=== PATIENT | female | born 1945 | race Caucasian/White ===

== ENCOUNTER 2018-11-06 11:15 | Outpatient (CLI) | payer MEDICARE ==
--- NOTE | 2018-11-06 15:33 | XRAY Report ---
Reason: JOINT PAIN Procedure Date: 11/06/2018 Accession Number: [id number] / [id number] Procedure: WCP - Hip w/Pelvis 2-3V RT CPT Code: FULL RESULT: EXAM: RIGHT HIP RADIOGRAPHY. EXAM DATE: 11/06/2018 11:27 AM. CLINICAL HISTORY: Chronic right hip pain. COMPARISON: None. TECHNIQUE: 2 views. FINDINGS: Bones: No acute fracture identified. 2.5 cm geographic sclerosis of the right iliac bone adjacent to the inferior SI joint. Joints: Asymmetric joint space narrowing and mild marginal osteophyte of the right femoral head and acetabulum. Soft Tissues: Normal. No soft tissue swelling. IMPRESSION: 1. Asymmetric degenerative arthritis of the right hip. 2. Nonspecific 2.5 cm sclerotic focus in the right medial iliac bone as described. Finding is indeterminate between bone island versus a sclerotic lesion. Lacking comparison studies to confirm long-term stability, consider follow-up imaging in 6-12 months to assess for imaging stability. RADIA
== END 2018-11-06 11:16 | disposition home or self-care (01) ==
LOC: DI.WCP 11:15
PROVIDERS: ATTEND Physician Assistant
DX: M16.11 Unilateral primary osteoarthritis, right hip (principal); E78.5 Hyperlipidemia, unspecified; E11.9 Type 2 diabetes mellitus without complications; M25.50 Pain in unspecified joint
CPT/HCPCS: 36415; 80053; 80061; 83036; 83721; 85025; 85651

== ENCOUNTER 2018-11-06 11:33 | Outpatient (CLI) | payer MEDICARE ==
[2018-11-06 19:16] LABS: BASOPHILS # (AUTO) 0.1 10^3/uL (0.0-0.1); BASOPHILS % (AUTO) 0.5 %; EOSINOPHILS # (AUTO) 0.1 10^3/uL (0.0-0.7); EOSINOPHILS % (AUTO) 0.9 %; HGB - HEMOGLOBIN 15.8 g/dL (12.0-16.0); LYMPHOCYTES # (AUTO) 2.6 10^3/uL (1.5-3.5); LYMPHOCYTES % (AUTO) 20.7 %; MEAN CORPUSCULAR HEMOGLOBIN 29.8 pg (27.0-31.0); MEAN CORPUSCULAR HGB CONC 32.8 g/dL (32.0-36.0); MEAN CORPUSCULAR VOLUME 90.7 fL (81.0-99.0); MEAN PLATELET VOLUME 10.8 fL (7.9-10.8); MONOCYTES # (AUTO) 0.7 10^3/uL (0.0-1.0); MONOCYTES % (AUTO) 5.6 %; NEUTROPHILS % (AUTO) 72.3 %; PLT - PLATELET COUNT 266 10^3/uL (130-450); RED BLOOD COUNT 5.29 10^6/uL (4.20-5.40); RED CELL DISTRIBUTION WIDTH 13.4 % (12.0-15.0); WHITE BLOOD COUNT 12.5 x10^3/uL (4.8-10.8)
[2018-11-06 19:39] LABS: ALBUMIN/GLOBULIN RATIO 1.1 (1.0-2.2); ALKALINE PHOSPHATASE 96 IU/L (42-121); ALT ALANINE AMINOTRANSFERASE 16 IU/L (10-60); AST ASPARTATE AMINOTRANSFERASE 18 IU/L (10-42); BILIRUBIN,TOTAL 1.2 mg/dL (0.2-1.0); BUN - BLOOD UREA NITROGEN 16 mg/dL (6-20); CALCIUM 9.5 mg/dL (8.5-10.3); CARBON DIOXIDE - CO2 28 mmol/L (21-32); CHLORIDE 97 mmol/L (101-111); CHOL/HDL RATIO 4.6 (<4.4); CHOLESTEROL 245 mg/dL; CREATININE 0.8 mg/dL (0.4-1.0); GFR - MDRD 71 (>89); GLUCOSE 360 mg/dL (70-100); HDL CHOLESTEROL 53 mg/dL; LDL CHOLESTEROL,CALCULATED 154 mg/dL; LDL/HDL RATIO 2.9 (<4.4); SODIUM 137 mmol/L (135-145); TOTAL PROTEIN 7.5 g/dL (6.7-8.2); VLDL CHOLESTEROL 38 mg/dL
[2018-11-06 20:07] LABS: HB2 TOTAL 17.4 g/dL; HEMOGLOBIN A1C 1.71 g/dL; HEMOGLOBIN A1C % 11.1 % (4.6-6.2)
== END 2018-11-06 11:34 | disposition home or self-care (01) ==
LOC: LAB.WCP 11:33
PROVIDERS: ATTEND Physician Assistant
DX: E78.5 Hyperlipidemia, unspecified (principal); E11.9 Type 2 diabetes mellitus without complications; M25.50 Pain in unspecified joint
CPT/HCPCS: 36415; 80053; 80061; 83036; 83721; 85025; 85651

== ENCOUNTER 2018-11-07 09:02 | Outpatient (CLI) | payer MEDICARE | END 2018-11-07 09:03 | disposition home or self-care (01) | LOC: DI 09:02 | PROVIDERS: ATTEND Physician Assistant | DX: R42 Dizziness and giddiness (principal); I10 Essential (primary) hypertension; I51.7 Cardiomegaly | CPT/HCPCS: 93306 ==

== ENCOUNTER 2018-11-10 20:18 | Outpatient (CLI) | payer MEDICARE | END 2018-11-10 20:19 | disposition critical access hospital (66) | LOC: EMS 20:18 | PROVIDERS: ATTEND Surgery | DX: R53.1 Weakness (principal); R06.02 Shortness of breath; E11.9 Type 2 diabetes mellitus without complications; Z79.4 Long term (current) use of insulin | CPT/HCPCS: A0425; A0427 ==

== ENCOUNTER 2018-11-10 20:35 | Emergency (ER) | payer MEDICARE ==
[2018-11-10 21:11] LABS: VBG PCO2 33.4 mmHg (41-51); VBG PH 7.46 (7.31-7.41); VBG PO2 51.5 mmHg (25-47)
[2018-11-10 21:12] LABS: VBG BASE EXCESS 0.2 mmol/L (-2 - +2); VBG TOTAL CO2 24.2 mmol/L (24-29)
[2018-11-10 21:15] LABS: BASOPHILS # (AUTO) 0.1 10^3/uL (0.0-0.1); BASOPHILS % (AUTO) 0.8 %; EOSINOPHILS # (AUTO) 0.1 10^3/uL (0.0-0.7); EOSINOPHILS % (AUTO) 1.5 %; HGB - HEMOGLOBIN 15.2 g/dL (12.0-16.0); LYMPHOCYTES # (AUTO) 2.6 10^3/uL (1.5-3.5); LYMPHOCYTES % (AUTO) 28.1 %; MEAN CORPUSCULAR HEMOGLOBIN 29.9 pg (27.0-31.0); MEAN CORPUSCULAR VOLUME 90.8 fL (81.0-99.0); MEAN PLATELET VOLUME 10.1 fL (7.9-10.8); MONOCYTES # (AUTO) 0.5 10^3/uL (0.0-1.0); MONOCYTES % (AUTO) 5.2 %; NEUTROPHILS # (AUTO) 5.9 10^3/uL (1.5-6.6); NEUTROPHILS % (AUTO) 64.4 %; PLT - PLATELET COUNT 193 10^3/uL (130-450); RED BLOOD COUNT 5.08 10^6/uL (4.20-5.40); RED CELL DISTRIBUTION WIDTH 13.3 % (12.0-15.0); WHITE BLOOD COUNT 9.1 x10^3/uL (4.8-10.8)
[2018-11-10 21:24] LABS: ALBUMIN 3.8 g/dL (3.2-5.5); ALBUMIN/GLOBULIN RATIO 1.2 (1.0-2.2); BILIRUBIN,TOTAL 0.6 mg/dL (0.2-1.0); CALCIUM 9.1 mg/dL (8.5-10.3); CREATININE 0.7 mg/dL (0.4-1.0); TOTAL PROTEIN 7.1 g/dL (6.7-8.2)
[2018-11-10 21:31] LABS: INR 1.1 (0.8-1.2); PT - PROTHROMBIN TIME 12.5 secs (9.9-12.6)
--- NOTE | 2018-11-10 21:33 | XRAY Report ---
Reason: cough Procedure Date: 11/10/2018 Accession Number: [id number] / [id number] Procedure: XR - Chest 1 View X-Ray CPT Code: 84768 FULL RESULT: EXAM: CHEST RADIOGRAPHY EXAM DATE: 11/10/2018 09:16 PM. CLINICAL HISTORY: Cough and shortness of breath for 3 weeks. COMPARISON: None. TECHNIQUE: 1 view. FINDINGS: Lungs/Pleura: No focal opacities evident. No pleural effusion. No pneumothorax. Mediastinum: Within exam limitations, the cardiomediastinal contour is normal. Other: None. IMPRESSION: Normal single view chest. RADIA
[2018-11-10 21:37] LABS: BILIRUBIN,URINE NEGATIVE (NEGATIVE); GLUCOSE, URINE (UA) >=1000 mg/dL (NEGATIVE); KETONES,URINE (UA) NEGATIVE (NEGATIVE); LEUKOCYTE ESTERASE, URINE NEGATIVE (NEGATIVE); NITRITE,URINE NEGATIVE (NEGATIVE); OCCULT BLOOD,URINE SMALL (NEGATIVE); PH,URINE 5.5 PH (5.0-7.5); PROTEIN,URINE NEGATIVE (NEGATIVE); UROBILINOGEN,URINE 0.2 (NORMAL) E.U./dL (NORMAL)
[2018-11-10 21:41] LABS: CLARITY,URINE CLEAR (CLEAR)
[2018-11-10 21:44] LABS: BACTERIA,URINE Many /HPF (None Seen); RBC,URINE 0-5 /HPF (0-5); SQUAMOUS EPITHELIAL CELL,UR MOD Squamous (<= Few)
[2018-11-10] MEDS ORDERED: INSULIN REGULAR HUMAN 100 UNIT/1 ML 10 ML MDV IVP STA (22:18)
[2018-11-10] MEDS ORDERED: cloNIDine 0.1 MG TABLET PO STA (22:21)
[2018-11-10] MEDS ORDERED: ONDANSETRON 4 MG/2 ML VIAL IVP STA (22:21)
[2018-11-10] MEDS ORDERED: SODIUM CHLORIDE 0.9% 1,000 ML IV ONE (22:21)
[2018-11-10] MEDS ORDERED: LISINOPRIL 5 MG TABLET PO STA (22:21)
--- NOTE | 2018-11-10 23:55 | ED Physician Documentation ---
History of Present Illness - Stated complaint Stated Complaint: NOT FEELING WELL - Chief complaint Chief Complaint: General - History obtained from History obtained from: Patient - History of Present Illness Timing: How many hours ago (1) Pain level max: 0 Pain level now: 0 Severity Comments: mild Quality: weak Radiates to: none Improved by: nothing Worsened by: nothing Associated symptoms: lightheadedness, high blood pressure, no chest pain, no shortness of breath, no nausea, no diaphoresis Review of Systems Constitutional: reports: Reviewed and negative Eyes: reports: Reviewed and negative Ears: reports: Reviewed and negative Nose: reports: Reviewed and negative Throat: reports: Reviewed and negative Cardiac: reports: Reviewed and negative Respiratory: reports: Reviewed and negative GI: reports: Reviewed and negative : reports: Reviewed and negative Skin: reports: Reviewed and negative Musculoskeletal: reports: Reviewed and negative Neurologic: reports: Reviewed and negative Psychiatric: reports: Reviewed and negative Endocrine: reports: Reviewed and negative Immunocompromised: reports: Reviewed and negative PD PAST MEDICAL HISTORY - Past Medical History Past Medical History: Yes Cardiovascular: Hypertension Endocrine/Autoimmune: Type 2 diabetes Psych: Depression Musculoskeletal: Osteoarthritis, Fibromyalgia Other Past Medical History: Reviewed - Past Surgical History Past Surgical History: Yes Ortho: Knee replacement Other past surgical history: Reviewed - Present Medications Home Medications: Ambulatory Orders Medication Instructions Recorded Confirmed Atorvastatin Calcium 40 mg PO QPM 11/10/18 11/10/18 Insulin Glargine [Lantus Solostar] 10 units SQ QPM 11/10/18 11/10/18 Lisinopril 10 mg PO QPM 11/10/18 11/10/18 Meloxicam 15 mg PO QPM 11/10/18 11/10/18 - Allergies Allergies/Adverse Reactions: Allergies Allergy/AdvReac Type Severity Reaction Status Date / Time Penicillins Allergy Anaphylaxis Verified 11/10/18 20:38 - Social History Does the pt smoke?: No Smoking Status: Never smoker Does the pt drink ETOH?: Yes ETOH Use: Wine Does the pt have substance abuse?: No - Family History Family history: reports: Other (Reviewed and not pertinent) PD ED PE NORMAL - Vitals Vital signs reviewed: Yes - General General: Alert and oriented X 3, No acute distress - HEENT HEENT: PERRL - Neck Neck: Supple, no meningeal sign - Cardiac Cardiac: RRR, No murmur - Respiratory Respiratory: Clear bilaterally - Abdomen Abdomen: Normal bowel sounds, Soft, Non tender, Non distended - Derm Derm: Warm and dry - Extremities Extremities: No deformity - Neuro Neuro: Alert and oriented X 3 - Psych Psych: Normal mood, Normal affect Results - Vitals Vitals: Vital Signs - 24 hr 11/10/18 11/10/18 11/10/18 20:38 20:46 21:10 Temperature 36.5 C Heart Rate 94 88 79 Respiratory 18 18 16 Rate Blood Pressure 174/78 H 174/78 H 196/107 H O2 Saturation 97 97 96 11/10/18 11/10/18 11/10/18 22:28 22:33 23:21 Temperature Heart Rate 76 73 82 Respiratory 20 13 17 Rate Blood Pressure 175/83 H 173/78 H 166/83 H O2 Saturation 95 95 95 Oxygen O2 Source Room air - Labs Labs: Laboratory Tests 11/10/18 11/10/18 11/10/18 21:05 21:05 21:05 WBC 9.1 RBC 5.08 Hgb 15.2 Hct 46.1 MCV 90.8 MCH 29.9 MCHC 33.0 RDW 13.3 Plt Count 193 MPV 10.1 Neut # (Auto) 5.9 Lymph # (Auto) 2.6 [place] # (Auto) 0.5 Eos # (Auto) 0.1 Baso # (Auto) 0.1 Absolute Nucleated RBC 0.01 Nucleated RBC % 0.1 PT 12.5 INR 1.1 VBG pH VBG pCO2 VBG pO2 VBG HCO3 VBG Total CO2 VBG O2 Saturation VBG Base Excess Sodium 137 Potassium 3.9 Chloride 101 Carbon Dioxide 25 Anion Gap 11.0 BUN 21 H Creatinine 0.7 Estimated GFR (MDRD) 83 L Glucose 400 H Lactic Acid Calcium 9.1 Total Bilirubin 0.6 AST 16 ALT 14 Alkaline Phosphatase 106 Troponin I Total Protein 7.1 Albumin 3.8 Globulin 3.3 Albumin/Globulin Ratio 1.2 Lipase 33 Urine Color Urine Clarity Urine pH Ur Specific [place] Urine Protein Urine Glucose (UA) Urine Ketones Urine Occult Blood Urine Nitrite Urine Bilirubin Urine Urobilinogen Ur Leukocyte Esterase Urine RBC Urine WBC Ur Squamous Epith Cells Urine Bacteria Ur Microscopic Review Urine Culture Comments 11/10/18 11/10/18 11/10/18 21:05 21:05 21:05 WBC RBC Hgb Hct MCV MCH MCHC RDW Plt Count MPV Neut # (Auto) Lymph # (Auto) [place] # (Auto) Eos # (Auto) Baso # (Auto) Absolute Nucleated RBC Nucleated RBC % PT INR VBG pH 7.460 H VBG pCO2 33.4 L VBG pO2 51.5 H VBG HCO3 23.2 VBG Total CO2 24.2 VBG O2 Saturation 88.1 H VBG Base Excess 0.2 Sodium Potassium Chloride Carbon Dioxide Anion Gap BUN Creatinine Estimated GFR (MDRD) Glucose Lactic Acid 1.7 Calcium Total Bilirubin AST ALT Alkaline Phosphatase Troponin I < 0.04 Total Protein Albumin Globulin Albumin/Globulin Ratio Lipase Urine Color Urine Clarity Urine pH Ur Specific [place] Urine Protein Urine Glucose (UA) Urine Ketones Urine Occult Blood Urine Nitrite Urine Bilirubin Urine Urobilinogen Ur Leukocyte Esterase Urine RBC Urine WBC Ur Squamous Epith Cells Urine Bacteria Ur Microscopic Review Urine Culture Comments 11/10/18 11/10/18 21:30 23:15 WBC RBC Hgb Hct MCV MCH MCHC RDW Plt Count MPV Neut # (Auto) Lymph # (Auto) [place] # (Auto) Eos # (Auto) Baso # (Auto) Absolute Nucleated RBC Nucleated RBC % PT INR VBG pH VBG pCO2 VBG pO2 VBG HCO3 VBG Total CO2 VBG O2 Saturation VBG Base Excess Sodium Potassium Chloride Carbon Dioxide Anion Gap BUN Creatinine Estimated GFR (MDRD) Glucose Lactic Acid Calcium Total Bilirubin AST ALT Alkaline Phosphatase Troponin I < 0.04 Total Protein Albumin Globulin Albumin/Globulin Ratio Lipase Urine Color YELLOW Urine Clarity CLEAR Urine pH 5.5 Ur Specific [place] 1.015 Urine Protein NEGATIVE Urine Glucose (UA) >=1000 H Urine Ketones NEGATIVE Urine Occult Blood SMALL H Urine Nitrite NEGATIVE Urine Bilirubin NEGATIVE Urine Urobilinogen 0.2 (NORMAL) Ur Leukocyte Esterase NEGATIVE Urine RBC 0-5 Urine WBC 4-5 Ur Squamous Epith Cells MOD Squamous H Urine Bacteria Many H Ur Microscopic Review INDICATED Urine Culture Comments NOT INDICATED PD MEDICAL DECISION MAKING - ED course Complexity details: reviewed results, re-evaluated patient, considered differential, d/w patient, d/w family ED course: 72-year-old female presents with generalized weakness. Blood sugar and glucose are elevated. EKG, chest x-ray, serial troponins unremarkable. No clinical evidence of infection. Patient felt better after blood pressure and glucose were controlled. Discharged with primary care follow-up. No evidence of ACS, PE, dissection or other acute process. Departure - Departure Disposition: 01 Home, Self Care Clinical Impression: Blood glucose elevated, Elevated blood pressure reading Instructions: Hypertension Control, Hyperglycemia Follow-Up: Brandi Garvey PA [Primary Care Provider] - Comments: Follow-up with PCP within 24 hours. Return with worsening symptoms.
[2018-11-11 00:06] VITALS: BP 141/83
== END 2018-11-11 00:14 | disposition home or self-care (01) ==
LOC: EDBD → EDUNIT# → ED 20:35
DX: E11.65 Type 2 diabetes mellitus with hyperglycemia (principal); I10 Essential (primary) hypertension; Z79.4 Long term (current) use of insulin; Z96.659 Presence of unspecified artificial knee joint
CPT/HCPCS: 36415; 71045; 80053; 81001; 82803; 83605; 83690; 84484; 85025; 85610; 87040; 93005; 96361; 96374; 99283; 99284; A9270; J1815; 81003; 87086

== ENCOUNTER 2018-11-20 08:00 | Outpatient (CLI) | payer MEDICARE ==
[2018-11-20 19:16] LABS: ALBUMIN 3.6 g/dL (3.2-5.5); BILIRUBIN,TOTAL 0.9 mg/dL (0.2-1.0); CALCIUM 9.1 mg/dL (8.5-10.3); CREATININE 0.7 mg/dL (0.4-1.0); TOTAL PROTEIN 7.3 g/dL (6.7-8.2)
[2018-11-20 19:47] LABS: BASOPHILS % (AUTO) 0.2 %; EOSINOPHILS # (AUTO) 0.1 10^3/uL (0.0-0.7); HGB - HEMOGLOBIN 15.1 g/dL (12.0-16.0); LYMPHOCYTES # (AUTO) 2.4 10^3/uL (1.5-3.5); LYMPHOCYTES % (AUTO) 20.9 %; MEAN CORPUSCULAR HEMOGLOBIN 30.2 pg (27.0-31.0); MEAN CORPUSCULAR HGB CONC 33.2 g/dL (32.0-36.0); MEAN PLATELET VOLUME 10.6 fL (7.9-10.8); MONOCYTES # (AUTO) 0.6 10^3/uL (0.0-1.0); MONOCYTES % (AUTO) 5.6 %; NEUTROPHILS # (AUTO) 8.4 10^3/uL (1.5-6.6); NEUTROPHILS % (AUTO) 72.3 %; PLT - PLATELET COUNT 258 10^3/uL (130-450); RED BLOOD COUNT 4.99 10^6/uL (4.20-5.40); RED CELL DISTRIBUTION WIDTH 13.2 % (12.0-15.0); WHITE BLOOD COUNT 11.6 x10^3/uL (4.8-10.8)
== END 2018-11-20 08:01 | disposition home or self-care (01) ==
LOC: LAB.WCP 08:00
PROVIDERS: ATTEND Physician Assistant
DX: E11.9 Type 2 diabetes mellitus without complications (principal)
CPT/HCPCS: 36415; 80053; 85025

== ENCOUNTER 2018-11-30 16:24 | Outpatient (CLI) | payer MEDICARE ==
[2018-11-30] MEDS ORDERED: GADOBUTROL 10 MMOL/10 ML VIAL ONE (17:10)
[2018-11-30] MEDS ORDERED: GADOBUTROL 10 MMOL/10 ML VIAL IVP ONE (18:40)
--- NOTE | 2018-12-01 04:02 | MRI Report ---
Reason: TIA,HX OF SYNCOPE AND COLLAPSE Procedure Date: 11/30/2018 Accession Number: [id number] / [id number] Procedure: MRI - Brain W/WO CPT Code: FULL RESULT: EXAM: MRI BRAIN WITHOUT AND WITH CONTRAST EXAM DATE: 11/30/2018 05:37 PM. CLINICAL HISTORY: TIA,HX OF SYNCOPE AND COLLAPSE. COMPARISON: None. TECHNIQUE: Multiplanar, multisequence T1-weighted and fluid-sensitive MR sequences of the brain were performed. Sequences optimized for routine evaluation. Other: None. IV Contrast: Gadavist 10 mL.. FINDINGS: Brain Volume: Normal for age. Parenchyma: No acute hemorrhage, mass, or infarct. There is moderate chronic microvascular ischemic change scattered in the periventricular, deep, and subcortical white matter of both cerebral hemispheres and in the kirill. No restricted diffusion. No abnormal enhancement. Ventricles/Cisterns: No hydrocephalus. No abnormal extra-axial fluid collection or hemorrhage. Orbits: Symmetric and unremarkable. Sella [place]: Unremarkable. IAC: Symmetric and unremarkable. Vasculature: Normal signal flow void is seen in the major arterial structures at the skull base. The dural sinuses are patent and enhance normally. Sinuses: No acute sinus disease. Bones: No focal pathologic appearing marrow signal changes. Other: None. IMPRESSION: 1. No acute intracranial abnormality. 2. Moderate chronic microvascular ischemic change. Otherwise unremarkable MRI brain without and with contrast. 3. No intracranial mass lesion, mass-effect, hydrocephalus, or abnormal enhancement. [facility]
--- NOTE | 2018-12-01 04:08 | MRI Report ---
Reason: TIA,HX OF SYNCOPE AND COLLAPSE Procedure Date: 11/30/2018 Accession Number: [id number] / [id number] Procedure: MRI - Angio Brain W/O (MRA) CPT Code: FULL RESULT: EXAM MRA BRAIN EXAM DATE: 11/30/2018 05:04 PM. CLINICAL HISTORY: TIA,HX OF SYNCOPE AND COLLAPSE. COMPARISON: None. TECHNIQUE: Multiplanar, multisequence MRA sequences of the brain were performed. Other: None. Post-processing: Multiplanar 3D MIP reconstructions. IV Contrast: None. FINDINGS: The petrous, cavernous, and supraclinoid segments of both internal carotid arteries are patent without evidence of stenosis. The middle cerebral and anterior cerebral artery distributions are patent and unremarkable bilaterally. Both vertebral arteries join to form the basilar artery. The distal vertebral and basilar arteries are patent and appear normal in caliber. The posterior cerebral arteries and remainder of the posterior circulation are unremarkable. No evidence of large vessel occlusion or intracranial stenosis. No aneurysm or AVM is identified. IMPRESSION: 1. Normal MRA of intracranial circulation. [facility]
--- NOTE | 2018-12-01 04:14 | MRI Report ---
Reason: TIA,HX OF SYNCOPE AND COLLAPSE Procedure Date: 11/30/2018 Accession Number: [id number] / [id number] Procedure: MRI - Angio Neck W/WO (MRA) CPT Code: FULL RESULT: EXAM: MR ANGIOGRAM NECK WITHOUT AND WITH CONTRAST EXAM DATE: 11/30/2018 06:06 PM. CLINICAL HISTORY: TIA,HX OF SYNCOPE AND COLLAPSE. COMPARISON: None. TECHNIQUE: Multiplanar, multisequence MRA sequences of the neck were performed. Other: None. Post-processing: Multiplanar 3D MIP reconstructions. IV Contrast: Gadavist 10 mL.. Evaluation of arterial stenosis is based on a NASCET method of measurement. FINDINGS: Aortic arch: Visualized aortic arch is unremarkable. Great vessels are patent and appear normal. Right carotid artery: The common carotid, internal carotid, and external carotid arteries are widely patent. No evidence of stenosis or dissection present Left carotid artery: The common carotid, internal carotid, and external carotid arteries are widely patent. No evidence of stenosis or dissection. Vertebral arteries: Both vertebral arteries are patent and contribute to the basilar artery. Left vertebral artery is dominant. No evidence of vertebral artery stenosis or dissection. There is moderate enlargement of the right thyroid lobe. No definite focal lesions are identified. This may represent unilateral goiter. This could be better assessed with a thyroid sonogram. IMPRESSION: 1. Normal MRA neck. No evidence of carotid or vertebral artery stenosis or dissection. 2. Moderate asymmetric enlargement of right thyroid lobe. This may represent unilateral goiter. This could be better assessed with a thyroid sonogram. [facility]
== END 2018-11-30 16:25 | disposition home or self-care (01) ==
LOC: DI 16:24
PROVIDERS: ATTEND Physician Assistant
DX: G45.9 Transient cerebral ischemic attack, unspecified (principal); R55 Syncope and collapse; E04.9 Nontoxic goiter, unspecified
CPT/HCPCS: 70544; 70549; 70553; A9585

== ENCOUNTER 2019-04-29 08:00 | Outpatient (CLI) | payer MEDICAID, MEDICARE ==
[2019-04-29 12:45] LABS: BASOPHILS % (AUTO) 0.5 %; EOSINOPHILS # (AUTO) 0.2 10^3/uL (0.0-0.7); EOSINOPHILS % (AUTO) 2.7 %; HGB - HEMOGLOBIN 13.4 g/dL (12.0-16.0); LYMPHOCYTES # (AUTO) 3.4 10^3/uL (1.5-3.5); MEAN CORPUSCULAR HEMOGLOBIN 30.5 pg (27.0-31.0); MEAN CORPUSCULAR HGB CONC 32.6 g/dL (32.0-36.0); MEAN CORPUSCULAR VOLUME 93.4 fL (81.0-99.0); MEAN PLATELET VOLUME 11.9 fL (7.9-10.8); MONOCYTES # (AUTO) 0.6 10^3/uL (0.0-1.0); MONOCYTES % (AUTO) 7.3 %; PLT - PLATELET COUNT 241 10^3/uL (130-450); RED CELL DISTRIBUTION WIDTH 12.7 % (12.0-15.0); WHITE BLOOD COUNT 8.3 x10^3/uL (4.8-10.8)
[2019-04-29 13:03] LABS: ALBUMIN 3.5 g/dL (3.2-5.5); ALKALINE PHOSPHATASE 88 IU/L (42-121); ALT ALANINE AMINOTRANSFERASE 15 IU/L (10-60); AST ASPARTATE AMINOTRANSFERASE 14 IU/L (10-42); BILIRUBIN,TOTAL 0.8 mg/dL (0.2-1.0); BUN - BLOOD UREA NITROGEN 25 mg/dL (6-20); CARBON DIOXIDE - CO2 25 mmol/L (21-32); CHLORIDE 105 mmol/L (101-111); CHOL/HDL RATIO 2.6 (<4.4); CHOLESTEROL 138 mg/dL; CREATININE 0.7 mg/dL (0.4-1.0); GFR - MDRD 82 (>89); GLUCOSE 174 mg/dL (70-100); HDL CHOLESTEROL 53 mg/dL; LDL CHOLESTEROL,CALCULATED 62 mg/dL; LDL/HDL RATIO 1.2 (<4.4); SODIUM 139 mmol/L (135-145); TOTAL PROTEIN 7.1 g/dL (6.7-8.2); VLDL CHOLESTEROL 23 mg/dL
[2019-04-29 13:06] LABS: HB2 TOTAL 13.7 g/dL; HEMOGLOBIN A1C 0.77 g/dL; HEMOGLOBIN A1C % 7.3 % (4.6-6.2)
== END 2019-04-29 23:59 | disposition home or self-care (01) ==
LOC: LAB.WCP 08:00
PROVIDERS: ATTEND Physician Assistant
DX: E11.9 Type 2 diabetes mellitus without complications (principal); E78.5 Hyperlipidemia, unspecified
CPT/HCPCS: 36415; 80053; 80061; 83036; 83721; 85025

== ENCOUNTER 2019-07-21 15:30 | Outpatient (CLI) | payer MEDICARE | END 2019-07-21 23:59 | disposition home or self-care (01) | LOC: LAB 15:30 | PROVIDERS: ATTEND Physician Assistant | DX: R30.0 Dysuria (principal) | CPT/HCPCS: 81002; 87086; 87181 ==

== ENCOUNTER 2019-08-14 17:08 | Outpatient (CLI) | payer MEDICARE ==
[2019-08-14 17:43] LABS: CALCIUM 9.1 mg/dL (8.5-10.3); CREATININE 0.8 mg/dL (0.4-1.0)
[2019-08-14] MEDS ORDERED: GADOBUTROL 15 MMOL/15 ML VIAL ONE (18:36)
[2019-08-14] MEDS ORDERED: GADOBUTROL 15 MMOL/15 ML VIAL IVP ONE (18:53)
--- NOTE | 2019-08-15 08:09 | MRI Report ---
Reason: RT MEDIAL ILIAC BONE LESION Procedure Date: 08/14/2019 Accession Number: [id number] / [id number] Procedure: MRI - Pelvis W/WO CPT Code: Final Report FULL RESULT: EXAM: MRI PELVIS WITHOUT AND WITH CONTRAST EXAM DATE: 08/14/2019 07:14 PM. CLINICAL HISTORY: Right medial iliac bone lesion on x-ray. COMPARISON: HIP W/PELVIS 2-3V RT 11/06/2018 11:11 AM. TECHNIQUE: Multiplanar, multisequence T1-weighted and fluid-sensitive sequences of the pelvis before and after administration of intravenous contrast. IV contrast: 12 mL of Gadavist. Other: None. FINDINGS: Bones: There is a focal low T1, low T2 signal nonenhancing lesion in the medial aspect of the right ilium adjacent to the sacroiliac joint consistent with an osteoma. There are no foci of marrow edema or enhancing marrow lesions to suggest neoplastic pathology. Lower Lumbar Spine: Endplate osteophytes are visible at L4-L5 and L5-S1 consistent with degenerative change. Sacroiliac Joints: The sacroiliac joints appear unremarkable. There is moderate erosion of the hyaline cartilage of the right hip with acetabular and femoral head osteophyte formation. There are milder changes on the left. The findings are consistent with bilateral osteoarthritis worse on the right. Symphysis Pubis: Unremarkable. Musculature: There is moderate fatty atrophy of the glutei. Pelvic Cavity: The visualized bowel, bladder, and reproductive organs are unremarkable. No lymphadenopathy. No free fluid in the pelvis. Other: The visualized sciatic nerves are unremarkable. No bursitis. The subcutaneous tissues are unremarkable. No abscess or cellulitis. IMPRESSION: 1. 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 2. Moderate degenerative change at the L4-L5 and L5-S1 levels. 3. Moderate right hip osteoarthritis. Mild left hip osteoarthritis. 4. Moderate atrophy of the glutei. RADIA
== END 2019-08-14 17:09 | disposition home or self-care (01) ==
LOC: LAB 17:08
PROVIDERS: ATTEND Physician Assistant
DX: E11.9 Type 2 diabetes mellitus without complications (principal); D16.8 Benign neoplasm of pelvic bones, sacrum and coccyx
CPT/HCPCS: 36415; 72197; 80048; A9585; 87086

== ENCOUNTER 2019-10-27 13:42 | Outpatient (CLI) | payer MEDICARE ==
[2019-10-27] MEDS ORDERED: IOTHALAMATE MEGLUMINE 50 ML VIAL ONE (14:17)
[2019-10-27] MEDS ORDERED: BUFFERED LIDOCAINE 10 ML SYRINGE ONE (14:17)
[2019-10-27] MEDS ORDERED: BUFFERED LIDOCAINE 10 ML SYRINGE IU ONE (16:15)
[2019-10-27] MEDS ORDERED: IOTHALAMATE MEGLUMINE 50 ML VIAL IVP ONE (16:15)
[2019-10-27] MEDS ORDERED: ROPIVACAINE 0.5% PF 20 ML AMPULE EP ONE (16:15)
[2019-10-27] MEDS ORDERED: TRIAMCINOLONE 40 MG/ML VIAL IM ONE (16:15)
--- NOTE | 2019-10-28 13:54 | XRAY Report ---
Reason: RT HIP JOINT PAIN Procedure Date: 10/27/2019 Accession Number: [id number] / [id number] Procedure: FL - Inj/Aspiration Major Joint CPT Code: Final Report FULL RESULT: EXAM: RIGHT HIP STEROID INJECTION WITH FLUOROSCOPIC GUIDANCE EXAM DATE: 10/27/2019 02:30 PM. CLINICAL HISTORY: Right hip joint pain. COMPARISON: None. TECHNIQUE: The risks, benefits, and alternatives of the procedure were discussed with the patient. All questions were answered. Written and verbal consent were obtained. The hip joint was marked under fluoroscopy and prepped and draped in a sterile manner. Local anesthesia was performed with 1% lidocaine. A 22-gauge needle was then inserted into the hip joint, positioning was confirmed by injection of a small quantity of iodinated contrast, Conray. 5 mL of a solution containing 0.5% ropivacaine, 4 mL and 1 mL of 40 mg triamcinolone was then injected. The needle was removed without immediate complication. Other: None. Fluoroscopy Time: 0.1 minutes. Number of Images: 3. FINDINGS: Bones and Joints: No fracture or subluxation. Injection: Fluoroscopic images demonstrate needle placement and contrast in the hip joint. IMPRESSION: Successful fluoroscopically guided steroid injection of the hip. RADIA
== END 2019-10-27 13:43 | disposition home or self-care (01) ==
LOC: DI 13:42
PROVIDERS: ATTEND Orthopaedic Surgery Sports Medicine
DX: M25.551 Pain in right hip (principal)
CPT/HCPCS: 20610; Q9961

== ENCOUNTER 2019-11-12 17:06 | Outpatient (CLI) | payer MEDICARE | END 2019-11-12 17:07 | disposition home or self-care (01) | LOC: COV 17:06 | PROVIDERS: ATTEND Family Medicine | DX: R05 Cough (principal) ==

== ENCOUNTER 2020-02-16 10:30 | Outpatient (CLI) | payer MEDICARE ==
[2020-02-16 12:50] LABS: BASOPHILS % (AUTO) 0.4 %; EOSINOPHILS # (AUTO) 0.2 10^3/uL (0.0-0.7); EOSINOPHILS % (AUTO) 2.2 %; HGB - HEMOGLOBIN 12.8 g/dL (12.0-16.0); LYMPHOCYTES # (AUTO) 2.7 10^3/uL (1.5-3.5); LYMPHOCYTES % (AUTO) 28.1 %; MEAN CORPUSCULAR HEMOGLOBIN 29.5 pg (27.0-31.0); MEAN CORPUSCULAR HGB CONC 31.4 g/dL (32.0-36.0); MEAN CORPUSCULAR VOLUME 93.8 fL (81.0-99.0); MEAN PLATELET VOLUME 11.7 fL (7.9-10.8); MONOCYTES # (AUTO) 0.7 10^3/uL (0.0-1.0); MONOCYTES % (AUTO) 7.3 %; NEUTROPHILS # (AUTO) 5.8 10^3/uL (1.5-6.6); NEUTROPHILS % (AUTO) 61.6 %; PLT - PLATELET COUNT 240 10^3/uL (130-450); RED BLOOD COUNT 4.34 10^6/uL (4.20-5.40); RED CELL DISTRIBUTION WIDTH 12.7 % (12.0-15.0); WHITE BLOOD COUNT 9.4 x10^3/uL (4.8-10.8)
[2020-02-16 12:59] LABS: ALBUMIN 3.7 g/dL (3.2-5.5); ALBUMIN/GLOBULIN RATIO 1.1 (1.0-2.2); BILIRUBIN,TOTAL 0.7 mg/dL (0.2-1.0); CALCIUM 8.7 mg/dL (8.5-10.3); CREATININE 0.8 mg/dL (0.4-1.0); TOTAL PROTEIN 7.1 g/dL (6.7-8.2)
[2020-02-16 13:15] LABS: HB2 TOTAL 13.6 g/dL; HEMOGLOBIN A1C 0.8 g/dL; HEMOGLOBIN A1C % 7.5 % (4.6-6.2)
== END 2020-02-16 23:59 | disposition home or self-care (01) ==
LOC: LAB.WCP 10:30
PROVIDERS: ATTEND Physician Assistant
DX: I10 Essential (primary) hypertension (principal); E11.9 Type 2 diabetes mellitus without complications
CPT/HCPCS: 36415; 80053; 83036; 85025

== ENCOUNTER 2020-05-10 12:21 | Emergency (ER) | payer MEDICARE ==
[2020-05-10 12:51] LABS: BASOPHILS % (AUTO) 0.3 %; EOSINOPHILS # (AUTO) 0.2 10^3/uL (0.0-0.7); EOSINOPHILS % (AUTO) 1.1 %; HGB - HEMOGLOBIN 14.1 g/dL (12.0-16.0); LYMPHOCYTES # (AUTO) 2.7 10^3/uL (1.5-3.5); MEAN CORPUSCULAR HEMOGLOBIN 30.3 pg (27.0-31.0); MEAN CORPUSCULAR HGB CONC 32.7 g/dL (32.0-36.0); MEAN CORPUSCULAR VOLUME 92.7 fL (81.0-99.0); MEAN PLATELET VOLUME 10.9 fL (7.9-10.8); MONOCYTES # (AUTO) 0.8 10^3/uL (0.0-1.0); MONOCYTES % (AUTO) 5.8 %; NEUTROPHILS # (AUTO) 10.4 10^3/uL (1.5-6.6); NEUTROPHILS % (AUTO) 73.1 %; PLT - PLATELET COUNT 279 10^3/uL (130-450); RED BLOOD COUNT 4.65 10^6/uL (4.20-5.40); RED CELL DISTRIBUTION WIDTH 13.1 % (12.0-15.0); WHITE BLOOD COUNT 14.2 x10^3/uL (4.8-10.8)
[2020-05-10 13:04] LABS: ALBUMIN 3.6 g/dL (3.2-5.5); ALBUMIN/GLOBULIN RATIO 0.9 (1.0-2.2); BILIRUBIN,TOTAL 0.6 mg/dL (0.2-1.0); CALCIUM 9.1 mg/dL (8.5-10.3); CREATININE 0.9 mg/dL (0.4-1.0); TOTAL PROTEIN 7.5 g/dL (6.7-8.2)
--- NOTE | 2020-05-10 13:34 | ED Physician Documentation ---
PD HPI ALTERED MENTAL STATUS - Stated complaint Stated Complaint: BODY PX, WEAKNESS - Chief complaint Chief Complaint: General - History obtained from History obtained from: Patient - History of Present Illness Timing - onset: How many weeks ago (1) Timing - duration: Weeks (1) Timing - details: Gradual onset, Still present (He has had a week of feeling general weakness and fatigue with some mild discomfort in the lower abdomen. She states normal bowel movement a couple of days ago and that helped some of the lower abdominal pains. Still persists with weakness and malaise.) Quality / character: Other (general weakness). No: Confused, Disoriented Contributing factors: Diabetic. No: Recent med change, Recent illness, Substance abuse Basline status: Alert and oriented X 3, Ambulatory Similar symptoms before: Has not had sx before Recently seen: Not recently seen Review of Systems Constitutional: reports: Myalgias, Fatigue. denies: Fever Nose: denies: Rhinorrhea / runny nose, Congestion Throat: denies: Sore throat Cardiac: denies: Chest pain / pressure Respiratory: denies: Dyspnea, Cough GI: reports: Nausea. denies: Abdominal Pain, Vomiting, Diarrhea : reports: Incontinent (chronically). denies: Dysuria Neurologic: reports: Generalized weakness. denies: Near syncope, Altered mental status, Headache PD PAST MEDICAL HISTORY - Past Medical History Cardiovascular: Hypertension Endocrine/Autoimmune: Type 2 diabetes Psych: Depression Musculoskeletal: Osteoarthritis, Fibromyalgia - Past Surgical History Past Surgical History: Yes Ortho: Knee replacement - Present Medications Home Medications: Ambulatory Orders Medication Instructions Recorded Confirmed Atorvastatin Calcium 40 mg PO QPM 11/10/18 11/10/18 Insulin Glargine [Lantus Solostar] 10 units SQ QPM 11/10/18 11/10/18 Meloxicam 15 mg PO QPM 11/10/18 11/10/18 lisinopriL [Lisinopril] 10 mg PO QPM 11/10/18 11/10/18 Cephalexin [Keflex] 500 mg PO Q6H #28 capsule 05/10/20 - Allergies Allergies/Adverse Reactions: Allergies Allergy/AdvReac Type Severity Reaction Status Date / Time Penicillins Allergy Anaphylaxis Verified 05/10/20 12:29 - Social History Does the pt smoke?: No Smoking Status: Never smoker Does the pt drink ETOH?: Yes Does the pt have substance abuse?: No PD ED PE NORMAL - Vitals Vital signs reviewed: Yes - General General: Alert and oriented X 3, No acute distress, Well developed/nourished - HEENT HEENT: Moist mucous membranes, Pharynx benign - Neck Neck: Supple, no meningeal sign, No adenopathy - Cardiac Cardiac: RRR, No murmur - Respiratory Respiratory: Clear bilaterally - Abdomen Abdomen: Soft, Non tender Results - Vitals Vitals: Vital Signs - 24 hr 05/10/20 05/10/20 05/10/20 12:29 14:30 15:22 Temperature 36.5 C 36.3 C L Heart Rate 88 78 82 Respiratory 16 18 18 Rate Blood Pressure 124/52 L 178/98 H 167/86 H O2 Saturation 97 98 98 Oxygen O2 Source Room air - Labs Labs: Laboratory Tests 05/10/20 05/10/20 05/10/20 12:45 12:45 12:45 WBC 14.2 H RBC 4.65 Hgb 14.1 Hct 43.1 MCV 92.7 MCH 30.3 MCHC 32.7 RDW 13.1 Plt Count 279 MPV 10.9 H Neut # (Auto) 10.4 H Lymph # (Auto) 2.7 [place] # (Auto) 0.8 Eos # (Auto) 0.2 Baso # (Auto) 0.0 Absolute Nucleated RBC 0.00 Nucleated RBC % 0.0 Sodium 138 Potassium 4.4 Chloride 98 L Carbon Dioxide 29 Anion Gap 11.0 BUN 24 H Creatinine 0.9 Estimated GFR (MDRD) 62 L Glucose 233 H Calcium 9.1 Total Bilirubin 0.6 AST 13 ALT 16 Alkaline Phosphatase 103 Troponin I High Sens C-Reactive Protein Total Protein 7.5 Albumin 3.6 Globulin 3.9 Albumin/Globulin Ratio 0.9 L Lipase 26 TSH 1.58 Urine Color Urine Clarity Urine pH Ur Specific [place] Urine Protein Urine Glucose (UA) Urine Ketones Urine Occult Blood Urine Nitrite Urine Bilirubin Urine Urobilinogen Ur Leukocyte Esterase Urine RBC Urine WBC Ur Squamous Epith Cells Urine Bacteria Ur Microscopic Review Urine Culture Comments 05/10/20 05/10/20 05/10/20 12:45 12:45 14:20 WBC RBC Hgb Hct MCV MCH MCHC RDW Plt Count MPV Neut # (Auto) Lymph # (Auto) [place] # (Auto) Eos # (Auto) Baso # (Auto) Absolute Nucleated RBC Nucleated RBC % Sodium Potassium Chloride Carbon Dioxide Anion Gap BUN Creatinine Estimated GFR (MDRD) Glucose Calcium Total Bilirubin AST ALT Alkaline Phosphatase Troponin I High Sens 4.0 C-Reactive Protein 1.0 Total Protein Albumin Globulin Albumin/Globulin Ratio Lipase TSH Urine Color YELLOW Urine Clarity CLEAR Urine pH 5.0 Ur Specific [place] >=1.030 H Urine Protein NEGATIVE Urine Glucose (UA) 100 H Urine Ketones NEGATIVE Urine Occult Blood TRACE-INTA Urine Nitrite POSITIVE H Urine Bilirubin NEGATIVE Urine Urobilinogen 0.2 (NORMAL) Ur Leukocyte Esterase NEGATIVE Urine RBC 0-5 Urine WBC 0-3 Ur Squamous Epith Cells FEW Squamous Urine Bacteria Moderate H Ur Microscopic Review INDICATED Urine Culture Comments INDICATED PD MEDICAL DECISION MAKING - ED course Complexity details: reviewed results, considered differential (has UTI, and that could account for general fatigue symptoms. ), d/w patient Departure - Departure Disposition: 01 Home, Self Care Clinical Impression: Fatigue Qualifiers: Fatigue type: unspecified Qualified Code(s): R53.83 - Other fatigue UTI (urinary tract infection) Qualifiers: Urinary tract infection type: site unspecified Hematuria presence: without hematuria Qualified Code(s): N39.0 - Urinary tract infection, site not specified Condition: Stable Record reviewed to determine appropriate education?: Yes Instructions: ED UTI Cystitis Female Follow-Up: Brandi Garvey PA [Primary Care Provider] - Prescriptions: Cephalexin [Keflex] 500 mg PO Q6H #28 capsule Comments: Blood tests are normal with regard to kidney function and blood counts. No s igns of heart failure or heart attack. Your thyroid is normal on screening test. Your white count on your blood count is elevated and you do have signs of a urinary tract infection. I think this is the cause of your symptoms. Cephalexin antibiotic as directed for a week. Recheck if not improving well over the next several days. Continue usual medications and adequate hydration. Discharge Date/Time: 05/10/20 15:23
[2020-05-10 14:29] LABS: BILIRUBIN,URINE NEGATIVE (NEGATIVE); GLUCOSE, URINE (UA) 100 mg/dL (NEGATIVE); KETONES,URINE (UA) NEGATIVE (NEGATIVE); LEUKOCYTE ESTERASE, URINE NEGATIVE (NEGATIVE); NITRITE,URINE POSITIVE (NEGATIVE); OCCULT BLOOD,URINE TRACE-INTA (NEGATIVE); PROTEIN,URINE NEGATIVE (NEGATIVE); UROBILINOGEN,URINE 0.2 (NORMAL) E.U./dL (NORMAL)
[2020-05-10 14:33] LABS: CLARITY,URINE CLEAR (CLEAR)
[2020-05-10 14:36] LABS: BACTERIA,URINE Moderate /HPF (None Seen); RBC,URINE 0-5 /HPF (0-5); SQUAMOUS EPITHELIAL CELL,UR FEW Squamous (<= Few)
--- NOTE | 2020-05-10 15:02 | XRAY Report ---
PROCEDURE: Chest 1 View X-Ray INDICATIONS: fatigue/dyspnea TECHNIQUE: One view of the chest was acquired. COMPARISON: 11/10/2018 FINDINGS: Surgical changes and devices: None. Lungs and pleura: No pleural effusions or pneumothorax. Lungs are clear. Mediastinum: Mediastinal contours appear normal. Heart size is normal. Bones and chest wall: No suspicious bony lesions. Overlying soft tissues appear unremarkable. IMPRESSION: No acute cardiopulmonary disease process. Reviewed by: Ilana Tam MD, PhD on 05/10/2020 3:00 PM PDT Approved by: Ilana Tam MD, PhD on 05/10/2020 3:00 PM PDT Station ID: [id number]
[2020-05-10] MEDS ORDERED: cephALEXin 250 MG CAPSULE PO STA (15:08)
[2020-05-10 15:23] VITALS: BP 167/86
== END 2020-05-10 15:23 | disposition home or self-care (01) ==
LOC: ED 12:21
DX: N39.0 Urinary tract infection, site not specified (principal); R53.83 Other fatigue; I10 Essential (primary) hypertension; E11.9 Type 2 diabetes mellitus without complications; Z79.4 Long term (current) use of insulin; M79.7 Fibromyalgia
CPT/HCPCS: 36415; 71045; 80053; 81001; 83690; 84443; 84484; 85025; 86140; 87086; 99284; A9270; 81003; 87181

== ENCOUNTER 2020-07-20 08:00 | Outpatient (CLI) | payer MEDICARE ==
[2020-07-20 18:52] LABS: ALBUMIN 3.8 g/dL (3.2-5.5); ALBUMIN/GLOBULIN RATIO 1.1 (1.0-2.2); BILIRUBIN,TOTAL 0.7 mg/dL (0.2-1.0); CALCIUM 9.1 mg/dL (8.5-10.3); CREATININE 0.9 mg/dL (0.4-1.0); TOTAL PROTEIN 7.2 g/dL (6.7-8.2)
== END 2020-07-20 23:59 | disposition home or self-care (01) ==
LOC: LAB.N 08:00
PROVIDERS: ATTEND Family Medicine
DX: R25.2 Cramp and spasm (principal)
CPT/HCPCS: 36415; 80053

== ENCOUNTER 2020-07-28 11:06 | Outpatient (CLI) | payer MEDICARE ==
--- NOTE | 2020-07-28 11:09 | XRAY Report ---
PROCEDURE: Lumbar Spine 2 View INDICATIONS: LUMBAR BACK PX TECHNIQUE: 3 views of the lumbar spine were acquired. COMPARISON: None FINDINGS: No fracture. Scattered multilevel endplate spurring and diffuse facet arthropathy. Grade 1 anterolisthesis of L4 on L5. There is levocurvature. Diffuse mild narrowing of the lumbar dis c spaces Soft tissues: Overlying bowel gas pattern is normal. Scattered vascular calcifications are present in the aorta. No suspicious soft tissue calcification s. IMPRESSION: Diffuse lumbar spondylosis and facet arthropathy Grade 1 anterolisthesis of L4-L5 Levocurvature Reviewed by: Pk Nation MD on 07/28/2020 11:08 AM PST Approved by: Pk Nation MD on 07/28/2020 11:08 AM PST Station ID: [id number]
== END 2020-07-28 23:59 | disposition home or self-care (01) ==
LOC: DI.N 11:06
PROVIDERS: ATTEND Family Medicine
DX: M47.816 Spondylosis without myelopathy or radiculopathy, lumbar region (principal); M41.86 Other forms of scoliosis, lumbar region

== ENCOUNTER 2021-05-02 13:57 | Outpatient (CLI) | payer MEDICARE | END 2021-05-02 13:58 | disposition home or self-care (01) | LOC: COV 13:57 | PROVIDERS: ATTEND Family Medicine | DX: R06.00 Dyspnea, unspecified (principal); M79.10 Myalgia, unspecified site; R53.83 Other fatigue; R43.8 Other disturbances of smell and taste; Z20.822 Contact with and (suspected) exposure to COVID-19 ==

== ENCOUNTER 2022-07-29 18:03 | Emergency (ER) | payer MEDICARE ==
[2022-07-29] MEDS ORDERED: IPRATROPIUM/ALBUTEROL 3 ML NEB INH STA (18:41)
[2022-07-29] MEDS ORDERED: ALBUTEROL NEB 2.5 MG/3 ML INH STA ×2 (18:41→19:17)
[2022-07-29] MEDS ORDERED: methylPREDNISolone SUCCINATE 125 MG/2 ML VIAL IVP STA (18:47)
[2022-07-29] MEDS ORDERED: LORazepam 2 MG/ML VIAL IVP STA (18:47)
--- NOTE | 2022-07-29 18:49 | ED Physician Documentation ---
History of Present Illness - Stated complaint Stated Complaint: DIFFICULTY BREATHING - Chief complaint Chief Complaint: Resp - Additonal information Additional information: 76-year-old female presents the emergency department for evaluation of acute severe respiratory distress. She reports that since yesterday she has began having cough cold congestion subjective fevers and chills. This afternoon she developed respiratory distress with labored breathing and audible wheeze. She reports that her daughter has been sick at home with upper respiratory symptoms for the last few days. She has been trying to quarantine from her daughter. Patient denies a history of asthma or COPD but is a diabetic. She is vaccinated for COVID-19. On presentation to the emergency department she has saturations of 98% on 2 L nasal cannula. When nasal cannula is turned off her sats dropped to 87%. She is however quite labored and tachypneic with respiratory rate in the 30s. She is speaking in 2 and 3 word sentences. Review of Systems Constitutional: reports: Fever, Chills, Myalgias, Fatigue Eyes: reports: Reviewed and negative Nose: reports: Reviewed and negative Throat: reports: Reviewed and negative Respiratory: reports: Dyspnea, Cough, Wheezing GI: reports: Reviewed and negative : reports: Reviewed and negative Skin: reports: Reviewed and negative Musculoskeletal: reports: Reviewed and negative Neurologic: reports: Reviewed and negative PD PAST MEDICAL HISTORY - Past Medical History Cardiovascular: Hypertension Endocrine/Autoimmune: Type 2 diabetes Psych: Depression Musculoskeletal: Osteoarthritis, Fibromyalgia - Past Surgical History Past Surgical History: Yes Ortho: Knee replacement - Present Medications Home Medications: Ambulatory Orders Medication Instructions Recorded Confirmed Atorvastatin Calcium 40 mg PO QPM 11/10/18 07/29/22 Insulin Glargine [Lantus Solostar] 10 units SQ QPM 11/10/18 07/29/22 Meloxicam 15 mg PO QPM 11/10/18 07/29/22 lisinopriL [Lisinopril] 10 mg PO QPM 11/10/18 07/29/22 Albuterol Sulf [Ventolin Hfa 1 - 2 puffs INH Q4HR PRN #1 each 07/29/22 Inhaler] Benzonatate [Tessalon] 100 mg PO TID 07/29/22 07/29/22 Dicyclomine [Bentyl] 20 mg PO QID 07/29/22 07/29/22 Gabapentin [Neurontin] 900 mg PO TID 07/29/22 07/29/22 Metformin HCl [Metformin ER 500 mg PO AC 07/29/22 07/29/22 Gastric] Oseltamivir Phosphate [Tamiflu] 75 mg PO BID #10 cap 07/29/22 Propranolol [Inderal] 20 mg PO DAILY 07/29/22 07/29/22 predniSONE [Deltasone] 40 mg PO DAILY 5 Days #10 tablet 07/29/22 - Allergies Allergies/Adverse Reactions: Allergies Allergy/AdvReac Type Severity Reaction Status Date / Time Penicillins Allergy Anaphylaxis Verified 07/29/22 18:48 tramadol Allergy Unknown Verified 07/29/22 18:48 - Social History Does the pt smoke?: No Smoking Status: Never smoker Does the pt drink ETOH?: Yes Does the pt have substance abuse?: No PD ED PE NORMAL - General General: Alert and oriented X 3, Well developed/nourished (Obese). No: No acute distress (Respiratory distress) - HEENT HEENT: Atraumatic, Moist mucous membranes - Neck Neck: Supple, no meningeal sign, No adenopathy - Cardiac Cardiac: RRR, No murmur - Respiratory Respiratory: No: No respiratory distress (Tachypneic with respiratory rate in the 30s, shallow respirations. Audible expiratory wheeze. Very poor airflow throughout her lung morris.) - Abdomen Abdomen: Normal bowel sounds, Soft - Back Back: No CVA TTP, No spinal TTP - Derm Derm: Normal color, Warm and dry, No rash - Extremities Extremities: No deformity, No tenderness to palpate, Normal ROM s pain - Neuro Neuro: Alert and oriented X 3, environmental compliance specialist 2-12 intact Eye Opening: Spontaneous Motor: Obeys Commands Verbal: Oriented GCS Score: 15 Results - Vitals Vitals: Vital Signs - 24 hr 07/29/22 07/29/22 07/29/22 18:14 18:50 19:15 Temperature 36.7 C Heart Rate 95 102 H Respiratory 28 H 32 H Rate Blood Pressure 184/97 H O2 Saturation 98 87 L 07/29/22 07/29/22 19:20 19:58 Temperature 37.7 C Heart Rate 95 94 Respiratory 28 H 22 Rate Blood Pressure 151/86 H O2 Saturation 93 Oxygen O2 Source Room air Oxygen Flow Rate 2 - Labs Labs: Laboratory Tests 07/29/22 07/29/22 07/29/22 18:12 18:40 18:40 WBC 7.2 RBC 5.15 Hgb 14.7 Hct 46.6 MCV 90.5 MCH 28.5 MCHC 31.5 L RDW 12.9 Plt Count 249 MPV 10.6 Neut # (Auto) 5.7 Lymph # (Auto) 0.7 L [place] # (Auto) 0.6 Eos # (Auto) 0.1 Baso # (Auto) 0.0 Absolute Nucleated RBC 0.00 Nucleated RBC % 0.0 Sodium 136 Potassium 4.1 Chloride 100 L Carbon Dioxide 27 Anion Gap 9.0 BUN 16 Creatinine 0.8 Estimated GFR (MDRD) 70 L Glucose 166 H Calcium 8.6 Total Bilirubin 0.6 AST 14 ALT 13 Alkaline Phosphatase 82 B-Natriuretic Peptide Total Protein 7.5 Albumin 3.5 Globulin 4.0 Albumin/Globulin Ratio 0.9 L Lipase 31 Nasal Adenovirus (PCR) NOT DETECTED Nasal B. parapertussis DNA (PCR) NOT DETECTED Nasal Coronavir 229E PCR NOT DETECTED Nasal Coronavir HKU1 PCR NOT DETECTED Nasal Coronavir NL63 PCR NOT DETECTED Nasal Coronavir OC43 PCR NOT DETECTED Nasal Enterovir/Rhinovir PCR NOT DETECTED Nasal Influenza A H3 PCR DETECTED A Nasal Influenza B PCR NOT DETECTED Nasal Parainfluen 1 PCR NOT DETECTED Nasal Parainfluen 2 PCR NOT DETECTED Nasal Parainfluen 3 PCR NOT DETECTED Nasal Parainfluen 4 PCR NOT DETECTED Nasal RSV (PCR) NOT DETECTED Nasal B.pertussis DNA PCR NOT DETECTED Nasal C.pneumoniae (PCR) NOT DETECTED [place] Human Metapneumo PCR NOT DETECTED Nasal M.pneumoniae (PCR) NOT DETECTED Nasal SARS-CoV-2 (PCR) NOT DETECTED 07/29/22 18:40 WBC RBC Hgb Hct MCV MCH MCHC RDW Plt Count MPV Neut # (Auto) Lymph # (Auto) [place] # (Auto) Eos # (Auto) Baso # (Auto) Absolute Nucleated RBC Nucleated RBC % Sodium Potassium Chloride Carbon Dioxide Anion Gap BUN Creatinine Estimated GFR (MDRD) Glucose Calcium Total Bilirubin AST ALT Alkaline Phosphatase B-Natriuretic Peptide 131 H Total Protein Albumin Globulin Albumin/Globulin Ratio Lipase Nasal Adenovirus (PCR) Nasal B. parapertussis DNA (PCR) Nasal Coronavir 229E PCR Nasal Coronavir HKU1 PCR Nasal Coronavir NL63 PCR Nasal Coronavir OC43 PCR Nasal Enterovir/Rhinovir PCR Nasal Influenza A H3 PCR Nasal Influenza B PCR Nasal Parainfluen 1 PCR Nasal Parainfluen 2 PCR Nasal Parainfluen 3 PCR Nasal Parainfluen 4 PCR Nasal RSV (PCR) Nasal B.pertussis DNA PCR Nasal C.pneumoniae (PCR) [place] Human Metapneumo PCR Nasal M.pneumoniae (PCR) Nasal SARS-CoV-2 (PCR) - Rads (name of study) cxr Radiology: Final report received (Perihilar bronchial wall thickening suggesting bronchitis and/or reactive airway disease) PD MEDICAL DECISION MAKING - ED course Complexity details: reviewed results, re-evaluated patient, considered differential, d/w patient ED course: 76-year-old female presented to the emergency department for evaluation of respiratory distress and dyspnea. She began having subjective fevers cough cold congestion and body aches yesterday. Her daughter has been sick this week with similar. The patient has tested positive for influenza A while here in the emergency department. On presentation she was audibly wheezy and quite dyspneic and labored. She was speaking in 2-3 word sentences and had very poor air entry globally. I initially administered a DuoNeb with an additional albuterol and on repeat auscultation she was moving air much better throughout her lung morris though still mildly wheezy. I then repeated this nebulizer with an additional 5 mg of albuterol. Given the extensive wheeze she was also administered 125 mg of methylprednisolone. Chest x-ray revealed findings of likely reactive airway disease or bronchitis but no focal findings to suggest pneumonia. After the patient received both of her nebulizer she was observed for more than 1 hour and she had no extra oxygen requirements saturating 92 to 96% on room a ir. I personally ambulated the patient in the room and found that she had no worsening dyspnea or hypoxia. She was at this time nonlabored breathing about 20-24 times a minute. She was speaking in full sentences. We discussed the respiratory distress and influenza A in the setting of her diabetes. The patient is a non-smoker and does not carry a history of asthma or COPD. We discussed the possibility of continuing to observe in the emergency department versus discharge home but this patient time the patient is feeling better and would like to be discharged home which I think is reasonable given the lack of hypoxia and the marked improvement in her symptoms. She will be discharged with a 5-day course of prednisone as well as albuterol and Tamiflu. We discussed the usual routine return precautions. She is advised to follow closely with her primary care doctor as well as to monitor her blood sugars more closely as she is receiving steroids. Departure - Departure Disposition: 01 Home, Self Care Clinical Impression: Influenza A Dyspnea Qualifiers: Dyspnea type: acute respiratory distress Qualified Code(s): R06.03 - Acute respiratory distress Condition: Stable Record reviewed to determine appropriate education?: Yes Instructions: ED Flu Prescriptions: Albuterol Sulf [Ventolin Hfa Inhaler] 1 - 2 puffs INH Q4HR PRN #1 each PRN Reason: Shortness Of Air/Wheezing predniSONE [Deltasone] 40 mg PO DAILY 5 Days #10 tablet Oseltamivir Phosphate [Tamiflu] 75 mg PO BID #10 cap Comments: Lorie palma came into the emergency department because you began having flulike symptoms yesterday and developed respiratory distress this afternoon. Here in the emergency department you have tested positive for influenza A. Your chest x-ray however did not show pneumonia. When you initially presented you were very wheezy and were not moving air well however we gave you 2 nebulizer treatments and on reevaluation you are feeling much better. You are not requiring extra oxygen and we were able to ambulate you in the room and your oxygen level stayed normal. In order to help treat the wheeze we did give you a steroid called methylprednisolone. I have sent a prescription for prednisone to the [facility] in [place]. You will take this daily for the next 5 days. I have also sent a prescription for albuterol to the [facility] in [place]. I recommend you use 2 puffs every 4-6 hours to help with cough and wheeze. A prescription for Tamiflu has also been sent. This does not cure you of the flu but can help reduce the duration of symptoms. If at any point you find that your symptoms are worsening, you develop respiratory distress have an uncontrolled cough, fevers or develop chest pain you are to return immediately to the ER for repeat evaluation.
--- NOTE | 2022-07-29 18:53 | XRAY Report ---
PROCEDURE: Chest 1 View X-Ray INDICATIONS: chest pain TECHNIQUE: One view of the chest was acquired. COMPARISON: None. FINDINGS: Surgical changes and devices: None. Lungs and pleura: Perihilar bronchial wall thickening bilaterally. No dense consolidation, effusion, or pneumothorax. Mediastinum: Mediastinal contours appear normal. Heart size is normal. Bones and chest wall: No suspicious bony lesions. Overlying soft tissues appear unremarkable. IMPRESSION: Perihilar bronchial wall thickening suggesting bronchitis and/or reactive airways disease. Reviewed by: Sydney Olvera MD on 07/29/2022 6:52 PM PST Approved by: Sydney Olvera MD on 07/29/2022 6:52 PM PST Station ID: [id number]
[2022-07-29 18:55] LABS: BASOPHILS % (AUTO) 0.4 %; EOSINOPHILS # (AUTO) 0.1 10^3/uL (0.0-0.7); EOSINOPHILS % (AUTO) 1.9 %; HCT - HEMATOCRIT 46.6 % (37.0-47.0); HGB - HEMOGLOBIN 14.7 g/dL (12.0-16.0); LYMPHOCYTES # (AUTO) 0.7 10^3/uL (1.5-3.5); LYMPHOCYTES % (AUTO) 9.6 %; MEAN CORPUSCULAR HEMOGLOBIN 28.5 pg (27.0-31.0); MEAN CORPUSCULAR HGB CONC 31.5 g/dL (32.0-36.0); MEAN CORPUSCULAR VOLUME 90.5 fL (81.0-99.0); MEAN PLATELET VOLUME 10.6 fL (7.9-10.8); MONOCYTES # (AUTO) 0.6 10^3/uL (0.0-1.0); MONOCYTES % (AUTO) 7.9 %; NEUTROPHILS # (AUTO) 5.7 10^3/uL (1.5-6.6); NEUTROPHILS % (AUTO) 79.6 %; PLT - PLATELET COUNT 249 10^3/uL (130-450); RED BLOOD COUNT 5.15 10^6/uL (4.20-5.40); RED CELL DISTRIBUTION WIDTH 12.9 % (12.0-15.0); WHITE BLOOD COUNT 7.2 x10^3/uL (4.8-10.8)
[2022-07-29 18:57] LABS: ALBUMIN 3.5 g/dL (3.2-5.5); ALBUMIN/GLOBULIN RATIO 0.9 (1.0-2.2); BILIRUBIN,TOTAL 0.6 mg/dL (0.2-1.0); CALCIUM 8.6 mg/dL (8.5-10.3); CREATININE 0.8 mg/dL (0.4-1.0); POTASSIUM 4.1 mmol/L (3.5-5.0); TOTAL PROTEIN 7.5 g/dL (6.7-8.2)
[2022-07-29] MEDS ORDERED: ALBUTEROL NEB 2.5 MG/3 ML INH ONE (19:12)
[2022-07-29 19:46] LABS: B. PARAPERTUSSIS- RESP PCR PAN NOT DETECTED; B. PERTUSSIS- RESP PCR PANEL NOT DETECTED; C. PNEUMONIAE- RESP PCR PANEL NOT DETECTED; CORONAVIRUS 229E-RESP PCR NOT DETECTED; CORONAVIRUS HKU1-RESP PCR NOT DETECTED; CORONAVIRUS NL63-RESP PCR NOT DETECTED; CORONAVIRUS OC43-RESP PCR NOT DETECTED; HUMAN METAPNEUMOVIRUS NOT DETECTED; INFLUENZA A H3- RESP PCR PANEL DETECTED; INFLUENZA B - RESP PCR PANEL NOT DETECTED; M. PNEUMONIAE- RESP PCR PANEL NOT DETECTED; PARAINFLUENZA VIRUS 1 NOT DETECTED; PARAINFLUENZA VIRUS 2 NOT DETECTED; PARAINFLUENZA VIRUS 3 NOT DETECTED; PARAINFLUENZA VIRUS 4 NOT DETECTED; RHINOVIRUS/ENTEROVIRUS NOT DETECTED; RSV- RESP PCR PANEL NOT DETECTED; SARS-CoV-2 -RESP PCR PANEL NOT DETECTED
[2022-07-29] MEDS ORDERED: OSELTAMIVIR 75 MG CAPSULE PO STA (19:53)
[2022-07-29] MEDS ORDERED: ALBUTEROL 1 PUFF INH STA (20:44)
[2022-07-29 21:17] VITALS: BP 140/61
== END 2022-07-29 21:16 | disposition home or self-care (01) ==
LOC: EDUNIT# → ED 18:03
DX: J10.1 Influenza due to other identified influenza virus with other respiratory manifestations (principal); R06.03 Acute respiratory distress; E11.9 Type 2 diabetes mellitus without complications; I10 Essential (primary) hypertension; Z20.822 Contact with and (suspected) exposure to COVID-19
CPT/HCPCS: 36415; 71045; 80053; 83690; 83880; 85025; 87633; 94640; 94664; 96374; 99284; 99285; A9270; J2060

== ENCOUNTER → 2022-07-29 | Outpatient (CLI) | payer MEDICARE | LOC: EMS 17:45 | DX: R06.03 Acute respiratory distress (principal) | CPT/HCPCS: A0425; A0429 ==

== ENCOUNTER 2023-06-22 21:45 | Outpatient (CLI) | payer MEDICARE | END 2023-06-22 21:46 | disposition EMS.NT | LOC: EMS 21:45 | DX: R11.0 Nausea (principal); R53.1 Weakness ==

== ENCOUNTER 2023-07-12 21:44 | Outpatient (CLI) | payer MEDICARE | END 2023-07-12 23:59 | disposition short-term general hospital (02) | LOC: EMS 21:44 | DX: F32.A Depression, unspecified (principal); R11.2 Nausea with vomiting, unspecified; R63.4 Abnormal weight loss | CPT/HCPCS: A0425; A0429; A0888 ==

== ENCOUNTER 2023-08-06 07:00 | Outpatient (CLI) | payer MEDICARE ==
[2023-08-06 16:36] LABS: BASOPHILS % (AUTO) 0.4 %; EOSINOPHILS # (AUTO) 0.2 10^3/uL (0.0-0.7); HCT - HEMATOCRIT 40.2 % (37.0-47.0); HGB - HEMOGLOBIN 12.9 g/dL (12.0-16.0); LYMPHOCYTES # (AUTO) 3.3 10^3/uL (1.5-3.5); MEAN CORPUSCULAR HEMOGLOBIN 30.1 pg (27.0-31.0); MEAN CORPUSCULAR HGB CONC 32.1 g/dL (32.0-36.0); MEAN CORPUSCULAR VOLUME 93.9 fL (81.0-99.0); MEAN PLATELET VOLUME 12.5 fL (7.9-10.8); MONOCYTES # (AUTO) 0.6 10^3/uL (0.0-1.0); MONOCYTES % (AUTO) 5.6 %; NEUTROPHILS # (AUTO) 7.1 10^3/uL (1.5-6.6); NEUTROPHILS % (AUTO) 62.6 %; PLT - PLATELET COUNT 215 10^3/uL (130-450); RED BLOOD COUNT 4.28 10^6/uL (4.20-5.40); RED CELL DISTRIBUTION WIDTH 14.3 % (12.0-15.0); WHITE BLOOD COUNT 11.3 x10^3/uL (4.8-10.8)
[2023-08-06 16:54] LABS: ALBUMIN 3.6 g/dL (3.2-5.5); ALBUMIN/GLOBULIN RATIO 1.3 (1.0-2.2); BILIRUBIN,TOTAL 0.5 mg/dL (0.2-1.0); CALCIUM 8.8 mg/dL (8.5-10.3); CREATININE 0.8 mg/dL (0.6-1.3); POTASSIUM 4.3 mmol/L (3.5-4.5); TOTAL PROTEIN 6.4 g/dL (6.4-8.9)
[2023-08-06 18:16] LABS: ESTIMATED AVERAGE GLUCOSE 192 mg/dL (70-100); HEMOGLOBIN A1c% 8.3 % (4.27-6.07)
== END 2023-08-06 23:59 | disposition home or self-care (01) ==
LOC: LAB.S 07:00
PROVIDERS: ATTEND Nurse Practitioner Family
DX: E11.65 Type 2 diabetes mellitus with hyperglycemia (principal)
CPT/HCPCS: 36415; 80053; 83036; 83690; 85025

== ENCOUNTER 2023-09-12 08:00 | Outpatient (CLI) | payer MEDICARE ==
[2023-09-12 21:14] LABS: BASOPHILS # (AUTO) 0.1 10^3/uL (0.0-0.1); BASOPHILS % (AUTO) 0.5 %; EOSINOPHILS # (AUTO) 0.3 10^3/uL (0.0-0.7); EOSINOPHILS % (AUTO) 2.1 %; HCT - HEMATOCRIT 40.4 % (37.0-47.0); LYMPHOCYTES # (AUTO) 3.6 10^3/uL (1.5-3.5); LYMPHOCYTES % (AUTO) 29.8 %; MEAN CORPUSCULAR HEMOGLOBIN 30.7 pg (27.0-31.0); MEAN CORPUSCULAR HGB CONC 32.2 g/dL (32.0-36.0); MEAN CORPUSCULAR VOLUME 95.5 fL (81.0-99.0); MEAN PLATELET VOLUME 12.2 fL (7.9-10.8); MONOCYTES # (AUTO) 0.6 10^3/uL (0.0-1.0); MONOCYTES % (AUTO) 5.1 %; NEUTROPHILS # (AUTO) 7.5 10^3/uL (1.5-6.6); NEUTROPHILS % (AUTO) 61.8 %; PLT - PLATELET COUNT 284 10^3/uL (130-450); RED BLOOD COUNT 4.23 10^6/uL (4.20-5.40); RED CELL DISTRIBUTION WIDTH 12.7 % (12.0-15.0)
[2023-09-12 21:29] LABS: ALBUMIN 3.7 g/dL (3.2-5.5); ALBUMIN/GLOBULIN RATIO 1.2 (1.0-2.2); BILIRUBIN,TOTAL 0.5 mg/dL (0.2-1.0); CALCIUM 9.2 mg/dL (8.5-10.3); CREATININE 1.2 mg/dL (0.6-1.3); POTASSIUM 4.1 mmol/L (3.5-4.5); TOTAL PROTEIN 6.7 g/dL (6.4-8.9)
[2023-09-12 22:18] LABS: ESTIMATED AVERAGE GLUCOSE 177 mg/dL (70-100); HEMOGLOBIN A1c% 7.8 % (4.27-6.07)
== END 2023-09-12 23:59 | disposition home or self-care (01) ==
LOC: LAB.R 08:00
PROVIDERS: ATTEND Nurse Practitioner Family
DX: I10 Essential (primary) hypertension (principal); E11.65 Type 2 diabetes mellitus with hyperglycemia; N39.0 Urinary tract infection, site not specified; R11.0 Nausea
CPT/HCPCS: 80053; 82150; 83036; 85025

== ENCOUNTER 2023-09-19 12:02 | Emergency (ER) | payer MEDICARE ==
[2023-09-19 12:26] VITALS: BP 174/71; O2SAT 97
[2023-09-19 12:33] LABS: BILIRUBIN,URINE NEGATIVE (NEGATIVE); GLUCOSE, URINE (UA) NEGATIVE (NEGATIVE); KETONES,URINE (UA) NEGATIVE (NEGATIVE); LEUKOCYTE ESTERASE, URINE SMALL (NEGATIVE); NITRITE,URINE NEGATIVE (NEGATIVE); OCCULT BLOOD,URINE TRACE-INTA (NEGATIVE); PROTEIN,URINE NEGATIVE (NEGATIVE); UROBILINOGEN,URINE 4 E.U./dL (NORMAL)
[2023-09-19 12:44] LABS: BACTERIA,URINE Few /HPF (None Seen); CLARITY,URINE HAZY (CLEAR); RBC,URINE 0-5 /HPF (0-5); SQUAMOUS EPITHELIAL CELL,UR FEW Squamous (<= Few)
--- NOTE | 2023-09-19 12:56 | ED Physician Documentation ---
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 Patient reports that over the last 4 months she has had a really hard time treating her UTIs just recently finished a course of Augmentin about 2 weeks ago for another urinary tract infection. Patient reports that each strain of bacteria is different in relation to her UTI but she does not remember or recall what the last bacteria was. Over the last 2 to 3 days she has been having fevers, chills, nausea vomiting diarrhea. She does report about 3 days ago she has had a sore throat with cough and congestion she called to report the symptoms to her doctor and her doctor told her to come to the emergency department for further evaluation of possible UTI symptoms. She denies any dysuria, pelvic pain, CVA tenderness. Last emesis was today around 10:30 AM she has been taking Zofran twice a day to help with her nausea which she does report significantly helps. PD PAST MEDICAL HISTORY - Past Medical History Cardiovascular: Hypertension Endocrine/Autoimmune: Type 2 diabetes Psych: Depression Musculoskeletal: Osteoarthritis, Fibromyalgia - Past Surgical History Past Surgical History: Yes Ortho: Knee replacement - Present Medications Home Medications: Ambulatory Orders Medication Instructions Recorded Confirmed Atorvastatin Calcium 40 mg PO QPM 11/10/18 07/29/22 Insulin Glargine [Lantus Solostar] 10 units SQ QPM 11/10/18 07/29/22 Meloxicam 15 mg PO QPM 11/10/18 07/29/22 lisinopriL [Lisinopril] 10 mg PO QPM 11/10/18 07/29/22 Albuterol Sulf [Ventolin Hfa 1 - 2 puffs INH Q4HR PRN #1 each 07/29/22 Inhaler] Benzonatate [Tessalon] 100 mg PO TID 07/29/22 07/29/22 Dicyclomine [Bentyl] 20 mg PO QID 07/29/22 07/29/22 Gabapentin [Neurontin] 900 mg PO TID 07/29/22 07/29/22 Metformin HCl [Metformin ER 500 mg PO AC 07/29/22 07/29/22 Gastric] Oseltamivir Phosphate [Tamiflu] 75 mg PO BID #10 cap 07/29/22 Propranolol [Inderal] 20 mg PO DAILY 07/29/22 07/29/22 predniSONE [Deltasone] 40 mg PO DAILY 5 Days #10 tablet 07/29/22 - Allergies Allergies/Adverse Reactions: Allergies Allergy/AdvReac Type Severity Reaction Status Date / Time Penicillins Allergy Anaphylaxis Verified 09/19/23 12:22 tramadol Allergy Unknown Verified 09/19/23 12:22 - Social History Does the pt smoke?: No Smoking Status: Never smoker Does the pt drink ETOH?: Yes Does the pt have substance abuse?: No - POLST Patient has POLST: No PD ED PE NORMAL - Vitals Vital signs reviewed: Yes - General General: Alert and oriented X 3, No acute distress, Well developed/nourished - HEENT HEENT: Atraumatic - Cardiac Cardiac: RRR, No murmur, No gallop - Respiratory Respiratory: No respiratory distress, Clear bilaterally - Abdomen Abdomen: Normal bowel sounds, Soft, Non tender, Non distended - Back Back: No CVA TTP - Derm Derm: Normal color, Warm and dry, No rash - Psych Psych: Normal mood Results - Vitals Vitals: Vital Signs - 24 hr 09/19/23 09/19/23 12:10 15:16 Temperature 36.1 C L 36.5 C Heart Rate 88 80 Respiratory 16 16 Rate Blood Pressure 174/71 H O2 Saturation 97 97 Oxygen O2 Source Room air - Labs Labs: Laboratory Tests 09/19/23 09/19/23 12:20 12:45 Urine Color YELLOW Urine Clarity HAZY Urine pH 7.0 Ur Specific [place] 1.015 Urine Protein NEGATIVE Urine Glucose (UA) NEGATIVE Urine Ketones NEGATIVE Urine Occult Blood TRACE-INTA Urine Nitrite NEGATIVE Urine Bilirubin NEGATIVE Urine Urobilinogen 4 H Ur Leukocyte Esterase SMALL H Urine RBC 0-5 Urine WBC 6-10 H Ur Squamous Epith Cells FEW Squamous Urine Bacteria Few Urine Culture Comments INDICATED Nasal Adenovirus (PCR) NOT DETECTED Nasal B. parapertussis DNA (PCR) NOT DETECTED Nasal Coronavir 229E PCR NOT DETECTED Nasal Coronavir HKU1 PCR NOT DETECTED Nasal Coronavir NL63 PCR NOT DETECTED Nasal Coronavir OC43 PCR NOT DETECTED Nasal Enterovir/Rhinovir PCR NOT DETECTED Nasal Influenza B PCR NOT DETECTED Nasal Influenza A PCR NOT DETECTED Nasal Parainfluen 1 PCR NOT DETECTED Nasal Parainfluen 2 PCR NOT DETECTED Nasal Parainfluen 3 PCR NOT DETECTED Nasal Parainfluen 4 PCR NOT DETECTED Nasal RSV (PCR) NOT DETECTED Nasal B.pertussis DNA PCR NOT DETECTED Nasal C.pneumoniae (PCR) NOT DETECTED [place] Human Metapneumo PCR NOT DETECTED Nasal M.pneumoniae (PCR) NOT DETECTED Nasal SARS-CoV-2 (PCR) NOT DETECTED PD Medical Decision Making - ED course ED course: 77-year-old female presents emergency department for nausea vomiting. Patient initially told me that she had a couple episodes of diarrhea but upon further evaluation and examination patient reports that she describes soft serve bowel movement 3 days ago no persistent diarrhea since then. She has had persistent nausea vomiting as well as cough and congestion. Respiratory panel was negative. Urinalysis was positive for leukocytes negative for nitrites with mild WBCs. Patient reports that she has absolutely no UTI symptoms no dysuria no CVA tenderness no abdominal pain or abdominal discomfort. I offered the patient to start on antibiotics patient reports that she is really feeling sick of antibiotics at this time is recently had a really terrible yeast infection that she still recovering from and wants to hold off on antibiotics for now. I informed her that we sent the urine for cultures and we will call her in 3 to 4 days with the results if needed. Patient told to follow-up with primary care provider if the symptoms do not get any worse and for reevaluation of her urinalysis. She is given strict ER return precautions all questions answered safe for discharge at this time. Departure - Departure Disposition: 01 Home, Self Care Clinical Impression: Gastroenteritis Condition: Good Instructions: ED Gastroenteritis Viral Comments: Thank you for trusting us with your care your urine did test positive for leukocytes on your urinalysis, We are sending the urine for cultures and further evaluation. We offered to start you on antibiotics here in the emergency department but given that you have no UTI symptoms you opted to hold off for now to see if this was some sort of gastroenteritis due to a viral infection. Given that you have no UTI symptoms at this point in time this could be a colonized bacterial urinary tract infection. Please follow-up with your primary care provider within the next couple days for reevaluation see how you are feeling. Make sure that you are drinking plenty of fluids going home if you start to have persistent explosive diarrhea please follow-up with your primary care provider for a stool sample. Please come back to the emergency department if you are having worsening nausea vomiting despite taking your Zofran, flank pain, urinary urgency, or any other concerning symptoms. Forms: PCP List Discharge Date/Time: 09/19/23 15:16
[2023-09-19] MEDS: SODIUM CHLORIDE 0.9% 1,000 ML IV ONE (13:18)
[2023-09-19 14:21] LABS: B. PARAPERTUSSIS- RESP PCR PAN NOT DETECTED; B. PERTUSSIS- RESP PCR PANEL NOT DETECTED; C. PNEUMONIAE- RESP PCR PANEL NOT DETECTED; CORONAVIRUS 229E-RESP PCR NOT DETECTED; CORONAVIRUS HKU1-RESP PCR NOT DETECTED; CORONAVIRUS NL63-RESP PCR NOT DETECTED; CORONAVIRUS OC43-RESP PCR NOT DETECTED; HUMAN METAPNEUMOVIRUS NOT DETECTED; INFLUENZA A- RESP PCR PANEL NOT DETECTED; INFLUENZA B - RESP PCR PANEL NOT DETECTED; M. PNEUMONIAE- RESP PCR PANEL NOT DETECTED; PARAINFLUENZA VIRUS 1 NOT DETECTED; PARAINFLUENZA VIRUS 2 NOT DETECTED; PARAINFLUENZA VIRUS 3 NOT DETECTED; PARAINFLUENZA VIRUS 4 NOT DETECTED; RHINOVIRUS/ENTEROVIRUS NOT DETECTED; RSV- RESP PCR PANEL NOT DETECTED; SARS-CoV-2 -RESP PCR PANEL NOT DETECTED
== END 2023-09-19 15:16 | disposition home or self-care (01) ==
LOC: EDUNIT# → ED 12:02
DX: K52.9 Noninfective gastroenteritis and colitis, unspecified (principal); B96.20 Unspecified Escherichia coli [E. coli] as the cause of diseases classified elsewhere; I10 Essential (primary) hypertension; E11.9 Type 2 diabetes mellitus without complications; Z79.4 Long term (current) use of insulin; Z79.899 Other long term (current) drug therapy; Z79.84 Long term (current) use of oral hypoglycemic drugs; Z87.440 Personal history of urinary (tract) infections
CPT/HCPCS: 81001; 87086; 87181; 87633; 96360; 99283

== ENCOUNTER 2023-10-02 18:59 | Outpatient (CLI) | payer MEDICARE | END 2023-10-02 19:00 | disposition critical access hospital (66) | LOC: EMS 18:59 | DX: R06.02 Shortness of breath (principal); R11.2 Nausea with vomiting, unspecified; R53.83 Other fatigue; R68.83 Chills (without fever); R61 Generalized hyperhidrosis; R07.0 Pain in throat; R05.9 Cough, unspecified | CPT/HCPCS: A0425; A0427 ==

== ENCOUNTER 2023-10-02 19:16 | Emergency (ER) | payer MEDICARE ==
[2023-10-02 20:01] LABS: BASOPHILS % (AUTO) 0.3 %; EOSINOPHILS # (AUTO) 0.4 10^3/uL (0.0-0.7); EOSINOPHILS % (AUTO) 4.4 %; HGB - HEMOGLOBIN 13.7 g/dL (12.0-16.0); LYMPHOCYTES % (AUTO) 21.5 %; MEAN CORPUSCULAR HEMOGLOBIN 30.9 pg (27.0-31.0); MEAN CORPUSCULAR HGB CONC 33.4 g/dL (32.0-36.0); MEAN CORPUSCULAR VOLUME 92.3 fL (81.0-99.0); MEAN PLATELET VOLUME 11.3 fL (7.9-10.8); MONOCYTES # (AUTO) 0.9 10^3/uL (0.0-1.0); MONOCYTES % (AUTO) 9.6 %; NEUTROPHILS % (AUTO) 63.9 %; PLT - PLATELET COUNT 217 10^3/uL (130-450); RED BLOOD COUNT 4.44 10^6/uL (4.20-5.40); RED CELL DISTRIBUTION WIDTH 12.9 % (12.0-15.0); WHITE BLOOD COUNT 9.5 x10^3/uL (4.8-10.8)
[2023-10-02 20:17] LABS: ALBUMIN/GLOBULIN RATIO 1.3 (1.0-2.2); BILIRUBIN,TOTAL 0.7 mg/dL (0.2-1.0); CALCIUM 9.3 mg/dL (8.5-10.3); CREATININE 1.3 mg/dL (0.6-1.3); POTASSIUM 3.8 mmol/L (3.5-4.5); TOTAL PROTEIN 7.2 g/dL (6.4-8.9)
[2023-10-02] MEDS: IPRATROPIUM/ALBUTEROL 3 ML NEB INH STA ×2 (20:31→21:31)
--- NOTE | 2023-10-02 20:33 | ED Physician Documentation ---
History of Present Illness - Stated complaint Stated Complaint: N/V/CHILLS - Chief complaint Chief Complaint: General - History obtained from History obtained from: Patient - Additonal information Additional information: Patient is a 77-year-old female who denies a history of asthma or COPD presenting for evaluation of feeling unwell since yesterday. Patient states that yesterday morning she woke up feeling achy with a sore throat, congestion, cough and developed what she believes is a fever overnight as she woke up with chills and sweats. Today if she continued to have a cough and felt short of air. She then had an episode of emesis which was her dinner prompting her to call EMS. She is unsure of any known sick contacts. She is not normally on oxygen. Upon arrival she was noted to be 90% on room air. She does not smoke. Does not take a blood thinner. Denies leg pain or swelling.Denies abdominal pain or dysuria. Received Zofran from EMS and reports that her nausea is resolved. Review of Systems Constitutional: reports: Fever (Subjective) Nose: reports: Congestion Throat: reports: Sore throat Cardiac: denies: Chest pain / pressure Respiratory: reports: Dyspnea, Cough GI: reports: Nausea, Vomiting. denies: Abdominal Pain PD PAST MEDICAL HISTORY - Past Medical History Past Medical History: Yes Cardiovascular: Hypertension Neuro: None Endocrine/Autoimmune: Type 2 diabetes HEENT: None Psych: Depression Musculoskeletal: Osteoarthritis, Fibromyalgia - Past Surgical History Past Surgical History: Yes Ortho: Knee replacement - Present Medications Home Medications: Ambulatory Orders Medication Instructions Recorded Confirmed Atorvastatin Calcium 40 mg PO QPM 11/10/18 07/29/22 Insulin Glargine [Lantus Solostar] 10 units SQ QPM 11/10/18 07/29/22 Meloxicam 15 mg PO QPM 11/10/18 07/29/22 lisinopriL [Lisinopril] 10 mg PO QPM 11/10/18 07/29/22 Albuterol Sulf [Ventolin Hfa 1 - 2 puffs INH Q4HR PRN #1 each 07/29/22 Inhaler] Benzonatate [Tessalon] 100 mg PO TID 07/29/22 07/29/22 Dicyclomine [Bentyl] 20 mg PO QID 07/29/22 07/29/22 Gabapentin [Neurontin] 900 mg PO TID 07/29/22 07/29/22 Metformin HCl [Metformin ER 500 mg PO AC 07/29/22 07/29/22 Gastric] Oseltamivir Phosphate [Tamiflu] 75 mg PO BID #10 cap 07/29/22 Propranolol [Inderal] 20 mg PO DAILY 07/29/22 07/29/22 predniSONE [Deltasone] 40 mg PO DAILY 5 Days #10 tablet 07/29/22 Albuterol 2.5 mg INH Q4H PRN #30 ml 10/02/23 predniSONE [Deltasone] 60 mg PO DAILY 4 Days #12 tablet 10/02/23 - Allergies Allergies/Adverse Reactions: Allergies Allergy/AdvReac Type Severity Reaction Status Date / Time Penicillins Allergy Anaphylaxis Verified 10/02/23 19:28 tramadol Allergy Unknown Verified 10/02/23 19:28 morphine AdvReac Unknown Verified 10/02/23 19:28 - Social History Does the pt smoke?: No Smoking Status: Never smoker Does the pt drink ETOH?: No Does the pt have substance abuse?: No - Immunizations Immunizations are current?: Yes - POLST Patient has POLST: No PD ED PE NORMAL - General General: Alert and oriented X 3, No acute distress, Well developed/nourished - HEENT HEENT: Atraumatic, Moist mucous membranes, Pharynx benign (No oral swelling, erythema or exudate) - Neck Neck: Supple, no meningeal sign - Cardiac Cardiac: RRR, Strong equal pulses - Respiratory Respiratory: No respiratory distress, Other (Audible wheezing) - Abdomen Abdomen: Normal bowel sounds, Soft, Non tender, Non distended - Derm Derm: Warm and dry - Extremities Extremities: No calf tenderness / cord - Neuro Neuro: Alert and oriented X 3, Normal speech Results - Vitals Vitals: Vital Signs - 24 hr 10/02/23 10/02/23 10/02/23 19:28 19:32 19:33 Temperature 36.7 C Heart Rate 96 93 Respiratory 22 20 Rate Blood Pressure 141/91 H O2 Saturation 90 L 90 L 95 If not protocol 2 : Oxygen Flow, liters/minute 10/02/23 10/02/23 10/02/23 20:00 20:36 21:32 Temperature Heart Rate 92 70 96 Respiratory 17 19 Rate Blood Pressure 145/69 H 143/69 H O2 Saturation 3 L 4 L If not protocol 5 5 : Oxygen Flow, liters/minute 10/02/23 22:00 Temperature Heart Rate 110 H Respiratory 18 Rate Blood Pressure O2 Saturation 97 If not protocol : Oxygen Flow, liters/minute Oxygen O2 Source Room air Oxygen Flow Rate 2 - Labs Labs: Laboratory Tests 10/02/23 10/02/23 10/02/23 19:30 19:50 19:50 WBC 9.5 RBC 4.44 Hgb 13.7 Hct 41.0 MCV 92.3 MCH 30.9 MCHC 33.4 RDW 12.9 Plt Count 217 MPV 11.3 H Neut # (Auto) 6.0 Lymph # (Auto) 2.0 [place] # (Auto) 0.9 Eos # (Auto) 0.4 Baso # (Auto) 0.0 Absolute Nucleated RBC 0.00 Nucleated RBC % 0.0 Sodium 134 L Potassium 3.8 Chloride 95 L Carbon Dioxide 28 Anion Gap 11.0 BUN 36 H Creatinine 1.3 Estimated GFR (MDRD) 40 L Glucose 219 H Calcium 9.3 Total Bilirubin 0.7 AST 13 ALT 10 Alkaline Phosphatase 68 Total Protein 7.2 Albumin 4.0 Globulin 3.2 Albumin/Globulin Ratio 1.3 Lipase 25 Urine Color Urine Clarity Urine pH Ur Specific [place] Urine Protein Urine Glucose (UA) Urine Ketones Urine Occult Blood Urine Nitrite Urine Bilirubin Urine Urobilinogen Ur Leukocyte Esterase Urine RBC Urine WBC Urine WBC Clumps Ur Squamous Epith Cells Urine Bacteria Urine Casts Ur Microscopic Review Urine Culture Comments Nasal Adenovirus (PCR) NOT DETECTED Nasal B. parapertussis DNA (PCR) NOT DETECTED Nasal Coronavir 229E PCR NOT DETECTED Nasal Coronavir HKU1 PCR NOT DETECTED Nasal Coronavir NL63 PCR NOT DETECTED Nasal Coronavir OC43 PCR NOT DETECTED Nasal Enterovir/Rhinovir PCR NOT DETECTED Nasal Influenza B PCR NOT DETECTED Nasal Influenza A PCR NOT DETECTED Nasal Parainfluen 1 PCR NOT DETECTED Nasal Parainfluen 2 PCR NOT DETECTED Nasal Parainfluen 3 PCR DETECTED A Nasal Parainfluen 4 PCR NOT DETECTED Nasal RSV (PCR) NOT DETECTED Nasal B.pertussis DNA PCR NOT DETECTED Nasal C.pneumoniae (PCR) NOT DETECTED [place] Human Metapneumo PCR NOT DETECTED Nasal M.pneumoniae (PCR) NOT DETECTED Nasal SARS-CoV-2 (PCR) NOT DETECTED 10/02/23 22:06 WBC RBC Hgb Hct MCV MCH MCHC RDW Plt Count MPV Neut # (Auto) Lymph # (Auto) [place] # (Auto) Eos # (Auto) Baso # (Auto) Absolute Nucleated RBC Nucleated RBC % Sodium Potassium Chloride Carbon Dioxide Anion Gap BUN Creatinine Estimated GFR (MDRD) Glucose Calcium Total Bilirubin AST ALT Alkaline Phosphatase Total Protein Albumin Globulin Albumin/Globulin Ratio Lipase Urine Color YELLOW Urine Clarity CLEAR Urine pH 5.5 Ur Specific [place] 1.025 Urine Protein TRACE Urine Glucose (UA) NEGATIVE Urine Ketones NEGATIVE Urine Occult Blood TRACE-INTA Urine Nitrite NEGATIVE Urine Bilirubin NEGATIVE Urine Urobilinogen 0.2 (NORMAL) Ur Leukocyte Esterase SMALL H Urine RBC 0-5 Urine WBC 11-25 H Urine WBC Clumps PRESENT Ur Squamous Epith Cells MOD Squamous H Urine Bacteria Few Urine Casts 11-25 Hyaline Casts Ur Microscopic Review INDICATED Urine Culture Comments NOT INDICATED Nasal Adenovirus (PCR) Nasal B. parapertussis DNA (PCR) Nasal Coronavir 229E PCR Nasal Coronavir HKU1 PCR Nasal Coronavir NL63 PCR Nasal Coronavir OC43 PCR Nasal Enterovir/Rhinovir PCR Nasal Influenza B PCR Nasal Influenza A PCR Nasal Parainfluen 1 PCR Nasal Parainfluen 2 PCR Nasal Parainfluen 3 PCR Nasal Parainfluen 4 PCR Nasal RSV (PCR) Nasal B.pertussis DNA PCR Nasal C.pneumoniae (PCR) [place] Human Metapneumo PCR Nasal M.pneumoniae (PCR) Nasal SARS-CoV-2 (PCR) PD Medical Decision Making - ED course Complexity details: reviewed results, re-evaluated patient, d/w patient ED course: Patient is a 77-year-old female presenting for evaluation of a 2-day history of URI symptoms with cough, congestion, wheezing and shortness of air. Initial oxygenation was 90% on room air which improved with 2 L of oxygen via nasal cannula. She is audibly wheezing. Labs including CBC, chemistry, EKG and chest x-ray were obtained and reviewed.No signs of pneumonia on chest x-ray. She was given a DuoNeb treatment and a dose of p.o. prednisone. She did report this made her feel better but she still had wheezing so was given an additional DuoNeb and albuterol. At this time she reports feeling significantly better and is able to ambulate to the bathroom. She was able to be weaned off the oxygen. Her respiratory swab is positive for parainfluenza. Suspect her symptoms are related to bronchitis from her viral illness. She otherwise has stable vital signs and no indications for admission at this time. Patient counseled on continued supportive care as well as treatment of bronchitis with albuterol inhaler and prednisone. She does have an inhaler already at home. Patient counseled on concerning symptoms to return for. 2108 - Feeling a little better but still with some wheezing. Departure - Departure Disposition: Home, Self Care Clinical Impression: Parainfluenza infection, Bronchitis Condition: Stable Instructions: ED Viral Syndrome Prescriptions: Albuterol 2.5 mg INH Q4H PRN #30 ml PRN Reason: Wheezing predniSONE [Deltasone] 60 mg PO DAILY 4 Days #12 tablet Comments: You have tested positive for parainfluenza which is a respiratory virus. This is causing symptoms of bronchitis. Please continue with your albuterol inhaler as needed for shortness of breath and wheezing. I will also continue you on prednisone for another 4 days. At this may cause your blood sugars to be higher so please keep a closer eye on that. Return to the ER with any worsening. At your request I have handed your your prescriptions to fill at the [facility]. Forms: PCP List Discharge Date/Time: 10/02/23 22:50
[2023-10-02 20:34] LABS: B. PARAPERTUSSIS- RESP PCR PAN NOT DETECTED; B. PERTUSSIS- RESP PCR PANEL NOT DETECTED; C. PNEUMONIAE- RESP PCR PANEL NOT DETECTED; CORONAVIRUS 229E-RESP PCR NOT DETECTED; CORONAVIRUS HKU1-RESP PCR NOT DETECTED; CORONAVIRUS NL63-RESP PCR NOT DETECTED; CORONAVIRUS OC43-RESP PCR NOT DETECTED; HUMAN METAPNEUMOVIRUS NOT DETECTED; INFLUENZA A- RESP PCR PANEL NOT DETECTED; INFLUENZA B - RESP PCR PANEL NOT DETECTED; M. PNEUMONIAE- RESP PCR PANEL NOT DETECTED; PARAINFLUENZA VIRUS 1 NOT DETECTED; PARAINFLUENZA VIRUS 2 NOT DETECTED; PARAINFLUENZA VIRUS 3 DETECTED; PARAINFLUENZA VIRUS 4 NOT DETECTED; RHINOVIRUS/ENTEROVIRUS NOT DETECTED; RSV- RESP PCR PANEL NOT DETECTED; SARS-CoV-2 -RESP PCR PANEL NOT DETECTED
[2023-10-02] MEDS: predniSONE 20 MG TABLET PO STA (20:48)
--- NOTE | 2023-10-02 20:48 | XRAY Report ---
PROCEDURE: Chest 1V INDICATIONS: SOA TECHNIQUE: One view of the chest was acquired. COMPARISON: Chest x-ray, 07/29/2022. FINDINGS: Surgical changes and devices: None. Lungs and pleura: No pleural effusions or pneumothorax. Lungs are clear. Mediastinum: Mediastinal contours appear normal. Heart size is normal. Bones and chest wall: No suspicious bony lesions. Overlying soft tissues appear unremarkable. IMPRESSION: No acute cardiopulmonary process. Reviewed by: Terry Dunn MD on 10/02/2023 8:47 PM PST Approved by: Terry Dunn MD on 10/02/2023 8:47 PM PST Station ID: [id number]
[2023-10-02] MEDS: ALBUTEROL NEB 2.5 MG/3 ML INH STA (21:30)
[2023-10-02 21:41] VITALS: BP 143/69
[2023-10-02 22:13] LABS: BILIRUBIN,URINE NEGATIVE (NEGATIVE); GLUCOSE, URINE (UA) NEGATIVE (NEGATIVE); KETONES,URINE (UA) NEGATIVE (NEGATIVE); LEUKOCYTE ESTERASE, URINE SMALL (NEGATIVE); NITRITE,URINE NEGATIVE (NEGATIVE); OCCULT BLOOD,URINE TRACE-INTA (NEGATIVE); PH,URINE 5.5 PH (5.0-7.5); PROTEIN,URINE TRACE mg/dL (NEGATIVE); UROBILINOGEN,URINE 0.2 (NORMAL) E.U./dL (NORMAL)
[2023-10-02 22:17] VITALS: O2SAT 97
[2023-10-02 22:25] LABS: BACTERIA,URINE Few /HPF (None Seen); CLARITY,URINE CLEAR (CLEAR); RBC,URINE 0-5 /HPF (0-5); SQUAMOUS EPITHELIAL CELL,UR MOD Squamous (<= Few); WBC CLUMPS,URINE PRESENT
[2023-10-02 22:26] LABS: CASTS, URINE 11-25 Hyaline Casts /LPF
== END 2023-10-02 22:50 | disposition home or self-care (01) ==
LOC: EDBD → EDUNIT# → ED 19:16
DX: J20.4 Acute bronchitis due to parainfluenza virus (principal)
CPT/HCPCS: 36415; 71045; 80053; 81001; 83690; 85025; 87633; 94640; 99284; 99285; J7512; 81003; 87086

== ENCOUNTER 2023-10-17 16:08 | Outpatient (CLI) | payer MEDICARE | END 2023-10-17 23:59 | disposition short-term general hospital (02) | LOC: EMS 16:08 | DX: R53.1 Weakness (principal); R53.83 Other fatigue; R06.02 Shortness of breath; J18.9 Pneumonia, unspecified organism | CPT/HCPCS: A0425; A0429; A0888 ==

== ENCOUNTER 2023-10-24 18:52 | Outpatient (CLI) | payer MEDICARE | END 2023-10-24 18:53 | disposition short-term general hospital (02) | LOC: EMS 18:52 | DX: R53.81 Other malaise (principal); R06.02 Shortness of breath; R11.0 Nausea | CPT/HCPCS: A0425; A0429; A0888 ==

== ENCOUNTER 2023-11-26 08:00 | Outpatient (CLI) | payer MEDICARE ==
[2023-11-26 17:38] LABS: BASOPHILS % (AUTO) 0.2 %; EOSINOPHILS # (AUTO) 0.2 10^3/uL (0.0-0.7); EOSINOPHILS % (AUTO) 1.6 %; HCT - HEMATOCRIT 35.2 % (37.0-47.0); LYMPHOCYTES % (AUTO) 27.1 %; MEAN CORPUSCULAR HEMOGLOBIN 30.6 pg (27.0-31.0); MEAN CORPUSCULAR HGB CONC 31.3 g/dL (32.0-36.0); MEAN CORPUSCULAR VOLUME 97.8 fL (81.0-99.0); MEAN PLATELET VOLUME 12.7 fL (7.9-10.8); MONOCYTES # (AUTO) 0.8 10^3/uL (0.0-1.0); MONOCYTES % (AUTO) 6.8 %; NEUTROPHILS # (AUTO) 7.1 10^3/uL (1.5-6.6); NEUTROPHILS % (AUTO) 63.8 %; PLT - PLATELET COUNT 199 10^3/uL (130-450); RED CELL DISTRIBUTION WIDTH 13.7 % (12.0-15.0); WHITE BLOOD COUNT 11.1 x10^3/uL (4.8-10.8)
[2023-11-26 17:51] LABS: % IRON SATURATION 23 % (20-50); ALBUMIN 3.3 g/dL (3.2-5.5); ALBUMIN/GLOBULIN RATIO 1.4 (1.0-2.2); ALKALINE PHOSPHATASE 61 IU/L (42-121); ALT ALANINE AMINOTRANSFERASE 14 IU/L (10-60); AST ASPARTATE AMINOTRANSFERASE 10 IU/L (10-42); BILIRUBIN,TOTAL 0.3 mg/dL (0.2-1.0); BUN - BLOOD UREA NITROGEN 24 mg/dL (6-20); CALCIUM 9.1 mg/dL (8.5-10.3); CARBON DIOXIDE - CO2 30 mmol/L (21-32); CHLORIDE 106 mmol/L (101-111); CHOL/HDL RATIO 2.6 (<4.4); CHOLESTEROL 108 mg/dL; CREATININE 1.1 mg/dL (0.6-1.3); GFR - MDRD 48 (>89); GLUCOSE 188 mg/dL (74-104); HDL CHOLESTEROL 42 mg/dL; IRON 63 ug/dL (50-212); LDL CHOLESTEROL,CALCULATED 32 mg/dL; LDL/HDL RATIO 0.8 (<4.4); POTASSIUM 4.8 mmol/L (3.5-4.5); SODIUM 140 mmol/L (135-145); TOTAL IRON BINDING CAPACITY 279 ug/dL (250-450); TOTAL PROTEIN 5.7 g/dL (6.4-8.9); TRANSFERRIN 199 mg/dL (203-362); TRIGLYCERIDES 168 mg/dL (48-352); VLDL CHOLESTEROL 34 mg/dL
[2023-11-26 18:23] LABS: THYROID STIMULATING HORMONE 0.51 uIU/mL (0.34-5.60)
[2023-11-26 18:29] LABS: FERRITIN 131.2 ng/mL (11.0-306.8)
[2023-11-26 21:03] LABS: ESTIMATED AVERAGE GLUCOSE 177 mg/dL (70-100); HEMOGLOBIN A1c% 7.8 % (4.27-6.07)
[2023-11-27 19:07] LABS: THYROGLOBULIN ANTIBODY <1.0 IU/mL (0.0-0.9); THYROID PEROXIDASE (TPO) AB <9 IU/mL (0-34)
== END 2023-11-26 23:59 | disposition home or self-care (01) ==
LOC: LAB.R 08:00
PROVIDERS: ATTEND Nurse Practitioner Family
DX: E11.9 Type 2 diabetes mellitus without complications (principal); E78.5 Hyperlipidemia, unspecified; D64.9 Anemia, unspecified; E04.2 Nontoxic multinodular goiter
CPT/HCPCS: 80053; 80061; 82728; 83036; 83540; 83721; 84439; 84443; 84466; 84481; 85025; 86376; 86800

== ENCOUNTER 2023-12-18 18:50 | Outpatient (CLI) | payer MEDICARE | END 2023-12-18 23:59 | disposition short-term general hospital (02) | LOC: EMS 18:50 | DX: M25.561 Pain in right knee (principal); Z96.659 Presence of unspecified artificial knee joint | CPT/HCPCS: A0425; A0429; A0888 ==

== ENCOUNTER 2024-01-14 16:28 | Outpatient (CLI) | payer MEDICARE | END 2024-01-14 23:59 | disposition short-term general hospital (02) | LOC: EMS 16:28 | DX: E11.65 Type 2 diabetes mellitus with hyperglycemia (principal) | CPT/HCPCS: A0425; A0429; A0888 ==

== ENCOUNTER 2024-02-04 12:56 | Outpatient (CLI) | payer MEDICARE | END 2024-02-04 23:59 | disposition short-term general hospital (02) | LOC: EMS 12:56 | DX: M25.461 Effusion, right knee (principal) | CPT/HCPCS: A0425; A0429; A0888 ==

== ENCOUNTER 2024-04-11 15:54 | Outpatient (CLI) | payer MEDICARE | END 2024-04-11 23:59 | disposition short-term general hospital (02) | LOC: EMS 15:54 | DX: M25.561 Pain in right knee (principal); M25.551 Pain in right hip; W18.39XA Other fall on same level, initial encounter; Y92.099 Unspecified place in other non-institutional residence as the place of occurrence of the external cause | CPT/HCPCS: A0425; A0429; A0888 ==

== ENCOUNTER 2025-07-06 04:10 | Inpatient (IN) ==
--- NOTE | 2025-07-06 04:34 | ED Physician Documentation ---
PD HPI ALTERED MENTAL STATUS Stated complaint Stated Complaint: /AMS Chief complaint Chief Complaint: Neuro Additional information Additional information: BIBA. HPI from EMS, patient. Limited HPI/ROS due to AMS. Patient is a resident at [facility]. Per EMS report, staff at [facility] note 2-3 days of gradual onset, gradually worsening confusion and lethargy. No known recent injury. EMS fingerstick blood sugar 279. Patient is slow to respond but denies any new pain; she says she has diffuse chronic pain. She also denies shortness of breath, cough. Denies headache. [place] Coma Scale Assess Eye opening: To Voice Verbal response: Oriented Motor response: Obeys Commands Total score: 14 Meds/Allgy Home Medications Ambulatory Orders Medication Instructions Recorded Confirmed atorvastatin 40 mg tablet 40 mg PO QPM 11/10/18 insulin glargine 100 unit/mL (3 10 units SQ QPM 07/06/25 mL) subcutaneous pen (Lantus Solostar U-100 Insulin) lisinopril 10 mg tablet 10 mg PO QPM 11/10/18 meloxicam 15 mg tablet 15 mg PO QPM 11/10/18 albuterol sulfate 90 mcg/actuation 1 - 2 puff inhalati on Q4HR PRN 07/29/22 aerosol inhaler (Ventolin HFA) Shortness Of Air/Wheezi ng #1 ea benzonatate 100 mg capsule 100 mg PO TID 07/29/2206/20 dicyclomine 10 mg capsule 20 mg PO QID 07/29/22 gabapentin 600 mg tablet 900 mg PO TID 07/29/2207/06 (Neurontin) metformin 500 mg 24 hr 500 mg PO AC 07/29/22 tablet,extended release (gastric retention) prednisone 20 mg tablet 40 mg (2 x 20 mg) PO DAILY 5 days 07/29/22 07/06/25 #10 tabs propranolol 10 mg tablet 20 mg PO DAILY 07/29/2206/20 albuterol sulfate 2.5 mg/3 mL 2.5 mg (3 mL) inhalation Q4H PRN 10/02/23 (0.083 %) solution for nebulization Wheezing #30 mL Allergies Allergies Allergy/AdvReac Type Severity Reaction Status Date / Time Penicillins Allergy Anaphylaxis Verified 07/06/25 07:00 tramadol Allergy Unknown Verified 07/06/25 07:00 morphine AdvReac Unknown Verified 07/06/25 07:00 [facility] Active Problems All Active Problems (Updated 07/06/25 @ 07:12 by Manav Enriquez MD) Sepsis (Acute) UTI (urinary tract infection) (Acute) Fatigue (Acute) Elevated blood pressure reading (Acute) Blood glucose elevated (Acute) Social History Social History Do you feel safe in your home environment?: Yes History of physical, verbal, emotional, or financial abuse?: No ETOH Use: Frequency: Occasional POLST Patient has POLST: No Exam Exam Vital Signs: Vital Signs x48h Temp Pulse Resp BP Pulse Ox O2 Flow Rate 07/06/25 08:01 76 21 102/60 96 07/06/25 07:15 85 18 89/56 L 98 1 07/06/25 06:45 85 90/57 L 94 2 07/06/25 06:40 36.4 C L 85 27 H 87/58 L 98 2 07/06/25 05:59 35.9 C L 90 25 H 90/53 L 94 2 07/06/25 04:38 35.9 C L 92 28 H 84/64 L 94 2 07/06/25 04:23 2 07/06/25 04:23 35.5 C L 97 27 H 84/44 L 94 2 07/06/25 04:17 36.6 C 113 H 26 H 96/58 L 94 Constitutional abnormal general appearance (lethargic) and level of alertness abnormal (lethargic) diaphoretic, hypokinetic. follows commands but needs repeated instruction for some commands HENMT head/scalp atraumatic Eyes PERRL and EOMs intact bilaterally Respiratory breath sounds equal bilaterally and clear to auscultation bilaterally Cardiovascular normal heart rate noted Gastrointestinal abdomen soft to palpation, nontender to palpation, nondistended and normoactive bowel sounds Neurology GCS calculation - Eye opening: To Voice Verbal response: Oriented Motor response: Obeys Commands [place] Coma Scale total score: 14 Results Vitals Vitals: Vital Signs - 24 hr 07/06/25 04:17 07/06/25 04:23 07/06/25 04:23 Temperature 36.6 C 35.5 C L Temperature Source Temporal Artery Scan Temporal Artery Scan Pulse Rate 113 H 97 Respiratory Rate 26 H 27 H Blood Pressure 96/58 L 84/44 L O2 Saturation 94 94 Oxygen Delivery Method Nasal Cannula O2 Source Room air Nasal cannula If not protocol: Oxygen Flow, liters/minute 2 Pain Intensity 0 8 07/06/25 04:23 07/06/25 04:38 07/06/25 05:59 Temperature 35.9 C L 35.9 C L Temperature Source Temporal Artery Scan Temporal Artery Scan Pulse Rate 92 90 Respiratory Rate 28 H 25 H Blood Pressure 84/64 L 90/53 L O2 Saturation 94 94 Oxygen Delivery Method Nasal Cannula O2 Source Nasal cannula Nasal cannula If not protocol: Oxygen Flow, liters/minute 2 2 2 Pain Intensity 8 6 07/06/25 06:40 07/06/25 06:45 07/06/25 07:15 Temperature 36.4 C L Temperature Source Oral Pulse Rate 85 85 85 Respiratory Rate 27 H 18 Blood Pressure 87/58 L 90/57 L 89/56 L O2 Saturation 98 94 98 Oxygen Delivery Method O2 Source Nasal cannula Nasal cannula Nasal cannula If not protocol: Oxygen Flow, liters/minute 2 2 1 Pain Intensity 6 6 07/06/25 08:01 Temperature Temperature Source Pulse Rate 76 Respiratory Rate 21 Blood Pressure 102/60 O2 Saturation 96 Oxygen Delivery Method O2 Source Room air If not protocol: Oxygen Flow, liters/minute Pain Intensity Oxygen O2 Source Room air Labs Labs: Laboratory Tests 07/06/25 07/06/25 07/06/25 04:52 06:20 07:35 WBC 13.9 H RBC 4.14 L Hgb 12.7 Hct 38.7 MCV 93.5 MCH 30.7 MCHC 32.8 RDW 13.7 Plt Count 170 MPV 10.9 H Neut # (Auto) 12.7 H Lymph # (Auto) 0.4 L [place] # (Auto) 0.7 Eos # (Auto) 0.0 Baso # (Auto) 0.0 Absolute Nucleated RBC 0.00 Nucleated RBC % 0.0 Sodium 133 L Potassium 4.1 Chloride 101 Carbon Dioxide 18 L Anion Gap 14.0 H BUN 33 H Creatinine 1.9 H Estimated GFR (MDRD) 26 L Glucose 299 H Lactic Acid 1.5 Calcium 8.5 Total Bilirubin 0.9 AST 20 ALT 15 Alkaline Phosphatase 73 Total Protein 6.3 L Albumin 3.3 Globulin 3.0 Albumin/Globulin Ratio 1.1 Urine Color YELLOW YELLOW Urine Clarity HAZY SL. CLOUDY Urine pH 6.0 6.0 Ur Specific [place] 1.010 1.020 Urine Protein TRACE TRACE Urine Glucose (UA) >=1000 H >=1000 H Urine Ketones 40 H 15 H Urine Occult Blood TRACE SMALL Urine Nitrite NEGATIVE NEGATIVE Urine Bilirubin NEGATIVE NEGATIVE Urine Urobilinogen 0.2 (NORMAL) 0.2 (NORMAL) Ur Leukocyte Esterase TRACE H NEGATIVE Urine RBC 6-10 H 6-10 H Urine WBC >25 H 11-25 H Urine WBC Clumps PRESENT Ur Squamous Epith Cells MANY Squamous H MOD Squamous H Urine Bacteria Moderate H Moderate H Urine Casts 0-2 Granular Casts 0-2 Granular Casts Ur Microscopic Review INDICATED Urine Culture Comments NOT INDICATED NOT INDICATED Nasal Adenovirus (PCR) NOT DETECTED Nasal B. parapertussis DNA (PCR) NOT DETECTED Nasal Coronavir 229E PCR NOT DETECTED Nasal Coronavir HKU1 PCR NOT DETECTED Nasal Coronavir NL63 PCR NOT DETECTED Nasal Coronavir OC43 PCR NOT DETECTED Nasal Enterovir/Rhinovir PCR NOT DETECTED Nasal Influenza B PCR NOT DETECTED Nasal Influenza A PCR NOT DETECTED Nasal Parainfluen 1 PCR NOT DETECTED Nasal Parainfluen 2 PCR NOT DETECTED Nasal Parainfluen 3 PCR NOT DETECTED Nasal Parainfluen 4 PCR NOT DETECTED Nasal RSV (PCR) NOT DETECTED Nasal B.pertussis DNA PCR NOT DETECTED Nasal C.pneumoniae (PCR) NOT DETECTED [place] Human Metapneumo PCR NOT DETECTED Nasal M.pneumoniae (PCR) NOT DETECTED Nasal SARS-CoV-2 (PCR) NOT DETECTED Rads (name of study) CXR: Relevant Findings:: Prelim report reviewed and See rad report PD Medical Decision Making ED course Complexity details: reviewed results, re-evaluated patient, considered dif ferential and d/w patient ED course: Patient meets sepsis criteria and thus given triple hip coverage antibiotics (accounting for penicillin allergy given vancomycin, metronidazole, Azactam). Blood cultures drawn and sent to the lab. Urinalysis (obtained via in/out catheter) is suggestive of UTI but moderate squamous cells makes a contaminated specimen likely. Thus, repeat urinalysis is ordered and result pending at the end of my shift. Mild leukocytosis (WBC 13.9). Mildly elevated creatinine (1.9); previous results in [employer] reflect normal creatinine but most recent previous results are from November 2023. Normal lactate. Respiratory PCR panel negative. Mild tachycardia on presentation (110-120, ST on monitor), and mild hypotension early in ED stay (SBP 80s-90s). Tachycardia resolved after 1 L normal saline IV, and the blood pressure readings improved to 100s SBP after total of 2 L NS IV. Her mental status improved towards end of my shift. Held in ED throughout my shift due to no beds available at [facility]; plan is to admit for suspected urosepsis Care of patient turned over to oncoming ED physician (Dr. Enriquez) at end of my shift. Sepsis Event Sepsis Onset Date: 07/06/25 Sepsis Onset Time: 04:45 Current Stage of Sepsis: Sepsis Initial Hypotension: SBP less than 90 mmHg Possible source of Sepsis: Genitourinary Mental/Cognitive Status: Lethargic Capillary refill: Less than 2 seconds Peripheral Pulse Strength: 2+ Slightly Diminished Peripheral Pulse Location: Radial Bedside ultrasound performed: No Discharge Plan Discharge Patient Disposition: 66 [facility] DC/Xfer Condition: Serious Clinical Impression: Sepsis UTI (urinary tract infection) Qualifiers: Urinary tract infection type: site unspecified Hematuria presence: without hematuria Qualified Code(s): N39.0 - Urinary tract infection, site not specified Prescriptions: No Action atorvastatin 40 MG tablet 40 mg PO QPM meloxicam 15 MG tablet 15 mg PO QPM Patient Comments: TK 1 T PO ONCE D PRF HIP PAIN lisinopril 10 MG tablet 10 mg PO QPM Patient Comments: TK 1 T PO ONCE D FOR HIGH BLOOD PRESSURE insulin glargine [Lantus Solostar U-100 Insulin] 100 UNIT/ML insulin pen 10 units SQ QPM Patient Comments: INJECT 10 UNITS SQ NIGHTLY dicyclomine 10 MG capsule 20 mg PO QID benzonatate 100 MG capsule 100 mg PO TID metformin 500 MG tablet,ER delbert.retention 24 hr 500 mg PO AC Rx Instructions: with evening meal gabapentin [Neurontin] 600 MG tablet 900 mg PO TID propranolol 10 MG tablet 20 mg PO DAILY prednisone 20 MG tablet 40 mg PO DAILY 5 Days Qty: 10 0RF Rx Instructions: 2X 20 MG TABS. QS albuterol sulfate [Ventolin HFA] 200 PUFFS/18 GM HFA aerosol inhaler 1 - 2 puff inhalation Q4HR PRN (Reason: Shortness Of Air/Wheezing) Qty: 1 0RF albuterol sulfate 2.5 MG/3 ML solution for nebulization 2.5 mg inhalation Q4H PRN (Reason: Wheezing) Qty: 30 0RF Rx Instructions: 1 AMPULE Print Language: Persian
[2025-07-06] MEDS ORDERED: VANCOMYCIN 1 GM VIAL ONE (04:54)
[2025-07-06 04:59] LABS: HCT - HEMATOCRIT 38.7 % (37.0-47.0); HGB - HEMOGLOBIN 12.7 g/dL (12.0-16.0); MEAN PLATELET VOLUME 10.9 fL (7.9-10.8); NRBC ABSOLUTE COUNT (AUTO) 0.00 x10^3/uL; NUCLEATED RED BLOOD CELLS AUTO 0.0 /100WBC; PLT - PLATELET COUNT 170 10^3/uL (130-450); RED CELL DISTRIBUTION WIDTH 13.7 % (12.0-15.0)
[2025-07-06 05:15] LABS: ALT ALANINE AMINOTRANSFERASE 15.0 IU/L (10-60); AST ASPARTATE AMINOTRANSFERASE 20.0 IU/L (10-42); BUN - BLOOD UREA NITROGEN 33.0 mg/dL (6-20); CARBON DIOXIDE - CO2 18.0 mmol/L (21-32); CREATININE 1.9 mg/dL (0.6-1.3); GFR - MDRD 26.0 (>89)
[2025-07-06] MEDS: SODIUM CHLORIDE 0.9% 1,000 ML IV STA ×2 (05:15→06:30)
[2025-07-06] MEDS: AZTREONAM 2 GM in SODIUM CHLORIDE 0.9% MINIBAG 100 ML IV STA (05:20)
[2025-07-06] MEDS: VANCOMYCIN INJ 2.5 GM in SODIUM CHLORIDE 0.9% 500 ML IV STA (05:23)
[2025-07-06 06:32] LABS: KETONES,URINE (UA) 40 mg/dL (NEGATIVE); OCCULT BLOOD,URINE TRACE (NEGATIVE)
[2025-07-06 06:33] LABS: GLUCOSE, URINE (UA) >=1000 mg/dL (NEGATIVE)
[2025-07-06 06:39] LABS: WBC CLUMPS,URINE PRESENT
[2025-07-06 06:40] LABS: CASTS, URINE 0-2 Granular Casts /LPF; SQUAMOUS EPITHELIAL CELL,UR MANY Squamous (<= Few)
--- NOTE | 2025-07-06 07:09 | ED Physician Documentation ---
ED Addendum Addendum Addendum: Care from Dr Herrera at 7am. A few days increasing lethargy. + UTI, + leukocytosis. Urine is contaminated so we will repeat and obtain CT imaging of the belly to rule out obstruction. She is already received broad-spectrum antibiotics with aztreonam noting penicillin allergy. Plan to admit after that but no beds available. Decision to admit made at shift change, 7 AM. Will be boarding in the emergency department pending discharges. CT of the abdomen and pelvis demonstrates no hydronephrosis or obstruction. There is bilateral perinephric fat stranding contributing to the diagnosis with pyelonephritis mild to moderate constipation. I was notified if you minutes before 1 PM the bed became available and spoke with Dr. Ozuna for admission at 12:59 PM. Discharge Plan Discharge Patient Disposition: 66 [facility] DC/Xfer Condition: Serious Clinical Impression: Sepsis UTI (urinary tract infection) Qualifiers: Urinary tract infection type: site unspecified Hematuria presence: without hematuria Qualified Code(s): N39.0 - Urinary tract infection, site not specified Prescriptions: No Action atorvastatin 40 MG tablet 40 mg PO QPM meloxicam 15 MG tablet 15 mg PO QPM Patient Comments: TK 1 T PO ONCE D PRF HIP PAIN lisinopril 10 MG tablet 10 mg PO QPM Patient Comments: TK 1 T PO ONCE D FOR HIGH BLOOD PRESSURE insulin glargine [Lantus Solostar U-100 Insulin] 100 UNIT/ML insulin pen 10 units SQ QPM Patient Comments: INJECT 10 UNITS SQ NIGHTLY dicyclomine 10 MG capsule 20 mg PO QID benzonatate 100 MG capsule 100 mg PO TID metformin 500 MG tablet,ER delbert.retention 24 hr 500 mg PO AC Rx Instructions: with evening meal gabapentin [Neurontin] 600 MG tablet 900 mg PO TID propranolol 10 MG tablet 20 mg PO DAILY prednisone 20 MG tablet 40 mg PO DAILY 5 Days Qty: 10 0RF Rx Instructions: 2X 20 MG TABS. QS albuterol sulfate [Ventolin HFA] 200 PUFFS/18 GM HFA aerosol inhaler 1 - 2 puff inhalation Q4HR PRN (Reason: Shortness Of Air/Wheezing) Qty: 1 0RF albuterol sulfate 2.5 MG/3 ML solution for nebulization 2.5 mg inhalation Q4H PRN (Reason: Wheezing) Qty: 30 0RF Rx Instructions: 1 AMPULE Print Language: Dutch
--- OUTSIDE RECORDS SUMMARY | 2025-07-06 07:22 | EXTERNAL MEDICAL SUMMARY RPT | Continuity of Care Document ---
Author Organization [facility] Address [address] [address] Phone Care Team Providers Care Buffet Waiter/Waitress Name Role Phone Unavailable Unavailable Unavailable Tigist Pelayo Unavailable Unavailable Lorena Allen Unavailable Unavailable Allergies and Intolerances date description facility reaction severity 2025-04-10 07:43:15 [facility] (no reactio n) (no severity) 2025-04-15 17:13:13 [facility] (no reactio n) (no severity) 2025-04-24 07:04:13 [facility] (no reactio n) (no severity) 2025-04-30 07:35:44 [facility] (no reactio n) (no severity) 2025-05-20 06:56:29 [facility] (no reactio n) (no severity) 2025-05-29 07:45:58 [facility] (no reactio n) (no severity) 2025-06-18 14:23:54 [facility] (no reactio n) (no severity) 2025-06-18 15:23:54 [facility] (no reactio n) (no severity) 2025-06-26 07:42:29 [facility] (no reactio n) (no severity) Medications date description facility 2025-05-28 00:00 Budesonide-Formoterol [facility] 2025-05-29 00:00 Budesonide-Formoterol [facility] 2025-05-14 00:00 Ipratropium-Albuterol [facility] 2025-05-15 00:00 Ipratropium-Albuterol [facility] 2025-05-15 00:00 [facility] 2025-06-03 00:00 [facility] 2025-05-28 00:00 [facility] 2025-05-29 00:00 [facility] 2025-06-26 00:00 [facility] 00:00 Fluticasone Propionate [facility] 2025-04-30 00:00 Fluticasone Propionate [facility] 2025-06-11 00:00 Fluticasone Propionate [facility] 2025-04-18 00:00 [facility]floxacin [facility] 2025-04-19 00:00 Ciprofloxacin [facility] 2025-05-15 00:00 Lisinopril [facility] 2025-04-16 00:00 Acetaminophen [facility] 2025-04-17 00:00 Acetaminophen [facility] 2025-05-15 00:00 Ketoconazole [facility]25[facility]05-20 [facility]:00 Peyvqkuvtm-Trzkfdtq-Imtnveydbu [facility] 2025-05-12 00:00 Insulin [facility] 2025-05-13 00:00 [facility]20 00:00 Insulin [facility] 2025-04-16 00:00 [facility] 2025-04-17 00:00 [facility] 2025-04-15 [facility] 2025-04-10 00:00 Tirzepatihi (Weight Loss) [facility] 2025-04-10 00:00 Tirzepatihi (Weight Loss) [facility] 2025-04-23 00:00 [facility] 2025-04-24 00:00 [facility] 2025-06-17 00:00 [facility]Ekko [facility]15 00:00 Amlodipine [facility] 2025-05-15 00:00 Aspirin [facility] 2025-04-10 00:00 [facility] 2025-04-10 00:00 [facility]15 00:00 [facility] 2025-05-09 00:00 [facility] 2025-05-12 00:00 Prednisone [facility] 2025-05-13 00:00 Prednisone [facility] 2025-04-18 [facility] 2025-04[facility]19 00:00 [facility] 2025-05-15 00:00 [facility] 2025-04-18 00:00 [facility]ulin [facility]ine [facility]-04[facility]19 00:00 Insulin Glargine [facility] 2025-05-12 00:00 Insulin Glargine [facility] 2025-05-13 00:00 Insulin Glargine [facility] 2025-05-20 00:00 Insulin Glargine [facility] 2025-06-18 00:00 [facility] 2025-06-26 00:00 [facility]25[facility]05-15 [facility] 2025-04-18 00:00 Polyethylene Glycol [address] [place] [address] 2025-04-19 00:00 Polyethylene Glycol [address] [place] [address] 2025-05-15 00:00 Polyethylene Glycol [address] [place] [address] 2025-04-18 00:00 [facility]19 [facility]15 00:00 [facility] Problems date description facility 2025-04-07 10:54 Urinary tract infection, site n ot specified [facility] 2025-04-08 08:22 Urinary tract infection, site n ot specified [facility] 2025-04-08 08:24 [facility] 2025-04-08 10:51 Urinary tract infection, site n ot specified [facility] 2025-04-08 11:04 Urinary tract infection, site n ot specified [facility] 2025-04-15 14:31 Urinary tract infection, site n ot specified [facility] 2025-04-16 00:00 Stage 3 chronic kidney disease [facility] 2025-04-16 00:00 Sedentary lifestyle [facility] 2025-04-16 08:39 Urinary tract infection, site n ot specified [facility] 2025-04-16 12:34 Urinary tract infection, site n ot specified [facility] 2025-04-16 13:04 Urinary tract infection, site n ot specified [facility] 2025-04-17 13:55 Urinary tract infection, site n ot specified [facility] 2025-04-18 15:08 Urinary tract infection, site n ot specified [facility] 2025-04-19 10:55 Urinary tract infection, site n ot specified [facility] 2025-04-19 15:32 Urinary tract infection, site n ot specified [facility] 2025-04-21 09:56 Urinary tract infection, site n ot specified [facility] 2025-04-21 12:13 Urinary tract infection, site n ot specified [facility] 2025-04-22 07:05 Urinary tract infection, site n ot specified [facility] 2025-04-23 11:54 [facility] 2025-04-24 07:05 Urinary tract infection, site n ot specified [facility] 2025-04-24 18:31 Urinary tract infection, site n ot specified [facility] 2025-04-30 07:36 Urinary tract infection, site n ot specified [facility] 2025-05-06 12:08 Essential (primary) hypertensio [facility] 2025-05-06 12:08 Chronic kidney disease, unspeci fied [facility] 2025-05-06 12:08 Other forms of dyspnea [facility] 2025-05-06 12:08 Dizziness and giddiness [facility] 2025-05-06 12:08 Other specified abnormal findin gs of blood chemistry [facility] 2025-05-06 12:08 Personal history of other endocrine, nutritional and metabol [facility] 2025-05-06 12:08 Other specified pers onal risk factors, not elsewhere classif [facility] 2025-05-09 00:00 Upper respiratory tract infecti on [facility] 2025-05-09 00:00 Exacerbation of asthma [facility]25-05-09 00:00 Wheezing [facility] 2025-05-10 00:00 Sepsis [facility] 2025-05-10 00:00 Thyroid nodule [facility] 2025-05-10 00:00 Hyperglycemia [facility] 2025-05-10 00:00 History of diabetes mellitus [facility] 2025-05-10 11:18 Sepsis, unspecified organism Is [facility] 2025-05-10 11:41 Sepsis, unspecified organism Is [facility] 2025-05-11 07:42 Sepsis, unspecified organism Is [facility] 2025-05-13 16:32 Sepsis, unspecified organism Is [facility] 2025-05-14 08:54 Sepsis, unspecified organism Is [facility] 2025-05-15 08:07 Nontoxic multinodular go[facility] 2025-05-15 11:06 Shortness of breath [facility] 2025-05-15 15:25 Major depressive disorder, recu rrent, [facility] 2025-05-15 15:25 Post-traumatic stress disorder, unspecified [facility] 2025-05-20 00:00 Thyromegaly [facility] 2025-05-20 00:00 Coronary artery disease [facility] 2025-05-20 00:00 Shortness of breath [facility] 2025-05-20 06:58 Major depressive disorder, recu rrent, [facility] 2025-05-20 06:58 Post-traumatic stress disorder, unspecified [facility] 2025-05-29 00:00 Other specified experiential therapist josse obstructive pulmonary disease [facility] 2025-06-03 14:12 Palpitations [facility] 2025-06-03 14:12 Shortness of breath [facility] 2025-06-03 14:12 Dizziness and giddiness [facility] 2025-06-03 14:12 Other specified pers onal risk factors, not elsewhere classif [facility] 2025-06-18 00:00 Severe persistent asthma with e xacerbation [facility] 2025-06-26 07:44 Major depressive disorder, recu rrent, [facility] 2025-06-26 07:44 Post-traumatic stress disorder, [facility] Procedures date description facility 2025-05-06 00:[address] [facility] 2025-05-10 00:00 NM SPECT imaging ryan card perfus w multi studies incl rest, stress and redistrib [facility] 2025-05-15 00:00 Imaging guided fine needle biop sy of thyroid [facility] 2025-04-15 00:00 Blood culture [facility] 2025-05-10 00:00 Blood culture [facility] 2025-04-15 00:00 IVP (intravenous pyelogram) [facility] 2025-04-16 00:00 IVP (intravenous pyelogram) [facility] 2025-04-15 00:00 X-ray of chest, single view [facility] 2025-05-09 00:00 X-ray of chest, single view [facility] 2025-05-06 00:00 Complete Doppler echocardiograp [facility] 2025-05-10 00:00 Computed tomography angiography of chest with contrast for pulmonary embolus [facility] 2025-05-10 00:00 CT abdomen pelvis w con [facility] Results/Labs test date facility value unit notes Result panel 1 Specimen collection (procedure) (no date) [facility] (missing) (missing) (missing) Result panel 2 Specimen collection (procedure) (no date) [facility] (missing) (missing) (missing) Result panel 3 Specimen collection (procedure) (no date) [facility] (missing) (missing) (missing) Result panel 4 Specimen collection (procedure) (no date) [facility] (missing) (missing) (missing) Result panel 5 Specimen collection (procedure) (no date) [facility] (missing) (missing) (missing) Result panel 6 Specimen collection (procedure) (no date) [facility] (missing) (missing) (missing) Result panel 7 Specimen collection (procedure) (no date) [facility] (missing) (missing) (missing) Result panel 8 Specimen collection (procedure) (no date) [facility] (missing) (missing) (missing) Result panel 9 Specimen collection (procedure) (no date) [facility] (missing) (missing) (missing) Result panel 10 Specimen collection (procedure) (no date) [facility] (missing) (missing) (missing) Result panel 11 Specimen collection (procedure) (no date) [facility] (missing) (missing) (missing) Result panel 12 Specimen collection (procedure) (no date) [facility] (missing) (missing) (missing) Result panel 13 Specimen collection (procedure) (no date) [facility] (missing) (missing) (missing) Result panel 14 Specimen collection (procedure) (no date) [facility] (missing) (missing) (missing) Result panel 15 Specimen collection (procedure) (no date) [facility] (missing) (missing) (missing) Result panel 16 Specimen collection (procedure) (no date) [facility] (missing) (missing) (missing) Result panel 17 Specimen collection (procedure) (no date) [facility] (missing) (missing) (missing) Result panel 18 Specimen collection (procedure) (no date) [facility] (missing) (missing) (missing) Result panel 19 Specimen collection (procedure) (no date) [facility] (missing) (missing) (missing) Result panel 20 Specimen collection (procedure) (no date) [facility] (missing) (missing) (missing) Result panel 21 Specimen collection (procedure) (no date) [facility] (missing) (missing) (missing) Result panel 22 Specimen collection (procedure) (no date) [facility] (missing) (missing) (missing) Result panel 23 Specimen collection (procedure) (no date) [facility] (missing) (missing) (missing) Result panel 24 Specimen collection (procedure) (no date) [facility] (missing) (missing) (missing) Result panel 25 Specimen collection (procedure) (no date) [facility] (missing) (missing) (missing) Result panel 26 Specimen collection (procedure) (no date) [facility] (missing) (missing) (missing) Result panel 27 Specimen collection (procedure) (no date) [facility] (missing) (missing) (missing) Result panel 28 Specimen collection (procedure) (no date) [facility] (missing) (missing) (missing) Result panel 29 Specimen collection (procedure) (no date) [facility] (missing) (missing) (missing) Result panel 30 Specimen collection (procedure) (no date) [facility] (missing) (missing) (missing) Result panel 31 Specimen collection (procedure) (no date) [facility] (missing) (missing) (missing) Result panel 32 Specimen collection (procedure) (no date) [facility] (missing) (missing) (missing) Result panel 33 Specimen collection (procedure) (no date) [facility] (missing) (missing) (missing) Result panel 34 Specimen collection (procedure) (no date) [facility] (missing) (missing) (missing) Result panel 35 Specimen collection (procedure) (no date) [facility] (missing) (missing) (missing) Result panel 36 Specimen collection (procedure) (no date) [facility] (missing) (missing) (missing) Result panel 37 Specimen collection (procedure) (no date) [facility] (missing) (missing) (missing) Result panel 38 Specimen collection (procedure) (no date) [facility] (missing) (missing) (missing) Result panel 39 Specimen collection (procedure) (no date) [facility] (missing) (missing) (missing) Result panel 40 Specimen collection (procedure) (no date) [facility] (missing) (missing) (missing) Result panel 41 Specimen collection (procedure) (no date) [facility] (missing) (missing) (missing) Result panel 42 Specimen collection (procedure) (no date) [facility] (missing) (missing) (missing) Result panel 43 Specimen collection (procedure) (no date) [facility] (missing) (missing) (missing) Result panel 44 Specimen collection (procedure) (no date) [facility] (missing) (missing) (missing) Result panel 45 Specimen collection (procedure) (no date) [facility] (missing) (missing) (missing) Result panel 46 Specimen collection (procedure) (no date) [facility] (missing) (missing) (missing) Result panel 47 Specimen collection (procedure) (no date) [facility] (missing) (missing) (missing) Result panel 48 Specimen collection (procedure) (no date) [facility] (missing) (missing) (missing) Result panel 49 Specimen collection (procedure) (no date) [facility] (missing) (missing) (missing) Result panel 50 Specimen collection (procedure) (no date) [facility] (missing) (missing) (missing) Result panel 51 Specimen collection (procedure) (no date) [facility] (missing) (missing) (missing) Result panel 52 Specimen collection (procedure) (no date) [facility] (missing) (missing) (missing) Result panel 53 Specimen collection (procedure) (no date) [facility] (missing) (missing) (missing) Result panel 54 Specimen collection (procedure) (no date) [facility] (missing) (missing) (missing) Result panel 55 Specimen collection (procedure) (no date) [facility] (missing) (missing) (missing) Result panel 56 Specimen collection (procedure) (no date) [facility] (missing) (missing) (missing) Result panel 57 Specimen collection (procedure) (no date) [facility] (missing) (missing) (missing) Result panel 58 Specimen collection (procedure) (no date) [facility] (missing) (missing) (missing) Result panel 59 Specimen collection (procedure) (no date) [facility] (missing) (missing) (missing) Result panel 60 Specimen collection (procedure) (no date) [facility] (missing) (missing) (missing) Result panel 61 Specimen collection (procedure) (no date) [facility] (missing) (missing) (missing) Result panel 62 Specimen collection (procedure) (no date) [facility] (missing) (missing) (missing) Result panel 63 Specimen collection (procedure) (no date) [facility] (missing) (missing) (missing) Result panel 64 Specimen collection (procedure) (no date) [facility] (missing) (missing) (missing) Result panel 65 Specimen collection (procedure) (no date) [facility] (missing) (missing) (missing) Result panel 66 Specimen collection (procedure) (no date) [facility] (missing) (missing) (missing) Result panel 67 Specimen collection (procedure) (no date) [facility] (missing) (missing) (missing) Result panel 68 Specimen collection (procedure) (no date) [facility] (missing) (missing) (missing) Result panel 69 Specimen collection (procedure) (no date) [facility] (missing) (missing) (missing) Result panel 70 Specimen collection (procedure) (no date) [facility] (missing) (missing) (missing) Result panel 71 Specimen collection (procedure) (no date) [facility] (missing) (missing) (missing) Result panel 72 Specimen collection (procedure) (no date) [facility] (missing) (missing) (missing) Result panel 73 Specimen collection (procedure) (no date) [facility] (missing) (missing) (missing) Result panel 74 Specimen collection (procedure) (no date) [facility] (missing) (missing) (missing) Result panel 75 Specimen collection (procedure) (no date) [facility] (missing) (missing) (missing) Result panel 76 Specimen collection (procedure) (no date) [facility] (missing) (missing) (missing) Result panel 77 Specimen collection (procedure) (no date) [facility] (missing) (missing) (missing) Result panel 78 Specimen collection (procedure) (no date) [facility] (missing) (missing) (missing) Result panel 79 Specimen collection (procedure) (no date) [facility] (missing) (missing) (missing) Result panel 80 Specimen collection (procedure) (no date) [facility] (missing) (missing) (missing) Result panel 81 Specimen collection (procedure) (no date) [facility] (missing) (missing) (missing) Result panel 82 Specimen collection (procedure) (no date) [facility] (missing) (missing) (missing) Result panel 83 Specimen collection (procedure) (no date) [facility] (missing) (missing) (missing) Result panel 84 Specimen collection (procedure) (no date) [facility] (missing) (missing) (missing) Result panel 85 Specimen collection (procedure) (no date) [facility] (missing) (missing) (missing) Result panel 86 Specimen collection (procedure) (no date) [facility] (missing) (missing) (missing) Result panel 87 Specimen collection (procedure) (no date) [facility] (missing) (missing) (missing) Result panel 88 Specimen collection (procedure) (no date) [facility] (missing) (missing) (missing) Result panel 89 Specimen collection (procedure) (no date) [facility] (missing) (missing) (missing) Result panel 90 Specimen collection (procedure) (no date) [facility] (missing) (missing) (missing) Result panel 91 Specimen collection (procedure) (no date) [facility] (missing) (missing) (missing) Result panel 92 Specimen collection (procedure) (no date) [facility] (missing) (missing) (missing) Result panel 93 Specimen collection (procedure) (no date) [facility] (missing) (missing) (missing) Result panel 94 Specimen collection (procedure) (no date) [facility] (missing) (missing) (missing) Result panel 95 Specimen collection (procedure) (no date) [facility] (missing) (missing) (missing) Result panel 96 Specimen collection (procedure) (no date) [facility] (missing) (missing) (missing) Result panel 97 Specimen collection (procedure) (no date) [facility] (missing) (missing) (missing) Result panel 98 Specimen collection (procedure) (no date) [facility] (missing) (missing) (missing) Result panel 99 Specimen collection (procedure) (no date) [facility] (missing) (missing) (missing) Result panel 100 Specimen collection (procedure) (no date) [facility] (missing) (missing) (missing) Result panel 101 Specimen collection (procedure) (no date) [facility] (missing) (missing) (missing) Result panel 102 Specimen collection (procedure) (no date) [facility] (missing) (missing) (missing) Result panel 103 Specimen collection (procedure) (no date) [facility] (missing) (missing) (missing) Result panel 104 Specimen collection (procedure) (no date) [facility] (missing) (missing) (missing) Result panel 105 Specimen collection (procedure) (no date) [facility] (missing) (missing) (missing) Result panel 106 Specimen collection (procedure) (no date) [facility] (missing) (missing) (missing) Result panel 107 Specimen collection (procedure) (no date) [facility] (missing) (missing) (missing) Result panel 108 Specimen collection (procedure) (no date) [facility] (missing) (missing) (missing) Result panel 109 Specimen collection (procedure) (no date) [facility] (missing) (missing) (missing) Result panel 110 Specimen collection (procedure) (no date) [facility] (missing) (missing) (missing) Result panel 111 Specimen collection (procedure) (no date) [facility] (missing) (missing) (missing) Result panel 112 Specimen collection (procedure) (no date) [facility] (missing) (missing) (missing) Result panel 113 Specimen collection (procedure) (no date) [facility] (missing) (missing) (missing) Result panel 114 Specimen collection (procedure) (no date) [facility] (missing) (missing) (missing) Result panel 115 Specimen collection (procedure) (no date) [facility] (missing) (missing) (missing) Result panel 116 Specimen collection (procedure) (no date) [facility] (missing) (missing) (missing) Result panel 117 Specimen collection (procedure) (no date) [facility] (missing) (missing) (missing) Result panel 118 Specimen collection (procedure) (no date) [facility] (missing) (missing) (missing) Result panel 119 Specimen collection (procedure) (no date) [facility] (missing) (missing) (missing) Result panel 120 Specimen collection (procedure) (no date) [facility] (missing) (missing) (missing) Result panel 121 Specimen collection (procedure) (no date) [facility] (missing) (missing) (missing) Result panel 122 Specimen collection (procedure) (no date) [facility] (missing) (missing) (missing) Result panel 123 Specimen collection (procedure) (no date) [facility] (missing) (missing) (missing) Result panel 124 Specimen collection (procedure) (no date) [facility] (missing) (missing) (missing) Result panel 125 Specimen collection (procedure) (no date) [facility] (missing) (missing) (missing) Result panel 126 Specimen collection (procedure) (no date) [facility] (missing) (missing) (missing) Result panel 127 Specimen collection (procedure) (no date) [facility] (missing) (missing) (missing) Result panel 128 Specimen collection (procedure) (no date) [facility] (missing) (missing) (missing) Result panel 129 Specimen collection (procedure) (no date) [facility] (missing) (missing) (missing) Result panel 130 Specimen collection (procedure) (no date) [facility] (missing) (missing) (missing) Result panel 131 Specimen collection (procedure) (no date) [facility] (missing) (missing) (missing) Result panel 132 Specimen collection (procedure) (no date) [facility] (missing) (missing) (missing) Result panel 133 Specimen collection (procedure) (no date) [facility] (missing) (missing) (missing) Result panel 134 Specimen collection (procedure) (no date) [facility] (missing) (missing) (missing) Result panel 135 Specimen collection (procedure) (no date) [facility] (missing) (missing) (missing) Result panel 136 Specimen collection (procedure) (no date) [facility] (missing) (missing) (missing) Result panel 137 Specimen collection (procedure) (no date) [facility] (missing) (missing) (missing) Result panel 138 Specimen collection (procedure) (no date) [facility] (missing) (missing) (missing) Result panel 139 Specimen collection (procedure) (no date) [facility] (missing) (missing) (missing) Result panel 140 Specimen collection (procedure) (no date) [facility] (missing) (missing) (missing) Result panel 141 Specimen collection (procedure) (no date) [facility] (missing) (missing) (missing) Result panel 142 Specimen collection (procedure) (no date) [facility] (missing) (missing) (missing) Result panel 143 Specimen collection (procedure) (no date) [facility] (missing) (missing) (missing) Result panel 144 Specimen collection (procedure) (no date) [facility] (missing) (missing) (missing) Result panel 145 Specimen collection (procedure) (no date) [facility] (missing) (missing) (missing) Result panel 146 Specimen collection (procedure) (no date) [facility] (missing) (missing) (missing) Result panel 147 Specimen collection (procedure) (no date) [facility] (missing) (missing) (missing) Result panel 148 Specimen collection (procedure) (no date) [facility] (missing) (missing) (missing) Result panel 149 Specimen collection (procedure) (no date) [facility] (missing) (missing) (missing) Result panel 150 Specimen collection (procedure) (no date) [facility] (missing) (missing) (missing) Result panel 151 Specimen collection (procedure) (no date) [facility] (missing) (missing) (missing) Result panel 152 Specimen collection (procedure) (no date) [facility] (missing) (missing) (missing) Result panel 153 Specimen collection (procedure) (no date) [facility] (missing) (missing) (missing) Result panel 154 Specimen collection (procedure) (no date) [facility] (missing) (missing) (missing) Result panel 155 Specimen collection (procedure) (no date) [facility] (missing) (missing) (missing) Result panel 156 Specimen collection (procedure) (no date) [facility] (missing) (missing) (missing) Result panel 157 Specimen collection (procedure) (no date) [facility] (missing) (missing) (missing) Result panel 158 Specimen collection (procedure) (no date) [facility] (missing) (missing) (missing) Result panel 159 Specimen collection (procedure) (no date) [facility] (missing) (missing) (missing) Result panel 160 Specimen collection (procedure) (no date) [facility] (missing) (missing) (missing) Result panel 161 Specimen collection (procedure) (no date) [facility] (missing) (missing) (missing) Result panel 162 Specimen collection (procedure) (no date) [facility] (missing) (missing) (missing) Result panel 163 Specimen collection (procedure) (no date) [facility] (missing) (missing) (missing) Result panel 164 Specimen collection (procedure) (no date) [facility] (missing) (missing) (missing) Result panel 165 Specimen collection (procedure) (no date) [facility] (missing) (missing) (missing) Result panel 166 Specimen collection (procedure) (no date) [facility] (missing) (missing) (missing) Result panel 167 Specimen collection (procedure) (no date) [facility] (missing) (missing) (missing) Result panel 168 Specimen collection (procedure) (no date) [facility] (missing) (missing) (missing) Result panel 169 Specimen collection (procedure) (no date) [facility] (missing) (missing) (missing) Result panel 170 Specimen collection (procedure) (no date) [facility] (missing) (missing) (missing) Result panel 171 Specimen collection (procedure) (no date) [facility] (missing) (missing) (missing) Result panel 172 Specimen collection (procedure) (no date) [facility] (missing) (missing) (missing) Result panel 173 Specimen collection (procedure) (no date) [facility] (missing) (missing) (missing) Result panel 174 Specimen collection (procedure) (no date) [facility] (missing) (missing) (missing) Result panel 175 Specimen collection (procedure) (no date) [facility] (missing) (missing) (missing) Result panel 176 Specimen collection (procedure) (no date) [facility] (missing) (missing) (missing) Result panel 177 Specimen collection (procedure) (no date) [facility] (missing) (missing) (missing) Result panel 178 Specimen collection (procedure) (no date) [facility] (missing) (missing) (missing) Result panel 179 Specimen collection (procedure) (no date) [facility] (missing) (missing) (missing) Result panel 180 Specimen collection (procedure) (no date) [facility] (missing) (missing) (missing) Result panel 181 Specimen collection (procedure) (no date) [facility] (missing) (missing) (missing) Result panel 182 Specimen collection (procedure) (no date) [facility] (missing) (missing) (missing) Result panel 183 Specimen collection (procedure) (no date) [facility] (missing) (missing) (missing) Result panel 184 Specimen collection (procedure) (no date) [facility] (missing) (missing) (missing) Result panel 185 Specimen collection (procedure) (no date) [facility] (missing) (missing) (missing) Result panel 186 Specimen collection (procedure) (no date) [facility] (missing) (missing) (missing) Result panel 187 Specimen collection (procedure) (no date) [facility] (missing) (missing) (missing) Result panel 188 Specimen collection (procedure) (no date) [facility] (missing) (missing) (missing) Result panel 189 Specimen collection (procedure) (no date) [facility] (missing) (missing) (missing) Result panel 190 Specimen collection (procedure) (no date) [facility] (missing) (missing) (missing) Result panel 191 Specimen collection (procedure) (no date) [facility] (missing) (missing) (missing) Result panel 192 Specimen collection (procedure) (no date) [facility] (missing) (missing) (missing) Result panel 193 Specimen collection (procedure) (no date) [facility] (missing) (missing) (missing) Result panel 194 Specimen collection (procedure) (no date) [facility] (missing) (missing) (missing) Result panel 195 Specimen collection (procedure) (no date) [facility] (missing) (missing) (missing) Result panel 196 Specimen collection (procedure) (no date) [facility] (missing) (missing) (missing) Result panel 197 Specimen collection (procedure) (no date) [facility] (missing) (missing) (missing) Result panel 198 Specimen collection (procedure) (no date) [facility] (missing) (missing) (missing) Result panel 199 Specimen collection (procedure) (no date) [facility] (missing) (missing) (missing) Result panel 200 Specimen collection (procedure) (no date) [facility] (missing) (missing) (missing) Result panel 201 Specimen collection (procedure) (no date) [facility] (missing) (missing) (missing) Result panel 202 Specimen collection (procedure) (no date) [facility] (missing) (missing) (missing) Result panel 203 Specimen collection (procedure) (no date) [facility] (missing) (missing) (missing) Result panel 204 Specimen collection (procedure) (no date) [facility] (missing) (missing) (missing) Result panel 205 Specimen collection (procedure) (no date) [facility] (missing) (missing) (missing) Result panel 206 Specimen collection (procedure) (no date) [facility] (missing) (missing) (missing) Result panel 207 Specimen collection (procedure) (no date) [facility] (missing) (missing) (missing) Result panel 208 Specimen collection (procedure) (no date) [facility] (missing) (missing) (missing) Result panel 209 Specimen collection (procedure) (no date) [facility] (missing) (missing) (missing) Result panel 210 Specimen collection (procedure) (no date) [facility] (missing) (missing) (missing) Result panel 211 Specimen collection (procedure) (no date) [facility] (missing) (missing) (missing) Result panel 212 Specimen collection (procedure) (no date) [facility] (missing) (missing) (missing) Result panel 213 Specimen collection (procedure) (no date) [facility] (missing) (missing) (missing) Result panel 214 Specimen collection (procedure) (no date) [facility] (missing) (missing) (missing) Result panel 215 Specimen collection (procedure) (no date) [facility] (missing) (missing) (missing) Result panel 216 Specimen collection (procedure) (no date) [facility] (missing) (missing) (missing) Result panel 217 Specimen collection (procedure) (no date) [facility] (missing) (missing) (missing) Result panel 218 Specimen collection (procedure) (no date) [facility] (missing) (missing) (missing) Result panel 219 Specimen collection (procedure) (no date) [facility] (missing) (missing) (missing) Result panel 220 Specimen collection (procedure) (no date) [facility] (missing) (missing) (missing) Result panel 221 Specimen collection (procedure) (no date) [facility] (missing) (missing) (missing) Result panel 222 Specimen collection (procedure) (no date) [facility] (missing) (missing) (missing) Result panel 223 Specimen collection (procedure) (no date) [facility] (missing) (missing) (missing) Result panel 224 Specimen collection (procedure) (no date) [facility] (missing) (missing) (missing) Result panel 225 Specimen collection (procedure) (no date) [facility] (missing) (missing) (missing) Result panel 226 Specimen collection (procedure) (no date) [facility] (missing) (missing) (missing) Result panel 227 Specimen collection (procedure) (no date) [facility] (missing) (missing) (missing) Result panel 228 Specimen collection (procedure) (no date) [facility] (missing) (missing) (missing) Result panel 229 Specimen collection (procedure) (no date) [facility] (missing) (missing) (missing) Result panel 230 Specimen collection (procedure) (no date) [facility] (missing) (missing) (missing) Result panel 231 Specimen collection (procedure) (no date) [facility] (missing) (missing) (missing) Result panel 232 Specimen collection (procedure) (no date) [facility] (missing) (missing) (missing) Result panel 233 Specimen collection (procedure) (no date) [facility] (missing) (missing) (missing) Result panel 234 Specimen collection (procedure) (no date) [facility] (missing) (missing) (missing) Result panel 235 Specimen collection (procedure) (no date) [facility] (missing) (missing) (missing) Result panel 236 Specimen collection (procedure) (no date) [facility] (missing) (missing) (missing) Result panel 237 Specimen collection (procedure) (no date) [facility] (missing) (missing) (missing) Result panel 238 Specimen collection (procedure) (no date) [facility] (missing) (missing) (missing) Result panel 239 Specimen collection (procedure) (no date) [facility] (missing) (missing) (missing) Result panel 240 Specimen collection (procedure) (no date) [facility] (missing) (missing) (missing) Result panel 241 Specimen collection (procedure) (no date) [facility] (missing) (missing) (missing) Result panel 242 Specimen collection (procedure) (no date) [facility] (missing) (missing) (missing) Result panel 243 Specimen collection (procedure) (no date) [facility] (missing) (missing) (missing) Result panel 244 Specimen collection (procedure) (no date) [facility] (missing) (missing) (missing) Result panel 245 Specimen collection (procedure) (no date) [facility] (missing) (missing) (missing) Result panel 246 Specimen collection (procedure) (no date) [facility] (missing) (missing) (missing) Result panel 247 Specimen collection (procedure) (no date) [facility] (missing) (missing) (missing) Result panel 248 Specimen collection (procedure) (no date) [facility] (missing) (missing) (missing) Result panel 249 Specimen collection (procedure) (no date) [facility] (missing) (missing) (missing) Result panel 250 Specimen collection (procedure) (no date) [facility] (missing) (missing) (missing) Result panel 251 Specimen collection (procedure) (no date) [facility] (missing) (missing) (missing) Result panel 252 Specimen collection (procedure) (no date) [facility] (missing) (missing) (missing) Result panel 253 Specimen collection (procedure) (no date) [facility] (missing) (missing) (missing) Result panel 254 Specimen collection (procedure) (no date) [facility] (missing) (missing) (missing) Result panel 255 Specimen collection (procedure) (no date) [facility] (missing) (missing) (missing) Result panel 256 Specimen collection (procedure) (no date) [facility] (missing) (missing) (missing) Result panel 257 Specimen collection (procedure) (no date) [facility] (missing) (missing) (missing) Result panel 258 Specimen collection (procedure) (no date) [facility] (missing) (missing) (missing) Result panel 259 Specimen collection (procedure) (no date) [facility] (missing) (missing) (missing) Result panel 260 Specimen collection (procedure) (no date) [facility] (missing) (missing) (missing) Result panel 261 Specimen collection (procedure) (no date) [facility] (missing) (missing) (missing) Result panel 262 Specimen collection (procedure) (no date) [facility] (missing) (missing) (missing) Result panel 263 Specimen collection (procedure) (no date) [facility] (missing) (missing) (missing) Result panel 264 Specimen collection (procedure) (no date) [facility] (missing) (missing) (missing) Result panel 265 Specimen collection (procedure) (no date) [facility] (missing) (missing) (missing) Result panel 266 Specimen collection (procedure) (no date) [facility] (missing) (missing) (missing) Result panel 267 Specimen collection (procedure) (no date) [facility] (missing) (missing) (missing) Result panel 268 Specimen collection (procedure) (no date) [facility] (missing) (missing) (missing) Result panel 269 Specimen collection (procedure) (no date) [facility] (missing) (missing) (missing) Result panel 270 Specimen collection (procedure) (no date) [facility] (missing) (missing) (missing) Result panel 271 Specimen collection (procedure) (no date) [facility] (missing) (missing) (missing) Result panel 272 Specimen collection (procedure) (no date) [facility] (missing) (missing) (missing) Result panel 273 Specimen collection (procedure) (no date) [facility] (missing) (missing) (missing) Result panel 274 Specimen collection (procedure) (no date) [facility] (missing) (missing) (missing) Result panel 275 Specimen collection (procedure) (no date) [facility] (missing) (missing) (missing) Result panel 276 Specimen collection (procedure) (no date) [facility] (missing) (missing) (missing) Result panel 277 Specimen collection (procedure) (no date) [facility] (missing) (missing) (missing) Result panel 278 Specimen collection (procedure) (no date) [facility] (missing) (missing) (missing) Result panel 279 Specimen collection (procedure) (no date) [facility] (missing) (missing) (missing) Result panel 280 Specimen collection (procedure) (no date) [facility] (missing) (missing) (missing) Result panel 281 Specimen collection (procedure) (no date) [facility] (missing) (missing) (missing) Result panel 282 Specimen collection (procedure) (no date) [facility] (missing) (missing) (missing) Result panel 283 Specimen collection (procedure) (no date) [facility] (missing) (missing) (missing) Result panel 284 Specimen collection (procedure) (no date) [facility] (missing) (missing) (missing) Result panel 285 Specimen collection (procedure) (no date) [facility] (missing) (missing) (missing) Result panel 286 Specimen collection (procedure) (no date) [facility] (missing) (missing) (missing) Result panel 287 Specimen collection (procedure) (no date) [facility] (missing) (missing) (missing) Result panel 288 Specimen collection (procedure) (no date) [facility] (missing) (missing) (missing) Result panel 289 Specimen collection (procedure) (no date) [facility] (missing) (missing) (missing) Result panel 290 Specimen collection (procedure) (no date) [facility] (missing) (missing) (missing) Result panel 291 Specimen collection (procedure) (no date) [facility] (missing) (missing) (missing) Result panel 292 Specimen collection (procedure) (no date) [facility] (missing) (missing) (missing) Result panel 293 Specimen collection (procedure) (no date) [facility] (missing) (missing) (missing) Result panel 294 Specimen collection (procedure) (no date) [facility] (missing) (missing) (missing) Result panel 295 Specimen collection (procedure) (no date) [facility] (missing) (missing) (missing) Result panel 296 Specimen collection (procedure) (no date) [facility] (missing) (missing) (missing) Result panel 297 Specimen collection (procedure) (no date) [facility] (missing) (missing) (missing) Result panel 298 Specimen collection (procedure) (no date) [facility] (missing) (missing) (missing) Result panel 299 Specimen collection (procedure) (no date) [facility] (missing) (missing) (missing) Result panel 300 Specimen collection (procedure) (no date) [facility] (missing) (missing) (missing) Result panel 301 Specimen collection (procedure) (no date) [facility] (missing) (missing) (missing) Result panel 302 Specimen collection (procedure) (no date) [facility] (missing) (missing) (missing) Result panel 303 Specimen collection (procedure) (no date) [facility] (missing) (missing) (missing) Result panel 304 Specimen collection (procedure) (no date) [facility] (missing) (missing) (missing) Result panel 305 Specimen collection (procedure) (no date) [facility] (missing) (missing) (missing) Result panel 306 Specimen collection (procedure) (no date) [facility] (missing) (missing) (missing) Result panel 307 Specimen collection (procedure) (no date) [facility] (missing) (missing) (missing) Result panel 308 Specimen collection (procedure) (no date) [facility] (missing) (missing) (missing) Result panel 309 Specimen collection (procedure) (no date) [facility] (missing) (missing) (missing) Result panel 310 Specimen collection (procedure) (no date) [facility] (missing) (missing) (missing) Result panel 311 Specimen collection (procedure) (no date) [facility] (missing) (missing) (missing) Result panel 312 Specimen collection (procedure) (no date) [facility] (missing) (missing) (missing) Result panel 313 Specimen collection (procedure) (no date) [facility] (missing) (missing) (missing) Result panel 314 Specimen collection (procedure) (no date) [facility] (missing) (missing) (missing) Result panel 315 Specimen collection (procedure) (no date) [facility] (missing) (missing) (missing) Result panel 316 Specimen collection (procedure) (no date) [facility] (missing) (missing) (missing) Result panel 317 Specimen collection (procedure) (no date) [facility] (missing) (missing) (missing) Result panel 318 Specimen collection (procedure) (no date) [facility] (missing) (missing) (missing) Result panel 319 Specimen collection (procedure) (no date) [facility] (missing) (missing) (missing) Result panel 320 Specimen collection (procedure) (no date) [facility] (missing) (missing) (missing) Result panel 321 Specimen collection (procedure) (no date) [facility] (missing) (missing) (missing) Result panel 322 Specimen collection (procedure) (no date) [facility] (missing) (missing) (missing) Result panel 323 Specimen collection (procedure) (no date) [facility] (missing) (missing) (missing) Result panel 324 Specimen collection (procedure) (no date) [facility] (missing) (missing) (missing) Result panel 325 Specimen collection (procedure) (no date) [facility] (missing) (missing) (missing) Result panel 326 Specimen collection (procedure) (no date) [facility] (missing) (missing) (missing) Result panel 327 Specimen collection (procedure) (no date) [facility] (missing) (missing) (missing) Result panel 328 Specimen collection (procedure) (no date) [facility] (missing) (missing) (missing) Result panel 329 Specimen collection (procedure) (no date) [facility] (missing) (missing) (missing) Result panel 330 Specimen collection (procedure) (no date) [facility] (missing) (missing) (missing) Result panel 331 Specimen collection (procedure) (no date) [facility] (missing) (missing) (missing) Result panel 332 Specimen collection (procedure) (no date) [facility] (missing) (missing) (missing) Result panel 333 Specimen collection (procedure) (no date) [facility] (missing) (missing) (missing) Result panel 334 Specimen collection (procedure) (no date) [facility] (missing) (missing) (missing) Result panel 335 Specimen collection (procedure) (no date) [facility] (missing) (missing) (missing) Result panel 336 Specimen collection (procedure) (no date) [facility] (missing) (missing) (missing) Result panel 337 Specimen collection (procedure) (no date) [facility] (missing) (missing) (missing) Result panel 338 Specimen collection (procedure) (no date) [facility] (missing) (missing) (missing) Result panel 339 Specimen collection (procedure) (no date) [facility] (missing) (missing) (missing) Result panel 340 Specimen collection (procedure) (no date) [facility] (missing) (missing) (missing) Result panel 341 Specimen collection (procedure) (no date) [facility] (missing) (missing) (missing) Result panel 342 Specimen collection (procedure) (no date) [facility] (missing) (missing) (missing) Result panel 343 Specimen collection (procedure) (no date) [facility] (missing) (missing) (missing) Result panel 344 Specimen collection (procedure) (no date) [facility] (missing) (missing) (missing) Result panel 345 Specimen collection (procedure) (no date) [facility] (missing) (missing) (missing) Result panel 346 Specimen collection (procedure) (no date) [facility] (missing) (missing) (missing) Result panel 347 Specimen collection (procedure) (no date) [facility] (missing) (missing) (missing) Result panel 348 Specimen collection (procedure) (no date) [facility] (missing) (missing) (missing) Result panel 349 Specimen collection (procedure) (no date) [facility] (missing) (missing) (missing) Result panel 350 Specimen collection (procedure) (no date) [facility] (missing) (missing) (missing) Result panel 351 Specimen collection (procedure) (no date) [facility] (missing) (missing) (missing) Result panel 352 Specimen collection (procedure) (no date) [facility] (missing) (missing) (missing) Result panel 353 Specimen collection (procedure) (no date) [facility] (missing) (missing) (missing) Result panel 354 Specimen collection (procedure) (no date) [facility] (missing) (missing) (missing) Result panel 355 Specimen collection (procedure) (no date) [facility] (missing) (missing) (missing) Result panel 356 Specimen collection (procedure) (no date) [facility] (missing) (missing) (missing) Result panel 357 Specimen collection (procedure) (no date) [facility] (missing) (missing) (missing) Result panel 358 Specimen collection (procedure) (no date) [facility] (missing) (missing) (missing) Result panel 359 Specimen collection (procedure) (no date) [facility] (missing) (missing) (missing) Result panel 360 Specimen collection (procedure) (no date) [facility] (missing) (missing) (missing) Result panel 361 Specimen collection (procedure) (no date) [facility] (missing) (missing) (missing) Result panel 362 Specimen collection (procedure) (no date) [facility] (missing) (missing) (missing) Result panel 363 Specimen collection (procedure) (no date) [facility] (missing) (missing) (missing) Result panel 364 Specimen collection (procedure) (no date) [facility] (missing) (missing) (missing) Result panel 365 Specimen collection (procedure) (no date) [facility] (missing) (missing) (missing) Result panel 366 Specimen collection (procedure) (no date) [facility] (missing) (missing) (missing) Result panel 367 Specimen collection (procedure) (no date) [facility] (missing) (missing) (missing) Result panel 368 Specimen collection (procedure) (no date) [facility] (missing) (missing) (missing) Result panel 369 Specimen collection (procedure) (no date) [facility] (missing) (missing) (missing) Result panel 370 Specimen collection (procedure) (no date) [facility] (missing) (missing) (missing) Result panel 371 Specimen collection (procedure) (no date) [facility] (missing) (missing) (missing) Result panel 372 Specimen collection (procedure) (no date) [facility] (missing) (missing) (missing) Result panel 373 Specimen collection (procedure) (no date) [facility] (missing) (missing) (missing) Result panel 374 Specimen collection (procedure) (no date) [facility] (missing) (missing) (missing) Result panel 375 Specimen collection (procedure) (no date) [facility] (missing) (missing) (missing) Result panel 376 Specimen collection (procedure) (no date) [facility] (missing) (missing) (missing) Result panel 377 Specimen collection (procedure) (no date) [facility] (missing) (missing) (missing) Result panel 378 Specimen collection (procedure) (no date) [facility] (missing) (missing) (missing) Result panel 379 Specimen collection (procedure) (no date) [facility] (missing) (missing) (missing) Result panel 380 Specimen collection (procedure) (no date) [facility] (missing) (missing) (missing) Result panel 381 Specimen collection (procedure) (no date) [facility] (missing) (missing) (missing) Result panel 382 Specimen collection (procedure) (no date) [facility] (missing) (missing) (missing) Result panel 383 Specimen collection (procedure) (no date) [facility] (missing) (missing) (missing) Result panel 384 Specimen collection (procedure) (no date) [facility] (missing) (missing) (missing) Result panel 385 Specimen collection (procedure) (no date) [facility] (missing) (missing) (missing) Result panel 386 Specimen collection (procedure) (no date) [facility] (missing) (missing) (missing) Result panel 387 Specimen collection (procedure) (no date) [facility] (missing) (missing) (missing) Result panel 388 Specimen collection (procedure) (no date) [facility] (missing) (missing) (missing) Result panel 389 Specimen collection (procedure) (no date) [facility] (missing) (missing) (missing) Result panel 390 Specimen collection (procedure) (no date) [facility] (missing) (missing) (missing) Result panel 391 Specimen collection (procedure) (no date) [facility] (missing) (missing) (missing) Result panel 392 Specimen collection (procedure) (no date) [facility] (missing) (missing) (missing) Result panel 393 Specimen collection (procedure) (no date) [facility] (missing) (missing) (missing) Result panel 394 Specimen collection (procedure) (no date) [facility] (missing) (missing) (missing) Result panel 395 Specimen collection (procedure) (no date) [facility] (missing) (missing) (missing) Result panel 396 Specimen collection (procedure) (no date) [facility] (missing) (missing) (missing) Result panel 397 Specimen collection (procedure) (no date) [facility] (missing) (missing) (missing) Result panel 398 Specimen collection (procedure) (no date) [facility] (missing) (missing) (missing) Result panel 399 Specimen collection (procedure) (no date) [facility] (missing) (missing) (missing) Result panel 400 Specimen collection (procedure) (no date) [facility] (missing) (missing) (missing) Result panel 401 Specimen collection (procedure) (no date) [facility] (missing) (missing) (missing) Result panel 402 Specimen collection (procedure) (no date) [facility] (missing) (missing) (missing) Result panel 403 Specimen collection (procedure) (no date) [facility] (missing) (missing) (missing) Result panel 404 Specimen collection (procedure) (no date) [facility] (missing) (missing) (missing) Result panel 405 Specimen collection (procedure) (no date) [facility] (missing) (missing) (missing) Result panel 406 Specimen collection (procedure) (no date) [facility] (missing) (missing) (missing) Result panel 407 Specimen collection (procedure) (no date) [facility] (missing) (missing) (missing) Result panel 408 Specimen collection (procedure) (no date) [facility] (missing) (missing) (missing) Result panel 409 Specimen collection (procedure) (no date) [facility] (missing) (missing) (missing) Result panel 410 Specimen collection (procedure) (no date) [facility] (missing) (missing) (missing) Result panel 411 Specimen collection (procedure) (no date) [facility] (missing) (missing) (missing) Result panel 412 Specimen collection (procedure) (no date) [facility] (missing) (missing) (missing) Result panel 413 Specimen collection (procedure) (no date) [facility] (missing) (missing) (missing) Result panel 414 Specimen collection (procedure) (no date) [facility] (missing) (missing) (missing) Result panel 415 Specimen collection (procedure) (no date) [facility] (missing) (missing) (missing) Result panel 416 Specimen collection (procedure) (no date) [facility] (missing) (missing) (missing) Result panel 417 Specimen collection (procedure) (no date) [facility] (missing) (missing) (missing) Result panel 418 Specimen collection (procedure) (no date) [facility] (missing) (missing) (missing) Result panel 419 Specimen collection (procedure) (no date) [facility] (missing) (missing) (missing) Result panel 420 Specimen collection (procedure) (no date) [facility] (missing) (missing) (missing) Result panel 421 Specimen collection (procedure) (no date) [facility] (missing) (missing) (missing) Result panel 422 Specimen collection (procedure) (no date) [facility] (missing) (missing) (missing) Result panel 423 Specimen collection (procedure) (no date) [facility] (missing) (missing) (missing) Result panel 424 Specimen collection (procedure) (no date) [facility] (missing) (missing) (missing) Result panel 425 Specimen collection (procedure) (no date) [facility] (missing) (missing) (missing) Result panel 426 Specimen collection (procedure) (no date) [facility] (missing) (missing) (missing) Result panel 427 Specimen collection (procedure) (no date) [facility] (missing) (missing) (missing) Result panel 428 Specimen collection (procedure) (no date) [facility] (missing) (missing) (missing) Result panel 429 Specimen collection (procedure) (no date) [facility] (missing) (missing) (missing) Result panel 430 Specimen collection (procedure) (no date) [facility] (missing) (missing) (missing) Result panel 431 Specimen collection (procedure) (no date) [facility] (missing) (missing) (missing) Result panel 432 Specimen collection (procedure) (no date) [facility] (missing) (missing) (missing) Result panel 433 Specimen collection (procedure) (no date) [facility] (missing) (missing) (missing) Result panel 434 Specimen collection (procedure) (no date) [facility] (missing) (missing) (missing) Result panel 435 Specimen collection (procedure) (no date) [facility] (missing) (missing) (missing) Result panel 436 Specimen collection (procedure) (no date) [facility] (missing) (missing) (missing) Result panel 437 Specimen collection (procedure) (no date) [facility] (missing) (missing) (missing) Result panel 438 Specimen collection (procedure) (no date) [facility] (missing) (missing) (missing) Result panel 439 Specimen collection (procedure) (no date) [facility] (missing) (missing) (missing) Result panel 440 Specimen collection (procedure) (no date) [facility] (missing) (missing) (missing) Result panel 441 Specimen collection (procedure) (no date) [facility] (missing) (missing) (missing) Result panel 442 Specimen collection (procedure) (no date) [facility] (missing) (missing) (missing) Result panel 443 Specimen collection (procedure) (no date) [facility] (missing) (missing) (missing) Result panel 444 Specimen collection (procedure) (no date) [facility] (missing) (missing) (missing) Result panel 445 Specimen collection (procedure) (no date) [facility] (missing) (missing) (missing) Result panel 446 Specimen collection (procedure) (no date) [facility] (missing) (missing) (missing) Result panel 447 Specimen collection (procedure) (no date) [facility] (missing) (missing) (missing) Result panel 448 Specimen collection (procedure) (no date) [facility] (missing) (missing) (missing) Result panel 449 Specimen collection (procedure) (no date) [facility] (missing) (missing) (missing) Result panel 450 Specimen collection (procedure) (no date) [facility] (missing) (missing) (missing) Result panel 451 Specimen collection (procedure) (no date) [facility] (missing) (missing) (missing) Result panel 452 Specimen collection (procedure) (no date) [facility] (missing) (missing) (missing) Result panel 453 Specimen collection (procedure) (no date) [facility] (missing) (missing) (missing) Result panel 454 Specimen collection (procedure) (no date) [facility] (missing) (missing) (missing) Result panel 455 Specimen collection (procedure) (no date) [facility] (missing) (missing) (missing) Result panel 456 Specimen collection (procedure) (no date) [facility] (missing) (missing) (missing) Result panel 457 Specimen collection (procedure) (no date) [facility] (missing) (missing) (missing) Result panel 458 Specimen collection (procedure) (no date) [facility] (missing) (missing) (missing) Result panel 459 Specimen collection (procedure) (no date) [facility] (missing) (missing) (missing) Result panel 460 Specimen collection (procedure) (no date) [facility] (missing) (missing) (missing) Result panel 461 Specimen collection (procedure) (no date) [facility] (missing) (missing) (missing) Result panel 462 Specimen collection (procedure) (no date) [facility] (missing) (missing) (missing) Result panel 463 Specimen collection (procedure) (no date) [facility] (missing) (missing) (missing) Result panel 464 Specimen collection (procedure) (no date) [facility] (missing) (missing) (missing) Result panel 465 Specimen collection (procedure) (no date) [facility] (missing) (missing) (missing) Result panel 466 Specimen collection (procedure) (no date) [facility] (missing) (missing) (missing) Result panel 467 Specimen collection (procedure) (no date) [facility] (missing) (missing) (missing) Result panel 468 Specimen collection (procedure) (no date) [facility] (missing) (missing) (missing) Result panel 469 Specimen collection (procedure) (no date) [facility] (missing) (missing) (missing) Result panel 470 Specimen collection (procedure) (no date) [facility] (missing) (missing) (missing) Result panel 471 Specimen collection (procedure) (no date) [facility] (missing) (missing) (missing) Result panel 472 Specimen collection (procedure) (no date) [facility] (missing) (missing) (missing) Result panel 473 Specimen collection (procedure) (no date) [facility] (missing) (missing) (missing) Result panel 474 Specimen collection (procedure) (no date) [facility] (missing) (missing) (missing) Result panel 475 Specimen collection (procedure) (no date) [facility] (missing) (missing) (missing) Result panel 476 Specimen collection (procedure) (no date) [facility] (missing) (missing) (missing) Result panel 477 Specimen collection (procedure) (no date) [facility] (missing) (missing) (missing) Result panel 478 Specimen collection (procedure) (no date) [facility] (missing) (missing) (missing) Result panel 479 Specimen collection (procedure) (no date) [facility] (missing) (missing) (missing) Result panel 480 Specimen collection (procedure) (no date) [facility] (missing) (missing) (missing) Result panel 481 Specimen collection (procedure) (no date) [facility] (missing) (missing) (missing) Result panel 482 Specimen collection (procedure) (no date) [facility] (missing) (missing) (missing) Result panel 483 Specimen collection (procedure) (no date) [facility] (missing) (missing) (missing) Result panel 484 Specimen collection (procedure) (no date) [facility] (missing) (missing) (missing) Result panel 485 Specimen collection (procedure) (no date) [facility] (missing) (missing) (missing) Result panel 486 Specimen collection (procedure) (no date) [facility] (missing) (missing) (missing) Result panel 487 Specimen collection (procedure) (no date) [facility] (missing) (missing) (missing) Result panel 488 Specimen collection (procedure) (no date) [facility] (missing) (missing) (missing) Result panel 489 Specimen collection (procedure) (no date) [facility] (missing) (missing) (missing) Result panel 490 Specimen collection (procedure) (no date) [facility] (missing) (missing) (missing) Result panel 491 Specimen collection (procedure) (no date) [facility] (missing) (missing) (missing) Result panel 492 Specimen collection (procedure) (no date) [facility] (missing) (missing) (missing) Result panel 493 Specimen collection (procedure) (no date) [facility] (missing) (missing) (missing) Result panel 494 Specimen collection (procedure) (no date) [facility] (missing) (missing) (missing) Result panel 495 Specimen collection (procedure) (no date) [facility] (missing) (missing) (missing) Result panel 496 Specimen collection (procedure) (no date) [facility] (missing) (missing) (missing) Result panel 497 Specimen collection (procedure) (no date) [facility] (missing) (missing) (missing) Result panel 498 Specimen collection (procedure) (no date) [facility] (missing) (missing) (missing) Result panel 499 Specimen collection (procedure) (no date) [facility] (missing) (missing) (missing) Result panel 500 Specimen collection (procedure) (no date) [facility] (missing) (missing) (missing) Result panel 501 Specimen collection (procedure) (no date) [facility] (missing) (missing) (missing) Result panel 502 Specimen collection (procedure) (no date) [facility] (missing) (missing) (missing) Result panel 503 Specimen collection (procedure) (no date) [facility] (missing) (missing) (missing) Result panel 504 Specimen collection (procedure) (no date) [facility] (missing) (missing) (missing) Result panel 505 Specimen collection (procedure) (no date) [facility] (missing) (missing) (missing) Result panel 506 Specimen collection (procedure) (no date) [facility] (missing) (missing) (missing) Result panel 507 Specimen collection (procedure) (no date) [facility] (missing) (missing) (missing) Result panel 508 Specimen collection (procedure) (no date) [facility] (missing) (missing) (missing) Result panel 509 Specimen collection (procedure) (no date) [facility] (missing) (missing) (missing) Result panel 510 Specimen collection (procedure) (no date) [facility] (missing) (missing) (missing) Result panel 511 Specimen collection (procedure) (no date) [facility] (missing) (missing) (missing) Result panel 512 Specimen collection (procedure) (no date) [facility] (missing) (missing) (missing) Result panel 513 Specimen collection (procedure) (no date) [facility] (missing) (missing) (missing) Result panel 514 Specimen collection (procedure) (no date) [facility] (missing) (missing) (missing) Result panel 515 Specimen collection (procedure) (no date) [facility] (missing) (missing) (missing) Result panel 516 Specimen collection (procedure) (no date) [facility] (missing) (missing) (missing) Result panel 517 Specimen collection (procedure) (no date) [facility] (missing) (missing) (missing) Result panel 518 Specimen collection (procedure) (no date) [facility] (missing) (missing) (missing) Result panel 519 Specimen collection (procedure) (no date) [facility] (missing) (missing) (missing) Result panel 520 Specimen collection (procedure) (no date) [facility] (missing) (missing) (missing) Result panel 521 Specimen collection (procedure) (no date) [facility] (missing) (missing) (missing) Result panel 522 Specimen collection (procedure) (no date) [facility] (missing) (missing) (missing) Result panel 523 Specimen collection (procedure) (no date) [facility] (missing) (missing) (missing) Result panel 524 Specimen collection (procedure) (no date) [facility] (missing) (missing) (missing) Result panel 525 Specimen collection (procedure) (no date) [facility] (missing) (missing) (missing) Result panel 526 Specimen collection (procedure) (no date) [facility] (missing) (missing) (missing) Result panel 527 Specimen collection (procedure) (no date) [facility] (missing) (missing) (missing) Result panel 528 Specimen collection (procedure) (no date) [facility] (missing) (missing) (missing) Result panel 529 Specimen collection (procedure) (no date) [facility] (missing) (missing) (missing) Result panel 530 Specimen collection (procedure) (no date) [facility] (missing) (missing) (missing) Result panel 531 Specimen collection (procedure) (no date) [facility] (missing) (missing) (missing) Result panel 532 Specimen collection (procedure) (no date) [facility] (missing) (missing) (missing) Result panel 533 Specimen collection (procedure) (no date) [facility] (missing) (missing) (missing) Result panel 534 Specimen collection (procedure) (no date) [facility] (missing) (missing) (missing) Result panel 535 Specimen collection (procedure) (no date) [facility] (missing) (missing) (missing) Result panel 536 Specimen collection (procedure) (no date) [facility] (missing) (missing) (missing) Result panel 537 Specimen collection (procedure) (no date) [facility] (missing) (missing) (missing) Result panel 538 Specimen collection (procedure) (no date) [facility] (missing) (missing) (missing) Result panel 539 Specimen collection (procedure) (no date) [facility] (missing) (missing) (missing) Result panel 540 Specimen collection (procedure) (no date) [facility] (missing) (missing) (missing) Result panel 541 Specimen collection (procedure) (no date) [facility] (missing) (missing) (missing) Result panel 542 Specimen collection (procedure) (no date) [facility] (missing) (missing) (missing) Result panel 543 Specimen collection (procedure) (no date) [facility] (missing) (missing) (missing) Result panel 544 Specimen collection (procedure) (no date) [facility] (missing) (missing) (missing) Result panel 545 Specimen collection (procedure) (no date) [facility] (missing) (missing) (missing) Result panel 546 Specimen collection (procedure) (no date) [facility] (missing) (missing) (missing) Result panel 547 Specimen collection (procedure) (no date) [facility] (missing) (missing) (missing) Result panel 548 Specimen collection (procedure) (no date) [facility] (missing) (missing) (missing) Result panel 549 Specimen collection (procedure) (no date) [facility] (missing) (missing) (missing) Result panel 550 Specimen collection (procedure) (no date) [facility] (missing) (missing) (missing) Result panel 551 Specimen collection (procedure) (no date) [facility] (missing) (missing) (missing) Result panel 552 Specimen collection (procedure) (no date) [facility] (missing) (missing) (missing) Result panel 553 Specimen collection (procedure) (no date) [facility] (missing) (missing) (missing) Result panel 554 Specimen collection (procedure) (no date) [facility] (missing) (missing) (missing) Result panel 555 Specimen collection (procedure) (no date) [facility] (missing) (missing) (missing) Result panel 556 Specimen collection (procedure) (no date) [facility] (missing) (missing) (missing) Result panel 557 Specimen collection (procedure) (no date) [facility] (missing) (missing) (missing) Result panel 558 Specimen collection (procedure) (no date) [facility] (missing) (missing) (missing) Result panel 559 Specimen collection (procedure) (no date) [facility] (missing) (missing) (missing) Result panel 560 Specimen collection (procedure) (no date) [facility] (missing) (missing) (missing) Result panel 561 Specimen collection (procedure) (no date) [facility] (missing) (missing) (missing) Result panel 562 Specimen collection (procedure) (no date) [facility] (missing) (missing) (missing) Result panel 563 Specimen collection (procedure) (no date) [facility] (missing) (missing) (missing) Result panel 564 Specimen collection (procedure) (no date) [facility] (missing) (missing) (missing) Result panel 565 Specimen collection (procedure) (no date) [facility] (missing) (missing) (missing) Result panel 566 Specimen collection (procedure) (no date) [facility] (missing) (missing) (missing) Result panel 567 Specimen collection (procedure) (no date) [facility] (missing) (missing) (missing) Result panel 568 Specimen collection (procedure) (no date) [facility] (missing) (missing) (missing) Result panel 569 Specimen collection (procedure) (no date) [facility] (missing) (missing) (missing) Result panel 570 Specimen collection (procedure) (no date) [facility] (missing) (missing) (missing) Result panel 571 Specimen collection (procedure) (no date) [facility] (missing) (missing) (missing) Result panel 572 Specimen collection (procedure) (no date) [facility] (missing) (missing) (missing) Result panel 573 Specimen collection (procedure) (no date) [facility] (missing) (missing) (missing) Result panel 574 Specimen collection (procedure) (no date) [facility] (missing) (missing) (missing) Result panel 575 Specimen collection (procedure) (no date) [facility] (missing) (missing) (missing) Result panel 576 Specimen collection (procedure) (no date) [facility] (missing) (missing) (missing) Result panel 577 Specimen collection (procedure) (no date) [facility] (missing) (missing) (missing) Result panel 578 Specimen collection (procedure) (no date) [facility] (missing) (missing) (missing) Result panel 579 Specimen collection (procedure) (no date) [facility] (missing) (missing) (missing) Result panel 580 Specimen collection (procedure) (no date) [facility] (missing) (missing) (missing) Result panel 581 Specimen collection (procedure) (no date) [facility] (missing) (missing) (missing) Result panel 582 Specimen collection (procedure) (no date) [facility] (missing) (missing) (missing) Result panel 583 Specimen collection (procedure) (no date) [facility] (missing) (missing) (missing) Result panel 584 Specimen collection (procedure) (no date) [facility] (missing) (missing) (missing) Result panel 585 Specimen collection (procedure) (no date) [facility] (missing) (missing) (missing) Result panel 586 Specimen collection (procedure) (no date) [facility] (missing) (missing) (missing) Result panel 587 Specimen collection (procedure) (no date) [facility] (missing) (missing) (missing) Result panel 588 Specimen collection (procedure) (no date) [facility] (missing) (missing) (missing) Result panel 589 Specimen collection (procedure) (no date) [facility] (missing) (missing) (missing) Result panel 590 Specimen collection (procedure) (no date) [facility] (missing) (missing) (missing) Result panel 591 Specimen collection (procedure) (no date) [facility] (missing) (missing) (missing) Result panel 592 Specimen collection (procedure) (no date) [facility] (missing) (missing) (missing) Result panel 593 Specimen collection (procedure) (no date) [facility] (missing) (missing) (missing) Result panel 594 Specimen collection (procedure) (no date) [facility] (missing) (missing) (missing) Result panel 595 Specimen collection (procedure) (no date) [facility] (missing) (missing) (missing) Result panel 596 Specimen collection (procedure) (no date) [facility] (missing) (missing) (missing) Result panel 597 Specimen collection (procedure) (no date) [facility] (missing) (missing) (missing) Result panel 598 Specimen collection (procedure) (no date) [facility] (missing) (missing) (missing) Result panel 599 Specimen collection (procedure) (no date) [facility] (missing) (missing) (missing) Result panel 600 Specimen collection (procedure) (no date) [facility] (missing) (missing) (missing) Result panel 601 Specimen collection (procedure) (no date) [facility] (missing) (missing) (missing) Result panel 602 Specimen collection (procedure) (no date) [facility] (missing) (missing) (missing) Result panel 603 Specimen collection (procedure) (no date) [facility] (missing) (missing) (missing) Result panel 604 Specimen collection (procedure) (no date) [facility] (missing) (missing) (missing) Result panel 605 Specimen collection (procedure) (no date) [facility] (missing) (missing) (missing) Result panel 606 Specimen collection (procedure) (no date) [facility] (missing) (missing) (missing) Result panel 607 Specimen collection (procedure) (no date) [facility] (missing) (missing) (missing) Result panel 608 Specimen collection (procedure) (no date) [facility] (missing) (missing) (missing) Result panel 609 Specimen collection (procedure) (no date) [facility] (missing) (missing) (missing) Result panel 610 Specimen collection (procedure) (no date) [facility] (missing) (missing) (missing) Result panel 611 Specimen collection (procedure) (no date) [facility] (missing) (missing) (missing) Result panel 612 Specimen collection (procedure) (no date) [facility] (missing) (missing) (missing) Result panel 613 Specimen collection (procedure) (no date) [facility] (missing) (missing) (missing) Result panel 614 Specimen collection (procedure) (no date) [facility] (missing) (missing) (missing) Result panel 615 Specimen collection (procedure) (no date) [facility] (missing) (missing) (missing) Result panel 616 Specimen collection (procedure) (no date) [facility] (missing) (missing) (missing) Result panel 617 Specimen collection (procedure) (no date) [facility] (missing) (missing) (missing) Result panel 618 Specimen collection (procedure) (no date) [facility] (missing) (missing) (missing) Result panel 619 Specimen collection (procedure) (no date) [facility] (missing) (missing) (missing) Result panel 620 Specimen collection (procedure) (no date) [facility] (missing) (missing) (missing) Result panel 621 Specimen collection (procedure) (no date) [facility] (missing) (missing) (missing) Result panel 622 Specimen collection (procedure) (no date) [facility] (missing) (missing) (missing) Result panel 623 Specimen collection (procedure) (no date) [facility] (missing) (missing) (missing) Result panel 624 Specimen collection (procedure) (no date) [facility] (missing) (missing) (missing) Result panel 625 Specimen collection (procedure) (no date) [facility] (missing) (missing) (missing) Result panel 626 Specimen collection (procedure) (no date) [facility] (missing) (missing) (missing) Result panel 627 Specimen collection (procedure) (no date) [facility] (missing) (missing) (missing) Result panel 628 Specimen collection (procedure) (no date) [facility] (missing) (missing) (missing) Result panel 629 Specimen collection (procedure) (no date) [facility] (missing) (missing) (missing) Result panel 630 Specimen collection (procedure) (no date) [facility] (missing) (missing) (missing) Result panel 631 Specimen collection (procedure) (no date) [facility] (missing) (missing) (missing) Result panel 632 Specimen collection (procedure) (no date) [facility] (missing) (missing) (missing) Result panel 633 Specimen collection (procedure) (no date) [facility] (missing) (missing) (missing) Result panel 634 Specimen collection (procedure) (no date) [facility] (missing) (missing) (missing) Result panel 635 Specimen collection (procedure) (no date) [facility] (missing) (missing) (missing) Result panel 636 Specimen collection (procedure) (no date) [facility] (missing) (missing) (missing) Result panel 637 Specimen collection (procedure) (no date) [facility] (missing) (missing) (missing) Result panel 638 Specimen collection (procedure) (no date) [facility] (missing) (missing) (missing) Result panel 639 Specimen collection (procedure) (no date) [facility] (missing) (missing) (missing) Result panel 640 Specimen collection (procedure) (no date) [facility] (missing) (missing) (missing) Result panel 641 Specimen collection (procedure) (no date) [facility] (missing) (missing) (missing) Result panel 642 Specimen collection (procedure) (no date) [facility] (missing) (missing) (missing) Result panel 643 Specimen collection (procedure) (no date) [facility] (missing) (missing) (missing) Result panel 644 Specimen collection (procedure) (no date) [facility] (missing) (missing) (missing) Result panel 645 Specimen collection (procedure) (no date) [facility] (missing) (missing) (missing) Result panel 646 Specimen collection (procedure) (no date) [facility] (missing) (missing) (missing) Result panel 647 Specimen collection (procedure) (no date) [facility] (missing) (missing) (missing) Result panel 648 Specimen collection (procedure) (no date) [facility] (missing) (missing) (missing) Result panel 649 Specimen collection (procedure) (no date) [facility] (missing) (missing) (missing) Result panel 650 Specimen collection (procedure) (no date) [facility] (missing) (missing) (missing) Result panel 651 Specimen collection (procedure) (no date) [facility] (missing) (missing) (missing) Result panel 652 Specimen collection (procedure) (no date) [facility] (missing) (missing) (missing) Result panel 653 Specimen collection (procedure) (no date) [facility] (missing) (missing) (missing) Result panel 654 Specimen collection (procedure) (no date) [facility] (missing) (missing) (missing) Result panel 655 Specimen collection (procedure) (no date) [facility] (missing) (missing) (missing) Result panel 656 Specimen collection (procedure) (no date) [facility] (missing) (missing) (missing) Result panel 657 Specimen collection (procedure) (no date) [facility] (missing) (missing) (missing) Result panel 658 Specimen collection (procedure) (no date) [facility] (missing) (missing) (missing) Result panel 659 Specimen collection (procedure) (no date) [facility] (missing) (missing) (missing) Result panel 660 Specimen collection (procedure) (no date) [facility] (missing) (missing) (missing) Result panel 661 Specimen collection (procedure) (no date) [facility] (missing) (missing) (missing) Result panel 662 Specimen collection (procedure) (no date) [facility] (missing) (missing) (missing) Result panel 663 Specimen collection (procedure) (no date) [facility] (missing) (missing) (missing) Result panel 664 Specimen collection (procedure) (no date) [facility] (missing) (missing) (missing) Result panel 665 Specimen collection (procedure) (no date) [facility] (missing) (missing) (missing) Result panel 666 Specimen collection (procedure) (no date) [facility] (missing) (missing) (missing) Result panel 667 Specimen collection (procedure) (no date) [facility] (missing) (missing) (missing) Result panel 668 Specimen collection (procedure) (no date) [facility] (missing) (missing) (missing) Result panel 669 Specimen collection (procedure) (no date) [facility] (missing) (missing) (missing) Result panel 670 Specimen collection (procedure) (no date) [facility] (missing) (missing) (missing) Result panel 671 Specimen collection (procedure) (no date) [facility] (missing) (missing) (missing) Result panel 672 Specimen collection (procedure) (no date) [facility] (missing) (missing) (missing) Result panel 673 Specimen collection (procedure) (no date) [facility] (missing) (missing) (missing) Result panel 674 Specimen collection (procedure) (no date) [facility] (missing) (missing) (missing) Result panel 675 Specimen collection (procedure) (no date) [facility] (missing) (missing) (missing) Result panel 676 Specimen collection (procedure) (no date) [facility] (missing) (missing) (missing) Result panel 677 Specimen collection (procedure) (no date) [facility] (missing) (missing) (missing) Result panel 678 Specimen collection (procedure) (no date) [facility] (missing) (missing) (missing) Result panel 679 Specimen collection (procedure) (no date) [facility] (missing) (missing) (missing) Result panel 680 Specimen collection (procedure) (no date) [facility] (missing) (missing) (missing) Result panel 681 Specimen collection (procedure) (no date) [facility] (missing) (missing) (missing) Result panel 682 Specimen collection (procedure) (no date) [facility] (missing) (missing) (missing) Result panel 683 Specimen collection (procedure) (no date) [facility] (missing) (missing) (missing) Result panel 684 Specimen collection (procedure) (no date) [facility] (missing) (missing) (missing) Result panel 685 Specimen collection (procedure) (no date) [facility] (missing) (missing) (missing) Result panel 686 Specimen collection (procedure) (no date) [facility] (missing) (missing) (missing) Result panel 687 Specimen collection (procedure) (no date) [facility] (missing) (missing) (missing) Result panel 688 Specimen collection (procedure) (no date) [facility] (missing) (missing) (missing) Result panel 689 Specimen collection (procedure) (no date) [facility] (missing) (missing) (missing) Result panel 690 Specimen collection (procedure) (no date) [facility] (missing) (missing) (missing) Result panel 691 Specimen collection (procedure) (no date) [facility] (missing) (missing) (missing) Result panel 692 Specimen collection (procedure) (no date) [facility] (missing) (missing) (missing) Result panel 693 Specimen collection (procedure) (no date) [facility] (missing) (missing) (missing) Result panel 694 Specimen collection (procedure) (no date) [facility] (missing) (missing) (missing) Result panel 695 Specimen collection (procedure) (no date) [facility] (missing) (missing) (missing) Result panel 696 Specimen collection (procedure) (no date) [facility] (missing) (missing) (missing) Result panel 697 Specimen collection (procedure) (no date) [facility] (missing) (missing) (missing) Result panel 698 Specimen collection (procedure) (no date) [facility] (missing) (missing) (missing) Result panel 699 Specimen collection (procedure) (no date) [facility] (missing) (missing) (missing) Result panel 700 Specimen collection (procedure) (no date) [facility] (missing) (missing) (missing) Result panel 701 Specimen collection (procedure) (no date) [facility] (missing) (missing) (missing) Result panel 702 Specimen collection (procedure) (no date) [facility] (missing) (missing) (missing) Result panel 703 Specimen collection (procedure) (no date) [facility] (missing) (missing) (missing) Result panel 704 Specimen collection (procedure) (no date) [facility] (missing) (missing) (missing) Result panel 705 Specimen collection (procedure) (no date) [facility] (missing) (missing) (missing) Result panel 706 Specimen collection (procedure) (no date) [facility] (missing) (missing) (missing) Result panel 707 Specimen collection (procedure) (no date) [facility] (missing) (missing) (missing) Result panel 708 Specimen collection (procedure) (no date) [facility] (missing) (missing) (missing) Result panel 709 Specimen collection (procedure) (no date) [facility] (missing) (missing) (missing) Result panel 710 Specimen collection (procedure) (no date) [facility] (missing) (missing) (missing) Result panel 711 Specimen collection (procedure) (no date) [facility] (missing) (missing) (missing) Result panel 712 Specimen collection (procedure) (no date) [facility] (missing) (missing) (missing) Result panel 713 Specimen collection (procedure) (no date) [facility] (missing) (missing) (missing) Result panel 714 Specimen collection (procedure) (no date) [facility] (missing) (missing) (missing) Result panel 715 Specimen collection (procedure) (no date) [facility] (missing) (missing) (missing) Result panel 716 Specimen collection (procedure) (no date) [facility] (missing) (missing) (missing) Result panel 717 Specimen collection (procedure) (no date) [facility] (missing) (missing) (missing) Result panel 718 Specimen collection (procedure) (no date) [facility] (missing) (missing) (missing) Result panel 719 Specimen collection (procedure) (no date) [facility] (missing) (missing) (missing) Result panel 720 Specimen collection (procedure) (no date) [facility] (missing) (missing) (missing) Result panel 721 Specimen collection (procedure) (no date) [facility] (missing) (missing) (missing) Result panel 722 Specimen collection (procedure) (no date) [facility] (missing) (missing) (missing) Result panel 723 Specimen collection (procedure) (no date) [facility] (missing) (missing) (missing) Result panel 724 Specimen collection (procedure) (no date) [facility] (missing) (missing) (missing) Result panel 725 Specimen collection (procedure) (no date) [facility] (missing) (missing) (missing) Result panel 726 Specimen collection (procedure) (no date) [facility] (missing) (missing) (missing) Result panel 727 Specimen collection (procedure) (no date) [facility] (missing) (missing) (missing) Result panel 728 Specimen collection (procedure) (no date) [facility] (missing) (missing) (missing) Result panel 729 Specimen collection (procedure) (no date) [facility] (missing) (missing) (missing) Result panel 730 Specimen collection (procedure) (no date) [facility] (missing) (missing) (missing) Result panel 731 Specimen collection (procedure) (no date) [facility] (missing) (missing) (missing) Result panel 732 Specimen collection (procedure) (no date) [facility] (missing) (missing) (missing) Result panel 733 Specimen collection (procedure) (no date) [facility] (missing) (missing) (missing) Result panel 734 Specimen collection (procedure) (no date) [facility] (missing) (missing) (missing) Result panel 735 Specimen collection (procedure) (no date) [facility] (missing) (missing) (missing) Result panel 736 Specimen collection (procedure) (no date) [facility] (missing) (missing) (missing) Result panel 737 Specimen collection (procedure) (no date) [facility] (missing) (missing) (missing) Result panel 738 Specimen collection (procedure) (no date) [facility] (missing) (missing) (missing) Result panel 739 Specimen collection (procedure) (no date) [facility] (missing) (missing) (missing) Result panel 740 Specimen collection (procedure) (no date) [facility] (missing) (missing) (missing) Result panel 741 Specimen collection (procedure) (no date) [facility] (missing) (missing) (missing) Result panel 742 Specimen collection (procedure) (no date) [facility] (missing) (missing) (missing) Result panel 743 Specimen collection (procedure) (no date) [facility] (missing) (missing) (missing) Result panel 744 Specimen collection (procedure) (no date) [facility] (missing) (missing) (missing) Result panel 745 Specimen collection (procedure) (no date) [facility] (missing) (missing) (missing) Result panel 746 Specimen collection (procedure) (no date) [facility] (missing) (missing) (missing) Result panel 747 Specimen collection (procedure) (no date) [facility] (missing) (missing) (missing) Result panel 748 Specimen collection (procedure) (no date) [facility] (missing) (missing) (missing) Result panel 749 Specimen collection (procedure) (no date) [facility] (missing) (missing) (missing) Result panel 750 Specimen collection (procedure) (no date) [facility] (missing) (missing) (missing) Result panel 751 Specimen collection (procedure) (no date) [facility] (missing) (missing) (missing) Result panel 752 Specimen collection (procedure) (no date) [facility] (missing) (missing) (missing) Result panel 753 Specimen collection (procedure) (no date) [facility] (missing) (missing) (missing) Result panel 754 Specimen collection (procedure) (no date) [facility] (missing) (missing) (missing) Result panel 755 Specimen collection (procedure) (no date) [facility] (missing) (missing) (missing) Result panel 756 Specimen collection (procedure) (no date) [facility] (missing) (missing) (missing) Result panel 757 Specimen collection (procedure) (no date) [facility] (missing) (missing) (missing) Result panel 758 Specimen collection (procedure) (no date) [facility] (missing) (missing) (missing) Result panel 759 Specimen collection (procedure) (no date) [facility] (missing) (missing) (missing) Result panel 760 Specimen collection (procedure) (no date) [facility] (missing) (missing) (missing) Result panel 761 Specimen collection (procedure) (no date) [facility] (missing) (missing) (missing) Result panel 762 Specimen collection (procedure) (no date) [facility] (missing) (missing) (missing) Result panel 763 Specimen collection (procedure) (no date) [facility] (missing) (missing) (missing) Result panel 764 Specimen collection (procedure) (no date) [facility] (missing) (missing) (missing) Result panel 765 Specimen collection (procedure) (no date) [facility] (missing) (missing) (missing) Result panel 766 Specimen collection (procedure) (no date) [facility] (missing) (missing) (missing) Result panel 767 Specimen collection (procedure) (no date) [facility] (missing) (missing) (missing) Result panel 768 Specimen collection (procedure) (no date) [facility] (missing) (missing) (missing) Result panel 769 Specimen collection (procedure) (no date) [facility] (missing) (missing) (missing) Result panel 770 Specimen collection (procedure) (no date) [facility] (missing) (missing) (missing) Result panel 771 Specimen collection (procedure) (no date) [facility] (missing) (missing) (missing) Result panel 772 Specimen collection (procedure) (no date) [facility] (missing) (missing) (missing) Result panel 773 Specimen collection (procedure) (no date) [facility] (missing) (missing) (missing) Result panel 774 Specimen collection (procedure) (no date) [facility] (missing) (missing) (missing) Result panel 775 Specimen collection (procedure) (no date) [facility] (missing) (missing) (missing) Result panel 776 Specimen collection (procedure) (no date) [facility] (missing) (missing) (missing) Result panel 777 Specimen collection (procedure) (no date) [facility] (missing) (missing) (missing) Result panel 778 Specimen collection (procedure) (no date) [facility] (missing) (missing) (missing) Result panel 779 Specimen collection (procedure) (no date) [facility] (missing) (missing) (missing) Result panel 780 Specimen collection (procedure) (no date) [facility] (missing) (missing) (missing) Result panel 781 Specimen collection (procedure) (no date) [facility] (missing) (missing) (missing) Result panel 782 Specimen collection (procedure) (no date) [facility] (missing) (missing) (missing) Result panel 783 Specimen collection (procedure) (no date) [facility] (missing) (missing) (missing) Result panel 784 Specimen collection (procedure) (no date) [facility] (missing) (missing) (missing) Result panel 785 Specimen collection (procedure) (no date) [facility] (missing) (missing) (missing) Result panel 786 Specimen collection (procedure) (no date) [facility] (missing) (missing) (missing) Result panel 787 Specimen collection (procedure) (no date) [facility] (missing) (missing) (missing) Result panel 788 Specimen collection (procedure) (no date) [facility] (missing) (missing) (missing) Result panel 789 Specimen collection (procedure) (no date) [facility] (missing) (missing) (missing) Result panel 790 Specimen collection (procedure) (no date) [facility] (missing) (missing) (missing) Result panel 791 Specimen collection (procedure) (no date) [facility] (missing) (missing) (missing) Result panel 792 Specimen collection (procedure) (no date) [facility] (missing) (missing) (missing) Result panel 793 Specimen collection (procedure) (no date) [facility] (missing) (missing) (missing) Result panel 794 Specimen collection (procedure) (no date) [facility] (missing) (missing) (missing) Result panel 795 Specimen collection (procedure) (no date) [facility] (missing) (missing) (missing) Result panel 796 Specimen collection (procedure) (no date) [facility] (missing) (missing) (missing) Result panel 797 Specimen collection (procedure) (no date) [facility] (missing) (missing) (missing) Result panel 798 Specimen collection (procedure) (no date) [facility] (missing) (missing) (missing) Result panel 799 Specimen collection (procedure) (no date) [facility] (missing) (missing) (missing) Result panel 800 Specimen collection (procedure) (no date) [facility] (missing) (missing) (missing) Result panel 801 Specimen collection (procedure) (no date) [facility] (missing) (missing) (missing) Result panel 802 Specimen collection (procedure) (no date) [facility] (missing) (missing) (missing) Result panel 803 Specimen collection (procedure) (no date) [facility] (missing) (missing) (missing) Result panel 804 Specimen collection (procedure) (no date) [facility] (missing) (missing) (missing) Result panel 805 Specimen collection (procedure) (no date) [facility] (missing) (missing) (missing) Result panel 806 Specimen collection (procedure) (no date) [facility] (missing) (missing) (missing) Result panel 807 Specimen collection (procedure) (no date) [facility] (missing) (missing) (missing) Result panel 808 Specimen collection (procedure) (no date) [facility] (missing) (missing) (missing) Result panel 809 Specimen collection (procedure) (no date) [facility] (missing) (missing) (missing) Result panel 810 Specimen collection (procedure) (no date) [facility] (missing) (missing) (missing) Result panel 811 Specimen collection (procedure) (no date) [facility] (missing) (missing) (missing) Result panel 812 Specimen collection (procedure) (no date) [facility] (missing) (missing) (missing) Result panel 813 Specimen collection (procedure) (no date) [facility] (missing) (missing) (missing) Result panel 814 Specimen collection (procedure) (no date) [facility] (missing) (missing) (missing) Result panel 815 Specimen collection (procedure) (no date) [facility] (missing) (missing) (missing) Result panel 816 Specimen collection (procedure) (no date) [facility] (missing) (missing) (missing) Result panel 817 Specimen collection (procedure) (no date) [facility] (missing) (missing) (missing) Result panel 818 Specimen collection (procedure) (no date) [facility] (missing) (missing) (missing) Result panel 819 Specimen collection (procedure) (no date) [facility] (missing) (missing) (missing) Result panel 820 Specimen collection (procedure) (no date) [facility] (missing) (missing) (missing) Result panel 821 Specimen collection (procedure) (no date) [facility] (missing) (missing) (missing) Result panel 822 Specimen collection (procedure) (no date) [facility] (missing) (missing) (missing) Result panel 823 Specimen collection (procedure) (no date) [facility] (missing) (missing) (missing) Result panel 824 Specimen collection (procedure) (no date) [facility] (missing) (missing) (missing) Result panel 825 Specimen collection (procedure) (no date) [facility] (missing) (missing) (missing) Result panel 826 Specimen collection (procedure) (no date) [facility] (missing) (missing) (missing) Result panel 827 Specimen collection (procedure) (no date) [facility] (missing) (missing) (missing) Result panel 828 Specimen collection (procedure) (no date) [facility] (missing) (missing) (missing) Result panel 829 Specimen collection (procedure) (no date) [facility] (missing) (missing) (missing) Result panel 830 Specimen collection (procedure) (no date) [facility] (missing) (missing) (missing) Result panel 831 Specimen collection (procedure) (no date) [facility] (missing) (missing) (missing) Result panel 832 Specimen collection (procedure) (no date) [facility] (missing) (missing) (missing) Result panel 833 Specimen collection (procedure) (no date) [facility] (missing) (missing) (missing) Result panel 834 Specimen collection (procedure) (no date) [facility] (missing) (missing) (missing) Result panel 835 Specimen collection (procedure) (no date) [facility] (missing) (missing) (missing) Result panel 836 Specimen collection (procedure) (no date) [facility] (missing) (missing) (missing) Result panel 837 Specimen collection (procedure) (no date) [facility] (missing) (missing) (missing) Result panel 838 Specimen collection (procedure) (no date) [facility] (missing) (missing) (missing) Result panel 839 Specimen collection (procedure) (no date) [facility] (missing) (missing) (missing) Result panel 840 Specimen collection (procedure) (no date) [facility] (missing) (missing) (missing) Result panel 841 Specimen collection (procedure) (no date) [facility] (missing) (missing) (missing) Result panel 842 Specimen collection (procedure) (no date) [facility] (missing) (missing) (missing) Result panel 843 Specimen collection (procedure) (no date) [facility] (missing) (missing) (missing) Result panel 844 Specimen collection (procedure) (no date) [facility] (missing) (missing) (missing) Result panel 845 Specimen collection (procedure) (no date) [facility] (missing) (missing) (missing) Result panel 846 Specimen collection (procedure) (no date) [facility] (missing) (missing) (missing) Result panel 847 Specimen collection (procedure) (no date) [facility] (missing) (missing) (missing) Result panel 848 Specimen collection (procedure) (no date) [facility] (missing) (missing) (missing) Result panel 849 Specimen collection (procedure) (no date) [facility] (missing) (missing) (missing) Result panel 850 Specimen collection (procedure) (no date) [facility] (missing) (missing) (missing) Result panel 851 Specimen collection (procedure) (no date) [facility] (missing) (missing) (missing) Result panel 852 Specimen collection (procedure) (no date) [facility] (missing) (missing) (missing) Result panel 853 Specimen collection (procedure) (no date) [facility] (missing) (missing) (missing) Result panel 854 Specimen collection (procedure) (no date) [facility] (missing) (missing) (missing) Result panel 855 Specimen collection (procedure) (no date) [facility] (missing) (missing) (missing) Result panel 856 Specimen collection (procedure) (no date) [facility] (missing) (missing) (missing) Result panel 857 Specimen collection (procedure) (no date) [facility] (missing) (missing) (missing) Result panel 858 Specimen collection (procedure) (no date) [facility] (missing) (missing) (missing) Result panel 859 Specimen collection (procedure) (no date) [facility] (missing) (missing) (missing) Result panel 860 Specimen collection (procedure) (no date) [facility] (missing) (missing) (missing) Result panel 861 Specimen collection (procedure) (no date) [facility] (missing) (missing) (missing) Result panel 862 Specimen collection (procedure) (no date) [facility] (missing) (missing) (missing) Result panel 863 Specimen collection (procedure) (no date) [facility] (missing) (missing) (missing) Result panel 864 Specimen collection (procedure) (no date) [facility] (missing) (missing) (missing) Result panel 865 Specimen collection (procedure) (no date) [facility] (missing) (missing) (missing) Result panel 866 Specimen collection (procedure) (no date) [facility] (missing) (missing) (missing) Result panel 867 Specimen collection (procedure) (no date) [facility] (missing) (missing) (missing) Result panel 868 Specimen collection (procedure) (no date) [facility] (missing) (missing) (missing) Result panel 869 Specimen collection (procedure) (no date) [facility] (missing) (missing) (missing) Result panel 870 Specimen collection (procedure) (no date) [facility] (missing) (missing) (missing) Result panel 871 Specimen collection (procedure) (no date) [facility] (missing) (missing) (missing) Result panel 872 Specimen collection (procedure) (no date) [facility] (missing) (missing) (missing) Result panel 873 Specimen collection (procedure) (no date) [facility] (missing) (missing) (missing) Result panel 874 Specimen collection (procedure) (no date) [facility] (missing) (missing) (missing) Result panel 875 Specimen collection (procedure) (no date) [facility] (missing) (missing) (missing) Result panel 876 Specimen collection (procedure) (no date) [facility] (missing) (missing) (missing) Result panel 877 Specimen collection (procedure) (no date) [facility] (missing) (missing) (missing) Result panel 878 Specimen collection (procedure) (no date) [facility] (missing) (missing) (missing) Result panel 879 Specimen collection (procedure) (no date) [facility] (missing) (missing) (missing) Result panel 880 Specimen collection (procedure) (no date) [facility] (missing) (missing) (missing) Result panel 881 Specimen collection (procedure) (no date) [facility] (missing) (missing) (missing) Result panel 882 Specimen collection (procedure) (no date) [facility] (missing) (missing) (missing) Result panel 883 Specimen collection (procedure) (no date) [facility] (missing) (missing) (missing) Result panel 884 Specimen collection (procedure) (no date) [facility] (missing) (missing) (missing) Result panel 885 Specimen collection (procedure) (no date) [facility] (missing) (missing) (missing) Result panel 886 Specimen collection (procedure) (no date) [facility] (missing) (missing) (missing) Result panel 887 Specimen collection (procedure) (no date) [facility] (missing) (missing) (missing) Result panel 888 Specimen collection (procedure) (no date) [facility] (missing) (missing) (missing) Result panel 889 Specimen collection (procedure) (no date) [facility] (missing) (missing) (missing) Result panel 890 Specimen collection (procedure) (no date) [facility] (missing) (missing) (missing) Result panel 891 Specimen collection (procedure) (no date) [facility] (missing) (missing) (missing) Result panel 892 Specimen collection (procedure) (no date) [facility] (missing) (missing) (missing) Result panel 893 Specimen collection (procedure) (no date) [facility] (missing) (missing) (missing) Result panel 894 Specimen collection (procedure) (no date) [facility] (missing) (missing) (missing) Result panel 895 Specimen collection (procedure) (no date) [facility] (missing) (missing) (missing) Result panel 896 Specimen collection (procedure) (no date) [facility] (missing) (missing) (missing) Result panel 897 Specimen collection (procedure) (no date) [facility] (missing) (missing) (missing) Result panel 898 Specimen collection (procedure) (no date) [facility] (missing) (missing) (missing) Result panel 899 Specimen collection (procedure) (no date) [facility] (missing) (missing) (missing) Result panel 900 Specimen collection (procedure) (no date) [facility] (missing) (missing) (missing) Result panel 901 Specimen collection (procedure) (no date) [facility] (missing) (missing) (missing) Result panel 902 Specimen collection (procedure) (no date) [facility] (missing) (missing) (missing) Result panel 903 Specimen collection (procedure) (no date) [facility] (missing) (missing) (missing) Result panel 904 Specimen collection (procedure) (no date) [facility] (missing) (missing) (missing) Result panel 905 Specimen collection (procedure) (no date) [facility] (missing) (missing) (missing) Result panel 906 Specimen collection (procedure) (no date) [facility] (missing) (missing) (missing) Result panel 907 Specimen collection (procedure) (no date) [facility] (missing) (missing) (missing) Result panel 908 Specimen collection (procedure) (no date) [facility] (missing) (missing) (missing) Result panel 909 Specimen collection (procedure) (no date) [facility] (missing) (missing) (missing) Result panel 910 Specimen collection (procedure) (no date) [facility] (missing) (missing) (missing) Result panel 911 Specimen collection (procedure) (no date) [facility] (missing) (missing) (missing) Result panel 912 Specimen collection (procedure) (no date) [facility] (missing) (missing) (missing) Result panel 913 Specimen collection (procedure) (no date) [facility] (missing) (missing) (missing) Result panel 914 Specimen collection (procedure) (no date) [facility] (missing) (missing) (missing) Result panel 915 Specimen collection (procedure) (no date) [facility] (missing) (missing) (missing) Result panel 916 Specimen collection (procedure) (no date) [facility] (missing) (missing) (missing) Result panel 917 Specimen collection (procedure) (no date) [facility] (missing) (missing) (missing) Result panel 918 Specimen collection (procedure) (no date) [facility] (missing) (missing) (missing) Result panel 919 Specimen collection (procedure) (no date) [facility] (missing) (missing) (missing) Result panel 920 Specimen collection (procedure) (no date) [facility] (missing) (missing) (missing) Result panel 921 Specimen collection (procedure) (no date) [facility] (missing) (missing) (missing) Result panel 922 Specimen collection (procedure) (no date) [facility] (missing) (missing) (missing) Result panel 923 Specimen collection (procedure) (no date) [facility] (missing) (missing) (missing) Result panel 924 Specimen collection (procedure) (no date) [facility] (missing) (missing) (missing) Result panel 925 Specimen collection (procedure) (no date) [facility] (missing) (missing) (missing) Result panel 926 Specimen collection (procedure) (no date) [facility] (missing) (missing) (missing) Result panel 927 Specimen collection (procedure) (no date) [facility] (missing) (missing) (missing) Result panel 928 Specimen collection (procedure) (no date) [facility] (missing) (missing) (missing) Result panel 929 Specimen collection (procedure) (no date) [facility] (missing) (missing) (missing) Result panel 930 Specimen collection (procedure) (no date) [facility] (missing) (missing) (missing) Result panel 931 Specimen collection (procedure) (no date) [facility] (missing) (missing) (missing) Result panel 932 Specimen collection (procedure) (no date) [facility] (missing) (missing) (missing) Result panel 933 Specimen collection (procedure) (no date) [facility] (missing) (missing) (missing) Result panel 934 Specimen collection (procedure) (no date) [facility] (missing) (missing) (missing) Result panel 935 Specimen collection (procedure) (no date) [facility] (missing) (missing) (missing) Result panel 936 Specimen collection (procedure) (no date) [facility] (missing) (missing) (missing) Result panel 937 Specimen collection (procedure) (no date) [facility] (missing) (missing) (missing) Result panel 938 Specimen collection (procedure) (no date) [facility] (missing) (missing) (missing) Result panel 939 Specimen collection (procedure) (no date) [facility] (missing) (missing) (missing) Result panel 940 Specimen collection (procedure) (no date) [facility] (missing) (missing) (missing) Result panel 941 Specimen collection (procedure) (no date) [facility] (missing) (missing) (missing) Result panel 942 Specimen collection (procedure) (no date) [facility] (missing) (missing) (missing) Result panel 943 Specimen collection (procedure) (no date) [facility] (missing) (missing) (missing) Result panel 944 Specimen collection (procedure) (no date) [facility] (missing) (missing) (missing) Result panel 945 Specimen collection (procedure) (no date) [facility] (missing) (missing) (missing) Result panel 946 Specimen collection (procedure) (no date) [facility] (missing) (missing) (missing) Result panel 947 Specimen collection (procedure) (no date) [facility] (missing) (missing) (missing) Result panel 948 Specimen collection (procedure) (no date) [facility] (missing) (missing) (missing) Result panel 949 Specimen collection (procedure) (no date) [facility] (missing) (missing) (missing) Result panel 950 Specimen collection (procedure) (no date) [facility] (missing) (missing) (missing) Result panel 951 Specimen collection (procedure) (no date) [facility] (missing) (missing) (missing) Result panel 952 Specimen collection (procedure) (no date) [facility] (missing) (missing) (missing) Result panel 953 Specimen collection (procedure) (no date) [facility] (missing) (missing) (missing) Result panel 954 Specimen collection (procedure) (no date) [facility] (missing) (missing) (missing) Result panel 955 Specimen collection (procedure) (no date) [facility] (missing) (missing) (missing) Result panel 956 Specimen collection (procedure) (no date) [facility] (missing) (missing) (missing) Result panel 957 Specimen collection (procedure) (no date) [facility] (missing) (missing) (missing) Result panel 958 Specimen collection (procedure) (no date) [facility] (missing) (missing) (missing) Result panel 959 Specimen collection (procedure) (no date) [facility] (missing) (missing) (missing) Result panel 960 Specimen collection (procedure) (no date) [facility] (missing) (missing) (missing) Result panel 961 Specimen collection (procedure) (no date) [facility] (missing) (missing) (missing) Result panel 962 Specimen collection (procedure) (no date) [facility] (missing) (missing) (missing) Result panel 963 Specimen collection (procedure) (no date) [facility] (missing) (missing) (missing) Result panel 964 Specimen collection (procedure) (no date) [facility] (missing) (missing) (missing) Result panel 965 Specimen collection (procedure) (no date) [facility] (missing) (missing) (missing) Result panel 966 Specimen collection (procedure) (no date) [facility] (missing) (missing) (missing) Result panel 967 Specimen collection (procedure) (no date) [facility] (missing) (missing) (missing) Result panel 968 Specimen collection (procedure) (no date) [facility] (missing) (missing) (missing) Result panel 969 Specimen collection (procedure) (no date) [facility] (missing) (missing) (missing) Result panel 970 Specimen collection (procedure) (no date) [facility] (missing) (missing) (missing) Result panel 971 Specimen collection (procedure) (no date) [facility] (missing) (missing) (missing) Result panel 972 Specimen collection (procedure) (no date) [facility] (missing) (missing) (missing) Result panel 973 Specimen collection (procedure) (no date) [facility] (missing) (missing) (missing) Result panel 974 Specimen collection (procedure) (no date) [facility] (missing) (missing) (missing) Result panel 975 Specimen collection (procedure) (no date) [facility] (missing) (missing) (missing) Result panel 976 Specimen collection (procedure) (no date) [facility] (missing) (missing) (missing) Result panel 977 Specimen collection (procedure) (no date) [facility] (missing) (missing) (missing) Result panel 978 Specimen collection (procedure) (no date) [facility] (missing) (missing) (missing) Result panel 979 Specimen collection (procedure) (no date) [facility] (missing) (missing) (missing) Result panel 980 Specimen collection (procedure) (no date) [facility] (missing) (missing) (missing) Result panel 981 Specimen collection (procedure) (no date) [facility] (missing) (missing) (missing) Result panel 982 Specimen collection (procedure) (no date) [facility] (missing) (missing) (missing) Result panel 983 Specimen collection (procedure) (no date) [facility] (missing) (missing) (missing) Result panel 984 Specimen collection (procedure) (no date) [facility] (missing) (missing) (missing) Result panel 985 Specimen collection (procedure) (no date) [facility] (missing) (missing) (missing) Result panel 986 Specimen collection (procedure) (no date) [facility] (missing) (missing) (missing) Result panel 987 Specimen collection (procedure) (no date) [facility] (missing) (missing) (missing) Result panel 988 Specimen collection (procedure) (no date) [facility] (missing) (missing) (missing) Result panel 989 Specimen collection (procedure) (no date) [facility] (missing) (missing) (missing) Result panel 990 Specimen collection (procedure) (no date) [facility] (missing) (missing) (missing) Result panel 991 Specimen collection (procedure) (no date) [facility] (missing) (missing) (missing) Result panel 992 Specimen collection (procedure) (no date) [facility] [facility] (missing) (missing) Result panel 993 Specimen collection (procedure) (no date) [facility] (missing) (missing) (missing) Result panel 994 Specimen collection (procedure) (no date) [facility] (missing) (missing) (missing) Result panel 995 Specimen collection (procedure) (no date) [facility] (missing) (missing) (missing) Result panel 996 Specimen collection (procedure) (no date) [facility] (missing) (missing) (missing) Result panel 997 Specimen collection (procedure) (no date) [facility] (missing) (missing) (missing) Result panel 998 Specimen collection (procedure) (no date) [facility] (missing) (missing) (missing) Result panel 999 Specimen collection (procedure) (no date) [facility] (missing) (missing) (missing) Result panel 1000 Specimen collection (procedure) (no date) [facility] (missing) (missing) (missing) Result panel 1001 Specimen collection (procedure) (no date) [facility] (missing) (missing) (missing) Result panel 1002 Specimen collection (procedure) (no date) [facility] (missing) (missing) (missing) Result panel 1003 Specimen collection (procedure) (no date) [facility] (missing) (missing) (missing) Result panel 1004 Specimen collection (procedure) (no date) [facility] (missing) (missing) (missing) Result panel 1005 Specimen collection (procedure) (no date) [facility] (missing) (missing) (missing) Result panel 1006 Specimen collection (procedure) (no date) [facility] (missing) (missing) (missing) Result panel 1007 Specimen collection (procedure) (no date) [facility] (missing) (missing) (missing) Result panel 1008 Specimen collection (procedure) (no date) [facility] (missing) (missing) (missing) Result panel 1009 Specimen collection (procedure) (no date) [facility] (missing) (missing) (missing) Result panel 1010 Specimen collection (procedure) (no date) [facility] (missing) (missing) (missing) Result panel 1011 Specimen collection (procedure) (no date) [facility] (missing) (missing) (missing) Result panel 1012 Specimen collection (procedure) (no date) [facility] (missing) (missing) (missing) Result panel 1013 Specimen collection (procedure) (no date) [facility] (missing) (missing) (missing) Result panel 1014 Specimen collection (procedure) (no date) [facility] (missing) (missing) (missing) Result panel 1015 Specimen collection (procedure) (no date) [facility] (missing) (missing) (missing) Result panel 1016 Specimen collection (procedure) (no date) [facility] (missing) (missing) (missing) Result panel 1017 Specimen collection (procedure) (no date) [facility] (missing) (missing) (missing) Result panel 1018 Specimen collection (procedure) (no date) [facility] (missing) (missing) (missing) Result panel 1019 Specimen collection (procedure) (no date) [facility] (missing) (missing) (missing) Result panel 1020 Specimen collection (procedure) (no date) [facility] (missing) (missing) (missing) Result panel 1021 Specimen collection (procedure) (no date) [facility] (missing) (missing) (missing) Result panel 1022 Specimen collection (procedure) (no date) [facility] (missing) (missing) (missing) Result panel 1023 Specimen collection (procedure) (no date) [facility] (missing) (missing) (missing) Result panel 1024 Specimen collection (procedure) (no date) [facility] (missing) (missing) (missing) Result panel 1025 Specimen collection (procedure) (no date) [facility] (missing) (missing) (missing) Result panel 1026 Specimen collection (procedure) (no date) [facility] (missing) (missing) (missing) Result panel 1027 Specimen collection (procedure) (no date) [facility] (missing) (missing) (missing) Result panel 1028 Specimen collection (procedure) (no date) [facility] (missing) (missing) (missing) Result panel 1029 Specimen collection (procedure) (no date) [facility] (missing) (missing) (missing) Result panel 1030 Specimen collection (procedure) (no date) [facility] (missing) (missing) (missing) Result panel 1031 Specimen collection (procedure) (no date) [facility] (missing) (missing) (missing) Result panel 1032 Specimen collection (procedure) (no date) [facility] (missing) (missing) (missing) Result panel 1033 Specimen collection (procedure) (no date) [facility] (missing) (missing) (missing) Result panel 1034 Specimen collection (procedure) (no date) [facility] (missing) (missing) (missing) Result panel 1035 Specimen collection (procedure) (no date) [facility] (missing) (missing) (missing) Result panel 1036 Specimen collection (procedure) (no date) [facility] (missing) (missing) (missing) Result panel 1037 Specimen collection (procedure) (no date) [facility] (missing) (missing) (missing) Result panel 1038 Specimen collection (procedure) (no date) [facility] (missing) (missing) (missing) Result panel 1039 Specimen collection (procedure) (no date) [facility] (missing) (missing) (missing) Result panel 1040 Specimen collection (procedure) (no date) [facility] (missing) (missing) (missing) Result panel 1041 Specimen collection (procedure) (no date) [facility] (missing) (missing) (missing) Result panel 1042 Specimen collection (procedure) (no date) [facility] (missing) (missing) (missing) Result panel 1043 Specimen collection (procedure) (no date) [facility] (missing) (missing) (missing) Result panel 1044 Specimen collection (procedure) (no date) [facility] (missing) (missing) (missing) Result panel 1045 Specimen collection (procedure) (no date) [facility] (missing) (missing) (missing) Result panel 1046 Specimen collection (procedure) (no date) [facility] (missing) (missing) (missing) Result panel 1047 Specimen collection (procedure) (no date) [facility] (missing) (missing) (missing) Result panel 1048 Specimen collection (procedure) (no date) [facility] (missing) (missing) (missing) Result panel 1049 Specimen collection (procedure) (no date) [facility] (missing) (missing) (missing) Result panel 1050 Specimen collection (procedure) (no date) [facility] (missing) (missing) (missing) Result panel 1051 Specimen collection (procedure) (no date) [facility] (missing) (missing) (missing) Result panel 1052 Specimen collection (procedure) (no date) [facility] (missing) (missing) (missing) Result panel 1053 Specimen collection (procedure) (no date) [facility] (missing) (missing) (missing) Result panel 1054 Specimen collection (procedure) (no date) [facility] (missing) (missing) (missing) Result panel 1055 Specimen collection (procedure) (no date) [facility] (missing) (missing) (missing) Result panel 1056 Specimen collection (procedure) (no date) [facility] (missing) (missing) (missing) Result panel 1057 Specimen collection (procedure) (no date) [facility] (missing) (missing) (missing) Result panel 1058 Specimen collection (procedure) (no date) [facility] (missing) (missing) (missing) Result panel 1059 Specimen collection (procedure) (no date) [facility] (missing) (missing) (missing) Result panel 1060 Specimen collection (procedure) (no date) [facility] (missing) (missing) (missing) Result panel 1061 Specimen collection (procedure) (no date) [facility] (missing) (missing) (missing) Result panel 1062 Specimen collection (procedure) (no date) [facility] (missing) (missing) (missing) Result panel 1063 Specimen collection (procedure) (no date) [facility] (missing) (missing) (missing) Result panel 1064 Specimen collection (procedure) (no date) [facility] (missing) (missing) (missing) Result panel 1065 Specimen collection (procedure) (no date) [facility] (missing) (missing) (missing) Result panel 1066 Specimen collection (procedure) (no date) [facility] (missing) (missing) (missing) Result panel 1067 Specimen collection (procedure) (no date) [facility] (missing) (missing) (missing) Result panel 1068 Specimen collection (procedure) (no date) [facility] (missing) (missing) (missing) Result panel 1069 Specimen collection (procedure) (no date) [facility] (missing) (missing) (missing) Result panel 1070 Specimen collection (procedure) (no date) [facility] (missing) (missing) (missing) Result panel 1071 Specimen collection (procedure) (no date) [facility] (missing) (missing) (missing) Result panel 1072 Specimen collection (procedure) (no date) [facility] (missing) (missing) (missing) Result panel 1073 Specimen collection (procedure) (no date) [facility] (missing) (missing) (missing) Result panel 1074 Specimen collection (procedure) (no date) [facility] (missing) (missing) (missing) Result panel 1075 Specimen collection (procedure) (no date) [facility] (missing) (missing) (missing) Result panel 1076 Specimen collection (procedure) (no date) [facility] (missing) (missing) (missing) Result panel 1077 Specimen collection (procedure) (no date) [facility] (missing) (missing) (missing) Result panel 1078 Specimen collection (procedure) (no date) [facility] (missing) (missing) (missing) Result panel 1079 Specimen collection (procedure) (no date) [facility] (missing) (missing) (missing) Result panel 1080 Specimen collection (procedure) (no date) [facility] (missing) (missing) (missing) Result panel 1081 Specimen collection (procedure) (no date) [facility] (missing) (missing) (missing) Result panel 1082 Specimen collection (procedure) (no date) [facility] (missing) (missing) (missing) Result panel 1083 Specimen collection (procedure) (no date) [facility] (missing) (missing) (missing) Result panel 1084 Specimen collection (procedure) (no date) [facility] (missing) (missing) (missing) Result panel 1085 Specimen collection (procedure) (no date) [facility] (missing) (missing) (missing) Result panel 1086 Specimen collection (procedure) (no date) [facility] (missing) (missing) (missing) Result panel 1087 Specimen collection (procedure) (no date) [facility] (missing) (missing) (missing) Result panel 1088 Specimen collection (procedure) (no date) [facility] (missing) (missing) (missing) Result panel 1089 Specimen collection (procedure) (no date) [facility] (missing) (missing) (missing) Result panel 1090 Specimen collection (procedure) (no date) [facility] (missing) (missing) (missing) Result panel 1091 Specimen collection (procedure) (no date) [facility] (missing) (missing) (missing) Result panel 1092 Specimen collection (procedure) (no date) [facility] (missing) (missing) (missing) Result panel 1093 Specimen collection (procedure) (no date) [facility] (missing) (missing) (missing) Result panel 1094 Specimen collection (procedure) (no date) [facility] (missing) (missing) (missing) Result panel 1095 Specimen collection (procedure) (no date) [facility] (missing) (missing) (missing) Result panel 1096 Specimen collection (procedure) (no date) [facility] (missing) (missing) (missing) Result panel 1097 Specimen collection (procedure) (no date) [facility] (missing) (missing) (missing) Result panel 1098 Specimen collection (procedure) (no date) [facility] (missing) (missing) (missing) Result panel 1099 Specimen collection (procedure) (no date) [facility] (missing) (missing) (missing) Result panel 1100 Specimen collection (procedure) (no date) [facility] (missing) (missing) (missing) Result panel 1101 Specimen collection (procedure) (no date) [facility] (missing) (missing) (missing) Result panel 1102 Specimen collection (procedure) (no date) [facility] (missing) (missing) (missing) Result panel 1103 Specimen collection (procedure) (no date) [facility] (missing) (missing) (missing) Result panel 1104 Specimen collection (procedure) (no date) [facility] (missing) (missing) (missing) Result panel 1105 Specimen collection (procedure) (no date) [facility] (missing) (missing) (missing) Result panel 1106 Specimen collection (procedure) (no date) [facility] (missing) (missing) (missing) Result panel 1107 Specimen collection (procedure) (no date) [facility] (missing) (missing) (missing) Result panel 1108 Specimen collection (procedure) (no date) [facility] (missing) (missing) (missing) Result panel 1109 Specimen collection (procedure) (no date) [facility] (missing) (missing) (missing) Result panel 1110 Specimen collection (procedure) (no date) [facility] (missing) (missing) (missing) Result panel 1111 Specimen collection (procedure) (no date) [facility] (missing) (missing) (missing) Result panel 1112 Specimen collection (procedure) (no date) [facility] (missing) (missing) (missing) Result panel 1113 Specimen collection (procedure) (no date) [facility] (missing) (missing) (missing) Result panel 1114 Specimen collection (procedure) (no date) [facility] (missing) (missing) (missing) Result panel 1115 Specimen collection (procedure) (no date) [facility] (missing) (missing) (missing) Result panel 1116 Specimen collection (procedure) (no date) [facility] (missing) (missing) (missing) Result panel 1117 Specimen collection (procedure) (no date) [facility] (missing) (missing) (missing) Result panel 1118 Specimen collection (procedure) (no date) [facility] (missing) (missing) (missing) Result panel 1119 Specimen collection (procedure) (no date) [facility] (missing) (missing) (missing) Result panel 1120 Specimen collection (procedure) (no date) [facility] (missing) (missing) (missing) Result panel 1121 Specimen collection (procedure) (no date) [facility] (missing) (missing) (missing) Result panel 1122 Specimen collection (procedure) (no date) [facility] (missing) (missing) (missing) Result panel 1123 Specimen collection (procedure) (no date) [facility] (missing) (missing) (missing) Result panel 1124 Specimen collection (procedure) (no date) [facility] (missing) (missing) (missing) Result panel 1125 Specimen collection (procedure) (no date) [facility] (missing) (missing) (missing) Result panel 1126 Specimen collection (procedure) (no date) [facility] (missing) (missing) (missing) Result panel 1127 Specimen collection (procedure) (no date) [facility] (missing) (missing) (missing) Result panel 1128 Specimen collection (procedure) (no date) [facility] (missing) (missing) (missing) Result panel 1129 Specimen collection (procedure) (no date) [facility] (missing) (missing) (missing) Result panel 1130 Specimen collection (procedure) (no date) [facility] (missing) (missing) (missing) Result panel 1131 Specimen collection (procedure) (no date) [facility] (missing) (missing) (missing) Result panel 1132 Specimen collection (procedure) (no date) [facility] (missing) (missing) (missing) Result panel 1133 Specimen collection (procedure) (no date) [facility] (missing) (missing) (missing) Result panel 1134 Specimen collection (procedure) (no date) [facility] (missing) (missing) (missing) Result panel 1135 Specimen collection (procedure) (no date) [facility] (missing) (missing) (missing) Result panel 1136 Specimen collection (procedure) (no date) [facility] (missing) (missing) (missing) Result panel 1137 Specimen collection (procedure) (no date) [facility] (missing) (missing) (missing) Result panel 1138 Specimen collection (procedure) (no date) [facility] (missing) (missing) (missing) Result panel 1139 Specimen collection (procedure) (no date) [facility] (missing) (missing) (missing) Result panel 1140 Specimen collection (procedure) (no date) [facility] (missing) (missing) (missing) Result panel 1141 Specimen collection (procedure) (no date) [facility] (missing) (missing) (missing) Result panel 1142 Specimen collection (procedure) (no date) [facility] (missing) (missing) (missing) Result panel 1143 Specimen collection (procedure) (no date) [facility] (missing) (missing) (missing) Result panel 1144 Specimen collection (procedure) (no date) [facility] (missing) (missing) (missing) Result panel 1145 Specimen collection (procedure) (no date) [facility] (missing) (missing) (missing) Result panel 1146 Specimen collection (procedure) (no date) [facility] (missing) (missing) (missing) Result panel 1147 Specimen collection (procedure) (no date) [facility] (missing) (missing) (missing) Result panel 1148 Specimen collection (procedure) (no date) [facility] (missing) (missing) (missing) Result panel 1149 Specimen collection (procedure) (no date) [facility] (missing) (missing) (missing) Result panel 1150 Specimen collection (procedure) (no date) [facility] (missing) (missing) (missing) Result panel 1151 Specimen collection (procedure) (no date) [facility] (missing) (missing) (missing) Result panel 1152 Specimen collection (procedure) (no date) [facility] (missing) (missing) (missing) Result panel 1153 Specimen collection (procedure) (no date) [facility] (missing) (missing) (missing) Result panel 1154 Specimen collection (procedure) (no date) [facility] (missing) (missing) (missing) Result panel 1155 Specimen collection (procedure) (no date) [facility] (missing) (missing) (missing) Result panel 1156 Specimen collection (procedure) (no date) [facility] (missing) (missing) (missing) Result panel 1157 Specimen collection (procedure) (no date) [facility] (missing) (missing) (missing) Result panel 1158 Specimen collection (procedure) (no date) [facility] (missing) (missing) (missing) Result panel 1159 Specimen collection (procedure) (no date) [facility] (missing) (missing) (missing) Result panel 1160 Specimen collection (procedure) (no date) [facility] (missing) (missing) (missing) Result panel 1161 Specimen collection (procedure) (no date) [facility] (missing) (missing) (missing) Result panel 1162 Specimen collection (procedure) (no date) [facility] (missing) (missing) (missing) Result panel 1163 Specimen collection (procedure) (no date) [facility] (missing) (missing) (missing) Result panel 1164 Specimen collection (procedure) (no date) [facility] (missing) (missing) (missing) Result panel 1165 Specimen collection (procedure) (no date) [facility] (missing) (missing) (missing) Result panel 1166 Specimen collection (procedure) (no date) [facility] (missing) (missing) (missing) Result panel 1167 Specimen collection (procedure) (no date) [facility] (missing) (missing) (missing) Result panel 1168 Specimen collection (procedure) (no date) [facility] (missing) (missing) (missing) Result panel 1169 Specimen collection (procedure) (no date) [facility] (missing) (missing) (missing) Result panel 1170 Specimen collection (procedure) (no date) [facility] (missing) (missing) (missing) Result panel 1171 Specimen collection (procedure) (no date) [facility] (missing) (missing) (missing) Result panel 1172 Specimen collection (procedure) (no date) [facility] (missing) (missing) (missing) Result panel 1173 Specimen collection (procedure) (no date) [facility] (missing) (missing) (missing) Result panel 1174 Specimen collection (procedure) (no date) [facility] (missing) (missing) (missing) Result panel 1175 Specimen collection (procedure) (no date) [facility] (missing) (missing) (missing) Result panel 1176 Specimen collection (procedure) (no date) [facility] (missing) (missing) (missing) Result panel 1177 Specimen collection (procedure) (no date) [facility] (missing) (missing) (missing) Result panel 1178 Specimen collection (procedure) (no date) [facility] (missing) (missing) (missing) Result panel 1179 Specimen collection (procedure) (no date) [facility] (missing) (missing) (missing) Result panel 1180 Specimen collection (procedure) (no date) [facility] (missing) (missing) (missing) Result panel 1181 Specimen collection (procedure) (no date) [facility] (missing) (missing) (missing) Result panel 1182 Specimen collection (procedure) (no date) [facility] (missing) (missing) (missing) Result panel 1183 Specimen collection (procedure) (no date) [facility] (missing) (missing) (missing) Result panel 1184 Specimen collection (procedure) (no date) [facility] (missing) (missing) (missing) Result panel 1185 Specimen collection (procedure) (no date) [facility] (missing) (missing) (missing) Result panel 1186 Specimen collection (procedure) (no date) [facility] (missing) (missing) (missing) Result panel 1187 Specimen collection (procedure) (no date) [facility] (missing) (missing) (missing) Result panel 1188 Specimen collection (procedure) (no date) [facility] (missing) (missing) (missing) Result panel 1189 Specimen collection (procedure) (no date) [facility] (missing) (missing) (missing) Result panel 1190 Specimen collection (procedure) (no date) [facility] (missing) (missing) (missing) Result panel 1191 Specimen collection (procedure) (no date) [facility] (missing) (missing) (missing) Result panel 1192 Specimen collection (procedure) (no date) [facility] (missing) (missing) (missing) Result panel 1193 Specimen collection (procedure) (no date) [facility] (missing) (missing) (missing) Result panel 1194 Specimen collection (procedure) (no date) [facility] (missing) (missing) (missing) Result panel 1195 Specimen collection (procedure) (no date) [facility] (missing) (missing) (missing) Result panel 1196 Specimen collection (procedure) (no date) [facility] (missing) (missing) (missing) Result panel 1197 Specimen collection (procedure) (no date) [facility] (missing) (missing) (missing) Result panel 1198 Specimen collection (procedure) (no date) [facility] (missing) (missing) (missing) Result panel 1199 Specimen collection (procedure) (no date) [facility] (missing) (missing) (missing) Result panel 1200 Specimen collection (procedure) (no date) [facility] (missing) (missing) (missing) Result panel 1201 Specimen collection (procedure) (no date) [facility] (missing) (missing) (missing) Result panel 1202 Specimen collection (procedure) (no date) [facility] (missing) (missing) (missing) Result panel 1203 Specimen collection (procedure) (no date) [facility] (missing) (missing) (missing) Result panel 1204 Specimen collection (procedure) (no date) [facility] (missing) (missing) (missing) Result panel 1205 Specimen collection (procedure) (no date) [facility] (missing) (missing) (missing) Result panel 1206 Specimen collection (procedure) (no date) [facility] (missing) (missing) (missing) Result panel 1207 Specimen collection (procedure) (no date) [facility] (missing) (missing) (missing) Result panel 1208 Specimen collection (procedure) (no date) [facility] (missing) (missing) (missing) Result panel 1209 Specimen collection (procedure) (no date) [facility] (missing) (missing) (missing) Result panel 1210 Specimen collection (procedure) (no date) [facility] (missing) (missing) (missing) Result panel 1211 Specimen collection (procedure) (no date) [facility] (missing) (missing) (missing) Result panel 1212 Specimen collection (procedure) (no date) [facility] (missing) (missing) (missing) Result panel 1213 Specimen collection (procedure) (no date) [facility] (missing) (missing) (missing) Result panel 1214 Specimen collection (procedure) (no date) [facility] (missing) (missing) (missing) Result panel 1215 Specimen collection (procedure) (no date) [facility] (missing) (missing) (missing) Result panel 1216 Specimen collection (procedure) (no date) [facility] (missing) (missing) (missing) Result panel 1217 Specimen collection (procedure) (no date) [facility] (missing) (missing) (missing) Result panel 1218 Specimen collection (procedure) (no date) [facility] (missing) (missing) (missing) Result panel 1219 Specimen collection (procedure) (no date) [facility] (missing) (missing) (missing) Result panel 1220 Specimen collection (procedure) (no date) [facility] (missing) (missing) (missing) Result panel 1221 Specimen collection (procedure) (no date) [facility] (missing) (missing) (missing) Result panel 1222 Specimen collection (procedure) (no date) [facility] (missing) (missing) (missing) Result panel 1223 Specimen collection (procedure) (no date) [facility] (missing) (missing) (missing) Result panel 1224 Specimen collection (procedure) (no date) [facility] (missing) (missing) (missing) Result panel 1225 Specimen collection (procedure) (no date) [facility] (missing) (missing) (missing) Result panel 1226 Specimen collection (procedure) (no date) [facility] (missing) (missing) (missing) Result panel 1227 Specimen collection (procedure) (no date) [facility] (missing) (missing) (missing) Result panel 1228 Specimen collection (procedure) (no date) [facility] (missing) (missing) (missing) Result panel 1229 Specimen collection (procedure) (no date) [facility] (missing) (missing) (missing) Result panel 1230 Specimen collection (procedure) (no date) [facility] (missing) (missing) (missing) Result panel 1231 Specimen collection (procedure) (no date) [facility] (missing) (missing) (missing) Result panel 1232 Specimen collection (procedure) (no date) [facility] (missing) (missing) (missing) Result panel 1233 Specimen collection (procedure) (no date) [facility] (missing) (missing) (missing) Result panel 1234 Specimen collection (procedure) (no date) [facility] (missing) (missing) (missing) Result panel 1235 Specimen collection (procedure) (no date) [facility] (missing) (missing) (missing) Result panel 1236 Specimen collection (procedure) (no date) [facility] (missing) (missing) (missing) Result panel 1237 Specimen collection (procedure) (no date) [facility] (missing) (missing) (missing) Result panel 1238 Specimen collection (procedure) (no date) [facility] (missing) (missing) (missing) Result panel 1239 Specimen collection (procedure) (no date) [facility] (missing) (missing) (missing) Result panel 1240 Specimen collection (procedure) (no date) [facility] (missing) (missing) (missing) Result panel 1241 Specimen collection (procedure) (no date) [facility] (missing) (missing) (missing) Result panel 1242 Specimen collection (procedure) (no date) [facility] (missing) (missing) (missing) Result panel 1243 Specimen collection (procedure) (no date) [facility] (missing) (missing) (missing) Result panel 1244 Specimen collection (procedure) (no date) [facility] (missing) (missing) (missing) Result panel 1245 Specimen collection (procedure) (no date) [facility] (missing) (missing) (missing) Result panel 1246 Specimen collection (procedure) (no date) [facility] (missing) (missing) (missing) Result panel 1247 Specimen collection (procedure) (no date) [facility] (missing) (missing) (missing) Result panel 1248 Specimen collection (procedure) (no date) [facility] (missing) (missing) (missing) Result panel 1249 Specimen collection (procedure) (no date) [facility] (missing) (missing) (missing) Result panel 1250 Specimen collection (procedure) (no date) [facility] (missing) (missing) (missing) Result panel 1251 Specimen collection (procedure) (no date) [facility] (missing) (missing) (missing) Result panel 1252 Specimen collection (procedure) (no date) [facility] (missing) (missing) (missing) Result panel 1253 Specimen collection (procedure) (no date) [facility] (missing) (missing) (missing) Result panel 1254 Specimen collection (procedure) (no date) [facility] (missing) (missing) (missing) Result panel 1255 Specimen collection (procedure) (no date) [facility] (missing) (missing) (missing) Result panel 1256 Specimen collection (procedure) (no date) [facility] (missing) (missing) (missing) Result panel 1257 Specimen collection (procedure) (no date) [facility] (missing) (missing) (missing) Result panel 1258 Specimen collection (procedure) (no date) [facility] (missing) (missing) (missing) Result panel 1259 Specimen collection (procedure) (no date) [facility] (missing) (missing) (missing) Result panel 1260 Specimen collection (procedure) (no date) [facility] (missing) (missing) (missing) Result panel 1261 Specimen collection (procedure) (no date) [facility] (missing) (missing) (missing) Result panel 1262 Specimen collection (procedure) (no date) [facility] (missing) (missing) (missing) Result panel 1263 Specimen collection (procedure) (no date) [facility] (missing) (missing) (missing) Result panel 1264 Specimen collection (procedure) (no date) [facility] (missing) (missing) (missing) Result panel 1265 Specimen collection (procedure) (no date) [facility] (missing) (missing) (missing) Result panel 1266 Specimen collection (procedure) (no date) [facility] (missing) (missing) (missing) Result panel 1267 Specimen collection (procedure) (no date) [facility] (missing) (missing) (missing) Result panel 1268 Specimen collection (procedure) (no date) [facility] (missing) (missing) (missing) Result panel 1269 Specimen collection (procedure) (no date) [facility] (missing) (missing) (missing) Result panel 1270 Specimen collection (procedure) (no date) [facility] (missing) (missing) (missing) Result panel 1271 Specimen collection (procedure) (no date) [facility] (missing) (missing) (missing) Result panel 1272 Specimen collection (procedure) (no date) [facility] (missing) (missing) (missing) Result panel 1273 Specimen collection (procedure) (no date) [facility] (missing) (missing) (missing) Result panel 1274 Specimen collection (procedure) (no date) [facility] (missing) (missing) (missing) Result panel 1275 Specimen collection (procedure) (no date) [facility] (missing) (missing) (missing) Result panel 1276 Specimen collection (procedure) (no date) [facility] (missing) (missing) (missing) Result panel 1277 Specimen collection (procedure) (no date) [facility] (missing) (missing) (missing) Result panel 1278 Specimen collection (procedure) (no date) [facility] (missing) (missing) (missing) Result panel 1279 Specimen collection (procedure) (no date) [facility] (missing) (missing) (missing) Result panel 1280 Specimen collection (procedure) (no date) [facility] (missing) (missing) (missing) Result panel 1281 Specimen collection (procedure) (no date) [facility] (missing) (missing) (missing) Result panel 1282 Specimen collection (procedure) (no date) [facility] (missing) (missing) (missing) Result panel 1283 Specimen collection (procedure) (no date) [facility] (missing) (missing) (missing) Result panel 1284 Specimen collection (procedure) (no date) [facility] (missing) (missing) (missing) Result panel 1285 Specimen collection (procedure) (no date) [facility] (missing) (missing) (missing) Result panel 1286 Specimen collection (procedure) (no date) [facility] (missing) (missing) (missing) Result panel 1287 Specimen collection (procedure) (no date) [facility] (missing) (missing) (missing) Result panel 1288 Specimen collection (procedure) (no date) [facility] (missing) (missing) (missing) Result panel 1289 Specimen collection (procedure) (no date) [facility] (missing) (missing) (missing) Result panel 1290 Specimen collection (procedure) (no date) [facility] (missing) (missing) (missing) Result panel 1291 Specimen collection (procedure) (no date) [facility] (missing) (missing) (missing) Result panel 1292 Specimen collection (procedure) (no date) [facility] (missing) (missing) (missing) Result panel 1293 Specimen collection (procedure) (no date) [facility] (missing) (missing) (missing) Result panel 1294 Specimen collection (procedure) (no date) [facility] (missing) (missing) (missing) Result panel 1295 Specimen collection (procedure) (no date) [facility] (missing) (missing) (missing) Result panel 1296 Specimen collection (procedure) (no date) [facility] (missing) (missing) (missing) Result panel 1297 Specimen collection (procedure) (no date) [facility] (missing) (missing) (missing) Result panel 1298 Specimen collection (procedure) (no date) [facility] (missing) (missing) (missing) Result panel 1299 Specimen collection (procedure) (no date) [facility] (missing) (missing) (missing) Result panel 1300 Specimen collection (procedure) (no date) [facility] (missing) (missing) (missing) Result panel 1301 Specimen collection (procedure) (no date) [facility] (missing) (missing) (missing) Result panel 1302 Specimen collection (procedure) (no date) [facility] (missing) (missing) (missing) Result panel 1303 Specimen collection (procedure) (no date) [facility] (missing) (missing) (missing) Result panel 1304 Specimen collection (procedure) (no date) [facility] (missing) (missing) (missing) Result panel 1305 Specimen collection (procedure) (no date) [facility] (missing) (missing) (missing) Result panel 1306 Specimen collection (procedure) (no date) [facility] (missing) (missing) (missing) Result panel 1307 Specimen collection (procedure) (no date) [facility] (missing) (missing) (missing) Result panel 1308 Specimen collection (procedure) (no date) [facility] (missing) (missing) (missing) Result panel 1309 Specimen collection (procedure) (no date) [facility] (missing) (missing) (missing) Result panel 1310 Specimen collection (procedure) (no date) [facility] (missing) (missing) (missing) Result panel 1311 Specimen collection (procedure) (no date) [facility] (missing) (missing) (missing) Result panel 1312 Specimen collection (procedure) (no date) [facility] (missing) (missing) (missing) Result panel 1313 Specimen collection (procedure) (no date) [facility] (missing) (missing) (missing) Result panel 1314 Specimen collection (procedure) (no date) [facility] (missing) (missing) (missing) Result panel 1315 Specimen collection (procedure) (no date) [facility] (missing) (missing) (missing) Result panel 1316 Specimen collection (procedure) (no date) [facility] (missing) (missing) (missing) Result panel 1317 Specimen collection (procedure) (no date) [facility] (missing) (missing) (missing) Result panel 1318 Specimen collection (procedure) (no date) [facility] (missing) (missing) (missing) Result panel 1319 Specimen collection (procedure) (no date) [facility] (missing) (missing) (missing) Result panel 1320 Specimen collection (procedure) (no date) [facility] (missing) (missing) (missing) Result panel 1321 Specimen collection (procedure) (no date) [facility] (missing) (missing) (missing) Result panel 1322 Specimen collection (procedure) (no date) [facility] (missing) (missing) (missing) Result panel 1323 Specimen collection (procedure) (no date) [facility] (missing) (missing) (missing) Result panel 1324 Specimen collection (procedure) (no date) [facility] (missing) (missing) (missing) Result panel 1325 Specimen collection (procedure) (no date) [facility] (missing) (missing) (missing) Result panel 1326 Specimen collection (procedure) (no date) [facility] (missing) (missing) (missing) Result panel 1327 Specimen collection (procedure) (no date) [facility] (missing) (missing) (missing) Result panel 1328 Specimen collection (procedure) (no date) [facility] (missing) (missing) (missing) Result panel 1329 Specimen collection (procedure) (no date) [facility] (missing) (missing) (missing) Result panel 1330 Specimen collection (procedure) (no date) [facility] (missing) (missing) (missing) Result panel 1331 Specimen collection (procedure) (no date) [facility] (missing) (missing) (missing) Result panel 1332 Specimen collection (procedure) (no date) [facility] (missing) (missing) (missing) Result panel 1333 Specimen collection (procedure) (no date) [facility] (missing) (missing) (missing) Result panel 1334 Specimen collection (procedure) (no date) [facility] (missing) (missing) (missing) Result panel 1335 Specimen collection (procedure) (no date) [facility] (missing) (missing) (missing) Result panel 1336 Specimen collection (procedure) (no date) [facility] (missing) (missing) (missing) Result panel 1337 Specimen collection (procedure) (no date) [facility] (missing) (missing) (missing) Result panel 1338 Specimen collection (procedure) (no date) [facility] (missing) (missing) (missing) Result panel 1339 Specimen collection (procedure) (no date) [facility] (missing) (missing) (missing) Result panel 1340 Specimen collection (procedure) (no date) [facility] (missing) (missing) (missing) Result panel 1341 Specimen collection (procedure) (no date) [facility] (missing) (missing) (missing) Result panel 1342 Specimen collection (procedure) (no date) [facility] (missing) (missing) (missing) Result panel 1343 Specimen collection (procedure) (no date) [facility] (missing) (missing) (missing) Result panel 1344 Specimen collection (procedure) (no date) [facility] (missing) (missing) (missing) Result panel 1345 Specimen collection (procedure) (no date) [facility] (missing) (missing) (missing) Result panel 1346 Specimen collection (procedure) (no date) [facility] (missing) (missing) (missing) Result panel 1347 Specimen collection (procedure) (no date) [facility] (missing) (missing) (missing) Result panel 1348 Specimen collection (procedure) (no date) [facility] (missing) (missing) (missing) Result panel 1349 Specimen collection (procedure) (no date) [facility] (missing) (missing) (missing) Result panel 1350 Specimen collection (procedure) (no date) [facility] (missing) (missing) (missing) Result panel 1351 Specimen collection (procedure) (no date) [facility] (missing) (missing) (missing) Result panel 1352 Specimen collection (procedure) (no date) [facility] (missing) (missing) (missing) Result panel 1353 Specimen collection (procedure) (no date) [facility] (missing) (missing) (missing) Result panel 1354 Specimen collection (procedure) (no date) [facility] (missing) (missing) (missing) Result panel 1355 Specimen collection (procedure) (no date) [facility] (missing) (missing) (missing) Result panel 1356 Specimen collection (procedure) (no date) [facility] (missing) (missing) (missing) Result panel 1357 Specimen collection (procedure) (no date) [facility] (missing) (missing) (missing) Result panel 1358 Specimen collection (procedure) (no date) [facility] (missing) (missing) (missing) Result panel 1359 Specimen collection (procedure) (no date) [facility] (missing) (missing) (missing) Result panel 1360 Specimen collection (procedure) (no date) [facility] (missing) (missing) (missing) Result panel 1361 Specimen collection (procedure) (no date) [facility] (missing) (missing) (missing) Result panel 1362 Specimen collection (procedure) (no date) [facility] (missing) (missing) (missing) Result panel 1363 Specimen collection (procedure) (no date) [facility] (missing) (missing) (missing) Result panel 1364 Specimen collection (procedure) (no date) [facility] (missing) (missing) (missing) Result panel 1365 Specimen collection (procedure) (no date) [facility] (missing) (missing) (missing) Result panel 1366 Specimen collection (procedure) (no date) [facility] (missing) (missing) (missing) Result panel 1367 Specimen collection (procedure) (no date) [facility] (missing) (missing) (missing) Result panel 1368 Specimen collection (procedure) (no date) [facility] (missing) (missing) (missing) Result panel 1369 Specimen collection (procedure) (no date) [facility] (missing) (missing) (missing) Result panel 1370 Specimen collection (procedure) (no date) [facility] (missing) (missing) (missing) Result panel 1371 Specimen collection (procedure) (no date) [facility] (missing) (missing) (missing) Result panel 1372 Specimen collection (procedure) (no date) [facility] (missing) (missing) (missing) Result panel 1373 Specimen collection (procedure) (no date) [facility] (missing) (missing) (missing) Result panel 1374 Specimen collection (procedure) (no date) [facility] (missing) (missing) (missing) Result panel 1375 Specimen collection (procedure) (no date) [facility] (missing) (missing) (missing) Result panel 1376 Specimen collection (procedure) (no date) [facility] (missing) (missing) (missing) Result panel 1377 Specimen collection (procedure) (no date) [facility] (missing) (missing) (missing) Result panel 1378 Specimen collection (procedure) (no date) [facility] (missing) (missing) (missing) Result panel 1379 Specimen collection (procedure) (no date) [facility] (missing) (missing) (missing) Result panel 1380 Specimen collection (procedure) (no date) [facility] (missing) (missing) (missing) Result panel 1381 Specimen collection (procedure) (no date) [facility] (missing) (missing) (missing) Result panel 1382 Specimen collection (procedure) (no date) [facility] (missing) (missing) (missing) Result panel 1383 Specimen collection (procedure) (no date) [facility] (missing) (missing) (missing) Result panel 1384 Specimen collection (procedure) (no date) [facility] (missing) (missing) (missing) Result panel 1385 Specimen collection (procedure) (no date) [facility] (missing) (missing) (missing) Result panel 1386 Specimen collection (procedure) (no date) [facility] (missing) (missing) (missing) Result panel 1387 Specimen collection (procedure) (no date) [facility] (missing) (missing) (missing) Result panel 1388 Specimen collection (procedure) (no date) [facility] (missing) (missing) (missing) Result panel 1389 Specimen collection (procedure) (no date) [facility] (missing) (missing) (missing) Result panel 1390 Specimen collection (procedure) (no date) [facility] (missing) (missing) (missing) Result panel 1391 Specimen collection (procedure) (no date) [facility] (missing) (missing) (missing) Result panel 1392 Specimen collection (procedure) (no date) [facility] (missing) (missing) (missing) Result panel 1393 Specimen collection (procedure) (no date) [facility] (missing) (missing) (missing) Result panel 1394 Specimen collection (procedure) (no date) [facility] (missing) (missing) (missing) Result panel 1395 Specimen collection (procedure) (no date) [facility] (missing) (missing) (missing) Result panel 1396 Specimen collection (procedure) (no date) [facility] (missing) (missing) (missing) Result panel 1397 Specimen collection (procedure) (no date) [facility] (missing) (missing) (missing) Result panel 1398 Specimen collection (procedure) (no date) [facility] (missing) (missing) (missing) Result panel 1399 Specimen collection (procedure) (no date) [facility] (missing) (missing) (missing) Result panel 1400 Specimen collection (procedure) (no date) [facility] (missing) (missing) (missing) Result panel 1401 Specimen collection (procedure) (no date) [facility] (missing) (missing) (missing) Result panel 1402 Specimen collection (procedure) (no date) [facility] (missing) (missing) (missing) Result panel 1403 Specimen collection (procedure) (no date) [facility] (missing) (missing) (missing) Result panel 1404 Specimen collection (procedure) (no date) [facility] (missing) (missing) (missing) Result panel 1405 Specimen collection (procedure) (no date) [facility] (missing) (missing) (missing) Result panel 1406 Specimen collection (procedure) (no date) [facility] (missing) (missing) (missing) Result panel 1407 Specimen collection (procedure) (no date) [facility] (missing) (missing) (missing) Result panel 1408 Specimen collection (procedure) (no date) [facility] (missing) (missing) (missing) Result panel 1409 Specimen collection (procedure) (no date) [facility] (missing) (missing) (missing) Result panel 1410 Specimen collection (procedure) (no date) [facility] (missing) (missing) (missing) Result panel 1411 Specimen collection (procedure) (no date) [facility] (missing) (missing) (missing) Result panel 1412 Specimen collection (procedure) (no date) [facility] (missing) (missing) (missing) Result panel 1413 Specimen collection (procedure) (no date) [facility] (missing) (missing) (missing) Result panel 1414 Specimen collection (procedure) (no date) [facility] (missing) (missing) (missing) Result panel 1415 Specimen collection (procedure) (no date) [facility] (missing) (missing) (missing) Result panel 1416 Specimen collection (procedure) (no date) [facility] (missing) (missing) (missing) Result panel 1417 Specimen collection (procedure) (no date) [facility] (missing) (missing) (missing) Result panel 1418 Specimen collection (procedure) (no date) [facility] (missing) (missing) (missing) Result panel 1419 Specimen collection (procedure) (no date) [facility] (missing) (missing) (missing) Result panel 1420 Specimen collection (procedure) (no date) [facility] (missing) (missing) (missing) Result panel 1421 Specimen collection (procedure) (no date) [facility] (missing) (missing) (missing) Result panel 1422 Specimen collection (procedure) (no date) [facility] (missing) (missing) (missing) Result panel 1423 Specimen collection (procedure) (no date) [facility] (missing) (missing) (missing) Result panel 1424 Specimen collection (procedure) (no date) [facility] (missing) (missing) (missing) Result panel 1425 Specimen collection (procedure) (no date) [facility] (missing) (missing) (missing) Result panel 1426 Specimen collection (procedure) (no date) [facility] (missing) (missing) (missing) Result panel 1427 Specimen collection (procedure) (no date) [facility] (missing) (missing) (missing) Result panel 1428 Specimen collection (procedure) (no date) [facility] (missing) (missing) (missing) Result panel 1429 Specimen collection (procedure) (no date) [facility] (missing) (missing) (missing) Result panel 1430 Specimen collection (procedure) (no date) [facility] (missing) (missing) (missing) Result panel 1431 Specimen collection (procedure) (no date) [facility] (missing) (missing) (missing) Result panel 1432 Specimen collection (procedure) (no date) [facility] (missing) (missing) (missing) Result panel 1433 Specimen collection (procedure) (no date) [facility] (missing) (missing) (missing) Result panel 1434 Specimen collection (procedure) (no date) [facility] (missing) (missing) (missing) Result panel 1435 Specimen collection (procedure) (no date) [facility] (missing) (missing) (missing) Result panel 1436 Specimen collection (procedure) (no date) [facility] (missing) (missing) (missing) Result panel 1437 Specimen collection (procedure) (no date) [facility] (missing) (missing) (missing) Result panel 1438 Specimen collection (procedure) (no date) [facility] (missing) (missing) (missing) Result panel 1439 Specimen collection (procedure) (no date) [facility] (missing) (missing) (missing) Result panel 1440 Specimen collection (procedure) (no date) [facility] (missing) (missing) (missing) Result panel 1441 Specimen collection (procedure) (no date) [facility] (missing) (missing) (missing) Result panel 1442 Specimen collection (procedure) (no date) [facility] (missing) (missing) (missing) Result panel 1443 Specimen collection (procedure) (no date) [facility] (missing) (missing) (missing) Result panel 1444 Specimen collection (procedure) (no date) [facility] (missing) (missing) (missing) Result panel 1445 Specimen collection (procedure) (no date) [facility] (missing) (missing) (missing) Result panel 1446 Specimen collection (procedure) (no date) [facility] (missing) (missing) (missing) Result panel 1447 Specimen collection (procedure) (no date) [facility] (missing) (missing) (missing) Result panel 1448 Specimen collection (procedure) (no date) [facility] (missing) (missing) (missing) Result panel 1449 Specimen collection (procedure) (no date) [facility] (missing) (missing) (missing) Result panel 1450 Specimen collection (procedure) (no date) [facility] (missing) (missing) (missing) Result panel 1451 Specimen collection (procedure) (no date) [facility] (missing) (missing) (missing) Result panel 1452 Specimen collection (procedure) (no date) [facility] (missing) (missing) (missing) Result panel 1453 Specimen collection (procedure) (no date) [facility] (missing) (missing) (missing) Result panel 1454 Specimen collection (procedure) (no date) [facility] (missing) (missing) (missing) Result panel 1455 Specimen collection (procedure) (no date) [facility] (missing) (missing) (missing) Result panel 1456 Specimen collection (procedure) (no date) [facility] (missing) (missing) (missing) Result panel 1457 Specimen collection (procedure) (no date) [facility] (missing) (missing) (missing) Result panel 1458 Specimen collection (procedure) (no date) [facility] (missing) (missing) (missing) Result panel 1459 Specimen collection (procedure) (no date) [facility] (missing) (missing) (missing) Result panel 1460 Specimen collection (procedure) (no date) [facility] (missing) (missing) (missing) Result panel 1461 Specimen collection (procedure) (no date) [facility] (missing) (missing) (missing) Result panel 1462 Specimen collection (procedure) (no date) [facility] (missing) (missing) (missing) Result panel 1463 Specimen collection (procedure) (no date) [facility] (missing) (missing) (missing) Result panel 1464 Specimen collection (procedure) (no date) [facility] (missing) (missing) (missing) Result panel 1465 Specimen collection (procedure) (no date) [facility] (missing) (missing) (missing) Result panel 1466 Specimen collection (procedure) (no date) [facility] (missing) (missing) (missing) Result panel 1467 Specimen collection (procedure) (no date) [facility] (missing) (missing) (missing) Result panel 1468 Specimen collection (procedure) (no date) [facility] (missing) (missing) (missing) Result panel 1469 Specimen collection (procedure) (no date) [facility] (missing) (missing) (missing) Result panel 1470 Specimen collection (procedure) (no date) [facility] (missing) (missing) (missing) Result panel 1471 Specimen collection (procedure) (no date) [facility] (missing) (missing) (missing) Result panel 1472 Specimen collection (procedure) (no date) [facility] (missing) (missing) (missing) Result panel 1473 Specimen collection (procedure) (no date) [facility] (missing) (missing) (missing) Result panel 1474 Specimen collection (procedure) (no date) [facility] (missing) (missing) (missing) Result panel 1475 Specimen collection (procedure) (no date) [facility] (missing) (missing) (missing) Result panel 1476 Specimen collection (procedure) (no date) [facility] (missing) (missing) (missing) Result panel 1477 Specimen collection (procedure) (no date) [facility] (missing) (missing) (missing) Result panel 1478 Specimen collection (procedure) (no date) [facility] (missing) (missing) (missing) Result panel 1479 Specimen collection (procedure) (no date) [facility] (missing) (missing) (missing) Result panel 1480 Specimen collection (procedure) (no date) [facility] (missing) (missing) (missing) Result panel 1481 Specimen collection (procedure) (no date) [facility] (missing) (missing) (missing) Result panel 1482 Specimen collection (procedure) (no date) [facility] (missing) (missing) (missing) Result panel 1483 Specimen collection (procedure) (no date) [facility] (missing) (missing) (missing) Result panel 1484 Specimen collection (procedure) (no date) [facility] (missing) (missing) (missing) Result panel 1485 Specimen collection (procedure) (no date) [facility] (missing) (missing) (missing) Result panel 1486 Specimen collection (procedure) (no date) [facility] (missing) (missing) (missing) Result panel 1487 Specimen collection (procedure) (no date) [facility] (missing) (missing) (missing) Result panel 1488 Specimen collection (procedure) (no date) [facility] (missing) (missing) (missing) Result panel 1489 Specimen collection (procedure) (no date) [facility] (missing) (missing) (missing) Result panel 1490 Specimen collection (procedure) (no date) [facility] (missing) (missing) (missing) Result panel 1491 Specimen collection (procedure) (no date) [facility] (missing) (missing) (missing) Result panel 1492 Specimen collection (procedure) (no date) [facility] (missing) (missing) (missing) Result panel 1493 Specimen collection (procedure) (no date) [facility] (missing) (missing) (missing) Result panel 1494 Specimen collection (procedure) (no date) [facility] (missing) (missing) (missing) Result panel 1495 Specimen collection (procedure) (no date) [facility] (missing) (missing) (missing) Result panel 1496 Specimen collection (procedure) (no date) [facility] (missing) (missing) (missing) Result panel 1497 Specimen collection (procedure) (no date) [facility] (missing) (missing) (missing) Result panel 1498 Specimen collection (procedure) (no date) [facility] (missing) (missing) (missing) Result panel 1499 Specimen collection (procedure) (no date) [facility] (missing) (missing) (missing) Result panel 1500 Specimen collection (procedure) (no date) [facility] (missing) (missing) (missing) Result panel 1501 Specimen collection (procedure) (no date) [facility] (missing) (missing) (missing) Result panel 1502 Specimen collection (procedure) (no date) [facility] (missing) (missing) (missing) Result panel 1503 Specimen collection (procedure) (no date) [facility] (missing) (missing) (missing) Result panel 1504 Specimen collection (procedure) (no date) [facility] (missing) (missing) (missing) Result panel 1505 Specimen collection (procedure) (no date) [facility] (missing) (missing) (missing) Result panel 1506 Specimen collection (procedure) (no date) [facility] (missing) (missing) (missing) Result panel 1507 Specimen collection (procedure) (no date) [facility] (missing) (missing) (missing) Result panel 1508 Specimen collection (procedure) (no date) [facility] (missing) (missing) (missing) Result panel 1509 Specimen collection (procedure) (no date) [facility] (missing) (missing) (missing) Result panel 1510 Specimen collection (procedure) (no date) [facility] (missing) (missing) (missing) Result panel 1511 Specimen collection (procedure) (no date) [facility] (missing) (missing) (missing) Result panel 1512 Specimen collection (procedure) (no date) [facility] (missing) (missing) (missing) Result panel 1513 Specimen collection (procedure) (no date) [facility] (missing) (missing) (missing) Result panel 1514 Specimen collection (procedure) (no date) [facility] (missing) (missing) (missing) Result panel 1515 Specimen collection (procedure) (no date) [facility] (missing) (missing) (missing) Result panel 1516 Specimen collection (procedure) (no date) [facility] (missing) (missing) (missing) Result panel 1517 Specimen collection (procedure) (no date) [facility] (missing) (missing) (missing) Result panel 1518 Specimen collection (procedure) (no date) [facility] (missing) (missing) (missing) Result panel 1519 Specimen collection (procedure) (no date) [facility] (missing) (missing) (missing) Result panel 1520 Specimen collection (procedure) (no date) [facility] (missing) (missing) (missing) Result panel 1521 Specimen collection (procedure) (no date) [facility] (missing) (missing) (missing) Result panel 1522 Specimen collection (procedure) (no date) [facility] (missing) (missing) (missing) Result panel 1523 Specimen collection (procedure) (no date) [facility] (missing) (missing) (missing) Result panel 1524 Specimen collection (procedure) (no date) [facility] (missing) (missing) (missing) Result panel 1525 Specimen collection (procedure) (no date) [facility] (missing) (missing) (missing) Result panel 1526 Specimen collection (procedure) (no date) [facility] (missing) (missing) (missing) Result panel 1527 Specimen collection (procedure) (no date) [facility] (missing) (missing) (missing) Result panel 1528 Specimen collection (procedure) (no date) [facility] (missing) (missing) (missing) Result panel 1529 Specimen collection (procedure) (no date) [facility] (missing) (missing) (missing) Result panel 1530 Specimen collection (procedure) (no date) [facility] (missing) (missing) (missing) Result panel 1531 Specimen collection (procedure) (no date) [facility] (missing) (missing) (missing) Result panel 1532 Specimen collection (procedure) (no date) [facility] (missing) (missing) (missing) Result panel 1533 Specimen collection (procedure) (no date) [facility] (missing) (missing) (missing) Result panel 1534 Specimen collection (procedure) (no date) [facility] (missing) (missing) (missing) Result panel 1535 Specimen collection (procedure) (no date) [facility] (missing) (missing) (missing) Result panel 1536 Specimen collection (procedure) (no date) [facility] (missing) (missing) (missing) Result panel 1537 Specimen collection (procedure) (no date) [facility] (missing) (missing) (missing) Result panel 1538 Specimen collection (procedure) (no date) [facility] (missing) (missing) (missing) Result panel 1539 Specimen collection (procedure) (no date) [facility] (missing) (missing) (missing) Result panel 1540 Specimen collection (procedure) (no date) [facility] (missing) (missing) (missing) Result panel 1541 Specimen collection (procedure) (no date) [facility] (missing) (missing) (missing) Result panel 1542 Specimen collection (procedure) (no date) [facility] (missing) (missing) (missing) Result panel 1543 Specimen collection (procedure) (no date) [facility] (missing) (missing) (missing) Result panel 1544 Specimen collection (procedure) (no date) [facility] (missing) (missing) (missing) Result panel 1545 Specimen collection (procedure) (no date) [facility] (missing) (missing) (missing) Result panel 1546 Specimen collection (procedure) (no date) [facility] (missing) (missing) (missing) Result panel 1547 Specimen collection (procedure) (no date) [facility] (missing) (missing) (missing) Result panel 1548 Specimen collection (procedure) (no date) [facility] (missing) (missing) (missing) Result panel 1549 Specimen collection (procedure) (no date) [facility] (missing) (missing) (missing) Result panel 1550 Specimen collection (procedure) (no date) [facility] (missing) (missing) (missing) Result panel 1551 Specimen collection (procedure) (no date) [facility] (missing) (missing) (missing) Result panel 1552 Specimen collection (procedure) (no date) [facility] (missing) (missing) (missing) Result panel 1553 Specimen collection (procedure) (no date) [facility] (missing) (missing) (missing) Result panel 1554 Specimen collection (procedure) (no date) [facility] (missing) (missing) (missing) Result panel 1555 Specimen collection (procedure) (no date) [facility] (missing) (missing) (missing) Result panel 1556 Specimen collection (procedure) (no date) [facility] (missing) (missing) (missing) Result panel 1557 Specimen collection (procedure) (no date) [facility] (missing) (missing) (missing) Result panel 1558 Specimen collection (procedure) (no date) [facility] (missing) (missing) (missing) Result panel 1559 Specimen collection (procedure) (no date) [facility] (missing) (missing) (missing) Result panel 1560 Specimen collection (procedure) (no date) [facility] (missing) (missing) (missing) Result panel 1561 Specimen collection (procedure) (no date) [facility] (missing) (missing) (missing) Result panel 1562 Specimen collection (procedure) (no date) [facility] (missing) (missing) (missing) Result panel 1563 Specimen collection (procedure) (no date) [facility] (missing) (missing) (missing) Result panel 1564 Specimen collection (procedure) (no date) [facility] (missing) (missing) (missing) Result panel 1565 Specimen collection (procedure) (no date) [facility] (missing) (missing) (missing) Result panel 1566 Specimen collection (procedure) (no date) [facility] (missing) (missing) (missing) Result panel 1567 Specimen collection (procedure) (no date) [facility] (missing) (missing) (missing) Result panel 1568 Specimen collection (procedure) (no date) [facility] (missing) (missing) (missing) Result panel 1569 Specimen collection (procedure) (no date) [facility] (missing) (missing) (missing) Result panel 1570 Specimen collection (procedure) (no date) [facility] (missing) (missing) (missing) Result panel 1571 Specimen collection (procedure) (no date) [facility] (missing) (missing) (missing) Result panel 1572 Specimen collection (procedure) (no date) [facility] (missing) (missing) (missing) Result panel 1573 Specimen collection (procedure) (no date) [facility] (missing) (missing) (missing) Result panel 1574 Specimen collection (procedure) (no date) [facility] (missing) (missing) (missing) Result panel 1575 Specimen collection (procedure) (no date) [facility] (missing) (missing) (missing) Result panel 1576 Specimen collection (procedure) (no date) [facility] (missing) (missing) (missing) Result panel 1577 Specimen collection (procedure) (no date) [facility] (missing) (missing) (missing) Result panel 1578 Specimen collection (procedure) (no date) [facility] (missing) (missing) (missing) Result panel 1579 Specimen collection (procedure) (no date) [facility] (missing) (missing) (missing) Result panel 1580 Specimen collection (procedure) (no date) [facility] (missing) (missing) (missing) Result panel 1581 Specimen collection (procedure) (no date) [facility] (missing) (missing) (missing) Result panel 1582 Specimen collection (procedure) (no date) [facility] (missing) (missing) (missing) Result panel 1583 Specimen collection (procedure) (no date) [facility] (missing) (missing) (missing) Result panel 1584 Specimen collection (procedure) (no date) [facility] (missing) (missing) (missing) Result panel 1585 Specimen collection (procedure) (no date) [facility] (missing) (missing) (missing) Result panel 1586 Specimen collection (procedure) (no date) [facility] (missing) (missing) (missing) Result panel 1587 Specimen collection (procedure) (no date) [facility] (missing) (missing) (missing) Result panel 1588 Specimen collection (procedure) (no date) [facility] (missing) (missing) (missing) Result panel 1589 Specimen collection (procedure) (no date) [facility] (missing) (missing) (missing) Result panel 1590 Specimen collection (procedure) (no date) [facility] (missing) (missing) (missing) Result panel 1591 Specimen collection (procedure) (no date) [facility] (missing) (missing) (missing) Result panel 1592 Specimen collection (procedure) (no date) [facility] (missing) (missing) (missing) Result panel 1593 Specimen collection (procedure) (no date) [facility] (missing) (missing) (missing) Result panel 1594 Specimen collection (procedure) (no date) [facility] (missing) (missing) (missing) Result panel 1595 Specimen collection (procedure) (no date) [facility] (missing) (missing) (missing) Result panel 1596 Specimen collection (procedure) (no date) [facility] (missing) (missing) (missing) Result panel 1597 Specimen collection (procedure) (no date) [facility] (missing) (missing) (missing) Result panel 1598 Specimen collection (procedure) (no date) [facility] (missing) (missing) (missing) Result panel 1599 Specimen collection (procedure) (no date) [facility] (missing) (missing) (missing) Result panel 1600 Specimen collection (procedure) (no date) [facility] (missing) (missing) (missing) Result panel 1601 Specimen collection (procedure) (no date) [facility] (missing) (missing) (missing) Result panel 1602 Specimen collection (procedure) (no date) [facility] (missing) (missing) (missing) Result panel 1603 Specimen collection (procedure) (no date) [facility] (missing) (missing) (missing) Result panel 1604 Specimen collection (procedure) (no date) [facility] (missing) (missing) (missing) Result panel 1605 Specimen collection (procedure) (no date) [facility] (missing) (missing) (missing) Result panel 1606 Specimen collection (procedure) (no date) [facility] (missing) (missing) (missing) Result panel 1607 Specimen collection (procedure) (no date) [facility] (missing) (missing) (missing) Result panel 1608 Specimen collection (procedure) (no date) [facility] (missing) (missing) (missing) Result panel 1609 Specimen collection (procedure) (no date) [facility] (missing) (missing) (missing) Result panel 1610 Specimen collection (procedure) (no date) [facility] (missing) (missing) (missing) Result panel 1611 Specimen collection (procedure) (no date) [facility] (missing) (missing) (missing) Result panel 1612 Specimen collection (procedure) (no date) [facility] (missing) (missing) (missing) Result panel 1613 Specimen collection (procedure) (no date) [facility] (missing) (missing) (missing) Result panel 1614 Specimen collection (procedure) (no date) [facility] (missing) (missing) (missing) Result panel 1615 Specimen collection (procedure) (no date) [facility] (missing) (missing) (missing) Result panel 1616 Specimen collection (procedure) (no date) [facility] (missing) (missing) (missing) Result panel 1617 Specimen collection (procedure) (no date) [facility] (missing) (missing) (missing) Result panel 1618 Specimen collection (procedure) (no date) [facility] (missing) (missing) (missing) Result panel 1619 Specimen collection (procedure) (no date) [facility] (missing) (missing) (missing) Result panel 1620 Specimen collection (procedure) (no date) [facility] (missing) (missing) (missing) Result panel 1621 Specimen collection (procedure) (no date) [facility] (missing) (missing) (missing) Result panel 1622 Specimen collection (procedure) (no date) [facility] (missing) (missing) (missing) Result panel 1623 Specimen collection (procedure) (no date) [facility] (missing) (missing) (missing) Result panel 1624 Specimen collection (procedure) (no date) [facility] (missing) (missing) (missing) Result panel 1625 Specimen collection (procedure) (no date) [facility] (missing) (missing) (missing) Result panel 1626 Specimen collection (procedure) (no date) [facility] (missing) (missing) (missing) Result panel 1627 Specimen collection (procedure) (no date) [facility] (missing) (missing) (missing) Result panel 1628 Specimen collection (procedure) (no date) [facility] (missing) (missing) (missing) Result panel 1629 Specimen collection (procedure) (no date) [facility] (missing) (missing) (missing) Result panel 1630 Specimen collection (procedure) (no date) [facility] (missing) (missing) (missing) Result panel 1631 Specimen collection (procedure) (no date) [facility] (missing) (missing) (missing) Result panel 1632 Specimen collection (procedure) (no date) [facility] (missing) (missing) (missing) Result panel 1633 Specimen collection (procedure) (no date) [facility] (missing) (missing) (missing) Result panel 1634 Specimen collection (procedure) (no date) [facility] (missing) (missing) (missing) Result panel 1635 Specimen collection (procedure) (no date) [facility] (missing) (missing) (missing) Result panel 1636 Specimen collection (procedure) (no date) [facility] (missing) (missing) (missing) Result panel 1637 Specimen collection (procedure) (no date) [facility] (missing) (missing) (missing) Result panel 1638 Specimen collection (procedure) (no date) [facility] (missing) (missing) (missing) Result panel 1639 Specimen collection (procedure) (no date) [facility] (missing) (missing) (missing) Result panel 1640 Specimen collection (procedure) (no date) [facility] (missing) (missing) (missing) Result panel 1641 Specimen collection (procedure) (no date) [facility] (missing) (missing) (missing) Result panel 1642 Specimen collection (procedure) (no date) [facility] (missing) (missing) (missing) Result panel 1643 Specimen collection (procedure) (no date) [facility] (missing) (missing) (missing) Result panel 1644 Specimen collection (procedure) (no date) [facility] (missing) (missing) (missing) Result panel 1645 Specimen collection (procedure) (no date) [facility] (missing) (missing) (missing) Result panel 1646 Specimen collection (procedure) (no date) [facility] (missing) (missing) (missing) Result panel 1647 Specimen collection (procedure) (no date) [facility] (missing) (missing) (missing) Result panel 1648 Specimen collection (procedure) (no date) [facility] (missing) (missing) (missing) Result panel 1649 Specimen collection (procedure) (no date) [facility] (missing) (missing) (missing) Result panel 1650 Specimen collection (procedure) (no date) [facility] (missing) (missing) (missing) Result panel 1651 Specimen collection (procedure) (no date) [facility] (missing) (missing) (missing) Result panel 1652 Specimen collection (procedure) (no date) [facility] (missing) (missing) (missing) Result panel 1653 Specimen collection (procedure) (no date) [facility] (missing) (missing) (missing) Result panel 1654 Specimen collection (procedure) (no date) [facility] (missing) (missing) (missing) Result panel 1655 Specimen collection (procedure) (no date) [facility] (missing) (missing) (missing) Result panel 1656 Specimen collection (procedure) (no date) [facility] (missing) (missing) (missing) Result panel 1657 Specimen collection (procedure) (no date) [facility] (missing) (missing) (missing) Result panel 1658 Specimen collection (procedure) (no date) [facility] (missing) (missing) (missing) Result panel 1659 Specimen collection (procedure) (no date) [facility] (missing) (missing) (missing) Result panel 1660 Specimen collection (procedure) (no date) [facility] (missing) (missing) (missing) Result panel 1661 Specimen collection (procedure) (no date) [facility] (missing) (missing) (missing) Result panel 1662 Specimen collection (procedure) (no date) [facility] (missing) (missing) (missing) Result panel 1663 Specimen collection (procedure) (no date) [facility] (missing) (missing) (missing) Result panel 1664 Specimen collection (procedure) (no date) [facility] (missing) (missing) (missing) Result panel 1665 Specimen collection (procedure) (no date) [facility] (missing) (missing) (missing) Result panel 1666 Specimen collection (procedure) (no date) [facility] (missing) (missing) (missing) Result panel 1667 Specimen collection (procedure) (no date) [facility] (missing) (missing) (missing) Result panel 1668 Specimen collection (procedure) (no date) [facility] (missing) (missing) (missing) Result panel 1669 Specimen collection (procedure) (no date) [facility] (missing) (missing) (missing) Result panel 1670 Specimen collection (procedure) (no date) [facility] (missing) (missing) (missing) Result panel 1671 Specimen collection (procedure) (no date) [facility] (missing) (missing) (missing) Result panel 1672 Specimen collection (procedure) (no date) [facility] (missing) (missing) (missing) Result panel 1673 Specimen collection (procedure) (no date) [facility] (missing) (missing) (missing) Result panel 1674 Specimen collection (procedure) (no date) [facility] (missing) (missing) (missing) Result panel 1675 Specimen collection (procedure) (no date) [facility] (missing) (missing) (missing) Result panel 1676 Specimen collection (procedure) (no date) [facility] (missing) (missing) (missing) Result panel 1677 Specimen collection (procedure) (no date) [facility] (missing) (missing) (missing) Result panel 1678 Specimen collection (procedure) (no date) [facility] (missing) (missing) (missing) Result panel 1679 Specimen collection (procedure) (no date) [facility] (missing) (missing) (missing) Result panel 1680 Specimen collection (procedure) (no date) [facility] (missing) (missing) (missing) Result panel 1681 Specimen collection (procedure) (no date) [facility] (missing) (missing) (missing) Result panel 1682 Specimen collection (procedure) (no date) [facility] (missing) (missing) (missing) Result panel 1683 Specimen collection (procedure) (no date) [facility] (missing) (missing) (missing) Result panel 1684 Specimen collection (procedure) (no date) [facility] (missing) (missing) (missing) Result panel 1685 Specimen collection (procedure) (no date) [facility] (missing) (missing) (missing) Result panel 1686 Specimen collection (procedure) (no date) [facility] (missing) (missing) (missing) Result panel 1687 Specimen collection (procedure) (no date) [facility] (missing) (missing) (missing) Result panel 1688 Specimen collection (procedure) (no date) [facility] (missing) (missing) (missing) Result panel 1689 Specimen collection (procedure) (no date) [facility] (missing) (missing) (missing) Result panel 1690 Specimen collection (procedure) (no date) [facility] (missing) (missing) (missing) Result panel 1691 Specimen collection (procedure) (no date) [facility] (missing) (missing) (missing) Result panel 1692 Specimen collection (procedure) (no date) [facility] (missing) (missing) (missing) Result panel 1693 Specimen collection (procedure) (no date) [facility] (missing) (missing) (missing) Result panel 1694 Specimen collection (procedure) (no date) [facility] (missing) (missing) (missing) Result panel 1695 Specimen collection (procedure) (no date) [facility] (missing) (missing) (missing) Result panel 1696 Specimen collection (procedure) (no date) [facility] (missing) (missing) (missing) Result panel 1697 Specimen collection (procedure) (no date) [facility] (missing) (missing) (missing) Result panel 1698 Specimen collection (procedure) (no date) [facility] (missing) (missing) (missing) Result panel 1699 Specimen collection (procedure) (no date) [facility] (missing) (missing) (missing) Result panel 1700 Specimen collection (procedure) (no date) [facility] (missing) (missing) (missing) Result panel 1701 Specimen collection (procedure) (no date) [facility] (missing) (missing) (missing) Result panel 1702 Specimen collection (procedure) (no date) [facility] (missing) (missing) (missing) Result panel 1703 Specimen collection (procedure) (no date) [facility] (missing) (missing) (missing) Result panel 1704 Specimen collection (procedure) (no date) [facility] (missing) (missing) (missing) Result panel 1705 Specimen collection (procedure) (no date) [facility] (missing) (missing) (missing) Result panel 1706 Specimen collection (procedure) (no date) [facility] (missing) (missing) (missing) Result panel 1707 Specimen collection (procedure) (no date) [facility] (missing) (missing) (missing) Result panel 1708 Specimen collection (procedure) (no date) [facility] (missing) (missing) (missing) Result panel 1709 Specimen collection (procedure) (no date) [facility] (missing) (missing) (missing) Result panel 1710 Specimen collection (procedure) (no date) [facility] (missing) (missing) (missing) Result panel 1711 Specimen collection (procedure) (no date) [facility] (missing) (missing) (missing) Result panel 1712 Specimen collection (procedure) (no date) [facility] (missing) (missing) (missing) Result panel 1713 Specimen collection (procedure) (no date) [facility] (missing) (missing) (missing) Result panel 1714 Specimen collection (procedure) (no date) [facility] (missing) (missing) (missing) Result panel 1715 Specimen collection (procedure) (no date) [facility] (missing) (missing) (missing) Result panel 1716 Specimen collection (procedure) (no date) [facility] (missing) (missing) (missing) Result panel 1717 Specimen collection (procedure) (no date) [facility] (missing) (missing) (missing) Result panel 1718 Specimen collection (procedure) (no date) [facility] (missing) (missing) (missing) Result panel 1719 Specimen collection (procedure) (no date) [facility] (missing) (missing) (missing) Result panel 1720 Specimen collection (procedure) (no date) [facility] (missing) (missing) (missing) Result panel 1721 Specimen collection (procedure) (no date) [facility] (missing) (missing) (missing) Result panel 1722 Specimen collection (procedure) (no date) [facility] (missing) (missing) (missing) Result panel 1723 Specimen collection (procedure) (no date) [facility] (missing) (missing) (missing) Result panel 1724 Specimen collection (procedure) (no date) [facility] (missing) (missing) (missing) Result panel 1725 Specimen collection (procedure) (no date) [facility] (missing) (missing) (missing) Result panel 1726 Specimen collection (procedure) (no date) [facility] (missing) (missing) (missing) Result panel 1727 Specimen collection (procedure) (no date) [facility] (missing) (missing) (missing) Result panel 1728 Specimen collection (procedure) (no date) [facility] (missing) (missing) (missing) Result panel 1729 Specimen collection (procedure) (no date) [facility] (missing) (missing) (missing) Result panel 1730 Specimen collection (procedure) (no date) [facility] (missing) (missing) (missing) Result panel 1731 Specimen collection (procedure) (no date) [facility] (missing) (missing) (missing) Result panel 1732 Specimen collection (procedure) (no date) [facility] (missing) (missing) (missing) Result panel 1733 Specimen collection (procedure) (no date) [facility] (missing) (missing) (missing) Result panel 1734 Specimen collection (procedure) (no date) [facility] (missing) (missing) (missing) Result panel 1735 Specimen collection (procedure) (no date) [facility] (missing) (missing) (missing) Result panel 1736 Specimen collection (procedure) (no date) [facility] (missing) (missing) (missing) Result panel 1737 Specimen collection (procedure) (no date) [facility] (missing) (missing) (missing) Result panel 1738 Specimen collection (procedure) (no date) [facility] (missing) (missing) (missing) Result panel 1739 Specimen collection (procedure) (no date) [facility] (missing) (missing) (missing) Result panel 1740 Specimen collection (procedure) (no date) [facility] (missing) (missing) (missing) Result panel 1741 Specimen collection (procedure) (no date) [facility] (missing) (missing) (missing) Result panel 1742 Specimen collection (procedure) (no date) [facility] (missing) (missing) (missing) Result panel 1743 Specimen collection (procedure) (no date) [facility] (missing) (missing) (missing) Result panel 1744 Specimen collection (procedure) (no date) [facility] (missing) (missing) (missing) Result panel 1745 Specimen collection (procedure) (no date) [facility] (missing) (missing) (missing) Result panel 1746 Specimen collection (procedure) (no date) [facility] (missing) (missing) (missing) Result panel 1747 Specimen collection (procedure) (no date) [facility] (missing) (missing) (missing) Result panel 1748 Specimen collection (procedure) (no date) [facility] (missing) (missing) (missing) Result panel 1749 Specimen collection (procedure) (no date) [facility] (missing) (missing) (missing) Result panel 1750 Specimen collection (procedure) (no date) [facility] (missing) (missing) (missing) Result panel 1751 Specimen collection (procedure) (no date) [facility] (missing) (missing) (missing) Result panel 1752 Specimen collection (procedure) (no date) [facility] (missing) (missing) (missing) Result panel 1753 Specimen collection (procedure) (no date) [facility] (missing) (missing) (missing) Result panel 1754 Specimen collection (procedure) (no date) [facility] (missing) (missing) (missing) Result panel 1755 Specimen collection (procedure) (no date) [facility] (missing) (missing) (missing) Result panel 1756 Specimen collection (procedure) (no date) [facility] (missing) (missing) (missing) Result panel 1757 Specimen collection (procedure) (no date) [facility] (missing) (missing) (missing) Result panel 1758 Specimen collection (procedure) (no date) [facility] (missing) (missing) (missing) Result panel 1759 Specimen collection (procedure) (no date) [facility] (missing) (missing) (missing) Result panel 1760 Specimen collection (procedure) (no date) [facility] (missing) (missing) (missing) Result panel 1761 Specimen collection (procedure) (no date) [facility] (missing) (missing) (missing) Result panel 1762 Specimen collection (procedure) (no date) [facility] (missing) (missing) (missing) Result panel 1763 Specimen collection (procedure) (no date) [facility] (missing) (missing) (missing) Result panel 1764 Specimen collection (procedure) (no date) [facility] (missing) (missing) (missing) Result panel 1765 Specimen collection (procedure) (no date) [facility] (missing) (missing) (missing) Result panel 1766 Specimen collection (procedure) (no date) [facility] (missing) (missing) (missing) Result panel 1767 Specimen collection (procedure) (no date) [facility] (missing) (missing) (missing) Result panel 1768 Specimen collection (procedure) (no date) [facility] (missing) (missing) (missing) Result panel 1769 Specimen collection (procedure) (no date) [facility] (missing) (missing) (missing) Result panel 1770 Specimen collection (procedure) (no date) [facility] (missing) (missing) (missing) Result panel 1771 Specimen collection (procedure) (no date) [facility] (missing) (missing) (missing) Result panel 1772 Specimen collection (procedure) (no date) [facility] (missing) (missing) (missing) Result panel 1773 Specimen collection (procedure) (no date) [facility] (missing) (missing) (missing) Result panel 1774 Specimen collection (procedure) (no date) [facility] (missing) (missing) (missing) Result panel 1775 Specimen collection (procedure) (no date) [facility] (missing) (missing) (missing) Result panel 1776 Specimen collection (procedure) (no date) [facility] (missing) (missing) (missing) Result panel 1777 Specimen collection (procedure) (no date) [facility] (missing) (missing) (missing) Result panel 1778 Specimen collection (procedure) (no date) [facility] (missing) (missing) (missing) Result panel 1779 Specimen collection (procedure) (no date) [facility] (missing) (missing) (missing) Result panel 1780 Specimen collection (procedure) (no date) [facility] (missing) (missing) (missing) Result panel 1781 Specimen collection (procedure) (no date) [facility] (missing) (missing) (missing) Result panel 1782 Specimen collection (procedure) (no date) [facility] (missing) (missing) (missing) Result panel 1783 Specimen collection (procedure) (no date) [facility] (missing) (missing) (missing) Result panel 1784 Specimen collection (procedure) (no date) [facility] (missing) (missing) (missing) Result panel 1785 Specimen collection (procedure) (no date) [facility] (missing) (missing) (missing) Result panel 1786 Specimen collection (procedure) (no date) [facility] (missing) (missing) (missing) Result panel 1787 Specimen collection (procedure) (no date) [facility] (missing) (missing) (missing) Result panel 1788 Specimen collection (procedure) (no date) [facility] (missing) (missing) (missing) Result panel 1789 Specimen collection (procedure) (no date) [facility] (missing) (missing) (missing) Result panel 1790 Specimen collection (procedure) (no date) [facility] (missing) (missing) (missing) Result panel 1791 Specimen collection (procedure) (no date) [facility] (missing) (missing) (missing) Result panel 1792 Specimen collection (procedure) (no date) [facility] (missing) (missing) (missing) Result panel 1793 Specimen collection (procedure) (no date) [facility] (missing) (missing) (missing) Result panel 1794 Specimen collection (procedure) (no date) [facility] (missing) (missing) (missing) Result panel 1795 Specimen collection (procedure) (no date) [facility] (missing) (missing) (missing) Result panel 1796 Specimen collection (procedure) (no date) [facility] (missing) (missing) (missing) Result panel 1797 Specimen collection (procedure) (no date) [facility] (missing) (missing) (missing) Result panel 1798 Specimen collection (procedure) (no date) [facility] (missing) (missing) (missing) Result panel 1799 Specimen collection (procedure) (no date) [facility] (missing) (missing) (missing) Result panel 1800 Specimen collection (procedure) (no date) [facility] (missing) (missing) (missing) Result panel 1801 Specimen collection (procedure) (no date) [facility] (missing) (missing) (missing) Result panel 1802 Specimen collection (procedure) (no date) [facility] (missing) (missing) (missing) Result panel 1803 Specimen collection (procedure) (no date) [facility] (missing) (missing) (missing) Result panel 1804 Specimen collection (procedure) (no date) [facility] (missing) (missing) (missing) Result panel 1805 Specimen collection (procedure) (no date) [facility] (missing) (missing) (missing) Result panel 1806 Specimen collection (procedure) (no date) [facility] (missing) (missing) (missing) Result panel 1807 Specimen collection (procedure) (no date) [facility] (missing) (missing) (missing) Result panel 1808 Specimen collection (procedure) (no date) [facility] (missing) (missing) (missing) Result panel 1809 Specimen collection (procedure) (no date) [facility] (missing) (missing) (missing) Result panel 1810 Specimen collection (procedure) (no date) [facility] (missing) (missing) (missing) Result panel 1811 Specimen collection (procedure) (no date) [facility] (missing) (missing) (missing) Result panel 1812 Specimen collection (procedure) (no date) [facility] (missing) (missing) (missing) Result panel 1813 Specimen collection (procedure) (no date) [facility] (missing) (missing) (missing) Result panel 1814 Specimen collection (procedure) (no date) [facility] (missing) (missing) (missing) Result panel 1815 Specimen collection (procedure) (no date) [facility] (missing) (missing) (missing) Result panel 1816 Specimen collection (procedure) (no date) [facility] (missing) (missing) (missing) Result panel 1817 Specimen collection (procedure) (no date) [facility] (missing) (missing) (missing) Result panel 1818 Specimen collection (procedure) (no date) [facility] (missing) (missing) (missing) Result panel 1819 Specimen collection (procedure) (no date) [facility] (missing) (missing) (missing) Result panel 1820 Specimen collection (procedure) (no date) [facility] (missing) (missing) (missing) Result panel 1821 Specimen collection (procedure) (no date) [facility] (missing) (missing) (missing) Result panel 1822 Specimen collection (procedure) (no date) [facility] (missing) (missing) (missing) Result panel 1823 Specimen collection (procedure) (no date) [facility] (missing) (missing) (missing) Result panel 1824 Specimen collection (procedure) (no date) [facility] (missing) (missing) (missing) Result panel 1825 Specimen collection (procedure) (no date) [facility] (missing) (missing) (missing) Result panel 1826 Specimen collection (procedure) (no date) [facility] (missing) (missing) (missing) Result panel 1827 Specimen collection (procedure) (no date) [facility] (missing) (missing) (missing) Result panel 1828 Specimen collection (procedure) (no date) [facility] (missing) (missing) (missing) Result panel 1829 Specimen collection (procedure) (no date) [facility] (missing) (missing) (missing) Result panel 1830 Specimen collection (procedure) (no date) [facility] (missing) (missing) (missing) Result panel 1831 Specimen collection (procedure) (no date) [facility] (missing) (missing) (missing) Result panel 1832 Specimen collection (procedure) (no date) [facility] (missing) (missing) (missing) Result panel 1833 Specimen collection (procedure) (no date) [facility] (missing) (missing) (missing) Result panel 1834 Specimen collection (procedure) (no date) [facility] (missing) (missing) (missing) Result panel 1835 Specimen collection (procedure) (no date) [facility] (missing) (missing) (missing) Result panel 1836 Specimen collection (procedure) (no date) [facility] (missing) (missing) (missing) Result panel 1837 Specimen collection (procedure) (no date) [facility] (missing) (missing) (missing) Result panel 1838 Specimen collection (procedure) (no date) [facility] (missing) (missing) (missing) Result panel 1839 Specimen collection (procedure) (no date) [facility] (missing) (missing) (missing) Result panel 1840 Specimen collection (procedure) (no date) [facility] (missing) (missing) (missing) Result panel 1841 Specimen collection (procedure) (no date) [facility] (missing) (missing) (missing) Result panel 1842 Specimen collection (procedure) (no date) [facility] (missing) (missing) (missing) Result panel 1843 Specimen collection (procedure) (no date) [facility] (missing) (missing) (missing) Result panel 1844 Specimen collection (procedure) (no date) [facility] (missing) (missing) (missing) Result panel 1845 Specimen collection (procedure) (no date) [facility] (missing) (missing) (missing) Result panel 1846 Specimen collection (procedure) (no date) [facility] (missing) (missing) (missing) Result panel 1847 Specimen collection (procedure) (no date) [facility] (missing) (missing) (missing) Result panel 1848 Specimen collection (procedure) (no date) [facility] (missing) (missing) (missing) Result panel 1849 Specimen collection (procedure) (no date) [facility] (missing) (missing) (missing) Result panel 1850 Specimen collection (procedure) (no date) [facility] (missing) (missing) (missing) Result panel 1851 Specimen collection (procedure) (no date) [facility] (missing) (missing) (missing) Result panel 1852 Specimen collection (procedure) (no date) [facility] (missing) (missing) (missing) Result panel 1853 Specimen collection (procedure) (no date) [facility] (missing) (missing) (missing) Result panel 1854 Specimen collection (procedure) (no date) [facility] (missing) (missing) (missing) Result panel 1855 Specimen collection (procedure) (no date) [facility] (missing) (missing) (missing) Result panel 1856 Specimen collection (procedure) (no date) [facility] (missing) (missing) (missing) Result panel 1857 Specimen collection (procedure) (no date) [facility] (missing) (missing) (missing) Result panel 1858 Specimen collection (procedure) (no date) [facility] (missing) (missing) (missing) Result panel 1859 Specimen collection (procedure) (no date) [facility] (missing) (missing) (missing) Result panel 1860 Specimen collection (procedure) (no date) [facility] (missing) (missing) (missing) Result panel 1861 Specimen collection (procedure) (no date) [facility] (missing) (missing) (missing) Result panel 1862 Specimen collection (procedure) (no date) [facility] (missing) (missing) (missing) Result panel 1863 Specimen collection (procedure) (no date) [facility] (missing) (missing) (missing) Result panel 1864 Specimen collection (procedure) (no date) [facility] (missing) (missing) (missing) Result panel 1865 Specimen collection (procedure) (no date) [facility] (missing) (missing) (missing) Result panel 1866 Specimen collection (procedure) (no date) [facility] (missing) (missing) (missing) Result panel 1867 Specimen collection (procedure) (no date) [facility] (missing) (missing) (missing) Result panel 1868 Specimen collection (procedure) (no date) [facility] (missing) (missing) (missing) Result panel 1869 Specimen collection (procedure) (no date) [facility] (missing) (missing) (missing) Result panel 1870 Specimen collection (procedure) (no date) [facility] (missing) (missing) (missing) Result panel 1871 Specimen collection (procedure) (no date) [facility] (missing) (missing) (missing) Result panel 1872 Specimen collection (procedure) (no date) [facility] (missing) (missing) (missing) Result panel 1873 Specimen collection (procedure) (no date) [facility] (missing) (missing) (missing) Result panel 1874 Specimen collection (procedure) (no date) [facility] (missing) (missing) (missing) Result panel 1875 Specimen collection (procedure) (no date) [facility] (missing) (missing) (missing) Result panel 1876 Specimen collection (procedure) (no date) [facility] (missing) (missing) (missing) Result panel 1877 Specimen collection (procedure) (no date) [facility] (missing) (missing) (missing) Result panel 1878 Specimen collection (procedure) (no date) [facility] (missing) (missing) (missing) Result panel 1879 Specimen collection (procedure) (no date) [facility] (missing) (missing) (missing) Result panel 1880 Specimen collection (procedure) (no date) [facility] (missing) (missing) (missing) Result panel 1881 Specimen collection (procedure) (no date) [facility] (missing) (missing) (missing) Result panel 1882 Specimen collection (procedure) (no date) [facility] (missing) (missing) (missing) Result panel 1883 Specimen collection (procedure) (no date) [facility] (missing) (missing) (missing) Result panel 1884 Specimen collection (procedure) (no date) [facility] (missing) (missing) (missing) Result panel 1885 Specimen collection (procedure) (no date) [facility] (missing) (missing) (missing) Result panel 1886 Specimen collection (procedure) (no date) [facility] (missing) (missing) (missing) Result panel 1887 Specimen collection (procedure) (no date) [facility] (missing) (missing) (missing) Result panel 1888 Specimen collection (procedure) (no date) [facility] (missing) (missing) (missing) Result panel 1889 Specimen collection (procedure) (no date) [facility] (missing) (missing) (missing) Result panel 1890 Specimen collection (procedure) (no date) [facility] (missing) (missing) (missing) Result panel 1891 Specimen collection (procedure) (no date) [facility] (missing) (missing) (missing) Result panel 1892 Specimen collection (procedure) (no date) [facility] (missing) (missing) (missing) Result panel 1893 Specimen collection (procedure) (no date) [facility] (missing) (missing) (missing) Result panel 1894 Specimen collection (procedure) (no date) [facility] (missing) (missing) (missing) Result panel 1895 Specimen collection (procedure) (no date) [facility] (missing) (missing) (missing) Result panel 1896 Specimen collection (procedure) (no date) [facility] (missing) (missing) (missing) Result panel 1897 Specimen collection (procedure) (no date) [facility] (missing) (missing) (missing) Result panel 1898 Specimen collection (procedure) (no date) [facility] (missing) (missing) (missing) Result panel 1899 Specimen collection (procedure) (no date) [facility] (missing) (missing) (missing) Result panel 1900 Specimen collection (procedure) (no date) [facility] (missing) (missing) (missing) Result panel 1901 Specimen collection (procedure) (no date) [facility] (missing) (missing) (missing) Result panel 1902 Specimen collection (procedure) (no date) [facility] (missing) (missing) (missing) Result panel 1903 Specimen collection (procedure) (no date) [facility] (missing) (missing) (missing) Result panel 1904 Specimen collection (procedure) (no date) [facility] (missing) (missing) (missing) Result panel 1905 Specimen collection (procedure) (no date) [facility] (missing) (missing) (missing) Result panel 1906 Specimen collection (procedure) (no date) [facility] (missing) (missing) (missing) Result panel 1907 Specimen collection (procedure) (no date) [facility] (missing) (missing) (missing) Result panel 1908 Specimen collection (procedure) (no date) [facility] (missing) (missing) (missing) Result panel 1909 Specimen collection (procedure) (no date) [facility] (missing) (missing) (missing) Result panel 1910 Specimen collection (procedure) (no date) [facility] (missing) (missing) (missing) Result panel 1911 Specimen collection (procedure) (no date) [facility] (missing) (missing) (missing) Result panel 1912 Specimen collection (procedure) (no date) [facility] (missing) (missing) (missing) Result panel 1913 Specimen collection (procedure) (no date) [facility] (missing) (missing) (missing) Result panel 1914 Specimen collection (procedure) (no date) [facility] (missing) (missing) (missing) Result panel 1915 Specimen collection (procedure) (no date) [facility] (missing) (missing) (missing) Result panel 1916 Specimen collection (procedure) (no date) [facility] (missing) (missing) (missing) Result panel 1917 Specimen collection (procedure) (no date) [facility] (missing) (missing) (missing) Result panel 1918 Specimen collection (procedure) (no date) [facility] (missing) (missing) (missing) Result panel 1919 Specimen collection (procedure) (no date) [facility] (missing) (missing) (missing) Result panel 1920 Specimen collection (procedure) (no date) [facility] (missing) (missing) (missing) Result panel 1921 Specimen collection (procedure) (no date) [facility] (missing) (missing) (missing) Result panel 1922 Specimen collection (procedure) (no date) [facility] (missing) (missing) (missing) Result panel 1923 Specimen collection (procedure) (no date) [facility] (missing) (missing) (missing) Result panel 1924 Specimen collection (procedure) (no date) [facility] (missing) (missing) (missing) Result panel 1925 Specimen collection (procedure) (no date) [facility] (missing) (missing) (missing) Result panel 1926 Specimen collection (procedure) (no date) [facility] (missing) (missing) (missing) Result panel 1927 Specimen collection (procedure) (no date) [facility] (missing) (missing) (missing) Result panel 1928 Specimen collection (procedure) (no date) [facility] (missing) (missing) (missing) Result panel 1929 Specimen collection (procedure) (no date) [facility] (missing) (missing) (missing) Result panel 1930 Specimen collection (procedure) (no date) [facility] (missing) (missing) (missing) Result panel 1931 Specimen collection (procedure) (no date) [facility] (missing) (missing) (missing) Result panel 1932 Specimen collection (procedure) (no date) [facility] (missing) (missing) (missing) Result panel 1933 Specimen collection (procedure) (no date) [facility] (missing) (missing) (missing) Result panel 1934 Specimen collection (procedure) (no date) [facility] (missing) (missing) (missing) Result panel 1935 Specimen collection (procedure) (no date) [facility] (missing) (missing) (missing) Result panel 1936 Specimen collection (procedure) (no date) [facility] (missing) (missing) (missing) Result panel 1937 Specimen collection (procedure) (no date) [facility] (missing) (missing) (missing) Result panel 1938 Specimen collection (procedure) (no date) [facility] (missing) (missing) (missing) Result panel 1939 Specimen collection (procedure) (no date) [facility] (missing) (missing) (missing) Result panel 1940 Specimen collection (procedure) (no date) [facility] (missing) (missing) (missing) Result panel 1941 Specimen collection (procedure) (no date) [facility] (missing) (missing) (missing) Result panel 1942 Specimen collection (procedure) (no date) [facility] (missing) (missing) (missing) Result panel 1943 Specimen collection (procedure) (no date) [facility] (missing) (missing) (missing) Result panel 1944 Specimen collection (procedure) (no date) [facility] (missing) (missing) (missing) Result panel 1945 Specimen collection (procedure) (no date) [facility] (missing) (missing) (missing) Result panel 1946 Specimen collection (procedure) (no date) [facility] (missing) (missing) (missing) Result panel 194 Specimen collection (procedure) (no date) [facility] (missing) (missing) (missing) Result panel 194 Specimen collection (procedure) (no date) [facility] (missing) (missing) (missing) Result panel 194 Specimen collection (procedure) (no date) [facility] (missing) (missing) (missing) Result panel 1950 Specimen collection (procedure) (no date) [facility] (missing) (missing) (missing) Result panel 195 Specimen collection (procedure) (no date) [facility] (missing) (missing) (missing) Result panel 195 Specimen collection (procedure) (no date) [facility] (missing) (missing) (missing) Result panel 195 Specimen collection (procedure) (no date) [facility] (missing) (missing) (missing) Result panel 195 Specimen collection (procedure) (no date) [facility] (missing) (missing) (missing) Result panel 195 Specimen collection (procedure) (no date) [facility] (missing) (missing) (missing) Result panel 195 Specimen collection (procedure) (no date) [facility] (missing) (missing) (missing) Result panel 195 Specimen collection (procedure) (no date) [facility] (missing) (missing) (missing) Result panel 195 Specimen collection (procedure) (no date) [facility] (missing) (missing) (missing) Result panel 195 Specimen collection (procedure) (no date) [facility] (missing) (missing) (missing) Result panel 1960 Specimen collection (procedure) (no date) [facility] (missing) (missing) (missing) Result panel 1961 Specimen collection (procedure) (no date) [facility] (missing) (missing) (missing) Result panel 1962 Specimen collection (procedure) (no date) [facility] (missing) (missing) (missing) Result panel 1963 Specimen collection (procedure) (no date) [facility] (missing) (missing) (missing) Result panel 1964 Specimen collection (procedure) (no date) [facility] (missing) (missing) (missing) Result panel 1965 Specimen collection (procedure) (no date) [facility] (missing) (missing) (missing) Result panel 1966 Specimen collection (procedure) (no date) [facility] (missing) (missing) (missing) Result panel 1967 Specimen collection (procedure) (no date) [facility] (missing) (missing) (missing) Result panel 1968 Specimen collection (procedure) (no date) [facility] (missing) (missing) (missing) Result panel 1969 Specimen collection (procedure) (no date) [facility] (missing) (missing) (missing) Result panel 1970 Specimen collection (procedure) (no date) [facility] (missing) (missing) (missing) Result panel 1971 Specimen collection (procedure) (no date) [facility] (missing) (missing) (missing) Result panel 1972 Specimen collection (procedure) (no date) [facility] (missing) (missing) (missing) Result panel 1973 Specimen collection (procedure) (no date) [facility] (missing) (missing) (missing) Result panel 1974 Specimen collection (procedure) (no date) [facility] (missing) (missing) (missing) Result panel 1975 Specimen collection (procedure) (no date) [facility] (missing) (missing) (missing) Result panel 1976 Specimen collection (procedure) (no date) [facility] (missing) (missing) (missing) Result panel 1977 Specimen collection (procedure) (no date) [facility] (missing) (missing) (missing) Result panel 1978 Specimen collection (procedure) (no date) [facility] (missing) (missing) (missing) Result panel 1979 Specimen collection (procedure) (no date) [facility] (missing) (missing) (missing) Result panel 1980 Specimen collection (procedure) (no date) [facility] (missing) (missing) (missing) Result panel 1981 Specimen collection (procedure) (no date) [facility] (missing) (missing) (missing) Result panel 1982 Specimen collection (procedure) (no date) [facility] (missing) (missing) (missing) Result panel 1983 Specimen collection (procedure) (no date) [facility] (missing) (missing) (missing) Result panel 1984 Specimen collection (procedure) (no date) [facility] (missing) (missing) (missing) Result panel 1985 Specimen collection (procedure) (no date) [facility] (missing) (missing) (missing) Result panel 1986 Specimen collection (procedure) (no date) [facility] (missing) (missing) (missing) Result panel 1987 Specimen collection (procedure) (no date) [facility] (missing) (missing) (missing) Result panel 1988 Specimen collection (procedure) (no date) [facility] (missing) (missing) (missing) Result panel 1989 Specimen collection (procedure) (no date) [facility] (missing) (missing) (missing) Result panel 1990 Specimen collection (procedure) (no date) [facility] (missing) (missing) (missing) Result panel 1991 Specimen collection (procedure) (no date) [facility] (missing) (missing) (missing) Result panel 1992 Specimen collection (procedure) (no date) [facility] (missing) (missing) (missing) Result panel 1993 Specimen collection (procedure) (no date) [facility] (missing) (missing) (missing) Result panel 1994 Specimen collection (procedure) (no date) [facility] (missing) (missing) (missing) Result panel 1995 Specimen collection (procedure) (no date) [facility] (missing) (missing) (missing) Result panel 1996 Specimen collection (procedure) (no date) [facility] (missing) (missing) (missing) Result panel 1997 Specimen collection (procedure) (no date) [facility] (missing) (missing) (missing) Result panel 1998 Specimen collection (procedure) (no date) [facility] (missing) (missing) (missing) Result panel 1998 Specimen collection (procedure) (no date) [facility] (missing) (missing) (missing) Result panel 1999 Specimen collection (procedure) (no date) [facility] (missing) (missing) (missing) Result panel 2000 Specimen collection (procedure) (no date) [facility] (missing) (missing) (missing) Result panel 2002 Specimen collection (procedure) (no date) [facility] (missing) (missing) (missing) Result panel 2003 Specimen collection (procedure) (no date) [facility] (missing) (missing) (missing) Result panel 2004 Specimen collection (procedure) (no date) [facility] (missing) (missing) (missing) Result panel 2005 Specimen collection (procedure) (no date) [facility] (missing) (missing) (missing) Result panel 2006 Specimen collection (procedure) (no date) [facility] (missing) (missing) (missing) Result panel 2007 Specimen collection (procedure) (no date) [facility] (missing) (missing) (missing) Result panel 2008 Specimen collection (procedure) (no date) [facility] (missing) (missing) (missing) Result panel 2009 Specimen collection (procedure) (no date) [facility] (missing) (missing) (missing) Result panel 2010 Specimen collection (procedure) (no date) [facility] (missing) (missing) (missing) Result panel 2011 Specimen collection (procedure) (no date) [facility] (missing) (missing) (missing) Result panel 2012 Specimen collection (procedure) (no date) [facility] (missing) (missing) (missing) Result panel 2013 Specimen collection (procedure) (no date) [facility] (missing) (missing) (missing) Result panel 2014 Specimen collection (procedure) (no date) [facility] (missing) (missing) (missing) Result panel 2015 Specimen collection (procedure) (no date) [facility] (missing) (missing) (missing) Result panel 2016 Specimen collection (procedure) (no date) [facility] (missing) (missing) (missing) Result panel 2017 Specimen collection (procedure) (no date) [facility] (missing) (missing) (missing) Result panel 2018 Specimen collection (procedure) (no date) [facility] (missing) (missing) (missing) Result panel 2019 Specimen collection (procedure) (no date) [facility] (missing) (missing) (missing) Result panel 2020 Specimen collection (procedure) (no date) [facility] (missing) (missing) (missing) Result panel 2020 Specimen collection (procedure) (no date) [facility] (missing) (missing) (missing) Result panel 2021 Specimen collection (procedure) (no date) [facility] (missing) (missing) (missing) Result panel 2022 Specimen collection (procedure) (no date) [facility] (missing) (missing) (missing) Result panel 2023 Specimen collection (procedure) (no date) [facility] (missing) (missing) (missing) Result panel 2024 Specimen collection (procedure) (no date) [facility] (missing) (missing) (missing) Result panel 2025 Specimen collection (procedure) (no date) [facility] (missing) (missing) (missing) Result panel 2026 Specimen collection (procedure) (no date) [facility] (missing) (missing) (missing) Result panel 2027 Specimen collection (procedure) (no date) [facility] (missing) (missing) (missing) Result panel 2028 Specimen collection (procedure) (no date) [facility] (missing) (missing) (missing) Result panel 2029 Specimen collection (procedure) (no date) [facility] (missing) (missing) (missing) Result panel 2030 Specimen collection (procedure) (no date) [facility] (missing) (missing) (missing) Result panel 2031 Specimen collection (procedure) (no date) [facility] (missing) (missing) (missing) Result panel 2032 Specimen collection (procedure) (no date) [facility] (missing) (missing) (missing) Result panel 2033 Specimen collection (procedure) (no date) [facility] (missing) (missing) (missing) Result panel 2034 Specimen collection (procedure) (no date) [facility] (missing) (missing) (missing) Result panel 2035 Specimen collection (procedure) (no date) [facility] (missing) (missing) (missing) Result panel 2036 Specimen collection (procedure) (no date) [facility] (missing) (missing) (missing) Result panel 2037 Specimen collection (procedure) (no date) [facility] (missing) (missing) (missing) Result panel 2038 Specimen collection (procedure) (no date) [facility] (missing) (missing) (missing) Result panel 2039 Specimen collection (procedure) (no date) [facility] (missing) (missing) (missing) Result panel 2040 Specimen collection (procedure) (no date) [facility] (missing) (missing) (missing) Result panel 204 Specimen collection (procedure) (no date) [facility] (missing) (missing) (missing) Result panel 204 Specimen collection (procedure) (no date) [facility] (missing) (missing) (missing) Result panel 204 Specimen collection (procedure) (no date) [facility] (missing) (missing) (missing) Result panel 204 Specimen collection (procedure) (no date) [facility] (missing) (missing) (missing) Result panel 2045 Specimen collection (procedure) (no date) [facility] (missing) (missing) (missing) Result panel 2046 Specimen collection (procedure) (no date) [facility] (missing) (missing) (missing) Result panel 2047 Specimen collection (procedure) (no date) [facility] (missing) (missing) (missing) Result panel 2048 Specimen collection (procedure) (no date) [facility] (missing) (missing) (missing) Result panel 2049 Specimen collection (procedure) (no date) [facility] (missing) (missing) (missing) Result panel 2050 Specimen collection (procedure) (no date) [facility] (missing) (missing) (missing) Result panel 2051 Specimen collection (procedure) (no date) [facility] (missing) (missing) (missing) Result panel 2052 Specimen collection (procedure) (no date) [facility] (missing) (missing) (missing) Result panel 2053 Specimen collection (procedure) (no date) [facility] (missing) (missing) (missing) Result panel 2054 Specimen collection (procedure) (no date) [facility] (missing) (missing) (missing) Result panel 2055 Specimen collection (procedure) (no date) [facility] (missing) (missing) (missing) Result panel 2056 Specimen collection (procedure) (no date) [facility] (missing) (missing) (missing) Result panel 2057 Specimen collection (procedure) (no date) [facility] (missing) (missing) (missing) Result panel 2058 Specimen collection (procedure) (no date) [facility] (missing) (missing) (missing) Result panel 2059 Specimen collection (procedure) (no date) [facility] (missing) (missing) (missing) Result panel 2060 Specimen collection (procedure) (no date) [facility] (missing) (missing) (missing) Result panel 2061 Specimen collection (procedure) (no date) [facility] (missing) (missing) (missing) Result panel 2062 Specimen collection (procedure) (no date) [facility] (missing) (missing) (missing) Result panel 2063 Specimen collection (procedure) (no date) [facility] (missing) (missing) (missing) Result panel 2064 Specimen collection (procedure) (no date) [facility] (missing) (missing) (missing) Result panel 2065 Specimen collection (procedure) (no date) [facility] (missing) (missing) (missing) Result panel 2066 Specimen collection (procedure) (no date) [facility] (missing) (missing) (missing) Result panel 2067 Specimen collection (procedure) (no date) [facility] (missing) (missing) (missing) Result panel 2068 Specimen collection (procedure) (no date) [facility] (missing) (missing) (missing) Result panel 2069 Specimen collection (procedure) (no date) [facility] (missing) (missing) (missing) Result panel 2070 Specimen collection (procedure) (no date) [facility] (missing) (missing) (missing) Result panel 2071 Specimen collection (procedure) (no date) [facility] (missing) (missing) (missing) Result panel 2072 Specimen collection (procedure) (no date) [facility] (missing) (missing) (missing) Result panel 2073 Specimen collection (procedure) (no date) [facility] (missing) (missing) (missing) Result panel 2074 Specimen collection (procedure) (no date) [facility] (missing) (missing) (missing) Result panel 2075 Specimen collection (procedure) (no date) [facility] (missing) (missing) (missing) Result panel 2076 Specimen collection (procedure) (no date) [facility] (missing) (missing) (missing) Result panel 2077 Specimen collection (procedure) (no date) [facility] (missing) (missing) (missing) Result panel 2078 Specimen collection (procedure) (no date) [facility] (missing) (missing) (missing) Result panel 2079 Specimen collection (procedure) (no date) [facility] (missing) (missing) (missing) Result panel 2080 Specimen collection (procedure) (no date) [facility] (missing) (missing) (missing) Result panel 2081 Specimen collection (procedure) (no date) [facility] (missing) (missing) (missing) Result panel 2082 Specimen collection (procedure) (no date) [facility] (missing) (missing) (missing) Result panel 2083 Specimen collection (procedure) (no date) [facility] (missing) (missing) (missing) Result panel 2084 Specimen collection (procedure) (no date) [facility] (missing) (missing) (missing) Result panel 208 Specimen collection (procedure) (no date) [facility] (missing) (missing) (missing) Result panel 208 Specimen collection (procedure) (no date) [facility] (missing) (missing) (missing) Result panel 2087 Specimen collection (procedure) (no date) [facility] (missing) (missing) (missing) Result panel 2088 Specimen collection (procedure) (no date) [facility] (missing) (missing) (missing) Result panel 2089 Specimen collection (procedure) (no date) [facility] (missing) (missing) (missing) Result panel 2090 Specimen collection (procedure) (no date) [facility] (missing) (missing) (missing) Result panel 2091 Specimen collection (procedure) (no date) [facility] (missing) (missing) (missing) Result panel 2092 Specimen collection (procedure) (no date) [facility] (missing) (missing) (missing) Result panel 2093 Specimen collection (procedure) (no date) [facility] (missing) (missing) (missing) Result panel 2094 Specimen collection (procedure) (no date) [facility] (missing) (missing) (missing) Result panel 2095 Specimen collection (procedure) (no date) [facility] (missing) (missing) (missing) Result panel 2096 Specimen collection (procedure) (no date) [facility] (missing) (missing) (missing) Result panel 2097 Specimen collection (procedure) (no date) [facility] (missing) (missing) (missing) Result panel 2098 Specimen collection (procedure) (no date) [facility] (missing) (missing) (missing) Result panel 2099 Specimen collection (procedure) (no date) [facility] (missing) (missing) (missing) Result panel 2100 Specimen collection (procedure) (no date) [facility] (missing) (missing) (missing) Result panel 2101 Specimen collection (procedure) (no date) [facility] (missing) (missing) (missing) Result panel 2102 Specimen collection (procedure) (no date) [facility] (missing) (missing) (missing) Result panel 2103 Specimen collection (procedure) (no date) [facility] (missing) (missing) (missing) Result panel 5 Specimen collection (procedure) (no date) [facility] (missing) (missing) (missing) Result panel 2105 Specimen collection (procedure) (no date) [facility] (missing) (missing) (missing) Result panel 2106 Specimen collection (procedure) (no date) [facility] (missing) (missing) (missing) Result panel 210 Specimen collection (procedure) (no date) [facility] (missing) (missing) (missing) Result panel 2108 Specimen collection (procedure) (no date) [facility] (missing) (missing) (missing) Result panel 2109 Specimen collection (procedure) (no date) [facility] (missing) (missing) (missing) Result panel 2110 Specimen collection (procedure) (no date) [facility] (missing) (missing) (missing) Result panel 2111 Specimen collection (procedure) (no date) [facility] (missing) (missing) (missing) Result panel 2112 Specimen collection (procedure) (no date) [facility] (missing) (missing) (missing) Result panel 2113 Specimen collection (procedure) (no date) [facility] (missing) (missing) (missing) Result panel 2114 Specimen collection (procedure) (no date) [facility] (missing) (missing) (missing) Result panel 2115 Specimen collection (procedure) (no date) [facility] (missing) (missing) (missing) Result panel 2116 Specimen collection (procedure) (no date) [facility] (missing) (missing) (missing) Result panel 2117 Specimen collection (procedure) (no date) [facility] (missing) (missing) (missing) Result panel 2118 Specimen collection (procedure) (no date) [facility] (missing) (missing) (missing) Result panel 2119 Specimen collection (procedure) (no date) [facility] (missing) (missing) (missing) Result panel 2120 Specimen collection (procedure) (no date) [facility] (missing) (missing) (missing) Result panel 2121 Specimen collection (procedure) (no date) [facility] (missing) (missing) (missing) Result panel 212 Specimen collection (procedure) (no date) [facility] (missing) (missing) (missing) Result panel 2124 Specimen collection (procedure) (no date) [facility] (missing) (missing) (missing) Result panel 2125 Specimen collection (procedure) (no date) [facility] (missing) (missing) (missing) Result panel 2126 Specimen collection (procedure) (no date) [facility] (missing) (missing) (missing) Result panel 2127 Specimen collection (procedure) (no date) [facility] (missing) (missing) (missing) Result panel 2128 Specimen collection (procedure) (no date) [facility] (missing) (missing) (missing) Result panel 2129 Specimen collection (procedure) (no date) [facility] (missing) (missing) (missing) Result panel 2130 Specimen collection (procedure) (no date) [facility] (missing) (missing) (missing) Result panel 2131 Specimen collection (procedure) (no date) [facility] (missing) (missing) (missing) Result panel 2132 Specimen collection (procedure) (no date) [facility] (missing) (missing) (missing) Result panel 2133 Specimen collection (procedure) (no date) [facility] (missing) (missing) (missing) Result panel 2134 Specimen collection (procedure) (no date) [facility] (missing) (missing) (missing) Result panel 2135 Specimen collection (procedure) (no date) [facility] (missing) (missing) (missing) Result panel 2136 Specimen collection (procedure) (no date) [facility] (missing) (missing) (missing) Result panel 2137 Specimen collection (procedure) (no date) [facility] (missing) (missing) (missing) Result panel 2138 Specimen collection (procedure) (no date) [facility] (missing) (missing) (missing) Result panel 2139 Specimen collection (procedure) (no date) [facility] (missing) (missing) (missing) Result panel 2140 Specimen collection (procedure) (no date) [facility] (missing) (missing) (missing) Result panel 2141 Specimen collection (procedure) (no date) [facility] (missing) (missing) (missing) Result panel 2142 Specimen collection (procedure) (no date) [facility] (missing) (missing) (missing) Result panel 2143 Specimen collection (procedure) (no date) [facility] (missing) (missing) (missing) Result panel 2144 Specimen collection (procedure) (no date) [facility] (missing) (missing) (missing) Result panel 2145 Specimen collection (procedure) (no date) [facility] (missing) (missing) (missing) Result panel 2146 Specimen collection (procedure) (no date) [facility] (missing) (missing) (missing) Result panel 2147 Specimen collection (procedure) (no date) [facility] (missing) (missing) (missing) Result panel 2148 Specimen collection (procedure) (no date) [facility] (missing) (missing) (missing) Result panel 2149 Specimen collection (procedure) (no date) [facility] (missing) (missing) (missing) Result panel 2150 Specimen collection (procedure) (no date) [facility] (missing) (missing) (missing) Result panel 2151 Specimen collection (procedure) (no date) [facility] (missing) (missing) (missing) Result panel 2152 Specimen collection (procedure) (no date) [facility] (missing) (missing) (missing) Result panel 2153 Specimen collection (procedure) (no date) [facility] (missing) (missing) (missing) Result panel 2154 Specimen collection (procedure) (no date) [facility] (missing) (missing) (missing) Result panel 2155 Specimen collection (procedure) (no date) [facility] (missing) (missing) (missing) Result panel 2156 Specimen collection (procedure) (no date) [facility] (missing) (missing) (missing) Result panel 2157 Specimen collection (procedure) (no date) [facility] (missing) (missing) (missing) Result panel 2158 Specimen collection (procedure) (no date) [facility] (missing) (missing) (missing) Result panel 2159 Specimen collection (procedure) (no date) [facility] (missing) (missing) (missing) Result panel 2160 Specimen collection (procedure) (no date) [facility] (missing) (missing) (missing) Result panel 2161 Specimen collection (procedure) (no date) [facility] (missing) (missing) (missing) Result panel 2162 Specimen collection (procedure) (no date) [facility] (missing) (missing) (missing) Result panel 2163 Specimen collection (procedure) (no date) [facility] (missing) (missing) (missing) Result panel 2164 Specimen collection (procedure) (no date) [facility] (missing) (missing) (missing) Result panel 2165 Specimen collection (procedure) (no date) [facility] (missing) (missing) (missing) Result panel 2166 Specimen collection (procedure) (no date) [facility] (missing) (missing) (missing) Result panel 2167 Specimen collection (procedure) (no date) [facility] (missing) (missing) (missing) Result panel 2168 Specimen collection (procedure) (no date) [facility] (missing) (missing) (missing) Result panel 2169 Specimen collection (procedure) (no date) [facility] (missing) (missing) (missing) Result panel 2170 Specimen collection (procedure) (no date) [facility] (missing) (missing) (missing) Result panel 2171 Specimen collection (procedure) (no date) [facility] (missing) (missing) (missing) Result panel 2172 Specimen collection (procedure) (no date) [facility] (missing) (missing) (missing) Result panel 2173 Specimen collection (procedure) (no date) [facility] (missing) (missing) (missing) Result panel 2174 Specimen collection (procedure) (no date) [facility] (missing) (missing) (missing) Result panel 2175 Specimen collection (procedure) (no date) [facility] (missing) (missing) (missing) Result panel 2176 Specimen collection (procedure) (no date) [facility] (missing) (missing) (missing) Result panel 2177 Specimen collection (procedure) (no date) [facility] (missing) (missing) (missing) Result panel 2178 Specimen collection (procedure) (no date) [facility] (missing) (missing) (missing) Result panel 2179 Specimen collection (procedure) (no date) [facility] (missing) (missing) (missing) Result panel 2180 Specimen collection (procedure) (no date) [facility] (missing) (missing) (missing) Result panel 2181 Specimen collection (procedure) (no date) [facility] (missing) (missing) (missing) Result panel 2182 Specimen collection (procedure) (no date) [facility] (missing) (missing) (missing) Result panel 2183 Specimen collection (procedure) (no date) [facility] (missing) (missing) (missing) Result panel 2184 Specimen collection (procedure) (no date) [facility] (missing) (missing) (missing) Result panel 2185 Specimen collection (procedure) (no date) [facility] (missing) (missing) (missing) Result panel 2186 Specimen collection (procedure) (no date) [facility] (missing) (missing) (missing) Result panel 2187 Specimen collection (procedure) (no date) [facility] (missing) (missing) (missing) Result panel 2188 Specimen collection (procedure) (no date) [facility] (missing) (missing) (missing) Result panel 2189 Specimen collection (procedure) (no date) [facility] (missing) (missing) (missing) Result panel 2190 Specimen collection (procedure) (no date) [facility] (missing) (missing) (missing) Result panel 2191 Specimen collection (procedure) (no date) [facility] (missing) (missing) (missing) Result panel 2192 Specimen collection (procedure) (no date) [facility] (missing) (missing) (missing) Result panel 2193 Specimen collection (procedure) (no date) [facility] (missing) (missing) (missing) Result panel 2194 Specimen collection (procedure) (no date) [facility] (missing) (missing) (missing) Result panel 2195 Specimen collection (procedure) (no date) [facility] (missing) (missing) (missing) Result panel 2196 Specimen collection (procedure) (no date) [facility] (missing) (missing) (missing) Result panel 2197 Specimen collection (procedure) (no date) [facility] (missing) (missing) (missing) Result panel 2198 Specimen collection (procedure) (no date) [facility] (missing) (missing) (missing) Result panel 2199 Specimen collection (procedure) (no date) [facility] (missing) (missing) (missing) Result panel 2200 Specimen collection (procedure) (no date) [facility] (missing) (missing) (missing) Result panel 2201 Specimen collection (procedure) (no date) [facility] (missing) (missing) (missing) Result panel 2202 Specimen collection (procedure) (no date) [facility] (missing) (missing) (missing) Result panel 2203 Specimen collection (procedure) (no date) [facility] (missing) (missing) (missing) Result panel 2204 Specimen collection (procedure) (no date) [facility] (missing) (missing) (missing) Result panel 2205 Specimen collection (procedure) (no date) [facility] (missing) (missing) (missing) Result panel 2206 Specimen collection (procedure) (no date) [facility] (missing) (missing) (missing) Result panel 2207 Specimen collection (procedure) (no date) [facility] (missing) (missing) (missing) Result panel 2208 Specimen collection (procedure) (no date) [facility] (missing) (missing) (missing) Result panel 2209 Specimen collection (procedure) (no date) [facility] (missing) (missing) (missing) Result panel 2210 Specimen collection (procedure) (no date) [facility] (missing) (missing) (missing) Result panel 2211 Specimen collection (procedure) (no date) [facility] (missing) (missing) (missing) Result panel 2212 Specimen collection (procedure) (no date) [facility] (missing) (missing) (missing) Result panel 2213 Specimen collection (procedure) (no date) [facility] (missing) (missing) (missing) Result panel 2214 Specimen collection (procedure) (no date) [facility] (missing) (missing) (missing) Result panel 2215 Specimen collection (procedure) (no date) [facility] (missing) (missing) (missing) Result panel 2216 Specimen collection (procedure) (no date) [facility] (missing) (missing) (missing) Result panel 2217 Specimen collection (procedure) (no date) [facility] (missing) (missing) (missing) Result panel 2218 Specimen collection (procedure) (no date) [facility] (missing) (missing) (missing) Result panel 2219 Specimen collection (procedure) (no date) [facility] (missing) (missing) (missing) Result panel 2220 Specimen collection (procedure) (no date) [facility] (missing) (missing) (missing) Result panel 2221 Specimen collection (procedure) (no date) [facility] (missing) (missing) (missing) Result panel 2222 Specimen collection (procedure) (no date) [facility] (missing) (missing) (missing) Result panel 2223 Specimen collection (procedure) (no date) [facility] (missing) (missing) (missing) Result panel 2224 Specimen collection (procedure) (no date) [facility] (missing) (missing) (missing) Result panel 2225 Specimen collection (procedure) (no date) [facility] (missing) (missing) (missing) Result panel 2226 Specimen collection (procedure) (no date) [facility] (missing) (missing) (missing) Result panel 2227 Specimen collection (procedure) (no date) [facility] (missing) (missing) (missing) Result panel 2228 Specimen collection (procedure) (no date) [facility] (missing) (missing) (missing) Result panel 2229 Specimen collection (procedure) (no date) [facility] (missing) (missing) (missing) Result panel 2230 Specimen collection (procedure) (no date) [facility] (missing) (missing) (missing) Result panel 2231 Specimen collection (procedure) (no date) [facility] (missing) (missing) (missing) Result panel 2232 Specimen collection (procedure) (no date) [facility] (missing) (missing) (missing) Result panel 2233 Specimen collection (procedure) (no date) [facility] (missing) (missing) (missing) Result panel 2234 Specimen collection (procedure) (no date) [facility] (missing) (missing) (missing) Result panel 2235 Specimen collection (procedure) (no date) [facility] (missing) (missing) (missing) Result panel 2236 Specimen collection (procedure) (no date) [facility] (missing) (missing) (missing) Result panel 2237 Specimen collection (procedure) (no date) [facility] (missing) (missing) (missing) Result panel 2238 Specimen collection (procedure) (no date) [facility] (missing) (missing) (missing) Result panel 2239 Specimen collection (procedure) (no date) [facility] (missing) (missing) (missing) Result panel 2240 Specimen collection (procedure) (no date) [facility] (missing) (missing) (missing) Result panel 2241 Specimen collection (procedure) (no date) [facility] (missing) (missing) (missing) Result panel 2242 Specimen collection (procedure) (no date) [facility] (missing) (missing) (missing) Result panel 2243 Specimen collection (procedure) (no date) [facility] (missing) (missing) (missing) Result panel 2244 Specimen collection (procedure) (no date) [facility] (missing) (missing) (missing) Result panel 2245 Specimen collection (procedure) (no date) [facility] (missing) (missing) (missing) Result panel 2246 Specimen collection (procedure) (no date) [facility] (missing) (missing) (missing) Result panel 2247 Specimen collection (procedure) (no date) [facility] (missing) (missing) (missing) Result panel 2248 Specimen collection (procedure) (no date) [facility] (missing) (missing) (missing) Result panel 2249 Specimen collection (procedure) (no date) [facility] (missing) (missing) (missing) Result panel 2250 Specimen collection (procedure) (no date) [facility] (missing) (missing) (missing) Result panel 2251 Specimen collection (procedure) (no date) [facility] (missing) (missing) (missing) Result panel 2252 Specimen collection (procedure) (no date) [facility] (missing) (missing) (missing) Result panel 2253 Specimen collection (procedure) (no date) [facility] (missing) (missing) (missing) Result panel 2254 Specimen collection (procedure) (no date) [facility] (missing) (missing) (missing) Result panel 2255 Specimen collection (procedure) (no date) [facility] (missing) (missing) (missing) Result panel 2256 Specimen collection (procedure) (no date) [facility] (missing) (missing) (missing) Result panel 2257 Specimen collection (procedure) (no date) [facility] (missing) (missing) (missing) Result panel 2258 Specimen collection (procedure) (no date) [facility] (missing) (missing) (missing) Result panel 2259 Specimen collection (procedure) (no date) [facility] (missing) (missing) (missing) Result panel 2260 Specimen collection (procedure) (no date) [facility] (missing) (missing) (missing) Result panel 2261 Specimen collection (procedure) (no date) [facility] (missing) (missing) (missing) Result panel 2262 Specimen collection (procedure) (no date) [facility] (missing) (missing) (missing) Result panel 2263 Specimen collection (procedure) (no date) [facility] (missing) (missing) (missing) Result panel 2264 Specimen collection (procedure) (no date) [facility] (missing) (missing) (missing) Result panel 2265 Specimen collection (procedure) (no date) [facility] (missing) (missing) (missing) Result panel 2266 Specimen collection (procedure) (no date) [facility] (missing) (missing) (missing) Result panel 2267 Specimen collection (procedure) (no date) [facility] (missing) (missing) (missing) Result panel 2268 Specimen collection (procedure) (no date) [facility] (missing) (missing) (missing) Result panel 2269 Specimen collection (procedure) (no date) [facility] (missing) (missing) (missing) Result panel 2270 Specimen collection (procedure) (no date) [facility] (missing) (missing) (missing) Result panel 2271 Specimen collection (procedure) (no date) [facility] (missing) (missing) (missing) Result panel 2272 Specimen collection (procedure) (no date) [facility] (missing) (missing) (missing) Result panel 2273 Specimen collection (procedure) (no date) [facility] (missing) (missing) (missing) Result panel 2274 Specimen collection (procedure) (no date) [facility] (missing) (missing) (missing) Result panel 2275 Specimen collection (procedure) (no date) [facility] (missing) (missing) (missing) Result panel 2276 Specimen collection (procedure) (no date) [facility] (missing) (missing) (missing) Result panel 2277 Specimen collection (procedure) (no date) [facility] (missing) (missing) (missing) Result panel 2278 Specimen collection (procedure) (no date) [facility] (missing) (missing) (missing) Result panel 2279 Specimen collection (procedure) (no date) [facility] (missing) (missing) (missing) Result panel 2280 Specimen collection (procedure) (no date) [facility] (missing) (missing) (missing) Result panel 2281 Specimen collection (procedure) (no date) [facility] (missing) (missing) (missing) Result panel 2282 Specimen collection (procedure) (no date) [facility] (missing) (missing) (missing) Result panel 2283 Specimen collection (procedure) (no date) [facility] (missing) (missing) (missing) Result panel 2284 Specimen collection (procedure) (no date) [facility] (missing) (missing) (missing) Result panel 2285 Specimen collection (procedure) (no date) [facility] (missing) (missing) (missing) Result panel 2286 Specimen collection (procedure) (no date) [facility] (missing) (missing) (missing) Result panel 2287 Specimen collection (procedure) (no date) [facility] [facility] (missing) (missing) (missing) Result panel 2288 Specimen collection (procedure) (no date) [facility] (missing) (missing) (missing) Result panel 2289 Specimen collection (procedure) (no date) [facility] (missing) (missing) (missing) Result panel 2290 Specimen collection (procedure) (no date) [facility] (missing) (missing) (missing) Result panel 2291 Specimen collection (procedure) (no date) [facility] (missing) (missing) (missing) Result panel 2292 Specimen collection (procedure) (no date) [facility] (missing) (missing) (missing) Result panel 2293 Specimen collection (procedure) (no date) [facility] (missing) (missing) (missing) Result panel 2294 Specimen collection (procedure) (no date) [facility] (missing) (missing) (missing) Result panel 2295 Specimen collection (procedure) (no date) [facility] (missing) (missing) (missing) Result panel 2296 Specimen collection (procedure) (no date) [facility] (missing) (missing) (missing) Result panel 2297 Specimen collection (procedure) (no date) [facility] (missing) (missing) (missing) Result panel 2298 Specimen collection (procedure) (no date) [facility] (missing) (missing) (missing) Result panel 2299 Specimen collection (procedure) (no date) [facility] (missing) (missing) (missing) Result panel 2300 Specimen collection (procedure) (no date) [facility] (missing) (missing) (missing) Result panel 2301 Specimen collection (procedure) (no date) [facility] (missing) (missing) (missing) Result panel 2302 Specimen collection (procedure) (no date) [facility] (missing) (missing) (missing) Result panel 2303 Specimen collection (procedure) (no date) [facility] (missing) (missing) (missing) Result panel 2304 Specimen collection (procedure) (no date) [facility] (missing) (missing) (missing) Result panel 2305 Specimen collection (procedure) (no date) [facility] (missing) (missing) (missing) Result panel 2306 Specimen collection (procedure) (no date) [facility] (missing) (missing) (missing) Result panel 2307 Specimen collection (procedure) (no date) [facility] (missing) (missing) (missing) Result panel 2308 Specimen collection (procedure) (no date) [facility] (missing) (missing) (missing) Result panel 2309 Specimen collection (procedure) (no date) [facility] (missing) (missing) (missing) Result panel 2310 Specimen collection (procedure) (no date) [facility] (missing) (missing) (missing) Result panel 2311 Specimen collection (procedure) (no date) [facility] (missing) (missing) (missing) Result panel 2312 Specimen collection (procedure) (no date) [facility] (missing) (missing) (missing) Result panel 2313 Specimen collection (procedure) (no date) [facility] (missing) (missing) (missing) Result panel 2314 Specimen collection (procedure) (no date) [facility] (missing) (missing) (missing) Result panel 2315 Specimen collection (procedure) (no date) [facility] (missing) (missing) (missing) Result panel 2316 Specimen collection (procedure) (no date) [facility] (missing) (missing) (missing) Result panel 2317 Specimen collection (procedure) (no date) [facility] (missing) (missing) (missing) Result panel 2318 Specimen collection (procedure) (no date) [facility] (missing) (missing) (missing) Result panel 2319 Specimen collection (procedure) (no date) [facility] (missing) (missing) (missing) Result panel 2320 Specimen collection (procedure) (no date) [facility] (missing) (missing) (missing) Result panel 2321 Specimen collection (procedure) (no date) [facility] (missing) (missing) (missing) Result panel 2322 Specimen collection (procedure) (no date) [facility] (missing) (missing) (missing) Result panel 2323 Specimen collection (procedure) (no date) [facility] (missing) (missing) (missing) Result panel 2324 Specimen collection (procedure) (no date) [facility] (missing) (missing) (missing) Result panel 2325 Specimen collection (procedure) (no date) [facility] (missing) (missing) (missing) Result panel 2326 Specimen collection (procedure) (no date) [facility] (missing) (missing) (missing) Result panel 2327 Specimen collection (procedure) (no date) [facility] (missing) (missing) (missing) Result panel 2328 Specimen collection (procedure) (no date) [facility] (missing) (missing) (missing) Result panel 2329 Specimen collection (procedure) (no date) [facility] (missing) (missing) (missing) Result panel 2330 Specimen collection (procedure) (no date) [facility] (missing) (missing) (missing) Result panel 2331 Specimen collection (procedure) (no date) [facility] (missing) (missing) (missing) Result panel 2332 Specimen collection (procedure) (no date) [facility] (missing) (missing) (missing) Result panel 2333 Specimen collection (procedure) (no date) [facility] (missing) (missing) (missing) Result panel 2334 Specimen collection (procedure) (no date) [facility] (missing) (missing) (missing) Result panel 2335 Specimen collection (procedure) (no date) [facility] (missing) (missing) (missing) Result panel 2336 Specimen collection (procedure) (no date) [facility] (missing) (missing) (missing) Result panel 2337 Specimen collection (procedure) (no date) [facility] (missing) (missing) (missing) Result panel 2338 Specimen collection (procedure) (no date) [facility] (missing) (missing) (missing) Result panel 2339 Specimen collection (procedure) (no date) [facility] (missing) (missing) (missing) Result panel 2340 Specimen collection (procedure) (no date) [facility] (missing) (missing) (missing) Result panel 2341 Specimen collection (procedure) (no date) [facility] (missing) (missing) (missing) Result panel 2342 Specimen collection (procedure) (no date) [facility] (missing) (missing) (missing) Result panel 2343 Specimen collection (procedure) (no date) [facility] (missing) (missing) (missing) Result panel 2344 Specimen collection (procedure) (no date) [facility] (missing) (missing) (missing) Result panel 2345 Specimen collection (procedure) (no date) [facility] (missing) (missing) (missing) Result panel 2346 Specimen collection (procedure) (no date) [facility] (missing) (missing) (missing) Result panel 2347 Specimen collection (procedure) (no date) [facility] (missing) (missing) (missing) Result panel 2348 Specimen collection (procedure) (no date) [facility] (missing) (missing) (missing) Result panel 2349 Specimen collection (procedure) (no date) [facility] (missing) (missing) (missing) Result panel 2350 Specimen collection (procedure) (no date) [facility] (missing) (missing) (missing) Result panel 2351 Specimen collection (procedure) (no date) [facility] (missing) (missing) (missing) Result panel 2352 Specimen collection (procedure) (no date) [facility] (missing) (missing) (missing) Result panel 2353 Specimen collection (procedure) (no date) [facility] (missing) (missing) (missing) Result panel 2354 Specimen collection (procedure) (no date) [facility] (missing) (missing) (missing) Result panel 2355 Specimen collection (procedure) (no date) [facility] (missing) (missing) (missing) Result panel 2356 Specimen collection (procedure) (no date) [facility] (missing) (missing) (missing) Result panel 2357 Specimen collection (procedure) (no date) [facility] (missing) (missing) (missing) Result panel 2358 Specimen collection (procedure) (no date) [facility] (missing) (missing) (missing) Result panel 2359 Specimen collection (procedure) (no date) [facility] (missing) (missing) (missing) Result panel 2360 Specimen collection (procedure) (no date) [facility] (missing) (missing) (missing) Result panel 2361 Specimen collection (procedure) (no date) [facility] (missing) (missing) (missing) Result panel 2362 Specimen collection (procedure) (no date) [facility] (missing) (missing) (missing) Result panel 2363 Specimen collection (procedure) (no date) [facility] (missing) (missing) (missing) Result panel 2364 Specimen collection (procedure) (no date) [facility] (missing) (missing) (missing) Result panel 2365 Specimen collection (procedure) (no date) [facility] (missing) (missing) (missing) Result panel 2366 Specimen collection (procedure) (no date) [facility] (missing) (missing) (missing) Result panel 2367 Specimen collection (procedure) (no date) [facility] (missing) (missing) (missing) Result panel 2368 Specimen collection (procedure) (no date) [facility] (missing) (missing) (missing) Result panel 2369 Specimen collection (procedure) (no date) [facility] (missing) (missing) (missing) Result panel 2370 Specimen collection (procedure) (no date) [facility] (missing) (missing) (missing) Result panel 2371 Specimen collection (procedure) (no date) [facility] (missing) (missing) (missing) Result panel 2372 Specimen collection (procedure) (no date) [facility] (missing) (missing) (missing) Result panel 2373 Specimen collection (procedure) (no date) [facility] (missing) (missing) (missing) Result panel 2374 Specimen collection (procedure) (no date) [facility] (missing) (missing) (missing) Result panel 2375 Specimen collection (procedure) (no date) [facility] (missing) (missing) (missing) Result panel 2376 Specimen collection (procedure) (no date) [facility] (missing) (missing) (missing) Result panel 2377 Specimen collection (procedure) (no date) [facility] (missing) (missing) (missing) Result panel 2378 Specimen collection (procedure) (no date) [facility] (missing) (missing) (missing) Result panel 2379 Specimen collection (procedure) (no date) [facility] (missing) (missing) (missing) Result panel 2380 Specimen collection (procedure) (no date) [facility] (missing) (missing) (missing) Result panel 2381 Specimen collection (procedure) (no date) [facility] (missing) (missing) (missing) Result panel 2382 Specimen collection (procedure) (no date) [facility] (missing) (missing) (missing) Result panel 2383 Specimen collection (procedure) (no date) [facility] (missing) (missing) (missing) Result panel 2384 Specimen collection (procedure) (no date) [facility] (missing) (missing) (missing) Result panel 2385 Specimen collection (procedure) (no date) [facility] (missing) (missing) (missing) Result panel 2386 Specimen collection (procedure) (no date) [facility] (missing) (missing) (missing) Result panel 2387 Specimen collection (procedure) (no date) [facility] (missing) (missing) (missing) Result panel 2388 Specimen collection (procedure) (no date) [facility] (missing) (missing) (missing) Result panel 2389 Specimen collection (procedure) (no date) [facility] (missing) (missing) (missing) Result panel 2390 Specimen collection (procedure) (no date) [facility] (missing) (missing) (missing) Result panel 2391 Specimen collection (procedure) (no date) [facility] (missing) (missing) (missing) Result panel 2392 Specimen collection (procedure) (no date) [facility] (missing) (missing) (missing) Result panel 2393 Specimen collection (procedure) (no date) [facility] (missing) (missing) (missing) Result panel 2394 Specimen collection (procedure) (no date) [facility] (missing) (missing) (missing) Result panel 2395 Specimen collection (procedure) (no date) [facility] (missing) (missing) (missing) Result panel 2396 Specimen collection (procedure) (no date) [facility] (missing) (missing) (missing) Result panel 2397 Specimen collection (procedure) (no date) [facility] (missing) (missing) (missing) Result panel 2398 Specimen collection (procedure) (no date) [facility] (missing) (missing) (missing) Result panel 2399 Specimen collection (procedure) (no date) [facility] (missing) (missing) (missing) Result panel 2400 Specimen collection (procedure) (no date) [facility] (missing) (missing) (missing) Result panel 2401 Specimen collection (procedure) (no date) [facility] (missing) (missing) (missing) Result panel 2402 Specimen collection (procedure) (no date) [facility] (missing) (missing) (missing) Result panel 2403 Specimen collection (procedure) (no date) [facility] (missing) (missing) (missing) Result panel 2404 Specimen collection (procedure) (no date) [facility] (missing) (missing) (missing) Result panel 2405 Specimen collection (procedure) (no date) [facility] (missing) (missing) (missing) Result panel 2406 Specimen collection (procedure) (no date) [facility] (missing) (missing) (missing) Result panel 2407 Specimen collection (procedure) (no date) [facility] (missing) (missing) (missing) Result panel 2408 Specimen collection (procedure) (no date) [facility] (missing) (missing) (missing) Result panel 2409 Specimen collection (procedure) (no date) [facility] (missing) (missing) (missing) Result panel 2410 Specimen collection (procedure) (no date) [facility] (missing) (missing) (missing) Result panel 2411 Specimen collection (procedure) (no date) [facility] (missing) (missing) (missing) Result panel 2412 Specimen collection (procedure) (no date) [facility] (missing) (missing) (missing) Result panel 2413 Specimen collection (procedure) (no date) [facility] (missing) (missing) (missing) Result panel 2414 Specimen collection (procedure) (no date) [facility] (missing) (missing) (missing) Result panel 2415 Specimen collection (procedure) (no date) [facility] (missing) (missing) (missing) Result panel 2416 Specimen collection (procedure) (no date) [facility] (missing) (missing) (missing) Result panel 2417 Specimen collection (procedure) (no date) [facility] (missing) (missing) (missing) Result panel 2418 Specimen collection (procedure) (no date) [facility] (missing) (missing) (missing) Result panel 2419 Specimen collection (procedure) (no date) [facility] (missing) (missing) (missing) Result panel 2420 Specimen collection (procedure) (no date) [facility] (missing) (missing) (missing) Result panel 2421 Specimen collection (procedure) (no date) [facility] (missing) (missing) (missing) Result panel 2422 Specimen collection (procedure) (no date) [facility] (missing) (missing) (missing) Result panel 2423 Specimen collection (procedure) (no date) [facility] (missing) (missing) (missing) Result panel 2424 Specimen collection (procedure) (no date) [facility] (missing) (missing) (missing) Result panel 2425 Specimen collection (procedure) (no date) [facility] (missing) (missing) (missing) Result panel 2426 Specimen collection (procedure) (no date) [facility] (missing) (missing) (missing) Result panel 2427 Specimen collection (procedure) (no date) [facility] (missing) (missing) (missing) Result panel 2428 Specimen collection (procedure) (no date) [facility] (missing) (missing) (missing) Result panel 2429 Specimen collection (procedure) (no date) [facility] (missing) (missing) (missing) Result panel 2430 Specimen collection (procedure) (no date) [facility] (missing) (missing) (missing) Result panel 2431 Specimen collection (procedure) (no date) [facility] (missing) (missing) (missing) Result panel 2432 Specimen collection (procedure) (no date) [facility] (missing) (missing) (missing) Result panel 2433 Specimen collection (procedure) (no date) [facility] (missing) (missing) (missing) Result panel 2434 Specimen collection (procedure) (no date) [facility] (missing) (missing) (missing) Result panel 2435 Specimen collection (procedure) (no date) [facility] (missing) (missing) (missing) Result panel 2436 Specimen collection (procedure) (no date) [facility] (missing) (missing) (missing) Result panel 2437 Specimen collection (procedure) (no date) [facility] (missing) (missing) (missing) Result panel 2438 Specimen collection (procedure) (no date) [facility] (missing) (missing) (missing) Result panel 2439 Specimen collection (procedure) (no date) [facility] (missing) (missing) (missing) Result panel 2440 Specimen collection (procedure) (no date) [facility] (missing) (missing) (missing) Result panel 2441 Specimen collection (procedure) (no date) [facility] (missing) (missing) (missing) Result panel 2442 Specimen collection (procedure) (no date) [facility] (missing) (missing) (missing) Result panel 2443 Specimen collection (procedure) (no date) [facility] (missing) (missing) (missing) Result panel 2444 Specimen collection (procedure) (no date) [facility] (missing) (missing) (missing) Result panel 2445 Specimen collection (procedure) (no date) [facility] (missing) (missing) (missing) Result panel 2446 Specimen collection (procedure) (no date) [facility] (missing) (missing) (missing) Result panel 2447 Specimen collection (procedure) (no date) [facility] (missing) (missing) (missing) Result panel 2448 Specimen collection (procedure) (no date) [facility] (missing) (missing) (missing) Result panel 2449 Specimen collection (procedure) (no date) [facility] (missing) (missing) (missing) Result panel 2450 Specimen collection (procedure) (no date) [facility] (missing) (missing) (missing) Result panel 2451 Specimen collection (procedure) (no date) [facility] (missing) (missing) (missing) Result panel 2452 Specimen collection (procedure) (no date) [facility] (missing) (missing) (missing) Result panel 2453 Specimen collection (procedure) (no date) [facility] (missing) (missing) (missing) Result panel 2454 Specimen collection (procedure) (no date) [facility] (missing) (missing) (missing) Result panel 2455 Specimen collection (procedure) (no date) [facility] (missing) (missing) (missing) Result panel 2456 Specimen collection (procedure) (no date) [facility] (missing) (missing) (missing) Result panel 2457 Specimen collection (procedure) (no date) [facility] (missing) (missing) (missing) Result panel 2458 Specimen collection (procedure) (no date) [facility] (missing) (missing) (missing) Result panel 2459 Specimen collection (procedure) (no date) [facility] (missing) (missing) (missing) Result panel 2460 Specimen collection (procedure) (no date) [facility] (missing) (missing) (missing) Result panel 2461 Specimen collection (procedure) (no date) [facility] (missing) (missing) (missing) Result panel 2462 Specimen collection (procedure) (no date) [facility] (missing) (missing) (missing) Result panel 2463 Specimen collection (procedure) (no date) [facility] (missing) (missing) (missing) Result panel 2464 Specimen collection (procedure) (no date) [facility] (missing) (missing) (missing) Result panel 2465 Specimen collection (procedure) (no date) [facility] (missing) (missing) (missing) Result panel 2466 Specimen collection (procedure) (no date) [facility] (missing) (missing) (missing) Result panel 2467 Specimen collection (procedure) (no date) [facility] (missing) (missing) (missing) Result panel 2468 Specimen collection (procedure) (no date) [facility] (missing) (missing) (missing) Result panel 2469 Specimen collection (procedure) (no date) [facility] (missing) (missing) (missing) Result panel 2470 Specimen collection (procedure) (no date) [facility] (missing) (missing) (missing) Result panel 2471 Specimen collection (procedure) (no date) [facility] (missing) (missing) (missing) Result panel 2472 Specimen collection (procedure) (no date) [facility] (missing) (missing) (missing) Result panel 2473 Specimen collection (procedure) (no date) [facility] (missing) (missing) (missing) Result panel 2474 Specimen collection (procedure) (no date) [facility] (missing) (missing) (missing) Result panel 2475 Specimen collection (procedure) (no date) [facility] (missing) (missing) (missing) Result panel 2476 Specimen collection (procedure) (no date) [facility] (missing) (missing) (missing) Result panel 2477 Specimen collection (procedure) (no date) [facility] (missing) (missing) (missing) Result panel 2478 Specimen collection (procedure) (no date) [facility] (missing) (missing) (missing) Result panel 2479 Specimen collection (procedure) (no date) [facility] (missing) (missing) (missing) Result panel 2480 Specimen collection (procedure) (no date) [facility] (missing) (missing) (missing) Result panel 2481 Specimen collection (procedure) (no date) [facility] (missing) (missing) (missing) Result panel 2482 Specimen collection (procedure) (no date) [facility] (missing) (missing) (missing) Result panel 2483 Specimen collection (procedure) (no date) [facility] (missing) (missing) (missing) Result panel 2484 Specimen collection (procedure) (no date) [facility] (missing) (missing) (missing) Result panel 2485 Specimen collection (procedure) (no date) [facility] (missing) (missing) (missing) Result panel 2486 Specimen collection (procedure) (no date) [facility] (missing) (missing) (missing) Result panel 2487 Specimen collection (procedure) (no date) [facility] (missing) (missing) (missing) Result panel 2488 Specimen collection (procedure) (no date) [facility] (missing) (missing) (missing) Result panel 2489 Specimen collection (procedure) (no date) [facility] (missing) (missing) (missing) Result panel 2490 Specimen collection (procedure) (no date) [facility] (missing) (missing) (missing) Result panel 2491 Specimen collection (procedure) (no date) [facility] (missing) (missing) (missing) Result panel 2492 Specimen collection (procedure) (no date) [facility] (missing) (missing) (missing) Result panel 2493 Specimen collection (procedure) (no date) [facility] (missing) (missing) (missing) Result panel 2494 Specimen collection (procedure) (no date) [facility] (missing) (missing) (missing) Result panel 2495 Specimen collection (procedure) (no date) [facility] (missing) (missing) (missing) Result panel 2496 Specimen collection (procedure) (no date) [facility] (missing) (missing) (missing) Result panel 2497 Specimen collection (procedure) (no date) [facility] (missing) (missing) (missing) Result panel 2498 Specimen collection (procedure) (no date) [facility] (missing) (missing) (missing) Result panel 2499 Specimen collection (procedure) (no date) [facility] (missing) (missing) (missing) Result panel 2500 Specimen collection (procedure) (no date) [facility] (missing) (missing) (missing) Result panel 2501 Specimen collection (procedure) (no date) [facility] (missing) (missing) (missing) Result panel 2502 Specimen collection (procedure) (no date) [facility] (missing) (missing) (missing) Result panel 2503 Specimen collection (procedure) (no date) [facility] (missing) (missing) (missing) Result panel 2504 Specimen collection (procedure) (no date) [facility] (missing) (missing) (missing) Result panel 2505 Specimen collection (procedure) (no date) [facility] (missing) (missing) (missing) Result panel 2506 Specimen collection (procedure) (no date) [facility] (missing) (missing) (missing) Result panel 2507 Specimen collection (procedure) (no date) [facility] (missing) (missing) (missing) Result panel 2508 Specimen collection (procedure) (no date) [facility] (missing) (missing) (missing) Result panel 2509 Specimen collection (procedure) (no date) [facility] (missing) (missing) (missing) Result panel 2510 Specimen collection (procedure) (no date) [facility] (missing) (missing) (missing) Result panel 2511 Specimen collection (procedure) (no date) [facility] (missing) (missing) (missing) Result panel 2512 Specimen collection (procedure) (no date) [facility] (missing) (missing) (missing) Result panel 2513 Specimen collection (procedure) (no date) [facility] (missing) (missing) (missing) Result panel 2514 Specimen collection (procedure) (no date) [facility] (missing) (missing) (missing) Result panel 2515 Specimen collection (procedure) (no date) [facility] (missing) (missing) (missing) Result panel 2516 Specimen collection (procedure) (no date) [facility] (missing) (missing) (missing) Result panel 2517 Specimen collection (procedure) (no date) [facility] (missing) (missing) (missing) Result panel 2518 Specimen collection (procedure) (no date) [facility] (missing) (missing) (missing) Result panel 2519 Specimen collection (procedure) (no date) [facility] (missing) (missing) (missing) Result panel 2520 Specimen collection (procedure) (no date) [facility] (missing) (missing) (missing) Result panel 2521 Specimen collection (procedure) (no date) [facility] (missing) (missing) (missing) Result panel 2522 Specimen collection (procedure) (no date) [facility] (missing) (missing) (missing) Result panel 2523 Specimen collection (procedure) (no date) [facility] (missing) (missing) (missing) Result panel 2524 Specimen collection (procedure) (no date) [facility] (missing) (missing) (missing) Result panel 2525 Specimen collection (procedure) (no date) [facility] (missing) (missing) (missing) Result panel 2526 Specimen collection (procedure) (no date) [facility] (missing) (missing) (missing) Result panel 2527 Specimen collection (procedure) (no date) [facility] (missing) (missing) (missing) Result panel 2528 Specimen collection (procedure) (no date) [facility] (missing) (missing) (missing) Result panel 2529 Specimen collection (procedure) (no date) [facility] (missing) (missing) (missing) Result panel 2530 Specimen collection (procedure) (no date) [facility] (missing) (missing) (missing) Result panel 2531 Specimen collection (procedure) (no date) [facility] (missing) (missing) (missing) Result panel 2532 Specimen collection (procedure) (no date) [facility] (missing) (missing) (missing) Result panel 2533 Specimen collection (procedure) (no date) [facility] (missing) (missing) (missing) Result panel 2534 Specimen collection (procedure) (no date) [facility] (missing) (missing) (missing) Result panel 2535 Specimen collection (procedure) (no date) [facility] (missing) (missing) (missing) Result panel 2536 Specimen collection (procedure) (no date) [facility] (missing) (missing) (missing) Result panel 2537 Specimen collection (procedure) (no date) [facility] (missing) (missing) (missing) Result panel 2538 Specimen collection (procedure) (no date) [facility] (missing) (missing) (missing) Result panel 2539 Specimen collection (procedure) (no date) [facility] (missing) (missing) (missing) Result panel 2540 Specimen collection (procedure) (no date) [facility] (missing) (missing) (missing) Result panel 2541 Specimen collection (procedure) (no date) [facility] (missing) (missing) (missing) Result panel 2542 Specimen collection (procedure) (no date) [facility] (missing) (missing) (missing) Result panel 2543 Specimen collection (procedure) (no date) [facility] (missing) (missing) (missing) Result panel 2544 Specimen collection (procedure) (no date) [facility] (missing) (missing) (missing) Result panel 2545 Specimen collection (procedure) (no date) [facility] (missing) (missing) (missing) Result panel 2546 Specimen collection (procedure) (no date) [facility] (missing) (missing) (missing) Result panel 2547 Specimen collection (procedure) (no date) [facility] (missing) (missing) (missing) Result panel 2548 Specimen collection (procedure) (no date) [facility] (missing) (missing) (missing) Result panel 2549 Specimen collection (procedure) (no date) [facility] (missing) (missing) (missing) Result panel 2550 Specimen collection (procedure) (no date) [facility] (missing) (missing) (missing) Result panel 2551 Specimen collection (procedure) (no date) [facility] (missing) (missing) (missing) Result panel 2552 Specimen collection (procedure) (no date) [facility] (missing) (missing) (missing) Result panel 2553 Specimen collection (procedure) (no date) [facility] (missing) (missing) (missing) Result panel 2554 Specimen collection (procedure) (no date) [facility] (missing) (missing) (missing) Result panel 2555 Specimen collection (procedure) (no date) [facility] (missing) (missing) (missing) Result panel 2556 Specimen collection (procedure) (no date) [facility] (missing) (missing) (missing) Result panel 2557 Specimen collection (procedure) (no date) [facility] (missing) (missing) (missing) Result panel 2558 Specimen collection (procedure) (no date) [facility] (missing) (missing) (missing) Result panel 2559 Specimen collection (procedure) (no date) [facility] (missing) (missing) (missing) Result panel 2560 Specimen collection (procedure) (no date) [facility] (missing) (missing) (missing) Result panel 2561 Specimen collection (procedure) (no date) [facility] (missing) (missing) (missing) Result panel 2562 Specimen collection (procedure) (no date) [facility] (missing) (missing) (missing) Result panel 2563 Specimen collection (procedure) (no date) [facility] (missing) (missing) (missing) Result panel 2564 Specimen collection (procedure) (no date) [facility] (missing) (missing) (missing) Result panel 2565 Specimen collection (procedure) (no date) [facility] (missing) (missing) (missing) Result panel 2566 Specimen collection (procedure) (no date) [facility] (missing) (missing) (missing) Result panel 2567 Specimen collection (procedure) (no date) [facility] (missing) (missing) (missing) Result panel 2568 Specimen collection (procedure) (no date) [facility] (missing) (missing) (missing) Result panel 2569 Specimen collection (procedure) (no date) [facility] (missing) (missing) (missing) Result panel 2570 Specimen collection (procedure) (no date) [facility] (missing) (missing) (missing) Result panel 2571 Specimen collection (procedure) (no date) [facility] (missing) (missing) (missing) Result panel 2572 Specimen collection (procedure) (no date) [facility] (missing) (missing) (missing) Result panel 2573 Specimen collection (procedure) (no date) [facility] (missing) (missing) (missing) Result panel 2574 Specimen collection (procedure) (no date) [facility] (missing) (missing) (missing) Result panel 2575 Specimen collection (procedure) (no date) [facility] (missing) (missing) (missing) Result panel 2576 Specimen collection (procedure) (no date) [facility] (missing) (missing) (missing) Result panel 2577 Specimen collection (procedure) (no date) [facility] (missing) (missing) (missing) Result panel 2578 Specimen collection (procedure) (no date) [facility] (missing) (missing) (missing) Result panel 2579 Specimen collection (procedure) (no date) [facility] (missing) (missing) (missing) Result panel 2580 Specimen collection (procedure) (no date) [facility] (missing) (missing) (missing) Result panel 2581 Specimen collection (procedure) (no date) [facility] (missing) (missing) (missing) Result panel 2582 Specimen collection (procedure) (no date) [facility] (missing) (missing) (missing) Result panel 2583 Specimen collection (procedure) (no date) [facility] (missing) (missing) (missing) Result panel 2584 Specimen collection (procedure) (no date) [facility] (missing) (missing) (missing) Result panel 2585 Specimen collection (procedure) (no date) [facility] (missing) (missing) (missing) Result panel 2586 Specimen collection (procedure) (no date) [facility] (missing) (missing) (missing) Result panel 2587 Specimen collection (procedure) (no date) [facility] (missing) (missing) (missing) Result panel 2588 Specimen collection (procedure) (no date) [facility] (missing) (missing) (missing) Result panel 2589 Specimen collection (procedure) (no date) [facility] (missing) (missing) (missing) Result panel 2590 Specimen collection (procedure) (no date) [facility] (missing) (missing) (missing) Result panel 2591 Specimen collection (procedure) (no date) [facility] (missing) (missing) (missing) Result panel 2592 Specimen collection (procedure) (no date) [facility] (missing) (missing) (missing) Result panel 2593 Specimen collection (procedure) (no date) [facility] (missing) (missing) (missing) Result panel 2594 Specimen collection (procedure) (no date) [facility] (missing) (missing) (missing) Result panel 2595 Specimen collection (procedure) (no date) [facility] (missing) (missing) (missing) Result panel 2596 Specimen collection (procedure) (no date) [facility] (missing) (missing) (missing) Result panel 2597 Specimen collection (procedure) (no date) [facility] (missing) (missing) (missing) Result panel 2598 Specimen collection (procedure) (no date) [facility] (missing) (missing) (missing) Result panel 2599 Specimen collection (procedure) (no date) [facility] (missing) (missing) (missing) Result panel 2600 Specimen collection (procedure) (no date) [facility] (missing) (missing) (missing) Result panel 2601 Specimen collection (procedure) (no date) [facility] (missing) (missing) (missing) Result panel 2602 Specimen collection (procedure) (no date) [facility] (missing) (missing) (missing) Result panel 2603 Specimen collection (procedure) (no date) [facility] (missing) (missing) (missing) Result panel 2604 Specimen collection (procedure) (no date) [facility] (missing) (missing) (missing) Result panel 2605 Specimen collection (procedure) (no date) [facility] (missing) (missing) (missing) Result panel 2606 Specimen collection (procedure) (no date) [facility] (missing) (missing) (missing) Result panel 2607 Specimen collection (procedure) (no date) [facility] (missing) (missing) (missing) Result panel 2608 Specimen collection (procedure) (no date) [facility] (missing) (missing) (missing) Result panel 2609 Specimen collection (procedure) (no date) [facility] (missing) (missing) (missing) Result panel 2610 Specimen collection (procedure) (no date) [facility] (missing) (missing) (missing) Result panel 2611 Specimen collection (procedure) (no date) [facility] (missing) (missing) (missing) Result panel 2612 Specimen collection (procedure) (no date) [facility] (missing) (missing) (missing) Result panel 2613 Specimen collection (procedure) (no date) [facility] (missing) (missing) (missing) Result panel 2614 Specimen collection (procedure) (no date) [facility] (missing) (missing) (missing) Result panel 2615 Specimen collection (procedure) (no date) [facility] (missing) (missing) (missing) Result panel 2616 Specimen collection (procedure) (no date) [facility] (missing) (missing) (missing) Result panel 2617 Specimen collection (procedure) (no date) [facility] (missing) (missing) (missing) Result panel 2618 Specimen collection (procedure) (no date) [facility] (missing) (missing) (missing) Result panel 2619 Specimen collection (procedure) (no date) [facility] (missing) (missing) (missing) Result panel 2620 Specimen collection (procedure) (no date) [facility] (missing) (missing) (missing) Result panel 2621 Specimen collection (procedure) (no date) [facility] (missing) (missing) (missing) Result panel 2622 Specimen collection (procedure) (no date) [facility] (missing) (missing) (missing) Result panel 2623 Specimen collection (procedure) (no date) [facility] (missing) (missing) (missing) Result panel 2624 Specimen collection (procedure) (no date) [facility] (missing) (missing) (missing) Result panel 2625 Specimen collection (procedure) (no date) [facility] (missing) (missing) (missing) Result panel 2626 Specimen collection (procedure) (no date) [facility] (missing) (missing) (missing) Result panel 2627 Specimen collection (procedure) (no date) [facility] (missing) (missing) (missing) Result panel 2628 Specimen collection (procedure) (no date) [facility] (missing) (missing) (missing) Result panel 2629 Specimen collection (procedure) (no date) [facility] (missing) (missing) (missing) Result panel 2630 Specimen collection (procedure) (no date) [facility] (missing) (missing) (missing) Result panel 2631 Specimen collection (procedure) (no date) [facility] (missing) (missing) (missing) Result panel 2632 Specimen collection (procedure) (no date) [facility] (missing) (missing) (missing) Result panel 2633 Specimen collection (procedure) (no date) [facility] (missing) (missing) (missing) Result panel 2634 Specimen collection (procedure) (no date) [facility] (missing) (missing) (missing) Result panel 2635 Specimen collection (procedure) (no date) [facility] (missing) (missing) (missing) Result panel 2636 Specimen collection (procedure) (no date) [facility] (missing) (missing) (missing) Result panel 2637 Specimen collection (procedure) (no date) [facility] (missing) (missing) (missing) Result panel 2638 Specimen collection (procedure) (no date) [facility] (missing) (missing) (missing) Result panel 2639 Specimen collection (procedure) (no date) [facility] (missing) (missing) (missing) Result panel 2640 Specimen collection (procedure) (no date) [facility] (missing) (missing) (missing) Result panel 2641 Specimen collection (procedure) (no date) [facility] (missing) (missing) (missing) Result panel 2642 Specimen collection (procedure) (no date) [facility] (missing) (missing) (missing) Result panel 2643 Specimen collection (procedure) (no date) [facility] (missing) (missing) (missing) Result panel 2644 Specimen collection (procedure) (no date) [facility] (missing) (missing) (missing) Result panel 2645 Specimen collection (procedure) (no date) [facility] (missing) (missing) (missing) Result panel 2646 Specimen collection (procedure) (no date) [facility] (missing) (missing) (missing) Result panel 2647 Specimen collection (procedure) (no date) [facility] (missing) (missing) (missing) Result panel 2648 Specimen collection (procedure) (no date) [facility] (missing) (missing) (missing) Result panel 2649 Specimen collection (procedure) (no date) [facility] (missing) (missing) (missing) Result panel 2650 Specimen collection (procedure) (no date) [facility] (missing) (missing) (missing) Result panel 2651 Specimen collection (procedure) (no date) [facility] (missing) (missing) (missing) Result panel 2652 Specimen collection (procedure) (no date) [facility] (missing) (missing) (missing) Result panel 2653 Specimen collection (procedure) (no date) [facility] (missing) (missing) (missing) Result panel 2654 Specimen collection (procedure) (no date) [facility] (missing) (missing) (missing) Result panel 2655 Specimen collection (procedure) (no date) [facility] (missing) (missing) (missing) Result panel 2656 Specimen collection (procedure) (no date) [facility] (missing) (missing) (missing) Result panel 2657 Specimen collection (procedure) (no date) [facility] (missing) (missing) (missing) Result panel 2658 Specimen collection (procedure) (no date) [facility] (missing) (missing) (missing) Result panel 2659 Specimen collection (procedure) (no date) [facility] (missing) (missing) (missing) Result panel 2660 Specimen collection (procedure) (no date) [facility] (missing) (missing) (missing) Result panel 2661 Specimen collection (procedure) (no date) [facility] (missing) (missing) (missing) Result panel 2662 Specimen collection (procedure) (no date) [facility] (missing) (missing) (missing) Result panel 2663 Specimen collection (procedure) (no date) [facility] (missing) (missing) (missing) Result panel 2664 Specimen collection (procedure) (no date) [facility] (missing) (missing) (missing) Result panel 2665 Specimen collection (procedure) (no date) [facility] (missing) (missing) (missing) Result panel 2666 Specimen collection (procedure) (no date) [facility] (missing) (missing) (missing) Result panel 2667 Specimen collection (procedure) (no date) [facility] (missing) (missing) (missing) Result panel 2668 Specimen collection (procedure) (no date) [facility] (missing) (missing) (missing) Result panel 2669 Specimen collection (procedure) (no date) [facility] (missing) (missing) (missing) Result panel 2670 Specimen collection (procedure) (no date) [facility] (missing) (missing) (missing) Result panel 2671 Specimen collection (procedure) (no date) [facility] (missing) (missing) (missing) Result panel 2672 Specimen collection (procedure) (no date) [facility] (missing) (missing) (missing) Result panel 2673 Specimen collection (procedure) (no date) [facility] (missing) (missing) (missing) Result panel 2674 Specimen collection (procedure) (no date) [facility] (missing) (missing) (missing) Result panel 2675 Specimen collection (procedure) (no date) [facility] (missing) (missing) (missing) Result panel 2676 Specimen collection (procedure) (no date) [facility] (missing) (missing) (missing) Result panel 2677 Specimen collection (procedure) (no date) [facility] (missing) (missing) (missing) Result panel 2678 Specimen collection (procedure) (no date) [facility] (missing) (missing) (missing) Result panel 2679 Specimen collection (procedure) (no date) [facility] (missing) (missing) (missing) Result panel 2680 Specimen collection (procedure) (no date) [facility] (missing) (missing) (missing) Result panel 2681 Specimen collection (procedure) (no date) [facility] (missing) (missing) (missing) Result panel 2682 Specimen collection (procedure) (no date) [facility] (missing) (missing) (missing) Result panel 2683 Specimen collection (procedure) (no date) [facility] (missing) (missing) (missing) Result panel 2684 Specimen collection (procedure) (no date) [facility] (missing) (missing) (missing) Result panel 2685 Specimen collection (procedure) (no date) [facility] (missing) (missing) (missing) Result panel 2686 Specimen collection (procedure) (no date) [facility] (missing) (missing) (missing) Result panel 2687 Specimen collection (procedure) (no date) [facility] (missing) (missing) (missing) Result panel 2688 Specimen collection (procedure) (no date) [facility] (missing) (missing) (missing) Result panel 2689 Specimen collection (procedure) (no date) [facility] (missing) (missing) (missing) Result panel 2690 Specimen collection (procedure) (no date) [facility] (missing) (missing) (missing) Result panel 2691 Specimen collection (procedure) (no date) [facility] (missing) (missing) (missing) Result panel 2692 Specimen collection (procedure) (no date) [facility] (missing) (missing) (missing) Result panel 2693 Specimen collection (procedure) (no date) [facility] (missing) (missing) (missing) Result panel 2694 Specimen collection (procedure) (no date) [facility] (missing) (missing) (missing) Result panel 2695 Specimen collection (procedure) (no date) [facility] (missing) (missing) (missing) Result panel 2696 Specimen collection (procedure) (no date) [facility] (missing) (missing) (missing) Result panel 2697 Specimen collection (procedure) (no date) [facility] (missing) (missing) (missing) Result panel 2698 Specimen collection (procedure) (no date) [facility] (missing) (missing) (missing) Result panel 2699 Specimen collection (procedure) (no date) [facility] (missing) (missing) (missing) Result panel 2700 Specimen collection (procedure) (no date) [facility] (missing) (missing) (missing) Result panel 2701 Specimen collection (procedure) (no date) [facility] (missing) (missing) (missing) Result panel 2702 Specimen collection (procedure) (no date) [facility] (missing) (missing) (missing) Result panel 2703 Specimen collection (procedure) (no date) [facility] (missing) (missing) (missing) Result panel 2704 Specimen collection (procedure) (no date) [facility] (missing) (missing) (missing) Result panel 2705 Specimen collection (procedure) (no date) [facility] (missing) (missing) (missing) Result panel 2706 Specimen collection (procedure) (no date) [facility] (missing) (missing) (missing) Result panel 2707 Specimen collection (procedure) (no date) [facility] (missing) (missing) (missing) Result panel 2708 Specimen collection (procedure) (no date) [facility] (missing) (missing) (missing) Result panel 2709 Specimen collection (procedure) (no date) [facility] (missing) (missing) (missing) Result panel 2710 Specimen collection (procedure) (no date) [facility] (missing) (missing) (missing) Result panel 2711 Specimen collection (procedure) (no date) [facility] (missing) (missing) (missing) Result panel 2712 Specimen collection (procedure) (no date) [facility] (missing) (missing) (missing) Result panel 2713 Specimen collection (procedure) (no date) [facility] (missing) (missing) (missing) Result panel 2714 Specimen collection (procedure) (no date) [facility] (missing) (missing) (missing) Result panel 2715 Specimen collection (procedure) (no date) [facility] (missing) (missing) (missing) Result panel 2716 Specimen collection (procedure) (no date) [facility] (missing) (missing) (missing) Result panel 2717 Specimen collection (procedure) (no date) [facility] (missing) (missing) (missing) Result panel 2718 Specimen collection (procedure) (no date) [facility] (missing) (missing) (missing) Result panel 2719 Specimen collection (procedure) (no date) [facility] (missing) (missing) (missing) Result panel 2720 Specimen collection (procedure) (no date) [facility] (missing) (missing) (missing) Result panel 2721 Specimen collection (procedure) (no date) [facility] (missing) (missing) (missing) Result panel 2722 Specimen collection (procedure) (no date) [facility] (missing) (missing) (missing) Result panel 2723 Specimen collection (procedure) (no date) [facility] (missing) (missing) (missing) Result panel 2724 Specimen collection (procedure) (no date) [facility] (missing) (missing) (missing) Result panel 2725 Specimen collection (procedure) (no date) [facility] (missing) (missing) (missing) Result panel 2726 Specimen collection (procedure) (no date) [facility] (missing) (missing) (missing) Result panel 2727 Specimen collection (procedure) (no date) [facility] (missing) (missing) (missing) Result panel 2728 Specimen collection (procedure) (no date) [facility] (missing) (missing) (missing) Result panel 2729 Specimen collection (procedure) (no date) [facility] (missing) (missing) (missing) Result panel 2730 Specimen collection (procedure) (no date) [facility] (missing) (missing) (missing) Result panel 2731 Specimen collection (procedure) (no date) [facility] (missing) (missing) (missing) Result panel 2732 Specimen collection (procedure) (no date) [facility] (missing) (missing) (missing) Result panel 2733 Specimen collection (procedure) (no date) [facility] (missing) (missing) (missing) Result panel 2734 Specimen collection (procedure) (no date) [facility] (missing) (missing) (missing) Result panel 2735 Specimen collection (procedure) (no date) [facility] (missing) (missing) (missing) Result panel 2736 Specimen collection (procedure) (no date) [facility] (missing) (missing) (missing) Result panel 2737 Specimen collection (procedure) (no date) [facility] (missing) (missing) (missing) Result panel 2738 Specimen collection (procedure) (no date) [facility] (missing) (missing) (missing) Result panel 2739 Specimen collection (procedure) (no date) [facility] (missing) (missing) (missing) Result panel 2740 Specimen collection (procedure) (no date) [facility] (missing) (missing) (missing) Result panel 2741 Specimen collection (procedure) (no date) [facility] (missing) (missing) (missing) Result panel 2742 Specimen collection (procedure) (no date) [facility] (missing) (missing) (missing) Result panel 2743 Specimen collection (procedure) (no date) [facility] (missing) (missing) (missing) Result panel 2744 Specimen collection (procedure) (no date) [facility] (missing) (missing) (missing) Result panel 2745 Specimen collection (procedure) (no date) [facility] (missing) (missing) (missing) Result panel 2746 Specimen collection (procedure) (no date) [facility] (missing) (missing) (missing) Result panel 2747 Specimen collection (procedure) (no date) [facility] (missing) (missing) (missing) Result panel 2748 Specimen collection (procedure) (no date) [facility] (missing) (missing) (missing) Result panel 2749 Specimen collection (procedure) (no date) [facility] (missing) (missing) (missing) Result panel 2750 Specimen collection (procedure) (no date) [facility] (missing) (missing) (missing) Result panel 2751 Specimen collection (procedure) (no date) [facility] (missing) (missing) (missing) Result panel 2752 Specimen collection (procedure) (no date) [facility] (missing) (missing) (missing) Result panel 2753 Specimen collection (procedure) (no date) [facility] (missing) (missing) (missing) Result panel 2754 Specimen collection (procedure) (no date) [facility] (missing) (missing) (missing) Result panel 2755 Specimen collection (procedure) (no date) [facility] (missing) (missing) (missing) Result panel 2756 Specimen collection (procedure) (no date) [facility] (missing) (missing) (missing) Result panel 2757 Specimen collection (procedure) (no date) [facility] (missing) (missing) (missing) Result panel 2758 Specimen collection (procedure) (no date) [facility] (missing) (missing) (missing) Result panel 2759 Specimen collection (procedure) (no date) [facility] (missing) (missing) (missing) Result panel 2760 Specimen collection (procedure) (no date) [facility] (missing) (missing) (missing) Result panel 2761 Specimen collection (procedure) (no date) [facility] (missing) (missing) (missing) Result panel 2762 Specimen collection (procedure) (no date) [facility] (missing) (missing) (missing) Result panel 2763 Specimen collection (procedure) (no date) [facility] (missing) (missing) (missing) Result panel 2764 Specimen collection (procedure) (no date) [facility] (missing) (missing) (missing) Result panel 2765 Specimen collection (procedure) (no date) [facility] (missing) (missing) (missing) Result panel 2766 Specimen collection (procedure) (no date) [facility] (missing) (missing) (missing) Result panel 2767 Specimen collection (procedure) (no date) [facility] (missing) (missing) (missing) Result panel 2768 Specimen collection (procedure) (no date) [facility] (missing) (missing) (missing) Result panel 2769 Specimen collection (procedure) (no date) [facility] (missing) (missing) (missing) Result panel 2770 Specimen collection (procedure) (no date) [facility] (missing) (missing) (missing) Result panel 2771 Specimen collection (procedure) (no date) [facility] (missing) (missing) (missing) Result panel 2772 Specimen collection (procedure) (no date) [facility] (missing) (missing) (missing) Result panel 2773 Specimen collection (procedure) (no date) [facility] (missing) (missing) (missing) Result panel 2774 Specimen collection (procedure) (no date) [facility] (missing) (missing) (missing) Result panel 2775 Specimen collection (procedure) (no date) [facility] (missing) (missing) (missing) Result panel 2776 Specimen collection (procedure) (no date) [facility] (missing) (missing) (missing) Result panel 2777 Specimen collection (procedure) (no date) [facility] (missing) (missing) (missing) Result panel 2778 Specimen collection (procedure) (no date) [facility] (missing) (missing) (missing) Result panel 2779 Specimen collection (procedure) (no date) [facility] (missing) (missing) (missing) Result panel 2780 Specimen collection (procedure) (no date) [facility] (missing) (missing) (missing) Result panel 2781 Specimen collection (procedure) (no date) [facility] (missing) (missing) (missing) Result panel 2782 Specimen collection (procedure) (no date) [facility] (missing) (missing) (missing) Result panel 2783 Specimen collection (procedure) (no date) [facility] (missing) (missing) (missing) Result panel 2784 Specimen collection (procedure) (no date) [facility] (missing) (missing) (missing) Result panel 2785 Specimen collection (procedure) (no date) [facility] (missing) (missing) (missing) Result panel 2786 Specimen collection (procedure) (no date) [facility] (missing) (missing) (missing) Result panel 2787 Specimen collection (procedure) (no date) [facility] (missing) (missing) (missing) Result panel 2788 Specimen collection (procedure) (no date) [facility] (missing) (missing) (missing) Result panel 2789 Specimen collection (procedure) (no date) [facility] (missing) (missing) (missing) Result panel 2790 Specimen collection (procedure) (no date) [facility] (missing) (missing) (missing) Result panel 2791 Specimen collection (procedure) (no date) [facility] (missing) (missing) (missing) Result panel 2792 Specimen collection (procedure) (no date) [facility] (missing) (missing) (missing) Result panel 2793 Specimen collection (procedure) (no date) [facility] (missing) (missing) (missing) Result panel 2794 Specimen collection (procedure) (no date) [facility] (missing) (missing) (missing) Result panel 2795 Specimen collection (procedure) (no date) [facility] (missing) (missing) (missing) Result panel 2796 Specimen collection (procedure) (no date) [facility] (missing) (missing) (missing) Result panel 2797 Specimen collection (procedure) (no date) [facility] (missing) (missing) (missing) Result panel 2798 Specimen collection (procedure) (no date) [facility] (missing) (missing) (missing) Result panel 2799 Specimen collection (procedure) (no date) [facility] (missing) (missing) (missing) Result panel 2800 Specimen collection (procedure) (no date) [facility] (missing) (missing) (missing) Result panel 2801 Specimen collection (procedure) (no date) [facility] (missing) (missing) (missing) Result panel 2802 Specimen collection (procedure) (no date) [facility] (missing) (missing) (missing) Result panel 2803 Specimen collection (procedure) (no date) [facility] (missing) (missing) (missing) Result panel 2804 Specimen collection (procedure) (no date) [facility] (missing) (missing) (missing) Result panel 2805 Specimen collection (procedure) (no date) [facility] (missing) (missing) (missing) Result panel 2806 Specimen collection (procedure) (no date) [facility] (missing) (missing) (missing) Result panel 2807 Specimen collection (procedure) (no date) [facility] (missing) (missing) (missing) Result panel 2808 Specimen collection (procedure) (no date) [facility] (missing) (missing) (missing) Result panel 2809 Specimen collection (procedure) (no date) [facility] (missing) (missing) (missing) Result panel 2810 Specimen collection (procedure) (no date) [facility] (missing) (missing) (missing) Result panel 2811 Specimen collection (procedure) (no date) [facility] (missing) (missing) (missing) Result panel 2812 Specimen collection (procedure) (no date) [facility] (missing) (missing) (missing) Result panel 2813 Specimen collection (procedure) (no date) [facility] (missing) (missing) (missing) Result panel 2814 Specimen collection (procedure) (no date) [facility] (missing) (missing) (missing) Result panel 2815 Specimen collection (procedure) (no date) [facility] (missing) (missing) (missing) Result panel 2816 Specimen collection (procedure) (no date) [facility] (missing) (missing) (missing) Result panel 2817 Specimen collection (procedure) (no date) [facility] (missing) (missing) (missing) Result panel 2818 Specimen collection (procedure) (no date) [facility] (missing) (missing) (missing) Result panel 2819 Specimen collection (procedure) (no date) [facility] (missing) (missing) (missing) Result panel 2820 Specimen collection (procedure) (no date) [facility] (missing) (missing) (missing) Result panel 2821 Specimen collection (procedure) (no date) [facility] (missing) (missing) (missing) Result panel 2822 Specimen collection (procedure) (no date) [facility] (missing) (missing) (missing) Result panel 2823 Specimen collection (procedure) (no date) [facility] (missing) (missing) (missing) Result panel 2824 Specimen collection (procedure) (no date) [facility] (missing) (missing) (missing) Result panel 2825 Specimen collection (procedure) (no date) [facility] (missing) (missing) (missing) Result panel 2826 Specimen collection (procedure) (no date) [facility] (missing) (missing) (missing) Result panel 2827 Specimen collection (procedure) (no date) [facility] (missing) (missing) (missing) Result panel 2828 Specimen collection (procedure) (no date) [facility] (missing) (missing) (missing) Result panel 2829 Specimen collection (procedure) (no date) [facility] (missing) (missing) (missing) Result panel 2830 Specimen collection (procedure) (no date) [facility] (missing) (missing) (missing) Result panel 2831 Specimen collection (procedure) (no date) [facility] (missing) (missing) (missing) Result panel 2832 Specimen collection (procedure) (no date) [facility] (missing) (missing) (missing) Result panel 2833 Specimen collection (procedure) (no date) [facility] (missing) (missing) (missing) Result panel 2834 Specimen collection (procedure) (no date) [facility] (missing) (missing) (missing) Result panel 2835 Specimen collection (procedure) (no date) [facility] (missing) (missing) (missing) Result panel 2836 Specimen collection (procedure) (no date) [facility] (missing) (missing) (missing) Result panel 2837 Specimen collection (procedure) (no date) [facility] (missing) (missing) (missing) Result panel 2838 Specimen collection (procedure) (no date) [facility] (missing) (missing) (missing) Result panel 2839 Specimen collection (procedure) (no date) [facility] (missing) (missing) (missing) Result panel 2840 Specimen collection (procedure) (no date) [facility] (missing) (missing) (missing) Result panel 2841 Specimen collection (procedure) (no date) [facility] (missing) (missing) (missing) Result panel 2842 Specimen collection (procedure) (no date) [facility] (missing) (missing) (missing) Result panel 2843 Specimen collection (procedure) (no date) [facility] (missing) (missing) (missing) Result panel 2844 Specimen collection (procedure) (no date) [facility] (missing) (missing) (missing) Result panel 2845 Specimen collection (procedure) (no date) [facility] (missing) (missing) (missing) Result panel 2846 Specimen collection (procedure) (no date) [facility] (missing) (missing) (missing) Result panel 2847 Specimen collection (procedure) (no date) [facility] (missing) (missing) (missing) Result panel 2848 Specimen collection (procedure) (no date) [facility] (missing) (missing) (missing) Result panel 2849 Specimen collection (procedure) (no date) [facility] (missing) (missing) (missing) Result panel 2850 Specimen collection (procedure) (no date) [facility] (missing) (missing) (missing) Result panel 2851 Specimen collection (procedure) (no date) [facility] (missing) (missing) (missing) Result panel 2852 Specimen collection (procedure) (no date) [facility] (missing) (missing) (missing) Result panel 2853 Specimen collection (procedure) (no date) [facility] (missing) (missing) (missing) Result panel 2854 Specimen collection (procedure) (no date) [facility] (missing) (missing) (missing) Result panel 2855 Specimen collection (procedure) (no date) [facility] (missing) (missing) (missing) Result panel 2856 Specimen collection (procedure) (no date) [facility] (missing) (missing) (missing) Result panel 2857 Specimen collection (procedure) (no date) [facility] (missing) (missing) (missing) Result panel 2858 Specimen collection (procedure) (no date) [facility] (missing) (missing) (missing) Result panel 2859 Specimen collection (procedure) (no date) [facility] (missing) (missing) (missing) Result panel 2860 Specimen collection (procedure) (no date) [facility] (missing) (missing) (missing) Result panel 2861 Specimen collection (procedure) (no date) [facility] (missing) (missing) (missing) Result panel 2862 Specimen collection (procedure) (no date) [facility] (missing) (missing) (missing) Result panel 2863 Specimen collection (procedure) (no date) [facility] (missing) (missing) (missing) Result panel 2864 Specimen collection (procedure) (no date) [facility] (missing) (missing) (missing) Result panel 2865 Specimen collection (procedure) (no date) [facility] (missing) (missing) (missing) Result panel 2866 Specimen collection (procedure) (no date) [facility] (missing) (missing) (missing) Result panel 2867 Specimen collection (procedure) (no date) [facility] (missing) (missing) (missing) Result panel 2868 Specimen collection (procedure) (no date) [facility] (missing) (missing) (missing) Result panel 2869 Specimen collection (procedure) (no date) [facility] (missing) (missing) (missing) Result panel 2870 Specimen collection (procedure) (no date) [facility] (missing) (missing) (missing) Result panel 2871 Specimen collection (procedure) (no date) [facility] (missing) (missing) (missing) Result panel 2872 Specimen collection (procedure) (no date) [facility] (missing) (missing) (missing) Result panel 2873 Specimen collection (procedure) (no date) [facility] (missing) (missing) (missing) Result panel 2874 Specimen collection (procedure) (no date) [facility] (missing) (missing) (missing) Result panel 2875 Specimen collection (procedure) (no date) [facility] (missing) (missing) (missing) Result panel 2876 Specimen collection (procedure) (no date) [facility] (missing) (missing) (missing) Result panel 2877 Specimen collection (procedure) (no date) [facility] (missing) (missing) (missing) Result panel 2878 Specimen collection (procedure) (no date) [facility] (missing) (missing) (missing) Result panel 2879 Specimen collection (procedure) (no date) [facility] (missing) (missing) (missing) Result panel 2880 Specimen collection (procedure) (no date) [facility] (missing) (missing) (missing) Result panel 2881 Specimen collection (procedure) (no date) [facility] (missing) (missing) (missing) Result panel 2882 Specimen collection (procedure) (no date) [facility] (missing) (missing) (missing) Result panel 2883 Specimen collection (procedure) (no date) [facility] (missing) (missing) (missing) Result panel 2884 Specimen collection (procedure) (no date) [facility] (missing) (missing) (missing) Result panel 2885 Specimen collection (procedure) (no date) [facility] (missing) (missing) (missing) Result panel 2886 Specimen collection (procedure) (no date) [facility] (missing) (missing) (missing) Result panel 2887 Specimen collection (procedure) (no date) [facility] (missing) (missing) (missing) Result panel 2888 Specimen collection (procedure) (no date) [facility] (missing) (missing) (missing) Result panel 2889 Specimen collection (procedure) (no date) [facility] (missing) (missing) (missing) Result panel 2890 Specimen collection (procedure) (no date) [facility] (missing) (missing) (missing) Result panel 2891 Specimen collection (procedure) (no date) [facility] (missing) (missing) (missing) Result panel 2892 Specimen collection (procedure) (no date) [facility] (missing) (missing) (missing) Result panel 2893 Specimen collection (procedure) (no date) [facility] (missing) (missing) (missing) Result panel 2894 Specimen collection (procedure) (no date) [facility] (missing) (missing) (missing) Result panel 2895 Specimen collection (procedure) (no date) [facility] (missing) (missing) (missing) Result panel 2896 Specimen collection (procedure) (no date) [facility] (missing) (missing) (missing) Result panel 2897 Specimen collection (procedure) (no date) [facility] (missing) (missing) (missing) Result panel 2898 Specimen collection (procedure) (no date) [facility] (missing) (missing) (missing) Result panel 2899 Specimen collection (procedure) (no date) [facility] (missing) (missing) (missing) Result panel 2900 Specimen collection (procedure) (no date) [facility] (missing) (missing) (missing) Result panel 2901 Specimen collection (procedure) (no date) [facility] (missing) (missing) (missing) Result panel 2902 Specimen collection (procedure) (no date) [facility] (missing) (missing) (missing) Result panel 2903 Specimen collection (procedure) (no date) [facility] (missing) (missing) (missing) Result panel 2904 Specimen collection (procedure) (no date) [facility] (missing) (missing) (missing) Result panel 2905 Specimen collection (procedure) (no date) [facility] (missing) (missing) (missing) Result panel 2906 Specimen collection (procedure) (no date) [facility] (missing) (missing) (missing) Result panel 2907 Specimen collection (procedure) (no date) [facility] (missing) (missing) (missing) Result panel 2908 Specimen collection (procedure) (no date) [facility] (missing) (missing) (missing) Result panel 2909 Specimen collection (procedure) (no date) [facility] (missing) (missing) (missing) Result panel 2910 Specimen collection (procedure) (no date) [facility] (missing) (missing) (missing) Result panel 2911 Specimen collection (procedure) (no date) [facility] (missing) (missing) (missing) Result panel 2912 Specimen collection (procedure) (no date) [facility] (missing) (missing) (missing) Result panel 2913 Specimen collection (procedure) (no date) [facility] (missing) (missing) (missing) Result panel 2914 Specimen collection (procedure) (no date) [facility] (missing) (missing) (missing) Result panel 2915 Specimen collection (procedure) (no date) [facility] (missing) (missing) (missing) Result panel 2916 Specimen collection (procedure) (no date) [facility] (missing) (missing) (missing) Result panel 2917 Specimen collection (procedure) (no date) [facility] (missing) (missing) (missing) Result panel 2918 Specimen collection (procedure) (no date) [facility] (missing) (missing) (missing) Result panel 2919 Specimen collection (procedure) (no date) [facility] (missing) (missing) (missing) Result panel 2920 Specimen collection (procedure) (no date) [facility] (missing) (missing) (missing) Result panel 2921 Specimen collection (procedure) (no date) [facility] (missing) (missing) (missing) Result panel 2922 Specimen collection (procedure) (no date) [facility] (missing) (missing) (missing) Result panel 2923 Specimen collection (procedure) (no date) [facility] (missing) (missing) (missing) Result panel 2924 Specimen collection (procedure) (no date) [facility] (missing) (missing) (missing) Result panel 2925 Specimen collection (procedure) (no date) [facility] (missing) (missing) (missing) Result panel 2926 Specimen collection (procedure) (no date) [facility] (missing) (missing) (missing) Result panel 2927 Specimen collection (procedure) (no date) [facility] (missing) (missing) (missing) Result panel 2928 Specimen collection (procedure) (no date) [facility] (missing) (missing) (missing) Result panel 2929 Specimen collection (procedure) (no date) [facility] (missing) (missing) (missing) Result panel 2930 Specimen collection (procedure) (no date) [facility] (missing) (missing) (missing) Result panel 2931 Specimen collection (procedure) (no date) [facility] (missing) (missing) (missing) Result panel 2932 Specimen collection (procedure) (no date) [facility] (missing) (missing) (missing) Result panel 2933 Specimen collection (procedure) (no date) [facility] (missing) (missing) (missing) Result panel 2934 Specimen collection (procedure) (no date) [facility] (missing) (missing) (missing) Result panel 2935 Specimen collection (procedure) (no date) [facility] (missing) (missing) (missing) Result panel 2936 Specimen collection (procedure) (no date) [facility] (missing) (missing) (missing) Result panel 2937 Specimen collection (procedure) (no date) [facility] (missing) (missing) (missing) Result panel 2938 Specimen collection (procedure) (no date) [facility] (missing) (missing) (missing) Result panel 2939 Specimen collection (procedure) (no date) [facility] (missing) (missing) (missing) Result panel 2940 Specimen collection (procedure) (no date) [facility] (missing) (missing) (missing) Result panel 2941 Specimen collection (procedure) (no date) [facility] (missing) (missing) (missing) Result panel 2942 Specimen collection (procedure) (no date) [facility] (missing) (missing) (missing) Result panel 2943 Specimen collection (procedure) (no date) [facility] (missing) (missing) (missing) Result panel 2944 Specimen collection (procedure) (no date) [facility] (missing) (missing) (missing) Result panel 2945 Specimen collection (procedure) (no date) [facility] (missing) (missing) (missing) Result panel 2946 Specimen collection (procedure) (no date) [facility] (missing) (missing) (missing) Result panel 2947 Specimen collection (procedure) (no date) [facility] (missing) (missing) (missing) Result panel 2948 Specimen collection (procedure) (no date) [facility] (missing) (missing) (missing) Result panel 2949 Specimen collection (procedure) (no date) [facility] (missing) (missing) (missing) Result panel 2950 Specimen collection (procedure) (no date) [facility] (missing) (missing) (missing) Result panel 2951 Specimen collection (procedure) (no date) [facility] (missing) (missing) (missing) Result panel 2952 Specimen collection (procedure) (no date) [facility] (missing) (missing) (missing) Result panel 2953 Specimen collection (procedure) (no date) [facility] (missing) (missing) (missing) Result panel 2954 Specimen collection (procedure) (no date) [facility] (missing) (missing) (missing) Result panel 2955 Specimen collection (procedure) (no date) [facility] (missing) (missing) (missing) Result panel 2956 Specimen collection (procedure) (no date) [facility] (missing) (missing) (missing) Result panel 2957 Specimen collection (procedure) (no date) [facility] (missing) (missing) (missing) Result panel 2958 Specimen collection (procedure) (no date) [facility] (missing) (missing) (missing) Result panel 2959 Specimen collection (procedure) (no date) [facility] (missing) (missing) (missing) Result panel 2960 Specimen collection (procedure) (no date) [facility] (missing) (missing) (missing) Result panel 2961 Specimen collection (procedure) (no date) [facility] (missing) (missing) (missing) Result panel 2962 Specimen collection (procedure) (no date) [facility] (missing) (missing) (missing) Result panel 2963 Specimen collection (procedure) (no date) [facility] (missing) (missing) (missing) Result panel 2964 Specimen collection (procedure) (no date) [facility] (missing) (missing) (missing) Result panel 2965 Specimen collection (procedure) (no date) [facility] (missing) (missing) (missing) Result panel 2966 Specimen collection (procedure) (no date) [facility] (missing) (missing) (missing) Result panel 2967 Specimen collection (procedure) (no date) [facility] (missing) (missing) (missing) Result panel 2968 Specimen collection (procedure) (no date) [facility] (missing) (missing) (missing) Result panel 2969 Specimen collection (procedure) (no date) [facility] (missing) (missing) (missing) Result panel 2970 Specimen collection (procedure) (no date) [facility] (missing) (missing) (missing) Result panel 2971 Specimen collection (procedure) (no date) [facility] (missing) (missing) (missing) Result panel 2972 Specimen collection (procedure) (no date) [facility] (missing) (missing) (missing) Result panel 2973 Specimen collection (procedure) (no date) [facility] (missing) (missing) (missing) Result panel 2974 Specimen collection (procedure) (no date) [facility] (missing) (missing) (missing) Result panel 2975 Specimen collection (procedure) (no date) [facility] (missing) (missing) (missing) Result panel 2976 Specimen collection (procedure) (no date) [facility] (missing) (missing) (missing) Result panel 2977 Specimen collection (procedure) (no date) [facility] (missing) (missing) (missing) Result panel 2978 Specimen collection (procedure) (no date) [facility] (missing) (missing) (missing) Result panel 2979 Specimen collection (procedure) (no date) [facility] (missing) (missing) (missing) Result panel 2980 Specimen collection (procedure) (no date) [facility] (missing) (missing) (missing) Result panel 2981 Specimen collection (procedure) (no date) [facility] (missing) (missing) (missing) Result panel 2982 Specimen collection (procedure) (no date) [facility] (missing) (missing) (missing) Result panel 2983 Specimen collection (procedure) (no date) [facility] (missing) (missing) (missing) Result panel 2984 Specimen collection (procedure) (no date) [facility] (missing) (missing) (missing) Result panel 2985 Specimen collection (procedure) (no date) [facility] (missing) (missing) (missing) Result panel 2986 Specimen collection (procedure) (no date) [facility] (missing) (missing) (missing) Result panel 2987 Specimen collection (procedure) (no date) [facility] (missing) (missing) (missing) Result panel 2988 Specimen collection (procedure) (no date) [facility] (missing) (missing) (missing) Result panel 2989 Specimen collection (procedure) (no date) [facility] (missing) (missing) (missing) Result panel 2990 Specimen collection (procedure) (no date) [facility] (missing) (missing) (missing) Result panel 2991 Specimen collection (procedure) (no date) [facility] (missing) (missing) (missing) Result panel 2992 Specimen collection (procedure) (no date) [facility] (missing) (missing) (missing) Result panel 2993 Specimen collection (procedure) (no date) [facility] (missing) (missing) (missing) Result panel 2994 Specimen collection (procedure) (no date) [facility] (missing) (missing) (missing) Result panel 2995 Specimen collection (procedure) (no date) [facility] (missing) (missing) (missing) Result panel 2996 Specimen collection (procedure) (no date) [facility] (missing) (missing) (missing) Result panel 2997 Specimen collection (procedure) (no date) [facility] (missing) (missing) (missing) Result panel 2998 Specimen collection (procedure) (no date) [facility] (missing) (missing) (missing) Result panel 2999 Specimen collection (procedure) (no date) [facility] (missing) (missing) (missing) Result panel 3000 Specimen collection (procedure) (no date) [facility] (missing) (missing) (missing) Result panel 3001 Specimen collection (procedure) (no date) [facility] (missing) (missing) (missing) Result panel 3002 Specimen collection (procedure) (no date) [facility] (missing) (missing) (missing) Result panel 3003 Specimen collection (procedure) (no date) [facility] (missing) (missing) (missing) Result panel 3004 Specimen collection (procedure) (no date) [facility] (missing) (missing) (missing) Result panel 3005 Specimen collection (procedure) (no date) [facility] (missing) (missing) (missing) Result panel 3006 Specimen collection (procedure) (no date) [facility] (missing) (missing) (missing) Result panel 3007 Specimen collection (procedure) (no date) [facility] (missing) (missing) (missing) Result panel 3008 Specimen collection (procedure) (no date) [facility] (missing) (missing) (missing) Result panel 3009 Specimen collection (procedure) (no date) [facility] (missing) (missing) (missing) Result panel 3010 Specimen collection (procedure) (no date) [facility] (missing) (missing) (missing) Result panel 3011 Specimen collection (procedure) (no date) [facility] (missing) (missing) (missing) Result panel 3012 Specimen collection (procedure) (no date) [facility] (missing) (missing) (missing) Result panel 3013 Specimen collection (procedure) (no date) [facility] (missing) (missing) (missing) Result panel 3014 Specimen collection (procedure) (no date) [facility] (missing) (missing) (missing) Result panel 3015 Specimen collection (procedure) (no date) [facility] (missing) (missing) (missing) Result panel 3016 Specimen collection (procedure) (no date) [facility] (missing) (missing) (missing) Result panel 3017 Specimen collection (procedure) (no date) [facility] (missing) (missing) (missing) Result panel 3018 Specimen collection (procedure) (no date) [facility] (missing) (missing) (missing) Result panel 3019 Specimen collection (procedure) (no date) [facility] (missing) (missing) (missing) Result panel 3020 Specimen collection (procedure) (no date) [facility] (missing) (missing) (missing) Result panel 3021 Specimen collection (procedure) (no date) [facility] (missing) (missing) (missing) Result panel 3022 Specimen collection (procedure) (no date) [facility] (missing) (missing) (missing) Result panel 3023 Specimen collection (procedure) (no date) [facility] (missing) (missing) (missing) Result panel 3024 Specimen collection (procedure) (no date) [facility] (missing) (missing) (missing) Result panel 3025 Specimen collection (procedure) (no date) [facility] (missing) (missing) (missing) Result panel 3026 Specimen collection (procedure) (no date) [facility] (missing) (missing) (missing) Result panel 3027 Specimen collection (procedure) (no date) [facility] (missing) (missing) (missing) Result panel 3028 Specimen collection (procedure) (no date) [facility] (missing) (missing) (missing) Result panel 3029 Specimen collection (procedure) (no date) [facility] (missing) (missing) (missing) Result panel 3030 Specimen collection (procedure) (no date) [facility] (missing) (missing) (missing) Result panel 3031 Specimen collection (procedure) (no date) [facility] (missing) (missing) (missing) Result panel 3032 Specimen collection (procedure) (no date) [facility] (missing) (missing) (missing) Result panel 3033 Specimen collection (procedure) (no date) [facility] (missing) (missing) (missing) Result panel 3034 Specimen collection (procedure) (no date) [facility] (missing) (missing) (missing) Result panel 3035 Specimen collection (procedure) (no date) [facility] (missing) (missing) (missing) Result panel 3036 Specimen collection (procedure) (no date) [facility] (missing) (missing) (missing) Result panel 3037 Specimen collection (procedure) (no date) [facility] (missing) (missing) (missing) Result panel 3038 Specimen collection (procedure) (no date) [facility] (missing) (missing) (missing) Result panel 3039 Specimen collection (procedure) (no date) [facility] (missing) (missing) (missing) Result panel 3040 Specimen collection (procedure) (no date) [facility] (missing) (missing) (missing) Result panel 3041 Specimen collection (procedure) (no date) [facility] (missing) (missing) (missing) Result panel 3042 Specimen collection (procedure) (no date) [facility] (missing) (missing) (missing) Result panel 3043 Specimen collection (procedure) (no date) [facility] (missing) (missing) (missing) Result panel 3044 Specimen collection (procedure) (no date) [facility] (missing) (missing) (missing) Result panel 3045 Specimen collection (procedure) (no date) [facility] (missing) (missing) (missing) Result panel 3046 Specimen collection (procedure) (no date) [facility] (missing) (missing) (missing) Result panel 3047 Specimen collection (procedure) (no date) [facility] (missing) (missing) (missing) Result panel 3048 Specimen collection (procedure) (no date) [facility] (missing) (missing) (missing) Result panel 3049 Specimen collection (procedure) (no date) [facility] (missing) (missing) (missing) Result panel 3050 Specimen collection (procedure) (no date) [facility] (missing) (missing) (missing) Result panel 3051 Specimen collection (procedure) (no date) [facility] (missing) (missing) (missing) Result panel 3052 Specimen collection (procedure) (no date) [facility] (missing) (missing) (missing) Result panel 3053 Specimen collection (procedure) (no date) [facility] (missing) (missing) (missing) Result panel 3054 Specimen collection (procedure) (no date) [facility] (missing) (missing) (missing) Result panel 3055 Specimen collection (procedure) (no date) [facility] (missing) (missing) (missing) Result panel 3056 Specimen collection (procedure) (no date) [facility] (missing) (missing) (missing) Result panel 3057 Specimen collection (procedure) (no date) [facility] (missing) (missing) (missing) Result panel 3058 Specimen collection (procedure) (no date) [facility] (missing) (missing) (missing) Result panel 3059 Specimen collection (procedure) (no date) [facility] (missing) (missing) (missing) Result panel 3060 Specimen collection (procedure) (no date) [facility] (missing) (missing) (missing) Result panel 3061 Specimen collection (procedure) (no date) [facility] (missing) (missing) (missing) Result panel 3062 Specimen collection (procedure) (no date) [facility] (missing) (missing) (missing) Result panel 3063 Specimen collection (procedure) (no date) [facility] (missing) (missing) (missing) Result panel 3064 Specimen collection (procedure) (no date) [facility] (missing) (missing) (missing) Result panel 3065 Specimen collection (procedure) (no date) [facility] (missing) (missing) (missing) Result panel 3066 Specimen collection (procedure) (no date) [facility] (missing) (missing) (missing) Result panel 3067 Specimen collection (procedure) (no date) [facility] (missing) (missing) (missing) Result panel 3068 Specimen collection (procedure) (no date) [facility] (missing) (missing) (missing) Result panel 3069 Specimen collection (procedure) (no date) [facility] (missing) (missing) (missing) Result panel 3070 Specimen collection (procedure) (no date) [facility] (missing) (missing) (missing) Result panel 3071 Specimen collection (procedure) (no date) [facility] (missing) (missing) (missing) Result panel 3072 Specimen collection (procedure) (no date) [facility] (missing) (missing) (missing) Result panel 3073 Specimen collection (procedure) (no date) [facility] (missing) (missing) (missing) Result panel 3074 Specimen collection (procedure) (no date) [facility] (missing) (missing) (missing) Result panel 3075 Specimen collection (procedure) (no date) [facility] (missing) (missing) (missing) Result panel 3076 Specimen collection (procedure) (no date) [facility] (missing) (missing) (missing) Result panel 3077 Specimen collection (procedure) (no date) [facility] (missing) (missing) (missing) Result panel 3078 Specimen collection (procedure) (no date) [facility] (missing) (missing) (missing) Result panel 3079 Specimen collection (procedure) (no date) [facility] (missing) (missing) (missing) Result panel 3080 Specimen collection (procedure) (no date) [facility] (missing) (missing) (missing) Result panel 3081 Specimen collection (procedure) (no date) [facility] (missing) (missing) (missing) Result panel 3082 Specimen collection (procedure) (no date) [facility] (missing) (missing) (missing) Result panel 3083 Specimen collection (procedure) (no date) [facility] (missing) (missing) (missing) Result panel 3084 Specimen collection (procedure) (no date) [facility] (missing) (missing) (missing) Result panel 3085 Specimen collection (procedure) (no date) [facility] (missing) (missing) (missing) Result panel 3086 Specimen collection (procedure) (no date) [facility] (missing) (missing) (missing) Result panel 3087 Specimen collection (procedure) (no date) [facility] (missing) (missing) (missing) Result panel 3088 Specimen collection (procedure) (no date) [facility] (missing) (missing) (missing) Result panel 3089 Specimen collection (procedure) (no date) [facility] (missing) (missing) (missing) Result panel 3090 Specimen collection (procedure) (no date) [facility] (missing) (missing) (missing) Result panel 3091 Specimen collection (procedure) (no date) [facility] (missing) (missing) (missing) Result panel 3092 Specimen collection (procedure) (no date) [facility] (missing) (missing) (missing) Result panel 3093 Specimen collection (procedure) (no date) [facility] (missing) (missing) (missing) Result panel 3094 Specimen collection (procedure) (no date) [facility] (missing) (missing) (missing) Result panel 3095 Specimen collection (procedure) (no date) [facility] (missing) (missing) (missing) Result panel 3096 Specimen collection (procedure) (no date) [facility] (missing) (missing) (missing) Result panel 3097 Specimen collection (procedure) (no date) [facility] (missing) (missing) (missing) Result panel 3098 Specimen collection (procedure) (no date) [facility] (missing) (missing) (missing) Result panel 3099 Specimen collection (procedure) (no date) [facility] (missing) (missing) (missing) Result panel 3100 Specimen collection (procedure) (no date) [facility] (missing) (missing) (missing) Result panel 3101 Specimen collection (procedure) (no date) [facility] (missing) (missing) (missing) Result panel 3102 Specimen collection (procedure) (no date) [facility] (missing) (missing) (missing) Result panel 3103 Specimen collection (procedure) (no date) [facility] (missing) (missing) (missing) Result panel 3104 Specimen collection (procedure) (no date) [facility] (missing) (missing) (missing) Result panel 3105 Specimen collection (procedure) (no date) [facility] (missing) (missing) (missing) Result panel 3106 Specimen collection (procedure) (no date) [facility] (missing) (missing) (missing) Result panel 3107 Specimen collection (procedure) (no date) [facility] (missing) (missing) (missing) Result panel 3108 Specimen collection (procedure) (no date) [facility] (missing) (missing) (missing) Result panel 3109 Specimen collection (procedure) (no date) [facility] (missing) (missing) (missing) Result panel 3110 Specimen collection (procedure) (no date) [facility] (missing) (missing) (missing) Result panel 3111 Specimen collection (procedure) (no date) [facility] (missing) (missing) (missing) Result panel 3112 Specimen collection (procedure) (no date) [facility] (missing) (missing) (missing) Result panel 3113 Specimen collection (procedure) (no date) [facility] (missing) (missing) (missing) Result panel 3114 Specimen collection (procedure) (no date) [facility] (missing) (missing) (missing) Result panel 3115 Specimen collection (procedure) (no date) [facility] (missing) (missing) (missing) Result panel 3116 Specimen collection (procedure) (no date) [facility] (missing) (missing) (missing) Result panel 3117 Specimen collection (procedure) (no date) [facility] (missing) (missing) (missing) Result panel 3118 Specimen collection (procedure) (no date) [facility] (missing) (missing) (missing) Result panel 3119 Specimen collection (procedure) (no date) [facility] (missing) (missing) (missing) Result panel 3120 Specimen collection (procedure) (no date) [facility] (missing) (missing) (missing) Result panel 3121 Specimen collection (procedure) (no date) [facility] (missing) (missing) (missing) Result panel 3122 Specimen collection (procedure) (no date) [facility] (missing) (missing) (missing) Result panel 3123 Specimen collection (procedure) (no date) [facility] (missing) (missing) (missing) Result panel 3124 Specimen collection (procedure) (no date) [facility] (missing) (missing) (missing) Result panel 3125 Specimen collection (procedure) (no date) [facility] (missing) (missing) (missing) Result panel 3126 Specimen collection (procedure) (no date) [facility] (missing) (missing) (missing) Result panel 3127 Specimen collection (procedure) (no date) [facility] (missing) (missing) (missing) Result panel 3128 Specimen collection (procedure) (no date) [facility] (missing) (missing) (missing) Result panel 3129 Specimen collection (procedure) (no date) [facility] (missing) (missing) (missing) Result panel 3130 Specimen collection (procedure) (no date) [facility] (missing) (missing) (missing) Result panel 3131 Specimen collection (procedure) (no date) [facility] (missing) (missing) (missing) Result panel 3132 Specimen collection (procedure) (no date) [facility] (missing) (missing) (missing) Result panel 3133 Specimen collection (procedure) (no date) [facility] (missing) (missing) (missing) Result panel 3134 Specimen collection (procedure) (no date) [facility] (missing) (missing) (missing) Result panel 3135 Specimen collection (procedure) (no date) [facility] (missing) (missing) (missing) Result panel 3136 Specimen collection (procedure) (no date) [facility] (missing) (missing) (missing) Result panel 3137 Specimen collection (procedure) (no date) [facility] (missing) (missing) (missing) Result panel 3138 Specimen collection (procedure) (no date) [facility] (missing) (missing) (missing) Result panel 3139 Specimen collection (procedure) (no date) [facility] (missing) (missing) (missing) Result panel 3140 Specimen collection (procedure) (no date) [facility] (missing) (missing) (missing) Result panel 3141 Specimen collection (procedure) (no date) [facility] (missing) (missing) (missing) Result panel 3142 Specimen collection (procedure) (no date) [facility] (missing) (missing) (missing) Result panel 3143 Specimen collection (procedure) (no date) [facility] (missing) (missing) (missing) Result panel 3144 Specimen collection (procedure) (no date) [facility] (missing) (missing) (missing) Result panel 3145 Specimen collection (procedure) (no date) [facility] (missing) (missing) (missing) Result panel 3146 Specimen collection (procedure) (no date) [facility] (missing) (missing) (missing) Result panel 3147 Specimen collection (procedure) (no date) [facility] (missing) (missing) (missing) Result panel 3148 Specimen collection (procedure) (no date) [facility] (missing) (missing) (missing) Result panel 3149 Specimen collection (procedure) (no date) [facility] (missing) (missing) (missing) Result panel 3150 Specimen collection (procedure) (no date) [facility] (missing) (missing) (missing) Result panel 3151 Specimen collection (procedure) (no date) [facility] (missing) (missing) (missing) Result panel 3152 Specimen collection (procedure) (no date) [facility] (missing) (missing) (missing) Result panel 3153 Specimen collection (procedure) (no date) [facility] (missing) (missing) (missing) Result panel 3154 Specimen collection (procedure) (no date) [facility] (missing) (missing) (missing) Result panel 3155 Specimen collection (procedure) (no date) [facility] (missing) (missing) (missing) Result panel 3156 Specimen collection (procedure) (no date) [facility] (missing) (missing) (missing) Result panel 3157 Specimen collection (procedure) (no date) [facility] (missing) (missing) (missing) Result panel 3158 Specimen collection (procedure) (no date) [facility] (missing) (missing) (missing) Result panel 3159 Specimen collection (procedure) (no date) [facility] (missing) (missing) (missing) Result panel 3160 Specimen collection (procedure) (no date) [facility] (missing) (missing) (missing) Result panel 3161 Specimen collection (procedure) (no date) [facility] (missing) (missing) (missing) Result panel 3162 Specimen collection (procedure) (no date) [facility] (missing) (missing) (missing) Result panel 3163 Specimen collection (procedure) (no date) [facility] (missing) (missing) (missing) Result panel 3164 Specimen collection (procedure) (no date) [facility] (missing) (missing) (missing) Result panel 3165 Specimen collection (procedure) (no date) [facility] (missing) (missing) (missing) Result panel 3166 Specimen collection (procedure) (no date) [facility] (missing) (missing) (missing) Result panel 3167 Specimen collection (procedure) (no date) [facility] (missing) (missing) (missing) Result panel 3168 Specimen collection (procedure) (no date) [facility] (missing) (missing) (missing) Result panel 3169 Specimen collection (procedure) (no date) [facility] (missing) (missing) (missing) Result panel 3170 Specimen collection (procedure) (no date) [facility] (missing) (missing) (missing) Result panel 3171 Specimen collection (procedure) (no date) [facility] (missing) (missing) (missing) Result panel 3172 Specimen collection (procedure) (no date) [facility] (missing) (missing) (missing) Result panel 3173 Specimen collection (procedure) (no date) [facility] (missing) (missing) (missing) Result panel 3174 Specimen collection (procedure) (no date) [facility] (missing) (missing) (missing) Result panel 3175 Specimen collection (procedure) (no date) [facility] (missing) (missing) (missing) Result panel 3176 Specimen collection (procedure) (no date) [facility] (missing) (missing) (missing) Result panel 3177 Specimen collection (procedure) (no date) [facility] (missing) (missing) (missing) Result panel 3178 Specimen collection (procedure) (no date) [facility] (missing) (missing) (missing) Result panel 3179 Specimen collection (procedure) (no date) [facility] (missing) (missing) (missing) Result panel 3180 Specimen collection (procedure) (no date) [facility] (missing) (missing) (missing) Result panel 3181 Specimen collection (procedure) (no date) [facility] (missing) (missing) (missing) Result panel 3182 Specimen collection (procedure) (no date) [facility] (missing) (missing) (missing) Result panel 3183 Specimen collection (procedure) (no date) [facility] (missing) (missing) (missing) Result panel 3184 Specimen collection (procedure) (no date) [facility] (missing) (missing) (missing) Result panel 3185 Specimen collection (procedure) (no date) [facility] (missing) (missing) (missing) Result panel 3186 Specimen collection (procedure) (no date) [facility] (missing) (missing) (missing) Result panel 3187 Specimen collection (procedure) (no date) [facility] (missing) (missing) (missing) Result panel 3188 Specimen collection (procedure) (no date) [facility] (missing) (missing) (missing) Result panel 3189 Specimen collection (procedure) (no date) [facility] (missing) (missing) (missing) Result panel 3190 Specimen collection (procedure) (no date) [facility] (missing) (missing) (missing) Result panel 3191 Specimen collection (procedure) (no date) [facility] (missing) (missing) (missing) Result panel 3192 Specimen collection (procedure) (no date) [facility] (missing) (missing) (missing) Result panel 3193 Specimen collection (procedure) (no date) [facility] (missing) (missing) (missing) Result panel 3194 Specimen collection (procedure) (no date) [facility] (missing) (missing) (missing) Result panel 3195 Specimen collection (procedure) (no date) [facility] (missing) (missing) (missing) Result panel 3196 Specimen collection (procedure) (no date) [facility] (missing) (missing) (missing) Result panel 3197 Specimen collection (procedure) (no date) [facility] (missing) (missing) (missing) Result panel 3198 Specimen collection (procedure) (no date) [facility] (missing) (missing) (missing) Result panel 3199 Specimen collection (procedure) (no date) [facility] (missing) (missing) (missing) Result panel 3200 Specimen collection (procedure) (no date) [facility] (missing) (missing) (missing) Result panel 3201 Specimen collection (procedure) (no date) [facility] (missing) (missing) (missing) Result panel 3202 Specimen collection (procedure) (no date) [facility] (missing) (missing) (missing) Result panel 3203 Specimen collection (procedure) (no date) [facility] (missing) (missing) (missing) Result panel 3204 Specimen collection (procedure) (no date) [facility] (missing) (missing) (missing) Result panel 3205 Specimen collection (procedure) (no date) [facility] (missing) (missing) (missing) Result panel 3206 Specimen collection (procedure) (no date) [facility] (missing) (missing) (missing) Result panel 3207 Specimen collection (procedure) (no date) [facility] (missing) (missing) (missing) Result panel 3208 Specimen collection (procedure) (no date) [facility] (missing) (missing) (missing) Result panel 3209 Specimen collection (procedure) (no date) [facility] (missing) (missing) (missing) Result panel 3210 Specimen collection (procedure) (no date) [facility] (missing) (missing) (missing) Result panel 3211 Specimen collection (procedure) (no date) [facility] (missing) (missing) (missing) Result panel 3212 Specimen collection (procedure) (no date) [facility] (missing) (missing) (missing) Result panel 3213 Specimen collection (procedure) (no date) [facility] (missing) (missing) (missing) Result panel 3214 Specimen collection (procedure) (no date) [facility] (missing) (missing) (missing) Result panel 3215 Specimen collection (procedure) (no date) [facility] (missing) (missing) (missing) Result panel 3216 Specimen collection (procedure) (no date) [facility] (missing) (missing) (missing) Result panel 3217 Specimen collection (procedure) (no date) [facility] (missing) (missing) (missing) Result panel 3218 Specimen collection (procedure) (no date) [facility] (missing) (missing) (missing) Result panel 3219 Specimen collection (procedure) (no date) [facility] (missing) (missing) (missing) Result panel 3220 Specimen collection (procedure) (no date) [facility] (missing) (missing) (missing) Result panel 3221 Specimen collection (procedure) (no date) [facility] (missing) (missing) (missing) Result panel 3222 Specimen collection (procedure) (no date) [facility] (missing) (missing) (missing) Result panel 3223 Specimen collection (procedure) (no date) [facility] (missing) (missing) (missing) Result panel 3224 Specimen collection (procedure) (no date) [facility] (missing) (missing) (missing) Result panel 3225 Specimen collection (procedure) (no date) [facility] (missing) (missing) (missing) Result panel 3226 Specimen collection (procedure) (no date) [facility] (missing) (missing) (missing) Result panel 3227 Specimen collection (procedure) (no date) [facility] (missing) (missing) (missing) Result panel 3228 Specimen collection (procedure) (no date) [facility] (missing) (missing) (missing) Result panel 3229 Specimen collection (procedure) (no date) [facility] (missing) (missing) (missing) Result panel 3230 Specimen collection (procedure) (no date) [facility] (missing) (missing) (missing) Result panel 3231 Specimen collection (procedure) (no date) [facility] (missing) (missing) (missing) Result panel 3232 Specimen collection (procedure) (no date) [facility] (missing) (missing) (missing) Result panel 3233 Specimen collection (procedure) (no date) [facility] (missing) (missing) (missing) Result panel 3234 Specimen collection (procedure) (no date) [facility] (missing) (missing) (missing) Result panel 3235 Specimen collection (procedure) (no date) [facility] (missing) (missing) (missing) Result panel 3236 Specimen collection (procedure) (no date) [facility] (missing) (missing) (missing) Result panel 3237 Specimen collection (procedure) (no date) [facility] (missing) (missing) (missing) Result panel 3238 Specimen collection (procedure) (no date) [facility] (missing) (missing) (missing) Result panel 3239 Specimen collection (procedure) (no date) [facility] (missing) (missing) (missing) Result panel 3240 Specimen collection (procedure) (no date) [facility] (missing) (missing) (missing) Result panel 3241 Specimen collection (procedure) (no date) [facility] (missing) (missing) (missing) Result panel 3242 Specimen collection (procedure) (no date) [facility] (missing) (missing) (missing) Result panel 3243 Specimen collection (procedure) (no date) [facility] (missing) (missing) (missing) Result panel 3244 Specimen collection (procedure) (no date) [facility] (missing) (missing) (missing) Result panel 3245 Specimen collection (procedure) (no date) [facility] (missing) (missing) (missing) Result panel 3246 Specimen collection (procedure) (no date) [facility] (missing) (missing) (missing) Result panel 3247 Specimen collection (procedure) (no date) [facility] (missing) (missing) (missing) Result panel 3248 Specimen collection (procedure) (no date) [facility] (missing) (missing) (missing) Result panel 3249 Specimen collection (procedure) (no date) [facility] (missing) (missing) (missing) Result panel 3250 Specimen collection (procedure) (no date) [facility] (missing) (missing) (missing) Result panel 3251 Specimen collection (procedure) (no date) [facility] (missing) (missing) (missing) Result panel 3252 Specimen collection (procedure) (no date) [facility] (missing) (missing) (missing) Result panel 3253 Specimen collection (procedure) (no date) [facility] (missing) (missing) (missing) Result panel 3254 Specimen collection (procedure) (no date) [facility] (missing) (missing) (missing) Result panel 3255 Specimen collection (procedure) (no date) [facility] (missing) (missing) (missing) Result panel 3256 Specimen collection (procedure) (no date) [facility] (missing) (missing) (missing) Result panel 3257 Specimen collection (procedure) (no date) [facility] (missing) (missing) (missing) Result panel 3258 Specimen collection (procedure) (no date) [facility] (missing) (missing) (missing) Result panel 3259 Specimen collection (procedure) (no date) [facility] (missing) (missing) (missing) Result panel 3260 Specimen collection (procedure) (no date) [facility] (missing) (missing) (missing) Result panel 3261 Specimen collection (procedure) (no date) [facility] (missing) (missing) (missing) Result panel 3262 Specimen collection (procedure) (no date) [facility] (missing) (missing) (missing) Result panel 3263 Specimen collection (procedure) (no date) [facility] (missing) (missing) (missing) Result panel 3264 Specimen collection (procedure) (no date) [facility] (missing) (missing) (missing) Result panel 3265 Specimen collection (procedure) (no date) [facility] (missing) (missing) (missing) Result panel 3266 Specimen collection (procedure) (no date) [facility] (missing) (missing) (missing) Result panel 3267 Specimen collection (procedure) (no date) [facility] (missing) (missing) (missing) Result panel 3268 Specimen collection (procedure) (no date) [facility] (missing) (missing) (missing) Result panel 3269 Specimen collection (procedure) (no date) [facility] (missing) (missing) (missing) Result panel 3270 Specimen collection (procedure) (no date) [facility] (missing) (missing) (missing) Result panel 3271 Specimen collection (procedure) (no date) [facility] (missing) (missing) (missing) Result panel 3272 Specimen collection (procedure) (no date) [facility] (missing) (missing) (missing) Result panel 3273 Specimen collection (procedure) (no date) [facility] (missing) (missing) (missing) Result panel 3274 Specimen collection (procedure) (no date) [facility] (missing) (missing) (missing) Result panel 3275 Specimen collection (procedure) (no date) [facility] (missing) (missing) (missing) Result panel 3276 Specimen collection (procedure) (no date) [facility] (missing) (missing) (missing) Result panel 3277 Specimen collection (procedure) (no date) [facility] (missing) (missing) (missing) Result panel 3278 Specimen collection (procedure) (no date) [facility] (missing) (missing) (missing) Result panel 3279 Specimen collection (procedure) (no date) [facility] (missing) (missing) (missing) Result panel 3280 Specimen collection (procedure) (no date) [facility] (missing) (missing) (missing) Result panel 3281 Specimen collection (procedure) (no date) [facility] (missing) (missing) (missing) Result panel 3282 Specimen collection (procedure) (no date) [facility] (missing) (missing) (missing) Result panel 3283 Specimen collection (procedure) (no date) [facility] (missing) (missing) (missing) Result panel 3284 Specimen collection (procedure) (no date) [facility] (missing) (missing) (missing) Result panel 3285 Specimen collection (procedure) (no date) [facility] (missing) (missing) (missing) Result panel 3286 Specimen collection (procedure) (no date) [facility] (missing) (missing) (missing) Result panel 3287 Specimen collection (procedure) (no date) [facility] (missing) (missing) (missing) Result panel 3288 Specimen collection (procedure) (no date) [facility] (missing) (missing) (missing) Result panel 3289 Specimen collection (procedure) (no date) [facility] (missing) (missing) (missing) Result panel 3290 Specimen collection (procedure) (no date) [facility] (missing) (missing) (missing) Result panel 3291 Specimen collection (procedure) (no date) [facility] (missing) (missing) (missing) Result panel 3292 Specimen collection (procedure) (no date) [facility] (missing) (missing) (missing) Result panel 3293 Specimen collection (procedure) (no date) [facility] (missing) (missing) (missing) Result panel 3294 Specimen collection (procedure) (no date) [facility] (missing) (missing) (missing) Result panel 3295 Specimen collection (procedure) (no date) [facility] (missing) (missing) (missing) Result panel 3296 Specimen collection (procedure) (no date) [facility] (missing) (missing) (missing) Result panel 3297 Specimen collection (procedure) (no date) [facility] (missing) (missing) (missing) Result panel 3298 Specimen collection (procedure) (no date) [facility] (missing) (missing) (missing) Result panel 3299 Specimen collection (procedure) (no date) [facility] (missing) (missing) (missing) Result panel 3300 Specimen collection (procedure) (no date) [facility] (missing) (missing) (missing) Result panel 3301 Specimen collection (procedure) (no date) [facility] (missing) (missing) (missing) Result panel 3302 Specimen collection (procedure) (no date) [facility] (missing) (missing) (missing) Result panel 3303 Specimen collection (procedure) (no date) [facility] (missing) (missing) (missing) Result panel 3304 Specimen collection (procedure) (no date) [facility] (missing) (missing) (missing) Result panel 3305 Specimen collection (procedure) (no date) [facility] (missing) (missing) (missing) Result panel 3306 Specimen collection (procedure) (no date) [facility] (missing) (missing) (missing) Result panel 3307 Specimen collection (procedure) (no date) [facility] (missing) (missing) (missing) Result panel 3308 Specimen collection (procedure) (no date) [facility] (missing) (missing) (missing) Result panel 3309 Specimen collection (procedure) (no date) [facility] (missing) (missing) (missing) Result panel 3310 Specimen collection (procedure) (no date) [facility] (missing) (missing) (missing) Result panel 3311 Specimen collection (procedure) (no date) [facility] (missing) (missing) (missing) Result panel 3312 Specimen collection (procedure) (no date) [facility] (missing) (missing) (missing) Result panel 3313 Specimen collection (procedure) (no date) [facility] (missing) (missing) (missing) Result panel 3314 Specimen collection (procedure) (no date) [facility] (missing) (missing) (missing) Result panel 3315 Specimen collection (procedure) (no date) [facility] (missing) (missing) (missing) Result panel 3316 Specimen collection (procedure) (no date) [facility] (missing) (missing) (missing) Result panel 3317 Specimen collection (procedure) (no date) [facility] (missing) (missing) (missing) Result panel 3318 Specimen collection (procedure) (no date) [facility] (missing) (missing) (missing) Result panel 3319 Specimen collection (procedure) (no date) [facility] (missing) (missing) (missing) Result panel 3320 Specimen collection (procedure) (no date) [facility] (missing) (missing) (missing) Result panel 3321 Specimen collection (procedure) (no date) [facility] (missing) (missing) (missing) Result panel 3322 Specimen collection (procedure) (no date) [facility] (missing) (missing) (missing) Result panel 3323 Specimen collection (procedure) (no date) [facility] (missing) (missing) (missing) Result panel 3324 Specimen collection (procedure) (no date) [facility] (missing) (missing) (missing) Result panel 3325 Specimen collection (procedure) (no date) [facility] (missing) (missing) (missing) Result panel 3326 Specimen collection (procedure) (no date) [facility] (missing) (missing) (missing) Result panel 3327 Specimen collection (procedure) (no date) [facility] (missing) (missing) (missing) Result panel 3328 Specimen collection (procedure) (no date) [facility] (missing) (missing) (missing) Result panel 3329 Specimen collection (procedure) (no date) [facility] (missing) (missing) (missing) Result panel 3330 Specimen collection (procedure) (no date) [facility] (missing) (missing) (missing) Result panel 3331 Specimen collection (procedure) (no date) [facility] (missing) (missing) (missing) Result panel 3332 Specimen collection (procedure) (no date) [facility] (missing) (missing) (missing) Result panel 3333 Specimen collection (procedure) (no date) [facility] (missing) (missing) (missing) Result panel 3334 Specimen collection (procedure) (no date) [facility] (missing) (missing) (missing) Result panel 3335 Specimen collection (procedure) (no date) [facility] (missing) (missing) (missing) Result panel 3336 Specimen collection (procedure) (no date) [facility] (missing) (missing) (missing) Result panel 3337 Specimen collection (procedure) (no date) [facility] (missing) (missing) (missing) Result panel 3338 Specimen collection (procedure) (no date) [facility] (missing) (missing) (missing) Result panel 3339 Specimen collection (procedure) (no date) [facility] (missing) (missing) (missing) Result panel 3340 Specimen collection (procedure) (no date) [facility] (missing) (missing) (missing) Result panel 3341 Specimen collection (procedure) (no date) [facility] (missing) (missing) (missing) Result panel 3342 Specimen collection (procedure) (no date) [facility] (missing) (missing) (missing) Result panel 3343 Specimen collection (procedure) (no date) [facility] (missing) (missing) (missing) Result panel 3344 Specimen collection (procedure) (no date) [facility] (missing) (missing) (missing) Result panel 3345 Specimen collection (procedure) (no date) [facility] (missing) (missing) (missing) Result panel 3346 Specimen collection (procedure) (no date) [facility] (missing) (missing) (missing) Result panel 3347 Specimen collection (procedure) (no date) [facility] (missing) (missing) (missing) Result panel 3348 Specimen collection (procedure) (no date) [facility] (missing) (missing) (missing) Result panel 3349 Specimen collection (procedure) (no date) [facility] (missing) (missing) (missing) Result panel 3350 Specimen collection (procedure) (no date) [facility] (missing) (missing) (missing) Result panel 3351 Specimen collection (procedure) (no date) [facility] (missing) (missing) (missing) Result panel 3352 Specimen collection (procedure) (no date) [facility] (missing) (missing) (missing) Result panel 3353 Specimen collection (procedure) (no date) [facility] (missing) (missing) (missing) Result panel 3354 Specimen collection (procedure) (no date) [facility] (missing) (missing) (missing) Result panel 3355 Specimen collection (procedure) (no date) [facility] (missing) (missing) (missing) Result panel 3356 Specimen collection (procedure) (no date) [facility] (missing) (missing) (missing) Result panel 3357 Specimen collection (procedure) (no date) [facility] (missing) (missing) (missing) Result panel 3358 Specimen collection (procedure) (no date) [facility] (missing) (missing) (missing) Result panel 3359 Specimen collection (procedure) (no date) [facility] (missing) (missing) (missing) Result panel 3360 Specimen collection (procedure) (no date) [facility] (missing) (missing) (missing) Result panel 3361 Specimen collection (procedure) (no date) [facility] (missing) (missing) (missing) Result panel 3362 Specimen collection (procedure) (no date) [facility] (missing) (missing) (missing) Result panel 3363 Specimen collection (procedure) (no date) [facility] (missing) (missing) (missing) Result panel 3364 Specimen collection (procedure) (no date) [facility] (missing) (missing) (missing) Result panel 3365 Specimen collection (procedure) (no date) [facility] (missing) (missing) (missing) Result panel 3366 Specimen collection (procedure) (no date) [facility] (missing) (missing) (missing) Result panel 3367 Specimen collection (procedure) (no date) [facility] (missing) (missing) (missing) Result panel 3368 Specimen collection (procedure) (no date) [facility] (missing) (missing) (missing) Result panel 3369 Specimen collection (procedure) (no date) [facility] (missing) (missing) (missing) Result panel 3370 Specimen collection (procedure) (no date) [facility] (missing) (missing) (missing) Result panel 3371 Specimen collection (procedure) (no date) [facility] (missing) (missing) (missing) Result panel 3372 Specimen collection (procedure) (no date) [facility] (missing) (missing) (missing) Result panel 3373 Specimen collection (procedure) (no date) [facility] (missing) (missing) (missing) Result panel 3374 Specimen collection (procedure) (no date) [facility] (missing) (missing) (missing) Result panel 3375 Specimen collection (procedure) (no date) [facility] (missing) (missing) (missing) Result panel 3376 Specimen collection (procedure) (no date) [facility] (missing) (missing) (missing) Result panel 3377 Specimen collection (procedure) (no date) [facility] (missing) (missing) (missing) Result panel 3378 Specimen collection (procedure) (no date) [facility] (missing) (missing) (missing) Result panel 3379 Specimen collection (procedure) (no date) [facility] (missing) (missing) (missing) Result panel 3380 Specimen collection (procedure) (no date) [facility] (missing) (missing) (missing) Result panel 3381 Specimen collection (procedure) (no date) [facility] (missing) (missing) (missing) Result panel 3382 Specimen collection (procedure) (no date) [facility] (missing) (missing) (missing) Result panel 3383 Specimen collection (procedure) (no date) [facility] (missing) (missing) (missing) Result panel 3384 Specimen collection (procedure) (no date) [facility] (missing) (missing) (missing) Result panel 3385 Specimen collection (procedure) (no date) [facility] (missing) (missing) (missing) Result panel 3386 Specimen collection (procedure) (no date) [facility] (missing) (missing) (missing) Result panel 3387 Specimen collection (procedure) (no date) [facility] (missing) (missing) (missing) Result panel 3388 Specimen collection (procedure) (no date) [facility] (missing) (missing) (missing) Result panel 3389 Specimen collection (procedure) (no date) [facility] (missing) (missing) (missing) Result panel 3390 Specimen collection (procedure) (no date) [facility] (missing) (missing) (missing) Result panel 3391 Specimen collection (procedure) (no date) [facility] (missing) (missing) (missing) Result panel 3392 Specimen collection (procedure) (no date) [facility] (missing) (missing) (missing) Result panel 3393 Specimen collection (procedure) (no date) [facility] (missing) (missing) (missing) Result panel 3394 Specimen collection (procedure) (no date) [facility] (missing) (missing) (missing) Result panel 3395 Specimen collection (procedure) (no date) [facility] (missing) (missing) (missing) Result panel 3396 Specimen collection (procedure) (no date) [facility] (missing) (missing) (missing) Result panel 3397 Specimen collection (procedure) (no date) [facility] (missing) (missing) (missing) Result panel 3398 Specimen collection (procedure) (no date) [facility] (missing) (missing) (missing) Result panel 3399 Specimen collection (procedure) (no date) [facility] (missing) (missing) (missing) Result panel 3400 Specimen collection (procedure) (no date) [facility] (missing) (missing) (missing) Result panel 3401 Specimen collection (procedure) (no date) [facility] (missing) (missing) (missing) Result panel 3402 Specimen collection (procedure) (no date) [facility] (missing) (missing) (missing) Result panel 3403 Specimen collection (procedure) (no date) [facility] (missing) (missing) (missing) Result panel 3404 Specimen collection (procedure) (no date) [facility] (missing) (missing) (missing) Result panel 3405 Specimen collection (procedure) (no date) [facility] (missing) (missing) (missing) Result panel 3406 Specimen collection (procedure) (no date) [facility] (missing) (missing) (missing) Result panel 3407 Specimen collection (procedure) (no date) [facility] (missing) (missing) (missing) Result panel 3408 Specimen collection (procedure) (no date) [facility] (missing) (missing) (missing) Result panel 3409 Specimen collection (procedure) (no date) [facility] (missing) (missing) (missing) Result panel 3410 Specimen collection (procedure) (no date) [facility] (missing) (missing) (missing) Result panel 3411 Specimen collection (procedure) (no date) [facility] (missing) (missing) (missing) Result panel 3412 Specimen collection (procedure) (no date) [facility] (missing) (missing) (missing) Result panel 3413 Specimen collection (procedure) (no date) [facility] (missing) (missing) (missing) Result panel 3414 Specimen collection (procedure) (no date) [facility] (missing) (missing) (missing) Result panel 3415 Specimen collection (procedure) (no date) [facility] (missing) (missing) (missing) Result panel 3416 Specimen collection (procedure) (no date) [facility] (missing) (missing) (missing) Result panel 3417 Specimen collection (procedure) (no date) [facility] (missing) (missing) (missing) Result panel 3418 Specimen collection (procedure) (no date) [facility] (missing) (missing) (missing) Result panel 3419 Specimen collection (procedure) (no date) [facility] (missing) (missing) (missing) Result panel 3420 Specimen collection (procedure) (no date) [facility] (missing) (missing) (missing) Result panel 3421 Specimen collection (procedure) (no date) [facility] (missing) (missing) (missing) Result panel 3422 Specimen collection (procedure) (no date) [facility] (missing) (missing) (missing) Result panel 3423 Specimen collection (procedure) (no date) [facility] (missing) (missing) (missing) Result panel 3424 Specimen collection (procedure) (no date) [facility] (missing) (missing) (missing) Result panel 3425 Specimen collection (procedure) (no date) [facility] (missing) (missing) (missing) Result panel 3426 Specimen collection (procedure) (no date) [facility] (missing) (missing) (missing) Result panel 3427 Specimen collection (procedure) (no date) [facility] (missing) (missing) (missing) Result panel 3428 Specimen collection (procedure) (no date) [facility] (missing) (missing) (missing) Result panel 3429 Specimen collection (procedure) (no date) [facility] (missing) (missing) (missing) Result panel 3430 Specimen collection (procedure) (no date) [facility] (missing) (missing) (missing) Result panel 3431 Specimen collection (procedure) (no date) [facility] (missing) (missing) (missing) Result panel 3432 Specimen collection (procedure) (no date) [facility] (missing) (missing) (missing) Result panel 3433 Specimen collection (procedure) (no date) [facility] (missing) (missing) (missing) Result panel 3434 Specimen collection (procedure) (no date) [facility] (missing) (missing) (missing) Result panel 3435 Specimen collection (procedure) (no date) [facility] (missing) (missing) (missing) Result panel 3436 Specimen collection (procedure) (no date) [facility] (missing) (missing) (missing) Result panel 3437 Specimen collection (procedure) (no date) [facility] (missing) (missing) (missing) Result panel 3438 Specimen collection (procedure) (no date) [facility] (missing) (missing) (missing) Result panel 3439 Specimen collection (procedure) (no date) [facility] (missing) (missing) (missing) Result panel 3440 Specimen collection (procedure) (no date) [facility] (missing) (missing) (missing) Result panel 3441 Specimen collection (procedure) (no date) [facility] (missing) (missing) (missing) Result panel 3442 Specimen collection (procedure) (no date) [facility] (missing) (missing) (missing) Result panel 3443 Specimen collection (procedure) (no date) [facility] (missing) (missing) (missing) Result panel 3444 Specimen collection (procedure) (no date) [facility] (missing) (missing) (missing) Result panel 3445 Specimen collection (procedure) (no date) [facility] (missing) (missing) (missing) Result panel 3446 Specimen collection (procedure) (no date) [facility] (missing) (missing) (missing) Result panel 3447 Specimen collection (procedure) (no date) [facility] (missing) (missing) (missing) Result panel 3448 Specimen collection (procedure) (no date) [facility] (missing) (missing) (missing) Result panel 3449 Specimen collection (procedure) (no date) [facility] (missing) (missing) (missing) Result panel 3450 Specimen collection (procedure) (no date) [facility] (missing) (missing) (missing) Result panel 3451 Specimen collection (procedure) (no date) [facility] (missing) (missing) (missing) Result panel 3452 Specimen collection (procedure) (no date) [facility] (missing) (missing) (missing) Result panel 3453 Specimen collection (procedure) (no date) [facility] (missing) (missing) (missing) Result panel 3454 Specimen collection (procedure) (no date) [facility] (missing) (missing) (missing) Result panel 3455 Specimen collection (procedure) (no date) [facility] (missing) (missing) (missing) Result panel 3456 Specimen collection (procedure) (no date) [facility] (missing) (missing) (missing) Result panel 3457 Specimen collection (procedure) (no date) [facility] (missing) (missing) (missing) Result panel 3458 Specimen collection (procedure) (no date) [facility] (missing) (missing) (missing) Result panel 3459 Specimen collection (procedure) (no date) [facility] (missing) (missing) (missing) Result panel 3460 Specimen collection (procedure) (no date) [facility] (missing) (missing) (missing) Result panel 3461 Specimen collection (procedure) (no date) [facility] (missing) (missing) (missing) Result panel 3462 Specimen collection (procedure) (no date) [facility] (missing) (missing) (missing) Result panel 3463 Specimen collection (procedure) (no date) [facility] (missing) (missing) (missing) Result panel 3464 Specimen collection (procedure) (no date) [facility] (missing) (missing) (missing) Result panel 3465 Specimen collection (procedure) (no date) [facility] (missing) (missing) (missing) Result panel 3466 Specimen collection (procedure) (no date) [facility] (missing) (missing) (missing) Result panel 3467 Specimen collection (procedure) (no date) [facility] (missing) (missing) (missing) Result panel 3468 Specimen collection (procedure) (no date) [facility] (missing) (missing) (missing) Result panel 3469 Specimen collection (procedure) (no date) [facility] (missing) (missing) (missing) Result panel 3470 Specimen collection (procedure) (no date) [facility] (missing) (missing) (missing) Result panel 3471 Specimen collection (procedure) (no date) [facility] (missing) (missing) (missing) Result panel 3472 Specimen collection (procedure) (no date) [facility] (missing) (missing) (missing) Result panel 3473 Specimen collection (procedure) (no date) [facility] (missing) (missing) (missing) Result panel 3474 Specimen collection (procedure) (no date) [facility] (missing) (missing) (missing) Result panel 3475 Specimen collection (procedure) (no date) [facility] (missing) (missing) (missing) Result panel 3476 Specimen collection (procedure) (no date) [facility] (missing) (missing) (missing) Result panel 3477 Specimen collection (procedure) (no date) [facility] (missing) (missing) (missing) Result panel 3478 Specimen collection (procedure) (no date) [facility] (missing) (missing) (missing) Result panel 3479 Specimen collection (procedure) (no date) [facility] (missing) (missing) (missing) Result panel 3480 Specimen collection (procedure) (no date) [facility] (missing) (missing) (missing) Result panel 3481 Specimen collection (procedure) (no date) [facility] (missing) (missing) (missing) Result panel 3482 Specimen collection (procedure) (no date) [facility] (missing) (missing) (missing) Result panel 3483 Specimen collection (procedure) (no date) [facility] (missing) (missing) (missing) Result panel 3484 Specimen collection (procedure) (no date) [facility] (missing) (missing) (missing) Result panel 3485 Specimen collection (procedure) (no date) [facility] (missing) (missing) (missing) Result panel 3486 Specimen collection (procedure) (no date) [facility] (missing) (missing) (missing) Result panel 3487 Specimen collection (procedure) (no date) [facility] (missing) (missing) (missing) Result panel 3488 Specimen collection (procedure) (no date) [facility] (missing) (missing) (missing) Result panel 3489 Specimen collection (procedure) (no date) [facility] (missing) (missing) (missing) Result panel 3490 Specimen collection (procedure) (no date) [facility] (missing) (missing) (missing) Result panel 3491 Specimen collection (procedure) (no date) [facility] (missing) (missing) (missing) Result panel 3492 Specimen collection (procedure) (no date) [facility] (missing) (missing) (missing) Result panel 3493 Specimen collection (procedure) (no date) [facility] (missing) (missing) (missing) Result panel 3494 Specimen collection (procedure) (no date) [facility] (missing) (missing) (missing) Result panel 3495 Specimen collection (procedure) (no date) [facility] (missing) (missing) (missing) Result panel 3496 Specimen collection (procedure) (no date) [facility] (missing) (missing) (missing) Result panel 3497 Specimen collection (procedure) (no date) [facility] (missing) (missing) (missing) Result panel 3498 Specimen collection (procedure) (no date) [facility] (missing) (missing) (missing) Result panel 3499 Specimen collection (procedure) (no date) [facility] (missing) (missing) (missing) Result panel 3500 Specimen collection (procedure) (no date) [facility] (missing) (missing) (missing) Result panel 3501 Specimen collection (procedure) (no date) [facility] (missing) (missing) (missing) Result panel 3502 Specimen collection (procedure) (no date) [facility] (missing) (missing) (missing) Result panel 3503 Specimen collection (procedure) (no date) [facility] (missing) (missing) (missing) Result panel 3504 Specimen collection (procedure) (no date) [facility] (missing) (missing) (missing) Result panel 3505 Specimen collection (procedure) (no date) [facility] (missing) (missing) (missing) Result panel 3506 Specimen collection (procedure) (no date) [facility] (missing) (missing) (missing) Result panel 3507 Specimen collection (procedure) (no date) [facility] (missing) (missing) (missing) Result panel 3508 Specimen collection (procedure) (no date) [facility] (missing) (missing) (missing) Result panel 3509 Specimen collection (procedure) (no date) [facility] (missing) (missing) (missing) Result panel 3510 Specimen collection (procedure) (no date) [facility] (missing) (missing) (missing) Result panel 3511 Specimen collection (procedure) (no date) [facility] (missing) (missing) (missing) Result panel 3512 Specimen collection (procedure) (no date) [facility] (missing) (missing) (missing) Result panel 3513 Specimen collection (procedure) (no date) [facility] (missing) (missing) (missing) Result panel 3514 Specimen collection (procedure) (no date) [facility] (missing) (missing) (missing) Result panel 3515 Specimen collection (procedure) (no date) [facility] (missing) (missing) (missing) Result panel 3516 Specimen collection (procedure) (no date) [facility] (missing) (missing) (missing) Result panel 3517 Specimen collection (procedure) (no date) [facility] (missing) (missing) (missing) Result panel 3518 Specimen collection (procedure) (no date) [facility] (missing) (missing) (missing) Result panel 3519 Specimen collection (procedure) (no date) [facility] (missing) (missing) (missing) Result panel 3520 Specimen collection (procedure) (no date) [facility] (missing) (missing) (missing) Result panel 3521 Specimen collection (procedure) (no date) [facility] (missing) (missing) (missing) Result panel 3522 Specimen collection (procedure) (no date) [facility] (missing) (missing) (missing) Result panel 3523 Specimen collection (procedure) (no date) [facility] (missing) (missing) (missing) Result panel 3524 Specimen collection (procedure) (no date) [facility] (missing) (missing) (missing) Result panel 3525 Specimen collection (procedure) (no date) [facility] (missing) (missing) (missing) Result panel 3526 Specimen collection (procedure) (no date) [facility] (missing) (missing) (missing) Result panel 3527 Specimen collection (procedure) (no date) [facility] (missing) (missing) (missing) Result panel 3528 Specimen collection (procedure) (no date) [facility] (missing) (missing) (missing) Result panel 3529 Specimen collection (procedure) (no date) [facility] (missing) (missing) (missing) Result panel 3530 Specimen collection (procedure) (no date) [facility] (missing) (missing) (missing) Result panel 3531 Specimen collection (procedure) (no date) [facility] (missing) (missing) (missing) Result panel 3532 Specimen collection (procedure) (no date) [facility] (missing) (missing) (missing) Result panel 3533 Specimen collection (procedure) (no date) [facility] (missing) (missing) (missing) Result panel 3534 Specimen collection (procedure) (no date) [facility] (missing) (missing) (missing) Result panel 3535 Specimen collection (procedure) (no date) [facility] (missing) (missing) (missing) Result panel 3536 Specimen collection (procedure) (no date) [facility] (missing) (missing) (missing) Result panel 3537 Specimen collection (procedure) (no date) [facility] (missing) (missing) (missing) Result panel 3538 Specimen collection (procedure) (no date) [facility] (missing) (missing) (missing) Result panel 3539 Specimen collection (procedure) (no date) [facility] (missing) (missing) (missing) Result panel 3540 Specimen collection (procedure) (no date) [facility] (missing) (missing) (missing) Result panel 3541 Specimen collection (procedure) (no date) [facility] (missing) (missing) (missing) Result panel 3542 Specimen collection (procedure) (no date) [facility] (missing) (missing) (missing) Result panel 3543 Specimen collection (procedure) (no date) [facility] (missing) (missing) (missing) Result panel 3544 Specimen collection (procedure) (no date) [facility] (missing) (missing) (missing) Result panel 3545 Specimen collection (procedure) (no date) [facility] (missing) (missing) (missing) Result panel 3546 Specimen collection (procedure) (no date) [facility] (missing) (missing) (missing) Result panel 3547 Specimen collection (procedure) (no date) [facility] (missing) (missing) (missing) Result panel 3548 Specimen collection (procedure) (no date) [facility] (missing) (missing) (missing) Result panel 3549 Specimen collection (procedure) (no date) [facility] (missing) (missing) (missing) Result panel 3550 Specimen collection (procedure) (no date) [facility] (missing) (missing) (missing) Result panel 3551 Specimen collection (procedure) (no date) [facility] (missing) (missing) (missing) Result panel 3552 Specimen collection (procedure) (no date) [facility] (missing) (missing) (missing) Result panel 3553 Specimen collection (procedure) (no date) [facility] (missing) (missing) (missing) Result panel 3554 Specimen collection (procedure) (no date) [facility] (missing) (missing) (missing) Result panel 3555 Specimen collection (procedure) (no date) [facility] (missing) (missing) (missing) Result panel 3556 Specimen collection (procedure) (no date) [facility] (missing) (missing) (missing) Result panel 3557 Specimen collection (procedure) (no date) [facility] (missing) (missing) (missing) Result panel 3558 Specimen collection (procedure) (no date) [facility] (missing) (missing) (missing) Result panel 3559 Specimen collection (procedure) (no date) [facility] (missing) (missing) (missing) Result panel 3560 Specimen collection (procedure) (no date) [facility] (missing) (missing) (missing) Result panel 3561 Specimen collection (procedure) (no date) [facility] (missing) (missing) (missing) Result panel 3562 Specimen collection (procedure) (no date) [facility] (missing) (missing) (missing) Result panel 3563 Specimen collection (procedure) (no date) [facility] (missing) (missing) (missing) Result panel 3564 Specimen collection (procedure) (no date) [facility] (missing) (missing) (missing) Result panel 3565 Specimen collection (procedure) (no date) [facility] (missing) (missing) (missing) Result panel 3566 Specimen collection (procedure) (no date) [facility] (missing) (missing) (missing) Result panel 3567 Specimen collection (procedure) (no date) [facility] (missing) (missing) (missing) Result panel 3568 Specimen collection (procedure) (no date) [facility] (missing) (missing) (missing) Result panel 3569 Specimen collection (procedure) (no date) [facility] (missing) (missing) (missing) Result panel 3570 Specimen collection (procedure) (no date) [facility] (missing) (missing) (missing) Result panel 3571 Specimen collection (procedure) (no date) [facility] (missing) (missing) (missing) Result panel 3572 Specimen collection (procedure) (no date) [facility] (missing) (missing) (missing) Result panel 3573 Specimen collection (procedure) (no date) [facility] (missing) (missing) (missing) Result panel 3574 Specimen collection (procedure) (no date) [facility] (missing) (missing) (missing) Result panel 3575 Specimen collection (procedure) (no date) [facility] (missing) (missing) (missing) Result panel 3576 Specimen collection (procedure) (no date) [facility] (missing) (missing) (missing) Result panel 3577 Specimen collection (procedure) (no date) [facility] (missing) (missing) (missing) Result panel 3578 Specimen collection (procedure) (no date) [facility] (missing) (missing) (missing) Result panel 3579 Specimen collection (procedure) (no date) [facility] (missing) (missing) (missing) Result panel 3580 Specimen collection (procedure) (no date) [facility] (missing) (missing) (missing) Result panel 3581 Specimen collection (procedure) (no date) [facility] (missing) (missing) (missing) Result panel 3582 Specimen collection (procedure) (no date) [facility] (missing) (missing) (missing) Result panel 3583 Specimen collection (procedure) (no date) [facility] (missing) (missing) (missing) Result panel 3584 Specimen collection (procedure) (no date) [facility] (missing) (missing) (missing) Result panel 3585 Specimen collection (procedure) (no date) [facility] (missing) (missing) (missing) Result panel 3586 Specimen collection (procedure) (no date) [facility] (missing) (missing) (missing) Result panel 3587 Specimen collection (procedure) (no date) [facility] (missing) (missing) (missing) Result panel 3588 Specimen collection (procedure) (no date) [facility] (missing) (missing) (missing) Result panel 3589 Specimen collection (procedure) (no date) [facility] (missing) (missing) (missing) Result panel 3590 Specimen collection (procedure) (no date) [facility] (missing) (missing) (missing) Result panel 3591 Specimen collection (procedure) (no date) [facility] (missing) (missing) (missing) Result panel 3592 Specimen collection (procedure) (no date) [facility] (missing) (missing) (missing) Result panel 3593 Specimen collection (procedure) (no date) [facility] (missing) (missing) (missing) Result panel 3594 Specimen collection (procedure) (no date) [facility] (missing) (missing) (missing) Result panel 3595 Specimen collection (procedure) (no date) [facility] (missing) (missing) (missing) Result panel 3596 Specimen collection (procedure) (no date) [facility] (missing) (missing) (missing) Result panel 3597 Specimen collection (procedure) (no date) [facility] (missing) (missing) (missing) Result panel 3598 Specimen collection (procedure) (no date) [facility] (missing) (missing) (missing) Result panel 3599 Specimen collection (procedure) (no date) [facility] (missing) (missing) (missing) Result panel 3600 Specimen collection (procedure) (no date) [facility] (missing) (missing) (missing) Result panel 3601 Specimen collection (procedure) (no date) [facility] (missing) (missing) (missing) Result panel 3602 Specimen collection (procedure) (no date) [facility] (missing) (missing) (missing) Result panel 3603 Specimen collection (procedure) (no date) [facility] (missing) (missing) (missing) Result panel 3604 Specimen collection (procedure) (no date) [facility] (missing) (missing) (missing) Result panel 3605 Specimen collection (procedure) (no date) [facility] (missing) (missing) (missing) Result panel 3606 Specimen collection (procedure) (no date) [facility] (missing) (missing) (missing) Result panel 3607 Specimen collection (procedure) (no date) [facility] (missing) (missing) (missing) Result panel 3608 Specimen collection (procedure) (no date) [facility] (missing) (missing) (missing) Result panel 3609 Specimen collection (procedure) (no date) [facility] (missing) (missing) (missing) Result panel 3610 Specimen collection (procedure) (no date) [facility] (missing) (missing) (missing) Result panel 3611 Specimen collection (procedure) (no date) [facility] (missing) (missing) (missing) Result panel 3612 Specimen collection (procedure) (no date) [facility] (missing) (missing) (missing) Result panel 3613 Specimen collection (procedure) (no date) [facility] (missing) (missing) (missing) Result panel 3614 Specimen collection (procedure) (no date) [facility] (missing) (missing) (missing) Result panel 3615 Specimen collection (procedure) (no date) [facility] (missing) (missing) (missing) Result panel 3616 Specimen collection (procedure) (no date) [facility] (missing) (missing) (missing) Result panel 3617 Specimen collection (procedure) (no date) [facility] (missing) (missing) (missing) Result panel 3618 Specimen collection (procedure) (no date) [facility] (missing) (missing) (missing) Result panel 3619 Specimen collection (procedure) (no date) [facility] (missing) (missing) (missing) Result panel 3620 Specimen collection (procedure) (no date) [facility] (missing) (missing) (missing) Result panel 3621 Specimen collection (procedure) (no date) [facility] (missing) (missing) (missing) Result panel 3622 Specimen collection (procedure) (no date) [facility] (missing) (missing) (missing) Result panel 3623 Specimen collection (procedure) (no date) [facility] (missing) (missing) (missing) Result panel 3624 Specimen collection (procedure) (no date) [facility] (missing) (missing) (missing) Result panel 3625 Specimen collection (procedure) (no date) [facility] (missing) (missing) (missing) Result panel 3626 Specimen collection (procedure) (no date) [facility] (missing) (missing) (missing) Result panel 3627 Specimen collection (procedure) (no date) [facility] (missing) (missing) (missing) Result panel 3628 Specimen collection (procedure) (no date) [facility] (missing) (missing) (missing) Result panel 3629 Specimen collection (procedure) (no date) [facility] (missing) (missing) (missing) Result panel 3630 Specimen collection (procedure) (no date) [facility] (missing) (missing) (missing) Result panel 3631 Specimen collection (procedure) (no date) [facility] (missing) (missing) (missing) Result panel 3632 Specimen collection (procedure) (no date) [facility] (missing) (missing) (missing) Result panel 3633 Specimen collection (procedure) (no date) [facility] (missing) (missing) (missing) Result panel 3634 Specimen collection (procedure) (no date) [facility] (missing) (missing) (missing) Result panel 3635 Specimen collection (procedure) (no date) [facility] (missing) (missing) (missing) Result panel 3636 Specimen collection (procedure) (no date) [facility] (missing) (missing) (missing) Result panel 3637 Specimen collection (procedure) (no date) [facility] (missing) (missing) (missing) Result panel 3638 Specimen collection (procedure) (no date) [facility] (missing) (missing) (missing) Result panel 3639 Specimen collection (procedure) (no date) [facility] (missing) (missing) (missing) Result panel 3640 Specimen collection (procedure) (no date) [facility] (missing) (missing) (missing) Result panel 3641 Specimen collection (procedure) (no date) [facility] (missing) (missing) (missing) Result panel 3642 Specimen collection (procedure) (no date) [facility] (missing) (missing) (missing) Result panel 3643 Specimen collection (procedure) (no date) [facility] (missing) (missing) (missing) Result panel 3644 Specimen collection (procedure) (no date) [facility] (missing) (missing) (missing) Result panel 3645 Specimen collection (procedure) (no date) [facility] (missing) (missing) (missing) Result panel 3646 Specimen collection (procedure) (no date) [facility] (missing) (missing) (missing) Result panel 3647 Specimen collection (procedure) (no date) [facility] (missing) (missing) (missing) Result panel 3648 Specimen collection (procedure) (no date) [facility] (missing) (missing) (missing) Result panel 3649 Specimen collection (procedure) (no date) [facility] (missing) (missing) (missing) Result panel 3650 Specimen collection (procedure) (no date) [facility] (missing) (missing) (missing) Result panel 3651 Specimen collection (procedure) (no date) [facility] (missing) (missing) (missing) Result panel 3652 Specimen collection (procedure) (no date) [facility] (missing) (missing) (missing) Result panel 3653 Specimen collection (procedure) (no date) [facility] (missing) (missing) (missing) Result panel 3654 Specimen collection (procedure) (no date) [facility] (missing) (missing) (missing) Result panel 3655 Specimen collection (procedure) (no date) [facility] (missing) (missing) (missing) Result panel 3656 Specimen collection (procedure) (no date) [facility] (missing) (missing) (missing) Result panel 3657 Specimen collection (procedure) (no date) [facility] (missing) (missing) (missing) Result panel 3658 Specimen collection (procedure) (no date) [facility] (missing) (missing) (missing) Result panel 3659 Specimen collection (procedure) (no date) [facility] (missing) (missing) (missing) Result panel 3660 Specimen collection (procedure) (no date) [facility] (missing) (missing) (missing) Result panel 3661 Specimen collection (procedure) (no date) [facility] (missing) (missing) (missing) Result panel 3662 Specimen collection (procedure) (no date) [facility] (missing) (missing) (missing) Result panel 3663 Specimen collection (procedure) (no date) [facility] (missing) (missing) (missing) Result panel 3664 Specimen collection (procedure) (no date) [facility] (missing) (missing) (missing) Result panel 3665 Specimen collection (procedure) (no date) [facility] (missing) (missing) (missing) Result panel 3666 Specimen collection (procedure) (no date) [facility] (missing) (missing) (missing) Result panel 3667 Specimen collection (procedure) (no date) [facility] (missing) (missing) (missing) Result panel 3668 Specimen collection (procedure) (no date) [facility] (missing) (missing) (missing) Result panel 3669 Specimen collection (procedure) (no date) [facility] (missing) (missing) (missing) Result panel 3670 Specimen collection (procedure) (no date) [facility] (missing) (missing) (missing) Result panel 3671 Specimen collection (procedure) (no date) [facility] (missing) (missing) (missing) Result panel 3672 Specimen collection (procedure) (no date) [facility] (missing) (missing) (missing) Result panel 3673 Specimen collection (procedure) (no date) [facility] (missing) (missing) (missing) Result panel 3674 Specimen collection (procedure) (no date) [facility] (missing) (missing) (missing) Result panel 3675 Specimen collection (procedure) (no date) [facility] (missing) (missing) (missing) Result panel 3676 Specimen collection (procedure) (no date) [facility] (missing) (missing) (missing) Result panel 3677 Specimen collection (procedure) (no date) [facility] (missing) (missing) (missing) Result panel 3678 Specimen collection (procedure) (no date) [facility] (missing) (missing) (missing) Result panel 3679 Specimen collection (procedure) (no date) [facility] (missing) (missing) (missing) Result panel 3680 Specimen collection (procedure) (no date) [facility] (missing) (missing) (missing) Result panel 3681 Specimen collection (procedure) (no date) [facility] (missing) (missing) (missing) Result panel 3682 Specimen collection (procedure) (no date) [facility] (missing) (missing) (missing) Result panel 3683 Specimen collection (procedure) (no date) [facility] (missing) (missing) (missing) Result panel 3684 Specimen collection (procedure) (no date) [facility] (missing) (missing) (missing) Result panel 3685 Specimen collection (procedure) (no date) [facility] (missing) (missing) (missing) Result panel 3686 Specimen collection (procedure) (no date) [facility] (missing) (missing) (missing) Result panel 3687 Specimen collection (procedure) (no date) [facility] (missing) (missing) (missing) Result panel 3688 Specimen collection (procedure) (no date) [facility] (missing) (missing) (missing) Result panel 3689 Specimen collection (procedure) (no date) [facility] (missing) (missing) (missing) Result panel 3690 Specimen collection (procedure) (no date) [facility] (missing) (missing) (missing) Result panel 3691 Specimen collection (procedure) (no date) [facility] (missing) (missing) (missing) Result panel 3692 Specimen collection (procedure) (no date) [facility] (missing) (missing) (missing) Result panel 3693 Specimen collection (procedure) (no date) [facility] (missing) (missing) (missing) Result panel 3694 Specimen collection (procedure) (no date) [facility] (missing) (missing) (missing) Result panel 3695 Specimen collection (procedure) (no date) [facility] (missing) (missing) (missing) Result panel 3696 Specimen collection (procedure) (no date) [facility] (missing) (missing) (missing) Result panel 3697 Specimen collection (procedure) (no date) [facility] (missing) (missing) (missing) Result panel 3698 Specimen collection (procedure) (no date) [facility] (missing) (missing) (missing) Result panel 3699 Specimen collection (procedure) (no date) [facility] (missing) (missing) (missing) Result panel 3700 Specimen collection (procedure) (no date) [facility] (missing) (missing) (missing) Result panel 3701 Specimen collection (procedure) (no date) [facility] (missing) (missing) (missing) Result panel 3702 Specimen collection (procedure) (no date) [facility] (missing) (missing) (missing) Result panel 3703 Specimen collection (procedure) (no date) [facility] (missing) (missing) (missing) Result panel 3704 Specimen collection (procedure) (no date) [facility] (missing) (missing) (missing) Result panel 3705 Specimen collection (procedure) (no date) [facility] (missing) (missing) (missing) Result panel 3706 Specimen collection (procedure) (no date) [facility] (missing) (missing) (missing) Result panel 3707 Specimen collection (procedure) (no date) [facility] (missing) (missing) (missing) Result panel 3708 Specimen collection (procedure) (no date) [facility] (missing) (missing) (missing) Result panel 3709 Specimen collection (procedure) (no date) [facility] (missing) (missing) (missing) Result panel 3710 Specimen collection (procedure) (no date) [facility] (missing) (missing) (missing) Result panel 3711 Specimen collection (procedure) (no date) [facility] (missing) (missing) (missing) Result panel 3712 Specimen collection (procedure) (no date) [facility] (missing) (missing) (missing) Result panel 3713 Specimen collection (procedure) (no date) [facility] (missing) (missing) (missing) Result panel 3714 Specimen collection (procedure) (no date) [facility] (missing) (missing) (missing) Result panel 3715 Specimen collection (procedure) (no date) [facility] (missing) (missing) (missing) Result panel 3716 Specimen collection (procedure) (no date) [facility] (missing) (missing) (missing) Result panel 3717 Specimen collection (procedure) (no date) [facility] (missing) (missing) (missing) Result panel 3718 Specimen collection (procedure) (no date) [facility] (missing) (missing) (missing) Result panel 3719 Specimen collection (procedure) (no date) [facility] (missing) (missing) (missing) Result panel 3720 Specimen collection (procedure) (no date) [facility] (missing) (missing) (missing) Result panel 3721 Specimen collection (procedure) (no date) [facility] (missing) (missing) (missing) Result panel 3722 Specimen collection (procedure) (no date) [facility] (missing) (missing) (missing) Result panel 3723 Specimen collection (procedure) (no date) [facility] (missing) (missing) (missing) Result panel 3724 Specimen collection (procedure) (no date) [facility] (missing) (missing) (missing) Result panel 3725 Specimen collection (procedure) (no date) [facility] (missing) (missing) (missing) Result panel 3726 Specimen collection (procedure) (no date) [facility] (missing) (missing) (missing) Result panel 3727 Specimen collection (procedure) (no date) [facility] (missing) (missing) (missing) Result panel 3728 Specimen collection (procedure) (no date) [facility] (missing) (missing) (missing) Result panel 3729 Specimen collection (procedure) (no date) [facility] (missing) (missing) (missing) Result panel 3730 Specimen collection (procedure) (no date) [facility] (missing) (missing) (missing) Result panel 3731 Specimen collection (procedure) (no date) [facility] (missing) (missing) (missing) Result panel 3732 Specimen collection (procedure) (no date) [facility] (missing) (missing) (missing) Result panel 3733 Specimen collection (procedure) (no date) [facility] (missing) (missing) (missing) Result panel 3734 Specimen collection (procedure) (no date) [facility] (missing) (missing) (missing) Result panel 3735 Specimen collection (procedure) (no date) [facility] (missing) (missing) (missing) Result panel 3736 Specimen collection (procedure) (no date) [facility] (missing) (missing) (missing) Result panel 3737 Specimen collection (procedure) (no date) [facility] (missing) (missing) (missing) Result panel 3738 Specimen collection (procedure) (no date) [facility] (missing) (missing) (missing) Result panel 3739 Specimen collection (procedure) (no date) [facility] (missing) (missing) (missing) Result panel 3740 Specimen collection (procedure) (no date) [facility] (missing) (missing) (missing) Result panel 3741 Specimen collection (procedure) (no date) [facility] (missing) (missing) (missing) Result panel 3742 Specimen collection (procedure) (no date) [facility] (missing) (missing) (missing) Result panel 3743 Specimen collection (procedure) (no date) [facility] (missing) (missing) (missing) Result panel 3744 Specimen collection (procedure) (no date) [facility] (missing) (missing) (missing) Result panel 3745 Specimen collection (procedure) (no date) [facility] (missing) (missing) (missing) Result panel 3746 Specimen collection (procedure) (no date) [facility] (missing) (missing) (missing) Result panel 3747 Specimen collection (procedure) (no date) [facility] (missing) (missing) (missing) Result panel 3748 Specimen collection (procedure) (no date) [facility] (missing) (missing) (missing) Result panel 3749 Specimen collection (procedure) (no date) [facility] (missing) (missing) (missing) Result panel 3750 Specimen collection (procedure) (no date) [facility] (missing) (missing) (missing) Result panel 3751 Specimen collection (procedure) (no date) [facility] (missing) (missing) (missing) Result panel 3752 Specimen collection (procedure) (no date) [facility] (missing) (missing) (missing) Result panel 3753 Specimen collection (procedure) (no date) [facility] (missing) (missing) (missing) Result panel 3754 Specimen collection (procedure) (no date) [facility] (missing) (missing) (missing) Result panel 3755 Specimen collection (procedure) (no date) [facility] (missing) (missing) (missing) Result panel 3756 Specimen collection (procedure) (no date) [facility] (missing) (missing) (missing) Result panel 3757 Specimen collection (procedure) (no date) [facility] (missing) (missing) (missing) Result panel 3758 Specimen collection (procedure) (no date) [facility] (missing) (missing) (missing) Result panel 3759 Specimen collection (procedure) (no date) [facility] (missing) (missing) (missing) Result panel 3760 Specimen collection (procedure) (no date) [facility] (missing) (missing) (missing) Result panel 3761 Specimen collection (procedure) (no date) [facility] (missing) (missing) (missing) Result panel 3762 Specimen collection (procedure) (no date) [facility] (missing) (missing) (missing) Result panel 3763 Specimen collection (procedure) (no date) [facility] (missing) (missing) (missing) Result panel 3764 Specimen collection (procedure) (no date) [facility] (missing) (missing) (missing) Result panel 3765 Specimen collection (procedure) (no date) [facility] (missing) (missing) (missing) Result panel 3766 Specimen collection (procedure) (no date) [facility] (missing) (missing) (missing) Result panel 3767 Specimen collection (procedure) (no date) [facility] (missing) (missing) (missing) Result panel 3768 Specimen collection (procedure) (no date) [facility] (missing) (missing) (missing) Result panel 3769 Specimen collection (procedure) (no date) [facility] (missing) (missing) (missing) Result panel 3770 Specimen collection (procedure) (no date) [facility] (missing) (missing) (missing) Result panel 3771 Specimen collection (procedure) (no date) [facility] (missing) (missing) (missing) Result panel 3772 Specimen collection (procedure) (no date) [facility] (missing) (missing) (missing) Result panel 3773 Specimen collection (procedure) (no date) [facility] (missing) (missing) (missing) Result panel 3774 Specimen collection (procedure) (no date) [facility] (missing) (missing) (missing) Result panel 3775 Specimen collection (procedure) (no date) [facility] (missing) (missing) (missing) Result panel 3776 Specimen collection (procedure) (no date) [facility] (missing) (missing) (missing) Result panel 3777 Specimen collection (procedure) (no date) [facility] (missing) (missing) (missing) Result panel 3778 Specimen collection (procedure) (no date) [facility] (missing) (missing) (missing) Result panel 3779 Specimen collection (procedure) (no date) [facility] (missing) (missing) (missing) Result panel 3780 Specimen collection (procedure) (no date) [facility] (missing) (missing) (missing) Result panel 3781 Specimen collection (procedure) (no date) [facility] (missing) (missing) (missing) Result panel 3782 Specimen collection (procedure) (no date) [facility] (missing) (missing) (missing) Result panel 3783 Specimen collection (procedure) (no date) [facility] (missing) (missing) (missing) Result panel 3784 Specimen collection (procedure) (no date) [facility] (missing) (missing) (missing) Result panel 3785 Specimen collection (procedure) (no date) [facility] (missing) (missing) (missing) Result panel 3786 Specimen collection (procedure) (no date) [facility] (missing) (missing) (missing) Result panel 3787 Specimen collection (procedure) (no date) [facility] (missing) (missing) (missing) Result panel 3788 Specimen collection (procedure) (no date) [facility] (missing) (missing) (missing) Result panel 3789 Specimen collection (procedure) (no date) [facility] (missing) (missing) (missing) Result panel 3790 Specimen collection (procedure) (no date) [facility] (missing) (missing) (missing) Result panel 3791 Specimen collection (procedure) (no date) [facility] (missing) (missing) (missing) Result panel 3792 Specimen collection (procedure) (no date) [facility] (missing) (missing) (missing) Result panel 3793 Specimen collection (procedure) (no date) [facility] (missing) (missing) (missing) Result panel 3794 Specimen collection (procedure) (no date) [facility] (missing) (missing) (missing) Result panel 3795 Specimen collection (procedure) (no date) [facility] (missing) (missing) (missing) Result panel 3796 Specimen collection (procedure) (no date) [facility] (missing) (missing) (missing) Result panel 3797 Specimen collection (procedure) (no date) [facility] (missing) (missing) (missing) Result panel 3798 Specimen collection (procedure) (no date) [facility] (missing) (missing) (missing) Result panel 3799 Specimen collection (procedure) (no date) [facility] (missing) (missing) (missing) Result panel 3800 Specimen collection (procedure) (no date) [facility] (missing) (missing) (missing) Result panel 3801 Specimen collection (procedure) (no date) [facility] (missing) (missing) (missing) Result panel 3802 Specimen collection (procedure) (no date) [facility] [facility] (missing) (missing) Result panel 3803 Specimen collection (procedure) (no date) [facility] (missing) (missing) (missing) Result panel 3804 Specimen collection (procedure) (no date) [facility] (missing) (missing) (missing) Result panel 3805 Specimen collection (procedure) (no date) [facility] (missing) (missing) (missing) Result panel 3806 Specimen collection (procedure) (no date) [facility] (missing) (missing) (missing) Result panel 3807 Specimen collection (procedure) (no date) [facility] (missing) (missing) (missing) Result panel 3808 Specimen collection (procedure) (no date) [facility] (missing) (missing) (missing) Result panel 3809 Specimen collection (procedure) (no date) [facility] (missing) (missing) (missing) Result panel 3810 Specimen collection (procedure) (no date) [facility] (missing) (missing) (missing) Result panel 3811 Specimen collection (procedure) (no date) [facility] (missing) (missing) (missing) Result panel 3812 Specimen collection (procedure) (no date) [facility] (missing) (missing) (missing) Result panel 3813 Specimen collection (procedure) (no date) [facility] (missing) (missing) (missing) Result panel 3814 Specimen collection (procedure) (no date) [facility] (missing) (missing) (missing) Result panel 3815 Specimen collection (procedure) (no date) [facility] (missing) (missing) (missing) Result panel 3816 Specimen collection (procedure) (no date) [facility] (missing) (missing) (missing) Result panel 3817 Specimen collection (procedure) (no date) [facility] (missing) (missing) (missing) Result panel 3818 Specimen collection (procedure) (no date) [facility] (missing) (missing) (missing) Result panel 3819 Specimen collection (procedure) (no date) [facility] (missing) (missing) (missing) Result panel 3820 Specimen collection (procedure) (no date) [facility] (missing) (missing) (missing) Result panel 3821 Specimen collection (procedure) (no date) [facility] (missing) (missing) (missing) Result panel 3822 Specimen collection (procedure) (no date) [facility] (missing) (missing) (missing) Result panel 3823 Specimen collection (procedure) (no date) [facility] (missing) (missing) (missing) Result panel 3824 Specimen collection (procedure) (no date) [facility] (missing) (missing) (missing) Result panel 3825 Specimen collection (procedure) (no date) [facility] (missing) (missing) (missing) Result panel 3826 Specimen collection (procedure) (no date) [facility] (missing) (missing) (missing) Result panel 3827 Specimen collection (procedure) (no date) [facility] (missing) (missing) (missing) Result panel 3828 Specimen collection (procedure) (no date) [facility] (missing) (missing) (missing) Result panel 3829 Specimen collection (procedure) (no date) [facility] (missing) (missing) (missing) Result panel 3830 Specimen collection (procedure) (no date) [facility] (missing) (missing) (missing) Result panel 3831 Specimen collection (procedure) (no date) [facility] (missing) (missing) (missing) Result panel 3832 Specimen collection (procedure) (no date) [facility] (missing) (missing) (missing) Result panel 3833 Specimen collection (procedure) (no date) [facility] (missing) (missing) (missing) Result panel 3834 Specimen collection (procedure) (no date) [facility] (missing) (missing) (missing) Result panel 3835 Specimen collection (procedure) (no date) [facility] (missing) (missing) (missing) Result panel 3836 Specimen collection (procedure) (no date) [facility] (missing) (missing) (missing) Result panel 3837 Specimen collection (procedure) (no date) [facility] (missing) (missing) (missing) Result panel 3838 Specimen collection (procedure) (no date) [facility] (missing) (missing) (missing) Result panel 3839 Specimen collection (procedure) (no date) [facility] (missing) (missing) (missing) Result panel 3840 Specimen collection (procedure) (no date) [facility] (missing) (missing) (missing) Result panel 3841 Specimen collection (procedure) (no date) [facility] (missing) (missing) (missing) Result panel 3842 Specimen collection (procedure) (no date) [facility] (missing) (missing) (missing) Result panel 3843 Specimen collection (procedure) (no date) [facility] (missing) (missing) (missing) Result panel 3844 Specimen collection (procedure) (no date) [facility] (missing) (missing) (missing) Result panel 3845 Specimen collection (procedure) (no date) [facility] (missing) (missing) (missing) Result panel 3846 Specimen collection (procedure) (no date) [facility] (missing) (missing) (missing) Result panel 3847 Specimen collection (procedure) (no date) [facility] (missing) (missing) (missing) Result panel 3848 Specimen collection (procedure) (no date) [facility] (missing) (missing) (missing) Result panel 3849 Specimen collection (procedure) (no date) [facility] (missing) (missing) (missing) Result panel 3850 Specimen collection (procedure) (no date) [facility] (missing) (missing) (missing) Result panel 3851 Specimen collection (procedure) (no date) [facility] (missing) (missing) (missing) Result panel 3852 Specimen collection (procedure) (no date) [facility] (missing) (missing) (missing) Result panel 3853 Specimen collection (procedure) (no date) [facility] (missing) (missing) (missing) Result panel 3854 Specimen collection (procedure) (no date) [facility] (missing) (missing) (missing) Result panel 3855 Specimen collection (procedure) (no date) [facility] (missing) (missing) (missing) Result panel 3856 Specimen collection (procedure) (no date) [facility] (missing) (missing) (missing) Result panel 3857 Specimen collection (procedure) (no date) [facility] (missing) (missing) (missing) Result panel 3858 Specimen collection (procedure) (no date) [facility] (missing) (missing) (missing) Result panel 3859 Specimen collection (procedure) (no date) [facility] (missing) (missing) (missing) Result panel 3860 Specimen collection (procedure) (no date) [facility] (missing) (missing) (missing) Result panel 3861 Specimen collection (procedure) (no date) [facility] (missing) (missing) (missing) Result panel 3862 Specimen collection (procedure) (no date) [facility] (missing) (missing) (missing) Result panel 3863 Specimen collection (procedure) (no date) [facility] (missing) (missing) (missing) Result panel 3864 Specimen collection (procedure) (no date) [facility] (missing) (missing) (missing) Result panel 3865 Specimen collection (procedure) (no date) [facility] (missing) (missing) (missing) Result panel 3866 Specimen collection (procedure) (no date) [facility] (missing) (missing) (missing) Result panel 3867 Specimen collection (procedure) (no date) [facility] (missing) (missing) (missing) Result panel 3868 Specimen collection (procedure) (no date) [facility] (missing) (missing) (missing) Result panel 3869 Specimen collection (procedure) (no date) [facility] (missing) (missing) (missing) Result panel 3870 Specimen collection (procedure) (no date) [facility] (missing) (missing) (missing) Result panel 3871 Specimen collection (procedure) (no date) [facility] (missing) (missing) (missing) Result panel 3872 Specimen collection (procedure) (no date) [facility] (missing) (missing) (missing) Result panel 3873 Specimen collection (procedure) (no date) [facility] (missing) (missing) (missing) Result panel 3874 Specimen collection (procedure) (no date) [facility] (missing) (missing) (missing) Result panel 3875 Specimen collection (procedure) (no date) [facility] (missing) (missing) (missing) Result panel 3876 Specimen collection (procedure) (no date) [facility] (missing) (missing) (missing) Result panel 3877 Specimen collection (procedure) (no date) [facility] (missing) (missing) (missing) Result panel 3878 Specimen collection (procedure) (no date) [facility] (missing) (missing) (missing) Result panel 3879 Specimen collection (procedure) (no date) [facility] (missing) (missing) (missing) Result panel 3880 Specimen collection (procedure) (no date) [facility] (missing) (missing) (missing) Result panel 3881 Specimen collection (procedure) (no date) [facility] (missing) (missing) (missing) Result panel 3882 Specimen collection (procedure) (no date) [facility] (missing) (missing) (missing) Result panel 3883 Specimen collection (procedure) (no date) [facility] (missing) (missing) (missing) Result panel 3884 Specimen collection (procedure) (no date) [facility] (missing) (missing) (missing) Result panel 3885 Specimen collection (procedure) (no date) [facility] (missing) (missing) (missing) Result panel 3886 Specimen collection (procedure) (no date) [facility] (missing) (missing) (missing) Result panel 3887 Specimen collection (procedure) (no date) [facility] (missing) (missing) (missing) Result panel 3888 Specimen collection (procedure) (no date) [facility] (missing) (missing) (missing) Result panel 3889 Specimen collection (procedure) (no date) [facility] (missing) (missing) (missing) Result panel 3890 Specimen collection (procedure) (no date) [facility] (missing) (missing) (missing) Result panel 3891 Specimen collection (procedure) (no date) [facility] (missing) (missing) (missing) Result panel 3892 Specimen collection (procedure) (no date) [facility] (missing) (missing) (missing) Result panel 3893 Specimen collection (procedure) (no date) [facility] (missing) (missing) (missing) Result panel 3894 Specimen collection (procedure) (no date) [facility] (missing) (missing) (missing) Result panel 3895 Specimen collection (procedure) (no date) [facility] (missing) (missing) (missing) Result panel 3896 Specimen collection (procedure) (no date) [facility] (missing) (missing) (missing) Result panel 3897 Specimen collection (procedure) (no date) [facility] (missing) (missing) (missing) Result panel 3898 Specimen collection (procedure) (no date) [facility] (missing) (missing) (missing) Result panel 3899 Specimen collection (procedure) (no date) [facility] (missing) (missing) (missing) Result panel 3900 Specimen collection (procedure) (no date) [facility] (missing) (missing) (missing) Result panel 3901 Specimen collection (procedure) (no date) [facility] (missing) (missing) (missing) Result panel 3902 Specimen collection (procedure) (no date) [facility] (missing) (missing) (missing) Result panel 3903 Specimen collection (procedure) (no date) [facility] (missing) (missing) (missing) Result panel 3904 Specimen collection (procedure) (no date) [facility] (missing) (missing) (missing) Result panel 3905 Specimen collection (procedure) (no date) [facility] (missing) (missing) (missing) Result panel 3906 Specimen collection (procedure) (no date) [facility] (missing) (missing) (missing) Result panel 3907 Specimen collection (procedure) (no date) [facility] (missing) (missing) (missing) Result panel 3908 Specimen collection (procedure) (no date) [facility] (missing) (missing) (missing) Result panel 3909 Specimen collection (procedure) (no date) [facility] (missing) (missing) (missing) Result panel 3910 Specimen collection (procedure) (no date) [facility] (missing) (missing) (missing) Result panel 3911 Specimen collection (procedure) (no date) [facility] (missing) (missing) (missing) Result panel 3912 Specimen collection (procedure) (no date) [facility] (missing) (missing) (missing) Result panel 3913 Specimen collection (procedure) (no date) [facility] (missing) (missing) (missing) Result panel 3914 Specimen collection (procedure) (no date) [facility] (missing) (missing) (missing) Result panel 3915 Specimen collection (procedure) (no date) [facility] (missing) (missing) (missing) Result panel 3916 Specimen collection (procedure) (no date) [facility] (missing) (missing) (missing) Result panel 3917 Specimen collection (procedure) (no date) [facility] (missing) (missing) (missing) Result panel 3918 Specimen collection (procedure) (no date) [facility] (missing) (missing) (missing) Result panel 3919 Specimen collection (procedure) (no date) [facility] (missing) (missing) (missing) Result panel 3920 Specimen collection (procedure) (no date) [facility] (missing) (missing) (missing) Result panel 3921 Specimen collection (procedure) (no date) [facility] (missing) (missing) (missing) Result panel 3922 Specimen collection (procedure) (no date) [facility] (missing) (missing) (missing) Result panel 3923 Specimen collection (procedure) (no date) [facility] (missing) (missing) (missing) Result panel 3924 Specimen collection (procedure) (no date) [facility] (missing) (missing) (missing) Result panel 3925 Specimen collection (procedure) (no date) [facility] (missing) (missing) (missing) Result panel 3926 Specimen collection (procedure) (no date) [facility] (missing) (missing) (missing) Result panel 3927 Specimen collection (procedure) (no date) [facility] (missing) (missing) (missing) Result panel 3928 Specimen collection (procedure) (no date) [facility] (missing) (missing) (missing) Result panel 3929 Specimen collection (procedure) (no date) [facility] (missing) (missing) (missing) Result panel 3930 Specimen collection (procedure) (no date) [facility] (missing) (missing) (missing) Result panel 3931 Specimen collection (procedure) (no date) [facility] (missing) (missing) (missing) Result panel 3932 Specimen collection (procedure) (no date) [facility] (missing) (missing) (missing) Result panel 3933 Specimen collection (procedure) (no date) [facility] (missing) (missing) (missing) Result panel 3934 Specimen collection (procedure) (no date) [facility] (missing) (missing) (missing) Result panel 3935 Specimen collection (procedure) (no date) [facility] (missing) (missing) (missing) Result panel 3936 Specimen collection (procedure) (no date) [facility] (missing) (missing) (missing) Result panel 3937 Specimen collection (procedure) (no date) [facility] (missing) (missing) (missing) Result panel 3938 Specimen collection (procedure) (no date) [facility] (missing) (missing) (missing) Result panel 3939 Specimen collection (procedure) (no date) [facility] (missing) (missing) (missing) Result panel 3940 Specimen collection (procedure) (no date) [facility] (missing) (missing) (missing) Result panel 3941 Specimen collection (procedure) (no date) [facility] (missing) (missing) (missing) Result panel 3942 Specimen collection (procedure) (no date) [facility] (missing) (missing) (missing) Result panel 3943 Specimen collection (procedure) (no date) [facility] (missing) (missing) (missing) Result panel 3944 Specimen collection (procedure) (no date) [facility] (missing) (missing) (missing) Result panel 3945 Specimen collection (procedure) (no date) [facility] (missing) (missing) (missing) Result panel 3946 Specimen collection (procedure) (no date) [facility] (missing) (missing) (missing) Result panel 3947 Specimen collection (procedure) (no date) [facility] (missing) (missing) (missing) Result panel 3948 Specimen collection (procedure) (no date) [facility] (missing) (missing) (missing) Result panel 3949 Specimen collection (procedure) (no date) [facility] (missing) (missing) (missing) Result panel 3950 Specimen collection (procedure) (no date) [facility] (missing) (missing) (missing) Result panel 3951 Specimen collection (procedure) (no date) [facility] (missing) (missing) (missing) Result panel 3952 Specimen collection (procedure) (no date) [facility] (missing) (missing) (missing) Result panel 3953 Specimen collection (procedure) (no date) [facility] (missing) (missing) (missing) Result panel 3954 Specimen collection (procedure) (no date) [facility] (missing) (missing) (missing) Result panel 3955 Specimen collection (procedure) (no date) [facility] (missing) (missing) (missing) Result panel 3956 Specimen collection (procedure) (no date) [facility] (missing) (missing) (missing) Result panel 3957 Specimen collection (procedure) (no date) [facility] (missing) (missing) (missing) Result panel 3958 Specimen collection (procedure) (no date) [facility] (missing) (missing) (missing) Result panel 3959 Specimen collection (procedure) (no date) [facility] (missing) (missing) (missing) Result panel 3960 Specimen collection (procedure) (no date) [facility] (missing) (missing) (missing) Result panel 3961 Specimen collection (procedure) (no date) [facility] (missing) (missing) (missing) Result panel 3962 Specimen collection (procedure) (no date) [facility] (missing) (missing) (missing) Result panel 3963 Specimen collection (procedure) (no date) [facility] (missing) (missing) (missing) Result panel 3964 Specimen collection (procedure) (no date) [facility] (missing) (missing) (missing) Result panel 3965 Specimen collection (procedure) (no date) [facility] (missing) (missing) (missing) Result panel 3966 Specimen collection (procedure) (no date) [facility] (missing) (missing) (missing) Result panel 3967 Specimen collection (procedure) (no date) [facility] (missing) (missing) (missing) Result panel 3968 Specimen collection (procedure) (no date) [facility] (missing) (missing) (missing) Result panel 3969 Specimen collection (procedure) (no date) [facility] (missing) (missing) (missing) Result panel 3970 Specimen collection (procedure) (no date) [facility] (missing) (missing) (missing) Result panel 3971 Specimen collection (procedure) (no date) [facility] (missing) (missing) (missing) Result panel 3972 Specimen collection (procedure) (no date) [facility] (missing) (missing) (missing) Result panel 3973 Specimen collection (procedure) (no date) [facility] (missing) (missing) (missing) Result panel 3974 Specimen collection (procedure) (no date) [facility] (missing) (missing) (missing) Result panel 3975 Specimen collection (procedure) (no date) [facility] (missing) (missing) (missing) Result panel 3976 Specimen collection (procedure) (no date) [facility] (missing) (missing) (missing) Result panel 3977 Specimen collection (procedure) (no date) [facility] (missing) (missing) (missing) Result panel 3978 Specimen collection (procedure) (no date) [facility] (missing) (missing) (missing) Result panel 3979 Specimen collection (procedure) (no date) [facility] (missing) (missing) (missing) Result panel 3980 Specimen collection (procedure) (no date) [facility] (missing) (missing) (missing) Result panel 3981 Specimen collection (procedure) (no date) [facility] (missing) (missing) (missing) Result panel 3982 Specimen collection (procedure) (no date) [facility] (missing) (missing) (missing) Result panel 3983 Specimen collection (procedure) (no date) [facility] (missing) (missing) (missing) Result panel 3984 Specimen collection (procedure) (no date) [facility] (missing) (missing) (missing) Result panel 3985 Specimen collection (procedure) (no date) [facility] (missing) (missing) (missing) Result panel 3986 Specimen collection (procedure) (no date) [facility] (missing) (missing) (missing) Result panel 3987 Specimen collection (procedure) (no date) [facility] (missing) (missing) (missing) Result panel 3988 Specimen collection (procedure) (no date) [facility] (missing) (missing) (missing) Result panel 3989 Specimen collection (procedure) (no date) [facility] (missing) (missing) (missing) Result panel 3990 Specimen collection (procedure) (no date) [facility] (missing) (missing) (missing) Result panel 3991 Specimen collection (procedure) (no date) [facility] (missing) (missing) (missing) Result panel 3992 Specimen collection (procedure) (no date) [facility] (missing) (missing) (missing) Result panel 3993 Specimen collection (procedure) (no date) [facility] (missing) (missing) (missing) Result panel 3994 Specimen collection (procedure) (no date) [facility] (missing) (missing) (missing) Result panel 3995 Specimen collection (procedure) (no date) [facility] (missing) (missing) (missing) Result panel 3996 Specimen collection (procedure) (no date) [facility] (missing) (missing) (missing) Result panel 3997 Specimen collection (procedure) (no date) [facility] (missing) (missing) (missing) Result panel 3998 Specimen collection (procedure) (no date) [facility] (missing) (missing) (missing) Result panel 3999 Specimen collection (procedure) (no date) [facility] (missing) (missing) (missing) Result panel 4000 Specimen collection (procedure) (no date) [facility] (missing) (missing) (missing) Result panel 4001 Specimen collection (procedure) (no date) [facility] (missing) (missing) (missing) Result panel 4002 Specimen collection (procedure) (no date) [facility] (missing) (missing) (missing) Result panel 4003 Specimen collection (procedure) (no date) [facility] (missing) (missing) (missing) Result panel 4004 Specimen collection (procedure) (no date) [facility] (missing) (missing) (missing) Result panel 4005 Specimen collection (procedure) (no date) [facility] (missing) (missing) (missing) Result panel 4006 Specimen collection (procedure) (no date) [facility] (missing) (missing) (missing) Result panel 4007 Specimen collection (procedure) (no date) [facility] (missing) (missing) (missing) Result panel 4008 Specimen collection (procedure) (no date) [facility] (missing) (missing) (missing) Result panel 4009 Specimen collection (procedure) (no date) [facility] (missing) (missing) (missing) Result panel 4010 Specimen collection (procedure) (no date) [facility] (missing) (missing) (missing) Result panel 4011 Specimen collection (procedure) (no date) [facility] (missing) (missing) (missing) Result panel 4012 Specimen collection (procedure) (no date) [facility] (missing) (missing) (missing) Result panel 4013 Specimen collection (procedure) (no date) [facility] (missing) (missing) (missing) Result panel 4014 Specimen collection (procedure) (no date) [facility] (missing) (missing) (missing) Result panel 4015 Specimen collection (procedure) (no date) [facility] (missing) (missing) (missing) Result panel 4016 Specimen collection (procedure) (no date) [facility] (missing) (missing) (missing) Result panel 4017 Specimen collection (procedure) (no date) [facility] (missing) (missing) (missing) Result panel 4018 Specimen collection (procedure) (no date) [facility] (missing) (missing) (missing) Result panel 4019 Specimen collection (procedure) (no date) [facility] (missing) (missing) (missing) Result panel 4020 Specimen collection (procedure) (no date) [facility] (missing) (missing) (missing) Result panel 4021 Specimen collection (procedure) (no date) [facility] (missing) (missing) (missing) Result panel 4022 Specimen collection (procedure) (no date) [facility] (missing) (missing) (missing) Result panel 4023 Specimen collection (procedure) (no date) [facility] (missing) (missing) (missing) Result panel 4024 Specimen collection (procedure) (no date) [facility] (missing) (missing) (missing) Result panel 4025 Specimen collection (procedure) (no date) [facility] (missing) (missing) (missing) Result panel 4026 Specimen collection (procedure) (no date) [facility] (missing) (missing) (missing) Result panel 4027 Specimen collection (procedure) (no date) [facility] (missing) (missing) (missing) Result panel 4028 Specimen collection (procedure) (no date) [facility] (missing) (missing) (missing) Result panel 4029 Specimen collection (procedure) (no date) [facility] (missing) (missing) (missing) Result panel 4030 Specimen collection (procedure) (no date) [facility] (missing) (missing) (missing) Result panel 4031 Specimen collection (procedure) (no date) [facility] (missing) (missing) (missing) Result panel 4032 Specimen collection (procedure) (no date) [facility] (missing) (missing) (missing) Result panel 4033 Specimen collection (procedure) (no date) [facility] (missing) (missing) (missing) Result panel 4034 Specimen collection (procedure) (no date) [facility] (missing) (missing) (missing) Result panel 4035 Specimen collection (procedure) (no date) [facility] (missing) (missing) (missing) Result panel 4036 Specimen collection (procedure) (no date) [facility] (missing) (missing) (missing) Result panel 4037 Specimen collection (procedure) (no date) [facility] (missing) (missing) (missing) Result panel 4038 Specimen collection (procedure) (no date) [facility] (missing) (missing) (missing) Result panel 4039 Specimen collection (procedure) (no date) [facility] (missing) (missing) (missing) Result panel 4040 Specimen collection (procedure) (no date) [facility] (missing) (missing) (missing) Result panel 4041 Specimen collection (procedure) (no date) [facility] (missing) (missing) (missing) Result panel 4042 Specimen collection (procedure) (no date) [facility] (missing) (missing) (missing) Result panel 4043 Specimen collection (procedure) (no date) [facility] (missing) (missing) (missing) Result panel 4044 Specimen collection (procedure) (no date) [facility] (missing) (missing) (missing) Result panel 4045 Specimen collection (procedure) (no date) [facility] (missing) (missing) (missing) Result panel 4046 Specimen collection (procedure) (no date) [facility] (missing) (missing) (missing) Result panel 4047 Specimen collection (procedure) (no date) [facility] (missing) (missing) (missing) Result panel 4048 Specimen collection (procedure) (no date) [facility] (missing) (missing) (missing) Result panel 4049 Specimen collection (procedure) (no date) [facility] (missing) (missing) (missing) Result panel 4050 Specimen collection (procedure) (no date) [facility] (missing) (missing) (missing) Result panel 4051 Specimen collection (procedure) (no date) [facility] (missing) (missing) (missing) Result panel 4052 Specimen collection (procedure) (no date) [facility] (missing) (missing) (missing) Result panel 4053 Specimen collection (procedure) (no date) [facility] (missing) (missing) (missing) Result panel 4054 Specimen collection (procedure) (no date) [facility] (missing) (missing) (missing) Result panel 4055 Specimen collection (procedure) (no date) [facility] (missing) (missing) (missing) Result panel 4056 Specimen collection (procedure) (no date) [facility] (missing) (missing) (missing) Result panel 4057 Specimen collection (procedure) (no date) [facility] (missing) (missing) (missing) Result panel 4058 Specimen collection (procedure) (no date) [facility] (missing) (missing) (missing) Result panel 4059 Specimen collection (procedure) (no date) [facility] (missing) (missing) (missing) Result panel 4060 Specimen collection (procedure) (no date) [facility] (missing) (missing) (missing) Result panel 4061 Specimen collection (procedure) (no date) [facility] (missing) (missing) (missing) Result panel 4062 Specimen collection (procedure) (no date) [facility] (missing) (missing) (missing) Result panel 4063 Specimen collection (procedure) (no date) [facility] (missing) (missing) (missing) Result panel 4064 Specimen collection (procedure) (no date) [facility] (missing) (missing) (missing) Result panel 4065 Specimen collection (procedure) (no date) [facility] (missing) (missing) (missing) Result panel 4066 Specimen collection (procedure) (no date) [facility] (missing) (missing) (missing) Result panel 4067 Specimen collection (procedure) (no date) [facility] (missing) (missing) (missing) Result panel 4068 Specimen collection (procedure) (no date) [facility] (missing) (missing) (missing) Result panel 4069 Specimen collection (procedure) (no date) [facility] (missing) (missing) (missing) Result panel 4070 Specimen collection (procedure) (no date) [facility] (missing) (missing) (missing) Result panel 4071 Specimen collection (procedure) (no date) [facility] (missing) (missing) (missing) Result panel 4072 Specimen collection (procedure) (no date) [facility] (missing) (missing) (missing) Result panel 4073 Specimen collection (procedure) (no date) [facility] (missing) (missing) (missing) Result panel 4074 Specimen collection (procedure) (no date) [facility] (missing) (missing) (missing) Result panel 4075 Specimen collection (procedure) (no date) [facility] (missing) (missing) (missing) Result panel 4076 Specimen collection (procedure) (no date) [facility] (missing) (missing) (missing) Result panel 4077 Specimen collection (procedure) (no date) [facility] (missing) (missing) (missing) Result panel 4078 Specimen collection (procedure) (no date) [facility] (missing) (missing) (missing) Result panel 4079 Specimen collection (procedure) (no date) [facility] (missing) (missing) (missing) Result panel 4080 Specimen collection (procedure) (no date) [facility] (missing) (missing) (missing) Result panel 4081 Specimen collection (procedure) (no date) [facility] (missing) (missing) (missing) Result panel 4082 Specimen collection (procedure) (no date) [facility] (missing) (missing) (missing) Result panel 4083 Specimen collection (procedure) (no date) [facility] (missing) (missing) (missing) Result panel 4084 Specimen collection (procedure) (no date) [facility] (missing) (missing) (missing) Result panel 4085 Specimen collection (procedure) (no date) [facility] (missing) (missing) (missing) Result panel 4086 Specimen collection (procedure) (no date) [facility] (missing) (missing) (missing) Result panel 4087 Specimen collection (procedure) (no date) [facility] (missing) (missing) (missing) Result panel 4088 Specimen collection (procedure) (no date) [facility] (missing) (missing) (missing) Result panel 4089 Specimen collection (procedure) (no date) [facility] (missing) (missing) (missing) Result panel 4090 Specimen collection (procedure) (no date) [facility] (missing) (missing) (missing) Result panel 4091 Specimen collection (procedure) (no date) [facility] (missing) (missing) (missing) Result panel 4092 Specimen collection (procedure) (no date) [facility] (missing) (missing) (missing) Result panel 4093 Specimen collection (procedure) (no date) [facility] (missing) (missing) (missing) Result panel 4094 Specimen collection (procedure) (no date) [facility] (missing) (missing) (missing) Result panel 4095 Specimen collection (procedure) (no date) [facility] (missing) (missing) (missing) Result panel 4096 Specimen collection (procedure) (no date) [facility] (missing) (missing) (missing) Result panel 4097 Specimen collection (procedure) (no date) [facility] (missing) (missing) (missing) Result panel 4098 Specimen collection (procedure) (no date) [facility] (missing) (missing) (missing) Result panel 4099 Specimen collection (procedure) (no date) [facility] (missing) (missing) (missing) Result panel 4100 Specimen collection (procedure) (no date) [facility] (missing) (missing) (missing) Result panel 4101 Specimen collection (procedure) (no date) [facility] (missing) (missing) (missing) Result panel 4102 Specimen collection (procedure) (no date) [facility] (missing) (missing) (missing) Result panel 4103 Specimen collection (procedure) (no date) [facility] (missing) (missing) (missing) Result panel 4104 Specimen collection (procedure) (no date) [facility] (missing) (missing) (missing) Result panel 4105 Specimen collection (procedure) (no date) [facility] (missing) (missing) (missing) Result panel 4106 Specimen collection (procedure) (no date) [facility] (missing) (missing) (missing) Result panel 4107 Specimen collection (procedure) (no date) [facility] (missing) (missing) (missing) Result panel 4108 Specimen collection (procedure) (no date) [facility] (missing) (missing) (missing) Result panel 4109 Specimen collection (procedure) (no date) [facility] (missing) (missing) (missing) Result panel 4110 Specimen collection (procedure) (no date) [facility] (missing) (missing) (missing) Result panel 4111 Specimen collection (procedure) (no date) [facility] (missing) (missing) (missing) Result panel 4112 Specimen collection (procedure) (no date) [facility] (missing) (missing) (missing) Result panel 4113 Specimen collection (procedure) (no date) [facility] (missing) (missing) (missing) Result panel 4114 Specimen collection (procedure) (no date) [facility] (missing) (missing) (missing) Result panel 4115 Specimen collection (procedure) (no date) [facility] (missing) (missing) (missing) Result panel 4116 Specimen collection (procedure) (no date) [facility] (missing) (missing) (missing) Result panel 4117 Specimen collection (procedure) (no date) [facility] (missing) (missing) (missing) Result panel 4118 Specimen collection (procedure) (no date) [facility] (missing) (missing) (missing) Result panel 4119 Specimen collection (procedure) (no date) [facility] (missing) (missing) (missing) Result panel 4120 Specimen collection (procedure) (no date) [facility] (missing) (missing) (missing) Result panel 4121 Specimen collection (procedure) (no date) [facility] (missing) (missing) (missing) Result panel 4122 Specimen collection (procedure) (no date) [facility] (missing) (missing) (missing) Result panel 4123 Specimen collection (procedure) (no date) [facility] (missing) (missing) (missing) Result panel 4124 Specimen collection (procedure) (no date) [facility] (missing) (missing) (missing) Result panel 4125 Specimen collection (procedure) (no date) [facility] (missing) (missing) (missing) Result panel 4126 Specimen collection (procedure) (no date) [facility] (missing) (missing) (missing) Result panel 4127 Specimen collection (procedure) (no date) [facility] (missing) (missing) (missing) Result panel 4128 Specimen collection (procedure) (no date) [facility] (missing) (missing) (missing) Result panel 4129 Specimen collection (procedure) (no date) [facility] (missing) (missing) (missing) Result panel 4130 Specimen collection (procedure) (no date) [facility] (missing) (missing) (missing) Result panel 4131 Specimen collection (procedure) (no date) [facility] (missing) (missing) (missing) Result panel 4132 Specimen collection (procedure) (no date) [facility] (missing) (missing) (missing) Result panel 4133 Specimen collection (procedure) (no date) [facility] (missing) (missing) (missing) Result panel 4134 Specimen collection (procedure) (no date) [facility] (missing) (missing) (missing) Result panel 4135 Specimen collection (procedure) (no date) [facility] (missing) (missing) (missing) Result panel 4136 Specimen collection (procedure) (no date) [facility] (missing) (missing) (missing) Result panel 4137 Specimen collection (procedure) (no date) [facility] (missing) (missing) (missing) Result panel 4138 Specimen collection (procedure) (no date) [facility] (missing) (missing) (missing) Result panel 4139 Specimen collection (procedure) (no date) [facility] (missing) (missing) (missing) Result panel 4140 Specimen collection (procedure) (no date) [facility] (missing) (missing) (missing) Result panel 4141 Specimen collection (procedure) (no date) [facility] (missing) (missing) (missing) Result panel 4142 Specimen collection (procedure) (no date) [facility] (missing) (missing) (missing) Result panel 4143 Specimen collection (procedure) (no date) [facility] (missing) (missing) (missing) Result panel 4144 Specimen collection (procedure) (no date) [facility] (missing) (missing) (missing) Result panel 4145 Specimen collection (procedure) (no date) [facility] (missing) (missing) (missing) Result panel 4146 Specimen collection (procedure) (no date) [facility] (missing) (missing) (missing) Result panel 4147 Specimen collection (procedure) (no date) [facility] (missing) (missing) (missing) Result panel 4148 Specimen collection (procedure) (no date) [facility] (missing) (missing) (missing) Result panel 4149 Specimen collection (procedure) (no date) [facility] (missing) (missing) (missing) Result panel 4150 Specimen collection (procedure) (no date) [facility] (missing) (missing) (missing) Result panel 4151 Specimen collection (procedure) (no date) [facility] (missing) (missing) (missing) Result panel 4152 Specimen collection (procedure) (no date) [facility] (missing) (missing) (missing) Result panel 4153 Specimen collection (procedure) (no date) [facility] (missing) (missing) (missing) Result panel 4154 Specimen collection (procedure) (no date) [facility] (missing) (missing) (missing) Result panel 4155 Specimen collection (procedure) (no date) [facility] (missing) (missing) (missing) Result panel 4156 Specimen collection (procedure) (no date) [facility] (missing) (missing) (missing) Result panel 4157 Specimen collection (procedure) (no date) [facility] (missing) (missing) (missing) Result panel 4158 Specimen collection (procedure) (no date) [facility] (missing) (missing) (missing) Result panel 4159 Specimen collection (procedure) (no date) [facility] (missing) (missing) (missing) Result panel 4160 Specimen collection (procedure) (no date) [facility] (missing) (missing) (missing) Result panel 4161 Specimen collection (procedure) (no date) [facility] (missing) (missing) (missing) Result panel 4162 Specimen collection (procedure) (no date) [facility] (missing) (missing) (missing) Result panel 4163 Specimen collection (procedure) (no date) [facility] (missing) (missing) (missing) Result panel 4164 Specimen collection (procedure) (no date) [facility] (missing) (missing) (missing) Result panel 4165 Specimen collection (procedure) (no date) [facility] (missing) (missing) (missing) Result panel 4166 Specimen collection (procedure) (no date) [facility] (missing) (missing) (missing) Result panel 4167 Specimen collection (procedure) (no date) [facility] (missing) (missing) (missing) Result panel 4168 Specimen collection (procedure) (no date) [facility] (missing) (missing) (missing) Result panel 4169 Specimen collection (procedure) (no date) [facility] (missing) (missing) (missing) Result panel 4170 Specimen collection (procedure) (no date) [facility] (missing) (missing) (missing) Result panel 4171 Specimen collection (procedure) (no date) [facility] (missing) (missing) (missing) Result panel 4172 Specimen collection (procedure) (no date) [facility] (missing) (missing) (missing) Result panel 4173 Specimen collection (procedure) (no date) [facility] (missing) (missing) (missing) Result panel 4174 Specimen collection (procedure) (no date) [facility] (missing) (missing) (missing) Result panel 4175 Specimen collection (procedure) (no date) [facility] (missing) (missing) (missing) Result panel 4176 Specimen collection (procedure) (no date) [facility] (missing) (missing) (missing) Result panel 4177 Specimen collection (procedure) (no date) [facility] (missing) (missing) (missing) Result panel 4178 Specimen collection (procedure) (no date) [facility] (missing) (missing) (missing) Result panel 4179 Specimen collection (procedure) (no date) [facility] (missing) (missing) (missing) Result panel 4180 Specimen collection (procedure) (no date) [facility] (missing) (missing) (missing) Result panel 4181 Specimen collection (procedure) (no date) [facility] (missing) (missing) (missing) Result panel 4182 Specimen collection (procedure) (no date) [facility] (missing) (missing) (missing) Result panel 4183 Specimen collection (procedure) (no date) [facility] (missing) (missing) (missing) Result panel 4184 Specimen collection (procedure) (no date) [facility] (missing) (missing) (missing) Result panel 4185 Specimen collection (procedure) (no date) [facility] (missing) (missing) (missing) Result panel 4186 Specimen collection (procedure) (no date) [facility] (missing) (missing) (missing) Result panel 4187 Specimen collection (procedure) (no date) [facility] (missing) (missing) (missing) Result panel 4188 Specimen collection (procedure) (no date) [facility] (missing) (missing) (missing) Result panel 4189 Specimen collection (procedure) (no date) [facility] (missing) (missing) (missing) Result panel 4190 Specimen collection (procedure) (no date) [facility] (missing) (missing) (missing) Result panel 4191 Specimen collection (procedure) (no date) [facility] (missing) (missing) (missing) Result panel 4192 Specimen collection (procedure) (no date) [facility] (missing) (missing) (missing) Result panel 4193 Specimen collection (procedure) (no date) [facility] (missing) (missing) (missing) Result panel 4194 Specimen collection (procedure) (no date) [facility] (missing) (missing) (missing) Result panel 4195 Specimen collection (procedure) (no date) [facility] (missing) (missing) (missing) Result panel 4196 Specimen collection (procedure) (no date) [facility] (missing) (missing) (missing) Result panel 4197 Specimen collection (procedure) (no date) [facility] (missing) (missing) (missing) Result panel 4198 Specimen collection (procedure) (no date) [facility] (missing) (missing) (missing) Result panel 4199 Specimen collection (procedure) (no date) [facility] (missing) (missing) (missing) Result panel 4200 Specimen collection (procedure) (no date) [facility] (missing) (missing) (missing) Result panel 4201 Specimen collection (procedure) (no date) [facility] (missing) (missing) (missing) Result panel 4202 Specimen collection (procedure) (no date) [facility] (missing) (missing) (missing) Result panel 4203 Specimen collection (procedure) (no date) [facility] (missing) (missing) (missing) Result panel 4204 Specimen collection (procedure) (no date) [facility] (missing) (missing) (missing) Result panel 4205 Specimen collection (procedure) (no date) [facility] (missing) (missing) (missing) Result panel 4206 Specimen collection (procedure) (no date) [facility] (missing) (missing) (missing) Result panel 4207 Specimen collection (procedure) (no date) [facility] (missing) (missing) (missing) Result panel 4208 Specimen collection (procedure) (no date) [facility] (missing) (missing) (missing) Result panel 4209 Specimen collection (procedure) (no date) [facility] (missing) (missing) (missing) Result panel 4210 Specimen collection (procedure) (no date) [facility] (missing) (missing) (missing) Result panel 4211 Specimen collection (procedure) (no date) [facility] (missing) (missing) (missing) Result panel 4212 Specimen collection (procedure) (no date) [facility] (missing) (missing) (missing) Result panel 4213 Specimen collection (procedure) (no date) [facility] (missing) (missing) (missing) Result panel 4214 Specimen collection (procedure) (no date) [facility] (missing) (missing) (missing) Result panel 4215 Specimen collection (procedure) (no date) [facility] (missing) (missing) (missing) Result panel 4216 Specimen collection (procedure) (no date) [facility] (missing) (missing) (missing) Result panel 4217 Specimen collection (procedure) (no date) [facility] (missing) (missing) (missing) Result panel 4218 Specimen collection (procedure) (no date) [facility] (missing) (missing) (missing) Result panel 4219 Specimen collection (procedure) (no date) [facility] (missing) (missing) (missing) Result panel 4220 Specimen collection (procedure) (no date) [facility] (missing) (missing) (missing) Result panel 4221 Specimen collection (procedure) (no date) [facility] (missing) (missing) (missing) Result panel 4222 Specimen collection (procedure) (no date) [facility] (missing) (missing) (missing) Result panel 4223 Specimen collection (procedure) (no date) [facility] (missing) (missing) (missing) Result panel 4224 Specimen collection (procedure) (no date) [facility] (missing) (missing) (missing) Result panel 4225 Specimen collection (procedure) (no date) [facility] (missing) (missing) (missing) Result panel 4226 Specimen collection (procedure) (no date) [facility] (missing) (missing) (missing) Result panel 4227 Specimen collection (procedure) (no date) [facility] (missing) (missing) (missing) Result panel 4228 Specimen collection (procedure) (no date) [facility] (missing) (missing) (missing) Result panel 4229 Specimen collection (procedure) (no date) [facility] (missing) (missing) (missing) Result panel 4230 Specimen collection (procedure) (no date) [facility] (missing) (missing) (missing) Result panel 4231 Specimen collection (procedure) (no date) [facility] (missing) (missing) (missing) Result panel 4232 Specimen collection (procedure) (no date) [facility] (missing) (missing) (missing) Result panel 4233 Specimen collection (procedure) (no date) [facility] (missing) (missing) (missing) Result panel 4234 Specimen collection (procedure) (no date) [facility] [facility] (missing) (missing) (missing) Result panel 4235 Specimen collection (procedure) (no date) [facility] (missing) (missing) (missing) Result panel 4236 Specimen collection (procedure) (no date) [facility] (missing) (missing) (missing) Result panel 4237 Specimen collection (procedure) (no date) [facility] (missing) (missing) (missing) Result panel 4238 Specimen collection (procedure) (no date) [facility] (missing) (missing) (missing) Result panel 4239 Specimen collection (procedure) (no date) [facility] (missing) (missing) (missing) Result panel 4240 Specimen collection (procedure) (no date) [facility] (missing) (missing) (missing) Result panel 4241 Specimen collection (procedure) (no date) [facility] (missing) (missing) (missing) Result panel 4242 Specimen collection (procedure) (no date) [facility] (missing) (missing) (missing) Result panel 4243 Specimen collection (procedure) (no date) [facility] (missing) (missing) (missing) Result panel 4244 Specimen collection (procedure) (no date) [facility] (missing) (missing) (missing) Result panel 4245 Specimen collection (procedure) (no date) [facility] (missing) (missing) (missing) Result panel 4246 Specimen collection (procedure) (no date) [facility] (missing) (missing) (missing) Result panel 4247 Specimen collection (procedure) (no date) [facility] (missing) (missing) (missing) Result panel 4248 Specimen collection (procedure) (no date) [facility] (missing) (missing) (missing) Result panel 4249 Specimen collection (procedure) (no date) [facility] (missing) (missing) (missing) Result panel 4250 Specimen collection (procedure) (no date) [facility] (missing) (missing) (missing) Result panel 4251 Specimen collection (procedure) (no date) [facility] (missing) (missing) (missing) Result panel 4252 Specimen collection (procedure) (no date) [facility] (missing) (missing) (missing) Result panel 4253 Specimen collection (procedure) (no date) [facility] (missing) (missing) (missing) Result panel 4254 Specimen collection (procedure) (no date) [facility] (missing) (missing) (missing) Result panel 4255 Specimen collection (procedure) (no date) [facility] (missing) (missing) (missing) Result panel 4256 Specimen collection (procedure) (no date) [facility] (missing) (missing) (missing) Result panel 4257 Specimen collection (procedure) (no date) [facility] (missing) (missing) (missing) Result panel 4258 Specimen collection (procedure) (no date) [facility] (missing) (missing) (missing) Result panel 4259 Specimen collection (procedure) (no date) [facility] (missing) (missing) (missing) Result panel 4260 Specimen collection (procedure) (no date) [facility] (missing) (missing) (missing) Result panel 4261 Specimen collection (procedure) (no date) [facility] (missing) (missing) (missing) Result panel 4262 Specimen collection (procedure) (no date) [facility] (missing) (missing) (missing) Result panel 4263 Specimen collection (procedure) (no date) [facility] (missing) (missing) (missing) Result panel 4264 Specimen collection (procedure) (no date) [facility] (missing) (missing) (missing) Result panel 4265 Specimen collection (procedure) (no date) [facility] (missing) (missing) (missing) Result panel 4266 Specimen collection (procedure) (no date) [facility] (missing) (missing) (missing) Result panel 4267 Specimen collection (procedure) (no date) [facility] (missing) (missing) (missing) Result panel 4268 Specimen collection (procedure) (no date) [facility] (missing) (missing) (missing) Result panel 4269 Specimen collection (procedure) (no date) [facility] (missing) (missing) (missing) Result panel 4270 Specimen collection (procedure) (no date) [facility] (missing) (missing) (missing) Result panel 4271 Specimen collection (procedure) (no date) [facility] (missing) (missing) (missing) Result panel 4272 Specimen collection (procedure) (no date) [facility] (missing) (missing) (missing) Result panel 4273 Specimen collection (procedure) (no date) [facility] (missing) (missing) (missing) Result panel 4274 Specimen collection (procedure) (no date) [facility] (missing) (missing) (missing) Result panel 4275 Specimen collection (procedure) (no date) [facility] (missing) (missing) (missing) Result panel 4276 Specimen collection (procedure) (no date) [facility] (missing) (missing) (missing) Result panel 4277 Specimen collection (procedure) (no date) [facility] (missing) (missing) (missing) Result panel 4278 Specimen collection (procedure) (no date) [facility] (missing) (missing) (missing) Result panel 4279 Specimen collection (procedure) (no date) [facility] (missing) (missing) (missing) Result panel 4280 Specimen collection (procedure) (no date) [facility] (missing) (missing) (missing) Result panel 4281 Specimen collection (procedure) (no date) [facility] (missing) (missing) (missing) Result panel 4282 Specimen collection (procedure) (no date) [facility] (missing) (missing) (missing) Result panel 4283 Specimen collection (procedure) (no date) [facility] (missing) (missing) (missing) Result panel 4284 Specimen collection (procedure) (no date) [facility] (missing) (missing) (missing) Result panel 4285 Specimen collection (procedure) (no date) [facility] (missing) (missing) (missing) Result panel 4286 Specimen collection (procedure) (no date) [facility] (missing) (missing) (missing) Result panel 4287 Specimen collection (procedure) (no date) [facility] (missing) (missing) (missing) Result panel 4288 Specimen collection (procedure) (no date) [facility] (missing) (missing) (missing) Result panel 4289 Specimen collection (procedure) (no date) [facility] (missing) (missing) (missing) Result panel 4290 Specimen collection (procedure) (no date) [facility] (missing) (missing) (missing) Result panel 4291 Specimen collection (procedure) (no date) [facility] (missing) (missing) (missing) Result panel 4292 Specimen collection (procedure) (no date) [facility] (missing) (missing) (missing) Result panel 4293 Specimen collection (procedure) (no date) [facility] (missing) (missing) (missing) Result panel 4294 Specimen collection (procedure) (no date) [facility] (missing) (missing) (missing) Result panel 4295 Specimen collection (procedure) (no date) [facility] (missing) (missing) (missing) Result panel 4296 Specimen collection (procedure) (no date) [facility] (missing) (missing) (missing) Result panel 4297 Specimen collection (procedure) (no date) [facility] (missing) (missing) (missing) Result panel 4298 Specimen collection (procedure) (no date) [facility] (missing) (missing) (missing) Result panel 4299 Specimen collection (procedure) (no date) [facility] (missing) (missing) (missing) Result panel 4300 Specimen collection (procedure) (no date) [facility] (missing) (missing) (missing) Result panel 4301 Specimen collection (procedure) (no date) [facility] (missing) (missing) (missing) Result panel 4302 Specimen collection (procedure) (no date) [facility] (missing) (missing) (missing) Result panel 4303 Specimen collection (procedure) (no date) [facility] (missing) (missing) (missing) Result panel 4304 Specimen collection (procedure) (no date) [facility] (missing) (missing) (missing) Result panel 4305 Specimen collection (procedure) (no date) [facility] (missing) (missing) (missing) Result panel 4306 Specimen collection (procedure) (no date) [facility] (missing) (missing) (missing) Result panel 4307 Specimen collection (procedure) (no date) [facility] (missing) (missing) (missing) Result panel 4308 Specimen collection (procedure) (no date) [facility] (missing) (missing) (missing) Result panel 4309 Specimen collection (procedure) (no date) [facility] (missing) (missing) (missing) Result panel 4310 Specimen collection (procedure) (no date) [facility] (missing) (missing) (missing) Result panel 4311 Specimen collection (procedure) (no date) [facility] (missing) (missing) (missing) Result panel 4312 Specimen collection (procedure) (no date) [facility] (missing) (missing) (missing) Result panel 4313 Specimen collection (procedure) (no date) [facility] (missing) (missing) (missing) Result panel 4314 Specimen collection (procedure) (no date) [facility] (missing) (missing) (missing) Result panel 4315 Specimen collection (procedure) (no date) [facility] (missing) (missing) (missing) Result panel 4316 Specimen collection (procedure) (no date) [facility] (missing) (missing) (missing) Result panel 4317 Specimen collection (procedure) (no date) [facility] (missing) (missing) (missing) Result panel 4318 Specimen collection (procedure) (no date) [facility] (missing) (missing) (missing) Result panel 4319 Specimen collection (procedure) (no date) [facility] (missing) (missing) (missing) Result panel 4320 Specimen collection (procedure) (no date) [facility] (missing) (missing) (missing) Result panel 4321 Specimen collection (procedure) (no date) [facility] (missing) (missing) (missing) Result panel 4322 Specimen collection (procedure) (no date) [facility] (missing) (missing) (missing) Result panel 4323 Specimen collection (procedure) (no date) [facility] (missing) (missing) (missing) Result panel 4324 Specimen collection (procedure) (no date) [facility] (missing) (missing) (missing) Result panel 4325 Specimen collection (procedure) (no date) [facility] (missing) (missing) (missing) Result panel 4326 Specimen collection (procedure) (no date) [facility] (missing) (missing) (missing) Result panel 4327 Specimen collection (procedure) (no date) [facility] (missing) (missing) (missing) Result panel 4328 Specimen collection (procedure) (no date) [facility] (missing) (missing) (missing) Result panel 4329 Specimen collection (procedure) (no date) [facility] (missing) (missing) (missing) Result panel 4330 Specimen collection (procedure) (no date) [facility] (missing) (missing) (missing) Result panel 4331 Specimen collection (procedure) (no date) [facility] (missing) (missing) (missing) Result panel 4332 Specimen collection (procedure) (no date) [facility] (missing) (missing) (missing) Result panel 4333 Specimen collection (procedure) (no date) [facility] (missing) (missing) (missing) Result panel 4334 Specimen collection (procedure) (no date) [facility] (missing) (missing) (missing) Result panel 4335 Specimen collection (procedure) (no date) [facility] (missing) (missing) (missing) Result panel 4336 Specimen collection (procedure) (no date) [facility] (missing) (missing) (missing) Result panel 4337 Specimen collection (procedure) (no date) [facility] (missing) (missing) (missing) Result panel 4338 Specimen collection (procedure) (no date) [facility] (missing) (missing) (missing) Result panel 4339 Specimen collection (procedure) (no date) [facility] (missing) (missing) (missing) Result panel 4340 Specimen collection (procedure) (no date) [facility] (missing) (missing) (missing) Result panel 4341 Specimen collection (procedure) (no date) [facility] (missing) (missing) (missing) Result panel 4342 Specimen collection (procedure) (no date) [facility] (missing) (missing) (missing) Result panel 4343 Specimen collection (procedure) (no date) [facility] (missing) (missing) (missing) Result panel 4344 Specimen collection (procedure) (no date) [facility] (missing) (missing) (missing) Result panel 4345 Specimen collection (procedure) (no date) [facility] (missing) (missing) (missing) Result panel 4346 Specimen collection (procedure) (no date) [facility] (missing) (missing) (missing) Result panel 4347 Specimen collection (procedure) (no date) [facility] (missing) (missing) (missing) Result panel 4348 Specimen collection (procedure) (no date) [facility] (missing) (missing) (missing) Result panel 4349 Specimen collection (procedure) (no date) [facility] (missing) (missing) (missing) Result panel 4350 Specimen collection (procedure) (no date) [facility] (missing) (missing) (missing) Result panel 4351 Specimen collection (procedure) (no date) [facility] (missing) (missing) (missing) Result panel 4352 Specimen collection (procedure) (no date) [facility] (missing) (missing) (missing) Result panel 4353 Specimen collection (procedure) (no date) [facility] (missing) (missing) (missing) Result panel 4354 Specimen collection (procedure) (no date) [facility] (missing) (missing) (missing) Result panel 4355 Specimen collection (procedure) (no date) [facility] (missing) (missing) (missing) Result panel 4356 Specimen collection (procedure) (no date) [facility] (missing) (missing) (missing) Result panel 4357 Specimen collection (procedure) (no date) [facility] (missing) (missing) (missing) Result panel 4358 Specimen collection (procedure) (no date) [facility] (missing) (missing) (missing) Result panel 4359 Specimen collection (procedure) (no date) [facility] (missing) (missing) (missing) Result panel 4360 Specimen collection (procedure) (no date) [facility] (missing) (missing) (missing) Result panel 4361 Specimen collection (procedure) (no date) [facility] (missing) (missing) (missing) Result panel 4362 Specimen collection (procedure) (no date) [facility] (missing) (missing) (missing) Result panel 4363 Specimen collection (procedure) (no date) [facility] (missing) (missing) (missing) Result panel 4364 Specimen collection (procedure) (no date) [facility] (missing) (missing) (missing) Result panel 4365 Specimen collection (procedure) (no date) [facility] (missing) (missing) (missing) Result panel 4366 Specimen collection (procedure) (no date) [facility] (missing) (missing) (missing) Result panel 4367 Specimen collection (procedure) (no date) [facility] (missing) (missing) (missing) Result panel 4368 Specimen collection (procedure) (no date) [facility] (missing) (missing) (missing) Result panel 4369 Specimen collection (procedure) (no date) [facility] (missing) (missing) (missing) Result panel 4370 Specimen collection (procedure) (no date) [facility] (missing) (missing) (missing) Result panel 4371 Specimen collection (procedure) (no date) [facility] (missing) (missing) (missing) Result panel 4372 Specimen collection (procedure) (no date) [facility] (missing) (missing) (missing) Result panel 4373 Specimen collection (procedure) (no date) [facility] (missing) (missing) (missing) Result panel 4374 Specimen collection (procedure) (no date) [facility] (missing) (missing) (missing) Result panel 4375 Specimen collection (procedure) (no date) [facility] (missing) (missing) (missing) Result panel 4376 Specimen collection (procedure) (no date) [facility] (missing) (missing) (missing) Result panel 4377 Specimen collection (procedure) (no date) [facility] (missing) (missing) (missing) Result panel 4378 Specimen collection (procedure) (no date) [facility] (missing) (missing) (missing) Result panel 4379 Specimen collection (procedure) (no date) [facility] (missing) (missing) (missing) Result panel 4380 Specimen collection (procedure) (no date) [facility] (missing) (missing) (missing) Result panel 4381 Specimen collection (procedure) (no date) [facility] (missing) (missing) (missing) Result panel 4382 Specimen collection (procedure) (no date) [facility] (missing) (missing) (missing) Result panel 4383 Specimen collection (procedure) (no date) [facility] (missing) (missing) (missing) Result panel 4384 Specimen collection (procedure) (no date) [facility] (missing) (missing) (missing) Result panel 4385 Specimen collection (procedure) (no date) [facility] (missing) (missing) (missing) Result panel 4386 Specimen collection (procedure) (no date) [facility] (missing) (missing) (missing) Result panel 4387 Specimen collection (procedure) (no date) [facility] (missing) (missing) (missing) Result panel 4388 Specimen collection (procedure) (no date) [facility] (missing) (missing) (missing) Result panel 4389 Specimen collection (procedure) (no date) [facility] (missing) (missing) (missing) Result panel 4390 Specimen collection (procedure) (no date) [facility] (missing) (missing) (missing) Result panel 4391 Specimen collection (procedure) (no date) [facility] (missing) (missing) (missing) Result panel 4392 Specimen collection (procedure) (no date) [facility] (missing) (missing) (missing) Result panel 4393 Specimen collection (procedure) (no date) [facility] (missing) (missing) (missing) Result panel 4394 Specimen collection (procedure) (no date) [facility] (missing) (missing) (missing) Result panel 4395 Specimen collection (procedure) (no date) [facility] (missing) (missing) (missing) Result panel 4396 Specimen collection (procedure) (no date) [facility] (missing) (missing) (missing) Result panel 4397 Specimen collection (procedure) (no date) [facility] (missing) (missing) (missing) Result panel 4398 Specimen collection (procedure) (no date) [facility] (missing) (missing) (missing) Result panel 4399 Specimen collection (procedure) (no date) [facility] (missing) (missing) (missing) Result panel 4400 Specimen collection (procedure) (no date) [facility] (missing) (missing) (missing) Result panel 4401 Specimen collection (procedure) (no date) [facility] (missing) (missing) (missing) Result panel 4402 Specimen collection (procedure) (no date) [facility] (missing) (missing) (missing) Result panel 4403 Specimen collection (procedure) (no date) [facility] (missing) (missing) (missing) Result panel 4404 Specimen collection (procedure) (no date) [facility] (missing) (missing) (missing) Result panel 4405 Specimen collection (procedure) (no date) [facility] (missing) (missing) (missing) Result panel 4406 Specimen collection (procedure) (no date) [facility] (missing) (missing) (missing) Result panel 4407 Specimen collection (procedure) (no date) [facility] (missing) (missing) (missing) Result panel 4408 Specimen collection (procedure) (no date) [facility] (missing) (missing) (missing) Result panel 4409 Specimen collection (procedure) (no date) [facility] (missing) (missing) (missing) Result panel 4410 Specimen collection (procedure) (no date) [facility] (missing) (missing) (missing) Result panel 4411 Specimen collection (procedure) (no date) [facility] (missing) (missing) (missing) Result panel 4412 Specimen collection (procedure) (no date) [facility] (missing) (missing) (missing) Result panel 4413 Specimen collection (procedure) (no date) [facility] (missing) (missing) (missing) Result panel 4414 Specimen collection (procedure) (no date) [facility] (missing) (missing) (missing) Result panel 4415 Specimen collection (procedure) (no date) [facility] (missing) (missing) (missing) Result panel 4416 Specimen collection (procedure) (no date) [facility] (missing) (missing) (missing) Result panel 4417 Specimen collection (procedure) (no date) [facility] (missing) (missing) (missing) Result panel 4418 Specimen collection (procedure) (no date) [facility] (missing) (missing) (missing) Result panel 4419 Specimen collection (procedure) (no date) [facility] (missing) (missing) (missing) Result panel 4420 Specimen collection (procedure) (no date) [facility] (missing) (missing) (missing) Result panel 4421 Specimen collection (procedure) (no date) [facility] (missing) (missing) (missing) Result panel 4422 Specimen collection (procedure) (no date) [facility] (missing) (missing) (missing) Result panel 4423 Specimen collection (procedure) (no date) [facility] (missing) (missing) (missing) Result panel 4424 Specimen collection (procedure) (no date) [facility] (missing) (missing) (missing) Result panel 4425 Specimen collection (procedure) (no date) [facility] (missing) (missing) (missing) Result panel 4426 Specimen collection (procedure) (no date) [facility] (missing) (missing) (missing) Result panel 4427 Specimen collection (procedure) (no date) [facility] (missing) (missing) (missing) Result panel 4428 Specimen collection (procedure) (no date) [facility] (missing) (missing) (missing) Result panel 4429 Specimen collection (procedure) (no date) [facility] (missing) (missing) (missing) Result panel 4430 Specimen collection (procedure) (no date) [facility] (missing) (missing) (missing) Result panel 4431 Specimen collection (procedure) (no date) [facility] (missing) (missing) (missing) Result panel 4432 Specimen collection (procedure) (no date) [facility] (missing) (missing) (missing) Result panel 4433 Specimen collection (procedure) (no date) [facility] (missing) (missing) (missing) Result panel 4434 Specimen collection (procedure) (no date) [facility] (missing) (missing) (missing) Result panel 4435 Specimen collection (procedure) (no date) [facility] (missing) (missing) (missing) Result panel 4436 Specimen collection (procedure) (no date) [facility] (missing) (missing) (missing) Result panel 4437 Specimen collection (procedure) (no date) [facility] (missing) (missing) (missing) Result panel 4438 Specimen collection (procedure) (no date) [facility] (missing) (missing) (missing) Result panel 4439 Specimen collection (procedure) (no date) [facility] (missing) (missing) (missing) Result panel 4440 Specimen collection (procedure) (no date) [facility] (missing) (missing) (missing) Result panel 4441 Specimen collection (procedure) (no date) [facility] (missing) (missing) (missing) Result panel 4442 Specimen collection (procedure) (no date) [facility] (missing) (missing) (missing) Result panel 4443 Specimen collection (procedure) (no date) [facility] (missing) (missing) (missing) Result panel 4444 Specimen collection (procedure) (no date) [facility] (missing) (missing) (missing) Result panel 4445 Specimen collection (procedure) (no date) [facility] (missing) (missing) (missing) Result panel 4446 Specimen collection (procedure) (no date) [facility] (missing) (missing) (missing) Result panel 4447 Specimen collection (procedure) (no date) [facility] (missing) (missing) (missing) Result panel 4448 Specimen collection (procedure) (no date) [facility] (missing) (missing) (missing) Result panel 4449 Specimen collection (procedure) (no date) [facility] (missing) (missing) (missing) Result panel 4450 Specimen collection (procedure) (no date) [facility] (missing) (missing) (missing) Result panel 4451 Specimen collection (procedure) (no date) [facility] (missing) (missing) (missing) Result panel 4452 Specimen collection (procedure) (no date) [facility] (missing) (missing) (missing) Result panel 4453 Specimen collection (procedure) (no date) [facility] (missing) (missing) (missing) Result panel 4454 Specimen collection (procedure) (no date) [facility] (missing) (missing) (missing) Result panel 4455 Specimen collection (procedure) (no date) [facility] (missing) (missing) (missing) Result panel 4456 Specimen collection (procedure) (no date) [facility] (missing) (missing) (missing) Result panel 4457 Specimen collection (procedure) (no date) [facility] (missing) (missing) (missing) Result panel 4458 Specimen collection (procedure) (no date) [facility] (missing) (missing) (missing) Result panel 4459 Specimen collection (procedure) (no date) [facility] (missing) (missing) (missing) Result panel 4460 Specimen collection (procedure) (no date) [facility] (missing) (missing) (missing) Result panel 4461 Specimen collection (procedure) (no date) [facility] (missing) (missing) (missing) Result panel 4462 Specimen collection (procedure) (no date) [facility] (missing) (missing) (missing) Result panel 4463 Specimen collection (procedure) (no date) [facility] (missing) (missing) (missing) Result panel 4464 Specimen collection (procedure) (no date) [facility] (missing) (missing) (missing) Result panel 4465 Specimen collection (procedure) (no date) [facility] (missing) (missing) (missing) Result panel 4466 Specimen collection (procedure) (no date) [facility] (missing) (missing) (missing) Result panel 4467 Specimen collection (procedure) (no date) [facility] (missing) (missing) (missing) Result panel 4468 Specimen collection (procedure) (no date) [facility] (missing) (missing) (missing) Result panel 4469 Specimen collection (procedure) (no date) [facility] (missing) (missing) (missing) Result panel 4470 Specimen collection (procedure) (no date) [facility] (missing) (missing) (missing) Result panel 4471 Specimen collection (procedure) (no date) [facility] (missing) (missing) (missing) Result panel 4472 Specimen collection (procedure) (no date) [facility] (missing) (missing) (missing) Result panel 4473 Specimen collection (procedure) (no date) [facility] (missing) (missing) (missing) Result panel 4474 Specimen collection (procedure) (no date) [facility] (missing) (missing) (missing) Result panel 4475 Specimen collection (procedure) (no date) [facility] (missing) (missing) (missing) Result panel 4476 Specimen collection (procedure) (no date) [facility] (missing) (missing) (missing) Result panel 4477 Specimen collection (procedure) (no date) [facility] (missing) (missing) (missing) Result panel 4478 Specimen collection (procedure) (no date) [facility] (missing) (missing) (missing) Result panel 4479 Specimen collection (procedure) (no date) [facility] (missing) (missing) (missing) Result panel 4480 Specimen collection (procedure) (no date) [facility] (missing) (missing) (missing) Result panel 4481 Specimen collection (procedure) (no date) [facility] (missing) (missing) (missing) Result panel 4482 Specimen collection (procedure) (no date) [facility] (missing) (missing) (missing) Result panel 4483 Specimen collection (procedure) (no date) [facility] (missing) (missing) (missing) Result panel 4484 Specimen collection (procedure) (no date) [facility] (missing) (missing) (missing) Result panel 4485 Specimen collection (procedure) (no date) [facility] (missing) (missing) (missing) Result panel 4486 Specimen collection (procedure) (no date) [facility] (missing) (missing) (missing) Result panel 4487 Specimen collection (procedure) (no date) [facility] (missing) (missing) (missing) Result panel 4488 Specimen collection (procedure) (no date) [facility] (missing) (missing) (missing) Result panel 4489 Albumin/Globulin [Mass Ratio] in Serum or Plasma 2025-04-15 16:18:08 [facility] 1.3 (miss ing) (missing) Result panel 4490 Lipase [Enzymatic activity/volume] in Serum or Plasma 2025-04-15 16:18:08 [facility] 83 U/L (miss ing) Result panel 4491 Procalcitonin [Mass/volume] in Serum or Plasma 2025-04-15 16:18:08 [facility] 0.038 ng/mL (missing) Result panel 4492 Serum prothrombin time 2025-04-15 16:18:08 [facility] 1 2.2 SECONDS (missing) Result panel 4493 INR in Platelet poor plasma by Coagulation assay 2025-04-15 16:18:08 [facility] 1.1 (missing) (miss ing) Result panel 4494 Thromboplastin time, partial (PTT); plasma or whole blood 2025-04-15 16:18:08 [facility] 32 SE CONDS (missing) Result panel 4495 D-dimer 2025-04-15 16:18:08 [facility] 426 ng/m l (missing) Result panel 4496 Creatine kinase [Enzymatic activity/volume] in Serum or Plasma 2025-04-15 16:18:08 [facility] 21 U/L (miss ing) Result panel 4497 Troponin I.cardiac [Mass/volume] in Serum or Plasma 2025-04-15 16:18:08 [facility] < 0.012 ng/mL (missing) (missing) Result panel 4498 Natriuretic peptide.B prohormone N-Terminal [Mass/volume] in Serum or Plasma 2025-04-15 16:18:08 [facility] 61 pg/mL (miss ing) Result panel 4499 Lactate [Mass/volume] in Serum or Plasma 2025-04-15 16:18:08 [facility] 1.2 mmol/L ([facility]) Result panel 4500 Bilirubin.total [Mass/volume ] in Serum or Plasma 2025-04-15 16:18:08 [facility] 0.7 mg/dL (missing) Result panel 4501 Aspartate aminotransferase [Enzymatic activity/volume] in Serum or Plasma 2025-04-15 16:18:08 [facility] 24 IU/L ([facility]) Result panel 4502 Alanine aminotransferase [Enzymatic activity/volume] in Serum or Plasma 2025-04-15 16:18:08 [facility] 17 IU/L ([facility]) Result panel 4503 Alkaline phosphatase [Enzyma tic activity/volume] in Serum or Plasma 2025-04-15 16:18:08 [facility] 112 U/L ([facility]) Result panel 4504 Protein total ser/plas 2025-04-15 16:18:08 [facility] 7 .3 g/dL (missing) Result panel 4505 Albumin [Mass/volume] in Ser um or Plasma 2025-04-15 16:18:08 [facility] 4.1 g/dL ([facility]) Result panel 4506 Globulin [Mass/volume] in Serum by calculation 2025-04-15 16:18:08 [facility] 3.2 g/dL (missing) Result panel 4507 Albumin/Globulin [Mass Ratio] in Serum or Plasma 2025-04-15 16:18:08 [facility] 1.3 ([facility]) (missing) Result panel 4508 Lipase [Enzymatic activity/volume] in Serum or Plasma 2025-04-15 16:18:08 [facility] 83 U/L ([facility]) Result panel 4509 Procalcitonin [Mass/volume] in Serum or Plasma 2025-04-15 16:18:08 [facility] 0.038 ng/mL (missing) Result panel 4510 Serum prothrombin time 2025-04-15 16:18:08 [facility] 1 2.2 SECONDS (missing) Result panel 4511 INR in Platelet poor plasma by Coagulation assay 2025-04-15 16:18:08 [facility] 1.1 (missing) ([facility]) Result panel 4512 Thromboplastin time, partial (PTT); plasma or whole blood 2025-04-15 16:18:08 [facility] 32 SE CONDS (missing) Result panel 4513 D-dimer 2025-04-15 16:18:08 [facility] 426 ng/m l (missing) Result panel 4514 Creatine kinase [Enzymatic activity/volume] in Serum or Plasma 2025-04-15 16:18:08 [facility] 21 U/L (miss ing) Result panel 4515 Troponin I.cardiac [Mass/volume] in Serum or Plasma 2025-04-15 16:18:08 [facility] < 0.012 ng/mL (missing) (missing) Result panel 4516 Natriuretic peptide.B prohormone N-Terminal [Mass/volume] in Serum or Plasma 2025-04-15 16:18:08 [facility] 61 pg/mL (miss ing) Result panel 4517 Lactate [Mass/volume] in Serum or Plasma 2025-04-15 16:18:08 [facility] 1.2 mmol/L (m [facility]) Result panel 4518 Bilirubin.total [Mass/volume ] in Serum or Plasma 2025-04-15 16:18:08 [facility] 0.7 mg/dL (missing) Result panel 4519 Aspartate aminotransferase [Enzymatic activity/volume] in Serum or Plasma 2025-04-15 16:18:08 [facility] 24 IU/L ( [facility]ing) Result panel 4520 Alanine aminotransferase [Enzymatic activity/volume] in Serum or Plasma 2025-04-15 16:18:08 [facility] 17 IU/L ( [facility]ing) Result panel 4521 Alkaline phosphatase [Enzyma tic activity/volume] in Serum or Plasma 2025-04-15 16:18:08 [facility] 112 U/L (miss ing) Result panel 4522 Protein total ser/plas 2025-04-15 16:18:08 [facility] 7 .3 g/dL (missing) Result panel 4523 Albumin [Mass/volume] in Ser um or Plasma 2025-04-15 16:18:08 [facility] 4.1 g/dL (miss ing) Result panel 4524 Globulin [Mass/volume] in Serum by calculation 2025-04-15 16:18:08 [facility] 3.2 g/dL (missing) Result panel 4525 Urine color determination 2025-04-15 16:47:08 [facility] Yellow (missing) (mis sing) Result panel 4526 Urine appearance 2025-04-15 16:47:08 [facility] Cloudy (missing) (missing) Result panel 4527 Urine pH measurement 2025-04-15 16:47:08 [facility] 7.0 (missing) (missing) Result panel 4528 Urine specific gravity measurement 2025-04-15 16:47:08 [facility] <=1.005 (missing) (missing) Result panel 4529 Urine protein measurement 2025-04-15 16:47:08 [facility] Negative (missing) (miss ing) Result panel 4530 Urine glucose measurement 2025-04-15 16:47:08 [facility] Negative g/dL (missing) (missing) Result panel 4531 Urine ketones measurement 2025-04-15 16:47:08 [facility] Negative (missing) (miss ing) Result panel 4532 Urine occult blood detection 2025-04-15 16:47:08 [facility] Trace-intact (missing) (missing) Result panel 4533 Urine nitrate measurement 2025-04-15 16:47:08 [facility] Negative (missing) (miss ing) Result panel 4534 Urine bilirubin measurement 2025-04-15 16:47:08 [facility] Negative (missing) (miss ing) Result panel 4535 Urine urobilinogen detection 2025-04-15 16:47:08 [facility] 1.0 E.U./dL (miss ing) Result panel 4536 Urine leukocyte esterase detection 2025-04-15 16:47:08 [facility] 3+ (missing) (miss ing) Result panel 4537 Microscopic analysis of urine for red blood cells (RBC) 2025-04-15 16:47:08 [facility] None seen (missing) (missing) Result panel 4538 Microscopic analysis of urine for white blood cells (WBC) 2025-04-15 16:47:08 [facility] 10-30/hpf (missing) (missing) Result panel 4539 Urine squamous epithelial cell detection 2025-04-15 16:47:08 [facility] None seen (missing) (miss ing) Result panel 4540 Amorphous urine sediment 2025-04-15 16:47:08 [facility] 1+ (missing) (missing) Result panel 4541 Urine color determination 2025-04-15 16:47:08 [facility] Yellow (missing) (mis sing) Result panel 4542 Urine appearance 2025-04-15 16:47:08 [facility] Cloudy (missing) (missing) Result panel 4543 Urine pH measurement 2025-04-15 16:47:08 [facility] 7.0 (missing) (missing) Result panel 4544 Urine specific gravity measurement 2025-04-15 16:47:08 [facility] <=1.005 (missing) (missing) Result panel 4545 Urine protein measurement 2025-04-15 16:47:08 [facility] Negative (missing) (miss ing) Result panel 4546 Urine glucose measurement 2025-04-15 16:47:08 [facility] Negative g/dL (missing) (missing) Result panel 4547 Urine ketones measurement 2025-04-15 16:47:08 [facility] Negative (missing) (miss ing) Result panel 4548 Urine occult blood detection 2025-04-15 16:47:08 [facility] Trace-intact (missing) (missing) Result panel 4549 Urine nitrate measurement 2025-04-15 16:47:08 [facility] Negative (missing) (miss ing) Result panel 4550 Urine bilirubin measurement 2025-04-15 16:47:08 [facility] Negative (missing) (miss ing) Result panel 4551 Urine urobilinogen detection 2025-04-15 16:47:08 [facility] 1.0 E.U./dL (miss ing) Result panel 4552 Urine leukocyte esterase detection 2025-04-15 16:47:08 [facility] 3+ (missing) (miss ing) Result panel 4553 Microscopic analysis of urine for red blood cells (RBC) 2025-04-15 16:47:08 [facility] None seen (missing) (missing) Result panel 4554 Microscopic analysis of urine for white blood cells (WBC) 2025-04-15 16:47:08 [facility] 10-30/hpf (missing) (missing) Result panel 4555 Urine squamous epithelial cell detection 2025-04-15 16:47:08 [facility] None seen (missing) (miss ing) Result panel 4556 Amorphous urine sediment 2025-04-15 16:47:08 [facility] 1+ (missing) (missing) Result panel 4557 Serum prothrombin time 2025-04-15 17:18:07 [facility] 1 2.2 SECONDS (missing) Result panel 4558 INR in Platelet poor plasma by Coagulation assay 2025-04-15 17:18:07 [facility] 1.1 (missing) (miss ing) Result panel 4559 Thromboplastin time, partial (PTT); plasma or whole blood 2025-04-15 17:18:07 [facility] 32 SE CONDS (missing) Result panel 4560 D-dimer 2025-04-15 17:18:07 [facility] 426 ng/m l (missing) Result panel 4561 Creatine kinase [Enzymatic activity/volume] in Serum or Plasma 2025-04-15 17:18:07 [facility] 21 U/L ([facility]) Result panel 4562 Troponin I.cardiac [Mass/volume] in Serum or Plasma 2025-04-15 17:18:07 [facility] < 0.012 ng/mL (missing) (missing) Result panel 4563 Natriuretic peptide.B prohormone N-Terminal [Mass/volume] in Serum or Plasma 2025-04-15 17:18:07 [facility] 61 pg/mL ([facility]) Result panel 4564 Lactate [Mass/volume] in Serum or Plasma 2025-04-15 17:18:07 [facility] 1.2 mmol/L ([facility]) Result panel 4565 Bilirubin.total [Mass/volume ] in Serum or Plasma 2025-04-15 17:18:07 [facility] 0.7 mg/dL (missing) Result panel 4566 Aspartate aminotransferase [Enzymatic activity/volume] in Serum or Plasma 2025-04-15 17:18:07 [facility] 24 IU/L ([facility]) Result panel 4567 Alanine aminotransferase [Enzymatic activity/volume] in Serum or Plasma 2025-04-15 17:18:07 [facility] 17 IU/L ([facility]) Result panel 4568 Alkaline phosphatase [Enzyma tic activity/volume] in Serum or Plasma 2025-04-15 17:18:07 [facility] 112 U/L ([facility]) Result panel 4569 Protein total ser/plas 2025-04-15 17:18:07 [facility] 7 .3 g/dL (missing) Result panel 4570 Albumin [Mass/volume] in Ser um or Plasma 2025-04-15 17:18:07 [facility] 4.1 g/dL ([facility]) Result panel 4571 Globulin [Mass/volume] in Serum by calculation 2025-04-15 17:18:07 [facility] 3.2 g/dL (missing) Result panel 4572 Albumin/Globulin [Mass Ratio] in Serum or Plasma 2025-04-15 17:18:07 [facility] 1.3 ([facility]) (missing) Result panel 4573 Lipase [Enzymatic activity/volume] in Serum or Plasma 2025-04-15 17:18:07 [facility] 83 U/L (miss ing) Result panel 4574 Procalcitonin [Mass/volume] in Serum or Plasma 2025-04-15 17:18:07 [facility] 0.038 ng/mL (missing) Result panel 4575 Serum prothrombin time 2025-04-15 17:18:07 [facility] 1 2.2 SECONDS (missing) Result panel 4576 INR in Platelet poor plasma by Coagulation assay 2025-04-15 17:18:07 [facility] 1.1 (missing) ([facility]) Result panel 4577 Thromboplastin time, partial (PTT); plasma or whole blood 2025-04-15 17:18:07 [facility] 32 SE CONDS (missing) Result panel 4578 D-dimer 2025-04-15 17:18:07 [facility] 426 ng/m l (missing) Result panel 4579 Creatine kinase [Enzymatic activity/volume] in Serum or Plasma 2025-04-15 17:18:07 [facility] 21 U/L ([facility]) Result panel 4580 Troponin I.cardiac [Mass/volume] in Serum or Plasma 2025-04-15 17:18:07 [facility] < 0.012 ng/mL (missing) (missing) Result panel 4581 Natriuretic peptide.B prohormone N-Terminal [Mass/volume] in Serum or Plasma 2025-04-15 17:18:07 [facility] 61 pg/mL (miss ing) Result panel 4582 Lactate [Mass/volume] in Serum or Plasma 2025-04-15 17:18:07 [facility] 1.2 mmol/L ([facility]) Result panel 4583 Bilirubin.total [Mass/volume ] in Serum or Plasma 2025-04-15 17:18:07 [facility] 0.7 mg/dL (missing) Result panel 4584 Aspartate aminotransferase [Enzymatic activity/volume] in Serum or Plasma 2025-04-15 17:18:07 [facility] 24 IU/L ( [facility]) Result panel 4585 Alanine aminotransferase [Enzymatic activity/volume] in Serum or Plasma 2025-04-15 17:18:07 [facility] 17 IU/L (m iss[facility]) Result panel 4586 Alkaline phosphatase [Enzyma tic activity/volume] in Serum or Plasma 2025-04-15 17:18:07 [facility] 112 U/L ([facility]) Result panel 4587 Protein total ser/plas 2025-04-15 17:18:07 [facility] 7 .3 g/dL (missing) Result panel 4588 Albumin [Mass/volume] in Ser um or Plasma 2025-04-15 17:18:07 [facility] 4.1 g/dL ([facility]) Result panel 4589 Globulin [Mass/volume] in Serum by calculation 2025-04-15 17:18:07 [facility] 3.2 g/dL (missing) Result panel 4590 Albumin/Globulin [Mass Ratio] in Serum or Plasma 2025-04-15 17:18:07 [facility] 1.3 ([facility]) (missing) Result panel 4591 Lipase [Enzymatic activity/volume] in Serum or Plasma 2025-04-15 17:18:07 [facility] 83 U/L ([facility]) Result panel 4592 Procalcitonin [Mass/volume] in Serum or Plasma 2025-04-15 17:18:07 [facility] 0.038 ng/mL (missing) Result panel 4593 Serum prothrombin time 2025-04-15 17:18:07 [facility] 1 2.2 SECONDS (missing) Result panel 4594 INR in Platelet poor plasma by Coagulation assay 2025-04-15 17:18:07 [facility] 1.1 (missing) ([facility]) Result panel 4595 Thromboplastin time, partial (PTT); plasma or whole blood 2025-04-15 17:18:07 [facility] 32 SE CONDS (missing) Result panel 4596 D-dimer 2025-04-15 17:18:07 [facility] 426 ng/m l (missing) Result panel 4597 Creatine kinase [Enzymatic activity/volume] in Serum or Plasma 2025-04-15 17:18:07 [facility] 21 U/L ([facility]) Result panel 4598 Troponin I.cardiac [Mass/volume] in Serum or Plasma 2025-04-15 17:18:07 [facility] < 0.012 ng/mL (missing) (missing) Result panel 4599 Natriuretic peptide.B prohormone N-Terminal [Mass/volume] in Serum or Plasma 2025-04-15 17:18:07 [facility] 61 pg/mL ([facility]) Result panel 4600 Lactate [Mass/volume] in Serum or Plasma 2025-04-15 17:18:07 [facility] 1.2 mmol/L ([facility]) Result panel 4601 Bilirubin.total [Mass/volume ] in Serum or Plasma 2025-04-15 17:18:07 [facility] 0.7 mg/dL (missing) Result panel 4602 Aspartate aminotransferase [Enzymatic activity/volume] in Serum or Plasma 2025-04-15 17:18:07 [facility] 24 IU/L ([facility]) Result panel 4603 Alanine aminotransferase [Enzymatic activity/volume] in Serum or Plasma 2025-04-15 17:18:07 [facility] 17 IU/L ([facility]) Result panel 4604 Alkaline phosphatase [Enzyma tic activity/volume] in Serum or Plasma 2025-04-15 17:18:07 [facility] 112 U/L ([facility]) Result panel 4605 Protein total ser/plas 2025-04-15 17:18:07 [facility] 7 .3 g/dL (missing) Result panel 4606 Albumin [Mass/volume] in Ser um or Plasma 2025-04-15 17:18:07 [facility] 4.1 g/dL ([facility]) Result panel 4607 Globulin [Mass/volume] in Serum by calculation 2025-04-15 17:18:07 [facility] 3.2 g/dL (missing) Result panel 4608 Albumin/Globulin [Mass Ratio] in Serum or Plasma 2025-04-15 17:18:07 [facility] 1.3 ([facility]) (missing) Result panel 4609 Lipase [Enzymatic activity/volume] in Serum or Plasma 2025-04-15 17:18:07 [facility] 83 U/L ([facility]) Result panel 4610 Procalcitonin [Mass/volume] in Serum or Plasma 2025-04-15 17:18:07 [facility] 0.038 ng/mL (missing) Result panel 4611 Serum prothrombin time 2025-04-15 17:18:07 [facility] 1 2.2 SECONDS (missing) Result panel 4612 INR in Platelet poor plasma by Coagulation assay 2025-04-15 17:18:07 [facility] 1.1 (missing) (miss ing) Result panel 4613 Thromboplastin time, partial (PTT); plasma or whole blood 2025-04-15 17:18:07 [facility] 32 SE CONDS (missing) Result panel 4614 D-dimer 2025-04-15 17:18:07 [facility] 426 ng/m l (missing) Result panel 4615 Creatine kinase [Enzymatic activity/volume] in Serum or Plasma 2025-04-15 17:18:07 [facility] 21 U/L ([facility]) Result panel 4616 Troponin I.cardiac [Mass/volume] in Serum or Plasma 2025-04-15 17:18:07 [facility] < 0.012 ng/mL (missing) (missing) Result panel 4617 Natriuretic peptide.B prohormone N-Terminal [Mass/volume] in Serum or Plasma 2025-04-15 17:18:07 [facility] 61 pg/mL ([facility]) Result panel 4618 Lactate [Mass/volume] in Serum or Plasma 2025-04-15 17:18:07 [facility] 1.2 mmol/L ([facility]) Result panel 4619 Bilirubin.total [Mass/volume ] in Serum or Plasma 2025-04-15 17:18:07 [facility] 0.7 mg/dL (missing) Result panel 4620 Aspartate aminotransferase [Enzymatic activity/volume] in Serum or Plasma 2025-04-15 17:18:07 [facility] 24 IU/L ([facility]) Result panel 4621 Alanine aminotransferase [Enzymatic activity/volume] in Serum or Plasma 2025-04-15 17:18:07 [facility] 17 IU/L ([facility]) Result panel 4622 Alkaline phosphatase [Enzyma tic activity/volume] in Serum or Plasma 2025-04-15 17:18:07 [facility] 112 U/L ([facility]) Result panel 4623 Protein total ser/plas 2025-04-15 17:18:07 [facility] 7 .3 g/dL (missing) Result panel 4624 Albumin [Mass/volume] in Ser um or Plasma 2025-04-15 17:18:07 [facility] 4.1 g/dL (miss ing) Result panel 4625 Globulin [Mass/volume] in Serum by calculation 2025-04-15 17:18:07 [facility] 3.2 g/dL (missing) Result panel 4626 Albumin/Globulin [Mass Ratio] in Serum or Plasma 2025-04-15 17:18:07 [facility] 1.3 ([facility]) (missing) Result panel 4627 Lipase [Enzymatic activity/volume] in Serum or Plasma 2025-04-15 17:18:07 [facility] 83 U/L ([facility]) Result panel 4628 Procalcitonin [Mass/volume] in Serum or Plasma 2025-04-15 17:18:07 [facility] 0.038 ng/mL (missing) Result panel 4629 Serum prothrombin time 2025-04-15 17:18:07 [facility] 1 2.2 SECONDS (missing) Result panel 4630 INR in Platelet poor plasma by Coagulation assay 2025-04-15 17:18:07 [facility] 1.1 (missing) ([facility]) Result panel 4631 Thromboplastin time, partial (PTT); plasma or whole blood 2025-04-15 17:18:07 [facility] 32 SE CONDS (missing) Result panel 4632 D-dimer 2025-04-15 17:18:07 [facility] 426 ng/m l (missing) Result panel 4633 Creatine kinase [Enzymatic activity/volume] in Serum or Plasma 2025-04-15 17:18:07 [facility] 21 U/L ([facility]) Result panel 4634 Troponin I.cardiac [Mass/volume] in Serum or Plasma 2025-04-15 17:18:07 [facility] < 0.012 ng/mL (missing) (missing) Result panel 4635 Natriuretic peptide.B prohormone N-Terminal [Mass/volume] in Serum or Plasma 2025-04-15 17:18:07 [facility] 61 pg/mL ([facility]) Result panel 4636 Lactate [Mass/volume] in Serum or Plasma 2025-04-15 17:18:07 [facility] 1.2 mmol/L ([facility]) Result panel 4637 Bilirubin.total [Mass/volume ] in Serum or Plasma 2025-04-15 17:18:07 [facility] 0.7 mg/dL (missing) Result panel 4638 Aspartate aminotransferase [Enzymatic activity/volume] in Serum or Plasma 2025-04-15 17:18:07 [facility] 24 IU/L ([facility]) Result panel 4639 Alanine aminotransferase [Enzymatic activity/volume] in Serum or Plasma 2025-04-15 17:18:07 [facility] 17 IU/L ([facility]) Result panel 4640 Alkaline phosphatase [Enzyma tic activity/volume] in Serum or Plasma 2025-04-15 17:18:07 [facility] 112 U/L ([facility]) Result panel 4641 Protein total ser/plas 2025-04-15 17:18:07 [facility] 7 .3 g/dL (missing) Result panel 4642 Albumin [Mass/volume] in Ser um or Plasma 2025-04-15 17:18:07 [facility] 4.1 g/dL ([facility]) Result panel 4643 Globulin [Mass/volume] in Serum by calculation 2025-04-15 17:18:07 [facility] 3.2 g/dL (missing) Result panel 4644 Albumin/Globulin [Mass Ratio] in Serum or Plasma 2025-04-15 17:18:07 [facility] 1.3 ([facility]) (missing) Result panel 4645 Lipase [Enzymatic activity/volume] in Serum or Plasma 2025-04-15 17:18:07 [facility] 83 U/L ([facility]) Result panel 4646 Procalcitonin [Mass/volume] in Serum or Plasma 2025-04-15 17:18:07 [facility] 0.038 ng/mL (missing) Result panel 4647 Serum prothrombin time 2025-04-15 17:18:07 [facility] 1 2.2 SECONDS (missing) Result panel 4648 INR in Platelet poor plasma by Coagulation assay 2025-04-15 17:18:07 [facility] 1.1 (missing) ([facility]) Result panel 4649 Thromboplastin time, partial (PTT); plasma or whole blood 2025-04-15 17:18:07 [facility] 32 SE CONDS (missing) Result panel 4650 D-dimer 2025-04-15 17:18:07 [facility] 426 ng/m l (missing) Result panel 4651 Creatine kinase [Enzymatic activity/volume] in Serum or Plasma 2025-04-15 17:18:07 [facility] 21 U/L ([facility]) Result panel 4652 Troponin I.cardiac [Mass/volume] in Serum or Plasma 2025-04-15 17:18:07 [facility] < 0.012 ng/mL (missing) (missing) Result panel 4653 Natriuretic peptide.B prohormone N-Terminal [Mass/volume] in Serum or Plasma 2025-04-15 17:18:07 [facility] 61 pg/mL ([facility]) Result panel 4654 Lactate [Mass/volume] in Serum or Plasma 2025-04-15 17:18:07 [facility] 1.2 mmol/L ([facility]) Result panel 4655 Bilirubin.total [Mass/volume ] in Serum or Plasma 2025-04-15 17:18:07 [facility] 0.7 mg/dL (missing) Result panel 4656 Aspartate aminotransferase [Enzymatic activity/volume] in Serum or Plasma 2025-04-15 17:18:07 [facility] 24 IU/L ([facility]) Result panel 4657 Alanine aminotransferase [Enzymatic activity/volume] in Serum or Plasma 2025-04-15 17:18:07 [facility] 17 IU/L ([facility]) Result panel 4658 Alkaline phosphatase [Enzyma tic activity/volume] in Serum or Plasma 2025-04-15 17:18:07 [facility] 112 U/L ([facility]) Result panel 4659 Protein total ser/plas 2025-04-15 17:18:07 [facility] 7 .3 g/dL (missing) Result panel 4660 Albumin [Mass/volume] in Ser um or Plasma 2025-04-15 17:18:07 [facility] 4.1 g/dL ([facility] ing) Result panel 4661 Globulin [Mass/volume] in Serum by calculation 2025-04-15 17:18:07 [facility] 3.2 g/dL (missing) Result panel 4662 Albumin/Globulin [Mass Ratio] in Serum or Plasma 2025-04-15 17:18:07 [facility] 1.3 ([facility]) (missing) Result panel 4663 Lipase [Enzymatic activity/volume] in Serum or Plasma 2025-04-15 17:18:07 [facility] 83 U/L ([facility] ing) Result panel 4664 Procalcitonin [Mass/volume] in Serum or Plasma 2025-04-15 17:18:07 [facility] 0.038 ng/mL (missing) Result panel 4665 Serum prothrombin time 2025-04-15 17:18:07 [facility] 1 2.2 SECONDS (missing) Result panel 4666 INR in Platelet poor plasma by Coagulation assay 2025-04-15 17:18:07 [facility] 1.1 (missing) (miss ing) Result panel 4667 Thromboplastin time, partial (PTT); plasma or whole blood 2025-04-15 17:18:07 [facility] 32 SE CONDS (missing) Result panel 4668 D-dimer 2025-04-15 17:18:07 [facility] 426 ng/m l (missing) Result panel 4669 Serum prothrombin time 2025-04-15 17:18:07 [facility] 1 2.2 SECONDS (missing) Result panel 4670 INR in Platelet poor plasma by Coagulation assay 2025-04-15 17:18:07 [facility] 1.1 (missing) (miss ing) Result panel 4671 Thromboplastin time, partial (PTT); plasma or whole blood 2025-04-15 17:18:07 [facility] 32 SE CONDS (missing) Result panel 4672 D-dimer 2025-04-15 17:18:07 [facility] 426 ng/m l (missing) Result panel 4673 Creatine kinase [Enzymatic activity/volume] in Serum or Plasma 2025-04-15 17:18:07 [facility] 21 U/L ([facility]) Result panel 4674 Troponin I.cardiac [Mass/volume] in Serum or Plasma 2025-04-15 17:18:07 [facility] < 0.012 ng/mL (missing) (missing) Result panel 4675 Natriuretic peptide.B prohormone N-Terminal [Mass/volume] in Serum or Plasma 2025-04-15 17:18:07 [facility] 61 pg/mL (miss ing) Result panel 4676 Lactate [Mass/volume] in Serum or Plasma 2025-04-15 17:18:07 [facility] 1.2 mmol/L ([facility]) Result panel 4677 Bilirubin.total [Mass/volume ] in Serum or Plasma 2025-04-15 17:18:07 [facility] 0.7 mg/dL (missing) Result panel 4678 Aspartate aminotransferase [Enzymatic activity/volume] in Serum or Plasma 2025-04-15 17:18:07 [facility] 24 IU/L ([facility]) Result panel 4679 Alanine aminotransferase [Enzymatic activity/volume] in Serum or Plasma 2025-04-15 17:18:07 [facility] 17 IU/L ([facility]) Result panel 4680 Alkaline phosphatase [Enzyma tic activity/volume] in Serum or Plasma 2025-04-15 17:18:07 [facility] 112 U/L (miss ing) Result panel 4681 Protein total ser/plas 2025-04-15 17:18:07 [facility] 7 .3 g/dL (missing) Result panel 4682 Albumin [Mass/volume] in Ser um or Plasma 2025-04-15 17:18:07 [facility] 4.1 g/dL ([facility]) Result panel 4683 Globulin [Mass/volume] in Serum by calculation 2025-04-15 17:18:07 [facility] 3.2 g/dL (missing) Result panel 4684 Albumin/Globulin [Mass Ratio] in Serum or Plasma 2025-04-15 17:18:07 [facility] 1.3 ([facility]) (missing) Result panel 4685 Lipase [Enzymatic activity/volume] in Serum or Plasma 2025-04-15 17:18:07 [facility] 83 U/L ([facility]) Result panel 4686 Procalcitonin [Mass/volume] in Serum or Plasma 2025-04-15 17:18:07 [facility] 0.038 ng/mL (missing) Result panel 4687 Creatine kinase [Enzymatic activity/volume] in Serum or Plasma 2025-04-15 17:18:07 [facility] 21 U/L ([facility]) Result panel 4688 Troponin I.cardiac [Mass/volume] in Serum or Plasma 2025-04-15 17:18:07 [facility] < 0.012 ng/mL (missing) (missing) Result panel 4689 Natriuretic peptide.B prohormone N-Terminal [Mass/volume] in Serum or Plasma 2025-04-15 17:18:07 [facility] 61 pg/mL ([facility]) Result panel 4690 Lactate [Mass/volume] in Serum or Plasma 2025-04-15 17:18:07 [facility] 1.2 mmol/L ([facility]) Result panel 4691 Bilirubin.total [Mass/volume ] in Serum or Plasma 2025-04-15 17:18:07 [facility] 0.7 mg/dL (missing) Result panel 4692 Aspartate aminotransferase [Enzymatic activity/volume] in Serum or Plasma 2025-04-15 17:18:07 [facility] 24 IU/L ([facility]) Result panel 4693 Alanine aminotransferase [Enzymatic activity/volume] in Serum or Plasma 2025-04-15 17:18:07 [facility] 17 IU/L ([facility]) Result panel 4694 Alkaline phosphatase [Enzyma tic activity/volume] in Serum or Plasma 2025-04-15 17:18:07 [facility] 112 U/L ([facility]) Result panel 4695 Protein total ser/plas 2025-04-15 17:18:07 [facility] 7 .3 g/dL (missing) Result panel 4696 Albumin [Mass/volume] in Ser um or Plasma 2025-04-15 17:18:07 [facility] 4.1 g/dL (miss ing) Result panel 4697 Globulin [Mass/volume] in Serum by calculation 2025-04-15 17:18:07 [facility] 3.2 g/dL (missing) Result panel 4698 Albumin/Globulin [Mass Ratio] in Serum or Plasma 2025-04-15 17:18:07 [facility] 1.3 ([facility]) (missing) Result panel 4699 Lipase [Enzymatic activity/volume] in Serum or Plasma 2025-04-15 17:18:07 [facility] 83 U/L ([facility]) Result panel 4700 Procalcitonin [Mass/volume] in Serum or Plasma 2025-04-15 17:18:07 [facility] 0.038 ng/mL (missing) Result panel 4701 Serum prothrombin time 2025-04-15 17:18:07 [facility] 1 2.2 SECONDS (missing) Result panel 4702 INR in Platelet poor plasma by Coagulation assay 2025-04-15 17:18:07 [facility] 1.1 (missing) ([facility]) Result panel 4703 Thromboplastin time, partial (PTT); plasma or whole blood 2025-04-15 17:18:07 [facility] 32 SE CONDS (missing) Result panel 4704 D-dimer 2025-04-15 17:18:07 [facility] 426 ng/m l (missing) Result panel 4705 Creatine kinase [Enzymatic activity/volume] in Serum or Plasma 2025-04-15 17:18:07 [facility] 21 U/L (miss ing) Result panel 4706 Troponin I.cardiac [Mass/volume] in Serum or Plasma 2025-04-15 17:18:07 [facility] < 0.012 ng/mL (missing) (missing) Result panel 4707 Natriuretic peptide.B prohormone N-Terminal [Mass/volume] in Serum or Plasma 2025-04-15 17:18:07 [facility] 61 pg/mL ([facility]) Result panel 4708 Lactate [Mass/volume] in Serum or Plasma 2025-04-15 17:18:07 [facility] 1.2 mmol/L ([facility]) Result panel 4709 Bilirubin.total [Mass/volume ] in Serum or Plasma 2025-04-15 17:18:07 [facility] 0.7 mg/dL (missing) Result panel 4710 Aspartate aminotransferase [Enzymatic activity/volume] in Serum or Plasma 2025-04-15 17:18:07 [facility] 24 IU/L ([facility]) Result panel 4711 Alanine aminotransferase [Enzymatic activity/volume] in Serum or Plasma 2025-04-15 17:18:07 [facility] 17 IU/L ([facility]) Result panel 4712 Alkaline phosphatase [Enzyma tic activity/volume] in Serum or Plasma 2025-04-15 17:18:07 [facility] 112 U/L ([facility]) Result panel 4713 Protein total ser/plas 2025-04-15 17:18:07 [facility] 7 .3 g/dL (missing) Result panel 4714 Albumin [Mass/volume] in Ser um or Plasma 2025-04-15 17:18:07 [facility] 4.1 g/dL ([facility]) Result panel 4715 Globulin [Mass/volume] in Serum by calculation 2025-04-15 17:18:07 [facility] 3.2 g/dL (missing) Result panel 4716 Albumin/Globulin [Mass Ratio] in Serum or Plasma 2025-04-15 17:18:07 [facility] 1.3 ([facility]) (missing) Result panel 4717 Lipase [Enzymatic activity/volume] in Serum or Plasma 2025-04-15 17:18:07 [facility] 83 U/L ([facility]) Result panel 4718 Procalcitonin [Mass/volume] in Serum or Plasma 2025-04-15 17:18:07 [facility] 0.038 ng/mL (missing) Result panel 4719 Serum prothrombin time 2025-04-15 17:18:07 [facility] 1 2.2 SECONDS (missing) Result panel 4720 INR in Platelet poor plasma by Coagulation assay 2025-04-15 17:18:07 [facility] 1.1 (missing) ([facility]) Result panel 4721 Thromboplastin time, partial (PTT); plasma or whole blood 2025-04-15 17:18:07 [facility] 32 SE CONDS (missing) Result panel 4722 D-dimer 2025-04-15 17:18:07 [facility] 426 ng/m l (missing) Result panel 4723 Creatine kinase [Enzymatic activity/volume] in Serum or Plasma 2025-04-15 17:18:07 [facility] 21 U/L (miss ing) Result panel 4724 Troponin I.cardiac [Mass/volume] in Serum or Plasma 2025-04-15 17:18:07 [facility] < 0.012 ng/mL (missing) (missing) Result panel 4725 Natriuretic peptide.B prohormone N-Terminal [Mass/volume] in Serum or Plasma 2025-04-15 17:18:07 [facility] 61 pg/mL ([facility]) Result panel 4726 Lactate [Mass/volume] in Serum or Plasma 2025-04-15 17:18:07 [facility] 1.2 mmol/L ([facility]) Result panel 4727 Bilirubin.total [Mass/volume ] in Serum or Plasma 2025-04-15 17:18:07 [facility] 0.7 mg/dL (missing) Result panel 4728 Aspartate aminotransferase [Enzymatic activity/volume] in Serum or Plasma 2025-04-15 17:18:07 [facility] 24 IU/L ([facility]) Result panel 4729 Alanine aminotransferase [Enzymatic activity/volume] in Serum or Plasma 2025-04-15 17:18:07 [facility] 17 IU/L ([facility]) Result panel 4730 Alkaline phosphatase [Enzyma tic activity/volume] in Serum or Plasma 2025-04-15 17:18:07 [facility] 112 U/L ([facility]) Result panel 4731 Protein total ser/plas 2025-04-15 17:18:07 [facility] 7 .3 g/dL (missing) Result panel 4732 Albumin [Mass/volume] in Ser um or Plasma 2025-04-15 17:18:07 [facility] 4.1 g/dL (miss ing) Result panel 4733 Globulin [Mass/volume] in Serum by calculation 2025-04-15 17:18:07 [facility] 3.2 g/dL (missing) Result panel 4734 Albumin/Globulin [Mass Ratio] in Serum or Plasma 2025-04-15 17:18:07 [facility] 1.3 (miss ing) (missing) Result panel 4735 Lipase [Enzymatic activity/volume] in Serum or Plasma 2025-04-15 17:18:07 [facility] 83 U/L ([facility]) Result panel 4736 Procalcitonin [Mass/volume] in Serum or Plasma 2025-04-15 17:18:07 [facility] 0.038 ng/mL (missing) Result panel 4737 Serum prothrombin time 2025-04-15 17:18:07 [facility] 1 2.2 SECONDS (missing) Result panel 4738 INR in Platelet poor plasma by Coagulation assay 2025-04-15 17:18:07 [facility] 1.1 (missing) ([facility]) Result panel 4739 Thromboplastin time, partial (PTT); plasma or whole blood 2025-04-15 17:18:07 [facility] 32 SE CONDS (missing) Result panel 4740 D-dimer 2025-04-15 17:18:07 [facility] 426 ng/m l (missing) Result panel 4741 Creatine kinase [Enzymatic activity/volume] in Serum or Plasma 2025-04-15 17:18:07 [facility] 21 U/L ([facility]) Result panel 4742 Troponin I.cardiac [Mass/volume] in Serum or Plasma 2025-04-15 17:18:07 [facility] < 0.012 ng/mL (missing) (missing) Result panel 4743 Natriuretic peptide.B prohormone N-Terminal [Mass/volume] in Serum or Plasma 2025-04-15 17:18:07 [facility] 61 pg/mL ([facility]) Result panel 4744 Lactate [Mass/volume] in Serum or Plasma 2025-04-15 17:18:07 [facility] 1.2 mmol/L ([facility]) Result panel 4745 Bilirubin.total [Mass/volume ] in Serum or Plasma 2025-04-15 17:18:07 [facility] 0.7 mg/dL (missing) Result panel 4746 Aspartate aminotransferase [Enzymatic activity/volume] in Serum or Plasma 2025-04-15 17:18:07 [facility] 24 IU/L ([facility]) Result panel 4747 Alanine aminotransferase [Enzymatic activity/volume] in Serum or Plasma 2025-04-15 17:18:07 [facility] 17 IU/L ([facility]) Result panel 4748 Alkaline phosphatase [Enzyma tic activity/volume] in Serum or Plasma 2025-04-15 17:18:07 [facility] 112 U/L (miss ing) Result panel 4749 Protein total ser/plas 2025-04-15 17:18:07 [facility] 7 .3 g/dL (missing) Result panel 4750 Albumin [Mass/volume] in Ser um or Plasma 2025-04-15 17:18:07 [facility] 4.1 g/dL (miss ing) Result panel 4751 Globulin [Mass/volume] in Serum by calculation 2025-04-15 17:18:07 [facility] 3.2 g/dL (missing) Result panel 4752 Albumin/Globulin [Mass Ratio] in Serum or Plasma 2025-04-15 17:18:07 [facility] 1.3 ([facility]) (missing) Result panel 4753 Lipase [Enzymatic activity/volume] in Serum or Plasma 2025-04-15 17:18:07 [facility] 83 U/L (miss ing) Result panel 4754 Procalcitonin [Mass/volume] in Serum or Plasma 2025-04-15 17:18:07 [facility] 0.038 ng/mL (missing) Result panel 4755 Serum prothrombin time 2025-04-15 17:18:07 [facility] 1 2.2 SECONDS (missing) Result panel 4756 INR in Platelet poor plasma by Coagulation assay 2025-04-15 17:18:07 [facility] 1.1 (missing) (miss ing) Result panel 4757 Thromboplastin time, partial (PTT); plasma or whole blood 2025-04-15 17:18:07 [facility] 32 SE CONDS (missing) Result panel 4758 D-dimer 2025-04-15 17:18:07 [facility] 426 ng/m l (missing) Result panel 4759 Creatine kinase [Enzymatic activity/volume] in Serum or Plasma 2025-04-15 17:18:07 [facility] 21 U/L (miss ing) Result panel 4760 Troponin I.cardiac [Mass/volume] in Serum or Plasma 2025-04-15 17:18:07 [facility] < 0.012 ng/mL (missing) (missing) Result panel 4761 Natriuretic peptide.B prohormone N-Terminal [Mass/volume] in Serum or Plasma 2025-04-15 17:18:07 [facility] 61 pg/mL (miss ing) Result panel 4762 Lactate [Mass/volume] in Serum or Plasma 2025-04-15 17:18:07 [facility] 1.2 mmol/L ([facility]) Result panel 4763 Bilirubin.total [Mass/volume ] in Serum or Plasma 2025-04-15 17:18:07 [facility] 0.7 mg/dL (missing) Result panel 4764 Aspartate aminotransferase [Enzymatic activity/volume] in Serum or Plasma 2025-04-15 17:18:07 [facility] 24 IU/L ([facility]) Result panel 4765 Alanine aminotransferase [Enzymatic activity/volume] in Serum or Plasma 2025-04-15 17:18:07 [facility] 17 IU/L ([facility]) Result panel 4766 Alkaline phosphatase [Enzyma tic activity/volume] in Serum or Plasma 2025-04-15 17:18:07 [facility] 112 U/L ([facility]) Result panel 4767 Protein total ser/plas 2025-04-15 17:18:07 [facility] 7 .3 g/dL (missing) Result panel 4768 Albumin [Mass/volume] in Ser um or Plasma 2025-04-15 17:18:07 [facility] 4.1 g/dL ([facility]) Result panel 4769 Globulin [Mass/volume] in Serum by calculation 2025-04-15 17:18:07 [facility] 3.2 g/dL (missing) Result panel 4770 Albumin/Globulin [Mass Ratio] in Serum or Plasma 2025-04-15 17:18:07 [facility] 1.3 ([facility]) (missing) Result panel 4771 Lipase [Enzymatic activity/volume] in Serum or Plasma 2025-04-15 17:18:07 [facility] 83 U/L ([facility]) Result panel 4772 Procalcitonin [Mass/volume] in Serum or Plasma 2025-04-15 17:18:07 [facility] 0.038 ng/mL (missing) Result panel 4773 Basophils Percent Auto 2025-04-15 17:28 [facility] 0.5 % (missing) Basophils Absolute Auto 2025-04-15 17:28 [facility] 100 /ul (missing) White Blood Cell Count 2025-04-15 17:28 [facility] 11.9 x10 3/ul (missing) Red Cell Distribution Width 2025-04-15 17:28 [facility] 13.4 % (missing) Hemoglobin 2025-04-15 17:[address] [place] [address] 13.5 g/dl (missing) Platelet Count 2025-04-15 17:[address] [place] [address] 274 x1 0 3/ul (missing) Eosinophils Percent Auto 2025-04-15 17:28 [facility] 3. 5 % (missing) Mean Corpuscular Hemoglobin 2025-04-15 17:[address] [place] [address] 30.0 pg (missing) Lymphocytes Percent Auto 2025-04-15 17:[address] [place] [address] 30 .6 % (missing) Mean Corpuscular HGB Conc 2025-04-15 17:28 [facility] 3 3.5 % (missing) Lymphocytes Absolute Auto 2025-04-15 17:[address] [place] [address] 3 600 /ul (missing) Red Blood Cell Count 2025-04-15 17:[address] [place] [address] 4.50 x10 6/ul (missing) Hematocrit 2025-04-15 17:[address] [place] [address] 40.4 % (missing) Eosinophils Absolute Auto 2025-04-15 17:[address] [place] [address] 4 00 /ul (missing) Monocytes Percent Auto 2025-04-15 17:[address] [place] [address] 5.9 % (missing) Neutrophils Percent Auto 2025-04-15 17:[address] [place] [address] 59 .5 % (missing) Monocytes Absolute Auto 2025-04-15 17:[address] [place] [address] 700 /ul (missing) Neutrophils Absolute Auto 2025-04-15 17:[address] [place] [address] 7 100 /ul (missing) Mean Corpuscular Volume 2025-04-15 17:[address] [place] [address] 89. 7 fl (missing) Result panel 4774 INR 2025-04-15 17:[address] [place] [address] 1.1 (in g) (missing) Prothrombin Time 2025-04-15 17:[address] [place] [address] 12.2 seconds Comment If patient is on warfarin PTT Partial Thromboplastin Bernard 2025-04-15 17:[address] [place] [address] 32 seconds Co mment If patient is on warfarin Adjunctive to Coronary Thrombosis Heparin (0.1 - 0.3 UI/mL) = 40.8 - 62.7 seconds Heparin (0.3 - 0.7 UI/mL) = 62.7 - 106.4 seconds. Result panel 4775 Lactate (Lactic Acid) 2025-04-15 17:[address] [place] [address] 1.2 mmol/l Yes/No query for Sepsis Lactate Rule Y Result panel 4776 Bilirubin Total 2025-04-15 17:41 [facility] 0.7 mg/dl (missing) Creatinine 2025-04-15 17:41 [facility] 1.14 mg/dl (missing) Albumin Globulin Ratio 2025-04-15 17:41 [facility] 1.3 (missing) (missing) Alkaline Phosphatase 2025-04-15 17:41 [facility] 112 u/l (missing) Sodium 2025-04-15 17:41 [facility] 134 mmol/l Physician Instructions if pt has history of CHF Glucose 2025-04-15 17:41 [facility] 144 mg/dl (missing) Alanine Aminotransferase 2025-04-15 17:41 [facility] 17 iu/l (missing) Creatine Kinase 2025-04-15 17:41 [facility] 21 u/l Physician Instructions if pt has history of CHF Aspartate Aminotransferase 2025-04-15 17:41 [facility] 24 iu/l (missing) BUN Creatinine Ratio 2025-04-15 17:[address] [place] [address] 27.2 (missing) (missing) Magnesium 2025-04-15 17:41 [facility] 3.1 mg/dl Physician Instructions if pt has history of CHF Globulin 2025-04-15 17:41 [facility] 3.2 g/dl (missing) Blood Urea Nitrogen 2025-04-15 17:[address] [place] [address] 31 mg/dl (missing) Carbon Dioxide 2025-04-15 17:41 [facility] 31 mmol/l (missing) Albumin 2025-04-15 17:41 [facility] 4.1 g/dl (missing) Potassium 2025-04-15 17:[address] [place] [address] 4.9 mmol/l (missing) Estimated Glomerular Filt Rate 2025-04-15 17:41 [facility] 50 ml/min Reported eGFR is based the CKD-EPI 2020 equation that does not use a race coefficient. An eGFR below 60 mL/min/1.73m2 suggests that some kidney damage has occurred, and indicative of chronic kidney disease if persisting greater than 3 months. An eGFR less than 15 is indicative of kidney failure. Total Protein 2025-04-15 17:41 [facility] 7.3 g/dl (missing) Lipase 2025-04-15 17:41 [facility] 83 u/l Physician Instructions if pt has history of CHF Calcium 2025-04-15 17:41 [facility] 9.3 mg/dl (missing) Chloride 2025-04-15 17:41 [facility] 95 mmol/l (missing) Result panel 4777 Urine color determination 2025-04-15 17:47:07 [facility] Yellow (missing) (mis sing) Result panel 4778 Urine appearance 2025-04-15 17:47:07 [facility] Cloudy (missing) (missing) Result panel 4779 Urine pH measurement 2025-04-15 17:47:07 [facility] 7.0 (missing) (missing) Result panel 4780 Urine specific gravity measurement 2025-04-15 17:47:07 [facility] <=1.005 (missing) (missing) Result panel 4781 Urine protein measurement 2025-04-15 17:47:07 [facility] Negative (missing) (miss ing) Result panel 4782 Urine glucose measurement 2025-04-15 17:47:07 [facility] Negative g/dL (missing) (missing) Result panel 4783 Urine ketones measurement 2025-04-15 17:47:07 [facility] Negative (missing) (miss ing) Result panel 4784 Urine occult blood detection 2025-04-15 17:47:07 [facility] Trace-intact (missing) (missing) Result panel 4785 Urine nitrate measurement 2025-04-15 17:47:07 [facility] Negative (missing) (miss ing) Result panel 4786 Urine bilirubin measurement 2025-04-15 17:47:07 [facility] Negative (missing) (miss ing) Result panel 4787 Urine urobilinogen detection 2025-04-15 17:47:07 [facility] 1.0 E.U./dL (miss ing) Result panel 4788 Urine leukocyte esterase detection 2025-04-15 17:47:07 [facility] 3+ (missing) (miss ing) Result panel 4789 Microscopic analysis of urine for red blood cells (RBC) 2025-04-15 17:47:07 [facility] None seen (missing) (missing) Result panel 4790 Microscopic analysis of urine for white blood cells (WBC) 2025-04-15 17:47:07 [facility] 10-30/hpf (missing) (missing) Result panel 4791 Urine squamous epithelial cell detection 2025-04-15 17:47:07 [facility] None seen (missing) (miss ing) Result panel 4792 Amorphous urine sediment 2025-04-15 17:47:07 [facility] 1+ (missing) (missing) Result panel 4793 Urine color determination 2025-04-15 17:47:07 [facility] Yellow (missing) (mis sing) Result panel 4794 Urine appearance 2025-04-15 17:47:07 [facility] Cloudy (missing) (missing) Result panel 4795 Urine pH measurement 2025-04-15 17:47:07 [facility] 7.0 (missing) (missing) Result panel 4796 Urine specific gravity measurement 2025-04-15 17:47:07 [facility] <=1.005 (missing) (missing) Result panel 4797 Urine protein measurement 2025-04-15 17:47:07 [facility] Negative (missing) (miss ing) Result panel 4798 Urine glucose measurement 2025-04-15 17:47:07 [facility] Negative g/dL (missing) (missing) Result panel 4799 Urine ketones measurement 2025-04-15 17:47:07 [facility] Negative (missing) (miss ing) Result panel 4800 Urine occult blood detection 2025-04-15 17:47:07 [facility] Trace-intact (missing) (missing) Result panel 4801 Urine nitrate measurement 2025-04-15 17:47:07 [facility] Negative (missing) (miss ing) Result panel 4802 Urine bilirubin measurement 2025-04-15 17:47:07 [facility] Negative (missing) (miss ing) Result panel 4803 Urine urobilinogen detection 2025-04-15 17:47:07 [facility] 1.0 E.U./dL (miss ing) Result panel 4804 Urine leukocyte esterase detection 2025-04-15 17:47:07 [facility] 3+ (missing) (miss ing) Result panel 4805 Microscopic analysis of urine for red blood cells (RBC) 2025-04-15 17:47:07 [facility] None seen (missing) (missing) Result panel 4806 Microscopic analysis of urine for white blood cells (WBC) 2025-04-15 17:47:07 [facility] 10-30/hpf (missing) (missing) Result panel 4807 Urine squamous epithelial cell detection 2025-04-15 17:47:07 [facility] None seen (missing) (miss ing) Result panel 4808 Amorphous urine sediment 2025-04-15 17:47:07 [facility] 1+ (missing) (missing) Result panel 4809 Urine color determination 2025-04-15 17:47:07 [facility] Yellow (missing) (mis sing) Result panel 4810 Urine appearance 2025-04-15 17:47:07 [facility] Cloudy (missing) (missing) Result panel 4811 Urine pH measurement 2025-04-15 17:47:07 [facility] 7.0 (missing) (missing) Result panel 4812 Urine specific gravity measurement 2025-04-15 17:47:07 [facility] <=1.005 (missing) (missing) Result panel 4813 Urine protein measurement 2025-04-15 17:47:07 [facility] Negative (missing) (miss ing) Result panel 4814 Urine glucose measurement 2025-04-15 17:47:07 [facility] Negative g/dL (missing) (missing) Result panel 4815 Urine ketones measurement 2025-04-15 17:47:07 [facility] Negative (missing) (miss ing) Result panel 4816 Urine occult blood detection 2025-04-15 17:47:07 [facility] Trace-intact (missing) (missing) Result panel 4817 Urine nitrate measurement 2025-04-15 17:47:07 [facility] Negative (missing) (miss ing) Result panel 4818 Urine bilirubin measurement 2025-04-15 17:47:07 [facility] Negative (missing) (miss ing) Result panel 4819 Urine urobilinogen detection 2025-04-15 17:47:07 [facility] 1.0 E.U./dL (miss ing) Result panel 4820 Urine leukocyte esterase detection 2025-04-15 17:47:07 [facility] 3+ (missing) (miss ing) Result panel 4821 Microscopic analysis of urine for red blood cells (RBC) 2025-04-15 17:47:07 [facility] None seen (missing) (missing) Result panel 4822 Microscopic analysis of urine for white blood cells (WBC) 2025-04-15 17:47:07 [facility] 10-30/hpf (missing) (missing) Result panel 4823 Urine squamous epithelial cell detection 2025-04-15 17:47:07 [facility] None seen (missing) (miss ing) Result panel 4824 Amorphous urine sediment 2025-04-15 17:47:07 [facility] 1+ (missing) (missing) Result panel 4825 Urine color determination 2025-04-15 17:47:07 [facility] Yellow (missing) (mis sing) Result panel 4826 Urine appearance 2025-04-15 17:47:07 [facility] Cloudy (missing) (missing) Result panel 4827 Urine pH measurement 2025-04-15 17:47:07 [facility] 7.0 (missing) (missing) Result panel 4828 Urine specific gravity measurement 2025-04-15 17:47:07 [facility] <=1.005 (missing) (missing) Result panel 4829 Urine protein measurement 2025-04-15 17:47:07 [facility] Negative (missing) (miss ing) Result panel 4830 Urine glucose measurement 2025-04-15 17:47:07 [facility] Negative g/dL (missing) (missing) Result panel 4831 Urine ketones measurement 2025-04-15 17:47:07 [facility] Negative (missing) (miss ing) Result panel 4832 Urine occult blood detection 2025-04-15 17:47:07 [facility] Trace-intact (missing) (missing) Result panel 4833 Urine nitrate measurement 2025-04-15 17:47:07 [facility] Negative (missing) (miss ing) Result panel 4834 Urine bilirubin measurement 2025-04-15 17:47:07 [facility] Negative (missing) (miss ing) Result panel 4835 Urine urobilinogen detection 2025-04-15 17:47:07 [facility] 1.0 E.U./dL (miss ing) Result panel 4836 Urine leukocyte esterase detection 2025-04-15 17:47:07 [facility] 3+ (missing) (miss ing) Result panel 4837 Microscopic analysis of urine for red blood cells (RBC) 2025-04-15 17:47:07 [facility] None seen (missing) (missing) Result panel 4838 Microscopic analysis of urine for white blood cells (WBC) 2025-04-15 17:47:07 [facility] 10-30/hpf (missing) (missing) Result panel 4839 Urine squamous epithelial cell detection 2025-04-15 17:47:07 [facility] None seen (missing) (miss ing) Result panel 4840 Amorphous urine sediment 2025-04-15 17:47:07 [facility] 1+ (missing) (missing) Result panel 4841 Urine color determination 2025-04-15 17:47:07 [facility] Yellow (missing) (mis sing) Result panel 4842 Urine appearance 2025-04-15 17:47:07 [facility] Cloudy (missing) (missing) Result panel 4843 Urine pH measurement 2025-04-15 17:47:07 [facility] 7.0 (missing) (missing) Result panel 4844 Urine specific gravity measurement 2025-04-15 17:47:07 [facility] <=1.005 (missing) (missing) Result panel 4845 Urine protein measurement 2025-04-15 17:47:07 [facility] Negative (missing) (miss ing) Result panel 4846 Urine glucose measurement 2025-04-15 17:47:07 [facility] Negative g/dL (missing) (missing) Result panel 4847 Urine ketones measurement 2025-04-15 17:47:07 [facility] Negative (missing) (miss ing) Result panel 4848 Urine occult blood detection 2025-04-15 17:47:07 [facility] Trace-intact (missing) (missing) Result panel 4849 Urine nitrate measurement 2025-04-15 17:47:07 [facility] Negative (missing) (miss ing) Result panel 4850 Urine bilirubin measurement 2025-04-15 17:47:07 [facility] Negative (missing) (miss ing) Result panel 4851 Urine urobilinogen detection 2025-04-15 17:47:07 [facility] 1.0 E.U./dL (miss ing) Result panel 4852 Urine leukocyte esterase detection 2025-04-15 17:47:07 [facility] 3+ (missing) (miss ing) Result panel 4853 Microscopic analysis of urine for red blood cells (RBC) 2025-04-15 17:47:07 [facility] None seen (missing) (missing) Result panel 4854 Microscopic analysis of urine for white blood cells (WBC) 2025-04-15 17:47:07 [facility] 10-30/hpf (missing) (missing) Result panel 4855 Urine squamous epithelial cell detection 2025-04-15 17:47:07 [facility] None seen (missing) (miss ing) Result panel 4856 Amorphous urine sediment 2025-04-15 17:47:07 [facility] 1+ (missing) (missing) Result panel 4857 Urine color determination 2025-04-15 17:47:07 [facility] Yellow (missing) (mis sing) Result panel 4858 Urine appearance 2025-04-15 17:47:07 [facility] Cloudy (missing) (missing) Result panel 4859 Urine pH measurement 2025-04-15 17:47:07 [facility] 7.0 (missing) (missing) Result panel 4860 Urine specific gravity measurement 2025-04-15 17:47:07 [facility] <=1.005 (missing) (missing) Result panel 4861 Urine protein measurement 2025-04-15 17:47:07 [facility] Negative (missing) (miss ing) Result panel 4862 Urine glucose measurement 2025-04-15 17:47:07 [facility] Negative g/dL (missing) (missing) Result panel 4863 Urine ketones measurement 2025-04-15 17:47:07 [facility] Negative (missing) (miss ing) Result panel 4864 Urine occult blood detection 2025-04-15 17:47:07 [facility] Trace-intact (missing) (missing) Result panel 4865 Urine nitrate measurement 2025-04-15 17:47:07 [facility] Negative (missing) (miss ing) Result panel 4866 Urine bilirubin measurement 2025-04-15 17:47:07 [facility] Negative (missing) (miss ing) Result panel 4867 Urine urobilinogen detection 2025-04-15 17:47:07 [facility] 1.0 E.U./dL (miss ing) Result panel 4868 Urine leukocyte esterase detection 2025-04-15 17:47:07 [facility] 3+ (missing) (miss ing) Result panel 4869 Microscopic analysis of urine for red blood cells (RBC) 2025-04-15 17:47:07 [facility] None seen (missing) (missing) Result panel 4870 Microscopic analysis of urine for white blood cells (WBC) 2025-04-15 17:47:07 [facility] 10-30/hpf (missing) (missing) Result panel 4871 Urine squamous epithelial cell detection 2025-04-15 17:47:07 [facility] None seen (missing) (miss ing) Result panel 4872 Amorphous urine sediment 2025-04-15 17:47:07 [facility] 1+ (missing) (missing) Result panel 4873 Urine color determination 2025-04-15 17:47:07 [facility] Yellow (missing) (mis sing) Result panel 4874 Urine color determination 2025-04-15 17:47:07 [facility] Yellow (missing) (mis sing) Result panel 4875 Urine appearance 2025-04-15 17:47:07 [facility] Cloudy (missing) (missing) Result panel 4876 Urine pH measurement 2025-04-15 17:47:07 [facility] 7.0 (missing) (missing) Result panel 4877 Urine specific gravity measurement 2025-04-15 17:47:07 [facility] <=1.005 (missing) (missing) Result panel 4878 Urine protein measurement 2025-04-15 17:47:07 [facility] Negative (missing) (miss ing) Result panel 4879 Urine glucose measurement 2025-04-15 17:47:07 [facility] Negative g/dL (missing) (missing) Result panel 4880 Urine ketones measurement 2025-04-15 17:47:07 [facility] Negative (missing) (miss ing) Result panel 4881 Urine occult blood detection 2025-04-15 17:47:07 [facility] Trace-intact (missing) (missing) Result panel 4882 Urine nitrate measurement 2025-04-15 17:47:07 [facility] Negative (missing) (miss ing) Result panel 4883 Urine bilirubin measurement 2025-04-15 17:47:07 [facility] Negative (missing) (miss ing) Result panel 4884 Urine urobilinogen detection 2025-04-15 17:47:07 [facility] 1.0 E.U./dL (miss ing) Result panel 4885 Urine appearance 2025-04-15 17:47:07 [facility] Cloudy (missing) (missing) Result panel 4886 Urine leukocyte esterase detection 2025-04-15 17:47:07 [facility] 3+ (missing) (miss ing) Result panel 4887 Microscopic analysis of urine for red blood cells (RBC) 2025-04-15 17:47:07 [facility] None seen (missing) (missing) Result panel 4888 Microscopic analysis of urine for white blood cells (WBC) 2025-04-15 17:47:07 [facility] 10-30/hpf (missing) (missing) Result panel 4889 Urine squamous epithelial cell detection 2025-04-15 17:47:07 [facility] None seen (missing) (miss ing) Result panel 4890 Amorphous urine sediment 2025-04-15 17:47:07 [facility] 1+ (missing) (missing) Result panel 4891 Urine pH measurement 2025-04-15 17:47:07 [facility] 7.0 (missing) (missing) Result panel 4892 Urine specific gravity measurement 2025-04-15 17:47:07 [facility] <=1.005 (missing) (missing) Result panel 4893 Urine protein measurement 2025-04-15 17:47:07 [facility] Negative (missing) (miss ing) Result panel 4894 Urine glucose measurement 2025-04-15 17:47:07 [facility] Negative g/dL (missing) (missing) Result panel 4895 Urine ketones measurement 2025-04-15 17:47:07 [facility] Negative (missing) (miss ing) Result panel 4896 Urine occult blood detection 2025-04-15 17:47:07 [facility] Trace-intact (missing) (missing) Result panel 4897 Urine nitrate measurement 2025-04-15 17:47:07 [facility] Negative (missing) (miss ing) Result panel 4898 Urine bilirubin measurement 2025-04-15 17:47:07 [facility] Negative (missing) (miss ing) Result panel 4899 Urine urobilinogen detection 2025-04-15 17:47:07 [facility] 1.0 E.U./dL (miss ing) Result panel 4900 Urine leukocyte esterase detection 2025-04-15 17:47:07 [facility] 3+ (missing) (miss ing) Result panel 4901 Microscopic analysis of urine for red blood cells (RBC) 2025-04-15 17:47:07 [facility] None seen (missing) (missing) Result panel 4902 Microscopic analysis of urine for white blood cells (WBC) 2025-04-15 17:47:07 [facility] 10-30/hpf (missing) (missing) Result panel 4903 Urine squamous epithelial cell detection 2025-04-15 17:47:07 [facility] None seen (missing) (miss ing) Result panel 4904 Amorphous urine sediment 2025-04-15 17:47:07 [facility] 1+ (missing) (missing) Result panel 4905 Urine color determination 2025-04-15 17:47:07 [facility] Yellow (missing) (mis sing) Result panel 4906 Urine appearance 2025-04-15 17:47:07 [facility] Cloudy (missing) (missing) Result panel 4907 Urine pH measurement 2025-04-15 17:47:07 [facility] 7.0 (missing) (missing) Result panel 4908 Urine specific gravity measurement 2025-04-15 17:47:07 [facility] <=1.005 (missing) (missing) Result panel 4909 Urine protein measurement 2025-04-15 17:47:07 [facility] Negative (missing) (miss ing) Result panel 4910 Urine glucose measurement 2025-04-15 17:47:07 [facility] Negative g/dL (missing) (missing) Result panel 4911 Urine ketones measurement 2025-04-15 17:47:07 [facility] Negative (missing) (miss ing) Result panel 4912 Urine occult blood detection 2025-04-15 17:47:07 [facility] Trace-intact (missing) (missing) Result panel 4913 Urine nitrate measurement 2025-04-15 17:47:07 [facility] Negative (missing) (miss ing) Result panel 4914 Urine bilirubin measurement 2025-04-15 17:47:07 [facility] Negative (missing) (miss ing) Result panel 4915 Urine urobilinogen detection 2025-04-15 17:47:07 [facility] 1.0 E.U./dL (miss ing) Result panel 4916 Urine leukocyte esterase detection 2025-04-15 17:47:07 [facility] 3+ (missing) (miss ing) Result panel 4917 Microscopic analysis of urine for red blood cells (RBC) 2025-04-15 17:47:07 [facility] None seen (missing) (missing) Result panel 4918 Microscopic analysis of urine for white blood cells (WBC) 2025-04-15 17:47:07 [facility] 10-30/hpf (missing) (missing) Result panel 4919 Urine squamous epithelial cell detection 2025-04-15 17:47:07 [facility] None seen (missing) (miss ing) Result panel 4920 Amorphous urine sediment 2025-04-15 17:47:07 [facility] 1+ (missing) (missing) Result panel 4921 Urine color determination 2025-04-15 17:47:07 [facility] Yellow (missing) (mis sing) Result panel 4922 Urine appearance 2025-04-15 17:47:07 [facility] Cloudy (missing) (missing) Result panel 4923 Urine pH measurement 2025-04-15 17:47:07 [facility] 7.0 (missing) (missing) Result panel 4924 Urine specific gravity measurement 2025-04-15 17:47:07 [facility] <=1.005 (missing) (missing) Result panel 4925 Urine protein measurement 2025-04-15 17:47:07 [facility] Negative (missing) (miss ing) Result panel 4926 Urine glucose measurement 2025-04-15 17:47:07 [facility] Negative g/dL (missing) (missing) Result panel 4927 Urine ketones measurement 2025-04-15 17:47:07 [facility] Negative (missing) (miss ing) Result panel 4928 Urine occult blood detection 2025-04-15 17:47:07 [facility] Trace-intact (missing) (missing) Result panel 4929 Urine nitrate measurement 2025-04-15 17:47:07 [facility] Negative (missing) (miss ing) Result panel 4930 Urine bilirubin measurement 2025-04-15 17:47:07 [facility] Negative (missing) (miss ing) Result panel 4931 Urine urobilinogen detection 2025-04-15 17:47:07 [facility] 1.0 E.U./dL (miss ing) Result panel 4932 Urine leukocyte esterase detection 2025-04-15 17:47:07 [facility] 3+ (missing) (miss ing) Result panel 4933 Microscopic analysis of urine for red blood cells (RBC) 2025-04-15 17:47:07 [facility] None seen (missing) (missing) Result panel 4934 Microscopic analysis of urine for white blood cells (WBC) 2025-04-15 17:47:07 [facility] 10-30/hpf (missing) (missing) Result panel 4935 Urine squamous epithelial cell detection 2025-04-15 17:47:07 [facility] None seen (missing) (miss ing) Result panel 4936 Amorphous urine sediment 2025-04-15 17:47:07 [facility] 1+ (missing) (missing) Result panel 4937 Urine color determination 2025-04-15 17:47:07 [facility] Yellow (missing) (mis sing) Result panel 4938 Urine appearance 2025-04-15 17:47:07 [facility] Cloudy (missing) (missing) Result panel 4939 Urine pH measurement 2025-04-15 17:47:07 [facility] 7.0 (missing) (missing) Result panel 4940 Urine specific gravity measurement 2025-04-15 17:47:07 [facility] <=1.005 (missing) (missing) Result panel 4941 Urine protein measurement 2025-04-15 17:47:07 [facility] Negative (missing) (miss ing) Result panel 4942 Urine glucose measurement 2025-04-15 17:47:07 [facility] Negative g/dL (missing) (missing) Result panel 4943 Urine ketones measurement 2025-04-15 17:47:07 [facility] Negative (missing) (miss ing) Result panel 4944 Urine occult blood detection 2025-04-15 17:47:07 [facility] Trace-intact (missing) (missing) Result panel 4945 Urine nitrate measurement 2025-04-15 17:47:07 [facility] Negative (missing) (miss ing) Result panel 4946 Urine bilirubin measurement 2025-04-15 17:47:07 [facility] Negative (missing) (miss ing) Result panel 4947 Urine urobilinogen detection 2025-04-15 17:47:07 [facility] 1.0 E.U./dL (miss ing) Result panel 4948 Urine leukocyte esterase detection 2025-04-15 17:47:07 [facility] 3+ (missing) (miss ing) Result panel 4949 Microscopic analysis of urine for red blood cells (RBC) 2025-04-15 17:47:07 [facility] None seen (missing) (missing) Result panel 4950 Microscopic analysis of urine for white blood cells (WBC) 2025-04-15 17:47:07 [facility] 10-30/hpf (missing) (missing) Result panel 4951 Urine squamous epithelial cell detection 2025-04-15 17:47:07 [facility] None seen (missing) (miss ing) Result panel 4952 Amorphous urine sediment 2025-04-15 17:47:07 [facility] 1+ (missing) (missing) Result panel 4953 Urine color determination 2025-04-15 17:47:07 [facility] Yellow (missing) (mis sing) Result panel 4954 Urine appearance 2025-04-15 17:47:07 [facility] Cloudy (missing) (missing) Result panel 4955 Urine pH measurement 2025-04-15 17:47:07 [facility] 7.0 (missing) (missing) Result panel 4956 Urine specific gravity measurement 2025-04-15 17:47:07 [facility] <=1.005 (missing) (missing) Result panel 4957 Urine protein measurement 2025-04-15 17:47:07 [facility] Negative (missing) (miss ing) Result panel 4958 Urine glucose measurement 2025-04-15 17:47:07 [facility] Negative g/dL (missing) (missing) Result panel 4959 Urine ketones measurement 2025-04-15 17:47:07 [facility] Negative (missing) (miss ing) Result panel 4960 Urine occult blood detection 2025-04-15 17:47:07 [facility] Trace-intact (missing) (missing) Result panel 4961 Urine nitrate measurement 2025-04-15 17:47:07 [facility] Negative (missing) (miss ing) Result panel 4962 Urine bilirubin measurement 2025-04-15 17:47:07 [facility] Negative (missing) (miss ing) Result panel 4963 Urine urobilinogen detection 2025-04-15 17:47:07 [facility] 1.0 E.U./dL (miss ing) Result panel 4964 Urine leukocyte esterase detection 2025-04-15 17:47:07 [facility] 3+ (missing) (miss ing) Result panel 4965 Microscopic analysis of urine for red blood cells (RBC) 2025-04-15 17:47:07 [facility] None seen (missing) (missing) Result panel 4966 Microscopic analysis of urine for white blood cells (WBC) 2025-04-15 17:47:07 [facility] 10-30/hpf (missing) (missing) Result panel 4967 Urine squamous epithelial cell detection 2025-04-15 17:47:07 [facility] None seen (missing) (miss ing) Result panel 4968 Amorphous urine sediment 2025-04-15 17:47:07 [facility] 1+ (missing) (missing) Result panel 4969 Blood culture 2025-04-15 17:49:07 [facility] NO G ROWTH AFTER 5 DAYS (missing) (missing) Result panel 4970 Blood culture 2025-04-15 17:49:07 [facility] NO G ROWTH AFTER 5 DAYS (missing) (missing) Result panel 4971 Blood culture 2025-04-15 17:49:07 [facility] NO G ROWTH AFTER 5 DAYS (missing) (missing) Result panel 4972 Blood culture 2025-04-15 17:49:07 [facility] NO G ROWTH AFTER 5 DAYS (missing) (missing) Result panel 4973 Blood culture 2025-04-15 17:49:07 [facility] NO G ROWTH AFTER 5 DAYS (missing) (missing) Result panel 4974 Blood culture 2025-04-15 17:49:07 [facility] NO G ROWTH AFTER 5 DAYS (missing) (missing) Result panel 4975 Blood culture 2025-04-15 17:49:07 [facility] NO G ROWTH AFTER 5 DAYS (missing) (missing) Result panel 4976 Blood culture 2025-04-15 17:49:07 [facility] NO G ROWTH AFTER 5 DAYS (missing) (missing) Result panel 4977 Blood culture 2025-04-15 17:49:07 [facility] NO G ROWTH AFTER 5 DAYS (missing) (missing) Result panel 4978 Blood culture 2025-04-15 17:49:07 [facility] NO G ROWTH AFTER 5 DAYS (missing) (missing) Result panel 4979 Blood culture 2025-04-15 17:49:07 [facility] NO G ROWTH AFTER 5 DAYS (missing) (missing) Result panel 4980 Blood culture 2025-04-15 17:49:08 [facility] NO G ROWTH AFTER 5 DAYS (missing) (missing) Result panel 4981 Blood culture 2025-04-15 17:49:08 [facility] NO G ROWTH AFTER 5 DAYS (missing) (missing) Result panel 4982 Troponin I 2025-04-15 17:56 [facility] < 0.012 ng/ml Ortho Troponin-I Recommended Upper Reference Range & Cutoff The 99th Percentile URL: 0.034 ng/mL AMI Diagnostic Cutoff: 0.120 ng/mL Bilirubin Total 2025-04-15 17:56 [facility] 0.7 mg/dl (missing) Creatinine 2025-04-15 17:56 [facility] 1.14 mg/dl (missing) Albumin Globulin Ratio 2025-04-15 17:56 [facility] 1.3 (missing) (missing) Alkaline Phosphatase 2025-04-15 17:56 [facility] 112 u/l (missing) Sodium 2025-04-15 17:56 [facility] 134 mmol/l Physician Instructions if pt has history of CHF Glucose 2025-04-15 17:[address] [place] [address] 144 mg/dl (missing) Alanine Aminotransferase 2025-04-15 17:[address] [place] [address] 17 iu/l (missing) Creatine Kinase 2025-04-15 17:[address] [place] [address] 21 u/l Physician Instructions if pt has history of CHF Aspartate Aminotransferase 2025-04-15 :[address] [place] [address] 24 iu/l (missing) BUN Creatinine Ratio 2025-04-15 :[address] [place] [address] 27.2 (missing) (missing) Magnesium 2025-04-15 :[address] [place] [address] 3.1 mg/dl Physician Instructions if pt has history of CHF Globulin 2025-04-15 :[address] [place] [address] 3.2 g/dl (missing) Blood Urea Nitrogen 2025-04-15 :[address] [place] [address] 31 mg/dl (missing) Carbon Dioxide 2025-04-15 :[address] [place] [address] 31 mmol/l (missing) Albumin 2025-04-15 :[address] [place] [address] 4.1 g/dl (missing) Potassium 2025-04-15 :[address] [place] [address] 4.9 mmol/l (missing) Estimated Glomerular Filt Rate 2025-04-[address] [place] [address] 50 ml/min Reported eGFR is based the CKD-EPI 2020 equation that does not use a race coefficient. An eGFR below 60 mL/min/1.73m2 suggests that some kidney damage has occurred, and indicative of chronic kidney disease if persisting greater than 3 months. An eGFR less than 15 is indicative of kidney failure. NT-proBNP (BNP-Adult 18+) 2025-04-15 :[address] [place] [address] 61 pg/ml Physician Instructions if pt has history of CHF The following cut-points have been suggested for the use of proBNP for the diagnostic evaluation of heart failure (HF) in patients with acute dyspnea: Modality Age in Years Optimal Cut-Off -------- Heart Failure Unlikely: Exclusion Age Independent 300 pg/mL Heart Failure Likely: Diagnostic <50 450 pg/mL 50-75 900 pg/mL >75 1800 pg/mL The 300 pg/mL age-independent rule-out cutoff can be used to identify ED patients in whom HF (heart failuire) is unlikely and who need further investigations for non-cardiac causes of dyspnea. The natriuretic peptides values increase with age, therefore, applying age-dependent rule-in cutoffs (450, 900, and 1800 pg/mL) increases the specificity and positive predictive value for diagnosing patients in whom HF is likely. As mild natriuretic peptides elevations can be caused by non-HF conditions, VITROS NT-proBNP II test results between the exclusion and the diagnosis cutoffs should be considered in the context of the clinical presentation and physical examination in order to correctly identify or exclude HF. Total Protein 2025-04-15 17:56 [facility] 7.3 g/dl (missing) Lipase 2025-04-15 17:56 [facility] 83 u/l Physician Instructions if pt has history of CHF Calcium 2025-04-15 17:56 [facility] 9.3 mg/dl (missing) Chloride 2025-04-15 17:56 [facility] 95 mmol/l (missing) Result panel 4983 Procalcitonin 2025-04-15 17:59 [facility] 0.038 ng/ ml <0.5 ng/mL Systemic infection (sepsis) not likely >0.5- <2.0 ng/mL Systemic infection possible and should be correlated with patient's clinical condition. >2.0 - <10.0 ng/mL Systemic infection is likely. High risk for progression to sever sepsis/ or septic shock. >10.0 ng/mL Important systemic inflammoratory response, almost exclusively due to severe bacterial sepsis or septic shock. Lower Respiratory Tract Infection: <0.1 ng/mL Indicates absence of bacterial infection. >=0.1- <0.25 ng/mL Bacterial infection unlikely >=0.25- <0.5 ng/mL Bacterial infection possible >=0.5 ng/mL Suggests the presence of bacterial infection. Neonates <48 hours old have increased PCT levels without corresponding to sepsis. Result panel 4984 Blood culture 2025-04-15 18:01:07 [facility] NO G ROWTH AFTER 5 DAYS (missing) (missing) Result panel 4985 Blood culture 2025-04-15 18:01:07 [facility] NO G ROWTH AFTER 5 DAYS (missing) (missing) Result panel 4986 Blood culture 2025-04-15 18:01:07 [facility] NO G ROWTH AFTER 5 DAYS (missing) (missing) Result panel 4987 Blood culture 2025-04-15 18:01:07 [facility] NO G ROWTH AFTER 5 DAYS (missing) (missing) Result panel 4988 Blood culture 2025-04-15 18:01:07 [facility] NO G ROWTH AFTER 5 DAYS (missing) (missing) Result panel 4989 Blood culture 2025-04-15 18:01:07 [facility] NO G ROWTH AFTER 5 DAYS (missing) (missing) Result panel 4990 Blood culture 2025-04-15 18:01:07 [facility] NO G ROWTH AFTER 5 DAYS (missing) (missing) Result panel 4991 Blood culture 2025-04-15 18:01:07 [facility] NO G ROWTH AFTER 5 DAYS (missing) (missing) Result panel 4992 Blood culture 2025-04-15 18:01:07 [facility] NO G ROWTH AFTER 5 DAYS (missing) (missing) Result panel 4993 Blood culture 2025-04-15 18:01:07 [facility] NO G ROWTH AFTER 5 DAYS (missing) (missing) Result panel 4994 Blood culture 2025-04-15 18:01:07 [facility] NO G ROWTH AFTER 5 DAYS (missing) (missing) Result panel 4995 Blood culture 2025-04-15 18:01:08 [facility] NO G ROWTH AFTER 5 DAYS (missing) (missing) Result panel 4996 Blood culture 2025-04-15 18:01:08 [facility] NO G ROWTH AFTER 5 DAYS (missing) (missing) Result panel 4997 X-ray report 2025-04-15 18:06 [facility] (missing) (mis sing) (missing) Result panel 4998 Specific [place] Urine UA 2025-04-15 18:06 [facility] <=1.005 (missing) (missing) Urobilinogen Urine UA 2025-04-15 18:06 [facility] 1.0 e.u./dl (missing) Leukocyte Esterase Urine UA 2025-04-15 18:06 [facility] 3 (missing) (missing) pH Urine UA 2025-04-15 18:06 [facility] 7.0 (missing) (missing) Appearance Urine UA 2025-04-15 18:06 [facility] CLOUDY (missing) (missing) Bilirubin Urine UA 2025-04-15 18:06 [facility] NEGATIVE (missing) (missing) Ketones Urine UA 2025-04-15 18:06 [facility] NEGATIVE (missing) (missing) Nitrite Urine UA 2025-04-15 18:06 [facility] NEGATIVE (missing) (missing) Protein Urine UA 2025-04-15 18:06 [facility] NEGATIVE (missing) (missing) Glucose Urine UA 2025-04-15 18:06 [facility] NEGATIVE g/dl (missing) Occult Blood Urine UA 2025-04-15 18:06 [facility] TRACE-INTACT (missing) (missing) Color Urine UA 2025-04-15 18:06 [facility] YELLOW (missing) Urine Source: Urine, [place] Culture if Indicated? Y Result panel 4999 Specific [place] Urine UA 2025-04-15 18:[address] [place] [address] <=1.005 (missing) (missing) Amorphous Sediment Urine 2025-04-15 18:[address] [place] [address] 1 (missing) (missing) Urobilinogen Urine UA 2025-04-15 18:[address] [place] [address] 1.0 e.u./dl (missing) WBC Urine 2025-04-15 18:[address] [place] [address] 10-30/HPF (missing) (missing) Urine Volume 2025-04-15 18:[address] [place] [address] 10mL (spun) (missing) (missing) Leukocyte Esterase Urine UA 2025-04-15 18:[address] [place] [address] 3 (missing) (missing) pH Urine UA 2025-04-15 18:[address] [place] [address] 7.0 (missing) (missing) Appearance Urine UA 2025-04-15 18:[address] [place] [address] CLOUDY (missing) (missing) Bacteria Urine 2025-04-15 18:[address] [place] [address] Many (>30) (missing) (missing) Bilirubin Urine UA 2025-04-15 18:[address] [place] [address] NEGATIVE (missing) (missing) Ketones Urine UA 2025-04-15 18:[address] [place] [address] NEGATIVE (missing) (missing) Nitrite Urine UA 2025-04-15 18:[address] [place] [address] NEGATIVE (missing) (missing) Protein Urine UA 2025-04-15 18:[address] [place] [address] NEGATIVE (missing) (missing) Glucose Urine UA 2025-04-15 18:[address] [place] [address] NEGATIVE g/dl (missing) RBC Urine 2025-04-15 18:09 [facility] None Seen (missing) (missing) Squamous Epithelial Cell Urine 2025-04-15 18:[address] [place] [address] None Seen (missing) (missing) Culture Indicated Urine 2025-04-15 18:[address] [place] [address] Specimen Cultured (missing) (missing) Occult Blood Urine UA 2025-04-15 18:[address] [place] [address] TRACE-INTACT (missing) (missing) Color Urine UA 2025-04-15 18:09 [facility] YELLOW (missing) Urine Source: Urine, [place] Culture if Indicated? Y Result panel 5000 Adenovirus DNA [Presence] in Nasopharynx by TAMMI with non-probe detection 2025-04-15 18:27:08 [facility] Not detected (missing) (missing) Result panel 5001 SARS-CoV-2 (COVID-19) RNA [Presence] in Nasopharynx by TAMMI with non-probe detection 2025-04-15 18:27:08 [facility] Not detected (missing) (missing) Result panel 5002 Human coronavirus 229E RNA [Presence] in Nasopharynx by TAMMI with non-probe detection 2025-04-15 18:27:08 [facility] Not detected (missing) (missing) Result panel 5003 Human coronavirus HKU1 RNA [Presence] in Nasopharynx by TAMMI with non-probe detection 2025-04-15 18:27:08 [facility] Not detected (missing) (missing) Result panel 5004 Human coronavirus NL63 RNA [Presence] in Nasopharynx by TAMMI with non-probe detection 2025-04-15 18:27:08 [facility] Not detected (missing) (missing) Result panel 5005 Human coronavirus OC43 RNA [Presence] in Nasopharynx by TAMMI with non-probe detection 2025-04-15 18:27:08 [facility] Not detected (missing) (missing) Result panel 5006 Human metapneumovirus RNA [Presence] in Nasopharynx by TAMMI with non-probe detection 2025-04-15 18:27:08 [facility] Not detected (missing) (missing) Result panel 5007 Rhinovirus+Enterovirus RNA [Presence] in Nasopharynx by TAMMI with non-probe detection 2025-04-15 18:27:08 [facility] Not detected (missing) (missing) Result panel 5008 Influenza virus A RNA [Presence] in Nasopharynx by TAMMI with non-probe detection 2025-04-15 18:27:08 [facility] Not detected (missing) (missing) Result panel 5009 Influenza virus B RNA [Presence] in Nasopharynx by TAMMI with non-probe detection 2025-04-15 18:27:08 [facility] Not detected (missing) (missing) Result panel 5010 Parainfluenza virus 1 RNA [Presence] in Nasopharynx by TAMMI with non-probe detection 2025-04-15 18:27:08 [facility] Not detected (missing) (missing) Result panel 5011 Parainfluenza virus 2 RNA [Presence] in Nasopharynx by TAMMI with non-probe detection 2025-04-15 18:27:08 [facility] Not detected (missing) (missing) Result panel 5012 Parainfluenza virus 3 RNA [Presence] in Nasopharynx by TAMMI with non-probe detection 2025-04-15 18:27:08 [facility] Not detected (missing) (missing) Result panel 5013 Parainfluenza virus 4 RNA [Presence] in Nasopharynx by TAMMI with non-probe detection 2025-04-15 18:27:08 [facility] Not detected (missing) (missing) Result panel 5014 Respiratory syncytial virus RNA [Presence] in Nasopharynx by TAMMI with non-probe detec 2025-04-15 18:27:08 [facility] Not detected (missing) (missing) Result panel 5015 Bordetella pertussis.pertussis toxin promoter region [Presence] in Nasopharynx by TAMMI 2025-04-15 18:27:08 [facility] Not detected (missing) (missing) Result panel 5016 Chlamydophila pneumoniae DNA [Presence] in Nasopharynx by TAMMI with non-probe detectio 2025-04-15 18:27:08 [facility] Not detected (missing) (missing) Result panel 5017 Mycoplasma pneumoniae DNA [Presence] in Nasopharynx by TAMMI with non-probe detection 2025-04-15 18:27:08 [facility] Not detected (missing) (missing) Result panel 5018 Adenovirus DNA [Presence] in Nasopharynx by TAMMI with non-probe detection 2025-04-15 18:27:08 [facility] Not detected (missing) (missing) Result panel 5019 SARS-CoV-2 (COVID-19) RNA [Presence] in Nasopharynx by TAMMI with non-probe detection 2025-04-15 18:27:08 [facility] Not detected (missing) (missing) Result panel 5020 Human coronavirus 229E RNA [Presence] in Nasopharynx by TAMMI with non-probe detection 2025-04-15 18:27:08 [facility] Not detected (missing) (missing) Result panel 5021 Human coronavirus HKU1 RNA [Presence] in Nasopharynx by TAMMI with non-probe detection 2025-04-15 18:27:08 [facility] Not detected (missing) (missing) Result panel 5022 Human coronavirus NL63 RNA [Presence] in Nasopharynx by TAMMI with non-probe detection 2025-04-15 18:27:08 [facility] Not detected (missing) (missing) Result panel 5023 Human coronavirus OC43 RNA [Presence] in Nasopharynx by TAMMI with non-probe detection 2025-04-15 18:27:08 [facility] Not detected (missing) (missing) Result panel 5024 Human metapneumovirus RNA [Presence] in Nasopharynx by TAMMI with non-probe detection 2025-04-15 18:27:08 [facility] Not detected (missing) (missing) Result panel 5025 Rhinovirus+Enterovirus RNA [Presence] in Nasopharynx by TAMMI with non-probe detection 2025-04-15 18:27:08 [facility] Not detected (missing) (missing) Result panel 5026 Influenza virus A RNA [Presence] in Nasopharynx by TAMMI with non-probe detection 2025-04-15 18:27:08 [facility] Not detected (missing) (missing) Result panel 5027 Influenza virus B RNA [Presence] in Nasopharynx by TAMMI with non-probe detection 2025-04-15 18:27:08 [facility] Not detected (missing) (missing) Result panel 5028 Parainfluenza virus 1 RNA [Presence] in Nasopharynx by TAMMI with non-probe detection 2025-04-15 18:27:08 [facility] Not detected (missing) (missing) Result panel 5029 Parainfluenza virus 2 RNA [Presence] in Nasopharynx by TAMMI with non-probe detection 2025-04-15 18:27:08 [facility] Not detected (missing) (missing) Result panel 5030 Parainfluenza virus 3 RNA [Presence] in Nasopharynx by TAMMI with non-probe detection 2025-04-15 18:27:08 [facility] Not detected (missing) (missing) Result panel 5031 Parainfluenza virus 4 RNA [Presence] in Nasopharynx by TAMMI with non-probe detection 2025-04-15 18:27:08 [facility] Not detected (missing) (missing) Result panel 5032 Respiratory syncytial virus RNA [Presence] in Nasopharynx by TAMMI with non-probe detec 2025-04-15 18:27:08 [facility] Not detected (missing) (missing) Result panel 5033 Bordetella pertussis.pertussis toxin promoter region [Presence] in Nasopharynx by TAMMI 2025-04-15 18:27:08 [facility] Not detected (missing) (missing) Result panel 5034 Chlamydophila pneumoniae DNA [Presence] in Nasopharynx by TAMMI with non-probe detectio 2025-04-15 18:27:08 [facility] Not detected (missing) (missing) Result panel 5035 Mycoplasma pneumoniae DNA [Presence] in Nasopharynx by TAMMI with non-probe detection 2025-04-15 18:27:08 [facility] Not detected (missing) (missing) Result panel 5036 D Dimer 2025-04-15 19:26 [facility] 426 ng/ml *New methodology for D-Dimer resulting units* D-Dimer results are now reported in ng/ml of Fibrinogen Equivalent Units (FEU). The new reference range for D-Dimer HS 500 is <500 ng/ml FEU Previous D-Dimer results were reported in ng/ml of D-Dimer units (D-DU). The equivalence between these two measurements is approximately 2 ng/ml FEU to ~1ng/ml D-DU. Result panel 5037 Adenovirus DNA [Presence] in Nasopharynx by TAMMI with non-probe detection 2025-04-15 19:27:07 [facility] Not detected (missing) (missing) Result panel 5038 SARS-CoV-2 (COVID-19) RNA [Presence] in Nasopharynx by TAMMI with non-probe detection 2025-04-15 19:27:07 [facility] Not detected (missing) (missing) Result panel 5039 Human coronavirus 229E RNA [Presence] in Nasopharynx by TAMMI with non-probe detection 2025-04-15 19:27:07 [facility] Not detected (missing) (missing) Result panel 5040 Human coronavirus HKU1 RNA [Presence] in Nasopharynx by TAMMI with non-probe detection 2025-04-15 19:27:07 [facility] Not detected (missing) (missing) Result panel 5041 Human coronavirus NL63 RNA [Presence] in Nasopharynx by TAMMI with non-probe detection 2025-04-15 19:27:07 [facility] Not detected (missing) (missing) Result panel 5042 Human coronavirus OC43 RNA [Presence] in Nasopharynx by TAMMI with non-probe detection 2025-04-15 19:27:07 [facility] Not detected (missing) (missing) Result panel 5043 Human metapneumovirus RNA [Presence] in Nasopharynx by TAMMI with non-probe detection 2025-04-15 19:27:07 [facility] Not detected (missing) (missing) Result panel 5044 Rhinovirus+Enterovirus RNA [Presence] in Nasopharynx by TAMMI with non-probe detection 2025-04-15 19:27:07 [facility] Not detected (missing) (missing) Result panel 5045 Influenza virus A RNA [Presence] in Nasopharynx by TAMMI with non-probe detection 2025-04-15 19:27:07 [facility] Not detected (missing) (missing) Result panel 5046 Influenza virus B RNA [Presence] in Nasopharynx by TAMMI with non-probe detection 2025-04-15 19:27:07 [facility] Not detected (missing) (missing) Result panel 5047 Parainfluenza virus 1 RNA [Presence] in Nasopharynx by TAMMI with non-probe detection 2025-04-15 19:27:07 [facility] Not detected (missing) (missing) Result panel 5048 Parainfluenza virus 2 RNA [Presence] in Nasopharynx by TAMMI with non-probe detection 2025-04-15 19:27:07 [facility] Not detected (missing) (missing) Result panel 5049 Parainfluenza virus 3 RNA [Presence] in Nasopharynx by TAMMI with non-probe detection 2025-04-15 19:27:07 [facility] Not detected (missing) (missing) Result panel 5050 Parainfluenza virus 4 RNA [Presence] in Nasopharynx by TAMMI with non-probe detection 2025-04-15 19:27:07 [facility] Not detected (missing) (missing) Result panel 5051 Respiratory syncytial virus RNA [Presence] in Nasopharynx by TAMMI with non-probe detec 2025-04-15 19:27:07 [facility] Not detected (missing) (missing) Result panel 5052 Bordetella pertussis.pertussis toxin promoter region [Presence] in Nasopharynx by TAMMI 2025-04-15 19:27:07 [facility] Not detected (missing) (missing) Result panel 5053 Chlamydophila pneumoniae DNA [Presence] in Nasopharynx by TAMMI with non-probe detectio 2025-04-15 19:27:07 [facility] Not detected (missing) (missing) Result panel 5054 Mycoplasma pneumoniae DNA [Presence] in Nasopharynx by TAMMI with non-probe detection 2025-04-15 19:27:07 [facility] Not detected (missing) (missing) Result panel 5055 Adenovirus DNA [Presence] in Nasopharynx by TAMMI with non-probe detection 2025-04-15 19:27:07 [facility] Not detected (missing) (missing) Result panel 5056 SARS-CoV-2 (COVID-19) RNA [Presence] in Nasopharynx by TAMMI with non-probe detection 2025-04-15 19:27:07 [facility] Not detected (missing) (missing) Result panel 5057 Human coronavirus 229E RNA [Presence] in Nasopharynx by TAMMI with non-probe detection 2025-04-15 19:27:07 [facility] Not detected (missing) (missing) Result panel 5058 Human coronavirus HKU1 RNA [Presence] in Nasopharynx by TAMMI with non-probe detection 2025-04-15 19:27:07 [facility] Not detected (missing) (missing) Result panel 5059 Human coronavirus NL63 RNA [Presence] in Nasopharynx by TAMMI with non-probe detection 2025-04-15 19:27:07 [facility] Not detected (missing) (missing) Result panel 5060 Human coronavirus OC43 RNA [Presence] in Nasopharynx by TAMMI with non-probe detection 2025-04-15 19:27:07 [facility] Not detected (missing) (missing) Result panel 5061 Human metapneumovirus RNA [Presence] in Nasopharynx by TAMMI with non-probe detection 2025-04-15 19:27:07 [facility] Not detected (missing) (missing) Result panel 5062 Rhinovirus+Enterovirus RNA [Presence] in Nasopharynx by TAMMI with non-probe detection 2025-04-15 19:27:07 [facility] Not detected (missing) (missing) Result panel 5063 Influenza virus A RNA [Presence] in Nasopharynx by TAMMI with non-probe detection 2025-04-15 19:27:07 [facility] Not detected (missing) (missing) Result panel 5064 Influenza virus B RNA [Presence] in Nasopharynx by TAMMI with non-probe detection 2025-04-15 19:27:07 [facility] Not detected (missing) (missing) Result panel 5065 Parainfluenza virus 1 RNA [Presence] in Nasopharynx by TAMMI with non-probe detection 2025-04-15 19:27:07 [facility] Not detected (missing) (missing) Result panel 5066 Parainfluenza virus 2 RNA [Presence] in Nasopharynx by TAMMI with non-probe detection 2025-04-15 19:27:07 [facility] Not detected (missing) (missing) Result panel 5067 Parainfluenza virus 3 RNA [Presence] in Nasopharynx by TAMMI with non-probe detection 2025-04-15 19:27:07 [facility] Not detected (missing) (missing) Result panel 5068 Parainfluenza virus 4 RNA [Presence] in Nasopharynx by TAMMI with non-probe detection 2025-04-15 19:27:07 [facility] Not detected (missing) (missing) Result panel 5069 Respiratory syncytial virus RNA [Presence] in Nasopharynx by TAMMI with non-probe detec 2025-04-15 19:27:07 [facility] Not detected (missing) (missing) Result panel 5070 Bordetella pertussis.pertussis toxin promoter region [Presence] in Nasopharynx by TAMMI 2025-04-15 19:27:07 [facility] Not detected (missing) (missing) Result panel 5071 Chlamydophila pneumoniae DNA [Presence] in Nasopharynx by TAMMI with non-probe detectio 2025-04-15 19:27:07 [facility] Not detected (missing) (missing) Result panel 5072 Mycoplasma pneumoniae DNA [Presence] in Nasopharynx by TAMMI with non-probe detection 2025-04-15 19:27:07 [facility] Not detected (missing) (missing) Result panel 5073 Adenovirus DNA [Presence] in Nasopharynx by TAMMI with non-probe detection 2025-04-15 19:27:07 [facility] Not detected (missing) (missing) Result panel 5074 SARS-CoV-2 (COVID-19) RNA [Presence] in Nasopharynx by TAMMI with non-probe detection 2025-04-15 19:27:07 [facility] Not detected (missing) (missing) Result panel 5075 Human coronavirus 229E RNA [Presence] in Nasopharynx by TAMMI with non-probe detection 2025-04-15 19:27:07 [facility] Not detected (missing) (missing) Result panel 5076 Human coronavirus HKU1 RNA [Presence] in Nasopharynx by TAMMI with non-probe detection 2025-04-15 19:27:07 [facility] Not detected (missing) (missing) Result panel 5077 Human coronavirus NL63 RNA [Presence] in Nasopharynx by TAMMI with non-probe detection 2025-04-15 19:27:07 [facility] Not detected (missing) (missing) Result panel 5078 Human coronavirus OC43 RNA [Presence] in Nasopharynx by TAMMI with non-probe detection 2025-04-15 19:27:07 [facility] Not detected (missing) (missing) Result panel 5079 Human metapneumovirus RNA [Presence] in Nasopharynx by TAMMI with non-probe detection 2025-04-15 19:27:07 [facility] Not detected (missing) (missing) Result panel 5080 Rhinovirus+Enterovirus RNA [Presence] in Nasopharynx by TAMMI with non-probe detection 2025-04-15 19:27:07 [facility] Not detected (missing) (missing) Result panel 5081 Influenza virus A RNA [Presence] in Nasopharynx by TAMMI with non-probe detection 2025-04-15 19:27:07 [facility] Not detected (missing) (missing) Result panel 5082 Influenza virus B RNA [Presence] in Nasopharynx by TAMMI with non-probe detection 2025-04-15 19:27:07 [facility] Not detected (missing) (missing) Result panel 5083 Parainfluenza virus 1 RNA [Presence] in Nasopharynx by TAMMI with non-probe detection 2025-04-15 19:27:07 [facility] Not detected (missing) (missing) Result panel 5084 Parainfluenza virus 2 RNA [Presence] in Nasopharynx by TAMMI with non-probe detection 2025-04-15 19:27:07 [facility] Not detected (missing) (missing) Result panel 5085 Parainfluenza virus 3 RNA [Presence] in Nasopharynx by TAMMI with non-probe detection 2025-04-15 19:27:07 [facility] Not detected (missing) (missing) Result panel 5086 Parainfluenza virus 4 RNA [Presence] in Nasopharynx by TAMMI with non-probe detection 2025-04-15 19:27:07 [facility] Not detected (missing) (missing) Result panel 5087 Respiratory syncytial virus RNA [Presence] in Nasopharynx by TAMMI with non-probe detec 2025-04-15 19:27:07 [facility] Not detected (missing) (missing) Result panel 5088 Bordetella pertussis.pertussis toxin promoter region [Presence] in Nasopharynx by TAMMI 2025-04-15 19:27:07 [facility] Not detected (missing) (missing) Result panel 5089 Chlamydophila pneumoniae DNA [Presence] in Nasopharynx by TAMMI with non-probe detectio 2025-04-15 19:27:07 [facility] Not detected (missing) (missing) Result panel 5090 Mycoplasma pneumoniae DNA [Presence] in Nasopharynx by TAMMI with non-probe detection 2025-04-15 19:27:07 [facility] Not detected (missing) (missing) Result panel 5091 Adenovirus DNA [Presence] in Nasopharynx by TAMMI with non-probe detection 2025-04-15 19:27:07 [facility] Not detected (missing) (missing) Result panel 5092 SARS-CoV-2 (COVID-19) RNA [Presence] in Nasopharynx by TAMMI with non-probe detection 2025-04-15 19:27:07 [facility] Not detected (missing) (missing) Result panel 5093 Human coronavirus 229E RNA [Presence] in Nasopharynx by TAMMI with non-probe detection 2025-04-15 19:27:07 [facility] Not detected (missing) (missing) Result panel 5094 Human coronavirus HKU1 RNA [Presence] in Nasopharynx by TAMMI with non-probe detection 2025-04-15 19:27:07 [facility] Not detected (missing) (missing) Result panel 5095 Human coronavirus NL63 RNA [Presence] in Nasopharynx by TAMMI with non-probe detection 2025-04-15 19:27:07 [facility] Not detected (missing) (missing) Result panel 5096 Human coronavirus OC43 RNA [Presence] in Nasopharynx by TAMMI with non-probe detection 2025-04-15 19:27:07 [facility] Not detected (missing) (missing) Result panel 5097 Human metapneumovirus RNA [Presence] in Nasopharynx by TAMMI with non-probe detection 2025-04-15 19:27:07 [facility] Not detected (missing) (missing) Result panel 5098 Rhinovirus+Enterovirus RNA [Presence] in Nasopharynx by TAMMI with non-probe detection 2025-04-15 19:27:07 [facility] Not detected (missing) (missing) Result panel 5099 Influenza virus A RNA [Presence] in Nasopharynx by TAMMI with non-probe detection 2025-04-15 19:27:07 [facility] Not detected (missing) (missing) Result panel 5100 Influenza virus B RNA [Presence] in Nasopharynx by TAMMI with non-probe detection 2025-04-15 19:27:07 [facility] Not detected (missing) (missing) Result panel 5101 Parainfluenza virus 1 RNA [Presence] in Nasopharynx by TAMMI with non-probe detection 2025-04-15 19:27:07 [facility] Not detected (missing) (missing) Result panel 5102 Parainfluenza virus 2 RNA [Presence] in Nasopharynx by TAMMI with non-probe detection 2025-04-15 19:27:07 [facility] Not detected (missing) (missing) Result panel 5103 Parainfluenza virus 3 RNA [Presence] in Nasopharynx by TAMMI with non-probe detection 2025-04-15 19:27:07 [facility] Not detected (missing) (missing) Result panel 5104 Parainfluenza virus 4 RNA [Presence] in Nasopharynx by TAMMI with non-probe detection 2025-04-15 19:27:07 [facility] Not detected (missing) (missing) Result panel 5105 Respiratory syncytial virus RNA [Presence] in Nasopharynx by TAMMI with non-probe detec 2025-04-15 19:27:07 [facility] Not detected (missing) (missing) Result panel 5106 Bordetella pertussis.pertussis toxin promoter region [Presence] in Nasopharynx by TAMMI 2025-04-15 19:27:07 [facility] Not detected (missing) (missing) Result panel 5107 Chlamydophila pneumoniae DNA [Presence] in Nasopharynx by TAMMI with non-probe detectio 2025-04-15 19:27:07 [facility] Not detected (missing) (missing) Result panel 5108 Mycoplasma pneumoniae DNA [Presence] in Nasopharynx by TAMMI with non-probe detection 2025-04-15 19:27:07 [facility] Not detected (missing) (missing) Result panel 5109 Adenovirus DNA [Presence] in Nasopharynx by TAMMI with non-probe detection 2025-04-15 19:27:07 [facility] Not detected (missing) (missing) Result panel 5110 SARS-CoV-2 (COVID-19) RNA [Presence] in Nasopharynx by TAMMI with non-probe detection 2025-04-15 19:27:07 [facility] Not detected (missing) (missing) Result panel 5111 Human coronavirus 229E RNA [Presence] in Nasopharynx by TAMMI with non-probe detection 2025-04-15 19:27:07 [facility] Not detected (missing) (missing) Result panel 5112 Human coronavirus HKU1 RNA [Presence] in Nasopharynx by TAMMI with non-probe detection 2025-04-15 19:27:07 [facility] Not detected (missing) (missing) Result panel 5113 Human coronavirus NL63 RNA [Presence] in Nasopharynx by TAMMI with non-probe detection 2025-04-15 19:27:07 [facility] Not detected (missing) (missing) Result panel 5114 Human coronavirus OC43 RNA [Presence] in Nasopharynx by TAMMI with non-probe detection 2025-04-15 19:27:07 [facility] Not detected (missing) (missing) Result panel 5115 Human metapneumovirus RNA [Presence] in Nasopharynx by TAMMI with non-probe detection 2025-04-15 19:27:07 [facility] Not detected (missing) (missing) Result panel 5116 Rhinovirus+Enterovirus RNA [Presence] in Nasopharynx by TAMMI with non-probe detection 2025-04-15 19:27:07 [facility] Not detected (missing) (missing) Result panel 5117 Influenza virus A RNA [Presence] in Nasopharynx by TAMMI with non-probe detection 2025-04-15 19:27:07 [facility] Not detected (missing) (missing) Result panel 5118 Influenza virus B RNA [Presence] in Nasopharynx by TAMMI with non-probe detection 2025-04-15 19:27:07 [facility] Not detected (missing) (missing) Result panel 5119 Parainfluenza virus 1 RNA [Presence] in Nasopharynx by TAMMI with non-probe detection 2025-04-15 19:27:07 [facility] Not detected (missing) (missing) Result panel 5120 Parainfluenza virus 2 RNA [Presence] in Nasopharynx by TAMMI with non-probe detection 2025-04-15 19:27:07 [facility] Not detected (missing) (missing) Result panel 5121 Parainfluenza virus 3 RNA [Presence] in Nasopharynx by TAMMI with non-probe detection 2025-04-15 19:27:07 [facility] Not detected (missing) (missing) Result panel 5122 Parainfluenza virus 4 RNA [Presence] in Nasopharynx by TAMMI with non-probe detection 2025-04-15 19:27:07 [facility] Not detected (missing) (missing) Result panel 5123 Respiratory syncytial virus RNA [Presence] in Nasopharynx by TAMMI with non-probe detec 2025-04-15 19:27:07 [facility] Not detected (missing) (missing) Result panel 5124 Bordetella pertussis.pertussis toxin promoter region [Presence] in Nasopharynx by TAMMI 2025-04-15 19:27:07 [facility] Not detected (missing) (missing) Result panel 5125 Chlamydophila pneumoniae DNA [Presence] in Nasopharynx by TAMMI with non-probe detectio 2025-04-15 19:27:07 [facility] Not detected (missing) (missing) Result panel 5126 Mycoplasma pneumoniae DNA [Presence] in Nasopharynx by TAMMI with non-probe detection 2025-04-15 19:27:07 [facility] Not detected (missing) (missing) Result panel 5127 Adenovirus DNA [Presence] in Nasopharynx by TAMMI with non-probe detection 2025-04-15 19:27:07 [facility] Not detected (missing) (missing) Result panel 5128 SARS-CoV-2 (COVID-19) RNA [Presence] in Nasopharynx by TAMMI with non-probe detection 2025-04-15 19:27:07 [facility] Not detected (missing) (missing) Result panel 5129 Human coronavirus 229E RNA [Presence] in Nasopharynx by TAMMI with non-probe detection 2025-04-15 19:27:07 [facility] Not detected (missing) (missing) Result panel 5130 Human coronavirus HKU1 RNA [Presence] in Nasopharynx by TAMMI with non-probe detection 2025-04-15 19:27:07 [facility] Not detected (missing) (missing) Result panel 5131 Human coronavirus NL63 RNA [Presence] in Nasopharynx by TAMMI with non-probe detection 2025-04-15 19:27:07 [facility] Not detected (missing) (missing) Result panel 5132 Human coronavirus OC43 RNA [Presence] in Nasopharynx by TAMMI with non-probe detection 2025-04-15 19:27:07 [facility] Not detected (missing) (missing) Result panel 5133 Human metapneumovirus RNA [Presence] in Nasopharynx by TAMMI with non-probe detection 2025-04-15 19:27:07 [facility] Not detected (missing) (missing) Result panel 5134 Rhinovirus+Enterovirus RNA [Presence] in Nasopharynx by TAMMI with non-probe detection 2025-04-15 19:27:07 [facility] Not detected (missing) (missing) Result panel 5135 Influenza virus A RNA [Presence] in Nasopharynx by TAMMI with non-probe detection 2025-04-15 19:27:07 [facility] Not detected (missing) (missing) Result panel 5136 Influenza virus B RNA [Presence] in Nasopharynx by TAMMI with non-probe detection 2025-04-15 19:27:07 [facility] Not detected (missing) (missing) Result panel 5137 Parainfluenza virus 1 RNA [Presence] in Nasopharynx by TAMMI with non-probe detection 2025-04-15 19:27:07 [facility] Not detected (missing) (missing) Result panel 5138 Parainfluenza virus 2 RNA [Presence] in Nasopharynx by TAMMI with non-probe detection 2025-04-15 19:27:07 [facility] Not detected (missing) (missing) Result panel 5139 Parainfluenza virus 3 RNA [Presence] in Nasopharynx by TAMMI with non-probe detection 2025-04-15 19:27:07 [facility] Not detected (missing) (missing) Result panel 5140 Parainfluenza virus 4 RNA [Presence] in Nasopharynx by TAMMI with non-probe detection 2025-04-15 19:27:07 [facility] Not detected (missing) (missing) Result panel 5141 Respiratory syncytial virus RNA [Presence] in Nasopharynx by TAMMI with non-probe detec 2025-04-15 19:27:07 [facility] Not detected (missing) (missing) Result panel 5142 Bordetella pertussis.pertussis toxin promoter region [Presence] in Nasopharynx by TAMMI 2025-04-15 19:27:07 [facility] Not detected (missing) (missing) Result panel 5143 Chlamydophila pneumoniae DNA [Presence] in Nasopharynx by TAMMI with non-probe detectio 2025-04-15 19:27:07 [facility] Not detected (missing) (missing) Result panel 5144 Mycoplasma pneumoniae DNA [Presence] in Nasopharynx by TAMMI with non-probe detection 2025-04-15 19:27:07 [facility] Not detected (missing) (missing) Result panel 5145 Adenovirus DNA [Presence] in Nasopharynx by TAMMI with non-probe detection 2025-04-15 19:27:07 [facility] Not detected (missing) (missing) Result panel 5146 SARS-CoV-2 (COVID-19) RNA [Presence] in Nasopharynx by TAMMI with non-probe detection 2025-04-15 19:27:07 [facility] Not detected (missing) (missing) Result panel 5147 Human coronavirus 229E RNA [Presence] in Nasopharynx by TAMMI with non-probe detection 2025-04-15 19:27:07 [facility] Not detected (missing) (missing) Result panel 5148 Human coronavirus HKU1 RNA [Presence] in Nasopharynx by TAMMI with non-probe detection 2025-04-15 19:27:07 [facility] Not detected (missing) (missing) Result panel 5149 Human coronavirus NL63 RNA [Presence] in Nasopharynx by TAMMI with non-probe detection 2025-04-15 19:27:07 [facility] Not detected (missing) (missing) Result panel 5150 Human coronavirus OC43 RNA [Presence] in Nasopharynx by TAMMI with non-probe detection 2025-04-15 19:27:07 [facility] Not detected (missing) (missing) Result panel 5151 Human metapneumovirus RNA [Presence] in Nasopharynx by TAMMI with non-probe detection 2025-04-15 19:27:07 [facility] Not detected (missing) (missing) Result panel 5152 Rhinovirus+Enterovirus RNA [Presence] in Nasopharynx by TAMMI with non-probe detection 2025-04-15 19:27:07 [facility] Not detected (missing) (missing) Result panel 5153 Influenza virus A RNA [Presence] in Nasopharynx by TAMMI with non-probe detection 2025-04-15 19:27:07 [facility] Not detected (missing) (missing) Result panel 5154 Influenza virus B RNA [Presence] in Nasopharynx by TAMMI with non-probe detection 2025-04-15 19:27:07 [facility] Not detected (missing) (missing) Result panel 5155 Parainfluenza virus 1 RNA [Presence] in Nasopharynx by TAMMI with non-probe detection 2025-04-15 19:27:07 [facility] Not detected (missing) (missing) Result panel 5156 Parainfluenza virus 2 RNA [Presence] in Nasopharynx by TAMMI with non-probe detection 2025-04-15 19:27:07 [facility] Not detected (missing) (missing) Result panel 5157 Parainfluenza virus 3 RNA [Presence] in Nasopharynx by TAMMI with non-probe detection 2025-04-15 19:27:07 [facility] Not detected (missing) (missing) Result panel 5158 Parainfluenza virus 4 RNA [Presence] in Nasopharynx by TAMMI with non-probe detection 2025-04-15 19:27:07 [facility] Not detected (missing) (missing) Result panel 5159 Respiratory syncytial virus RNA [Presence] in Nasopharynx by TAMMI with non-probe detec 2025-04-15 19:27:07 [facility] Not detected (missing) (missing) Result panel 5160 Bordetella pertussis.pertussis toxin promoter region [Presence] in Nasopharynx by TAMMI 2025-04-15 19:27:07 [facility] Not detected (missing) (missing) Result panel 5161 Chlamydophila pneumoniae DNA [Presence] in Nasopharynx by TAMMI with non-probe detectio 2025-04-15 19:27:07 [facility] Not detected (missing) (missing) Result panel 5162 Mycoplasma pneumoniae DNA [Presence] in Nasopharynx by TAMMI with non-probe detection 2025-04-15 19:27:07 [facility] Not detected (missing) (missing) Result panel 5163 Adenovirus DNA [Presence] in Nasopharynx by TAMMI with non-probe detection 2025-04-15 19:27:07 [facility] Not detected (missing) (missing) Result panel 5164 SARS-CoV-2 (COVID-19) RNA [Presence] in Nasopharynx by TAMMI with non-probe detection 2025-04-15 19:27:07 [facility] Not detected (missing) (missing) Result panel 5165 Human coronavirus 229E RNA [Presence] in Nasopharynx by TAMMI with non-probe detection 2025-04-15 19:27:07 [facility] Not detected (missing) (missing) Result panel 5166 Human coronavirus HKU1 RNA [Presence] in Nasopharynx by TAMMI with non-probe detection 2025-04-15 19:27:07 [facility] Not detected (missing) (missing) Result panel 5167 Human coronavirus NL63 RNA [Presence] in Nasopharynx by TAMMI with non-probe detection 2025-04-15 19:27:07 [facility] Not detected (missing) (missing) Result panel 5168 Human coronavirus OC43 RNA [Presence] in Nasopharynx by TAMMI with non-probe detection 2025-04-15 19:27:07 [facility] Not detected (missing) (missing) Result panel 5169 Human metapneumovirus RNA [Presence] in Nasopharynx by TAMMI with non-probe detection 2025-04-15 19:27:07 [facility] Not detected (missing) (missing) Result panel 5170 Rhinovirus+Enterovirus RNA [Presence] in Nasopharynx by TAMMI with non-probe detection 2025-04-15 19:27:07 [facility] Not detected (missing) (missing) Result panel 5171 Influenza virus A RNA [Presence] in Nasopharynx by TAMMI with non-probe detection 2025-04-15 19:27:07 [facility] Not detected (missing) (missing) Result panel 5172 Influenza virus B RNA [Presence] in Nasopharynx by TAMMI with non-probe detection 2025-04-15 19:27:07 [facility] Not detected (missing) (missing) Result panel 5173 Parainfluenza virus 1 RNA [Presence] in Nasopharynx by TAMMI with non-probe detection 2025-04-15 19:27:07 [facility] Not detected (missing) (missing) Result panel 5174 Parainfluenza virus 2 RNA [Presence] in Nasopharynx by TAMMI with non-probe detection 2025-04-15 19:27:07 [facility] Not detected (missing) (missing) Result panel 5175 Parainfluenza virus 3 RNA [Presence] in Nasopharynx by TAMMI with non-probe detection 2025-04-15 19:27:07 [facility] Not detected (missing) (missing) Result panel 5176 Parainfluenza virus 4 RNA [Presence] in Nasopharynx by TAMMI with non-probe detection 2025-04-15 19:27:07 [facility] Not detected (missing) (missing) Result panel 5177 Respiratory syncytial virus RNA [Presence] in Nasopharynx by TAMMI with non-probe detec 2025-04-15 19:27:07 [facility] Not detected (missing) (missing) Result panel 5178 Bordetella pertussis.pertussis toxin promoter region [Presence] in Nasopharynx by TAMMI 2025-04-15 19:27:07 [facility] Not detected (missing) (missing) Result panel 5179 Chlamydophila pneumoniae DNA [Presence] in Nasopharynx by TAMMI with non-probe detectio 2025-04-15 19:27:07 [facility] Not detected (missing) (missing) Result panel 5180 Mycoplasma pneumoniae DNA [Presence] in Nasopharynx by TAMMI with non-probe detection 2025-04-15 19:27:07 [facility] Not detected (missing) (missing) Result panel 5181 Adenovirus DNA [Presence] in Nasopharynx by TAMMI with non-probe detection 2025-04-15 19:27:07 [facility] Not detected (missing) (missing) Result panel 5182 SARS-CoV-2 (COVID-19) RNA [Presence] in Nasopharynx by TAMMI with non-probe detection 2025-04-15 19:27:07 [facility] Not detected (missing) (missing) Result panel 5183 Human coronavirus 229E RNA [Presence] in Nasopharynx by TAMMI with non-probe detection 2025-04-15 19:27:07 [facility] Not detected (missing) (missing) Result panel 5184 Human coronavirus HKU1 RNA [Presence] in Nasopharynx by TAMMI with non-probe detection 2025-04-15 19:27:07 [facility] Not detected (missing) (missing) Result panel 5185 Human coronavirus NL63 RNA [Presence] in Nasopharynx by TAMMI with non-probe detection 2025-04-15 19:27:07 [facility] Not detected (missing) (missing) Result panel 5186 Human coronavirus OC43 RNA [Presence] in Nasopharynx by TAMMI with non-probe detection 2025-04-15 19:27:07 [facility] Not detected (missing) (missing) Result panel 5187 Human metapneumovirus RNA [Presence] in Nasopharynx by TAMMI with non-probe detection 2025-04-15 19:27:07 [facility] Not detected (missing) (missing) Result panel 5188 Rhinovirus+Enterovirus RNA [Presence] in Nasopharynx by TAMMI with non-probe detection 2025-04-15 19:27:07 [facility] Not detected (missing) (missing) Result panel 5189 Influenza virus A RNA [Presence] in Nasopharynx by TAMMI with non-probe detection 2025-04-15 19:27:07 [facility] Not detected (missing) (missing) Result panel 5190 Influenza virus B RNA [Presence] in Nasopharynx by TAMMI with non-probe detection 2025-04-15 19:27:07 [facility] Not detected (missing) (missing) Result panel 5191 Parainfluenza virus 1 RNA [Presence] in Nasopharynx by TAMMI with non-probe detection 2025-04-15 19:27:07 [facility] Not detected (missing) (missing) Result panel 5192 Parainfluenza virus 2 RNA [Presence] in Nasopharynx by TAMMI with non-probe detection 2025-04-15 19:27:07 [facility] Not detected (missing) (missing) Result panel 5193 Parainfluenza virus 3 RNA [Presence] in Nasopharynx by TAMMI with non-probe detection 2025-04-15 19:27:07 [facility] Not detected (missing) (missing) Result panel 5194 Parainfluenza virus 4 RNA [Presence] in Nasopharynx by TAMMI with non-probe detection 2025-04-15 19:27:07 [facility] Not detected (missing) (missing) Result panel 5195 Respiratory syncytial virus RNA [Presence] in Nasopharynx by TAMMI with non-probe detec 2025-04-15 19:27:07 [facility] Not detected (missing) (missing) Result panel 5196 Bordetella pertussis.pertussis toxin promoter region [Presence] in Nasopharynx by TAMMI 2025-04-15 19:27:07 [facility] Not detected (missing) (missing) Result panel 5197 Chlamydophila pneumoniae DNA [Presence] in Nasopharynx by TAMMI with non-probe detectio 2025-04-15 19:27:07 [facility] Not detected (missing) (missing) Result panel 5198 Mycoplasma pneumoniae DNA [Presence] in Nasopharynx by TAMMI with non-probe detection 2025-04-15 19:27:07 [facility] Not detected (missing) (missing) Result panel 5199 Adenovirus DNA [Presence] in Nasopharynx by TAMMI with non-probe detection 2025-04-15 19:27:07 [facility] Not detected (missing) (missing) Result panel 5200 SARS-CoV-2 (COVID-19) RNA [Presence] in Nasopharynx by TAMMI with non-probe detection 2025-04-15 19:27:07 [facility] Not detected (missing) (missing) Result panel 5201 Human coronavirus 229E RNA [Presence] in Nasopharynx by TAMMI with non-probe detection 2025-04-15 19:27:07 [facility] Not detected (missing) (missing) Result panel 5202 Human coronavirus HKU1 RNA [Presence] in Nasopharynx by TAMMI with non-probe detection 2025-04-15 19:27:07 [facility] Not detected (missing) (missing) Result panel 5203 Human coronavirus NL63 RNA [Presence] in Nasopharynx by TAMMI with non-probe detection 2025-04-15 19:27:07 [facility] Not detected (missing) (missing) Result panel 5204 Human coronavirus OC43 RNA [Presence] in Nasopharynx by TAMMI with non-probe detection 2025-04-15 19:27:07 [facility] Not detected (missing) (missing) Result panel 5205 Human metapneumovirus RNA [Presence] in Nasopharynx by TAMMI with non-probe detection 2025-04-15 19:27:07 [facility] Not detected (missing) (missing) Result panel 5206 Rhinovirus+Enterovirus RNA [Presence] in Nasopharynx by TAMMI with non-probe detection 2025-04-15 19:27:07 [facility] Not detected (missing) (missing) Result panel 5207 Influenza virus A RNA [Presence] in Nasopharynx by TAMMI with non-probe detection 2025-04-15 19:27:07 [facility] Not detected (missing) (missing) Result panel 5208 Influenza virus B RNA [Presence] in Nasopharynx by TAMMI with non-probe detection 2025-04-15 19:27:07 [facility] Not detected (missing) (missing) Result panel 5209 Parainfluenza virus 1 RNA [Presence] in Nasopharynx by TAMMI with non-probe detection 2025-04-15 19:27:07 [facility] Not detected (missing) (missing) Result panel 5210 Parainfluenza virus 2 RNA [Presence] in Nasopharynx by TAMMI with non-probe detection 2025-04-15 19:27:07 [facility] Not detected (missing) (missing) Result panel 5211 Parainfluenza virus 3 RNA [Presence] in Nasopharynx by TAMMI with non-probe detection 2025-04-15 19:27:07 [facility] Not detected (missing) (missing) Result panel 5212 Parainfluenza virus 4 RNA [Presence] in Nasopharynx by TAMMI with non-probe detection 2025-04-15 19:27:07 [facility] Not detected (missing) (missing) Result panel 5213 Respiratory syncytial virus RNA [Presence] in Nasopharynx by TAMMI with non-probe detec 2025-04-15 19:27:07 [facility] Not detected (missing) (missing) Result panel 5214 Bordetella pertussis.pertussis toxin promoter region [Presence] in Nasopharynx by TAMMI 2025-04-15 19:27:07 [facility] Not detected (missing) (missing) Result panel 5215 Chlamydophila pneumoniae DNA [Presence] in Nasopharynx by TAMMI with non-probe detectio 2025-04-15 19:27:07 [facility] Not detected (missing) (missing) Result panel 5216 Mycoplasma pneumoniae DNA [Presence] in Nasopharynx by TAMMI with non-probe detection 2025-04-15 19:27:07 [facility] Not detected (missing) (missing) Result panel 5217 Adenovirus DNA [Presence] in Nasopharynx by TAMMI with non-probe detection 2025-04-15 19:27:07 [facility] Not detected (missing) (missing) Result panel 5218 SARS-CoV-2 (COVID-19) RNA [Presence] in Nasopharynx by TAMMI with non-probe detection 2025-04-15 19:27:07 [facility] Not detected (missing) (missing) Result panel 5219 Human coronavirus 229E RNA [Presence] in Nasopharynx by TAMMI with non-probe detection 2025-04-15 19:27:07 [facility] Not detected (missing) (missing) Result panel 5220 Human coronavirus HKU1 RNA [Presence] in Nasopharynx by TAMMI with non-probe detection 2025-04-15 19:27:07 [facility] Not detected (missing) (missing) Result panel 5221 Human coronavirus NL63 RNA [Presence] in Nasopharynx by TAMMI with non-probe detection 2025-04-15 19:27:07 [facility] Not detected (missing) (missing) Result panel 5222 Human coronavirus OC43 RNA [Presence] in Nasopharynx by TAMMI with non-probe detection 2025-04-15 19:27:07 [facility] Not detected (missing) (missing) Result panel 5223 Human metapneumovirus RNA [Presence] in Nasopharynx by TAMMI with non-probe detection 2025-04-15 19:27:07 [facility] Not detected (missing) (missing) Result panel 5224 Rhinovirus+Enterovirus RNA [Presence] in Nasopharynx by TAMMI with non-probe detection 2025-04-15 19:27:07 [facility] Not detected (missing) (missing) Result panel 5225 Influenza virus A RNA [Presence] in Nasopharynx by TAMMI with non-probe detection 2025-04-15 19:27:07 [facility] Not detected (missing) (missing) Result panel 5226 Influenza virus B RNA [Presence] in Nasopharynx by TAMMI with non-probe detection 2025-04-15 19:27:07 [facility] Not detected (missing) (missing) Result panel 5227 Parainfluenza virus 1 RNA [Presence] in Nasopharynx by TAMMI with non-probe detection 2025-04-15 19:27:07 [facility] Not detected (missing) (missing) Result panel 5228 Parainfluenza virus 2 RNA [Presence] in Nasopharynx by TAMMI with non-probe detection 2025-04-15 19:27:07 [facility] Not detected (missing) (missing) Result panel 5229 Parainfluenza virus 3 RNA [Presence] in Nasopharynx by TAMMI with non-probe detection 2025-04-15 19:27:07 [facility] Not detected (missing) (missing) Result panel 5230 Parainfluenza virus 4 RNA [Presence] in Nasopharynx by TAMMI with non-probe detection 2025-04-15 19:27:07 [facility] Not detected (missing) (missing) Result panel 5231 Respiratory syncytial virus RNA [Presence] in Nasopharynx by TAMMI with non-probe detec 2025-04-15 19:27:07 [facility] Not detected (missing) (missing) Result panel 5232 Bordetella pertussis.pertussis toxin promoter region [Presence] in Nasopharynx by TAMMI 2025-04-15 19:27:07 [facility] Not detected (missing) (missing) Result panel 5233 Chlamydophila pneumoniae DNA [Presence] in Nasopharynx by TAMMI with non-probe detectio 2025-04-15 19:27:07 [facility] Not detected (missing) (missing) Result panel 5234 Mycoplasma pneumoniae DNA [Presence] in Nasopharynx by TAMMI with non-probe detection 2025-04-15 19:27:07 [facility] Not detected (missing) (missing) Result panel 5235 Adenovirus DNA [Presence] in Nasopharynx by TAMMI with non-probe detection 2025-04-15 19:27:07 [facility] Not detected (missing) (missing) Result panel 5236 SARS-CoV-2 (COVID-19) RNA [Presence] in Nasopharynx by TAMMI with non-probe detection 2025-04-15 19:27:07 [facility] Not detected (missing) (missing) Result panel 5237 Human coronavirus 229E RNA [Presence] in Nasopharynx by TAMMI with non-probe detection 2025-04-15 19:27:07 [facility] Not detected (missing) (missing) Result panel 5238 Human coronavirus HKU1 RNA [Presence] in Nasopharynx by TAMMI with non-probe detection 2025-04-15 19:27:07 [facility] Not detected (missing) (missing) Result panel 5239 Human coronavirus NL63 RNA [Presence] in Nasopharynx by TAMMI with non-probe detection 2025-04-15 19:27:07 [facility] Not detected (missing) (missing) Result panel 5240 Human coronavirus OC43 RNA [Presence] in Nasopharynx by TAMMI with non-probe detection 2025-04-15 19:27:07 [facility] Not detected (missing) (missing) Result panel 5241 Human metapneumovirus RNA [Presence] in Nasopharynx by TAMMI with non-probe detection 2025-04-15 19:27:07 [facility] Not detected (missing) (missing) Result panel 5242 Rhinovirus+Enterovirus RNA [Presence] in Nasopharynx by TAMMI with non-probe detection 2025-04-15 19:27:07 [facility] Not detected (missing) (missing) Result panel 5243 Influenza virus A RNA [Presence] in Nasopharynx by TAMMI with non-probe detection 2025-04-15 19:27:07 [facility] Not detected (missing) (missing) Result panel 5244 Influenza virus B RNA [Presence] in Nasopharynx by TAMMI with non-probe detection 2025-04-15 19:27:07 [facility] Not detected (missing) (missing) Result panel 5245 Parainfluenza virus 1 RNA [Presence] in Nasopharynx by TAMMI with non-probe detection 2025-04-15 19:27:07 [facility] Not detected (missing) (missing) Result panel 5246 Parainfluenza virus 2 RNA [Presence] in Nasopharynx by TAMMI with non-probe detection 2025-04-15 19:27:07 [facility] Not detected (missing) (missing) Result panel 5247 Parainfluenza virus 3 RNA [Presence] in Nasopharynx by TAMMI with non-probe detection 2025-04-15 19:27:07 [facility] Not detected (missing) (missing) Result panel 5248 Parainfluenza virus 4 RNA [Presence] in Nasopharynx by TAMMI with non-probe detection 2025-04-15 19:27:07 [facility] Not detected (missing) (missing) Result panel 5249 Respiratory syncytial virus RNA [Presence] in Nasopharynx by TAMMI with non-probe detec 2025-04-15 19:27:07 [facility] Not detected (missing) (missing) Result panel 5250 Bordetella pertussis.pertussis toxin promoter region [Presence] in Nasopharynx by TAMMI 2025-04-15 19:27:07 [facility] Not detected (missing) (missing) Result panel 5251 Chlamydophila pneumoniae DNA [Presence] in Nasopharynx by TAMMI with non-probe detectio 2025-04-15 19:27:07 [facility] Not detected (missing) (missing) Result panel 5252 Mycoplasma pneumoniae DNA [Presence] in Nasopharynx by TAMMI with non-probe detection 2025-04-15 19:27:07 [facility] Not detected (missing) (missing) Result panel 5253 Thyroid Stimulating Hormone 2025-04-15 19:58 [facility] 2.06 uiu/ml (missing) Result panel 5254 Adenovirus 2025-04-15 20:21 [facility] Not Detected (missing) (missing) B. parapertussis 2025-04-15 20:21 [facility] Not Detected (missing) (missing) Bordetella pertussis 2025-04-15 20:21 [facility] Not Detected (missing) (missing) Chlamydophila pneumoniae 2025-04-15 20:21 [facility] Not Detected (missing) (missing) Coronavirus 229E 2025-04-15 20:21 [facility] Not Detected (missing) (missing) Coronavirus HKU1 2025-04-15 20:21 [facility] Not Detected (missing) (missing) Coronavirus NL 63 2025-04-15 20:21 [facility] Not Detected (missing) (missing) Coronavirus OC43 2025-04-15 20:21 [facility] Not Detected (missing) (missing) Human Metapneumovirus 2025-04-15 20:21 [facility] Not Detected (missing) (missing) Human Rhinovirus/Enterovi carson 2025-04-15 20:21 [facility] Not Detected (missing) (missing) Influenza A 2025-04-15 20:21 [facility] Not Detected (missing) (missing) Influenza B 2025-04-15 20:21 [facility] Not Detected (missing) (missing) Mycoplasma pneumoniae 2025-04-15 20:21 [facility] Not Detected (missing) (missing) Parainfluenza Virus 1 2025-04-15 20:21 [facility] Not Detected (missing) (missing) Parainfluenza Virus 2 2025-04-15 20:21 [facility] Not Detected (missing) (missing) Parainfluenza Virus 3 2025-04-15 20:21 [facility] Not Detected (missing) (missing) Parainfluenza Virus 4 2025-04-15 20:21 [facility] Not Detected (missing) (missing) Respiratory Syncytial Virus 2025-04-15 20:21 [facility] Not Detected (missing) (missing) SARS- CoV-2 2025-04-15 20:21 [facility] Not Detected (missing) The [employer] SARS-CoV-2 test is a rapid, real-time RT-PCR test intended for the qualitative detection of nucleic acid from the SARS-CoV-2 in either nasopharyngeal, nasal, or mid-turbinate swab and/or nasal wash/ aspirate specimens collected from individuals suspected of COVID-19 by their healthcare provider. Results are for the detection of SARS-CoV-2 RNA. The SARS-CoV-2 RNA is generally detectable in upper respiratory specimens during the acute phase of infection. Positive results are indicative of active infection with SARS-CoV-2; clinical correlation with patient history and other diagnostic information is necessary to determine patient infection status. Positive results do not rule out bacterial infection or co-infection with other viruses. The agent detected may not be the definite cause of disease. Negative results do not preclude SARS-CoV-2 infection and should not be used as the sole basis for treatment or other patient management decisions. Negative results must be combined with clinical observations, patient history, and epidemiological information. The [employer] SARS-CoV-2 test is only for use under the Food and Drug Administrations Emergency Use Authorization. Result panel 5255 Emergency department note 2025-04-15 21:23 [facility] (missing) (missing) (missing ) Result panel 5256 POC Glucose 2025-04-16 01:18 [facility] 393 mg/dl (missing) Result panel 5257 White blood cell count 2025-04-16 04:31:08 [facility] 1 0.6 X10^3/uL (missing) Result panel 5258 Red blood cell count 2025-04-16 04:31:08 [facility] 4.2 6 X10^6/uL (missing) Result panel 5259 Hemoglobin 2025-04-16 04:31:08 [facility] 13.0 g/d L (missing) Result panel 5260 Hematocrit 2025-04-16 04:31:08 [facility] 38.4 % (missing) Result panel 5261 MCV (mean corpuscular volume ) determination 2025-04-16 04:31:08 [facility] 90.0 fL (mis sing) Result panel 5262 Mean corpuscular hemoglobin (MCH) determination 2025-04-16 04:31:08 [facility] 30.5 PG (missing) Result panel 5263 Mean corpuscular hemoglobin concentration (MCHC) determination 2025-04-16 04:31:08 [facility] 33.9 % (mis sing) Result panel 5264 Red cell distribution width determination 2025-04-16 04:31:08 [facility] 13.1 % (mis sing) Result panel 5265 Platelet count 2025-04-16 04:31:08 [facility] 256 X10^3/uL (missing) Result panel 5266 Automated neutrophil % 2025-04-16 04:31:08 [facility] 8 6.1 % (missing) Result panel 5267 Automated lymphocyte % 2025-04-16 04:31:08 [facility] 1 2.5 % (missing) Result panel 5268 Automated monocyte % 2025-04-16 04:31:08 [facility] 0.7 % (missing) Result panel 5269 Automated eosinophil % 2025-04-16 04:31:08 [facility] 0 .0 % (missing) Result panel 5270 Automated basophil % 2025-04-16 04:31:08 [facility] 0.7 % (missing) Result panel 5271 Absolute neutrophil count 2025-04-16 04:31:08 [facility] l 9100 /uL (missing) Result panel 5272 Absolute lymphocyte count 2025-04-16 04:31:[facility] 1300 /[facility] (missing) Result panel 5273 Automated blood monocyte count 2025-04-16 04:31:08 [facility] spital 100 /uL (missing) Result panel 5274 Automated eosinophil count 2025-04-16 04:31:[facility] ([facility]) Result panel 5275 Automated basophil count 2025-04-16 04:31:08 [facility] 100 /uL (missing) Result panel 5276 Sodium [Moles/volume] in Serum or Plasma 2025-04-16 04:31:08 [facility] 135 mmol/L ([facility]) Result panel 5277 Potassium [Moles/volume] in Serum or Plasma 2025-04-16 04:31:08 [facility] 4.8 mmol/L ([facility]) Result panel 5278 Chloride [Moles/volume] in Serum or Plasma 2025-04-16 04:31:08 [facility] 101 mmol/L ( [facility]) Result panel 5279 Carbon dioxide, total [Moles/volume] in Serum or Plasma 2025-04-16 04:31:08 [facility] 25 mmol/L (miss ing) Result panel 5280 Urea nitrogen [Mass/volume] in Serum or Plasma 2025-04-16 04:31:08 [facility] 33 mg/dL ([facility]) Result panel 5281 Creatinine [Mass/volume] in Serum or Plasma 2025-04-16 04:31:08 [facility] 1.05 mg/dL ([facility]) Result panel 5282 Glomerular filtration rate (GFR) estimation 2025-04-16 04:31:08 [facility] 55 mL/min ( missing) Result panel 5283 BUN/creatinine ratio 2025-04-16 04:31:08 [facility] 31. 4 (missing) (missing) Result panel 5284 Glucose [Mass/volume] in Serum or Plasma 2025-04-16 04:31:08 [facility] 244 mg/dL ([facility]) Result panel 5285 Calcium [Mass/volume] in Serum or Plasma 2025-04-16 04:31:08 [facility] 8.5 mg/dL ([facility]) Result panel 5286 White blood cell count 2025-04-16 04:31:08 [facility] 1 0.6 X10^3/uL (missing) Result panel 5287 Red blood cell count 2025-04-16 04:31:08 [facility] 4.2 6 X10^6/uL (missing) Result panel 5288 Hemoglobin 2025-04-16 04:31:08 [facility] 13.0 g/d L (missing) Result panel 5289 Hematocrit 2025-04-16 04:31:08 [facility] 38.4 % (missing) Result panel 5290 MCV (mean corpuscular volume ) determination 2025-04-16 04:31:08 [facility] 90.0 fL (mis sing) Result panel 5291 Mean corpuscular hemoglobin (MCH) determination 2025-04-16 04:31:08 [facility] 30.5 PG (missing) Result panel 5292 Mean corpuscular hemoglobin concentration (MCHC) determination 2025-04-16 04:31:08 [facility] 33.9 % (mis sing) Result panel 5293 Red cell distribution width determination 2025-04-16 04:31:08 [facility] 13.1 % (mis sing) Result panel 5294 Platelet count 2025-04-16 04:31:08 [facility] 256 X10^3/uL (missing) Result panel 5295 Automated neutrophil % 2025-04-16 04:31:08 [facility] 8 6.1 % (missing) Result panel 5296 Automated lymphocyte % 2025-04-16 04:31:08 [facility] 1 2.5 % (missing) Result panel 5297 Automated monocyte % 2025-04-16 04:31:08 [facility] 0.7 % (missing) Result panel 5298 Automated eosinophil % 2025-04-16 04:31:08 [facility] 0 .0 % (missing) Result panel 5299 Automated basophil % 2025-04-16 04:31:08 [facility] 0.7 % (missing) Result panel 5300 Absolute neutrophil count 2025-04-16 04:31:08 [facility] l 9100 /uL (missing) Result panel 5301 Absolute lymphocyte count 2025-04-16 04:31:08 [facility] l 1300 /uL (missing) Result panel 5302 Automated blood monocyte count 2025-04-16 04:31:08 [facility] spital 100 /uL (missing) Result panel 5303 Automated eosinophil count 2025-04-16 04:31[facility] Result panel 5304 Automated basophil count 2025-04-16 04:31:08 [facility] 100 /uL (missing) Result panel 5305 Sodium [Moles/volume] in Serum or Plasma 2025-04-16 04:31:08 [facility] 135 mmol/L ([facility]) Result panel 5306 Potassium [Moles/volume] in Serum or Plasma 2025-04-16 04:31:08 [facility] 4.8 mmol/L ([facility]) Result panel 5307 Chloride [Moles/volume] in Serum or Plasma 2025-04-16 04:31:08 [facility] 101 mmol/L ([facility]) Result panel 5308 Carbon dioxide, total [Moles/volume] in Serum or Plasma 2025-04-16 04:31:08 [facility] 25 mmol/L ([facility]) Result panel 5309 Urea nitrogen [Mass/volume] in Serum or Plasma 2025-04-16 04:31:08 [facility] 33 mg/dL ([facility]) Result panel 5310 Creatinine [Mass/volume] in Serum or Plasma 2025-04-16 04:31:08 [facility] 1.05 mg/dL ([facility]) Result panel 5311 Glomerular filtration rate (GFR) estimation 2025-04-16 04:31:08 [facility] 55 mL/min ( missing) Result panel 5312 BUN/creatinine ratio 2025-04-16 04:31:08 [facility] 31. 4 (missing) (missing) Result panel 5313 Glucose [Mass/volume] in Serum or Plasma 2025-04-16 04:31:08 [facility] 244 mg/dL ([facility]) Result panel 5314 Calcium [Mass/volume] in Serum or Plasma 2025-04-16 04:31:08 [facility] 8.5 mg/dL ([facility]) Result panel 5315 White blood cell count 2025-04-16 05:31:07 [facility] 1 0.6 X10^3/uL (missing) Result panel 5316 Red blood cell count 2025-04-16 05:31:07 [facility] 4.2 6 X10^6/uL (missing) Result panel 5317 Hemoglobin 2025-04-16 05:31:07 [facility] 13.0 g/d L (missing) Result panel 5318 Hematocrit 2025-04-16 05:31:07 [facility] 38.4 % (missing) Result panel 5319 MCV (mean corpuscular volume ) determination 2025-04-16 05:31:07 [facility] 90.0 fL (mis sing) Result panel 5320 Mean corpuscular hemoglobin (MCH) determination 2025-04-16 05:31:07 [facility] 30.5 PG (missing) Result panel 5321 Mean corpuscular hemoglobin concentration (MCHC) determination 2025-04-16 05:31:07 [facility] 33.9 % (mis sing) Result panel 5322 Red cell distribution width determination 2025-04-16 05:31:07 [facility] 13.1 % (mis sing) Result panel 5323 Platelet count 2025-04-16 05:31:07 [facility] 256 X10^3/uL (missing) Result panel 5324 Automated neutrophil % 2025-04-16 05:31:07 [facility] 8 6.1 % (missing) Result panel 5325 Automated lymphocyte % 2025-04-16 05:31:07 [facility] 1 2.5 % (missing) Result panel 5326 Automated monocyte % 2025-04-16 05:31:07 [facility] 0.7 % (missing) Result panel 5327 Automated eosinophil % 2025-04-16 05:31:07 [facility] 0 .0 % (missing) Result panel 5328 Automated basophil % 2025-04-16 05:31:07 [facility] 0.7 % (missing) Result panel 5329 Absolute neutrophil count 2025-04-16 05:31:07 [facility] ([facility] Result panel 5330 Absolute lymphocyte count 2025-04-16 05:31:07 [facility] l 1300 /uL (missing) Result panel 5331 Automated blood monocyte count 2025-04-16 05:31:07 [facility] 100 /uL (missing) Result panel 5332 Automated eosinophil count 2025-04-16 05:31:07 [facility] 0 /uL (missing) Result panel 5333 Automated basophil count 2025-04-16 05:31:07 [facility] 100 /uL (missing) Result panel 5334 Sodium [Moles/volume] in Serum or Plasma 2025-04-16 05:31:07 [facility] 135 mmol/L ([facility]) Result panel 5335 Potassium [Moles/volume] in Serum or Plasma 2025-04-16 05:31:07 [facility] 4.8 mmol/L ([facility]) Result panel 5336 Chloride [Moles/volume] in Serum or Plasma 2025-04-16 05:31:07 [facility] 101 mmol/L ([facility]) Result panel 5337 Carbon dioxide, total [Moles/volume] in Serum or Plasma 2025-04-16 05:31:07 [facility] 25 mmol/L ([facility]) Result panel 5338 Urea nitrogen [Mass/volume] in Serum or Plasma 2025-04-16 05:31:07 [facility] 33 mg/dL ([facility]) Result panel 5339 Creatinine [Mass/volume] in Serum or Plasma 2025-04-16 05:31:07 [facility] 1.05 mg/dL ([facility]) Result panel 5340 Glomerular filtration rate (GFR) estimation 2025-04-16 05:31:07 [facility] 55 mL/min ( missing) Result panel 5341 BUN/creatinine ratio 2025-04-16 05:31:07 [facility] 31. 4 (missing) (missing) Result panel 5342 Glucose [Mass/volume] in Serum or Plasma 2025-04-16 05:31:07 [facility] 244 mg/dL ([facility]) Result panel 5343 Calcium [Mass/volume] in Serum or Plasma 2025-04-16 05:31:07 [facility] 8.5 mg/dL ([facility]) Result panel 5344 White blood cell count 2025-04-16 05:31:07 [facility] 1 0.6 X10^3/uL (missing) Result panel 5345 Red blood cell count 2025-04-16 05:31:07 [facility] 4.2 6 X10^6/uL (missing) Result panel 5346 Hemoglobin 2025-04-16 05:31:07 [facility] 13.0 g/d L (missing) Result panel 5347 Hematocrit 2025-04-16 05:31:07 [facility] 38.4 % (missing) Result panel 5348 MCV (mean corpuscular volume ) determination 2025-04-16 05:31:07 [facility] 90.0 fL (mis sing) Result panel 5349 Mean corpuscular hemoglobin (MCH) determination 2025-04-16 05:31:07 [facility] 30.5 PG (missing) Result panel 5350 Mean corpuscular hemoglobin concentration (MCHC) determination 2025-04-16 05:31:07 [facility] 33.9 % (mis sing) Result panel 5351 Red cell distribution width determination 2025-04-16 05:31:07 [facility] 13.1 % (mis sing) Result panel 5352 Platelet count 2025-04-16 05:31:07 [facility] 256 X10^3/uL (missing) Result panel 5353 Automated neutrophil % 2025-04-16 05:31:07 [facility] 8 6.1 % (missing) Result panel 5354 Automated lymphocyte % 2025-04-16 05:31:07 [facility] 1 2.5 % (missing) Result panel 5355 Automated monocyte % 2025-04-16 05:31:07 [facility] 0.7 % (missing) Result panel 5356 Automated eosinophil % 2025-04-16 05:31:07 [facility] 0 .0 % (missing) Result panel 5357 Automated basophil % 2025-04-16 05:31:07 [facility] 0.7 % (missing) Result panel 5358 Absolute neutrophil count 2025-04-16 05:31:07 [facility] 9[facility] /[facility]L ([facility]) Result panel 5359 Absolute lymphocyte count 2025-04-16 05:31:07 [facility] 1300 /uL (missing) Result panel 5360 Automated blood monocyte count 2025-04-16 05:31:07 [facility] 100 /uL (missing) Result panel 5361 Automated eosinophil count 2025-04-16 05:31:07 [facility] ([facility]) Result panel 5362 Automated basophil count 2025-04-16 05:31:07 [facility] 100 /uL (missing) Result panel 5363 Sodium [Moles/volume] in Serum or Plasma 2025-04-16 05:31:07 [facility] 135 mmol/L ([facility]) Result panel 5364 Potassium [Moles/volume] in Serum or Plasma 2025-04-16 05:31:07 [facility] 4.8 mmol/L ([facility]) Result panel 5365 Chloride [Moles/volume] in Serum or Plasma 2025-04-16 05:31:07 [facility] 101 mmol/L ([facility]) Result panel 5366 Carbon dioxide, total [Moles/volume] in Serum or Plasma 2025-04-16 05:31:07 [facility] 25 mmol/L ([facility]) Result panel 5367 Urea nitrogen [Mass/volume] in Serum or Plasma 2025-04-16 05:31:07 [facility] 33 mg/dL ([facility]) Result panel 5368 Creatinine [Mass/volume] in Serum or Plasma 2025-04-16 05:31:07 [facility] 1.05 mg/dL ([facility]) Result panel 5369 Glomerular filtration rate (GFR) estimation 2025-04-16 05:31:07 [facility] 55 mL/min ( missing) Result panel 5370 BUN/creatinine ratio 2025-04-16 05:31:07 [facility] 31. 4 (missing) (missing) Result panel 5371 Glucose [Mass/volume] in Serum or Plasma 2025-04-16 05:31:07 [facility] 244 mg/dL ([facility]) Result panel 5372 Calcium [Mass/volume] in Serum or Plasma 2025-04-16 05:31:07 [facility] 8.5 mg/dL ([facility]) Result panel 5373 White blood cell count 2025-04-16 05:31:07 [facility] 1 0.6 X10^3/uL (missing) Result panel 5374 Red blood cell count 2025-04-16 05:31:07 [facility] 4.2 6 X10^6/uL (missing) Result panel 5375 Hemoglobin 2025-04-16 05:31:07 [facility] 13.0 g/d L (missing) Result panel 5376 Hematocrit 2025-04-16 05:31:07 [facility] 38.4 % (missing) Result panel 5377 MCV (mean corpuscular volume ) determination 2025-04-16 05:31:07 [facility] 90.0 fL (mis sing) Result panel 5378 Mean corpuscular hemoglobin (MCH) determination 2025-04-16 05:31:07 [facility] 30.5 PG (missing) Result panel 5379 Mean corpuscular hemoglobin concentration (MCHC) determination 2025-04-16 05:31:07 [facility] 33.9 % (mis sing) Result panel 5380 Red cell distribution width determination 2025-04-16 05:31:07 [facility] 13.1 % (mis sing) Result panel 5381 Platelet count 2025-04-16 05:31:07 [facility] 256 X10^3/uL (missing) Result panel 5382 Automated neutrophil % 2025-04-16 05:31:07 [facility] 8 6.1 % (missing) Result panel 5383 Automated lymphocyte % 2025-04-16 05:31:07 [facility] 1 2.5 % (missing) Result panel 5384 Automated monocyte % 2025-04-16 05:31:07 [facility] 0.7 % (missing) Result panel 5385 Automated eosinophil % 2025-04-16 05:31:07 [facility] 0 .0 % (missing) Result panel 5386 Automated basophil % 2025-04-16 05:31:07 [facility] 0.7 % (missing) Result panel 5387 Absolute neutrophil count 2025-04-16 05:31:07 [facility] l 9100 /uL (missing) Result panel 5388 Absolute lymphocyte count 2025-04-16 05:31:07 [facility] 1300 /uL (missing) Result panel 5389 Automated blood monocyte count 2025-04-16 05:31:07 [facility] 100 /uL (missing) Result panel 5390 Automated eosinophil count 2025-04-16 05:31:07 [facility] 0 /uL (missing) Result panel 5391 Automated basophil count 2025-04-16 05:31:07 [facility] 100 /uL (missing) Result panel 5392 Sodium [Moles/volume] in Serum or Plasma 2025-04-16 05:31:07 [facility] 135 mmol/L ([facility]) Result panel 5393 Potassium [Moles/volume] in Serum or Plasma 2025-04-16 05:31:07 [facility] 4.8 mmol/L ([facility]) Result panel 5394 Chloride [Moles/volume] in Serum or Plasma 2025-04-16 05:31:07 [facility] 101 mmol/L ([facility]) Result panel 5395 Carbon dioxide, total [Moles/volume] in Serum or Plasma 2025-04-16 05:31:07 [facility] 25 mmol/L ([facility]) Result panel 5396 Urea nitrogen [Mass/volume] in Serum or Plasma 2025-04-16 05:31:07 [facility] 33 mg/dL ([facility]) Result panel 5397 Creatinine [Mass/volume] in Serum or Plasma 2025-04-16 05:31:07 [facility] 1.05 mg/dL ([facility]) Result panel 5398 Glomerular filtration rate (GFR) estimation 2025-04-16 05:31:07 [facility] 55 mL/min ( missing) Result panel 5399 BUN/creatinine ratio 2025-04-16 05:31:07 [facility] 31. 4 (missing) (missing) Result panel 5400 Glucose [Mass/volume] in Serum or Plasma 2025-04-16 05:31:07 [facility] 244 mg/dL ([facility]) Result panel 5401 Calcium [Mass/volume] in Serum or Plasma 2025-04-16 05:31:07 [facility] 8.5 mg/dL ([facility]) Result panel 5402 White blood cell count 2025-04-16 05:31:07 [facility] 1 0.6 X10^3/uL (missing) Result panel 5403 Red blood cell count 2025-04-16 05:31:07 [facility] 4.2 6 X10^6/uL (missing) Result panel 5404 Hemoglobin 2025-04-16 05:31:07 [facility] 13.0 g/d L (missing) Result panel 5405 Hematocrit 2025-04-16 05:31:07 [facility] 38.4 % (missing) Result panel 5406 MCV (mean corpuscular volume ) determination 2025-04-16 05:31:07 [facility] 90.0 fL (mis sing) Result panel 5407 Mean corpuscular hemoglobin (MCH) determination 2025-04-16 05:31:07 [facility] 30.5 PG (missing) Result panel 5408 Mean corpuscular hemoglobin concentration (MCHC) determination 2025-04-16 05:31:07 [facility] 33.9 % (mis sing) Result panel 5409 Red cell distribution width determination 2025-04-16 05:31:07 [facility] 13.1 % (mis sing) Result panel 5410 Platelet count 2025-04-16 05:31:07 [facility] 256 X10^3/uL (missing) Result panel 5411 Automated neutrophil % 2025-04-16 05:31:07 [facility] 8 6.1 % (missing) Result panel 5412 Automated lymphocyte % 2025-04-16 05:31:07 [facility] 1 2.5 % (missing) Result panel 5413 Automated monocyte % 2025-04-16 05:31:07 [facility] 0.7 % (missing) Result panel 5414 Automated eosinophil % 2025-04-16 05:31:07 [facility] 0 .0 % (missing) Result panel 5415 Automated basophil % 2025-04-16 05:31:07 [facility] 0.7 % (missing) Result panel 5416 Absolute neutrophil count 2025-04-16 05:31:07 [facility] 9100 /uL (missing) Result panel 5417 Absolute lymphocyte count 2025-04-16 05:31:07 [facility] 1300 /uL (missing) Result panel 5418 Automated blood monocyte count 2025-04-16 05:31:07 [facility] 100 /uL (missing) Result panel 5419 Automated eosinophil count 2025-04-16 05:31:07 [facility] /[facility] (missing) Result panel 5420 Automated basophil count 2025-04-16 05:31:07 [facility] 100 /uL (missing) Result panel 5421 Sodium [Moles/volume] in Serum or Plasma 2025-04-16 05:31:07 [facility] 135 mmol/L ([facility]) Result panel 5422 Potassium [Moles/volume] in Serum or Plasma 2025-04-16 05:31:07 [facility] 4.8 mmol/L ([facility]) Result panel 5423 Chloride [Moles/volume] in Serum or Plasma 2025-04-16 05:31:07 [facility] 101 mmol/L ([facility]) Result panel 5424 Carbon dioxide, total [Moles/volume] in Serum or Plasma 2025-04-16 05:31:07 [facility] 25 mmol/L ([facility]) Result panel 5425 Urea nitrogen [Mass/volume] in Serum or Plasma 2025-04-16 05:31:07 [facility] 33 mg/dL ([facility]) Result panel 5426 Creatinine [Mass/volume] in Serum or Plasma 2025-04-16 05:31:07 [facility] 1.05 mg/dL ([facility]) Result panel 5427 Glomerular filtration rate (GFR) estimation 2025-04-16 05:31:07 [facility] 55 mL/min ( missing) Result panel 5428 BUN/creatinine ratio 2025-04-16 05:31:07 [facility] 31. 4 (missing) (missing) Result panel 5429 Glucose [Mass/volume] in Serum or Plasma 2025-04-16 05:31:07 [facility] 244 mg/dL ([facility]) Result panel 5430 Calcium [Mass/volume] in Serum or Plasma 2025-04-16 05:31:07 [facility] 8.5 mg/dL ([facility]) Result panel 5431 White blood cell count 2025-04-16 05:31:07 [facility] 1 0.6 X10^3/uL (missing) Result panel 5432 Red blood cell count 2025-04-16 05:31:07 [facility] 4.2 6 X10^6/uL (missing) Result panel 5433 Hemoglobin 2025-04-16 05:31:07 [facility] 13.0 g/d L (missing) Result panel 5434 Hematocrit 2025-04-16 05:31:07 [facility] 38.4 % (missing) Result panel 5435 MCV (mean corpuscular volume ) determination 2025-04-16 05:31:07 [facility] 90.0 fL (mis sing) Result panel 5436 Mean corpuscular hemoglobin (MCH) determination 2025-04-16 05:31:07 [facility] 30.5 PG (missing) Result panel 5437 Mean corpuscular hemoglobin concentration (MCHC) determination 2025-04-16 05:31:07 [facility] 33.9 % (mis sing) Result panel 5438 Red cell distribution width determination 2025-04-16 05:31:07 [facility] 13.1 % (mis sing) Result panel 5439 Platelet count 2025-04-16 05:31:07 [facility] 256 X10^3/uL (missing) Result panel 5440 Automated neutrophil % 2025-04-16 05:31:07 [facility] 8 6.1 % (missing) Result panel 5441 Automated lymphocyte % 2025-04-16 05:31:07 [facility] 1 2.5 % (missing) Result panel 5442 Automated monocyte % 2025-04-16 05:31:07 [facility] 0.7 % (missing) Result panel 5443 Automated eosinophil % 2025-04-16 05:31:07 [facility] 0 .0 % (missing) Result panel 5444 Automated basophil % 2025-04-16 05:31:07 [facility] 0.7 % (missing) Result panel 5445 Absolute neutrophil count 2025-04-16 05:31:07 [facility] l 9100 /uL (missing) Result panel 5446 Absolute lymphocyte count 2025-04-16 05:31:07 [facility] l 1300 /uL (missing) Result panel 5447 Automated blood monocyte count 2025-04-16 05:31:07 [facility] 100 /uL (missing) Result panel 5448 Automated eosinophil count 2025-04-16 05:31:07 [facility] ([facility]) Result panel 5449 Automated basophil count 2025-04-16 05:31:07 [facility] 100 /uL (missing) Result panel 5450 Sodium [Moles/volume] in Serum or Plasma 2025-04-16 05:31:07 [facility] 135 mmol/L ([facility]) Result panel 5451 Potassium [Moles/volume] in Serum or Plasma 2025-04-16 05:31:07 [facility] 4.8 mmol/L ([facility]) Result panel 5452 Chloride [Moles/volume] in Serum or Plasma 2025-04-16 05:31:07 [facility] 101 mmol/L ([facility]) Result panel 5453 Carbon dioxide, total [Moles/volume] in Serum or Plasma 2025-04-16 05:31:07 [facility] 25 mmol/L ([facility]) Result panel 5454 Urea nitrogen [Mass/volume] in Serum or Plasma 2025-04-16 05:31:07 [facility] 33 mg/dL ([facility]) Result panel 5455 Creatinine [Mass/volume] in Serum or Plasma 2025-04-16 05:31:07 [facility] 1.05 mg/dL ([facility]) Result panel 5456 Glomerular filtration rate (GFR) estimation 2025-04-16 05:31:07 [facility] 55 mL/min ( missing) Result panel 5457 BUN/creatinine ratio 2025-04-16 05:31:07 [facility] 31. 4 (missing) (missing) Result panel 5458 Glucose [Mass/volume] in Serum or Plasma 2025-04-16 05:31:07 [facility] 244 mg/dL ([facility]) Result panel 5459 Calcium [Mass/volume] in Serum or Plasma 2025-04-16 05:31:07 [facility] 8.5 mg/dL ([facility]) Result panel 5460 White blood cell count 2025-04-16 05:31:07 [facility] 1 0.6 X10^3/uL (missing) Result panel 5461 Red blood cell count 2025-04-16 05:31:07 [facility] 4.2 6 X10^6/uL (missing) Result panel 5462 Hemoglobin 2025-04-16 05:31:07 [facility] 13.0 g/d L (missing) Result panel 5463 Hematocrit 2025-04-16 05:31:07 [facility] 38.4 % (missing) Result panel 5464 MCV (mean corpuscular volume ) determination 2025-04-16 05:31:07 [facility] 90.0 fL (mis sing) Result panel 5465 Mean corpuscular hemoglobin (MCH) determination 2025-04-16 05:31:07 [facility] 30.5 PG (missing) Result panel 5466 Mean corpuscular hemoglobin concentration (MCHC) determination 2025-04-16 05:31:07 [facility] 33.9 % (mis sing) Result panel 5467 Red cell distribution width determination 2025-04-16 05:31:07 [facility] 13.1 % (mis sing) Result panel 5468 Platelet count 2025-04-16 05:31:07 [facility] 256 X10^3/uL (missing) Result panel 5469 Automated neutrophil % 2025-04-16 05:31:07 [facility] 8 6.1 % (missing) Result panel 5470 Automated lymphocyte % 2025-04-16 05:31:07 [facility] 1 2.5 % (missing) Result panel 5471 Automated monocyte % 2025-04-16 05:31:07 [facility] 0.7 % (missing) Result panel 5472 Automated eosinophil % 2025-04-16 05:31:07 [facility] 0 .0 % (missing) Result panel 5473 Automated basophil % 2025-04-16 05:31:07 [facility] 0.7 % (missing) Result panel 5474 Absolute neutrophil count 2025-04-16 05:31:07 [facility] 9100 /uL (missing) Result panel 5475 Absolute lymphocyte count 2025-04-16 05:31:07 [facility] l 1300 /uL (missing) Result panel 5476 Automated blood monocyte count 2025-04-16 05:31:07 [facility] 100 /uL (missing) Result panel 5477 Automated eosinophil count 2025-04-16 05:31:07 [facility] 0 /uL (missing) Result panel 5478 Automated basophil count 2025-04-16 05:31:07 [facility] 100 /uL (missing) Result panel 5479 Sodium [Moles/volume] in Serum or Plasma 2025-04-16 05:31:07 [facility] 135 mmol/L ([facility]) Result panel 5480 Potassium [Moles/volume] in Serum or Plasma 2025-04-16 05:31:07 [facility] 4.8 mmol/L ([facility]) Result panel 5481 Chloride [Moles/volume] in Serum or Plasma 2025-04-16 05:31:07 [facility] 101 mmol/L ([facility]) Result panel 5482 Carbon dioxide, total [Moles/volume] in Serum or Plasma 2025-04-16 05:31:07 [facility] 25 mmol/L ([facility]) Result panel 5483 Urea nitrogen [Mass/volume] in Serum or Plasma 2025-04-16 05:31:07 [facility] 33 mg/dL ([facility]) Result panel 5484 Creatinine [Mass/volume] in Serum or Plasma 2025-04-16 05:31:07 [facility] 1.05 mg/dL ([facility]) Result panel 5485 Glomerular filtration rate (GFR) estimation 2025-04-16 05:31:07 [facility] 55 mL/min ( missing) Result panel 5486 BUN/creatinine ratio 2025-04-16 05:31:07 [facility] 31. 4 (missing) (missing) Result panel 5487 Glucose [Mass/volume] in Serum or Plasma 2025-04-16 05:31:07 [facility] 244 mg/dL ([facility]) Result panel 5488 Calcium [Mass/volume] in Serum or Plasma 2025-04-16 05:31:07 [facility] 8.5 mg/dL ([facility]) Result panel 5489 White blood cell count 2025-04-16 05:31:07 [facility] 1 0.6 X10^3/uL (missing) Result panel 5490 Red blood cell count 2025-04-16 05:31:07 [facility] 4.2 6 X10^6/uL (missing) Result panel 5491 White blood cell count 2025-04-16 05:31:07 [facility] 1 0.6 X10^3/uL (missing) Result panel 5492 Red blood cell count 2025-04-16 05:31:07 [facility] 4.2 6 X10^6/uL (missing) Result panel 5493 Hemoglobin 2025-04-16 05:31:07 [facility] 13.0 g/d L (missing) Result panel 5494 Hematocrit 2025-04-16 05:31:07 [facility] 38.4 % (missing) Result panel 5495 MCV (mean corpuscular volume ) determination 2025-04-16 05:31:07 [facility] 90.0 fL ([facility]) Result panel 5496 Mean corpuscular hemoglobin (MCH) determination 2025-04-16 05:31:07 [facility] 30.5 PG (missing) Result panel 5497 Mean corpuscular hemoglobin concentration (MCHC) determination 2025-04-16 05:31:07 [facility] 33.9 % (mis sing) Result panel 5498 Red cell distribution width determination 2025-04-16 05:31:07 [facility] 13.1 % (mis sing) Result panel 5499 Platelet count 2025-04-16 05:31:07 [facility] 256 X10^3/uL (missing) Result panel 5500 Automated neutrophil % 2025-04-16 05:31:07 [facility] 8 6.1 % (missing) Result panel 5501 Hemoglobin 2025-04-16 05:31:07 [facility] 13.0 g/d L (missing) Result panel 5502 Automated lymphocyte % 2025-04-16 05:31:07 [facility] 1 2.5 % (missing) Result panel 5503 Automated monocyte % 2025-04-16 05:31:07 [facility] 0.7 % (missing) Result panel 5504 Automated eosinophil % 2025-04-16 05:31:07 [facility] 0 .0 % (missing) Result panel 5505 Automated basophil % 2025-04-16 05:31:07 [facility] 0.7 % (missing) Result panel 5506 Absolute neutrophil count 2025-04-16 05:31:07 [facility] /[facility]L ([facility]) Result panel 5507 Absolute lymphocyte count 2025-04-16 05:31:07 [facility] 1300 /uL (missing) Result panel 5508 Automated blood monocyte count 2025-04-16 05:31:07 [facility] 100 /uL (missing) Result panel 5509 Automated eosinophil count 2025-04-16 05:31:07 [facility] /[facility] ([facility]) Result panel 5510 Automated basophil count 2025-04-16 05:31:07 [facility] 100 /uL (missing) Result panel 5511 Sodium [Moles/volume] in Serum or Plasma 2025-04-16 05:31:07 [facility] 135 mmol/L ([facility]) Result panel 5512 Hematocrit 2025-04-16 05:31:07 [facility] 38.4 % (missing) Result panel 5513 Potassium [Moles/volume] in Serum or Plasma 2025-04-16 05:31:07 [facility] 4.8 mmol/L ([facility]) Result panel 5514 Chloride [Moles/volume] in Serum or Plasma 2025-04-16 05:31:07 [facility] 101 mmol/L ([facility]) Result panel 5515 Carbon dioxide, total [Moles/volume] in Serum or Plasma 2025-04-16 05:31:07 [facility] 25 mmol/L (miss ing) Result panel 5516 Urea nitrogen [Mass/volume] in Serum or Plasma 2025-04-16 05:31:07 [facility] 33 mg/dL ( issing) Result panel 5517 Creatinine [Mass/volume] in Serum or Plasma 2025-04-16 05:31:07 [facility] 1.05 mg/dL ([facility]) Result panel 5518 Glomerular filtration rate (GFR) estimation 2025-04-16 05:31:07 [facility] 55 mL/min ( missing) Result panel 5519 BUN/creatinine ratio 2025-04-16 05:31:07 [facility] 31. 4 (missing) (missing) Result panel 5520 Glucose [Mass/volume] in Serum or Plasma 2025-04-16 05:31:07 [facility] 244 mg/dL ([facility]) Result panel 5521 Calcium [Mass/volume] in Serum or Plasma 2025-04-16 05:31:07 [facility] 8.5 mg/dL ([facility]) Result panel 5522 MCV (mean corpuscular volume ) determination 2025-04-16 05:31:07 [facility] 90.0 fL (mis sing) Result panel 5523 Mean corpuscular hemoglobin (MCH) determination 2025-04-16 05:31:07 [facility] 30.5 PG (missing) Result panel 5524 Mean corpuscular hemoglobin concentration (MCHC) determination 2025-04-16 05:31:07 [facility] 33.9 % (mis sing) Result panel 5525 Red cell distribution width determination 2025-04-16 05:31:07 [facility] 13.1 % (mis sing) Result panel 5526 Platelet count 2025-04-16 05:31:07 [facility] 256 X10^3/uL (missing) Result panel 5527 Automated neutrophil % 2025-04-16 05:31:07 [facility] 8 6.1 % (missing) Result panel 5528 Automated lymphocyte % 2025-04-16 05:31:07 [facility] 1 2.5 % (missing) Result panel 5529 Automated monocyte % 2025-04-16 05:31:07 [facility] 0.7 % (missing) Result panel 5530 Automated eosinophil % 2025-04-16 05:31:07 [facility] 0 .0 % (missing) Result panel 5531 White blood cell count 2025-04-16 05:31:07 [facility] 1 0.6 X10^3/uL (missing) Result panel 5532 Red blood cell count 2025-04-16 05:31:07 [facility] 4.2 6 X10^6/uL (missing) Result panel 5533 Hemoglobin 2025-04-16 05:31:07 [facility] 13.0 g/d L (missing) Result panel 5534 Hematocrit 2025-04-16 05:31:07 [facility] 38.4 % (missing) Result panel 5535 MCV (mean corpuscular volume ) determination 2025-04-16 05:31:07 [facility] 90.0 fL (mis sing) Result panel 5536 Mean corpuscular hemoglobin (MCH) determination 2025-04-16 05:31:07 [facility] 30.5 PG (missing) Result panel 5537 Automated basophil % 2025-04-16 05:31:07 [facility] 0.7 % (missing) Result panel 5538 Mean corpuscular hemoglobin concentration (MCHC) determination 2025-04-16 05:31:07 [facility] 33.9 % (mis sing) Result panel 5539 Red cell distribution width determination 2025-04-16 05:31:07 [facility] 13.1 % (mis sing) Result panel 5540 Platelet count 2025-04-16 05:31:07 [facility] 256 X10^3/uL (missing) Result panel 5541 Automated neutrophil % 2025-04-16 05:31:07 [facility] 8 6.1 % (missing) Result panel 5542 Automated lymphocyte % 2025-04-16 05:31:07 [facility] 1 2.5 % (missing) Result panel 5543 Automated monocyte % 2025-04-16 05:31:07 [facility] 0.7 % (missing) Result panel 5544 Automated eosinophil % 2025-04-16 05:31:07 [facility] 0 .0 % (missing) Result panel 5545 Automated basophil % 2025-04-16 05:31:07 [facility] 0.7 % (missing) Result panel 5546 Absolute neutrophil count 2025-04-16 05:31:07 [facility] l 9100 /uL (missing) Result panel 5547 Absolute lymphocyte count 2025-04-16 05:31:07 [facility] l 1300 /uL (missing) Result panel 5548 Absolute neutrophil count 2025-04-16 05:31:07 [facility] ([facility] Result panel 5549 Automated blood monocyte count 2025-04-16 05:31:07 [facility] 100 /uL (missing) Result panel 5550 Automated eosinophil count 2025-04-16 05:31:07 [facility] ([facility]) Result panel 5551 Automated basophil count 2025-04-16 05:31:07 [facility] 100 /uL (missing) Result panel 5552 Sodium [Moles/volume] in Serum or Plasma 2025-04-16 05:31:07 [facility] 135 mmol/L ([facility]) Result panel 5553 Potassium [Moles/volume] in Serum or Plasma 2025-04-16 05:31:07 [facility] 4.8 mmol/L ([facility]) Result panel 5554 Chloride [Moles/volume] in Serum or Plasma 2025-04-16 05:31:07 [facility] 101 mmol/L ([facility]) Result panel 5555 Carbon dioxide, total [Moles/volume] in Serum or Plasma 2025-04-16 05:31:07 [facility] 25 mmol/L ([facility]) Result panel 5556 Urea nitrogen [Mass/volume] in Serum or Plasma 2025-04-16 05:31:07 [facility] 33 mg/dL ([facility]) Result panel 5557 Creatinine [Mass/volume] in Serum or Plasma 2025-04-16 05:31:07 [facility] 1.05 mg/dL ([facility]) Result panel 5558 Glomerular filtration rate (GFR) estimation 2025-04-16 05:31:07 [facility] 55 mL/min ( missing) Result panel 5559 Absolute lymphocyte count 2025-04-16 05:31:07 [facility] l 1300 /uL (missing) Result panel 5560 BUN/creatinine ratio 2025-04-16 05:31:07 [facility] 31. 4 (missing) (missing) Result panel 5561 Glucose [Mass/volume] in Serum or Plasma 2025-04-16 05:31:07 [facility] 244 mg/dL ([facility]) Result panel 5562 Calcium [Mass/volume] in Serum or Plasma 2025-04-16 05:31:07 [facility] 8.5 mg/dL (m issing) Result panel 5563 Automated blood monocyte count 2025-04-16 05:31:07 [facility] 100 /uL (missing) Result panel 5564 Automated eosinophil count 2025-04-16 05:31:07 [facility] 0 /uL (missing) Result panel 5565 Automated basophil count 2025-04-16 05:31:07 [facility] 100 /uL (missing) Result panel 5566 Sodium [Moles/volume] in Serum or Plasma 2025-04-16 05:31:07 [facility] 135 mmol/L ([facility]) Result panel 5567 Potassium [Moles/volume] in Serum or Plasma 2025-04-16 05:31:07 [facility] 4.8 mmol/L ([facility]) Result panel 5568 Chloride [Moles/volume] in Serum or Plasma 2025-04-16 05:31:07 [facility] 101 mmol/L ([facility]) Result panel 5569 Carbon dioxide, total [Moles/volume] in Serum or Plasma 2025-04-16 05:31:07 [facility] 25 mmol/L ([facility]) Result panel 5570 Urea nitrogen [Mass/volume] in Serum or Plasma 2025-04-16 05:31:07 [facility] 33 mg/dL ([facility]) Result panel 5571 Creatinine [Mass/volume] in Serum or Plasma 2025-04-16 05:31:07 [facility] 1.05 mg/dL ([facility]) Result panel 5572 Glomerular filtration rate (GFR) estimation 2025-04-16 05:31:07 [facility] 55 mL/min ( missing) Result panel 5573 BUN/creatinine ratio 2025-04-16 05:31:07 [facility] 31. 4 (missing) (missing) Result panel 5574 Glucose [Mass/volume] in Serum or Plasma 2025-04-16 05:31:07 [facility] 244 mg/dL ([facility]) Result panel 5575 Calcium [Mass/volume] in Serum or Plasma 2025-04-16 05:31:07 [facility] 8.5 mg/dL ([facility]) Result panel 5576 White blood cell count 2025-04-16 05:31:07 [facility] 1 0.6 X10^3/uL (missing) Result panel 5577 Red blood cell count 2025-04-16 05:31:07 [facility] 4.2 6 X10^6/uL (missing) Result panel 5578 Hemoglobin 2025-04-16 05:31:07 [facility] 13.0 g/d L (missing) Result panel 5579 Hematocrit 2025-04-16 05:31:07 [facility] 38.4 % (missing) Result panel 5580 MCV (mean corpuscular volume ) determination 2025-04-16 05:31:07 [facility] 90.0 fL (mis sing) Result panel 5581 Mean corpuscular hemoglobin (MCH) determination 2025-04-16 05:31:07 [facility] 30.5 PG (missing) Result panel 5582 Mean corpuscular hemoglobin concentration (MCHC) determination 2025-04-16 05:31:07 [facility] 33.9 % (mis sing) Result panel 5583 Red cell distribution width determination 2025-04-16 05:31:07 [facility] 13.1 % (mis sing) Result panel 5584 Platelet count 2025-04-16 05:31:07 [facility] 256 X10^3/uL (missing) Result panel 5585 Automated neutrophil % 2025-04-16 05:31:07 [facility] 8 6.1 % (missing) Result panel 5586 Automated lymphocyte % 2025-04-16 05:31:07 [facility] 1 2.5 % (missing) Result panel 5587 Automated monocyte % 2025-04-16 05:31:07 [facility] 0.7 % (missing) Result panel 5588 Automated eosinophil % 2025-04-16 05:31:07 [facility] 0 .0 % (missing) Result panel 5589 Automated basophil % 2025-04-16 05:31:07 [facility] 0.7 % (missing) Result panel 5590 Absolute neutrophil count 2025-04-16 05:31:07 [facility] 9100 /uL (missing) Result panel 5591 Absolute lymphocyte count 2025-04-16 05:31:07 [facility] 1300 /uL (missing) Result panel 5592 Automated blood monocyte count 2025-04-16 05:31:07 [facility] 100 /uL (missing) Result panel 5593 Automated eosinophil count 2025-04-16 05:31:07 [facility] /[facility] (missing) Result panel 5594 Automated basophil count 2025-04-16 05:31:07 [facility] 100 /uL (missing) Result panel 5595 Sodium [Moles/volume] in Serum or Plasma 2025-04-16 05:31:07 [facility] 135 mmol/L ([facility]) Result panel 5596 Potassium [Moles/volume] in Serum or Plasma 2025-04-16 05:31:07 [facility] 4.8 mmol/L ([facility]) Result panel 5597 Chloride [Moles/volume] in Serum or Plasma 2025-04-16 05:31:07 [facility] 101 mmol/L ([facility]) Result panel 5598 Carbon dioxide, total [Moles/volume] in Serum or Plasma 2025-04-16 05:31:07 [facility] 25 mmol/L ([facility]) Result panel 5599 Urea nitrogen [Mass/volume] in Serum or Plasma 2025-04-16 05:31:07 [facility] 33 mg/dL ([facility]) Result panel 5600 Creatinine [Mass/volume] in Serum or Plasma 2025-04-16 05:31:07 [facility] 1.05 mg/dL ([facility]) Result panel 5601 Glomerular filtration rate (GFR) estimation 2025-04-16 05:31:07 [facility] 55 mL/min ( missing) Result panel 5602 BUN/creatinine ratio 2025-04-16 05:31:07 [facility] 31. 4 (missing) (missing) Result panel 5603 Glucose [Mass/volume] in Serum or Plasma 2025-04-16 05:31:07 [facility] 244 mg/dL ([facility]) Result panel 5604 Calcium [Mass/volume] in Serum or Plasma 2025-04-16 05:31:07 [facility] 8.5 mg/dL ([facility]) Result panel 5605 White blood cell count 2025-04-16 05:31:07 [facility] 1 0.6 X10^3/uL (missing) Result panel 5606 Red blood cell count 2025-04-16 05:31:07 [facility] 4.2 6 X10^6/uL (missing) Result panel 5607 Hemoglobin 2025-04-16 05:31:07 [facility] 13.0 g/d L (missing) Result panel 5608 Hematocrit 2025-04-16 05:31:07 [facility] 38.4 % (missing) Result panel 5609 MCV (mean corpuscular volume ) determination 2025-04-16 05:31:07 [facility] 90.0 fL (mis sing) Result panel 5610 Mean corpuscular hemoglobin (MCH) determination 2025-04-16 05:31:07 [facility] 30.5 PG (missing) Result panel 5611 Mean corpuscular hemoglobin concentration (MCHC) determination 2025-04-16 05:31:07 [facility] 33.9 % (mis sing) Result panel 5612 Red cell distribution width determination 2025-04-16 05:31:07 [facility] 13.1 % (mis sing) Result panel 5613 Platelet count 2025-04-16 05:31:07 [facility] 256 X10^3/uL (missing) Result panel 5614 Automated neutrophil % 2025-04-16 05:31:07 [facility] 8 6.1 % (missing) Result panel 5615 Automated lymphocyte % 2025-04-16 05:31:07 [facility] 1 2.5 % (missing) Result panel 5616 Automated monocyte % 2025-04-16 05:31:07 [facility] 0.7 % (missing) Result panel 5617 Automated eosinophil % 2025-04-16 05:31:07 [facility] 0 .0 % (missing) Result panel 5618 Automated basophil % 2025-04-16 05:31:07 [facility] 0.7 % (missing) Result panel 5619 Absolute neutrophil count 2025-04-16 05:31:07 [facility] 9100 /uL (missing) Result panel 5620 Absolute lymphocyte count 2025-04-16 05:31:07 [facility] 1300 /uL (missing) Result panel 5621 Automated blood monocyte count 2025-04-16 05:31:07 [facility] 100 /uL (missing) Result panel 5622 Automated eosinophil count 2025-04-16 05:31:07 [facility] /[facility] (missing) Result panel 5623 Automated basophil count 2025-04-16 05:31:07 [facility] 100 /uL (missing) Result panel 5624 Sodium [Moles/volume] in Serum or Plasma 2025-04-16 05:31:07 [facility] 135 mmol/L (m [facility]) Result panel 5625 Potassium [Moles/volume] in Serum or Plasma 2025-04-16 05:31:07 [facility] 4.8 mmol/L ([facility]) Result panel 5626 Chloride [Moles/volume] in Serum or Plasma 2025-04-16 05:31:07 [facility] 101 mmol/L ([facility]) Result panel 5627 Carbon dioxide, total [Moles/volume] in Serum or Plasma 2025-04-16 05:31:07 [facility] 25 mmol/L ([facility]) Result panel 5628 Urea nitrogen [Mass/volume] in Serum or Plasma 2025-04-16 05:31:07 [facility] 33 mg/dL ([facility]) Result panel 5629 Creatinine [Mass/volume] in Serum or Plasma 2025-04-16 05:31:07 [facility] 1.05 mg/dL ([facility]) Result panel 5630 Glomerular filtration rate (GFR) estimation 2025-04-16 05:31:07 [facility] 55 mL/min ( missing) Result panel 5631 BUN/creatinine ratio 2025-04-16 05:31:07 [facility] 31. 4 (missing) (missing) Result panel 5632 Glucose [Mass/volume] in Serum or Plasma 2025-04-16 05:31:07 [facility] 244 mg/dL ([facility]) Result panel 5633 Calcium [Mass/volume] in Serum or Plasma 2025-04-16 05:31:07 [facility] 8.5 mg/dL ([facility]) Result panel 5634 White blood cell count 2025-04-16 05:31:07 [facility] 1 0.6 X10^3/uL (missing) Result panel 5635 Red blood cell count 2025-04-16 05:31:07 [facility] 4.2 6 X10^6/uL (missing) Result panel 5636 Hemoglobin 2025-04-16 05:31:07 [facility] 13.0 g/d L (missing) Result panel 5637 Hematocrit 2025-04-16 05:31:07 [facility] 38.4 % (missing) Result panel 5638 MCV (mean corpuscular volume ) determination 2025-04-16 05:31:07 [facility] 90.0 fL (mis sing) Result panel 5639 Mean corpuscular hemoglobin (MCH) determination 2025-04-16 05:31:07 [facility] 30.5 PG (missing) Result panel 5640 Mean corpuscular hemoglobin concentration (MCHC) determination 2025-04-16 05:31:07 [facility] 33.9 % (mis sing) Result panel 5641 Red cell distribution width determination 2025-04-16 05:31:07 [facility] 13.1 % (mis sing) Result panel 5642 Platelet count 2025-04-16 05:31:07 [facility] 256 X10^3/uL (missing) Result panel 5643 Automated neutrophil % 2025-04-16 05:31:07 [facility] 8 6.1 % (missing) Result panel 5644 Automated lymphocyte % 2025-04-16 05:31:07 [facility] 1 2.5 % (missing) Result panel 5645 Automated monocyte % 2025-04-16 05:31:07 [facility] 0.7 % (missing) Result panel 5646 Automated eosinophil % 2025-04-16 05:31:07 [facility] 0 .0 % (missing) Result panel 5647 Automated basophil % 2025-04-16 05:31:07 [facility] 0.7 % (missing) Result panel 5648 Absolute neutrophil count 2025-04-16 05:31:07 [facility] 9100 /uL (missing) Result panel 5649 Absolute lymphocyte count 2025-04-16 05:31:07 [facility] 1300 /uL (missing) Result panel 5650 Automated blood monocyte count 2025-04-16 05:31:07 [facility] 100 /uL (missing) Result panel 5651 Automated eosinophil count 2025-04-16 05:31:07 [facility] 0 /uL (missing) Result panel 5652 Automated basophil count 2025-04-16 05:31:07 [facility] 100 /uL (missing) Result panel 5653 Sodium [Moles/volume] in Serum or Plasma 2025-04-16 05:31:07 [facility] 135 mmol/L ([facility]) Result panel 5654 Potassium [Moles/volume] in Serum or Plasma 2025-04-16 05:31:07 [facility] 4.8 mmol/L ([facility]) Result panel 5655 Chloride [Moles/volume] in Serum or Plasma 2025-04-16 05:31:07 [facility] 101 mmol/L ([facility]) Result panel 5656 Carbon dioxide, total [Moles/volume] in Serum or Plasma 2025-04-16 05:31:07 [facility] 25 mmol/L ([facility]) Result panel 5657 Urea nitrogen [Mass/volume] in Serum or Plasma 2025-04-16 05:31:07 [facility] 33 mg/dL ([facility]) Result panel 5658 Creatinine [Mass/volume] in Serum or Plasma 2025-04-16 05:31:07 [facility] 1.05 mg/dL ([facility]) Result panel 5659 Glomerular filtration rate (GFR) estimation 2025-04-16 05:31:07 [facility] 55 mL/min ( missing) Result panel 5660 BUN/creatinine ratio 2025-04-16 05:31:07 [facility] 31. 4 (missing) (missing) Result panel 5661 Glucose [Mass/volume] in Serum or Plasma 2025-04-16 05:31:07 [facility] 244 mg/dL ([facility]) Result panel 5662 Calcium [Mass/volume] in Serum or Plasma 2025-04-16 05:31:07 [facility] 8.5 mg/dL ([facility]) Result panel 5663 Eosinophils Absolute Auto 2025-04-16 05:49 [facility] 0 /ul (missing ) Eosinophils Percent Auto 2025-04-16 05:[address] [place] [address] 0.0 % (missing ) Basophils Percent Auto 2025-04-16 05:[address] [place] [address] 0.7 % (missing ) Monocytes Percent Auto 2025-04-16 05:[address] [place] [address] 0.7 % (missing ) White Blood Cell Count 2025-04-16 05:[address] [place] [address] 10.6 x10 3/ul (missing ) Basophils Absolute Auto 2025-04-16 05:49 [facility] 100 /ul (missing ) Monocytes Absolute Auto 2025-04-16 05:49 [facility] 100 /ul (missing ) Lymphocytes Percent Auto 2025-04-16 05:[address] [place] [address] 12.5 % (missing ) Hemoglobin 2025-04-16 05:[address] [place] [address] 13.0 g/dl (missing) Red Cell Distribution Width 2025-04-16 05:[address] [place] [address] 13.1 % (missing ) Lymphocytes Absolute Auto 2025-04-16 05:[address] [place] [address] 1300 /ul (missing ) Platelet Count 2025-04-16 05:[address] [place] [address] 256 x1 0 3/ul (missing) Mean Corpuscular Hemoglobin 2025-04-16 05:49 [facility] 30.5 pg (missing ) Mean Corpuscular HGB Conc 2025-04-16 05:49 [facility] 33.9 % (missing ) Hematocrit 2025-04-16 05:49 [facility] 38.4 % (missing) Red Blood Cell Count 2025-04-16 05:[address] [place] [address] 4.26 x10 6/ul (missing) Neutrophils Percent Auto 2025-04-16 05:49 [facility] 86.1 % Delta: 5 9.5 on 04/15/25 Mean Corpuscular Volume 2025-04-16 05:49 [facility] 90.0 fl (missing ) Neutrophils Absolute Auto 2025-04-16 05:[address] [place] [address] 9100 /ul (missing ) Result panel 5664 Creatinine 2025-04-16 06:05 [facility] 1.05 mg/dl (missing) Chloride 2025-04-16 06:05 [facility] 101 mmol/l (missing) Sodium 2025-04-16 06:05 [facility] 135 mmol/l (missing) Glucose 2025-04-16 06:05 [facility] 244 mg/dl Delta: 144 on 04/15/25 Carbon Dioxide 2025-04-16 06:05 [facility] 25 mm ol/l (missing) BUN Creatinine Ratio 2025-04-16 06:05 [facility] 31.4 (missing) (missing ) Blood Urea Nitrogen 2025-04-16 06:05 [facility] 33 mg/dl (missing) Potassium 2025-04-16 06:05 [facility] 4.8 mmol/l (missing) Estimated Glomerular Filt Rate 2025-04-16 06:05 [facility] 55 ml/min Reported eGFR is based the CKD-EPI 2020 equation that does not use a race coefficient. An eGFR below 60 mL/min/1.73m2 suggests that some kidney damage has occurred, and indicative of chronic kidney disease if persisting greater than 3 months. An eGFR less than 15 is indicative of kidney failure. Calcium 2025-04-16 06:05 [facility] 8.5 mg/dl (missing) Result panel 5665 Mission Count 2025-04-16 07:[address] [place] [address] >100,000 cfu/ml (missing) ORGANISM 2025-04-16 07:34 [facility] GNBGram negative bacilli (missing) (missing) Action to follow 2025-04-16 07:34 [facility] Identification and Sensitivity to Follow (missing) (missing) Result panel 5666 POC Glucose 2025-04-16 07:37 [facility] 264 mg/dl Delta: 393 on 04/16/25-0116 Result panel 5667 Magnesium 2025-04-16 07:45 [facility] 2.9 mg/dl (missing) Result panel 5668 POC Glucose 2025-04-16 15:18 [facility] 297 mg/dl (missing) Result panel 5669 CAT scan report 2025-04-16 15:30 [facility] (missing) ( missing) (missing) Result panel 5670 POC Glucose 2025-04-16 17:23 [facility] 262 mg/dl (missing) Result panel 5671 Blood Culture 2025-04-16 18:14 [facility] (missing) (mi ssing) (missing) Blood Culture 2025-04-16 18:14 [facility] NO GROW TH AFTER 24 HOURS (missing) (missing) Result panel 5672 Blood Culture 2025-04-16 18:16 [facility] (missing) (mi ssing) (missing) Blood Culture 2025-04-16 18:16 [facility] NO GROW TH AFTER 24 HOURS (missing) (missing) Result panel 5673 POC Glucose 2025-04-16 20:47 [facility] 270 mg/dl (missing) Result panel 5674 Thyrotropin [Units/volume] in Serum or Plasma by Detection limit <= 0.05 mIU/L 2025-04-17 03:48:08 [facility] 5.71 uIU/mL (miss ing) Result panel 5675 Thyrotropin [Units/volume] in Serum or Plasma by Detection limit <= 0.05 mIU/L 2025-04-17 03:48:08 [facility] [facility] uIU/mL (miss ing) Result panel 5676 Thyrotropin [Units/volume] in Serum or Plasma by Detection limit <= 0.05 mIU/L 2025-04-17 04:48:07 [facility] 5.71 uIU/mL (miss ing) Result panel 5677 Thyrotropin [Units/volume] in Serum or Plasma by Detection limit <= 0.05 mIU/L 2025-04-17 04:48:07 [facility] 5.71 uIU/mL (miss ing) Result panel 5678 Thyrotropin [Units/volume] in Serum or Plasma by Detection limit <= 0.05 mIU/L 2025-04-17 04:48:07 [facility] 5.71 uIU/mL (miss ing) Result panel 5679 Thyrotropin [Units/volume] in Serum or Plasma by Detection limit <= 0.05 mIU/L 2025-04-17 04:48:07 [facility] 5.71 uIU/mL (miss ing) Result panel 5680 Thyrotropin [Units/volume] in Serum or Plasma by Detection limit <= 0.05 mIU/L 2025-04-17 04:48:07 [facility] 5.71 uIU/mL (miss ing) Result panel 5681 Thyrotropin [Units/volume] in Serum or Plasma by Detection limit <= 0.05 mIU/L 2025-04-17 04:48:07 [facility] 5.71 uIU/mL (miss ing) Result panel 5682 Thyrotropin [Units/volume] in Serum or Plasma by Detection limit <= 0.05 mIU/L 2025-04-17 04:48:07 [facility] 5.71 uIU/mL (miss ing) Result panel 5683 Thyrotropin [Units/volume] in Serum or Plasma by Detection limit <= 0.05 mIU/L 2025-04-17 04:48:07 [facility] 5.71 uIU/mL (miss ing) Result panel 5684 Thyrotropin [Units/volume] in Serum or Plasma by Detection limit <= 0.05 mIU/L 2025-04-17 04:48:07 [facility] 5.71 uIU/mL (miss ing) Result panel 5685 Thyrotropin [Units/volume] in Serum or Plasma by Detection limit <= 0.05 mIU/L 2025-04-17 04:48:07 [facility] 5.71 uIU/mL (miss ing) Result panel 5686 Thyrotropin [Units/volume] in Serum or Plasma by Detection limit <= 0.05 mIU/L 2025-04-17 04:48:07 [facility] 5.71 uIU/mL (miss ing) Result panel 5687 Thyrotropin [Units/volume] in Serum or Plasma by Detection limit <= 0.05 mIU/L 2025-04-17 04:48:07 [facility] 5.71 uIU/mL (miss ing) Result panel 5688 Magnesium 2025-04-17 05:28 [facility] 2.4 mg/dl (missing) Result panel 5689 Urine Culture 2025-04-17 06:51 [facility] (missing) (missing) (missing) [facility] Count 2025-04-17 06:51 [facility] >100,000 cfu/ml (missing) Ciprofloxacin 2025-04-17 06:51 [facility] <=0.06 (missing) (missing) Ertapenem 2025-04-17 06:51 [facility] <=0.12 (missing) (missing) Levofloxacin 2025-04-17 06:51 [facility] <=0.12 (missing) (missing) Ceftriaxone 2025-04-17 06:51 [facility] <=0.25 (missing) (missing) Meropenem 2025-04-17 06:51 [facility] <=0.25 (missing) (missing) Cefazolin 2025-04-17 06:51 [facility] <=1 (missing) (missing) Gentamicin 2025-04-17 06:[address] [place] [address] <=1 (missing) (missing) Tetracycline 2025-04-17 06:[address] [place] [address] <=1 (missing) (missing) Amoxicillin/Clavul anate 2025-04-17 06:51 [facility] <=2 (missing) (missing) Ampicillin 2025-04-17 06:51 [facility] <=2 (missing) (missing) Cefepime E-test 2025-04-17 06:51 [facility] <=2 (missing) (missing) Trimethoprim/Sulfa methoxazole 2025-04-17 06:[address] [place] [address] <=20 (missing) (missing) Piperacillin/Tazob actam 2025-04-17 06:[address] [place] [address] <=4 (missing) (missing) Nitrofurantoin 2025-04-17 06:51 [facility] 32 (missing) (missing) ORGANISM 2025-04-17 06:51 [facility] ESCCOLEscherichia coli (missing) (missing) Urine Culture 2025-04-17 06:51 [facility] Isolates that test susceptible to tetracycline are (missing) (missing) Action to follow 2025-04-17 06:51 [facility] No Further Workup (missing) (missing) Urine Culture 2025-04-17 06:[address] [place] [address] considered susceptible to doxycycline and minocycline. (missing) (missing) Result panel 5690 POC Glucose 2025-04-17 08:55 [facility] 238 mg/dl (missing) Result panel 5691 POC Glucose 2025-04-17 12:11 [facility] 234 mg/dl (missing) Result panel 5692 Thyroid Stimulating Hormone 2025-04-17 14:51 [facility] 5.71 uiu/ml Delta: 2 .06 on 04/15/25-1718 Result panel 5693 POC Glucose 2025-04-17 17:01 [facility] 179 mg/dl (missing) Result panel 5694 Blood Culture 2025-04-17 18:14 [facility] (missing) (nv ssing) (missing) Blood Culture 2025-04-17 18:14 [facility] NO GROW TH AFTER 48 HOURS (missing) (missing) Result panel 5695 Blood Culture 2025-04-17 18:17 [facility] (missing) (nv ssing) (missing) Blood Culture 2025-04-17 18:17 [facility] NO GROW TH AFTER 48 HOURS (missing) (missing) Result panel 5696 POC Glucose 2025-04-17 20:10 [facility] 181 mg/dl (missing) Result panel 5697 Magnesium [Mass/volume] in Serum or Plasma 2025-04-18 05:49:08 [facility] 2.2 mg/dL ( issing) Result panel 5698 Magnesium [Mass/volume] in Serum or Plasma 2025-04-18 05:49:08 [facility] 2.2 mg/dL ( issing) Result panel 5699 Magnesium [Mass/volume] in Serum or Plasma 2025-04-18 06:49:07 [facility] 2.2 mg/dL ( issing) Result panel 5700 Magnesium [Mass/volume] in Serum or Plasma 2025-04-18 06:49:07 [facility] 2.2 mg/dL ( issing) Result panel 5701 Magnesium [Mass/volume] in Serum or Plasma 2025-04-18 06:49:07 [facility] 2.2 mg/dL ( issing) Result panel 5702 Magnesium [Mass/volume] in Serum or Plasma 2025-04-18 06:49:07 [facility] 2.2 mg/dL ( issing) Result panel 5703 Magnesium [Mass/volume] in Serum or Plasma 2025-04-18 06:49:07 [facility] 2.2 mg/dL ( issing) Result panel 5704 Magnesium [Mass/volume] in Serum or Plasma 2025-04-18 06:49:07 [facility] 2.2 mg/dL ( issing) Result panel 5705 Magnesium [Mass/volume] in Serum or Plasma 2025-04-18 06:49:07 [facility] 2.2 mg/dL ( issing) Result panel 5706 Magnesium [Mass/volume] in Serum or Plasma 2025-04-18 06:49:07 [facility] 2.2 mg/dL ( issing) Result panel 5707 Magnesium [Mass/volume] in Serum or Plasma 2025-04-18 06:49:07 [facility] 2.2 mg/dL ( issing) Result panel 5708 Magnesium [Mass/volume] in Serum or Plasma 2025-04-18 06:49:07 [facility] 2.2 mg/dL ( issing) Result panel 5709 Magnesium [Mass/volume] in Serum or Plasma 2025-04-18 06:49:07 [facility] 2.2 mg/dL ([facility]) Result panel 5710 Magnesium [Mass/volume] in Serum or Plasma 2025-04-18 06:49:07 [facility] 2.2 mg/dL ([facility]) Result panel 5711 Magnesium 2025-04-18 07:25 [facility] 2.2 mg/dl (missing) Result panel 5712 POC Glucose 2025-04-18 07:58 [facility] 174 mg/dl (missing) Result panel 5713 POC Glucose 2025-04-18 11:44 [facility] 178 mg/dl (missing) Result panel 5714 POC Glucose 2025-04-18 16:49 [facility] 181 mg/dl (missing) Result panel 5715 Blood Culture 2025-04-18 18:14 [facility] (missing) (mi ssing) (missing) Blood Culture 2025-04-18 18:14 [facility] NO GROW TH AFTER 72 HOURS (missing) (missing) Result panel 5716 Blood Culture 2025-04-18 18:16 [facility] (missing) (mi ssing) (missing) Blood Culture 2025-04-18 18:16 [facility] NO GROW TH AFTER 72 HOURS (missing) (missing) Result panel 5717 POC Glucose 2025-04-18 20:31 [facility] 214 mg/dl (missing) Result panel 5718 POC Glucose 2025-04-19 07:36 [facility] 187 mg/dl (missing) Result panel 5719 POC Glucose 2025-04-19 11:48 [facility] 176 mg/dl (missing) Result panel 5720 Blood Culture 2025-04-19 18:15 [facility] (missing) (mi ssing) (missing) Blood Culture 2025-04-19 18:15 [facility] NO GROW TH AFTER 4 DAYS (missing) (missing) Result panel 5721 Blood Culture 2025-04-19 18:16 [facility] (missing) (mi ssing) (missing) Blood Culture 2025-04-19 18:16 [facility] NO GROW TH AFTER 4 DAYS (missing) (missing) Result panel 5722 Blood Culture 2025-04-20 18:14 [facility] (missing) (mi ssing) (missing) Blood Culture 2025-04-20 18:14 [facility] NO GROW TH AFTER 5 DAYS (missing) (missing) Result panel 5723 Blood Culture 2025-04-20 18:16 [facility] (missing) (mi ssing) (missing) Blood Culture 2025-04-20 18:16 [facility] NO GROW TH AFTER 5 DAYS (missing) (missing) Result panel 5724 X-ray report 2025-05-09 20:49 [facility] (missing) (mis sing) (missing) Result panel 5725 X-ray report 2025-05-09 20:49 [facility] (missing) (mis sing) (missing) Result panel 5726 POC Glucose 2025-05-09 21:07 [facility] 368 mg/dl (missing) Result panel 5727 Urine occult blood detection 2025-05-09 23:19:08 [facility] Negative (missing) (miss ing) Result panel 5728 Urine nitrate measurement 2025-05-09 23:19:08 [facility] Negative (missing) (miss ing) Result panel 5729 Urine bilirubin measurement 2025-05-09 23:19:08 [facility] Negative (missing) (miss ing) Result panel 5730 Urine urobilinogen detection 2025-05-09 23:19:08 [facility] 0.2 E.U./dL (miss ing) Result panel 5731 Urine leukocyte esterase detection 2025-05-09 23:19:08 [facility] Negative (missing) (missing) Result panel 5732 Microscopic analysis of urine for red blood cells (RBC) 2025-05-09 23:19:08 [facility] None seen (missing) (missing) Result panel 5733 Microscopic analysis of urine for white blood cells (WBC) 2025-05-09 23:19:08 [facility] None seen (missing) (missing) Result panel 5734 Urine squamous epithelial cell detection 2025-05-09 23:19:08 [facility] 0-1 /hpf (missing) (miss ing) Result panel 5735 Urine color determination 2025-05-09 23:19:08 [facility] Yellow (missing) (mis sing) Result panel 5736 Urine appearance 2025-05-09 23:19:08 [facility] Clear (missing) (missing) Result panel 5737 Urine color determination 2025-05-09 23:19:08 [facility] Yellow (missing) (mis sing) Result panel 5738 Urine appearance 2025-05-09 23:19:08 [facility] Clear (missing) (missing) Result panel 5739 Urine pH measurement 2025-05-09 23:19:08 [facility] 5.5 (missing) (missing) Result panel 5740 Urine specific gravity measurement 2025-05-09 23:19:08 [facility] 1.015 (missing) (miss ing) Result panel 5741 Urine protein measurement 2025-05-09 23:19:08 [facility] Negative (missing) (miss ing) Result panel 5742 Urine glucose measurement 2025-05-09 23:19:08 [facility] 3+ g/dL (missing) (miss ing) Result panel 5743 Urine ketones measurement 2025-05-09 23:19:08 [facility] Negative (missing) (miss ing) Result panel 5744 Urine occult blood detection 2025-05-09 23:19:08 [facility] Negative (missing) (miss ing) Result panel 5745 Urine nitrate measurement 2025-05-09 23:19:08 [facility] Negative (missing) (miss ing) Result panel 5746 Urine bilirubin measurement 2025-05-09 23:19:08 [facility] Negative (missing) (miss ing) Result panel 5747 Urine urobilinogen detection 2025-05-09 23:19:08 [facility] 0.2 E.U./dL (miss ing) Result panel 5748 Urine leukocyte esterase detection 2025-05-09 23:19:08 [facility] Negative (missing) (missing) Result panel 5749 Microscopic analysis of urine for red blood cells (RBC) 2025-05-09 23:19:08 [facility] None seen (missing) (missing) Result panel 5750 Microscopic analysis of urine for white blood cells (WBC) 2025-05-09 23:19:08 [facility] None seen (missing) (missing) Result panel 5751 Urine squamous epithelial cell detection 2025-05-09 23:19:08 [facility] 0-1 /hpf (missing) (miss ing) Result panel 5752 Urine pH measurement 2025-05-09 23:19:08 [facility] 5.5 (missing) (missing) Result panel 5753 Urine specific gravity measurement 2025-05-09 23:19:08 [facility] 1.015 (missing) (miss ing) Result panel 5754 Urine protein measurement 2025-05-09 23:19:08 [facility] Negative (missing) (miss ing) Result panel 5755 Urine glucose measurement 2025-05-09 23:19:08 [facility] 3+ g/dL (missing) (miss ing) Result panel 5756 Urine ketones measurement 2025-05-09 23:19:08 [facility] Negative (missing) (miss ing) Result panel 5757 Urine color determination 2025-05-10 00:19:07 [facility] Yellow (missing) (mis sing) Result panel 5758 Urine appearance 2025-05-10 00:19:07 [facility] Clear (missing) (missing) Result panel 5759 Urine pH measurement 2025-05-10 00:19:07 [facility] 5.5 (missing) (missing) Result panel 5760 Urine specific gravity measurement 2025-05-10 00:19:07 [facility] 1.015 (missing) (miss ing) Result panel 5761 Urine protein measurement 2025-05-10 00:19:07 [facility] Negative (missing) (miss ing) Result panel 5762 Urine glucose measurement 2025-05-10 00:19:07 [facility] 3+ g/dL (missing) (miss ing) Result panel 5763 Urine ketones measurement 2025-05-10 00:19:07 [facility] Negative (missing) (miss ing) Result panel 5764 Urine occult blood detection 2025-05-10 00:19:07 [facility] Negative (missing) (miss ing) Result panel 5765 Urine nitrate measurement 2025-05-10 00:19:07 [facility] Negative (missing) (miss ing) Result panel 5766 Urine bilirubin measurement 2025-05-10 00:19:07 [facility] Negative (missing) (miss ing) Result panel 5767 Urine urobilinogen detection 2025-05-10 00:19:07 [facility] 0.2 E.U./dL (miss ing) Result panel 5768 Urine leukocyte esterase detection 2025-05-10 00:19:07 [facility] Negative (missing) (missing) Result panel 5769 Microscopic analysis of urine for red blood cells (RBC) 2025-05-10 00:19:07 [facility] None seen (missing) (missing) Result panel 5770 Microscopic analysis of urine for white blood cells (WBC) 2025-05-10 00:19:07 [facility] None seen (missing) (missing) Result panel 5771 Urine squamous epithelial cell detection 2025-05-10 00:19:07 [facility] 0-1 /hpf (missing) (miss ing) Result panel 5772 Urine color determination 2025-05-10 00:19:07 [facility] Yellow (missing) (mis sing) Result panel 5773 Urine appearance 2025-05-10 00:19:07 [facility] Clear (missing) (missing) Result panel 5774 Urine pH measurement 2025-05-10 00:19:07 [facility] 5.5 (missing) (missing) Result panel 5775 Urine specific gravity measurement 2025-05-10 00:19:07 [facility] 1.015 (missing) (miss ing) Result panel 5776 Urine protein measurement 2025-05-10 00:19:07 [facility] Negative (missing) (miss ing) Result panel 5777 Urine glucose measurement 2025-05-10 00:19:07 [facility] 3+ g/dL (missing) (miss ing) Result panel 5778 Urine ketones measurement 2025-05-10 00:19:07 [facility] Negative (missing) (miss ing) Result panel 5779 Urine occult blood detection 2025-05-10 00:19:07 [facility] Negative (missing) (miss ing) Result panel 5780 Urine nitrate measurement 2025-05-10 00:19:07 [facility] Negative (missing) (miss ing) Result panel 5781 Urine bilirubin measurement 2025-05-10 00:19:07 [facility] Negative (missing) (miss ing) Result panel 5782 Urine urobilinogen detection 2025-05-10 00:19:07 [facility] 0.2 E.U./dL (miss ing) Result panel 5783 Urine leukocyte esterase detection 2025-05-10 00:19:07 [facility] Negative (missing) (missing) Result panel 5784 Microscopic analysis of urine for red blood cells (RBC) 2025-05-10 00:19:07 [facility] None seen (missing) (missing) Result panel 5785 Microscopic analysis of urine for white blood cells (WBC) 2025-05-10 00:19:07 [facility] None seen (missing) (missing) Result panel 5786 Urine squamous epithelial cell detection 2025-05-10 00:19:07 [facility] 0-1 /hpf (missing) (miss ing) Result panel 5787 Urine color determination 2025-05-10 00:19:07 [facility] Yellow (missing) (mis sing) Result panel 5788 Urine appearance 2025-05-10 00:19:07 [facility] Clear (missing) (missing) Result panel 5789 Urine pH measurement 2025-05-10 00:19:07 [facility] 5.5 (missing) (missing) Result panel 5790 Urine specific gravity measurement 2025-05-10 00:19:07 [facility] 1.015 (missing) (miss ing) Result panel 5791 Urine protein measurement 2025-05-10 00:19:07 [facility] Negative (missing) (miss ing) Result panel 5792 Urine glucose measurement 2025-05-10 00:19:07 [facility] 3+ g/dL (missing) (miss ing) Result panel 5793 Urine ketones measurement 2025-05-10 00:19:07 [facility] Negative (missing) (miss ing) Result panel 5794 Urine occult blood detection 2025-05-10 00:19:07 [facility] Negative (missing) (miss ing) Result panel 5795 Urine nitrate measurement 2025-05-10 00:19:07 [facility] Negative (missing) (miss ing) Result panel 5796 Urine bilirubin measurement 2025-05-10 00:19:07 [facility] Negative (missing) (miss ing) Result panel 5797 Urine urobilinogen detection 2025-05-10 00:19:07 [facility] 0.2 E.U./dL (miss ing) Result panel 5798 Urine leukocyte esterase detection 2025-05-10 00:19:07 [facility] Negative (missing) (missing) Result panel 5799 Microscopic analysis of urine for red blood cells (RBC) 2025-05-10 00:19:07 [facility] None seen (missing) (missing) Result panel 5800 Microscopic analysis of urine for white blood cells (WBC) 2025-05-10 00:19:07 [facility] None seen (missing) (missing) Result panel 5801 Urine squamous epithelial cell detection 2025-05-10 00:19:07 [facility] 0-1 /hpf (missing) (miss ing) Result panel 5802 Urine color determination 2025-05-10 00:19:07 [facility] Yellow (missing) (mis sing) Result panel 5803 Urine appearance 2025-05-10 00:19:07 [facility] Clear (missing) (missing) Result panel 5804 Urine pH measurement 2025-05-10 00:19:07 [facility] 5.5 (missing) (missing) Result panel 5805 Urine specific gravity measurement 2025-05-10 00:19:07 [facility] 1.015 (missing) (miss ing) Result panel 5806 Urine protein measurement 2025-05-10 00:19:07 [facility] Negative (missing) (miss ing) Result panel 5807 Urine glucose measurement 2025-05-10 00:19:07 [facility] 3+ g/dL (missing) (miss ing) Result panel 5808 Urine ketones measurement 2025-05-10 00:19:07 [facility] Negative (missing) (miss ing) Result panel 5809 Urine occult blood detection 2025-05-10 00:19:07 [facility] Negative (missing) (miss ing) Result panel 5810 Urine nitrate measurement 2025-05-10 00:19:07 [facility] Negative (missing) (miss ing) Result panel 5811 Urine bilirubin measurement 2025-05-10 00:19:07 [facility] Negative (missing) (miss ing) Result panel 5812 Urine urobilinogen detection 2025-05-10 00:19:07 [facility] 0.2 E.U./dL (miss ing) Result panel 5813 Urine leukocyte esterase detection 2025-05-10 00:19:07 [facility] Negative (missing) (missing) Result panel 5814 Microscopic analysis of urine for red blood cells (RBC) 2025-05-10 00:19:07 [facility] None seen (missing) (missing) Result panel 5815 Microscopic analysis of urine for white blood cells (WBC) 2025-05-10 00:19:07 [facility] None seen (missing) (missing) Result panel 5816 Urine squamous epithelial cell detection 2025-05-10 00:19:07 [facility] 0-1 /hpf (missing) (miss ing) Result panel 5817 Urine color determination 2025-05-10 00:19:07 [facility] Yellow (missing) (mis sing) Result panel 5818 Urine appearance 2025-05-10 00:19:07 [facility] Clear (missing) (missing) Result panel 5819 Urine pH measurement 2025-05-10 00:19:07 [facility] 5.5 (missing) (missing) Result panel 5820 Urine specific gravity measurement 2025-05-10 00:19:07 [facility] 1.015 (missing) (miss ing) Result panel 5821 Urine protein measurement 2025-05-10 00:19:07 [facility] Negative (missing) (miss ing) Result panel 5822 Urine glucose measurement 2025-05-10 00:19:07 [facility] 3+ g/dL (missing) (miss ing) Result panel 5823 Urine ketones measurement 2025-05-10 00:19:07 [facility] Negative (missing) (miss ing) Result panel 5824 Urine occult blood detection 2025-05-10 00:19:07 [facility] Negative (missing) (miss ing) Result panel 5825 Urine nitrate measurement 2025-05-10 00:19:07 [facility] Negative (missing) (miss ing) Result panel 5826 Urine bilirubin measurement 2025-05-10 00:19:07 [facility] Negative (missing) (miss ing) Result panel 5827 Urine urobilinogen detection 2025-05-10 00:19:07 [facility] 0.2 E.U./dL (miss ing) Result panel 5828 Urine leukocyte esterase detection 2025-05-10 00:19:07 [facility] Negative (missing) (missing) Result panel 5829 Microscopic analysis of urine for red blood cells (RBC) 2025-05-10 00:19:07 [facility] None seen (missing) (missing) Result panel 5830 Microscopic analysis of urine for white blood cells (WBC) 2025-05-10 00:19:07 [facility] None seen (missing) (missing) Result panel 5831 Urine squamous epithelial cell detection 2025-05-10 00:19:07 [facility] 0-1 /hpf (missing) (miss ing) Result panel 5832 Urine color determination 2025-05-10 00:19:07 [facility] Yellow (missing) (mis sing) Result panel 5833 Urine appearance 2025-05-10 00:19:07 [facility] Clear (missing) (missing) Result panel 5834 Urine pH measurement 2025-05-10 00:19:07 [facility] 5.5 (missing) (missing) Result panel 5835 Urine specific gravity measurement 2025-05-10 00:19:07 [facility] 1.015 (missing) (miss ing) Result panel 5836 Urine protein measurement 2025-05-10 00:19:07 [facility] Negative (missing) (miss ing) Result panel 5837 Urine glucose measurement 2025-05-10 00:19:07 [facility] 3+ g/dL (missing) (miss ing) Result panel 5838 Urine ketones measurement 2025-05-10 00:19:07 [facility] Negative (missing) (miss ing) Result panel 5839 Urine occult blood detection 2025-05-10 00:19:07 [facility] [facility] Negative (missing) (miss ing) Result panel 5840 Urine nitrate measurement 2025-05-10 00:19:07 [facility] Negative (missing) (miss ing) Result panel 5841 Urine bilirubin measurement 2025-05-10 00:19:07 [facility] Negative (missing) (miss ing) Result panel 5842 Urine urobilinogen detection 2025-05-10 00:19:07 [facility] 0.2 E.U./dL (miss ing) Result panel 5843 Urine leukocyte esterase detection 2025-05-10 00:19:07 [facility] Negative (missing) (missing) Result panel 5844 Microscopic analysis of urine for red blood cells (RBC) 2025-05-10 00:19:07 [facility] None seen (missing) (missing) Result panel 5845 Microscopic analysis of urine for white blood cells (WBC) 2025-05-10 00:19:07 [facility] None seen (missing) (missing) Result panel 5846 Urine squamous epithelial cell detection 2025-05-10 00:19:07 [facility] 0-1 /hpf (missing) (miss ing) Result panel 5847 Urine color determination 2025-05-10 00:19:07 [facility] Yellow (missing) (mis sing) Result panel 5848 Urine appearance 2025-05-10 00:19:07 [facility] Clear (missing) (missing) Result panel 5849 Urine pH measurement 2025-05-10 00:19:07 [facility] 5.5 (missing) (missing) Result panel 5850 Urine specific gravity measurement 2025-05-10 00:19:07 [facility] 1.015 (missing) (miss ing) Result panel 5851 Urine protein measurement 2025-05-10 00:19:07 [facility] Negative (missing) (miss ing) Result panel 5852 Urine glucose measurement 2025-05-10 00:19:07 [facility] 3+ g/dL (missing) (miss ing) Result panel 5853 Urine ketones measurement 2025-05-10 00:19:07 [facility] Negative (missing) (miss ing) Result panel 5854 Urine occult blood detection 2025-05-10 00:19:07 [facility] Negative (missing) (miss ing) Result panel 5855 Urine nitrate measurement 2025-05-10 00:19:07 [facility] Negative (missing) (miss ing) Result panel 5856 Urine bilirubin measurement 2025-05-10 00:19:07 [facility] Negative (missing) (miss ing) Result panel 5857 Urine urobilinogen detection 2025-05-10 00:19:07 [facility] 0.2 E.U./dL (miss ing) Result panel 5858 Urine leukocyte esterase detection 2025-05-10 00:19:07 [facility] Negative (missing) (missing) Result panel 5859 Microscopic analysis of urine for red blood cells (RBC) 2025-05-10 00:19:07 [facility] None seen (missing) (missing) Result panel 5860 Microscopic analysis of urine for white blood cells (WBC) 2025-05-10 00:19:07 [facility] None seen (missing) (missing) Result panel 5861 Urine squamous epithelial cell detection 2025-05-10 00:19:07 [facility] 0-1 /hpf (missing) (miss ing) Result panel 5862 Urine color determination 2025-05-10 00:19:07 [facility] Yellow (missing) (mis sing) Result panel 5863 Urine appearance 2025-05-10 00:19:07 [facility] Clear (missing) (missing) Result panel 5864 Urine pH measurement 2025-05-10 00:19:07 [facility] 5.5 (missing) (missing) Result panel 5865 Urine specific gravity measurement 2025-05-10 00:19:07 [facility] 1.015 (missing) (miss ing) Result panel 5866 Urine protein measurement 2025-05-10 00:19:07 [facility] Negative (missing) (miss ing) Result panel 5867 Urine glucose measurement 2025-05-10 00:19:07 [facility] 3+ g/dL (missing) (miss ing) Result panel 5868 Urine ketones measurement 2025-05-10 00:19:07 [facility] Negative (missing) (miss ing) Result panel 5869 Urine occult blood detection 2025-05-10 00:19:07 [facility] Negative (missing) (miss ing) Result panel 5870 Urine nitrate measurement 2025-05-10 00:19:07 [facility] Negative (missing) (miss ing) Result panel 5871 Urine bilirubin measurement 2025-05-10 00:19:07 [facility] Negative (missing) (miss ing) Result panel 5872 Urine urobilinogen detection 2025-05-10 00:19:07 [facility] 0.2 E.U./dL (miss ing) Result panel 5873 Urine leukocyte esterase detection 2025-05-10 00:19:07 [facility] Negative (missing) (missing) Result panel 5874 Microscopic analysis of urine for red blood cells (RBC) 2025-05-10 00:19:07 [facility] None seen (missing) (missing) Result panel 5875 Microscopic analysis of urine for white blood cells (WBC) 2025-05-10 00:19:07 [facility] None seen (missing) (missing) Result panel 5876 Urine squamous epithelial cell detection 2025-05-10 00:19:07 [facility] 0-1 /hpf (missing) (miss ing) Result panel 5877 Urine color determination 2025-05-10 00:19:07 [facility] Yellow (missing) (mis sing) Result panel 5878 Urine appearance 2025-05-10 00:19:07 [facility] Clear (missing) (missing) Result panel 5879 Urine pH measurement 2025-05-10 00:19:07 [facility] 5.5 (missing) (missing) Result panel 5880 Urine specific gravity measurement 2025-05-10 00:19:07 [facility] 1.015 (missing) (miss ing) Result panel 5881 Urine protein measurement 2025-05-10 00:19:07 [facility] Negative (missing) (miss ing) Result panel 5882 Urine glucose measurement 2025-05-10 00:19:07 [facility] 3+ g/dL (missing) (miss ing) Result panel 5883 Urine ketones measurement 2025-05-10 00:19:07 [facility] Negative (missing) (miss ing) Result panel 5884 Urine occult blood detection 2025-05-10 00:19:07 [facility] Negative (missing) (miss ing) Result panel 5885 Urine nitrate measurement 2025-05-10 00:19:07 [facility] Negative (missing) (miss ing) Result panel 5886 Urine bilirubin measurement 2025-05-10 00:19:07 [facility] Negative (missing) (miss ing) Result panel 5887 Urine urobilinogen detection 2025-05-10 00:19:07 [facility] 0.2 E.U./dL (miss ing) Result panel 5888 Urine leukocyte esterase detection 2025-05-10 00:19:07 [facility] Negative (missing) (missing) Result panel 5889 Microscopic analysis of urine for red blood cells (RBC) 2025-05-10 00:19:07 [facility] None seen (missing) (missing) Result panel 5890 Microscopic analysis of urine for white blood cells (WBC) 2025-05-10 00:19:07 [facility] None seen (missing) (missing) Result panel 5891 Urine squamous epithelial cell detection 2025-05-10 00:19:07 [facility] 0-1 /hpf (missing) (miss ing) Result panel 5892 Urobilinogen Urine UA 2025-05-10 01:01 [facility] 0.2 e.u./dl (missing ) Specific [place] Urine UA 2025-05-10 01:01 [facility] 1.015 (missing) (missing ) Glucose Urine UA 2025-05-10 01:01 [facility] 3 g/dl (missing) pH Urine UA 2025-05-10 01:01 [facility] 5.5 (miss ing) (missing) Appearance Urine UA 2025-05-10 01:01 [facility] CLEAR (missing) (missing) Bilirubin Urine UA 2025-05-10 01:01 [facility] NEGATIVE (missing) (missing) Ketones Urine UA 2025-05-10 01:01 [facility] NEGATIVE (missing) (missing) Leukocyte Esterase Urine UA 2025-05-10 01:01 [facility] NEGATIVE (missing) (missing ) Nitrite Urine UA 2025-05-10 01:01 [facility] NEGATIVE (missing) (missing) Occult Blood Urine UA 2025-05-10 01:01 [facility] NEGATIVE (missing) (missing ) Protein Urine UA 2025-05-10 01:01 [facility] NEGATIVE (missing) (missing) Color Urine UA 2025-05-10 01:01 [facility] YELLOW (m issing) Urine Source: Urine, Random Culture if Indicated? Y Result panel 5893 Squamous Epithelial Cell Urine 2025-05-10 01:04 [facility] 0-1 /HPF (missing) (missing) Urobilinogen Urine UA 2025-05-10 01:04 [facility] 0.2 e.u./dl (missing) Specific [place] Urine UA 2025-05-10 01:04 [facility] 1.015 (missing) (missing) Urine Volume 2025-05-10 01:04 [facility] 10mL (spun) (missing) (missing) Glucose Urine UA 2025-05-10 01:04 [facility] 3 g/dl (missing) pH Urine UA 2025-05-10 01:04 [facility] 5.5 (missing) (missing) Appearance Urine UA 2025-05-10 01:04 [facility] CLEAR (missing) (missing) Culture Indicated Urine 2025-05-10 01:04 [facility] Cult Not Indicated (missing) (missing) Bilirubin Urine UA 2025-05-10 01:04 [facility] NEGATIVE (missing) (missing) Ketones Urine UA 2025-05-10 01:04 [facility] NEGATIVE (missing) (missing) Leukocyte Esterase Urine UA 2025-05-10 01:04 [facility] NEGATIVE (missing) (missing) Nitrite Urine UA 2025-05-10 01:04 [facility] NEGATIVE (missing) (missing) Occult Blood Urine UA 2025-05-10 01:04 [facility] NEGATIVE (missing) (missing) Protein Urine UA 2025-05-10 01:04 [facility] NEGATIVE (missing) (missing) Bacteria Urine 2025-05-10 01:04 [facility] None Seen (missing) (missing) RBC Urine 2025-05-10 01:04 [facility] None Seen (missing) (missing) WBC Urine 2025-05-10 01:04 [facility] None Seen (missing) (missing) Color Urine UA 2025-05-10 01:04 [facility] YELLOW (missing) Urine Source: Urine, Random Culture if Indicated? Y Result panel 5894 Lactate (Lactic Acid) 2025-05-10 02:51 [facility] 3.9 mmol/l Yes/No query for Sepsis Lactate Rule Y Result panel 5895 Blood culture 2025-05-10 03:12:07 [facility] NO G ROWTH AFTER 5 DAYS (missing) (missing) Result panel 5896 Blood culture 2025-05-10 03:12:07 [facility] NO G ROWTH AFTER 5 DAYS (missing) (missing) Result panel 5897 Blood culture 2025-05-10 03:12:07 [facility] NO G ROWTH AFTER 5 DAYS (missing) (missing) Result panel 5898 Blood culture 2025-05-10 03:12:07 [facility] NO G ROWTH AFTER 5 DAYS (missing) (missing) Result panel 5899 Blood culture 2025-05-10 03:12:07 [facility] NO G ROWTH AFTER 5 DAYS (missing) (missing) Result panel 5900 Blood culture 2025-05-10 03:12:07 [facility] NO G ROWTH AFTER 5 DAYS (missing) (missing) Result panel 5901 Blood culture 2025-05-10 03:12:07 [facility] NO G ROWTH AFTER 5 DAYS (missing) (missing) Result panel 5902 Sodium [Moles/volume] in Serum or Plasma 2025-05-10 03:12:07 [facility] 132 mmol/L ( issing) Result panel 5903 Potassium [Moles/volume] in Serum or Plasma 2025-05-10 03:12:07 [facility] 5.1 mmol/L ( issing) Result panel 5904 Chloride [Moles/volume] in Serum or Plasma 2025-05-10 03:12:07 [facility] 99 mmol/L ( issing) Result panel 5905 Carbon dioxide, total [Moles/volume] in Serum or Plasma 2025-05-10 03:12:07 [facility] 19 mmol/L (miss ing) Result panel 5906 Urea nitrogen [Mass/volume] in Serum or Plasma 2025-05-10 03:12:07 [facility] 28 mg/dL ([facility]) Result panel 5907 Creatinine [Mass/volume] in Serum or Plasma 2025-05-10 03:12:07 [facility] 1.05 mg/dL ([facility]) Result panel 5908 Glomerular filtration rate (GFR) estimation 2025-05-10 03:12:07 [facility] 55 mL/min ( missing) Result panel 5909 BUN/creatinine ratio 2025-05-10 03:12:07 [facility] 26. 7 (missing) (missing) Result panel 5910 Glucose [Mass/volume] in Serum or Plasma 2025-05-10 03:12:07 [facility] 399 mg/dL ([facility]) Result panel 5911 Calcium [Mass/volume] in Serum or Plasma 2025-05-10 03:12:07 [facility] 9.0 mg/dL ([facility]) Result panel 5912 Blood culture 2025-05-10 03:12:08 [facility] NO G ROWTH AFTER 5 DAYS (missing) (missing) Result panel 5913 Blood culture 2025-05-10 03:12:08 [facility] NO G ROWTH AFTER 5 DAYS (missing) (missing) Result panel 5914 Blood culture 2025-05-10 03:19:07 [facility] NO G ROWTH AFTER 5 DAYS (missing) (missing) Result panel 5915 Blood culture 2025-05-10 03:19:07 [facility] NO G ROWTH AFTER 5 DAYS (missing) (missing) Result panel 5916 Blood culture 2025-05-10 03:19:07 [facility] NO G ROWTH AFTER 5 DAYS (missing) (missing) Result panel 5917 Blood culture 2025-05-10 03:19:07 [facility] NO G ROWTH AFTER 5 DAYS (missing) (missing) Result panel 5918 Blood culture 2025-05-10 03:19:07 [facility] NO G ROWTH AFTER 5 DAYS (missing) (missing) Result panel 5919 Blood culture 2025-05-10 03:19:07 [facility] NO G ROWTH AFTER 5 DAYS (missing) (missing) Result panel 5920 Blood culture 2025-05-10 03:19:07 [facility] NO G ROWTH AFTER 5 DAYS (missing) (missing) Result panel 5921 Blood culture 2025-05-10 03:19:08 [facility] NO G ROWTH AFTER 5 DAYS (missing) (missing) Result panel 5922 Blood culture 2025-05-10 03:19:08 [facility] NO G ROWTH AFTER 5 DAYS (missing) (missing) Result panel 5923 Creatinine 2025-05-10 03:40 [facility] 1.05 mg/dl (missing) Sodium 2025-05-10 03:40 [facility] 132 mmol/l (missing) Carbon Dioxide 2025-05-10 03:40 [facility] 19 mm ol/l (missing) BUN Creatinine Ratio 2025-05-10 03:40 [facility] 26.7 (missing) (missing ) Blood Urea Nitrogen 2025-05-10 03:40 [facility] 28 mg/dl (missing) Glucose 2025-05-10 03:40 [facility] 399 mg/dl (missing) Potassium 2025-05-10 03:40 [facility] 5.1 mmol/l (missing) Estimated Glomerular Filt Rate 2025-05-10 03:40 [facility] 55 ml/min Reported eGFR is based the CKD-EPI 2020 equation that does not use a race coefficient. An eGFR below 60 mL/min/1.73m2 suggests that some kidney damage has occurred, and indicative of chronic kidney disease if persisting greater than 3 months. An eGFR less than 15 is indicative of kidney failure. Calcium 2025-05-10 03:40 [facility] 9.0 mg/dl (missing) Chloride 2025-05-10 03:40 [facility] 99 mmol/l (missing) Result panel 5924 Lactate [Mass/volume] in Serum or Plasma 2025-05-10 04:00:07 [facility] 3.9 mmol/L (m issing) Result panel 5925 Lactate 2HR (Lactic Acid Rflx) 2025-05-10 04:24 [facility] [place] 3.9 mmol/l (missing) Result panel 5926 POC Glucose 2025-05-10 05:25 [facility] 450 mg/dl (missing) Result panel 5927 POC Glucose 2025-05-10 06:51 [facility] 400 mg/dl (missing) Result panel 5928 POC Glucose 2025-05-10 07:51 [facility] 399 mg/dl (missing) Result panel 5929 Eosinophils Absolute Auto 2025-05-10 09:12 [facility] 0 /ul (missing) Eosinophils Percent Auto 2025-05-10 09:12 [facility] 0. 0 % (missing) Basophils Percent Auto 2025-05-10 09:12 [facility] 0.4 % (missing) Monocytes Percent Auto 2025-05-10 09:12 [facility] 0.4 % (missing) Basophils Absolute Auto 2025-05-10 09:12 [facility] 100 /ul (missing) Monocytes Absolute Auto 2025-05-10 09:12 [facility] 100 /ul (missing) Hemoglobin 2025-05-10 09:12 [facility] 13.0 g/dl (missing) Lymphocytes Absolute Auto 2025-05-10 09:12 [facility] 1 300 /ul (missing) Red Cell Distribution Width 2025-05-10 09:12 [facility] 14.0 % (missing) Neutrophils Absolute Auto 2025-05-10 09:12 [facility] 1 4000 /ul (missing) White Blood Cell Count 2025-05-10 09:12 [facility] 15.4 x10 3/ul (missing) Platelet Count 2025-05-10 09:12 [facility] 237 x1 0 3/ul (missing) Mean Corpuscular Hemoglobin 2025-05-10 09:12 [facility] 29.9 pg (missing) Mean Corpuscular HGB Conc 2025-05-10 09:12 [facility] 3 3.0 % (missing) Hematocrit 2025-05-10 09:12 [facility] 39.3 % (missing) Red Blood Cell Count 2025-05-10 09:12 [facility] 4.33 x10 6/ul (missing) Lymphocytes Percent Auto 2025-05-10 09:12 [facility] 8. 3 % (missing) Mean Corpuscular Volume 2025-05-10 09:12 [facility] 90. 6 fl (missing) Neutrophils Percent Auto 2025-05-10 09:12 [facility] 90 .9 % (missing) Result panel 5930 Lactate (Lactic Acid) 2025-05-10 09:25 [facility] 4.0 mmol/l Yes/No query for Sepsis Lactate Rule Y Result panel 5931 CAT scan report 2025-05-10 09:52 [facility] (missing) ( missing) (missing) Result panel 5932 CAT scan report 2025-05-10 09:59 [facility] (missing) ( missing) (missing) Result panel 5933 Adenovirus DNA [Presence] in Nasopharynx by TAM[facility] with non-probe detection 2025-05-10 10:05:08 [facility] Not detected (missing) (missing) Result panel 5934 SARS-CoV-2 (COVID-19) RNA [Presence] in Nasopharynx by [facility] with non-probe detection 2025-05-10 10:05:08 [facility] Not detected (missing) (missing) Result panel 5935 Human coronavirus 229E RNA [Presence] in Nasopharynx by [facility] with non-probe detection 2025-05-10 10:05:08 [facility] Not detected (missing) (missing) Result panel 5936 Human coronavirus HKU1 RNA [Presence] in Nasopharynx by [facility] with non-probe detection 2025-05-10 10:05:08 [facility] Not detected (missing) (missing) Result panel 5937 Human coronavirus NL63 RNA [Presence] in Nasopharynx by [facility] with non-probe detection 2025-05-10 10:05:08 [facility] Not detected (missing) (missing) Result panel 5938 Human coronavirus OC43 RNA [Presence] in Nasopharynx by [facility] with non-probe detection 2025-05-10 10:05:08 [facility] Not detected (missing) (missing) Result panel 5939 Human metapneumovirus RNA [Presence] in Nasopharynx by [facility] with non-probe detection 2025-05-10 10:05:08 [facility] Not detected (missing) (missing) Result panel 5940 Rhinovirus+Enterovirus RNA [Presence] in Nasopharynx by [facility] with non-probe detection 2025-05-10 10:05:08 [facility] Not detected (missing) (missing) Result panel 5941 Influenza virus A RNA [Presence] in Nasopharynx by [facility] with non-probe detection 2025-05-10 10:05:08 [facility] Not detected (missing) (missing) Result panel 5942 Influenza virus B RNA [Presence] in Nasopharynx by [facility] with non-probe detection 2025-05-10 10:05:08 [facility] Not detected (missing) (missing) Result panel 5943 Parainfluenza virus 1 RNA [Presence] in Nasopharynx by [facility] with non-probe detection 2025-05-10 10:05:08 [facility] Not detected (missing) (missing) Result panel 5944 Parainfluenza virus 2 RNA [Presence] in Nasopharynx by [facility] with non-probe detection 2025-05-10 10:05:08 [facility] Not detected (missing) (missing) Result panel 5945 Parainfluenza virus 3 RNA [Presence] in Nasopharynx by [facility]AM[facility] with non-probe detection 2025-05-10 10:05:08 [facility] Not detected (missing) (missing) Result panel 5946 Parainfluenza virus 4 RNA [Presence] in Nasopharynx by [facility] with non-probe detection 2025-05-10 10:05:08 [facility] Not detected (missing) (missing) Result panel 5947 Respiratory syncytial virus RNA [Presence] in Nasopharynx by [facility] with non-probe detec 2025-05-10 10:05:08 [facility] Not detected (missing) (missing) Result panel 5948 Bordetella pertussis.pertussis toxin promoter region [Presence] in Nasopharynx by [facility] 2025-05-10 10:05:08 [facility] Not detected (missing) (missing) Result panel 5949 Chlamydophila pneumoniae DNA [Presence] in Nasopharynx by [facility] with non-probe detectio 2025-05-10 10:05:08 [facility] Not detected (missing) (missing) Result panel 5950 Mycoplasma pneumoniae DNA [Presence] in Nasopharynx by [facility] with non-probe detection 2025-05-10 10:05:08 [facility] Not detected (missing) (missing) Result panel 5951 Adenovirus DNA [Presence] in Nasopharynx by [facility] with non-probe detection 2025-05-10 10:05:08 [facility] Not detected (missing) (missing) Result panel 5952 SARS-CoV-2 (COVID-19) RNA [Presence] in Nasopharynx by [facility] with non-probe detection 2025-05-10 10:05:08 [facility] Not detected (missing) (missing) Result panel 5953 Human coronavirus 229E RNA [Presence] in Nasopharynx by [facility] with non-probe detection 2025-05-10 10:05:08 [facility] Not detected (missing) (missing) Result panel 5954 Human coronavirus HKU1 RNA [Presence] in Nasopharynx by [facility] with non-probe detection 2025-05-10 10:05:08 [facility] Not detected (missing) (missing) Result panel 5955 Human coronavirus NL63 RNA [Presence] in Nasopharynx by [facility] with non-probe detection 2025-05-10 10:05:08 [facility] Not detected (missing) (missing) Result panel 5956 Human coronavirus OC43 RNA [Presence] in Nasopharynx by [facility]AMMI with non-probe detection 2025-05-10 10:05:08 [facility] Not detected (missing) (missing) Result panel 5957 Human metapneumovirus RNA [Presence] in Nasopharynx by [facility] with non-probe detection 2025-05-10 10:05:08 [facility] Not detected (missing) (missing) Result panel 5958 Rhinovirus+Enterovirus RNA [Presence] in Nasopharynx by [facility] with non-probe detection 2025-05-10 10:05:08 [facility] Not detected (missing) (missing) Result panel 5959 Influenza virus A RNA [Presence] in Nasopharynx by [facility] with non-probe detection 2025-05-10 10:05:08 [facility] Not detected (missing) (missing) Result panel 5960 Influenza virus B RNA [Presence] in Nasopharynx by [facility] with non-probe detection 2025-05-10 10:05:08 [facility] Not detected (missing) (missing) Result panel 5961 Parainfluenza virus 1 RNA [Presence] in Nasopharynx by [facility] with non-probe detection 2025-05-10 10:05:08 [facility] Not detected (missing) (missing) Result panel 5962 Parainfluenza virus 2 RNA [Presence] in Nasopharynx by [facility] with non-probe detection 2025-05-10 10:05:08 [facility] Not detected (missing) (missing) Result panel 5963 Parainfluenza virus 3 RNA [Presence] in Nasopharynx by [facility] with non-probe detection 2025-05-10 10:05:08 [facility] Not detected (missing) (missing) Result panel 5964 Parainfluenza virus 4 RNA [Presence] in Nasopharynx by [facility] with non-probe detection 2025-05-10 10:05:08 [facility] Not detected (missing) (missing) Result panel 5965 Respiratory syncytial virus RNA [Presence] in Nasopharynx by [facility] with non-probe detec 2025-05-10 10:05:08 [facility] Not detected (missing) (missing) Result panel 5966 Bordetella pertussis.pertussis toxin promoter region [Presence] in Nasopharynx by TAMMI 2025-05-10 10:05:08 [facility] Not detected (missing) (missing) Result panel 5967 Chlamydophila pneumoniae DNA [Presence] in Nasopharynx by [facility] with non-probe detectio 2025-05-10 10:05:08 [facility] Not detected (missing) (missing) Result panel 5968 Mycoplasma pneumoniae DNA [Presence] in Nasopharynx by TAMMI with non-probe detection 2025-05-10 10:05:08 [facility] Not detected (missing) (missing) Result panel 5969 Adenovirus DNA [Presence] in Nasopharynx by TAMMI with non-probe detection 2025-05-10 11:05:07 [facility] Not detected (missing) (missing) Result panel 5970 SARS-CoV-2 (COVID-19) RNA [Presence] in Nasopharynx by TAMMI with non-probe detection 2025-05-10 11:05:07 [facility] Not detected (missing) (missing) Result panel 5971 Human coronavirus 229E RNA [Presence] in Nasopharynx by TAMMI with non-probe detection 2025-05-10 11:05:07 [facility] Not detected (missing) (missing) Result panel 5972 Human coronavirus HKU1 RNA [Presence] in Nasopharynx by TAMMI with non-probe detection 2025-05-10 11:05:07 [facility] Not detected (missing) (missing) Result panel 5973 Human coronavirus NL63 RNA [Presence] in Nasopharynx by TAMMI with non-probe detection 2025-05-10 11:05:07 [facility] Not detected (missing) (missing) Result panel 5974 Human coronavirus OC43 RNA [Presence] in Nasopharynx by TAMMI with non-probe detection 2025-05-10 11:05:07 [facility] Not detected (missing) (missing) Result panel 5975 Human metapneumovirus RNA [Presence] in Nasopharynx by TAMMI with non-probe detection 2025-05-10 11:05:07 [facility] Not detected (missing) (missing) Result panel 5976 Rhinovirus+Enterovirus RNA [Presence] in Nasopharynx by TAMMI with non-probe detection 2025-05-10 11:05:07 [facility] Not detected (missing) (missing) Result panel 5977 Influenza virus A RNA [Presence] in Nasopharynx by TAMMI with non-probe detection 2025-05-10 11:05:07 [facility] Not detected (missing) (missing) Result panel 5978 Influenza virus B RNA [Presence] in Nasopharynx by TAMMI with non-probe detection 2025-05-10 11:05:07 [facility] Not detected (missing) (missing) Result panel 5979 Parainfluenza virus 1 RNA [Presence] in Nasopharynx by TAMMI with non-probe detection 2025-05-10 11:05:07 [facility] Not detected (missing) (missing) Result panel 5980 Parainfluenza virus 2 RNA [Presence] in Nasopharynx by TAMMI with non-probe detection 2025-05-10 11:05:07 [facility] Not detected (missing) (missing) Result panel 5981 Parainfluenza virus 3 RNA [Presence] in Nasopharynx by TAMMI with non-probe detection 2025-05-10 11:05:07 [facility] Not detected (missing) (missing) Result panel 5982 Parainfluenza virus 4 RNA [Presence] in Nasopharynx by TAMMI with non-probe detection 2025-05-10 11:05:07 [facility] Not detected (missing) (missing) Result panel 5983 Respiratory syncytial virus RNA [Presence] in Nasopharynx by TAMMI with non-probe detec 2025-05-10 11:05:07 [facility] Not detected (missing) (missing) Result panel 5984 Bordetella pertussis.pertussis toxin promoter region [Presence] in Nasopharynx by TAMMI 2025-05-10 11:05:07 [facility] Not detected (missing) (missing) Result panel 5985 Chlamydophila pneumoniae DNA [Presence] in Nasopharynx by TAMMI with non-probe detectio 2025-05-10 11:05:07 [facility] Not detected (missing) (missing) Result panel 5986 Mycoplasma pneumoniae DNA [Presence] in Nasopharynx by TAMMI with non-probe detection 2025-05-10 11:05:07 [facility] Not detected (missing) (missing) Result panel 5987 Adenovirus DNA [Presence] in Nasopharynx by TAMMI with non-probe detection 2025-05-10 11:05:07 [facility] Not detected (missing) (missing) Result panel 5988 SARS-CoV-2 (COVID-19) RNA [Presence] in Nasopharynx by TAMIM with non-probe detection 2025-05-10 11:05:07 [facility] Not detected (missing) (missing) Result panel 5989 Human coronavirus 229E RNA [Presence] in Nasopharynx by TAMMI with non-probe detection 2025-05-10 11:05:07 [facility] Not detected (missing) (missing) Result panel 5990 Human coronavirus HKU1 RNA [Presence] in Nasopharynx by TAMMI with non-probe detection 2025-05-10 11:05:07 [facility] Not detected (missing) (missing) Result panel 5991 Human coronavirus NL63 RNA [Presence] in Nasopharynx by TAMMI with non-probe detection 2025-05-10 11:05:07 [facility] Not detected (missing) (missing) Result panel 5992 Human coronavirus OC43 RNA [Presence] in Nasopharynx by TAMMI with non-probe detection 2025-05-10 11:05:07 [facility] Not detected (missing) (missing) Result panel 5993 Human metapneumovirus RNA [Presence] in Nasopharynx by TAMMI with non-probe detection 2025-05-10 11:05:07 [facility] Not detected (missing) (missing) Result panel 5994 Adenovirus DNA [Presence] in Nasopharynx by TAMMI with non-probe detection 2025-05-10 11:05:07 [facility] Not detected (missing) (missing) Result panel 5995 SARS-CoV-2 (COVID-19) RNA [Presence] in Nasopharynx by TAMMI with non-probe detection 2025-05-10 11:05:07 [facility] Not detected (missing) (missing) Result panel 5996 Human coronavirus 229E RNA [Presence] in Nasopharynx by TAMMI with non-probe detection 2025-05-10 11:05:07 [facility] Not detected (missing) (missing) Result panel 5997 Human coronavirus HKU1 RNA [Presence] in Nasopharynx by TAMMI with non-probe detection 2025-05-10 11:05:07 [facility] Not detected (missing) (missing) Result panel 5998 Human coronavirus NL63 RNA [Presence] in Nasopharynx by TAMMI with non-probe detection 2025-05-10 11:05:07 [facility] Not detected (missing) (missing) Result panel 5999 Human coronavirus OC43 RNA [Presence] in Nasopharynx by TAMMI with non-probe detection 2025-05-10 11:05:07 [facility] Not detected (missing) (missing) Result panel 6000 Rhinovirus+Enterovirus RNA [Presence] in Nasopharynx by TAMMI with non-probe detection 2025-05-10 11:05:07 [facility] Not detected (missing) (missing) Result panel 6001 Human metapneumovirus RNA [Presence] in Nasopharynx by TAMMI with non-probe detection 2025-05-10 11:05:07 [facility] Not detected (missing) (missing) Result panel 6002 Rhinovirus+Enterovirus RNA [Presence] in Nasopharynx by TAMMI with non-probe detection 2025-05-10 11:05:07 [facility] Not detected (missing) (missing) Result panel 6003 Influenza virus A RNA [Presence] in Nasopharynx by TAMMI with non-probe detection 2025-05-10 11:05:07 [facility] Not detected (missing) (missing) Result panel 6004 Influenza virus B RNA [Presence] in Nasopharynx by TAMMI with non-probe detection 2025-05-10 11:05:07 [facility] Not detected (missing) (missing) Result panel 6005 Parainfluenza virus 1 RNA [Presence] in Nasopharynx by TAMMI with non-probe detection 2025-05-10 11:05:07 [facility] Not detected (missing) (missing) Result panel 6006 Parainfluenza virus 2 RNA [Presence] in Nasopharynx by TAMMI with non-probe detection 2025-05-10 11:05:07 [facility] Not detected (missing) (missing) Result panel 6007 Parainfluenza virus 3 RNA [Presence] in Nasopharynx by TAMMI with non-probe detection 2025-05-10 11:05:07 [facility] Not detected (missing) (missing) Result panel 6008 Parainfluenza virus 4 RNA [Presence] in Nasopharynx by TAMMI with non-probe detection 2025-05-10 11:05:07 [facility] Not detected (missing) (missing) Result panel 6009 Respiratory syncytial virus RNA [Presence] in Nasopharynx by TAMMI with non-probe detec 2025-05-10 11:05:07 [facility] Not detected (missing) (missing) Result panel 6010 Bordetella pertussis.pertussis toxin promoter region [Presence] in Nasopharynx by TAMMI 2025-05-10 11:05:07 [facility] Not detected (missing) (missing) Result panel 6011 Influenza virus A RNA [Presence] in Nasopharynx by TAMMI with non-probe detection 2025-05-10 11:05:07 [facility] Not detected (missing) (missing) Result panel 6012 Chlamydophila pneumoniae DNA [Presence] in Nasopharynx by TAMMI with non-probe detectio 2025-05-10 11:05:07 [facility] Not detected (missing) (missing) Result panel 6013 Mycoplasma pneumoniae DNA [Presence] in Nasopharynx by TAMMI with non-probe detection 2025-05-10 11:05:07 [facility] Not detected (missing) (missing) Result panel 6014 Influenza virus B RNA [Presence] in Nasopharynx by TAMMI with non-probe detection 2025-05-10 11:05:07 [facility] Not detected (missing) (missing) Result panel 6015 Parainfluenza virus 1 RNA [Presence] in Nasopharynx by TAMMI with non-probe detection 2025-05-10 11:05:07 [facility] Not detected (missing) (missing) Result panel 6016 Parainfluenza virus 2 RNA [Presence] in Nasopharynx by TAMMI with non-probe detection 2025-05-10 11:05:07 [facility] Not detected (missing) (missing) Result panel 6017 Parainfluenza virus 3 RNA [Presence] in Nasopharynx by TAMMI with non-probe detection 2025-05-10 11:05:07 [facility] Not detected (missing) (missing) Result panel 6018 Parainfluenza virus 4 RNA [Presence] in Nasopharynx by TAMMI with non-probe detection 2025-05-10 11:05:07 [facility] Not detected (missing) (missing) Result panel 6019 Respiratory syncytial virus RNA [Presence] in Nasopharynx by TAMMI with non-probe detec 2025-05-10 11:05:07 [facility] Not detected (missing) (missing) Result panel 6020 Bordetella pertussis.pertussis toxin promoter region [Presence] in Nasopharynx by TAMMI 2025-05-10 11:05:07 [facility] Not detected (missing) (missing) Result panel 6021 Chlamydophila pneumoniae DNA [Presence] in Nasopharynx by TAMMI with non-probe detectio 2025-05-10 11:05:07 [facility] Not detected (missing) (missing) Result panel 6022 Mycoplasma pneumoniae DNA [Presence] in Nasopharynx by TAMMI with non-probe detection 2025-05-10 11:05:07 [facility] Not detected (missing) (missing) Result panel 6023 Adenovirus DNA [Presence] in Nasopharynx by TAMMI with non-probe detection 2025-05-10 11:05:07 [facility] Not detected (missing) (missing) Result panel 6024 SARS-CoV-2 (COVID-19) RNA [Presence] in Nasopharynx by TAMMI with non-probe detection 2025-05-10 11:05:07 [facility] Not detected (missing) (missing) Result panel 6025 Human coronavirus 229E RNA [Presence] in Nasopharynx by TAMMI with non-probe detection 2025-05-10 11:05:07 [facility] Not detected (missing) (missing) Result panel 6026 Human coronavirus HKU1 RNA [Presence] in Nasopharynx by TAMMI with non-probe detection 2025-05-10 11:05:07 [facility] Not detected (missing) (missing) Result panel 6027 Human coronavirus NL63 RNA [Presence] in Nasopharynx by TAMMI with non-probe detection 2025-05-10 11:05:07 [facility] Not detected (missing) (missing) Result panel 6028 Human coronavirus OC43 RNA [Presence] in Nasopharynx by TAMMI with non-probe detection 2025-05-10 11:05:07 [facility] Not detected (missing) (missing) Result panel 6029 Human metapneumovirus RNA [Presence] in Nasopharynx by TAMMI with non-probe detection 2025-05-10 11:05:07 [facility] Not detected (missing) (missing) Result panel 6030 Rhinovirus+Enterovirus RNA [Presence] in Nasopharynx by TAMMI with non-probe detection 2025-05-10 11:05:07 [facility] Not detected (missing) (missing) Result panel 6031 Influenza virus A RNA [Presence] in Nasopharynx by TAMMI with non-probe detection 2025-05-10 11:05:07 [facility] Not detected (missing) (missing) Result panel 6032 Influenza virus B RNA [Presence] in Nasopharynx by TAMMI with non-probe detection 2025-05-10 11:05:07 [facility] Not detected (missing) (missing) Result panel 6033 Parainfluenza virus 1 RNA [Presence] in Nasopharynx by TAMMI with non-probe detection 2025-05-10 11:05:07 [facility] Not detected (missing) (missing) Result panel 6034 Parainfluenza virus 2 RNA [Presence] in Nasopharynx by TAMMI with non-probe detection 2025-05-10 11:05:07 [facility] Not detected (missing) (missing) Result panel 6035 Parainfluenza virus 3 RNA [Presence] in Nasopharynx by TAMMI with non-probe detection 2025-05-10 11:05:07 [facility] Not detected (missing) (missing) Result panel 6036 Parainfluenza virus 4 RNA [Presence] in Nasopharynx by TAMMI with non-probe detection 2025-05-10 11:05:07 [facility] Not detected (missing) (missing) Result panel 6037 Respiratory syncytial virus RNA [Presence] in Nasopharynx by TAMMI with non-probe detec 2025-05-10 11:05:07 [facility] Not detected (missing) (missing) Result panel 6038 Bordetella pertussis.pertussis toxin promoter region [Presence] in Nasopharynx by TAMMI 2025-05-10 11:05:07 [facility] Not detected (missing) (missing) Result panel 6039 Chlamydophila pneumoniae DNA [Presence] in Nasopharynx by TAMMI with non-probe detectio 2025-05-10 11:05:07 [facility] Not detected (missing) (missing) Result panel 6040 Mycoplasma pneumoniae DNA [Presence] in Nasopharynx by TAMMI with non-probe detection 2025-05-10 11:05:07 [facility] Not detected (missing) (missing) Result panel 6041 Adenovirus DNA [Presence] in Nasopharynx by TAMMI with non-probe detection 2025-05-10 11:05:07 [facility] Not detected (missing) (missing) Result panel 6042 SARS-CoV-2 (COVID-19) RNA [Presence] in Nasopharynx by TAMMI with non-probe detection 2025-05-10 11:05:07 [facility] Not detected (missing) (missing) Result panel 6043 Human coronavirus 229E RNA [Presence] in Nasopharynx by TAMMI with non-probe detection 2025-05-10 11:05:07 [facility] Not detected (missing) (missing) Result panel 6044 Human coronavirus HKU1 RNA [Presence] in Nasopharynx by TAMMI with non-probe detection 2025-05-10 11:05:07 [facility] Not detected (missing) (missing) Result panel 6045 Human coronavirus NL63 RNA [Presence] in Nasopharynx by TAMMI with non-probe detection 2025-05-10 11:05:07 [facility] Not detected (missing) (missing) Result panel 6046 Human coronavirus OC43 RNA [Presence] in Nasopharynx by TAMMI with non-probe detection 2025-05-10 11:05:07 [facility] Not detected (missing) (missing) Result panel 6047 Human metapneumovirus RNA [Presence] in Nasopharynx by TAMMI with non-probe detection 2025-05-10 11:05:07 [facility] Not detected (missing) (missing) Result panel 6048 Rhinovirus+Enterovirus RNA [Presence] in Nasopharynx by TAMMI with non-probe detection 2025-05-10 11:05:07 [facility] Not detected (missing) (missing) Result panel 6049 Influenza virus A RNA [Presence] in Nasopharynx by TAMMI with non-probe detection 2025-05-10 11:05:07 [facility] Not detected (missing) (missing) Result panel 6050 Influenza virus B RNA [Presence] in Nasopharynx by TAMMI with non-probe detection 2025-05-10 11:05:07 [facility] Not detected (missing) (missing) Result panel 6051 Parainfluenza virus 1 RNA [Presence] in Nasopharynx by TAMMI with non-probe detection 2025-05-10 11:05:07 [facility] Not detected (missing) (missing) Result panel 6052 Parainfluenza virus 2 RNA [Presence] in Nasopharynx by TAMMI with non-probe detection 2025-05-10 11:05:07 [facility] Not detected (missing) (missing) Result panel 6053 Parainfluenza virus 3 RNA [Presence] in Nasopharynx by TAMMI with non-probe detection 2025-05-10 11:05:07 [facility] Not detected (missing) (missing) Result panel 6054 Parainfluenza virus 4 RNA [Presence] in Nasopharynx by TAMMI with non-probe detection 2025-05-10 11:05:07 [facility] Not detected (missing) (missing) Result panel 6055 Respiratory syncytial virus RNA [Presence] in Nasopharynx by TAMMI with non-probe detec 2025-05-10 11:05:07 [facility] Not detected (missing) (missing) Result panel 6056 Bordetella pertussis.pertussis toxin promoter region [Presence] in Nasopharynx by TAMMI 2025-05-10 11:05:07 [facility] Not detected (missing) (missing) Result panel 6057 Chlamydophila pneumoniae DNA [Presence] in Nasopharynx by TAMMI with non-probe detectio 2025-05-10 11:05:07 [facility] Not detected (missing) (missing) Result panel 6058 Mycoplasma pneumoniae DNA [Presence] in Nasopharynx by TAMMI with non-probe detection 2025-05-10 11:05:07 [facility] Not detected (missing) (missing) Result panel 6059 Adenovirus DNA [Presence] in Nasopharynx by TAMMI with non-probe detection 2025-05-10 11:05:07 [facility] Not detected (missing) (missing) Result panel 6060 SARS-CoV-2 (COVID-19) RNA [Presence] in Nasopharynx by TAMMI with non-probe detection 2025-05-10 11:05:07 [facility] Not detected (missing) (missing) Result panel 6061 Human coronavirus 229E RNA [Presence] in Nasopharynx by TAMMI with non-probe detection 2025-05-10 11:05:07 [facility] Not detected (missing) (missing) Result panel 6062 Human coronavirus HKU1 RNA [Presence] in Nasopharynx by TAMMI with non-probe detection 2025-05-10 11:05:07 [facility] Not detected (missing) (missing) Result panel 6063 Human coronavirus NL63 RNA [Presence] in Nasopharynx by TAMMI with non-probe detection 2025-05-10 11:05:07 [facility] Not detected (missing) (missing) Result panel 6064 Human coronavirus OC43 RNA [Presence] in Nasopharynx by TAMMI with non-probe detection 2025-05-10 11:05:07 [facility] Not detected (missing) (missing) Result panel 6065 Human metapneumovirus RNA [Presence] in Nasopharynx by TAMMI with non-probe detection 2025-05-10 11:05:07 [facility] Not detected (missing) (missing) Result panel 6066 Rhinovirus+Enterovirus RNA [Presence] in Nasopharynx by TAMMI with non-probe detection 2025-05-10 11:05:07 [facility] Not detected (missing) (missing) Result panel 6067 Influenza virus A RNA [Presence] in Nasopharynx by TAMMI with non-probe detection 2025-05-10 11:05:07 [facility] Not detected (missing) (missing) Result panel 6068 Influenza virus B RNA [Presence] in Nasopharynx by TAMMI with non-probe detection 2025-05-10 11:05:07 [facility] Not detected (missing) (missing) Result panel 6069 Parainfluenza virus 1 RNA [Presence] in Nasopharynx by TAMMI with non-probe detection 2025-05-10 11:05:07 [facility] Not detected (missing) (missing) Result panel 6070 Parainfluenza virus 2 RNA [Presence] in Nasopharynx by TAMMI with non-probe detection 2025-05-10 11:05:07 [facility] Not detected (missing) (missing) Result panel 6071 Parainfluenza virus 3 RNA [Presence] in Nasopharynx by TAMMI with non-probe detection 2025-05-10 11:05:07 [facility] Not detected (missing) (missing) Result panel 6072 Parainfluenza virus 4 RNA [Presence] in Nasopharynx by TAMMI with non-probe detection 2025-05-10 11:05:07 [facility] Not detected (missing) (missing) Result panel 6073 Respiratory syncytial virus RNA [Presence] in Nasopharynx by TAMMI with non-probe detec 2025-05-10 11:05:07 [facility] Not detected (missing) (missing) Result panel 6074 Bordetella pertussis.pertussis toxin promoter region [Presence] in Nasopharynx by TAMMI 2025-05-10 11:05:07 [facility] Not detected (missing) (missing) Result panel 6075 Chlamydophila pneumoniae DNA [Presence] in Nasopharynx by TAMMI with non-probe detectio 2025-05-10 11:05:07 [facility] Not detected (missing) (missing) Result panel 6076 Mycoplasma pneumoniae DNA [Presence] in Nasopharynx by TAMMI with non-probe detection 2025-05-10 11:05:07 [facility] Not detected (missing) (missing) Result panel 6077 Adenovirus DNA [Presence] in Nasopharynx by TAMMI with non-probe detection 2025-05-10 11:05:07 [facility] Not detected (missing) (missing) Result panel 6078 SARS-CoV-2 (COVID-19) RNA [Presence] in Nasopharynx by TAMMI with non-probe detection 2025-05-10 11:05:07 [facility] Not detected (missing) (missing) Result panel 6079 Human coronavirus 229E RNA [Presence] in Nasopharynx by TAMMI with non-probe detection 2025-05-10 11:05:07 [facility] Not detected (missing) (missing) Result panel 6080 Human coronavirus HKU1 RNA [Presence] in Nasopharynx by TAMMI with non-probe detection 2025-05-10 11:05:07 [facility] Not detected (missing) (missing) Result panel 6081 Human coronavirus NL63 RNA [Presence] in Nasopharynx by TAMMI with non-probe detection 2025-05-10 11:05:07 [facility] Not detected (missing) (missing) Result panel 6082 Human coronavirus OC43 RNA [Presence] in Nasopharynx by TAMMI with non-probe detection 2025-05-10 11:05:07 [facility] Not detected (missing) (missing) Result panel 6083 Human metapneumovirus RNA [Presence] in Nasopharynx by TAMMI with non-probe detection 2025-05-10 11:05:07 [facility] Not detected (missing) (missing) Result panel 6084 Rhinovirus+Enterovirus RNA [Presence] in Nasopharynx by TAMMI with non-probe detection 2025-05-10 11:05:07 [facility] Not detected (missing) (missing) Result panel 6085 Influenza virus A RNA [Presence] in Nasopharynx by TAMMI with non-probe detection 2025-05-10 11:05:07 [facility] Not detected (missing) (missing) Result panel 6086 Influenza virus B RNA [Presence] in Nasopharynx by TAMMI with non-probe detection 2025-05-10 11:05:07 [facility] Not detected (missing) (missing) Result panel 6087 Parainfluenza virus 1 RNA [Presence] in Nasopharynx by TAMMI with non-probe detection 2025-05-10 11:05:07 [facility] Not detected (missing) (missing) Result panel 6088 Parainfluenza virus 2 RNA [Presence] in Nasopharynx by TAMMI with non-probe detection 2025-05-10 11:05:07 [facility] Not detected (missing) (missing) Result panel 6089 Parainfluenza virus 3 RNA [Presence] in Nasopharynx by TAMMI with non-probe detection 2025-05-10 11:05:07 [facility] Not detected (missing) (missing) Result panel 6090 Parainfluenza virus 4 RNA [Presence] in Nasopharynx by TAMMI with non-probe detection 2025-05-10 11:05:07 [facility] Not detected (missing) (missing) Result panel 6091 Respiratory syncytial virus RNA [Presence] in Nasopharynx by TAMMI with non-probe detec 2025-05-10 11:05:07 [facility] Not detected (missing) (missing) Result panel 6092 Bordetella pertussis.pertussis toxin promoter region [Presence] in Nasopharynx by TAMMI 2025-05-10 11:05:07 [facility] Not detected (missing) (missing) Result panel 6093 Chlamydophila pneumoniae DNA [Presence] in Nasopharynx by TAMMI with non-probe detectio 2025-05-10 11:05:07 [facility] Not detected (missing) (missing) Result panel 6094 Mycoplasma pneumoniae DNA [Presence] in Nasopharynx by TAMMI with non-probe detection 2025-05-10 11:05:07 [facility] Not detected (missing) (missing) Result panel 6095 Adenovirus DNA [Presence] in Nasopharynx by TAMMI with non-probe detection 2025-05-10 11:05:07 [facility] Not detected (missing) (missing) Result panel 6096 SARS-CoV-2 (COVID-19) RNA [Presence] in Nasopharynx by TAMMI with non-probe detection 2025-05-10 11:05:07 [facility] Not detected (missing) (missing) Result panel 6097 Human coronavirus 229E RNA [Presence] in Nasopharynx by TAMMI with non-probe detection 2025-05-10 11:05:07 [facility] Not detected (missing) (missing) Result panel 6098 Human coronavirus HKU1 RNA [Presence] in Nasopharynx by TAMMI with non-probe detection 2025-05-10 11:05:07 [facility] Not detected (missing) (missing) Result panel 6099 Human coronavirus NL63 RNA [Presence] in Nasopharynx by TAMMI with non-probe detection 2025-05-10 11:05:07 [facility] Not detected (missing) (missing) Result panel 6100 Human coronavirus OC43 RNA [Presence] in Nasopharynx by TAMMI with non-probe detection 2025-05-10 11:05:07 [facility] Not detected (missing) (missing) Result panel 6101 Human metapneumovirus RNA [Presence] in Nasopharynx by TAMMI with non-probe detection 2025-05-10 11:05:07 [facility] Not detected (missing) (missing) Result panel 6102 Rhinovirus+Enterovirus RNA [Presence] in Nasopharynx by TAMMI with non-probe detection 2025-05-10 11:05:07 [facility] Not detected (missing) (missing) Result panel 6103 Influenza virus A RNA [Presence] in Nasopharynx by TAMMI with non-probe detection 2025-05-10 11:05:07 [facility] Not detected (missing) (missing) Result panel 6104 Influenza virus B RNA [Presence] in Nasopharynx by TAMMI with non-probe detection 2025-05-10 11:05:07 [facility] Not detected (missing) (missing) Result panel 6105 Parainfluenza virus 1 RNA [Presence] in Nasopharynx by TAMMI with non-probe detection 2025-05-10 11:05:07 [facility] Not detected (missing) (missing) Result panel 6106 Parainfluenza virus 2 RNA [Presence] in Nasopharynx by TAMMI with non-probe detection 2025-05-10 11:05:07 [facility] Not detected (missing) (missing) Result panel 6107 Parainfluenza virus 3 RNA [Presence] in Nasopharynx by TAMMI with non-probe detection 2025-05-10 11:05:07 [facility] Not detected (missing) (missing) Result panel 6108 Parainfluenza virus 4 RNA [Presence] in Nasopharynx by TAMMI with non-probe detection 2025-05-10 11:05:07 [facility] Not detected (missing) (missing) Result panel 6109 Respiratory syncytial virus RNA [Presence] in Nasopharynx by TAMMI with non-probe detec 2025-05-10 11:05:07 [facility] Not detected (missing) (missing) Result panel 6110 Bordetella pertussis.pertussis toxin promoter region [Presence] in Nasopharynx by TAMMI 2025-05-10 11:05:07 [facility] Not detected (missing) (missing) Result panel 6111 Chlamydophila pneumoniae DNA [Presence] in Nasopharynx by TAMMI with non-probe detectio 2025-05-10 11:05:07 [facility] Not detected (missing) (missing) Result panel 6112 Mycoplasma pneumoniae DNA [Presence] in Nasopharynx by TAMMI with non-probe detection 2025-05-10 11:05:07 [facility] Not detected (missing) (missing) Result panel 6113 Lactate 2HR (Lactic Acid Rflx) 2025-05-10 11:39 [facility] [place] 4.1 mmol/l (missing) Result panel 6114 POC Glucose 2025-05-10 11:59 [facility] 365 mg/dl (missing) Lactate 2HR (Lactic Acid Rflx) 2025-05-10 11:59 [facility] 4.1 mmol/l CRITICAL RESULT CALLED PERSON OR PLACE CONTACTED: LORENA CHAMPION WAS THE RESULT READ-BACK? YES DATE: 05/10/25 TIME: 1158 --- 05/10/25 1158 --- LACTATE 2HR RPT previously reported as: 4.1 *H mmol/L Result panel 6115 Adenovirus 2025-05-10 12:09 [facility] Not Detected (missing) (missing) B. parapertussis 2025-05-10 12:09 [facility] Not Detected (missing) (missing) Bordetella pertussis 2025-05-10 12:09 [facility] Not Detected (missing) (missing) Chlamydophila pneumoniae 2025-05-10 12:09 [facility] Not Detected (missing) (missing) Coronavirus 229E 2025-05-10 12:09 [facility] Not Detected (missing) (missing) Coronavirus HKU1 2025-05-10 12:09 [facility] Not Detected (missing) (missing) Coronavirus NL 63 2025-05-10 12:09 [facility] Not Detected (missing) (missing) Coronavirus OC43 2025-05-10 12:09 [facility] Not Detected (missing) (missing) Human Metapneumovirus 2025-05-10 12:09 [facility] Not Detected (missing) (missing) Human Rhinovirus/Enterovi carson 2025-05-10 12:09 [facility] Not Detected (missing) (missing) Influenza A 2025-05-10 12:09 [facility] Not Detected (missing) (missing) Influenza B 2025-05-10 12:09 [facility] Not Detected (missing) (missing) Mycoplasma pneumoniae 2025-05-10 12:09 [facility] Not Detected (missing) (missing) Parainfluenza Virus 1 2025-05-10 12:09 [facility] Not Detected (missing) (missing) Parainfluenza Virus 2 2025-05-10 12:09 [facility] Not Detected (missing) (missing) Parainfluenza Virus 3 2025-05-10 12:09 [facility] Not Detected (missing) (missing) Parainfluenza Virus 4 2025-05-10 12:09 [facility] Not Detected (missing) (missing) Respiratory Syncytial Virus 2025-05-10 12:09 [facility] Not Detected (missing) (missing) SARS- CoV-2 2025-05-10 12:09 [facility] Not Detected (missing) The QnaryFire SARS-CoV-2 test is a rapid, real-time RT-PCR test intended for the qualitative detection of nucleic acid from the SARS-CoV-2 in either nasopharyngeal, nasal, or mid-turbinate swab and/or nasal wash/ aspirate specimens collected from individuals suspected of COVID-19 by their healthcare provider. Results are for the detection of SARS-CoV-2 RNA. The SARS-CoV-2 RNA is generally detectable in upper respiratory specimens during the acute phase of infection. Positive results are indicative of active infection with SARS-CoV-2; clinical correlation with patient history and other diagnostic information is necessary to determine patient infection status. Positive results do not rule out bacterial infection or co-infection with other viruses. The agent detected may not be the definite cause of disease. Negative results do not preclude SARS-CoV-2 infection and should not be used as the sole basis for treatment or other patient management decisions. Negative results must be combined with clinical observations, patient history, and epidemiological information. The [employer]naryFire SARS-CoV-2 test is only for use under the Food and Drug Administrations Emergency Use Authorization. Result panel 6116 Troponin I 2025-05-10 14:04 [facility] < 0.012 ng/ml Ortho Troponin-I Recommended Upper Reference Range & Cutoff The 99th Percentile URL: 0.034 ng/mL AMI Diagnostic Cutoff: 0.120 ng/mL Result panel 6117 Troponin I.cardiac [Mass/volume] in Serum or Plasma 2025-05-10 15:18:08 [facility] < 0.012 ng/mL (missing) (missing) Result panel 6118 Lactate [Mass/volume] in Serum or Plasma 2025-05-10 15:18:08 [facility] 1.9 mmol/L ( issing) Result panel 6119 Troponin I.cardiac [Mass/volume] in Serum or Plasma 2025-05-10 15:18:08 [facility] < 0.012 ng/mL (missing) (missing) Result panel 6120 Lactate [Mass/volume] in Serum or Plasma 2025-05-10 15:18:08 [facility] 1.9 mmol/L ( issing) Result panel 6121 Emergency department note 2025-05-10 16:18 [facility] (missing) (missing) (missing ) Result panel 6122 Troponin I.cardiac [Mass/volume] in Serum or Plasma 2025-05-10 16:18:07 [facility] < 0.012 ng/mL (missing) (missing) Result panel 6123 Lactate [Mass/volume] in Serum or Plasma 2025-05-10 16:18:07 [facility] 1.9 mmol/L ([facility]) Result panel 6124 Troponin I.cardiac [Mass/volume] in Serum or Plasma 2025-05-10 16:18:07 [facility] < 0.012 ng/mL (missing) (missing) Result panel 6125 Lactate [Mass/volume] in Serum or Plasma 2025-05-10 16:18:07 [facility] 1.9 mmol/L ([facility]) Result panel 6126 Troponin I.cardiac [Mass/volume] in Serum or Plasma 2025-05-10 16:18:07 [facility] < 0.012 ng/mL (missing) (missing) Result panel 6127 Lactate [Mass/volume] in Serum or Plasma 2025-05-10 16:18:07 [facility] 1.9 mmol/L ( issing) Result panel 6128 Troponin I.cardiac [Mass/volume] in Serum or Plasma 2025-05-10 16:18:07 [facility] < 0.012 ng/mL (missing) (missing) Result panel 6129 Lactate [Mass/volume] in Serum or Plasma 2025-05-10 16:18:07 [facility] 1.9 mmol/L ( issing) Result panel 6130 Troponin I.cardiac [Mass/volume] in Serum or Plasma 2025-05-10 16:18:07 [facility] < 0.012 ng/mL (missing) (missing) Result panel 6131 Lactate [Mass/volume] in Serum or Plasma 2025-05-10 16:18:07 [facility] 1.9 mmol/L ( issing) Result panel 6132 Troponin I.cardiac [Mass/volume] in Serum or Plasma 2025-05-10 16:18:07 [facility] < 0.012 ng/mL (missing) (missing) Result panel 6133 Lactate [Mass/volume] in Serum or Plasma 2025-05-10 16:18:07 [facility] 1.9 mmol/L ( issing) Result panel 6134 Troponin I.cardiac [Mass/volume] in Serum or Plasma 2025-05-10 16:18:07 [facility] < 0.012 ng/mL (missing) (missing) Result panel 6135 Lactate [Mass/volume] in Serum or Plasma 2025-05-10 16:18:07 [facility] 1.9 mmol/L ([facility]) Result panel 6136 Troponin I.cardiac [Mass/volume] in Serum or Plasma 2025-05-10 16:18:07 [facility] < 0.012 ng/mL (missing) (missing) Result panel 6137 Lactate [Mass/volume] in Serum or Plasma 2025-05-10 16:18:07 [facility] 1.9 mmol/L ( issing) Result panel 6138 Lactate (Lactic Acid) 2025-05-10 16:40 [facility] 1.9 mmol/l Yes/No query for Sepsis Lactate Rule Y Result panel 6139 POC Glucose 2025-05-10 16:51 [facility] 332 mg/dl (missing) Result panel 6140 Troponin I 2025-05-10 18:41 [facility] < 0.012 ng/ml Comment Add to last lab draw (from lactate if possible) Ortho Troponin-I Recommended Upper Reference Range & Cutoff The 99th Percentile URL: 0.034 ng/mL AMI Diagnostic Cutoff: 0.120 ng/mL Result panel 6141 POC Glucose 2025-05-10 19:42 [facility] 347 mg/dl (missing) Result panel 6142 Blood Culture 2025-05-11 03:26 [facility] (missing) (mi ssing) (missing) Blood Culture 2025-05-11 03:26 [facility] NO GROW TH AFTER 24 HOURS (missing) (missing) Result panel 6143 Blood Culture 2025-05-11 03:27 [facility] (missing) (mi ssing) (missing) Blood Culture 2025-05-11 03:27 [facility] NO GROW TH AFTER 24 HOURS (missing) (missing) Result panel 6144 Magnesium [Mass/volume] in Serum or Plasma 2025-05-11 04:49:08 [facility] 2.1 mg/dL ( issing) Result panel 6145 Magnesium [Mass/volume] in Serum or Plasma 2025-05-11 04:49:08 [facility] 2.1 mg/dL ( issing) Result panel 6146 Magnesium [Mass/volume] in Serum or Plasma 2025-05-11 05:49:07 [facility] 2.1 mg/dL ( issing) Result panel 6147 Magnesium [Mass/volume] in Serum or Plasma 2025-05-11 05:49:07 [facility] 2.1 mg/dL ( issing) Result panel 6148 Magnesium [Mass/volume] in Serum or Plasma 2025-05-11 05:49:07 [facility] 2.1 mg/dL ( issing) Result panel 6149 Magnesium [Mass/volume] in Serum or Plasma 2025-05-11 05:49:07 [facility] 2.1 mg/dL ( issing) Result panel 6150 Magnesium [Mass/volume] in Serum or Plasma 2025-05-11 05:49:07 [facility] 2.1 mg/dL ( issing) Result panel 6151 Magnesium [Mass/volume] in Serum or Plasma 2025-05-11 05:49:07 [facility] 2.1 mg/dL ( issing) Result panel 6152 Magnesium [Mass/volume] in Serum or Plasma 2025-05-11 05:49:07 [facility] 2.1 mg/dL ( issing) Result panel 6153 Magnesium [Mass/volume] in Serum or Plasma 2025-05-11 05:49:07 [facility] 2.1 mg/dL ( issing) Result panel 6154 Basophils Absolute Auto 2025-05-11 06:25 [facility] 0 /ul (missing) Eosinophils Absolute Auto 2025-05-11 06:25 [facility] 0 /ul (missing) Eosinophils Percent Auto 2025-05-11 06:25 [facility] 0. 0 % (missing) Basophils Percent Auto 2025-05-11 06:25 [facility] 0.2 % (missing) Monocytes Percent Auto 2025-05-11:25 [facility] 1.6 % (missing) Hemoglobin 2025-05-11 06:25 [facility] 11.7 g/dl (missing) Red Cell Distribution Width 2025-05-11 06:25 [facility] 14.1 % (missing) Neutrophils Absolute Auto 2025-05-11 06:25 [facility] 1 4300 /ul (missing) White Blood Cell Count 2025-05-11:25 [facility] 15.6 x10 3/ul (missing) Monocytes Absolute Auto 2025-05-11 06:25 [facility] 200 /ul (missing) Platelet Count 2025-05-11 06:25 [facility] 230 x1 0 3/ul (missing) Red Blood Cell Count 2025-05-11 06:25 [facility] 3.86 x10 6/ul (missing) Mean Corpuscular Hemoglobin 2025-05-11 06:25 [facility] 30.4 pg (missing) Mean Corpuscular HGB Conc 2025-05-11 06:25 [facility] 3 3.7 % (missing) Hematocrit 2025-05-11:25 [facility] 34.8 % (missing) Lymphocytes Percent Auto 2025-05-11:25 [facility] 6. 0 % (missing) Mean Corpuscular Volume 2025-05-11 06:25 [facility] 90. 3 fl (missing) Lymphocytes Absolute Auto 2025-05-11:25 [facility] 9 00 /ul (missing) Neutrophils Percent Auto 2025-05-11:25 [facility] 92 .2 % (missing) Result panel 6155 Estimated Glomerular Filt Rate 2025-05-11 06:41 [facility] > 60 ml/min Reported eGFR is based the CKD-EPI 2021 equation that does not use a race coefficient. An eGFR below 60 mL/min/1.73m2 suggests that some kidney damage has occurred, and indicative of chronic kidney disease if persisting greater than 3 months. An eGFR less than 15 is indicative of kidney failure. Creatinine 2025-05-11:41 [facility] 0.92 mg/dl (missing) Chloride 2025-05-11:41 [facility] 105 mmol/l (missing) Sodium 2025-05-11 06:41 [facility] 134 mmol/l (missing) Magnesium 2025-05-11 06:41 [facility] 2.1 mg/dl (missing) Carbon Dioxide 2025-05-11 06:41 [facility] 23 mm ol/l (missing) Blood Urea Nitrogen 2025-05-11 06:41 [facility] 29 mg/dl (missing ) BUN Creatinine Ratio 2025-05-11 06:41 [facility] 31.5 (missing) (missing ) Glucose 2025-05-11 06:41 [facility] 367 mg/dl (missing) Potassium 2025-05-11 06:41 [facility] 4.7 mmol/l (missing) Calcium 2025-05-11 06:41 [facility] 8.9 mg/dl (missing) Result panel 6156 POC Glucose 2025-05-11 07:42 [facility] 369 mg/dl (missing) Result panel 6157 POC Glucose 2025-05-11 11:45 [facility] 366 mg/dl (missing) Result panel 6158 POC Glucose 2025-05-11 16:47 [facility] 258 mg/dl Delta: 366 on 05/11/25-1133 Result panel 6159 POC Glucose 2025-05-11 19:37 [facility] 209 mg/dl (missing) Result panel 6160 Blood Culture 2025-05-12 03:26 [facility] (missing) (mi ssing) (missing) Blood Culture 2025-05-12 03:26 [facility] NO GROW TH AFTER 48 HOURS (missing) (missing) Result panel 6161 Basophils Absolute Auto 2025-05-12 06:13 [facility] 0 /ul (missing) Eosinophils Absolute Auto 2025-05-12 06:13 [facility] 0 /ul (missing) Eosinophils Percent Auto 2025-05-12 06:13 [facility] 0. 0 % (missing) Basophils Percent Auto 2025-05-12 06:13 [facility] 0.3 % (missing) Monocytes Percent Auto 2025-05-12 06:13 [facility] 1.6 % (missing) Hemoglobin 2025-05-12 06:13 [facility] 11.6 g/dl (missing) Neutrophils Absolute Auto 2025-05-12 06:13 [facility] 1 2000 /ul (missing) White Blood Cell Count 2025-05-12 06:13 [facility] 13.1 x10 3/ul (missing) Red Cell Distribution Width 2025-05-12 06:13 [facility] 14.1 % (missing) Monocytes Absolute Auto 2025-05-12 06:13 [facility] 200 /ul (missing) Platelet Count 2025-05-12 06:13 [facility] 242 x1 0 3/ul (missing) Red Blood Cell Count 2025-05-12 06:13 [facility] 3.82 x10 6/ul (missing) Mean Corpuscular Hemoglobin 2025-05-12 06:13 [facility] 30.4 pg (missing) Mean Corpuscular HGB Conc 2025-05-12 06:13 [facility] 3 3.8 % (missing) Hematocrit 2025-05-12 06:13 [facility] 34.3 % (missing) Lymphocytes Percent Auto 2025-05-12 06:[address] [place] [address] 7. 0 % (missing) Mean Corpuscular Volume 2025-05-12 06:[address] [place] [address] 89. 9 fl (missing) Lymphocytes Absolute Auto 2025-05-12 06:[address] [place] [address] 9 00 /ul (missing) Neutrophils Percent Auto 2025-05-12 06:[address] [place] [address] 91 .1 % (missing) Result panel 6162 Estimated Glomerular Filt Rate 2025-05-12 06:26 [facility] > 60 ml/min Reported eGFR is based the CKD-EPI 2020 equation that does not use a race coefficient. An eGFR below 60 mL/min/1.73m2 suggests that some kidney damage has occurred, and indicative of chronic kidney disease if persisting greater than 3 months. An eGFR less than 15 is indicative of kidney failure. Creatinine 2025-05-12 06:26 [facility] 0.93 mg/dl (missing) Chloride 2025-05-12 06:26 [facility] 104 mmol/l (missing) Sodium 2025-05-12 06: [facility] 134 mmol/l (missing) Carbon Dioxide 2025-05-12 06: [facility] 24 mm ol/l (missing) Glucose 2025-05-12: [facility] 332 mg/dl (missing) Blood Urea Nitrogen 2025-05-12 06: [facility] 35 mg/dl (missing ) BUN Creatinine Ratio 2025-05-12 06: [facility] 37.6 (missing) (missing ) Potassium 2025-05-12 06: [facility] 4.8 mmol/l (missing) Calcium 2025-05-12 06:26 [facility] 8.9 mg/dl (missing) Result panel 6163 POC Glucose 2025-05-12 07:43 [facility] 341 mg/dl Delta: 209 on 05/11/25-1933 Result panel 6164 POC Glucose 2025-05-12 12:45 [facility] 274 mg/dl (missing) Result panel 6165 POC Glucose 2025-05-12 16:29 [facility] 311 mg/dl (missing) Result panel 6166 POC Glucose 2025-05-12 20:12 [facility] 249 mg/dl (missing) Result panel 6167 Blood Culture 2025-05-13 03:26 [facility] (missing) (mi ssing) (missing) Blood Culture 2025-05-13 03:26 [facility] NO GROW TH AFTER 72 HOURS (missing) (missing) Result panel 6168 White blood cell count 2025-05-13 04:56:08 [facility] 9 .0 X10^3/uL (missing) Result panel 6169 Red blood cell count 2025-05-13 04:56:08 [facility] 3.9 4 X10^6/uL (missing) Result panel 6170 Hemoglobin 2025-05-13 04:56:08 [facility] 12.2 g/d L (missing) Result panel 6171 Hematocrit 2025-05-13 04:56:08 [facility] 35.3 % (missing) Result panel 6172 MCV (mean corpuscular volume ) determination 2025-05-13 04:56:08 [facility] 89.4 fL (mis sing) Result panel 6173 Mean corpuscular hemoglobin (MCH) determination 2025-05-13 04:56:08 [facility] 31.0 PG (missing) Result panel 6174 Mean corpuscular hemoglobin concentration (MCHC) determination 2025-05-13 04:56:08 [facility] 34.7 % (mis sing) Result panel 6175 Red cell distribution width determination 2025-05-13 04:56:08 [facility] 14.2 % (mis sing) Result panel 6176 Platelet count 2025-05-13 04:56:08 [facility] 231 X10^3/uL (missing) Result panel 6177 Automated neutrophil % 2025-05-13 04:56:08 [facility] 8 8.7 % (missing) Result panel 6178 Automated lymphocyte % 2025-05-13 04:56:08 [facility] 8 .9 % (missing) Result panel 6179 Automated monocyte % 2025-05-13 04:56:08 [facility] 2.1 % (missing) Result panel 6180 Automated eosinophil % 2025-05-13 04:56:08 [facility] 0 .0 % (missing) Result panel 6181 Automated basophil % 2025-05-13 04:56:08 [facility] 0.3 % (missing) Result panel 6182 Absolute neutrophil count 2025-05-13 04:56:08 [facility] l 8000 /uL (missing) Result panel 6183 Absolute lymphocyte count 2025-05-13 04:56:08 [facility] l 800 /uL (missing) Result panel 6184 Automated blood monocyte count 2025-05-13 04:56:08 [facility] 200 /uL (missing) Result panel 6185 [facility] eosin[facility] 2025-05-13 [facility]:56[facility] Result panel 6186 Automated basophil count 2025-05-13 04:56:08 [facility] 0 /uL (missing) Result panel 6187 White blood cell count 2025-05-13 04:56:08 [facility] 9 .0 X10^3/uL (missing) Result panel 6188 Red blood cell count 2025-05-13 04:56:08 [facility] 3.9 4 X10^6/uL (missing) Result panel 6189 Hemoglobin 2025-05-13 04:56:08 [facility] 12.2 g/d L (missing) Result panel 6190 Hematocrit 2025-05-13 04:56:08 [facility] 35.3 % (missing) Result panel 6191 MCV (mean corpuscular volume ) determination 2025-05-13 04:56:08 [facility] 89.4 fL (mis sing) Result panel 6192 Mean corpuscular hemoglobin (MCH) determination 2025-05-13 04:56:08 [facility] 31.0 PG (missing) Result panel 6193 Mean corpuscular hemoglobin concentration (MCHC) determination 2025-05-13 04:56:08 [facility] 34.7 % (mis sing) Result panel 6194 Red cell distribution width determination 2025-05-13 04:56:08 [facility] 14.2 % (mis sing) Result panel 6195 Platelet count 2025-05-13 04:56:08 [facility] 231 X10^3/uL (missing) Result panel 6196 Automated neutrophil % 2025-05-13 04:56:08 [facility] 8 8.7 % (missing) Result panel 6197 Sodium [Moles/volume] in Serum or Plasma 2025-05-13 04:56:08 [facility] 131 mmol/L ([facility]) Result panel 6198 Automated lymphocyte % 2025-05-13 04:56:08 [facility] 8 .9 % (missing) Result panel 6199 Automated monocyte % 2025-05-13 04:56:08 [facility] 2.1 % (missing) Result panel 6200 Automated eosinophil % 2025-05-13 04:56:08 [facility] 0 .0 % (missing) Result panel 6201 Automated basophil % 2025-05-13 04:56:08 [facility] 0.3 % (missing) Result panel 6202 Absolute neutrophil count 2025-05-13 04:56:08 [facility] l 8000 /uL (missing) Result panel 6203 Absolute lymphocyte count 2025-05-13 04:56:08 [facility] /uL (missing) Result panel 6204 Automated blood monocyte count 2025-05-13 04:56:08 [facility] sp[facility] 200 /uL (missing) Result panel 6205 Automated eosin[facility] 2025-05-13 04:56[facility] Result panel 6206 Automated basophil count 2025-05-13 04:56:08 [facility] 0 /uL (missing) Result panel 6207 Sodium [Moles/volume] in Serum or Plasma 2025-05-13 04:56:08 [facility] 131 mmol/L ([facility]) Result panel 6208 Potassium [Moles/volume] in Serum or Plasma 2025-05-13 04:56:08 [facility] 4.7 mmol/L ([facility]) Result panel 6209 Potassium [Moles/volume] in Serum or Plasma 2025-05-13 04:56:08 [facility] 4.7 mmol/L ([facility]) Result panel 6210 Chloride [Moles/volume] in Serum or Plasma 2025-05-13 04:56:08 [facility] 100 mmol/L ([facility]) Result panel 6211 Carbon dioxide, total [Moles/volume] in Serum or Plasma 2025-05-13 04:56:08 [facility] 23 mmol/L ([facility]) Result panel 6212 Urea nitrogen [Mass/volume] in Serum or Plasma 2025-05-13 04:56:08 [facility] 37 mg/dL ([facility]) Result panel 6213 Creatinine [Mass/volume] in Serum or Plasma 2025-05-13 04:56:08 [facility] 1.02 mg/dL ([facility]) Result panel 6214 Glomerular filtration rate (GFR) estimation 2025-05-13 04:56:08 [facility] 57 mL/min ( missing) Result panel 6215 BUN/creatinine ratio 2025-05-13 04:56:08 [facility] 36. 3 (missing) (missing) Result panel 6216 Glucose [Mass/volume] in Serum or Plasma 2025-05-13 04:56:08 [facility] 422 mg/dL ([facility]) Result panel 6217 Calcium [Mass/volume] in Serum or Plasma 2025-05-13 04:56:08 [facility] 8.6 mg/dL ([facility]) Result panel 6218 Chloride [Moles/volume] in Serum or Plasma 2025-05-13 04:56:08 [facility] 100 mmol/L ([facility]) Result panel 6219 Carbon dioxide, total [Moles/volume] in Serum or Plasma 2025-05-13 04:56:08 [facility] 23 mmol/L ([facility]) Result panel 6220 Urea nitrogen [Mass/volume] in Serum or Plasma 2025-05-13 04:56:08 [facility] 37 mg/dL ([facility]) Result panel 6221 Creatinine [Mass/volume] in Serum or Plasma 2025-05-13 04:56:08 [facility] 1.02 mg/dL ([facility]) Result panel 6222 Glomerular filtration rate (GFR) estimation 2025-05-13 04:56:08 [facility] 57 mL/min ( missing) Result panel 6223 BUN/creatinine ratio 2025-05-13 04:56:08 [facility] 36. 3 (missing) (missing) Result panel 6224 Glucose [Mass/volume] in Serum or Plasma 2025-05-13 04:56:08 [facility] 422 mg/dL ([facility]) Result panel 6225 Calcium [Mass/volume] in Serum or Plasma 2025-05-13 04:56:08 [facility] 8.6 mg/dL ([facility]) Result panel 6226 White blood cell count 2025-05-13 05:56:07 [facility] 9 .0 X10^3/uL (missing) Result panel 6227 Red blood cell count 2025-05-13 05:56:07 [facility] 3.9 4 X10^6/uL (missing) Result panel 6228 Hemoglobin 2025-05-13 05:56:07 [facility] 12.2 g/d L (missing) Result panel 6229 Hematocrit 2025-05-13 05:56:07 [facility] 35.3 % (missing) Result panel 6230 MCV (mean corpuscular volume ) determination 2025-05-13 05:56:07 [facility] 89.4 fL ([facility]) Result panel 6231 Mean corpuscular hemoglobin (MCH) determination 2025-05-13 05:56:07 [facility] 31.0 PG (missing) Result panel 6232 Mean corpuscular hemoglobin concentration (MCHC) determination 2025-05-13 05:56:07 [facility] 34.7 % (mis sing) Result panel 6233 Red cell distribution width determination 2025-05-13 05:56:07 [facility] 14.2 % (mis sing) Result panel 6234 Platelet count 2025-05-13 05:56:07 [facility] 231 X10^3/uL (missing) Result panel 6235 Automated neutrophil % 2025-05-13 05:56:07 [facility] 8 8.7 % (missing) Result panel 6236 Automated lymphocyte % 2025-05-13 05:56:07 [facility] 8 .9 % (missing) Result panel 6237 Automated monocyte % 2025-05-13 05:56:07 [facility] 2.1 % (missing) Result panel 6238 Automated eosinophil % 2025-05-13 05:56:07 [facility] 0 .0 % (missing) Result panel 6239 Automated basophil % 2025-05-13 05:56:07 [facility] 0.3 % (missing) Result panel 6240 Absolute neutrophil count 2025-05-13 05:56:07 [facility] l 8000 /uL (missing) Result panel 6241 Absolute lymphocyte count 2025-05-13 05:56:07 [facility] l 800 /uL (missing) Result panel 6242 Automated blood monocyte count 2025-05-13 05:56:07 [facility] sp[facility] 200 /uL (missing) Result panel 6243 Automated eosinophil count 2025-05-13 05:56:07 [facility] 0 /uL (missing) Result panel 6244 Automated basophil count 2025-05-13 05:56:07 [facility] 0 /uL (missing) Result panel 6245 Sodium [Moles/volume] in Serum or Plasma 2025-05-13 05:56:07 [facility] 131 mmol/L ([facility]) Result panel 6246 Potassium [Moles/volume] in Serum or Plasma 2025-05-13 05:56:07 [facility] 4.7 mmol/L ([facility]) Result panel 6247 Chloride [Moles/volume] in Serum or Plasma 2025-05-13 05:56:07 [facility] 100 mmol/L ([facility]) Result panel 6248 Carbon dioxide, total [Moles/volume] in Serum or Plasma 2025-05-13 05:56:07 [facility] 23 mmol/L ([facility]) Result panel 6249 Urea nitrogen [Mass/volume] in Serum or Plasma 2025-05-13 05:56:07 [facility] 37 mg/dL ([facility]) Result panel 6250 Creatinine [Mass/volume] in Serum or Plasma 2025-05-13 05:56:07 [facility] 1.02 mg/dL ([facility]) Result panel 6251 Glomerular filtration rate (GFR) estimation 2025-05-13 05:56:07 [facility] 57 mL/min ( missing) Result panel 6252 BUN/creatinine ratio 2025-05-13 05:56:07 [facility] 36. 3 (missing) (missing) Result panel 6253 Glucose [Mass/volume] in Serum or Plasma 2025-05-13 05:56:07 [facility] 422 mg/dL ([facility]) Result panel 6254 Calcium [Mass/volume] in Serum or Plasma 2025-05-13 05:56:07 [facility] 8.6 mg/dL ([facility]) Result panel 6255 White blood cell count 2025-05-13 05:56:07 [facility] 9 .0 X10^3/uL (missing) Result panel 6256 Red blood cell count 2025-05-13 05:56:07 [facility] 3.9 4 X10^6/uL (missing) Result panel 6257 Hemoglobin 2025-05-13 05:56:07 [facility] 12.2 g/d L (missing) Result panel 6258 Hematocrit 2025-05-13 05:56:07 [facility] 35.3 % (missing) Result panel 6259 MCV (mean corpuscular volume ) determination 2025-05-13 05:56:07 [facility] 89.4 fL ([facility]) Result panel 6260 Mean corpuscular hemoglobin (MCH) determination 2025-05-13 05:56:07 [facility] 31.0 PG (missing) Result panel 6261 Mean corpuscular hemoglobin concentration (MCHC) determination 2025-05-13 05:56:07 [facility] 34.7 % (mis sing) Result panel 6262 Red cell distribution width determination 2025-05-13 05:56:07 [facility] 14.2 % (mis sing) Result panel 6263 Platelet count 2025-05-13 05:56:07 [facility] 231 X10^3/uL (missing) Result panel 6264 Automated neutrophil % 2025-05-13 05:56:07 [facility] 8 8.7 % (missing) Result panel 6265 Automated lymphocyte % 2025-05-13 05:56:07 [facility] 8 .9 % (missing) Result panel 6266 Automated monocyte % 2025-05-13 05:56:07 [facility] 2.1 % (missing) Result panel 6267 Automated eosinophil % 2025-05-13 05:56:07 [facility] 0 .0 % (missing) Result panel 6268 Automated basophil % 2025-05-13 05:56:07 [facility] 0.3 % (missing) Result panel 6269 Absolute neutrophil count 2025-05-13 05:56:07 [facility] l 8000 /uL (missing) Result panel 6270 Absolute lymphocyte count 2025-05-13 05:56[facility]07 [facility] /[facility] ([facility] Result panel 6271 Automated blood monocyte count 2025-05-13 05:56:07 [facility] sp[facility] 200 /uL (missing) Result panel 6272 Automated eosinophil count 2025-05-13 05:56:07 [facility] ([facility]) Result panel 6273 Automated basophil count 2025-05-13 05:56:07 [facility] 0 /uL (missing) Result panel 6274 Sodium [Moles/volume] in Serum or Plasma 2025-05-13 05:56:07 [facility] 131 mmol/L ([facility]) Result panel 6275 Potassium [Moles/volume] in Serum or Plasma 2025-05-13 05:56:07 [facility] 4.7 mmol/L ([facility]) Result panel 6276 Chloride [Moles/volume] in Serum or Plasma 2025-05-13 05:56:07 [facility] 100 mmol/L ([facility]) Result panel 6277 Carbon dioxide, total [Moles/volume] in Serum or Plasma 2025-05-13 05:56:07 [facility] 23 mmol/L ([facility]) Result panel 6278 Urea nitrogen [Mass/volume] in Serum or Plasma 2025-05-13 05:56:07 [facility] 37 mg/dL ([facility]) Result panel 6279 Creatinine [Mass/volume] in Serum or Plasma 2025-05-13 05:56:07 [facility] 1.02 mg/dL ([facility]) Result panel 6280 Glomerular filtration rate (GFR) estimation 2025-05-13 05:56:07 [facility] 57 mL/min ( missing) Result panel 6281 BUN/creatinine ratio 2025-05-13 05:56:07 [facility] 36. 3 (missing) (missing) Result panel 6282 Glucose [Mass/volume] in Serum or Plasma 2025-05-13 05:56:07 [facility] 422 mg/dL ([facility]) Result panel 6283 Calcium [Mass/volume] in Serum or Plasma 2025-05-13 05:56:07 [facility] 8.6 mg/dL ([facility]) Result panel 6284 White blood cell count 2025-05-13 05:56:07 [facility] 9 .0 X10^3/uL (missing) Result panel 6285 Red blood cell count 2025-05-13 05:56:07 [facility] 3.9 4 X10^6/uL (missing) Result panel 6286 Hemoglobin 2025-05-13 05:56:07 [facility] 12.2 g/d L (missing) Result panel 6287 Hematocrit 2025-05-13 05:56:07 [facility] 35.3 % (missing) Result panel 6288 MCV (mean corpuscular volume ) determination 2025-05-13 05:56:07 [facility] 89.4 fL ([facility]) Result panel 6289 Mean corpuscular hemoglobin (MCH) determination 2025-05-13 05:56:07 [facility] 31.0 PG (missing) Result panel 6290 Mean corpuscular hemoglobin concentration (MCHC) determination 2025-05-13 05:56:07 [facility] 34.7 % (mis sing) Result panel 6291 Red cell distribution width determination 2025-05-13 05:56:07 [facility] 14.2 % (mis sing) Result panel 6292 Platelet count 2025-05-13 05:56:07 [facility] 231 X10^3/uL (missing) Result panel 6293 Automated neutrophil % 2025-05-13 05:56:07 [facility] 8 8.7 % (missing) Result panel 6294 Automated lymphocyte % 2025-05-13 05:56:07 [facility] 8 .9 % (missing) Result panel 6295 Automated monocyte % 2025-05-13 05:56:07 [facility] 2.1 % (missing) Result panel 6296 Automated eosinophil % 2025-05-13 05:56:07 [facility] 0 .0 % (missing) Result panel 6297 White blood cell count 2025-05-13 05:56:07 [facility] 9 .0 X10^3/uL (missing) Result panel 6298 Red blood cell count 2025-05-13 05:56:07 [facility] 3.9 4 X10^6/uL (missing) Result panel 6299 Hemoglobin 2025-05-13 05:56:07 [facility] 12.2 g/d L (missing) Result panel 6300 Hematocrit 2025-05-13 05:56:07 [facility] 35.3 % (missing) Result panel 6301 MCV (mean corpuscular volume ) determination 2025-05-13 05:56:07 [facility] 89.4 fL (mis [facility]) Result panel 6302 Mean corpuscular hemoglobin (MCH) determination 2025-05-13 05:56:07 [facility] 31.0 PG (missing) Result panel 6303 Mean corpuscular hemoglobin concentration (MCHC) determination 2025-05-13 05:56:07 [facility] 34.7 % (mis sing) Result panel 6304 Red cell distribution width determination 2025-05-13 05:56:07 [facility] 14.2 % (mis sing) Result panel 6305 Platelet count 2025-05-13 05:56:07 [facility] 231 X10^3/uL (missing) Result panel 6306 Automated basophil % 2025-05-13 05:56:07 [facility] 0.3 % (missing) Result panel 6307 Automated neutrophil % 2025-05-13 05:56:07 [facility] 8 8.7 % (missing) Result panel 6308 Automated lymphocyte % 2025-05-13 05:56:07 [facility] 8 .9 % (missing) Result panel 6309 Automated monocyte % 2025-05-13 05:56:07 [facility] 2.1 % (missing) Result panel 6310 Automated eosinophil % 2025-05-13 05:56:07 [facility] 0 .0 % (missing) Result panel 6311 Automated basophil % 2025-05-13 05:56:07 [facility] 0.3 % (missing) Result panel 6312 Absolute neutrophil count 2025-05-13 05:56:07 [facility] 8000 /[facility]L ([facility]) Result panel 6313 Absolute lymphocyte count 2025-05-13 05:56:07 [facility] 800 /uL (missing) Result panel 6314 Automated blood monocyte count 2025-05-13 05:56:07 [facility] sp[facility] 200 /uL (missing) Result panel 6315 Automated eosinophil count 2025-05-13 05:56:07 [facility] /[facility] ([facility]) Result panel 6316 Automated basophil count 2025-05-13 05:56:07 [facility] 0 /uL (missing) Result panel 6317 Absolute neutrophil count 2025-05-13 05:56:07 [facility] 8000 /uL (missing) Result panel 6318 Sodium [Moles/volume] in Serum or Plasma 2025-05-13 05:56:07 [facility] 131 mmol/L ([facility]) Result panel 6319 Potassium [Moles/volume] in Serum or Plasma 2025-05-13 05:56:07 [facility] 4.7 mmol/L ([facility]) Result panel 6320 Chloride [Moles/volume] in Serum or Plasma 2025-05-13 05:56:07 [facility] 100 mmol/L ([facility]) Result panel 6321 Carbon dioxide, total [Moles/volume] in Serum or Plasma 2025-05-13 05:56:07 [facility] 23 mmol/L ([facility]) Result panel 6322 Urea nitrogen [Mass/volume] in Serum or Plasma 2025-05-13 05:56:07 [facility] 37 mg/dL ([facility]) Result panel 6323 Creatinine [Mass/volume] in Serum or Plasma 2025-05-13 05:56:07 [facility] 1.02 mg/dL ([facility]) Result panel 6324 Glomerular filtration rate (GFR) estimation 2025-05-13 05:56:07 [facility] 57 mL/min ( missing) Result panel 6325 BUN/creatinine ratio 2025-05-13 05:56:07 [facility] 36. 3 (missing) (missing) Result panel 6326 Glucose [Mass/volume] in Serum or Plasma 2025-05-13 05:56:07 [facility] 422 mg/dL ([facility]) Result panel 6327 Calcium [Mass/volume] in Serum or Plasma 2025-05-13 05:56:07 [facility] 8.6 mg/dL ([facility]) Result panel 6328 Absolute lymphocyte count 2025-05-13 05:56:07 [facility] l 800 /uL (missing) Result panel 6329 White blood cell count 2025-05-13 05:56:07 [facility] 9 .0 X10^3/uL (missing) Result panel 6330 Red blood cell count 2025-05-13 05:56:07 [facility] 3.9 4 X10^6/uL (missing) Result panel 6331 Hemoglobin 2025-05-13 05:56:07 [facility] 12.2 g/d L (missing) Result panel 6332 Hematocrit 2025-05-13 05:56:07 [facility] 35.3 % (missing) Result panel 6333 MCV (mean corpuscular volume ) determination 2025-05-13 05:56:07 [facility] 89.4 fL (mis [facility]) Result panel 6334 Mean corpuscular hemoglobin (MCH) determination 2025-05-13 05:56:07 [facility] 31.0 PG (missing) Result panel 6335 Mean corpuscular hemoglobin concentration (MCHC) determination 2025-05-13 05:56:07 [facility] 34.7 % (mis sing) Result panel 6336 Red cell distribution width determination 2025-05-13 05:56:07 [facility] 14.2 % (mis sing) Result panel 6337 Platelet count 2025-05-13 05:56:07 [facility] 231 X10^3/uL (missing) Result panel 6338 Automated neutrophil % 2025-05-13 05:56:07 [facility] 8 8.7 % (missing) Result panel 6339 Automated blood monocyte count 2025-05-13 05:56:07 [facility] sp[facility] 200 /uL (missing) Result panel 6340 Automated lymphocyte % 2025-05-13 05:56:07 [facility] 8 .9 % (missing) Result panel 6341 Automated monocyte % 2025-05-13 05:56:07 [facility] 2.1 % (missing) Result panel 6342 Automated eosinophil % 2025-05-13 05:56:07 [facility] 0 .0 % (missing) Result panel 6343 Automated basophil % 2025-05-13 05:56:07 [facility] 0.3 % (missing) Result panel 6344 Absolute neutrophil count 2025-05-13 05:56:07 [facility] 8000 /uL (missing) Result panel 6345 Absolute lymphocyte count 2025-05-13 05:56:07 [facility] 800 /uL (missing) Result panel 6346 Automated blood monocyte count 2025-05-13 05:56:07 [facility] 200 /uL (missing) Result panel 6347 Automated eosinophil count 2025-05-13 05:56[facility]07 [facility] ([facility] Result panel 6348 Automated basophil count 2025-05-13 05:56:07 [facility] 0 /uL (missing) Result panel 6349 Sodium [Moles/volume] in Serum or Plasma 2025-05-13 05:56:07 [facility] 131 mmol/L ( [facility]) Result panel 6350 Automated eosinophil count 2025-05-13 05:56[facility]07 [facility] ([facility]) Result panel 6351 Potassium [Moles/volume] in Serum or Plasma 2025-05-13 05:56:07 [facility] 4.7 mmol/L ( [facility]) Result panel 6352 Chloride [Moles/volume] in Serum or Plasma 2025-05-13 05:56:07 [facility] 100 mmol/L ( [facility]) Result panel 6353 Carbon dioxide, total [Moles/volume] in Serum or Plasma 2025-05-13 05:56:07 [facility] 23 mmol/L ([facility]) Result panel 6354 Urea nitrogen [Mass/volume] in Serum or Plasma 2025-05-13 05:56:07 [facility] 37 mg/dL ([facility]) Result panel 6355 Creatinine [Mass/volume] in Serum or Plasma 2025-05-13 05:56:07 [facility] 1.02 mg/dL ([facility]) Result panel 6356 Glomerular filtration rate (GFR) estimation 2025-05-13 05:56:07 [facility] 57 mL/min ( missing) Result panel 6357 BUN/creatinine ratio 2025-05-13 05:56:07 [facility] 36. 3 (missing) (missing) Result panel 6358 Glucose [Mass/volume] in Serum or Plasma 2025-05-13 05:56:07 [facility] 422 mg/dL ([facility]) Result panel 6359 Calcium [Mass/volume] in Serum or Plasma 2025-05-13 05:56:07 [facility] 8.6 mg/dL ([facility]) Result panel 6360 Automated basophil count 2025-05-13 05:56:07 [facility] 0 /uL (missing) Result panel 6361 Sodium [Moles/volume] in Serum or Plasma 2025-05-13 05:56:07 [facility] 131 mmol/L ([facility]) Result panel 6362 Potassium [Moles/volume] in Serum or Plasma 2025-05-13 05:56:07 [facility] 4.7 mmol/L ([facility]) Result panel 6363 Chloride [Moles/volume] in Serum or Plasma 2025-05-13 05:56:07 [facility] 100 mmol/L ([facility]) Result panel 6364 Carbon dioxide, total [Moles/volume] in Serum or Plasma 2025-05-13 05:56:07 [facility] 23 mmol/L ([facility]) Result panel 6365 Urea nitrogen [Mass/volume] in Serum or Plasma 2025-05-13 05:56:07 [facility] 37 mg/dL ([facility]) Result panel 6366 Creatinine [Mass/volume] in Serum or Plasma 2025-05-13 05:56:07 [facility] 1.02 mg/dL ([facility]) Result panel 6367 Glomerular filtration rate (GFR) estimation 2025-05-13 05:56:07 [facility] 57 mL/min ( missing) Result panel 6368 BUN/creatinine ratio 2025-05-13 05:56:07 [facility] 36. 3 (missing) (missing) Result panel 6369 Glucose [Mass/volume] in Serum or Plasma 2025-05-13 05:56:07 [facility] 422 mg/dL ([facility]) Result panel 6370 Calcium [Mass/volume] in Serum or Plasma 2025-05-13 05:56:07 [facility] 8.6 mg/dL ([facility]) Result panel 6371 White blood cell count 2025-05-13 05:56:07 [facility] 9 .0 X10^3/uL (missing) Result panel 6372 Red blood cell count 2025-05-13 05:56:07 [facility] 3.9 4 X10^6/uL (missing) Result panel 6373 Hemoglobin 2025-05-13 05:56:07 [facility] 12.2 g/d L (missing) Result panel 6374 Hematocrit 2025-05-13 05:56:07 [facility] 35.3 % (missing) Result panel 6375 MCV (mean corpuscular volume ) determination 2025-05-13 05:56:07 [facility] 89.4 fL (mis [facility]) Result panel 6376 Mean corpuscular hemoglobin (MCH) determination 2025-05-13 05:56:07 [facility] 31.0 PG (missing) Result panel 6377 Mean corpuscular hemoglobin concentration (MCHC) determination 2025-05-13 05:56:07 [facility] 34.7 % (mis sing) Result panel 6378 Red cell distribution width determination 2025-05-13 05:56:07 [facility] 14.2 % (mis sing) Result panel 6379 Platelet count 2025-05-13 05:56:07 [facility] 231 X10^3/uL (missing) Result panel 6380 Automated neutrophil % 2025-05-13 05:56:07 [facility] 8 8.7 % (missing) Result panel 6381 Automated lymphocyte % 2025-05-13 05:56:07 [facility] 8 .9 % (missing) Result panel 6382 Automated monocyte % 2025-05-13 05:56:07 [facility] 2.1 % (missing) Result panel 6383 Automated eosinophil % 2025-05-13 05:56:07 [facility] 0 .0 % (missing) Result panel 6384 Automated basophil % 2025-05-13 05:56:07 [facility] 0.3 % (missing) Result panel 6385 Absolute neutrophil count 2025-05-13 05:56:07 [facility] l 8000 /uL (missing) Result panel 6386 Absolute lymphocyte count 2025-05-13 05:56:07 [facility] 800 /[facility] ([facility]) Result panel 6387 Automated blood monocyte count 2025-05-13 05:56:07 [facility] 200 /uL (missing) Result panel 6388 Automated eosinophil count 2025-05-13 05:56:07 [facility] ([facility]) Result panel 6389 Automated basophil count 2025-05-13 05:56:07 [facility] 0 /uL (missing) Result panel 6390 Sodium [Moles/volume] in Serum or Plasma 2025-05-13 05:56:07 [facility] 131 mmol/L ([facility]) Result panel 6391 Potassium [Moles/volume] in Serum or Plasma 2025-05-13 05:56:07 [facility] 4.7 mmol/L ([facility]) Result panel 6392 Chloride [Moles/volume] in Serum or Plasma 2025-05-13 05:56:07 [facility] 100 mmol/L ([facility]) Result panel 6393 Carbon dioxide, total [Moles/volume] in Serum or Plasma 2025-05-13 05:56:07 [facility] 23 mmol/L ([facility]) Result panel 6394 Urea nitrogen [Mass/volume] in Serum or Plasma 2025-05-13 05:56:07 [facility] 37 mg/dL ([facility]) Result panel 6395 Creatinine [Mass/volume] in Serum or Plasma 2025-05-13 05:56:07 [facility] 1.02 mg/dL ([facility]) Result panel 6396 Glomerular filtration rate (GFR) estimation 2025-05-13 05:56:07 [facility] 57 mL/min ( missing) Result panel 6397 BUN/creatinine ratio 2025-05-13 05:56:07 [facility] 36. 3 (missing) (missing) Result panel 6398 Glucose [Mass/volume] in Serum or Plasma 2025-05-13 05:56:07 [facility] 422 mg/dL ([facility]) Result panel 6399 Calcium [Mass/volume] in Serum or Plasma 2025-05-13 05:56:07 [facility] 8.6 mg/dL ([facility]) Result panel 6400 White blood cell count 2025-05-13 05:56:07 [facility] 9 .0 X10^3/uL (missing) Result panel 6401 Red blood cell count 2025-05-13 05:56:07 [facility] 3.9 4 X10^6/uL (missing) Result panel 6402 Hemoglobin 2025-05-13 05:56:07 [facility] 12.2 g/d L (missing) Result panel 6403 Hematocrit 2025-05-13 05:56:07 [facility] 35.3 % (missing) Result panel 6404 MCV (mean corpuscular volume ) determination 2025-05-13 05:56:07 [facility] 89.4 fL (mis [facility]) Result panel 6405 Mean corpuscular hemoglobin (MCH) determination 2025-05-13 05:56:07 [facility] 31.0 PG (missing) Result panel 6406 Mean corpuscular hemoglobin concentration (MCHC) determination 2025-05-13 05:56:07 [facility] 34.7 % (mis sing) Result panel 6407 Red cell distribution width determination 2025-05-13 05:56:07 [facility] 14.2 % (mis sing) Result panel 6408 Platelet count 2025-05-13 05:56:07 [facility] 231 X10^3/uL (missing) Result panel 6409 Automated neutrophil % 2025-05-13 05:56:07 [facility] 8 8.7 % (missing) Result panel 6410 Automated lymphocyte % 2025-05-13 05:56:07 [facility] 8 .9 % (missing) Result panel 6411 Automated monocyte % 2025-05-13 05:56:07 [facility] 2.1 % (missing) Result panel 6412 Automated eosinophil % 2025-05-13 05:56:07 [facility] 0 .0 % (missing) Result panel 6413 Automated basophil % 2025-05-13 05:56:07 [facility] 0.3 % (missing) Result panel 6414 Absolute neutrophil count 2025-05-13 05:56:07 [facility] ([facility]) Result panel 6415 Absolute lymphocyte count 2025-05-13 05:56:07 [facility] 800 /uL (missing) Result panel 6416 Automated blood monocyte count 2025-05-13 05:56:07 [facility] 200 /uL (missing) Result panel 6417 Automated eosinophil count 2025-05-13 05:56:07 [facility] 0 /[facility]L (missing) Result panel 6418 Automated basophil count 2025-05-13 05:56:07 [facility] 0 /uL (missing) Result panel 6419 Sodium [Moles/volume] in Serum or Plasma 2025-05-13 05:56:07 [facility] 131 mmol/L ([facility]) Result panel 6420 Potassium [Moles/volume] in Serum or Plasma 2025-05-13 05:56:07 [facility] 4.7 mmol/L ([facility]) Result panel 6421 Chloride [Moles/volume] in Serum or Plasma 2025-05-13 05:56:07 [facility] 100 mmol/L ([facility]) Result panel 6422 Carbon dioxide, total [Moles/volume] in Serum or Plasma 2025-05-13 05:56:07 [facility] 23 mmol/L ([facility]) Result panel 6423 Urea nitrogen [Mass/volume] in Serum or Plasma 2025-05-13 05:56:07 [facility] 37 mg/dL ([facility]) Result panel 6424 Creatinine [Mass/volume] in Serum or Plasma 2025-05-13 05:56:07 [facility] 1.02 mg/dL ([facility]) Result panel 6425 Glomerular filtration rate (GFR) estimation 2025-05-13 05:56:07 [facility] 57 mL/min ( missing) Result panel 6426 BUN/creatinine ratio 2025-05-13 05:56:07 [facility] 36. 3 (missing) (missing) Result panel 6427 Glucose [Mass/volume] in Serum or Plasma 2025-05-13 05:56:07 [facility] 422 mg/dL ([facility]) Result panel 6428 Calcium [Mass/volume] in Serum or Plasma 2025-05-13 05:56:07 [facility] 8.6 mg/dL ([facility]) Result panel 6429 White blood cell count 2025-05-13 05:56:07 [facility] 9 .0 X10^3/uL (missing) Result panel 6430 Red blood cell count 2025-05-13 05:56:07 [facility] 3.9 4 X10^6/uL (missing) Result panel 6431 Hemoglobin 2025-05-13 05:56:07 [facility] 12.2 g/d L (missing) Result panel 6432 Hematocrit 2025-05-13 05:56:07 [facility] 35.3 % (missing) Result panel 6433 MCV (mean corpuscular volume ) determination 2025-05-13 05:56:07 [facility] 89.4 fL (mis [facility]) Result panel 6434 Mean corpuscular hemoglobin (MCH) determination 2025-05-13 05:56:07 [facility] 31.0 PG (missing) Result panel 6435 Mean corpuscular hemoglobin concentration (MCHC) determination 2025-05-13 05:56:07 [facility] 34.7 % (mis sing) Result panel 6436 Red cell distribution width determination 2025-05-13 05:56:07 [facility] 14.2 % (mis sing) Result panel 6437 Platelet count 2025-05-13 05:56:07 [facility] 231 X10^3/uL (missing) Result panel 6438 Automated neutrophil % 2025-05-13 05:56:07 [facility] 8 8.7 % (missing) Result panel 6439 Automated lymphocyte % 2025-05-13 05:56:07 [facility] 8 .9 % (missing) Result panel 6440 Automated monocyte % 2025-05-13 05:56:07 [facility] 2.1 % (missing) Result panel 6441 Automated eosinophil % 2025-05-13 05:56:07 [facility] 0 .0 % (missing) Result panel 6442 Automated basophil % 2025-05-13 05:56:07 [facility] 0.3 % (missing) Result panel 6443 Absolute neutrophil count 2025-05-13 05:56:07 [facility] 8000 /uL (missing) Result panel 6444 Absolute lymphocyte count 2025-05-13 05:56:07 [facility] 800 /uL (missing) Result panel 6445 Automated blood monocyte count 2025-05-13 05:56:07 [facility] 200 /uL (missing) Result panel 6446 Automated eosinophil count 2025-05-13 05:56:07 [facility] ([facility]) Result panel 6447 Automated basophil count 2025-05-13 05:56:07 [facility] 0 /uL (missing) Result panel 6448 Sodium [Moles/volume] in Serum or Plasma 2025-05-13 05:56:07 [facility] 131 mmol/L ([facility]) Result panel 6449 Potassium [Moles/volume] in Serum or Plasma 2025-05-13 05:56:07 [facility] 4.7 mmol/L ([facility]) Result panel 6450 Chloride [Moles/volume] in Serum or Plasma 2025-05-13 05:56:07 [facility] 100 mmol/L ([facility]) Result panel 6451 Carbon dioxide, total [Moles/volume] in Serum or Plasma 2025-05-13 05:56:07 [facility] 23 mmol/L ([facility]) Result panel 6452 Urea nitrogen [Mass/volume] in Serum or Plasma 2025-05-13 05:56:07 [facility] 37 mg/dL ([facility]) Result panel 6453 Creatinine [Mass/volume] in Serum or Plasma 2025-05-13 05:56:07 [facility] 1.02 mg/dL ([facility]) Result panel 6454 Glomerular filtration rate (GFR) estimation 2025-05-13 05:56:07 [facility] 57 mL/min ( missing) Result panel 6455 BUN/creatinine ratio 2025-05-13 05:56:07 [facility] 36. 3 (missing) (missing) Result panel 6456 Glucose [Mass/volume] in Serum or Plasma 2025-05-13 05:56:07 [facility] 422 mg/dL ([facility]) Result panel 6457 Calcium [Mass/volume] in Serum or Plasma 2025-05-13 05:56:07 [facility] 8.6 mg/dL ([facility]) Result panel 6458 Basophils Absolute Auto 2025-05-13 06:32 [facility] 0 /ul (missing) Eosinophils Absolute Auto 2025-05-13 06:32 [facility] 0 /ul (missing) Eosinophils Percent Auto 2025-05-13 06:32 [facility] 0. 0 % (missing) Basophils Percent Auto 2025-05-13 06:32 [facility] 0.3 % (missing) Hemoglobin 2025-05-13 06:32 [facility] 12.2 g/dl (missing) Red Cell Distribution Width 2025-05-13 :[address] [place] [address] 14.2 % (missing) Monocytes Percent Auto 2025-05-13 :[address] [place] [address] 2.1 % (missing) Monocytes Absolute Auto 2025-05-13 :[address] [place] [address] 200 /ul (missing) Platelet Count 2025-05-13 06:[address] [place] [address] 231 x1 0 3/ul (missing) Red Blood Cell Count 2025-05-13 :[address] [place] [address] 3.94 x10 6/ul (missing) Mean Corpuscular Hemoglobin 2025-05-13 06:[address] [place] [address] 31.0 pg (missing) Mean Corpuscular HGB Conc 2025-05-13 06:[address] [place] [address] 3 4.7 % (missing) Hematocrit 2025-05-13 :[address] [place] [address] 35.3 % (missing) Lymphocytes Percent Auto 2025-05-13 :[address] [place] [address] 8. 9 % (missing) Lymphocytes Absolute Auto 2025-05-13 :[address] [place] [address] 8 00 /ul (missing) Neutrophils Absolute Auto 2025-05-13 :[address] [place] [address] 8 000 /ul (missing) Neutrophils Percent Auto 2025-05-13 :[address] [place] [address] 88 .7 % (missing) Mean Corpuscular Volume 2025-05-13 :[address] [place] [address] 89. 4 fl (missing) White Blood Cell Count 2025-05-13 :[address] [place] [address] 9.0 x10 3/ul (missing) Result panel 6459 Creatinine 2025-05-13 06:[address] [place] [address] 1.02 mg/dl (missing) Chloride 2025-05-13 06:43 [facility] 100 mmol/l (missing) Sodium 2025-05-13 06:43 [facility] 131 mmol/l (missing) Carbon Dioxide 2025-05-13 06:43 [facility] 23 mm ol/l (missing) BUN Creatinine Ratio 2025-05-13 06:[address] [place] [address] 36.3 (missing) (missing ) Blood Urea Nitrogen 2025-05-13 06:[address] [place] [address] 37 mg/dl (missing) Potassium 2025-05-13 06:43 [facility] 4.7 mmol/l (missing) Glucose 2025-05-13 06:[address] [place] [address] 422 mg/dl (missing) Estimated Glomerular Filt Rate 2025-05-13 06:43 [facility] 57 ml/min Reported eGFR is based the CKD-EPI 2020 equation that does not use a race coefficient. An eGFR below 60 mL/min/1.73m2 suggests that some kidney damage has occurred, and indicative of chronic kidney disease if persisting greater than 3 months. An eGFR less than 15 is indicative of kidney failure. Calcium 2025-05-13 06:43 [facility] 8.6 mg/dl (missing) Result panel 6460 POC Glucose 2025-05-13 07:36 [facility] 494 mg/dl Delta: 249 on 05/12/25-2010 Result panel 6461 POC Glucose 2025-05-13 11:08 [facility] 468 mg/dl (missing) Result panel 6462 Nuclear medicine report 2025-05-13 11:18 [facility] (missing) (missing) (missing ) Result panel 6463 POC Glucose 2025-05-13 16:53 [facility] 273 mg/dl Delta: 468 on 05/13/25-2 Result panel 6464 Blood Culture 2025-05-14 03:26 [facility] (missing) (mi ssing) (missing) Blood Culture 2025-05-14 03:26 [facility] NO GROW TH AFTER 4 DAYS (missing) (missing) Result panel 6465 Blood Culture 2025-05-15 03:26 [facility] (missing) (mi ssing) (missing) Blood Culture 2025-05-15 03:26 [facility] NO GROW TH AFTER 5 DAYS (missing) (missing) Result panel 6466 Gross description: 2025-05-18 00:00 [facility] (missing) (missing) 30 CC, RED, HAZY Recieved in cytolyt container. Recieved 5 alcohol fixed slides in two green cap coffins. Recieved 5 stained slides in two coffins. 1 RNA vial. Expiration: Sep 04, 2026 NAHID GONZALEZ 05/18/2025 1247 Local Gross description: 2025-05-18 00:00 [facility] (missing) (missing) 30 CC, RED, HAZY Recieved in cytolyt container. Recieved 6 alcohol fixed slides in two green cap coffins. Recieved 6 stained slides in two coffins. 1 RNA vial. Expiration: Aug. NAHID GONZALEZ 05/18/2025 1244 Local Performed by: 2025-05-18 00:00 [facility] (missing) (missing) Vlad Goldberg, Rand Tacker ([facility]) Pathologist provided ICD10: 2025-05-18 00:00 [facility] (missing) (missing) E04.2 Signed out by: 2025-05-18 00:00 [facility] (missing) (missing) Millicent Chang MD, Pathologist NPI- [id number] Source: 2025-05-18 00:00 [facility] (missing) (missing) RIGHT INFERIOR NODUL DIAGNOSIS: 2025-05-18 00:00 [facility] (missing) (missing) RIGHT INFERIOR NODULE, FINE NEEDLE ASPIRATION. ADEQUATE FOR EVALUATION. FOLLICULAR GROUPS ARE PRESENT. BENIGN FOLLICULAR (GOITEROUS) NODULE (BETHESDA CATEGORY II), SEE COMMENT. COMMENT: MICROSCOPIC EXAMINATION REVEALS A MILDLY CELLULAR ASPIRATE, COMPOSED OF COLLOID, FOLLICULAR GROUPS WITHOUT SIGNIFICANT CYTOLOGIC OR ARCHITECTURAL ATYPIA, AND BACKGROUND MACROPHAGES. THESE FINDINGS SUPPORT A BENIGN FOLLICULAR (GOITEROUS) NODULE. CORRELATION WITH CLINICAL AND RADIOGRAPHIC FINDINGS IS RECOMMENDED. ACCORDING TO THE [place] REPORTING SYSTEM FOR THYROID CYTOPATHOLOGY, THE RISK OF MALIGNANCY IN THE CATEGORY 'BENIGN-CATEGORY II' IS 0-3%; THEREFORE RECOMMEND CONTINUED ULTRASOUND SURVEILLANCE WITH REPEAT FNA IF THE NODULE SIGNIFICANTLY INCREASES IN SIZE. Source: 2025-05-18 00:00 [facility] (missing) (missing) RIGHT SUPERIOR 1 DIAGNOSIS: 2025-05-18 00:00 [facility] (missing) (missing) RIGHT SUPERIOR THYROID NODULE, 1, FINE NEEDLE ASPIRATION. INCONCLUSIVE. BETHESDA CATEGORY III. ATYPIA OF UNDETERMINED SIGNIFICANCE (AUS), SEE COMMENT. COMMENT: EXAMINATION OF THE SMEARS REVEALS A CELLULAR ASPIRATE, COMPOSED OF ABUNDANT COLLOID, MACROPHAGES AND BENIGN FOLLICULAR GROUPS WITH FOCAL HURTHLE CELL CHANGES. IN ADDITION, THERE ARE RARE GROUPS WITH MILD NUCLEAR ENLARGEMENT, OVERLAPPING AND PALLOR. INTRANUCLEAR PSEUDOINCLUSIONS ARE NOT SEEN. THE RISK OF MALIGNANCY IN THE BETHESDA CATEGORY III IS 5-15%. ADDITIONAL MOLECULAR TESTING WILL BE PERFORMED ON THE SUBMITTED RNA VIAL FOR FURTHER EVALUATION. Performed by: 2025-05-18 00:00 [facility] (missing) (missing) Gurdeep Hodge, Rand Tacker ([facility]) Result panel 6467 Free T3, Triiodothyronine Free 2025-06-26 12:55 [facility] [place] 2.91 pg/ml (missing) Result panel 6468 TSH w/ Reflex to FT4 2025-06-26 13:08 [facility] 0.37 uiu/ml (missing) Free T3, Triiodothyronine Free 2025-06-26 13:08 [facility] [place] 2.91 pg/ml (missing) Result panel 6469 TSH w/ Reflex to FT4 2025-06-26 13:43 [facility] 0.37 uiu/ml (missing) Free T4, Direct Thyroxine 2025-06-26 13:43 [facility] 1 .38 ng/dl (missing) Free T3, Triiodothyronine Free 2025-06-26 13:43 [facility] 2.91 pg/ml (missing) Result panel 6470 NUCLEATED RED BLOOD CELLS AUTO 2025-07-06 04:52 [facility] 0.0 /100wbc (missing) BASOPHILS # (AUTO) 2025-07-06 04:52 [facility] 0.0 10 3/ul (missing) EOSINOPHILS # (AUTO) 2025-07-06 04:[address] [place] [address] 0.0 10 3/ul (missing) NRBC ABSOLUTE COUNT (AUTO) 2025-07-06 04:52 [facility] 0.00 x10 3/ul (missing) LYMPHOCYTES # (AUTO) 2025-07-06 04:52 [facility] 0.4 10 3/ul (missing) MONOCYTES # (AUTO) 2025-07-06 04:52 [facility] 0.7 10 3/ul (missing) BILIRUBIN,TOTAL 2025-07-06 04:52 [facility] 0.9 mg/dl As of February 2023 testing method has changed, this may include reference ranges. ALBUMIN/GLOBULIN RATIO 2025-07-06 04:52 [facility] 1.1 (missing) (missing) LACTIC ACID, VENOUS 2025-07-06 04:52 [facility] 1.5 mmol/l Y As of February 2023 testing method has changed, this may include reference ranges. CREATININE 2025-07-06 04:[address] [place] [address] 1.9 mg/dl As of February 2023 testing method has changed, this may include reference ranges. MEAN PLATELET VOLUME 2025-07-06 04:52 [facility] 10.9 fl (missing) CHLORIDE 2025-07-06 04:[address] [place] [address] 101 mmol/l As of February 2023 testing method has changed, this may include reference ranges. NEUTROPHILS # (AUTO) 2025-07-06 04:[address] [place] [address] 12.7 10 3/ul (missing) HGB - HEMOGLOBIN 2025-07-06 04:[address] [place] [address] 12.7 g/dl (missing) RED CELL DISTRIBUTION WIDTH 2025-07-06 04:52 [facility] 13.7 % (missing) WHITE BLOOD COUNT 2025-07-06 04:[address] [place] [address] 13.9 x10 3/ul (missing) SODIUM 2025-07-06 04:[address] [place] [address] 133 mmol/l (missing) ANION GAP 2025-07-06 04:[address] [place] [address] 14.0 (missing) (missing) ALT ALANINE AMINOTRANSFERASE 2025-07-06 04:[address] [place] [address] 15 iu/l As of February 2023 testing method has changed, this may include reference ranges. PLT - PLATELET COUNT 2025-07-06 04:[address] [place] [address] 170 10 3/ul (missing) CARBON DIOXIDE - CO2 2025-07-06 04:[address] [place] [address] 18 mmol/l As of February 2023 testing method has changed, this may include reference ranges. AST ASPARTATE AMINOTRANSFERASE 2025-07-06 04:[address] [place] [address] 20 iu/l As of February 2023 testing method has changed, this may include reference ranges. GFR - MDRD 2025-07-06 04:[address] [place] [address] 26 (missing) The IDMS-traceable MDRD Study Equation has been validated extensively in and populations between the ages of 18 and 70 with impaired kidney function (eGFR < 60 mL/min/1.73m2) and has shown good performance for patients with all common causes of kidney disease. Although this equation has not been validated for patients older than 70, an MDRD-derived eGFR may still be a useful tool for providers caring for patients older than 70. References: http://www.nkdep. nih.gov/lab-evalu ation/gfr/creatin ine-stand ardization, last updated October 2011. GLUCOSE 2025-07-06 04:[address] [place] [address] 299 mg/dl As of February 2023 testing method has changed, this may include reference ranges. GLOBULIN 2025-07-06 04:[address] [place] [address] 3.0 g/dl (missing) ALBUMIN 2025-07-06 04:[address] [place] [address] 3.3 g/dl As of February 2023 testing method has changed, this may include reference ranges. MEAN CORPUSCULAR HEMOGLOBIN 2025-07-06 04:52 [facility] 30.7 pg (missing) MEAN CORPUSCULAR HGB CONC 2025-07-06 04:52 [facility] 32.8 g/dl (missing) BUN - BLOOD UREA NITROGEN 2025-07-06 04:52 [facility] 33 mg/dl As of February 2023 testing method has changed, this may include reference ranges. HCT - HEMATOCRIT 2025-07-06 04:52 [facility] 38.7 % (missing) POTASSIUM 2025-07-06 04:52 [facility] 4.1 mmol/l As of February 2023 testing method has changed, this may include reference ranges. RED BLOOD COUNT 2025-07-06 04:52 [facility] 4.14 10 6/ul (missing) TOTAL PROTEIN 2025-07-06 04:52 [facility] 6.3 g/dl As of February 2023 testing method has changed, this may include reference ranges. ALKALINE PHOSPHATASE 2025-07-06 04:52 [facility] 73 iu/l As of February 2023 testing method has changed, this may include reference ranges. CALCIUM 2025-07-06 04:52 [facility] 8.5 mg/dl As of February 2023 testing method has changed, this may include reference ranges. MEAN CORPUSCULAR VOLUME 2025-07-06 04:52 [facility] 93.5 fl (missing) Social History date description facility 2025-04-10 00:00 Never smoked tobacco (finding) [facility] 2025-04-14 00:00 Never smoked tobacco (finding) [facility] 2025-04-15 00:00 Never smoked tobacco (finding) [facility] 2025-04-24 00:00 Never smoked tobacco (finding) [facility] 2025-04-30 00:00 Never smoked tobacco (finding) [facility] 2025-05-10 00:00 Never smoked tobacco (finding) [facility] 2025-05-15 00:00 Never smoked tobacco (finding) [facility] 2025-05-20 00:00 Never smoked tobacco (finding) [facility] 2025-05-29 00:00 Never smoked tobacco (finding) [facility] 2025-06-15 00:00 Never smoked tobacco (finding) [facility] 2025-06-22 00:00 Never smoked tobacco (finding) [facility] 2025-06-26 00:00 Never smoked tobacco (finding) [facility] Vital Signs date measurement value units 2025-04-10 00:00 BMI 42.4 kg/m2 2025-04-10 00:00 BP_diastolic 70 mmHg 2025-04-10 00:00 BP_systolic 120 mmHg 2025-04-10 00:00 heart_rate 87 /min 2025-04-10 00:00 height_metric 172.72 cm 2025-04-10 00:00 o2_saturation 92 % 2025-04-10 00:00 weight_metric 126.55 kg 2025-04-14 00:00 BP_diastolic 73 mmHg 2025-04-14 00:00 BP_systolic 120 mmHg 2025-04-14 00:00 heart_rate 110 /min 2025-04-14 00:00 o2_saturation 96 % 2025-04-14 00:00 respiration_rate 22 /min 2025-04-15 00:00 height_metric 172.72 cm 2025-04-15 00:00 weight_metric 131.54 kg 2025-04-19 00:00 BP_diastolic 66 mmHg 2025-04-19 00:00 BP_systolic 111 mmHg 2025-04-19 00:00 heart_rate 76 /min 2025-04-19 00:00 o2_saturation 92 % 2025-04-19 00:00 respiration_rate 17 /min 2025-04-19 00:00 temperature_standard 97.5 F 2025-04-24 00:00 BMI 42.1 kg/m2 2025-04-24 00:00 BP_diastolic 63 mmHg 2025-04-24 00:00 BP_systolic 103 mmHg 2025-04-24 00:00 heart_rate 88 /min 2025-04-24 00:00 height_metric 172.72 cm 2025-04-24 00:00 o2_saturation 96 % 2025-04-24 00:00 weight_metric 125.64 kg 2025-04-30 00:00 BMI 42.8 kg/m2 2025-04-30 00:00 BP_diastolic 65 mmHg 2025-04-30 00:00 BP_systolic 110 mmHg 2025-04-30 00:00 heart_rate 94 /min 2025-04-30 00:00 height_metric 172.72 cm 2025-04-30 00:00 o2_saturation 96 % 2025-04-30 00:00 weight_metric 127.91 kg 2025-05-09 00:00 temperature_standard 98.5 F 2025-05-10 00:00 BP_diastolic 57 mmHg 2025-05-10 00:00 BP_systolic 109 mmHg 2025-05-10 00:00 heart_rate 109 /min 2025-05-10 00:00 height_metric 172.72 cm 2025-05-10 00:00 o2_saturation 94 % 2025-05-10 00:00 respiration_rate 19 /min 2025-05-10 00:00 weight_metric 126.12 kg 2025-05-13 00:00 BP_diastolic 66 mmHg 2025-05-13 00:00 BP_systolic 138 mmHg 2025-05-13 00:00 heart_rate 95 /min 2025-05-13 00:00 o2_saturation 94 % 2025-05-13 00:00 respiration_rate 16 /min 2025-05-13 00:00 temperature_standard 97.4 F 2025-05-20 00:00 BP_diastolic 59 mmHg 2025-05-20 00:00 BP_systolic 104 mmHg 2025-05-20 00:00 heart_rate 106 /min 2025-05-20 00:00 o2_saturation 96 % 2025-05-20 00:00 weight_metric 127.45 kg 2025-05-29 00:00 BMI 42.5 kg/m2 2025-05-29 00:00 BP_diastolic 55 mmHg 2025-05-29 00:00 BP_systolic 100 mmHg 2025-05-29 00:00 heart_rate 94 /min 2025-05-29 00:00 height_metric 172.72 cm 2025-05-29 00:00 o2_saturation 97 % 2025-05-29 00:00 weight_metric 127.00 kg 2025-06-18 00:00 BMI 42.5 kg/m2 2025-06-18 00:00 heart_rate 103 /min 2025-06-18 00:00 height_metric 172.72 cm 2025-06-18 00:00 o2_saturation 96 % 2025-06-18 00:00 weight_metric 127.00 kg 2025-06-26 00:00 BMI 43.2 kg/m2 2025-06-26 00:00 BP_diastolic 58 mmHg 2025-06-26 00:00 BP_systolic 105 mmHg 2025-06-26 00:00 heart_rate 95 /min 2025-06-26 00:00 height_metric 172.72 cm 2025-06-26 00:00 o2_saturation 94 % 2025-06-26 00:00 weight_metric 128.82 kg
[2025-07-06 07:27] LABS: B. PARAPERTUSSIS- RESP PCR PAN NOT DETECTED; B. PERTUSSIS- RESP PCR PANEL NOT DETECTED; C. PNEUMONIAE- RESP PCR PANEL NOT DETECTED; CORONAVIRUS 229E-RESP PCR NOT DETECTED; CORONAVIRUS HKU1-RESP PCR NOT DETECTED; CORONAVIRUS NL63-RESP PCR NOT DETECTED; CORONAVIRUS OC43-RESP PCR NOT DETECTED; HUMAN METAPNEUMOVIRUS NOT DETECTED; INFLUENZA A- RESP PCR PANEL NOT DETECTED; INFLUENZA B - RESP PCR PANEL NOT DETECTED; M. PNEUMONIAE- RESP PCR PANEL NOT DETECTED; PARAINFLUENZA VIRUS 1 NOT DETECTED; PARAINFLUENZA VIRUS 2 NOT DETECTED; PARAINFLUENZA VIRUS 4 NOT DETECTED; RHINOVIRUS/ENTEROVIRUS NOT DETECTED; RSV- RESP PCR PANEL NOT DETECTED; SARS-CoV-2 -RESP PCR PANEL NOT DETECTED
[2025-07-06 07:56] LABS: OCCULT BLOOD,URINE SMALL (NEGATIVE)
[2025-07-06 07:57] LABS: GLUCOSE, URINE (UA) >=1000 mg/dL (NEGATIVE); KETONES,URINE (UA) 15 mg/dL (NEGATIVE)
--- NOTE | 2025-07-06 08:00 | XRAY Report ---
PROCEDURE: XR Chest 1V INDICATIONS: Sepsis TECHNIQUE: One view of the chest was acquired. COMPARISON: None. FINDINGS: Surgical changes and devices: None. Lungs and pleura: No pleural effusions or pneumothorax. No consolidation. Mediastinum: Mildly tortuous thoracic aorta. Heart size is enlarged Bones and chest wall: No suspicious bony lesions. Overlying soft tissues appear unremarkable. IMPRESSION: No acute cardiopulmonary process. Findings are concordant with preliminary interpretation provided by [facility]. Reviewed by: Charles Mo MD on 07/06/2025 7:57 AM PST Approved by: Charles Mo MD on 07/06/2025 7:57 AM PST Station ID: [id number]
[2025-07-06 08:04] LABS: CASTS, URINE 0-2 Granular Casts /LPF; SQUAMOUS EPITHELIAL CELL,UR MOD Squamous (<= Few)
--- NOTE | 2025-07-06 08:09 | CT Report ---
PROCEDURE: CT Abdomen/Pelvis WO INDICATIONS: UTI sepsis TECHNIQUE: A CT scan of the abdomen and pelvis was performed without the use of intravenous contrast. Images were recorded and evaluated at appropriate window settings. Reformats: coronal and sagittal. For radiation dose reduction, the following was used: automated exposure control, adjustment of mA and/or kV according to patient size. COMPARISON: None. FINDINGS: Image quality: Diagnostic. Lower chest: Small to moderate hiatal hernia. Bilateral lung bases are clear. Liver: No contour-deforming mass. Gallbladder: Biliary tree: No intrahepatic or extrahepatic dilation, accounting for age. Spleen: No splenomegaly. Pancreas: No pancreatic ductal dilation. Adrenals: No adrenal nodule. Kidneys and ureters: No hydronephrosis. No contour-deforming mass. Mild bilateral perinephric fat stranding is seen. Stomach, bowel and peritoneum: No gastric or small bowel dilation. No abnormal wall thickening. No pathologic free fluid. Mild to moderate fecal stasis in the colon is seen. No peritoneal free air. No abscess collection. Lymph nodes: No central or retroperitoneal adenopathy. Vessels: No infrarenal aortic aneurysm. Reproductive organs: Unremarkable. Bladder: No abnormal bladder wall thickening. No calcified bladder stones. Pelvic lymph nodes: No adenopathy by size criteria. Bones: No aggressive osseous abnormality. Other: No significant ventral or inguinal hernia. IMPRESSION: 1. No hydronephrosis or obstructing renal stone. Mild bilateral perinephric fat stranding, pyelonephritis can not be excluded. Normal-appearing urinary bladder. 2. No bowel obstruction or abnormal bowel wall thickening. Mild to moderate constipation. No free fluid of free air. Reviewed by: Charles Mo MD on 07/06/2025 8:06 AM [facility] Approved by: Charles Mo MD on 07/06/2025 8:06 AM PST Station ID: [id number]
[2025-07-06] MEDS: HYDROmorphone 1 MG/ML CARPUJECT IVP STA (10:16)
--- NOTE | 2025-07-06 13:07 | HISTORY & PHYSICAL EXAMINATION ---
Chief Complaint Chief Complaint Chief Complaint: Confusion, lethargy History of Present Illness Admitted From Admitted From:: Home History Obtained From Records Reviewed: EMR History obtained from: Patient Exam Limitations: None History of Present Illness HPI Comment/Other: Patient is a 79-year-old female with a history of recurrent UTIs, insulin- dependent diabetes mellitus, lichen sclerosus who presents with fatigue, lethargy, fevers and chills. Per patient, starting , she noticed that she was feeling more more fatigued. She then developed nausea. She had a few episodes of nonbilious, nonbloody emesis. She described it as phlegm. She has had a sore throat, as well as a mild cough as well. She states that she has had urinary incontinence since she was 22. She denies any dysuria. She does endorse some flank pain, left worse than right. She then had ongoing rigors, fevers, as well as chills all throughout the weekend. She lives at assisted living, and pressed her call light, and never checked up on her, advised her to call EMS. In the ER, she was hypotensive down to 84/64. With fluids, this increased to 101/47. She is saturating in 4% room air. She was tachypneic at 28, heart rate was 92, and she has been afebrile. Lab work showed a leukocytosis with a white count of 13.9. Her creatinine was elevated at 1.9. Her baseline appears to be between 0.8-1. She also had a high and gap metabolic acidosis with a gap of 14, and a bicarbonate level of 18. Her glucose level was elevated at 299. Her lactic acid was within normal limits. UA x 2 was contaminated, although they were both straight catheterizations. Did show moderate bacteria, urine WBC, glucosuria. CT abdomen/pelvis showed mild bilateral perinephric fat stranding, pyelonephritis can not be excluded. Past medical history includes insulin-dependent diabetes mellitus. She also had a recent stress test with a shape hand, but is unsure of the results. She has asthma, peripheral neuropathy, fibromyalgia, hypertension. Medications include Seroquel, Pantoloc, metformin, lisinopril, insulin Lantus, glipizide, Jardiance, duloxetine, atorvastatin, amlodipine, as well as Breztri inhlaer twice a day. Allergies include penicillin, which resulted in anaphylaxis. Surgical history includes cholecystectomy, appendectomy, right total knee replacement, hysterectomy. She denies any alcohol, tobacco, recreational drug use. She lives in assisted living. All her children and grandchildren are on the [facility]. She lost her about 9 years ago. She grew up in [place]. She ambulates with a walker. Due to continued hypotension, infection,uncontrolled diabetes, sepsis, patient will likely require at least a 2 midnight stay, and as such will be made inpatient. Meds/Allgy Home Medications Ambulatory Orders Medication Instructions Recorded Confirmed atorvastatin 40 mg tablet 40 mg PO QPM 11/10/18 insulin glargine 100 unit/mL (3 SQ BID 11/10/18 mL) subcutaneous pen (Lantus Solostar U-100 Insulin) meloxicam 15 mg tablet 15 mg PO QPM 11/10/18 albuterol sulfate 90 mcg/actuation 1 - 2 puff inhalati on Q4HR PRN 07/29/22 07/06/25 aerosol inhaler (Ventolin HFA) Shortness Of Air/Wheezi ng #1 ea metformin 500 mg 24 hr 500 mg PO BID 07/29/2207/06 tablet,extended release (gastric retention) propranolol 10 mg tablet 20 mg PO DAILY 07/29/2206/20 amlodipine 10 mg tablet 10 mg PO DAILY 07/06/2506/20 budesonide 160 mcg-glycopyr 9 2 inh inhalation BID 07/06/25 mcg-formot 4.8 mcg/actuation HFA inhaler (Breztri Aerosphere) duloxetine 60 mg capsule,delayed 60 mg PO DAILY 07/06/25 release empagliflozin 10 mg tablet 10 mg PO DAILY 07/06/25 (Jardiance) glipizide 10 mg tablet 10 mg PO DAILY 07/06/2506/20 lisinopril 40 mg tablet 40 mg PO DAILY 07/06/2506/20 vitamins with calcium 1 tab PO DAILY 07/06/25 07/06/25 no.72-iron 27 mg-folic acid 1 mg tablet ( Vitamins Plus Low Iron) quetiapine 50 mg tablet 50 mg PO HS 07/06/25 5 Allergies Allergies Allergy/AdvReac Type Severity Reaction Status Date / Time Penicillins Allergy Anaphylaxis Verified 07/06/25 07:00 tramadol Allergy Unknown Verified 07/06/25 07:00 morphine AdvReac Unknown Verified 07/06/25 07:00 [facility] Active Problems All Active Problems (Updated 07/06/25 @ 15:50 by Florina Ozuna MD) Asthma (Chronic) Fibromyalgia (Acute) Insulin dependent diabetes mellitus (Acute) Acute kidney injury (Acute) Acute pyelonephritis (Acute) Sepsis (Acute) UTI (urinary tract infection) (Acute) Fatigue (Acute) Elevated blood pressure reading (Acute) Blood glucose elevated (Acute) Social History Social History Do you feel safe in your home environment?: Yes History of physical, verbal, emotional, or financial abuse?: No ETOH Use: Frequency: Occasional POLST Patient has POLST: Yes POLST on file?: Yes POLST CPR Status: Attempt Resuscitation (CPR) Level of Medical Intervention: Full Treatment Review of Systems Constitutional Reports: Fatigue, Fever, Chills, Malaise, Weakness and Poor appetite Eyes Denies: Pain, Irritation, Blurry vision, Vision loss or Diplopia Ears, nose, mouth, and throat Denies: Ear pain, Hearing loss, Tinnitus, Nose bleeds or Nasal discharge Cardiovascular Reports: edema; Denies: Irregular heart rate, chest pain, palpitations, Syncope or shortness of breath with exertion Respiratory Reports: Cough; Denies: Shortness of breath or Sputum production Gastrointestinal Reports: Nausea, Vomiting and Diarrhea; Denies: Abdominal pain, Abdominal distention, Heartburn or Constipation Genitourinary Reports: Urinary incontinence; Denies: Painful urination, Urinary frequency or Urinary urgency Musculoskeletal Denies: Back pain, Extremity pain, Extremity swelling or Joint pain Integumentary/Breast Denies: Rash, Itching, Dryness, Redness or Skin pain Neurological Reports: General weakness; Denies: Headache, Weakness in extremities, Numbness in extremities, Abnormal gait or Dizziness Psychiatric Denies: Depression, Anxiety, Mood swings or Panic attacks Endocrine Reports: Fatigue; Denies: Excessive urination or Excessive thirst Hematologic/Lymphatic Denies: Anemia, Easy bruising or Easy bleeding Prior Level of Functionality: Lives at assisted living. Ambulates with walker. Exam Exam Vital Signs: Vital Signs x48h Temp Pulse Resp BP Pulse Ox O2 Flow Rate 07/06/25 13:28 97.7 F 84 14 106/51 L 95 07/06/25 13:24 97.7 F 07/06/25 12:28 77 18 102/52 L 96 07/06/25 11:50 97.6 F L 79 16 103/62 96 07/06/25 11:00 80 18 100/55 L 95 1 07/06/25 10:00 84 16 105/53 L 96 1 07/06/25 09:00 84 16 93/55 L 96 1 07/06/25 08:15 84 16 105/54 L 96 1 07/06/25 08:01 76 21 102/60 96 07/06/25 07:15 85 18 89/56 L 98 1 07/06/25 06:45 85 90/57 L 94 2 07/06/25 06:40 97.5 F L 85 27 H 87/58 L 98 2 07/06/25 05:59 96.6 F L 90 25 H 90/53 L 94 2 Constitutional normal general appearance, no apparent distress, abnormal body habitus (overweight) and no limitations HENMT normocephalic, head/scalp atraumatic and hearing grossly normal bilaterally Eyes PERRL, EOMs intact bilaterally and conjunctivae normal Chest inspection of chest normal Respiratory breath sounds equal bilaterally, normal respiratory effort, clear to auscultation bilaterally, no wheezes, no rales and no retractions Cardiovascular normal heart rate noted, regular rhythm noted, no gallop, no rub and no murmur Gastrointestinal abdomen normal to inspection, abdomen soft to palpation, nontender to palpation and normoactive bowel sounds Genitourinary CVA tenderness noted and bladder normal to palpation Bilateral flank tenderness, left worse than right. No suprapubic tenderness noted. Extremities normal to inspection, normal to palpation, no tenderness and full ROM Mild nonpitting edema noted up to the knees Neurology no movement abnormality noted and no focal motor deficit noted Psychiatry mental status grossly normal, oriented x3, thought process normal, cooperative and affect normal Skin skin color normal, no rash and no lesions Sepsis Event Note (H) Evaluation Possible source of Sepsis: positive Genitourinary Conclusion/Plan Problem List (1) Sepsis: Qualifiers: Sepsis type: sepsis due to unspecified organism Sepsis acute organ dysfunction status: with acute organ dysfunction Severe sepsis acute organ dysfunction type: acute renal failure Acute renal failure type: unspecified S lan sepsis shock status: without septic shock Qualified Code(s): A41.9 - Sepsis, unspecified organism; R65.20 - Severe sepsis without septic shock; N17.9 - Acute kidney failure, unspecified (2) Acute pyelonephritis: Plan: The following assessment is for the above two diagnoses: Patient presents with tachypnea, leukocytosis, subjective rigors and chills, as well as altered mental status (confusion and lethargy). Source is likely urinary. UA was contaminated, but does show bacteriuria, WBCs. She also has a history of frequent urinary tract infections in the past year. Abdomen/pelvis CT shows bilateral fat stranding around kidneys, suspicious for pyelonephritis. Previous urine susceptibilities show E. coli, sensitive to Rocephin. In the ER, she received aztreonam, Flagyl, vancomycin. Will continue IV Rocephin. Blood cultures, urine cultures have been ordered, pending. Continue gentle IV fluid rehydration with LR at 100 cc/h. (3) Acute kidney injury: Plan: Likely prerenal due to decreased p.o. intake versus ATN due to sepsis. Continue gentle IV fluid rehydration, trend BMP daily. CT abdomen/pelvis does not show any signs of any obstruction. Hold lisinopril at this time. (4) Insulin dependent diabetes mellitus: Plan: Continue insulin Lantus 30 units twice a day, as well as sliding scale insulin. Hold oral antihyperglycemics at this time. (5) Fibromyalgia: Plan: Continue duloxetine. (6) Asthma: Plan: Continue DuoNebs as needed. Qualifiers: Asthma severity: unspecified severity Asthma persistence: unspecified Asthma complication type: unspecified Qualified Code(s): J45.909 - Unspecified asthma, uncomplicated Lab Results Lab results reviewed: Yes 07/06/25 04:52 07/06/25 04:52 Diagnostic Imaging Results Diagnostic Imaging Results: positive Final report reviewed Core Measures Anticipated LOS I expect patient to be DC'd or transferred within 96 hours.: Yes Issues Hospital Issues and Management Plan: None anticipated. DVT/VTE - Prophylaxis VTE/DVT Device ordered at admit?: Yes VTE/DVT Prophylaxis med ordered at admit?: Yes Stroke - Rehab Assessment Rehab services assessment to be ordered?: No AMI - Statin at Admit Aspirin Prescribed on Admit: No
[2025-07-06] MEDS ORDERED: SODIUM CHLORIDE FLUSH 0.9% 10 ML SYRINGE IVP PRN (13:49)
[2025-07-06] MEDS: LACTATED RINGERS 1,000 ML IV SCH (14:35)
[2025-07-06] MEDS: ONDANSETRON 4 MG/2 ML VIAL IVP PRN (15:04)
--- NOTE | 2025-07-06 15:07 | PHARMACY PROGRESS NOTE ---
Best Possible Medication History Admit Date and Time: 07/06/25 [id number] Home Medications Medication Instructions Recorded Confirmed Type atorvastatin 40 mg tablet 40 mg PO QPM 11/10/18 History insulin glargine 100 unit/mL (3 SQ BID 11/10/18 History mL) subcutaneous pen (Lantus Solostar U-100 Insulin) meloxicam 15 mg tablet 15 mg PO QPM 11/10/18 History albuterol sulfate 90 mcg/actuation 1 - 2 puff inhalati on Q4HR PRN 07/29/22 07/06/25 Rx aerosol inhaler (Ventolin HFA) Shortness Of Air/Wheezi ng #1 ea metformin 500 mg 24 hr 500 mg PO BID 07/29/2207/06 History tablet,extended release (gastric retention) propranolol 10 mg tablet 20 mg PO DAILY 07/29/2206/20 History amlodipine 10 mg tablet 10 mg PO DAILY 07/06/2506/20 History budesonide 160 mcg-glycopyr 9 2 inh inhalation BID 07/06/25 History mcg-formot 4.8 mcg/actuation HFA inhaler (Breztri Aerosphere) duloxetine 60 mg capsule,delayed 60 mg PO DAILY 07/06/25 History release empagliflozin 10 mg tablet 10 mg PO DAILY 07/06/25 History (Jardiance) glipizide 10 mg tablet 10 mg PO DAILY 07/06/2506/20 History lisinopril 40 mg tablet 40 mg PO DAILY 07/06/2506/20 History vitamins with calcium 1 tab PO DAILY 07/06/25 07/06/25 History no.72-iron 27 mg-folic acid 1 mg tablet ( Vitamins Plus Low Iron) quetiapine 50 mg tablet 50 mg PO HS 07/06/25 5 History Processed by: Pharmacy Medications reviewed in ED?: Yes Medication History completed: Yes Patient Interview: Completed Secondary Source(s): Insurance records [facility] Statement: As the person ultimately responsible for medication therapy, providers are able to order a medication from an existing home medication list in [facility] via the "Reconcile Routine" prior to Confirmation of that medication by pharmacy retail support specialist. Such practice is discouraged except when the physician, in their clinical judgment, deems that a medical need exists for a medication without regard to previous use.
--- OUTSIDE RECORDS SUMMARY | 2025-07-06 15:15 | EXTERNAL MEDICAL SUMMARY RPT | Continuity of Care Document ---
Author Organization [place] Address [address] [address] Phone Care Team Providers Care Bedspread Folder Name Role Phone Unavailable Unavailable Unavailable Tigist Pelayo Unavailable Unavailable Lorena Allen Unavailable Unavailable Allergies and Intolerances date description facility reaction severity 2025-04-10 07:43:15 [facility] (no reactio n) (no severity) 2025-04-15 17:13:13 [facility] (no reactio n) (no severity) 2025-04-24 07:04:13 [facility] (no reactio n) (no severity) 2025-04-30 07:35:44 [facility] (no reactio n) (no severity) 2025-05-20 06:56:29 [facility] (no reactio n) (no severity) 2025-05-29 07:45:58 [facility] (no reactio n) (no severity) 2025-06-18 14:23:54 [facility] (no reactio n) (no severity) 2025-06-18 15:23:54 [facility] (no reactio n) (no severity) 2025-06-26 07:42:29 [facility] (no reactio n) (no severity) Medications date description facility 2025-05-28 00:00 Budesonide-Formoterol [facility] 2025-05-29 00:00 Budesonide-Formoterol [facility] 2025-05-14 00:00 Ipratropium-Albuterol [facility] 2025-05-15 00:00 Ipratropium-Albuterol [facility] 2025-05-15 00:00 [facility] 2025-06-03 00:00 [facility] 2025-05-28 00:00 [facility] 2025-05-29 00:00 [facility] 2025-06-26 00:00 [facility]:00 Fluticasone Propionate [facility] 2025-04-30 00:00 Fluticasone Propionate [facility] 2025-06-11 00:00 Fluticasone Propionate [facility] 2025-04-18 00:00 [facility] 2025-04-19 00:00 [facility]fl[facility] 2025-05-15 00:[address] [facility] 2025-04-16 00:[address] [facility] 2025-04-17 00:[address] [facility] 2025-05-15 00:[address] [facility] 2025-05-20 [facility] 00:00 Kpyfbdxtmw-Xyajuxgd-Evwwmiuuzz [facility] 2025-05-12 00:00 Insulin [facility] 2025-05-13 00:00 [facility]20 00:00 Insulin [facility] 2025-04-16 00:00 [facility] 2025-04-17 00:00 [facility] 2025-04-15 [facility]:00 [facility] 2025-04-10 00:00 Tirzepatiwy (Weight Loss) [facility] 2025-04-10 00:00 Tirzepatiwy (Weight Loss) [facility] 2025-04-23 00:00 [facility] 2025-04-24 00:00 [facility] 2025-06-17 00:00 [facility]epel[facility]Ekko [facility] 2025-05-[address] [facility] 2025-05-15 00:[address] [facility] 2025-04-10 00:00 [facility] 2025-04-10 00:[facility] 2025-05-15 00:00 [facility] 2025-05-09 00:00 [facility] 2025-05-12 00:[address] [facility] 2025-05-[address] [facility] 2025-04-18 00:[facility]25-04[facility]19 [facility]:00 [facility] 2025-05-15 00:00 [facility] 2025-04-18 00:00 [facility]ulin [facility]ine [facility] 2025-04-19 00:00 Insulin [facility] 2025-05-12 00:00 Insulin [facility] 2025-05-13 00:00 Insulin Gl[facility] 2025-05-20 00:00 Insulin [facility] 2025-06-18 00:00 [facility]25-06-26 [facility]05[facility]15 [facility] 2025-04-18 00:00 Polyethylene Glycol [address] [place] [address] 2025-04-19 00:[address] Polyethylene [address] [place] [address] 2025-05-15 00:00 Polyethylene Glycol [address] [place] [address] 2025-04-18 00:00 [facility]:[address] [facility]25-04-15 00:00 [facility] Problems date description facility 2025-04-07 10:54 Urinary tract infection, site n ot specified [facility] 2025-04-08 08:22 Urinary tract infection, site n ot specified [facility] 2025-04-08 08:24 [facility] 2025-04-08 10:51 Urinary tract infection, site n ot specified [facility] 2025-04-08 11:04 Urinary tract infection, site n ot specified [facility] 2025-04-15 14:31 Urinary tract infection, site n ot specified [facility] 2025-04-16 00:00 Stage [address] [facility] 2025-04-16 00:00 Sedentary lifestyle [facility] 2025-04-16 08:39 Urinary tract infection, site n ot specified [facility] 2025-04-16 12:34 Urinary tract infection, site n ot specified [facility] 2025-04-16 13:04 Urinary tract infection, site n ot specified [facility] 2025-04-17 13:55 Urinary tract infection, site n ot specified [facility] 2025-04-18 15:08 Urinary tract infection, site n ot specified [facility] 2025-04-19 10:55 Urinary tract infection, site n ot specified [facility] 2025-04-19 15:32 Urinary tract infection, site n ot specified [facility] 2025-04-21 09:56 Urinary tract infection, site n ot specified [facility] 2025-04-21 12:13 Urinary tract infection, site n ot specified [facility] 2025-04-22 07:05 Urinary tract infection, site n ot specified [facility] 2025-04-23 11:54 Weakness [facility] 2025-04-24 07:05 Urinary tract infection, site n ot specified [facility] 2025-04-24 18:31 Urinary tract infection, site n ot specified [facility] 2025-04-30 07:36 Urinary tract infection, site n ot specified [facility] 2025-05-06 12:08 Essential (primary) hypertensio [facility] 2025-05-06 12:08 Chronic kidney disease, unspeci fied [facility] 2025-05-06 12:08 Other forms of dyspnea [facility] 2025-05-06 12:[address] [facility] 2025-05-06 12:08 Other specified abnormal findin gs of blood chemistry [facility] 2025-05-06 12:08 Personal history of other endocrine, nutritional and metabol [facility] 2025-05-06 12:08 Other specified pers onal risk factors, not elsewhere classif [facility] 2025-05-09 00:00 Upper respiratory tract infecti on [facility] 2025-05-09 00:00 Exacerbation of asthma [facility] 2025-05-[facility] [address] [facility] 2025-05-10 00:[address] [facility] 2025-05-10 00:[address] [facility] 2025-05-10 00:[address] [facility] 2025-05-10 00:00 History of diabetes mellitus Is [facility] 2025-05-10 11:18 Sepsis, unspecified organism Is [facility] 2025-05-10 11:41 Sepsis, unspecified organism Is [facility] 2025-05-11 07:42 Sepsis, unspecified organism Is [facility] 2025-05-13 16:32 Sepsis, unspecified organism Is [facility] 2025-05-14 08:54 Sepsis, unspecified organism Is [facility] 2025-05-15 08:07 Nontoxic multinodular goiter [facility] 2025-05-15 11:06 Shortness of breath [facility] 2025-05-15 15:25 Major depressive disorder, recu rrent, [facility] 2025-05-15 15:25 Post-traumatic stress disorder, unspecified [facility] 2025-05-20 00:[address] [facility] 2025-05-20 00:[address] [facility] 2025-05-20 00:00 Shortness of breath [facility] 2025-05-20 06:58 Major depressive disorder, recu rrent, [facility] 2025-05-20 06:58 Post-traumatic stress disorder, unspecified 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 2025-06-03 14:[address] [facility] 2025-06-03 14:12 Shortness of breath [facility] 2025-06-03 14:[address] [facility] 2025-06-03 14:12 Other specified pers onal risk factors, not elsewhere classif [facility] 2025-06-18 00:00 Severe persistent asthma with e xacerbation [facility] 2025-06-26 07:44 Major depressive disorder, recu rrent, [facility] 2025-06-26 07:44 Post-traumatic stress disorder, [facility] Procedures date description facility 2025-05-06 00:[address] [facility] 2025-05-10 00:00 NM SPECT imaging ryan card perfus w multi studies incl rest, stress and redistrib [facility] 2025-05-15 00:00 Imaging guided fine needle biop sy of thyroid [facility] 2025-04-15 00:[address] [facility] 2025-05-10 00:[address] [facility] 2025-04-15 00:00 IVP (intravenous pyelogram) [facility] 2025-04-16 00:00 IVP (intravenous pyelogram) [facility] 2025-04-15 00:00 X-ray of chest, single view [facility] 2025-05-09 00:00 X-ray of chest, single view [facility] 2025-05-06 00:00 Complete Doppler echocardiograp [facility] 2025-05-10 00:00 Computed tomography angiography of chest with contrast for pulmonary embolus [facility] 2025-05-10 00:00 CT abdomen pelvis w con [facility] Results/Labs test date facility value unit notes Result panel 1 Specimen collection (procedure) (no date) [facility] (missing) (missing) (missing) Result panel 2 Specimen collection (procedure) (no date) [facility] (missing) (missing) (missing) Result panel 3 Specimen collection (procedure) (no date) [facility] (missing) (missing) (missing) Result panel 4 Specimen collection (procedure) (no date) [facility] (missing) (missing) (missing) Result panel 5 Specimen collection (procedure) (no date) [facility] (missing) (missing) (missing) Result panel 6 Specimen collection (procedure) (no date) [facility] (missing) (missing) (missing) Result panel 7 Specimen collection (procedure) (no date) [facility] (missing) (missing) (missing) Result panel 8 Specimen collection (procedure) (no date) [facility] (missing) (missing) (missing) Result panel 9 Specimen collection (procedure) (no date) [facility] (missing) (missing) (missing) Result panel 10 Specimen collection (procedure) (no date) [facility] (missing) (missing) (missing) Result panel 11 Specimen collection (procedure) (no date) [facility] (missing) (missing) (missing) Result panel 12 Specimen collection (procedure) (no date) [facility] (missing) (missing) (missing) Result panel 13 Specimen collection (procedure) (no date) [facility] (missing) (missing) (missing) Result panel 14 Specimen collection (procedure) (no date) [facility] (missing) (missing) (missing) Result panel 15 Specimen collection (procedure) (no date) [facility] (missing) (missing) (missing) Result panel 16 Specimen collection (procedure) (no date) [facility] (missing) (missing) (missing) Result panel 17 Specimen collection (procedure) (no date) [facility] (missing) (missing) (missing) Result panel 18 Specimen collection (procedure) (no date) [facility] (missing) (missing) (missing) Result panel 19 Specimen collection (procedure) (no date) [facility] (missing) (missing) (missing) Result panel 20 Specimen collection (procedure) (no date) [facility] (missing) (missing) (missing) Result panel 21 Specimen collection (procedure) (no date) [facility] (missing) (missing) (missing) Result panel 22 Specimen collection (procedure) (no date) [facility] (missing) (missing) (missing) Result panel 23 Specimen collection (procedure) (no date) [facility] (missing) (missing) (missing) Result panel 24 Specimen collection (procedure) (no date) [facility] (missing) (missing) (missing) Result panel 25 Specimen collection (procedure) (no date) [facility] (missing) (missing) (missing) Result panel 26 Specimen collection (procedure) (no date) [facility] (missing) (missing) (missing) Result panel 27 Specimen collection (procedure) (no date) [facility] (missing) (missing) (missing) Result panel 28 Specimen collection (procedure) (no date) [facility] (missing) (missing) (missing) Result panel 29 Specimen collection (procedure) (no date) [facility] (missing) (missing) (missing) Result panel 30 Specimen collection (procedure) (no date) [facility] (missing) (missing) (missing) Result panel 31 Specimen collection (procedure) (no date) [facility] (missing) (missing) (missing) Result panel 32 Specimen collection (procedure) (no date) [facility] (missing) (missing) (missing) Result panel 33 Specimen collection (procedure) (no date) [facility] (missing) (missing) (missing) Result panel 34 Specimen collection (procedure) (no date) [facility] (missing) (missing) (missing) Result panel 35 Specimen collection (procedure) (no date) [facility] (missing) (missing) (missing) Result panel 36 Specimen collection (procedure) (no date) [facility] (missing) (missing) (missing) Result panel 37 Specimen collection (procedure) (no date) [facility] (missing) (missing) (missing) Result panel 38 Specimen collection (procedure) (no date) [facility] (missing) (missing) (missing) Result panel 39 Specimen collection (procedure) (no date) [facility] (missing) (missing) (missing) Result panel 40 Specimen collection (procedure) (no date) [facility] (missing) (missing) (missing) Result panel 41 Specimen collection (procedure) (no date) [facility] (missing) (missing) (missing) Result panel 42 Specimen collection (procedure) (no date) [facility] (missing) (missing) (missing) Result panel 43 Specimen collection (procedure) (no date) [facility] (missing) (missing) (missing) Result panel 44 Specimen collection (procedure) (no date) [facility] (missing) (missing) (missing) Result panel 45 Specimen collection (procedure) (no date) [facility] (missing) (missing) (missing) Result panel 46 Specimen collection (procedure) (no date) [facility] (missing) (missing) (missing) Result panel 47 Specimen collection (procedure) (no date) [facility] (missing) (missing) (missing) Result panel 48 Specimen collection (procedure) (no date) [facility] (missing) (missing) (missing) Result panel 49 Specimen collection (procedure) (no date) [facility] (missing) (missing) (missing) Result panel 50 Specimen collection (procedure) (no date) [facility] (missing) (missing) (missing) Result panel 51 Specimen collection (procedure) (no date) [facility] (missing) (missing) (missing) Result panel 52 Specimen collection (procedure) (no date) [facility] (missing) (missing) (missing) Result panel 53 Specimen collection (procedure) (no date) [facility] (missing) (missing) (missing) Result panel 54 Specimen collection (procedure) (no date) [facility] (missing) (missing) (missing) Result panel 55 Specimen collection (procedure) (no date) [facility] (missing) (missing) (missing) Result panel 56 Specimen collection (procedure) (no date) [facility] (missing) (missing) (missing) Result panel 57 Specimen collection (procedure) (no date) [facility] (missing) (missing) (missing) Result panel 58 Specimen collection (procedure) (no date) [facility] (missing) (missing) (missing) Result panel 59 Specimen collection (procedure) (no date) [facility] (missing) (missing) (missing) Result panel 60 Specimen collection (procedure) (no date) [facility] (missing) (missing) (missing) Result panel 61 Specimen collection (procedure) (no date) [facility] (missing) (missing) (missing) Result panel 62 Specimen collection (procedure) (no date) [facility] (missing) (missing) (missing) Result panel 63 Specimen collection (procedure) (no date) [facility] (missing) (missing) (missing) Result panel 64 Specimen collection (procedure) (no date) [facility] (missing) (missing) (missing) Result panel 65 Specimen collection (procedure) (no date) [facility] (missing) (missing) (missing) Result panel 66 Specimen collection (procedure) (no date) [facility] (missing) (missing) (missing) Result panel 67 Specimen collection (procedure) (no date) [facility] (missing) (missing) (missing) Result panel 68 Specimen collection (procedure) (no date) [facility] (missing) (missing) (missing) Result panel 69 Specimen collection (procedure) (no date) [facility] (missing) (missing) (missing) Result panel 70 Specimen collection (procedure) (no date) [facility] (missing) (missing) (missing) Result panel 71 Specimen collection (procedure) (no date) [facility] (missing) (missing) (missing) Result panel 72 Specimen collection (procedure) (no date) [facility] (missing) (missing) (missing) Result panel 73 Specimen collection (procedure) (no date) [facility] (missing) (missing) (missing) Result panel 74 Specimen collection (procedure) (no date) [facility] (missing) (missing) (missing) Result panel 75 Specimen collection (procedure) (no date) [facility] (missing) (missing) (missing) Result panel 76 Specimen collection (procedure) (no date) [facility] (missing) (missing) (missing) Result panel 77 Specimen collection (procedure) (no date) [facility] (missing) (missing) (missing) Result panel 78 Specimen collection (procedure) (no date) [facility] (missing) (missing) (missing) Result panel 79 Specimen collection (procedure) (no date) [facility] (missing) (missing) (missing) Result panel 80 Specimen collection (procedure) (no date) [facility] (missing) (missing) (missing) Result panel 81 Specimen collection (procedure) (no date) [facility] (missing) (missing) (missing) Result panel 82 Specimen collection (procedure) (no date) [facility] (missing) (missing) (missing) Result panel 83 Specimen collection (procedure) (no date) [facility] (missing) (missing) (missing) Result panel 84 Specimen collection (procedure) (no date) [facility] (missing) (missing) (missing) Result panel 85 Specimen collection (procedure) (no date) [facility] (missing) (missing) (missing) Result panel 86 Specimen collection (procedure) (no date) [facility] (missing) (missing) (missing) Result panel 87 Specimen collection (procedure) (no date) [facility] (missing) (missing) (missing) Result panel 88 Specimen collection (procedure) (no date) [facility] (missing) (missing) (missing) Result panel 89 Specimen collection (procedure) (no date) [facility] (missing) (missing) (missing) Result panel 90 Specimen collection (procedure) (no date) [facility] (missing) (missing) (missing) Result panel 91 Specimen collection (procedure) (no date) [facility] (missing) (missing) (missing) Result panel 92 Specimen collection (procedure) (no date) [facility] (missing) (missing) (missing) Result panel 93 Specimen collection (procedure) (no date) [facility] (missing) (missing) (missing) Result panel 94 Specimen collection (procedure) (no date) [facility] (missing) (missing) (missing) Result panel 95 Specimen collection (procedure) (no date) [facility] (missing) (missing) (missing) Result panel 96 Specimen collection (procedure) (no date) [facility] (missing) (missing) (missing) Result panel 97 Specimen collection (procedure) (no date) [facility] (missing) (missing) (missing) Result panel 98 Specimen collection (procedure) (no date) [facility] (missing) (missing) (missing) Result panel 99 Specimen collection (procedure) (no date) [facility] (missing) (missing) (missing) Result panel 100 Specimen collection (procedure) (no date) [facility] (missing) (missing) (missing) Result panel 101 Specimen collection (procedure) (no date) [facility] (missing) (missing) (missing) Result panel 102 Specimen collection (procedure) (no date) [facility] (missing) (missing) (missing) Result panel 103 Specimen collection (procedure) (no date) [facility] (missing) (missing) (missing) Result panel 104 Specimen collection (procedure) (no date) [facility] (missing) (missing) (missing) Result panel 105 Specimen collection (procedure) (no date) [facility] (missing) (missing) (missing) Result panel 106 Specimen collection (procedure) (no date) [facility] (missing) (missing) (missing) Result panel 107 Specimen collection (procedure) (no date) [facility] (missing) (missing) (missing) Result panel 108 Specimen collection (procedure) (no date) [facility] (missing) (missing) (missing) Result panel 109 Specimen collection (procedure) (no date) [facility] (missing) (missing) (missing) Result panel 110 Specimen collection (procedure) (no date) [facility] (missing) (missing) (missing) Result panel 111 Specimen collection (procedure) (no date) [facility] (missing) (missing) (missing) Result panel 112 Specimen collection (procedure) (no date) [facility] (missing) (missing) (missing) Result panel 113 Specimen collection (procedure) (no date) [facility] (missing) (missing) (missing) Result panel 114 Specimen collection (procedure) (no date) [facility] (missing) (missing) (missing) Result panel 115 Specimen collection (procedure) (no date) [facility] (missing) (missing) (missing) Result panel 116 Specimen collection (procedure) (no date) [facility] (missing) (missing) (missing) Result panel 117 Specimen collection (procedure) (no date) [facility] (missing) (missing) (missing) Result panel 118 Specimen collection (procedure) (no date) [facility] (missing) (missing) (missing) Result panel 119 Specimen collection (procedure) (no date) [facility] (missing) (missing) (missing) Result panel 120 Specimen collection (procedure) (no date) [facility] (missing) (missing) (missing) Result panel 121 Specimen collection (procedure) (no date) [facility] (missing) (missing) (missing) Result panel 122 Specimen collection (procedure) (no date) [facility] (missing) (missing) (missing) Result panel 123 Specimen collection (procedure) (no date) [facility] (missing) (missing) (missing) Result panel 124 Specimen collection (procedure) (no date) [facility] (missing) (missing) (missing) Result panel 125 Specimen collection (procedure) (no date) [facility] (missing) (missing) (missing) Result panel 126 Specimen collection (procedure) (no date) [facility] (missing) (missing) (missing) Result panel 127 Specimen collection (procedure) (no date) [facility] (missing) (missing) (missing) Result panel 128 Specimen collection (procedure) (no date) [facility] (missing) (missing) (missing) Result panel 129 Specimen collection (procedure) (no date) [facility] (missing) (missing) (missing) Result panel 130 Specimen collection (procedure) (no date) [facility] (missing) (missing) (missing) Result panel 131 Specimen collection (procedure) (no date) [facility] (missing) (missing) (missing) Result panel 132 Specimen collection (procedure) (no date) [facility] (missing) (missing) (missing) Result panel 133 Specimen collection (procedure) (no date) [facility] (missing) (missing) (missing) Result panel 134 Specimen collection (procedure) (no date) [facility] [facility] (missing[facility] (missing) Result panel 135 Specimen collection (procedure) (no date) [facility] (missing) (missing) (missing) Result panel 136 Specimen collection (procedure) (no date) [facility] (missing) (missing) (missing) Result panel 137 Specimen collection (procedure) (no date) [facility] (missing) (missing) (missing) Result panel 138 Specimen collection (procedure) (no date) [facility] (missing) (missing) (missing) Result panel 139 Specimen collection (procedure) (no date) [facility] (missing) (missing) (missing) Result panel 140 Specimen collection (procedure) (no date) [facility] (missing) (missing) (missing) Result panel 141 Specimen collection (procedure) (no date) [facility] (missing) (missing) (missing) Result panel 142 Specimen collection (procedure) (no date) [facility] (missing) (missing) (missing) Result panel 143 Specimen collection (procedure) (no date) [facility] (missing) (missing) (missing) Result panel 144 Specimen collection (procedure) (no date) [facility] (missing) (missing) (missing) Result panel 145 Specimen collection (procedure) (no date) [facility] (missing) (missing) (missing) Result panel 146 Specimen collection (procedure) (no date) [facility] (missing) (missing) (missing) Result panel 147 Specimen collection (procedure) (no date) [facility] (missing) (missing) (missing) Result panel 148 Specimen collection (procedure) (no date) [facility] (missing) (missing) (missing) Result panel 149 Specimen collection (procedure) (no date) [facility] (missing) (missing) (missing) Result panel 150 Specimen collection (procedure) (no date) [facility] (missing) (missing) (missing) Result panel 151 Specimen collection (procedure) (no date) [facility] (missing) (missing) (missing) Result panel 152 Specimen collection (procedure) (no date) [facility] (missing) (missing) (missing) Result panel 153 Specimen collection (procedure) (no date) [facility] (missing) (missing) (missing) Result panel 154 Specimen collection (procedure) (no date) [facility] (missing) (missing) (missing) Result panel 155 Specimen collection (procedure) (no date) [facility] (missing) (missing) (missing) Result panel 156 Specimen collection (procedure) (no date) [facility] (missing) (missing) (missing) Result panel 157 Specimen collection (procedure) (no date) [facility] (missing) (missing) (missing) Result panel 158 Specimen collection (procedure) (no date) [facility] (missing) (missing) (missing) Result panel 159 Specimen collection (procedure) (no date) [facility] (missing) (missing) (missing) Result panel 160 Specimen collection (procedure) (no date) [facility] (missing) (missing) (missing) Result panel 161 Specimen collection (procedure) (no date) [facility] (missing) (missing) (missing) Result panel 162 Specimen collection (procedure) (no date) [facility] (missing) (missing) (missing) Result panel 163 Specimen collection (procedure) (no date) [facility] (missing) (missing) (missing) Result panel 164 Specimen collection (procedure) (no date) [facility] (missing) (missing) (missing) Result panel 165 Specimen collection (procedure) (no date) [facility] (missing) (missing) (missing) Result panel 166 Specimen collection (procedure) (no date) [facility] (missing) (missing) (missing) Result panel 167 Specimen collection (procedure) (no date) [facility] (missing) (missing) (missing) Result panel 168 Specimen collection (procedure) (no date) [facility] (missing) (missing) (missing) Result panel 169 Specimen collection (procedure) (no date) [facility] (missing) (missing) (missing) Result panel 170 Specimen collection (procedure) (no date) [facility] (missing) (missing) (missing) Result panel 171 Specimen collection (procedure) (no date) [facility] (missing) (missing) (missing) Result panel 172 Specimen collection (procedure) (no date) [facility] (missing) (missing) (missing) Result panel 173 Specimen collection (procedure) (no date) [facility] (missing) (missing) (missing) Result panel 174 Specimen collection (procedure) (no date) [facility] (missing) (missing) (missing) Result panel 175 Specimen collection (procedure) (no date) [facility] (missing) (missing) (missing) Result panel 176 Specimen collection (procedure) (no date) [facility] (missing) (missing) (missing) Result panel 177 Specimen collection (procedure) (no date) [facility] (missing) (missing) (missing) Result panel 178 Specimen collection (procedure) (no date) [facility] (missing) (missing) (missing) Result panel 179 Specimen collection (procedure) (no date) [facility] (missing) (missing) (missing) Result panel 180 Specimen collection (procedure) (no date) [facility] (missing) (missing) (missing) Result panel 181 Specimen collection (procedure) (no date) [facility] (missing) (missing) (missing) Result panel 182 Specimen collection (procedure) (no date) [facility] (missing) (missing) (missing) Result panel 183 Specimen collection (procedure) (no date) [facility] (missing) (missing) (missing) Result panel 184 Specimen collection (procedure) (no date) [facility] (missing) (missing) (missing) Result panel 185 Specimen collection (procedure) (no date) [facility] (missing) (missing) (missing) Result panel 186 Specimen collection (procedure) (no date) [facility] (missing) (missing) (missing) Result panel 187 Specimen collection (procedure) (no date) [facility] (missing) (missing) (missing) Result panel 188 Specimen collection (procedure) (no date) [facility] (missing) (missing) (missing) Result panel 189 Specimen collection (procedure) (no date) [facility] (missing) (missing) (missing) Result panel 190 Specimen collection (procedure) (no date) [facility] (missing) (missing) (missing) Result panel 191 Specimen collection (procedure) (no date) [facility] (missing) (missing) (missing) Result panel 192 Specimen collection (procedure) (no date) [facility] (missing) (missing) (missing) Result panel 193 Specimen collection (procedure) (no date) [facility] (missing) (missing) (missing) Result panel 194 Specimen collection (procedure) (no date) [facility] (missing) (missing) (missing) Result panel 195 Specimen collection (procedure) (no date) [facility] (missing) (missing) (missing) Result panel 196 Specimen collection (procedure) (no date) [facility] (missing) (missing) (missing) Result panel 197 Specimen collection (procedure) (no date) [facility] (missing) (missing) (missing) Result panel 198 Specimen collection (procedure) (no date) [facility] (missing) (missing) (missing) Result panel 199 Specimen collection (procedure) (no date) [facility] (missing) (missing) (missing) Result panel 200 Specimen collection (procedure) (no date) [facility] (missing) (missing) (missing) Result panel 201 Specimen collection (procedure) (no date) [facility] (missing) (missing) (missing) Result panel 202 Specimen collection (procedure) (no date) [facility] (missing) (missing) (missing) Result panel 203 Specimen collection (procedure) (no date) [facility] (missing) (missing) (missing) Result panel 204 Specimen collection (procedure) (no date) [facility] (missing) (missing) (missing) Result panel 205 Specimen collection (procedure) (no date) [facility] (missing) (missing) (missing) Result panel 206 Specimen collection (procedure) (no date) [facility] (missing) (missing) (missing) Result panel 207 Specimen collection (procedure) (no date) [facility] (missing) (missing) (missing) Result panel 208 Specimen collection (procedure) (no date) [facility] (missing) (missing) (missing) Result panel 209 Specimen collection (procedure) (no date) [facility] (missing) (missing) (missing) Result panel 210 Specimen collection (procedure) (no date) [facility] (missing) (missing) (missing) Result panel 211 Specimen collection (procedure) (no date) [facility] (missing) (missing) (missing) Result panel 212 Specimen collection (procedure) (no date) [facility] (missing) (missing) (missing) Result panel 213 Specimen collection (procedure) (no date) [facility] (missing) (missing) (missing) Result panel 214 Specimen collection (procedure) (no date) [facility] (missing) (missing) (missing) Result panel 215 Specimen collection (procedure) (no date) [facility] (missing) (missing) (missing) Result panel 216 Specimen collection (procedure) (no date) [facility] (missing) (missing) (missing) Result panel 217 Specimen collection (procedure) (no date) [facility] (missing) (missing) (missing) Result panel 218 Specimen collection (procedure) (no date) [facility] (missing) (missing) (missing) Result panel 219 Specimen collection (procedure) (no date) [facility] (missing) (missing) (missing) Result panel 220 Specimen collection (procedure) (no date) [facility] (missing) (missing) (missing) Result panel 221 Specimen collection (procedure) (no date) [facility] (missing) (missing) (missing) Result panel 222 Specimen collection (procedure) (no date) [facility] (missing) (missing) (missing) Result panel 223 Specimen collection (procedure) (no date) [facility] (missing) (missing) (missing) Result panel 224 Specimen collection (procedure) (no date) [facility] (missing) (missing) (missing) Result panel 225 Specimen collection (procedure) (no date) [facility] (missing) (missing) (missing) Result panel 226 Specimen collection (procedure) (no date) [facility] (missing) (missing) (missing) Result panel 227 Specimen collection (procedure) (no date) [facility] (missing) (missing) (missing) Result panel 228 Specimen collection (procedure) (no date) [facility] (missing) (missing) (missing) Result panel 229 Specimen collection (procedure) (no date) [facility] (missing) (missing) (missing) Result panel 230 Specimen collection (procedure) (no date) [facility] (missing) (missing) (missing) Result panel 231 Specimen collection (procedure) (no date) [facility] (missing) (missing) (missing) Result panel 232 Specimen collection (procedure) (no date) [facility] (missing) (missing) (missing) Result panel 233 Specimen collection (procedure) (no date) [facility] (missing) (missing) (missing) Result panel 234 Specimen collection (procedure) (no date) [facility] (missing) (missing) (missing) Result panel 235 Specimen collection (procedure) (no date) [facility] (missing) (missing) (missing) Result panel 236 Specimen collection (procedure) (no date) [facility] (missing) (missing) (missing) Result panel 237 Specimen collection (procedure) (no date) [facility] (missing) (missing) (missing) Result panel 238 Specimen collection (procedure) (no date) [facility] (missing) (missing) (missing) Result panel 239 Specimen collection (procedure) (no date) [facility] (missing) (missing) (missing) Result panel 240 Specimen collection (procedure) (no date) [facility] (missing) (missing) (missing) Result panel 241 Specimen collection (procedure) (no date) [facility] (missing) (missing) (missing) Result panel 242 Specimen collection (procedure) (no date) [facility] (missing) (missing) (missing) Result panel 243 Specimen collection (procedure) (no date) [facility] (missing) (missing) (missing) Result panel 244 Specimen collection (procedure) (no date) [facility] (missing) (missing) (missing) Result panel 245 Specimen collection (procedure) (no date) [facility] (missing) (missing) (missing) Result panel 246 Specimen collection (procedure) (no date) [facility] (missing) (missing) (missing) Result panel 247 Specimen collection (procedure) (no date) [facility] (missing) (missing) (missing) Result panel 248 Specimen collection (procedure) (no date) [facility] (missing) (missing) (missing) Result panel 249 Specimen collection (procedure) (no date) [facility] (missing) (missing) (missing) Result panel 250 Specimen collection (procedure) (no date) [facility] (missing) (missing) (missing) Result panel 251 Specimen collection (procedure) (no date) [facility] (missing) (missing) (missing) Result panel 252 Specimen collection (procedure) (no date) [facility] (missing) (missing) (missing) Result panel 253 Specimen collection (procedure) (no date) [facility] (missing) (missing) (missing) Result panel 254 Specimen collection (procedure) (no date) [facility] (missing) (missing) (missing) Result panel 255 Specimen collection (procedure) (no date) [facility] (missing) (missing) (missing) Result panel 256 Specimen collection (procedure) (no date) [facility] (missing) (missing) (missing) Result panel 257 Specimen collection (procedure) (no date) [facility] (missing) (missing) (missing) Result panel 258 Specimen collection (procedure) (no date) [facility] (missing) (missing) (missing) Result panel 259 Specimen collection (procedure) (no date) [facility] (missing) (missing) (missing) Result panel 260 Specimen collection (procedure) (no date) [facility] (missing) (missing) (missing) Result panel 261 Specimen collection (procedure) (no date) [facility] (missing) (missing) (missing) Result panel 262 Specimen collection (procedure) (no date) [facility] (missing) (missing) (missing) Result panel 263 Specimen collection (procedure) (no date) [facility] (missing) (missing) (missing) Result panel 264 Specimen collection (procedure) (no date) [facility] (missing) (missing) (missing) Result panel 265 Specimen collection (procedure) (no date) [facility] (missing) (missing) (missing) Result panel 266 Specimen collection (procedure) (no date) [facility] (missing) (missing) (missing) Result panel 267 Specimen collection (procedure) (no date) [facility] (missing) (missing) (missing) Result panel 268 Specimen collection (procedure) (no date) [facility] (missing) (missing) (missing) Result panel 269 Specimen collection (procedure) (no date) [facility] (missing) (missing) (missing) Result panel 270 Specimen collection (procedure) (no date) [facility] (missing) (missing) (missing) Result panel 271 Specimen collection (procedure) (no date) [facility] (missing) (missing) (missing) Result panel 272 Specimen collection (procedure) (no date) [facility] (missing) (missing) (missing) Result panel 273 Specimen collection (procedure) (no date) [facility] (missing) (missing) (missing) Result panel 274 Specimen collection (procedure) (no date) [facility] (missing) (missing) (missing) Result panel 275 Specimen collection (procedure) (no date) [facility] (missing) (missing) (missing) Result panel 276 Specimen collection (procedure) (no date) [facility] (missing) (missing) (missing) Result panel 277 Specimen collection (procedure) (no date) [facility] (missing) (missing) (missing) Result panel 278 Specimen collection (procedure) (no date) [facility] (missing) (missing) (missing) Result panel 279 Specimen collection (procedure) (no date) [facility] (missing) (missing) (missing) Result panel 280 Specimen collection (procedure) (no date) [facility] (missing) (missing) (missing) Result panel 281 Specimen collection (procedure) (no date) [facility] (missing) (missing) (missing) Result panel 282 Specimen collection (procedure) (no date) [facility] (missing) (missing) (missing) Result panel 283 Specimen collection (procedure) (no date) [facility] (missing) (missing) (missing) Result panel 284 Specimen collection (procedure) (no date) [facility] (missing) (missing) (missing) Result panel 285 Specimen collection (procedure) (no date) [facility] (missing) (missing) (missing) Result panel 286 Specimen collection (procedure) (no date) [facility] (missing) (missing) (missing) Result panel 287 Specimen collection (procedure) (no date) [facility] (missing) (missing) (missing) Result panel 288 Specimen collection (procedure) (no date) [facility] (missing) (missing) (missing) Result panel 289 Specimen collection (procedure) (no date) [facility] (missing) (missing) (missing) Result panel 290 Specimen collection (procedure) (no date) [facility] (missing) (missing) (missing) Result panel 291 Specimen collection (procedure) (no date) [facility] (missing) (missing) (missing) Result panel 292 Specimen collection (procedure) (no date) [facility] (missing) (missing) (missing) Result panel 293 Specimen collection (procedure) (no date) [facility] (missing) (missing) (missing) Result panel 294 Specimen collection (procedure) (no date) [facility] (missing) (missing) (missing) Result panel 295 Specimen collection (procedure) (no date) [facility] (missing) (missing) (missing) Result panel 296 Specimen collection (procedure) (no date) [facility] (missing) (missing) (missing) Result panel 297 Specimen collection (procedure) (no date) [facility] (missing) (missing) (missing) Result panel 298 Specimen collection (procedure) (no date) [facility] (missing) (missing) (missing) Result panel 299 Specimen collection (procedure) (no date) [facility] (missing) (missing) (missing) Result panel 300 Specimen collection (procedure) (no date) [facility] (missing) (missing) (missing) Result panel 301 Specimen collection (procedure) (no date) [facility] (missing) (missing) (missing) Result panel 302 Specimen collection (procedure) (no date) [facility] (missing) (missing) (missing) Result panel 303 Specimen collection (procedure) (no date) [facility] (missing) (missing) (missing) Result panel 304 Specimen collection (procedure) (no date) [facility] (missing) (missing) (missing) Result panel 305 Specimen collection (procedure) (no date) [facility] (missing) (missing) (missing) Result panel 306 Specimen collection (procedure) (no date) [facility] (missing) (missing) (missing) Result panel 307 Specimen collection (procedure) (no date) [facility] (missing) (missing) (missing) Result panel 308 Specimen collection (procedure) (no date) [facility] (missing) (missing) (missing) Result panel 309 Specimen collection (procedure) (no date) [facility] (missing) (missing) (missing) Result panel 310 Specimen collection (procedure) (no date) [facility] (missing) (missing) (missing) Result panel 311 Specimen collection (procedure) (no date) [facility] (missing) (missing) (missing) Result panel 312 Specimen collection (procedure) (no date) [facility] (missing) (missing) (missing) Result panel 313 Specimen collection (procedure) (no date) [facility] (missing) (missing) (missing) Result panel 314 Specimen collection (procedure) (no date) [facility] (missing) (missing) (missing) Result panel 315 Specimen collection (procedure) (no date) [facility] (missing) (missing) (missing) Result panel 316 Specimen collection (procedure) (no date) [facility] (missing) (missing) (missing) Result panel 317 Specimen collection (procedure) (no date) [facility] (missing) (missing) (missing) Result panel 318 Specimen collection (procedure) (no date) [facility] (missing) (missing) (missing) Result panel 319 Specimen collection (procedure) (no date) [facility] (missing) (missing) (missing) Result panel 320 Specimen collection (procedure) (no date) [facility] (missing) (missing) (missing) Result panel 321 Specimen collection (procedure) (no date) [facility] (missing) (missing) (missing) Result panel 322 Specimen collection (procedure) (no date) [facility] (missing) (missing) (missing) Result panel 323 Specimen collection (procedure) (no date) [facility] (missing) (missing) (missing) Result panel 324 Specimen collection (procedure) (no date) [facility] (missing) (missing) (missing) Result panel 325 Specimen collection (procedure) (no date) [facility] (missing) (missing) (missing) Result panel 326 Specimen collection (procedure) (no date) [facility] (missing) (missing) (missing) Result panel 327 Specimen collection (procedure) (no date) [facility] (missing) (missing) (missing) Result panel 328 Specimen collection (procedure) (no date) [facility] (missing) (missing) (missing) Result panel 329 Specimen collection (procedure) (no date) [facility] (missing) (missing) (missing) Result panel 330 Specimen collection (procedure) (no date) [facility] (missing) (missing) (missing) Result panel 331 Specimen collection (procedure) (no date) [facility] (missing) (missing) (missing) Result panel 332 Specimen collection (procedure) (no date) [facility] (missing) (missing) (missing) Result panel 333 Specimen collection (procedure) (no date) [facility] (missing) (missing) (missing) Result panel 334 Specimen collection (procedure) (no date) [facility] (missing) (missing) (missing) Result panel 335 Specimen collection (procedure) (no date) [facility] (missing) (missing) (missing) Result panel 336 Specimen collection (procedure) (no date) [facility] (missing) (missing) (missing) Result panel 337 Specimen collection (procedure) (no date) [facility] (missing) (missing) (missing) Result panel 338 Specimen collection (procedure) (no date) [facility] (missing) (missing) (missing) Result panel 339 Specimen collection (procedure) (no date) [facility] (missing) (missing) (missing) Result panel 340 Specimen collection (procedure) (no date) [facility] (missing) (missing) (missing) Result panel 341 Specimen collection (procedure) (no date) [facility] (missing) (missing) (missing) Result panel 342 Specimen collection (procedure) (no date) [facility] (missing) (missing) (missing) Result panel 343 Specimen collection (procedure) (no date) [facility] (missing) (missing) (missing) Result panel 344 Specimen collection (procedure) (no date) [facility] (missing) (missing) (missing) Result panel 345 Specimen collection (procedure) (no date) [facility] (missing) (missing) (missing) Result panel 346 Specimen collection (procedure) (no date) [facility] (missing) (missing) (missing) Result panel 347 Specimen collection (procedure) (no date) [facility] (missing) (missing) (missing) Result panel 348 Specimen collection (procedure) (no date) [facility] (missing) (missing) (missing) Result panel 349 Specimen collection (procedure) (no date) [facility] (missing) (missing) (missing) Result panel 350 Specimen collection (procedure) (no date) [facility] (missing) (missing) (missing) Result panel 351 Specimen collection (procedure) (no date) [facility] (missing) (missing) (missing) Result panel 352 Specimen collection (procedure) (no date) [facility] (missing) (missing) (missing) Result panel 353 Specimen collection (procedure) (no date) [facility] (missing) (missing) (missing) Result panel 354 Specimen collection (procedure) (no date) [facility] (missing) (missing) (missing) Result panel 355 Specimen collection (procedure) (no date) [facility] (missing) (missing) (missing) Result panel 356 Specimen collection (procedure) (no date) [facility] (missing) (missing) (missing) Result panel 357 Specimen collection (procedure) (no date) [facility] (missing) (missing) (missing) Result panel 358 Specimen collection (procedure) (no date) [facility] (missing) (missing) (missing) Result panel 359 Specimen collection (procedure) (no date) [facility] (missing) (missing) (missing) Result panel 360 Specimen collection (procedure) (no date) [facility] (missing) (missing) (missing) Result panel 361 Specimen collection (procedure) (no date) [facility] (missing) (missing) (missing) Result panel 362 Specimen collection (procedure) (no date) [facility] (missing) (missing) (missing) Result panel 363 Specimen collection (procedure) (no date) [facility] (missing) (missing) (missing) Result panel 364 Specimen collection (procedure) (no date) [facility] (missing) (missing) (missing) Result panel 365 Specimen collection (procedure) (no date) [facility] (missing) (missing) (missing) Result panel 366 Specimen collection (procedure) (no date) [facility] (missing) (missing) (missing) Result panel 367 Specimen collection (procedure) (no date) [facility] (missing) (missing) (missing) Result panel 368 Specimen collection (procedure) (no date) [facility] (missing) (missing) (missing) Result panel 369 Specimen collection (procedure) (no date) [facility] (missing) (missing) (missing) Result panel 370 Specimen collection (procedure) (no date) [facility] (missing) (missing) (missing) Result panel 371 Specimen collection (procedure) (no date) [facility] (missing) (missing) (missing) Result panel 372 Specimen collection (procedure) (no date) [facility] (missing) (missing) (missing) Result panel 373 Specimen collection (procedure) (no date) [facility] (missing) (missing) (missing) Result panel 374 Specimen collection (procedure) (no date) [facility] (missing) (missing) (missing) Result panel 375 Specimen collection (procedure) (no date) [facility] (missing) (missing) (missing) Result panel 376 Specimen collection (procedure) (no date) [facility] (missing) (missing) (missing) Result panel 377 Specimen collection (procedure) (no date) [facility] (missing) (missing) (missing) Result panel 378 Specimen collection (procedure) (no date) [facility] (missing) (missing) (missing) Result panel 379 Specimen collection (procedure) (no date) [facility] (missing) (missing) (missing) Result panel 380 Specimen collection (procedure) (no date) [facility] (missing) (missing) (missing) Result panel 381 Specimen collection (procedure) (no date) [facility] (missing) (missing) (missing) Result panel 382 Specimen collection (procedure) (no date) [facility] (missing) (missing) (missing) Result panel 383 Specimen collection (procedure) (no date) [facility] (missing) (missing) (missing) Result panel 384 Specimen collection (procedure) (no date) [facility] (missing) (missing) (missing) Result panel 385 Specimen collection (procedure) (no date) [facility] (missing) (missing) (missing) Result panel 386 Specimen collection (procedure) (no date) [facility] (missing) (missing) (missing) Result panel 387 Specimen collection (procedure) (no date) [facility] (missing) (missing) (missing) Result panel 388 Specimen collection (procedure) (no date) [facility] (missing) (missing) (missing) Result panel 389 Specimen collection (procedure) (no date) [facility] (missing) (missing) (missing) Result panel 390 Specimen collection (procedure) (no date) [facility] (missing) (missing) (missing) Result panel 391 Specimen collection (procedure) (no date) [facility] (missing) (missing) (missing) Result panel 392 Specimen collection (procedure) (no date) [facility] (missing) (missing) (missing) Result panel 393 Specimen collection (procedure) (no date) [facility] (missing) (missing) (missing) Result panel 394 Specimen collection (procedure) (no date) [facility] (missing) (missing) (missing) Result panel 395 Specimen collection (procedure) (no date) [facility] (missing) (missing) (missing) Result panel 396 Specimen collection (procedure) (no date) [facility] (missing) (missing) (missing) Result panel 397 Specimen collection (procedure) (no date) [facility] (missing) (missing) (missing) Result panel 398 Specimen collection (procedure) (no date) [facility] (missing) (missing) (missing) Result panel 399 Specimen collection (procedure) (no date) [facility] (missing) (missing) (missing) Result panel 400 Specimen collection (procedure) (no date) [facility] (missing) (missing) (missing) Result panel 401 Specimen collection (procedure) (no date) [facility] (missing) (missing) (missing) Result panel 402 Specimen collection (procedure) (no date) [facility] (missing) (missing) (missing) Result panel 403 Specimen collection (procedure) (no date) [facility] (missing) (missing) (missing) Result panel 404 Specimen collection (procedure) (no date) [facility] (missing) (missing) (missing) Result panel 405 Specimen collection (procedure) (no date) [facility] (missing) (missing) (missing) Result panel 406 Specimen collection (procedure) (no date) [facility] (missing) (missing) (missing) Result panel 407 Specimen collection (procedure) (no date) [facility] (missing) (missing) (missing) Result panel 408 Specimen collection (procedure) (no date) [facility] (missing) (missing) (missing) Result panel 409 Specimen collection (procedure) (no date) [facility] (missing) (missing) (missing) Result panel 410 Specimen collection (procedure) (no date) [facility] (missing) (missing) (missing) Result panel 411 Specimen collection (procedure) (no date) [facility] (missing) (missing) (missing) Result panel 412 Specimen collection (procedure) (no date) [facility] (missing) (missing) (missing) Result panel 413 Specimen collection (procedure) (no date) [facility] (missing) (missing) (missing) Result panel 414 Specimen collection (procedure) (no date) [facility] (missing) (missing) (missing) Result panel 415 Specimen collection (procedure) (no date) [facility] (missing) (missing) (missing) Result panel 416 Specimen collection (procedure) (no date) [facility] (missing) (missing) (missing) Result panel 417 Specimen collection (procedure) (no date) [facility] (missing) (missing) (missing) Result panel 418 Specimen collection (procedure) (no date) [facility] (missing) (missing) (missing) Result panel 419 Specimen collection (procedure) (no date) [facility] (missing) (missing) (missing) Result panel 420 Specimen collection (procedure) (no date) [facility] (missing) (missing) (missing) Result panel 421 Specimen collection (procedure) (no date) [facility] (missing) (missing) (missing) Result panel 422 Specimen collection (procedure) (no date) [facility] (missing) (missing) (missing) Result panel 423 Specimen collection (procedure) (no date) [facility] (missing) (missing) (missing) Result panel 424 Specimen collection (procedure) (no date) [facility] (missing) (missing) (missing) Result panel 425 Specimen collection (procedure) (no date) [facility] (missing) (missing) (missing) Result panel 426 Specimen collection (procedure) (no date) [facility] (missing) (missing) (missing) Result panel 427 Specimen collection (procedure) (no date) [facility] (missing) (missing) (missing) Result panel 428 Specimen collection (procedure) (no date) [facility] (missing) (missing) (missing) Result panel 429 Specimen collection (procedure) (no date) [facility] (missing) (missing) (missing) Result panel 430 Specimen collection (procedure) (no date) [facility] (missing) (missing) (missing) Result panel 431 Specimen collection (procedure) (no date) [facility] (missing) (missing) (missing) Result panel 432 Specimen collection (procedure) (no date) [facility] (missing) (missing) (missing) Result panel 433 Specimen collection (procedure) (no date) [facility] (missing) (missing) (missing) Result panel 434 Specimen collection (procedure) (no date) [facility] (missing) (missing) (missing) Result panel 435 Specimen collection (procedure) (no date) [facility] (missing) (missing) (missing) Result panel 436 Specimen collection (procedure) (no date) [facility] (missing) (missing) (missing) Result panel 437 Specimen collection (procedure) (no date) [facility] (missing) (missing) (missing) Result panel 438 Specimen collection (procedure) (no date) [facility] (missing) (missing) (missing) Result panel 439 Specimen collection (procedure) (no date) [facility] (missing) (missing) (missing) Result panel 440 Specimen collection (procedure) (no date) [facility] (missing) (missing) (missing) Result panel 441 Specimen collection (procedure) (no date) [facility] (missing) (missing) (missing) Result panel 442 Specimen collection (procedure) (no date) [facility] (missing) (missing) (missing) Result panel 443 Specimen collection (procedure) (no date) [facility] (missing) (missing) (missing) Result panel 444 Specimen collection (procedure) (no date) [facility] (missing) (missing) (missing) Result panel 445 Specimen collection (procedure) (no date) [facility] (missing) (missing) (missing) Result panel 446 Specimen collection (procedure) (no date) [facility] (missing) (missing) (missing) Result panel 447 Specimen collection (procedure) (no date) [facility] (missing) (missing) (missing) Result panel 448 Specimen collection (procedure) (no date) [facility] (missing) (missing) (missing) Result panel 449 Specimen collection (procedure) (no date) [facility] (missing) (missing) (missing) Result panel 450 Specimen collection (procedure) (no date) [facility] (missing) (missing) (missing) Result panel 451 Specimen collection (procedure) (no date) [facility] (missing) (missing) (missing) Result panel 452 Specimen collection (procedure) (no date) [facility] (missing) (missing) (missing) Result panel 453 Specimen collection (procedure) (no date) [facility] (missing) (missing) (missing) Result panel 454 Specimen collection (procedure) (no date) [facility] (missing) (missing) (missing) Result panel 455 Specimen collection (procedure) (no date) [facility] (missing) (missing) (missing) Result panel 456 Specimen collection (procedure) (no date) [facility] (missing) (missing) (missing) Result panel 457 Specimen collection (procedure) (no date) [facility] (missing) (missing) (missing) Result panel 458 Specimen collection (procedure) (no date) [facility] (missing) (missing) (missing) Result panel 459 Specimen collection (procedure) (no date) [facility] (missing) (missing) (missing) Result panel 460 Specimen collection (procedure) (no date) [facility] (missing) (missing) (missing) Result panel 461 Specimen collection (procedure) (no date) [facility] (missing) (missing) (missing) Result panel 462 Specimen collection (procedure) (no date) [facility] (missing) (missing) (missing) Result panel 463 Specimen collection (procedure) (no date) [facility] (missing) (missing) (missing) Result panel 464 Specimen collection (procedure) (no date) [facility] (missing) (missing) (missing) Result panel 465 Specimen collection (procedure) (no date) [facility] (missing) (missing) (missing) Result panel 466 Specimen collection (procedure) (no date) [facility] (missing) (missing) (missing) Result panel 467 Specimen collection (procedure) (no date) [facility] (missing) (missing) (missing) Result panel 468 Specimen collection (procedure) (no date) [facility] (missing) (missing) (missing) Result panel 469 Specimen collection (procedure) (no date) [facility] (missing) (missing) (missing) Result panel 470 Specimen collection (procedure) (no date) [facility] (missing) (missing) (missing) Result panel 471 Specimen collection (procedure) (no date) [facility] (missing) (missing) (missing) Result panel 472 Specimen collection (procedure) (no date) [facility] (missing) (missing) (missing) Result panel 473 Specimen collection (procedure) (no date) [facility] (missing) (missing) (missing) Result panel 474 Specimen collection (procedure) (no date) [facility] (missing) (missing) (missing) Result panel 475 Specimen collection (procedure) (no date) [facility] (missing) (missing) (missing) Result panel 476 Specimen collection (procedure) (no date) [facility] (missing) (missing) (missing) Result panel 477 Specimen collection (procedure) (no date) [facility] (missing) (missing) (missing) Result panel 478 Specimen collection (procedure) (no date) [facility] (missing) (missing) (missing) Result panel 479 Specimen collection (procedure) (no date) [facility] (missing) (missing) (missing) Result panel 480 Specimen collection (procedure) (no date) [facility] (missing) (missing) (missing) Result panel 481 Specimen collection (procedure) (no date) [facility] (missing) (missing) (missing) Result panel 482 Specimen collection (procedure) (no date) [facility] (missing) (missing) (missing) Result panel 483 Specimen collection (procedure) (no date) [facility] (missing) (missing) (missing) Result panel 484 Specimen collection (procedure) (no date) [facility] (missing) (missing) (missing) Result panel 485 Specimen collection (procedure) (no date) [facility] (missing) (missing) (missing) Result panel 486 Specimen collection (procedure) (no date) [facility] (missing) (missing) (missing) Result panel 487 Specimen collection (procedure) (no date) [facility] (missing) (missing) (missing) Result panel 488 Specimen collection (procedure) (no date) [facility] (missing) (missing) (missing) Result panel 489 Specimen collection (procedure) (no date) [facility] (missing) (missing) (missing) Result panel 490 Specimen collection (procedure) (no date) [facility] (missing) (missing) (missing) Result panel 491 Specimen collection (procedure) (no date) [facility] (missing) (missing) (missing) Result panel 492 Specimen collection (procedure) (no date) [facility] (missing) (missing) (missing) Result panel 493 Specimen collection (procedure) (no date) [facility] (missing) (missing) (missing) Result panel 494 Specimen collection (procedure) (no date) [facility] (missing) (missing) (missing) Result panel 495 Specimen collection (procedure) (no date) [facility] (missing) (missing) (missing) Result panel 496 Specimen collection (procedure) (no date) [facility] (missing) (missing) (missing) Result panel 497 Specimen collection (procedure) (no date) [facility] (missing) (missing) (missing) Result panel 498 Specimen collection (procedure) (no date) [facility] (missing) (missing) (missing) Result panel 499 Specimen collection (procedure) (no date) [facility] (missing) (missing) (missing) Result panel 500 Specimen collection (procedure) (no date) [facility] (missing) (missing) (missing) Result panel 501 Specimen collection (procedure) (no date) [facility] (missing) (missing) (missing) Result panel 502 Specimen collection (procedure) (no date) [facility] (missing) (missing) (missing) Result panel 503 Specimen collection (procedure) (no date) [facility] (missing) (missing) (missing) Result panel 504 Specimen collection (procedure) (no date) [facility] (missing) (missing) (missing) Result panel 505 Specimen collection (procedure) (no date) [facility] (missing) (missing) (missing) Result panel 506 Specimen collection (procedure) (no date) [facility] (missing) (missing) (missing) Result panel 507 Specimen collection (procedure) (no date) [facility] (missing) (missing) (missing) Result panel 508 Specimen collection (procedure) (no date) [facility] (missing) (missing) (missing) Result panel 509 Specimen collection (procedure) (no date) [facility] (missing) (missing) (missing) Result panel 510 Specimen collection (procedure) (no date) [facility] (missing) (missing) (missing) Result panel 511 Specimen collection (procedure) (no date) [facility] (missing) (missing) (missing) Result panel 512 Specimen collection (procedure) (no date) [facility] (missing) (missing) (missing) Result panel 513 Specimen collection (procedure) (no date) [facility] (missing) (missing) (missing) Result panel 514 Specimen collection (procedure) (no date) [facility] (missing) (missing) (missing) Result panel 515 Specimen collection (procedure) (no date) [facility] (missing) (missing) (missing) Result panel 516 Specimen collection (procedure) (no date) [facility] (missing) (missing) (missing) Result panel 517 Specimen collection (procedure) (no date) [facility] (missing) (missing) (missing) Result panel 518 Specimen collection (procedure) (no date) [facility] (missing) (missing) (missing) Result panel 519 Specimen collection (procedure) (no date) [facility] (missing) (missing) (missing) Result panel 520 Specimen collection (procedure) (no date) [facility] (missing) (missing) (missing) Result panel 521 Specimen collection (procedure) (no date) [facility] (missing) (missing) (missing) Result panel 522 Specimen collection (procedure) (no date) [facility] (missing) (missing) (missing) Result panel 523 Specimen collection (procedure) (no date) [facility] (missing) (missing) (missing) Result panel 524 Specimen collection (procedure) (no date) [facility] (missing) (missing) (missing) Result panel 525 Specimen collection (procedure) (no date) [facility] (missing) (missing) (missing) Result panel 526 Specimen collection (procedure) (no date) [facility] (missing) (missing) (missing) Result panel 527 Specimen collection (procedure) (no date) [facility] (missing) (missing) (missing) Result panel 528 Specimen collection (procedure) (no date) [facility] (missing) (missing) (missing) Result panel 529 Specimen collection (procedure) (no date) [facility] (missing) (missing) (missing) Result panel 530 Specimen collection (procedure) (no date) [facility] (missing) (missing) (missing) Result panel 531 Specimen collection (procedure) (no date) [facility] (missing) (missing) (missing) Result panel 532 Specimen collection (procedure) (no date) [facility] (missing) (missing) (missing) Result panel 533 Specimen collection (procedure) (no date) [facility] (missing) (missing) (missing) Result panel 534 Specimen collection (procedure) (no date) [facility] (missing) (missing) (missing) Result panel 535 Specimen collection (procedure) (no date) [facility] (missing) (missing) (missing) Result panel 536 Specimen collection (procedure) (no date) [facility] (missing) (missing) (missing) Result panel 537 Specimen collection (procedure) (no date) [facility] (missing) (missing) (missing) Result panel 538 Specimen collection (procedure) (no date) [facility] (missing) (missing) (missing) Result panel 539 Specimen collection (procedure) (no date) [facility] (missing) (missing) (missing) Result panel 540 Specimen collection (procedure) (no date) [facility] (missing) (missing) (missing) Result panel 541 Specimen collection (procedure) (no date) [facility] (missing) (missing) (missing) Result panel 542 Specimen collection (procedure) (no date) [facility] (missing) (missing) (missing) Result panel 543 Specimen collection (procedure) (no date) [facility] (missing) (missing) (missing) Result panel 544 Specimen collection (procedure) (no date) [facility] (missing) (missing) (missing) Result panel 545 Specimen collection (procedure) (no date) [facility] (missing) (missing) (missing) Result panel 546 Specimen collection (procedure) (no date) [facility] (missing) (missing) (missing) Result panel 547 Specimen collection (procedure) (no date) [facility] (missing) (missing) (missing) Result panel 548 Specimen collection (procedure) (no date) [facility] (missing) (missing) (missing) Result panel 549 Specimen collection (procedure) (no date) [facility] (missing) (missing) (missing) Result panel 550 Specimen collection (procedure) (no date) [facility] (missing) (missing) (missing) Result panel 551 Specimen collection (procedure) (no date) [facility] (missing) (missing) (missing) Result panel 552 Specimen collection (procedure) (no date) [facility] (missing) (missing) (missing) Result panel 553 Specimen collection (procedure) (no date) [facility] (missing) (missing) (missing) Result panel 554 Specimen collection (procedure) (no date) [facility] (missing) (missing) (missing) Result panel 555 Specimen collection (procedure) (no date) [facility] (missing) (missing) (missing) Result panel 556 Specimen collection (procedure) (no date) [facility] (missing) (missing) (missing) Result panel 557 Specimen collection (procedure) (no date) [facility] (missing) (missing) (missing) Result panel 558 Specimen collection (procedure) (no date) [facility] (missing) (missing) (missing) Result panel 559 Specimen collection (procedure) (no date) [facility] (missing) (missing) (missing) Result panel 560 Specimen collection (procedure) (no date) [facility] (missing) (missing) (missing) Result panel 561 Specimen collection (procedure) (no date) [facility] (missing) (missing) (missing) Result panel 562 Specimen collection (procedure) (no date) [facility] (missing) (missing) (missing) Result panel 563 Specimen collection (procedure) (no date) [facility] (missing) (missing) (missing) Result panel 564 Specimen collection (procedure) (no date) [facility] (missing) (missing) (missing) Result panel 565 Specimen collection (procedure) (no date) [facility] (missing) (missing) (missing) Result panel 566 Specimen collection (procedure) (no date) [facility] (missing) (missing) (missing) Result panel 567 Specimen collection (procedure) (no date) [facility] (missing) (missing) (missing) Result panel 568 Specimen collection (procedure) (no date) [facility] (missing) (missing) (missing) Result panel 569 Specimen collection (procedure) (no date) [facility] (missing) (missing) (missing) Result panel 570 Specimen collection (procedure) (no date) [facility] (missing) (missing) (missing) Result panel 571 Specimen collection (procedure) (no date) [facility] (missing) (missing) (missing) Result panel 572 Specimen collection (procedure) (no date) [facility] (missing) (missing) (missing) Result panel 573 Specimen collection (procedure) (no date) [facility] (missing) (missing) (missing) Result panel 574 Specimen collection (procedure) (no date) [facility] (missing) (missing) (missing) Result panel 575 Specimen collection (procedure) (no date) [facility] (missing) (missing) (missing) Result panel 576 Specimen collection (procedure) (no date) [facility] (missing) (missing) (missing) Result panel 577 Specimen collection (procedure) (no date) [facility] (missing) (missing) (missing) Result panel 578 Specimen collection (procedure) (no date) [facility] (missing) (missing) (missing) Result panel 579 Specimen collection (procedure) (no date) [facility] (missing) (missing) (missing) Result panel 580 Specimen collection (procedure) (no date) [facility] (missing) (missing) (missing) Result panel 581 Specimen collection (procedure) (no date) [facility] (missing) (missing) (missing) Result panel 582 Specimen collection (procedure) (no date) [facility] (missing) (missing) (missing) Result panel 583 Specimen collection (procedure) (no date) [facility] (missing) (missing) (missing) Result panel 584 Specimen collection (procedure) (no date) [facility] (missing) (missing) (missing) Result panel 585 Specimen collection (procedure) (no date) [facility] (missing) (missing) (missing) Result panel 586 Specimen collection (procedure) (no date) [facility] (missing) (missing) (missing) Result panel 587 Specimen collection (procedure) (no date) [facility] (missing) (missing) (missing) Result panel 588 Specimen collection (procedure) (no date) [facility] (missing) (missing) (missing) Result panel 589 Specimen collection (procedure) (no date) [facility] (missing) (missing) (missing) Result panel 590 Specimen collection (procedure) (no date) [facility] (missing) (missing) (missing) Result panel 591 Specimen collection (procedure) (no date) [facility] (missing) (missing) (missing) Result panel 592 Specimen collection (procedure) (no date) [facility] (missing) (missing) (missing) Result panel 593 Specimen collection (procedure) (no date) [facility] (missing) (missing) (missing) Result panel 594 Specimen collection (procedure) (no date) [facility] (missing) (missing) (missing) Result panel 595 Specimen collection (procedure) (no date) [facility] (missing) (missing) (missing) Result panel 596 Specimen collection (procedure) (no date) [facility] (missing) (missing) (missing) Result panel 597 Specimen collection (procedure) (no date) [facility] (missing) (missing) (missing) Result panel 598 Specimen collection (procedure) (no date) [facility] (missing) (missing) (missing) Result panel 599 Specimen collection (procedure) (no date) [facility] (missing) (missing) (missing) Result panel 600 Specimen collection (procedure) (no date) [facility] (missing) (missing) (missing) Result panel 601 Specimen collection (procedure) (no date) [facility] (missing) (missing) (missing) Result panel 602 Specimen collection (procedure) (no date) [facility] (missing) (missing) (missing) Result panel 603 Specimen collection (procedure) (no date) [facility] (missing) (missing) (missing) Result panel 604 Specimen collection (procedure) (no date) [facility] (missing) (missing) (missing) Result panel 605 Specimen collection (procedure) (no date) [facility] (missing) (missing) (missing) Result panel 606 Specimen collection (procedure) (no date) [facility] (missing) (missing) (missing) Result panel 607 Specimen collection (procedure) (no date) [facility] (missing) (missing) (missing) Result panel 608 Specimen collection (procedure) (no date) [facility] (missing) (missing) (missing) Result panel 609 Specimen collection (procedure) (no date) [facility] (missing) (missing) (missing) Result panel 610 Specimen collection (procedure) (no date) [facility] (missing) (missing) (missing) Result panel 611 Specimen collection (procedure) (no date) [facility] (missing) (missing) (missing) Result panel 612 Specimen collection (procedure) (no date) [facility] (missing) (missing) (missing) Result panel 613 Specimen collection (procedure) (no date) [facility] (missing) (missing) (missing) Result panel 614 Specimen collection (procedure) (no date) [facility] (missing) (missing) (missing) Result panel 615 Specimen collection (procedure) (no date) [facility] (missing) (missing) (missing) Result panel 616 Specimen collection (procedure) (no date) [facility] (missing) (missing) (missing) Result panel 617 Specimen collection (procedure) (no date) [facility] (missing) (missing) (missing) Result panel 618 Specimen collection (procedure) (no date) [facility] (missing) (missing) (missing) Result panel 619 Specimen collection (procedure) (no date) [facility] (missing) (missing) (missing) Result panel 620 Specimen collection (procedure) (no date) [facility] (missing) (missing) (missing) Result panel 621 Specimen collection (procedure) (no date) [facility] (missing) (missing) (missing) Result panel 622 Specimen collection (procedure) (no date) [facility] (missing) (missing) (missing) Result panel 623 Specimen collection (procedure) (no date) [facility] (missing) (missing) (missing) Result panel 624 Specimen collection (procedure) (no date) [facility] (missing) (missing) (missing) Result panel 625 Specimen collection (procedure) (no date) [facility] (missing) (missing) (missing) Result panel 626 Specimen collection (procedure) (no date) [facility] (missing) (missing) (missing) Result panel 627 Specimen collection (procedure) (no date) [facility] (missing) (missing) (missing) Result panel 628 Specimen collection (procedure) (no date) [facility] (missing) (missing) (missing) Result panel 629 Specimen collection (procedure) (no date) [facility] (missing) (missing) (missing) Result panel 630 Specimen collection (procedure) (no date) [facility] (missing) (missing) (missing) Result panel 631 Specimen collection (procedure) (no date) [facility] (missing) (missing) (missing) Result panel 632 Specimen collection (procedure) (no date) [facility] (missing) (missing) (missing) Result panel 633 Specimen collection (procedure) (no date) [facility] (missing) (missing) (missing) Result panel 634 Specimen collection (procedure) (no date) [facility] (missing) (missing) (missing) Result panel 635 Specimen collection (procedure) (no date) [facility] (missing) (missing) (missing) Result panel 636 Specimen collection (procedure) (no date) [facility] (missing) (missing) (missing) Result panel 637 Specimen collection (procedure) (no date) [facility] (missing) (missing) (missing) Result panel 638 Specimen collection (procedure) (no date) [facility] (missing) (missing) (missing) Result panel 639 Specimen collection (procedure) (no date) [facility] (missing) (missing) (missing) Result panel 640 Specimen collection (procedure) (no date) [facility] (missing) (missing) (missing) Result panel 641 Specimen collection (procedure) (no date) [facility] (missing) (missing) (missing) Result panel 642 Specimen collection (procedure) (no date) [facility] (missing) (missing) (missing) Result panel 643 Specimen collection (procedure) (no date) [facility] (missing) (missing) (missing) Result panel 644 Specimen collection (procedure) (no date) [facility] (missing) (missing) (missing) Result panel 645 Specimen collection (procedure) (no date) [facility] (missing) (missing) (missing) Result panel 646 Specimen collection (procedure) (no date) [facility] (missing) (missing) (missing) Result panel 647 Specimen collection (procedure) (no date) [facility] (missing) (missing) (missing) Result panel 648 Specimen collection (procedure) (no date) [facility] (missing) (missing) (missing) Result panel 649 Specimen collection (procedure) (no date) [facility] (missing) (missing) (missing) Result panel 650 Specimen collection (procedure) (no date) [facility] (missing) (missing) (missing) Result panel 651 Specimen collection (procedure) (no date) [facility] (missing) (missing) (missing) Result panel 652 Specimen collection (procedure) (no date) [facility] (missing) (missing) (missing) Result panel 653 Specimen collection (procedure) (no date) [facility] (missing) (missing) (missing) Result panel 654 Specimen collection (procedure) (no date) [facility] (missing) (missing) (missing) Result panel 655 Specimen collection (procedure) (no date) [facility] (missing) (missing) (missing) Result panel 656 Specimen collection (procedure) (no date) [facility] (missing) (missing) (missing) Result panel 657 Specimen collection (procedure) (no date) [facility] (missing) (missing) (missing) Result panel 658 Specimen collection (procedure) (no date) [facility] (missing) (missing) (missing) Result panel 659 Specimen collection (procedure) (no date) [facility] (missing) (missing) (missing) Result panel 660 Specimen collection (procedure) (no date) [facility] (missing) (missing) (missing) Result panel 661 Specimen collection (procedure) (no date) [facility] (missing) (missing) (missing) Result panel 662 Specimen collection (procedure) (no date) [facility] (missing) (missing) (missing) Result panel 663 Specimen collection (procedure) (no date) [facility] (missing) (missing) (missing) Result panel 664 Specimen collection (procedure) (no date) [facility] (missing) (missing) (missing) Result panel 665 Specimen collection (procedure) (no date) [facility] (missing) (missing) (missing) Result panel 666 Specimen collection (procedure) (no date) [facility] (missing) (missing) (missing) Result panel 667 Specimen collection (procedure) (no date) [facility] (missing) (missing) (missing) Result panel 668 Specimen collection (procedure) (no date) [facility] (missing) (missing) (missing) Result panel 669 Specimen collection (procedure) (no date) [facility] (missing) (missing) (missing) Result panel 670 Specimen collection (procedure) (no date) [facility] (missing) (missing) (missing) Result panel 671 Specimen collection (procedure) (no date) [facility] (missing) (missing) (missing) Result panel 672 Specimen collection (procedure) (no date) [facility] (missing) (missing) (missing) Result panel 673 Specimen collection (procedure) (no date) [facility] (missing) (missing) (missing) Result panel 674 Specimen collection (procedure) (no date) [facility] (missing) (missing) (missing) Result panel 675 Specimen collection (procedure) (no date) [facility] (missing) (missing) (missing) Result panel 676 Specimen collection (procedure) (no date) [facility] (missing) (missing) (missing) Result panel 677 Specimen collection (procedure) (no date) [facility] (missing) (missing) (missing) Result panel 678 Specimen collection (procedure) (no date) [facility] (missing) (missing) (missing) Result panel 679 Specimen collection (procedure) (no date) [facility] (missing) (missing) (missing) Result panel 680 Specimen collection (procedure) (no date) [facility] (missing) (missing) (missing) Result panel 681 Specimen collection (procedure) (no date) [facility] (missing) (missing) (missing) Result panel 682 Specimen collection (procedure) (no date) [facility] (missing) (missing) (missing) Result panel 683 Specimen collection (procedure) (no date) [facility] (missing) (missing) (missing) Result panel 684 Specimen collection (procedure) (no date) [facility] (missing) (missing) (missing) Result panel 685 Specimen collection (procedure) (no date) [facility] (missing) (missing) (missing) Result panel 686 Specimen collection (procedure) (no date) [facility] (missing) (missing) (missing) Result panel 687 Specimen collection (procedure) (no date) [facility] (missing) (missing) (missing) Result panel 688 Specimen collection (procedure) (no date) [facility] (missing) (missing) (missing) Result panel 689 Specimen collection (procedure) (no date) [facility] (missing) (missing) (missing) Result panel 690 Specimen collection (procedure) (no date) [facility] (missing) (missing) (missing) Result panel 691 Specimen collection (procedure) (no date) [facility] (missing) (missing) (missing) Result panel 692 Specimen collection (procedure) (no date) [facility] (missing) (missing) (missing) Result panel 693 Specimen collection (procedure) (no date) [facility] (missing) (missing) (missing) Result panel 694 Specimen collection (procedure) (no date) [facility] (missing) (missing) (missing) Result panel 695 Specimen collection (procedure) (no date) [facility] (missing) (missing) (missing) Result panel 696 Specimen collection (procedure) (no date) [facility] (missing) (missing) (missing) Result panel 697 Specimen collection (procedure) (no date) [facility] (missing) (missing) (missing) Result panel 698 Specimen collection (procedure) (no date) [facility] (missing) (missing) (missing) Result panel 699 Specimen collection (procedure) (no date) [facility] (missing) (missing) (missing) Result panel 700 Specimen collection (procedure) (no date) [facility] (missing) (missing) (missing) Result panel 701 Specimen collection (procedure) (no date) [facility] (missing) (missing) (missing) Result panel 702 Specimen collection (procedure) (no date) [facility] (missing) (missing) (missing) Result panel 703 Specimen collection (procedure) (no date) [facility] (missing) (missing) (missing) Result panel 704 Specimen collection (procedure) (no date) [facility] (missing) (missing) (missing) Result panel 705 Specimen collection (procedure) (no date) [facility] (missing) (missing) (missing) Result panel 706 Specimen collection (procedure) (no date) [facility] (missing) (missing) (missing) Result panel 707 Specimen collection (procedure) (no date) [facility] (missing) (missing) (missing) Result panel 708 Specimen collection (procedure) (no date) [facility] (missing) (missing) (missing) Result panel 709 Specimen collection (procedure) (no date) [facility] (missing) (missing) (missing) Result panel 710 Specimen collection (procedure) (no date) [facility] (missing) (missing) (missing) Result panel 711 Specimen collection (procedure) (no date) [facility] (missing) (missing) (missing) Result panel 712 Specimen collection (procedure) (no date) [facility] (missing) (missing) (missing) Result panel 713 Specimen collection (procedure) (no date) [facility] (missing) (missing) (missing) Result panel 714 Specimen collection (procedure) (no date) [facility] (missing) (missing) (missing) Result panel 715 Specimen collection (procedure) (no date) [facility] (missing) (missing) (missing) Result panel 716 Specimen collection (procedure) (no date) [facility] (missing) (missing) (missing) Result panel 717 Specimen collection (procedure) (no date) [facility] (missing) (missing) (missing) Result panel 718 Specimen collection (procedure) (no date) [facility] (missing) (missing) (missing) Result panel 719 Specimen collection (procedure) (no date) [facility] (missing) (missing) (missing) Result panel 720 Specimen collection (procedure) (no date) [facility] (missing) (missing) (missing) Result panel 721 Specimen collection (procedure) (no date) [facility] (missing) (missing) (missing) Result panel 722 Specimen collection (procedure) (no date) [facility] (missing) (missing) (missing) Result panel 723 Specimen collection (procedure) (no date) [facility] (missing) (missing) (missing) Result panel 724 Specimen collection (procedure) (no date) [facility] (missing) (missing) (missing) Result panel 725 Specimen collection (procedure) (no date) [facility] (missing) (missing) (missing) Result panel 726 Specimen collection (procedure) (no date) [facility] (missing) (missing) (missing) Result panel 727 Specimen collection (procedure) (no date) [facility] (missing) (missing) (missing) Result panel 728 Specimen collection (procedure) (no date) [facility] (missing) (missing) (missing) Result panel 729 Specimen collection (procedure) (no date) [facility] (missing) (missing) (missing) Result panel 730 Specimen collection (procedure) (no date) [facility] (missing) (missing) (missing) Result panel 731 Specimen collection (procedure) (no date) [facility] (missing) (missing) (missing) Result panel 732 Specimen collection (procedure) (no date) [facility] (missing) (missing) (missing) Result panel 733 Specimen collection (procedure) (no date) [facility] (missing) (missing) (missing) Result panel 734 Specimen collection (procedure) (no date) [facility] (missing) (missing) (missing) Result panel 735 Specimen collection (procedure) (no date) [facility] (missing) (missing) (missing) Result panel 736 Specimen collection (procedure) (no date) [facility] (missing) (missing) (missing) Result panel 737 Specimen collection (procedure) (no date) [facility] (missing) (missing) (missing) Result panel 738 Specimen collection (procedure) (no date) [facility] (missing) (missing) (missing) Result panel 739 Specimen collection (procedure) (no date) [facility] (missing) (missing) (missing) Result panel 740 Specimen collection (procedure) (no date) [facility] (missing) (missing) (missing) Result panel 741 Specimen collection (procedure) (no date) [facility] (missing) (missing) (missing) Result panel 742 Specimen collection (procedure) (no date) [facility] (missing) (missing) (missing) Result panel 743 Specimen collection (procedure) (no date) [facility] (missing) (missing) (missing) Result panel 744 Specimen collection (procedure) (no date) [facility] (missing) (missing) (missing) Result panel 745 Specimen collection (procedure) (no date) [facility] (missing) (missing) (missing) Result panel 746 Specimen collection (procedure) (no date) [facility] (missing) (missing) (missing) Result panel 747 Specimen collection (procedure) (no date) [facility] (missing) (missing) (missing) Result panel 748 Specimen collection (procedure) (no date) [facility] (missing) (missing) (missing) Result panel 749 Specimen collection (procedure) (no date) [facility] (missing) (missing) (missing) Result panel 750 Specimen collection (procedure) (no date) [facility] (missing) (missing) (missing) Result panel 751 Specimen collection (procedure) (no date) [facility] (missing) (missing) (missing) Result panel 752 Specimen collection (procedure) (no date) [facility] (missing) (missing) (missing) Result panel 753 Specimen collection (procedure) (no date) [facility] (missing) (missing) (missing) Result panel 754 Specimen collection (procedure) (no date) [facility] (missing) (missing) (missing) Result panel 755 Specimen collection (procedure) (no date) [facility] (missing) (missing) (missing) Result panel 756 Specimen collection (procedure) (no date) [facility] (missing) (missing) (missing) Result panel 757 Specimen collection (procedure) (no date) [facility] (missing) (missing) (missing) Result panel 758 Specimen collection (procedure) (no date) [facility] (missing) (missing) (missing) Result panel 759 Specimen collection (procedure) (no date) [facility] (missing) (missing) (missing) Result panel 760 Specimen collection (procedure) (no date) [facility] (missing) (missing) (missing) Result panel 761 Specimen collection (procedure) (no date) [facility] (missing) (missing) (missing) Result panel 762 Specimen collection (procedure) (no date) [facility] (missing) (missing) (missing) Result panel 763 Specimen collection (procedure) (no date) [facility] (missing) (missing) (missing) Result panel 764 Specimen collection (procedure) (no date) [facility] (missing) (missing) (missing) Result panel 765 Specimen collection (procedure) (no date) [facility] (missing) (missing) (missing) Result panel 766 Specimen collection (procedure) (no date) [facility] (missing) (missing) (missing) Result panel 767 Specimen collection (procedure) (no date) [facility] (missing) (missing) (missing) Result panel 768 Specimen collection (procedure) (no date) [facility] (missing) (missing) (missing) Result panel 769 Specimen collection (procedure) (no date) [facility] (missing) (missing) (missing) Result panel 770 Specimen collection (procedure) (no date) [facility] (missing) (missing) (missing) Result panel 771 Specimen collection (procedure) (no date) [facility] (missing) (missing) (missing) Result panel 772 Specimen collection (procedure) (no date) [facility] (missing) (missing) (missing) Result panel 773 Specimen collection (procedure) (no date) [facility] (missing) (missing) (missing) Result panel 774 Specimen collection (procedure) (no date) [facility] (missing) (missing) (missing) Result panel 775 Specimen collection (procedure) (no date) [facility] (missing) (missing) (missing) Result panel 776 Specimen collection (procedure) (no date) [facility] (missing) (missing) (missing) Result panel 777 Specimen collection (procedure) (no date) [facility] (missing) (missing) (missing) Result panel 778 Specimen collection (procedure) (no date) [facility] (missing) (missing) (missing) Result panel 779 Specimen collection (procedure) (no date) [facility] (missing) (missing) (missing) Result panel 780 Specimen collection (procedure) (no date) [facility] (missing) (missing) (missing) Result panel 781 Specimen collection (procedure) (no date) [facility] (missing) (missing) (missing) Result panel 782 Specimen collection (procedure) (no date) [facility] (missing) (missing) (missing) Result panel 783 Specimen collection (procedure) (no date) [facility] (missing) (missing) (missing) Result panel 784 Specimen collection (procedure) (no date) [facility] (missing) (missing) (missing) Result panel 785 Specimen collection (procedure) (no date) [facility] (missing) (missing) (missing) Result panel 786 Specimen collection (procedure) (no date) [facility] (missing) (missing) (missing) Result panel 787 Specimen collection (procedure) (no date) [facility] (missing) (missing) (missing) Result panel 788 Specimen collection (procedure) (no date) [facility] (missing) (missing) (missing) Result panel 789 Specimen collection (procedure) (no date) [facility] (missing) (missing) (missing) Result panel 790 Specimen collection (procedure) (no date) [facility] (missing) (missing) (missing) Result panel 791 Specimen collection (procedure) (no date) [facility] (missing) (missing) (missing) Result panel 792 Specimen collection (procedure) (no date) [facility] (missing) (missing) (missing) Result panel 793 Specimen collection (procedure) (no date) [facility] (missing) (missing) (missing) Result panel 794 Specimen collection (procedure) (no date) [facility] (missing) (missing) (missing) Result panel 795 Specimen collection (procedure) (no date) [facility] (missing) (missing) (missing) Result panel 796 Specimen collection (procedure) (no date) [facility] (missing) (missing) (missing) Result panel 797 Specimen collection (procedure) (no date) [facility] (missing) (missing) (missing) Result panel 798 Specimen collection (procedure) (no date) [facility] (missing) (missing) (missing) Result panel 799 Specimen collection (procedure) (no date) [facility] (missing) (missing) (missing) Result panel 800 Specimen collection (procedure) (no date) [facility] (missing) (missing) (missing) Result panel 801 Specimen collection (procedure) (no date) [facility] (missing) (missing) (missing) Result panel 802 Specimen collection (procedure) (no date) [facility] (missing) (missing) (missing) Result panel 803 Specimen collection (procedure) (no date) [facility] (missing) (missing) (missing) Result panel 804 Specimen collection (procedure) (no date) [facility] (missing) (missing) (missing) Result panel 805 Specimen collection (procedure) (no date) [facility] (missing) (missing) (missing) Result panel 806 Specimen collection (procedure) (no date) [facility] (missing) (missing) (missing) Result panel 807 Specimen collection (procedure) (no date) [facility] (missing) (missing) (missing) Result panel 808 Specimen collection (procedure) (no date) [facility] (missing) (missing) (missing) Result panel 809 Specimen collection (procedure) (no date) [facility] (missing) (missing) (missing) Result panel 810 Specimen collection (procedure) (no date) [facility] (missing) (missing) (missing) Result panel 811 Specimen collection (procedure) (no date) [facility] (missing) (missing) (missing) Result panel 812 Specimen collection (procedure) (no date) [facility] (missing) (missing) (missing) Result panel 813 Specimen collection (procedure) (no date) [facility] (missing) (missing) (missing) Result panel 814 Specimen collection (procedure) (no date) [facility] (missing) (missing) (missing) Result panel 815 Specimen collection (procedure) (no date) [facility] (missing) (missing) (missing) Result panel 816 Specimen collection (procedure) (no date) [facility] (missing) (missing) (missing) Result panel 817 Specimen collection (procedure) (no date) [facility] (missing) (missing) (missing) Result panel 818 Specimen collection (procedure) (no date) [facility] (missing) (missing) (missing) Result panel 819 Specimen collection (procedure) (no date) [facility] (missing) (missing) (missing) Result panel 820 Specimen collection (procedure) (no date) [facility] (missing) (missing) (missing) Result panel 821 Specimen collection (procedure) (no date) [facility] (missing) (missing) (missing) Result panel 822 Specimen collection (procedure) (no date) [facility] (missing) (missing) (missing) Result panel 823 Specimen collection (procedure) (no date) [facility] (missing) (missing) (missing) Result panel 824 Specimen collection (procedure) (no date) [facility] (missing) (missing) (missing) Result panel 825 Specimen collection (procedure) (no date) [facility] (missing) (missing) (missing) Result panel 826 Specimen collection (procedure) (no date) [facility] (missing) (missing) (missing) Result panel 827 Specimen collection (procedure) (no date) [facility] (missing) (missing) (missing) Result panel 828 Specimen collection (procedure) (no date) [facility] (missing) (missing) (missing) Result panel 829 Specimen collection (procedure) (no date) [facility] (missing) (missing) (missing) Result panel 830 Specimen collection (procedure) (no date) [facility] (missing) (missing) (missing) Result panel 831 Specimen collection (procedure) (no date) [facility] (missing) (missing) (missing) Result panel 832 Specimen collection (procedure) (no date) [facility] (missing) (missing) (missing) Result panel 833 Specimen collection (procedure) (no date) [facility] (missing) (missing) (missing) Result panel 834 Specimen collection (procedure) (no date) [facility] (missing) (missing) (missing) Result panel 835 Specimen collection (procedure) (no date) [facility] (missing) (missing) (missing) Result panel 836 Specimen collection (procedure) (no date) [facility] (missing) (missing) (missing) Result panel 837 Specimen collection (procedure) (no date) [facility] (missing) (missing) (missing) Result panel 838 Specimen collection (procedure) (no date) [facility] (missing) (missing) (missing) Result panel 839 Specimen collection (procedure) (no date) [facility] (missing) (missing) (missing) Result panel 840 Specimen collection (procedure) (no date) [facility] (missing) (missing) (missing) Result panel 841 Specimen collection (procedure) (no date) [facility] (missing) (missing) (missing) Result panel 842 Specimen collection (procedure) (no date) [facility] (missing) (missing) (missing) Result panel 843 Specimen collection (procedure) (no date) [facility] (missing) (missing) (missing) Result panel 844 Specimen collection (procedure) (no date) [facility] (missing) (missing) (missing) Result panel 845 Specimen collection (procedure) (no date) [facility] (missing) (missing) (missing) Result panel 846 Specimen collection (procedure) (no date) [facility] (missing) (missing) (missing) Result panel 847 Specimen collection (procedure) (no date) [facility] (missing) (missing) (missing) Result panel 848 Specimen collection (procedure) (no date) [facility] (missing) (missing) (missing) Result panel 849 Specimen collection (procedure) (no date) [facility] (missing) (missing) (missing) Result panel 850 Specimen collection (procedure) (no date) [facility] (missing) (missing) (missing) Result panel 851 Specimen collection (procedure) (no date) [facility] (missing) (missing) (missing) Result panel 852 Specimen collection (procedure) (no date) [facility] (missing) (missing) (missing) Result panel 853 Specimen collection (procedure) (no date) [facility] (missing) (missing) (missing) Result panel 854 Specimen collection (procedure) (no date) [facility] (missing) (missing) (missing) Result panel 855 Specimen collection (procedure) (no date) [facility] (missing) (missing) (missing) Result panel 856 Specimen collection (procedure) (no date) [facility] (missing) (missing) (missing) Result panel 857 Specimen collection (procedure) (no date) [facility] (missing) (missing) (missing) Result panel 858 Specimen collection (procedure) (no date) [facility] (missing) (missing) (missing) Result panel 859 Specimen collection (procedure) (no date) [facility] (missing) (missing) (missing) Result panel 860 Specimen collection (procedure) (no date) [facility] (missing) (missing) (missing) Result panel 861 Specimen collection (procedure) (no date) [facility] (missing) (missing) (missing) Result panel 862 Specimen collection (procedure) (no date) [facility] (missing) (missing) (missing) Result panel 863 Specimen collection (procedure) (no date) [facility] (missing) (missing) (missing) Result panel 864 Specimen collection (procedure) (no date) [facility] (missing) (missing) (missing) Result panel 865 Specimen collection (procedure) (no date) [facility] (missing) (missing) (missing) Result panel 866 Specimen collection (procedure) (no date) [facility] (missing) (missing) (missing) Result panel 867 Specimen collection (procedure) (no date) [facility] (missing) (missing) (missing) Result panel 868 Specimen collection (procedure) (no date) [facility] (missing) (missing) (missing) Result panel 869 Specimen collection (procedure) (no date) [facility] (missing) (missing) (missing) Result panel 870 Specimen collection (procedure) (no date) [facility] (missing) (missing) (missing) Result panel 871 Specimen collection (procedure) (no date) [facility] (missing) (missing) (missing) Result panel 872 Specimen collection (procedure) (no date) [facility] (missing) (missing) (missing) Result panel 873 Specimen collection (procedure) (no date) [facility] (missing) (missing) (missing) Result panel 874 Specimen collection (procedure) (no date) [facility] (missing) (missing) (missing) Result panel 875 Specimen collection (procedure) (no date) [facility] (missing) (missing) (missing) Result panel 876 Specimen collection (procedure) (no date) [facility] (missing) (missing) (missing) Result panel 877 Specimen collection (procedure) (no date) [facility] (missing) (missing) (missing) Result panel 878 Specimen collection (procedure) (no date) [facility] (missing) (missing) (missing) Result panel 879 Specimen collection (procedure) (no date) [facility] (missing) (missing) (missing) Result panel 880 Specimen collection (procedure) (no date) [facility] (missing) (missing) (missing) Result panel 881 Specimen collection (procedure) (no date) [facility] (missing) (missing) (missing) Result panel 882 Specimen collection (procedure) (no date) [facility] (missing) (missing) (missing) Result panel 883 Specimen collection (procedure) (no date) [facility] (missing) (missing) (missing) Result panel 884 Specimen collection (procedure) (no date) [facility] (missing) (missing) (missing) Result panel 885 Specimen collection (procedure) (no date) [facility] (missing) (missing) (missing) Result panel 886 Specimen collection (procedure) (no date) [facility] (missing) (missing) (missing) Result panel 887 Specimen collection (procedure) (no date) [facility] (missing) (missing) (missing) Result panel 888 Specimen collection (procedure) (no date) [facility] (missing) (missing) (missing) Result panel 889 Specimen collection (procedure) (no date) [facility] (missing) (missing) (missing) Result panel 890 Specimen collection (procedure) (no date) [facility] (missing) (missing) (missing) Result panel 891 Specimen collection (procedure) (no date) [facility] (missing) (missing) (missing) Result panel 892 Specimen collection (procedure) (no date) [facility] (missing) (missing) (missing) Result panel 893 Specimen collection (procedure) (no date) [facility] (missing) (missing) (missing) Result panel 894 Specimen collection (procedure) (no date) [facility] (missing) (missing) (missing) Result panel 895 Specimen collection (procedure) (no date) [facility] (missing) (missing) (missing) Result panel 896 Specimen collection (procedure) (no date) [facility] (missing) (missing) (missing) Result panel 897 Specimen collection (procedure) (no date) [facility] (missing) (missing) (missing) Result panel 898 Specimen collection (procedure) (no date) [facility] (missing) (missing) (missing) Result panel 899 Specimen collection (procedure) (no date) [facility] (missing) (missing) (missing) Result panel 900 Specimen collection (procedure) (no date) [facility] (missing) (missing) (missing) Result panel 901 Specimen collection (procedure) (no date) [facility] (missing) (missing) (missing) Result panel 902 Specimen collection (procedure) (no date) [facility] (missing) (missing) (missing) Result panel 903 Specimen collection (procedure) (no date) [facility] (missing) (missing) (missing) Result panel 904 Specimen collection (procedure) (no date) [facility] (missing) (missing) (missing) Result panel 905 Specimen collection (procedure) (no date) [facility] (missing) (missing) (missing) Result panel 906 Specimen collection (procedure) (no date) [facility] (missing) (missing) (missing) Result panel 907 Specimen collection (procedure) (no date) [facility] (missing) (missing) (missing) Result panel 908 Specimen collection (procedure) (no date) [facility] (missing) (missing) (missing) Result panel 909 Specimen collection (procedure) (no date) [facility] (missing) (missing) (missing) Result panel 910 Specimen collection (procedure) (no date) [facility] (missing) (missing) (missing) Result panel 911 Specimen collection (procedure) (no date) [facility] (missing) (missing) (missing) Result panel 912 Specimen collection (procedure) (no date) [facility] (missing) (missing) (missing) Result panel 913 Specimen collection (procedure) (no date) [facility] (missing) (missing) (missing) Result panel 914 Specimen collection (procedure) (no date) [facility] (missing) (missing) (missing) Result panel 915 Specimen collection (procedure) (no date) [facility] (missing) (missing) (missing) Result panel 916 Specimen collection (procedure) (no date) [facility] (missing) (missing) (missing) Result panel 917 Specimen collection (procedure) (no date) [facility] (missing) (missing) (missing) Result panel 918 Specimen collection (procedure) (no date) [facility] (missing) (missing) (missing) Result panel 919 Specimen collection (procedure) (no date) [facility] (missing) (missing) (missing) Result panel 920 Specimen collection (procedure) (no date) [facility] (missing) (missing) (missing) Result panel 921 Specimen collection (procedure) (no date) [facility] (missing) (missing) (missing) Result panel 922 Specimen collection (procedure) (no date) [facility] (missing) (missing) (missing) Result panel 923 Specimen collection (procedure) (no date) [facility] (missing) (missing) (missing) Result panel 924 Specimen collection (procedure) (no date) [facility] (missing) (missing) (missing) Result panel 925 Specimen collection (procedure) (no date) [facility] (missing) (missing) (missing) Result panel 926 Specimen collection (procedure) (no date) [facility] (missing) (missing) (missing) Result panel 927 Specimen collection (procedure) (no date) [facility] (missing) (missing) (missing) Result panel 928 Specimen collection (procedure) (no date) [facility] (missing) (missing) (missing) Result panel 929 Specimen collection (procedure) (no date) [facility] (missing) (missing) (missing) Result panel 930 Specimen collection (procedure) (no date) [facility] (missing) (missing) (missing) Result panel 931 Specimen collection (procedure) (no date) [facility] (missing) (missing) (missing) Result panel 932 Specimen collection (procedure) (no date) [facility] (missing) (missing) (missing) Result panel 933 Specimen collection (procedure) (no date) [facility] (missing) (missing) (missing) Result panel 934 Specimen collection (procedure) (no date) [facility] (missing) (missing) (missing) Result panel 935 Specimen collection (procedure) (no date) [facility] (missing) (missing) (missing) Result panel 936 Specimen collection (procedure) (no date) [facility] (missing) (missing) (missing) Result panel 937 Specimen collection (procedure) (no date) [facility] (missing) (missing) (missing) Result panel 938 Specimen collection (procedure) (no date) [facility] (missing) (missing) (missing) Result panel 939 Specimen collection (procedure) (no date) [facility] (missing) (missing) (missing) Result panel 940 Specimen collection (procedure) (no date) [facility] (missing) (missing) (missing) Result panel 941 Specimen collection (procedure) (no date) [facility] (missing) (missing) (missing) Result panel 942 Specimen collection (procedure) (no date) [facility] (missing) (missing) (missing) Result panel 943 Specimen collection (procedure) (no date) [facility] (missing) (missing) (missing) Result panel 944 Specimen collection (procedure) (no date) [facility] (missing) (missing) (missing) Result panel 945 Specimen collection (procedure) (no date) [facility] (missing) (missing) (missing) Result panel 946 Specimen collection (procedure) (no date) [facility] (missing) (missing) (missing) Result panel 947 Specimen collection (procedure) (no date) [facility] (missing) (missing) (missing) Result panel 948 Specimen collection (procedure) (no date) [facility] (missing) (missing) (missing) Result panel 949 Specimen collection (procedure) (no date) [facility] (missing) (missing) (missing) Result panel 950 Specimen collection (procedure) (no date) [facility] (missing) (missing) (missing) Result panel 951 Specimen collection (procedure) (no date) [facility] (missing) (missing) (missing) Result panel 952 Specimen collection (procedure) (no date) [facility] (missing) (missing) (missing) Result panel 953 Specimen collection (procedure) (no date) [facility] (missing) (missing) (missing) Result panel 954 Specimen collection (procedure) (no date) [facility] (missing) (missing) (missing) Result panel 955 Specimen collection (procedure) (no date) [facility] (missing) (missing) (missing) Result panel 956 Specimen collection (procedure) (no date) [facility] (missing) (missing) (missing) Result panel 957 Specimen collection (procedure) (no date) [facility] (missing) (missing) (missing) Result panel 958 Specimen collection (procedure) (no date) [facility] (missing) (missing) (missing) Result panel 959 Specimen collection (procedure) (no date) [facility] (missing) (missing) (missing) Result panel 960 Specimen collection (procedure) (no date) [facility] (missing) (missing) (missing) Result panel 961 Specimen collection (procedure) (no date) [facility] (missing) (missing) (missing) Result panel 962 Specimen collection (procedure) (no date) [facility] (missing) (missing) (missing) Result panel 963 Specimen collection (procedure) (no date) [facility] (missing) (missing) (missing) Result panel 964 Specimen collection (procedure) (no date) [facility] (missing) (missing) (missing) Result panel 965 Specimen collection (procedure) (no date) [facility] (missing) (missing) (missing) Result panel 966 Specimen collection (procedure) (no date) [facility] (missing) (missing) (missing) Result panel 967 Specimen collection (procedure) (no date) [facility] (missing) (missing) (missing) Result panel 968 Specimen collection (procedure) (no date) [facility] (missing) (missing) (missing) Result panel 969 Specimen collection (procedure) (no date) [facility] (missing) (missing) (missing) Result panel 970 Specimen collection (procedure) (no date) [facility] (missing) (missing) (missing) Result panel 971 Specimen collection (procedure) (no date) [facility] (missing) (missing) (missing) Result panel 972 Specimen collection (procedure) (no date) [facility] (missing) (missing) (missing) Result panel 973 Specimen collection (procedure) (no date) [facility] (missing) (missing) (missing) Result panel 974 Specimen collection (procedure) (no date) [facility] (missing) (missing) (missing) Result panel 975 Specimen collection (procedure) (no date) [facility] (missing) (missing) (missing) Result panel 976 Specimen collection (procedure) (no date) [facility] (missing) (missing) (missing) Result panel 977 Specimen collection (procedure) (no date) [facility] (missing) (missing) (missing) Result panel 978 Specimen collection (procedure) (no date) [facility] (missing) (missing) (missing) Result panel 979 Specimen collection (procedure) (no date) [facility] (missing) (missing) (missing) Result panel 980 Specimen collection (procedure) (no date) [facility] (missing) (missing) (missing) Result panel 981 Specimen collection (procedure) (no date) [facility] (missing) (missing) (missing) Result panel 982 Specimen collection (procedure) (no date) [facility] (missing) (missing) (missing) Result panel 983 Specimen collection (procedure) (no date) [facility] (missing) (missing) (missing) Result panel 984 Specimen collection (procedure) (no date) [facility] (missing) (missing) (missing) Result panel 985 Specimen collection (procedure) (no date) [facility] (missing) (missing) (missing) Result panel 986 Specimen collection (procedure) (no date) [facility] (missing) (missing) (missing) Result panel 987 Specimen collection (procedure) (no date) [facility] (missing) (missing) (missing) Result panel 988 Specimen collection (procedure) (no date) [facility] (missing) (missing) (missing) Result panel 989 Specimen collection (procedure) (no date) [facility] (missing) (missing) (missing) Result panel 990 Specimen collection (procedure) (no date) [facility] (missing) (missing) (missing) Result panel 991 Specimen collection (procedure) (no date) [facility] (missing) (missing) (missing) Result panel 992 Specimen collection (procedure) (no date) [facility] (missing) (missing) (missing) Result panel 993 Specimen collection (procedure) (no date) [facility] (missing) (missing) (missing) Result panel 994 Specimen collection (procedure) (no date) [facility] (missing) (missing) (missing) Result panel 995 Specimen collection (procedure) (no date) [facility] (missing) (missing) (missing) Result panel 996 Specimen collection (procedure) (no date) [facility] (missing) (missing) (missing) Result panel 997 Specimen collection (procedure) (no date) [facility] (missing) (missing) (missing) Result panel 998 Specimen collection (procedure) (no date) [facility] (missing) (missing) (missing) Result panel 999 Specimen collection (procedure) (no date) [facility] (missing) (missing) (missing) Result panel 1000 Specimen collection (procedure) (no date) [facility] (missing) (missing) (missing) Result panel 1001 Specimen collection (procedure) (no date) [facility] (missing) (missing) (missing) Result panel 1002 Specimen collection (procedure) (no date) [facility] (missing) (missing) (missing) Result panel 1003 Specimen collection (procedure) (no date) [facility] (missing) (missing) (missing) Result panel 1004 Specimen collection (procedure) (no date) [facility] (missing) (missing) (missing) Result panel 1005 Specimen collection (procedure) (no date) [facility] (missing) (missing) (missing) Result panel 1006 Specimen collection (procedure) (no date) [facility] (missing) (missing) (missing) Result panel 1007 Specimen collection (procedure) (no date) [facility] (missing) (missing) (missing) Result panel 1008 Specimen collection (procedure) (no date) [facility] (missing) (missing) (missing) Result panel 1009 Specimen collection (procedure) (no date) [facility] (missing) (missing) (missing) Result panel 1010 Specimen collection (procedure) (no date) [facility] (missing) (missing) (missing) Result panel 1011 Specimen collection (procedure) (no date) [facility] (missing) (missing) (missing) Result panel 1012 Specimen collection (procedure) (no date) [facility] (missing) (missing) (missing) Result panel 1013 Specimen collection (procedure) (no date) [facility] (missing) (missing) (missing) Result panel 1014 Specimen collection (procedure) (no date) [facility] (missing) (missing) (missing) Result panel 1015 Specimen collection (procedure) (no date) [facility] (missing) (missing) (missing) Result panel 1016 Specimen collection (procedure) (no date) [facility] (missing) (missing) (missing) Result panel 1017 Specimen collection (procedure) (no date) [facility] (missing) (missing) (missing) Result panel 1018 Specimen collection (procedure) (no date) [facility] (missing) (missing) (missing) Result panel 1019 Specimen collection (procedure) (no date) [facility] (missing) (missing) (missing) Result panel 1020 Specimen collection (procedure) (no date) [facility] (missing) (missing) (missing) Result panel 1021 Specimen collection (procedure) (no date) [facility] (missing) (missing) (missing) Result panel 1022 Specimen collection (procedure) (no date) [facility] (missing) (missing) (missing) Result panel 1023 Specimen collection (procedure) (no date) [facility] (missing) (missing) (missing) Result panel 1024 Specimen collection (procedure) (no date) [facility] (missing) (missing) (missing) Result panel 1025 Specimen collection (procedure) (no date) [facility] (missing) (missing) (missing) Result panel 1026 Specimen collection (procedure) (no date) [facility] (missing) (missing) (missing) Result panel 1027 Specimen collection (procedure) (no date) [facility] (missing) (missing) (missing) Result panel 1028 Specimen collection (procedure) (no date) [facility] (missing) (missing) (missing) Result panel 1029 Specimen collection (procedure) (no date) [facility] (missing) (missing) (missing) Result panel 1030 Specimen collection (procedure) (no date) [facility] (missing) (missing) (missing) Result panel 1031 Specimen collection (procedure) (no date) [facility] (missing) (missing) (missing) Result panel 1032 Specimen collection (procedure) (no date) [facility] (missing) (missing) (missing) Result panel 1033 Specimen collection (procedure) (no date) [facility] (missing) (missing) (missing) Result panel 1034 Specimen collection (procedure) (no date) [facility] (missing) (missing) (missing) Result panel 1035 Specimen collection (procedure) (no date) [facility] (missing) (missing) (missing) Result panel 1036 Specimen collection (procedure) (no date) [facility] (missing) (missing) (missing) Result panel 1037 Specimen collection (procedure) (no date) [facility] (missing) (missing) (missing) Result panel 1038 Specimen collection (procedure) (no date) [facility] (missing) (missing) (missing) Result panel 1039 Specimen collection (procedure) (no date) [facility] (missing) (missing) (missing) Result panel 1040 Specimen collection (procedure) (no date) [facility] (missing) (missing) (missing) Result panel 1041 Specimen collection (procedure) (no date) [facility] (missing) (missing) (missing) Result panel 1042 Specimen collection (procedure) (no date) [facility] (missing) (missing) (missing) Result panel 1043 Specimen collection (procedure) (no date) [facility] (missing) (missing) (missing) Result panel 1044 Specimen collection (procedure) (no date) [facility] (missing) (missing) (missing) Result panel 1045 Specimen collection (procedure) (no date) [facility] (missing) (missing) (missing) Result panel 1046 Specimen collection (procedure) (no date) [facility] (missing) (missing) (missing) Result panel 1047 Specimen collection (procedure) (no date) [facility] (missing) (missing) (missing) Result panel 1048 Specimen collection (procedure) (no date) [facility] (missing) (missing) (missing) Result panel 1049 Specimen collection (procedure) (no date) [facility] (missing) (missing) (missing) Result panel 1050 Specimen collection (procedure) (no date) [facility] (missing) (missing) (missing) Result panel 1051 Specimen collection (procedure) (no date) [facility] (missing) (missing) (missing) Result panel 1052 Specimen collection (procedure) (no date) [facility] (missing) (missing) (missing) Result panel 1053 Specimen collection (procedure) (no date) [facility] (missing) (missing) (missing) Result panel 1054 Specimen collection (procedure) (no date) [facility] (missing) (missing) (missing) Result panel 1055 Specimen collection (procedure) (no date) [facility] (missing) (missing) (missing) Result panel 1056 Specimen collection (procedure) (no date) [facility] (missing) (missing) (missing) Result panel 1057 Specimen collection (procedure) (no date) [facility] (missing) (missing) (missing) Result panel 1058 Specimen collection (procedure) (no date) [facility] (missing) (missing) (missing) Result panel 1059 Specimen collection (procedure) (no date) [facility] (missing) (missing) (missing) Result panel 1060 Specimen collection (procedure) (no date) [facility] (missing) (missing) (missing) Result panel 1061 Specimen collection (procedure) (no date) [facility] (missing) (missing) (missing) Result panel 1062 Specimen collection (procedure) (no date) [facility] (missing) (missing) (missing) Result panel 1063 Specimen collection (procedure) (no date) [facility] (missing) (missing) (missing) Result panel 1064 Specimen collection (procedure) (no date) [facility] (missing) (missing) (missing) Result panel 1065 Specimen collection (procedure) (no date) [facility] (missing) (missing) (missing) Result panel 1066 Specimen collection (procedure) (no date) [facility] (missing) (missing) (missing) Result panel 1067 Specimen collection (procedure) (no date) [facility] (missing) (missing) (missing) Result panel 1068 Specimen collection (procedure) (no date) [facility] (missing) (missing) (missing) Result panel 1069 Specimen collection (procedure) (no date) [facility] (missing) (missing) (missing) Result panel 1070 Specimen collection (procedure) (no date) [facility] (missing) (missing) (missing) Result panel 1071 Specimen collection (procedure) (no date) [facility] (missing) (missing) (missing) Result panel 1072 Specimen collection (procedure) (no date) [facility] (missing) (missing) (missing) Result panel 1073 Specimen collection (procedure) (no date) [facility] (missing) (missing) (missing) Result panel 1074 Specimen collection (procedure) (no date) [facility] (missing) (missing) (missing) Result panel 1075 Specimen collection (procedure) (no date) [facility] (missing) (missing) (missing) Result panel 1076 Specimen collection (procedure) (no date) [facility] (missing) (missing) (missing) Result panel 1077 Specimen collection (procedure) (no date) [facility] (missing) (missing) (missing) Result panel 1078 Specimen collection (procedure) (no date) [facility] (missing) (missing) (missing) Result panel 1079 Specimen collection (procedure) (no date) [facility] (missing) (missing) (missing) Result panel 1080 Specimen collection (procedure) (no date) [facility] (missing) (missing) (missing) Result panel 1081 Specimen collection (procedure) (no date) [facility] (missing) (missing) (missing) Result panel 1082 Specimen collection (procedure) (no date) [facility] (missing) (missing) (missing) Result panel 1083 Specimen collection (procedure) (no date) [facility] (missing) (missing) (missing) Result panel 1084 Specimen collection (procedure) (no date) [facility] (missing) (missing) (missing) Result panel 1085 Specimen collection (procedure) (no date) [facility] (missing) (missing) (missing) Result panel 1086 Specimen collection (procedure) (no date) [facility] (missing) (missing) (missing) Result panel 1087 Specimen collection (procedure) (no date) [facility] (missing) (missing) (missing) Result panel 1088 Specimen collection (procedure) (no date) [facility] (missing) (missing) (missing) Result panel 1089 Specimen collection (procedure) (no date) [facility] (missing) (missing) (missing) Result panel 1090 Specimen collection (procedure) (no date) [facility] (missing) (missing) (missing) Result panel 1091 Specimen collection (procedure) (no date) [facility] (missing) (missing) (missing) Result panel 1092 Specimen collection (procedure) (no date) [facility] (missing) (missing) (missing) Result panel 1093 Specimen collection (procedure) (no date) [facility] (missing) (missing) (missing) Result panel 1094 Specimen collection (procedure) (no date) [facility] (missing) (missing) (missing) Result panel 1095 Specimen collection (procedure) (no date) [facility] (missing) (missing) (missing) Result panel 1096 Specimen collection (procedure) (no date) [facility] (missing) (missing) (missing) Result panel 1097 Specimen collection (procedure) (no date) [facility] (missing) (missing) (missing) Result panel 1098 Specimen collection (procedure) (no date) [facility] (missing) (missing) (missing) Result panel 1099 Specimen collection (procedure) (no date) [facility] (missing) (missing) (missing) Result panel 1100 Specimen collection (procedure) (no date) [facility] (missing) (missing) (missing) Result panel 1101 Specimen collection (procedure) (no date) [facility] (missing) (missing) (missing) Result panel 1102 Specimen collection (procedure) (no date) [facility] (missing) (missing) (missing) Result panel 1103 Specimen collection (procedure) (no date) [facility] (missing) (missing) (missing) Result panel 1104 Specimen collection (procedure) (no date) [facility] (missing) (missing) (missing) Result panel 1105 Specimen collection (procedure) (no date) [facility] (missing) (missing) (missing) Result panel 1106 Specimen collection (procedure) (no date) [facility] (missing) (missing) (missing) Result panel 1107 Specimen collection (procedure) (no date) [facility] (missing) (missing) (missing) Result panel 1108 Specimen collection (procedure) (no date) [facility] (missing) (missing) (missing) Result panel 1109 Specimen collection (procedure) (no date) [facility] (missing) (missing) (missing) Result panel 1110 Specimen collection (procedure) (no date) [facility] (missing) (missing) (missing) Result panel 1111 Specimen collection (procedure) (no date) [facility] (missing) (missing) (missing) Result panel 1112 Specimen collection (procedure) (no date) [facility] (missing) (missing) (missing) Result panel 1113 Specimen collection (procedure) (no date) [facility] (missing) (missing) (missing) Result panel 1114 Specimen collection (procedure) (no date) [facility] (missing) (missing) (missing) Result panel 1115 Specimen collection (procedure) (no date) [facility] (missing) (missing) (missing) Result panel 1116 Specimen collection (procedure) (no date) [facility] (missing) (missing) (missing) Result panel 1117 Specimen collection (procedure) (no date) [facility] (missing) (missing) (missing) Result panel 1118 Specimen collection (procedure) (no date) [facility] (missing) (missing) (missing) Result panel 1119 Specimen collection (procedure) (no date) [facility] (missing) (missing) (missing) Result panel 1120 Specimen collection (procedure) (no date) [facility] (missing) (missing) (missing) Result panel 1121 Specimen collection (procedure) (no date) [facility] (missing) (missing) (missing) Result panel 1122 Specimen collection (procedure) (no date) [facility] (missing) (missing) (missing) Result panel 1123 Specimen collection (procedure) (no date) [facility] (missing) (missing) (missing) Result panel 1124 Specimen collection (procedure) (no date) [facility] (missing) (missing) (missing) Result panel 1125 Specimen collection (procedure) (no date) [facility] (missing) (missing) (missing) Result panel 1126 Specimen collection (procedure) (no date) [facility] (missing) (missing) (missing) Result panel 1127 Specimen collection (procedure) (no date) [facility] (missing) (missing) (missing) Result panel 1128 Specimen collection (procedure) (no date) [facility] (missing) (missing) (missing) Result panel 1129 Specimen collection (procedure) (no date) [facility] (missing) (missing) (missing) Result panel 1130 Specimen collection (procedure) (no date) [facility] (missing) (missing) (missing) Result panel 1131 Specimen collection (procedure) (no date) [facility] (missing) (missing) (missing) Result panel 1132 Specimen collection (procedure) (no date) [facility] (missing) (missing) (missing) Result panel 1133 Specimen collection (procedure) (no date) [facility] (missing) (missing) (missing) Result panel 1134 Specimen collection (procedure) (no date) [facility] (missing) (missing) (missing) Result panel 1135 Specimen collection (procedure) (no date) [facility] (missing) (missing) (missing) Result panel 1136 Specimen collection (procedure) (no date) [facility] (missing) (missing) (missing) Result panel 1137 Specimen collection (procedure) (no date) [facility] (missing) (missing) (missing) Result panel 1138 Specimen collection (procedure) (no date) [facility] (missing) (missing) (missing) Result panel 1139 Specimen collection (procedure) (no date) [facility] (missing) (missing) (missing) Result panel 1140 Specimen collection (procedure) (no date) [facility] (missing) (missing) (missing) Result panel 1141 Specimen collection (procedure) (no date) [facility] (missing) (missing) (missing) Result panel 1142 Specimen collection (procedure) (no date) [facility] (missing) (missing) (missing) Result panel 1143 Specimen collection (procedure) (no date) [facility] (missing) (missing) (missing) Result panel 1144 Specimen collection (procedure) (no date) [facility] (missing) (missing) (missing) Result panel 1145 Specimen collection (procedure) (no date) [facility] (missing) (missing) (missing) Result panel 1146 Specimen collection (procedure) (no date) [facility] (missing) (missing) (missing) Result panel 1147 Specimen collection (procedure) (no date) [facility] (missing) (missing) (missing) Result panel 1148 Specimen collection (procedure) (no date) [facility] (missing) (missing) (missing) Result panel 1149 Specimen collection (procedure) (no date) [facility] (missing) (missing) (missing) Result panel 1150 Specimen collection (procedure) (no date) [facility] (missing) (missing) (missing) Result panel 1151 Specimen collection (procedure) (no date) [facility] (missing) (missing) (missing) Result panel 1152 Specimen collection (procedure) (no date) [facility] (missing) (missing) (missing) Result panel 1153 Specimen collection (procedure) (no date) [facility] (missing) (missing) (missing) Result panel 1154 Specimen collection (procedure) (no date) [facility] (missing) (missing) (missing) Result panel 1155 Specimen collection (procedure) (no date) [facility] (missing) (missing) (missing) Result panel 1156 Specimen collection (procedure) (no date) [facility] (missing) (missing) (missing) Result panel 1157 Specimen collection (procedure) (no date) [facility] (missing) (missing) (missing) Result panel 1158 Specimen collection (procedure) (no date) [facility] (missing) (missing) (missing) Result panel 1159 Specimen collection (procedure) (no date) [facility] (missing) (missing) (missing) Result panel 1160 Specimen collection (procedure) (no date) [facility] (missing) (missing) (missing) Result panel 1161 Specimen collection (procedure) (no date) [facility] (missing) (missing) (missing) Result panel 1162 Specimen collection (procedure) (no date) [facility] (missing) (missing) (missing) Result panel 1163 Specimen collection (procedure) (no date) [facility] (missing) (missing) (missing) Result panel 1164 Specimen collection (procedure) (no date) [facility] (missing) (missing) (missing) Result panel 1165 Specimen collection (procedure) (no date) [facility] (missing) (missing) (missing) Result panel 1166 Specimen collection (procedure) (no date) [facility] (missing) (missing) (missing) Result panel 1167 Specimen collection (procedure) (no date) [facility] (missing) (missing) (missing) Result panel 1168 Specimen collection (procedure) (no date) [facility] (missing) (missing) (missing) Result panel 1169 Specimen collection (procedure) (no date) [facility] (missing) (missing) (missing) Result panel 1170 Specimen collection (procedure) (no date) [facility] (missing) (missing) (missing) Result panel 1171 Specimen collection (procedure) (no date) [facility] (missing) (missing) (missing) Result panel 1172 Specimen collection (procedure) (no date) [facility] (missing) (missing) (missing) Result panel 1173 Specimen collection (procedure) (no date) [facility] (missing) (missing) (missing) Result panel 1174 Specimen collection (procedure) (no date) [facility] (missing) (missing) (missing) Result panel 1175 Specimen collection (procedure) (no date) [facility] (missing) (missing) (missing) Result panel 1176 Specimen collection (procedure) (no date) [facility] (missing) (missing) (missing) Result panel 1177 Specimen collection (procedure) (no date) [facility] (missing) (missing) (missing) Result panel 1178 Specimen collection (procedure) (no date) [facility] (missing) (missing) (missing) Result panel 1179 Specimen collection (procedure) (no date) [facility] (missing) (missing) (missing) Result panel 1180 Specimen collection (procedure) (no date) [facility] (missing) (missing) (missing) Result panel 1181 Specimen collection (procedure) (no date) [facility] (missing) (missing) (missing) Result panel 1182 Specimen collection (procedure) (no date) [facility] (missing) (missing) (missing) Result panel 1183 Specimen collection (procedure) (no date) [facility] (missing) (missing) (missing) Result panel 1184 Specimen collection (procedure) (no date) [facility] (missing) (missing) (missing) Result panel 1185 Specimen collection (procedure) (no date) [facility] (missing) (missing) (missing) Result panel 1186 Specimen collection (procedure) (no date) [facility] (missing) (missing) (missing) Result panel 1187 Specimen collection (procedure) (no date) [facility] (missing) (missing) (missing) Result panel 1188 Specimen collection (procedure) (no date) [facility] (missing) (missing) (missing) Result panel 1189 Specimen collection (procedure) (no date) [facility] (missing) (missing) (missing) Result panel 1190 Specimen collection (procedure) (no date) [facility] (missing) (missing) (missing) Result panel 1191 Specimen collection (procedure) (no date) [facility] (missing) (missing) (missing) Result panel 1192 Specimen collection (procedure) (no date) [facility] (missing) (missing) (missing) Result panel 1193 Specimen collection (procedure) (no date) [facility] (missing) (missing) (missing) Result panel 1194 Specimen collection (procedure) (no date) [facility] (missing) (missing) (missing) Result panel 1195 Specimen collection (procedure) (no date) [facility] (missing) (missing) (missing) Result panel 1196 Specimen collection (procedure) (no date) [facility] (missing) (missing) (missing) Result panel 1197 Specimen collection (procedure) (no date) [facility] (missing) (missing) (missing) Result panel 1198 Specimen collection (procedure) (no date) [facility] (missing) (missing) (missing) Result panel 1199 Specimen collection (procedure) (no date) [facility] (missing) (missing) (missing) Result panel 1200 Specimen collection (procedure) (no date) [facility] (missing) (missing) (missing) Result panel 1201 Specimen collection (procedure) (no date) [facility] (missing) (missing) (missing) Result panel 1202 Specimen collection (procedure) (no date) [facility] (missing) (missing) (missing) Result panel 1203 Specimen collection (procedure) (no date) [facility] (missing) (missing) (missing) Result panel 1204 Specimen collection (procedure) (no date) [facility] (missing) (missing) (missing) Result panel 1205 Specimen collection (procedure) (no date) [facility] (missing) (missing) (missing) Result panel 1206 Specimen collection (procedure) (no date) [facility] (missing) (missing) (missing) Result panel 1207 Specimen collection (procedure) (no date) [facility] (missing) (missing) (missing) Result panel 1208 Specimen collection (procedure) (no date) [facility] (missing) (missing) (missing) Result panel 1209 Specimen collection (procedure) (no date) [facility] (missing) (missing) (missing) Result panel 1210 Specimen collection (procedure) (no date) [facility] (missing) (missing) (missing) Result panel 1211 Specimen collection (procedure) (no date) [facility] (missing) (missing) (missing) Result panel 1212 Specimen collection (procedure) (no date) [facility] (missing) (missing) (missing) Result panel 1213 Specimen collection (procedure) (no date) [facility] (missing) (missing) (missing) Result panel 1214 Specimen collection (procedure) (no date) [facility] (missing) (missing) (missing) Result panel 1215 Specimen collection (procedure) (no date) [facility] (missing) (missing) (missing) Result panel 1216 Specimen collection (procedure) (no date) [facility] (missing) (missing) (missing) Result panel 1217 Specimen collection (procedure) (no date) [facility] (missing) (missing) (missing) Result panel 1218 Specimen collection (procedure) (no date) [facility] (missing) (missing) (missing) Result panel 1219 Specimen collection (procedure) (no date) [facility] (missing) (missing) (missing) Result panel 1220 Specimen collection (procedure) (no date) [facility] (missing) (missing) (missing) Result panel 1221 Specimen collection (procedure) (no date) [facility] (missing) (missing) (missing) Result panel 1222 Specimen collection (procedure) (no date) [facility] (missing) (missing) (missing) Result panel 1223 Specimen collection (procedure) (no date) [facility] (missing) (missing) (missing) Result panel 1224 Specimen collection (procedure) (no date) [facility] (missing) (missing) (missing) Result panel 1225 Specimen collection (procedure) (no date) [facility] (missing) (missing) (missing) Result panel 1226 Specimen collection (procedure) (no date) [facility] (missing) (missing) (missing) Result panel 1227 Specimen collection (procedure) (no date) [facility] (missing) (missing) (missing) Result panel 1228 Specimen collection (procedure) (no date) [facility] (missing) (missing) (missing) Result panel 1229 Specimen collection (procedure) (no date) [facility] (missing) (missing) (missing) Result panel 1230 Specimen collection (procedure) (no date) [facility] (missing) (missing) (missing) Result panel 1231 Specimen collection (procedure) (no date) [facility] (missing) (missing) (missing) Result panel 1232 Specimen collection (procedure) (no date) [facility] (missing) (missing) (missing) Result panel 1233 Specimen collection (procedure) (no date) [facility] (missing) (missing) (missing) Result panel 1234 Specimen collection (procedure) (no date) [facility] (missing) (missing) (missing) Result panel 1235 Specimen collection (procedure) (no date) [facility] (missing) (missing) (missing) Result panel 1236 Specimen collection (procedure) (no date) [facility] (missing) (missing) (missing) Result panel 1237 Specimen collection (procedure) (no date) [facility] (missing) (missing) (missing) Result panel 1238 Specimen collection (procedure) (no date) [facility] (missing) (missing) (missing) Result panel 1239 Specimen collection (procedure) (no date) [facility] (missing) (missing) (missing) Result panel 1240 Specimen collection (procedure) (no date) [facility] (missing) (missing) (missing) Result panel 1241 Specimen collection (procedure) (no date) [facility] (missing) (missing) (missing) Result panel 1242 Specimen collection (procedure) (no date) [facility] (missing) (missing) (missing) Result panel 1243 Specimen collection (procedure) (no date) [facility] (missing) (missing) (missing) Result panel 1244 Specimen collection (procedure) (no date) [facility] (missing) (missing) (missing) Result panel 1245 Specimen collection (procedure) (no date) [facility] (missing) (missing) (missing) Result panel 1246 Specimen collection (procedure) (no date) [facility] (missing) (missing) (missing) Result panel 1247 Specimen collection (procedure) (no date) [facility] (missing) (missing) (missing) Result panel 1248 Specimen collection (procedure) (no date) [facility] (missing) (missing) (missing) Result panel 1249 Specimen collection (procedure) (no date) [facility] (missing) (missing) (missing) Result panel 1250 Specimen collection (procedure) (no date) [facility] (missing) (missing) (missing) Result panel 1251 Specimen collection (procedure) (no date) [facility] (missing) (missing) (missing) Result panel 1252 Specimen collection (procedure) (no date) [facility] (missing) (missing) (missing) Result panel 1253 Specimen collection (procedure) (no date) [facility] (missing) (missing) (missing) Result panel 1254 Specimen collection (procedure) (no date) [facility] (missing) (missing) (missing) Result panel 1255 Specimen collection (procedure) (no date) [facility] (missing) (missing) (missing) Result panel 1256 Specimen collection (procedure) (no date) [facility] (missing) (missing) (missing) Result panel 1257 Specimen collection (procedure) (no date) [facility] (missing) (missing) (missing) Result panel 1258 Specimen collection (procedure) (no date) [facility] (missing) (missing) (missing) Result panel 1259 Specimen collection (procedure) (no date) [facility] (missing) (missing) (missing) Result panel 1260 Specimen collection (procedure) (no date) [facility] (missing) (missing) (missing) Result panel 1261 Specimen collection (procedure) (no date) [facility] (missing) (missing) (missing) Result panel 1262 Specimen collection (procedure) (no date) [facility] (missing) (missing) (missing) Result panel 1263 Specimen collection (procedure) (no date) [facility] (missing) (missing) (missing) Result panel 1264 Specimen collection (procedure) (no date) [facility] (missing) (missing) (missing) Result panel 1265 Specimen collection (procedure) (no date) [facility] (missing) (missing) (missing) Result panel 1266 Specimen collection (procedure) (no date) [facility] (missing) (missing) (missing) Result panel 1267 Specimen collection (procedure) (no date) [facility] (missing) (missing) (missing) Result panel 1268 Specimen collection (procedure) (no date) [facility] (missing) (missing) (missing) Result panel 1269 Specimen collection (procedure) (no date) [facility] (missing) (missing) (missing) Result panel 1270 Specimen collection (procedure) (no date) [facility] (missing) (missing) (missing) Result panel 1271 Specimen collection (procedure) (no date) [facility] (missing) (missing) (missing) Result panel 1272 Specimen collection (procedure) (no date) [facility] (missing) (missing) (missing) Result panel 1273 Specimen collection (procedure) (no date) [facility] (missing) (missing) (missing) Result panel 1274 Specimen collection (procedure) (no date) [facility] (missing) (missing) (missing) Result panel 1275 Specimen collection (procedure) (no date) [facility] (missing) (missing) (missing) Result panel 1276 Specimen collection (procedure) (no date) [facility] (missing) (missing) (missing) Result panel 1277 Specimen collection (procedure) (no date) [facility] (missing) (missing) (missing) Result panel 1278 Specimen collection (procedure) (no date) [facility] (missing) (missing) (missing) Result panel 1279 Specimen collection (procedure) (no date) [facility] (missing) (missing) (missing) Result panel 1280 Specimen collection (procedure) (no date) [facility] (missing) (missing) (missing) Result panel 1281 Specimen collection (procedure) (no date) [facility] (missing) (missing) (missing) Result panel 1282 Specimen collection (procedure) (no date) [facility] (missing) (missing) (missing) Result panel 1283 Specimen collection (procedure) (no date) [facility] (missing) (missing) (missing) Result panel 1284 Specimen collection (procedure) (no date) [facility] (missing) (missing) (missing) Result panel 1285 Specimen collection (procedure) (no date) [facility] (missing) (missing) (missing) Result panel 1286 Specimen collection (procedure) (no date) [facility] (missing) (missing) (missing) Result panel 1287 Specimen collection (procedure) (no date) [facility] (missing) (missing) (missing) Result panel 1288 Specimen collection (procedure) (no date) [facility] (missing) (missing) (missing) Result panel 1289 Specimen collection (procedure) (no date) [facility] (missing) (missing) (missing) Result panel 1290 Specimen collection (procedure) (no date) [facility] (missing) (missing) (missing) Result panel 1291 Specimen collection (procedure) (no date) [facility] (missing) (missing) (missing) Result panel 1292 Specimen collection (procedure) (no date) [facility] (missing) (missing) (missing) Result panel 1293 Specimen collection (procedure) (no date) [facility] (missing) (missing) (missing) Result panel 1294 Specimen collection (procedure) (no date) [facility] (missing) (missing) (missing) Result panel 1295 Specimen collection (procedure) (no date) [facility] (missing) (missing) (missing) Result panel 1296 Specimen collection (procedure) (no date) [facility] (missing) (missing) (missing) Result panel 1297 Specimen collection (procedure) (no date) [facility] (missing) (missing) (missing) Result panel 1298 Specimen collection (procedure) (no date) [facility] (missing) (missing) (missing) Result panel 1299 Specimen collection (procedure) (no date) [facility] (missing) (missing) (missing) Result panel 1300 Specimen collection (procedure) (no date) [facility] (missing) (missing) (missing) Result panel 1301 Specimen collection (procedure) (no date) [facility] (missing) (missing) (missing) Result panel 1302 Specimen collection (procedure) (no date) [facility] (missing) (missing) (missing) Result panel 1303 Specimen collection (procedure) (no date) [facility] (missing) (missing) (missing) Result panel 1304 Specimen collection (procedure) (no date) [facility] (missing) (missing) (missing) Result panel 1305 Specimen collection (procedure) (no date) [facility] (missing) (missing) (missing) Result panel 1306 Specimen collection (procedure) (no date) [facility] (missing) (missing) (missing) Result panel 1307 Specimen collection (procedure) (no date) [facility] (missing) (missing) (missing) Result panel 1308 Specimen collection (procedure) (no date) [facility] (missing) (missing) (missing) Result panel 1309 Specimen collection (procedure) (no date) [facility] (missing) (missing) (missing) Result panel 1310 Specimen collection (procedure) (no date) [facility] (missing) (missing) (missing) Result panel 1311 Specimen collection (procedure) (no date) [facility] (missing) (missing) (missing) Result panel 1312 Specimen collection (procedure) (no date) [facility] (missing) (missing) (missing) Result panel 1313 Specimen collection (procedure) (no date) [facility] (missing) (missing) (missing) Result panel 1314 Specimen collection (procedure) (no date) [facility] (missing) (missing) (missing) Result panel 1315 Specimen collection (procedure) (no date) [facility] (missing) (missing) (missing) Result panel 1316 Specimen collection (procedure) (no date) [facility] (missing) (missing) (missing) Result panel 1317 Specimen collection (procedure) (no date) [facility] (missing) (missing) (missing) Result panel 1318 Specimen collection (procedure) (no date) [facility] (missing) (missing) (missing) Result panel 1319 Specimen collection (procedure) (no date) [facility] (missing) (missing) (missing) Result panel 1320 Specimen collection (procedure) (no date) [facility] (missing) (missing) (missing) Result panel 1321 Specimen collection (procedure) (no date) [facility] (missing) (missing) (missing) Result panel 1322 Specimen collection (procedure) (no date) [facility] (missing) (missing) (missing) Result panel 1323 Specimen collection (procedure) (no date) [facility] (missing) (missing) (missing) Result panel 1324 Specimen collection (procedure) (no date) [facility] (missing) (missing) (missing) Result panel 1325 Specimen collection (procedure) (no date) [facility] (missing) (missing) (missing) Result panel 1326 Specimen collection (procedure) (no date) [facility] (missing) (missing) (missing) Result panel 1327 Specimen collection (procedure) (no date) [facility] (missing) (missing) (missing) Result panel 1328 Specimen collection (procedure) (no date) [facility] (missing) (missing) (missing) Result panel 1329 Specimen collection (procedure) (no date) [facility] (missing) (missing) (missing) Result panel 1330 Specimen collection (procedure) (no date) [facility] (missing) (missing) (missing) Result panel 1331 Specimen collection (procedure) (no date) [facility] (missing) (missing) (missing) Result panel 1332 Specimen collection (procedure) (no date) [facility] (missing) (missing) (missing) Result panel 1333 Specimen collection (procedure) (no date) [facility] (missing) (missing) (missing) Result panel 1334 Specimen collection (procedure) (no date) [facility] (missing) (missing) (missing) Result panel 1335 Specimen collection (procedure) (no date) [facility] (missing) (missing) (missing) Result panel 1336 Specimen collection (procedure) (no date) [facility] (missing) (missing) (missing) Result panel 1337 Specimen collection (procedure) (no date) [facility] (missing) (missing) (missing) Result panel 1338 Specimen collection (procedure) (no date) [facility] (missing) (missing) (missing) Result panel 1339 Specimen collection (procedure) (no date) [facility] (missing) (missing) (missing) Result panel 1340 Specimen collection (procedure) (no date) [facility] (missing) (missing) (missing) Result panel 1341 Specimen collection (procedure) (no date) [facility] (missing) (missing) (missing) Result panel 1342 Specimen collection (procedure) (no date) [facility] (missing) (missing) (missing) Result panel 1343 Specimen collection (procedure) (no date) [facility] (missing) (missing) (missing) Result panel 1344 Specimen collection (procedure) (no date) [facility] (missing) (missing) (missing) Result panel 1345 Specimen collection (procedure) (no date) [facility] (missing) (missing) (missing) Result panel 1346 Specimen collection (procedure) (no date) [facility] (missing) (missing) (missing) Result panel 1347 Specimen collection (procedure) (no date) [facility] (missing) (missing) (missing) Result panel 1348 Specimen collection (procedure) (no date) [facility] (missing) (missing) (missing) Result panel 1349 Specimen collection (procedure) (no date) [facility] (missing) (missing) (missing) Result panel 1350 Specimen collection (procedure) (no date) [facility] (missing) (missing) (missing) Result panel 1351 Specimen collection (procedure) (no date) [facility] (missing) (missing) (missing) Result panel 1352 Specimen collection (procedure) (no date) [facility] (missing) (missing) (missing) Result panel 1353 Specimen collection (procedure) (no date) [facility] (missing) (missing) (missing) Result panel 1354 Specimen collection (procedure) (no date) [facility] (missing) (missing) (missing) Result panel 1355 Specimen collection (procedure) (no date) [facility] (missing) (missing) (missing) Result panel 1356 Specimen collection (procedure) (no date) [facility] (missing) (missing) (missing) Result panel 1357 Specimen collection (procedure) (no date) [facility] (missing) (missing) (missing) Result panel 1358 Specimen collection (procedure) (no date) [facility] (missing) (missing) (missing) Result panel 1359 Specimen collection (procedure) (no date) [facility] (missing) (missing) (missing) Result panel 1360 Specimen collection (procedure) (no date) [facility] (missing) (missing) (missing) Result panel 1361 Specimen collection (procedure) (no date) [facility] (missing) (missing) (missing) Result panel 1362 Specimen collection (procedure) (no date) [facility] (missing) (missing) (missing) Result panel 1363 Specimen collection (procedure) (no date) [facility] (missing) (missing) (missing) Result panel 1364 Specimen collection (procedure) (no date) [facility] (missing) (missing) (missing) Result panel 1365 Specimen collection (procedure) (no date) [facility] (missing) (missing) (missing) Result panel 1366 Specimen collection (procedure) (no date) [facility] (missing) (missing) (missing) Result panel 1367 Specimen collection (procedure) (no date) [facility] (missing) (missing) (missing) Result panel 1368 Specimen collection (procedure) (no date) [facility] (missing) (missing) (missing) Result panel 1369 Specimen collection (procedure) (no date) [facility] (missing) (missing) (missing) Result panel 1370 Specimen collection (procedure) (no date) [facility] (missing) (missing) (missing) Result panel 1371 Specimen collection (procedure) (no date) [facility] (missing) (missing) (missing) Result panel 1372 Specimen collection (procedure) (no date) [facility] (missing) (missing) (missing) Result panel 1373 Specimen collection (procedure) (no date) [facility] (missing) (missing) (missing) Result panel 1374 Specimen collection (procedure) (no date) [facility] (missing) (missing) (missing) Result panel 1375 Specimen collection (procedure) (no date) [facility] (missing) (missing) (missing) Result panel 1376 Specimen collection (procedure) (no date) [facility] (missing) (missing) (missing) Result panel 1377 Specimen collection (procedure) (no date) [facility] (missing) (missing) (missing) Result panel 1378 Specimen collection (procedure) (no date) [facility] (missing) (missing) (missing) Result panel 1379 Specimen collection (procedure) (no date) [facility] (missing) (missing) (missing) Result panel 1380 Specimen collection (procedure) (no date) [facility] (missing) (missing) (missing) Result panel 1381 Specimen collection (procedure) (no date) [facility] (missing) (missing) (missing) Result panel 1382 Specimen collection (procedure) (no date) [facility] (missing) (missing) (missing) Result panel 1383 Specimen collection (procedure) (no date) [facility] (missing) (missing) (missing) Result panel 1384 Specimen collection (procedure) (no date) [facility] (missing) (missing) (missing) Result panel 1385 Specimen collection (procedure) (no date) [facility] (missing) (missing) (missing) Result panel 1386 Specimen collection (procedure) (no date) [facility] (missing) (missing) (missing) Result panel 1387 Specimen collection (procedure) (no date) [facility] (missing) (missing) (missing) Result panel 1388 Specimen collection (procedure) (no date) [facility] (missing) (missing) (missing) Result panel 1389 Specimen collection (procedure) (no date) [facility] (missing) (missing) (missing) Result panel 1390 Specimen collection (procedure) (no date) [facility] (missing) (missing) (missing) Result panel 1391 Specimen collection (procedure) (no date) [facility] (missing) (missing) (missing) Result panel 1392 Specimen collection (procedure) (no date) [facility] (missing) (missing) (missing) Result panel 1393 Specimen collection (procedure) (no date) [facility] (missing) (missing) (missing) Result panel 1394 Specimen collection (procedure) (no date) [facility] (missing) (missing) (missing) Result panel 1395 Specimen collection (procedure) (no date) [facility] (missing) (missing) (missing) Result panel 1396 Specimen collection (procedure) (no date) [facility] (missing) (missing) (missing) Result panel 1397 Specimen collection (procedure) (no date) [facility] (missing) (missing) (missing) Result panel 1398 Specimen collection (procedure) (no date) [facility] (missing) (missing) (missing) Result panel 1399 Specimen collection (procedure) (no date) [facility] (missing) (missing) (missing) Result panel 1400 Specimen collection (procedure) (no date) [facility] (missing) (missing) (missing) Result panel 1401 Specimen collection (procedure) (no date) [facility] (missing) (missing) (missing) Result panel 1402 Specimen collection (procedure) (no date) [facility] (missing) (missing) (missing) Result panel 1403 Specimen collection (procedure) (no date) [facility] (missing) (missing) (missing) Result panel 1404 Specimen collection (procedure) (no date) [facility] (missing) (missing) (missing) Result panel 1405 Specimen collection (procedure) (no date) [facility] (missing) (missing) (missing) Result panel 1406 Specimen collection (procedure) (no date) [facility] (missing) (missing) (missing) Result panel 1407 Specimen collection (procedure) (no date) [facility] (missing) (missing) (missing) Result panel 1408 Specimen collection (procedure) (no date) [facility] (missing) (missing) (missing) Result panel 1409 Specimen collection (procedure) (no date) [facility] (missing) (missing) (missing) Result panel 1410 Specimen collection (procedure) (no date) [facility] (missing) (missing) (missing) Result panel 1411 Specimen collection (procedure) (no date) [facility] (missing) (missing) (missing) Result panel 1412 Specimen collection (procedure) (no date) [facility] (missing) (missing) (missing) Result panel 1413 Specimen collection (procedure) (no date) [facility] (missing) (missing) (missing) Result panel 1414 Specimen collection (procedure) (no date) [facility] (missing) (missing) (missing) Result panel 1415 Specimen collection (procedure) (no date) [facility] (missing) (missing) (missing) Result panel 1416 Specimen collection (procedure) (no date) [facility] (missing) (missing) (missing) Result panel 1417 Specimen collection (procedure) (no date) [facility] (missing) (missing) (missing) Result panel 1418 Specimen collection (procedure) (no date) [facility] (missing) (missing) (missing) Result panel 1419 Specimen collection (procedure) (no date) [facility] (missing) (missing) (missing) Result panel 1420 Specimen collection (procedure) (no date) [facility] (missing) (missing) (missing) Result panel 1421 Specimen collection (procedure) (no date) [facility] (missing) (missing) (missing) Result panel 1422 Specimen collection (procedure) (no date) [facility] (missing) (missing) (missing) Result panel 1423 Specimen collection (procedure) (no date) [facility] (missing) (missing) (missing) Result panel 1424 Specimen collection (procedure) (no date) [facility] (missing) (missing) (missing) Result panel 1425 Specimen collection (procedure) (no date) [facility] (missing) (missing) (missing) Result panel 1426 Specimen collection (procedure) (no date) [facility] (missing) (missing) (missing) Result panel 1427 Specimen collection (procedure) (no date) [facility] (missing) (missing) (missing) Result panel 1428 Specimen collection (procedure) (no date) [facility] (missing) (missing) (missing) Result panel 1429 Specimen collection (procedure) (no date) [facility] (missing) (missing) (missing) Result panel 1430 Specimen collection (procedure) (no date) [facility] (missing) (missing) (missing) Result panel 1431 Specimen collection (procedure) (no date) [facility] (missing) (missing) (missing) Result panel 1432 Specimen collection (procedure) (no date) [facility] (missing) (missing) (missing) Result panel 1433 Specimen collection (procedure) (no date) [facility] (missing) (missing) (missing) Result panel 1434 Specimen collection (procedure) (no date) [facility] (missing) (missing) (missing) Result panel 1435 Specimen collection (procedure) (no date) [facility] (missing) (missing) (missing) Result panel 1436 Specimen collection (procedure) (no date) [facility] (missing) (missing) (missing) Result panel 1437 Specimen collection (procedure) (no date) [facility] (missing) (missing) (missing) Result panel 1438 Specimen collection (procedure) (no date) [facility] (missing) (missing) (missing) Result panel 1439 Specimen collection (procedure) (no date) [facility] (missing) (missing) (missing) Result panel 1440 Specimen collection (procedure) (no date) [facility] (missing) (missing) (missing) Result panel 1441 Specimen collection (procedure) (no date) [facility] (missing) (missing) (missing) Result panel 1442 Specimen collection (procedure) (no date) [facility] (missing) (missing) (missing) Result panel 1443 Specimen collection (procedure) (no date) [facility] (missing) (missing) (missing) Result panel 1444 Specimen collection (procedure) (no date) [facility] (missing) (missing) (missing) Result panel 1445 Specimen collection (procedure) (no date) [facility] (missing) (missing) (missing) Result panel 1446 Specimen collection (procedure) (no date) [facility] (missing) (missing) (missing) Result panel 1447 Specimen collection (procedure) (no date) [facility] (missing) (missing) (missing) Result panel 1448 Specimen collection (procedure) (no date) [facility] (missing) (missing) (missing) Result panel 1449 Specimen collection (procedure) (no date) [facility] (missing) (missing) (missing) Result panel 1450 Specimen collection (procedure) (no date) [facility] (missing) (missing) (missing) Result panel 1451 Specimen collection (procedure) (no date) [facility] (missing) (missing) (missing) Result panel 1452 Specimen collection (procedure) (no date) [facility] (missing) (missing) (missing) Result panel 1453 Specimen collection (procedure) (no date) [facility] (missing) (missing) (missing) Result panel 1454 Specimen collection (procedure) (no date) [facility] (missing) (missing) (missing) Result panel 1455 Specimen collection (procedure) (no date) [facility] (missing) (missing) (missing) Result panel 1456 Specimen collection (procedure) (no date) [facility] (missing) (missing) (missing) Result panel 1457 Specimen collection (procedure) (no date) [facility] (missing) (missing) (missing) Result panel 1458 Specimen collection (procedure) (no date) [facility] (missing) (missing) (missing) Result panel 1459 Specimen collection (procedure) (no date) [facility] (missing) (missing) (missing) Result panel 1460 Specimen collection (procedure) (no date) [facility] (missing) (missing) (missing) Result panel 1461 Specimen collection (procedure) (no date) [facility] (missing) (missing) (missing) Result panel 1462 Specimen collection (procedure) (no date) [facility] (missing) (missing) (missing) Result panel 1463 Specimen collection (procedure) (no date) [facility] (missing) (missing) (missing) Result panel 1464 Specimen collection (procedure) (no date) [facility] (missing) (missing) (missing) Result panel 1465 Specimen collection (procedure) (no date) [facility] (missing) (missing) (missing) Result panel 1466 Specimen collection (procedure) (no date) [facility] (missing) (missing) (missing) Result panel 1467 Specimen collection (procedure) (no date) [facility] (missing) (missing) (missing) Result panel 1468 Specimen collection (procedure) (no date) [facility] (missing) (missing) (missing) Result panel 1469 Specimen collection (procedure) (no date) [facility] (missing) (missing) (missing) Result panel 1470 Specimen collection (procedure) (no date) [facility] (missing) (missing) (missing) Result panel 1471 Specimen collection (procedure) (no date) [facility] (missing) (missing) (missing) Result panel 1472 Specimen collection (procedure) (no date) [facility] (missing) (missing) (missing) Result panel 1473 Specimen collection (procedure) (no date) [facility] (missing) (missing) (missing) Result panel 1474 Specimen collection (procedure) (no date) [facility] (missing) (missing) (missing) Result panel 1475 Specimen collection (procedure) (no date) [facility] (missing) (missing) (missing) Result panel 1476 Specimen collection (procedure) (no date) [facility] (missing) (missing) (missing) Result panel 1477 Specimen collection (procedure) (no date) [facility] (missing) (missing) (missing) Result panel 1478 Specimen collection (procedure) (no date) [facility] (missing) (missing) (missing) Result panel 1479 Specimen collection (procedure) (no date) [facility] (missing) (missing) (missing) Result panel 1480 Specimen collection (procedure) (no date) [facility] (missing) (missing) (missing) Result panel 1481 Specimen collection (procedure) (no date) [facility] (missing) (missing) (missing) Result panel 1482 Specimen collection (procedure) (no date) [facility] (missing) (missing) (missing) Result panel 1483 Specimen collection (procedure) (no date) [facility] (missing) (missing) (missing) Result panel 1484 Specimen collection (procedure) (no date) [facility] (missing) (missing) (missing) Result panel 1485 Specimen collection (procedure) (no date) [facility] (missing) (missing) (missing) Result panel 1486 Specimen collection (procedure) (no date) [facility] (missing) (missing) (missing) Result panel 1487 Specimen collection (procedure) (no date) [facility] (missing) (missing) (missing) Result panel 1488 Specimen collection (procedure) (no date) [facility] (missing) (missing) (missing) Result panel 1489 Specimen collection (procedure) (no date) [facility] (missing) (missing) (missing) Result panel 1490 Specimen collection (procedure) (no date) [facility] (missing) (missing) (missing) Result panel 1491 Specimen collection (procedure) (no date) [facility] (missing) (missing) (missing) Result panel 1492 Specimen collection (procedure) (no date) [facility] (missing) (missing) (missing) Result panel 1493 Specimen collection (procedure) (no date) [facility] (missing) (missing) (missing) Result panel 1494 Specimen collection (procedure) (no date) [facility] (missing) (missing) (missing) Result panel 1495 Specimen collection (procedure) (no date) [facility] (missing) (missing) (missing) Result panel 1496 Specimen collection (procedure) (no date) [facility] (missing) (missing) (missing) Result panel 1497 Specimen collection (procedure) (no date) [facility] (missing) (missing) (missing) Result panel 1498 Specimen collection (procedure) (no date) [facility] (missing) (missing) (missing) Result panel 1499 Specimen collection (procedure) (no date) [facility] (missing) (missing) (missing) Result panel 1500 Specimen collection (procedure) (no date) [facility] (missing) (missing) (missing) Result panel 1501 Specimen collection (procedure) (no date) [facility] (missing) (missing) (missing) Result panel 1502 Specimen collection (procedure) (no date) [facility] (missing) (missing) (missing) Result panel 1503 Specimen collection (procedure) (no date) [facility] (missing) (missing) (missing) Result panel 1504 Specimen collection (procedure) (no date) [facility] (missing) (missing) (missing) Result panel 1505 Specimen collection (procedure) (no date) [facility] (missing) (missing) (missing) Result panel 1506 Specimen collection (procedure) (no date) [facility] (missing) (missing) (missing) Result panel 1507 Specimen collection (procedure) (no date) [facility] (missing) (missing) (missing) Result panel 1508 Specimen collection (procedure) (no date) [facility] (missing) (missing) (missing) Result panel 1509 Specimen collection (procedure) (no date) [facility] (missing) (missing) (missing) Result panel 1510 Specimen collection (procedure) (no date) [facility] (missing) (missing) (missing) Result panel 1511 Specimen collection (procedure) (no date) [facility] (missing) (missing) (missing) Result panel 1512 Specimen collection (procedure) (no date) [facility] (missing) (missing) (missing) Result panel 1513 Specimen collection (procedure) (no date) [facility] (missing) (missing) (missing) Result panel 1514 Specimen collection (procedure) (no date) [facility] (missing) (missing) (missing) Result panel 1515 Specimen collection (procedure) (no date) [facility] (missing) (missing) (missing) Result panel 1516 Specimen collection (procedure) (no date) [facility] (missing) (missing) (missing) Result panel 1517 Specimen collection (procedure) (no date) [facility] (missing) (missing) (missing) Result panel 1518 Specimen collection (procedure) (no date) [facility] (missing) (missing) (missing) Result panel 1519 Specimen collection (procedure) (no date) [facility] (missing) (missing) (missing) Result panel 1520 Specimen collection (procedure) (no date) [facility] (missing) (missing) (missing) Result panel 1521 Specimen collection (procedure) (no date) [facility] (missing) (missing) (missing) Result panel 1522 Specimen collection (procedure) (no date) [facility] (missing) (missing) (missing) Result panel 1523 Specimen collection (procedure) (no date) [facility] (missing) (missing) (missing) Result panel 1524 Specimen collection (procedure) (no date) [facility] (missing) (missing) (missing) Result panel 1525 Specimen collection (procedure) (no date) [facility] (missing) (missing) (missing) Result panel 1526 Specimen collection (procedure) (no date) [facility] (missing) (missing) (missing) Result panel 1527 Specimen collection (procedure) (no date) [facility] (missing) (missing) (missing) Result panel 1528 Specimen collection (procedure) (no date) [facility] (missing) (missing) (missing) Result panel 1529 Specimen collection (procedure) (no date) [facility] (missing) (missing) (missing) Result panel 1530 Specimen collection (procedure) (no date) [facility] (missing) (missing) (missing) Result panel 1531 Specimen collection (procedure) (no date) [facility] (missing) (missing) (missing) Result panel 1532 Specimen collection (procedure) (no date) [facility] (missing) (missing) (missing) Result panel 1533 Specimen collection (procedure) (no date) [facility] (missing) (missing) (missing) Result panel 1534 Specimen collection (procedure) (no date) [facility] (missing) (missing) (missing) Result panel 1535 Specimen collection (procedure) (no date) [facility] (missing) (missing) (missing) Result panel 1536 Specimen collection (procedure) (no date) [facility] (missing) (missing) (missing) Result panel 1537 Specimen collection (procedure) (no date) [facility] (missing) (missing) (missing) Result panel 1538 Specimen collection (procedure) (no date) [facility] (missing) (missing) (missing) Result panel 1539 Specimen collection (procedure) (no date) [facility] (missing) (missing) (missing) Result panel 1540 Specimen collection (procedure) (no date) [facility] (missing) (missing) (missing) Result panel 1541 Specimen collection (procedure) (no date) [facility] (missing) (missing) (missing) Result panel 1542 Specimen collection (procedure) (no date) [facility] (missing) (missing) (missing) Result panel 1543 Specimen collection (procedure) (no date) [facility] (missing) (missing) (missing) Result panel 1544 Specimen collection (procedure) (no date) [facility] (missing) (missing) (missing) Result panel 1545 Specimen collection (procedure) (no date) [facility] (missing) (missing) (missing) Result panel 1546 Specimen collection (procedure) (no date) [facility] (missing) (missing) (missing) Result panel 1547 Specimen collection (procedure) (no date) [facility] (missing) (missing) (missing) Result panel 1548 Specimen collection (procedure) (no date) [facility] (missing) (missing) (missing) Result panel 1549 Specimen collection (procedure) (no date) [facility] (missing) (missing) (missing) Result panel 1550 Specimen collection (procedure) (no date) [facility] (missing) (missing) (missing) Result panel 1551 Specimen collection (procedure) (no date) [facility] (missing) (missing) (missing) Result panel 1552 Specimen collection (procedure) (no date) [facility] (missing) (missing) (missing) Result panel 1553 Specimen collection (procedure) (no date) [facility] (missing) (missing) (missing) Result panel 1554 Specimen collection (procedure) (no date) [facility] (missing) (missing) (missing) Result panel 1555 Specimen collection (procedure) (no date) [facility] (missing) (missing) (missing) Result panel 1556 Specimen collection (procedure) (no date) [facility] (missing) (missing) (missing) Result panel 1557 Specimen collection (procedure) (no date) [facility] (missing) (missing) (missing) Result panel 1558 Specimen collection (procedure) (no date) [facility] (missing) (missing) (missing) Result panel 1559 Specimen collection (procedure) (no date) [facility] (missing) (missing) (missing) Result panel 1560 Specimen collection (procedure) (no date) [facility] (missing) (missing) (missing) Result panel 1561 Specimen collection (procedure) (no date) [facility] (missing) (missing) (missing) Result panel 1562 Specimen collection (procedure) (no date) [facility] (missing) (missing) (missing) Result panel 1563 Specimen collection (procedure) (no date) [facility] (missing) (missing) (missing) Result panel 1564 Specimen collection (procedure) (no date) [facility] (missing) (missing) (missing) Result panel 1565 Specimen collection (procedure) (no date) [facility] (missing) (missing) (missing) Result panel 1566 Specimen collection (procedure) (no date) [facility] (missing) (missing) (missing) Result panel 1567 Specimen collection (procedure) (no date) [facility] (missing) (missing) (missing) Result panel 1568 Specimen collection (procedure) (no date) [facility] (missing) (missing) (missing) Result panel 1569 Specimen collection (procedure) (no date) [facility] (missing) (missing) (missing) Result panel 1570 Specimen collection (procedure) (no date) [facility] (missing) (missing) (missing) Result panel 1571 Specimen collection (procedure) (no date) [facility] (missing) (missing) (missing) Result panel 1572 Specimen collection (procedure) (no date) [facility] (missing) (missing) (missing) Result panel 1573 Specimen collection (procedure) (no date) [facility] (missing) (missing) (missing) Result panel 1574 Specimen collection (procedure) (no date) [facility] (missing) (missing) (missing) Result panel 1575 Specimen collection (procedure) (no date) [facility] (missing) (missing) (missing) Result panel 1576 Specimen collection (procedure) (no date) [facility] (missing) (missing) (missing) Result panel 1577 Specimen collection (procedure) (no date) [facility] (missing) (missing) (missing) Result panel 1578 Specimen collection (procedure) (no date) [facility] (missing) (missing) (missing) Result panel 1579 Specimen collection (procedure) (no date) [facility] (missing) (missing) (missing) Result panel 1580 Specimen collection (procedure) (no date) [facility] (missing) (missing) (missing) Result panel 1581 Specimen collection (procedure) (no date) [facility] (missing) (missing) (missing) Result panel 1582 Specimen collection (procedure) (no date) [facility] (missing) (missing) (missing) Result panel 1583 Specimen collection (procedure) (no date) [facility] (missing) (missing) (missing) Result panel 1584 Specimen collection (procedure) (no date) [facility] (missing) (missing) (missing) Result panel 1585 Specimen collection (procedure) (no date) [facility] (missing) (missing) (missing) Result panel 1586 Specimen collection (procedure) (no date) [facility] (missing) (missing) (missing) Result panel 1587 Specimen collection (procedure) (no date) [facility] (missing) (missing) (missing) Result panel 1588 Specimen collection (procedure) (no date) [facility] (missing) (missing) (missing) Result panel 1589 Specimen collection (procedure) (no date) [facility] (missing) (missing) (missing) Result panel 1590 Specimen collection (procedure) (no date) [facility] (missing) (missing) (missing) Result panel 1591 Specimen collection (procedure) (no date) [facility] (missing) (missing) (missing) Result panel 1592 Specimen collection (procedure) (no date) [facility] (missing) (missing) (missing) Result panel 1593 Specimen collection (procedure) (no date) [facility] (missing) (missing) (missing) Result panel 1594 Specimen collection (procedure) (no date) [facility] (missing) (missing) (missing) Result panel 1595 Specimen collection (procedure) (no date) [facility] (missing) (missing) (missing) Result panel 1596 Specimen collection (procedure) (no date) [facility] (missing) (missing) (missing) Result panel 1597 Specimen collection (procedure) (no date) [facility] (missing) (missing) (missing) Result panel 1598 Specimen collection (procedure) (no date) [facility] (missing) (missing) (missing) Result panel 1599 Specimen collection (procedure) (no date) [facility] (missing) (missing) (missing) Result panel 1600 Specimen collection (procedure) (no date) [facility] (missing) (missing) (missing) Result panel 1601 Specimen collection (procedure) (no date) [facility] (missing) (missing) (missing) Result panel 1602 Specimen collection (procedure) (no date) [facility] (missing) (missing) (missing) Result panel 1603 Specimen collection (procedure) (no date) [facility] (missing) (missing) (missing) Result panel 1604 Specimen collection (procedure) (no date) [facility] (missing) (missing) (missing) Result panel 1605 Specimen collection (procedure) (no date) [facility] (missing) (missing) (missing) Result panel 1606 Specimen collection (procedure) (no date) [facility] (missing) (missing) (missing) Result panel 1607 Specimen collection (procedure) (no date) [facility] (missing) (missing) (missing) Result panel 1608 Specimen collection (procedure) (no date) [facility] (missing) (missing) (missing) Result panel 1609 Specimen collection (procedure) (no date) [facility] (missing) (missing) (missing) Result panel 1610 Specimen collection (procedure) (no date) [facility] (missing) (missing) (missing) Result panel 1611 Specimen collection (procedure) (no date) [facility] (missing) (missing) (missing) Result panel 1612 Specimen collection (procedure) (no date) [facility] (missing) (missing) (missing) Result panel 1613 Specimen collection (procedure) (no date) [facility] (missing) (missing) (missing) Result panel 1614 Specimen collection (procedure) (no date) [facility] (missing) (missing) (missing) Result panel 1615 Specimen collection (procedure) (no date) [facility] (missing) (missing) (missing) Result panel 1616 Specimen collection (procedure) (no date) [facility] (missing) (missing) (missing) Result panel 1617 Specimen collection (procedure) (no date) [facility] (missing) (missing) (missing) Result panel 1618 Specimen collection (procedure) (no date) [facility] (missing) (missing) (missing) Result panel 1619 Specimen collection (procedure) (no date) [facility] (missing) (missing) (missing) Result panel 1620 Specimen collection (procedure) (no date) [facility] (missing) (missing) (missing) Result panel 1621 Specimen collection (procedure) (no date) [facility] (missing) (missing) (missing) Result panel 1622 Specimen collection (procedure) (no date) [facility] (missing) (missing) (missing) Result panel 1623 Specimen collection (procedure) (no date) [facility] (missing) (missing) (missing) Result panel 1624 Specimen collection (procedure) (no date) [facility] (missing) (missing) (missing) Result panel 1625 Specimen collection (procedure) (no date) [facility] (missing) (missing) (missing) Result panel 1626 Specimen collection (procedure) (no date) [facility] (missing) (missing) (missing) Result panel 1627 Specimen collection (procedure) (no date) [facility] (missing) (missing) (missing) Result panel 1628 Specimen collection (procedure) (no date) [facility] (missing) (missing) (missing) Result panel 1629 Specimen collection (procedure) (no date) [facility] (missing) (missing) (missing) Result panel 1630 Specimen collection (procedure) (no date) [facility] (missing) (missing) (missing) Result panel 1631 Specimen collection (procedure) (no date) [facility] (missing) (missing) (missing) Result panel 1632 Specimen collection (procedure) (no date) [facility] (missing) (missing) (missing) Result panel 1633 Specimen collection (procedure) (no date) [facility] (missing) (missing) (missing) Result panel 1634 Specimen collection (procedure) (no date) [facility] (missing) (missing) (missing) Result panel 1635 Specimen collection (procedure) (no date) [facility] (missing) (missing) (missing) Result panel 1636 Specimen collection (procedure) (no date) [facility] (missing) (missing) (missing) Result panel 1637 Specimen collection (procedure) (no date) [facility] (missing) (missing) (missing) Result panel 1638 Specimen collection (procedure) (no date) [facility] (missing) (missing) (missing) Result panel 1639 Specimen collection (procedure) (no date) [facility] (missing) (missing) (missing) Result panel 1640 Specimen collection (procedure) (no date) [facility] (missing) (missing) (missing) Result panel 1641 Specimen collection (procedure) (no date) [facility] (missing) (missing) (missing) Result panel 1642 Specimen collection (procedure) (no date) [facility] (missing) (missing) (missing) Result panel 1643 Specimen collection (procedure) (no date) [facility] (missing) (missing) (missing) Result panel 1644 Specimen collection (procedure) (no date) [facility] (missing) (missing) (missing) Result panel 1645 Specimen collection (procedure) (no date) [facility] (missing) (missing) (missing) Result panel 1646 Specimen collection (procedure) (no date) [facility] (missing) (missing) (missing) Result panel 1647 Specimen collection (procedure) (no date) [facility] (missing) (missing) (missing) Result panel 1648 Specimen collection (procedure) (no date) [facility] (missing) (missing) (missing) Result panel 1649 Specimen collection (procedure) (no date) [facility] (missing) (missing) (missing) Result panel 1650 Specimen collection (procedure) (no date) [facility] (missing) (missing) (missing) Result panel 1651 Specimen collection (procedure) (no date) [facility] (missing) (missing) (missing) Result panel 1652 Specimen collection (procedure) (no date) [facility] (missing) (missing) (missing) Result panel 1653 Specimen collection (procedure) (no date) [facility] (missing) (missing) (missing) Result panel 1654 Specimen collection (procedure) (no date) [facility] (missing) (missing) (missing) Result panel 1655 Specimen collection (procedure) (no date) [facility] (missing) (missing) (missing) Result panel 1656 Specimen collection (procedure) (no date) [facility] (missing) (missing) (missing) Result panel 1657 Specimen collection (procedure) (no date) [facility] (missing) (missing) (missing) Result panel 1658 Specimen collection (procedure) (no date) [facility] (missing) (missing) (missing) Result panel 1659 Specimen collection (procedure) (no date) [facility] (missing) (missing) (missing) Result panel 1660 Specimen collection (procedure) (no date) [facility] (missing) (missing) (missing) Result panel 1661 Specimen collection (procedure) (no date) [facility] (missing) (missing) (missing) Result panel 1662 Specimen collection (procedure) (no date) [facility] (missing) (missing) (missing) Result panel 1663 Specimen collection (procedure) (no date) [facility] (missing) (missing) (missing) Result panel 1664 Specimen collection (procedure) (no date) [facility] (missing) (missing) (missing) Result panel 1665 Specimen collection (procedure) (no date) [facility] (missing) (missing) (missing) Result panel 1666 Specimen collection (procedure) (no date) [facility] (missing) (missing) (missing) Result panel 1667 Specimen collection (procedure) (no date) [facility] (missing) (missing) (missing) Result panel 1668 Specimen collection (procedure) (no date) [facility] (missing) (missing) (missing) Result panel 1669 Specimen collection (procedure) (no date) [facility] (missing) (missing) (missing) Result panel 1670 Specimen collection (procedure) (no date) [facility] (missing) (missing) (missing) Result panel 1671 Specimen collection (procedure) (no date) [facility] (missing) (missing) (missing) Result panel 1672 Specimen collection (procedure) (no date) [facility] (missing) (missing) (missing) Result panel 1673 Specimen collection (procedure) (no date) [facility] (missing) (missing) (missing) Result panel 1674 Specimen collection (procedure) (no date) [facility] (missing) (missing) (missing) Result panel 1675 Specimen collection (procedure) (no date) [facility] (missing) (missing) (missing) Result panel 1676 Specimen collection (procedure) (no date) [facility] (missing) (missing) (missing) Result panel 1677 Specimen collection (procedure) (no date) [facility] (missing) (missing) (missing) Result panel 1678 Specimen collection (procedure) (no date) [facility] (missing) (missing) (missing) Result panel 1679 Specimen collection (procedure) (no date) [facility] (missing) (missing) (missing) Result panel 1680 Specimen collection (procedure) (no date) [facility] (missing) (missing) (missing) Result panel 1681 Specimen collection (procedure) (no date) [facility] (missing) (missing) (missing) Result panel 1682 Specimen collection (procedure) (no date) [facility] (missing) (missing) (missing) Result panel 1683 Specimen collection (procedure) (no date) [facility] (missing) (missing) (missing) Result panel 1684 Specimen collection (procedure) (no date) [facility] (missing) (missing) (missing) Result panel 1685 Specimen collection (procedure) (no date) [facility] (missing) (missing) (missing) Result panel 1686 Specimen collection (procedure) (no date) [facility] (missing) (missing) (missing) Result panel 1687 Specimen collection (procedure) (no date) [facility] (missing) (missing) (missing) Result panel 1688 Specimen collection (procedure) (no date) [facility] (missing) (missing) (missing) Result panel 1689 Specimen collection (procedure) (no date) [facility] (missing) (missing) (missing) Result panel 1690 Specimen collection (procedure) (no date) [facility] (missing) (missing) (missing) Result panel 1691 Specimen collection (procedure) (no date) [facility] (missing) (missing) (missing) Result panel 1692 Specimen collection (procedure) (no date) [facility] (missing) (missing) (missing) Result panel 1693 Specimen collection (procedure) (no date) [facility] (missing) (missing) (missing) Result panel 1694 Specimen collection (procedure) (no date) [facility] (missing) (missing) (missing) Result panel 1695 Specimen collection (procedure) (no date) [facility] (missing) (missing) (missing) Result panel 1696 Specimen collection (procedure) (no date) [facility] (missing) (missing) (missing) Result panel 1697 Specimen collection (procedure) (no date) [facility] (missing) (missing) (missing) Result panel 1698 Specimen collection (procedure) (no date) [facility] (missing) (missing) (missing) Result panel 1699 Specimen collection (procedure) (no date) [facility] (missing) (missing) (missing) Result panel 1700 Specimen collection (procedure) (no date) [facility] (missing) (missing) (missing) Result panel 1701 Specimen collection (procedure) (no date) [facility] (missing) (missing) (missing) Result panel 1702 Specimen collection (procedure) (no date) [facility] (missing) (missing) (missing) Result panel 1703 Specimen collection (procedure) (no date) [facility] (missing) (missing) (missing) Result panel 1704 Specimen collection (procedure) (no date) [facility] (missing) (missing) (missing) Result panel 1705 Specimen collection (procedure) (no date) [facility] (missing) (missing) (missing) Result panel 1706 Specimen collection (procedure) (no date) [facility] (missing) (missing) (missing) Result panel 1707 Specimen collection (procedure) (no date) [facility] (missing) (missing) (missing) Result panel 1708 Specimen collection (procedure) (no date) [facility] (missing) (missing) (missing) Result panel 1709 Specimen collection (procedure) (no date) [facility] (missing) (missing) (missing) Result panel 1710 Specimen collection (procedure) (no date) [facility] (missing) (missing) (missing) Result panel 1711 Specimen collection (procedure) (no date) [facility] (missing) (missing) (missing) Result panel 1712 Specimen collection (procedure) (no date) [facility] (missing) (missing) (missing) Result panel 1713 Specimen collection (procedure) (no date) [facility] (missing) (missing) (missing) Result panel 1714 Specimen collection (procedure) (no date) [facility] (missing) (missing) (missing) Result panel 1715 Specimen collection (procedure) (no date) [facility] (missing) (missing) (missing) Result panel 1716 Specimen collection (procedure) (no date) [facility] (missing) (missing) (missing) Result panel 1717 Specimen collection (procedure) (no date) [facility] (missing) (missing) (missing) Result panel 1718 Specimen collection (procedure) (no date) [facility] (missing) (missing) (missing) Result panel 1719 Specimen collection (procedure) (no date) [facility] (missing) (missing) (missing) Result panel 1720 Specimen collection (procedure) (no date) [facility] (missing) (missing) (missing) Result panel 1721 Specimen collection (procedure) (no date) [facility] (missing) (missing) (missing) Result panel 1722 Specimen collection (procedure) (no date) [facility] (missing) (missing) (missing) Result panel 1723 Specimen collection (procedure) (no date) [facility] (missing) (missing) (missing) Result panel 1724 Specimen collection (procedure) (no date) [facility] (missing) (missing) (missing) Result panel 1725 Specimen collection (procedure) (no date) [facility] (missing) (missing) (missing) Result panel 1726 Specimen collection (procedure) (no date) [facility] (missing) (missing) (missing) Result panel 1727 Specimen collection (procedure) (no date) [facility] (missing) (missing) (missing) Result panel 1728 Specimen collection (procedure) (no date) [facility] (missing) (missing) (missing) Result panel 1729 Specimen collection (procedure) (no date) [facility] (missing) (missing) (missing) Result panel 1730 Specimen collection (procedure) (no date) [facility] (missing) (missing) (missing) Result panel 1731 Specimen collection (procedure) (no date) [facility] (missing) (missing) (missing) Result panel 1732 Specimen collection (procedure) (no date) [facility] (missing) (missing) (missing) Result panel 1733 Specimen collection (procedure) (no date) [facility] (missing) (missing) (missing) Result panel 1734 Specimen collection (procedure) (no date) [facility] (missing) (missing) (missing) Result panel 1735 Specimen collection (procedure) (no date) [facility] (missing) (missing) (missing) Result panel 1736 Specimen collection (procedure) (no date) [facility] (missing) (missing) (missing) Result panel 1737 Specimen collection (procedure) (no date) [facility] (missing) (missing) (missing) Result panel 1738 Specimen collection (procedure) (no date) [facility] (missing) (missing) (missing) Result panel 1739 Specimen collection (procedure) (no date) [facility] (missing) (missing) (missing) Result panel 1740 Specimen collection (procedure) (no date) [facility] (missing) (missing) (missing) Result panel 1741 Specimen collection (procedure) (no date) [facility] (missing) (missing) (missing) Result panel 1742 Specimen collection (procedure) (no date) [facility] (missing) (missing) (missing) Result panel 1743 Specimen collection (procedure) (no date) [facility] (missing) (missing) (missing) Result panel 1744 Specimen collection (procedure) (no date) [facility] (missing) (missing) (missing) Result panel 1745 Specimen collection (procedure) (no date) [facility] (missing) (missing) (missing) Result panel 1746 Specimen collection (procedure) (no date) [facility] (missing) (missing) (missing) Result panel 1747 Specimen collection (procedure) (no date) [facility] (missing) (missing) (missing) Result panel 1748 Specimen collection (procedure) (no date) [facility] (missing) (missing) (missing) Result panel 1749 Specimen collection (procedure) (no date) [facility] (missing) (missing) (missing) Result panel 1750 Specimen collection (procedure) (no date) [facility] (missing) (missing) (missing) Result panel 1751 Specimen collection (procedure) (no date) [facility] (missing) (missing) (missing) Result panel 1752 Specimen collection (procedure) (no date) [facility] (missing) (missing) (missing) Result panel 1753 Specimen collection (procedure) (no date) [facility] (missing) (missing) (missing) Result panel 1754 Specimen collection (procedure) (no date) [facility] (missing) (missing) (missing) Result panel 1755 Specimen collection (procedure) (no date) [facility] [facility] (missing[facility] (missing) Result panel 1756 Specimen collection (procedure) (no date) [facility] (missing) (missing) (missing) Result panel 1757 Specimen collection (procedure) (no date) [facility] (missing) (missing) (missing) Result panel 1758 Specimen collection (procedure) (no date) [facility] (missing) (missing) (missing) Result panel 1759 Specimen collection (procedure) (no date) [facility] (missing) (missing) (missing) Result panel 1760 Specimen collection (procedure) (no date) [facility] (missing) (missing) (missing) Result panel 1761 Specimen collection (procedure) (no date) [facility] (missing) (missing) (missing) Result panel 1762 Specimen collection (procedure) (no date) [facility] (missing) (missing) (missing) Result panel 1763 Specimen collection (procedure) (no date) [facility] (missing) (missing) (missing) Result panel 1764 Specimen collection (procedure) (no date) [facility] (missing) (missing) (missing) Result panel 1765 Specimen collection (procedure) (no date) [facility] (missing) (missing) (missing) Result panel 1766 Specimen collection (procedure) (no date) [facility] (missing) (missing) (missing) Result panel 1767 Specimen collection (procedure) (no date) [facility] (missing) (missing) (missing) Result panel 1768 Specimen collection (procedure) (no date) [facility] (missing) (missing) (missing) Result panel 1769 Specimen collection (procedure) (no date) [facility] (missing) (missing) (missing) Result panel 1770 Specimen collection (procedure) (no date) [facility] (missing) (missing) (missing) Result panel 1771 Specimen collection (procedure) (no date) [facility] (missing) (missing) (missing) Result panel 1772 Specimen collection (procedure) (no date) [facility] (missing) (missing) (missing) Result panel 1773 Specimen collection (procedure) (no date) [facility] (missing) (missing) (missing) Result panel 1774 Specimen collection (procedure) (no date) [facility] (missing) (missing) (missing) Result panel 1775 Specimen collection (procedure) (no date) [facility] (missing) (missing) (missing) Result panel 1776 Specimen collection (procedure) (no date) [facility] (missing) (missing) (missing) Result panel 1777 Specimen collection (procedure) (no date) [facility] (missing) (missing) (missing) Result panel 1778 Specimen collection (procedure) (no date) [facility] (missing) (missing) (missing) Result panel 1779 Specimen collection (procedure) (no date) [facility] (missing) (missing) (missing) Result panel 1780 Specimen collection (procedure) (no date) [facility] (missing) (missing) (missing) Result panel 1781 Specimen collection (procedure) (no date) [facility] (missing) (missing) (missing) Result panel 1782 Specimen collection (procedure) (no date) [facility] (missing) (missing) (missing) Result panel 1783 Specimen collection (procedure) (no date) [facility] (missing) (missing) (missing) Result panel 1784 Specimen collection (procedure) (no date) [facility] (missing) (missing) (missing) Result panel 1785 Specimen collection (procedure) (no date) [facility] (missing) (missing) (missing) Result panel 1786 Specimen collection (procedure) (no date) [facility] (missing) (missing) (missing) Result panel 1787 Specimen collection (procedure) (no date) [facility] (missing) (missing) (missing) Result panel 1788 Specimen collection (procedure) (no date) [facility] (missing) (missing) (missing) Result panel 1789 Specimen collection (procedure) (no date) [facility] (missing) (missing) (missing) Result panel 1790 Specimen collection (procedure) (no date) [facility] (missing) (missing) (missing) Result panel 1791 Specimen collection (procedure) (no date) [facility] (missing) (missing) (missing) Result panel 1792 Specimen collection (procedure) (no date) [facility] (missing) (missing) (missing) Result panel 1793 Specimen collection (procedure) (no date) [facility] (missing) (missing) (missing) Result panel 1794 Specimen collection (procedure) (no date) [facility] (missing) (missing) (missing) Result panel 1795 Specimen collection (procedure) (no date) [facility] (missing) (missing) (missing) Result panel 1796 Specimen collection (procedure) (no date) [facility] (missing) (missing) (missing) Result panel 1797 Specimen collection (procedure) (no date) [facility] (missing) (missing) (missing) Result panel 1798 Specimen collection (procedure) (no date) [facility] (missing) (missing) (missing) Result panel 1799 Specimen collection (procedure) (no date) [facility] (missing) (missing) (missing) Result panel 1800 Specimen collection (procedure) (no date) [facility] (missing) (missing) (missing) Result panel 1801 Specimen collection (procedure) (no date) [facility] (missing) (missing) (missing) Result panel 1802 Specimen collection (procedure) (no date) [facility] (missing) (missing) (missing) Result panel 1803 Specimen collection (procedure) (no date) [facility] (missing) (missing) (missing) Result panel 1804 Specimen collection (procedure) (no date) [facility] (missing) (missing) (missing) Result panel 1805 Specimen collection (procedure) (no date) [facility] (missing) (missing) (missing) Result panel 1806 Specimen collection (procedure) (no date) [facility] (missing) (missing) (missing) Result panel 1807 Specimen collection (procedure) (no date) [facility] (missing) (missing) (missing) Result panel 1808 Specimen collection (procedure) (no date) [facility] (missing) (missing) (missing) Result panel 1809 Specimen collection (procedure) (no date) [facility] (missing) (missing) (missing) Result panel 1810 Specimen collection (procedure) (no date) [facility] (missing) (missing) (missing) Result panel 1811 Specimen collection (procedure) (no date) [facility] (missing) (missing) (missing) Result panel 1812 Specimen collection (procedure) (no date) [facility] (missing) (missing) (missing) Result panel 1813 Specimen collection (procedure) (no date) [facility] (missing) (missing) (missing) Result panel 1814 Specimen collection (procedure) (no date) [facility] (missing) (missing) (missing) Result panel 1815 Specimen collection (procedure) (no date) [facility] (missing) (missing) (missing) Result panel 1816 Specimen collection (procedure) (no date) [facility] (missing) (missing) (missing) Result panel 1817 Specimen collection (procedure) (no date) [facility] (missing) (missing) (missing) Result panel 1818 Specimen collection (procedure) (no date) [facility] (missing) (missing) (missing) Result panel 1819 Specimen collection (procedure) (no date) [facility] (missing) (missing) (missing) Result panel 1820 Specimen collection (procedure) (no date) [facility] (missing) (missing) (missing) Result panel 1821 Specimen collection (procedure) (no date) [facility] (missing) (missing) (missing) Result panel 1822 Specimen collection (procedure) (no date) [facility] (missing) (missing) (missing) Result panel 1823 Specimen collection (procedure) (no date) [facility] (missing) (missing) (missing) Result panel 1824 Specimen collection (procedure) (no date) [facility] (missing) (missing) (missing) Result panel 1825 Specimen collection (procedure) (no date) [facility] (missing) (missing) (missing) Result panel 1826 Specimen collection (procedure) (no date) [facility] (missing) (missing) (missing) Result panel 1827 Specimen collection (procedure) (no date) [facility] (missing) (missing) (missing) Result panel 1828 Specimen collection (procedure) (no date) [facility] (missing) (missing) (missing) Result panel 1829 Specimen collection (procedure) (no date) [facility] (missing) (missing) (missing) Result panel 1830 Specimen collection (procedure) (no date) [facility] (missing) (missing) (missing) Result panel 1831 Specimen collection (procedure) (no date) [facility] (missing) (missing) (missing) Result panel 1832 Specimen collection (procedure) (no date) [facility] (missing) (missing) (missing) Result panel 1833 Specimen collection (procedure) (no date) [facility] (missing) (missing) (missing) Result panel 1834 Specimen collection (procedure) (no date) [facility] (missing) (missing) (missing) Result panel 1835 Specimen collection (procedure) (no date) [facility] (missing) (missing) (missing) Result panel 1836 Specimen collection (procedure) (no date) [facility] (missing) (missing) (missing) Result panel 1837 Specimen collection (procedure) (no date) [facility] (missing) (missing) (missing) Result panel 1838 Specimen collection (procedure) (no date) [facility] (missing) (missing) (missing) Result panel 1839 Specimen collection (procedure) (no date) [facility] (missing) (missing) (missing) Result panel 1840 Specimen collection (procedure) (no date) [facility] (missing) (missing) (missing) Result panel 1841 Specimen collection (procedure) (no date) [facility] (missing) (missing) (missing) Result panel 1842 Specimen collection (procedure) (no date) [facility] (missing) (missing) (missing) Result panel 1843 Specimen collection (procedure) (no date) [facility] (missing) (missing) (missing) Result panel 1844 Specimen collection (procedure) (no date) [facility] (missing) (missing) (missing) Result panel 1845 Specimen collection (procedure) (no date) [facility] (missing) (missing) (missing) Result panel 1846 Specimen collection (procedure) (no date) [facility] (missing) (missing) (missing) Result panel 1847 Specimen collection (procedure) (no date) [facility] (missing) (missing) (missing) Result panel 1848 Specimen collection (procedure) (no date) [facility] (missing) (missing) (missing) Result panel 1849 Specimen collection (procedure) (no date) [facility] (missing) (missing) (missing) Result panel 1850 Specimen collection (procedure) (no date) [facility] (missing) (missing) (missing) Result panel 1851 Specimen collection (procedure) (no date) [facility] (missing) (missing) (missing) Result panel 1852 Specimen collection (procedure) (no date) [facility] (missing) (missing) (missing) Result panel 1853 Specimen collection (procedure) (no date) [facility] (missing) (missing) (missing) Result panel 1854 Specimen collection (procedure) (no date) [facility] (missing) (missing) (missing) Result panel 1855 Specimen collection (procedure) (no date) [facility] (missing) (missing) (missing) Result panel 1856 Specimen collection (procedure) (no date) [facility] (missing) (missing) (missing) Result panel 1857 Specimen collection (procedure) (no date) [facility] (missing) (missing) (missing) Result panel 1858 Specimen collection (procedure) (no date) [facility] (missing) (missing) (missing) Result panel 1859 Specimen collection (procedure) (no date) [facility] (missing) (missing) (missing) Result panel 1860 Specimen collection (procedure) (no date) [facility] (missing) (missing) (missing) Result panel 1861 Specimen collection (procedure) (no date) [facility] (missing) (missing) (missing) Result panel 1862 Specimen collection (procedure) (no date) [facility] (missing) (missing) (missing) Result panel 1863 Specimen collection (procedure) (no date) [facility] (missing) (missing) (missing) Result panel 1864 Specimen collection (procedure) (no date) [facility] (missing) (missing) (missing) Result panel 1865 Specimen collection (procedure) (no date) [facility] (missing) (missing) (missing) Result panel 1866 Specimen collection (procedure) (no date) [facility] (missing) (missing) (missing) Result panel 1867 Specimen collection (procedure) (no date) [facility] (missing) (missing) (missing) Result panel 1868 Specimen collection (procedure) (no date) [facility] (missing) (missing) (missing) Result panel 1869 Specimen collection (procedure) (no date) [facility] (missing) (missing) (missing) Result panel 1870 Specimen collection (procedure) (no date) [facility] (missing) (missing) (missing) Result panel 1871 Specimen collection (procedure) (no date) [facility] (missing) (missing) (missing) Result panel 1872 Specimen collection (procedure) (no date) [facility] (missing) (missing) (missing) Result panel 1873 Specimen collection (procedure) (no date) [facility] (missing) (missing) (missing) Result panel 1874 Specimen collection (procedure) (no date) [facility] (missing) (missing) (missing) Result panel 1875 Specimen collection (procedure) (no date) [facility] (missing) (missing) (missing) Result panel 1876 Specimen collection (procedure) (no date) [facility] (missing) (missing) (missing) Result panel 1877 Specimen collection (procedure) (no date) [facility] (missing) (missing) (missing) Result panel 1878 Specimen collection (procedure) (no date) [facility] (missing) (missing) (missing) Result panel 1879 Specimen collection (procedure) (no date) [facility] (missing) (missing) (missing) Result panel 1880 Specimen collection (procedure) (no date) [facility] (missing) (missing) (missing) Result panel 1881 Specimen collection (procedure) (no date) [facility] (missing) (missing) (missing) Result panel 1882 Specimen collection (procedure) (no date) [facility] (missing) (missing) (missing) Result panel 1883 Specimen collection (procedure) (no date) [facility] (missing) (missing) (missing) Result panel 1884 Specimen collection (procedure) (no date) [facility] (missing) (missing) (missing) Result panel 1885 Specimen collection (procedure) (no date) [facility] (missing) (missing) (missing) Result panel 1886 Specimen collection (procedure) (no date) [facility] (missing) (missing) (missing) Result panel 1887 Specimen collection (procedure) (no date) [facility] (missing) (missing) (missing) Result panel 1888 Specimen collection (procedure) (no date) [facility] (missing) (missing) (missing) Result panel 1889 Specimen collection (procedure) (no date) [facility] (missing) (missing) (missing) Result panel 1890 Specimen collection (procedure) (no date) [facility] (missing) (missing) (missing) Result panel 1891 Specimen collection (procedure) (no date) [facility] (missing) (missing) (missing) Result panel 1892 Specimen collection (procedure) (no date) [facility] (missing) (missing) (missing) Result panel 1893 Specimen collection (procedure) (no date) [facility] (missing) (missing) (missing) Result panel 1894 Specimen collection (procedure) (no date) [facility] (missing) (missing) (missing) Result panel 1895 Specimen collection (procedure) (no date) [facility] (missing) (missing) (missing) Result panel 1896 Specimen collection (procedure) (no date) [facility] (missing) (missing) (missing) Result panel 1897 Specimen collection (procedure) (no date) [facility] (missing) (missing) (missing) Result panel 1898 Specimen collection (procedure) (no date) [facility] (missing) (missing) (missing) Result panel 1899 Specimen collection (procedure) (no date) [facility] (missing) (missing) (missing) Result panel 1900 Specimen collection (procedure) (no date) [facility] (missing) (missing) (missing) Result panel 1901 Specimen collection (procedure) (no date) [facility] (missing) (missing) (missing) Result panel 1902 Specimen collection (procedure) (no date) [facility] (missing) (missing) (missing) Result panel 1903 Specimen collection (procedure) (no date) [facility] (missing) (missing) (missing) Result panel 1904 Specimen collection (procedure) (no date) [facility] (missing) (missing) (missing) Result panel 1905 Specimen collection (procedure) (no date) [facility] (missing) (missing) (missing) Result panel 1906 Specimen collection (procedure) (no date) [facility] (missing) (missing) (missing) Result panel 1907 Specimen collection (procedure) (no date) [facility] (missing) (missing) (missing) Result panel 1908 Specimen collection (procedure) (no date) [facility] (missing) (missing) (missing) Result panel 1909 Specimen collection (procedure) (no date) [facility] (missing) (missing) (missing) Result panel 1910 Specimen collection (procedure) (no date) [facility] (missing) (missing) (missing) Result panel 1911 Specimen collection (procedure) (no date) [facility] (missing) (missing) (missing) Result panel 1912 Specimen collection (procedure) (no date) [facility] (missing) (missing) (missing) Result panel 1913 Specimen collection (procedure) (no date) [facility] (missing) (missing) (missing) Result panel 1914 Specimen collection (procedure) (no date) [facility] (missing) (missing) (missing) Result panel 1915 Specimen collection (procedure) (no date) [facility] (missing) (missing) (missing) Result panel 1916 Specimen collection (procedure) (no date) [facility] (missing) (missing) (missing) Result panel 1917 Specimen collection (procedure) (no date) [facility] (missing) (missing) (missing) Result panel 1918 Specimen collection (procedure) (no date) [facility] (missing) (missing) (missing) Result panel 1919 Specimen collection (procedure) (no date) [facility] (missing) (missing) (missing) Result panel 1920 Specimen collection (procedure) (no date) [facility] (missing) (missing) (missing) Result panel 1921 Specimen collection (procedure) (no date) [facility] (missing) (missing) (missing) Result panel 1922 Specimen collection (procedure) (no date) [facility] (missing) (missing) (missing) Result panel 1923 Specimen collection (procedure) (no date) [facility] (missing) (missing) (missing) Result panel 1924 Specimen collection (procedure) (no date) [facility] (missing) (missing) (missing) Result panel 1925 Specimen collection (procedure) (no date) [facility] (missing) (missing) (missing) Result panel 1926 Specimen collection (procedure) (no date) [facility] (missing) (missing) (missing) Result panel 1927 Specimen collection (procedure) (no date) [facility] (missing) (missing) (missing) Result panel 1928 Specimen collection (procedure) (no date) [facility] (missing) (missing) (missing) Result panel 1929 Specimen collection (procedure) (no date) [facility] (missing) (missing) (missing) Result panel 1930 Specimen collection (procedure) (no date) [facility] (missing) (missing) (missing) Result panel 1931 Specimen collection (procedure) (no date) [facility] (missing) (missing) (missing) Result panel 1932 Specimen collection (procedure) (no date) [facility] (missing) (missing) (missing) Result panel 1933 Specimen collection (procedure) (no date) [facility] (missing) (missing) (missing) Result panel 1934 Specimen collection (procedure) (no date) [facility] (missing) (missing) (missing) Result panel 1935 Specimen collection (procedure) (no date) [facility] (missing) (missing) (missing) Result panel 1936 Specimen collection (procedure) (no date) [facility] (missing) (missing) (missing) Result panel 1937 Specimen collection (procedure) (no date) [facility] (missing) (missing) (missing) Result panel 1938 Specimen collection (procedure) (no date) [facility] (missing) (missing) (missing) Result panel 1939 Specimen collection (procedure) (no date) [facility] (missing) (missing) (missing) Result panel 1940 Specimen collection (procedure) (no date) [facility] (missing) (missing) (missing) Result panel 1941 Specimen collection (procedure) (no date) [facility] (missing) (missing) (missing) Result panel 1942 Specimen collection (procedure) (no date) [facility] (missing) (missing) (missing) Result panel 1943 Specimen collection (procedure) (no date) [facility] (missing) (missing) (missing) Result panel 1944 Specimen collection (procedure) (no date) [facility] (missing) (missing) (missing) Result panel 1945 Specimen collection (procedure) (no date) [facility] (missing) (missing) (missing) Result panel 1946 Specimen collection (procedure) (no date) [facility] (missing) (missing) (missing) Result panel 194 Specimen collection (procedure) (no date) [facility] (missing) (missing) (missing) Result panel 194 Specimen collection (procedure) (no date) [facility] (missing) (missing) (missing) Result panel 194 Specimen collection (procedure) (no date) [facility] (missing) (missing) (missing) Result panel 1950 Specimen collection (procedure) (no date) [facility] (missing) (missing) (missing) Result panel 195 Specimen collection (procedure) (no date) [facility] (missing) (missing) (missing) Result panel 195 Specimen collection (procedure) (no date) [facility] (missing) (missing) (missing) Result panel 195 Specimen collection (procedure) (no date) [facility] (missing) (missing) (missing) Result panel 195 Specimen collection (procedure) (no date) [facility] (missing) (missing) (missing) Result panel 195 Specimen collection (procedure) (no date) [facility] (missing) (missing) (missing) Result panel 195 Specimen collection (procedure) (no date) [facility] (missing) (missing) (missing) Result panel 195 Specimen collection (procedure) (no date) [facility] (missing) (missing) (missing) Result panel 195 Specimen collection (procedure) (no date) [facility] (missing) (missing) (missing) Result panel 195 Specimen collection (procedure) (no date) [facility] (missing) (missing) (missing) Result panel 1960 Specimen collection (procedure) (no date) [facility] (missing) (missing) (missing) Result panel 1961 Specimen collection (procedure) (no date) [facility] (missing) (missing) (missing) Result panel 1962 Specimen collection (procedure) (no date) [facility] (missing) (missing) (missing) Result panel 1963 Specimen collection (procedure) (no date) [facility] (missing) (missing) (missing) Result panel 1964 Specimen collection (procedure) (no date) [facility] (missing) (missing) (missing) Result panel 1965 Specimen collection (procedure) (no date) [facility] (missing) (missing) (missing) Result panel 1966 Specimen collection (procedure) (no date) [facility] (missing) (missing) (missing) Result panel 1967 Specimen collection (procedure) (no date) [facility] (missing) (missing) (missing) Result panel 1968 Specimen collection (procedure) (no date) [facility] (missing) (missing) (missing) Result panel 1969 Specimen collection (procedure) (no date) [facility] (missing) (missing) (missing) Result panel 1970 Specimen collection (procedure) (no date) [facility] (missing) (missing) (missing) Result panel 1971 Specimen collection (procedure) (no date) [facility] (missing) (missing) (missing) Result panel 1972 Specimen collection (procedure) (no date) [facility] (missing) (missing) (missing) Result panel 1973 Specimen collection (procedure) (no date) [facility] (missing) (missing) (missing) Result panel 1974 Specimen collection (procedure) (no date) [facility] (missing) (missing) (missing) Result panel 1975 Specimen collection (procedure) (no date) [facility] (missing) (missing) (missing) Result panel 1976 Specimen collection (procedure) (no date) [facility] (missing) (missing) (missing) Result panel 1977 Specimen collection (procedure) (no date) [facility] (missing) (missing) (missing) Result panel 1978 Specimen collection (procedure) (no date) [facility] (missing) (missing) (missing) Result panel 1979 Specimen collection (procedure) (no date) [facility] (missing) (missing) (missing) Result panel 1980 Specimen collection (procedure) (no date) [facility] (missing) (missing) (missing) Result panel 1981 Specimen collection (procedure) (no date) [facility] (missing) (missing) (missing) Result panel 1982 Specimen collection (procedure) (no date) [facility] (missing) (missing) (missing) Result panel 1983 Specimen collection (procedure) (no date) [facility] (missing) (missing) (missing) Result panel 1984 Specimen collection (procedure) (no date) [facility] (missing) (missing) (missing) Result panel 1985 Specimen collection (procedure) (no date) [facility] (missing) (missing) (missing) Result panel 1986 Specimen collection (procedure) (no date) [facility] (missing) (missing) (missing) Result panel 1987 Specimen collection (procedure) (no date) [facility] (missing) (missing) (missing) Result panel 1988 Specimen collection (procedure) (no date) [facility] (missing) (missing) (missing) Result panel 1989 Specimen collection (procedure) (no date) [facility] (missing) (missing) (missing) Result panel 1990 Specimen collection (procedure) (no date) [facility] (missing) (missing) (missing) Result panel 1991 Specimen collection (procedure) (no date) [facility] (missing) (missing) (missing) Result panel 1992 Specimen collection (procedure) (no date) [facility] (missing) (missing) (missing) Result panel 1993 Specimen collection (procedure) (no date) [facility] (missing) (missing) (missing) Result panel 1994 Specimen collection (procedure) (no date) [facility] (missing) (missing) (missing) Result panel 1995 Specimen collection (procedure) (no date) [facility] (missing) (missing) (missing) Result panel 1996 Specimen collection (procedure) (no date) [facility] (missing) (missing) (missing) Result panel 1997 Specimen collection (procedure) (no date) [facility] (missing) (missing) (missing) Result panel 1998 Specimen collection (procedure) (no date) [facility] (missing) (missing) (missing) Result panel 1998 Specimen collection (procedure) (no date) [facility] (missing) (missing) (missing) Result panel 1999 Specimen collection (procedure) (no date) [facility] (missing) (missing) (missing) Result panel 2000 Specimen collection (procedure) (no date) [facility] (missing) (missing) (missing) Result panel 2002 Specimen collection (procedure) (no date) [facility] (missing) (missing) (missing) Result panel 2003 Specimen collection (procedure) (no date) [facility] (missing) (missing) (missing) Result panel 2004 Specimen collection (procedure) (no date) [facility] (missing) (missing) (missing) Result panel 2005 Specimen collection (procedure) (no date) [facility] (missing) (missing) (missing) Result panel 2006 Specimen collection (procedure) (no date) [facility] (missing) (missing) (missing) Result panel 2007 Specimen collection (procedure) (no date) [facility] (missing) (missing) (missing) Result panel 2008 Specimen collection (procedure) (no date) [facility] (missing) (missing) (missing) Result panel 2009 Specimen collection (procedure) (no date) [facility] (missing) (missing) (missing) Result panel 2010 Specimen collection (procedure) (no date) [facility] (missing) (missing) (missing) Result panel 2011 Specimen collection (procedure) (no date) [facility] (missing) (missing) (missing) Result panel 2012 Specimen collection (procedure) (no date) [facility] (missing) (missing) (missing) Result panel 2013 Specimen collection (procedure) (no date) [facility] (missing) (missing) (missing) Result panel 2014 Specimen collection (procedure) (no date) [facility] (missing) (missing) (missing) Result panel 2015 Specimen collection (procedure) (no date) [facility] (missing) (missing) (missing) Result panel 2016 Specimen collection (procedure) (no date) [facility] (missing) (missing) (missing) Result panel 2017 Specimen collection (procedure) (no date) [facility] (missing) (missing) (missing) Result panel 2018 Specimen collection (procedure) (no date) [facility] (missing) (missing) (missing) Result panel 2019 Specimen collection (procedure) (no date) [facility] (missing) (missing) (missing) Result panel 2020 Specimen collection (procedure) (no date) [facility] (missing) (missing) (missing) Result panel 2020 Specimen collection (procedure) (no date) [facility] (missing) (missing) (missing) Result panel 2021 Specimen collection (procedure) (no date) [facility] (missing) (missing) (missing) Result panel 2022 Specimen collection (procedure) (no date) [facility] (missing) (missing) (missing) Result panel 2023 Specimen collection (procedure) (no date) [facility] (missing) (missing) (missing) Result panel 2024 Specimen collection (procedure) (no date) [facility] (missing) (missing) (missing) Result panel 2025 Specimen collection (procedure) (no date) [facility] (missing) (missing) (missing) Result panel 2026 Specimen collection (procedure) (no date) [facility] (missing) (missing) (missing) Result panel 2027 Specimen collection (procedure) (no date) [facility] (missing) (missing) (missing) Result panel 2028 Specimen collection (procedure) (no date) [facility] (missing) (missing) (missing) Result panel 2029 Specimen collection (procedure) (no date) [facility] (missing) (missing) (missing) Result panel 2030 Specimen collection (procedure) (no date) [facility] (missing) (missing) (missing) Result panel 2031 Specimen collection (procedure) (no date) [facility] (missing) (missing) (missing) Result panel 2032 Specimen collection (procedure) (no date) [facility] (missing) (missing) (missing) Result panel 2033 Specimen collection (procedure) (no date) [facility] (missing) (missing) (missing) Result panel 2034 Specimen collection (procedure) (no date) [facility] (missing) (missing) (missing) Result panel 2035 Specimen collection (procedure) (no date) [facility] (missing) (missing) (missing) Result panel 2036 Specimen collection (procedure) (no date) [facility] (missing) (missing) (missing) Result panel 2037 Specimen collection (procedure) (no date) [facility] (missing) (missing) (missing) Result panel 2038 Specimen collection (procedure) (no date) [facility] (missing) (missing) (missing) Result panel 2039 Specimen collection (procedure) (no date) [facility] (missing) (missing) (missing) Result panel 2040 Specimen collection (procedure) (no date) [facility] (missing) (missing) (missing) Result panel 204 Specimen collection (procedure) (no date) [facility] (missing) (missing) (missing) Result panel 204 Specimen collection (procedure) (no date) [facility] (missing) (missing) (missing) Result panel 204 Specimen collection (procedure) (no date) [facility] (missing) (missing) (missing) Result panel 204 Specimen collection (procedure) (no date) [facility] (missing) (missing) (missing) Result panel 2045 Specimen collection (procedure) (no date) [facility] (missing) (missing) (missing) Result panel 2046 Specimen collection (procedure) (no date) [facility] (missing) (missing) (missing) Result panel 2047 Specimen collection (procedure) (no date) [facility] (missing) (missing) (missing) Result panel 2048 Specimen collection (procedure) (no date) [facility] (missing) (missing) (missing) Result panel 2049 Specimen collection (procedure) (no date) [facility] (missing) (missing) (missing) Result panel 2050 Specimen collection (procedure) (no date) [facility] (missing) (missing) (missing) Result panel 2051 Specimen collection (procedure) (no date) [facility] (missing) (missing) (missing) Result panel 2052 Specimen collection (procedure) (no date) [facility] (missing) (missing) (missing) Result panel 2053 Specimen collection (procedure) (no date) [facility] (missing) (missing) (missing) Result panel 2054 Specimen collection (procedure) (no date) [facility] (missing) (missing) (missing) Result panel 2055 Specimen collection (procedure) (no date) [facility] (missing) (missing) (missing) Result panel 2056 Specimen collection (procedure) (no date) [facility] (missing) (missing) (missing) Result panel 2057 Specimen collection (procedure) (no date) [facility] (missing) (missing) (missing) Result panel 2058 Specimen collection (procedure) (no date) [facility] (missing) (missing) (missing) Result panel 2059 Specimen collection (procedure) (no date) [facility] (missing) (missing) (missing) Result panel 2060 Specimen collection (procedure) (no date) [facility] (missing) (missing) (missing) Result panel 2061 Specimen collection (procedure) (no date) [facility] (missing) (missing) (missing) Result panel 2062 Specimen collection (procedure) (no date) [facility] (missing) (missing) (missing) Result panel 2063 Specimen collection (procedure) (no date) [facility] (missing) (missing) (missing) Result panel 2064 Specimen collection (procedure) (no date) [facility] (missing) (missing) (missing) Result panel 2065 Specimen collection (procedure) (no date) [facility] (missing) (missing) (missing) Result panel 2066 Specimen collection (procedure) (no date) [facility] (missing) (missing) (missing) Result panel 2067 Specimen collection (procedure) (no date) [facility] (missing) (missing) (missing) Result panel 2068 Specimen collection (procedure) (no date) [facility] (missing) (missing) (missing) Result panel 2069 Specimen collection (procedure) (no date) [facility] (missing) (missing) (missing) Result panel 2070 Specimen collection (procedure) (no date) [facility] (missing) (missing) (missing) Result panel 2071 Specimen collection (procedure) (no date) [facility] (missing) (missing) (missing) Result panel 2072 Specimen collection (procedure) (no date) [facility] (missing) (missing) (missing) Result panel 2073 Specimen collection (procedure) (no date) [facility] (missing) (missing) (missing) Result panel 2074 Specimen collection (procedure) (no date) [facility] (missing) (missing) (missing) Result panel 2075 Specimen collection (procedure) (no date) [facility] (missing) (missing) (missing) Result panel 2076 Specimen collection (procedure) (no date) [facility] (missing) (missing) (missing) Result panel 2077 Specimen collection (procedure) (no date) [facility] (missing) (missing) (missing) Result panel 2078 Specimen collection (procedure) (no date) [facility] (missing) (missing) (missing) Result panel 2079 Specimen collection (procedure) (no date) [facility] (missing) (missing) (missing) Result panel 2080 Specimen collection (procedure) (no date) [facility] (missing) (missing) (missing) Result panel 2081 Specimen collection (procedure) (no date) [facility] (missing) (missing) (missing) Result panel 2082 Specimen collection (procedure) (no date) [facility] (missing) (missing) (missing) Result panel 2083 Specimen collection (procedure) (no date) [facility] (missing) (missing) (missing) Result panel 2084 Specimen collection (procedure) (no date) [facility] (missing) (missing) (missing) Result panel 208 Specimen collection (procedure) (no date) [facility] (missing) (missing) (missing) Result panel 208 Specimen collection (procedure) (no date) [facility] (missing) (missing) (missing) Result panel 2087 Specimen collection (procedure) (no date) [facility] (missing) (missing) (missing) Result panel 2088 Specimen collection (procedure) (no date) [facility] (missing) (missing) (missing) Result panel 2089 Specimen collection (procedure) (no date) [facility] (missing) (missing) (missing) Result panel 2090 Specimen collection (procedure) (no date) [facility] (missing) (missing) (missing) Result panel 2091 Specimen collection (procedure) (no date) [facility] (missing) (missing) (missing) Result panel 2092 Specimen collection (procedure) (no date) [facility] (missing) (missing) (missing) Result panel 2093 Specimen collection (procedure) (no date) [facility] (missing) (missing) (missing) Result panel 2094 Specimen collection (procedure) (no date) [facility] (missing) (missing) (missing) Result panel 2095 Specimen collection (procedure) (no date) [facility] (missing) (missing) (missing) Result panel 2096 Specimen collection (procedure) (no date) [facility] (missing) (missing) (missing) Result panel 2097 Specimen collection (procedure) (no date) [facility] (missing) (missing) (missing) Result panel 2098 Specimen collection (procedure) (no date) [facility] (missing) (missing) (missing) Result panel 2099 Specimen collection (procedure) (no date) [facility] (missing) (missing) (missing) Result panel 2100 Specimen collection (procedure) (no date) [facility] (missing) (missing) (missing) Result panel 2101 Specimen collection (procedure) (no date) [facility] (missing) (missing) (missing) Result panel 2102 Specimen collection (procedure) (no date) [facility] (missing) (missing) (missing) Result panel 2103 Specimen collection (procedure) (no date) [facility] (missing) (missing) (missing) Result panel 5 Specimen collection (procedure) (no date) [facility] (missing) (missing) (missing) Result panel 2105 Specimen collection (procedure) (no date) [facility] (missing) (missing) (missing) Result panel 2106 Specimen collection (procedure) (no date) [facility] (missing) (missing) (missing) Result panel 210 Specimen collection (procedure) (no date) [facility] (missing) (missing) (missing) Result panel 2108 Specimen collection (procedure) (no date) [facility] (missing) (missing) (missing) Result panel 2109 Specimen collection (procedure) (no date) [facility] (missing) (missing) (missing) Result panel 2110 Specimen collection (procedure) (no date) [facility] (missing) (missing) (missing) Result panel 2111 Specimen collection (procedure) (no date) [facility] (missing) (missing) (missing) Result panel 2112 Specimen collection (procedure) (no date) [facility] (missing) (missing) (missing) Result panel 2113 Specimen collection (procedure) (no date) [facility] (missing) (missing) (missing) Result panel 2114 Specimen collection (procedure) (no date) [facility] (missing) (missing) (missing) Result panel 2115 Specimen collection (procedure) (no date) [facility] (missing) (missing) (missing) Result panel 2116 Specimen collection (procedure) (no date) [facility] (missing) (missing) (missing) Result panel 2117 Specimen collection (procedure) (no date) [facility] (missing) (missing) (missing) Result panel 2118 Specimen collection (procedure) (no date) [facility] (missing) (missing) (missing) Result panel 2119 Specimen collection (procedure) (no date) [facility] (missing) (missing) (missing) Result panel 2120 Specimen collection (procedure) (no date) [facility] (missing) (missing) (missing) Result panel 2121 Specimen collection (procedure) (no date) [facility] (missing) (missing) (missing) Result panel 212 Specimen collection (procedure) (no date) [facility] (missing) (missing) (missing) Result panel 2124 Specimen collection (procedure) (no date) [facility] (missing) (missing) (missing) Result panel 2125 Specimen collection (procedure) (no date) [facility] (missing) (missing) (missing) Result panel 2126 Specimen collection (procedure) (no date) [facility] (missing) (missing) (missing) Result panel 2127 Specimen collection (procedure) (no date) [facility] (missing) (missing) (missing) Result panel 2128 Specimen collection (procedure) (no date) [facility] (missing) (missing) (missing) Result panel 2129 Specimen collection (procedure) (no date) [facility] (missing) (missing) (missing) Result panel 2130 Specimen collection (procedure) (no date) [facility] (missing) (missing) (missing) Result panel 2131 Specimen collection (procedure) (no date) [facility] (missing) (missing) (missing) Result panel 2132 Specimen collection (procedure) (no date) [facility] (missing) (missing) (missing) Result panel 2133 Specimen collection (procedure) (no date) [facility] (missing) (missing) (missing) Result panel 2134 Specimen collection (procedure) (no date) [facility] (missing) (missing) (missing) Result panel 2135 Specimen collection (procedure) (no date) [facility] (missing) (missing) (missing) Result panel 2136 Specimen collection (procedure) (no date) [facility] (missing) (missing) (missing) Result panel 2137 Specimen collection (procedure) (no date) [facility] (missing) (missing) (missing) Result panel 2138 Specimen collection (procedure) (no date) [facility] (missing) (missing) (missing) Result panel 2139 Specimen collection (procedure) (no date) [facility] (missing) (missing) (missing) Result panel 2140 Specimen collection (procedure) (no date) [facility] (missing) (missing) (missing) Result panel 2141 Specimen collection (procedure) (no date) [facility] (missing) (missing) (missing) Result panel 2142 Specimen collection (procedure) (no date) [facility] (missing) (missing) (missing) Result panel 2143 Specimen collection (procedure) (no date) [facility] (missing) (missing) (missing) Result panel 2144 Specimen collection (procedure) (no date) [facility] (missing) (missing) (missing) Result panel 2145 Specimen collection (procedure) (no date) [facility] (missing) (missing) (missing) Result panel 2146 Specimen collection (procedure) (no date) [facility] (missing) (missing) (missing) Result panel 2147 Specimen collection (procedure) (no date) [facility] (missing) (missing) (missing) Result panel 2148 Specimen collection (procedure) (no date) [facility] (missing) (missing) (missing) Result panel 2149 Specimen collection (procedure) (no date) [facility] (missing) (missing) (missing) Result panel 2150 Specimen collection (procedure) (no date) [facility] (missing) (missing) (missing) Result panel 2151 Specimen collection (procedure) (no date) [facility] (missing) (missing) (missing) Result panel 2152 Specimen collection (procedure) (no date) [facility] (missing) (missing) (missing) Result panel 2153 Specimen collection (procedure) (no date) [facility] (missing) (missing) (missing) Result panel 2154 Specimen collection (procedure) (no date) [facility] (missing) (missing) (missing) Result panel 2155 Specimen collection (procedure) (no date) [facility] (missing) (missing) (missing) Result panel 2156 Specimen collection (procedure) (no date) [facility] (missing) (missing) (missing) Result panel 2157 Specimen collection (procedure) (no date) [facility] (missing) (missing) (missing) Result panel 2158 Specimen collection (procedure) (no date) [facility] (missing) (missing) (missing) Result panel 2159 Specimen collection (procedure) (no date) [facility] (missing) (missing) (missing) Result panel 2160 Specimen collection (procedure) (no date) [facility] (missing) (missing) (missing) Result panel 2161 Specimen collection (procedure) (no date) [facility] (missing) (missing) (missing) Result panel 2162 Specimen collection (procedure) (no date) [facility] (missing) (missing) (missing) Result panel 2163 Specimen collection (procedure) (no date) [facility] (missing) (missing) (missing) Result panel 2164 Specimen collection (procedure) (no date) [facility] (missing) (missing) (missing) Result panel 2165 Specimen collection (procedure) (no date) [facility] (missing) (missing) (missing) Result panel 2166 Specimen collection (procedure) (no date) [facility] (missing) (missing) (missing) Result panel 2167 Specimen collection (procedure) (no date) [facility] (missing) (missing) (missing) Result panel 2168 Specimen collection (procedure) (no date) [facility] (missing) (missing) (missing) Result panel 2169 Specimen collection (procedure) (no date) [facility] (missing) (missing) (missing) Result panel 2170 Specimen collection (procedure) (no date) [facility] (missing) (missing) (missing) Result panel 2171 Specimen collection (procedure) (no date) [facility] (missing) (missing) (missing) Result panel 2172 Specimen collection (procedure) (no date) [facility] (missing) (missing) (missing) Result panel 2173 Specimen collection (procedure) (no date) [facility] (missing) (missing) (missing) Result panel 2174 Specimen collection (procedure) (no date) [facility] (missing) (missing) (missing) Result panel 2175 Specimen collection (procedure) (no date) [facility] (missing) (missing) (missing) Result panel 2176 Specimen collection (procedure) (no date) [facility] (missing) (missing) (missing) Result panel 2177 Specimen collection (procedure) (no date) [facility] (missing) (missing) (missing) Result panel 2178 Specimen collection (procedure) (no date) [facility] (missing) (missing) (missing) Result panel 2179 Specimen collection (procedure) (no date) [facility] (missing) (missing) (missing) Result panel 2180 Specimen collection (procedure) (no date) [facility] (missing) (missing) (missing) Result panel 2181 Specimen collection (procedure) (no date) [facility] (missing) (missing) (missing) Result panel 2182 Specimen collection (procedure) (no date) [facility] (missing) (missing) (missing) Result panel 2183 Specimen collection (procedure) (no date) [facility] (missing) (missing) (missing) Result panel 2184 Specimen collection (procedure) (no date) [facility] (missing) (missing) (missing) Result panel 2185 Specimen collection (procedure) (no date) [facility] (missing) (missing) (missing) Result panel 2186 Specimen collection (procedure) (no date) [facility] (missing) (missing) (missing) Result panel 2187 Specimen collection (procedure) (no date) [facility] (missing) (missing) (missing) Result panel 2188 Specimen collection (procedure) (no date) [facility] (missing) (missing) (missing) Result panel 2189 Specimen collection (procedure) (no date) [facility] (missing) (missing) (missing) Result panel 2190 Specimen collection (procedure) (no date) [facility] (missing) (missing) (missing) Result panel 2191 Specimen collection (procedure) (no date) [facility] (missing) (missing) (missing) Result panel 2192 Specimen collection (procedure) (no date) [facility] (missing) (missing) (missing) Result panel 2193 Specimen collection (procedure) (no date) [facility] (missing) (missing) (missing) Result panel 2194 Specimen collection (procedure) (no date) [facility] (missing) (missing) (missing) Result panel 2195 Specimen collection (procedure) (no date) [facility] (missing) (missing) (missing) Result panel 2196 Specimen collection (procedure) (no date) [facility] (missing) (missing) (missing) Result panel 2197 Specimen collection (procedure) (no date) [facility] (missing) (missing) (missing) Result panel 2198 Specimen collection (procedure) (no date) [facility] (missing) (missing) (missing) Result panel 2199 Specimen collection (procedure) (no date) [facility] (missing) (missing) (missing) Result panel 2200 Specimen collection (procedure) (no date) [facility] (missing) (missing) (missing) Result panel 2201 Specimen collection (procedure) (no date) [facility] (missing) (missing) (missing) Result panel 2202 Specimen collection (procedure) (no date) [facility] (missing) (missing) (missing) Result panel 2203 Specimen collection (procedure) (no date) [facility] (missing) (missing) (missing) Result panel 2204 Specimen collection (procedure) (no date) [facility] (missing) (missing) (missing) Result panel 2205 Specimen collection (procedure) (no date) [facility] (missing) (missing) (missing) Result panel 2206 Specimen collection (procedure) (no date) [facility] (missing) (missing) (missing) Result panel 2207 Specimen collection (procedure) (no date) [facility] (missing) (missing) (missing) Result panel 2208 Specimen collection (procedure) (no date) [facility] (missing) (missing) (missing) Result panel 2209 Specimen collection (procedure) (no date) [facility] (missing) (missing) (missing) Result panel 2210 Specimen collection (procedure) (no date) [facility] (missing) (missing) (missing) Result panel 2211 Specimen collection (procedure) (no date) [facility] (missing) (missing) (missing) Result panel 2212 Specimen collection (procedure) (no date) [facility] (missing) (missing) (missing) Result panel 2213 Specimen collection (procedure) (no date) [facility] (missing) (missing) (missing) Result panel 2214 Specimen collection (procedure) (no date) [facility] (missing) (missing) (missing) Result panel 2215 Specimen collection (procedure) (no date) [facility] (missing) (missing) (missing) Result panel 2216 Specimen collection (procedure) (no date) [facility] (missing) (missing) (missing) Result panel 2217 Specimen collection (procedure) (no date) [facility] (missing) (missing) (missing) Result panel 2218 Specimen collection (procedure) (no date) [facility] (missing) (missing) (missing) Result panel 2219 Specimen collection (procedure) (no date) [facility] (missing) (missing) (missing) Result panel 2220 Specimen collection (procedure) (no date) [facility] (missing) (missing) (missing) Result panel 2221 Specimen collection (procedure) (no date) [facility] (missing) (missing) (missing) Result panel 2222 Specimen collection (procedure) (no date) [facility] (missing) (missing) (missing) Result panel 2223 Specimen collection (procedure) (no date) [facility] (missing) (missing) (missing) Result panel 2224 Specimen collection (procedure) (no date) [facility] (missing) (missing) (missing) Result panel 2225 Specimen collection (procedure) (no date) [facility] (missing) (missing) (missing) Result panel 2226 Specimen collection (procedure) (no date) [facility] (missing) (missing) (missing) Result panel 2227 Specimen collection (procedure) (no date) [facility] (missing) (missing) (missing) Result panel 2228 Specimen collection (procedure) (no date) [facility] (missing) (missing) (missing) Result panel 2229 Specimen collection (procedure) (no date) [facility] (missing) (missing) (missing) Result panel 2230 Specimen collection (procedure) (no date) [facility] (missing) (missing) (missing) Result panel 2231 Specimen collection (procedure) (no date) [facility] (missing) (missing) (missing) Result panel 2232 Specimen collection (procedure) (no date) [facility] (missing) (missing) (missing) Result panel 2233 Specimen collection (procedure) (no date) [facility] (missing) (missing) (missing) Result panel 2234 Specimen collection (procedure) (no date) [facility] (missing) (missing) (missing) Result panel 2235 Specimen collection (procedure) (no date) [facility] (missing) (missing) (missing) Result panel 2236 Specimen collection (procedure) (no date) [facility] (missing) (missing) (missing) Result panel 2237 Specimen collection (procedure) (no date) [facility] (missing) (missing) (missing) Result panel 2238 Specimen collection (procedure) (no date) [facility] (missing) (missing) (missing) Result panel 2239 Specimen collection (procedure) (no date) [facility] (missing) (missing) (missing) Result panel 2240 Specimen collection (procedure) (no date) [facility] (missing) (missing) (missing) Result panel 2241 Specimen collection (procedure) (no date) [facility] (missing) (missing) (missing) Result panel 2242 Specimen collection (procedure) (no date) [facility] (missing) (missing) (missing) Result panel 2243 Specimen collection (procedure) (no date) [facility] (missing) (missing) (missing) Result panel 2244 Specimen collection (procedure) (no date) [facility] (missing) (missing) (missing) Result panel 2245 Specimen collection (procedure) (no date) [facility] (missing) (missing) (missing) Result panel 2246 Specimen collection (procedure) (no date) [facility] (missing) (missing) (missing) Result panel 2247 Specimen collection (procedure) (no date) [facility] (missing) (missing) (missing) Result panel 2248 Specimen collection (procedure) (no date) [facility] (missing) (missing) (missing) Result panel 2249 Specimen collection (procedure) (no date) [facility] (missing) (missing) (missing) Result panel 2250 Specimen collection (procedure) (no date) [facility] (missing) (missing) (missing) Result panel 2251 Specimen collection (procedure) (no date) [facility] (missing) (missing) (missing) Result panel 2252 Specimen collection (procedure) (no date) [facility] (missing) (missing) (missing) Result panel 2253 Specimen collection (procedure) (no date) [facility] (missing) (missing) (missing) Result panel 2254 Specimen collection (procedure) (no date) [facility] (missing) (missing) (missing) Result panel 2255 Specimen collection (procedure) (no date) [facility] (missing) (missing) (missing) Result panel 2256 Specimen collection (procedure) (no date) [facility] (missing) (missing) (missing) Result panel 2257 Specimen collection (procedure) (no date) [facility] (missing) (missing) (missing) Result panel 2258 Specimen collection (procedure) (no date) [facility] (missing) (missing) (missing) Result panel 2259 Specimen collection (procedure) (no date) [facility] (missing) (missing) (missing) Result panel 2260 Specimen collection (procedure) (no date) [facility] (missing) (missing) (missing) Result panel 2261 Specimen collection (procedure) (no date) [facility] (missing) (missing) (missing) Result panel 2262 Specimen collection (procedure) (no date) [facility] (missing) (missing) (missing) Result panel 2263 Specimen collection (procedure) (no date) [facility] (missing) (missing) (missing) Result panel 2264 Specimen collection (procedure) (no date) [facility] (missing) (missing) (missing) Result panel 2265 Specimen collection (procedure) (no date) [facility] (missing) (missing) (missing) Result panel 2266 Specimen collection (procedure) (no date) [facility] (missing) (missing) (missing) Result panel 2267 Specimen collection (procedure) (no date) [facility] (missing) (missing) (missing) Result panel 2268 Specimen collection (procedure) (no date) [facility] (missing) (missing) (missing) Result panel 2269 Specimen collection (procedure) (no date) [facility] (missing) (missing) (missing) Result panel 2270 Specimen collection (procedure) (no date) [facility] (missing) (missing) (missing) Result panel 2271 Specimen collection (procedure) (no date) [facility] (missing) (missing) (missing) Result panel 2272 Specimen collection (procedure) (no date) [facility] (missing) (missing) (missing) Result panel 2273 Specimen collection (procedure) (no date) [facility] (missing) (missing) (missing) Result panel 2274 Specimen collection (procedure) (no date) [facility] (missing) (missing) (missing) Result panel 2275 Specimen collection (procedure) (no date) [facility] (missing) (missing) (missing) Result panel 2276 Specimen collection (procedure) (no date) [facility] (missing) (missing) (missing) Result panel 2277 Specimen collection (procedure) (no date) [facility] (missing) (missing) (missing) Result panel 2278 Specimen collection (procedure) (no date) [facility] (missing) (missing) (missing) Result panel 2279 Specimen collection (procedure) (no date) [facility] (missing) (missing) (missing) Result panel 2280 Specimen collection (procedure) (no date) [facility] (missing) (missing) (missing) Result panel 2281 Specimen collection (procedure) (no date) [facility] (missing) (missing) (missing) Result panel 2282 Specimen collection (procedure) (no date) [facility] (missing) (missing) (missing) Result panel 2283 Specimen collection (procedure) (no date) [facility] (missing) (missing) (missing) Result panel 2284 Specimen collection (procedure) (no date) [facility] (missing) (missing) (missing) Result panel 2285 Specimen collection (procedure) (no date) [facility] (missing) (missing) (missing) Result panel 2286 Specimen collection (procedure) (no date) [facility] (missing) (missing) (missing) Result panel 2287 Specimen collection (procedure) (no date) [facility] (missing) (missing) (missing) Result panel 2288 Specimen collection (procedure) (no date) [facility] (missing) (missing) (missing) Result panel 2289 Specimen collection (procedure) (no date) [facility] (missing) (missing) (missing) Result panel 2290 Specimen collection (procedure) (no date) [facility] (missing) (missing) (missing) Result panel 2291 Specimen collection (procedure) (no date) [facility] (missing) (missing) (missing) Result panel 2292 Specimen collection (procedure) (no date) [facility] (missing) (missing) (missing) Result panel 2293 Specimen collection (procedure) (no date) [facility] (missing) (missing) (missing) Result panel 2294 Specimen collection (procedure) (no date) [facility] (missing) (missing) (missing) Result panel 2295 Specimen collection (procedure) (no date) [facility] (missing) (missing) (missing) Result panel 2296 Specimen collection (procedure) (no date) [facility] (missing) (missing) (missing) Result panel 2297 Specimen collection (procedure) (no date) [facility] (missing) (missing) (missing) Result panel 2298 Specimen collection (procedure) (no date) [facility] (missing) (missing) (missing) Result panel 2299 Specimen collection (procedure) (no date) [facility] (missing) (missing) (missing) Result panel 2300 Specimen collection (procedure) (no date) [facility] (missing) (missing) (missing) Result panel 2301 Specimen collection (procedure) (no date) [facility] (missing) (missing) (missing) Result panel 2302 Specimen collection (procedure) (no date) [facility] (missing) (missing) (missing) Result panel 2303 Specimen collection (procedure) (no date) [facility] (missing) (missing) (missing) Result panel 2304 Specimen collection (procedure) (no date) [facility] (missing) (missing) (missing) Result panel 2305 Specimen collection (procedure) (no date) [facility] (missing) (missing) (missing) Result panel 2306 Specimen collection (procedure) (no date) [facility] (missing) (missing) (missing) Result panel 2307 Specimen collection (procedure) (no date) [facility] (missing) (missing) (missing) Result panel 2308 Specimen collection (procedure) (no date) [facility] (missing) (missing) (missing) Result panel 2309 Specimen collection (procedure) (no date) [facility] (missing) (missing) (missing) Result panel 2310 Specimen collection (procedure) (no date) [facility] (missing) (missing) (missing) Result panel 2311 Specimen collection (procedure) (no date) [facility] (missing) (missing) (missing) Result panel 2312 Specimen collection (procedure) (no date) [facility] (missing) (missing) (missing) Result panel 2313 Specimen collection (procedure) (no date) [facility] (missing) (missing) (missing) Result panel 2314 Specimen collection (procedure) (no date) [facility] (missing) (missing) (missing) Result panel 2315 Specimen collection (procedure) (no date) [facility] (missing) (missing) (missing) Result panel 2316 Specimen collection (procedure) (no date) [facility] (missing) (missing) (missing) Result panel 2317 Specimen collection (procedure) (no date) [facility] (missing) (missing) (missing) Result panel 2318 Specimen collection (procedure) (no date) [facility] (missing) (missing) (missing) Result panel 2319 Specimen collection (procedure) (no date) [facility] (missing) (missing) (missing) Result panel 2320 Specimen collection (procedure) (no date) [facility] (missing) (missing) (missing) Result panel 2321 Specimen collection (procedure) (no date) [facility] (missing) (missing) (missing) Result panel 2322 Specimen collection (procedure) (no date) [facility] (missing) (missing) (missing) Result panel 2323 Specimen collection (procedure) (no date) [facility] (missing) (missing) (missing) Result panel 2324 Specimen collection (procedure) (no date) [facility] (missing) (missing) (missing) Result panel 2325 Specimen collection (procedure) (no date) [facility] (missing) (missing) (missing) Result panel 2326 Specimen collection (procedure) (no date) [facility] (missing) (missing) (missing) Result panel 2327 Specimen collection (procedure) (no date) [facility] (missing) (missing) (missing) Result panel 2328 Specimen collection (procedure) (no date) [facility] (missing) (missing) (missing) Result panel 2329 Specimen collection (procedure) (no date) [facility] (missing) (missing) (missing) Result panel 2330 Specimen collection (procedure) (no date) [facility] (missing) (missing) (missing) Result panel 2331 Specimen collection (procedure) (no date) [facility] (missing) (missing) (missing) Result panel 2332 Specimen collection (procedure) (no date) [facility] (missing) (missing) (missing) Result panel 2333 Specimen collection (procedure) (no date) [facility] (missing) (missing) (missing) Result panel 2334 Specimen collection (procedure) (no date) [facility] (missing) (missing) (missing) Result panel 2335 Specimen collection (procedure) (no date) [facility] (missing) (missing) (missing) Result panel 2336 Specimen collection (procedure) (no date) [facility] (missing) (missing) (missing) Result panel 2337 Specimen collection (procedure) (no date) [facility] (missing) (missing) (missing) Result panel 2338 Specimen collection (procedure) (no date) [facility] (missing) (missing) (missing) Result panel 2339 Specimen collection (procedure) (no date) [facility] (missing) (missing) (missing) Result panel 2340 Specimen collection (procedure) (no date) [facility] (missing) (missing) (missing) Result panel 2341 Specimen collection (procedure) (no date) [facility] (missing) (missing) (missing) Result panel 2342 Specimen collection (procedure) (no date) [facility] (missing) (missing) (missing) Result panel 2343 Specimen collection (procedure) (no date) [facility] (missing) (missing) (missing) Result panel 2344 Specimen collection (procedure) (no date) [facility] (missing) (missing) (missing) Result panel 2345 Specimen collection (procedure) (no date) [facility] (missing) (missing) (missing) Result panel 2346 Specimen collection (procedure) (no date) [facility] (missing) (missing) (missing) Result panel 2347 Specimen collection (procedure) (no date) [facility] (missing) (missing) (missing) Result panel 2348 Specimen collection (procedure) (no date) [facility] (missing) (missing) (missing) Result panel 2349 Specimen collection (procedure) (no date) [facility] (missing) (missing) (missing) Result panel 2350 Specimen collection (procedure) (no date) [facility] (missing) (missing) (missing) Result panel 2351 Specimen collection (procedure) (no date) [facility] (missing) (missing) (missing) Result panel 2352 Specimen collection (procedure) (no date) [facility] (missing) (missing) (missing) Result panel 2353 Specimen collection (procedure) (no date) [facility] (missing) (missing) (missing) Result panel 2354 Specimen collection (procedure) (no date) [facility] (missing) (missing) (missing) Result panel 2355 Specimen collection (procedure) (no date) [facility] (missing) (missing) (missing) Result panel 2356 Specimen collection (procedure) (no date) [facility] (missing) (missing) (missing) Result panel 2357 Specimen collection (procedure) (no date) [facility] (missing) (missing) (missing) Result panel 2358 Specimen collection (procedure) (no date) [facility] (missing) (missing) (missing) Result panel 2359 Specimen collection (procedure) (no date) [facility] (missing) (missing) (missing) Result panel 2360 Specimen collection (procedure) (no date) [facility] (missing) (missing) (missing) Result panel 2361 Specimen collection (procedure) (no date) [facility] (missing) (missing) (missing) Result panel 2362 Specimen collection (procedure) (no date) [facility] (missing) (missing) (missing) Result panel 2363 Specimen collection (procedure) (no date) [facility] (missing) (missing) (missing) Result panel 2364 Specimen collection (procedure) (no date) [facility] (missing) (missing) (missing) Result panel 2365 Specimen collection (procedure) (no date) [facility] (missing) (missing) (missing) Result panel 2366 Specimen collection (procedure) (no date) [facility] (missing) (missing) (missing) Result panel 2367 Specimen collection (procedure) (no date) [facility] (missing) (missing) (missing) Result panel 2368 Specimen collection (procedure) (no date) [facility] (missing) (missing) (missing) Result panel 2369 Specimen collection (procedure) (no date) [facility] (missing) (missing) (missing) Result panel 2370 Specimen collection (procedure) (no date) [facility] (missing) (missing) (missing) Result panel 2371 Specimen collection (procedure) (no date) [facility] (missing) (missing) (missing) Result panel 2372 Specimen collection (procedure) (no date) [facility] (missing) (missing) (missing) Result panel 2373 Specimen collection (procedure) (no date) [facility] (missing) (missing) (missing) Result panel 2374 Specimen collection (procedure) (no date) [facility] (missing) (missing) (missing) Result panel 2375 Specimen collection (procedure) (no date) [facility] (missing) (missing) (missing) Result panel 2376 Specimen collection (procedure) (no date) [facility] (missing) (missing) (missing) Result panel 2377 Specimen collection (procedure) (no date) [facility] (missing) (missing) (missing) Result panel 2378 Specimen collection (procedure) (no date) [facility] (missing) (missing) (missing) Result panel 2379 Specimen collection (procedure) (no date) [facility] (missing) (missing) (missing) Result panel 2380 Specimen collection (procedure) (no date) [facility] (missing) (missing) (missing) Result panel 2381 Specimen collection (procedure) (no date) [facility] (missing) (missing) (missing) Result panel 2382 Specimen collection (procedure) (no date) [facility] (missing) (missing) (missing) Result panel 2383 Specimen collection (procedure) (no date) [facility] (missing) (missing) (missing) Result panel 2384 Specimen collection (procedure) (no date) [facility] (missing) (missing) (missing) Result panel 2385 Specimen collection (procedure) (no date) [facility] (missing) (missing) (missing) Result panel 2386 Specimen collection (procedure) (no date) [facility] (missing) (missing) (missing) Result panel 2387 Specimen collection (procedure) (no date) [facility] (missing) (missing) (missing) Result panel 2388 Specimen collection (procedure) (no date) [facility] (missing) (missing) (missing) Result panel 2389 Specimen collection (procedure) (no date) [facility] (missing) (missing) (missing) Result panel 2390 Specimen collection (procedure) (no date) [facility] (missing) (missing) (missing) Result panel 2391 Specimen collection (procedure) (no date) [facility] (missing) (missing) (missing) Result panel 2392 Specimen collection (procedure) (no date) [facility] (missing) (missing) (missing) Result panel 2393 Specimen collection (procedure) (no date) [facility] (missing) (missing) (missing) Result panel 2394 Specimen collection (procedure) (no date) [facility] (missing) (missing) (missing) Result panel 2395 Specimen collection (procedure) (no date) [facility] (missing) (missing) (missing) Result panel 2396 Specimen collection (procedure) (no date) [facility] (missing) (missing) (missing) Result panel 2397 Specimen collection (procedure) (no date) [facility] (missing) (missing) (missing) Result panel 2398 Specimen collection (procedure) (no date) [facility] (missing) (missing) (missing) Result panel 2399 Specimen collection (procedure) (no date) [facility] (missing) (missing) (missing) Result panel 2400 Specimen collection (procedure) (no date) [facility] (missing) (missing) (missing) Result panel 2401 Specimen collection (procedure) (no date) [facility] (missing) (missing) (missing) Result panel 2402 Specimen collection (procedure) (no date) [facility] (missing) (missing) (missing) Result panel 2403 Specimen collection (procedure) (no date) [facility] (missing) (missing) (missing) Result panel 2404 Specimen collection (procedure) (no date) [facility] (missing) (missing) (missing) Result panel 2405 Specimen collection (procedure) (no date) [facility] (missing) (missing) (missing) Result panel 2406 Specimen collection (procedure) (no date) [facility] (missing) (missing) (missing) Result panel 2407 Specimen collection (procedure) (no date) [facility] (missing) (missing) (missing) Result panel 2408 Specimen collection (procedure) (no date) [facility] (missing) (missing) (missing) Result panel 2409 Specimen collection (procedure) (no date) [facility] (missing) (missing) (missing) Result panel 2410 Specimen collection (procedure) (no date) [facility] (missing) (missing) (missing) Result panel 2411 Specimen collection (procedure) (no date) [facility] (missing) (missing) (missing) Result panel 2412 Specimen collection (procedure) (no date) [facility] (missing) (missing) (missing) Result panel 2413 Specimen collection (procedure) (no date) [facility] (missing) (missing) (missing) Result panel 2414 Specimen collection (procedure) (no date) [facility] (missing) (missing) (missing) Result panel 2415 Specimen collection (procedure) (no date) [facility] (missing) (missing) (missing) Result panel 2416 Specimen collection (procedure) (no date) [facility] (missing) (missing) (missing) Result panel 2417 Specimen collection (procedure) (no date) [facility] (missing) (missing) (missing) Result panel 2418 Specimen collection (procedure) (no date) [facility] (missing) (missing) (missing) Result panel 2419 Specimen collection (procedure) (no date) [facility] (missing) (missing) (missing) Result panel 2420 Specimen collection (procedure) (no date) [facility] (missing) (missing) (missing) Result panel 2421 Specimen collection (procedure) (no date) [facility] (missing) (missing) (missing) Result panel 2422 Specimen collection (procedure) (no date) [facility] (missing) (missing) (missing) Result panel 2423 Specimen collection (procedure) (no date) [facility] (missing) (missing) (missing) Result panel 2424 Specimen collection (procedure) (no date) [facility] (missing) (missing) (missing) Result panel 2425 Specimen collection (procedure) (no date) [facility] (missing) (missing) (missing) Result panel 2426 Specimen collection (procedure) (no date) [facility] (missing) (missing) (missing) Result panel 2427 Specimen collection (procedure) (no date) [facility] (missing) (missing) (missing) Result panel 2428 Specimen collection (procedure) (no date) [facility] (missing) (missing) (missing) Result panel 2429 Specimen collection (procedure) (no date) [facility] (missing) (missing) (missing) Result panel 2430 Specimen collection (procedure) (no date) [facility] (missing) (missing) (missing) Result panel 2431 Specimen collection (procedure) (no date) [facility] (missing) (missing) (missing) Result panel 2432 Specimen collection (procedure) (no date) [facility] (missing) (missing) (missing) Result panel 2433 Specimen collection (procedure) (no date) [facility] (missing) (missing) (missing) Result panel 2434 Specimen collection (procedure) (no date) [facility] (missing) (missing) (missing) Result panel 2435 Specimen collection (procedure) (no date) [facility] (missing) (missing) (missing) Result panel 2436 Specimen collection (procedure) (no date) [facility] (missing) (missing) (missing) Result panel 2437 Specimen collection (procedure) (no date) [facility] (missing) (missing) (missing) Result panel 2438 Specimen collection (procedure) (no date) [facility] (missing) (missing) (missing) Result panel 2439 Specimen collection (procedure) (no date) [facility] (missing) (missing) (missing) Result panel 2440 Specimen collection (procedure) (no date) [facility] (missing) (missing) (missing) Result panel 2441 Specimen collection (procedure) (no date) [facility] (missing) (missing) (missing) Result panel 2442 Specimen collection (procedure) (no date) [facility] (missing) (missing) (missing) Result panel 2443 Specimen collection (procedure) (no date) [facility] (missing) (missing) (missing) Result panel 2444 Specimen collection (procedure) (no date) [facility] (missing) (missing) (missing) Result panel 2445 Specimen collection (procedure) (no date) [facility] (missing) (missing) (missing) Result panel 2446 Specimen collection (procedure) (no date) [facility] (missing) (missing) (missing) Result panel 2447 Specimen collection (procedure) (no date) [facility] (missing) (missing) (missing) Result panel 2448 Specimen collection (procedure) (no date) [facility] (missing) (missing) (missing) Result panel 2449 Specimen collection (procedure) (no date) [facility] (missing) (missing) (missing) Result panel 2450 Specimen collection (procedure) (no date) [facility] (missing) (missing) (missing) Result panel 2451 Specimen collection (procedure) (no date) [facility] (missing) (missing) (missing) Result panel 2452 Specimen collection (procedure) (no date) [facility] (missing) (missing) (missing) Result panel 2453 Specimen collection (procedure) (no date) [facility] (missing) (missing) (missing) Result panel 2454 Specimen collection (procedure) (no date) [facility] (missing) (missing) (missing) Result panel 2455 Specimen collection (procedure) (no date) [facility] (missing) (missing) (missing) Result panel 2456 Specimen collection (procedure) (no date) [facility] (missing) (missing) (missing) Result panel 2457 Specimen collection (procedure) (no date) [facility] (missing) (missing) (missing) Result panel 2458 Specimen collection (procedure) (no date) [facility] (missing) (missing) (missing) Result panel 2459 Specimen collection (procedure) (no date) [facility] (missing) (missing) (missing) Result panel 2460 Specimen collection (procedure) (no date) [facility] (missing) (missing) (missing) Result panel 2461 Specimen collection (procedure) (no date) [facility] (missing) (missing) (missing) Result panel 2462 Specimen collection (procedure) (no date) [facility] (missing) (missing) (missing) Result panel 2463 Specimen collection (procedure) (no date) [facility] (missing) (missing) (missing) Result panel 2464 Specimen collection (procedure) (no date) [facility] (missing) (missing) (missing) Result panel 2465 Specimen collection (procedure) (no date) [facility] (missing) (missing) (missing) Result panel 2466 Specimen collection (procedure) (no date) [facility] (missing) (missing) (missing) Result panel 2467 Specimen collection (procedure) (no date) [facility] (missing) (missing) (missing) Result panel 2468 Specimen collection (procedure) (no date) [facility] (missing) (missing) (missing) Result panel 2469 Specimen collection (procedure) (no date) [facility] (missing) (missing) (missing) Result panel 2470 Specimen collection (procedure) (no date) [facility] (missing) (missing) (missing) Result panel 2471 Specimen collection (procedure) (no date) [facility] (missing) (missing) (missing) Result panel 2472 Specimen collection (procedure) (no date) [facility] (missing) (missing) (missing) Result panel 2473 Specimen collection (procedure) (no date) [facility] (missing) (missing) (missing) Result panel 2474 Specimen collection (procedure) (no date) [facility] (missing) (missing) (missing) Result panel 2475 Specimen collection (procedure) (no date) [facility] (missing) (missing) (missing) Result panel 2476 Specimen collection (procedure) (no date) [facility] (missing) (missing) (missing) Result panel 2477 Specimen collection (procedure) (no date) [facility] (missing) (missing) (missing) Result panel 2478 Specimen collection (procedure) (no date) [facility] (missing) (missing) (missing) Result panel 2479 Specimen collection (procedure) (no date) [facility] (missing) (missing) (missing) Result panel 2480 Specimen collection (procedure) (no date) [facility] (missing) (missing) (missing) Result panel 2481 Specimen collection (procedure) (no date) [facility] (missing) (missing) (missing) Result panel 2482 Specimen collection (procedure) (no date) [facility] (missing) (missing) (missing) Result panel 2483 Specimen collection (procedure) (no date) [facility] (missing) (missing) (missing) Result panel 2484 Specimen collection (procedure) (no date) [facility] (missing) (missing) (missing) Result panel 2485 Specimen collection (procedure) (no date) [facility] (missing) (missing) (missing) Result panel 2486 Specimen collection (procedure) (no date) [facility] (missing) (missing) (missing) Result panel 2487 Specimen collection (procedure) (no date) [facility] (missing) (missing) (missing) Result panel 2488 Specimen collection (procedure) (no date) [facility] (missing) (missing) (missing) Result panel 2489 Specimen collection (procedure) (no date) [facility] (missing) (missing) (missing) Result panel 2490 Specimen collection (procedure) (no date) [facility] (missing) (missing) (missing) Result panel 2491 Specimen collection (procedure) (no date) [facility] (missing) (missing) (missing) Result panel 2492 Specimen collection (procedure) (no date) [facility] (missing) (missing) (missing) Result panel 2493 Specimen collection (procedure) (no date) [facility] (missing) (missing) (missing) Result panel 2494 Specimen collection (procedure) (no date) [facility] (missing) (missing) (missing) Result panel 2495 Specimen collection (procedure) (no date) [facility] (missing) (missing) (missing) Result panel 2496 Specimen collection (procedure) (no date) [facility] (missing) (missing) (missing) Result panel 2497 Specimen collection (procedure) (no date) [facility] (missing) (missing) (missing) Result panel 2498 Specimen collection (procedure) (no date) [facility] (missing) (missing) (missing) Result panel 2499 Specimen collection (procedure) (no date) [facility] (missing) (missing) (missing) Result panel 2500 Specimen collection (procedure) (no date) [facility] (missing) (missing) (missing) Result panel 2501 Specimen collection (procedure) (no date) [facility] (missing) (missing) (missing) Result panel 2502 Specimen collection (procedure) (no date) [facility] (missing) (missing) (missing) Result panel 2503 Specimen collection (procedure) (no date) [facility] (missing) (missing) (missing) Result panel 2504 Specimen collection (procedure) (no date) [facility] (missing) (missing) (missing) Result panel 2505 Specimen collection (procedure) (no date) [facility] (missing) (missing) (missing) Result panel 2506 Specimen collection (procedure) (no date) [facility] (missing) (missing) (missing) Result panel 2507 Specimen collection (procedure) (no date) [facility] (missing) (missing) (missing) Result panel 2508 Specimen collection (procedure) (no date) [facility] (missing) (missing) (missing) Result panel 2509 Specimen collection (procedure) (no date) [facility] (missing) (missing) (missing) Result panel 2510 Specimen collection (procedure) (no date) [facility] (missing) (missing) (missing) Result panel 2511 Specimen collection (procedure) (no date) [facility] (missing) (missing) (missing) Result panel 2512 Specimen collection (procedure) (no date) [facility] (missing) (missing) (missing) Result panel 2513 Specimen collection (procedure) (no date) [facility] (missing) (missing) (missing) Result panel 2514 Specimen collection (procedure) (no date) [facility] (missing) (missing) (missing) Result panel 2515 Specimen collection (procedure) (no date) [facility] (missing) (missing) (missing) Result panel 2516 Specimen collection (procedure) (no date) [facility] (missing) (missing) (missing) Result panel 2517 Specimen collection (procedure) (no date) [facility] (missing) (missing) (missing) Result panel 2518 Specimen collection (procedure) (no date) [facility] (missing) (missing) (missing) Result panel 2519 Specimen collection (procedure) (no date) [facility] (missing) (missing) (missing) Result panel 2520 Specimen collection (procedure) (no date) [facility] (missing) (missing) (missing) Result panel 2521 Specimen collection (procedure) (no date) [facility] (missing) (missing) (missing) Result panel 2522 Specimen collection (procedure) (no date) [facility] (missing) (missing) (missing) Result panel 2523 Specimen collection (procedure) (no date) [facility] (missing) (missing) (missing) Result panel 2524 Specimen collection (procedure) (no date) [facility] (missing) (missing) (missing) Result panel 2525 Specimen collection (procedure) (no date) [facility] (missing) (missing) (missing) Result panel 2526 Specimen collection (procedure) (no date) [facility] (missing) (missing) (missing) Result panel 2527 Specimen collection (procedure) (no date) [facility] (missing) (missing) (missing) Result panel 2528 Specimen collection (procedure) (no date) [facility] (missing) (missing) (missing) Result panel 2529 Specimen collection (procedure) (no date) [facility] (missing) (missing) (missing) Result panel 2530 Specimen collection (procedure) (no date) [facility] (missing) (missing) (missing) Result panel 2531 Specimen collection (procedure) (no date) [facility] (missing) (missing) (missing) Result panel 2532 Specimen collection (procedure) (no date) [facility] (missing) (missing) (missing) Result panel 2533 Specimen collection (procedure) (no date) [facility] (missing) (missing) (missing) Result panel 2534 Specimen collection (procedure) (no date) [facility] (missing) (missing) (missing) Result panel 2535 Specimen collection (procedure) (no date) [facility] (missing) (missing) (missing) Result panel 2536 Specimen collection (procedure) (no date) [facility] (missing) (missing) (missing) Result panel 2537 Specimen collection (procedure) (no date) [facility] (missing) (missing) (missing) Result panel 2538 Specimen collection (procedure) (no date) [facility] (missing) (missing) (missing) Result panel 2539 Specimen collection (procedure) (no date) [facility] (missing) (missing) (missing) Result panel 2540 Specimen collection (procedure) (no date) [facility] (missing) (missing) (missing) Result panel 2541 Specimen collection (procedure) (no date) [facility] (missing) (missing) (missing) Result panel 2542 Specimen collection (procedure) (no date) [facility] (missing) (missing) (missing) Result panel 2543 Specimen collection (procedure) (no date) [facility] (missing) (missing) (missing) Result panel 2544 Specimen collection (procedure) (no date) [facility] (missing) (missing) (missing) Result panel 2545 Specimen collection (procedure) (no date) [facility] (missing) (missing) (missing) Result panel 2546 Specimen collection (procedure) (no date) [facility] (missing) (missing) (missing) Result panel 2547 Specimen collection (procedure) (no date) [facility] (missing) (missing) (missing) Result panel 2548 Specimen collection (procedure) (no date) [facility] (missing) (missing) (missing) Result panel 2549 Specimen collection (procedure) (no date) [facility] (missing) (missing) (missing) Result panel 2550 Specimen collection (procedure) (no date) [facility] (missing) (missing) (missing) Result panel 2551 Specimen collection (procedure) (no date) [facility] (missing) (missing) (missing) Result panel 2552 Specimen collection (procedure) (no date) [facility] (missing) (missing) (missing) Result panel 2553 Specimen collection (procedure) (no date) [facility] (missing) (missing) (missing) Result panel 2554 Specimen collection (procedure) (no date) [facility] (missing) (missing) (missing) Result panel 2555 Specimen collection (procedure) (no date) [facility] (missing) (missing) (missing) Result panel 2556 Specimen collection (procedure) (no date) [facility] (missing) (missing) (missing) Result panel 2557 Specimen collection (procedure) (no date) [facility] (missing) (missing) (missing) Result panel 2558 Specimen collection (procedure) (no date) [facility] (missing) (missing) (missing) Result panel 2559 Specimen collection (procedure) (no date) [facility] (missing) (missing) (missing) Result panel 2560 Specimen collection (procedure) (no date) [facility] (missing) (missing) (missing) Result panel 2561 Specimen collection (procedure) (no date) [facility] (missing) (missing) (missing) Result panel 2562 Specimen collection (procedure) (no date) [facility] (missing) (missing) (missing) Result panel 2563 Specimen collection (procedure) (no date) [facility] (missing) (missing) (missing) Result panel 2564 Specimen collection (procedure) (no date) [facility] (missing) (missing) (missing) Result panel 2565 Specimen collection (procedure) (no date) [facility] (missing) (missing) (missing) Result panel 2566 Specimen collection (procedure) (no date) [facility] (missing) (missing) (missing) Result panel 2567 Specimen collection (procedure) (no date) [facility] (missing) (missing) (missing) Result panel 2568 Specimen collection (procedure) (no date) [facility] (missing) (missing) (missing) Result panel 2569 Specimen collection (procedure) (no date) [facility] (missing) (missing) (missing) Result panel 2570 Specimen collection (procedure) (no date) [facility] (missing) (missing) (missing) Result panel 2571 Specimen collection (procedure) (no date) [facility] (missing) (missing) (missing) Result panel 2572 Specimen collection (procedure) (no date) [facility] (missing) (missing) (missing) Result panel 2573 Specimen collection (procedure) (no date) [facility] (missing) (missing) (missing) Result panel 2574 Specimen collection (procedure) (no date) [facility] (missing) (missing) (missing) Result panel 2575 Specimen collection (procedure) (no date) [facility] (missing) (missing) (missing) Result panel 2576 Specimen collection (procedure) (no date) [facility] (missing) (missing) (missing) Result panel 2577 Specimen collection (procedure) (no date) [facility] (missing) (missing) (missing) Result panel 2578 Specimen collection (procedure) (no date) [facility] (missing) (missing) (missing) Result panel 2579 Specimen collection (procedure) (no date) [facility] (missing) (missing) (missing) Result panel 2580 Specimen collection (procedure) (no date) [facility] (missing) (missing) (missing) Result panel 2581 Specimen collection (procedure) (no date) [facility] (missing) (missing) (missing) Result panel 2582 Specimen collection (procedure) (no date) [facility] (missing) (missing) (missing) Result panel 2583 Specimen collection (procedure) (no date) [facility] (missing) (missing) (missing) Result panel 2584 Specimen collection (procedure) (no date) [facility] (missing) (missing) (missing) Result panel 2585 Specimen collection (procedure) (no date) [facility] (missing) (missing) (missing) Result panel 2586 Specimen collection (procedure) (no date) [facility] (missing) (missing) (missing) Result panel 2587 Specimen collection (procedure) (no date) [facility] (missing) (missing) (missing) Result panel 2588 Specimen collection (procedure) (no date) [facility] (missing) (missing) (missing) Result panel 2589 Specimen collection (procedure) (no date) [facility] (missing) (missing) (missing) Result panel 2590 Specimen collection (procedure) (no date) [facility] (missing) (missing) (missing) Result panel 2591 Specimen collection (procedure) (no date) [facility] (missing) (missing) (missing) Result panel 2592 Specimen collection (procedure) (no date) [facility] (missing) (missing) (missing) Result panel 2593 Specimen collection (procedure) (no date) [facility] (missing) (missing) (missing) Result panel 2594 Specimen collection (procedure) (no date) [facility] (missing) (missing) (missing) Result panel 2595 Specimen collection (procedure) (no date) [facility] (missing) (missing) (missing) Result panel 2596 Specimen collection (procedure) (no date) [facility] (missing) (missing) (missing) Result panel 2597 Specimen collection (procedure) (no date) [facility] (missing) (missing) (missing) Result panel 2598 Specimen collection (procedure) (no date) [facility] (missing) (missing) (missing) Result panel 2599 Specimen collection (procedure) (no date) [facility] (missing) (missing) (missing) Result panel 2600 Specimen collection (procedure) (no date) [facility] (missing) (missing) (missing) Result panel 2601 Specimen collection (procedure) (no date) [facility] (missing) (missing) (missing) Result panel 2602 Specimen collection (procedure) (no date) [facility] (missing) (missing) (missing) Result panel 2603 Specimen collection (procedure) (no date) [facility] (missing) (missing) (missing) Result panel 2604 Specimen collection (procedure) (no date) [facility] (missing) (missing) (missing) Result panel 2605 Specimen collection (procedure) (no date) [facility] (missing) (missing) (missing) Result panel 2606 Specimen collection (procedure) (no date) [facility] (missing) (missing) (missing) Result panel 2607 Specimen collection (procedure) (no date) [facility] (missing) (missing) (missing) Result panel 2608 Specimen collection (procedure) (no date) [facility] (missing) (missing) (missing) Result panel 2609 Specimen collection (procedure) (no date) [facility] (missing) (missing) (missing) Result panel 2610 Specimen collection (procedure) (no date) [facility] (missing) (missing) (missing) Result panel 2611 Specimen collection (procedure) (no date) [facility] (missing) (missing) (missing) Result panel 2612 Specimen collection (procedure) (no date) [facility] (missing) (missing) (missing) Result panel 2613 Specimen collection (procedure) (no date) [facility] (missing) (missing) (missing) Result panel 2614 Specimen collection (procedure) (no date) [facility] (missing) (missing) (missing) Result panel 2615 Specimen collection (procedure) (no date) [facility] (missing) (missing) (missing) Result panel 2616 Specimen collection (procedure) (no date) [facility] (missing) (missing) (missing) Result panel 2617 Specimen collection (procedure) (no date) [facility] (missing) (missing) (missing) Result panel 2618 Specimen collection (procedure) (no date) [facility] (missing) (missing) (missing) Result panel 2619 Specimen collection (procedure) (no date) [facility] (missing) (missing) (missing) Result panel 2620 Specimen collection (procedure) (no date) [facility] (missing) (missing) (missing) Result panel 2621 Specimen collection (procedure) (no date) [facility] (missing) (missing) (missing) Result panel 2622 Specimen collection (procedure) (no date) [facility] (missing) (missing) (missing) Result panel 2623 Specimen collection (procedure) (no date) [facility] (missing) (missing) (missing) Result panel 2624 Specimen collection (procedure) (no date) [facility] (missing) (missing) (missing) Result panel 2625 Specimen collection (procedure) (no date) [facility] (missing) (missing) (missing) Result panel 2626 Specimen collection (procedure) (no date) [facility] (missing) (missing) (missing) Result panel 2627 Specimen collection (procedure) (no date) [facility] (missing) (missing) (missing) Result panel 2628 Specimen collection (procedure) (no date) [facility] (missing) (missing) (missing) Result panel 2629 Specimen collection (procedure) (no date) [facility] (missing) (missing) (missing) Result panel 2630 Specimen collection (procedure) (no date) [facility] (missing) (missing) (missing) Result panel 2631 Specimen collection (procedure) (no date) [facility] (missing) (missing) (missing) Result panel 2632 Specimen collection (procedure) (no date) [facility] (missing) (missing) (missing) Result panel 2633 Specimen collection (procedure) (no date) [facility] (missing) (missing) (missing) Result panel 2634 Specimen collection (procedure) (no date) [facility] (missing) (missing) (missing) Result panel 2635 Specimen collection (procedure) (no date) [facility] (missing) (missing) (missing) Result panel 2636 Specimen collection (procedure) (no date) [facility] (missing) (missing) (missing) Result panel 2637 Specimen collection (procedure) (no date) [facility] (missing) (missing) (missing) Result panel 2638 Specimen collection (procedure) (no date) [facility] (missing) (missing) (missing) Result panel 2639 Specimen collection (procedure) (no date) [facility] (missing) (missing) (missing) Result panel 2640 Specimen collection (procedure) (no date) [facility] (missing) (missing) (missing) Result panel 2641 Specimen collection (procedure) (no date) [facility] (missing) (missing) (missing) Result panel 2642 Specimen collection (procedure) (no date) [facility] (missing) (missing) (missing) Result panel 2643 Specimen collection (procedure) (no date) [facility] (missing) (missing) (missing) Result panel 2644 Specimen collection (procedure) (no date) [facility] (missing) (missing) (missing) Result panel 2645 Specimen collection (procedure) (no date) [facility] (missing) (missing) (missing) Result panel 2646 Specimen collection (procedure) (no date) [facility] (missing) (missing) (missing) Result panel 2647 Specimen collection (procedure) (no date) [facility] (missing) (missing) (missing) Result panel 2648 Specimen collection (procedure) (no date) [facility] (missing) (missing) (missing) Result panel 2649 Specimen collection (procedure) (no date) [facility] (missing) (missing) (missing) Result panel 2650 Specimen collection (procedure) (no date) [facility] (missing) (missing) (missing) Result panel 2651 Specimen collection (procedure) (no date) [facility] (missing) (missing) (missing) Result panel 2652 Specimen collection (procedure) (no date) [facility] (missing) (missing) (missing) Result panel 2653 Specimen collection (procedure) (no date) [facility] (missing) (missing) (missing) Result panel 2654 Specimen collection (procedure) (no date) [facility] (missing) (missing) (missing) Result panel 2655 Specimen collection (procedure) (no date) [facility] (missing) (missing) (missing) Result panel 2656 Specimen collection (procedure) (no date) [facility] (missing) (missing) (missing) Result panel 2657 Specimen collection (procedure) (no date) [facility] (missing) (missing) (missing) Result panel 2658 Specimen collection (procedure) (no date) [facility] (missing) (missing) (missing) Result panel 2659 Specimen collection (procedure) (no date) [facility] (missing) (missing) (missing) Result panel 2660 Specimen collection (procedure) (no date) [facility] (missing) (missing) (missing) Result panel 2661 Specimen collection (procedure) (no date) [facility] (missing) (missing) (missing) Result panel 2662 Specimen collection (procedure) (no date) [facility] (missing) (missing) (missing) Result panel 2663 Specimen collection (procedure) (no date) [facility] (missing) (missing) (missing) Result panel 2664 Specimen collection (procedure) (no date) [facility] (missing) (missing) (missing) Result panel 2665 Specimen collection (procedure) (no date) [facility] (missing) (missing) (missing) Result panel 2666 Specimen collection (procedure) (no date) [facility] (missing) (missing) (missing) Result panel 2667 Specimen collection (procedure) (no date) [facility] (missing) (missing) (missing) Result panel 2668 Specimen collection (procedure) (no date) [facility] (missing) (missing) (missing) Result panel 2669 Specimen collection (procedure) (no date) [facility] (missing) (missing) (missing) Result panel 2670 Specimen collection (procedure) (no date) [facility] (missing) (missing) (missing) Result panel 2671 Specimen collection (procedure) (no date) [facility] (missing) (missing) (missing) Result panel 2672 Specimen collection (procedure) (no date) [facility] (missing) (missing) (missing) Result panel 2673 Specimen collection (procedure) (no date) [facility] (missing) (missing) (missing) Result panel 2674 Specimen collection (procedure) (no date) [facility] (missing) (missing) (missing) Result panel 2675 Specimen collection (procedure) (no date) [facility] (missing) (missing) (missing) Result panel 2676 Specimen collection (procedure) (no date) [facility] (missing) (missing) (missing) Result panel 2677 Specimen collection (procedure) (no date) [facility] (missing) (missing) (missing) Result panel 2678 Specimen collection (procedure) (no date) [facility] (missing) (missing) (missing) Result panel 2679 Specimen collection (procedure) (no date) [facility] (missing) (missing) (missing) Result panel 2680 Specimen collection (procedure) (no date) [facility] (missing) (missing) (missing) Result panel 2681 Specimen collection (procedure) (no date) [facility] (missing) (missing) (missing) Result panel 2682 Specimen collection (procedure) (no date) [facility] (missing) (missing) (missing) Result panel 2683 Specimen collection (procedure) (no date) [facility] (missing) (missing) (missing) Result panel 2684 Specimen collection (procedure) (no date) [facility] (missing) (missing) (missing) Result panel 2685 Specimen collection (procedure) (no date) [facility] (missing) (missing) (missing) Result panel 2686 Specimen collection (procedure) (no date) [facility] (missing) (missing) (missing) Result panel 2687 Specimen collection (procedure) (no date) [facility] (missing) (missing) (missing) Result panel 2688 Specimen collection (procedure) (no date) [facility] (missing) (missing) (missing) Result panel 2689 Specimen collection (procedure) (no date) [facility] (missing) (missing) (missing) Result panel 2690 Specimen collection (procedure) (no date) [facility] (missing) (missing) (missing) Result panel 2691 Specimen collection (procedure) (no date) [facility] (missing) (missing) (missing) Result panel 2692 Specimen collection (procedure) (no date) [facility] (missing) (missing) (missing) Result panel 2693 Specimen collection (procedure) (no date) [facility] (missing) (missing) (missing) Result panel 2694 Specimen collection (procedure) (no date) [facility] (missing) (missing) (missing) Result panel 2695 Specimen collection (procedure) (no date) [facility] (missing) (missing) (missing) Result panel 2696 Specimen collection (procedure) (no date) [facility] (missing) (missing) (missing) Result panel 2697 Specimen collection (procedure) (no date) [facility] (missing) (missing) (missing) Result panel 2698 Specimen collection (procedure) (no date) [facility] (missing) (missing) (missing) Result panel 2699 Specimen collection (procedure) (no date) [facility] (missing) (missing) (missing) Result panel 2700 Specimen collection (procedure) (no date) [facility] (missing) (missing) (missing) Result panel 2701 Specimen collection (procedure) (no date) [facility] (missing) (missing) (missing) Result panel 2702 Specimen collection (procedure) (no date) [facility] (missing) (missing) (missing) Result panel 2703 Specimen collection (procedure) (no date) [facility] (missing) (missing) (missing) Result panel 2704 Specimen collection (procedure) (no date) [facility] (missing) (missing) (missing) Result panel 2705 Specimen collection (procedure) (no date) [facility] (missing) (missing) (missing) Result panel 2706 Specimen collection (procedure) (no date) [facility] (missing) (missing) (missing) Result panel 2707 Specimen collection (procedure) (no date) [facility] (missing) (missing) (missing) Result panel 2708 Specimen collection (procedure) (no date) [facility] (missing) (missing) (missing) Result panel 2709 Specimen collection (procedure) (no date) [facility] (missing) (missing) (missing) Result panel 2710 Specimen collection (procedure) (no date) [facility] (missing) (missing) (missing) Result panel 2711 Specimen collection (procedure) (no date) [facility] (missing) (missing) (missing) Result panel 2712 Specimen collection (procedure) (no date) [facility] (missing) (missing) (missing) Result panel 2713 Specimen collection (procedure) (no date) [facility] (missing) (missing) (missing) Result panel 2714 Specimen collection (procedure) (no date) [facility] (missing) (missing) (missing) Result panel 2715 Specimen collection (procedure) (no date) [facility] (missing) (missing) (missing) Result panel 2716 Specimen collection (procedure) (no date) [facility] (missing) (missing) (missing) Result panel 2717 Specimen collection (procedure) (no date) [facility] (missing) (missing) (missing) Result panel 2718 Specimen collection (procedure) (no date) [facility] (missing) (missing) (missing) Result panel 2719 Specimen collection (procedure) (no date) [facility] (missing) (missing) (missing) Result panel 2720 Specimen collection (procedure) (no date) [facility] (missing) (missing) (missing) Result panel 2721 Specimen collection (procedure) (no date) [facility] (missing) (missing) (missing) Result panel 2722 Specimen collection (procedure) (no date) [facility] (missing) (missing) (missing) Result panel 2723 Specimen collection (procedure) (no date) [facility] (missing) (missing) (missing) Result panel 2724 Specimen collection (procedure) (no date) [facility] (missing) (missing) (missing) Result panel 2725 Specimen collection (procedure) (no date) [facility] (missing) (missing) (missing) Result panel 2726 Specimen collection (procedure) (no date) [facility] (missing) (missing) (missing) Result panel 2727 Specimen collection (procedure) (no date) [facility] (missing) (missing) (missing) Result panel 2728 Specimen collection (procedure) (no date) [facility] (missing) (missing) (missing) Result panel 2729 Specimen collection (procedure) (no date) [facility] (missing) (missing) (missing) Result panel 2730 Specimen collection (procedure) (no date) [facility] (missing) (missing) (missing) Result panel 2731 Specimen collection (procedure) (no date) [facility] (missing) (missing) (missing) Result panel 2732 Specimen collection (procedure) (no date) [facility] (missing) (missing) (missing) Result panel 2733 Specimen collection (procedure) (no date) [facility] (missing) (missing) (missing) Result panel 2734 Specimen collection (procedure) (no date) [facility] (missing) (missing) (missing) Result panel 2735 Specimen collection (procedure) (no date) [facility] (missing) (missing) (missing) Result panel 2736 Specimen collection (procedure) (no date) [facility] (missing) (missing) (missing) Result panel 2737 Specimen collection (procedure) (no date) [facility] (missing) (missing) (missing) Result panel 2738 Specimen collection (procedure) (no date) [facility] (missing) (missing) (missing) Result panel 2739 Specimen collection (procedure) (no date) [facility] (missing) (missing) (missing) Result panel 2740 Specimen collection (procedure) (no date) [facility] (missing) (missing) (missing) Result panel 2741 Specimen collection (procedure) (no date) [facility] (missing) (missing) (missing) Result panel 2742 Specimen collection (procedure) (no date) [facility] (missing) (missing) (missing) Result panel 2743 Specimen collection (procedure) (no date) [facility] (missing) (missing) (missing) Result panel 2744 Specimen collection (procedure) (no date) [facility] (missing) (missing) (missing) Result panel 2745 Specimen collection (procedure) (no date) [facility] (missing) (missing) (missing) Result panel 2746 Specimen collection (procedure) (no date) [facility] (missing) (missing) (missing) Result panel 2747 Specimen collection (procedure) (no date) [facility] (missing) (missing) (missing) Result panel 2748 Specimen collection (procedure) (no date) [facility] (missing) (missing) (missing) Result panel 2749 Specimen collection (procedure) (no date) [facility] (missing) (missing) (missing) Result panel 2750 Specimen collection (procedure) (no date) [facility] (missing) (missing) (missing) Result panel 2751 Specimen collection (procedure) (no date) [facility] (missing) (missing) (missing) Result panel 2752 Specimen collection (procedure) (no date) [facility] (missing) (missing) (missing) Result panel 2753 Specimen collection (procedure) (no date) [facility] (missing) (missing) (missing) Result panel 2754 Specimen collection (procedure) (no date) [facility] (missing) (missing) (missing) Result panel 2755 Specimen collection (procedure) (no date) [facility] (missing) (missing) (missing) Result panel 2756 Specimen collection (procedure) (no date) [facility] (missing) (missing) (missing) Result panel 2757 Specimen collection (procedure) (no date) [facility] (missing) (missing) (missing) Result panel 2758 Specimen collection (procedure) (no date) [facility] (missing) (missing) (missing) Result panel 2759 Specimen collection (procedure) (no date) [facility] (missing) (missing) (missing) Result panel 2760 Specimen collection (procedure) (no date) [facility] (missing) (missing) (missing) Result panel 2761 Specimen collection (procedure) (no date) [facility] (missing) (missing) (missing) Result panel 2762 Specimen collection (procedure) (no date) [facility] (missing) (missing) (missing) Result panel 2763 Specimen collection (procedure) (no date) [facility] (missing) (missing) (missing) Result panel 2764 Specimen collection (procedure) (no date) [facility] (missing) (missing) (missing) Result panel 2765 Specimen collection (procedure) (no date) [facility] (missing) (missing) (missing) Result panel 2766 Specimen collection (procedure) (no date) [facility] (missing) (missing) (missing) Result panel 2767 Specimen collection (procedure) (no date) [facility] (missing) (missing) (missing) Result panel 2768 Specimen collection (procedure) (no date) [facility] (missing) (missing) (missing) Result panel 2769 Specimen collection (procedure) (no date) [facility] (missing) (missing) (missing) Result panel 2770 Specimen collection (procedure) (no date) [facility] (missing) (missing) (missing) Result panel 2771 Specimen collection (procedure) (no date) [facility] (missing) (missing) (missing) Result panel 2772 Specimen collection (procedure) (no date) [facility] (missing) (missing) (missing) Result panel 2773 Specimen collection (procedure) (no date) [facility] (missing) (missing) (missing) Result panel 2774 Specimen collection (procedure) (no date) [facility] (missing) (missing) (missing) Result panel 2775 Specimen collection (procedure) (no date) [facility] (missing) (missing) (missing) Result panel 2776 Specimen collection (procedure) (no date) [facility] (missing) (missing) (missing) Result panel 2777 Specimen collection (procedure) (no date) [facility] (missing) (missing) (missing) Result panel 2778 Specimen collection (procedure) (no date) [facility] (missing) (missing) (missing) Result panel 2779 Specimen collection (procedure) (no date) [facility] (missing) (missing) (missing) Result panel 2780 Specimen collection (procedure) (no date) [facility] (missing) (missing) (missing) Result panel 2781 Specimen collection (procedure) (no date) [facility] (missing) (missing) (missing) Result panel 2782 Specimen collection (procedure) (no date) [facility] (missing) (missing) (missing) Result panel 2783 Specimen collection (procedure) (no date) [facility] (missing) (missing) (missing) Result panel 2784 Specimen collection (procedure) (no date) [facility] (missing) (missing) (missing) Result panel 2785 Specimen collection (procedure) (no date) [facility] (missing) (missing) (missing) Result panel 2786 Specimen collection (procedure) (no date) [facility] (missing) (missing) (missing) Result panel 2787 Specimen collection (procedure) (no date) [facility] (missing) (missing) (missing) Result panel 2788 Specimen collection (procedure) (no date) [facility] (missing) (missing) (missing) Result panel 2789 Specimen collection (procedure) (no date) [facility] (missing) (missing) (missing) Result panel 2790 Specimen collection (procedure) (no date) [facility] (missing) (missing) (missing) Result panel 2791 Specimen collection (procedure) (no date) [facility] (missing) (missing) (missing) Result panel 2792 Specimen collection (procedure) (no date) [facility] (missing) (missing) (missing) Result panel 2793 Specimen collection (procedure) (no date) [facility] (missing) (missing) (missing) Result panel 2794 Specimen collection (procedure) (no date) [facility] (missing) (missing) (missing) Result panel 2795 Specimen collection (procedure) (no date) [facility] (missing) (missing) (missing) Result panel 2796 Specimen collection (procedure) (no date) [facility] (missing) (missing) (missing) Result panel 2797 Specimen collection (procedure) (no date) [facility] (missing) (missing) (missing) Result panel 2798 Specimen collection (procedure) (no date) [facility] (missing) (missing) (missing) Result panel 2799 Specimen collection (procedure) (no date) [facility] (missing) (missing) (missing) Result panel 2800 Specimen collection (procedure) (no date) [facility] (missing) (missing) (missing) Result panel 2801 Specimen collection (procedure) (no date) [facility] (missing) (missing) (missing) Result panel 2802 Specimen collection (procedure) (no date) [facility] (missing) (missing) (missing) Result panel 2803 Specimen collection (procedure) (no date) [facility] (missing) (missing) (missing) Result panel 2804 Specimen collection (procedure) (no date) [facility] (missing) (missing) (missing) Result panel 2805 Specimen collection (procedure) (no date) [facility] (missing) (missing) (missing) Result panel 2806 Specimen collection (procedure) (no date) [facility] (missing) (missing) (missing) Result panel 2807 Specimen collection (procedure) (no date) [facility] (missing) (missing) (missing) Result panel 2808 Specimen collection (procedure) (no date) [facility] (missing) (missing) (missing) Result panel 2809 Specimen collection (procedure) (no date) [facility] (missing) (missing) (missing) Result panel 2810 Specimen collection (procedure) (no date) [facility] (missing) (missing) (missing) Result panel 2811 Specimen collection (procedure) (no date) [facility] (missing) (missing) (missing) Result panel 2812 Specimen collection (procedure) (no date) [facility] (missing) (missing) (missing) Result panel 2813 Specimen collection (procedure) (no date) [facility] (missing) (missing) (missing) Result panel 2814 Specimen collection (procedure) (no date) [facility] (missing) (missing) (missing) Result panel 2815 Specimen collection (procedure) (no date) [facility] (missing) (missing) (missing) Result panel 2816 Specimen collection (procedure) (no date) [facility] (missing) (missing) (missing) Result panel 2817 Specimen collection (procedure) (no date) [facility] (missing) (missing) (missing) Result panel 2818 Specimen collection (procedure) (no date) [facility] (missing) (missing) (missing) Result panel 2819 Specimen collection (procedure) (no date) [facility] (missing) (missing) (missing) Result panel 2820 Specimen collection (procedure) (no date) [facility] (missing) (missing) (missing) Result panel 2821 Specimen collection (procedure) (no date) [facility] (missing) (missing) (missing) Result panel 2822 Specimen collection (procedure) (no date) [facility] (missing) (missing) (missing) Result panel 2823 Specimen collection (procedure) (no date) [facility] (missing) (missing) (missing) Result panel 2824 Specimen collection (procedure) (no date) [facility] (missing) (missing) (missing) Result panel 2825 Specimen collection (procedure) (no date) [facility] (missing) (missing) (missing) Result panel 2826 Specimen collection (procedure) (no date) [facility] (missing) (missing) (missing) Result panel 2827 Specimen collection (procedure) (no date) [facility] (missing) (missing) (missing) Result panel 2828 Specimen collection (procedure) (no date) [facility] (missing) (missing) (missing) Result panel 2829 Specimen collection (procedure) (no date) [facility] (missing) (missing) (missing) Result panel 2830 Specimen collection (procedure) (no date) [facility] (missing) (missing) (missing) Result panel 2831 Specimen collection (procedure) (no date) [facility] (missing) (missing) (missing) Result panel 2832 Specimen collection (procedure) (no date) [facility] (missing) (missing) (missing) Result panel 2833 Specimen collection (procedure) (no date) [facility] (missing) (missing) (missing) Result panel 2834 Specimen collection (procedure) (no date) [facility] (missing) (missing) (missing) Result panel 2835 Specimen collection (procedure) (no date) [facility] (missing) (missing) (missing) Result panel 2836 Specimen collection (procedure) (no date) [facility] (missing) (missing) (missing) Result panel 2837 Specimen collection (procedure) (no date) [facility] (missing) (missing) (missing) Result panel 2838 Specimen collection (procedure) (no date) [facility] (missing) (missing) (missing) Result panel 2839 Specimen collection (procedure) (no date) [facility] (missing) (missing) (missing) Result panel 2840 Specimen collection (procedure) (no date) [facility] (missing) (missing) (missing) Result panel 2841 Specimen collection (procedure) (no date) [facility] (missing) (missing) (missing) Result panel 2842 Specimen collection (procedure) (no date) [facility] (missing) (missing) (missing) Result panel 2843 Specimen collection (procedure) (no date) [facility] (missing) (missing) (missing) Result panel 2844 Specimen collection (procedure) (no date) [facility] (missing) (missing) (missing) Result panel 2845 Specimen collection (procedure) (no date) [facility] (missing) (missing) (missing) Result panel 2846 Specimen collection (procedure) (no date) [facility] (missing) (missing) (missing) Result panel 2847 Specimen collection (procedure) (no date) [facility] (missing) (missing) (missing) Result panel 2848 Specimen collection (procedure) (no date) [facility] (missing) (missing) (missing) Result panel 2849 Specimen collection (procedure) (no date) [facility] (missing) (missing) (missing) Result panel 2850 Specimen collection (procedure) (no date) [facility] (missing) (missing) (missing) Result panel 2851 Specimen collection (procedure) (no date) [facility] (missing) (missing) (missing) Result panel 2852 Specimen collection (procedure) (no date) [facility] (missing) (missing) (missing) Result panel 2853 Specimen collection (procedure) (no date) [facility] (missing) (missing) (missing) Result panel 2854 Specimen collection (procedure) (no date) [facility] (missing) (missing) (missing) Result panel 2855 Specimen collection (procedure) (no date) [facility] (missing) (missing) (missing) Result panel 2856 Specimen collection (procedure) (no date) [facility] (missing) (missing) (missing) Result panel 2857 Specimen collection (procedure) (no date) [facility] (missing) (missing) (missing) Result panel 2858 Specimen collection (procedure) (no date) [facility] (missing) (missing) (missing) Result panel 2859 Specimen collection (procedure) (no date) [facility] (missing) (missing) (missing) Result panel 2860 Specimen collection (procedure) (no date) [facility] (missing) (missing) (missing) Result panel 2861 Specimen collection (procedure) (no date) [facility] (missing) (missing) (missing) Result panel 2862 Specimen collection (procedure) (no date) [facility] (missing) (missing) (missing) Result panel 2863 Specimen collection (procedure) (no date) [facility] (missing) (missing) (missing) Result panel 2864 Specimen collection (procedure) (no date) [facility] (missing) (missing) (missing) Result panel 2865 Specimen collection (procedure) (no date) [facility] (missing) (missing) (missing) Result panel 2866 Specimen collection (procedure) (no date) [facility] (missing) (missing) (missing) Result panel 2867 Specimen collection (procedure) (no date) [facility] (missing) (missing) (missing) Result panel 2868 Specimen collection (procedure) (no date) [facility] (missing) (missing) (missing) Result panel 2869 Specimen collection (procedure) (no date) [facility] (missing) (missing) (missing) Result panel 2870 Specimen collection (procedure) (no date) [facility] (missing) (missing) (missing) Result panel 2871 Specimen collection (procedure) (no date) [facility] (missing) (missing) (missing) Result panel 2872 Specimen collection (procedure) (no date) [facility] (missing) (missing) (missing) Result panel 2873 Specimen collection (procedure) (no date) [facility] (missing) (missing) (missing) Result panel 2874 Specimen collection (procedure) (no date) [facility] (missing) (missing) (missing) Result panel 2875 Specimen collection (procedure) (no date) [facility] (missing) (missing) (missing) Result panel 2876 Specimen collection (procedure) (no date) [facility] (missing) (missing) (missing) Result panel 2877 Specimen collection (procedure) (no date) [facility] (missing) (missing) (missing) Result panel 2878 Specimen collection (procedure) (no date) [facility] (missing) (missing) (missing) Result panel 2879 Specimen collection (procedure) (no date) [facility] (missing) (missing) (missing) Result panel 2880 Specimen collection (procedure) (no date) [facility] (missing) (missing) (missing) Result panel 2881 Specimen collection (procedure) (no date) [facility] (missing) (missing) (missing) Result panel 2882 Specimen collection (procedure) (no date) [facility] (missing) (missing) (missing) Result panel 2883 Specimen collection (procedure) (no date) [facility] (missing) (missing) (missing) Result panel 2884 Specimen collection (procedure) (no date) [facility] (missing) (missing) (missing) Result panel 2885 Specimen collection (procedure) (no date) [facility] (missing) (missing) (missing) Result panel 2886 Specimen collection (procedure) (no date) [facility] (missing) (missing) (missing) Result panel 2887 Specimen collection (procedure) (no date) [facility] (missing) (missing) (missing) Result panel 2888 Specimen collection (procedure) (no date) [facility] (missing) (missing) (missing) Result panel 2889 Specimen collection (procedure) (no date) [facility] (missing) (missing) (missing) Result panel 2890 Specimen collection (procedure) (no date) [facility] (missing) (missing) (missing) Result panel 2891 Specimen collection (procedure) (no date) [facility] (missing) (missing) (missing) Result panel 2892 Specimen collection (procedure) (no date) [facility] (missing) (missing) (missing) Result panel 2893 Specimen collection (procedure) (no date) [facility] (missing) (missing) (missing) Result panel 2894 Specimen collection (procedure) (no date) [facility] (missing) (missing) (missing) Result panel 2895 Specimen collection (procedure) (no date) [facility] (missing) (missing) (missing) Result panel 2896 Specimen collection (procedure) (no date) [facility] (missing) (missing) (missing) Result panel 2897 Specimen collection (procedure) (no date) [facility] (missing) (missing) (missing) Result panel 2898 Specimen collection (procedure) (no date) [facility] (missing) (missing) (missing) Result panel 2899 Specimen collection (procedure) (no date) [facility] (missing) (missing) (missing) Result panel 2900 Specimen collection (procedure) (no date) [facility] (missing) (missing) (missing) Result panel 2901 Specimen collection (procedure) (no date) [facility] (missing) (missing) (missing) Result panel 2902 Specimen collection (procedure) (no date) [facility] (missing) (missing) (missing) Result panel 2903 Specimen collection (procedure) (no date) [facility] (missing) (missing) (missing) Result panel 2904 Specimen collection (procedure) (no date) [facility] (missing) (missing) (missing) Result panel 2905 Specimen collection (procedure) (no date) [facility] (missing) (missing) (missing) Result panel 2906 Specimen collection (procedure) (no date) [facility] (missing) (missing) (missing) Result panel 2907 Specimen collection (procedure) (no date) [facility] (missing) (missing) (missing) Result panel 2908 Specimen collection (procedure) (no date) [facility] (missing) (missing) (missing) Result panel 2909 Specimen collection (procedure) (no date) [facility] (missing) (missing) (missing) Result panel 2910 Specimen collection (procedure) (no date) [facility] (missing) (missing) (missing) Result panel 2911 Specimen collection (procedure) (no date) [facility] (missing) (missing) (missing) Result panel 2912 Specimen collection (procedure) (no date) [facility] (missing) (missing) (missing) Result panel 2913 Specimen collection (procedure) (no date) [facility] (missing) (missing) (missing) Result panel 2914 Specimen collection (procedure) (no date) [facility] (missing) (missing) (missing) Result panel 2915 Specimen collection (procedure) (no date) [facility] (missing) (missing) (missing) Result panel 2916 Specimen collection (procedure) (no date) [facility] (missing) (missing) (missing) Result panel 2917 Specimen collection (procedure) (no date) [facility] (missing) (missing) (missing) Result panel 2918 Specimen collection (procedure) (no date) [facility] (missing) (missing) (missing) Result panel 2919 Specimen collection (procedure) (no date) [facility] (missing) (missing) (missing) Result panel 2920 Specimen collection (procedure) (no date) [facility] (missing) (missing) (missing) Result panel 2921 Specimen collection (procedure) (no date) [facility] (missing) (missing) (missing) Result panel 2922 Specimen collection (procedure) (no date) [facility] (missing) (missing) (missing) Result panel 2923 Specimen collection (procedure) (no date) [facility] (missing) (missing) (missing) Result panel 2924 Specimen collection (procedure) (no date) [facility] (missing) (missing) (missing) Result panel 2925 Specimen collection (procedure) (no date) [facility] (missing) (missing) (missing) Result panel 2926 Specimen collection (procedure) (no date) [facility] (missing) (missing) (missing) Result panel 2927 Specimen collection (procedure) (no date) [facility] (missing) (missing) (missing) Result panel 2928 Specimen collection (procedure) (no date) [facility] (missing) (missing) (missing) Result panel 2929 Specimen collection (procedure) (no date) [facility] (missing) (missing) (missing) Result panel 2930 Specimen collection (procedure) (no date) [facility] (missing) (missing) (missing) Result panel 2931 Specimen collection (procedure) (no date) [facility] (missing) (missing) (missing) Result panel 2932 Specimen collection (procedure) (no date) [facility] (missing) (missing) (missing) Result panel 2933 Specimen collection (procedure) (no date) [facility] (missing) (missing) (missing) Result panel 2934 Specimen collection (procedure) (no date) [facility] (missing) (missing) (missing) Result panel 2935 Specimen collection (procedure) (no date) [facility] (missing) (missing) (missing) Result panel 2936 Specimen collection (procedure) (no date) [facility] (missing) (missing) (missing) Result panel 2937 Specimen collection (procedure) (no date) [facility] (missing) (missing) (missing) Result panel 2938 Specimen collection (procedure) (no date) [facility] (missing) (missing) (missing) Result panel 2939 Specimen collection (procedure) (no date) [facility] (missing) (missing) (missing) Result panel 2940 Specimen collection (procedure) (no date) [facility] (missing) (missing) (missing) Result panel 2941 Specimen collection (procedure) (no date) [facility] (missing) (missing) (missing) Result panel 2942 Specimen collection (procedure) (no date) [facility] (missing) (missing) (missing) Result panel 2943 Specimen collection (procedure) (no date) [facility] (missing) (missing) (missing) Result panel 2944 Specimen collection (procedure) (no date) [facility] (missing) (missing) (missing) Result panel 2945 Specimen collection (procedure) (no date) [facility] (missing) (missing) (missing) Result panel 2946 Specimen collection (procedure) (no date) [facility] (missing) (missing) (missing) Result panel 2947 Specimen collection (procedure) (no date) [facility] (missing) (missing) (missing) Result panel 2948 Specimen collection (procedure) (no date) [facility] (missing) (missing) (missing) Result panel 2949 Specimen collection (procedure) (no date) [facility] (missing) (missing) (missing) Result panel 2950 Specimen collection (procedure) (no date) [facility] (missing) (missing) (missing) Result panel 2951 Specimen collection (procedure) (no date) [facility] (missing) (missing) (missing) Result panel 2952 Specimen collection (procedure) (no date) [facility] (missing) (missing) (missing) Result panel 2953 Specimen collection (procedure) (no date) [facility] (missing) (missing) (missing) Result panel 2954 Specimen collection (procedure) (no date) [facility] (missing) (missing) (missing) Result panel 2955 Specimen collection (procedure) (no date) [facility] (missing) (missing) (missing) Result panel 2956 Specimen collection (procedure) (no date) [facility] (missing) (missing) (missing) Result panel 2957 Specimen collection (procedure) (no date) [facility] (missing) (missing) (missing) Result panel 2958 Specimen collection (procedure) (no date) [facility] (missing) (missing) (missing) Result panel 2959 Specimen collection (procedure) (no date) [facility] (missing) (missing) (missing) Result panel 2960 Specimen collection (procedure) (no date) [facility] (missing) (missing) (missing) Result panel 2961 Specimen collection (procedure) (no date) [facility] (missing) (missing) (missing) Result panel 2962 Specimen collection (procedure) (no date) [facility] (missing) (missing) (missing) Result panel 2963 Specimen collection (procedure) (no date) [facility] (missing) (missing) (missing) Result panel 2964 Specimen collection (procedure) (no date) [facility] (missing) (missing) (missing) Result panel 2965 Specimen collection (procedure) (no date) [facility] (missing) (missing) (missing) Result panel 2966 Specimen collection (procedure) (no date) [facility] (missing) (missing) (missing) Result panel 2967 Specimen collection (procedure) (no date) [facility] (missing) (missing) (missing) Result panel 2968 Specimen collection (procedure) (no date) [facility] (missing) (missing) (missing) Result panel 2969 Specimen collection (procedure) (no date) [facility] (missing) (missing) (missing) Result panel 2970 Specimen collection (procedure) (no date) [facility] (missing) (missing) (missing) Result panel 2971 Specimen collection (procedure) (no date) [facility] (missing) (missing) (missing) Result panel 2972 Specimen collection (procedure) (no date) [facility] (missing) (missing) (missing) Result panel 2973 Specimen collection (procedure) (no date) [facility] (missing) (missing) (missing) Result panel 2974 Specimen collection (procedure) (no date) [facility] (missing) (missing) (missing) Result panel 2975 Specimen collection (procedure) (no date) [facility] (missing) (missing) (missing) Result panel 2976 Specimen collection (procedure) (no date) [facility] (missing) (missing) (missing) Result panel 2977 Specimen collection (procedure) (no date) [facility] (missing) (missing) (missing) Result panel 2978 Specimen collection (procedure) (no date) [facility] (missing) (missing) (missing) Result panel 2979 Specimen collection (procedure) (no date) [facility] (missing) (missing) (missing) Result panel 2980 Specimen collection (procedure) (no date) [facility] (missing) (missing) (missing) Result panel 2981 Specimen collection (procedure) (no date) [facility] (missing) (missing) (missing) Result panel 2982 Specimen collection (procedure) (no date) [facility] (missing) (missing) (missing) Result panel 2983 Specimen collection (procedure) (no date) [facility] (missing) (missing) (missing) Result panel 2984 Specimen collection (procedure) (no date) [facility] (missing) (missing) (missing) Result panel 2985 Specimen collection (procedure) (no date) [facility] (missing) (missing) (missing) Result panel 2986 Specimen collection (procedure) (no date) [facility] (missing) (missing) (missing) Result panel 2987 Specimen collection (procedure) (no date) [facility] (missing) (missing) (missing) Result panel 2988 Specimen collection (procedure) (no date) [facility] (missing) (missing) (missing) Result panel 2989 Specimen collection (procedure) (no date) [facility] (missing) (missing) (missing) Result panel 2990 Specimen collection (procedure) (no date) [facility] (missing) (missing) (missing) Result panel 2991 Specimen collection (procedure) (no date) [facility] (missing) (missing) (missing) Result panel 2992 Specimen collection (procedure) (no date) [facility] (missing) (missing) (missing) Result panel 2993 Specimen collection (procedure) (no date) [facility] (missing) (missing) (missing) Result panel 2994 Specimen collection (procedure) (no date) [facility] (missing) (missing) (missing) Result panel 2995 Specimen collection (procedure) (no date) [facility] (missing) (missing) (missing) Result panel 2996 Specimen collection (procedure) (no date) [facility] (missing) (missing) (missing) Result panel 2997 Specimen collection (procedure) (no date) [facility] (missing) (missing) (missing) Result panel 2998 Specimen collection (procedure) (no date) [facility] (missing) (missing) (missing) Result panel 2999 Specimen collection (procedure) (no date) [facility] (missing) (missing) (missing) Result panel 3000 Specimen collection (procedure) (no date) [facility] (missing) (missing) (missing) Result panel 3001 Specimen collection (procedure) (no date) [facility] (missing) (missing) (missing) Result panel 3002 Specimen collection (procedure) (no date) [facility] (missing) (missing) (missing) Result panel 3003 Specimen collection (procedure) (no date) [facility] (missing) (missing) (missing) Result panel 3004 Specimen collection (procedure) (no date) [facility] (missing) (missing) (missing) Result panel 3005 Specimen collection (procedure) (no date) [facility] (missing) (missing) (missing) Result panel 3006 Specimen collection (procedure) (no date) [facility] (missing) (missing) (missing) Result panel 3007 Specimen collection (procedure) (no date) [facility] (missing) (missing) (missing) Result panel 3008 Specimen collection (procedure) (no date) [facility] (missing) (missing) (missing) Result panel 3009 Specimen collection (procedure) (no date) [facility] (missing) (missing) (missing) Result panel 3010 Specimen collection (procedure) (no date) [facility] (missing) (missing) (missing) Result panel 3011 Specimen collection (procedure) (no date) [facility] (missing) (missing) (missing) Result panel 3012 Specimen collection (procedure) (no date) [facility] (missing) (missing) (missing) Result panel 3013 Specimen collection (procedure) (no date) [facility] (missing) (missing) (missing) Result panel 3014 Specimen collection (procedure) (no date) [facility] (missing) (missing) (missing) Result panel 3015 Specimen collection (procedure) (no date) [facility] (missing) (missing) (missing) Result panel 3016 Specimen collection (procedure) (no date) [facility] (missing) (missing) (missing) Result panel 3017 Specimen collection (procedure) (no date) [facility] (missing) (missing) (missing) Result panel 3018 Specimen collection (procedure) (no date) [facility] (missing) (missing) (missing) Result panel 3019 Specimen collection (procedure) (no date) [facility] (missing) (missing) (missing) Result panel 3020 Specimen collection (procedure) (no date) [facility] (missing) (missing) (missing) Result panel 3021 Specimen collection (procedure) (no date) [facility] (missing) (missing) (missing) Result panel 3022 Specimen collection (procedure) (no date) [facility] (missing) (missing) (missing) Result panel 3023 Specimen collection (procedure) (no date) [facility] (missing) (missing) (missing) Result panel 3024 Specimen collection (procedure) (no date) [facility] (missing) (missing) (missing) Result panel 3025 Specimen collection (procedure) (no date) [facility] (missing) (missing) (missing) Result panel 3026 Specimen collection (procedure) (no date) [facility] (missing) (missing) (missing) Result panel 3027 Specimen collection (procedure) (no date) [facility] (missing) (missing) (missing) Result panel 3028 Specimen collection (procedure) (no date) [facility] (missing) (missing) (missing) Result panel 3029 Specimen collection (procedure) (no date) [facility] (missing) (missing) (missing) Result panel 3030 Specimen collection (procedure) (no date) [facility] (missing) (missing) (missing) Result panel 3031 Specimen collection (procedure) (no date) [facility] (missing) (missing) (missing) Result panel 3032 Specimen collection (procedure) (no date) [facility] (missing) (missing) (missing) Result panel 3033 Specimen collection (procedure) (no date) [facility] (missing) (missing) (missing) Result panel 3034 Specimen collection (procedure) (no date) [facility] (missing) (missing) (missing) Result panel 3035 Specimen collection (procedure) (no date) [facility] (missing) (missing) (missing) Result panel 3036 Specimen collection (procedure) (no date) [facility] (missing) (missing) (missing) Result panel 3037 Specimen collection (procedure) (no date) [facility] (missing) (missing) (missing) Result panel 3038 Specimen collection (procedure) (no date) [facility] (missing) (missing) (missing) Result panel 3039 Specimen collection (procedure) (no date) [facility] (missing) (missing) (missing) Result panel 3040 Specimen collection (procedure) (no date) [facility] (missing) (missing) (missing) Result panel 3041 Specimen collection (procedure) (no date) [facility] (missing) (missing) (missing) Result panel 3042 Specimen collection (procedure) (no date) [facility] (missing) (missing) (missing) Result panel 3043 Specimen collection (procedure) (no date) [facility] (missing) (missing) (missing) Result panel 3044 Specimen collection (procedure) (no date) [facility] (missing) (missing) (missing) Result panel 3045 Specimen collection (procedure) (no date) [facility] (missing) (missing) (missing) Result panel 3046 Specimen collection (procedure) (no date) [facility] (missing) (missing) (missing) Result panel 3047 Specimen collection (procedure) (no date) [facility] (missing) (missing) (missing) Result panel 3048 Specimen collection (procedure) (no date) [facility] (missing) (missing) (missing) Result panel 3049 Specimen collection (procedure) (no date) [facility] (missing) (missing) (missing) Result panel 3050 Specimen collection (procedure) (no date) [facility] (missing) (missing) (missing) Result panel 3051 Specimen collection (procedure) (no date) [facility] (missing) (missing) (missing) Result panel 3052 Specimen collection (procedure) (no date) [facility] (missing) (missing) (missing) Result panel 3053 Specimen collection (procedure) (no date) [facility] (missing) (missing) (missing) Result panel 3054 Specimen collection (procedure) (no date) [facility] (missing) (missing) (missing) Result panel 3055 Specimen collection (procedure) (no date) [facility] (missing) (missing) (missing) Result panel 3056 Specimen collection (procedure) (no date) [facility] (missing) (missing) (missing) Result panel 3057 Specimen collection (procedure) (no date) [facility] (missing) (missing) (missing) Result panel 3058 Specimen collection (procedure) (no date) [facility] (missing) (missing) (missing) Result panel 3059 Specimen collection (procedure) (no date) [facility] (missing) (missing) (missing) Result panel 3060 Specimen collection (procedure) (no date) [facility] (missing) (missing) (missing) Result panel 3061 Specimen collection (procedure) (no date) [facility] (missing) (missing) (missing) Result panel 3062 Specimen collection (procedure) (no date) [facility] (missing) (missing) (missing) Result panel 3063 Specimen collection (procedure) (no date) [facility] (missing) (missing) (missing) Result panel 3064 Specimen collection (procedure) (no date) [facility] (missing) (missing) (missing) Result panel 3065 Specimen collection (procedure) (no date) [facility] (missing) (missing) (missing) Result panel 3066 Specimen collection (procedure) (no date) [facility] (missing) (missing) (missing) Result panel 3067 Specimen collection (procedure) (no date) [facility] (missing) (missing) (missing) Result panel 3068 Specimen collection (procedure) (no date) [facility] (missing) (missing) (missing) Result panel 3069 Specimen collection (procedure) (no date) [facility] (missing) (missing) (missing) Result panel 3070 Specimen collection (procedure) (no date) [facility] (missing) (missing) (missing) Result panel 3071 Specimen collection (procedure) (no date) [facility] (missing) (missing) (missing) Result panel 3072 Specimen collection (procedure) (no date) [facility] (missing) (missing) (missing) Result panel 3073 Specimen collection (procedure) (no date) [facility] (missing) (missing) (missing) Result panel 3074 Specimen collection (procedure) (no date) [facility] (missing) (missing) (missing) Result panel 3075 Specimen collection (procedure) (no date) [facility] (missing) (missing) (missing) Result panel 3076 Specimen collection (procedure) (no date) [facility] (missing) (missing) (missing) Result panel 3077 Specimen collection (procedure) (no date) [facility] (missing) (missing) (missing) Result panel 3078 Specimen collection (procedure) (no date) [facility] (missing) (missing) (missing) Result panel 3079 Specimen collection (procedure) (no date) [facility] (missing) (missing) (missing) Result panel 3080 Specimen collection (procedure) (no date) [facility] (missing) (missing) (missing) Result panel 3081 Specimen collection (procedure) (no date) [facility] (missing) (missing) (missing) Result panel 3082 Specimen collection (procedure) (no date) [facility] (missing) (missing) (missing) Result panel 3083 Specimen collection (procedure) (no date) [facility] (missing) (missing) (missing) Result panel 3084 Specimen collection (procedure) (no date) [facility] (missing) (missing) (missing) Result panel 3085 Specimen collection (procedure) (no date) [facility] (missing) (missing) (missing) Result panel 3086 Specimen collection (procedure) (no date) [facility] (missing) (missing) (missing) Result panel 3087 Specimen collection (procedure) (no date) [facility] (missing) (missing) (missing) Result panel 3088 Specimen collection (procedure) (no date) [facility] (missing) (missing) (missing) Result panel 3089 Specimen collection (procedure) (no date) [facility] (missing) (missing) (missing) Result panel 3090 Specimen collection (procedure) (no date) [facility] (missing) (missing) (missing) Result panel 3091 Specimen collection (procedure) (no date) [facility] (missing) (missing) (missing) Result panel 3092 Specimen collection (procedure) (no date) [facility] (missing) (missing) (missing) Result panel 3093 Specimen collection (procedure) (no date) [facility] (missing) (missing) (missing) Result panel 3094 Specimen collection (procedure) (no date) [facility] (missing) (missing) (missing) Result panel 3095 Specimen collection (procedure) (no date) [facility] (missing) (missing) (missing) Result panel 3096 Specimen collection (procedure) (no date) [facility] (missing) (missing) (missing) Result panel 3097 Specimen collection (procedure) (no date) [facility] (missing) (missing) (missing) Result panel 3098 Specimen collection (procedure) (no date) [facility] (missing) (missing) (missing) Result panel 3099 Specimen collection (procedure) (no date) [facility] (missing) (missing) (missing) Result panel 3100 Specimen collection (procedure) (no date) [facility] (missing) (missing) (missing) Result panel 3101 Specimen collection (procedure) (no date) [facility] (missing) (missing) (missing) Result panel 3102 Specimen collection (procedure) (no date) [facility] (missing) (missing) (missing) Result panel 3103 Specimen collection (procedure) (no date) [facility] (missing) (missing) (missing) Result panel 3104 Specimen collection (procedure) (no date) [facility] (missing) (missing) (missing) Result panel 3105 Specimen collection (procedure) (no date) [facility] (missing) (missing) (missing) Result panel 3106 Specimen collection (procedure) (no date) [facility] (missing) (missing) (missing) Result panel 3107 Specimen collection (procedure) (no date) [facility] (missing) (missing) (missing) Result panel 3108 Specimen collection (procedure) (no date) [facility] (missing) (missing) (missing) Result panel 3109 Specimen collection (procedure) (no date) [facility] (missing) (missing) (missing) Result panel 3110 Specimen collection (procedure) (no date) [facility] (missing) (missing) (missing) Result panel 3111 Specimen collection (procedure) (no date) [facility] (missing) (missing) (missing) Result panel 3112 Specimen collection (procedure) (no date) [facility] (missing) (missing) (missing) Result panel 3113 Specimen collection (procedure) (no date) [facility] (missing) (missing) (missing) Result panel 3114 Specimen collection (procedure) (no date) [facility] (missing) (missing) (missing) Result panel 3115 Specimen collection (procedure) (no date) [facility] (missing) (missing) (missing) Result panel 3116 Specimen collection (procedure) (no date) [facility] (missing) (missing) (missing) Result panel 3117 Specimen collection (procedure) (no date) [facility] (missing) (missing) (missing) Result panel 3118 Specimen collection (procedure) (no date) [facility] (missing) (missing) (missing) Result panel 3119 Specimen collection (procedure) (no date) [facility] (missing) (missing) (missing) Result panel 3120 Specimen collection (procedure) (no date) [facility] (missing) (missing) (missing) Result panel 3121 Specimen collection (procedure) (no date) [facility] (missing) (missing) (missing) Result panel 3122 Specimen collection (procedure) (no date) [facility] (missing) (missing) (missing) Result panel 3123 Specimen collection (procedure) (no date) [facility] (missing) (missing) (missing) Result panel 3124 Specimen collection (procedure) (no date) [facility] (missing) (missing) (missing) Result panel 3125 Specimen collection (procedure) (no date) [facility] (missing) (missing) (missing) Result panel 3126 Specimen collection (procedure) (no date) [facility] (missing) (missing) (missing) Result panel 3127 Specimen collection (procedure) (no date) [facility] (missing) (missing) (missing) Result panel 3128 Specimen collection (procedure) (no date) [facility] (missing) (missing) (missing) Result panel 3129 Specimen collection (procedure) (no date) [facility] (missing) (missing) (missing) Result panel 3130 Specimen collection (procedure) (no date) [facility] (missing) (missing) (missing) Result panel 3131 Specimen collection (procedure) (no date) [facility] (missing) (missing) (missing) Result panel 3132 Specimen collection (procedure) (no date) [facility] (missing) (missing) (missing) Result panel 3133 Specimen collection (procedure) (no date) [facility] (missing) (missing) (missing) Result panel 3134 Specimen collection (procedure) (no date) [facility] (missing) (missing) (missing) Result panel 3135 Specimen collection (procedure) (no date) [facility] (missing) (missing) (missing) Result panel 3136 Specimen collection (procedure) (no date) [facility] (missing) (missing) (missing) Result panel 3137 Specimen collection (procedure) (no date) [facility] (missing) (missing) (missing) Result panel 3138 Specimen collection (procedure) (no date) [facility] (missing) (missing) (missing) Result panel 3139 Specimen collection (procedure) (no date) [facility] (missing) (missing) (missing) Result panel 3140 Specimen collection (procedure) (no date) [facility] (missing) (missing) (missing) Result panel 3141 Specimen collection (procedure) (no date) [facility] (missing) (missing) (missing) Result panel 3142 Specimen collection (procedure) (no date) [facility] (missing) (missing) (missing) Result panel 3143 Specimen collection (procedure) (no date) [facility] (missing) (missing) (missing) Result panel 3144 Specimen collection (procedure) (no date) [facility] (missing) (missing) (missing) Result panel 3145 Specimen collection (procedure) (no date) [facility] (missing) (missing) (missing) Result panel 3146 Specimen collection (procedure) (no date) [facility] (missing) (missing) (missing) Result panel 3147 Specimen collection (procedure) (no date) [facility] (missing) (missing) (missing) Result panel 3148 Specimen collection (procedure) (no date) [facility] (missing) (missing) (missing) Result panel 3149 Specimen collection (procedure) (no date) [facility] (missing) (missing) (missing) Result panel 3150 Specimen collection (procedure) (no date) [facility] (missing) (missing) (missing) Result panel 3151 Specimen collection (procedure) (no date) [facility] (missing) (missing) (missing) Result panel 3152 Specimen collection (procedure) (no date) [facility] (missing) (missing) (missing) Result panel 3153 Specimen collection (procedure) (no date) [facility] (missing) (missing) (missing) Result panel 3154 Specimen collection (procedure) (no date) [facility] (missing) (missing) (missing) Result panel 3155 Specimen collection (procedure) (no date) [facility] (missing) (missing) (missing) Result panel 3156 Specimen collection (procedure) (no date) [facility] (missing) (missing) (missing) Result panel 3157 Specimen collection (procedure) (no date) [facility] (missing) (missing) (missing) Result panel 3158 Specimen collection (procedure) (no date) [facility] (missing) (missing) (missing) Result panel 3159 Specimen collection (procedure) (no date) [facility] (missing) (missing) (missing) Result panel 3160 Specimen collection (procedure) (no date) [facility] (missing) (missing) (missing) Result panel 3161 Specimen collection (procedure) (no date) [facility] (missing) (missing) (missing) Result panel 3162 Specimen collection (procedure) (no date) [facility] (missing) (missing) (missing) Result panel 3163 Specimen collection (procedure) (no date) [facility] (missing) (missing) (missing) Result panel 3164 Specimen collection (procedure) (no date) [facility] (missing) (missing) (missing) Result panel 3165 Specimen collection (procedure) (no date) [facility] (missing) (missing) (missing) Result panel 3166 Specimen collection (procedure) (no date) [facility] (missing) (missing) (missing) Result panel 3167 Specimen collection (procedure) (no date) [facility] (missing) (missing) (missing) Result panel 3168 Specimen collection (procedure) (no date) [facility] (missing) (missing) (missing) Result panel 3169 Specimen collection (procedure) (no date) [facility] (missing) (missing) (missing) Result panel 3170 Specimen collection (procedure) (no date) [facility] (missing) (missing) (missing) Result panel 3171 Specimen collection (procedure) (no date) [facility] (missing) (missing) (missing) Result panel 3172 Specimen collection (procedure) (no date) [facility] (missing) (missing) (missing) Result panel 3173 Specimen collection (procedure) (no date) [facility] (missing) (missing) (missing) Result panel 3174 Specimen collection (procedure) (no date) [facility] (missing) (missing) (missing) Result panel 3175 Specimen collection (procedure) (no date) [facility] (missing) (missing) (missing) Result panel 3176 Specimen collection (procedure) (no date) [facility] (missing) (missing) (missing) Result panel 3177 Specimen collection (procedure) (no date) [facility] (missing) (missing) (missing) Result panel 3178 Specimen collection (procedure) (no date) [facility] (missing) (missing) (missing) Result panel 3179 Specimen collection (procedure) (no date) [facility] (missing) (missing) (missing) Result panel 3180 Specimen collection (procedure) (no date) [facility] (missing) (missing) (missing) Result panel 3181 Specimen collection (procedure) (no date) [facility] (missing) (missing) (missing) Result panel 3182 Specimen collection (procedure) (no date) [facility] (missing) (missing) (missing) Result panel 3183 Specimen collection (procedure) (no date) [facility] (missing) (missing) (missing) Result panel 3184 Specimen collection (procedure) (no date) [facility] (missing) (missing) (missing) Result panel 3185 Specimen collection (procedure) (no date) [facility] (missing) (missing) (missing) Result panel 3186 Specimen collection (procedure) (no date) [facility] (missing) (missing) (missing) Result panel 3187 Specimen collection (procedure) (no date) [facility] (missing) (missing) (missing) Result panel 3188 Specimen collection (procedure) (no date) [facility] (missing) (missing) (missing) Result panel 3189 Specimen collection (procedure) (no date) [facility] (missing) (missing) (missing) Result panel 3190 Specimen collection (procedure) (no date) [facility] (missing) (missing) (missing) Result panel 3191 Specimen collection (procedure) (no date) [facility] (missing) (missing) (missing) Result panel 3192 Specimen collection (procedure) (no date) [facility] (missing) (missing) (missing) Result panel 3193 Specimen collection (procedure) (no date) [facility] (missing) (missing) (missing) Result panel 3194 Specimen collection (procedure) (no date) [facility] (missing) (missing) (missing) Result panel 3195 Specimen collection (procedure) (no date) [facility] (missing) (missing) (missing) Result panel 3196 Specimen collection (procedure) (no date) [facility] (missing) (missing) (missing) Result panel 3197 Specimen collection (procedure) (no date) [facility] (missing) (missing) (missing) Result panel 3198 Specimen collection (procedure) (no date) [facility] (missing) (missing) (missing) Result panel 3199 Specimen collection (procedure) (no date) [facility] (missing) (missing) (missing) Result panel 3200 Specimen collection (procedure) (no date) [facility] (missing) (missing) (missing) Result panel 3201 Specimen collection (procedure) (no date) [facility] (missing) (missing) (missing) Result panel 3202 Specimen collection (procedure) (no date) [facility] (missing) (missing) (missing) Result panel 3203 Specimen collection (procedure) (no date) [facility] (missing) (missing) (missing) Result panel 3204 Specimen collection (procedure) (no date) [facility] (missing) (missing) (missing) Result panel 3205 Specimen collection (procedure) (no date) [facility] (missing) (missing) (missing) Result panel 3206 Specimen collection (procedure) (no date) [facility] (missing) (missing) (missing) Result panel 3207 Specimen collection (procedure) (no date) [facility] (missing) (missing) (missing) Result panel 3208 Specimen collection (procedure) (no date) [facility] (missing) (missing) (missing) Result panel 3209 Specimen collection (procedure) (no date) [facility] (missing) (missing) (missing) Result panel 3210 Specimen collection (procedure) (no date) [facility] (missing) (missing) (missing) Result panel 3211 Specimen collection (procedure) (no date) [facility] (missing) (missing) (missing) Result panel 3212 Specimen collection (procedure) (no date) [facility] (missing) (missing) (missing) Result panel 3213 Specimen collection (procedure) (no date) [facility] (missing) (missing) (missing) Result panel 3214 Specimen collection (procedure) (no date) [facility] (missing) (missing) (missing) Result panel 3215 Specimen collection (procedure) (no date) [facility] (missing) (missing) (missing) Result panel 3216 Specimen collection (procedure) (no date) [facility] (missing) (missing) (missing) Result panel 3217 Specimen collection (procedure) (no date) [facility] (missing) (missing) (missing) Result panel 3218 Specimen collection (procedure) (no date) [facility] (missing) (missing) (missing) Result panel 3219 Specimen collection (procedure) (no date) [facility] (missing) (missing) (missing) Result panel 3220 Specimen collection (procedure) (no date) [facility] (missing) (missing) (missing) Result panel 3221 Specimen collection (procedure) (no date) [facility] (missing) (missing) (missing) Result panel 3222 Specimen collection (procedure) (no date) [facility] (missing) (missing) (missing) Result panel 3223 Specimen collection (procedure) (no date) [facility] (missing) (missing) (missing) Result panel 3224 Specimen collection (procedure) (no date) [facility] (missing) (missing) (missing) Result panel 3225 Specimen collection (procedure) (no date) [facility] (missing) (missing) (missing) Result panel 3226 Specimen collection (procedure) (no date) [facility] (missing) (missing) (missing) Result panel 3227 Specimen collection (procedure) (no date) [facility] (missing) (missing) (missing) Result panel 3228 Specimen collection (procedure) (no date) [facility] (missing) (missing) (missing) Result panel 3229 Specimen collection (procedure) (no date) [facility] (missing) (missing) (missing) Result panel 3230 Specimen collection (procedure) (no date) [facility] (missing) (missing) (missing) Result panel 3231 Specimen collection (procedure) (no date) [facility] (missing) (missing) (missing) Result panel 3232 Specimen collection (procedure) (no date) [facility] (missing) (missing) (missing) Result panel 3233 Specimen collection (procedure) (no date) [facility] (missing) (missing) (missing) Result panel 3234 Specimen collection (procedure) (no date) [facility] (missing) (missing) (missing) Result panel 3235 Specimen collection (procedure) (no date) [facility] (missing) (missing) (missing) Result panel 3236 Specimen collection (procedure) (no date) [facility] (missing) (missing) (missing) Result panel 3237 Specimen collection (procedure) (no date) [facility] (missing) (missing) (missing) Result panel 3238 Specimen collection (procedure) (no date) [facility] (missing) (missing) (missing) Result panel 3239 Specimen collection (procedure) (no date) [facility] (missing) (missing) (missing) Result panel 3240 Specimen collection (procedure) (no date) [facility] (missing) (missing) (missing) Result panel 3241 Specimen collection (procedure) (no date) [facility] (missing) (missing) (missing) Result panel 3242 Specimen collection (procedure) (no date) [facility] (missing) (missing) (missing) Result panel 3243 Specimen collection (procedure) (no date) [facility] (missing) (missing) (missing) Result panel 3244 Specimen collection (procedure) (no date) [facility] (missing) (missing) (missing) Result panel 3245 Specimen collection (procedure) (no date) [facility] (missing) (missing) (missing) Result panel 3246 Specimen collection (procedure) (no date) [facility] (missing) (missing) (missing) Result panel 3247 Specimen collection (procedure) (no date) [facility] (missing) (missing) (missing) Result panel 3248 Specimen collection (procedure) (no date) [facility] (missing) (missing) (missing) Result panel 3249 Specimen collection (procedure) (no date) [facility] (missing) (missing) (missing) Result panel 3250 Specimen collection (procedure) (no date) [facility] (missing) (missing) (missing) Result panel 3251 Specimen collection (procedure) (no date) [facility] (missing) (missing) (missing) Result panel 3252 Specimen collection (procedure) (no date) [facility] (missing) (missing) (missing) Result panel 3253 Specimen collection (procedure) (no date) [facility] (missing) (missing) (missing) Result panel 3254 Specimen collection (procedure) (no date) [facility] (missing) (missing) (missing) Result panel 3255 Specimen collection (procedure) (no date) [facility] (missing) (missing) (missing) Result panel 3256 Specimen collection (procedure) (no date) [facility] (missing) (missing) (missing) Result panel 3257 Specimen collection (procedure) (no date) [facility] (missing) (missing) (missing) Result panel 3258 Specimen collection (procedure) (no date) [facility] (missing) (missing) (missing) Result panel 3259 Specimen collection (procedure) (no date) [facility] (missing) (missing) (missing) Result panel 3260 Specimen collection (procedure) (no date) [facility] (missing) (missing) (missing) Result panel 3261 Specimen collection (procedure) (no date) [facility] (missing) (missing) (missing) Result panel 3262 Specimen collection (procedure) (no date) [facility] (missing) (missing) (missing) Result panel 3263 Specimen collection (procedure) (no date) [facility] (missing) (missing) (missing) Result panel 3264 Specimen collection (procedure) (no date) [facility] (missing) (missing) (missing) Result panel 3265 Specimen collection (procedure) (no date) [facility] (missing) (missing) (missing) Result panel 3266 Specimen collection (procedure) (no date) [facility] (missing) (missing) (missing) Result panel 3267 Specimen collection (procedure) (no date) [facility] (missing) (missing) (missing) Result panel 3268 Specimen collection (procedure) (no date) [facility] (missing) (missing) (missing) Result panel 3269 Specimen collection (procedure) (no date) [facility] (missing) (missing) (missing) Result panel 3270 Specimen collection (procedure) (no date) [facility] (missing) (missing) (missing) Result panel 3271 Specimen collection (procedure) (no date) [facility] (missing) (missing) (missing) Result panel 3272 Specimen collection (procedure) (no date) [facility] (missing) (missing) (missing) Result panel 3273 Specimen collection (procedure) (no date) [facility] (missing) (missing) (missing) Result panel 3274 Specimen collection (procedure) (no date) [facility] (missing) (missing) (missing) Result panel 3275 Specimen collection (procedure) (no date) [facility] (missing) (missing) (missing) Result panel 3276 Specimen collection (procedure) (no date) [facility] (missing) (missing) (missing) Result panel 3277 Specimen collection (procedure) (no date) [facility] (missing) (missing) (missing) Result panel 3278 Specimen collection (procedure) (no date) [facility] (missing) (missing) (missing) Result panel 3279 Specimen collection (procedure) (no date) [facility] (missing) (missing) (missing) Result panel 3280 Specimen collection (procedure) (no date) [facility] (missing) (missing) (missing) Result panel 3281 Specimen collection (procedure) (no date) [facility] (missing) (missing) (missing) Result panel 3282 Specimen collection (procedure) (no date) [facility] (missing) (missing) (missing) Result panel 3283 Specimen collection (procedure) (no date) [facility] (missing) (missing) (missing) Result panel 3284 Specimen collection (procedure) (no date) [facility] (missing) (missing) (missing) Result panel 3285 Specimen collection (procedure) (no date) [facility] (missing) (missing) (missing) Result panel 3286 Specimen collection (procedure) (no date) [facility] (missing) (missing) (missing) Result panel 3287 Specimen collection (procedure) (no date) [facility] (missing) (missing) (missing) Result panel 3288 Specimen collection (procedure) (no date) [facility] (missing) (missing) (missing) Result panel 3289 Specimen collection (procedure) (no date) [facility] (missing) (missing) (missing) Result panel 3290 Specimen collection (procedure) (no date) [facility] (missing) (missing) (missing) Result panel 3291 Specimen collection (procedure) (no date) [facility] (missing) (missing) (missing) Result panel 3292 Specimen collection (procedure) (no date) [facility] (missing) (missing) (missing) Result panel 3293 Specimen collection (procedure) (no date) [facility] (missing) (missing) (missing) Result panel 3294 Specimen collection (procedure) (no date) [facility] (missing) (missing) (missing) Result panel 3295 Specimen collection (procedure) (no date) [facility] (missing) (missing) (missing) Result panel 3296 Specimen collection (procedure) (no date) [facility] (missing) (missing) (missing) Result panel 3297 Specimen collection (procedure) (no date) [facility] (missing) (missing) (missing) Result panel 3298 Specimen collection (procedure) (no date) [facility] (missing) (missing) (missing) Result panel 3299 Specimen collection (procedure) (no date) [facility] (missing) (missing) (missing) Result panel 3300 Specimen collection (procedure) (no date) [facility] (missing) (missing) (missing) Result panel 3301 Specimen collection (procedure) (no date) [facility] (missing) (missing) (missing) Result panel 3302 Specimen collection (procedure) (no date) [facility] (missing) (missing) (missing) Result panel 3303 Specimen collection (procedure) (no date) [facility] (missing) (missing) (missing) Result panel 3304 Specimen collection (procedure) (no date) [facility] (missing) (missing) (missing) Result panel 3305 Specimen collection (procedure) (no date) [facility] (missing) (missing) (missing) Result panel 3306 Specimen collection (procedure) (no date) [facility] (missing) (missing) (missing) Result panel 3307 Specimen collection (procedure) (no date) [facility] (missing) (missing) (missing) Result panel 3308 Specimen collection (procedure) (no date) [facility] (missing) (missing) (missing) Result panel 3309 Specimen collection (procedure) (no date) [facility] (missing) (missing) (missing) Result panel 3310 Specimen collection (procedure) (no date) [facility] (missing) (missing) (missing) Result panel 3311 Specimen collection (procedure) (no date) [facility] (missing) (missing) (missing) Result panel 3312 Specimen collection (procedure) (no date) [facility] (missing) (missing) (missing) Result panel 3313 Specimen collection (procedure) (no date) [facility] (missing) (missing) (missing) Result panel 3314 Specimen collection (procedure) (no date) [facility] (missing) (missing) (missing) Result panel 3315 Specimen collection (procedure) (no date) [facility] (missing) (missing) (missing) Result panel 3316 Specimen collection (procedure) (no date) [facility] (missing) (missing) (missing) Result panel 3317 Specimen collection (procedure) (no date) [facility] (missing) (missing) (missing) Result panel 3318 Specimen collection (procedure) (no date) [facility] (missing) (missing) (missing) Result panel 3319 Specimen collection (procedure) (no date) [facility] (missing) (missing) (missing) Result panel 3320 Specimen collection (procedure) (no date) [facility] (missing) (missing) (missing) Result panel 3321 Specimen collection (procedure) (no date) [facility] (missing) (missing) (missing) Result panel 3322 Specimen collection (procedure) (no date) [facility] (missing) (missing) (missing) Result panel 3323 Specimen collection (procedure) (no date) [facility] (missing) (missing) (missing) Result panel 3324 Specimen collection (procedure) (no date) [facility] (missing) (missing) (missing) Result panel 3325 Specimen collection (procedure) (no date) [facility] (missing) (missing) (missing) Result panel 3326 Specimen collection (procedure) (no date) [facility] (missing) (missing) (missing) Result panel 3327 Specimen collection (procedure) (no date) [facility] (missing) (missing) (missing) Result panel 3328 Specimen collection (procedure) (no date) [facility] (missing) (missing) (missing) Result panel 3329 Specimen collection (procedure) (no date) [facility] (missing) (missing) (missing) Result panel 3330 Specimen collection (procedure) (no date) [facility] (missing) (missing) (missing) Result panel 3331 Specimen collection (procedure) (no date) [facility] (missing) (missing) (missing) Result panel 3332 Specimen collection (procedure) (no date) [facility] (missing) (missing) (missing) Result panel 3333 Specimen collection (procedure) (no date) [facility] (missing) (missing) (missing) Result panel 3334 Specimen collection (procedure) (no date) [facility] (missing) (missing) (missing) Result panel 3335 Specimen collection (procedure) (no date) [facility] (missing) (missing) (missing) Result panel 3336 Specimen collection (procedure) (no date) [facility] (missing) (missing) (missing) Result panel 3337 Specimen collection (procedure) (no date) [facility] (missing) (missing) (missing) Result panel 3338 Specimen collection (procedure) (no date) [facility] (missing) (missing) (missing) Result panel 3339 Specimen collection (procedure) (no date) [facility] (missing) (missing) (missing) Result panel 3340 Specimen collection (procedure) (no date) [facility] (missing) (missing) (missing) Result panel 3341 Specimen collection (procedure) (no date) [facility] (missing) (missing) (missing) Result panel 3342 Specimen collection (procedure) (no date) [facility] (missing) (missing) (missing) Result panel 3343 Specimen collection (procedure) (no date) [facility] (missing) (missing) (missing) Result panel 3344 Specimen collection (procedure) (no date) [facility] (missing) (missing) (missing) Result panel 3345 Specimen collection (procedure) (no date) [facility] (missing) (missing) (missing) Result panel 3346 Specimen collection (procedure) (no date) [facility] (missing) (missing) (missing) Result panel 3347 Specimen collection (procedure) (no date) [facility] (missing) (missing) (missing) Result panel 3348 Specimen collection (procedure) (no date) [facility] (missing) (missing) (missing) Result panel 3349 Specimen collection (procedure) (no date) [facility] (missing) (missing) (missing) Result panel 3350 Specimen collection (procedure) (no date) [facility] (missing) (missing) (missing) Result panel 3351 Specimen collection (procedure) (no date) [facility] (missing) (missing) (missing) Result panel 3352 Specimen collection (procedure) (no date) [facility] (missing) (missing) (missing) Result panel 3353 Specimen collection (procedure) (no date) [facility] (missing) (missing) (missing) Result panel 3354 Specimen collection (procedure) (no date) [facility] (missing) (missing) (missing) Result panel 3355 Specimen collection (procedure) (no date) [facility] (missing) (missing) (missing) Result panel 3356 Specimen collection (procedure) (no date) [facility] (missing) (missing) (missing) Result panel 3357 Specimen collection (procedure) (no date) [facility] (missing) (missing) (missing) Result panel 3358 Specimen collection (procedure) (no date) [facility] (missing) (missing) (missing) Result panel 3359 Specimen collection (procedure) (no date) [facility] (missing) (missing) (missing) Result panel 3360 Specimen collection (procedure) (no date) [facility] (missing) (missing) (missing) Result panel 3361 Specimen collection (procedure) (no date) [facility] (missing) (missing) (missing) Result panel 3362 Specimen collection (procedure) (no date) [facility] (missing) (missing) (missing) Result panel 3363 Specimen collection (procedure) (no date) [facility] (missing) (missing) (missing) Result panel 3364 Specimen collection (procedure) (no date) [facility] (missing) (missing) (missing) Result panel 3365 Specimen collection (procedure) (no date) [facility] (missing) (missing) (missing) Result panel 3366 Specimen collection (procedure) (no date) [facility] (missing) (missing) (missing) Result panel 3367 Specimen collection (procedure) (no date) [facility] (missing) (missing) (missing) Result panel 3368 Specimen collection (procedure) (no date) [facility] (missing) (missing) (missing) Result panel 3369 Specimen collection (procedure) (no date) [facility] (missing) (missing) (missing) Result panel 3370 Specimen collection (procedure) (no date) [facility] (missing) (missing) (missing) Result panel 3371 Specimen collection (procedure) (no date) [facility] (missing) (missing) (missing) Result panel 3372 Specimen collection (procedure) (no date) [facility] (missing) (missing) (missing) Result panel 3373 Specimen collection (procedure) (no date) [facility] (missing) (missing) (missing) Result panel 3374 Specimen collection (procedure) (no date) [facility] (missing) (missing) (missing) Result panel 3375 Specimen collection (procedure) (no date) [facility] (missing) (missing) (missing) Result panel 3376 Specimen collection (procedure) (no date) [facility] (missing) (missing) (missing) Result panel 3377 Specimen collection (procedure) (no date) [facility] (missing) (missing) (missing) Result panel 3378 Specimen collection (procedure) (no date) [facility] (missing) (missing) (missing) Result panel 3379 Specimen collection (procedure) (no date) [facility] (missing) (missing) (missing) Result panel 3380 Specimen collection (procedure) (no date) [facility] (missing) (missing) (missing) Result panel 3381 Specimen collection (procedure) (no date) [facility] (missing) (missing) (missing) Result panel 3382 Specimen collection (procedure) (no date) [facility] (missing) (missing) (missing) Result panel 3383 Specimen collection (procedure) (no date) [facility] (missing) (missing) (missing) Result panel 3384 Specimen collection (procedure) (no date) [facility] (missing) (missing) (missing) Result panel 3385 Specimen collection (procedure) (no date) [facility] (missing) (missing) (missing) Result panel 3386 Specimen collection (procedure) (no date) [facility] (missing) (missing) (missing) Result panel 3387 Specimen collection (procedure) (no date) [facility] (missing) (missing) (missing) Result panel 3388 Specimen collection (procedure) (no date) [facility] (missing) (missing) (missing) Result panel 3389 Specimen collection (procedure) (no date) [facility] (missing) (missing) (missing) Result panel 3390 Specimen collection (procedure) (no date) [facility] (missing) (missing) (missing) Result panel 3391 Specimen collection (procedure) (no date) [facility] (missing) (missing) (missing) Result panel 3392 Specimen collection (procedure) (no date) [facility] (missing) (missing) (missing) Result panel 3393 Specimen collection (procedure) (no date) [facility] (missing) (missing) (missing) Result panel 3394 Specimen collection (procedure) (no date) [facility] (missing) (missing) (missing) Result panel 3395 Specimen collection (procedure) (no date) [facility] (missing) (missing) (missing) Result panel 3396 Specimen collection (procedure) (no date) [facility] (missing) (missing) (missing) Result panel 3397 Specimen collection (procedure) (no date) [facility] (missing) (missing) (missing) Result panel 3398 Specimen collection (procedure) (no date) [facility] (missing) (missing) (missing) Result panel 3399 Specimen collection (procedure) (no date) [facility] (missing) (missing) (missing) Result panel 3400 Specimen collection (procedure) (no date) [facility] (missing) (missing) (missing) Result panel 3401 Specimen collection (procedure) (no date) [facility] (missing) (missing) (missing) Result panel 3402 Specimen collection (procedure) (no date) [facility] (missing) (missing) (missing) Result panel 3403 Specimen collection (procedure) (no date) [facility] (missing) (missing) (missing) Result panel 3404 Specimen collection (procedure) (no date) [facility] (missing) (missing) (missing) Result panel 3405 Specimen collection (procedure) (no date) [facility] (missing) (missing) (missing) Result panel 3406 Specimen collection (procedure) (no date) [facility] (missing) (missing) (missing) Result panel 3407 Specimen collection (procedure) (no date) [facility] (missing) (missing) (missing) Result panel 3408 Specimen collection (procedure) (no date) [facility] (missing) (missing) (missing) Result panel 3409 Specimen collection (procedure) (no date) [facility] (missing) (missing) (missing) Result panel 3410 Specimen collection (procedure) (no date) [facility] (missing) (missing) (missing) Result panel 3411 Specimen collection (procedure) (no date) [facility] (missing) (missing) (missing) Result panel 3412 Specimen collection (procedure) (no date) [facility] (missing) (missing) (missing) Result panel 3413 Specimen collection (procedure) (no date) [facility] (missing) (missing) (missing) Result panel 3414 Specimen collection (procedure) (no date) [facility] (missing) (missing) (missing) Result panel 3415 Specimen collection (procedure) (no date) [facility] (missing) (missing) (missing) Result panel 3416 Specimen collection (procedure) (no date) [facility] (missing) (missing) (missing) Result panel 3417 Specimen collection (procedure) (no date) [facility] (missing) (missing) (missing) Result panel 3418 Specimen collection (procedure) (no date) [facility] (missing) (missing) (missing) Result panel 3419 Specimen collection (procedure) (no date) [facility] (missing) (missing) (missing) Result panel 3420 Specimen collection (procedure) (no date) [facility] (missing) (missing) (missing) Result panel 3421 Specimen collection (procedure) (no date) [facility] (missing) (missing) (missing) Result panel 3422 Specimen collection (procedure) (no date) [facility] (missing) (missing) (missing) Result panel 3423 Specimen collection (procedure) (no date) [facility] (missing) (missing) (missing) Result panel 3424 Specimen collection (procedure) (no date) [facility] (missing) (missing) (missing) Result panel 3425 Specimen collection (procedure) (no date) [facility] (missing) (missing) (missing) Result panel 3426 Specimen collection (procedure) (no date) [facility] (missing) (missing) (missing) Result panel 3427 Specimen collection (procedure) (no date) [facility] (missing) (missing) (missing) Result panel 3428 Specimen collection (procedure) (no date) [facility] (missing) (missing) (missing) Result panel 3429 Specimen collection (procedure) (no date) [facility] (missing) (missing) (missing) Result panel 3430 Specimen collection (procedure) (no date) [facility] (missing) (missing) (missing) Result panel 3431 Specimen collection (procedure) (no date) [facility] (missing) (missing) (missing) Result panel 3432 Specimen collection (procedure) (no date) [facility] (missing) (missing) (missing) Result panel 3433 Specimen collection (procedure) (no date) [facility] (missing) (missing) (missing) Result panel 3434 Specimen collection (procedure) (no date) [facility] (missing) (missing) (missing) Result panel 3435 Specimen collection (procedure) (no date) [facility] (missing) (missing) (missing) Result panel 3436 Specimen collection (procedure) (no date) [facility] (missing) (missing) (missing) Result panel 3437 Specimen collection (procedure) (no date) [facility] (missing) (missing) (missing) Result panel 3438 Specimen collection (procedure) (no date) [facility] (missing) (missing) (missing) Result panel 3439 Specimen collection (procedure) (no date) [facility] (missing) (missing) (missing) Result panel 3440 Specimen collection (procedure) (no date) [facility] (missing) (missing) (missing) Result panel 3441 Specimen collection (procedure) (no date) [facility] (missing) (missing) (missing) Result panel 3442 Specimen collection (procedure) (no date) [facility] (missing) (missing) (missing) Result panel 3443 Specimen collection (procedure) (no date) [facility] (missing) (missing) (missing) Result panel 3444 Specimen collection (procedure) (no date) [facility] (missing) (missing) (missing) Result panel 3445 Specimen collection (procedure) (no date) [facility] (missing) (missing) (missing) Result panel 3446 Specimen collection (procedure) (no date) [facility] (missing) (missing) (missing) Result panel 3447 Specimen collection (procedure) (no date) [facility] (missing) (missing) (missing) Result panel 3448 Specimen collection (procedure) (no date) [facility] (missing) (missing) (missing) Result panel 3449 Specimen collection (procedure) (no date) [facility] (missing) (missing) (missing) Result panel 3450 Specimen collection (procedure) (no date) [facility] (missing) (missing) (missing) Result panel 3451 Specimen collection (procedure) (no date) [facility] (missing) (missing) (missing) Result panel 3452 Specimen collection (procedure) (no date) [facility] (missing) (missing) (missing) Result panel 3453 Specimen collection (procedure) (no date) [facility] (missing) (missing) (missing) Result panel 3454 Specimen collection (procedure) (no date) [facility] (missing) (missing) (missing) Result panel 3455 Specimen collection (procedure) (no date) [facility] (missing) (missing) (missing) Result panel 3456 Specimen collection (procedure) (no date) [facility] (missing) (missing) (missing) Result panel 3457 Specimen collection (procedure) (no date) [facility] (missing) (missing) (missing) Result panel 3458 Specimen collection (procedure) (no date) [facility] (missing) (missing) (missing) Result panel 3459 Specimen collection (procedure) (no date) [facility] (missing) (missing) (missing) Result panel 3460 Specimen collection (procedure) (no date) [facility] (missing) (missing) (missing) Result panel 3461 Specimen collection (procedure) (no date) [facility] (missing) (missing) (missing) Result panel 3462 Specimen collection (procedure) (no date) [facility] (missing) (missing) (missing) Result panel 3463 Specimen collection (procedure) (no date) [facility] (missing) (missing) (missing) Result panel 3464 Specimen collection (procedure) (no date) [facility] (missing) (missing) (missing) Result panel 3465 Specimen collection (procedure) (no date) [facility] (missing) (missing) (missing) Result panel 3466 Specimen collection (procedure) (no date) [facility] (missing) (missing) (missing) Result panel 3467 Specimen collection (procedure) (no date) [facility] (missing) (missing) (missing) Result panel 3468 Specimen collection (procedure) (no date) [facility] (missing) (missing) (missing) Result panel 3469 Specimen collection (procedure) (no date) [facility] (missing) (missing) (missing) Result panel 3470 Specimen collection (procedure) (no date) [facility] (missing) (missing) (missing) Result panel 3471 Specimen collection (procedure) (no date) [facility] (missing) (missing) (missing) Result panel 3472 Specimen collection (procedure) (no date) [facility] (missing) (missing) (missing) Result panel 3473 Specimen collection (procedure) (no date) [facility] (missing) (missing) (missing) Result panel 3474 Specimen collection (procedure) (no date) [facility] (missing) (missing) (missing) Result panel 3475 Specimen collection (procedure) (no date) [facility] (missing) (missing) (missing) Result panel 3476 Specimen collection (procedure) (no date) [facility] (missing) (missing) (missing) Result panel 3477 Specimen collection (procedure) (no date) [facility] (missing) (missing) (missing) Result panel 3478 Specimen collection (procedure) (no date) [facility] (missing) (missing) (missing) Result panel 3479 Specimen collection (procedure) (no date) [facility] (missing) (missing) (missing) Result panel 3480 Specimen collection (procedure) (no date) [facility] (missing) (missing) (missing) Result panel 3481 Specimen collection (procedure) (no date) [facility] (missing) (missing) (missing) Result panel 3482 Specimen collection (procedure) (no date) [facility] (missing) (missing) (missing) Result panel 3483 Specimen collection (procedure) (no date) [facility] (missing) (missing) (missing) Result panel 3484 Specimen collection (procedure) (no date) [facility] (missing) (missing) (missing) Result panel 3485 Specimen collection (procedure) (no date) [facility] (missing) (missing) (missing) Result panel 3486 Specimen collection (procedure) (no date) [facility] (missing) (missing) (missing) Result panel 3487 Specimen collection (procedure) (no date) [facility] (missing) (missing) (missing) Result panel 3488 Specimen collection (procedure) (no date) [facility] (missing) (missing) (missing) Result panel 3489 Specimen collection (procedure) (no date) [facility] (missing) (missing) (missing) Result panel 3490 Specimen collection (procedure) (no date) [facility] (missing) (missing) (missing) Result panel 3491 Specimen collection (procedure) (no date) [facility] (missing) (missing) (missing) Result panel 3492 Specimen collection (procedure) (no date) [facility] (missing) (missing) (missing) Result panel 3493 Specimen collection (procedure) (no date) [facility] (missing) (missing) (missing) Result panel 3494 Specimen collection (procedure) (no date) [facility] (missing) (missing) (missing) Result panel 3495 Specimen collection (procedure) (no date) [facility] (missing) (missing) (missing) Result panel 3496 Specimen collection (procedure) (no date) [facility] (missing) (missing) (missing) Result panel 3497 Specimen collection (procedure) (no date) [facility] (missing) (missing) (missing) Result panel 3498 Specimen collection (procedure) (no date) [facility] (missing) (missing) (missing) Result panel 3499 Specimen collection (procedure) (no date) [facility] (missing) (missing) (missing) Result panel 3500 Specimen collection (procedure) (no date) [facility] (missing) (missing) (missing) Result panel 3501 Specimen collection (procedure) (no date) [facility] (missing) (missing) (missing) Result panel 3502 Specimen collection (procedure) (no date) [facility] (missing) (missing) (missing) Result panel 3503 Specimen collection (procedure) (no date) [facility] (missing) (missing) (missing) Result panel 3504 Specimen collection (procedure) (no date) [facility] (missing) (missing) (missing) Result panel 3505 Specimen collection (procedure) (no date) [facility] (missing) (missing) (missing) Result panel 3506 Specimen collection (procedure) (no date) [facility] (missing) (missing) (missing) Result panel 3507 Specimen collection (procedure) (no date) [facility] (missing) (missing) (missing) Result panel 3508 Specimen collection (procedure) (no date) [facility] (missing) (missing) (missing) Result panel 3509 Specimen collection (procedure) (no date) [facility] (missing) (missing) (missing) Result panel 3510 Specimen collection (procedure) (no date) [facility] (missing) (missing) (missing) Result panel 3511 Specimen collection (procedure) (no date) [facility] (missing) (missing) (missing) Result panel 3512 Specimen collection (procedure) (no date) [facility] (missing) (missing) (missing) Result panel 3513 Specimen collection (procedure) (no date) [facility] (missing) (missing) (missing) Result panel 3514 Specimen collection (procedure) (no date) [facility] (missing) (missing) (missing) Result panel 3515 Specimen collection (procedure) (no date) [facility] (missing) (missing) (missing) Result panel 3516 Specimen collection (procedure) (no date) [facility] (missing) (missing) (missing) Result panel 3517 Specimen collection (procedure) (no date) [facility] (missing) (missing) (missing) Result panel 3518 Specimen collection (procedure) (no date) [facility] (missing) (missing) (missing) Result panel 3519 Specimen collection (procedure) (no date) [facility] (missing) (missing) (missing) Result panel 3520 Specimen collection (procedure) (no date) [facility] (missing) (missing) (missing) Result panel 3521 Specimen collection (procedure) (no date) [facility] (missing) (missing) (missing) Result panel 3522 Specimen collection (procedure) (no date) [facility] (missing) (missing) (missing) Result panel 3523 Specimen collection (procedure) (no date) [facility] (missing) (missing) (missing) Result panel 3524 Specimen collection (procedure) (no date) [facility] (missing) (missing) (missing) Result panel 3525 Specimen collection (procedure) (no date) [facility] (missing) (missing) (missing) Result panel 3526 Specimen collection (procedure) (no date) [facility] (missing) (missing) (missing) Result panel 3527 Specimen collection (procedure) (no date) [facility] (missing) (missing) (missing) Result panel 3528 Specimen collection (procedure) (no date) [facility] (missing) (missing) (missing) Result panel 3529 Specimen collection (procedure) (no date) [facility] (missing) (missing) (missing) Result panel 3530 Specimen collection (procedure) (no date) [facility] (missing) (missing) (missing) Result panel 3531 Specimen collection (procedure) (no date) [facility] (missing) (missing) (missing) Result panel 3532 Specimen collection (procedure) (no date) [facility] (missing) (missing) (missing) Result panel 3533 Specimen collection (procedure) (no date) [facility] (missing) (missing) (missing) Result panel 3534 Specimen collection (procedure) (no date) [facility] (missing) (missing) (missing) Result panel 3535 Specimen collection (procedure) (no date) [facility] (missing) (missing) (missing) Result panel 3536 Specimen collection (procedure) (no date) [facility] (missing) (missing) (missing) Result panel 3537 Specimen collection (procedure) (no date) [facility] (missing) (missing) (missing) Result panel 3538 Specimen collection (procedure) (no date) [facility] (missing) (missing) (missing) Result panel 3539 Specimen collection (procedure) (no date) [facility] (missing) (missing) (missing) Result panel 3540 Specimen collection (procedure) (no date) [facility] (missing) (missing) (missing) Result panel 3541 Specimen collection (procedure) (no date) [facility] (missing) (missing) (missing) Result panel 3542 Specimen collection (procedure) (no date) [facility] (missing) (missing) (missing) Result panel 3543 Specimen collection (procedure) (no date) [facility] (missing) (missing) (missing) Result panel 3544 Specimen collection (procedure) (no date) [facility] (missing) (missing) (missing) Result panel 3545 Specimen collection (procedure) (no date) [facility] (missing) (missing) (missing) Result panel 3546 Specimen collection (procedure) (no date) [facility] (missing) (missing) (missing) Result panel 3547 Specimen collection (procedure) (no date) [facility] (missing) (missing) (missing) Result panel 3548 Specimen collection (procedure) (no date) [facility] (missing) (missing) (missing) Result panel 3549 Specimen collection (procedure) (no date) [facility] (missing) (missing) (missing) Result panel 3550 Specimen collection (procedure) (no date) [facility] (missing) (missing) (missing) Result panel 3551 Specimen collection (procedure) (no date) [facility] (missing) (missing) (missing) Result panel 3552 Specimen collection (procedure) (no date) [facility] (missing) (missing) (missing) Result panel 3553 Specimen collection (procedure) (no date) [facility] (missing) (missing) (missing) Result panel 3554 Specimen collection (procedure) (no date) [facility] (missing) (missing) (missing) Result panel 3555 Specimen collection (procedure) (no date) [facility] (missing) (missing) (missing) Result panel 3556 Specimen collection (procedure) (no date) [facility] (missing) (missing) (missing) Result panel 3557 Specimen collection (procedure) (no date) [facility] (missing) (missing) (missing) Result panel 3558 Specimen collection (procedure) (no date) [facility] (missing) (missing) (missing) Result panel 3559 Specimen collection (procedure) (no date) [facility] (missing) (missing) (missing) Result panel 3560 Specimen collection (procedure) (no date) [facility] (missing) (missing) (missing) Result panel 3561 Specimen collection (procedure) (no date) [facility] (missing) (missing) (missing) Result panel 3562 Specimen collection (procedure) (no date) [facility] (missing) (missing) (missing) Result panel 3563 Specimen collection (procedure) (no date) [facility] (missing) (missing) (missing) Result panel 3564 Specimen collection (procedure) (no date) [facility] (missing) (missing) (missing) Result panel 3565 Specimen collection (procedure) (no date) [facility] (missing) (missing) (missing) Result panel 3566 Specimen collection (procedure) (no date) [facility] (missing) (missing) (missing) Result panel 3567 Specimen collection (procedure) (no date) [facility] (missing) (missing) (missing) Result panel 3568 Specimen collection (procedure) (no date) [facility] (missing) (missing) (missing) Result panel 3569 Specimen collection (procedure) (no date) [facility] (missing) (missing) (missing) Result panel 3570 Specimen collection (procedure) (no date) [facility] (missing) (missing) (missing) Result panel 3571 Specimen collection (procedure) (no date) [facility] (missing) (missing) (missing) Result panel 3572 Specimen collection (procedure) (no date) [facility] (missing) (missing) (missing) Result panel 3573 Specimen collection (procedure) (no date) [facility] (missing) (missing) (missing) Result panel 3574 Specimen collection (procedure) (no date) [facility] (missing) (missing) (missing) Result panel 3575 Specimen collection (procedure) (no date) [facility] (missing) (missing) (missing) Result panel 3576 Specimen collection (procedure) (no date) [facility] (missing) (missing) (missing) Result panel 3577 Specimen collection (procedure) (no date) [facility] (missing) (missing) (missing) Result panel 3578 Specimen collection (procedure) (no date) [facility] (missing) (missing) (missing) Result panel 3579 Specimen collection (procedure) (no date) [facility] (missing) (missing) (missing) Result panel 3580 Specimen collection (procedure) (no date) [facility] (missing) (missing) (missing) Result panel 3581 Specimen collection (procedure) (no date) [facility] (missing) (missing) (missing) Result panel 3582 Specimen collection (procedure) (no date) [facility] (missing) (missing) (missing) Result panel 3583 Specimen collection (procedure) (no date) [facility] (missing) (missing) (missing) Result panel 3584 Specimen collection (procedure) (no date) [facility] (missing) (missing) (missing) Result panel 3585 Specimen collection (procedure) (no date) [facility] (missing) (missing) (missing) Result panel 3586 Specimen collection (procedure) (no date) [facility] (missing) (missing) (missing) Result panel 3587 Specimen collection (procedure) (no date) [facility] (missing) (missing) (missing) Result panel 3588 Specimen collection (procedure) (no date) [facility] (missing) (missing) (missing) Result panel 3589 Specimen collection (procedure) (no date) [facility] (missing) (missing) (missing) Result panel 3590 Specimen collection (procedure) (no date) [facility] (missing) (missing) (missing) Result panel 3591 Specimen collection (procedure) (no date) [facility] (missing) (missing) (missing) Result panel 3592 Specimen collection (procedure) (no date) [facility] (missing) (missing) (missing) Result panel 3593 Specimen collection (procedure) (no date) [facility] (missing) (missing) (missing) Result panel 3594 Specimen collection (procedure) (no date) [facility] (missing) (missing) (missing) Result panel 3595 Specimen collection (procedure) (no date) [facility] (missing) (missing) (missing) Result panel 3596 Specimen collection (procedure) (no date) [facility] [facility] ([facility] (missing) Result panel 3597 Specimen collection (procedure) (no date) [facility] (missing) (missing) (missing) Result panel 3598 Specimen collection (procedure) (no date) [facility] (missing) (missing) (missing) Result panel 3599 Specimen collection (procedure) (no date) [facility] (missing) (missing) (missing) Result panel 3600 Specimen collection (procedure) (no date) [facility] (missing) (missing) (missing) Result panel 3601 Specimen collection (procedure) (no date) [facility] (missing) (missing) (missing) Result panel 3602 Specimen collection (procedure) (no date) [facility] (missing) (missing) (missing) Result panel 3603 Specimen collection (procedure) (no date) [facility] (missing) (missing) (missing) Result panel 3604 Specimen collection (procedure) (no date) [facility] (missing) (missing) (missing) Result panel 3605 Specimen collection (procedure) (no date) [facility] (missing) (missing) (missing) Result panel 3606 Specimen collection (procedure) (no date) [facility] (missing) (missing) (missing) Result panel 3607 Specimen collection (procedure) (no date) [facility] (missing) (missing) (missing) Result panel 3608 Specimen collection (procedure) (no date) [facility] (missing) (missing) (missing) Result panel 3609 Specimen collection (procedure) (no date) [facility] (missing) (missing) (missing) Result panel 3610 Specimen collection (procedure) (no date) [facility] (missing) (missing) (missing) Result panel 3611 Specimen collection (procedure) (no date) [facility] (missing) (missing) (missing) Result panel 3612 Specimen collection (procedure) (no date) [facility] (missing) (missing) (missing) Result panel 3613 Specimen collection (procedure) (no date) [facility] (missing) (missing) (missing) Result panel 3614 Specimen collection (procedure) (no date) [facility] (missing) (missing) (missing) Result panel 3615 Specimen collection (procedure) (no date) [facility] (missing) (missing) (missing) Result panel 3616 Specimen collection (procedure) (no date) [facility] (missing) (missing) (missing) Result panel 3617 Specimen collection (procedure) (no date) [facility] (missing) (missing) (missing) Result panel 3618 Specimen collection (procedure) (no date) [facility] (missing) (missing) (missing) Result panel 3619 Specimen collection (procedure) (no date) [facility] (missing) (missing) (missing) Result panel 3620 Specimen collection (procedure) (no date) [facility] (missing) (missing) (missing) Result panel 3621 Specimen collection (procedure) (no date) [facility] (missing) (missing) (missing) Result panel 3622 Specimen collection (procedure) (no date) [facility] (missing) (missing) (missing) Result panel 3623 Specimen collection (procedure) (no date) [facility] (missing) (missing) (missing) Result panel 3624 Specimen collection (procedure) (no date) [facility] (missing) (missing) (missing) Result panel 3625 Specimen collection (procedure) (no date) [facility] (missing) (missing) (missing) Result panel 3626 Specimen collection (procedure) (no date) [facility] (missing) (missing) (missing) Result panel 3627 Specimen collection (procedure) (no date) [facility] (missing) (missing) (missing) Result panel 3628 Specimen collection (procedure) (no date) [facility] (missing) (missing) (missing) Result panel 3629 Specimen collection (procedure) (no date) [facility] (missing) (missing) (missing) Result panel 3630 Specimen collection (procedure) (no date) [facility] (missing) (missing) (missing) Result panel 3631 Specimen collection (procedure) (no date) [facility] (missing) (missing) (missing) Result panel 3632 Specimen collection (procedure) (no date) [facility] (missing) (missing) (missing) Result panel 3633 Specimen collection (procedure) (no date) [facility] (missing) (missing) (missing) Result panel 3634 Specimen collection (procedure) (no date) [facility] (missing) (missing) (missing) Result panel 3635 Specimen collection (procedure) (no date) [facility] (missing) (missing) (missing) Result panel 3636 Specimen collection (procedure) (no date) [facility] (missing) (missing) (missing) Result panel 3637 Specimen collection (procedure) (no date) [facility] (missing) (missing) (missing) Result panel 3638 Specimen collection (procedure) (no date) [facility] (missing) (missing) (missing) Result panel 3639 Specimen collection (procedure) (no date) [facility] (missing) (missing) (missing) Result panel 3640 Specimen collection (procedure) (no date) [facility] (missing) (missing) (missing) Result panel 3641 Specimen collection (procedure) (no date) [facility] (missing) (missing) (missing) Result panel 3642 Specimen collection (procedure) (no date) [facility] (missing) (missing) (missing) Result panel 3643 Specimen collection (procedure) (no date) [facility] (missing) (missing) (missing) Result panel 3644 Specimen collection (procedure) (no date) [facility] (missing) (missing) (missing) Result panel 3645 Specimen collection (procedure) (no date) [facility] (missing) (missing) (missing) Result panel 3646 Specimen collection (procedure) (no date) [facility] (missing) (missing) (missing) Result panel 3647 Specimen collection (procedure) (no date) [facility] (missing) (missing) (missing) Result panel 3648 Specimen collection (procedure) (no date) [facility] (missing) (missing) (missing) Result panel 3649 Specimen collection (procedure) (no date) [facility] (missing) (missing) (missing) Result panel 3650 Specimen collection (procedure) (no date) [facility] (missing) (missing) (missing) Result panel 3651 Specimen collection (procedure) (no date) [facility] (missing) (missing) (missing) Result panel 3652 Specimen collection (procedure) (no date) [facility] (missing) (missing) (missing) Result panel 3653 Specimen collection (procedure) (no date) [facility] (missing) (missing) (missing) Result panel 3654 Specimen collection (procedure) (no date) [facility] (missing) (missing) (missing) Result panel 3655 Specimen collection (procedure) (no date) [facility] (missing) (missing) (missing) Result panel 3656 Specimen collection (procedure) (no date) [facility] (missing) (missing) (missing) Result panel 3657 Specimen collection (procedure) (no date) [facility] (missing) (missing) (missing) Result panel 3658 Specimen collection (procedure) (no date) [facility] (missing) (missing) (missing) Result panel 3659 Specimen collection (procedure) (no date) [facility] (missing) (missing) (missing) Result panel 3660 Specimen collection (procedure) (no date) [facility] (missing) (missing) (missing) Result panel 3661 Specimen collection (procedure) (no date) [facility] (missing) (missing) (missing) Result panel 3662 Specimen collection (procedure) (no date) [facility] (missing) (missing) (missing) Result panel 3663 Specimen collection (procedure) (no date) [facility] (missing) (missing) (missing) Result panel 3664 Specimen collection (procedure) (no date) [facility] (missing) (missing) (missing) Result panel 3665 Specimen collection (procedure) (no date) [facility] (missing) (missing) (missing) Result panel 3666 Specimen collection (procedure) (no date) [facility] (missing) (missing) (missing) Result panel 3667 Specimen collection (procedure) (no date) [facility] (missing) (missing) (missing) Result panel 3668 Specimen collection (procedure) (no date) [facility] (missing) (missing) (missing) Result panel 3669 Specimen collection (procedure) (no date) [facility] (missing) (missing) (missing) Result panel 3670 Specimen collection (procedure) (no date) [facility] (missing) (missing) (missing) Result panel 3671 Specimen collection (procedure) (no date) [facility] (missing) (missing) (missing) Result panel 3672 Specimen collection (procedure) (no date) [facility] (missing) (missing) (missing) Result panel 3673 Specimen collection (procedure) (no date) [facility] (missing) (missing) (missing) Result panel 3674 Specimen collection (procedure) (no date) [facility] (missing) (missing) (missing) Result panel 3675 Specimen collection (procedure) (no date) [facility] (missing) (missing) (missing) Result panel 3676 Specimen collection (procedure) (no date) [facility] (missing) (missing) (missing) Result panel 3677 Specimen collection (procedure) (no date) [facility] (missing) (missing) (missing) Result panel 3678 Specimen collection (procedure) (no date) [facility] (missing) (missing) (missing) Result panel 3679 Specimen collection (procedure) (no date) [facility] (missing) (missing) (missing) Result panel 3680 Specimen collection (procedure) (no date) [facility] (missing) (missing) (missing) Result panel 3681 Specimen collection (procedure) (no date) [facility] (missing) (missing) (missing) Result panel 3682 Specimen collection (procedure) (no date) [facility] (missing) (missing) (missing) Result panel 3683 Specimen collection (procedure) (no date) [facility] (missing) (missing) (missing) Result panel 3684 Specimen collection (procedure) (no date) [facility] (missing) (missing) (missing) Result panel 3685 Specimen collection (procedure) (no date) [facility] (missing) (missing) (missing) Result panel 3686 Specimen collection (procedure) (no date) [facility] (missing) (missing) (missing) Result panel 3687 Specimen collection (procedure) (no date) [facility] (missing) (missing) (missing) Result panel 3688 Specimen collection (procedure) (no date) [facility] (missing) (missing) (missing) Result panel 3689 Specimen collection (procedure) (no date) [facility] (missing) (missing) (missing) Result panel 3690 Specimen collection (procedure) (no date) [facility] (missing) (missing) (missing) Result panel 3691 Specimen collection (procedure) (no date) [facility] (missing) (missing) (missing) Result panel 3692 Specimen collection (procedure) (no date) [facility] (missing) (missing) (missing) Result panel 3693 Specimen collection (procedure) (no date) [facility] (missing) (missing) (missing) Result panel 3694 Specimen collection (procedure) (no date) [facility] (missing) (missing) (missing) Result panel 3695 Specimen collection (procedure) (no date) [facility] (missing) (missing) (missing) Result panel 3696 Specimen collection (procedure) (no date) [facility] (missing) (missing) (missing) Result panel 3697 Specimen collection (procedure) (no date) [facility] (missing) (missing) (missing) Result panel 3698 Specimen collection (procedure) (no date) [facility] (missing) (missing) (missing) Result panel 3699 Specimen collection (procedure) (no date) [facility] (missing) (missing) (missing) Result panel 3700 Specimen collection (procedure) (no date) [facility] (missing) (missing) (missing) Result panel 3701 Specimen collection (procedure) (no date) [facility] (missing) (missing) (missing) Result panel 3702 Specimen collection (procedure) (no date) [facility] (missing) (missing) (missing) Result panel 3703 Specimen collection (procedure) (no date) [facility] (missing) (missing) (missing) Result panel 3704 Specimen collection (procedure) (no date) [facility] (missing) (missing) (missing) Result panel 3705 Specimen collection (procedure) (no date) [facility] (missing) (missing) (missing) Result panel 3706 Specimen collection (procedure) (no date) [facility] (missing) (missing) (missing) Result panel 3707 Specimen collection (procedure) (no date) [facility] (missing) (missing) (missing) Result panel 3708 Specimen collection (procedure) (no date) [facility] (missing) (missing) (missing) Result panel 3709 Specimen collection (procedure) (no date) [facility] (missing) (missing) (missing) Result panel 3710 Specimen collection (procedure) (no date) [facility] (missing) (missing) (missing) Result panel 3711 Specimen collection (procedure) (no date) [facility] (missing) (missing) (missing) Result panel 3712 Specimen collection (procedure) (no date) [facility] (missing) (missing) (missing) Result panel 3713 Specimen collection (procedure) (no date) [facility] (missing) (missing) (missing) Result panel 3714 Specimen collection (procedure) (no date) [facility] (missing) (missing) (missing) Result panel 3715 Specimen collection (procedure) (no date) [facility] (missing) (missing) (missing) Result panel 3716 Specimen collection (procedure) (no date) [facility] (missing) (missing) (missing) Result panel 3717 Specimen collection (procedure) (no date) [facility] (missing) (missing) (missing) Result panel 3718 Specimen collection (procedure) (no date) [facility] (missing) (missing) (missing) Result panel 3719 Specimen collection (procedure) (no date) [facility] (missing) (missing) (missing) Result panel 3720 Specimen collection (procedure) (no date) [facility] (missing) (missing) (missing) Result panel 3721 Specimen collection (procedure) (no date) [facility] (missing) (missing) (missing) Result panel 3722 Specimen collection (procedure) (no date) [facility] (missing) (missing) (missing) Result panel 3723 Specimen collection (procedure) (no date) [facility] (missing) (missing) (missing) Result panel 3724 Specimen collection (procedure) (no date) [facility] (missing) (missing) (missing) Result panel 3725 Specimen collection (procedure) (no date) [facility] (missing) (missing) (missing) Result panel 3726 Specimen collection (procedure) (no date) [facility] (missing) (missing) (missing) Result panel 3727 Specimen collection (procedure) (no date) [facility] (missing) (missing) (missing) Result panel 3728 Specimen collection (procedure) (no date) [facility] (missing) (missing) (missing) Result panel 3729 Specimen collection (procedure) (no date) [facility] (missing) (missing) (missing) Result panel 3730 Specimen collection (procedure) (no date) [facility] (missing) (missing) (missing) Result panel 3731 Specimen collection (procedure) (no date) [facility] (missing) (missing) (missing) Result panel 3732 Specimen collection (procedure) (no date) [facility] (missing) (missing) (missing) Result panel 3733 Specimen collection (procedure) (no date) [facility] (missing) (missing) (missing) Result panel 3734 Specimen collection (procedure) (no date) [facility] (missing) (missing) (missing) Result panel 3735 Specimen collection (procedure) (no date) [facility] (missing) (missing) (missing) Result panel 3736 Specimen collection (procedure) (no date) [facility] (missing) (missing) (missing) Result panel 3737 Specimen collection (procedure) (no date) [facility] (missing) (missing) (missing) Result panel 3738 Specimen collection (procedure) (no date) [facility] (missing) (missing) (missing) Result panel 3739 Specimen collection (procedure) (no date) [facility] (missing) (missing) (missing) Result panel 3740 Specimen collection (procedure) (no date) [facility] (missing) (missing) (missing) Result panel 3741 Specimen collection (procedure) (no date) [facility] (missing) (missing) (missing) Result panel 3742 Specimen collection (procedure) (no date) [facility] (missing) (missing) (missing) Result panel 3743 Specimen collection (procedure) (no date) [facility] (missing) (missing) (missing) Result panel 3744 Specimen collection (procedure) (no date) [facility] (missing) (missing) (missing) Result panel 3745 Specimen collection (procedure) (no date) [facility] (missing) (missing) (missing) Result panel 3746 Specimen collection (procedure) (no date) [facility] (missing) (missing) (missing) Result panel 3747 Specimen collection (procedure) (no date) [facility] (missing) (missing) (missing) Result panel 3748 Specimen collection (procedure) (no date) [facility] (missing) (missing) (missing) Result panel 3749 Specimen collection (procedure) (no date) [facility] (missing) (missing) (missing) Result panel 3750 Specimen collection (procedure) (no date) [facility] (missing) (missing) (missing) Result panel 3751 Specimen collection (procedure) (no date) [facility] (missing) (missing) (missing) Result panel 3752 Specimen collection (procedure) (no date) [facility] (missing) (missing) (missing) Result panel 3753 Specimen collection (procedure) (no date) [facility] (missing) (missing) (missing) Result panel 3754 Specimen collection (procedure) (no date) [facility] (missing) (missing) (missing) Result panel 3755 Specimen collection (procedure) (no date) [facility] (missing) (missing) (missing) Result panel 3756 Specimen collection (procedure) (no date) [facility] (missing) (missing) (missing) Result panel 3757 Specimen collection (procedure) (no date) [facility] (missing) (missing) (missing) Result panel 3758 Specimen collection (procedure) (no date) [facility] (missing) (missing) (missing) Result panel 3759 Specimen collection (procedure) (no date) [facility] (missing) (missing) (missing) Result panel 3760 Specimen collection (procedure) (no date) [facility] (missing) (missing) (missing) Result panel 3761 Specimen collection (procedure) (no date) [facility] (missing) (missing) (missing) Result panel 3762 Specimen collection (procedure) (no date) [facility] (missing) (missing) (missing) Result panel 3763 Specimen collection (procedure) (no date) [facility] (missing) (missing) (missing) Result panel 3764 Specimen collection (procedure) (no date) [facility] (missing) (missing) (missing) Result panel 3765 Specimen collection (procedure) (no date) [facility] (missing) (missing) (missing) Result panel 3766 Specimen collection (procedure) (no date) [facility] (missing) (missing) (missing) Result panel 3767 Specimen collection (procedure) (no date) [facility] (missing) (missing) (missing) Result panel 3768 Specimen collection (procedure) (no date) [facility] (missing) (missing) (missing) Result panel 3769 Specimen collection (procedure) (no date) [facility] (missing) (missing) (missing) Result panel 3770 Specimen collection (procedure) (no date) [facility] (missing) (missing) (missing) Result panel 3771 Specimen collection (procedure) (no date) [facility] (missing) (missing) (missing) Result panel 3772 Specimen collection (procedure) (no date) [facility] (missing) (missing) (missing) Result panel 3773 Specimen collection (procedure) (no date) [facility] (missing) (missing) (missing) Result panel 3774 Specimen collection (procedure) (no date) [facility] (missing) (missing) (missing) Result panel 3775 Specimen collection (procedure) (no date) [facility] (missing) (missing) (missing) Result panel 3776 Specimen collection (procedure) (no date) [facility] (missing) (missing) (missing) Result panel 3777 Specimen collection (procedure) (no date) [facility] (missing) (missing) (missing) Result panel 3778 Specimen collection (procedure) (no date) [facility] (missing) (missing) (missing) Result panel 3779 Specimen collection (procedure) (no date) [facility] (missing) (missing) (missing) Result panel 3780 Specimen collection (procedure) (no date) [facility] (missing) (missing) (missing) Result panel 3781 Specimen collection (procedure) (no date) [facility] (missing) (missing) (missing) Result panel 3782 Specimen collection (procedure) (no date) [facility] (missing) (missing) (missing) Result panel 3783 Specimen collection (procedure) (no date) [facility] (missing) (missing) (missing) Result panel 3784 Specimen collection (procedure) (no date) [facility] (missing) (missing) (missing) Result panel 3785 Specimen collection (procedure) (no date) [facility] (missing) (missing) (missing) Result panel 3786 Specimen collection (procedure) (no date) [facility] (missing) (missing) (missing) Result panel 3787 Specimen collection (procedure) (no date) [facility] (missing) (missing) (missing) Result panel 3788 Specimen collection (procedure) (no date) [facility] (missing) (missing) (missing) Result panel 3789 Specimen collection (procedure) (no date) [facility] (missing) (missing) (missing) Result panel 3790 Specimen collection (procedure) (no date) [facility] (missing) (missing) (missing) Result panel 3791 Specimen collection (procedure) (no date) [facility] (missing) (missing) (missing) Result panel 3792 Specimen collection (procedure) (no date) [facility] (missing) (missing) (missing) Result panel 3793 Specimen collection (procedure) (no date) [facility] (missing) (missing) (missing) Result panel 3794 Specimen collection (procedure) (no date) [facility] (missing) (missing) (missing) Result panel 3795 Specimen collection (procedure) (no date) [facility] (missing) (missing) (missing) Result panel 3796 Specimen collection (procedure) (no date) [facility] (missing) (missing) (missing) Result panel 3797 Specimen collection (procedure) (no date) [facility] (missing) (missing) (missing) Result panel 3798 Specimen collection (procedure) (no date) [facility] (missing) (missing) (missing) Result panel 3799 Specimen collection (procedure) (no date) [facility] (missing) (missing) (missing) Result panel 3800 Specimen collection (procedure) (no date) [facility] (missing) (missing) (missing) Result panel 3801 Specimen collection (procedure) (no date) [facility] (missing) (missing) (missing) Result panel 3802 Specimen collection (procedure) (no date) [facility] (missing) (missing) (missing) Result panel 3803 Specimen collection (procedure) (no date) [facility] (missing) (missing) (missing) Result panel 3804 Specimen collection (procedure) (no date) [facility] (missing) (missing) (missing) Result panel 3805 Specimen collection (procedure) (no date) [facility] (missing) (missing) (missing) Result panel 3806 Specimen collection (procedure) (no date) [facility] (missing) (missing) (missing) Result panel 3807 Specimen collection (procedure) (no date) [facility] (missing) (missing) (missing) Result panel 3808 Specimen collection (procedure) (no date) [facility] (missing) (missing) (missing) Result panel 3809 Specimen collection (procedure) (no date) [facility] (missing) (missing) (missing) Result panel 3810 Specimen collection (procedure) (no date) [facility] (missing) (missing) (missing) Result panel 3811 Specimen collection (procedure) (no date) [facility] (missing) (missing) (missing) Result panel 3812 Specimen collection (procedure) (no date) [facility] (missing) (missing) (missing) Result panel 3813 Specimen collection (procedure) (no date) [facility] (missing) (missing) (missing) Result panel 3814 Specimen collection (procedure) (no date) [facility] (missing) (missing) (missing) Result panel 3815 Specimen collection (procedure) (no date) [facility] (missing) (missing) (missing) Result panel 3816 Specimen collection (procedure) (no date) [facility] (missing) (missing) (missing) Result panel 3817 Specimen collection (procedure) (no date) [facility] (missing) (missing) (missing) Result panel 3818 Specimen collection (procedure) (no date) [facility] (missing) (missing) (missing) Result panel 3819 Specimen collection (procedure) (no date) [facility] (missing) (missing) (missing) Result panel 3820 Specimen collection (procedure) (no date) [facility] (missing) (missing) (missing) Result panel 3821 Specimen collection (procedure) (no date) [facility] (missing) (missing) (missing) Result panel 3822 Specimen collection (procedure) (no date) [facility] (missing) (missing) (missing) Result panel 3823 Specimen collection (procedure) (no date) [facility] (missing) (missing) (missing) Result panel 3824 Specimen collection (procedure) (no date) [facility] (missing) (missing) (missing) Result panel 3825 Specimen collection (procedure) (no date) [facility] (missing) (missing) (missing) Result panel 3826 Specimen collection (procedure) (no date) [facility] (missing) (missing) (missing) Result panel 3827 Specimen collection (procedure) (no date) [facility] (missing) (missing) (missing) Result panel 3828 Specimen collection (procedure) (no date) [facility] (missing) (missing) (missing) Result panel 3829 Specimen collection (procedure) (no date) [facility] (missing) (missing) (missing) Result panel 3830 Specimen collection (procedure) (no date) [facility] (missing) (missing) (missing) Result panel 3831 Specimen collection (procedure) (no date) [facility] (missing) (missing) (missing) Result panel 3832 Specimen collection (procedure) (no date) [facility] (missing) (missing) (missing) Result panel 3833 Specimen collection (procedure) (no date) [facility] (missing) (missing) (missing) Result panel 3834 Specimen collection (procedure) (no date) [facility] (missing) (missing) (missing) Result panel 3835 Specimen collection (procedure) (no date) [facility] (missing) (missing) (missing) Result panel 3836 Specimen collection (procedure) (no date) [facility] (missing) (missing) (missing) Result panel 3837 Specimen collection (procedure) (no date) [facility] (missing) (missing) (missing) Result panel 3838 Specimen collection (procedure) (no date) [facility] (missing) (missing) (missing) Result panel 3839 Specimen collection (procedure) (no date) [facility] (missing) (missing) (missing) Result panel 3840 Specimen collection (procedure) (no date) [facility] (missing) (missing) (missing) Result panel 3841 Specimen collection (procedure) (no date) [facility] (missing) (missing) (missing) Result panel 3842 Specimen collection (procedure) (no date) [facility] (missing) (missing) (missing) Result panel 3843 Specimen collection (procedure) (no date) [facility] (missing) (missing) (missing) Result panel 3844 Specimen collection (procedure) (no date) [facility] (missing) (missing) (missing) Result panel 3845 Specimen collection (procedure) (no date) [facility] (missing) (missing) (missing) Result panel 3846 Specimen collection (procedure) (no date) [facility] (missing) (missing) (missing) Result panel 3847 Specimen collection (procedure) (no date) [facility] (missing) (missing) (missing) Result panel 3848 Specimen collection (procedure) (no date) [facility] (missing) (missing) (missing) Result panel 3849 Specimen collection (procedure) (no date) [facility] (missing) (missing) (missing) Result panel 3850 Specimen collection (procedure) (no date) [facility] (missing) (missing) (missing) Result panel 3851 Specimen collection (procedure) (no date) [facility] (missing) (missing) (missing) Result panel 3852 Specimen collection (procedure) (no date) [facility] (missing) (missing) (missing) Result panel 3853 Specimen collection (procedure) (no date) [facility] (missing) (missing) (missing) Result panel 3854 Specimen collection (procedure) (no date) [facility] (missing) (missing) (missing) Result panel 3855 Specimen collection (procedure) (no date) [facility] (missing) (missing) (missing) Result panel 3856 Specimen collection (procedure) (no date) [facility] (missing) (missing) (missing) Result panel 3857 Specimen collection (procedure) (no date) [facility] (missing) (missing) (missing) Result panel 3858 Specimen collection (procedure) (no date) [facility] (missing) (missing) (missing) Result panel 3859 Specimen collection (procedure) (no date) [facility] (missing) (missing) (missing) Result panel 3860 Specimen collection (procedure) (no date) [facility] (missing) (missing) (missing) Result panel 3861 Specimen collection (procedure) (no date) [facility] (missing) (missing) (missing) Result panel 3862 Specimen collection (procedure) (no date) [facility] (missing) (missing) (missing) Result panel 3863 Specimen collection (procedure) (no date) [facility] (missing) (missing) (missing) Result panel 3864 Specimen collection (procedure) (no date) [facility] (missing) (missing) (missing) Result panel 3865 Specimen collection (procedure) (no date) [facility] (missing) (missing) (missing) Result panel 3866 Specimen collection (procedure) (no date) [facility] (missing) (missing) (missing) Result panel 3867 Specimen collection (procedure) (no date) [facility] (missing) (missing) (missing) Result panel 3868 Specimen collection (procedure) (no date) [facility] (missing) (missing) (missing) Result panel 3869 Specimen collection (procedure) (no date) [facility] (missing) (missing) (missing) Result panel 3870 Specimen collection (procedure) (no date) [facility] (missing) (missing) (missing) Result panel 3871 Specimen collection (procedure) (no date) [facility] (missing) (missing) (missing) Result panel 3872 Specimen collection (procedure) (no date) [facility] (missing) (missing) (missing) Result panel 3873 Specimen collection (procedure) (no date) [facility] (missing) (missing) (missing) Result panel 3874 Specimen collection (procedure) (no date) [facility] (missing) (missing) (missing) Result panel 3875 Specimen collection (procedure) (no date) [facility] (missing) (missing) (missing) Result panel 3876 Specimen collection (procedure) (no date) [facility] (missing) (missing) (missing) Result panel 3877 Specimen collection (procedure) (no date) [facility] (missing) (missing) (missing) Result panel 3878 Specimen collection (procedure) (no date) [facility] (missing) (missing) (missing) Result panel 3879 Specimen collection (procedure) (no date) [facility] (missing) (missing) (missing) Result panel 3880 Specimen collection (procedure) (no date) [facility] (missing) (missing) (missing) Result panel 3881 Specimen collection (procedure) (no date) [facility] (missing) (missing) (missing) Result panel 3882 Specimen collection (procedure) (no date) [facility] (missing) (missing) (missing) Result panel 3883 Specimen collection (procedure) (no date) [facility] (missing) (missing) (missing) Result panel 3884 Specimen collection (procedure) (no date) [facility] (missing) (missing) (missing) Result panel 3885 Specimen collection (procedure) (no date) [facility] (missing) (missing) (missing) Result panel 3886 Specimen collection (procedure) (no date) [facility] (missing) (missing) (missing) Result panel 3887 Specimen collection (procedure) (no date) [facility] (missing) (missing) (missing) Result panel 3888 Specimen collection (procedure) (no date) [facility] (missing) (missing) (missing) Result panel 3889 Specimen collection (procedure) (no date) [facility] (missing) (missing) (missing) Result panel 3890 Specimen collection (procedure) (no date) [facility] (missing) (missing) (missing) Result panel 3891 Specimen collection (procedure) (no date) [facility] (missing) (missing) (missing) Result panel 3892 Specimen collection (procedure) (no date) [facility] (missing) (missing) (missing) Result panel 3893 Specimen collection (procedure) (no date) [facility] (missing) (missing) (missing) Result panel 3894 Specimen collection (procedure) (no date) [facility] (missing) (missing) (missing) Result panel 3895 Specimen collection (procedure) (no date) [facility] (missing) (missing) (missing) Result panel 3896 Specimen collection (procedure) (no date) [facility] (missing) (missing) (missing) Result panel 3897 Specimen collection (procedure) (no date) [facility] (missing) (missing) (missing) Result panel 3898 Specimen collection (procedure) (no date) [facility] (missing) (missing) (missing) Result panel 3899 Specimen collection (procedure) (no date) [facility] (missing) (missing) (missing) Result panel 3900 Specimen collection (procedure) (no date) [facility] (missing) (missing) (missing) Result panel 3901 Specimen collection (procedure) (no date) [facility] (missing) (missing) (missing) Result panel 3902 Specimen collection (procedure) (no date) [facility] (missing) (missing) (missing) Result panel 3903 Specimen collection (procedure) (no date) [facility] (missing) (missing) (missing) Result panel 3904 Specimen collection (procedure) (no date) [facility] (missing) (missing) (missing) Result panel 3905 Specimen collection (procedure) (no date) [facility] (missing) (missing) (missing) Result panel 3906 Specimen collection (procedure) (no date) [facility] (missing) (missing) (missing) Result panel 3907 Specimen collection (procedure) (no date) [facility] (missing) (missing) (missing) Result panel 3908 Specimen collection (procedure) (no date) [facility] (missing) (missing) (missing) Result panel 3909 Specimen collection (procedure) (no date) [facility] (missing) (missing) (missing) Result panel 3910 Specimen collection (procedure) (no date) [facility] (missing) (missing) (missing) Result panel 3911 Specimen collection (procedure) (no date) [facility] (missing) (missing) (missing) Result panel 3912 Specimen collection (procedure) (no date) [facility] (missing) (missing) (missing) Result panel 3913 Specimen collection (procedure) (no date) [facility] (missing) (missing) (missing) Result panel 3914 Specimen collection (procedure) (no date) [facility] (missing) (missing) (missing) Result panel 3915 Specimen collection (procedure) (no date) [facility] (missing) (missing) (missing) Result panel 3916 Specimen collection (procedure) (no date) [facility] (missing) (missing) (missing) Result panel 3917 Specimen collection (procedure) (no date) [facility] (missing) (missing) (missing) Result panel 3918 Specimen collection (procedure) (no date) [facility] (missing) (missing) (missing) Result panel 3919 Specimen collection (procedure) (no date) [facility] (missing) (missing) (missing) Result panel 3920 Specimen collection (procedure) (no date) [facility] (missing) (missing) (missing) Result panel 3921 Specimen collection (procedure) (no date) [facility] (missing) (missing) (missing) Result panel 3922 Specimen collection (procedure) (no date) [facility] (missing) (missing) (missing) Result panel 3923 Specimen collection (procedure) (no date) [facility] (missing) (missing) (missing) Result panel 3924 Specimen collection (procedure) (no date) [facility] (missing) (missing) (missing) Result panel 3925 Specimen collection (procedure) (no date) [facility] (missing) (missing) (missing) Result panel 3926 Specimen collection (procedure) (no date) [facility] (missing) (missing) (missing) Result panel 3927 Specimen collection (procedure) (no date) [facility] (missing) (missing) (missing) Result panel 3928 Specimen collection (procedure) (no date) [facility] (missing) (missing) (missing) Result panel 3929 Specimen collection (procedure) (no date) [facility] (missing) (missing) (missing) Result panel 3930 Specimen collection (procedure) (no date) [facility] (missing) (missing) (missing) Result panel 3931 Specimen collection (procedure) (no date) [facility] (missing) (missing) (missing) Result panel 3932 Specimen collection (procedure) (no date) [facility] (missing) (missing) (missing) Result panel 3933 Specimen collection (procedure) (no date) [facility] (missing) (missing) (missing) Result panel 3934 Specimen collection (procedure) (no date) [facility] (missing) (missing) (missing) Result panel 3935 Specimen collection (procedure) (no date) [facility] (missing) (missing) (missing) Result panel 3936 Specimen collection (procedure) (no date) [facility] (missing) (missing) (missing) Result panel 3937 Specimen collection (procedure) (no date) [facility] (missing) (missing) (missing) Result panel 3938 Specimen collection (procedure) (no date) [facility] (missing) (missing) (missing) Result panel 3939 Specimen collection (procedure) (no date) [facility] (missing) (missing) (missing) Result panel 3940 Specimen collection (procedure) (no date) [facility] (missing) (missing) (missing) Result panel 3941 Specimen collection (procedure) (no date) [facility] (missing) (missing) (missing) Result panel 3942 Specimen collection (procedure) (no date) [facility] (missing) (missing) (missing) Result panel 3943 Specimen collection (procedure) (no date) [facility] (missing) (missing) (missing) Result panel 3944 Specimen collection (procedure) (no date) [facility] (missing) (missing) (missing) Result panel 3945 Specimen collection (procedure) (no date) [facility] (missing) (missing) (missing) Result panel 3946 Specimen collection (procedure) (no date) [facility] (missing) (missing) (missing) Result panel 3947 Specimen collection (procedure) (no date) [facility] (missing) (missing) (missing) Result panel 3948 Specimen collection (procedure) (no date) [facility] (missing) (missing) (missing) Result panel 3949 Specimen collection (procedure) (no date) [facility] (missing) (missing) (missing) Result panel 3950 Specimen collection (procedure) (no date) [facility] (missing) (missing) (missing) Result panel 3951 Specimen collection (procedure) (no date) [facility] (missing) (missing) (missing) Result panel 3952 Specimen collection (procedure) (no date) [facility] (missing) (missing) (missing) Result panel 3953 Specimen collection (procedure) (no date) [facility] (missing) (missing) (missing) Result panel 3954 Specimen collection (procedure) (no date) [facility] (missing) (missing) (missing) Result panel 3955 Specimen collection (procedure) (no date) [facility] (missing) (missing) (missing) Result panel 3956 Specimen collection (procedure) (no date) [facility] (missing) (missing) (missing) Result panel 3957 Specimen collection (procedure) (no date) [facility] (missing) (missing) (missing) Result panel 3958 Specimen collection (procedure) (no date) [facility] (missing) (missing) (missing) Result panel 3959 Specimen collection (procedure) (no date) [facility] (missing) (missing) (missing) Result panel 3960 Specimen collection (procedure) (no date) [facility] (missing) (missing) (missing) Result panel 3961 Specimen collection (procedure) (no date) [facility] (missing) (missing) (missing) Result panel 3962 Specimen collection (procedure) (no date) [facility] (missing) (missing) (missing) Result panel 3963 Specimen collection (procedure) (no date) [facility] (missing) (missing) (missing) Result panel 3964 Specimen collection (procedure) (no date) [facility] (missing) (missing) (missing) Result panel 3965 Specimen collection (procedure) (no date) [facility] (missing) (missing) (missing) Result panel 3966 Specimen collection (procedure) (no date) [facility] (missing) (missing) (missing) Result panel 3967 Specimen collection (procedure) (no date) [facility] (missing) (missing) (missing) Result panel 3968 Specimen collection (procedure) (no date) [facility] (missing) (missing) (missing) Result panel 3969 Specimen collection (procedure) (no date) [facility] (missing) (missing) (missing) Result panel 3970 Specimen collection (procedure) (no date) [facility] (missing) (missing) (missing) Result panel 3971 Specimen collection (procedure) (no date) [facility] (missing) (missing) (missing) Result panel 3972 Specimen collection (procedure) (no date) [facility] (missing) (missing) (missing) Result panel 3973 Specimen collection (procedure) (no date) [facility] (missing) (missing) (missing) Result panel 3974 Specimen collection (procedure) (no date) [facility] (missing) (missing) (missing) Result panel 3975 Specimen collection (procedure) (no date) [facility] (missing) (missing) (missing) Result panel 3976 Specimen collection (procedure) (no date) [facility] (missing) (missing) (missing) Result panel 3977 Specimen collection (procedure) (no date) [facility] (missing) (missing) (missing) Result panel 3978 Specimen collection (procedure) (no date) [facility] (missing) (missing) (missing) Result panel 3979 Specimen collection (procedure) (no date) [facility] (missing) (missing) (missing) Result panel 3980 Specimen collection (procedure) (no date) [facility] (missing) (missing) (missing) Result panel 3981 Specimen collection (procedure) (no date) [facility] (missing) (missing) (missing) Result panel 3982 Specimen collection (procedure) (no date) [facility] (missing) (missing) (missing) Result panel 3983 Specimen collection (procedure) (no date) [facility] (missing) (missing) (missing) Result panel 3984 Specimen collection (procedure) (no date) [facility] (missing) (missing) (missing) Result panel 3985 Specimen collection (procedure) (no date) [facility] (missing) (missing) (missing) Result panel 3986 Specimen collection (procedure) (no date) [facility] (missing) (missing) (missing) Result panel 3987 Specimen collection (procedure) (no date) [facility] (missing) (missing) (missing) Result panel 3988 Specimen collection (procedure) (no date) [facility] (missing) (missing) (missing) Result panel 3989 Specimen collection (procedure) (no date) [facility] (missing) (missing) (missing) Result panel 3990 Specimen collection (procedure) (no date) [facility] (missing) (missing) (missing) Result panel 3991 Specimen collection (procedure) (no date) [facility] (missing) (missing) (missing) Result panel 3992 Specimen collection (procedure) (no date) [facility] (missing) (missing) (missing) Result panel 3993 Specimen collection (procedure) (no date) [facility] (missing) (missing) (missing) Result panel 3994 Specimen collection (procedure) (no date) [facility] (missing) (missing) (missing) Result panel 3995 Specimen collection (procedure) (no date) [facility] (missing) (missing) (missing) Result panel 3996 Specimen collection (procedure) (no date) [facility] (missing) (missing) (missing) Result panel 3997 Specimen collection (procedure) (no date) [facility] (missing) (missing) (missing) Result panel 3998 Specimen collection (procedure) (no date) [facility] (missing) (missing) (missing) Result panel 3999 Specimen collection (procedure) (no date) [facility] (missing) (missing) (missing) Result panel 4000 Specimen collection (procedure) (no date) [facility] (missing) (missing) (missing) Result panel 4001 Specimen collection (procedure) (no date) [facility] (missing) (missing) (missing) Result panel 4002 Specimen collection (procedure) (no date) [facility] (missing) (missing) (missing) Result panel 4003 Specimen collection (procedure) (no date) [facility] (missing) (missing) (missing) Result panel 4004 Specimen collection (procedure) (no date) [facility] (missing) (missing) (missing) Result panel 4005 Specimen collection (procedure) (no date) [facility] (missing) (missing) (missing) Result panel 4006 Specimen collection (procedure) (no date) [facility] (missing) (missing) (missing) Result panel 4007 Specimen collection (procedure) (no date) [facility] (missing) (missing) (missing) Result panel 4008 Specimen collection (procedure) (no date) [facility] (missing) (missing) (missing) Result panel 4009 Specimen collection (procedure) (no date) [facility] (missing) (missing) (missing) Result panel 4010 Specimen collection (procedure) (no date) [facility] (missing) (missing) (missing) Result panel 4011 Specimen collection (procedure) (no date) [facility] (missing) (missing) (missing) Result panel 4012 Specimen collection (procedure) (no date) [facility] (missing) (missing) (missing) Result panel 4013 Specimen collection (procedure) (no date) [facility] (missing) (missing) (missing) Result panel 4014 Specimen collection (procedure) (no date) [facility] (missing) (missing) (missing) Result panel 4015 Specimen collection (procedure) (no date) [facility] (missing) (missing) (missing) Result panel 4016 Specimen collection (procedure) (no date) [facility] (missing) (missing) (missing) Result panel 4017 Specimen collection (procedure) (no date) [facility] (missing) (missing) (missing) Result panel 4018 Specimen collection (procedure) (no date) [facility] (missing) (missing) (missing) Result panel 4019 Specimen collection (procedure) (no date) [facility] (missing) (missing) (missing) Result panel 4020 Specimen collection (procedure) (no date) [facility] (missing) (missing) (missing) Result panel 4021 Specimen collection (procedure) (no date) [facility] (missing) (missing) (missing) Result panel 4022 Specimen collection (procedure) (no date) [facility] (missing) (missing) (missing) Result panel 4023 Specimen collection (procedure) (no date) [facility] (missing) (missing) (missing) Result panel 4024 Specimen collection (procedure) (no date) [facility] (missing) (missing) (missing) Result panel 4025 Specimen collection (procedure) (no date) [facility] (missing) (missing) (missing) Result panel 4026 Specimen collection (procedure) (no date) [facility] (missing) (missing) (missing) Result panel 4027 Specimen collection (procedure) (no date) [facility] (missing) (missing) (missing) Result panel 4028 Specimen collection (procedure) (no date) [facility] (missing) (missing) (missing) Result panel 4029 Specimen collection (procedure) (no date) [facility] (missing) (missing) (missing) Result panel 4030 Specimen collection (procedure) (no date) [facility] (missing) (missing) (missing) Result panel 4031 Specimen collection (procedure) (no date) [facility] (missing) (missing) (missing) Result panel 4032 Specimen collection (procedure) (no date) [facility] (missing) (missing) (missing) Result panel 4033 Specimen collection (procedure) (no date) [facility] (missing) (missing) (missing) Result panel 4034 Specimen collection (procedure) (no date) [facility] (missing) (missing) (missing) Result panel 4035 Specimen collection (procedure) (no date) [facility] (missing) (missing) (missing) Result panel 4036 Specimen collection (procedure) (no date) [facility] (missing) (missing) (missing) Result panel 4037 Specimen collection (procedure) (no date) [facility] (missing) (missing) (missing) Result panel 4038 Specimen collection (procedure) (no date) [facility] (missing) (missing) (missing) Result panel 4039 Specimen collection (procedure) (no date) [facility] (missing) (missing) (missing) Result panel 4040 Specimen collection (procedure) (no date) [facility] (missing) (missing) (missing) Result panel 4041 Specimen collection (procedure) (no date) [facility] (missing) (missing) (missing) Result panel 4042 Specimen collection (procedure) (no date) [facility] (missing) (missing) (missing) Result panel 4043 Specimen collection (procedure) (no date) [facility] (missing) (missing) (missing) Result panel 4044 Specimen collection (procedure) (no date) [facility] (missing) (missing) (missing) Result panel 4045 Specimen collection (procedure) (no date) [facility] (missing) (missing) (missing) Result panel 4046 Specimen collection (procedure) (no date) [facility] (missing) (missing) (missing) Result panel 4047 Specimen collection (procedure) (no date) [facility] (missing) (missing) (missing) Result panel 4048 Specimen collection (procedure) (no date) [facility] (missing) (missing) (missing) Result panel 4049 Specimen collection (procedure) (no date) [facility] (missing) (missing) (missing) Result panel 4050 Specimen collection (procedure) (no date) [facility] (missing) (missing) (missing) Result panel 4051 Specimen collection (procedure) (no date) [facility] (missing) (missing) (missing) Result panel 4052 Specimen collection (procedure) (no date) [facility] (missing) (missing) (missing) Result panel 4053 Specimen collection (procedure) (no date) [facility] (missing) (missing) (missing) Result panel 4054 Specimen collection (procedure) (no date) [facility] (missing) (missing) (missing) Result panel 4055 Specimen collection (procedure) (no date) [facility] (missing) (missing) (missing) Result panel 4056 Specimen collection (procedure) (no date) [facility] (missing) (missing) (missing) Result panel [id number] Specimen collection (procedure) (no date) [facility] (missing) (missing) (missing) Result panel 4058 Specimen collection (procedure) (no date) [facility] (missing) (missing) (missing) Result panel 4059 Specimen collection (procedure) (no date) [facility] (missing) (missing) (missing) Result panel 4060 Specimen collection (procedure) (no date) [facility] (missing) (missing) (missing) Result panel 4061 Specimen collection (procedure) (no date) [facility] (missing) (missing) (missing) Result panel 4062 Specimen collection (procedure) (no date) [facility] (missing) (missing) (missing) Result panel 4063 Specimen collection (procedure) (no date) [facility] (missing) (missing) (missing) Result panel 4064 Specimen collection (procedure) (no date) [facility] (missing) (missing) (missing) Result panel 4065 Specimen collection (procedure) (no date) [facility] (missing) (missing) (missing) Result panel 4066 Specimen collection (procedure) (no date) [facility] (missing) (missing) (missing) Result panel 4067 Specimen collection (procedure) (no date) [facility] (missing) (missing) (missing) Result panel 4068 Specimen collection (procedure) (no date) [facility] (missing) (missing) (missing) Result panel 4069 Specimen collection (procedure) (no date) [facility] (missing) (missing) (missing) Result panel 4070 Specimen collection (procedure) (no date) [facility] (missing) (missing) (missing) Result panel 4071 Specimen collection (procedure) (no date) [facility] (missing) (missing) (missing) Result panel 4072 Specimen collection (procedure) (no date) [facility] (missing) (missing) (missing) Result panel 4073 Specimen collection (procedure) (no date) [facility] (missing) (missing) (missing) Result panel 4074 Specimen collection (procedure) (no date) [facility] (missing) (missing) (missing) Result panel 4075 Specimen collection (procedure) (no date) [facility] (missing) (missing) (missing) Result panel 4076 Specimen collection (procedure) (no date) [facility] (missing) (missing) (missing) Result panel 4077 Specimen collection (procedure) (no date) [facility] (missing) (missing) (missing) Result panel 4078 Specimen collection (procedure) (no date) [facility] (missing) (missing) (missing) Result panel 4079 Specimen collection (procedure) (no date) [facility] (missing) (missing) (missing) Result panel 4080 Specimen collection (procedure) (no date) [facility] (missing) (missing) (missing) Result panel 4081 Specimen collection (procedure) (no date) [facility] (missing) (missing) (missing) Result panel 4082 Specimen collection (procedure) (no date) [facility] (missing) (missing) (missing) Result panel 4083 Specimen collection (procedure) (no date) [facility] (missing) (missing) (missing) Result panel 4084 Specimen collection (procedure) (no date) [facility] (missing) (missing) (missing) Result panel 4085 Specimen collection (procedure) (no date) [facility] (missing) (missing) (missing) Result panel 4086 Specimen collection (procedure) (no date) [facility] (missing) (missing) (missing) Result panel 4087 Specimen collection (procedure) (no date) [facility] (missing) (missing) (missing) Result panel 4088 Specimen collection (procedure) (no date) [facility] (missing) (missing) (missing) Result panel 4089 Specimen collection (procedure) (no date) [facility] (missing) (missing) (missing) Result panel 4090 Specimen collection (procedure) (no date) [facility] (missing) (missing) (missing) Result panel 4091 Specimen collection (procedure) (no date) [facility] (missing) (missing) (missing) Result panel 4092 Specimen collection (procedure) (no date) [facility] (missing) (missing) (missing) Result panel 4093 Specimen collection (procedure) (no date) [facility] (missing) (missing) (missing) Result panel 4094 Specimen collection (procedure) (no date) [facility] (missing) (missing) (missing) Result panel 4095 Specimen collection (procedure) (no date) [facility] (missing) (missing) (missing) Result panel 4096 Specimen collection (procedure) (no date) [facility] (missing) (missing) (missing) Result panel 4097 Specimen collection (procedure) (no date) [facility] (missing) (missing) (missing) Result panel 4098 Specimen collection (procedure) (no date) [facility] (missing) (missing) (missing) Result panel 4099 Specimen collection (procedure) (no date) [facility] (missing) (missing) (missing) Result panel 4100 Specimen collection (procedure) (no date) [facility] (missing) (missing) (missing) Result panel 4101 Specimen collection (procedure) (no date) [facility] (missing) (missing) (missing) Result panel 4102 Specimen collection (procedure) (no date) [facility] (missing) (missing) (missing) Result panel 4103 Specimen collection (procedure) (no date) [facility] (missing) (missing) (missing) Result panel 4104 Specimen collection (procedure) (no date) [facility] (missing) (missing) (missing) Result panel 4105 Specimen collection (procedure) (no date) [facility] (missing) (missing) (missing) Result panel 4106 Specimen collection (procedure) (no date) [facility] (missing) (missing) (missing) Result panel 4107 Specimen collection (procedure) (no date) [facility] (missing) (missing) (missing) Result panel 4108 Specimen collection (procedure) (no date) [facility] (missing) (missing) (missing) Result panel 4109 Specimen collection (procedure) (no date) [facility] (missing) (missing) (missing) Result panel 4110 Specimen collection (procedure) (no date) [facility] (missing) (missing) (missing) Result panel 4111 Specimen collection (procedure) (no date) [facility] (missing) (missing) (missing) Result panel 4112 Specimen collection (procedure) (no date) [facility] (missing) (missing) (missing) Result panel 4113 Specimen collection (procedure) (no date) [facility] (missing) (missing) (missing) Result panel 4114 Specimen collection (procedure) (no date) [facility] (missing) (missing) (missing) Result panel 4115 Specimen collection (procedure) (no date) [facility] (missing) (missing) (missing) Result panel 4116 Specimen collection (procedure) (no date) [facility] (missing) (missing) (missing) Result panel 4117 Specimen collection (procedure) (no date) [facility] (missing) (missing) (missing) Result panel 4118 Specimen collection (procedure) (no date) [facility] (missing) (missing) (missing) Result panel 4119 Specimen collection (procedure) (no date) [facility] (missing) (missing) (missing) Result panel 4120 Specimen collection (procedure) (no date) [facility] (missing) (missing) (missing) Result panel 4121 Specimen collection (procedure) (no date) [facility] (missing) (missing) (missing) Result panel 4122 Specimen collection (procedure) (no date) [facility] (missing) (missing) (missing) Result panel 4123 Specimen collection (procedure) (no date) [facility] (missing) (missing) (missing) Result panel 4124 Specimen collection (procedure) (no date) [facility] (missing) (missing) (missing) Result panel 4125 Specimen collection (procedure) (no date) [facility] (missing) (missing) (missing) Result panel 4126 Specimen collection (procedure) (no date) [facility] (missing) (missing) (missing) Result panel 4127 Specimen collection (procedure) (no date) [facility] (missing) (missing) (missing) Result panel 4128 Specimen collection (procedure) (no date) [facility] (missing) (missing) (missing) Result panel 4129 Specimen collection (procedure) (no date) [facility] (missing) (missing) (missing) Result panel 4130 Specimen collection (procedure) (no date) [facility] (missing) (missing) (missing) Result panel 4131 Specimen collection (procedure) (no date) [facility] (missing) (missing) (missing) Result panel 4132 Specimen collection (procedure) (no date) [facility] (missing) (missing) (missing) Result panel 4133 Specimen collection (procedure) (no date) [facility] (missing) (missing) (missing) Result panel 4134 Specimen collection (procedure) (no date) [facility] (missing) (missing) (missing) Result panel 4135 Specimen collection (procedure) (no date) [facility] (missing) (missing) (missing) Result panel 4136 Specimen collection (procedure) (no date) [facility] (missing) (missing) (missing) Result panel 4137 Specimen collection (procedure) (no date) [facility] (missing) (missing) (missing) Result panel 4138 Specimen collection (procedure) (no date) [facility] (missing) (missing) (missing) Result panel 4139 Specimen collection (procedure) (no date) [facility] (missing) (missing) (missing) Result panel 4140 Specimen collection (procedure) (no date) [facility] (missing) (missing) (missing) Result panel 4141 Specimen collection (procedure) (no date) [facility] (missing) (missing) (missing) Result panel 4142 Specimen collection (procedure) (no date) [facility] (missing) (missing) (missing) Result panel 4143 Specimen collection (procedure) (no date) [facility] (missing) (missing) (missing) Result panel 4144 Specimen collection (procedure) (no date) [facility] (missing) (missing) (missing) Result panel 4145 Specimen collection (procedure) (no date) [facility] (missing) (missing) (missing) Result panel 4146 Specimen collection (procedure) (no date) [facility] (missing) (missing) (missing) Result panel 4147 Specimen collection (procedure) (no date) [facility] (missing) (missing) (missing) Result panel 4148 Specimen collection (procedure) (no date) [facility] (missing) (missing) (missing) Result panel 4149 Specimen collection (procedure) (no date) [facility] (missing) (missing) (missing) Result panel 4150 Specimen collection (procedure) (no date) [facility] (missing) (missing) (missing) Result panel 4151 Specimen collection (procedure) (no date) [facility] (missing) (missing) (missing) Result panel 4152 Specimen collection (procedure) (no date) [facility] (missing) (missing) (missing) Result panel 4153 Specimen collection (procedure) (no date) [facility] (missing) (missing) (missing) Result panel 4154 Specimen collection (procedure) (no date) [facility] (missing) (missing) (missing) Result panel 4155 Specimen collection (procedure) (no date) [facility] (missing) (missing) (missing) Result panel 4156 Specimen collection (procedure) (no date) [facility] (missing) (missing) (missing) Result panel 4157 Specimen collection (procedure) (no date) [facility] (missing) (missing) (missing) Result panel 4158 Specimen collection (procedure) (no date) [facility] (missing) (missing) (missing) Result panel 4159 Specimen collection (procedure) (no date) [facility] (missing) (missing) (missing) Result panel 4160 Specimen collection (procedure) (no date) [facility] (missing) (missing) (missing) Result panel 4161 Specimen collection (procedure) (no date) [facility] (missing) (missing) (missing) Result panel 4162 Specimen collection (procedure) (no date) [facility] (missing) (missing) (missing) Result panel 4163 Specimen collection (procedure) (no date) [facility] (missing) (missing) (missing) Result panel 4164 Specimen collection (procedure) (no date) [facility] (missing) (missing) (missing) Result panel 4165 Specimen collection (procedure) (no date) [facility] (missing) (missing) (missing) Result panel 4166 Specimen collection (procedure) (no date) [facility] (missing) (missing) (missing) Result panel 4167 Specimen collection (procedure) (no date) [facility] (missing) (missing) (missing) Result panel 4168 Specimen collection (procedure) (no date) [facility] (missing) (missing) (missing) Result panel 4169 Specimen collection (procedure) (no date) [facility] (missing) (missing) (missing) Result panel 4170 Specimen collection (procedure) (no date) [facility] (missing) (missing) (missing) Result panel 4171 Specimen collection (procedure) (no date) [facility] (missing) (missing) (missing) Result panel 4172 Specimen collection (procedure) (no date) [facility] (missing) (missing) (missing) Result panel 4173 Specimen collection (procedure) (no date) [facility] (missing) (missing) (missing) Result panel 4174 Specimen collection (procedure) (no date) [facility] (missing) (missing) (missing) Result panel 4175 Specimen collection (procedure) (no date) [facility] (missing) (missing) (missing) Result panel 4176 Specimen collection (procedure) (no date) [facility] (missing) (missing) (missing) Result panel 4177 Specimen collection (procedure) (no date) [facility] (missing) (missing) (missing) Result panel 4178 Specimen collection (procedure) (no date) [facility] (missing) (missing) (missing) Result panel 4179 Specimen collection (procedure) (no date) [facility] (missing) (missing) (missing) Result panel 4180 Specimen collection (procedure) (no date) [facility] (missing) (missing) (missing) Result panel 4181 Specimen collection (procedure) (no date) [facility] (missing) (missing) (missing) Result panel 4182 Specimen collection (procedure) (no date) [facility] (missing) (missing) (missing) Result panel 4183 Specimen collection (procedure) (no date) [facility] (missing) (missing) (missing) Result panel 4184 Specimen collection (procedure) (no date) [facility] (missing) (missing) (missing) Result panel 4185 Specimen collection (procedure) (no date) [facility] (missing) (missing) (missing) Result panel 4186 Specimen collection (procedure) (no date) [facility] (missing) (missing) (missing) Result panel 4187 Specimen collection (procedure) (no date) [facility] (missing) (missing) (missing) Result panel 4188 Specimen collection (procedure) (no date) [facility] (missing) (missing) (missing) Result panel 4189 Specimen collection (procedure) (no date) [facility] (missing) (missing) (missing) Result panel 4190 Specimen collection (procedure) (no date) [facility] (missing) (missing) (missing) Result panel 4191 Specimen collection (procedure) (no date) [facility] (missing) (missing) (missing) Result panel 4192 Specimen collection (procedure) (no date) [facility] (missing) (missing) (missing) Result panel 4193 Specimen collection (procedure) (no date) [facility] (missing) (missing) (missing) Result panel 4194 Specimen collection (procedure) (no date) [facility] (missing) (missing) (missing) Result panel 4195 Specimen collection (procedure) (no date) [facility] (missing) (missing) (missing) Result panel 4196 Specimen collection (procedure) (no date) [facility] (missing) (missing) (missing) Result panel 4197 Specimen collection (procedure) (no date) [facility] (missing) (missing) (missing) Result panel 4198 Specimen collection (procedure) (no date) [facility] (missing) (missing) (missing) Result panel 4199 Specimen collection (procedure) (no date) [facility] (missing) (missing) (missing) Result panel 4200 Specimen collection (procedure) (no date) [facility] (missing) (missing) (missing) Result panel 4201 Specimen collection (procedure) (no date) [facility] (missing) (missing) (missing) Result panel 4202 Specimen collection (procedure) (no date) [facility] (missing) (missing) (missing) Result panel 4203 Specimen collection (procedure) (no date) [facility] (missing) (missing) (missing) Result panel 4204 Specimen collection (procedure) (no date) [facility] (missing) (missing) (missing) Result panel 4205 Specimen collection (procedure) (no date) [facility] (missing) (missing) (missing) Result panel 4206 Specimen collection (procedure) (no date) [facility] (missing) (missing) (missing) Result panel 4207 Specimen collection (procedure) (no date) [facility] (missing) (missing) (missing) Result panel 4208 Specimen collection (procedure) (no date) [facility] (missing) (missing) (missing) Result panel 4209 Specimen collection (procedure) (no date) [facility] (missing) (missing) (missing) Result panel 4210 Specimen collection (procedure) (no date) [facility] (missing) (missing) (missing) Result panel 4211 Specimen collection (procedure) (no date) [facility] (missing) (missing) (missing) Result panel 4212 Specimen collection (procedure) (no date) [facility] (missing) (missing) (missing) Result panel 4213 Specimen collection (procedure) (no date) [facility] (missing) (missing) (missing) Result panel 4214 Specimen collection (procedure) (no date) [facility] (missing) (missing) (missing) Result panel 4215 Specimen collection (procedure) (no date) [facility] (missing) (missing) (missing) Result panel 4216 Specimen collection (procedure) (no date) [facility] (missing) (missing) (missing) Result panel 4217 Specimen collection (procedure) (no date) [facility] (missing) (missing) (missing) Result panel 4218 Specimen collection (procedure) (no date) [facility] (missing) (missing) (missing) Result panel 4219 Specimen collection (procedure) (no date) [facility] (missing) (missing) (missing) Result panel 4220 Specimen collection (procedure) (no date) [facility] (missing) (missing) (missing) Result panel 4221 Specimen collection (procedure) (no date) [facility] (missing) (missing) (missing) Result panel 4222 Specimen collection (procedure) (no date) [facility] (missing) (missing) (missing) Result panel 4223 Specimen collection (procedure) (no date) [facility] (missing) (missing) (missing) Result panel 4224 Specimen collection (procedure) (no date) [facility] (missing) (missing) (missing) Result panel 4225 Specimen collection (procedure) (no date) [facility] (missing) (missing) (missing) Result panel 4226 Specimen collection (procedure) (no date) [facility] (missing) (missing) (missing) Result panel 4227 Specimen collection (procedure) (no date) [facility] (missing) (missing) (missing) Result panel 4228 Specimen collection (procedure) (no date) [facility] (missing) (missing) (missing) Result panel 4229 Specimen collection (procedure) (no date) [facility] (missing) (missing) (missing) Result panel 4230 Specimen collection (procedure) (no date) [facility] (missing) (missing) (missing) Result panel 4231 Specimen collection (procedure) (no date) [facility] (missing) (missing) (missing) Result panel 4232 Specimen collection (procedure) (no date) [facility] (missing) (missing) (missing) Result panel 4233 Specimen collection (procedure) (no date) [facility] (missing) (missing) (missing) Result panel 4234 Specimen collection (procedure) (no date) [facility] (missing) (missing) (missing) Result panel 4235 Specimen collection (procedure) (no date) [facility] (missing) (missing) (missing) Result panel 4236 Specimen collection (procedure) (no date) [facility] (missing) (missing) (missing) Result panel 4237 Specimen collection (procedure) (no date) [facility] (missing) (missing) (missing) Result panel 4238 Specimen collection (procedure) (no date) [facility] (missing) (missing) (missing) Result panel 4239 Specimen collection (procedure) (no date) [facility] (missing) (missing) (missing) Result panel 4240 Specimen collection (procedure) (no date) [facility] (missing) (missing) (missing) Result panel 4241 Specimen collection (procedure) (no date) [facility] (missing) (missing) (missing) Result panel 4242 Specimen collection (procedure) (no date) [facility] (missing) (missing) (missing) Result panel 4243 Specimen collection (procedure) (no date) [facility] (missing) (missing) (missing) Result panel 4244 Specimen collection (procedure) (no date) [facility] (missing) (missing) (missing) Result panel 4245 Specimen collection (procedure) (no date) [facility] (missing) (missing) (missing) Result panel 4246 Specimen collection (procedure) (no date) [facility] (missing) (missing) (missing) Result panel 4247 Specimen collection (procedure) (no date) [facility] (missing) (missing) (missing) Result panel 4248 Specimen collection (procedure) (no date) [facility] (missing) (missing) (missing) Result panel 4249 Specimen collection (procedure) (no date) [facility] (missing) (missing) (missing) Result panel 4250 Specimen collection (procedure) (no date) [facility] (missing) (missing) (missing) Result panel 4251 Specimen collection (procedure) (no date) [facility] (missing) (missing) (missing) Result panel 4252 Specimen collection (procedure) (no date) [facility] (missing) (missing) (missing) Result panel 4253 Specimen collection (procedure) (no date) [facility] (missing) (missing) (missing) Result panel 4254 Specimen collection (procedure) (no date) [facility] (missing) (missing) (missing) Result panel 4255 Specimen collection (procedure) (no date) [facility] (missing) (missing) (missing) Result panel 4256 Specimen collection (procedure) (no date) [facility] (missing) (missing) (missing) Result panel 4257 Specimen collection (procedure) (no date) [facility] (missing) (missing) (missing) Result panel 4258 Specimen collection (procedure) (no date) [facility] (missing) (missing) (missing) Result panel 4259 Specimen collection (procedure) (no date) [facility] (missing) (missing) (missing) Result panel 4260 Specimen collection (procedure) (no date) [facility] (missing) (missing) (missing) Result panel 4261 Specimen collection (procedure) (no date) [facility] (missing) (missing) (missing) Result panel 4262 Specimen collection (procedure) (no date) [facility] (missing) (missing) (missing) Result panel 4263 Specimen collection (procedure) (no date) [facility] (missing) (missing) (missing) Result panel 4264 Specimen collection (procedure) (no date) [facility] (missing) (missing) (missing) Result panel 4265 Specimen collection (procedure) (no date) [facility] (missing) (missing) (missing) Result panel 4266 Specimen collection (procedure) (no date) [facility] (missing) (missing) (missing) Result panel 4267 Specimen collection (procedure) (no date) [facility] (missing) (missing) (missing) Result panel 4268 Specimen collection (procedure) (no date) [facility] (missing) (missing) (missing) Result panel 4269 Specimen collection (procedure) (no date) [facility] (missing) (missing) (missing) Result panel 4270 Specimen collection (procedure) (no date) [facility] (missing) (missing) (missing) Result panel 4271 Specimen collection (procedure) (no date) [facility] (missing) (missing) (missing) Result panel 4272 Specimen collection (procedure) (no date) [facility] (missing) (missing) (missing) Result panel 4273 Specimen collection (procedure) (no date) [facility] (missing) (missing) (missing) Result panel 4274 Specimen collection (procedure) (no date) [facility] (missing) (missing) (missing) Result panel 4275 Specimen collection (procedure) (no date) [facility] (missing) (missing) (missing) Result panel 4276 Specimen collection (procedure) (no date) [facility] (missing) (missing) (missing) Result panel 4277 Specimen collection (procedure) (no date) [facility] (missing) (missing) (missing) Result panel 4278 Specimen collection (procedure) (no date) [facility] (missing) (missing) (missing) Result panel 4279 Specimen collection (procedure) (no date) [facility] (missing) (missing) (missing) Result panel 4280 Specimen collection (procedure) (no date) [facility] (missing) (missing) (missing) Result panel 4281 Specimen collection (procedure) (no date) [facility] (missing) (missing) (missing) Result panel 4282 Specimen collection (procedure) (no date) [facility] (missing) (missing) (missing) Result panel 4283 Specimen collection (procedure) (no date) [facility] (missing) (missing) (missing) Result panel 4284 Specimen collection (procedure) (no date) [facility] (missing) (missing) (missing) Result panel 4285 Specimen collection (procedure) (no date) [facility] (missing) (missing) (missing) Result panel 4286 Specimen collection (procedure) (no date) [facility] (missing) (missing) (missing) Result panel 4287 Specimen collection (procedure) (no date) [facility] (missing) (missing) (missing) Result panel 4288 Specimen collection (procedure) (no date) [facility] (missing) (missing) (missing) Result panel 4289 Specimen collection (procedure) (no date) [facility] (missing) (missing) (missing) Result panel 4290 Specimen collection (procedure) (no date) [facility] (missing) (missing) (missing) Result panel 4291 Specimen collection (procedure) (no date) [facility] (missing) (missing) (missing) Result panel 4292 Specimen collection (procedure) (no date) [facility] (missing) (missing) (missing) Result panel 4293 Specimen collection (procedure) (no date) [facility] (missing) (missing) (missing) Result panel 4294 Specimen collection (procedure) (no date) [facility] (missing) (missing) (missing) Result panel 4295 Specimen collection (procedure) (no date) [facility] (missing) (missing) (missing) Result panel 4296 Specimen collection (procedure) (no date) [facility] (missing) (missing) (missing) Result panel 4297 Specimen collection (procedure) (no date) [facility] (missing) (missing) (missing) Result panel 4298 Specimen collection (procedure) (no date) [facility] (missing) (missing) (missing) Result panel 4299 Specimen collection (procedure) (no date) [facility] (missing) (missing) (missing) Result panel 4300 Specimen collection (procedure) (no date) [facility] (missing) (missing) (missing) Result panel 4301 Specimen collection (procedure) (no date) [facility] (missing) (missing) (missing) Result panel 4302 Specimen collection (procedure) (no date) [facility] (missing) (missing) (missing) Result panel 4303 Specimen collection (procedure) (no date) [facility] (missing) (missing) (missing) Result panel 4304 Specimen collection (procedure) (no date) [facility] (missing) (missing) (missing) Result panel 4305 Specimen collection (procedure) (no date) [facility] (missing) (missing) (missing) Result panel 4306 Specimen collection (procedure) (no date) [facility] (missing) (missing) (missing) Result panel 4307 Specimen collection (procedure) (no date) [facility] (missing) (missing) (missing) Result panel 4308 Specimen collection (procedure) (no date) [facility] (missing) (missing) (missing) Result panel 4309 Specimen collection (procedure) (no date) [facility] (missing) (missing) (missing) Result panel 4310 Specimen collection (procedure) (no date) [facility] (missing) (missing) (missing) Result panel 4311 Specimen collection (procedure) (no date) [facility] (missing) (missing) (missing) Result panel 4312 Specimen collection (procedure) (no date) [facility] (missing) (missing) (missing) Result panel 4313 Specimen collection (procedure) (no date) [facility] (missing) (missing) (missing) Result panel 4314 Specimen collection (procedure) (no date) [facility] (missing) (missing) (missing) Result panel 4315 Specimen collection (procedure) (no date) [facility] (missing) (missing) (missing) Result panel 4316 Specimen collection (procedure) (no date) [facility] (missing) (missing) (missing) Result panel 4317 Specimen collection (procedure) (no date) [facility] (missing) (missing) (missing) Result panel 4318 Specimen collection (procedure) (no date) [facility] (missing) (missing) (missing) Result panel 4319 Specimen collection (procedure) (no date) [facility] (missing) (missing) (missing) Result panel 4320 Specimen collection (procedure) (no date) [facility] (missing) (missing) (missing) Result panel 4321 Specimen collection (procedure) (no date) [facility] (missing) (missing) (missing) Result panel 4322 Specimen collection (procedure) (no date) [facility] (missing) (missing) (missing) Result panel 4323 Specimen collection (procedure) (no date) [facility] (missing) (missing) (missing) Result panel 4324 Specimen collection (procedure) (no date) [facility] (missing) (missing) (missing) Result panel 4325 Specimen collection (procedure) (no date) [facility] (missing) (missing) (missing) Result panel 4326 Specimen collection (procedure) (no date) [facility] (missing) (missing) (missing) Result panel 4327 Specimen collection (procedure) (no date) [facility] (missing) (missing) (missing) Result panel 4328 Specimen collection (procedure) (no date) [facility] (missing) (missing) (missing) Result panel 4329 Specimen collection (procedure) (no date) [facility] (missing) (missing) (missing) Result panel 4330 Specimen collection (procedure) (no date) [facility] (missing) (missing) (missing) Result panel 4331 Specimen collection (procedure) (no date) [facility] (missing) (missing) (missing) Result panel 4332 Specimen collection (procedure) (no date) [facility] (missing) (missing) (missing) Result panel 4333 Specimen collection (procedure) (no date) [facility] (missing) (missing) (missing) Result panel 4334 Specimen collection (procedure) (no date) [facility] (missing) (missing) (missing) Result panel 4335 Specimen collection (procedure) (no date) [facility] (missing) (missing) (missing) Result panel 4336 Specimen collection (procedure) (no date) [facility] (missing) (missing) (missing) Result panel 4337 Specimen collection (procedure) (no date) [facility] (missing) (missing) (missing) Result panel 4338 Specimen collection (procedure) (no date) [facility] (missing) (missing) (missing) Result panel 4339 Specimen collection (procedure) (no date) [facility] (missing) (missing) (missing) Result panel 4340 Specimen collection (procedure) (no date) [facility] (missing) (missing) (missing) Result panel 4341 Specimen collection (procedure) (no date) [facility] (missing) (missing) (missing) Result panel 4342 Specimen collection (procedure) (no date) [facility] (missing) (missing) (missing) Result panel 4343 Specimen collection (procedure) (no date) [facility] (missing) (missing) (missing) Result panel 4344 Specimen collection (procedure) (no date) [facility] (missing) (missing) (missing) Result panel 4345 Specimen collection (procedure) (no date) [facility] (missing) (missing) (missing) Result panel 4346 Specimen collection (procedure) (no date) [facility] (missing) (missing) (missing) Result panel 4347 Specimen collection (procedure) (no date) [facility] (missing) (missing) (missing) Result panel 4348 Specimen collection (procedure) (no date) [facility] (missing) (missing) (missing) Result panel 4349 Specimen collection (procedure) (no date) [facility] (missing) (missing) (missing) Result panel 4350 Specimen collection (procedure) (no date) [facility] (missing) (missing) (missing) Result panel 4351 Specimen collection (procedure) (no date) [facility] (missing) (missing) (missing) Result panel 4352 Specimen collection (procedure) (no date) [facility] (missing) (missing) (missing) Result panel 4353 Specimen collection (procedure) (no date) [facility] (missing) (missing) (missing) Result panel 4354 Specimen collection (procedure) (no date) [facility] (missing) (missing) (missing) Result panel 4355 Specimen collection (procedure) (no date) [facility] (missing) (missing) (missing) Result panel 4356 Specimen collection (procedure) (no date) [facility] (missing) (missing) (missing) Result panel 4357 Specimen collection (procedure) (no date) [facility] (missing) (missing) (missing) Result panel 4358 Specimen collection (procedure) (no date) [facility] (missing) (missing) (missing) Result panel 4359 Specimen collection (procedure) (no date) [facility] (missing) (missing) (missing) Result panel 4360 Specimen collection (procedure) (no date) [facility] (missing) (missing) (missing) Result panel 4361 Specimen collection (procedure) (no date) [facility] (missing) (missing) (missing) Result panel 4362 Specimen collection (procedure) (no date) [facility] (missing) (missing) (missing) Result panel 4363 Specimen collection (procedure) (no date) [facility] (missing) (missing) (missing) Result panel 4364 Specimen collection (procedure) (no date) [facility] (missing) (missing) (missing) Result panel 4365 Specimen collection (procedure) (no date) [facility] (missing) (missing) (missing) Result panel 4366 Specimen collection (procedure) (no date) [facility] (missing) (missing) (missing) Result panel 4367 Specimen collection (procedure) (no date) [facility] (missing) (missing) (missing) Result panel 4368 Specimen collection (procedure) (no date) [facility] (missing) (missing) (missing) Result panel 4369 Specimen collection (procedure) (no date) [facility] (missing) (missing) (missing) Result panel 4370 Specimen collection (procedure) (no date) [facility] (missing) (missing) (missing) Result panel 4371 Specimen collection (procedure) (no date) [facility] (missing) (missing) (missing) Result panel 4372 Specimen collection (procedure) (no date) [facility] (missing) (missing) (missing) Result panel 4373 Specimen collection (procedure) (no date) [facility] (missing) (missing) (missing) Result panel 4374 Specimen collection (procedure) (no date) [facility] (missing) (missing) (missing) Result panel 4375 Specimen collection (procedure) (no date) [facility] (missing) (missing) (missing) Result panel 4376 Specimen collection (procedure) (no date) [facility] (missing) (missing) (missing) Result panel 4377 Specimen collection (procedure) (no date) [facility] (missing) (missing) (missing) Result panel 4378 Specimen collection (procedure) (no date) [facility] (missing) (missing) (missing) Result panel 4379 Specimen collection (procedure) (no date) [facility] (missing) (missing) (missing) Result panel 4380 Specimen collection (procedure) (no date) [facility] (missing) (missing) (missing) Result panel 4381 Specimen collection (procedure) (no date) [facility] (missing) (missing) (missing) Result panel 4382 Specimen collection (procedure) (no date) [facility] (missing) (missing) (missing) Result panel 4383 Specimen collection (procedure) (no date) [facility] (missing) (missing) (missing) Result panel 4384 Specimen collection (procedure) (no date) [facility] (missing) (missing) (missing) Result panel 4385 Specimen collection (procedure) (no date) [facility] (missing) (missing) (missing) Result panel 4386 Specimen collection (procedure) (no date) [facility] (missing) (missing) (missing) Result panel 4387 Specimen collection (procedure) (no date) [facility] (missing) (missing) (missing) Result panel 4388 Specimen collection (procedure) (no date) [facility] (missing) (missing) (missing) Result panel 4389 Specimen collection (procedure) (no date) [facility] (missing) (missing) (missing) Result panel 4390 Specimen collection (procedure) (no date) [facility] (missing) (missing) (missing) Result panel 4391 Specimen collection (procedure) (no date) [facility] (missing) (missing) (missing) Result panel 4392 Specimen collection (procedure) (no date) [facility] (missing) (missing) (missing) Result panel 4393 Specimen collection (procedure) (no date) [facility] (missing) (missing) (missing) Result panel 4394 Specimen collection (procedure) (no date) [facility] (missing) (missing) (missing) Result panel 4395 Specimen collection (procedure) (no date) [facility] (missing) (missing) (missing) Result panel 4396 Specimen collection (procedure) (no date) [facility] (missing) (missing) (missing) Result panel 4397 Specimen collection (procedure) (no date) [facility] (missing) (missing) (missing) Result panel 4398 Specimen collection (procedure) (no date) [facility] (missing) (missing) (missing) Result panel 4399 Specimen collection (procedure) (no date) [facility] (missing) (missing) (missing) Result panel 4400 Specimen collection (procedure) (no date) [facility] (missing) (missing) (missing) Result panel 4401 Specimen collection (procedure) (no date) [facility] (missing) (missing) (missing) Result panel 4402 Specimen collection (procedure) (no date) [facility] (missing) (missing) (missing) Result panel 4403 Specimen collection (procedure) (no date) [facility] (missing) (missing) (missing) Result panel 4404 Specimen collection (procedure) (no date) [facility] (missing) (missing) (missing) Result panel 4405 Specimen collection (procedure) (no date) [facility] (missing) (missing) (missing) Result panel 4406 Specimen collection (procedure) (no date) [facility] (missing) (missing) (missing) Result panel 4407 Specimen collection (procedure) (no date) [facility] (missing) (missing) (missing) Result panel 4408 Specimen collection (procedure) (no date) [facility] (missing) (missing) (missing) Result panel 4409 Specimen collection (procedure) (no date) [facility] (missing) (missing) (missing) Result panel 4410 Specimen collection (procedure) (no date) [facility] (missing) (missing) (missing) Result panel 4411 Specimen collection (procedure) (no date) [facility] (missing) (missing) (missing) Result panel 4412 Specimen collection (procedure) (no date) [facility] (missing) (missing) (missing) Result panel 4413 Specimen collection (procedure) (no date) [facility] (missing) (missing) (missing) Result panel 4414 Specimen collection (procedure) (no date) [facility] (missing) (missing) (missing) Result panel 4415 Specimen collection (procedure) (no date) [facility] (missing) (missing) (missing) Result panel 4416 Specimen collection (procedure) (no date) [facility] (missing) (missing) (missing) Result panel 4417 Specimen collection (procedure) (no date) [facility] (missing) (missing) (missing) Result panel 4418 Specimen collection (procedure) (no date) [facility] (missing) (missing) (missing) Result panel 4419 Specimen collection (procedure) (no date) [facility] (missing) (missing) (missing) Result panel 4420 Specimen collection (procedure) (no date) [facility] (missing) (missing) (missing) Result panel 4421 Specimen collection (procedure) (no date) [facility] (missing) (missing) (missing) Result panel 4422 Specimen collection (procedure) (no date) [facility] (missing) (missing) (missing) Result panel 4423 Specimen collection (procedure) (no date) [facility] (missing) (missing) (missing) Result panel 4424 Specimen collection (procedure) (no date) [facility] (missing) (missing) (missing) Result panel 4425 Specimen collection (procedure) (no date) [facility] (missing) (missing) (missing) Result panel 4426 Specimen collection (procedure) (no date) [facility] (missing) (missing) (missing) Result panel 4427 Specimen collection (procedure) (no date) [facility] (missing) (missing) (missing) Result panel 4428 Specimen collection (procedure) (no date) [facility] (missing) (missing) (missing) Result panel 4429 Specimen collection (procedure) (no date) [facility] (missing) (missing) (missing) Result panel 4430 Specimen collection (procedure) (no date) [facility] (missing) (missing) (missing) Result panel 4431 Specimen collection (procedure) (no date) [facility] (missing) (missing) (missing) Result panel 4432 Specimen collection (procedure) (no date) [facility] (missing) (missing) (missing) Result panel 4433 Specimen collection (procedure) (no date) [facility] (missing) (missing) (missing) Result panel 4434 Specimen collection (procedure) (no date) [facility] (missing) (missing) (missing) Result panel 4435 Specimen collection (procedure) (no date) [facility] (missing) (missing) (missing) Result panel 4436 Specimen collection (procedure) (no date) [facility] (missing) (missing) (missing) Result panel 4437 Specimen collection (procedure) (no date) [facility] (missing) (missing) (missing) Result panel 4438 Specimen collection (procedure) (no date) [facility] (missing) (missing) (missing) Result panel 4439 Specimen collection (procedure) (no date) [facility] (missing) (missing) (missing) Result panel 4440 Specimen collection (procedure) (no date) [facility] (missing) (missing) (missing) Result panel 4441 Specimen collection (procedure) (no date) [facility] (missing) (missing) (missing) Result panel 4442 Specimen collection (procedure) (no date) [facility] (missing) (missing) (missing) Result panel 4443 Specimen collection (procedure) (no date) [facility] (missing) (missing) (missing) Result panel 4444 Specimen collection (procedure) (no date) [facility] (missing) (missing) (missing) Result panel 4445 Specimen collection (procedure) (no date) [facility] (missing) (missing) (missing) Result panel 4446 Specimen collection (procedure) (no date) [facility] (missing) (missing) (missing) Result panel 4447 Specimen collection (procedure) (no date) [facility] (missing) (missing) (missing) Result panel 4448 Specimen collection (procedure) (no date) [facility] (missing) (missing) (missing) Result panel 4449 Specimen collection (procedure) (no date) [facility] (missing) (missing) (missing) Result panel 4450 Specimen collection (procedure) (no date) [facility] (missing) (missing) (missing) Result panel 4451 Specimen collection (procedure) (no date) [facility] (missing) (missing) (missing) Result panel 4452 Specimen collection (procedure) (no date) [facility] (missing) (missing) (missing) Result panel 4453 Specimen collection (procedure) (no date) [facility] (missing) (missing) (missing) Result panel 4454 Specimen collection (procedure) (no date) [facility] (missing) (missing) (missing) Result panel 4455 Specimen collection (procedure) (no date) [facility] (missing) (missing) (missing) Result panel 4456 Specimen collection (procedure) (no date) [facility] (missing) (missing) (missing) Result panel 4457 Specimen collection (procedure) (no date) [facility] (missing) (missing) (missing) Result panel 4458 Specimen collection (procedure) (no date) [facility] (missing) (missing) (missing) Result panel 4459 Specimen collection (procedure) (no date) [facility] (missing) (missing) (missing) Result panel 4460 Specimen collection (procedure) (no date) [facility] (missing) (missing) (missing) Result panel 4461 Specimen collection (procedure) (no date) [facility] (missing) (missing) (missing) Result panel 4462 Specimen collection (procedure) (no date) [facility] (missing) (missing) (missing) Result panel 4463 Specimen collection (procedure) (no date) [facility] (missing) (missing) (missing) Result panel 4464 Specimen collection (procedure) (no date) [facility] (missing) (missing) (missing) Result panel 4465 Specimen collection (procedure) (no date) [facility] (missing) (missing) (missing) Result panel 4466 Specimen collection (procedure) (no date) [facility] (missing) (missing) (missing) Result panel 4467 Specimen collection (procedure) (no date) [facility] (missing) (missing) (missing) Result panel 4468 Specimen collection (procedure) (no date) [facility] (missing) (missing) (missing) Result panel 4469 Specimen collection (procedure) (no date) [facility] (missing) (missing) (missing) Result panel 4470 Specimen collection (procedure) (no date) [facility] (missing) (missing) (missing) Result panel 4471 Specimen collection (procedure) (no date) [facility] (missing) (missing) (missing) Result panel 4472 Specimen collection (procedure) (no date) [facility] (missing) (missing) (missing) Result panel 4473 Specimen collection (procedure) (no date) [facility] (missing) (missing) (missing) Result panel 4474 Specimen collection (procedure) (no date) [facility] (missing) (missing) (missing) Result panel 4475 Specimen collection (procedure) (no date) [facility] (missing) (missing) (missing) Result panel 4476 Specimen collection (procedure) (no date) [facility] (missing) (missing) (missing) Result panel 4477 Specimen collection (procedure) (no date) [facility] (missing) (missing) (missing) Result panel 4478 Specimen collection (procedure) (no date) [facility] (missing) (missing) (missing) Result panel 4479 Specimen collection (procedure) (no date) [facility] (missing) (missing) (missing) Result panel 4480 Specimen collection (procedure) (no date) [facility] (missing) (missing) (missing) Result panel 4481 Specimen collection (procedure) (no date) [facility] (missing) (missing) (missing) Result panel 4482 Specimen collection (procedure) (no date) [facility] (missing) (missing) (missing) Result panel 4483 Specimen collection (procedure) (no date) [facility] (missing) (missing) (missing) Result panel 4484 Specimen collection (procedure) (no date) [facility] (missing) (missing) (missing) Result panel 4485 Specimen collection (procedure) (no date) [facility] (missing) (missing) (missing) Result panel 4486 Specimen collection (procedure) (no date) [facility] (missing) (missing) (missing) Result panel 4487 Specimen collection (procedure) (no date) [facility] (missing) (missing) (missing) Result panel 4488 Specimen collection (procedure) (no date) [facility] (missing) (missing) (missing) Result panel 4489 Albumin/Globulin [Mass Ratio] in Serum or Plasma 2025-04-15 16:18:08 [facility] 1.3 (miss ing) (missing) Result panel 4490 Lipase [Enzymatic activity/volume] in Serum or Plasma 2025-04-15 16:18:08 [facility] 83 U/L (miss ing) Result panel 4491 Procalcitonin [Mass/volume] in Serum or Plasma 2025-04-15 16:18:08 [facility] 0.038 ng/mL (missing) Result panel 4492 Serum prothrombin time 2025-04-15 16:18:08 [facility] 1 2.2 SECONDS (missing) Result panel 4493 INR in Platelet poor plasma by Coagulation assay 2025-04-15 16:18:08 [facility] 1.1 (missing) (miss ing) Result panel 4494 Thromboplastin time, partial (PTT); plasma or whole blood 2025-04-15 16:18:08 [facility] 32 SE CONDS (missing) Result panel 4495 D-dimer 2025-04-15 16:18:08 [facility] 426 ng/m l (missing) Result panel 4496 Creatine kinase [Enzymatic activity/volume] in Serum or Plasma 2025-04-15 16:18:08 [facility] 21 U/L (miss ing) Result panel 4497 Troponin I.cardiac [Mass/volume] in Serum or Plasma 2025-04-15 16:18:08 [facility] < 0.012 ng/mL (missing) (missing) Result panel 4498 Natriuretic peptide.B prohormone N-Terminal [Mass/volume] in Serum or Plasma 2025-04-15 16:18:08 [facility] 61 pg/mL (miss ing) Result panel 4499 Lactate [Mass/volume] in Serum or Plasma 2025-04-15 16:18:08 [facility] 1.2 mmol/L ([facility]) Result panel 4500 Bilirubin.total [Mass/volume ] in Serum or Plasma 2025-04-15 16:18:08 [facility] 0.7 mg/dL (missing) Result panel 4501 Aspartate aminotransferase [Enzymatic activity/volume] in Serum or Plasma 2025-04-15 16:18:08 [facility] 24 IU/L ([facility]) Result panel 4502 Alanine aminotransferase [Enzymatic activity/volume] in Serum or Plasma 2025-04-15 16:18:08 [facility] 17 IU/L ([facility]) Result panel 4503 Alkaline phosphatase [Enzyma tic activity/volume] in Serum or Plasma 2025-04-15 16:18:08 [facility] 112 U/L ([facility]) Result panel 4504 Protein total ser/plas 2025-04-15 16:18:08 [facility] 7 .3 g/dL (missing) Result panel 4505 Albumin [Mass/volume] in Ser um or Plasma 2025-04-15 16:18:08 [facility] 4.1 g/dL ([facility]) Result panel 4506 Globulin [Mass/volume] in Serum by calculation 2025-04-15 16:18:08 [facility] 3.2 g/dL (missing) Result panel 4507 Albumin/Globulin [Mass Ratio] in Serum or Plasma 2025-04-15 16:18:08 [facility] 1.3 ([facility]) (missing) Result panel 4508 Lipase [Enzymatic activity/volume] in Serum or Plasma 2025-04-15 16:18:08 [facility] 83 U/L ([facility]) Result panel 4509 Procalcitonin [Mass/volume] in Serum or Plasma 2025-04-15 16:18:08 [facility] 0.038 ng/mL (missing) Result panel 4510 Serum prothrombin time 2025-04-15 16:18:08 [facility] 1 2.2 SECONDS (missing) Result panel 4511 INR in Platelet poor plasma by Coagulation assay 2025-04-15 16:18:08 [facility] 1.1 (missing) ([facility]) Result panel 4512 Thromboplastin time, partial (PTT); plasma or whole blood 2025-04-15 16:18:08 [facility] 32 SE CONDS (missing) Result panel 4513 D-dimer 2025-04-15 16:18:08 [facility] 426 ng/m l (missing) Result panel 4514 Creatine kinase [Enzymatic activity/volume] in Serum or Plasma 2025-04-15 16:18:08 [facility] 21 U/L (miss ing) Result panel 4515 Troponin I.cardiac [Mass/volume] in Serum or Plasma 2025-04-15 16:18:08 [facility] < 0.012 ng/mL (missing) (missing) Result panel 4516 Natriuretic peptide.B prohormone N-Terminal [Mass/volume] in Serum or Plasma 2025-04-15 16:18:08 [facility] 61 pg/mL (miss ing) Result panel 4517 Lactate [Mass/volume] in Serum or Plasma 2025-04-15 16:18:08 [facility] 1.2 mmol/L (m issing) Result panel 4518 Bilirubin.total [Mass/volume ] in Serum or Plasma 2025-04-15 16:18:08 [facility] 0.7 mg/dL (missing) Result panel 4519 Aspartate aminotransferase [Enzymatic activity/volume] in Serum or Plasma 2025-04-15 16:18:08 [facility] 24 IU/L ( issing) Result panel 4520 Alanine aminotransferase [Enzymatic activity/volume] in Serum or Plasma 2025-04-15 16:18:08 [facility] 17 IU/L ( issing) Result panel 4521 Alkaline phosphatase [Enzyma tic activity/volume] in Serum or Plasma 2025-04-15 16:18:08 [facility] 112 U/L (miss ing) Result panel 4522 Protein total ser/plas 2025-04-15 16:18:08 [facility] 7 .3 g/dL (missing) Result panel 4523 Albumin [Mass/volume] in Ser um or Plasma 2025-04-15 16:18:08 [facility] 4.1 g/dL (miss ing) Result panel 4524 Globulin [Mass/volume] in Serum by calculation 2025-04-15 16:18:08 [facility] 3.2 g/dL (missing) Result panel 4525 Urine color determination 2025-04-15 16:47:08 [facility] Yellow (missing) (mis sing) Result panel 4526 Urine appearance 2025-04-15 16:47:08 [facility] Cloudy (missing) (missing) Result panel 4527 Urine pH measurement 2025-04-15 16:47:08 [facility] 7.0 (missing) (missing) Result panel 4528 Urine specific gravity measurement 2025-04-15 16:47:08 [facility] <=1.005 (missing) (missing) Result panel 4529 Urine protein measurement 2025-04-15 16:47:08 [facility] Negative (missing) (miss ing) Result panel 4530 Urine glucose measurement 2025-04-15 16:47:08 [facility] Negative g/dL (missing) (missing) Result panel 4531 Urine ketones measurement 2025-04-15 16:47:08 [facility] Negative (missing) (miss ing) Result panel 4532 Urine occult blood detection 2025-04-15 16:47:08 [facility] Trace-intact (missing) (missing) Result panel 4533 Urine nitrate measurement 2025-04-15 16:47:08 [facility] Negative (missing) (miss ing) Result panel 4534 Urine bilirubin measurement 2025-04-15 16:47:08 [facility] Negative (missing) (miss ing) Result panel 4535 Urine urobilinogen detection 2025-04-15 16:47:08 [facility] 1.0 E.U./dL (miss ing) Result panel 4536 Urine leukocyte esterase detection 2025-04-15 16:47:08 [facility] 3+ (missing) (miss ing) Result panel 4537 Microscopic analysis of urine for red blood cells (RBC) 2025-04-15 16:47:08 [facility] None seen (missing) (missing) Result panel 4538 Microscopic analysis of urine for white blood cells (WBC) 2025-04-15 16:47:08 [facility] 10-30/hpf (missing) (missing) Result panel 4539 Urine squamous epithelial cell detection 2025-04-15 16:47:08 [facility] None seen (missing) (miss ing) Result panel 4540 Amorphous urine sediment 2025-04-15 16:47:08 [facility] 1+ (missing) (missing) Result panel 4541 Urine color determination 2025-04-15 16:47:08 [facility] Yellow (missing) (mis sing) Result panel 4542 Urine appearance 2025-04-15 16:47:08 [facility] Cloudy (missing) (missing) Result panel 4543 Urine pH measurement 2025-04-15 16:47:08 [facility] 7.0 (missing) (missing) Result panel 4544 Urine specific gravity measurement 2025-04-15 16:47:08 [facility] <=1.005 (missing) (missing) Result panel 4545 Urine protein measurement 2025-04-15 16:47:08 [facility] Negative (missing) (miss ing) Result panel 4546 Urine glucose measurement 2025-04-15 16:47:08 [facility] Negative g/dL (missing) (missing) Result panel 4547 Urine ketones measurement 2025-04-15 16:47:08 [facility] Negative (missing) (miss ing) Result panel 4548 Urine occult blood detection 2025-04-15 16:47:08 [facility] Trace-intact (missing) (missing) Result panel 4549 Urine nitrate measurement 2025-04-15 16:47:08 [facility] Negative (missing) (miss ing) Result panel 4550 Urine bilirubin measurement 2025-04-15 16:47:08 [facility] Negative (missing) (miss ing) Result panel 4551 Urine urobilinogen detection 2025-04-15 16:47:08 [facility] 1.0 E.U./dL (miss ing) Result panel 4552 Urine leukocyte esterase detection 2025-04-15 16:47:08 [facility] 3+ (missing) (miss ing) Result panel 4553 Microscopic analysis of urine for red blood cells (RBC) 2025-04-15 16:47:08 [facility] None seen (missing) (missing) Result panel 4554 Microscopic analysis of urine for white blood cells (WBC) 2025-04-15 16:47:08 [facility] 10-30/hpf (missing) (missing) Result panel 4555 Urine squamous epithelial cell detection 2025-04-15 16:47:08 [facility] None seen (missing) (miss ing) Result panel 4556 Amorphous urine sediment 2025-04-15 16:47:08 [facility] 1+ (missing) (missing) Result panel 4557 Serum prothrombin time 2025-04-15 17:18:07 [facility] 1 2.2 SECONDS (missing) Result panel 4558 INR in Platelet poor plasma by Coagulation assay 2025-04-15 17:18:07 [facility] 1.1 (missing) (miss ing) Result panel 4559 Thromboplastin time, partial (PTT); plasma or whole blood 2025-04-15 17:18:07 [facility] 32 SE CONDS (missing) Result panel 4560 D-dimer 2025-04-15 17:18:07 [facility] 426 ng/m l (missing) Result panel 4561 Creatine kinase [Enzymatic activity/volume] in Serum or Plasma 2025-04-15 17:18:07 [facility] 21 U/L ([facility]) Result panel 4562 Troponin I.cardiac [Mass/volume] in Serum or Plasma 2025-04-15 17:18:07 [facility] < 0.012 ng/mL (missing) (missing) Result panel 4563 Natriuretic peptide.B prohormone N-Terminal [Mass/volume] in Serum or Plasma 2025-04-15 17:18:07 [facility] 61 pg/mL ([facility]) Result panel 4564 Lactate [Mass/volume] in Serum or Plasma 2025-04-15 17:18:07 [facility] 1.2 mmol/L ([facility]) Result panel 4565 Bilirubin.total [Mass/volume ] in Serum or Plasma 2025-04-15 17:18:07 [facility] 0.7 mg/dL (missing) Result panel 4566 Aspartate aminotransferase [Enzymatic activity/volume] in Serum or Plasma 2025-04-15 17:18:07 [facility] 24 IU/L ([facility]) Result panel 4567 Alanine aminotransferase [Enzymatic activity/volume] in Serum or Plasma 2025-04-15 17:18:07 [facility] 17 IU/L ([facility]) Result panel 4568 Alkaline phosphatase [Enzyma tic activity/volume] in Serum or Plasma 2025-04-15 17:18:07 [facility] 112 U/L ([facility]) Result panel 4569 Protein total ser/plas 2025-04-15 17:18:07 [facility] 7 .3 g/dL (missing) Result panel 4570 Albumin [Mass/volume] in Ser um or Plasma 2025-04-15 17:18:07 [facility] 4.1 g/dL ([facility]) Result panel 4571 Globulin [Mass/volume] in Serum by calculation 2025-04-15 17:18:07 [facility] 3.2 g/dL (missing) Result panel 4572 Albumin/Globulin [Mass Ratio] in Serum or Plasma 2025-04-15 17:18:07 [facility] 1.3 ([facility]) (missing) Result panel 4573 Lipase [Enzymatic activity/volume] in Serum or Plasma 2025-04-15 17:18:07 [facility] 83 U/L (miss ing) Result panel 4574 Procalcitonin [Mass/volume] in Serum or Plasma 2025-04-15 17:18:07 [facility] 0.038 ng/mL (missing) Result panel 4575 Serum prothrombin time 2025-04-15 17:18:07 [facility] 1 2.2 SECONDS (missing) Result panel 4576 INR in Platelet poor plasma by Coagulation assay 2025-04-15 17:18:07 [facility] 1.1 (missing) ([facility]) Result panel 4577 Thromboplastin time, partial (PTT); plasma or whole blood 2025-04-15 17:18:07 [facility] 32 SE CONDS (missing) Result panel 4578 D-dimer 2025-04-15 17:18:07 [facility] 426 ng/m l (missing) Result panel 4579 Creatine kinase [Enzymatic activity/volume] in Serum or Plasma 2025-04-15 17:18:07 [facility] 21 U/L ([facility]) Result panel 4580 Troponin I.cardiac [Mass/volume] in Serum or Plasma 2025-04-15 17:18:07 [facility] < 0.012 ng/mL (missing) (missing) Result panel 4581 Natriuretic peptide.B prohormone N-Terminal [Mass/volume] in Serum or Plasma 2025-04-15 17:18:07 [facility] 61 pg/mL (miss ing) Result panel 4582 Lactate [Mass/volume] in Serum or Plasma 2025-04-15 17:18:07 [facility] Result panel 4583 Bilirubin.total [Mass/volume ] in Serum or Plasma 2025-04-15 17:18:07 [facility] 0.7 mg/dL (missing) Result panel 4584 Aspartate aminotransferase [Enzymatic activity/volume] in Serum or Plasma 2025-04-15 17:18:07 [facility] 24 IU/L ( issing) Result panel 4585 Alanine aminotransferase [Enzymatic activity/volume] in Serum or Plasma 2025-04-15 17:18:07 [facility] 17 IU/L (m issing) Result panel 4586 Alkaline phosphatase [Enzyma tic activity/volume] in Serum or Plasma 2025-04-15 17:18:07 [facility] 112 U/L ([facility]) Result panel 4587 Protein total ser/plas 2025-04-15 17:18:07 [facility] 7 .3 g/dL (missing) Result panel 4588 Albumin [Mass/volume] in Ser um or Plasma 2025-04-15 17:18:07 [facility] 4.1 g/dL ([facility]) Result panel 4589 Globulin [Mass/volume] in Serum by calculation 2025-04-15 17:18:07 [facility] 3.2 g/dL (missing) Result panel 4590 Albumin/Globulin [Mass Ratio] in Serum or Plasma 2025-04-15 17:18:07 [facility] 1.3 ([facility]) (missing) Result panel 4591 Lipase [Enzymatic activity/volume] in Serum or Plasma 2025-04-15 17:18:07 [facility] 83 U/L ([facility]) Result panel 4592 Procalcitonin [Mass/volume] in Serum or Plasma 2025-04-15 17:18:07 [facility] 0.038 ng/mL (missing) Result panel 4593 Serum prothrombin time 2025-04-15 17:18:07 [facility] 1 2.2 SECONDS (missing) Result panel 4594 INR in Platelet poor plasma by Coagulation assay 2025-04-15 17:18:07 [facility] 1.1 (missing) ([facility]) Result panel 4595 Thromboplastin time, partial (PTT); plasma or whole blood 2025-04-15 17:18:07 [facility] 32 SE CONDS (missing) Result panel 4596 D-dimer 2025-04-15 17:18:07 [facility] 426 ng/m l (missing) Result panel 4597 Creatine kinase [Enzymatic activity/volume] in Serum or Plasma 2025-04-15 17:18:07 [facility] 21 U/L ([facility]) Result panel 4598 Troponin I.cardiac [Mass/volume] in Serum or Plasma 2025-04-15 17:18:07 [facility] < 0.012 ng/mL (missing) (missing) Result panel 4599 Natriuretic peptide.B prohormone N-Terminal [Mass/volume] in Serum or Plasma 2025-04-15 17:18:07 [facility] 61 pg/mL ([facility]) Result panel 4600 Lactate [Mass/volume] in Serum or Plasma 2025-04-15 17:18:07 [facility] 1.2 mmol/L ([facility]) Result panel 4601 Bilirubin.total [Mass/volume ] in Serum or Plasma 2025-04-15 17:18:07 [facility] 0.7 mg/dL (missing) Result panel 4602 Aspartate aminotransferase [Enzymatic activity/volume] in Serum or Plasma 2025-04-15 17:18:07 [facility] 24 IU/L ([facility]) Result panel 4603 Alanine aminotransferase [Enzymatic activity/volume] in Serum or Plasma 2025-04-15 17:18:07 [facility] 17 IU/L ([facility]) Result panel 4604 Alkaline phosphatase [Enzyma tic activity/volume] in Serum or Plasma 2025-04-15 17:18:07 [facility] 112 U/L ([facility]) Result panel 4605 Protein total ser/plas 2025-04-15 17:18:07 [facility] 7 .3 g/dL (missing) Result panel 4606 Albumin [Mass/volume] in Ser um or Plasma 2025-04-15 17:18:07 [facility] 4.1 g/dL ([facility]) Result panel 4607 Globulin [Mass/volume] in Serum by calculation 2025-04-15 17:18:07 [facility] 3.2 g/dL (missing) Result panel 4608 Albumin/Globulin [Mass Ratio] in Serum or Plasma 2025-04-15 17:18:07 [facility] 1.3 ([facility]) (missing) Result panel 4609 Lipase [Enzymatic activity/volume] in Serum or Plasma 2025-04-15 17:18:07 [facility] 83 U/L ([facility]) Result panel 4610 Procalcitonin [Mass/volume] in Serum or Plasma 2025-04-15 17:18:07 [facility] 0.038 ng/mL (missing) Result panel 4611 Serum prothrombin time 2025-04-15 17:18:07 [facility] 1 2.2 SECONDS (missing) Result panel 4612 INR in Platelet poor plasma by Coagulation assay 2025-04-15 17:18:07 [facility] 1.1 (missing) (miss ing) Result panel 4613 Thromboplastin time, partial (PTT); plasma or whole blood 2025-04-15 17:18:07 [facility] 32 SE CONDS (missing) Result panel 4614 D-dimer 2025-04-15 17:18:07 [facility] 426 ng/m l (missing) Result panel 4615 Creatine kinase [Enzymatic activity/volume] in Serum or Plasma 2025-04-15 17:18:07 [facility] 21 U/L ([facility]) Result panel 4616 Troponin I.cardiac [Mass/volume] in Serum or Plasma 2025-04-15 17:18:07 [facility] < 0.012 ng/mL (missing) (missing) Result panel 4617 Natriuretic peptide.B prohormone N-Terminal [Mass/volume] in Serum or Plasma 2025-04-15 17:18:07 [facility] 61 pg/mL ([facility]) Result panel 4618 Lactate [Mass/volume] in Serum or Plasma 2025-04-15 17:18:07 [facility] 1.2 mmol/L ([facility]) Result panel 4619 Bilirubin.total [Mass/volume ] in Serum or Plasma 2025-04-15 17:18:07 [facility] 0.7 mg/dL (missing) Result panel 4620 Aspartate aminotransferase [Enzymatic activity/volume] in Serum or Plasma 2025-04-15 17:18:07 [facility] 24 IU/L ([facility]) Result panel 4621 Alanine aminotransferase [Enzymatic activity/volume] in Serum or Plasma 2025-04-15 17:18:07 [facility] 17 IU/L ([facility]) Result panel 4622 Alkaline phosphatase [Enzyma tic activity/volume] in Serum or Plasma 2025-04-15 17:18:07 [facility] 112 U[facility]L [facility] Result panel 4623 Protein total ser/plas 2025-04-15 17:18:07 [facility] 7 .3 g/dL (missing) Result panel 4624 Albumin [Mass/volume] in Ser um or Plasma 2025-04-15 17:18:07 [facility] 4.1 g/dL (miss ing) Result panel 4625 Globulin [Mass/volume] in Serum by calculation 2025-04-15 17:18:07 [facility] 3.2 g/dL (missing) Result panel 4626 Albumin/Globulin [Mass Ratio] in Serum or Plasma 2025-04-15 17:18:07 [facility] 1.3 ([facility]) (missing) Result panel 4627 Lipase [Enzymatic activity/volume] in Serum or Plasma 2025-04-15 17:18:07 [facility] 83 U/L ([facility]) Result panel 4628 Procalcitonin [Mass/volume] in Serum or Plasma 2025-04-15 17:18:07 [facility] 0.038 ng/mL (missing) Result panel 4629 Serum prothrombin time 2025-04-15 17:18:07 [facility] 1 2.2 SECONDS (missing) Result panel 4630 INR in Platelet poor plasma by Coagulation assay 2025-04-15 17:18:07 [facility] 1.1 (missing) ([facility]) Result panel 4631 Thromboplastin time, partial (PTT); plasma or whole blood 2025-04-15 17:18:07 [facility] 32 SE CONDS (missing) Result panel 4632 D-dimer 2025-04-15 17:18:07 [facility] 426 ng/m l (missing) Result panel 4633 Creatine kinase [Enzymatic activity/volume] in Serum or Plasma 2025-04-15 17:18:07 [facility] 21 U/L ([facility]) Result panel 4634 Troponin I.cardiac [Mass/volume] in Serum or Plasma 2025-04-15 17:18:07 [facility] < 0.012 ng/mL (missing) (missing) Result panel 4635 Natriuretic peptide.B prohormone N-Terminal [Mass/volume] in Serum or Plasma 2025-04-15 17:18:07 [facility] 61 pg/mL ([facility]) Result panel 4636 Lactate [Mass/volume] in Serum or Plasma 2025-04-15 17:18:07 [facility] 1.2 mmol/L ([facility]) Result panel 4637 Bilirubin.total [Mass/volume ] in Serum or Plasma 2025-04-15 17:18:07 [facility] 0.7 mg/dL (missing) Result panel 4638 Aspartate aminotransferase [Enzymatic activity/volume] in Serum or Plasma 2025-04-15 17:18:07 [facility] 24 IU/L ([facility]) Result panel 4639 Alanine aminotransferase [Enzymatic activity/volume] in Serum or Plasma 2025-04-15 17:18:07 [facility] 17 IU/L (m issing) Result panel 4640 Alkaline phosphatase [Enzyma tic activity/volume] in Serum or Plasma 2025-04-15 17:18:07 [facility] 112 U/L ([facility]) Result panel 4641 Protein total ser/plas 2025-04-15 17:18:07 [facility] 7 .3 g/dL (missing) Result panel 4642 Albumin [Mass/volume] in Ser um or Plasma 2025-04-15 17:18:07 [facility] 4.1 g/dL ([facility]) Result panel 4643 Globulin [Mass/volume] in Serum by calculation 2025-04-15 17:18:07 [facility] 3.2 g/dL (missing) Result panel 4644 Albumin/Globulin [Mass Ratio] in Serum or Plasma 2025-04-15 17:18:07 [facility] 1.3 ([facility]) (missing) Result panel 4645 Lipase [Enzymatic activity/volume] in Serum or Plasma 2025-04-15 17:18:07 [facility] 83 U/L ([facility]) Result panel 4646 Procalcitonin [Mass/volume] in Serum or Plasma 2025-04-15 17:18:07 [facility] 0.038 ng/mL (missing) Result panel 4647 Serum prothrombin time 2025-04-15 17:18:07 [facility] 1 2.2 SECONDS (missing) Result panel 4648 INR in Platelet poor plasma by Coagulation assay 2025-04-15 17:18:07 [facility] 1.1 (missing) ([facility]) Result panel 4649 Thromboplastin time, partial (PTT); plasma or whole blood 2025-04-15 17:18:07 [facility] 32 SE CONDS (missing) Result panel 4650 D-dimer 2025-04-15 17:18:07 [facility] 426 ng/m l (missing) Result panel 4651 Creatine kinase [Enzymatic activity/volume] in Serum or Plasma 2025-04-15 17:18:07 [facility] 21 U/L ([facility]) Result panel 4652 Troponin I.cardiac [Mass/volume] in Serum or Plasma 2025-04-15 17:18:07 [facility] < 0.012 ng/mL (missing) (missing) Result panel 4653 Natriuretic peptide.B prohormone N-Terminal [Mass/volume] in Serum or Plasma 2025-04-15 17:18:07 [facility] 61 pg/mL ([facility]) Result panel 4654 Lactate [Mass/volume] in Serum or Plasma 2025-04-15 17:18:07 [facility] 1.2 mmol/L ([facility]) Result panel 4655 Bilirubin.total [Mass/volume ] in Serum or Plasma 2025-04-15 17:18:07 [facility] 0.7 mg/dL (missing) Result panel 4656 Aspartate aminotransferase [Enzymatic activity/volume] in Serum or Plasma 2025-04-15 17:18:07 [facility] 24 IU/L ([facility]) Result panel 4657 Alanine aminotransferase [Enzymatic activity/volume] in Serum or Plasma 2025-04-15 17:18:07 [facility] 17 IU/L ([facility]) Result panel 4658 Alkaline phosphatase [Enzyma tic activity/volume] in Serum or Plasma 2025-04-15 17:18:07 [facility] 112 U/L ([facility]) Result panel 4659 Protein total ser/plas 2025-04-15 17:18:07 [facility] 7 .3 g/dL (missing) Result panel 4660 Albumin [Mass/volume] in Ser um or Plasma 2025-04-15 17:18:07 [facility] 4.1 g/dL ([facility]) Result panel 4661 Globulin [Mass/volume] in Serum by calculation 2025-04-15 17:18:07 [facility] 3.2 g/dL (missing) Result panel 4662 Albumin/Globulin [Mass Ratio] in Serum or Plasma 2025-04-15 17:18:07 [facility] 1.3 ([facility]) (missing) Result panel 4663 Lipase [Enzymatic activity/volume] in Serum or Plasma 2025-04-15 17:18:07 [facility] 83 U/L ([facility]) Result panel 4664 Procalcitonin [Mass/volume] in Serum or Plasma 2025-04-15 17:18:07 [facility] 0.038 ng/mL (missing) Result panel 4665 Serum prothrombin time 2025-04-15 17:18:07 [facility] 1 2.2 SECONDS (missing) Result panel 4666 INR in Platelet poor plasma by Coagulation assay 2025-04-15 17:18:07 [facility] 1.1 (missing) (miss ing) Result panel 4667 Thromboplastin time, partial (PTT); plasma or whole blood 2025-04-15 17:18:07 [facility] 32 SE CONDS (missing) Result panel 4668 D-dimer 2025-04-15 17:18:07 [facility] 426 ng/m l (missing) Result panel 4669 Serum prothrombin time 2025-04-15 17:18:07 [facility] 1 2.2 SECONDS (missing) Result panel 4670 INR in Platelet poor plasma by Coagulation assay 2025-04-15 17:18:07 [facility] 1.1 (missing) (miss ing) Result panel 4671 Thromboplastin time, partial (PTT); plasma or whole blood 2025-04-15 17:18:07 [facility] 32 SE CONDS (missing) Result panel 4672 D-dimer 2025-04-15 17:18:07 [facility] 426 ng/m l (missing) Result panel 4673 Creatine kinase [Enzymatic activity/volume] in Serum or Plasma 2025-04-15 17:18:07 [facility] 21 U/L (miss [facility]) Result panel 4674 Troponin I.cardiac [Mass/volume] in Serum or Plasma 2025-04-15 17:18:07 [facility] < 0.012 ng/mL (missing) (missing) Result panel 4675 Natriuretic peptide.B prohormone N-Terminal [Mass/volume] in Serum or Plasma 2025-04-15 17:18:07 [facility] 61 pg/mL (miss ing) Result panel 4676 Lactate [Mass/volume] in Serum or Plasma 2025-04-15 17:18:07 [facility] 1.2 mmol/L ([facility]) Result panel 4677 Bilirubin.total [Mass/volume ] in Serum or Plasma 2025-04-15 17:18:07 [facility] 0.7 mg/dL (missing) Result panel 4678 Aspartate aminotransferase [Enzymatic activity/volume] in Serum or Plasma 2025-04-15 17:18:07 [facility] Result panel 4679 Alanine aminotransferase [Enzymatic activity/volume] in Serum or Plasma 2025-04-15 17:18:07 [facility] 17 IU/L [facility] Result panel 4680 Alkaline phosphatase [Enzyma tic activity/volume] in Serum or Plasma 2025-04-15 17:18:07 [facility] 112 U/L (miss ing) Result panel 4681 Protein total ser/plas 2025-04-15 17:18:07 [facility] 7 .3 g/dL (missing) Result panel 4682 Albumin [Mass/volume] in Ser um or Plasma 2025-04-15 17:18:07 [facility] 4.1 g/dL ([facility]) Result panel 4683 Globulin [Mass/volume] in Serum by calculation 2025-04-15 17:18:07 [facility] 3.2 g/dL (missing) Result panel 4684 Albumin/Globulin [Mass Ratio] in Serum or Plasma 2025-04-15 17:18:07 [facility] 1.3 ([facility]) (missing) Result panel 4685 Lipase [Enzymatic activity/volume] in Serum or Plasma 2025-04-15 17:18:07 [facility] 83 U/L ([facility]) Result panel 4686 Procalcitonin [Mass/volume] in Serum or Plasma 2025-04-15 17:18:07 [facility] 0.038 ng/mL (missing) Result panel 4687 Creatine kinase [Enzymatic activity/volume] in Serum or Plasma 2025-04-15 17:18:07 [facility] 21 U/L ([facility]) Result panel 4688 Troponin I.cardiac [Mass/volume] in Serum or Plasma 2025-04-15 17:18:07 [facility] < 0.012 ng/mL (missing) (missing) Result panel 4689 Natriuretic peptide.B prohormone N-Terminal [Mass/volume] in Serum or Plasma 2025-04-15 17:18:07 [facility] 61 pg/mL ([facility]) Result panel 4690 Lactate [Mass/volume] in Serum or Plasma 2025-04-15 17:18:07 [facility] 1.2 mmol/L ([facility]) Result panel 4691 Bilirubin.total [Mass/volume ] in Serum or Plasma 2025-04-15 17:18:07 [facility] 0.7 mg/dL (missing) Result panel 4692 Aspartate aminotransferase [Enzymatic activity/volume] in Serum or Plasma 2025-04-15 17:18:07 [facility] Result panel 4693 Alanine aminotransferase [Enzymatic activity/volume] in Serum or Plasma 2025-04-15 17:18:07 [facility] 17 IU/L ([facility]) Result panel 4694 Alkaline phosphatase [Enzyma tic activity/volume] in Serum or Plasma 2025-04-15 17:18:07 [facility] 112 U/L ([facility]) Result panel 4695 Protein total ser/plas 2025-04-15 17:18:07 [facility] 7 .3 g/dL (missing) Result panel 4696 Albumin [Mass/volume] in Ser um or Plasma 2025-04-15 17:18:07 [facility] 4.1 g/dL (miss ing) Result panel 4697 Globulin [Mass/volume] in Serum by calculation 2025-04-15 17:18:07 [facility] 3.2 g/dL (missing) Result panel 4698 Albumin/Globulin [Mass Ratio] in Serum or Plasma 2025-04-15 17:18:07 [facility] 1.3 ([facility]) (missing) Result panel 4699 Lipase [Enzymatic activity/volume] in Serum or Plasma 2025-04-15 17:18:07 [facility] 83 U/L ([facility]) Result panel 4700 Procalcitonin [Mass/volume] in Serum or Plasma 2025-04-15 17:18:07 [facility] 0.038 ng/mL (missing) Result panel 4701 Serum prothrombin time 2025-04-15 17:18:07 [facility] 1 2.2 SECONDS (missing) Result panel 4702 INR in Platelet poor plasma by Coagulation assay 2025-04-15 17:18:07 [facility] 1.1 (missing) ([facility]) Result panel 4703 Thromboplastin time, partial (PTT); plasma or whole blood 2025-04-15 17:18:07 [facility] 32 SE CONDS (missing) Result panel 4704 D-dimer 2025-04-15 17:18:07 [facility] 426 ng/m l (missing) Result panel 4705 Creatine kinase [Enzymatic activity/volume] in Serum or Plasma 2025-04-15 17:18:07 [facility] 21 U/L (miss ing) Result panel 4706 Troponin I.cardiac [Mass/volume] in Serum or Plasma 2025-04-15 17:18:07 [facility] < 0.012 ng/mL (missing) (missing) Result panel 4707 Natriuretic peptide.B prohormone N-Terminal [Mass/volume] in Serum or Plasma 2025-04-15 17:18:07 [facility] 61 pg/mL ([facility]) Result panel 4708 Lactate [Mass/volume] in Serum or Plasma 2025-04-15 17:18:07 [facility] 1.2 mmol/L ([facility]) Result panel 4709 Bilirubin.total [Mass/volume ] in Serum or Plasma 2025-04-15 17:18:07 [facility] 0.7 mg/dL (missing) Result panel 4710 Aspartate aminotransferase [Enzymatic activity/volume] in Serum or Plasma 2025-04-15 17:18:07 [facility] 24 IU/L ([facility]) Result panel 4711 Alanine aminotransferase [Enzymatic activity/volume] in Serum or Plasma 2025-04-15 17:18:07 [facility] 17 IU/L ([facility]) Result panel 4712 Alkaline phosphatase [Enzyma tic activity/volume] in Serum or Plasma 2025-04-15 17:18:07 [facility] 112 U/L ([facility]) Result panel 4713 Protein total ser/plas 2025-04-15 17:18:07 [facility] 7 .3 g/dL (missing) Result panel 4714 Albumin [Mass/volume] in Ser um or Plasma 2025-04-15 17:18:07 [facility] 4.1 g/dL ([facility]) Result panel 4715 Globulin [Mass/volume] in Serum by calculation 2025-04-15 17:18:07 [facility] 3.2 g/dL (missing) Result panel 4716 Albumin/Globulin [Mass Ratio] in Serum or Plasma 2025-04-15 17:18:07 [facility] 1.3 ([facility]) (missing) Result panel 4717 Lipase [Enzymatic activity/volume] in Serum or Plasma 2025-04-15 17:18:07 [facility] 83 U[facility]L [facility] Result panel 4718 Procalcitonin [Mass/volume] in Serum or Plasma 2025-04-15 17:18:07 [facility] 0.038 ng/mL (missing) Result panel 4719 Serum prothrombin time 2025-04-15 17:18:07 [facility] 1 2.2 SECONDS (missing) Result panel 4720 INR in Platelet poor plasma by Coagulation assay 2025-04-15 17:18:07 [facility] 1.1 (missing) ([facility]) Result panel 4721 Thromboplastin time, partial (PTT); plasma or whole blood 2025-04-15 17:18:07 [facility] 32 SE CONDS (missing) Result panel 4722 D-dimer 2025-04-15 17:18:07 [facility] 426 ng/m l (missing) Result panel 4723 Creatine kinase [Enzymatic activity/volume] in Serum or Plasma 2025-04-15 17:18:07 [facility] 21 U/L (miss ing) Result panel 4724 Troponin I.cardiac [Mass/volume] in Serum or Plasma 2025-04-15 17:18:07 [facility] < 0.012 ng/mL (missing) (missing) Result panel 4725 Natriuretic peptide.B prohormone N-Terminal [Mass/volume] in Serum or Plasma 2025-04-15 17:18:07 [facility] 61 [facility] Result panel 4726 Lactate [Mass/volume] in Serum or Plasma 2025-04-15 17:18:07 [facility] 1.2 mmol/L [facility] Result panel 4727 Bilirubin.total [Mass/volume ] in Serum or Plasma 2025-04-15 17:18:07 [facility] 0.7 mg/dL (missing) Result panel 4728 Aspartate aminotransferase [Enzymatic activity/volume] in Serum or Plasma 2025-04-15 17:18:07 [facility] 24 IU/L [facility] Result panel 4729 Alanine aminotransferase [Enzymatic activity/volume] in Serum or Plasma 2025-04-15 17:18:07 [facility] 17 IU/L [facility] Result panel 4730 Alkaline phosphatase [Enzyma tic activity/volume] in Serum or Plasma 2025-04-15 17:18:07 [facility] 112 U/L ([facility]) Result panel 4731 Protein total ser/plas 2025-04-15 17:18:07 [facility] 7 .3 g/dL (missing) Result panel 4732 Albumin [Mass/volume] in Ser um or Plasma 2025-04-15 17:18:07 [facility] 4.1 g/dL (miss ing) Result panel 4733 Globulin [Mass/volume] in Serum by calculation 2025-04-15 17:18:07 [facility] 3.2 g/dL (missing) Result panel 4734 Albumin/Globulin [Mass Ratio] in Serum or Plasma 2025-04-15 17:18:07 [facility] 1.3 (miss ing) (missing) Result panel 4735 Lipase [Enzymatic activity/volume] in Serum or Plasma 2025-04-15 17:18:07 [facility] 83 U/L ([facility]) Result panel 4736 Procalcitonin [Mass/volume] in Serum or Plasma 2025-04-15 17:18:07 [facility] 0.038 ng/mL (missing) Result panel 4737 Serum prothrombin time 2025-04-15 17:18:07 [facility] 1 2.2 SECONDS (missing) Result panel 4738 INR in Platelet poor plasma by Coagulation assay 2025-04-15 17:18:07 [facility] 1.1 (missing) ([facility]) Result panel 4739 Thromboplastin time, partial (PTT); plasma or whole blood 2025-04-15 17:18:07 [facility] 32 SE CONDS (missing) Result panel 4740 D-dimer 2025-04-15 17:18:07 [facility] 426 ng/m l (missing) Result panel 4741 Creatine kinase [Enzymatic activity/volume] in Serum or Plasma 2025-04-15 17:18:07 [facility] 21 U/L ([facility]) Result panel 4742 Troponin I.cardiac [Mass/volume] in Serum or Plasma 2025-04-15 17:18:07 [facility] < 0.012 ng/mL (missing) (missing) Result panel 4743 Natriuretic peptide.B prohormone N-Terminal [Mass/volume] in Serum or Plasma 2025-04-15 17:18:07 [facility] 61 pg/mL ([facility]) Result panel 4744 Lactate [Mass/volume] in Serum or Plasma 2025-04-15 17:18:07 [facility] 1.2 mmol/L ([facility]) Result panel 4745 Bilirubin.total [Mass/volume ] in Serum or Plasma 2025-04-15 17:18:07 [facility] 0.7 mg/dL (missing) Result panel 4746 Aspartate aminotransferase [Enzymatic activity/volume] in Serum or Plasma 2025-04-15 17:18:07 [facility] 24 IU/L [facility] Result panel 4747 Alanine aminotransferase [Enzymatic activity/volume] in Serum or Plasma 2025-04-15 17:18:07 [facility] 17 IU/L ([facility]) Result panel 4748 Alkaline phosphatase [Enzyma tic activity/volume] in Serum or Plasma 2025-04-15 17:18:07 [facility] 112 U/L (miss ing) Result panel 4749 Protein total ser/plas 2025-04-15 17:18:07 [facility] 7 .3 g/dL (missing) Result panel 4750 Albumin [Mass/volume] in Ser um or Plasma 2025-04-15 17:18:07 [facility] 4.1 g/dL (miss ing) Result panel 4751 Globulin [Mass/volume] in Serum by calculation 2025-04-15 17:18:07 [facility] 3.2 g/dL (missing) Result panel 4752 Albumin/Globulin [Mass Ratio] in Serum or Plasma 2025-04-15 17:18:07 [facility] 1.3 ([facility]) (missing) Result panel 4753 Lipase [Enzymatic activity/volume] in Serum or Plasma 2025-04-15 17:18:07 [facility] 83 U/L (miss ing) Result panel 4754 Procalcitonin [Mass/volume] in Serum or Plasma 2025-04-15 17:18:07 [facility] 0.038 ng/mL (missing) Result panel 4755 Serum prothrombin time 2025-04-15 17:18:07 [facility] 1 2.2 SECONDS (missing) Result panel 4756 INR in Platelet poor plasma by Coagulation assay 2025-04-15 17:18:07 [facility] 1.1 (missing) (miss ing) Result panel 4757 Thromboplastin time, partial (PTT); plasma or whole blood 2025-04-15 17:18:07 [facility] 32 SE CONDS (missing) Result panel 4758 D-dimer 2025-04-15 17:18:07 [facility] 426 ng/m l (missing) Result panel 4759 Creatine kinase [Enzymatic activity/volume] in Serum or Plasma 2025-04-15 17:18:07 [facility] 21 U/L (miss ing) Result panel 4760 Troponin I.cardiac [Mass/volume] in Serum or Plasma 2025-04-15 17:18:07 [facility] < 0.012 ng/mL (missing) (missing) Result panel 4761 Natriuretic peptide.B prohormone N-Terminal [Mass/volume] in Serum or Plasma 2025-04-15 17:18:07 [facility] 61 pg/mL (miss ing) Result panel 4762 Lactate [Mass/volume] in Serum or Plasma 2025-04-15 17:18:07 [facility] 1.2 mmol/L ([facility]) Result panel 4763 Bilirubin.total [Mass/volume ] in Serum or Plasma 2025-04-15 17:18:07 [facility] 0.7 mg/dL (missing) Result panel 4764 Aspartate aminotransferase [Enzymatic activity/volume] in Serum or Plasma 2025-04-15 17:18:07 [facility] 24 IU/L ([facility]) Result panel 4765 Alanine aminotransferase [Enzymatic activity/volume] in Serum or Plasma 2025-04-15 17:18:07 [facility] 17 IU/L ([facility]) Result panel 4766 Alkaline phosphatase [Enzyma tic activity/volume] in Serum or Plasma 2025-04-15 17:18:07 [facility] 112 U/L ([facility]) Result panel 4767 Protein total ser/plas 2025-04-15 17:18:07 [facility] 7 .3 g/dL (missing) Result panel 4768 Albumin [Mass/volume] in Ser um or Plasma 2025-04-15 17:18:07 [facility] 4.1 g/dL ([facility]) Result panel 4769 Globulin [Mass/volume] in Serum by calculation 2025-04-15 17:18:07 [facility] 3.2 g/dL (missing) Result panel 4770 Albumin/Globulin [Mass Ratio] in Serum or Plasma 2025-04-15 17:18:07 [facility] 1.3 ([facility]) (missing) Result panel 4771 Lipase [Enzymatic activity/volume] in Serum or Plasma 2025-04-15 17:18:07 [facility] 83 U/L ([facility]) Result panel 4772 Procalcitonin [Mass/volume] in Serum or Plasma 2025-04-15 17:18:07 [facility] 0.038 ng/mL (missing) Result panel 4773 Basophils Percent Auto 2025-04-15 17:28 [facility] 0.5 % (missing) Basophils Absolute Auto 2025-04-15 17:28 [facility] 100 /ul (missing) White Blood Cell Count 2025-04-15 17:28 [facility] 11.9 x10 3/ul (missing) Red Cell Distribution Width 2025-04-15 17:28 [facility] 13.4 % (missing) Hemoglobin 2025-04-15 17:[address] [place] [address] 13.5 g/dl (missing) Platelet Count 2025-04-15 17:[address] [place] [address] 274 x1 0 3/ul (missing) Eosinophils Percent Auto 2025-04-15 17:28 [facility] 3. 5 % (missing) Mean Corpuscular Hemoglobin 2025-04-15 17:[address] [place] [address] 30.0 pg (missing) Lymphocytes Percent Auto 2025-04-15 17:[address] [place] [address] 30 .6 % (missing) Mean Corpuscular HGB Conc 2025-04-15 17:28 [facility] 3 3.5 % (missing) Lymphocytes Absolute Auto 2025-04-15 17:[address] [place] [address] 3 600 /ul (missing) Red Blood Cell Count 2025-04-15 17:[address] [place] [address] 4.50 x10 6/ul (missing) Hematocrit 2025-04-15 17:[address] [place] [address] 40.4 % (missing) Eosinophils Absolute Auto 2025-04-15 17:[address] [place] [address] 4 00 /ul (missing) Monocytes Percent Auto 2025-04-15 17:[address] [place] [address] 5.9 % (missing) Neutrophils Percent Auto 2025-04-15 17:[address] [place] [address] 59 .5 % (missing) Monocytes Absolute Auto 2025-04-15 17:[address] [place] [address] 700 /ul (missing) Neutrophils Absolute Auto 2025-04-15 17:[address] [place] [address] 7 100 /ul (missing) Mean Corpuscular Volume 2025-04-15 17:[address] [place] [address] 89. 7 fl (missing) Result panel 4774 INR 2025-04-15 17:[address] [place] [address] 1.1 (in g) (missing) Prothrombin Time 2025-04-15 17:[address] [place] [address] 12.2 seconds Comment If patient is on warfarin PTT Partial Thromboplastin Bernard 2025-04-15 17:[address] [place] [address] 32 seconds Co mment If patient is on warfarin Adjunctive to Coronary Thrombosis Heparin (0.1 - 0.3 UI/mL) = 40.8 - 62.7 seconds Heparin (0.3 - 0.7 UI/mL) = 62.7 - 106.4 seconds. Result panel 4775 Lactate (Lactic Acid) 2025-04-15 17:[address] [place] [address] 1.2 mmol/l Yes/No query for Sepsis Lactate Rule Y Result panel 4776 Bilirubin Total 2025-04-15 17:41 [facility] 0.7 mg/dl (missing) Creatinine 2025-04-15 17:41 [facility] 1.14 mg/dl (missing) Albumin Globulin Ratio 2025-04-15 17:41 [facility] 1.3 (missing) (missing) Alkaline Phosphatase 2025-04-15 17:41 [facility] 112 u/l (missing) Sodium 2025-04-15 17:41 [facility] 134 mmol/l Physician Instructions if pt has history of CHF Glucose 2025-04-15 17:41 [facility] 144 mg/dl (missing) Alanine Aminotransferase 2025-04-15 17:41 [facility] 17 iu/l (missing) Creatine Kinase 2025-04-15 17:41 [facility] 21 u/l Physician Instructions if pt has history of CHF Aspartate Aminotransferase 2025-04-15 17:41 [facility] 24 iu/l (missing) BUN Creatinine Ratio 2025-04-15 17:[address] [place] [address] 27.2 (missing) (missing) Magnesium 2025-04-15 17:41 [facility] 3.1 mg/dl Physician Instructions if pt has history of CHF Globulin 2025-04-15 17:41 [facility] 3.2 g/dl (missing) Blood Urea Nitrogen 2025-04-15 17:[address] [place] [address] 31 mg/dl (missing) Carbon Dioxide 2025-04-15 17:41 [facility] 31 mmol/l (missing) Albumin 2025-04-15 17:41 [facility] 4.1 g/dl (missing) Potassium 2025-04-15 17:[address] [place] [address] 4.9 mmol/l (missing) Estimated Glomerular Filt Rate 2025-04-15 17:41 [facility] 50 ml/min Reported eGFR is based the CKD-EPI 2020 equation that does not use a race coefficient. An eGFR below 60 mL/min/1.73m2 suggests that some kidney damage has occurred, and indicative of chronic kidney disease if persisting greater than 3 months. An eGFR less than 15 is indicative of kidney failure. Total Protein 2025-04-15 17:41 [facility] 7.3 g/dl (missing) Lipase 2025-04-15 17:41 [facility] 83 u/l Physician Instructions if pt has history of CHF Calcium 2025-04-15 17:41 [facility] 9.3 mg/dl (missing) Chloride 2025-04-15 17:41 [facility] 95 mmol/l (missing) Result panel 4777 Urine color determination 2025-04-15 17:47:07 [facility] Yellow (missing) (mis sing) Result panel 4778 Urine appearance 2025-04-15 17:47:07 [facility] Cloudy (missing) (missing) Result panel 4779 Urine pH measurement 2025-04-15 17:47:07 [facility] 7.0 (missing) (missing) Result panel 4780 Urine specific gravity measurement 2025-04-15 17:47:07 [facility] <=1.005 (missing) (missing) Result panel 4781 Urine protein measurement 2025-04-15 17:47:07 [facility] Negative (missing) (miss ing) Result panel 4782 Urine glucose measurement 2025-04-15 17:47:07 [facility] Negative g/dL (missing) (missing) Result panel 4783 Urine ketones measurement 2025-04-15 17:47:07 [facility] Negative (missing) (miss ing) Result panel 4784 Urine occult blood detection 2025-04-15 17:47:07 [facility] Trace-intact (missing) (missing) Result panel 4785 Urine nitrate measurement 2025-04-15 17:47:07 [facility] Negative (missing) (miss ing) Result panel 4786 Urine bilirubin measurement 2025-04-15 17:47:07 [facility] Negative (missing) (miss ing) Result panel 4787 Urine urobilinogen detection 2025-04-15 17:47:07 [facility] 1.0 E.U./dL (miss ing) Result panel 4788 Urine leukocyte esterase detection 2025-04-15 17:47:07 [facility] 3+ (missing) (miss ing) Result panel 4789 Microscopic analysis of urine for red blood cells (RBC) 2025-04-15 17:47:07 [facility] None seen (missing) (missing) Result panel 4790 Microscopic analysis of urine for white blood cells (WBC) 2025-04-15 17:47:07 [facility] 10-30/hpf (missing) (missing) Result panel 4791 Urine squamous epithelial cell detection 2025-04-15 17:47:07 [facility] None seen (missing) (miss ing) Result panel 4792 Amorphous urine sediment 2025-04-15 17:47:07 [facility] 1+ (missing) (missing) Result panel 4793 Urine color determination 2025-04-15 17:47:07 [facility] Yellow (missing) (mis sing) Result panel 4794 Urine appearance 2025-04-15 17:47:07 [facility] Cloudy (missing) (missing) Result panel 4795 Urine pH measurement 2025-04-15 17:47:07 [facility] 7.0 (missing) (missing) Result panel 4796 Urine specific gravity measurement 2025-04-15 17:47:07 [facility] <=1.005 (missing) (missing) Result panel 4797 Urine protein measurement 2025-04-15 17:47:07 [facility] Negative (missing) (miss ing) Result panel 4798 Urine glucose measurement 2025-04-15 17:47:07 [facility] Negative g/dL (missing) (missing) Result panel 4799 Urine ketones measurement 2025-04-15 17:47:07 [facility] Negative (missing) (miss ing) Result panel 4800 Urine occult blood detection 2025-04-15 17:47:07 [facility] Trace-intact (missing) (missing) Result panel 4801 Urine nitrate measurement 2025-04-15 17:47:07 [facility] Negative (missing) (miss ing) Result panel 4802 Urine bilirubin measurement 2025-04-15 17:47:07 [facility] Negative (missing) (miss ing) Result panel 4803 Urine urobilinogen detection 2025-04-15 17:47:07 [facility] 1.0 E.U./dL (miss ing) Result panel 4804 Urine leukocyte esterase detection 2025-04-15 17:47:07 [facility] 3+ (missing) (miss ing) Result panel 4805 Microscopic analysis of urine for red blood cells (RBC) 2025-04-15 17:47:07 [facility] None seen (missing) (missing) Result panel 4806 Microscopic analysis of urine for white blood cells (WBC) 2025-04-15 17:47:07 [facility] 10-30/hpf (missing) (missing) Result panel 4807 Urine squamous epithelial cell detection 2025-04-15 17:47:07 [facility] None seen (missing) (miss ing) Result panel 4808 Amorphous urine sediment 2025-04-15 17:47:07 [facility] 1+ (missing) (missing) Result panel 4809 Urine color determination 2025-04-15 17:47:07 [facility] Yellow (missing) (mis sing) Result panel 4810 Urine appearance 2025-04-15 17:47:07 [facility] Cloudy (missing) (missing) Result panel 4811 Urine pH measurement 2025-04-15 17:47:07 [facility] 7.0 (missing) (missing) Result panel 4812 Urine specific gravity measurement 2025-04-15 17:47:07 [facility] <=1.005 (missing) (missing) Result panel 4813 Urine protein measurement 2025-04-15 17:47:07 [facility] Negative (missing) (miss ing) Result panel 4814 Urine glucose measurement 2025-04-15 17:47:07 [facility] Negative g/dL (missing) (missing) Result panel 4815 Urine ketones measurement 2025-04-15 17:47:07 [facility] Negative (missing) (miss ing) Result panel 4816 Urine occult blood detection 2025-04-15 17:47:07 [facility] Trace-intact (missing) (missing) Result panel 4817 Urine nitrate measurement 2025-04-15 17:47:07 [facility] Negative (missing) (miss ing) Result panel 4818 Urine bilirubin measurement 2025-04-15 17:47:07 [facility] Negative (missing) (miss ing) Result panel 4819 Urine urobilinogen detection 2025-04-15 17:47:07 [facility] 1.0 E.U./dL (miss ing) Result panel 4820 Urine leukocyte esterase detection 2025-04-15 17:47:07 [facility] 3+ (missing) (miss ing) Result panel 4821 Microscopic analysis of urine for red blood cells (RBC) 2025-04-15 17:47:07 [facility] None seen (missing) (missing) Result panel 4822 Microscopic analysis of urine for white blood cells (WBC) 2025-04-15 17:47:07 [facility] 10-30/hpf (missing) (missing) Result panel 4823 Urine squamous epithelial cell detection 2025-04-15 17:47:07 [facility] None seen (missing) (miss ing) Result panel 4824 Amorphous urine sediment 2025-04-15 17:47:07 [facility] 1+ (missing) (missing) Result panel 4825 Urine color determination 2025-04-15 17:47:07 [facility] Yellow (missing) (mis sing) Result panel 4826 Urine appearance 2025-04-15 17:47:07 [facility] Cloudy (missing) (missing) Result panel 4827 Urine pH measurement 2025-04-15 17:47:07 [facility] 7.0 (missing) (missing) Result panel 4828 Urine specific gravity measurement 2025-04-15 17:47:07 [facility] <=1.005 (missing) (missing) Result panel 4829 Urine protein measurement 2025-04-15 17:47:07 [facility] Negative (missing) (miss ing) Result panel 4830 Urine glucose measurement 2025-04-15 17:47:07 [facility] Negative g/dL (missing) (missing) Result panel 4831 Urine ketones measurement 2025-04-15 17:47:07 [facility] Negative (missing) (miss ing) Result panel 4832 Urine occult blood detection 2025-04-15 17:47:07 [facility] Trace-intact (missing) (missing) Result panel 4833 Urine nitrate measurement 2025-04-15 17:47:07 [facility] Negative (missing) (miss ing) Result panel 4834 Urine bilirubin measurement 2025-04-15 17:47:07 [facility] Negative (missing) (miss ing) Result panel 4835 Urine urobilinogen detection 2025-04-15 17:47:07 [facility] 1.0 E.U./dL (miss ing) Result panel 4836 Urine leukocyte esterase detection 2025-04-15 17:47:07 [facility] 3+ (missing) (miss ing) Result panel 4837 Microscopic analysis of urine for red blood cells (RBC) 2025-04-15 17:47:07 [facility] None seen (missing) (missing) Result panel 4838 Microscopic analysis of urine for white blood cells (WBC) 2025-04-15 17:47:07 [facility] 10-30/hpf (missing) (missing) Result panel 4839 Urine squamous epithelial cell detection 2025-04-15 17:47:07 [facility] None seen (missing) (miss ing) Result panel 4840 Amorphous urine sediment 2025-04-15 17:47:07 [facility] 1+ (missing) (missing) Result panel 4841 Urine color determination 2025-04-15 17:47:07 [facility] Yellow (missing) (mis sing) Result panel 4842 Urine appearance 2025-04-15 17:47:07 [facility] Cloudy (missing) (missing) Result panel 4843 Urine pH measurement 2025-04-15 17:47:07 [facility] 7.0 (missing) (missing) Result panel 4844 Urine specific gravity measurement 2025-04-15 17:47:07 [facility] <=1.005 (missing) (missing) Result panel 4845 Urine protein measurement 2025-04-15 17:47:07 [facility] Negative (missing) (miss ing) Result panel 4846 Urine glucose measurement 2025-04-15 17:47:07 [facility] Negative g/dL (missing) (missing) Result panel 4847 Urine ketones measurement 2025-04-15 17:47:07 [facility] Negative (missing) (miss ing) Result panel 4848 Urine occult blood detection 2025-04-15 17:47:07 [facility] Trace-intact (missing) (missing) Result panel 4849 Urine nitrate measurement 2025-04-15 17:47:07 [facility] Negative (missing) (miss ing) Result panel 4850 Urine bilirubin measurement 2025-04-15 17:47:07 [facility] Negative (missing) (miss ing) Result panel 4851 Urine urobilinogen detection 2025-04-15 17:47:07 [facility] 1.0 E.U./dL (miss ing) Result panel 4852 Urine leukocyte esterase detection 2025-04-15 17:47:07 [facility] 3+ (missing) (miss ing) Result panel 4853 Microscopic analysis of urine for red blood cells (RBC) 2025-04-15 17:47:07 [facility] None seen (missing) (missing) Result panel 4854 Microscopic analysis of urine for white blood cells (WBC) 2025-04-15 17:47:07 [facility] 10-30/hpf (missing) (missing) Result panel 4855 Urine squamous epithelial cell detection 2025-04-15 17:47:07 [facility] None seen (missing) (miss ing) Result panel 4856 Amorphous urine sediment 2025-04-15 17:47:07 [facility] 1+ (missing) (missing) Result panel 4857 Urine color determination 2025-04-15 17:47:07 [facility] Yellow (missing) (mis sing) Result panel 4858 Urine appearance 2025-04-15 17:47:07 [facility] Cloudy (missing) (missing) Result panel 4859 Urine pH measurement 2025-04-15 17:47:07 [facility] 7.0 (missing) (missing) Result panel 4860 Urine specific gravity measurement 2025-04-15 17:47:07 [facility] <=1.005 (missing) (missing) Result panel 4861 Urine protein measurement 2025-04-15 17:47:07 [facility] Negative (missing) (miss ing) Result panel 4862 Urine glucose measurement 2025-04-15 17:47:07 [facility] Negative g/dL (missing) (missing) Result panel 4863 Urine ketones measurement 2025-04-15 17:47:07 [facility] Negative (missing) (miss ing) Result panel 4864 Urine occult blood detection 2025-04-15 17:47:07 [facility] Trace-intact (missing) (missing) Result panel 4865 Urine nitrate measurement 2025-04-15 17:47:07 [facility] Negative (missing) (miss ing) Result panel 4866 Urine bilirubin measurement 2025-04-15 17:47:07 [facility] Negative (missing) (miss ing) Result panel 4867 Urine urobilinogen detection 2025-04-15 17:47:07 [facility] 1.0 E.U./dL (miss ing) Result panel 4868 Urine leukocyte esterase detection 2025-04-15 17:47:07 [facility] 3+ (missing) (miss ing) Result panel 4869 Microscopic analysis of urine for red blood cells (RBC) 2025-04-15 17:47:07 [facility] None seen (missing) (missing) Result panel 4870 Microscopic analysis of urine for white blood cells (WBC) 2025-04-15 17:47:07 [facility] 10-30/hpf (missing) (missing) Result panel 4871 Urine squamous epithelial cell detection 2025-04-15 17:47:07 [facility] None seen (missing) (miss ing) Result panel 4872 Amorphous urine sediment 2025-04-15 17:47:07 [facility] 1+ (missing) (missing) Result panel 4873 Urine color determination 2025-04-15 17:47:07 [facility] Yellow (missing) (mis sing) Result panel 4874 Urine color determination 2025-04-15 17:47:07 [facility] Yellow (missing) (mis sing) Result panel 4875 Urine appearance 2025-04-15 17:47:07 [facility] Cloudy (missing) (missing) Result panel 4876 Urine pH measurement 2025-04-15 17:47:07 [facility] 7.0 (missing) (missing) Result panel 4877 Urine specific gravity measurement 2025-04-15 17:47:07 [facility] <=1.005 (missing) (missing) Result panel 4878 Urine protein measurement 2025-04-15 17:47:07 [facility] Negative (missing) (miss ing) Result panel 4879 Urine glucose measurement 2025-04-15 17:47:07 [facility] Negative g/dL (missing) (missing) Result panel 4880 Urine ketones measurement 2025-04-15 17:47:07 [facility] Negative (missing) (miss ing) Result panel 4881 Urine occult blood detection 2025-04-15 17:47:07 [facility] Trace-intact (missing) (missing) Result panel 4882 Urine nitrate measurement 2025-04-15 17:47:07 [facility] Negative (missing) (miss ing) Result panel 4883 Urine bilirubin measurement 2025-04-15 17:47:07 [facility] Negative (missing) (miss ing) Result panel 4884 Urine urobilinogen detection 2025-04-15 17:47:07 [facility] 1.0 E.U./dL (miss ing) Result panel 4885 Urine appearance 2025-04-15 17:47:07 [facility] Cloudy (missing) (missing) Result panel 4886 Urine leukocyte esterase detection 2025-04-15 17:47:07 [facility] 3+ (missing) (miss ing) Result panel 4887 Microscopic analysis of urine for red blood cells (RBC) 2025-04-15 17:47:07 [facility] None seen (missing) (missing) Result panel 4888 Microscopic analysis of urine for white blood cells (WBC) 2025-04-15 17:47:07 [facility] 10-30/hpf (missing) (missing) Result panel 4889 Urine squamous epithelial cell detection 2025-04-15 17:47:07 [facility] None seen (missing) (miss ing) Result panel 4890 Amorphous urine sediment 2025-04-15 17:47:07 [facility] 1+ (missing) (missing) Result panel 4891 Urine pH measurement 2025-04-15 17:47:07 [facility] 7.0 (missing) (missing) Result panel 4892 Urine specific gravity measurement 2025-04-15 17:47:07 [facility] <=1.005 (missing) (missing) Result panel 4893 Urine protein measurement 2025-04-15 17:47:07 [facility] Negative (missing) (miss ing) Result panel 4894 Urine glucose measurement 2025-04-15 17:47:07 [facility] Negative g/dL (missing) (missing) Result panel 4895 Urine ketones measurement 2025-04-15 17:47:07 [facility] Negative (missing) (miss ing) Result panel 4896 Urine occult blood detection 2025-04-15 17:47:07 [facility] Trace-intact (missing) (missing) Result panel 4897 Urine nitrate measurement 2025-04-15 17:47:07 [facility] Negative (missing) (miss ing) Result panel 4898 Urine bilirubin measurement 2025-04-15 17:47:07 [facility] Negative (missing) (miss ing) Result panel 4899 Urine urobilinogen detection 2025-04-15 17:47:07 [facility] 1.0 E.U./dL (miss ing) Result panel 4900 Urine leukocyte esterase detection 2025-04-15 17:47:07 [facility] 3+ (missing) (miss ing) Result panel 4901 Microscopic analysis of urine for red blood cells (RBC) 2025-04-15 17:47:07 [facility] None seen (missing) (missing) Result panel 4902 Microscopic analysis of urine for white blood cells (WBC) 2025-04-15 17:47:07 [facility] 10-30/hpf (missing) (missing) Result panel 4903 Urine squamous epithelial cell detection 2025-04-15 17:47:07 [facility] None seen (missing) (miss ing) Result panel 4904 Amorphous urine sediment 2025-04-15 17:47:07 [facility] 1+ (missing) (missing) Result panel 4905 Urine color determination 2025-04-15 17:47:07 [facility] Yellow (missing) (mis sing) Result panel 4906 Urine appearance 2025-04-15 17:47:07 [facility] Cloudy (missing) (missing) Result panel 4907 Urine pH measurement 2025-04-15 17:47:07 [facility] 7.0 (missing) (missing) Result panel 4908 Urine specific gravity measurement 2025-04-15 17:47:07 [facility] <=1.005 (missing) (missing) Result panel 4909 Urine protein measurement 2025-04-15 17:47:07 [facility] Negative (missing) (miss ing) Result panel 4910 Urine glucose measurement 2025-04-15 17:47:07 [facility] Negative g/dL (missing) (missing) Result panel 4911 Urine ketones measurement 2025-04-15 17:47:07 [facility] Negative (missing) (miss ing) Result panel 4912 Urine occult blood detection 2025-04-15 17:47:07 [facility] Trace-intact (missing) (missing) Result panel 4913 Urine nitrate measurement 2025-04-15 17:47:07 [facility] Negative (missing) (miss ing) Result panel 4914 Urine bilirubin measurement 2025-04-15 17:47:07 [facility] Negative (missing) (miss ing) Result panel 4915 Urine urobilinogen detection 2025-04-15 17:47:07 [facility] 1.0 E.U./dL (miss ing) Result panel 4916 Urine leukocyte esterase detection 2025-04-15 17:47:07 [facility] 3+ (missing) (miss ing) Result panel 4917 Microscopic analysis of urine for red blood cells (RBC) 2025-04-15 17:47:07 [facility] None seen (missing) (missing) Result panel 4918 Microscopic analysis of urine for white blood cells (WBC) 2025-04-15 17:47:07 [facility] 10-30/hpf (missing) (missing) Result panel 4919 Urine squamous epithelial cell detection 2025-04-15 17:47:07 [facility] None seen (missing) (miss ing) Result panel 4920 Amorphous urine sediment 2025-04-15 17:47:07 [facility] 1+ (missing) (missing) Result panel 4921 Urine color determination 2025-04-15 17:47:07 [facility] Yellow (missing) (mis sing) Result panel 4922 Urine appearance 2025-04-15 17:47:07 [facility] Cloudy (missing) (missing) Result panel 4923 Urine pH measurement 2025-04-15 17:47:07 [facility] 7.0 (missing) (missing) Result panel 4924 Urine specific gravity measurement 2025-04-15 17:47:07 [facility] <=1.005 (missing) (missing) Result panel 4925 Urine protein measurement 2025-04-15 17:47:07 [facility] Negative (missing) (miss ing) Result panel 4926 Urine glucose measurement 2025-04-15 17:47:07 [facility] Negative g/dL (missing) (missing) Result panel 4927 Urine ketones measurement 2025-04-15 17:47:07 [facility] Negative (missing) (miss ing) Result panel 4928 Urine occult blood detection 2025-04-15 17:47:07 [facility] Trace-intact (missing) (missing) Result panel 4929 Urine nitrate measurement 2025-04-15 17:47:07 [facility] Negative (missing) (miss ing) Result panel 4930 Urine bilirubin measurement 2025-04-15 17:47:07 [facility] Negative (missing) (miss ing) Result panel 4931 Urine urobilinogen detection 2025-04-15 17:47:07 [facility] 1.0 E.U./dL (miss ing) Result panel 4932 Urine leukocyte esterase detection 2025-04-15 17:47:07 [facility] 3+ (missing) (miss ing) Result panel 4933 Microscopic analysis of urine for red blood cells (RBC) 2025-04-15 17:47:07 [facility] None seen (missing) (missing) Result panel 4934 Microscopic analysis of urine for white blood cells (WBC) 2025-04-15 17:47:07 [facility] 10-30/hpf (missing) (missing) Result panel 4935 Urine squamous epithelial cell detection 2025-04-15 17:47:07 [facility] None seen (missing) (miss ing) Result panel 4936 Amorphous urine sediment 2025-04-15 17:47:07 [facility] 1+ (missing) (missing) Result panel 4937 Urine color determination 2025-04-15 17:47:07 [facility] Yellow (missing) (mis sing) Result panel 4938 Urine appearance 2025-04-15 17:47:07 [facility] Cloudy (missing) (missing) Result panel 4939 Urine pH measurement 2025-04-15 17:47:07 [facility] 7.0 (missing) (missing) Result panel 4940 Urine specific gravity measurement 2025-04-15 17:47:07 [facility] <=1.005 (missing) (missing) Result panel 4941 Urine protein measurement 2025-04-15 17:47:07 [facility] Negative (missing) (miss ing) Result panel 4942 Urine glucose measurement 2025-04-15 17:47:07 [facility] Negative g/dL (missing) (missing) Result panel 4943 Urine ketones measurement 2025-04-15 17:47:07 [facility] Negative (missing) (miss ing) Result panel 4944 Urine occult blood detection 2025-04-15 17:47:07 [facility] Trace-intact (missing) (missing) Result panel 4945 Urine nitrate measurement 2025-04-15 17:47:07 [facility] Negative (missing) (miss ing) Result panel 4946 Urine bilirubin measurement 2025-04-15 17:47:07 [facility] Negative (missing) (miss ing) Result panel 4947 Urine urobilinogen detection 2025-04-15 17:47:07 [facility] 1.0 E.U./dL (miss ing) Result panel 4948 Urine leukocyte esterase detection 2025-04-15 17:47:07 [facility] 3+ (missing) (miss ing) Result panel 4949 Microscopic analysis of urine for red blood cells (RBC) 2025-04-15 17:47:07 [facility] None seen (missing) (missing) Result panel 4950 Microscopic analysis of urine for white blood cells (WBC) 2025-04-15 17:47:07 [facility] 10-30/hpf (missing) (missing) Result panel 4951 Urine squamous epithelial cell detection 2025-04-15 17:47:07 [facility] None seen (missing) (miss ing) Result panel 4952 Amorphous urine sediment 2025-04-15 17:47:07 [facility] 1+ (missing) (missing) Result panel 4953 Urine color determination 2025-04-15 17:47:07 [facility] Yellow (missing) (mis sing) Result panel 4954 Urine appearance 2025-04-15 17:47:07 [facility] Cloudy (missing) (missing) Result panel 4955 Urine pH measurement 2025-04-15 17:47:07 [facility] 7.0 (missing) (missing) Result panel 4956 Urine specific gravity measurement 2025-04-15 17:47:07 [facility] <=1.005 (missing) (missing) Result panel 4957 Urine protein measurement 2025-04-15 17:47:07 [facility] Negative (missing) (miss ing) Result panel 4958 Urine glucose measurement 2025-04-15 17:47:07 [facility] Negative g/dL (missing) (missing) Result panel 4959 Urine ketones measurement 2025-04-15 17:47:07 [facility] Negative (missing) (miss ing) Result panel 4960 Urine occult blood detection 2025-04-15 17:47:07 [facility] Trace-intact (missing) (missing) Result panel 4961 Urine nitrate measurement 2025-04-15 17:47:07 [facility] Negative (missing) (miss ing) Result panel 4962 Urine bilirubin measurement 2025-04-15 17:47:07 [facility] Negative (missing) (miss ing) Result panel 4963 Urine urobilinogen detection 2025-04-15 17:47:07 [facility] 1.0 E.U./dL (miss ing) Result panel 4964 Urine leukocyte esterase detection 2025-04-15 17:47:07 [facility] 3+ (missing) (miss ing) Result panel 4965 Microscopic analysis of urine for red blood cells (RBC) 2025-04-15 17:47:07 [facility] None seen (missing) (missing) Result panel 4966 Microscopic analysis of urine for white blood cells (WBC) 2025-04-15 17:47:07 [facility] 10-30/hpf (missing) (missing) Result panel 4967 Urine squamous epithelial cell detection 2025-04-15 17:47:07 [facility] None seen (missing) (miss ing) Result panel 4968 Amorphous urine sediment 2025-04-15 17:47:07 [facility] 1+ (missing) (missing) Result panel 4969 Blood culture 2025-04-15 17:49:07 [facility] NO G ROWTH AFTER 5 DAYS (missing) (missing) Result panel 4970 Blood culture 2025-04-15 17:49:07 [facility] NO G ROWTH AFTER 5 DAYS (missing) (missing) Result panel 4971 Blood culture 2025-04-15 17:49:07 [facility] NO G ROWTH AFTER 5 DAYS (missing) (missing) Result panel 4972 Blood culture 2025-04-15 17:49:07 [facility] NO G ROWTH AFTER 5 DAYS (missing) (missing) Result panel 4973 Blood culture 2025-04-15 17:49:07 [facility] NO G ROWTH AFTER 5 DAYS (missing) (missing) Result panel 4974 Blood culture 2025-04-15 17:49:07 [facility] NO G ROWTH AFTER 5 DAYS (missing) (missing) Result panel 4975 Blood culture 2025-04-15 17:49:07 [facility] NO G ROWTH AFTER 5 DAYS (missing) (missing) Result panel 4976 Blood culture 2025-04-15 17:49:07 [facility] NO G ROWTH AFTER 5 DAYS (missing) (missing) Result panel 4977 Blood culture 2025-04-15 17:49:07 [facility] NO G ROWTH AFTER 5 DAYS (missing) (missing) Result panel 4978 Blood culture 2025-04-15 17:49:07 [facility] NO G ROWTH AFTER 5 DAYS (missing) (missing) Result panel 4979 Blood culture 2025-04-15 17:49:07 [facility] NO G ROWTH AFTER 5 DAYS (missing) (missing) Result panel 4980 Blood culture 2025-04-15 17:49:08 [facility] NO G ROWTH AFTER 5 DAYS (missing) (missing) Result panel 4981 Blood culture 2025-04-15 17:49:08 [facility] NO G ROWTH AFTER 5 DAYS (missing) (missing) Result panel 4982 Troponin I 2025-04-15 17:56 [facility] < 0.012 ng/ml Ortho Troponin-I Recommended Upper Reference Range & Cutoff The 99th Percentile URL: 0.034 ng/mL AMI Diagnostic Cutoff: 0.120 ng/mL Bilirubin Total 2025-04-15 17:56 [facility] 0.7 mg/dl (missing) Creatinine 2025-04-15 17:56 [facility] 1.14 mg/dl (missing) Albumin Globulin Ratio 2025-04-15 17:56 [facility] 1.3 (missing) (missing) Alkaline Phosphatase 2025-04-15 17:56 [facility] 112 u/l (missing) Sodium 2025-04-15 17:56 [facility] 134 mmol/l Physician Instructions if pt has history of CHF Glucose 2025-04-15 17:[address] [place] [address] 144 mg/dl (missing) Alanine Aminotransferase 2025-04-15 17:[address] [place] [address] 17 iu/l (missing) Creatine Kinase 2025-04-15 17:[address] [place] [address] 21 u/l Physician Instructions if pt has history of CHF Aspartate Aminotransferase 2025-04-15 :[address] [place] [address] 24 iu/l (missing) BUN Creatinine Ratio 2025-04-15 :[address] [place] [address] 27.2 (missing) (missing) Magnesium 2025-04-15 :[address] [place] [address] 3.1 mg/dl Physician Instructions if pt has history of CHF Globulin 2025-04-15 :[address] [place] [address] 3.2 g/dl (missing) Blood Urea Nitrogen 2025-04-15 :[address] [place] [address] 31 mg/dl (missing) Carbon Dioxide 2025-04-15 :[address] [place] [address] 31 mmol/l (missing) Albumin 2025-04-15 :[address] [place] [address] 4.1 g/dl (missing) Potassium 2025-04-15 :[address] [place] [address] 4.9 mmol/l (missing) Estimated Glomerular Filt Rate 2025-04-[address] [place] [address] 50 ml/min Reported eGFR is based the CKD-EPI 2020 equation that does not use a race coefficient. An eGFR below 60 mL/min/1.73m2 suggests that some kidney damage has occurred, and indicative of chronic kidney disease if persisting greater than 3 months. An eGFR less than 15 is indicative of kidney failure. NT-proBNP (BNP-Adult 18+) 2025-04-15 :[address] [place] [address] 61 pg/ml Physician Instructions if pt has [...] or exclude HF. Total Protein 2025-04-15 17:56 [facility] 7.3 g/dl (missing) Lipase 2025-04-15 17:56 [facility] 83 u/l Physician Instructions if pt has history of CHF Calcium 2025-04-15 17:56 [facility] 9.3 mg/dl (missing) Chloride 2025-04-15 17:56 [facility] 95 mmol/l (missing) Result panel 4983 Procalcitonin 2025-04-15 17:59 [facility] 0.038 ng/ ml <0.5 ng/mL Systemic infection [...] Result panel 4984 Blood culture 2025-04-15 18:01:07 [facility] NO G ROWTH AFTER 5 DAYS (missing) (missing) Result panel 4985 Blood culture 2025-04-15 18:01:07 [facility] NO G ROWTH AFTER 5 DAYS (missing) (missing) Result panel 4986 Blood culture 2025-04-15 18:01:07 [facility] NO G ROWTH AFTER 5 DAYS (missing) (missing) Result panel 4987 Blood culture 2025-04-15 18:01:07 [facility] NO G ROWTH AFTER 5 DAYS (missing) (missing) Result panel 4988 Blood culture 2025-04-15 18:01:07 [facility] NO G ROWTH AFTER 5 DAYS (missing) (missing) Result panel 4989 Blood culture 2025-04-15 18:01:07 [facility] NO G ROWTH AFTER 5 DAYS (missing) (missing) Result panel 4990 Blood culture 2025-04-15 18:01:07 [facility] NO G ROWTH AFTER 5 DAYS (missing) (missing) Result panel 4991 Blood culture 2025-04-15 18:01:07 [facility] NO G ROWTH AFTER 5 DAYS (missing) (missing) Result panel 4992 Blood culture 2025-04-15 18:01:07 [facility] NO G ROWTH AFTER 5 DAYS (missing) (missing) Result panel 4993 Blood culture 2025-04-15 18:01:07 [facility] NO G ROWTH AFTER 5 DAYS (missing) (missing) Result panel 4994 Blood culture 2025-04-15 18:01:07 [facility] NO G ROWTH AFTER 5 DAYS (missing) (missing) Result panel 4995 Blood culture 2025-04-15 18:01:08 [facility] NO G ROWTH AFTER 5 DAYS (missing) (missing) Result panel 4996 Blood culture 2025-04-15 18:01:08 [facility] NO G ROWTH AFTER 5 DAYS (missing) (missing) Result panel 4997 X-ray report 2025-04-15 18:06 [facility] (missing) (mis sing) (missing) Result panel 4998 Specific [place] Urine UA 2025-04-15 18:06 [facility] <=1.005 (missing) (missing) Urobilinogen Urine UA 2025-04-15 18:06 [facility] 1.0 e.u./dl (missing) Leukocyte Esterase Urine UA 2025-04-15 18:06 [facility] 3 (missing) (missing) pH Urine UA 2025-04-15 18:06 [facility] 7.0 (missing) (missing) Appearance Urine UA 2025-04-15 18:06 [facility] CLOUDY (missing) (missing) Bilirubin Urine UA 2025-04-15 18:06 [facility] NEGATIVE (missing) (missing) Ketones Urine UA 2025-04-15 18:06 [facility] NEGATIVE (missing) (missing) Nitrite Urine UA 2025-04-15 18:06 [facility] NEGATIVE (missing) (missing) Protein Urine UA 2025-04-15 18:06 [facility] NEGATIVE (missing) (missing) Glucose Urine UA 2025-04-15 18:06 [facility] NEGATIVE g/dl (missing) Occult Blood Urine UA 2025-04-15 18:06 [facility] TRACE-INTACT (missing) (missing) Color Urine UA 2025-04-15 18:06 [facility] YELLOW (missing) Urine Source: Urine, [place] Culture if Indicated? Y Result panel 4999 Specific [place] Urine UA 2025-04-15 18:[address] [place] [address] <=1.005 (missing) (missing) Amorphous Sediment Urine 2025-04-15 18:[address] [place] [address] 1 (missing) (missing) Urobilinogen Urine UA 2025-04-15 18:[address] [place] [address] 1.0 e.u./dl (missing) WBC Urine 2025-04-15 18:[address] [place] [address] 10-30/HPF (missing) (missing) Urine Volume 2025-04-15 18:[address] [place] [address] 10mL (spun) (missing) (missing) Leukocyte Esterase Urine UA 2025-04-15 18:[address] [place] [address] 3 (missing) (missing) pH Urine UA 2025-04-15 18:[address] [place] [address] 7.0 (missing) (missing) Appearance Urine UA 2025-04-15 18:[address] [place] [address] CLOUDY (missing) (missing) Bacteria Urine 2025-04-15 18:[address] [place] [address] Many (>30) (missing) (missing) Bilirubin Urine UA 2025-04-15 18:[address] [place] [address] NEGATIVE (missing) (missing) Ketones Urine UA 2025-04-15 18:[address] [place] [address] NEGATIVE (missing) (missing) Nitrite Urine UA 2025-04-15 18:[address] [place] [address] NEGATIVE (missing) (missing) Protein Urine UA 2025-04-15 18:[address] [place] [address] NEGATIVE (missing) (missing) Glucose Urine UA 2025-04-15 18:[address] [place] [address] NEGATIVE g/dl (missing) RBC Urine 2025-04-15 18:09 [facility] None Seen (missing) (missing) Squamous Epithelial Cell Urine 2025-04-15 18:[address] [place] [address] None Seen (missing) (missing) Culture Indicated Urine 2025-04-15 18:[address] [place] [address] Specimen Cultured (missing) (missing) Occult Blood Urine UA 2025-04-15 18:[address] [place] [address] TRACE-INTACT (missing) (missing) Color Urine UA 2025-04-15 18:09 [facility] YELLOW (missing) Urine Source: Urine, [place] Culture if Indicated? Y Result panel 5000 Adenovirus DNA [Presence] in Nasopharynx by TAMMI with non-probe detection 2025-04-15 18:27:08 [facility] Not detected (missing) (missing) Result panel 5001 SARS-CoV-2 (COVID-19) RNA [Presence] in Nasopharynx by TAMMI with non-probe detection 2025-04-15 18:27:08 [facility] Not detected (missing) (missing) Result panel 5002 Human coronavirus 229E RNA [Presence] in Nasopharynx by TAMMI with non-probe detection 2025-04-15 18:27:08 [facility] Not detected (missing) (missing) Result panel 5003 Human coronavirus HKU1 RNA [Presence] in Nasopharynx by TAMMI with non-probe detection 2025-04-15 18:27:08 [facility] Not detected (missing) (missing) Result panel 5004 Human coronavirus NL63 RNA [Presence] in Nasopharynx by TAMMI with non-probe detection 2025-04-15 18:27:08 [facility] Not detected (missing) (missing) Result panel 5005 Human coronavirus OC43 RNA [Presence] in Nasopharynx by TAMMI with non-probe detection 2025-04-15 18:27:08 [facility] Not detected (missing) (missing) Result panel 5006 Human metapneumovirus RNA [Presence] in Nasopharynx by TAMMI with non-probe detection 2025-04-15 18:27:08 [facility] Not detected (missing) (missing) Result panel 5007 Rhinovirus+Enterovirus RNA [Presence] in Nasopharynx by TAMMI with non-probe detection 2025-04-15 18:27:08 [facility] Not detected (missing) (missing) Result panel 5008 Influenza virus A RNA [Presence] in Nasopharynx by TAMMI with non-probe detection 2025-04-15 18:27:08 [facility] Not detected (missing) (missing) Result panel 5009 Influenza virus B RNA [Presence] in Nasopharynx by TAMMI with non-probe detection 2025-04-15 18:27:08 [facility] Not detected (missing) (missing) Result panel 5010 Parainfluenza virus 1 RNA [Presence] in Nasopharynx by TAMMI with non-probe detection 2025-04-15 18:27:08 [facility] Not detected (missing) (missing) Result panel 5011 Parainfluenza virus 2 RNA [Presence] in Nasopharynx by TAMMI with non-probe detection 2025-04-15 18:27:08 [facility] Not detected (missing) (missing) Result panel 5012 Parainfluenza virus 3 RNA [Presence] in Nasopharynx by TAMMI with non-probe detection 2025-04-15 18:27:08 [facility] Not detected (missing) (missing) Result panel 5013 Parainfluenza virus 4 RNA [Presence] in Nasopharynx by TAMMI with non-probe detection 2025-04-15 18:27:08 [facility] Not detected (missing) (missing) Result panel 5014 Respiratory syncytial virus RNA [Presence] in Nasopharynx by TAMMI with non-probe detec 2025-04-15 18:27:08 [facility] Not detected (missing) (missing) Result panel 5015 Bordetella pertussis.pertussis toxin promoter region [Presence] in Nasopharynx by TAMMI 2025-04-15 18:27:08 [facility] Not detected (missing) (missing) Result panel 5016 Chlamydophila pneumoniae DNA [Presence] in Nasopharynx by TMAMI with non-probe detectio 2025-04-15 18:27:08 [facility] Not detected (missing) (missing) Result panel 5017 Mycoplasma pneumoniae DNA [Presence] in Nasopharynx by TAMMI with non-probe detection 2025-04-15 18:27:08 [facility] Not detected (missing) (missing) Result panel 5018 Adenovirus DNA [Presence] in Nasopharynx by TAMMI with non-probe detection 2025-04-15 18:27:08 [facility] Not detected (missing) (missing) Result panel 5019 SARS-CoV-2 (COVID-19) RNA [Presence] in Nasopharynx by TAMMI with non-probe detection 2025-04-15 18:27:08 [facility] Not detected (missing) (missing) Result panel 5020 Human coronavirus 229E RNA [Presence] in Nasopharynx by TAMMI with non-probe detection 2025-04-15 18:27:08 [facility] Not detected (missing) (missing) Result panel 5021 Human coronavirus HKU1 RNA [Presence] in Nasopharynx by TAMMI with non-probe detection 2025-04-15 18:27:08 [facility] Not detected (missing) (missing) Result panel 5022 Human coronavirus NL63 RNA [Presence] in Nasopharynx by TAMMI with non-probe detection 2025-04-15 18:27:08 [facility] Not detected (missing) (missing) Result panel 5023 Human coronavirus OC43 RNA [Presence] in Nasopharynx by TAMMI with non-probe detection 2025-04-15 18:27:08 [facility] Not detected (missing) (missing) Result panel 5024 Human metapneumovirus RNA [Presence] in Nasopharynx by TAMMI with non-probe detection 2025-04-15 18:27:08 [facility] Not detected (missing) (missing) Result panel 5025 Rhinovirus+Enterovirus RNA [Presence] in Nasopharynx by TAMMI with non-probe detection 2025-04-15 18:27:08 [facility] Not detected (missing) (missing) Result panel 5026 Influenza virus A RNA [Presence] in Nasopharynx by TAMMI with non-probe detection 2025-04-15 18:27:08 [facility] Not detected (missing) (missing) Result panel 5027 Influenza virus B RNA [Presence] in Nasopharynx by TAMMI with non-probe detection 2025-04-15 18:27:08 [facility] Not detected (missing) (missing) Result panel 5028 Parainfluenza virus 1 RNA [Presence] in Nasopharynx by TAMMI with non-probe detection 2025-04-15 18:27:08 [facility] Not detected (missing) (missing) Result panel 5029 Parainfluenza virus 2 RNA [Presence] in Nasopharynx by TAMMI with non-probe detection 2025-04-15 18:27:08 [facility] Not detected (missing) (missing) Result panel 5030 Parainfluenza virus 3 RNA [Presence] in Nasopharynx by TAMMI with non-probe detection 2025-04-15 18:27:08 [facility] Not detected (missing) (missing) Result panel 5031 Parainfluenza virus 4 RNA [Presence] in Nasopharynx by TAMMI with non-probe detection 2025-04-15 18:27:08 [facility] Not detected (missing) (missing) Result panel 5032 Respiratory syncytial virus RNA [Presence] in Nasopharynx by TAMMI with non-probe detec 2025-04-15 18:27:08 [facility] Not detected (missing) (missing) Result panel 5033 Bordetella pertussis.pertussis toxin promoter region [Presence] in Nasopharynx by TAMMI 2025-04-15 18:27:08 [facility] Not detected (missing) (missing) Result panel 5034 Chlamydophila pneumoniae DNA [Presence] in Nasopharynx by TAMMI with non-probe detectio 2025-04-15 18:27:08 [facility] Not detected (missing) (missing) Result panel 5035 Mycoplasma pneumoniae DNA [Presence] in Nasopharynx by TAMMI with non-probe detection 2025-04-15 18:27:08 [facility] Not detected (missing) (missing) Result panel 5036 D Dimer 2025-04-15 19:26 [facility] 426 ng/ml *New methodology for D-Dimer resulting [...] by TAMMI with non-probe detection 2025-04-15 19:27:07 [facility] Not detected (missing) (missing) Result panel 5038 SARS-CoV-2 (COVID-19) RNA [Presence] in Nasopharynx by TAMMI with non-probe detection 2025-04-15 19:27:07 [facility] Not detected (missing) (missing) Result panel 5039 Human coronavirus 229E RNA [Presence] in Nasopharynx by TAMMI with non-probe detection 2025-04-15 19:27:07 [facility] Not detected (missing) (missing) Result panel 5040 Human coronavirus HKU1 RNA [Presence] in Nasopharynx by TAMMI with non-probe detection 2025-04-15 19:27:07 [facility] Not detected (missing) (missing) Result panel 5041 Human coronavirus NL63 RNA [Presence] in Nasopharynx by TAMMI with non-probe detection 2025-04-15 19:27:07 [facility] Not detected (missing) (missing) Result panel 5042 Human coronavirus OC43 RNA [Presence] in Nasopharynx by TAMMI with non-probe detection 2025-04-15 19:27:07 [facility] Not detected (missing) (missing) Result panel 5043 Human metapneumovirus RNA [Presence] in Nasopharynx by TAMMI with non-probe detection 2025-04-15 19:27:07 [facility] Not detected (missing) (missing) Result panel 5044 Rhinovirus+Enterovirus RNA [Presence] in Nasopharynx by TAMMI with non-probe detection 2025-04-15 19:27:07 [facility] Not detected (missing) (missing) Result panel 5045 Influenza virus A RNA [Presence] in Nasopharynx by TAMMI with non-probe detection 2025-04-15 19:27:07 [facility] Not detected (missing) (missing) Result panel 5046 Influenza virus B RNA [Presence] in Nasopharynx by TAMMI with non-probe detection 2025-04-15 19:27:07 [facility] Not detected (missing) (missing) Result panel 5047 Parainfluenza virus 1 RNA [Presence] in Nasopharynx by TAMMI with non-probe detection 2025-04-15 19:27:07 [facility] Not detected (missing) (missing) Result panel 5048 Parainfluenza virus 2 RNA [Presence] in Nasopharynx by TAMMI with non-probe detection 2025-04-15 19:27:07 [facility] Not detected (missing) (missing) Result panel 5049 Parainfluenza virus 3 RNA [Presence] in Nasopharynx by TAMMI with non-probe detection 2025-04-15 19:27:07 [facility] Not detected (missing) (missing) Result panel 5050 Parainfluenza virus 4 RNA [Presence] in Nasopharynx by TAMMI with non-probe detection 2025-04-15 19:27:07 [facility] Not detected (missing) (missing) Result panel 5051 Respiratory syncytial virus RNA [Presence] in Nasopharynx by TAMMI with non-probe detec 2025-04-15 19:27:07 [facility] Not detected (missing) (missing) Result panel 5052 Bordetella pertussis.pertussis toxin promoter region [Presence] in Nasopharynx by TAMMI 2025-04-15 19:27:07 [facility] Not detected (missing) (missing) Result panel 5053 Chlamydophila pneumoniae DNA [Presence] in Nasopharynx by TAMMI with non-probe detectio 2025-04-15 19:27:07 [facility] Not detected (missing) (missing) Result panel 5054 Mycoplasma pneumoniae DNA [Presence] in Nasopharynx by TAMMI with non-probe detection 2025-04-15 19:27:07 [facility] Not detected (missing) (missing) Result panel 5055 Adenovirus DNA [Presence] in Nasopharynx by TAMMI with non-probe detection 2025-04-15 19:27:07 [facility] Not detected (missing) (missing) Result panel 5056 SARS-CoV-2 (COVID-19) RNA [Presence] in Nasopharynx by TAMMI with non-probe detection 2025-04-15 19:27:07 [facility] Not detected (missing) (missing) Result panel 5057 Human coronavirus 229E RNA [Presence] in Nasopharynx by TAMMI with non-probe detection 2025-04-15 19:27:07 [facility] Not detected (missing) (missing) Result panel 5058 Human coronavirus HKU1 RNA [Presence] in Nasopharynx by TAMMI with non-probe detection 2025-04-15 19:27:07 [facility] Not detected (missing) (missing) Result panel 5059 Human coronavirus NL63 RNA [Presence] in Nasopharynx by TAMMI with non-probe detection 2025-04-15 19:27:07 [facility] Not detected (missing) (missing) Result panel 5060 Human coronavirus OC43 RNA [Presence] in Nasopharynx by TAMMI with non-probe detection 2025-04-15 19:27:07 [facility] Not detected (missing) (missing) Result panel 5061 Human metapneumovirus RNA [Presence] in Nasopharynx by TAMMI with non-probe detection 2025-04-15 19:27:07 [facility] Not detected (missing) (missing) Result panel 5062 Rhinovirus+Enterovirus RNA [Presence] in Nasopharynx by T[facility] with non-probe detection 2025-04-15 19:27:07 [facility] Not detected (missing) (missing) Result panel 5063 Influenza virus A RNA [Presence] in Nasopharynx by TAMMI with non-probe detection 2025-04-15 19:27:07 [facility] Not detected (missing) (missing) Result panel 5064 Influenza virus B RNA [Presence] in Nasopharynx by TAMMI with non-probe detection 2025-04-15 19:27:07 [facility] Not detected (missing) (missing) Result panel 5065 Parainfluenza virus 1 RNA [Presence] in Nasopharynx by TAMMI with non-probe detection 2025-04-15 19:27:07 [facility] Not detected (missing) (missing) Result panel 5066 Parainfluenza virus 2 RNA [Presence] in Nasopharynx by TAMMI with non-probe detection 2025-04-15 19:27:07 [facility] Not detected (missing) (missing) Result panel 5067 Parainfluenza virus 3 RNA [Presence] in Nasopharynx by TAMMI with non-probe detection 2025-04-15 19:27:07 [facility] Not detected (missing) (missing) Result panel 5068 Parainfluenza virus 4 RNA [Presence] in Nasopharynx by TAMMI with non-probe detection 2025-04-15 19:27:07 [facility] Not detected (missing) (missing) Result panel 5069 Respiratory syncytial virus RNA [Presence] in Nasopharynx by TAMMI with non-probe detec 2025-04-15 19:27:07 [facility] Not detected (missing) (missing) Result panel 5070 Bordetella pertussis.pertussis toxin promoter region [Presence] in Nasopharynx by TAMMI 2025-04-15 19:27:07 [facility] Not detected (missing) (missing) Result panel 5071 Chlamydophila pneumoniae DNA [Presence] in Nasopharynx by TAM[facility] with non-probe detectio 2025-04-15 19:27:07 [facility] Not detected (missing) (missing) Result panel 5072 Mycoplasma pneumoniae DNA [Presence] in Nasopharynx by TAM[facility] with non-probe detection 2025-04-15 19:27:07 [facility] Not detected (missing) (missing) Result panel 5073 Adenovirus DNA [Presence] in Nasopharynx by [facility]AM[facility] with non-probe detection 2025-04-15 19:27:07 [facility] Not detected (missing) (missing) Result panel 5074 SARS-CoV-2 (COVID-19) RNA [Presence] in Nasopharynx by TAMMI with non-probe detection 2025-04-15 19:27:07 [facility] Not detected (missing) (missing) Result panel 5075 Human coronavirus 229E RNA [Presence] in Nasopharynx by TAMMI with non-probe detection 2025-04-15 19:27:07 [facility] Not detected (missing) (missing) Result panel 5076 Human coronavirus HKU1 RNA [Presence] in Nasopharynx by TAMMI with non-probe detection 2025-04-15 19:27:07 [facility] Not detected (missing) (missing) Result panel 5077 Human coronavirus NL63 RNA [Presence] in Nasopharynx by TAMMI with non-probe detection 2025-04-15 19:27:07 [facility] Not detected (missing) (missing) Result panel 5078 Human coronavirus OC43 RNA [Presence] in Nasopharynx by TAMMI with non-probe detection 2025-04-15 19:27:07 [facility] Not detected (missing) (missing) Result panel 5079 Human metapneumovirus RNA [Presence] in Nasopharynx by T[facility] with non-probe detection 2025-04-15 19:27:07 [facility] Not detected (missing) (missing) Result panel 5080 Rhinovirus+Enterovirus RNA [Presence] in Nasopharynx by [facility] with non-probe detection 2025-04-15 19:27:07 [facility] Not detected (missing) (missing) Result panel 5081 Influenza virus A RNA [Presence] in Nasopharynx by TAMMI with non-probe detection 2025-04-15 19:27:07 [facility] Not detected (missing) (missing) Result panel 5082 Influenza virus B RNA [Presence] in Nasopharynx by TAMMI with non-probe detection 2025-04-15 19:27:07 [facility] Not detected (missing) (missing) Result panel 5083 Parainfluenza virus 1 RNA [Presence] in Nasopharynx by TAMMI with non-probe detection 2025-04-15 19:27:07 [facility] Not detected (missing) (missing) Result panel 5084 Parainfluenza virus 2 RNA [Presence] in Nasopharynx by TAMMI with non-probe detection 2025-04-15 19:27:07 [facility] Not detected (missing) (missing) Result panel 5085 Parainfluenza virus 3 RNA [Presence] in Nasopharynx by TAMMI with non-probe detection 2025-04-15 19:27:07 [facility] Not detected (missing) (missing) Result panel 5086 Parainfluenza virus 4 RNA [Presence] in Nasopharynx by TAMMI with non-probe detection 2025-04-15 19:27:07 [facility] Not detected (missing) (missing) Result panel 5087 Respiratory syncytial virus RNA [Presence] in Nasopharynx by T[facility] with non-probe detec 2025-04-15 19:27:07 [facility] Not detected (missing) (missing) Result panel 5088 Bordetella pertussis.pertussis toxin promoter region [Presence] in Nasopharynx by T[facility]MI 2025-04-15 19:27:07 [facility] Not detected (missing) (missing) Result panel 5089 Chlamydophila pneumoniae DNA [Presence] in Nasopharynx by TAMMI with non-probe detectio 2025-04-15 19:27:07 [facility] Not detected (missing) (missing) Result panel 5090 Mycoplasma pneumoniae DNA [Presence] in Nasopharynx by TAMMI with non-probe detection 2025-04-15 19:27:07 [facility] Not detected (missing) (missing) Result panel 5091 Adenovirus DNA [Presence] in Nasopharynx by TAMMI with non-probe detection 2025-04-15 19:27:07 [facility] Not detected (missing) (missing) Result panel 5092 SARS-CoV-2 (COVID-19) RNA [Presence] in Nasopharynx by TAMMI with non-probe detection 2025-04-15 19:27:07 [facility] Not detected (missing) (missing) Result panel 5093 Human coronavirus 229E RNA [Presence] in Nasopharynx by TAMMI with non-probe detection 2025-04-15 19:27:07 [facility] Not detected (missing) (missing) Result panel 5094 Human coronavirus HKU1 RNA [Presence] in Nasopharynx by TAMMI with non-probe detection 2025-04-15 19:27:07 [facility] Not detected (missing) (missing) Result panel 5095 Human coronavirus NL63 RNA [Presence] in Nasopharynx by TAMMI with non-probe detection 2025-04-15 19:27:07 [facility] Not detected (missing) (missing) Result panel 5096 Human coronavirus OC43 RNA [Presence] in Nasopharynx by TAMMI with non-probe detection 2025-04-15 19:27:07 [facility] Not detected (missing) (missing) Result panel 5097 Human metapneumovirus RNA [Presence] in Nasopharynx by [facility]AM[facility] with non-probe detection 2025-04-15 19:27:07 [facility] Not detected (missing) (missing) Result panel 5098 Rhinovirus+Enterovirus RNA [Presence] in Nasopharynx by TAMMI with non-probe detection 2025-04-15 19:27:07 [facility] Not detected (missing) (missing) Result panel 5099 Influenza virus A RNA [Presence] in Nasopharynx by TAMMI with non-probe detection 2025-04-15 19:27:07 [facility] Not detected (missing) (missing) Result panel 5100 Influenza virus B RNA [Presence] in Nasopharynx by TAMMI with non-probe detection 2025-04-15 19:27:07 [facility] Not detected (missing) (missing) Result panel 5101 Parainfluenza virus 1 RNA [Presence] in Nasopharynx by TAMMI with non-probe detection 2025-04-15 19:27:07 [facility] Not detected (missing) (missing) Result panel 5102 Parainfluenza virus 2 RNA [Presence] in Nasopharynx by TAMMI with non-probe detection 2025-04-15 19:27:07 [facility] Not detected (missing) (missing) Result panel 5103 Parainfluenza virus 3 RNA [Presence] in Nasopharynx by TAMMI with non-probe detection 2025-04-15 19:27:07 [facility] Not detected (missing) (missing) Result panel 5104 Parainfluenza virus 4 RNA [Presence] in Nasopharynx by TAMMI with non-probe detection 2025-04-15 19:27:07 [facility] Not detected (missing) (missing) Result panel 5105 Respiratory syncytial virus RNA [Presence] in Nasopharynx by TAMMI with non-probe detec 2025-04-15 19:27:07 [facility] Not detected (missing) (missing) Result panel 5106 Bordetella pertussis.pertussis toxin promoter region [Presence] in Nasopharynx by TAMMI 2025-04-15 19:27:07 [facility] Not detected (missing) (missing) Result panel 5107 Chlamydophila pneumoniae DNA [Presence] in Nasopharynx by TAMMI with non-probe detectio 2025-04-15 19:27:07 [facility] Not detected (missing) (missing) Result panel 5108 Mycoplasma pneumoniae DNA [Presence] in Nasopharynx by TAMMI with non-probe detection 2025-04-15 19:27:07 [facility] Not detected (missing) (missing) Result panel 5109 Adenovirus DNA [Presence] in Nasopharynx by TAMMI with non-probe detection 2025-04-15 19:27:07 [facility] Not detected (missing) (missing) Result panel 5110 SARS-CoV-2 (COVID-19) RNA [Presence] in Nasopharynx by TAMMI with non-probe detection 2025-04-15 19:27:07 [facility] Not detected (missing) (missing) Result panel 5111 Human coronavirus 229E RNA [Presence] in Nasopharynx by TAMMI with non-probe detection 2025-04-15 19:27:07 [facility] Not detected (missing) (missing) Result panel 5112 Human coronavirus HKU1 RNA [Presence] in Nasopharynx by TAMMI with non-probe detection 2025-04-15 19:27:07 [facility] Not detected (missing) (missing) Result panel 5113 Human coronavirus NL63 RNA [Presence] in Nasopharynx by TAMMI with non-probe detection 2025-04-15 19:27:07 [facility] Not detected (missing) (missing) Result panel 5114 Human coronavirus OC43 RNA [Presence] in Nasopharynx by TAMMI with non-probe detection 2025-04-15 19:27:07 [facility] Not detected (missing) (missing) Result panel 5115 Human metapneumovirus RNA [Presence] in Nasopharynx by TAMMI with non-probe detection 2025-04-15 19:27:07 [facility] Not detected (missing) (missing) Result panel 5116 Rhinovirus+Enterovirus RNA [Presence] in Nasopharynx by TAMMI with non-probe detection 2025-04-15 19:27:07 [facility] Not detected (missing) (missing) Result panel 5117 Influenza virus A RNA [Presence] in Nasopharynx by TAMMI with non-probe detection 2025-04-15 19:27:07 [facility] Not detected (missing) (missing) Result panel 5118 Influenza virus B RNA [Presence] in Nasopharynx by TAMMI with non-probe detection 2025-04-15 19:27:07 [facility] Not detected (missing) (missing) Result panel 5119 Parainfluenza virus 1 RNA [Presence] in Nasopharynx by TAMMI with non-probe detection 2025-04-15 19:27:07 [facility] Not detected (missing) (missing) Result panel 5120 Parainfluenza virus 2 RNA [Presence] in Nasopharynx by TAMMI with non-probe detection 2025-04-15 19:27:07 [facility] Not detected (missing) (missing) Result panel 5121 Parainfluenza virus 3 RNA [Presence] in Nasopharynx by TAMMI with non-probe detection 2025-04-15 19:27:07 [facility] Not detected (missing) (missing) Result panel 5122 Parainfluenza virus 4 RNA [Presence] in Nasopharynx by TAMMI with non-probe detection 2025-04-15 19:27:07 [facility] Not detected (missing) (missing) Result panel 5123 Respiratory syncytial virus RNA [Presence] in Nasopharynx by TAMMI with non-probe detec 2025-04-15 19:27:07 [facility] Not detected (missing) (missing) Result panel 5124 Bordetella pertussis.pertussis toxin promoter region [Presence] in Nasopharynx by TAMMI 2025-04-15 19:27:07 [facility] Not detected (missing) (missing) Result panel 5125 Chlamydophila pneumoniae DNA [Presence] in Nasopharynx by TAMMI with non-probe detectio 2025-04-15 19:27:07 [facility] Not detected (missing) (missing) Result panel 5126 Mycoplasma pneumoniae DNA [Presence] in Nasopharynx by TAMMI with non-probe detection 2025-04-15 19:27:07 [facility] Not detected (missing) (missing) Result panel 5127 Adenovirus DNA [Presence] in Nasopharynx by TAMMI with non-probe detection 2025-04-15 19:27:07 [facility] Not detected (missing) (missing) Result panel 5128 SARS-CoV-2 (COVID-19) RNA [Presence] in Nasopharynx by TAMMI with non-probe detection 2025-04-15 19:27:07 [facility] Not detected (missing) (missing) Result panel 5129 Human coronavirus 229E RNA [Presence] in Nasopharynx by TAMMI with non-probe detection 2025-04-15 19:27:07 [facility] Not detected (missing) (missing) Result panel 5130 Human coronavirus HKU1 RNA [Presence] in Nasopharynx by TAMMI with non-probe detection 2025-04-15 19:27:07 [facility] Not detected (missing) (missing) Result panel 5131 Human coronavirus NL63 RNA [Presence] in Nasopharynx by TAMMI with non-probe detection 2025-04-15 19:27:07 [facility] Not detected (missing) (missing) Result panel 5132 Human coronavirus OC43 RNA [Presence] in Nasopharynx by TAMMI with non-probe detection 2025-04-15 19:27:07 [facility] Not detected (missing) (missing) Result panel 5133 Human metapneumovirus RNA [Presence] in Nasopharynx by TAMMI with non-probe detection 2025-04-15 19:27:07 [facility] Not detected (missing) (missing) Result panel 5134 Rhinovirus+Enterovirus RNA [Presence] in Nasopharynx by TAMMI with non-probe detection 2025-04-15 19:27:07 [facility] Not detected (missing) (missing) Result panel 5135 Influenza virus A RNA [Presence] in Nasopharynx by TAMMI with non-probe detection 2025-04-15 19:27:07 [facility] Not detected (missing) (missing) Result panel 5136 Influenza virus B RNA [Presence] in Nasopharynx by TAMMI with non-probe detection 2025-04-15 19:27:07 [facility] Not detected (missing) (missing) Result panel 5137 Parainfluenza virus 1 RNA [Presence] in Nasopharynx by TAMMI with non-probe detection 2025-04-15 19:27:07 [facility] Not detected (missing) (missing) Result panel 5138 Parainfluenza virus 2 RNA [Presence] in Nasopharynx by TAMMI with non-probe detection 2025-04-15 19:27:07 [facility] Not detected (missing) (missing) Result panel 5139 Parainfluenza virus 3 RNA [Presence] in Nasopharynx by TAMMI with non-probe detection 2025-04-15 19:27:07 [facility] Not detected (missing) (missing) Result panel 5140 Parainfluenza virus 4 RNA [Presence] in Nasopharynx by TAMMI with non-probe detection 2025-04-15 19:27:07 [facility] Not detected (missing) (missing) Result panel 5141 Respiratory syncytial virus RNA [Presence] in Nasopharynx by TAMMI with non-probe detec 2025-04-15 19:27:07 [facility] Not detected (missing) (missing) Result panel 5142 Bordetella pertussis.pertussis toxin promoter region [Presence] in Nasopharynx by TAMMI 2025-04-15 19:27:07 [facility] Not detected (missing) (missing) Result panel 5143 Chlamydophila pneumoniae DNA [Presence] in Nasopharynx by TAMMI with non-probe detectio 2025-04-15 19:27:07 [facility] Not detected (missing) (missing) Result panel 5144 Mycoplasma pneumoniae DNA [Presence] in Nasopharynx by TAMMI with non-probe detection 2025-04-15 19:27:07 [facility] Not detected (missing) (missing) Result panel 5145 Adenovirus DNA [Presence] in Nasopharynx by TAMMI with non-probe detection 2025-04-15 19:27:07 [facility] Not detected (missing) (missing) Result panel 5146 SARS-CoV-2 (COVID-19) RNA [Presence] in Nasopharynx by TAMMI with non-probe detection 2025-04-15 19:27:07 [facility] Not detected (missing) (missing) Result panel 5147 Human coronavirus 229E RNA [Presence] in Nasopharynx by TAMMI with non-probe detection 2025-04-15 19:27:07 [facility] Not detected (missing) (missing) Result panel 5148 Human coronavirus HKU1 RNA [Presence] in Nasopharynx by TAMMI with non-probe detection 2025-04-15 19:27:07 [facility] Not detected (missing) (missing) Result panel 5149 Human coronavirus NL63 RNA [Presence] in Nasopharynx by TAMMI with non-probe detection 2025-04-15 19:27:07 [facility] Not detected (missing) (missing) Result panel 5150 Human coronavirus OC43 RNA [Presence] in Nasopharynx by TAMMI with non-probe detection 2025-04-15 19:27:07 [facility] Not detected (missing) (missing) Result panel 5151 Human metapneumovirus RNA [Presence] in Nasopharynx by TAMMI with non-probe detection 2025-04-15 19:27:07 [facility] Not detected (missing) (missing) Result panel 5152 Rhinovirus+Enterovirus RNA [Presence] in Nasopharynx by TAMMI with non-probe detection 2025-04-15 19:27:07 [facility] Not detected (missing) (missing) Result panel 5153 Influenza virus A RNA [Presence] in Nasopharynx by TAMMI with non-probe detection 2025-04-15 19:27:07 [facility] Not detected (missing) (missing) Result panel 5154 Influenza virus B RNA [Presence] in Nasopharynx by TAMMI with non-probe detection 2025-04-15 19:27:07 [facility] Not detected (missing) (missing) Result panel 5155 Parainfluenza virus 1 RNA [Presence] in Nasopharynx by TAMMI with non-probe detection 2025-04-15 19:27:07 [facility] Not detected (missing) (missing) Result panel 5156 Parainfluenza virus 2 RNA [Presence] in Nasopharynx by TAMMI with non-probe detection 2025-04-15 19:27:07 [facility] Not detected (missing) (missing) Result panel 5157 Parainfluenza virus 3 RNA [Presence] in Nasopharynx by TAMMI with non-probe detection 2025-04-15 19:27:07 [facility] Not detected (missing) (missing) Result panel 5158 Parainfluenza virus 4 RNA [Presence] in Nasopharynx by TAMMI with non-probe detection 2025-04-15 19:27:07 [facility] Not detected (missing) (missing) Result panel 5159 Respiratory syncytial virus RNA [Presence] in Nasopharynx by TAMMI with non-probe detec 2025-04-15 19:27:07 [facility] Not detected (missing) (missing) Result panel 5160 Bordetella pertussis.pertussis toxin promoter region [Presence] in Nasopharynx by TAMMI 2025-04-15 19:27:07 [facility] Not detected (missing) (missing) Result panel 5161 Chlamydophila pneumoniae DNA [Presence] in Nasopharynx by TAMMI with non-probe detectio 2025-04-15 19:27:07 [facility] Not detected (missing) (missing) Result panel 5162 Mycoplasma pneumoniae DNA [Presence] in Nasopharynx by TAMMI with non-probe detection 2025-04-15 19:27:07 [facility] Not detected (missing) (missing) Result panel 5163 Adenovirus DNA [Presence] in Nasopharynx by TAMMI with non-probe detection 2025-04-15 19:27:07 [facility] Not detected (missing) (missing) Result panel 5164 SARS-CoV-2 (COVID-19) RNA [Presence] in Nasopharynx by TAMMI with non-probe detection 2025-04-15 19:27:07 [facility] Not detected (missing) (missing) Result panel 5165 Human coronavirus 229E RNA [Presence] in Nasopharynx by TAMMI with non-probe detection 2025-04-15 19:27:07 [facility] Not detected (missing) (missing) Result panel 5166 Human coronavirus HKU1 RNA [Presence] in Nasopharynx by TAMMI with non-probe detection 2025-04-15 19:27:07 [facility] Not detected (missing) (missing) Result panel 5167 Human coronavirus NL63 RNA [Presence] in Nasopharynx by TAMMI with non-probe detection 2025-04-15 19:27:07 [facility] Not detected (missing) (missing) Result panel 5168 Human coronavirus OC43 RNA [Presence] in Nasopharynx by TAMMI with non-probe detection 2025-04-15 19:27:07 [facility] Not detected (missing) (missing) Result panel 5169 Human metapneumovirus RNA [Presence] in Nasopharynx by TAMMI with non-probe detection 2025-04-15 19:27:07 [facility] Not detected (missing) (missing) Result panel 5170 Rhinovirus+Enterovirus RNA [Presence] in Nasopharynx by TAMMI with non-probe detection 2025-04-15 19:27:07 [facility] Not detected (missing) (missing) Result panel 5171 Influenza virus A RNA [Presence] in Nasopharynx by TAMMI with non-probe detection 2025-04-15 19:27:07 [facility] Not detected (missing) (missing) Result panel 5172 Influenza virus B RNA [Presence] in Nasopharynx by TAMMI with non-probe detection 2025-04-15 19:27:07 [facility] Not detected (missing) (missing) Result panel 5173 Parainfluenza virus 1 RNA [Presence] in Nasopharynx by TAMMI with non-probe detection 2025-04-15 19:27:07 [facility] Not detected (missing) (missing) Result panel 5174 Parainfluenza virus 2 RNA [Presence] in Nasopharynx by TAMMI with non-probe detection 2025-04-15 19:27:07 [facility] Not detected (missing) (missing) Result panel 5175 Parainfluenza virus 3 RNA [Presence] in Nasopharynx by TAMMI with non-probe detection 2025-04-15 19:27:07 [facility] Not detected (missing) (missing) Result panel 5176 Parainfluenza virus 4 RNA [Presence] in Nasopharynx by TAMMI with non-probe detection 2025-04-15 19:27:07 [facility] Not detected (missing) (missing) Result panel 5177 Respiratory syncytial virus RNA [Presence] in Nasopharynx by TAMMI with non-probe detec 2025-04-15 19:27:07 [facility] Not detected (missing) (missing) Result panel 5178 Bordetella pertussis.pertussis toxin promoter region [Presence] in Nasopharynx by TAMMI 2025-04-15 19:27:07 [facility] Not detected (missing) (missing) Result panel 5179 Chlamydophila pneumoniae DNA [Presence] in Nasopharynx by TAMMI with non-probe detectio 2025-04-15 19:27:07 [facility] Not detected (missing) (missing) Result panel 5180 Mycoplasma pneumoniae DNA [Presence] in Nasopharynx by TAMMI with non-probe detection 2025-04-15 19:27:07 [facility] Not detected (missing) (missing) Result panel 5181 Adenovirus DNA [Presence] in Nasopharynx by TAMMI with non-probe detection 2025-04-15 19:27:07 [facility] Not detected (missing) (missing) Result panel 5182 SARS-CoV-2 (COVID-19) RNA [Presence] in Nasopharynx by TAMMI with non-probe detection 2025-04-15 19:27:07 [facility] Not detected (missing) (missing) Result panel 5183 Human coronavirus 229E RNA [Presence] in Nasopharynx by TAMMI with non-probe detection 2025-04-15 19:27:07 [facility] Not detected (missing) (missing) Result panel 5184 Human coronavirus HKU1 RNA [Presence] in Nasopharynx by TAMMI with non-probe detection 2025-04-15 19:27:07 [facility] Not detected (missing) (missing) Result panel 5185 Human coronavirus NL63 RNA [Presence] in Nasopharynx by TAMMI with non-probe detection 2025-04-15 19:27:07 [facility] Not detected (missing) (missing) Result panel 5186 Human coronavirus OC43 RNA [Presence] in Nasopharynx by TAMMI with non-probe detection 2025-04-15 19:27:07 [facility] Not detected (missing) (missing) Result panel 5187 Human metapneumovirus RNA [Presence] in Nasopharynx by TAMMI with non-probe detection 2025-04-15 19:27:07 [facility] Not detected (missing) (missing) Result panel 5188 Rhinovirus+Enterovirus RNA [Presence] in Nasopharynx by TAMMI with non-probe detection 2025-04-15 19:27:07 [facility] Not detected (missing) (missing) Result panel 5189 Influenza virus A RNA [Presence] in Nasopharynx by TAMMI with non-probe detection 2025-04-15 19:27:07 [facility] Not detected (missing) (missing) Result panel 5190 Influenza virus B RNA [Presence] in Nasopharynx by TAMMI with non-probe detection 2025-04-15 19:27:07 [facility] Not detected (missing) (missing) Result panel 5191 Parainfluenza virus 1 RNA [Presence] in Nasopharynx by TAMMI with non-probe detection 2025-04-15 19:27:07 [facility] Not detected (missing) (missing) Result panel 5192 Parainfluenza virus 2 RNA [Presence] in Nasopharynx by TAMMI with non-probe detection 2025-04-15 19:27:07 [facility] Not detected (missing) (missing) Result panel 5193 Parainfluenza virus 3 RNA [Presence] in Nasopharynx by TAMMI with non-probe detection 2025-04-15 19:27:07 [facility] Not detected (missing) (missing) Result panel 5194 Parainfluenza virus 4 RNA [Presence] in Nasopharynx by TAMMI with non-probe detection 2025-04-15 19:27:07 [facility] Not detected (missing) (missing) Result panel 5195 Respiratory syncytial virus RNA [Presence] in Nasopharynx by TAMMI with non-probe detec 2025-04-15 19:27:07 [facility] Not detected (missing) (missing) Result panel 5196 Bordetella pertussis.pertussis toxin promoter region [Presence] in Nasopharynx by TAMMI 2025-04-15 19:27:07 [facility] Not detected (missing) (missing) Result panel 5197 Chlamydophila pneumoniae DNA [Presence] in Nasopharynx by TAMMI with non-probe detectio 2025-04-15 19:27:07 [facility] Not detected (missing) (missing) Result panel 5198 Mycoplasma pneumoniae DNA [Presence] in Nasopharynx by TAMMI with non-probe detection 2025-04-15 19:27:07 [facility] Not detected (missing) (missing) Result panel 5199 Adenovirus DNA [Presence] in Nasopharynx by TAMMI with non-probe detection 2025-04-15 19:27:07 [facility] Not detected (missing) (missing) Result panel 5200 SARS-CoV-2 (COVID-19) RNA [Presence] in Nasopharynx by TAMMI with non-probe detection 2025-04-15 19:27:07 [facility] Not detected (missing) (missing) Result panel 5201 Human coronavirus 229E RNA [Presence] in Nasopharynx by TAMMI with non-probe detection 2025-04-15 19:27:07 [facility] Not detected (missing) (missing) Result panel 5202 Human coronavirus HKU1 RNA [Presence] in Nasopharynx by TAMMI with non-probe detection 2025-04-15 19:27:07 [facility] Not detected (missing) (missing) Result panel 5203 Human coronavirus NL63 RNA [Presence] in Nasopharynx by TAMMI with non-probe detection 2025-04-15 19:27:07 [facility] Not detected (missing) (missing) Result panel 5204 Human coronavirus OC43 RNA [Presence] in Nasopharynx by TAMMI with non-probe detection 2025-04-15 19:27:07 [facility] Not detected (missing) (missing) Result panel 5205 Human metapneumovirus RNA [Presence] in Nasopharynx by TAMMI with non-probe detection 2025-04-15 19:27:07 [facility] Not detected (missing) (missing) Result panel 5206 Rhinovirus+Enterovirus RNA [Presence] in Nasopharynx by TAMMI with non-probe detection 2025-04-15 19:27:07 [facility] Not detected (missing) (missing) Result panel 5207 Influenza virus A RNA [Presence] in Nasopharynx by TAMMI with non-probe detection 2025-04-15 19:27:07 [facility] Not detected (missing) (missing) Result panel 5208 Influenza virus B RNA [Presence] in Nasopharynx by TAMMI with non-probe detection 2025-04-15 19:27:07 [facility] Not detected (missing) (missing) Result panel 5209 Parainfluenza virus 1 RNA [Presence] in Nasopharynx by TAMMI with non-probe detection 2025-04-15 19:27:07 [facility] Not detected (missing) (missing) Result panel 5210 Parainfluenza virus 2 RNA [Presence] in Nasopharynx by TAMMI with non-probe detection 2025-04-15 19:27:07 [facility] Not detected (missing) (missing) Result panel 5211 Parainfluenza virus 3 RNA [Presence] in Nasopharynx by TAMMI with non-probe detection 2025-04-15 19:27:07 [facility] Not detected (missing) (missing) Result panel 5212 Parainfluenza virus 4 RNA [Presence] in Nasopharynx by TAMMI with non-probe detection 2025-04-15 19:27:07 [facility] Not detected (missing) (missing) Result panel 5213 Respiratory syncytial virus RNA [Presence] in Nasopharynx by TAMMI with non-probe detec 2025-04-15 19:27:07 [facility] Not detected (missing) (missing) Result panel 5214 Bordetella pertussis.pertussis toxin promoter region [Presence] in Nasopharynx by TAMMI 2025-04-15 19:27:07 [facility] Not detected (missing) (missing) Result panel 5215 Chlamydophila pneumoniae DNA [Presence] in Nasopharynx by TAMMI with non-probe detectio 2025-04-15 19:27:07 [facility] Not detected (missing) (missing) Result panel 5216 Mycoplasma pneumoniae DNA [Presence] in Nasopharynx by TAMMI with non-probe detection 2025-04-15 19:27:07 [facility] Not detected (missing) (missing) Result panel 5217 Adenovirus DNA [Presence] in Nasopharynx by TAMMI with non-probe detection 2025-04-15 19:27:07 [facility] Not detected (missing) (missing) Result panel 5218 SARS-CoV-2 (COVID-19) RNA [Presence] in Nasopharynx by TAMMI with non-probe detection 2025-04-15 19:27:07 [facility] Not detected (missing) (missing) Result panel 5219 Human coronavirus 229E RNA [Presence] in Nasopharynx by TAMMI with non-probe detection 2025-04-15 19:27:07 [facility] Not detected (missing) (missing) Result panel 5220 Human coronavirus HKU1 RNA [Presence] in Nasopharynx by TAMMI with non-probe detection 2025-04-15 19:27:07 [facility] Not detected (missing) (missing) Result panel 5221 Human coronavirus NL63 RNA [Presence] in Nasopharynx by TAMMI with non-probe detection 2025-04-15 19:27:07 [facility] Not detected (missing) (missing) Result panel 5222 Human coronavirus OC43 RNA [Presence] in Nasopharynx by TAMMI with non-probe detection 2025-04-15 19:27:07 [facility] Not detected (missing) (missing) Result panel 5223 Human metapneumovirus RNA [Presence] in Nasopharynx by TAMMI with non-probe detection 2025-04-15 19:27:07 [facility] Not detected (missing) (missing) Result panel 5224 Rhinovirus+Enterovirus RNA [Presence] in Nasopharynx by TAMMI with non-probe detection 2025-04-15 19:27:07 [facility] Not detected (missing) (missing) Result panel 5225 Influenza virus A RNA [Presence] in Nasopharynx by TAMMI with non-probe detection 2025-04-15 19:27:07 [facility] Not detected (missing) (missing) Result panel 5226 Influenza virus B RNA [Presence] in Nasopharynx by TAMMI with non-probe detection 2025-04-15 19:27:07 [facility] Not detected (missing) (missing) Result panel 5227 Parainfluenza virus 1 RNA [Presence] in Nasopharynx by TAMMI with non-probe detection 2025-04-15 19:27:07 [facility] Not detected (missing) (missing) Result panel 5228 Parainfluenza virus 2 RNA [Presence] in Nasopharynx by TAMMI with non-probe detection 2025-04-15 19:27:07 [facility] Not detected (missing) (missing) Result panel 5229 Parainfluenza virus 3 RNA [Presence] in Nasopharynx by TAMMI with non-probe detection 2025-04-15 19:27:07 [facility] Not detected (missing) (missing) Result panel 5230 Parainfluenza virus 4 RNA [Presence] in Nasopharynx by TAMMI with non-probe detection 2025-04-15 19:27:07 [facility] Not detected (missing) (missing) Result panel 5231 Respiratory syncytial virus RNA [Presence] in Nasopharynx by TAMMI with non-probe detec 2025-04-15 19:27:07 [facility] Not detected (missing) (missing) Result panel 5232 Bordetella pertussis.pertussis toxin promoter region [Presence] in Nasopharynx by TAMMI 2025-04-15 19:27:07 [facility] Not detected (missing) (missing) Result panel 5233 Chlamydophila pneumoniae DNA [Presence] in Nasopharynx by TAMMI with non-probe detectio 2025-04-15 19:27:07 [facility] Not detected (missing) (missing) Result panel 5234 Mycoplasma pneumoniae DNA [Presence] in Nasopharynx by TAMMI with non-probe detection 2025-04-15 19:27:07 [facility] Not detected (missing) (missing) Result panel 5235 Adenovirus DNA [Presence] in Nasopharynx by TAMMI with non-probe detection 2025-04-15 19:27:07 [facility] Not detected (missing) (missing) Result panel 5236 SARS-CoV-2 (COVID-19) RNA [Presence] in Nasopharynx by TAMMI with non-probe detection 2025-04-15 19:27:07 [facility] Not detected (missing) (missing) Result panel 5237 Human coronavirus 229E RNA [Presence] in Nasopharynx by TAMMI with non-probe detection 2025-04-15 19:27:07 [facility] Not detected (missing) (missing) Result panel 5238 Human coronavirus HKU1 RNA [Presence] in Nasopharynx by TAMMI with non-probe detection 2025-04-15 19:27:07 [facility] Not detected (missing) (missing) Result panel 5239 Human coronavirus NL63 RNA [Presence] in Nasopharynx by TAMMI with non-probe detection 2025-04-15 19:27:07 [facility] Not detected (missing) (missing) Result panel 5240 Human coronavirus OC43 RNA [Presence] in Nasopharynx by TAMMI with non-probe detection 2025-04-15 19:27:07 [facility] Not detected (missing) (missing) Result panel 5241 Human metapneumovirus RNA [Presence] in Nasopharynx by TAMMI with non-probe detection 2025-04-15 19:27:07 [facility] Not detected (missing) (missing) Result panel 5242 Rhinovirus+Enterovirus RNA [Presence] in Nasopharynx by TAMMI with non-probe detection 2025-04-15 19:27:07 [facility] Not detected (missing) (missing) Result panel 5243 Influenza virus A RNA [Presence] in Nasopharynx by TAMMI with non-probe detection 2025-04-15 19:27:07 [facility] Not detected (missing) (missing) Result panel 5244 Influenza virus B RNA [Presence] in Nasopharynx by TAMMI with non-probe detection 2025-04-15 19:27:07 [facility] Not detected (missing) (missing) Result panel 5245 Parainfluenza virus 1 RNA [Presence] in Nasopharynx by TAMMI with non-probe detection 2025-04-15 19:27:07 [facility] Not detected (missing) (missing) Result panel 5246 Parainfluenza virus 2 RNA [Presence] in Nasopharynx by TAMMI with non-probe detection 2025-04-15 19:27:07 [facility] Not detected (missing) (missing) Result panel 5247 Parainfluenza virus 3 RNA [Presence] in Nasopharynx by TAMMI with non-probe detection 2025-04-15 19:27:07 [facility] Not detected (missing) (missing) Result panel 5248 Parainfluenza virus 4 RNA [Presence] in Nasopharynx by TAMMI with non-probe detection 2025-04-15 19:27:07 [facility] Not detected (missing) (missing) Result panel 5249 Respiratory syncytial virus RNA [Presence] in Nasopharynx by TAMMI with non-probe detec 2025-04-15 19:27:07 [facility] Not detected (missing) (missing) Result panel 5250 Bordetella pertussis.pertussis toxin promoter region [Presence] in Nasopharynx by TAMMI 2025-04-15 19:27:07 [facility] Not detected (missing) (missing) Result panel 5251 Chlamydophila pneumoniae DNA [Presence] in Nasopharynx by TAMMI with non-probe detectio 2025-04-15 19:27:07 [facility] Not detected (missing) (missing) Result panel 5252 Mycoplasma pneumoniae DNA [Presence] in Nasopharynx by TAMMI with non-probe detection 2025-04-15 19:27:07 [facility] Not detected (missing) (missing) Result panel 5253 Thyroid Stimulating Hormone 2025-04-15 19:58 [facility] 2.06 uiu/ml (missing) Result panel 5254 Adenovirus 2025-04-15 20:21 [facility] Not Detected (missing) (missing) B. parapertussis 2025-04-15 20:21 [facility] Not Detected (missing) (missing) Bordetella pertussis 2025-04-15 20:21 [facility] Not Detected (missing) (missing) Chlamydophila pneumoniae 2025-04-15 20:21 [facility] Not Detected (missing) (missing) Coronavirus 229E 2025-04-15 20:21 [facility] Not Detected (missing) (missing) Coronavirus HKU1 2025-04-15 20:21 [facility] Not Detected (missing) (missing) Coronavirus NL 63 2025-04-15 20:21 [facility] Not Detected (missing) (missing) Coronavirus OC43 2025-04-15 20:21 [facility] Not Detected (missing) (missing) Human Metapneumovirus 2025-04-15 20:21 [facility] Not Detected (missing) (missing) Human Rhinovirus/Enterovi bud 2025-04-15 20:21 [facility] Not Detected (missing) (missing) Influenza A 2025-04-15 20:21 [facility] Not Detected (missing) (missing) Influenza B 2025-04-15 20:21 [facility] Not Detected (missing) (missing) Mycoplasma pneumoniae 2025-04-15 20:21 [facility] Not Detected (missing) (missing) Parainfluenza Virus 1 2025-04-15 20:21 [facility] Not Detected (missing) (missing) Parainfluenza Virus 2 2025-04-15 20:21 [facility] Not Detected (missing) (missing) Parainfluenza Virus 3 2025-04-15 20:21 [facility] Not Detected (missing) (missing) Parainfluenza Virus 4 2025-04-15 20:21 [facility] Not Detected (missing) (missing) Respiratory Syncytial Virus 2025-04-15 20:21 [facility] Not Detected (missing) (missing) SARS- CoV-2 2025-04-15 20:21 [facility] Not Detected (missing) The [employer] SARS-CoV-2 test is a rapid, real-time RT-PCR [...] observations, patient history, and epidemiological information. The [employer] SARS-CoV-2 test is only for use under the Food and Drug Administrations Emergency Use Authorization. Result panel 5255 Emergency department note 2025-04-15 21:23 [facility] (missing) (missing) (missing ) Result panel 5256 POC Glucose 2025-04-16 01:18 [facility] 393 mg/dl (missing) Result panel 5257 White blood cell count 2025-04-16 04:31:08 [facility] 1 0.6 X10^3/uL (missing) Result panel 5258 Red blood cell count 2025-04-16 04:31:08 [facility] 4.2 6 X10^6/uL (missing) Result panel 5259 Hemoglobin 2025-04-16 04:31:08 [facility] 13.0 g/d L (missing) Result panel 5260 Hematocrit 2025-04-16 04:31:08 [facility] 38.4 % (missing) Result panel 5261 MCV (mean corpuscular volume ) determination 2025-04-16 04:31:08 [facility] 90.0 fL (mis sing) Result panel 5262 Mean corpuscular hemoglobin (MCH) determination 2025-04-16 04:31:08 [facility] 30.5 PG (missing) Result panel 5263 Mean corpuscular hemoglobin concentration (MCHC) determination 2025-04-16 04:31:08 [facility] 33.9 % (mis sing) Result panel 5264 Red cell distribution width determination 2025-04-16 04:31:08 [facility] 13.1 % (mis sing) Result panel 5265 Platelet count 2025-04-16 04:31:08 [facility] 256 X10^3/uL (missing) Result panel 5266 Automated neutrophil % 2025-04-16 04:31:08 [facility] 8 6.1 % (missing) Result panel 5267 Automated lymphocyte % 2025-04-16 04:31:08 [facility] 1 2.5 % (missing) Result panel 5268 Automated monocyte % 2025-04-16 04:31:08 [facility] 0.7 % (missing) Result panel 5269 Automated eosinophil % 2025-04-16 04:31:08 [facility] 0 .0 % (missing) Result panel 5270 Automated basophil % 2025-04-16 04:31:08 [facility] 0.7 % (missing) Result panel 5271 Absolute neutrophil count 2025-04-16 04:31:08 [facility] l 9100 /uL (missing) Result panel 5272 Absolute lymphocyte [facility] 2025-04-16 [facility] Result panel 5273 Automated blood monocyte count 2025-04-16 04:31:08 [facility] spital 100 /uL (missing) Result panel 5274 Automated eosinophil count 2025-04-16 04:31[facility]08 [facility] Result panel 5275 Automated basophil count 2025-04-16 04:31:08 [facility] 100 /uL (missing) Result panel 5276 Sodium [Moles/volume] in Serum or Plasma 2025-04-16 04:31:08 [facility] Result panel 5277 Potassium [Moles/volume] in Serum or Plasma 2025-04-16 04:31:08 [facility] 4.8 mmol/L [facility] Result panel 5278 Chloride [Moles/volume] in Serum or Plasma 2025-04-16 04:31:08 [facility] 101 mmol/L ( issing) Result panel 5279 Carbon dioxide, total [Moles/volume] in Serum or Plasma 2025-04-16 04:31:08 [facility] 25 mmol/L (miss ing) Result panel 5280 Urea nitrogen [Mass/volume] in Serum or Plasma 2025-04-16 04:31:08 [facility] 33 mg/dL ([facility]) Result panel 5281 Creatinine [Mass/volume] in Serum or Plasma 2025-04-16 04:31:08 [facility] 1.05 mg/dL ([facility]) Result panel 5282 Glomerular filtration rate (GFR) estimation 2025-04-16 04:31:08 [facility] 55 mL/min ( missing) Result panel 5283 BUN/creatinine ratio 2025-04-16 04:31:08 [facility] 31. 4 (missing) (missing) Result panel 5284 Glucose [Mass/volume] in Serum or Plasma 2025-04-16 04:31:08 [facility] 244 mg/dL ([facility]) Result panel 5285 Calcium [Mass/volume] in Serum or Plasma 2025-04-16 04:31:08 [facility] 8.5 mg/dL ([facility]) Result panel 5286 White blood cell count 2025-04-16 04:31:08 [facility] 1 0.6 X10^3/uL (missing) Result panel 5287 Red blood cell count 2025-04-16 04:31:08 [facility] 4.2 6 X10^6/uL (missing) Result panel 5288 Hemoglobin 2025-04-16 04:31:08 [facility] 13.0 g/d L (missing) Result panel 5289 Hematocrit 2025-04-16 04:31:08 [facility] 38.4 % (missing) Result panel 5290 MCV (mean corpuscular volume ) determination 2025-04-16 04:31:08 [facility] 90.0 fL (mis sing) Result panel 5291 Mean corpuscular hemoglobin (MCH) determination 2025-04-16 04:31:08 [facility] 30.5 PG (missing) Result panel 5292 Mean corpuscular hemoglobin concentration (MCHC) determination 2025-04-16 04:31:08 [facility] 33.9 % (mis sing) Result panel 5293 Red cell distribution width determination 2025-04-16 04:31:08 [facility] 13.1 % (mis sing) Result panel 5294 Platelet count 2025-04-16 04:31:08 [facility] 256 X10^3/uL (missing) Result panel 5295 Automated neutrophil % 2025-04-16 04:31:08 [facility] 8 6.1 % (missing) Result panel 5296 Automated lymphocyte % 2025-04-16 04:31:08 [facility] 1 2.5 % (missing) Result panel 5297 Automated monocyte % 2025-04-16 04:31:08 [facility] 0.7 % (missing) Result panel 5298 Automated eosinophil % 2025-04-16 04:31:08 [facility] 0 .0 % (missing) Result panel 5299 Automated basophil % 2025-04-16 04:31:08 [facility] 0.7 % (missing) Result panel 5300 Absolute neutrophil count 2025-04-16 04:31:08 [facility] l 9100 /uL (missing) Result panel 5301 Absolute lymphocyte count 2025-04-16 04:31:08 [facility] l 1300 /uL (missing) Result panel 5302 Automated blood monocyte count 2025-04-16 04:31:08 [facility] spital 100 /uL (missing) Result panel 5303 Automated eosinophil count 2025-04-16 [facility] Result panel 5304 Automated basophil count 2025-04-16 04:31:08 [facility] 100 /uL (missing) Result panel 5305 Sodium [Moles/volume] in Serum or Plasma 2025-04-16 04:31:08 [facility] 135 mmol/L ([facility]) Result panel 5306 Potassium [Moles/volume] in Serum or Plasma 2025-04-16 04:31:08 [facility] 4.8 mmol[facility]L [facility] Result panel 5307 Chloride [Moles/volume] in Serum or Plasma 2025-04-16 04:31:08 [facility] 101 mmol/L [facility] Result panel 5308 Carbon dioxide, total [Moles/volume] in Serum or Plasma 2025-04-16 04:31:08 [facility] 25 mmol/L ([facility]) Result panel 5309 Urea nitrogen [Mass/volume] in Serum or Plasma 2025-04-16 04:31:08 [facility] 33 mg/dL [facility] Result panel 5310 Creatinine [Mass/volume] in Serum or Plasma 2025-04-16 04:31:08 [facility] 1.05 mg/dL ([facility]) Result panel 5311 Glomerular filtration rate (GFR) estimation 2025-04-16 04:31:08 [facility] 55 mL/min ( missing) Result panel 5312 BUN/creatinine ratio 2025-04-16 04:31:08 [facility] 31. 4 (missing) (missing) Result panel 5313 Glucose [Mass/volume] in Serum or Plasma 2025-04-16 04:31:08 [facility] 244 mg/dL ([facility]) Result panel 5314 Calcium [Mass/volume] in Serum or Plasma 2025-04-16 04:31:08 [facility] 8.5 mg/dL ([facility]) Result panel 5315 White blood cell count 2025-04-16 05:31:07 [facility] 1 0.6 X10^3/uL (missing) Result panel 5316 Red blood cell count 2025-04-16 05:31:07 [facility] 4.2 6 X10^6/uL (missing) Result panel 5317 Hemoglobin 2025-04-16 05:31:07 [facility] 13.0 g/d L (missing) Result panel 5318 Hematocrit 2025-04-16 05:31:07 [facility] 38.4 % (missing) Result panel 5319 MCV (mean corpuscular volume ) determination 2025-04-16 05:31:07 [facility] 90.0 fL (mis sing) Result panel 5320 Mean corpuscular hemoglobin (MCH) determination 2025-04-16 05:31:07 [facility] 30.5 PG (missing) Result panel 5321 Mean corpuscular hemoglobin concentration (MCHC) determination 2025-04-16 05:31:07 [facility] 33.9 % (mis sing) Result panel 5322 Red cell distribution width determination 2025-04-16 05:31:07 [facility] 13.1 % (mis sing) Result panel 5323 Platelet count 2025-04-16 05:31:07 [facility] 256 X10^3/uL (missing) Result panel 5324 Automated neutrophil % 2025-04-16 05:31:07 [facility] 8 6.1 % (missing) Result panel 5325 Automated lymphocyte % 2025-04-16 05:31:07 [facility] 1 2.5 % (missing) Result panel 5326 Automated monocyte % 2025-04-16 05:31:07 [facility] 0.7 % (missing) Result panel 5327 Automated eosinophil % 2025-04-16 05:31:07 [facility] 0 .0 % (missing) Result panel 5328 Automated basophil % 2025-04-16 05:31:07 [facility] 0.7 % (missing) Result panel 5329 Absolute neutrophil count 2025-04-16 05:31[facility]07 [facility] ([facility] Result panel 5330 Absolute lymphocyte count 2025-04-16 05:31:07 [facility] l 1300 /uL (missing) Result panel 5331 Automated blood monocyte count 2025-04-16 05:31:07 [facility] spital 100 /uL (missing) Result panel 5332 Automated eosinophil count 2025-04-16 05:31:07 [facility] 0 /uL (missing) Result panel 5333 Automated basophil count 2025-04-16 05:31:07 [facility] 100 /uL (missing) Result panel 5334 Sodium [Moles/volume] in Serum or Plasma 2025-04-16 05:31:07 [facility] 135 mmol/L ([facility]) Result panel 5335 Potassium [Moles/volume] in Serum or Plasma 2025-04-16 05:31:07 [facility] 4.8 mmol/L [facility] Result panel 5336 Chloride [Moles/volume] in Serum or Plasma 2025-04-16 05:31:07 [facility] 101 mmol/L ([facility]) Result panel 5337 Carbon dioxide, total [Moles/volume] in Serum or Plasma 2025-04-16 05:31:07 [facility] 25 mmol/L ([facility]) Result panel 5338 Urea nitrogen [Mass/volume] in Serum or Plasma 2025-04-16 05:31:07 [facility] 33 mg/dL [facility] Result panel 5339 Creatinine [Mass/volume] in Serum or Plasma 2025-04-16 05:31:07 [facility] 1.05 mg/dL ([facility]) Result panel 5340 Glomerular filtration rate (GFR) estimation 2025-04-16 05:31:07 [facility] 55 mL/min ( missing) Result panel 5341 BUN/creatinine ratio 2025-04-16 05:31:07 [facility] 31. 4 (missing) (missing) Result panel 5342 Glucose [Mass/volume] in Serum or Plasma 2025-04-16 05:31:07 [facility] 244 mg/dL ([facility]) Result panel 5343 Calcium [Mass/volume] in Serum or Plasma 2025-04-16 05:31:07 [facility] 8.5 mg/dL ([facility]) Result panel 5344 White blood cell count 2025-04-16 05:31:07 [facility] 1 0.6 X10^3/uL (missing) Result panel 5345 Red blood cell count 2025-04-16 05:31:07 [facility] 4.2 6 X10^6/uL (missing) Result panel 5346 Hemoglobin 2025-04-16 05:31:07 [facility] 13.0 g/d L (missing) Result panel 5347 Hematocrit 2025-04-16 05:31:07 [facility] 38.4 % (missing) Result panel 5348 MCV (mean corpuscular volume ) determination 2025-04-16 05:31:07 [facility] 90.0 fL (mis sing) Result panel 5349 Mean corpuscular hemoglobin (MCH) determination 2025-04-16 05:31:07 [facility] 30.5 PG (missing) Result panel 5350 Mean corpuscular hemoglobin concentration (MCHC) determination 2025-04-16 05:31:07 [facility] 33.9 % (mis sing) Result panel 5351 Red cell distribution width determination 2025-04-16 05:31:07 [facility] 13.1 % (mis sing) Result panel 5352 Platelet count 2025-04-16 05:31:07 [facility] 256 X10^3/uL (missing) Result panel 5353 Automated neutrophil % 2025-04-16 05:31:07 [facility] 8 6.1 % (missing) Result panel 5354 Automated lymphocyte % 2025-04-16 05:31:07 [facility] 1 2.5 % (missing) Result panel 5355 Automated monocyte % 2025-04-16 05:31:07 [facility] 0.7 % (missing) Result panel 5356 Automated eosinophil % 2025-04-16 05:31:07 [facility] 0 .0 % (missing) Result panel 5357 Automated basophil % 2025-04-16 05:31:07 [facility] 0.7 % (missing) Result panel 5358 Absolute neutrophil count 2025-04-16 05:31[facility] Result panel 5359 Absolute lymphocyte count 2025-04-16 05:31[facility] 1300 /uL ([facility]) Result panel 5360 Automated blood monocyte count 2025-04-16 05:31:07 [facility] spital 100 /uL (missing) Result panel 5361 Automated eosinophil count 2025-04-16 05:31[facility] Result panel 5362 Automated basophil count 2025-04-16 05:31:07 [facility] 100 /uL (missing) Result panel 5363 Sodium [Moles/volume] in Serum or Plasma 2025-04-16 05:31:07 [facility] 135 mmol/L ([facility]) Result panel 5364 Potassium [Moles/volume] in Serum or Plasma 2025-04-16 05:31:07 [facility] 4.8 mmol/L [facility] Result panel 5365 Chloride [Moles/volume] in Serum or Plasma 2025-04-16 05:31:07 [facility] 101 mmol/L ([facility]) Result panel 5366 Carbon dioxide, total [Moles/volume] in Serum or Plasma 2025-04-16 05:31:07 [facility] 25 mmol/L ([facility]) Result panel 5367 Urea nitrogen [Mass/volume] in Serum or Plasma 2025-04-16 05:31:07 [facility] 33 mg/dL [facility] Result panel 5368 Creatinine [Mass/volume] in Serum or Plasma 2025-04-16 05:31:07 [facility] 1.05 mg/dL ([facility]) Result panel 5369 Glomerular filtration rate (GFR) estimation 2025-04-16 05:31:07 [facility] 55 mL/min ( missing) Result panel 5370 BUN/creatinine ratio 2025-04-16 05:31:07 [facility] 31. 4 (missing) (missing) Result panel 5371 Glucose [Mass/volume] in Serum or Plasma 2025-04-16 05:31:07 [facility] 244 mg/dL [facility] Result panel 5372 Calcium [Mass/volume] in Serum or Plasma 2025-04-16 05:31:07 [facility] 8.5 mg/dL ([facility] Result panel 5373 White blood cell count 2025-04-16 05:31:07 [facility] 1 0.6 X10^3/uL (missing) Result panel 5374 Red blood cell count 2025-04-16 05:31:07 [facility] 4.2 6 X10^6/uL (missing) Result panel 5375 Hemoglobin 2025-04-16 05:31:07 [facility] 13.0 g/d L (missing) Result panel 5376 Hematocrit 2025-04-16 05:31:07 [facility] 38.4 % (missing) Result panel 5377 MCV (mean corpuscular volume ) determination 2025-04-16 05:31:07 [facility] 90.0 fL (mis sing) Result panel 5378 Mean corpuscular hemoglobin (MCH) determination 2025-04-16 05:31:07 [facility] 30.5 PG (missing) Result panel 5379 Mean corpuscular hemoglobin concentration (MCHC) determination 2025-04-16 05:31:07 [facility] 33.9 % (mis sing) Result panel 5380 Red cell distribution width determination 2025-04-16 05:31:07 [facility] 13.1 % (mis sing) Result panel 5381 Platelet count 2025-04-16 05:31:07 [facility] 256 X10^3/uL (missing) Result panel 5382 Automated neutrophil % 2025-04-16 05:31:07 [facility] 8 6.1 % (missing) Result panel 5383 Automated lymphocyte % 2025-04-16 05:31:07 [facility] 1 2.5 % (missing) Result panel 5384 Automated monocyte % 2025-04-16 05:31:07 [facility] 0.7 % (missing) Result panel 5385 Automated eosinophil % 2025-04-16 05:31:07 [facility] 0 .0 % (missing) Result panel 5386 Automated basophil % 2025-04-16 05:31:07 [facility] 0.7 % (missing) Result panel 5387 Absolute neutrophil count 2025-04-16 05:31:07 [facility] 9100 /uL (missing) Result panel 5388 Absolute lymphocyte count 2025-04-16 05:[facility] ([facility] Result panel 5389 Automated blood monocyte count 2025-04-16 05:31:07 [facility] 100 /uL (missing) Result panel 5390 Automated eosinophil count 2025-04-16 05:31:07 [facility] 0 /uL (missing) Result panel 5391 Automated basophil count 2025-04-16 05:31:07 [facility] 100 /uL (missing) Result panel 5392 Sodium [Moles/volume] in Serum or Plasma 2025-04-16 05:31:07 [facility] 135 mmol/L ([facility]) Result panel 5393 Potassium [Moles/volume] in Serum or Plasma 2025-04-16 05:31:07 [facility] 4.8 mmol/L [facility] Result panel 5394 Chloride [Moles/volume] in Serum or Plasma 2025-04-16 05:31:07 [facility] 101 mmol/L ([facility]) Result panel 5395 Carbon dioxide, total [Moles/volume] in Serum or Plasma 2025-04-16 05:31:07 [facility] 25 mmol/L ([facility]) Result panel 5396 Urea nitrogen [Mass/volume] in Serum or Plasma 2025-04-16 05:31:07 [facility] 33 mg/dL ([facility]) Result panel 5397 Creatinine [Mass/volume] in Serum or Plasma 2025-04-16 05:31:07 [facility] 1.05 mg/dL ([facility]) Result panel 5398 Glomerular filtration rate (GFR) estimation 2025-04-16 05:31:07 [facility] 55 mL/min ( missing) Result panel 5399 BUN/creatinine ratio 2025-04-16 05:31:07 [facility] 31. 4 (missing) (missing) Result panel 5400 Glucose [Mass/volume] in Serum or Plasma 2025-04-16 05:31:07 [facility] 244 mg/dL ([facility]) Result panel 5401 Calcium [Mass/volume] in Serum or Plasma 2025-04-16 05:31:07 [facility] 8.5 mg/dL ([facility]) Result panel 5402 White blood cell count 2025-04-16 05:31:07 [facility] 1 0.6 X10^3/uL (missing) Result panel 5403 Red blood cell count 2025-04-16 05:31:07 [facility] 4.2 6 X10^6/uL (missing) Result panel 5404 Hemoglobin 2025-04-16 05:31:07 [facility] 13.0 g/d L (missing) Result panel 5405 Hematocrit 2025-04-16 05:31:07 [facility] 38.4 % (missing) Result panel 5406 MCV (mean corpuscular volume ) determination 2025-04-16 05:31:07 [facility] 90.0 fL (mis sing) Result panel 5407 Mean corpuscular hemoglobin (MCH) determination 2025-04-16 05:31:07 [facility] 30.5 PG (missing) Result panel 5408 Mean corpuscular hemoglobin concentration (MCHC) determination 2025-04-16 05:31:07 [facility] 33.9 % (mis sing) Result panel 5409 Red cell distribution width determination 2025-04-16 05:31:07 [facility] 13.1 % (mis sing) Result panel 5410 Platelet count 2025-04-16 05:31:07 [facility] 256 X10^3/uL (missing) Result panel 5411 Automated neutrophil % 2025-04-16 05:31:07 [facility] 8 6.1 % (missing) Result panel 5412 Automated lymphocyte % 2025-04-16 05:31:07 [facility] 1 2.5 % (missing) Result panel 5413 Automated monocyte % 2025-04-16 05:31:07 [facility] 0.7 % (missing) Result panel 5414 Automated eosinophil % 2025-04-16 05:31:07 [facility] 0 .0 % (missing) Result panel 5415 Automated basophil % 2025-04-16 05:31:07 [facility] 0.7 % (missing) Result panel 5416 Absolute neutrophil count 2025-04-16 05:31[facility] ([facility] Result panel 5417 Absolute lymphocyte count 2025-04-16 05:31[facility] 1300 /uL (missing) Result panel 5418 Automated blood monocyte count 2025-04-16 05:31:07 [facility] 100 /uL (missing) Result panel 5419 Automated eosinophil count 2025-04-16 05:[facility] Result panel 5420 Automated basophil count 2025-04-16 05:31:07 [facility] 100 /uL (missing) Result panel 5421 Sodium [Moles/volume] in Serum or Plasma 2025-04-16 05:31:07 [facility] 135 mmol/L ([facility]) Result panel 5422 Potassium [Moles/volume] in Serum or Plasma 2025-04-16 05:31:07 [facility] 4.8 mmol[facility]L [facility] Result panel 5423 Chloride [Moles/volume] in Serum or Plasma 2025-04-16 05:31:07 [facility] 101 mmol/L [facility] Result panel 5424 Carbon dioxide, total [Moles/volume] in Serum or Plasma 2025-04-16 05:31:07 [facility] 25 mmol/L ([facility]) Result panel 5425 Urea nitrogen [Mass/volume] in Serum or Plasma 2025-04-16 05:31:07 [facility] 33 mg/dL [facility] Result panel 5426 Creatinine [Mass/volume] in Serum or Plasma 2025-04-16 05:31:07 [facility] 1.05 mg/dL ([facility]) Result panel 5427 Glomerular filtration rate (GFR) estimation 2025-04-16 05:31:07 [facility] 55 mL/min ( missing) Result panel 5428 BUN/creatinine ratio 2025-04-16 05:31:07 [facility] 31. 4 (missing) (missing) Result panel 5429 Glucose [Mass/volume] in Serum or Plasma 2025-04-16 05:31:07 [facility] 244 mg/dL ([facility]) Result panel 5430 Calcium [Mass/volume] in Serum or Plasma 2025-04-16 05:31:07 [facility] 8.5 mg/dL ([facility]) Result panel 5431 White blood cell count 2025-04-16 05:31:07 [facility] 1 0.6 X10^3/uL (missing) Result panel 5432 Red blood cell count 2025-04-16 05:31:07 [facility] 4.2 6 X10^6/uL (missing) Result panel 5433 Hemoglobin 2025-04-16 05:31:07 [facility] 13.0 g/d L (missing) Result panel 5434 Hematocrit 2025-04-16 05:31:07 [facility] 38.4 % (missing) Result panel 5435 MCV (mean corpuscular volume ) determination 2025-04-16 05:31:07 [facility] 90.0 fL (mis sing) Result panel 5436 Mean corpuscular hemoglobin (MCH) determination 2025-04-16 05:31:07 [facility] 30.5 PG (missing) Result panel 5437 Mean corpuscular hemoglobin concentration (MCHC) determination 2025-04-16 05:31:07 [facility] 33.9 % (mis sing) Result panel 5438 Red cell distribution width determination 2025-04-16 05:31:07 [facility] 13.1 % (mis sing) Result panel 5439 Platelet count 2025-04-16 05:31:07 [facility] 256 X10^3/uL (missing) Result panel 5440 Automated neutrophil % 2025-04-16 05:31:07 [facility] 8 6.1 % (missing) Result panel 5441 Automated lymphocyte % 2025-04-16 05:31:07 [facility] 1 2.5 % (missing) Result panel 5442 Automated monocyte % 2025-04-16 05:31:07 [facility] 0.7 % (missing) Result panel 5443 Automated eosinophil % 2025-04-16 05:31:07 [facility] 0 .0 % (missing) Result panel 5444 Automated basophil % 2025-04-16 05:31:07 [facility] 0.7 % (missing) Result panel 5445 Absolute neutrophil count 2025-04-16 05:31:07 [facility] l 9100 /uL (missing) Result panel 5446 Absolute lymphocyte count 2025-04-16 05:31:07 [facility] l 1300 /uL (missing) Result panel 5447 Automated blood monocyte count 2025-04-16 05:31:07 [facility] spital 100 /uL (missing) Result panel 5448 Automated eosinophil [facility] 2025-04-16 [facility] Result panel 5449 Automated basophil count 2025-04-16 05:31:07 [facility] 100 /uL (missing) Result panel 5450 Sodium [Moles/volume] in Serum or Plasma 2025-04-16 05:31:07 [facility] Result panel 5451 Potassium [Moles/volume] in Serum or Plasma 2025-04-16 05:31:07 [facility] 4.8 mmol/L [facility] Result panel 5452 Chloride [Moles/volume] in Serum or Plasma 2025-04-16 05:31:07 [facility] 101 mmol[facility]L [facility] Result panel 5453 Carbon dioxide, total [Moles/volume] in Serum or Plasma 2025-04-16 05:31:07 [facility] 25 mmol/L ([facility]) Result panel 5454 Urea nitrogen [Mass/volume] in Serum or Plasma 2025-04-16 05:31:07 [facility] 33 mg/dL ([facility]) Result panel 5455 Creatinine [Mass/volume] in Serum or Plasma 2025-04-16 05:31:07 [facility] 1.05 mg/dL ([facility]) Result panel 5456 Glomerular filtration rate (GFR) estimation 2025-04-16 05:31:07 [facility] 55 mL/min ( missing) Result panel 5457 BUN/creatinine ratio 2025-04-16 05:31:07 [facility] 31. 4 (missing) (missing) Result panel 5458 Glucose [Mass/volume] in Serum or Plasma 2025-04-16 05:31:07 [facility] 244 mg/dL ([facility]) Result panel 5459 Calcium [Mass/volume] in Serum or Plasma 2025-04-16 05:31:07 [facility] 8.5 mg/dL ([facility]) Result panel 5460 White blood cell count 2025-04-16 05:31:07 [facility] 1 0.6 X10^3/uL (missing) Result panel 5461 Red blood cell count 2025-04-16 05:31:07 [facility] 4.2 6 X10^6/uL (missing) Result panel 5462 Hemoglobin 2025-04-16 05:31:07 [facility] 13.0 g/d L (missing) Result panel 5463 Hematocrit 2025-04-16 05:31:07 [facility] 38.4 % (missing) Result panel 5464 MCV (mean corpuscular volume ) determination 2025-04-16 05:31:07 [facility] 90.0 fL (mis sing) Result panel 5465 Mean corpuscular hemoglobin (MCH) determination 2025-04-16 05:31:07 [facility] 30.5 PG (missing) Result panel 5466 Mean corpuscular hemoglobin concentration (MCHC) determination 2025-04-16 05:31:07 [facility] 33.9 % (mis sing) Result panel 5467 Red cell distribution width determination 2025-04-16 05:31:07 [facility] 13.1 % (mis sing) Result panel 5468 Platelet count 2025-04-16 05:31:07 [facility] 256 X10^3/uL (missing) Result panel 5469 Automated neutrophil % 2025-04-16 05:31:07 [facility] 8 6.1 % (missing) Result panel 5470 Automated lymphocyte % 2025-04-16 05:31:07 [facility] 1 2.5 % (missing) Result panel 5471 Automated monocyte % 2025-04-16 05:31:07 [facility] 0.7 % (missing) Result panel 5472 Automated eosinophil % 2025-04-16 05:31:07 [facility] 0 .0 % (missing) Result panel 5473 Automated basophil % 2025-04-16 05:31:07 [facility] 0.7 % (missing) Result panel 5474 Absolute neutrophil count 2025-04-16 05:31:07 [facility] l 9100 /uL (missing) Result panel 5475 Absolute lymphocyte count 2025-04-16 05:31:07 [facility] l 1300 /uL (missing) Result panel 5476 Automated blood monocyte count 2025-04-16 05:31:07 [facility] sp[facility] 100 /uL (missing) Result panel 5477 Automated eosinophil count 2025-04-16 05:31:07 [facility] 0 /uL (missing) Result panel 5478 Automated basophil count 2025-04-16 05:31:07 [facility] 100 /uL (missing) Result panel 5479 Sodium [Moles/volume] in Serum or Plasma 2025-04-16 05:31:07 [facility] 135 mmol/L ([facility]) Result panel 5480 Potassium [Moles/volume] in Serum or Plasma 2025-04-16 05:31:07 [facility] 4.8 mmol/L [facility] Result panel 5481 Chloride [Moles/volume] in Serum or Plasma 2025-04-16 05:31:07 [facility] 101 mmol/L [facility] Result panel 5482 Carbon dioxide, total [Moles/volume] in Serum or Plasma 2025-04-16 05:31:07 [facility] 25 mmol/L [facility]) Result panel 5483 Urea nitrogen [Mass/volume] in Serum or Plasma 2025-04-16 05:31:07 [facility] 33 mg/dL [facility] Result panel 5484 Creatinine [Mass/volume] in Serum or Plasma 2025-04-16 05:31:07 [facility] 1.05 mg/dL ([facility]) Result panel 5485 Glomerular filtration rate (GFR) estimation 2025-04-16 05:31:07 [facility] 55 mL/min ( missing) Result panel 5486 BUN/creatinine ratio 2025-04-16 05:31:07 [facility] 31. 4 (missing) (missing) Result panel 5487 Glucose [Mass/volume] in Serum or Plasma 2025-04-16 05:31:07 [facility] 244 mg/dL ([facility]) Result panel 5488 Calcium [Mass/volume] in Serum or Plasma 2025-04-16 05:31:07 [facility] 8.5 mg/dL ([facility]) Result panel 5489 White blood cell count 2025-04-16 05:31:07 [facility] 1 0.6 X10^3/uL (missing) Result panel 5490 Red blood cell count 2025-04-16 05:31:07 [facility] 4.2 6 X10^6/uL (missing) Result panel 5491 White blood cell count 2025-04-16 05:31:07 [facility] 1 0.6 X10^3/uL (missing) Result panel 5492 Red blood cell count 2025-04-16 05:31:07 [facility] 4.2 6 X10^6/uL (missing) Result panel 5493 Hemoglobin 2025-04-16 05:31:07 [facility] 13.0 g/d L (missing) Result panel 5494 Hematocrit 2025-04-16 05:31:07 [facility] 38.4 % (missing) Result panel 5495 MCV (mean corpuscular volume ) determination 2025-04-16 05:31:07 [facility] 90.0 fL (mis sing) Result panel 5496 Mean corpuscular hemoglobin (MCH) determination 2025-04-16 05:31:07 [facility] 30.5 PG (missing) Result panel 5497 Mean corpuscular hemoglobin concentration (MCHC) determination 2025-04-16 05:31:07 [facility] 33.9 % (mis sing) Result panel 5498 Red cell distribution width determination 2025-04-16 05:31:07 [facility] 13.1 % (mis sing) Result panel 5499 Platelet count 2025-04-16 05:31:07 [facility] 256 X10^3/uL (missing) Result panel 5500 Automated neutrophil % 2025-04-16 05:31:07 [facility] 8 6.1 % (missing) Result panel 5501 Hemoglobin 2025-04-16 05:31:07 [facility] 13.0 g/d L (missing) Result panel 5502 Automated lymphocyte % 2025-04-16 05:31:07 [facility] 1 2.5 % (missing) Result panel 5503 Automated monocyte % 2025-04-16 05:31:07 [facility] 0.7 % (missing) Result panel 5504 Automated eosinophil % 2025-04-16 05:31:07 [facility] 0 .0 % (missing) Result panel 5505 Automated basophil % 2025-04-16 05:31:07 [facility] 0.7 % (missing) Result panel 5506 Absolute neutrophil count 2025-04-16 [facility] Result panel 5507 Absolute lymphocyte count 2025-04-16 [facility] 1300 /uL ([facility]) Result panel 5508 Automated blood monocyte count 2025-04-16 05:31:07 [facility] 100 /uL (missing) Result panel 5509 Automated eosinophil count 2025-04-16 [facility] Result panel 5510 Automated basophil count 2025-04-16 05:31:07 [facility] 100 /uL (missing) Result panel 5511 Sodium [Moles/volume] in Serum or Plasma 2025-04-16 05:31:07 [facility] 135 mmol/L ([facility]) Result panel 5512 Hematocrit 2025-04-16 05:31:07 [facility] 38.4 % (missing) Result panel 5513 Potassium [Moles/volume] in Serum or Plasma 2025-04-16 05:31:07 [facility] 4.8 mmol/L ([facility]) Result panel 5514 Chloride [Moles/volume] in Serum or Plasma 2025-04-16 05:31:07 [facility] 101 mmol/L ([facility]) Result panel 5515 Carbon dioxide, total [Moles/volume] in Serum or Plasma 2025-04-16 05:31:07 [facility] 25 mmol/L (miss ing) Result panel 5516 Urea nitrogen [Mass/volume] in Serum or Plasma 2025-04-16 05:31:07 [facility] 33 mg/dL ( issing) Result panel 5517 Creatinine [Mass/volume] in Serum or Plasma 2025-04-16 05:31:07 [facility] 1.05 mg/dL [facility] Result panel 5518 Glomerular filtration rate (GFR) estimation 2025-04-16 05:31:07 [facility] 55 mL/min ( missing) Result panel 5519 BUN/creatinine ratio 2025-04-16 05:31:07 [facility] 31. 4 (missing) (missing) Result panel 5520 Glucose [Mass/volume] in Serum or Plasma 2025-04-16 05:31:07 [facility] 244 mg/dL [facility] Result panel 5521 Calcium [Mass/volume] in Serum or Plasma 2025-04-16 05:31:07 [facility] 8.5 mg/dL ([facility]) Result panel 5522 MCV (mean corpuscular volume ) determination 2025-04-16 05:31:07 [facility] 90.0 fL (mis sing) Result panel 5523 Mean corpuscular hemoglobin (MCH) determination 2025-04-16 05:31:07 [facility] 30.5 PG (missing) Result panel 5524 Mean corpuscular hemoglobin concentration (MCHC) determination 2025-04-16 05:31:07 [facility] 33.9 % (mis sing) Result panel 5525 Red cell distribution width determination 2025-04-16 05:31:07 [facility] 13.1 % (mis sing) Result panel 5526 Platelet count 2025-04-16 05:31:07 [facility] 256 X10^3/uL (missing) Result panel 5527 Automated neutrophil % 2025-04-16 05:31:07 [facility] 8 6.1 % (missing) Result panel 5528 Automated lymphocyte % 2025-04-16 05:31:07 [facility] 1 2.5 % (missing) Result panel 5529 Automated monocyte % 2025-04-16 05:31:07 [facility] 0.7 % (missing) Result panel 5530 Automated eosinophil % 2025-04-16 05:31:07 [facility] 0 .0 % (missing) Result panel 5531 White blood cell count 2025-04-16 05:31:07 [facility] 1 0.6 X10^3/uL (missing) Result panel 5532 Red blood cell count 2025-04-16 05:31:07 [facility] 4.2 6 X10^6/uL (missing) Result panel 5533 Hemoglobin 2025-04-16 05:31:07 [facility] 13.0 g/d L (missing) Result panel 5534 Hematocrit 2025-04-16 05:31:07 [facility] 38.4 % (missing) Result panel 5535 MCV (mean corpuscular volume ) determination 2025-04-16 05:31:07 [facility] 90.0 fL (mis sing) Result panel 5536 Mean corpuscular hemoglobin (MCH) determination 2025-04-16 05:31:07 [facility] 30.5 PG (missing) Result panel 5537 Automated basophil % 2025-04-16 05:31:07 [facility] 0.7 % (missing) Result panel 5538 Mean corpuscular hemoglobin concentration (MCHC) determination 2025-04-16 05:31:07 [facility] 33.9 % (mis sing) Result panel 5539 Red cell distribution width determination 2025-04-16 05:31:07 [facility] 13.1 % (mis sing) Result panel 5540 Platelet count 2025-04-16 05:31:07 [facility] 256 X10^3/uL (missing) Result panel 5541 Automated neutrophil % 2025-04-16 05:31:07 [facility] 8 6.1 % (missing) Result panel 5542 Automated lymphocyte % 2025-04-16 05:31:07 [facility] 1 2.5 % (missing) Result panel 5543 Automated monocyte % 2025-04-16 05:31:07 [facility] 0.7 % (missing) Result panel 5544 Automated eosinophil % 2025-04-16 05:31:07 [facility] 0 .0 % (missing) Result panel 5545 Automated basophil % 2025-04-16 05:31:07 [facility] 0.7 % (missing) Result panel 5546 Absolute neutrophil count 2025-04-16 05:31:07 [facility] l 9100 /uL (missing) Result panel 5547 Absolute lymphocyte count 2025-04-16 05:31:07 [facility] l 1300 /uL (missing) Result panel 5548 Absolute neutrophil count 2025-04-16 [facility] Result panel 5549 Automated blood monocyte count 2025-04-16 05:31:07 [facility] 100 /uL (missing) Result panel 5550 Automated eosinophil count 2025-04-16 [facility] Result panel 5551 Automated basophil count 2025-04-16 05:31:07 [facility] 100 /uL (missing) Result panel 5552 Sodium [Moles/volume] in Serum or Plasma 2025-04-16 05:31:07 [facility] 135 mmol[facility]L [facility] Result panel 5553 Potassium [Moles/volume] in Serum or Plasma 2025-04-16 05:31:07 [facility] 4.8 mmol/L ([facility] Result panel 5554 Chloride [Moles/volume] in Serum or Plasma 2025-04-16 05:31:07 [facility] 101 mmol/L ([facility]) Result panel 5555 Carbon dioxide, total [Moles/volume] in Serum or Plasma 2025-04-16 05:31:07 [facility] 25 mmol/L ([facility]) Result panel 5556 Urea nitrogen [Mass/volume] in Serum or Plasma 2025-04-16 05:31:07 [facility] 33 mg/dL ([facility] Result panel 5557 Creatinine [Mass/volume] in Serum or Plasma 2025-04-16 05:31:07 [facility] 1.05 mg/dL ([facility]) Result panel 5558 Glomerular filtration rate (GFR) estimation 2025-04-16 05:31:07 [facility] 55 mL/min ( missing) Result panel 5559 Absolute lymphocyte count 2025-04-16 05:31:07 [facility] l 1300 /uL (missing) Result panel 5560 BUN/creatinine ratio 2025-04-16 05:31:07 [facility] 31. 4 (missing) (missing) Result panel 5561 Glucose [Mass/volume] in Serum or Plasma 2025-04-16 05:31:07 [facility] 244 mg/dL [facility] Result panel 5562 Calcium [Mass/volume] in Serum or Plasma 2025-04-16 05:31:07 [facility] 8.5 mg/dL (m issing) Result panel 5563 Automated blood monocyte count 2025-04-16 05:31:07 [facility] 100 /uL (missing) Result panel 5564 Automated eosinophil count 2025-04-16 05:31:07 [facility] 0 /uL (missing) Result panel 5565 Automated basophil count 2025-04-16 05:31:07 [facility] 100 /uL (missing) Result panel 5566 Sodium [Moles/volume] in Serum or Plasma 2025-04-16 05:31:07 [facility] 135 mmol/L ([facility]) Result panel 5567 Potassium [Moles/volume] in Serum or Plasma 2025-04-16 05:31:07 [facility] 4.8 mmol/L ([facility]) Result panel 5568 Chloride [Moles/volume] in Serum or Plasma 2025-04-16 05:31:07 [facility] 101 mmol/L ([facility]) Result panel 5569 Carbon dioxide, total [Moles/volume] in Serum or Plasma 2025-04-16 05:31:07 [facility] 25 mmol/L ([facility]) Result panel 5570 Urea nitrogen [Mass/volume] in Serum or Plasma 2025-04-16 05:31:07 [facility] 33 mg/dL ([facility]) Result panel 5571 Creatinine [Mass/volume] in Serum or Plasma 2025-04-16 05:31:07 [facility] 1.05 mg/dL ([facility]) Result panel 5572 Glomerular filtration rate (GFR) estimation 2025-04-16 05:31:07 [facility] 55 mL/min ( missing) Result panel 5573 BUN/creatinine ratio 2025-04-16 05:31:07 [facility] 31. 4 (missing) (missing) Result panel 5574 Glucose [Mass/volume] in Serum or Plasma 2025-04-16 05:31:07 [facility] 244 mg/dL ([facility]) Result panel 5575 Calcium [Mass/volume] in Serum or Plasma 2025-04-16 05:31:07 [facility] 8.5 mg/dL ([facility]) Result panel 5576 White blood cell count 2025-04-16 05:31:07 [facility] 1 0.6 X10^3/uL (missing) Result panel 5577 Red blood cell count 2025-04-16 05:31:07 [facility] 4.2 6 X10^6/uL (missing) Result panel 5578 Hemoglobin 2025-04-16 05:31:07 [facility] 13.0 g/d L (missing) Result panel 5579 Hematocrit 2025-04-16 05:31:07 [facility] 38.4 % (missing) Result panel 5580 MCV (mean corpuscular volume ) determination 2025-04-16 05:31:07 [facility] 90.0 fL (mis sing) Result panel 5581 Mean corpuscular hemoglobin (MCH) determination 2025-04-16 05:31:07 [facility] 30.5 PG (missing) Result panel 5582 Mean corpuscular hemoglobin concentration (MCHC) determination 2025-04-16 05:31:07 [facility] 33.9 % (mis sing) Result panel 5583 Red cell distribution width determination 2025-04-16 05:31:07 [facility] 13.1 % (mis sing) Result panel 5584 Platelet count 2025-04-16 05:31:07 [facility] 256 X10^3/uL (missing) Result panel 5585 Automated neutrophil % 2025-04-16 05:31:07 [facility] 8 6.1 % (missing) Result panel 5586 Automated lymphocyte % 2025-04-16 05:31:07 [facility] 1 2.5 % (missing) Result panel 5587 Automated monocyte % 2025-04-16 05:31:07 [facility] 0.7 % (missing) Result panel 5588 Automated eosinophil % 2025-04-16 05:31:07 [facility] 0 .0 % (missing) Result panel 5589 Automated basophil % 2025-04-16 05:31:07 [facility] 0.7 % (missing) Result panel 5590 Absolute neutrophil count 2025-04-16 [facility] Result panel 5591 Absolute lymphocyte count 2025-04-16 05:[facility] 1300 /uL ([facility]) Result panel 5592 Automated blood monocyte count 2025-04-16 05:31:07 [facility] 100 /uL (missing) Result panel 5593 Automated eosinophil count 2025-04-16 [facility] Result panel 5594 Automated basophil count 2025-04-16 05:31:07 [facility] 100 /uL (missing) Result panel 5595 Sodium [Moles/volume] in Serum or Plasma 2025-04-16 05:31:07 [facility] 135 mmol/L ([facility]) Result panel 5596 Potassium [Moles/volume] in Serum or Plasma 2025-04-16 05:31:07 [facility] 4.8 mmol/L ([facility]) Result panel 5597 Chloride [Moles/volume] in Serum or Plasma 2025-04-16 05:31:07 [facility] 101 mmol/L ([facility]) Result panel 5598 Carbon dioxide, total [Moles/volume] in Serum or Plasma 2025-04-16 05:31:07 [facility] 25 mmol/L ([facility]) Result panel 5599 Urea nitrogen [Mass/volume] in Serum or Plasma 2025-04-16 05:31:07 [facility] 33 mg/dL ([facility]) Result panel 5600 Creatinine [Mass/volume] in Serum or Plasma 2025-04-16 05:31:07 [facility] 1.05 mg/dL ([facility]) Result panel 5601 Glomerular filtration rate (GFR) estimation 2025-04-16 05:31:07 [facility] 55 mL/min ( missing) Result panel 5602 BUN/creatinine ratio 2025-04-16 05:31:07 [facility] 31. 4 (missing) (missing) Result panel 5603 Glucose [Mass/volume] in Serum or Plasma 2025-04-16 05:31:07 [facility] 244 mg/dL ([facility]) Result panel 5604 Calcium [Mass/volume] in Serum or Plasma 2025-04-16 05:31:07 [facility] 8.5 mg/dL ([facility]) Result panel 5605 White blood cell count 2025-04-16 05:31:07 [facility] 1 0.6 X10^3/uL (missing) Result panel 5606 Red blood cell count 2025-04-16 05:31:07 [facility] 4.2 6 X10^6/uL (missing) Result panel 5607 Hemoglobin 2025-04-16 05:31:07 [facility] 13.0 g/d L (missing) Result panel 5608 Hematocrit 2025-04-16 05:31:07 [facility] 38.4 % (missing) Result panel 5609 MCV (mean corpuscular volume ) determination 2025-04-16 05:31:07 [facility] 90.0 fL (mis sing) Result panel 5610 Mean corpuscular hemoglobin (MCH) determination 2025-04-16 05:31:07 [facility] 30.5 PG (missing) Result panel 5611 Mean corpuscular hemoglobin concentration (MCHC) determination 2025-04-16 05:31:07 [facility] 33.9 % (mis sing) Result panel 5612 Red cell distribution width determination 2025-04-16 05:31:07 [facility] 13.1 % (mis sing) Result panel 5613 Platelet count 2025-04-16 05:31:07 [facility] 256 X10^3/uL (missing) Result panel 5614 Automated neutrophil % 2025-04-16 05:31:07 [facility] 8 6.1 % (missing) Result panel 5615 Automated lymphocyte % 2025-04-16 05:31:07 [facility] 1 2.5 % (missing) Result panel 5616 Automated monocyte % 2025-04-16 05:31:07 [facility] 0.7 % (missing) Result panel 5617 Automated eosinophil % 2025-04-16 05:31:07 [facility] 0 .0 % (missing) Result panel 5618 Automated basophil % 2025-04-16 05:31:07 [facility] 0.7 % (missing) Result panel 5619 Absolute neutrophil count 2025-04-16 [facility] Result panel 5620 Absolute lymphocyte count 2025-04-16 05:[facility] 1300 /uL (missing) Result panel 5621 Automated blood monocyte count 2025-04-16 05:31:07 [facility] 100 /uL (missing) Result panel 5622 Automated eosinophil count 2025-04-16 [facility] Result panel 5623 Automated basophil count 2025-04-16 05:31:07 [facility] 100 /uL (missing) Result panel 5624 Sodium [Moles/volume] in Serum or Plasma 2025-04-16 05:31:07 [facility] 135 mmol/L (m [facility]) Result panel 5625 Potassium [Moles/volume] in Serum or Plasma 2025-04-16 05:31:07 [facility] 4.8 mmol/L ([facility]) Result panel 5626 Chloride [Moles/volume] in Serum or Plasma 2025-04-16 05:31:07 [facility] 101 mmol/L ([facility]) Result panel 5627 Carbon dioxide, total [Moles/volume] in Serum or Plasma 2025-04-16 05:31:07 [facility] 25 mmol/L ([facility]) Result panel 5628 Urea nitrogen [Mass/volume] in Serum or Plasma 2025-04-16 05:31:07 [facility] 33 mg/dL ([facility]) Result panel 5629 Creatinine [Mass/volume] in Serum or Plasma 2025-04-16 05:31:07 [facility] 1.05 mg/dL ([facility]) Result panel 5630 Glomerular filtration rate (GFR) estimation 2025-04-16 05:31:07 [facility] 55 mL/min ( missing) Result panel 5631 BUN/creatinine ratio 2025-04-16 05:31:07 [facility] 31. 4 (missing) (missing) Result panel 5632 Glucose [Mass/volume] in Serum or Plasma 2025-04-16 05:31:07 [facility] 244 mg/dL ([facility]) Result panel 5633 Calcium [Mass/volume] in Serum or Plasma 2025-04-16 05:31:07 [facility] 8.5 mg/dL ([facility]) Result panel 5634 White blood cell count 2025-04-16 05:31:07 [facility] 1 0.6 X10^3/uL (missing) Result panel 5635 Red blood cell count 2025-04-16 05:31:07 [facility] 4.2 6 X10^6/uL (missing) Result panel 5636 Hemoglobin 2025-04-16 05:31:07 [facility] 13.0 g/d L (missing) Result panel 5637 Hematocrit 2025-04-16 05:31:07 [facility] 38.4 % (missing) Result panel 5638 MCV (mean corpuscular volume ) determination 2025-04-16 05:31:07 [facility] 90.0 fL (mis sing) Result panel 5639 Mean corpuscular hemoglobin (MCH) determination 2025-04-16 05:31:07 [facility] 30.5 PG (missing) Result panel 5640 Mean corpuscular hemoglobin concentration (MCHC) determination 2025-04-16 05:31:07 [facility] 33.9 % (mis sing) Result panel 5641 Red cell distribution width determination 2025-04-16 05:31:07 [facility] 13.1 % (mis sing) Result panel 5642 Platelet count 2025-04-16 05:31:07 [facility] 256 X10^3/uL (missing) Result panel 5643 Automated neutrophil % 2025-04-16 05:31:07 [facility] 8 6.1 % (missing) Result panel 5644 Automated lymphocyte % 2025-04-16 05:31:07 [facility] 1 2.5 % (missing) Result panel 5645 Automated monocyte % 2025-04-16 05:31:07 [facility] 0.7 % (missing) Result panel 5646 Automated eosinophil % 2025-04-16 05:31:07 [facility] 0 .0 % (missing) Result panel 5647 Automated basophil % 2025-04-16 05:31:07 [facility] 0.7 % (missing) Result panel 5648 Absolute neutrophil count 2025-04-16 05:31:07 [facility] 9100 /uL (missing) Result panel 5649 Absolute lymphocyte count 2025-04-16 05:[facility] 1300 /[facility] (missing) Result panel 5650 Automated blood monocyte count 2025-04-16 05:31:07 [facility] 100 /uL (missing) Result panel 5651 Automated eosinophil count 2025-04-16 05:31:07 [facility] 0 /uL (missing) Result panel 5652 Automated basophil count 2025-04-16 05:31:07 [facility] 100 /uL (missing) Result panel 5653 Sodium [Moles/volume] in Serum or Plasma 2025-04-16 05:31:07 [facility] 135 mmol/L ([facility]) Result panel 5654 Potassium [Moles/volume] in Serum or Plasma 2025-04-16 05:31:07 [facility] 4.8 [facility] Result panel 5655 Chloride [Moles/volume] in Serum or Plasma 2025-04-16 05:31:07 [facility] 101 mmol/L [facility] Result panel 5656 Carbon dioxide, total [Moles/volume] in Serum or Plasma 2025-04-16 05:31:07 [facility] 25 mmol/L ([facility]) Result panel 5657 Urea nitrogen [Mass/volume] in Serum or Plasma 2025-04-16 05:31:07 [facility] 33 mg/dL ([facility]) Result panel 5658 Creatinine [Mass/volume] in Serum or Plasma 2025-04-16 05:31:07 [facility] 1.05 mg/dL ([facility]) Result panel 5659 Glomerular filtration rate (GFR) estimation 2025-04-16 05:31:07 [facility] 55 mL/min ( missing) Result panel 5660 BUN/creatinine ratio 2025-04-16 05:31:07 [facility] 31. 4 (missing) (missing) Result panel 5661 Glucose [Mass/volume] in Serum or Plasma 2025-04-16 05:31:07 [facility] 244 mg/dL ([facility]) Result panel 5662 Calcium [Mass/volume] in Serum or Plasma 2025-04-16 05:31:07 [facility] 8.5 mg/dL ([facility]) Result panel 5663 Eosinophils Absolute Auto 2025-04-16 05:49 [facility] 0 /ul (missing ) Eosinophils Percent Auto 2025-04-16 05:[address] [place] [address] 0.0 % (missing ) Basophils Percent Auto 2025-04-16 05:[address] [place] [address] 0.7 % (missing ) Monocytes Percent Auto 2025-04-16 05:[address] [place] [address] 0.7 % (missing ) White Blood Cell Count 2025-04-16 05:[address] [place] [address] 10.6 x10 3/ul (missing ) Basophils Absolute Auto 2025-04-16 05:49 [facility] 100 /ul (missing ) Monocytes Absolute Auto 2025-04-16 05:49 [facility] 100 /ul (missing ) Lymphocytes Percent Auto 2025-04-16 05:[address] [place] [address] 12.5 % (missing ) Hemoglobin 2025-04-16 05:[address] [place] [address] 13.0 g/dl (missing) Red Cell Distribution Width 2025-04-16 05:[address] [place] [address] 13.1 % (missing ) Lymphocytes Absolute Auto 2025-04-16 05:[address] [place] [address] 1300 /ul (missing ) Platelet Count 2025-04-16 05:[address] [place] [address] 256 x1 0 3/ul (missing) Mean Corpuscular Hemoglobin 2025-04-16 05:49 [facility] 30.5 pg (missing ) Mean Corpuscular HGB Conc 2025-04-16 05:49 [facility] 33.9 % (missing ) Hematocrit 2025-04-16 05:49 [facility] 38.4 % (missing) Red Blood Cell Count 2025-04-16 05:[address] [place] [address] 4.26 x10 6/ul (missing) Neutrophils Percent Auto 2025-04-16 05:49 [facility] 86.1 % Delta: 5 9.5 on 04/15/25 Mean Corpuscular Volume 2025-04-16 05:49 [facility] 90.0 fl (missing ) Neutrophils Absolute Auto 2025-04-16 05:[address] [place] [address] 9100 /ul (missing ) Result panel 5664 Creatinine 2025-04-16 06:05 [facility] 1.05 mg/dl (missing) Chloride 2025-04-16 06:05 [facility] 101 mmol/l (missing) Sodium 2025-04-16 06:05 [facility] 135 mmol/l (missing) Glucose 2025-04-16 06:05 [facility] 244 mg/dl Delta: 144 on 04/15/25 Carbon Dioxide 2025-04-16 06:05 [facility] 25 mm ol/l (missing) BUN Creatinine Ratio 2025-04-16 06:05 [facility] 31.4 (missing) (missing ) Blood Urea Nitrogen 2025-04-16 06:05 [facility] 33 mg/dl (missing) Potassium 2025-04-16 06:05 [facility] 4.8 mmol/l (missing) Estimated Glomerular Filt Rate 2025-04-16 06:05 [facility] 55 ml/min Reported eGFR is based the CKD-EPI 2020 equation that does not use a race coefficient. An eGFR below 60 mL/min/1.73m2 suggests that some kidney damage has occurred, and indicative of chronic kidney disease if persisting greater than 3 months. An eGFR less than 15 is indicative of kidney failure. Calcium 2025-04-16 06:05 [facility] 8.5 mg/dl (missing) Result panel 5665 [place] Count 2025-04-16 07:[address] [place] [address] >100,000 cfu/ml (missing) ORGANISM 2025-04-16 07:34 [facility] GNBGram negative bacilli (missing) (missing) Action to follow 2025-04-16 07:34 [facility] Identification and Sensitivity to Follow (missing) (missing) Result panel 5666 POC Glucose 2025-04-16 07:37 [facility] 264 mg/dl Delta: 393 on 04/16/25-0116 Result panel 5667 Magnesium 2025-04-16 07:45 [facility] 2.9 mg/dl (missing) Result panel 5668 POC Glucose 2025-04-16 15:18 [facility] 297 mg/dl (missing) Result panel 5669 CAT scan report 2025-04-16 15:30 [facility] (missing) ( missing) (missing) Result panel 5670 POC Glucose 2025-04-16 17:23 [facility] 262 mg/dl (missing) Result panel 5671 Blood Culture 2025-04-16 18:14 [facility] (missing) (mi ssing) (missing) Blood Culture 2025-04-16 18:14 [facility] NO GROW TH AFTER 24 HOURS (missing) (missing) Result panel 5672 Blood Culture 2025-04-16 18:16 [facility] (missing) (mi ssing) (missing) Blood Culture 2025-04-16 18:16 [facility] NO GROW TH AFTER 24 HOURS (missing) (missing) Result panel 5673 POC Glucose 2025-04-16 20:47 [facility] 270 mg/dl (missing) Result panel 5674 Thyrotropin [Units/volume] in Serum or Plasma by Detection limit <= 0.05 mIU/L 2025-04-17 03:48:08 [facility] 5.71 uIU/mL (miss ing) Result panel 5675 Thyrotropin [Units/volume] in Serum or Plasma by Detection limit <= 0.05 mIU/L 2025-04-17 03:48:08 [facility] 5.71 uIU/mL (miss ing) Result panel 5676 Thyrotropin [Units/volume] in Serum or Plasma by Detection limit <= 0.05 mIU/L 2025-04-17 04:48:07 [facility] 5.71 uIU/mL (miss ing) Result panel 5677 Thyrotropin [Units/volume] in Serum or Plasma by Detection limit <= 0.05 mIU/L 2025-04-17 04:48:07 [facility] 5.71 uIU/mL (miss ing) Result panel 5678 Thyrotropin [Units/volume] in Serum or Plasma by Detection limit <= 0.05 mIU/L 2025-04-17 04:48:07 [facility] 5.71 uIU/mL (miss ing) Result panel 5679 Thyrotropin [Units/volume] in Serum or Plasma by Detection limit <= 0.05 mIU/L 2025-04-17 04:48:07 [facility] 5.71 uIU/mL (miss ing) Result panel 5680 Thyrotropin [Units/volume] in Serum or Plasma by Detection limit <= 0.05 mIU/L 2025-04-17 04:48:07 [facility] 5.71 uIU/mL (miss ing) Result panel 5681 Thyrotropin [Units/volume] in Serum or Plasma by Detection limit <= 0.05 mIU/L 2025-04-17 04:48:07 [facility] 5.71 uIU/mL (miss ing) Result panel 5682 Thyrotropin [Units/volume] in Serum or Plasma by Detection limit <= 0.05 mIU/L 2025-04-17 04:48:07 [facility] 5.71 uIU/mL (miss ing) Result panel 5683 Thyrotropin [Units/volume] in Serum or Plasma by Detection limit <= 0.05 mIU/L 2025-04-17 04:48:07 [facility] 5.71 uIU/mL (miss ing) Result panel 5684 Thyrotropin [Units/volume] in Serum or Plasma by Detection limit <= 0.05 mIU/L 2025-04-17 04:48:07 [facility] 5.71 uIU/mL (miss ing) Result panel 5685 Thyrotropin [Units/volume] in Serum or Plasma by Detection limit <= 0.05 mIU/L 2025-04-17 04:48:07 [facility] 5.71 uIU/mL (miss ing) Result panel 5686 Thyrotropin [Units/volume] in Serum or Plasma by Detection limit <= 0.05 mIU/L 2025-04-17 04:48:07 [facility] 5.71 uIU/mL (miss ing) Result panel 5687 Thyrotropin [Units/volume] in Serum or Plasma by Detection limit <= 0.05 mIU/L 2025-04-17 04:48:07 [facility] 5.71 uIU/mL (miss ing) Result panel 5688 Magnesium 2025-04-17 05:28 [facility] 2.4 mg/dl (missing) Result panel 5689 Urine Culture 2025-04-17 06:51 [facility] (missing) (missing) (missing) [place] Count 2025-04-17 06:51 [facility] >100,000 cfu/ml (missing) Ciprofloxacin 2025-04-17 06:51 [facility] <=0.06 (missing) (missing) Ertapenem 2025-04-17 06:51 [facility] <=0.12 (missing) (missing) Levofloxacin 2025-04-17 06:51 [facility] <=0.12 (missing) (missing) Ceftriaxone 2025-04-17 06:51 [facility] <=0.25 (missing) (missing) Meropenem 2025-04-17 06:51 [facility] <=0.25 (missing) (missing) Cefazolin 2025-04-17 06:51 [facility] <=1 (missing) (missing) Gentamicin 2025-04-17 06:[address] [place] [address] <=1 (missing) (missing) Tetracycline 2025-04-17 06:[address] [place] [address] <=1 (missing) (missing) Amoxicillin/Clavul anate 2025-04-17 06:51 [facility] <=2 (missing) (missing) Ampicillin 2025-04-17 06:51 [facility] <=2 (missing) (missing) Cefepime E-test 2025-04-17 06:51 [facility] <=2 (missing) (missing) Trimethoprim/Sulfa methoxazole 2025-04-17 06:[address] [place] [address] <=20 (missing) (missing) Piperacillin/Tazob actam 2025-04-17 06:[address] [place] [address] <=4 (missing) (missing) Nitrofurantoin 2025-04-17 06:51 [facility] 32 (missing) (missing) ORGANISM 2025-04-17 06:51 [facility] ESCCOLEscherichia coli (missing) (missing) Urine Culture 2025-04-17 06:51 [facility] Isolates that test susceptible to tetracycline are (missing) (missing) Action to follow 2025-04-17 06:51 [facility] No Further Workup (missing) (missing) Urine Culture 2025-04-17 06:[address] [place] [address] considered susceptible to doxycycline and minocycline. (missing) (missing) Result panel 5690 POC Glucose 2025-04-17 08:55 [facility] 238 mg/dl (missing) Result panel 5691 POC Glucose 2025-04-17 12:11 [facility] 234 mg/dl (missing) Result panel 5692 Thyroid Stimulating Hormone 2025-04-17 14:51 [facility] 5.71 uiu/ml Delta: 2 .06 on 04/15/25-1718 Result panel 5693 POC Glucose 2025-04-17 17:01 [facility] 179 mg/dl (missing) Result panel 5694 Blood Culture 2025-04-17 18:14 [facility] (missing) (ca ssing) (missing) Blood Culture 2025-04-17 18:14 [facility] NO GROW TH AFTER 48 HOURS (missing) (missing) Result panel 5695 Blood Culture 2025-04-17 18:17 [facility] (missing) (ca ssing) (missing) Blood Culture 2025-04-17 18:17 [facility] NO GROW TH AFTER 48 HOURS (missing) (missing) Result panel 5696 POC Glucose 2025-04-17 20:10 [facility] 181 mg/dl (missing) Result panel 5697 Magnesium [Mass/volume] in Serum or Plasma 2025-04-18 05:49:08 [facility] 2.2 mg/dL ( issing) Result panel 5698 Magnesium [Mass/volume] in Serum or Plasma 2025-04-18 05:49:08 [facility] 2.2 mg/dL ( issing) Result panel 5699 Magnesium [Mass/volume] in Serum or Plasma 2025-04-18 06:49:07 [facility] 2.2 mg/dL ( issing) Result panel 5700 Magnesium [Mass/volume] in Serum or Plasma 2025-04-18 06:49:07 [facility] 2.2 mg/dL ( issing) Result panel 5701 Magnesium [Mass/volume] in Serum or Plasma 2025-04-18 06:49:07 [facility] 2.2 mg/dL ( issing) Result panel 5702 Magnesium [Mass/volume] in Serum or Plasma 2025-04-18 06:49:07 [facility] 2.2 mg/dL ( issing) Result panel 5703 Magnesium [Mass/volume] in Serum or Plasma 2025-04-18 06:49:07 [facility] 2.2 mg/dL ( issing) Result panel 5704 Magnesium [Mass/volume] in Serum or Plasma 2025-04-18 06:49:07 [facility] 2.2 mg/dL ( issing) Result panel 5705 Magnesium [Mass/volume] in Serum or Plasma 2025-04-18 06:49:07 [facility] 2.2 mg/dL ( issing) Result panel 5706 Magnesium [Mass/volume] in Serum or Plasma 2025-04-18 06:49:07 [facility] 2.2 mg/dL ( issing) Result panel 5707 Magnesium [Mass/volume] in Serum or Plasma 2025-04-18 06:49:07 [facility] 2.2 mg/dL ( issing) Result panel 5708 Magnesium [Mass/volume] in Serum or Plasma 2025-04-18 06:49:07 [facility] 2.2 mg/dL ( issing) Result panel 5709 Magnesium [Mass/volume] in Serum or Plasma 2025-04-18 06:49:07 [facility] 2.2 [facility] Result panel 5710 Magnesium [Mass/volume] in Serum or Plasma 2025-04-18 06:49:07 [facility] 2.2 mg/dL [facility] Result panel 5711 Magnesium 2025-04-18 07:25 [facility] 2.2 mg/dl (missing) Result panel 5712 POC Glucose 2025-04-18 07:58 [facility] 174 mg/dl (missing) Result panel 5713 POC Glucose 2025-04-18 11:44 [facility] 178 mg/dl (missing) Result panel 5714 POC Glucose 2025-04-18 16:49 [facility] 181 mg/dl (missing) Result panel 5715 Blood Culture 2025-04-18 18:14 [facility] (missing) (mi ssing) (missing) Blood Culture 2025-04-18 18:14 [facility] NO GROW TH AFTER 72 HOURS (missing) (missing) Result panel 5716 Blood Culture 2025-04-18 18:16 [facility] (missing) (mi ssing) (missing) Blood Culture 2025-04-18 18:16 [facility] NO GROW TH AFTER 72 HOURS (missing) (missing) Result panel 5717 POC Glucose 2025-04-18 20:31 [facility] 214 mg/dl (missing) Result panel 5718 POC Glucose 2025-04-19 07:36 [facility] 187 mg/dl (missing) Result panel 5719 POC Glucose 2025-04-19 11:48 [facility] 176 mg/dl (missing) Result panel 5720 Blood Culture 2025-04-19 18:15 [facility] (missing) (mi ssing) (missing) Blood Culture 2025-04-19 18:15 [facility] NO GROW TH AFTER 4 DAYS (missing) (missing) Result panel 5721 Blood Culture 2025-04-19 18:16 [facility] (missing) (mi ssing) (missing) Blood Culture 2025-04-19 18:16 [facility] NO GROW TH AFTER 4 DAYS (missing) (missing) Result panel 5722 Blood Culture 2025-04-20 18:14 [facility] (missing) (mi ssing) (missing) Blood Culture 2025-04-20 18:14 [facility] NO GROW TH AFTER 5 DAYS (missing) (missing) Result panel 5723 Blood Culture 2025-04-20 18:16 [facility] (missing) (mi ssing) (missing) Blood Culture 2025-04-20 18:16 [facility] NO GROW TH AFTER 5 DAYS (missing) (missing) Result panel 5724 X-ray report 2025-05-09 20:49 [facility] (missing) (mis sing) (missing) Result panel 5725 X-ray report 2025-05-09 20:49 [facility] (missing) (mis sing) (missing) Result panel 5726 POC Glucose 2025-05-09 21:07 [facility] 368 mg/dl (missing) Result panel 5727 Urine occult blood detection 2025-05-09 23:19:08 [facility] Negative (missing) (miss ing) Result panel 5728 Urine nitrate measurement 2025-05-09 23:19:08 [facility] Negative (missing) (miss ing) Result panel 5729 Urine bilirubin measurement 2025-05-09 23:19:08 [facility] Negative (missing) (miss ing) Result panel 5730 Urine urobilinogen detection 2025-05-09 23:19:08 [facility] 0.2 E.U./dL (miss ing) Result panel 5731 Urine leukocyte esterase detection 2025-05-09 23:19:08 [facility] Negative (missing) (missing) Result panel 5732 Microscopic analysis of urine for red blood cells (RBC) 2025-05-09 23:19:08 [facility] None seen (missing) (missing) Result panel 5733 Microscopic analysis of urine for white blood cells (WBC) 2025-05-09 23:19:08 [facility] None seen (missing) (missing) Result panel 5734 Urine squamous epithelial cell detection 2025-05-09 23:19:08 [facility] 0-1 /hpf (missing) (miss ing) Result panel 5735 Urine color determination 2025-05-09 23:19:08 [facility] Yellow (missing) (mis sing) Result panel 5736 Urine appearance 2025-05-09 23:19:08 [facility] Clear (missing) (missing) Result panel 5737 Urine color determination 2025-05-09 23:19:08 [facility] Yellow (missing) (mis sing) Result panel 5738 Urine appearance 2025-05-09 23:19:08 [facility] Clear (missing) (missing) Result panel 5739 Urine pH measurement 2025-05-09 23:19:08 [facility] 5.5 (missing) (missing) Result panel 5740 Urine specific gravity measurement 2025-05-09 23:19:08 [facility] 1.015 (missing) (miss ing) Result panel 5741 Urine protein measurement 2025-05-09 23:19:08 [facility] Negative (missing) (miss ing) Result panel 5742 Urine glucose measurement 2025-05-09 23:19:08 [facility] 3+ g/dL (missing) (miss ing) Result panel 5743 Urine ketones measurement 2025-05-09 23:19:08 [facility] Negative (missing) (miss ing) Result panel 5744 Urine occult blood detection 2025-05-09 23:19:08 [facility] Negative (missing) (miss ing) Result panel 5745 Urine nitrate measurement 2025-05-09 23:19:08 [facility] Negative (missing) (miss ing) Result panel 5746 Urine bilirubin measurement 2025-05-09 23:19:08 [facility] Negative (missing) (miss ing) Result panel 5747 Urine urobilinogen detection 2025-05-09 23:19:08 [facility] 0.2 E.U./dL (miss ing) Result panel 5748 Urine leukocyte esterase detection 2025-05-09 23:19:08 [facility] Negative (missing) (missing) Result panel 5749 Microscopic analysis of urine for red blood cells (RBC) 2025-05-09 23:19:08 [facility] None seen (missing) (missing) Result panel 5750 Microscopic analysis of urine for white blood cells (WBC) 2025-05-09 23:19:08 [facility] None seen (missing) (missing) Result panel 5751 Urine squamous epithelial cell detection 2025-05-09 23:19:08 [facility] 0-1 /hpf (missing) (miss ing) Result panel 5752 Urine pH measurement 2025-05-09 23:19:08 [facility] 5.5 (missing) (missing) Result panel 5753 Urine specific gravity measurement 2025-05-09 23:19:08 [facility] 1.015 (missing) (miss ing) Result panel 5754 Urine protein measurement 2025-05-09 23:19:08 [facility] Negative (missing) (miss ing) Result panel 5755 Urine glucose measurement 2025-05-09 23:19:08 [facility] 3+ g/dL (missing) (miss ing) Result panel 5756 Urine ketones measurement 2025-05-09 23:19:08 [facility] Negative (missing) (miss ing) Result panel 5757 Urine color determination 2025-05-10 00:19:07 [facility] Yellow (missing) (mis sing) Result panel 5758 Urine appearance 2025-05-10 00:19:07 [facility] Clear (missing) (missing) Result panel 5759 Urine pH measurement 2025-05-10 00:19:07 [facility] 5.5 (missing) (missing) Result panel 5760 Urine specific gravity measurement 2025-05-10 00:19:07 [facility] 1.015 (missing) (miss ing) Result panel 5761 Urine protein measurement 2025-05-10 00:19:07 [facility] Negative (missing) (miss ing) Result panel 5762 Urine glucose measurement 2025-05-10 00:19:07 [facility] 3+ g/dL (missing) (miss ing) Result panel 5763 Urine ketones measurement 2025-05-10 00:19:07 [facility] Negative (missing) (miss ing) Result panel 5764 Urine occult blood detection 2025-05-10 00:19:07 [facility] Negative (missing) (miss ing) Result panel 5765 Urine nitrate measurement 2025-05-10 00:19:07 [facility] Negative (missing) (miss ing) Result panel 5766 Urine bilirubin measurement 2025-05-10 00:19:07 [facility] Negative (missing) (miss ing) Result panel 5767 Urine urobilinogen detection 2025-05-10 00:19:07 [facility] 0.2 E.U./dL (miss ing) Result panel 5768 Urine leukocyte esterase detection 2025-05-10 00:19:07 [facility] Negative (missing) (missing) Result panel 5769 Microscopic analysis of urine for red blood cells (RBC) 2025-05-10 00:19:07 [facility] None seen (missing) (missing) Result panel 5770 Microscopic analysis of urine for white blood cells (WBC) 2025-05-10 00:19:07 [facility] None seen (missing) (missing) Result panel 5771 Urine squamous epithelial cell detection 2025-05-10 00:19:07 [facility] 0-1 /hpf (missing) (miss ing) Result panel 5772 Urine color determination 2025-05-10 00:19:07 [facility] Yellow (missing) (mis sing) Result panel 5773 Urine appearance 2025-05-10 00:19:07 [facility] Clear (missing) (missing) Result panel 5774 Urine pH measurement 2025-05-10 00:19:07 [facility] 5.5 (missing) (missing) Result panel 5775 Urine specific gravity measurement 2025-05-10 00:19:07 [facility] 1.015 (missing) (miss ing) Result panel 5776 Urine protein measurement 2025-05-10 00:19:07 [facility] Negative (missing) (miss ing) Result panel 5777 Urine glucose measurement 2025-05-10 00:19:07 [facility] 3+ g/dL (missing) (miss ing) Result panel 5778 Urine ketones measurement 2025-05-10 00:19:07 [facility] Negative (missing) (miss ing) Result panel 5779 Urine occult blood detection 2025-05-10 00:19:07 [facility] Negative (missing) (miss ing) Result panel 5780 Urine nitrate measurement 2025-05-10 00:19:07 [facility] Negative (missing) (miss ing) Result panel 5781 Urine bilirubin measurement 2025-05-10 00:19:07 [facility] Negative (missing) (miss ing) Result panel 5782 Urine urobilinogen detection 2025-05-10 00:19:07 [facility] 0.2 E.U./dL (miss ing) Result panel 5783 Urine leukocyte esterase detection 2025-05-10 00:19:07 [facility] Negative (missing) (missing) Result panel 5784 Microscopic analysis of urine for red blood cells (RBC) 2025-05-10 00:19:07 [facility] None seen (missing) (missing) Result panel 5785 Microscopic analysis of urine for white blood cells (WBC) 2025-05-10 00:19:07 [facility] None seen (missing) (missing) Result panel 5786 Urine squamous epithelial cell detection 2025-05-10 00:19:07 [facility] 0-1 /hpf (missing) (miss ing) Result panel 5787 Urine color determination 2025-05-10 00:19:07 [facility] Yellow (missing) (mis sing) Result panel 5788 Urine appearance 2025-05-10 00:19:07 [facility] Clear (missing) (missing) Result panel 5789 Urine pH measurement 2025-05-10 00:19:07 [facility] 5.5 (missing) (missing) Result panel 5790 Urine specific gravity measurement 2025-05-10 00:19:07 [facility] 1.015 (missing) (miss ing) Result panel 5791 Urine protein measurement 2025-05-10 00:19:07 [facility] Negative (missing) (miss ing) Result panel 5792 Urine glucose measurement 2025-05-10 00:19:07 [facility] 3+ g/dL (missing) (miss ing) Result panel 5793 Urine ketones measurement 2025-05-10 00:19:07 [facility] Negative (missing) (miss ing) Result panel 5794 Urine occult blood detection 2025-05-10 00:19:07 [facility] Negative (missing) (miss ing) Result panel 5795 Urine nitrate measurement 2025-05-10 00:19:07 [facility] Negative (missing) (miss ing) Result panel 5796 Urine bilirubin measurement 2025-05-10 00:19:07 [facility] Negative (missing) (miss ing) Result panel 5797 Urine urobilinogen detection 2025-05-10 00:19:07 [facility] 0.2 E.U./dL (miss ing) Result panel 5798 Urine leukocyte esterase detection 2025-05-10 00:19:07 [facility] Negative (missing) (missing) Result panel 5799 Microscopic analysis of urine for red blood cells (RBC) 2025-05-10 00:19:07 [facility] None seen (missing) (missing) Result panel 5800 Microscopic analysis of urine for white blood cells (WBC) 2025-05-10 00:19:07 [facility] None seen (missing) (missing) Result panel 5801 Urine squamous epithelial cell detection 2025-05-10 00:19:07 [facility] 0-1 /hpf (missing) (miss ing) Result panel 5802 Urine color determination 2025-05-10 00:19:07 [facility] Yellow (missing) (mis sing) Result panel 5803 Urine appearance 2025-05-10 00:19:07 [facility] Clear (missing) (missing) Result panel 5804 Urine pH measurement 2025-05-10 00:19:07 [facility] 5.5 (missing) (missing) Result panel 5805 Urine specific gravity measurement 2025-05-10 00:19:07 [facility] 1.015 (missing) (miss ing) Result panel 5806 Urine protein measurement 2025-05-10 00:19:07 [facility] Negative (missing) (miss ing) Result panel 5807 Urine glucose measurement 2025-05-10 00:19:07 [facility] 3+ g/dL (missing) (miss ing) Result panel 5808 Urine ketones measurement 2025-05-10 00:19:07 [facility] Negative (missing) (miss ing) Result panel 5809 Urine occult blood detection 2025-05-10 00:19:07 [facility] Negative (missing) (miss ing) Result panel 5810 Urine nitrate measurement 2025-05-10 00:19:07 [facility] Negative (missing) (miss ing) Result panel 5811 Urine bilirubin measurement 2025-05-10 00:19:07 [facility] Negative (missing) (miss ing) Result panel 5812 Urine urobilinogen detection 2025-05-10 00:19:07 [facility] 0.2 E.U./dL (miss ing) Result panel 5813 Urine leukocyte esterase detection 2025-05-10 00:19:07 [facility] Negative (missing) (missing) Result panel 5814 Microscopic analysis of urine for red blood cells (RBC) 2025-05-10 00:19:07 [facility] None seen (missing) (missing) Result panel 5815 Microscopic analysis of urine for white blood cells (WBC) 2025-05-10 00:19:07 [facility] None seen (missing) (missing) Result panel 5816 Urine squamous epithelial cell detection 2025-05-10 00:19:07 [facility] 0-1 /hpf (missing) (miss ing) Result panel 5817 Urine color determination 2025-05-10 00:19:07 [facility] Yellow (missing) (mis sing) Result panel 5818 Urine appearance 2025-05-10 00:19:07 [facility] Clear (missing) (missing) Result panel 5819 Urine pH measurement 2025-05-10 00:19:07 [facility] 5.5 (missing) (missing) Result panel 5820 Urine specific gravity measurement 2025-05-10 00:19:07 [facility] 1.015 (missing) (miss ing) Result panel 5821 Urine protein measurement 2025-05-10 00:19:07 [facility] Negative (missing) (miss ing) Result panel 5822 Urine glucose measurement 2025-05-10 00:19:07 [facility] 3+ g/dL (missing) (miss ing) Result panel 5823 Urine ketones measurement 2025-05-10 00:19:07 [facility] Negative (missing) (miss ing) Result panel 5824 Urine occult blood detection 2025-05-10 00:19:07 [facility] Negative (missing) (miss ing) Result panel 5825 Urine nitrate measurement 2025-05-10 00:19:07 [facility] Negative (missing) (miss ing) Result panel 5826 Urine bilirubin measurement 2025-05-10 00:19:07 [facility] Negative (missing) (miss ing) Result panel 5827 Urine urobilinogen detection 2025-05-10 00:19:07 [facility] 0.2 E.U./dL (miss ing) Result panel 5828 Urine leukocyte esterase detection 2025-05-10 00:19:07 [facility] Negative (missing) (missing) Result panel 5829 Microscopic analysis of urine for red blood cells (RBC) 2025-05-10 00:19:07 [facility] None seen (missing) (missing) Result panel 5830 Microscopic analysis of urine for white blood cells (WBC) 2025-05-10 00:19:07 [facility] None seen (missing) (missing) Result panel 5831 Urine squamous epithelial cell detection 2025-05-10 00:19:07 [facility] 0-1 /hpf (missing) (miss ing) Result panel 5832 Urine color determination 2025-05-10 00:19:07 [facility] Yellow (missing) (mis sing) Result panel 5833 Urine appearance 2025-05-10 00:19:07 [facility] Clear (missing) (missing) Result panel 5834 Urine pH measurement 2025-05-10 00:19:07 [facility] 5.5 (missing) (missing) Result panel 5835 Urine specific gravity measurement 2025-05-10 00:19:07 [facility] 1.015 (missing) (miss ing) Result panel 5836 Urine protein measurement 2025-05-10 00:19:07 [facility] Negative (missing) (miss ing) Result panel 5837 Urine glucose measurement 2025-05-10 00:19:07 [facility] 3+ g/dL (missing) (miss ing) Result panel 5838 Urine ketones measurement 2025-05-10 00:19:07 [facility] Negative (missing) (miss ing) Result panel 5839 Urine occult blood detection 2025-05-10 00:19:07 [facility] Negative (missing) (miss ing) Result panel 5840 Urine nitrate measurement 2025-05-10 00:19:07 [facility] Negative (missing) (miss ing) Result panel 5841 Urine bilirubin measurement 2025-05-10 00:19:07 [facility] Negative (missing) (miss ing) Result panel 5842 Urine urobilinogen detection 2025-05-10 00:19:07 [facility] 0.2 E.U./dL (miss ing) Result panel 5843 Urine leukocyte esterase detection 2025-05-10 00:19:07 [facility] Negative (missing) (missing) Result panel 5844 Microscopic analysis of urine for red blood cells (RBC) 2025-05-10 00:19:07 [facility] None seen (missing) (missing) Result panel 5845 Microscopic analysis of urine for white blood cells (WBC) 2025-05-10 00:19:07 [facility] None seen (missing) (missing) Result panel 5846 Urine squamous epithelial cell detection 2025-05-10 00:19:07 [facility] 0-1 /hpf (missing) (miss ing) Result panel 5847 Urine color determination 2025-05-10 00:19:07 [facility] Yellow (missing) (mis sing) Result panel 5848 Urine appearance 2025-05-10 00:19:07 [facility] Clear (missing) (missing) Result panel 5849 Urine pH measurement 2025-05-10 00:19:07 [facility] 5.5 (missing) (missing) Result panel 5850 Urine specific gravity measurement 2025-05-10 00:19:07 [facility] 1.015 (missing) (miss ing) Result panel 5851 Urine protein measurement 2025-05-10 00:19:07 [facility] Negative (missing) (miss ing) Result panel 5852 Urine glucose measurement 2025-05-10 00:19:07 [facility] 3+ g/dL (missing) (miss ing) Result panel 5853 Urine ketones measurement 2025-05-10 00:19:07 [facility] Negative (missing) (miss ing) Result panel 5854 Urine occult blood detection 2025-05-10 00:19:07 [facility] Negative (missing) (miss ing) Result panel 5855 Urine nitrate measurement 2025-05-10 00:19:07 [facility] Negative (missing) (miss ing) Result panel 5856 Urine bilirubin measurement 2025-05-10 00:19:07 [facility] Negative (missing) (miss ing) Result panel 5857 Urine urobilinogen detection 2025-05-10 00:19:07 [facility] 0.2 E.U./dL (miss ing) Result panel 5858 Urine leukocyte esterase detection 2025-05-10 00:19:07 [facility] Negative (missing) (missing) Result panel 5859 Microscopic analysis of urine for red blood cells (RBC) 2025-05-10 00:19:07 [facility] None seen (missing) (missing) Result panel 5860 Microscopic analysis of urine for white blood cells (WBC) 2025-05-10 00:19:07 [facility] None seen (missing) (missing) Result panel 5861 Urine squamous epithelial cell detection 2025-05-10 00:19:07 [facility] 0-1 /hpf (missing) (miss ing) Result panel 5862 Urine color determination 2025-05-10 00:19:07 [facility] Yellow (missing) (mis sing) Result panel 5863 Urine appearance 2025-05-10 00:19:07 [facility] Clear (missing) (missing) Result panel 5864 Urine pH measurement 2025-05-10 00:19:07 [facility] 5.5 (missing) (missing) Result panel 5865 Urine specific gravity measurement 2025-05-10 00:19:07 [facility] 1.015 (missing) (miss ing) Result panel 5866 Urine protein measurement 2025-05-10 00:19:07 [facility] Negative (missing) (miss ing) Result panel 5867 Urine glucose measurement 2025-05-10 00:19:07 [facility] 3+ g/dL (missing) (miss ing) Result panel 5868 Urine ketones measurement 2025-05-10 00:19:07 [facility] Negative (missing) (miss ing) Result panel 5869 Urine occult blood detection 2025-05-10 00:19:07 [facility] Negative (missing) (miss ing) Result panel 5870 Urine nitrate measurement 2025-05-10 00:19:07 [facility] Negative (missing) (miss ing) Result panel 5871 Urine bilirubin measurement 2025-05-10 00:19:07 [facility] Negative (missing) (miss ing) Result panel 5872 Urine urobilinogen detection 2025-05-10 00:19:07 [facility] 0.2 E.U./dL (miss ing) Result panel 5873 Urine leukocyte esterase detection 2025-05-10 00:19:07 [facility] Negative (missing) (missing) Result panel 5874 Microscopic analysis of urine for red blood cells (RBC) 2025-05-10 00:19:07 [facility] None seen (missing) (missing) Result panel 5875 Microscopic analysis of urine for white blood cells (WBC) 2025-05-10 00:19:07 [facility] None seen (missing) (missing) Result panel 5876 Urine squamous epithelial cell detection 2025-05-10 00:19:07 [facility] 0-1 /hpf (missing) (miss ing) Result panel 5877 Urine color determination 2025-05-10 00:19:07 [facility] Yellow (missing) (mis sing) Result panel 5878 Urine appearance 2025-05-10 00:19:07 [facility] Clear (missing) (missing) Result panel 5879 Urine pH measurement 2025-05-10 00:19:07 [facility] 5.5 (missing) (missing) Result panel 5880 Urine specific gravity measurement 2025-05-10 00:19:07 [facility] 1.015 (missing) (miss ing) Result panel 5881 Urine protein measurement 2025-05-10 00:19:07 [facility] Negative (missing) (miss ing) Result panel 5882 Urine glucose measurement 2025-05-10 00:19:07 [facility] 3+ g/dL (missing) (miss ing) Result panel 5883 Urine ketones measurement 2025-05-10 00:19:07 [facility] Negative (missing) (miss ing) Result panel 5884 Urine occult blood detection 2025-05-10 00:19:07 [facility] Negative (missing) (miss ing) Result panel 5885 Urine nitrate measurement 2025-05-10 00:19:07 [facility] Negative (missing) (miss ing) Result panel 5886 Urine bilirubin measurement 2025-05-10 00:19:07 [facility] Negative (missing) (miss ing) Result panel 5887 Urine urobilinogen detection 2025-05-10 00:19:07 [facility] 0.2 E.U./dL (miss ing) Result panel 5888 Urine leukocyte esterase detection 2025-05-10 00:19:07 [facility] Negative (missing) (missing) Result panel 5889 Microscopic analysis of urine for red blood cells (RBC) 2025-05-10 00:19:07 [facility] None seen (missing) (missing) Result panel 5890 Microscopic analysis of urine for white blood cells (WBC) 2025-05-10 00:19:07 [facility] None seen (missing) (missing) Result panel 5891 Urine squamous epithelial cell detection 2025-05-10 00:19:07 [facility] 0-1 /hpf (missing) (miss ing) Result panel 5892 Urobilinogen Urine UA 2025-05-10 01:01 [facility] 0.2 e.u./dl (missing ) Specific [place] Urine UA 2025-05-10 01:01 [facility] 1.015 (missing) (missing ) Glucose Urine UA 2025-05-10 01:01 [facility] 3 g/dl (missing) pH Urine UA 2025-05-10 01:01 [facility] 5.5 (miss ing) (missing) Appearance Urine UA 2025-05-10 01:01 [facility] CLEAR (missing) (missing) Bilirubin Urine UA 2025-05-10 01:01 [facility] NEGATIVE (missing) (missing) Ketones Urine UA 2025-05-10 01:01 [facility] NEGATIVE (missing) (missing) Leukocyte Esterase Urine UA 2025-05-10 01:01 [facility] NEGATIVE (missing) (missing ) Nitrite Urine UA 2025-05-10 01:01 [facility] NEGATIVE (missing) (missing) Occult Blood Urine UA 2025-05-10 01:01 [facility] NEGATIVE (missing) (missing ) Protein Urine UA 2025-05-10 01:01 [facility] NEGATIVE (missing) (missing) Color Urine UA 2025-05-10 01:01 [facility] YELLOW (m issing) Urine Source: Urine, Random Culture if Indicated? Y Result panel 5893 Squamous Epithelial Cell Urine 2025-05-10 01:04 [facility] 0-1 /HPF (missing) (missing) Urobilinogen Urine UA 2025-05-10 01:04 [facility] 0.2 e.u./dl (missing) Specific [place] Urine UA 2025-05-10 01:04 [facility] 1.015 (missing) (missing) Urine Volume 2025-05-10 01:04 [facility] 10mL (spun) (missing) (missing) Glucose Urine UA 2025-05-10 01:04 [facility] 3 g/dl (missing) pH Urine UA 2025-05-10 01:04 [facility] 5.5 (missing) (missing) Appearance Urine UA 2025-05-10 01:04 [facility] CLEAR (missing) (missing) Culture Indicated Urine 2025-05-10 01:04 [facility] Cult Not Indicated (missing) (missing) Bilirubin Urine UA 2025-05-10 01:04 [facility] NEGATIVE (missing) (missing) Ketones Urine UA 2025-05-10 01:04 [facility] NEGATIVE (missing) (missing) Leukocyte Esterase Urine UA 2025-05-10 01:04 [facility] NEGATIVE (missing) (missing) Nitrite Urine UA 2025-05-10 01:04 [facility] NEGATIVE (missing) (missing) Occult Blood Urine UA 2025-05-10 01:04 [facility] NEGATIVE (missing) (missing) Protein Urine UA 2025-05-10 01:04 [facility] NEGATIVE (missing) (missing) Bacteria Urine 2025-05-10 01:04 [facility] None Seen (missing) (missing) RBC Urine 2025-05-10 01:04 [facility] None Seen (missing) (missing) WBC Urine 2025-05-10 01:04 [facility] None Seen (missing) (missing) Color Urine UA 2025-05-10 01:04 [facility] YELLOW (missing) Urine Source: Urine, Random Culture if Indicated? Y Result panel 5894 Lactate (Lactic Acid) 2025-05-10 02:51 [facility] 3.9 mmol/l Yes/No query for Sepsis Lactate Rule Y Result panel 5895 Blood culture 2025-05-10 03:12:07 [facility] NO G ROWTH AFTER 5 DAYS (missing) (missing) Result panel 5896 Blood culture 2025-05-10 03:12:07 [facility] NO G ROWTH AFTER 5 DAYS (missing) (missing) Result panel 5897 Blood culture 2025-05-10 03:12:07 [facility] NO G ROWTH AFTER 5 DAYS (missing) (missing) Result panel 5898 Blood culture 2025-05-10 03:12:07 [facility] NO G ROWTH AFTER 5 DAYS (missing) (missing) Result panel 5899 Blood culture 2025-05-10 03:12:07 [facility] NO G ROWTH AFTER 5 DAYS (missing) (missing) Result panel 5900 Blood culture 2025-05-10 03:12:07 [facility] NO G ROWTH AFTER 5 DAYS (missing) (missing) Result panel 5901 Blood culture 2025-05-10 03:12:07 [facility] NO G ROWTH AFTER 5 DAYS (missing) (missing) Result panel 5902 Sodium [Moles/volume] in Serum or Plasma 2025-05-10 03:12:07 [facility] 132 mmol/L ( issing) Result panel 5903 Potassium [Moles/volume] in Serum or Plasma 2025-05-10 03:12:07 [facility] 5.1 mmol/L ( issing) Result panel 5904 Chloride [Moles/volume] in Serum or Plasma 2025-05-10 03:12:07 [facility] 99 mmol/L ( issing) Result panel 5905 Carbon dioxide, total [Moles/volume] in Serum or Plasma 2025-05-10 03:12:07 [facility] 19 mmol/L (miss ing) Result panel 5906 Urea nitrogen [Mass/volume] in Serum or Plasma 2025-05-10 03:12:07 [facility] 28 mg/dL ([facility]) Result panel 5907 Creatinine [Mass/volume] in Serum or Plasma 2025-05-10 03:12:07 [facility] 1.05 mg/dL ([facility]) Result panel 5908 Glomerular filtration rate (GFR) estimation 2025-05-10 03:12:07 [facility] 55 mL/min ( missing) Result panel 5909 BUN/creatinine ratio 2025-05-10 03:12:07 [facility] 26. 7 (missing) (missing) Result panel 5910 Glucose [Mass/volume] in Serum or Plasma 2025-05-10 03:12:07 [facility] 399 mg/dL ([facility]) Result panel 5911 Calcium [Mass/volume] in Serum or Plasma 2025-05-10 03:12:07 [facility] 9.0 mg/dL ([facility]) Result panel 5912 Blood culture 2025-05-10 03:12:08 [facility] NO G ROWTH AFTER 5 DAYS (missing) (missing) Result panel 5913 Blood culture 2025-05-10 03:12:08 [facility] NO G ROWTH AFTER 5 DAYS (missing) (missing) Result panel 5914 Blood culture 2025-05-10 03:19:07 [facility] NO G ROWTH AFTER 5 DAYS (missing) (missing) Result panel 5915 Blood culture 2025-05-10 03:19:07 [facility] NO G ROWTH AFTER 5 DAYS (missing) (missing) Result panel 5916 Blood culture 2025-05-10 03:19:07 [facility] NO G ROWTH AFTER 5 DAYS (missing) (missing) Result panel 5917 Blood culture 2025-05-10 03:19:07 [facility] NO G ROWTH AFTER 5 DAYS (missing) (missing) Result panel 5918 Blood culture 2025-05-10 03:19:07 [facility] NO G ROWTH AFTER 5 DAYS (missing) (missing) Result panel 5919 Blood culture 2025-05-10 03:19:07 [facility] NO G ROWTH AFTER 5 DAYS (missing) (missing) Result panel 5920 Blood culture 2025-05-10 03:19:07 [facility] NO G ROWTH AFTER 5 DAYS (missing) (missing) Result panel 5921 Blood culture 2025-05-10 03:19:08 [facility] NO G ROWTH AFTER 5 DAYS (missing) (missing) Result panel 5922 Blood culture 2025-05-10 03:19:08 [facility] NO G ROWTH AFTER 5 DAYS (missing) (missing) Result panel 5923 Creatinine 2025-05-10 03:40 [facility] 1.05 mg/dl (missing) Sodium 2025-05-10 03:40 [facility] 132 mmol/l (missing) Carbon Dioxide 2025-05-10 03:40 [facility] 19 mm ol/l (missing) BUN Creatinine Ratio 2025-05-10 03:40 [facility] 26.7 (missing) (missing ) Blood Urea Nitrogen 2025-05-10 03:40 [facility] 28 mg/dl (missing) Glucose 2025-05-10 03:40 [facility] 399 mg/dl (missing) Potassium 2025-05-10 03:40 [facility] 5.1 mmol/l (missing) Estimated Glomerular Filt Rate 2025-05-10 03:40 [facility] 55 ml/min Reported eGFR is based the CKD-EPI 2020 equation that does not use a race coefficient. An eGFR below 60 mL/min/1.73m2 suggests that some kidney damage has occurred, and indicative of chronic kidney disease if persisting greater than 3 months. An eGFR less than 15 is indicative of kidney failure. Calcium 2025-05-10 03:40 [facility] 9.0 mg/dl (missing) Chloride 2025-05-10 03:40 [facility] 99 mmol/l (missing) Result panel 5924 Lactate [Mass/volume] in Serum or Plasma 2025-05-10 04:00:07 [facility] 3.9 mmol/L (m issing) Result panel 5925 Lactate 2HR (Lactic Acid Rflx) 2025-05-10 04:24 [facility] [place] 3.9 mmol/l (missing) Result panel 5926 POC Glucose 2025-05-10 05:25 [facility] 450 mg/dl (missing) Result panel 5927 POC Glucose 2025-05-10 06:51 [facility] 400 mg/dl (missing) Result panel 5928 POC Glucose 2025-05-10 07:51 [facility] 399 mg/dl (missing) Result panel 5929 Eosinophils Absolute Auto 2025-05-10 09:12 [facility] 0 /ul (missing) Eosinophils Percent Auto 2025-05-10 09:12 [facility] 0. 0 % (missing) Basophils Percent Auto 2025-05-10 09:12 [facility] 0.4 % (missing) Monocytes Percent Auto 2025-05-10 09:12 [facility] 0.4 % (missing) Basophils Absolute Auto 2025-05-10 09:12 [facility] 100 /ul (missing) Monocytes Absolute Auto 2025-05-10 09:12 [facility] 100 /ul (missing) Hemoglobin 2025-05-10 09:12 [facility] 13.0 g/dl (missing) Lymphocytes Absolute Auto 2025-05-10 09:12 [facility] 1 300 /ul (missing) Red Cell Distribution Width 2025-05-10 09:12 [facility] 14.0 % (missing) Neutrophils Absolute Auto 2025-05-10 09:12 [facility] 1 4000 /ul (missing) White Blood Cell Count 2025-05-10 09:12 [facility] 15.4 x10 3/ul (missing) Platelet Count 2025-05-10 09:12 [facility] 237 x1 0 3/ul (missing) Mean Corpuscular Hemoglobin 2025-05-10 09:12 [facility] 29.9 pg (missing) Mean Corpuscular HGB Conc 2025-05-10 09:12 [facility] 3 3.0 % (missing) Hematocrit 2025-05-10 09:12 [facility] 39.3 % (missing) Red Blood Cell Count 2025-05-10 09:12 [facility] 4.33 x10 6/ul (missing) Lymphocytes Percent Auto 2025-05-10 09:12 [facility] 8. 3 % (missing) Mean Corpuscular Volume 2025-05-10 09:12 [facility] 90. 6 fl (missing) Neutrophils Percent Auto 2025-05-10 09:12 [facility] 90 .9 % (missing) Result panel 5930 Lactate (Lactic Acid) 2025-05-10 09:25 [facility] 4.0 mmol/l Yes/No query for Sepsis Lactate Rule Y Result panel 5931 CAT scan report 2025-05-10 09:52 [facility] (missing) ( missing) (missing) Result panel 5932 CAT scan report 2025-05-10 09:59 [facility] (missing) ( missing) (missing) Result panel 5933 Adenovirus DNA [Presence] in Nasopharynx by TAMMI with non-probe detection 2025-05-10 10:05:08 [facility] Not detected (missing) (missing) Result panel 5934 SARS-CoV-2 (COVID-19) RNA [Presence] in Nasopharynx by TAMMI with non-probe detection 2025-05-10 10:05:08 [facility] Not detected (missing) (missing) Result panel 5935 Human coronavirus 229E RNA [Presence] in Nasopharynx by TAMMI with non-probe detection 2025-05-10 10:05:08 [facility] Not detected (missing) (missing) Result panel 5936 Human coronavirus HKU1 RNA [Presence] in Nasopharynx by TAMMI with non-probe detection 2025-05-10 10:05:08 [facility] Not detected (missing) (missing) Result panel 5937 Human coronavirus NL63 RNA [Presence] in Nasopharynx by TAMMI with non-probe detection 2025-05-10 10:05:08 [facility] Not detected (missing) (missing) Result panel 5938 Human coronavirus OC43 RNA [Presence] in Nasopharynx by TAMMI with non-probe detection 2025-05-10 10:05:08 [facility] Not detected (missing) (missing) Result panel 5939 Human metapneumovirus RNA [Presence] in Nasopharynx by TAMMI with non-probe detection 2025-05-10 10:05:08 [facility] Not detected (missing) (missing) Result panel 5940 Rhinovirus+Enterovirus RNA [Presence] in Nasopharynx by TAMMI with non-probe detection 2025-05-10 10:05:08 [facility] Not detected (missing) (missing) Result panel 5941 Influenza virus A RNA [Presence] in Nasopharynx by TAMMI with non-probe detection 2025-05-10 10:05:08 [facility] Not detected (missing) (missing) Result panel 5942 Influenza virus B RNA [Presence] in Nasopharynx by TAMMI with non-probe detection 2025-05-10 10:05:08 [facility] Not detected (missing) (missing) Result panel 5943 Parainfluenza virus 1 RNA [Presence] in Nasopharynx by TAMMI with non-probe detection 2025-05-10 10:05:08 [facility] Not detected (missing) (missing) Result panel 5944 Parainfluenza virus 2 RNA [Presence] in Nasopharynx by TAMMI with non-probe detection 2025-05-10 10:05:08 [facility] Not detected (missing) (missing) Result panel 5945 Parainfluenza virus 3 RNA [Presence] in Nasopharynx by TAMMI with non-probe detection 2025-05-10 10:05:08 [facility] Not detected (missing) (missing) Result panel 5946 Parainfluenza virus 4 RNA [Presence] in Nasopharynx by TAMMI with non-probe detection 2025-05-10 10:05:08 [facility] Not detected (missing) (missing) Result panel 5947 Respiratory syncytial virus RNA [Presence] in Nasopharynx by TAMMI with non-probe detec 2025-05-10 10:05:08 [facility] Not detected (missing) (missing) Result panel 5948 Bordetella pertussis.pertussis toxin promoter region [Presence] in Nasopharynx by TAMMI 2025-05-10 10:05:08 [facility] Not detected (missing) (missing) Result panel 5949 Chlamydophila pneumoniae DNA [Presence] in Nasopharynx by TAMMI with non-probe detectio 2025-05-10 10:05:08 [facility] Not detected (missing) (missing) Result panel 5950 Mycoplasma pneumoniae DNA [Presence] in Nasopharynx by TAMMI with non-probe detection 2025-05-10 10:05:08 [facility] Not detected (missing) (missing) Result panel 5951 Adenovirus DNA [Presence] in Nasopharynx by TAMMI with non-probe detection 2025-05-10 10:05:08 [facility] Not detected (missing) (missing) Result panel 5952 SARS-CoV-2 (COVID-19) RNA [Presence] in Nasopharynx by TAMMI with non-probe detection 2025-05-10 10:05:08 [facility] Not detected (missing) (missing) Result panel 5953 Human coronavirus 229E RNA [Presence] in Nasopharynx by TAMMI with non-probe detection 2025-05-10 10:05:08 [facility] Not detected (missing) (missing) Result panel 5954 Human coronavirus HKU1 RNA [Presence] in Nasopharynx by TAMMI with non-probe detection 2025-05-10 10:05:08 [facility] Not detected (missing) (missing) Result panel 5955 Human coronavirus NL63 RNA [Presence] in Nasopharynx by TAMMI with non-probe detection 2025-05-10 10:05:08 [facility] Not detected (missing) (missing) Result panel 5956 Human coronavirus OC43 RNA [Presence] in Nasopharynx by TAMMI with non-probe detection 2025-05-10 10:05:08 [facility] Not detected (missing) (missing) Result panel 5957 Human metapneumovirus RNA [Presence] in Nasopharynx by TAMMI with non-probe detection 2025-05-10 10:05:08 [facility] Not detected (missing) (missing) Result panel 5958 Rhinovirus+Enterovirus RNA [Presence] in Nasopharynx by TAMMI with non-probe detection 2025-05-10 10:05:08 [facility] Not detected (missing) (missing) Result panel 5959 Influenza virus A RNA [Presence] in Nasopharynx by TAMMI with non-probe detection 2025-05-10 10:05:08 [facility] Not detected (missing) (missing) Result panel 5960 Influenza virus B RNA [Presence] in Nasopharynx by TAMMI with non-probe detection 2025-05-10 10:05:08 [facility] Not detected (missing) (missing) Result panel 5961 Parainfluenza virus 1 RNA [Presence] in Nasopharynx by TAMMI with non-probe detection 2025-05-10 10:05:08 [facility] Not detected (missing) (missing) Result panel 5962 Parainfluenza virus 2 RNA [Presence] in Nasopharynx by TAMMI with non-probe detection 2025-05-10 10:05:08 [facility] Not detected (missing) (missing) Result panel 5963 Parainfluenza virus 3 RNA [Presence] in Nasopharynx by TAMMI with non-probe detection 2025-05-10 10:05:08 [facility] Not detected (missing) (missing) Result panel 5964 Parainfluenza virus 4 RNA [Presence] in Nasopharynx by TAMMI with non-probe detection 2025-05-10 10:05:08 [facility] Not detected (missing) (missing) Result panel 5965 Respiratory syncytial virus RNA [Presence] in Nasopharynx by TAMMI with non-probe detec 2025-05-10 10:05:08 [facility] Not detected (missing) (missing) Result panel 5966 Bordetella pertussis.pertussis toxin promoter region [Presence] in Nasopharynx by TAMMI 2025-05-10 10:05:08 [facility] Not detected (missing) (missing) Result panel 5967 Chlamydophila pneumoniae DNA [Presence] in Nasopharynx by TAMMI with non-probe detectio 2025-05-10 10:05:08 [facility] Not detected (missing) (missing) Result panel 5968 Mycoplasma pneumoniae DNA [Presence] in Nasopharynx by TAMMI with non-probe detection 2025-05-10 10:05:08 [facility] Not detected (missing) (missing) Result panel 5969 Adenovirus DNA [Presence] in Nasopharynx by TAMMI with non-probe detection 2025-05-10 11:05:07 [facility] Not detected (missing) (missing) Result panel 5970 SARS-CoV-2 (COVID-19) RNA [Presence] in Nasopharynx by TAMMI with non-probe detection 2025-05-10 11:05:07 [facility] Not detected (missing) (missing) Result panel 5971 Human coronavirus 229E RNA [Presence] in Nasopharynx by TAMMI with non-probe detection 2025-05-10 11:05:07 [facility] Not detected (missing) (missing) Result panel 5972 Human coronavirus HKU1 RNA [Presence] in Nasopharynx by TAMMI with non-probe detection 2025-05-10 11:05:07 [facility] Not detected (missing) (missing) Result panel 5973 Human coronavirus NL63 RNA [Presence] in Nasopharynx by TAMMI with non-probe detection 2025-05-10 11:05:07 [facility] Not detected (missing) (missing) Result panel 5974 Human coronavirus OC43 RNA [Presence] in Nasopharynx by TAMMI with non-probe detection 2025-05-10 11:05:07 [facility] Not detected (missing) (missing) Result panel 5975 Human metapneumovirus RNA [Presence] in Nasopharynx by TAMMI with non-probe detection 2025-05-10 11:05:07 [facility] Not detected (missing) (missing) Result panel 5976 Rhinovirus+Enterovirus RNA [Presence] in Nasopharynx by TAMMI with non-probe detection 2025-05-10 11:05:07 [facility] Not detected (missing) (missing) Result panel 5977 Influenza virus A RNA [Presence] in Nasopharynx by TAMMI with non-probe detection 2025-05-10 11:05:07 [facility] Not detected (missing) (missing) Result panel 5978 Influenza virus B RNA [Presence] in Nasopharynx by TAMMI with non-probe detection 2025-05-10 11:05:07 [facility] Not detected (missing) (missing) Result panel 5979 Parainfluenza virus 1 RNA [Presence] in Nasopharynx by TAMMI with non-probe detection 2025-05-10 11:05:07 [facility] Not detected (missing) (missing) Result panel 5980 Parainfluenza virus 2 RNA [Presence] in Nasopharynx by TAMMI with non-probe detection 2025-05-10 11:05:07 [facility] Not detected (missing) (missing) Result panel 5981 Parainfluenza virus 3 RNA [Presence] in Nasopharynx by TAMMI with non-probe detection 2025-05-10 11:05:07 [facility] Not detected (missing) (missing) Result panel 5982 Parainfluenza virus 4 RNA [Presence] in Nasopharynx by TAMMI with non-probe detection 2025-05-10 11:05:07 [facility] Not detected (missing) (missing) Result panel 5983 Respiratory syncytial virus RNA [Presence] in Nasopharynx by TAMMI with non-probe detec 2025-05-10 11:05:07 [facility] Not detected (missing) (missing) Result panel 5984 Bordetella pertussis.pertussis toxin promoter region [Presence] in Nasopharynx by TAMMI 2025-05-10 11:05:07 [facility] Not detected (missing) (missing) Result panel 5985 Chlamydophila pneumoniae DNA [Presence] in Nasopharynx by TAMMI with non-probe detectio 2025-05-10 11:05:07 [facility] Not detected (missing) (missing) Result panel 5986 Mycoplasma pneumoniae DNA [Presence] in Nasopharynx by TAMMI with non-probe detection 2025-05-10 11:05:07 [facility] Not detected (missing) (missing) Result panel 5987 Adenovirus DNA [Presence] in Nasopharynx by TAMMI with non-probe detection 2025-05-10 11:05:07 [facility] Not detected (missing) (missing) Result panel 5988 SARS-CoV-2 (COVID-19) RNA [Presence] in Nasopharynx by TAMMI with non-probe detection 2025-05-10 11:05:07 [facility] Not detected (missing) (missing) Result panel 5989 Human coronavirus 229E RNA [Presence] in Nasopharynx by TAMMI with non-probe detection 2025-05-10 11:05:07 [facility] Not detected (missing) (missing) Result panel 5990 Human coronavirus HKU1 RNA [Presence] in Nasopharynx by TAMMI with non-probe detection 2025-05-10 11:05:07 [facility] Not detected (missing) (missing) Result panel 5991 Human coronavirus NL63 RNA [Presence] in Nasopharynx by TAMMI with non-probe detection 2025-05-10 11:05:07 [facility] Not detected (missing) (missing) Result panel 5992 Human coronavirus OC43 RNA [Presence] in Nasopharynx by TAMMI with non-probe detection 2025-05-10 11:05:07 [facility] Not detected (missing) (missing) Result panel 5993 Human metapneumovirus RNA [Presence] in Nasopharynx by TAMMI with non-probe detection 2025-05-10 11:05:07 [facility] Not detected (missing) (missing) Result panel 5994 Adenovirus DNA [Presence] in Nasopharynx by TAMMI with non-probe detection 2025-05-10 11:05:07 [facility] Not detected (missing) (missing) Result panel 5995 SARS-CoV-2 (COVID-19) RNA [Presence] in Nasopharynx by TAMMI with non-probe detection 2025-05-10 11:05:07 [facility] Not detected (missing) (missing) Result panel 5996 Human coronavirus 229E RNA [Presence] in Nasopharynx by TAMMI with non-probe detection 2025-05-10 11:05:07 [facility] Not detected (missing) (missing) Result panel 5997 Human coronavirus HKU1 RNA [Presence] in Nasopharynx by TAMMI with non-probe detection 2025-05-10 11:05:07 [facility] Not detected (missing) (missing) Result panel 5998 Human coronavirus NL63 RNA [Presence] in Nasopharynx by TAMMI with non-probe detection 2025-05-10 11:05:07 [facility] Not detected (missing) (missing) Result panel 5999 Human coronavirus OC43 RNA [Presence] in Nasopharynx by TAMMI with non-probe detection 2025-05-10 11:05:07 [facility] Not detected (missing) (missing) Result panel 6000 Rhinovirus+Enterovirus RNA [Presence] in Nasopharynx by TAMMI with non-probe detection 2025-05-10 11:05:07 [facility] Not detected (missing) (missing) Result panel 6001 Human metapneumovirus RNA [Presence] in Nasopharynx by TAMMI with non-probe detection 2025-05-10 11:05:07 [facility] Not detected (missing) (missing) Result panel 6002 Rhinovirus+Enterovirus RNA [Presence] in Nasopharynx by TAMMI with non-probe detection 2025-05-10 11:05:07 [facility] Not detected (missing) (missing) Result panel 6003 Influenza virus A RNA [Presence] in Nasopharynx by TAMMI with non-probe detection 2025-05-10 11:05:07 [facility] Not detected (missing) (missing) Result panel 6004 Influenza virus B RNA [Presence] in Nasopharynx by TAMMI with non-probe detection 2025-05-10 11:05:07 [facility] Not detected (missing) (missing) Result panel 6005 Parainfluenza virus 1 RNA [Presence] in Nasopharynx by TAMMI with non-probe detection 2025-05-10 11:05:07 [facility] Not detected (missing) (missing) Result panel 6006 Parainfluenza virus 2 RNA [Presence] in Nasopharynx by TAMMI with non-probe detection 2025-05-10 11:05:07 [facility] Not detected (missing) (missing) Result panel 6007 Parainfluenza virus 3 RNA [Presence] in Nasopharynx by TAMMI with non-probe detection 2025-05-10 11:05:07 [facility] Not detected (missing) (missing) Result panel 6008 Parainfluenza virus 4 RNA [Presence] in Nasopharynx by TAMMI with non-probe detection 2025-05-10 11:05:07 [facility] Not detected (missing) (missing) Result panel 6009 Respiratory syncytial virus RNA [Presence] in Nasopharynx by TAMMI with non-probe detec 2025-05-10 11:05:07 [facility] Not detected (missing) (missing) Result panel 6010 Bordetella pertussis.pertussis toxin promoter region [Presence] in Nasopharynx by TAMMI 2025-05-10 11:05:07 [facility] Not detected (missing) (missing) Result panel 6011 Influenza virus A RNA [Presence] in Nasopharynx by TAMMI with non-probe detection 2025-05-10 11:05:07 [facility] Not detected (missing) (missing) Result panel 6012 Chlamydophila pneumoniae DNA [Presence] in Nasopharynx by TAMMI with non-probe detectio 2025-05-10 11:05:07 [facility] Not detected (missing) (missing) Result panel 6013 Mycoplasma pneumoniae DNA [Presence] in Nasopharynx by TAMMI with non-probe detection 2025-05-10 11:05:07 [facility] Not detected (missing) (missing) Result panel 6014 Influenza virus B RNA [Presence] in Nasopharynx by TAMMI with non-probe detection 2025-05-10 11:05:07 [facility] Not detected (missing) (missing) Result panel 6015 Parainfluenza virus 1 RNA [Presence] in Nasopharynx by TAMMI with non-probe detection 2025-05-10 11:05:07 [facility] Not detected (missing) (missing) Result panel 6016 Parainfluenza virus 2 RNA [Presence] in Nasopharynx by TAMMI with non-probe detection 2025-05-10 11:05:07 [facility] Not detected (missing) (missing) Result panel 6017 Parainfluenza virus 3 RNA [Presence] in Nasopharynx by TAMMI with non-probe detection 2025-05-10 11:05:07 [facility] Not detected (missing) (missing) Result panel 6018 Parainfluenza virus 4 RNA [Presence] in Nasopharynx by TAMMI with non-probe detection 2025-05-10 11:05:07 [facility] Not detected (missing) (missing) Result panel 6019 Respiratory syncytial virus RNA [Presence] in Nasopharynx by TAMMI with non-probe detec 2025-05-10 11:05:07 [facility] Not detected (missing) (missing) Result panel 6020 Bordetella pertussis.pertussis toxin promoter region [Presence] in Nasopharynx by TAMMI 2025-05-10 11:05:07 [facility] Not detected (missing) (missing) Result panel 6021 Chlamydophila pneumoniae DNA [Presence] in Nasopharynx by TAMMI with non-probe detectio 2025-05-10 11:05:07 [facility] Not detected (missing) (missing) Result panel 6022 Mycoplasma pneumoniae DNA [Presence] in Nasopharynx by TAMMI with non-probe detection 2025-05-10 11:05:07 [facility] Not detected (missing) (missing) Result panel 6023 Adenovirus DNA [Presence] in Nasopharynx by TAMMI with non-probe detection 2025-05-10 11:05:07 [facility] Not detected (missing) (missing) Result panel 6024 SARS-CoV-2 (COVID-19) RNA [Presence] in Nasopharynx by TAMMI with non-probe detection 2025-05-10 11:05:07 [facility] Not detected (missing) (missing) Result panel 6025 Human coronavirus 229E RNA [Presence] in Nasopharynx by TAMMI with non-probe detection 2025-05-10 11:05:07 [facility] Not detected (missing) (missing) Result panel 6026 Human coronavirus HKU1 RNA [Presence] in Nasopharynx by TAMMI with non-probe detection 2025-05-10 11:05:07 [facility] Not detected (missing) (missing) Result panel 6027 Human coronavirus NL63 RNA [Presence] in Nasopharynx by TAMMI with non-probe detection 2025-05-10 11:05:07 [facility] Not detected (missing) (missing) Result panel 6028 Human coronavirus OC43 RNA [Presence] in Nasopharynx by TAMMI with non-probe detection 2025-05-10 11:05:07 [facility] Not detected (missing) (missing) Result panel 6029 Human metapneumovirus RNA [Presence] in Nasopharynx by TAMMI with non-probe detection 2025-05-10 11:05:07 [facility] Not detected (missing) (missing) Result panel 6030 Rhinovirus+Enterovirus RNA [Presence] in Nasopharynx by TAMMI with non-probe detection 2025-05-10 11:05:07 [facility] Not detected (missing) (missing) Result panel 6031 Influenza virus A RNA [Presence] in Nasopharynx by TAMMI with non-probe detection 2025-05-10 11:05:07 [facility] Not detected (missing) (missing) Result panel 6032 Influenza virus B RNA [Presence] in Nasopharynx by TAMMI with non-probe detection 2025-05-10 11:05:07 [facility] Not detected (missing) (missing) Result panel 6033 Parainfluenza virus 1 RNA [Presence] in Nasopharynx by TAMMI with non-probe detection 2025-05-10 11:05:07 [facility] Not detected (missing) (missing) Result panel 6034 Parainfluenza virus 2 RNA [Presence] in Nasopharynx by TAMMI with non-probe detection 2025-05-10 11:05:07 [facility] Not detected (missing) (missing) Result panel 6035 Parainfluenza virus 3 RNA [Presence] in Nasopharynx by TAMMI with non-probe detection 2025-05-10 11:05:07 [facility] Not detected (missing) (missing) Result panel 6036 Parainfluenza virus 4 RNA [Presence] in Nasopharynx by TAMMI with non-probe detection 2025-05-10 11:05:07 [facility] Not detected (missing) (missing) Result panel 6037 Respiratory syncytial virus RNA [Presence] in Nasopharynx by TAMMI with non-probe detec 2025-05-10 11:05:07 [facility] Not detected (missing) (missing) Result panel 6038 Bordetella pertussis.pertussis toxin promoter region [Presence] in Nasopharynx by TAMMI 2025-05-10 11:05:07 [facility] Not detected (missing) (missing) Result panel 6039 Chlamydophila pneumoniae DNA [Presence] in Nasopharynx by TAMMI with non-probe detectio 2025-05-10 11:05:07 [facility] Not detected (missing) (missing) Result panel 6040 Mycoplasma pneumoniae DNA [Presence] in Nasopharynx by TAMMI with non-probe detection 2025-05-10 11:05:07 [facility] Not detected (missing) (missing) Result panel 6041 Adenovirus DNA [Presence] in Nasopharynx by TAMMI with non-probe detection 2025-05-10 11:05:07 [facility] Not detected (missing) (missing) Result panel 6042 SARS-CoV-2 (COVID-19) RNA [Presence] in Nasopharynx by TAMMI with non-probe detection 2025-05-10 11:05:07 [facility] Not detected (missing) (missing) Result panel 6043 Human coronavirus 229E RNA [Presence] in Nasopharynx by TAMMI with non-probe detection 2025-05-10 11:05:07 [facility] Not detected (missing) (missing) Result panel 6044 Human coronavirus HKU1 RNA [Presence] in Nasopharynx by TAMMI with non-probe detection 2025-05-10 11:05:07 [facility] Not detected (missing) (missing) Result panel 6045 Human coronavirus NL63 RNA [Presence] in Nasopharynx by TAMMI with non-probe detection 2025-05-10 11:05:07 [facility] Not detected (missing) (missing) Result panel 6046 Human coronavirus OC43 RNA [Presence] in Nasopharynx by TAMMI with non-probe detection 2025-05-10 11:05:07 [facility] Not detected (missing) (missing) Result panel 6047 Human metapneumovirus RNA [Presence] in Nasopharynx by TAMMI with non-probe detection 2025-05-10 11:05:07 [facility] Not detected (missing) (missing) Result panel 6048 Rhinovirus+Enterovirus RNA [Presence] in Nasopharynx by TAMMI with non-probe detection 2025-05-10 11:05:07 [facility] Not detected (missing) (missing) Result panel 6049 Influenza virus A RNA [Presence] in Nasopharynx by TAMMI with non-probe detection 2025-05-10 11:05:07 [facility] Not detected (missing) (missing) Result panel 6050 Influenza virus B RNA [Presence] in Nasopharynx by TAMMI with non-probe detection 2025-05-10 11:05:07 [facility] Not detected (missing) (missing) Result panel 6051 Parainfluenza virus 1 RNA [Presence] in Nasopharynx by TAMMI with non-probe detection 2025-05-10 11:05:07 [facility] Not detected (missing) (missing) Result panel 6052 Parainfluenza virus 2 RNA [Presence] in Nasopharynx by TAMMI with non-probe detection 2025-05-10 11:05:07 [facility] Not detected (missing) (missing) Result panel 6053 Parainfluenza virus 3 RNA [Presence] in Nasopharynx by TAMMI with non-probe detection 2025-05-10 11:05:07 [facility] Not detected (missing) (missing) Result panel 6054 Parainfluenza virus 4 RNA [Presence] in Nasopharynx by TAMMI with non-probe detection 2025-05-10 11:05:07 [facility] Not detected (missing) (missing) Result panel 6055 Respiratory syncytial virus RNA [Presence] in Nasopharynx by TAMMI with non-probe detec 2025-05-10 11:05:07 [facility] Not detected (missing) (missing) Result panel 6056 Bordetella pertussis.pertussis toxin promoter region [Presence] in Nasopharynx by TAMMI 2025-05-10 11:05:07 [facility] Not detected (missing) (missing) Result panel 6057 Chlamydophila pneumoniae DNA [Presence] in Nasopharynx by TAMMI with non-probe detectio 2025-05-10 11:05:07 [facility] Not detected (missing) (missing) Result panel 6058 Mycoplasma pneumoniae DNA [Presence] in Nasopharynx by TAMMI with non-probe detection 2025-05-10 11:05:07 [facility] Not detected (missing) (missing) Result panel 6059 Adenovirus DNA [Presence] in Nasopharynx by TAMMI with non-probe detection 2025-05-10 11:05:07 [facility] Not detected (missing) (missing) Result panel 6060 SARS-CoV-2 (COVID-19) RNA [Presence] in Nasopharynx by TAMMI with non-probe detection 2025-05-10 11:05:07 [facility] Not detected (missing) (missing) Result panel 6061 Human coronavirus 229E RNA [Presence] in Nasopharynx by TAMMI with non-probe detection 2025-05-10 11:05:07 [facility] Not detected (missing) (missing) Result panel 6062 Human coronavirus HKU1 RNA [Presence] in Nasopharynx by TAMMI with non-probe detection 2025-05-10 11:05:07 [facility] Not detected (missing) (missing) Result panel 6063 Human coronavirus NL63 RNA [Presence] in Nasopharynx by TAMMI with non-probe detection 2025-05-10 11:05:07 [facility] Not detected (missing) (missing) Result panel 6064 Human coronavirus OC43 RNA [Presence] in Nasopharynx by TAMMI with non-probe detection 2025-05-10 11:05:07 [facility] Not detected (missing) (missing) Result panel 6065 Human metapneumovirus RNA [Presence] in Nasopharynx by TAMMI with non-probe detection 2025-05-10 11:05:07 [facility] Not detected (missing) (missing) Result panel 6066 Rhinovirus+Enterovirus RNA [Presence] in Nasopharynx by TAMMI with non-probe detection 2025-05-10 11:05:07 [facility] Not detected (missing) (missing) Result panel 6067 Influenza virus A RNA [Presence] in Nasopharynx by TAMMI with non-probe detection 2025-05-10 11:05:07 [facility] Not detected (missing) (missing) Result panel 6068 Influenza virus B RNA [Presence] in Nasopharynx by TAMMI with non-probe detection 2025-05-10 11:05:07 [facility] Not detected (missing) (missing) Result panel 6069 Parainfluenza virus 1 RNA [Presence] in Nasopharynx by TAMMI with non-probe detection 2025-05-10 11:05:07 [facility] Not detected (missing) (missing) Result panel 6070 Parainfluenza virus 2 RNA [Presence] in Nasopharynx by TAMMI with non-probe detection 2025-05-10 11:05:07 [facility] Not detected (missing) (missing) Result panel 6071 Parainfluenza virus 3 RNA [Presence] in Nasopharynx by TAMMI with non-probe detection 2025-05-10 11:05:07 [facility] Not detected (missing) (missing) Result panel 6072 Parainfluenza virus 4 RNA [Presence] in Nasopharynx by TAMMI with non-probe detection 2025-05-10 11:05:07 [facility] Not detected (missing) (missing) Result panel 6073 Respiratory syncytial virus RNA [Presence] in Nasopharynx by TAMMI with non-probe detec 2025-05-10 11:05:07 [facility] Not detected (missing) (missing) Result panel 6074 Bordetella pertussis.pertussis toxin promoter region [Presence] in Nasopharynx by TAMMI 2025-05-10 11:05:07 [facility] Not detected (missing) (missing) Result panel 6075 Chlamydophila pneumoniae DNA [Presence] in Nasopharynx by TAMMI with non-probe detectio 2025-05-10 11:05:07 [facility] Not detected (missing) (missing) Result panel 6076 Mycoplasma pneumoniae DNA [Presence] in Nasopharynx by TAMMI with non-probe detection 2025-05-10 11:05:07 [facility] Not detected (missing) (missing) Result panel 6077 Adenovirus DNA [Presence] in Nasopharynx by TAMMI with non-probe detection 2025-05-10 11:05:07 [facility] Not detected (missing) (missing) Result panel 6078 SARS-CoV-2 (COVID-19) RNA [Presence] in Nasopharynx by TAMMI with non-probe detection 2025-05-10 11:05:07 [facility] Not detected (missing) (missing) Result panel 6079 Human coronavirus 229E RNA [Presence] in Nasopharynx by TAMMI with non-probe detection 2025-05-10 11:05:07 [facility] Not detected (missing) (missing) Result panel 6080 Human coronavirus HKU1 RNA [Presence] in Nasopharynx by TAMMI with non-probe detection 2025-05-10 11:05:07 [facility] Not detected (missing) (missing) Result panel 6081 Human coronavirus NL63 RNA [Presence] in Nasopharynx by TAMMI with non-probe detection 2025-05-10 11:05:07 [facility] Not detected (missing) (missing) Result panel 6082 Human coronavirus OC43 RNA [Presence] in Nasopharynx by TAMMI with non-probe detection 2025-05-10 11:05:07 [facility] Not detected (missing) (missing) Result panel 6083 Human metapneumovirus RNA [Presence] in Nasopharynx by TAMMI with non-probe detection 2025-05-10 11:05:07 [facility] Not detected (missing) (missing) Result panel 6084 Rhinovirus+Enterovirus RNA [Presence] in Nasopharynx by TAMMI with non-probe detection 2025-05-10 11:05:07 [facility] Not detected (missing) (missing) Result panel 6085 Influenza virus A RNA [Presence] in Nasopharynx by TAMMI with non-probe detection 2025-05-10 11:05:07 [facility] Not detected (missing) (missing) Result panel 6086 Influenza virus B RNA [Presence] in Nasopharynx by TAMMI with non-probe detection 2025-05-10 11:05:07 [facility] Not detected (missing) (missing) Result panel 6087 Parainfluenza virus 1 RNA [Presence] in Nasopharynx by TAMMI with non-probe detection 2025-05-10 11:05:07 [facility] Not detected (missing) (missing) Result panel 6088 Parainfluenza virus 2 RNA [Presence] in Nasopharynx by TAMMI with non-probe detection 2025-05-10 11:05:07 [facility] Not detected (missing) (missing) Result panel 6089 Parainfluenza virus 3 RNA [Presence] in Nasopharynx by TAMMI with non-probe detection 2025-05-10 11:05:07 [facility] Not detected (missing) (missing) Result panel 6090 Parainfluenza virus 4 RNA [Presence] in Nasopharynx by TAMMI with non-probe detection 2025-05-10 11:05:07 [facility] Not detected (missing) (missing) Result panel 6091 Respiratory syncytial virus RNA [Presence] in Nasopharynx by TAMMI with non-probe detec 2025-05-10 11:05:07 [facility] Not detected (missing) (missing) Result panel 6092 Bordetella pertussis.pertussis toxin promoter region [Presence] in Nasopharynx by TAMMI 2025-05-10 11:05:07 [facility] Not detected (missing) (missing) Result panel 6093 Chlamydophila pneumoniae DNA [Presence] in Nasopharynx by TAMMI with non-probe detectio 2025-05-10 11:05:07 [facility] Not detected (missing) (missing) Result panel 6094 Mycoplasma pneumoniae DNA [Presence] in Nasopharynx by TAMMI with non-probe detection 2025-05-10 11:05:07 [facility] Not detected (missing) (missing) Result panel 6095 Adenovirus DNA [Presence] in Nasopharynx by TAMMI with non-probe detection 2025-05-10 11:05:07 [facility] Not detected (missing) (missing) Result panel 6096 SARS-CoV-2 (COVID-19) RNA [Presence] in Nasopharynx by TAMMI with non-probe detection 2025-05-10 11:05:07 [facility] Not detected (missing) (missing) Result panel 6097 Human coronavirus 229E RNA [Presence] in Nasopharynx by TAMMI with non-probe detection 2025-05-10 11:05:07 [facility] Not detected (missing) (missing) Result panel 6098 Human coronavirus HKU1 RNA [Presence] in Nasopharynx by TAMMI with non-probe detection 2025-05-10 11:05:07 [facility] Not detected (missing) (missing) Result panel 6099 Human coronavirus NL63 RNA [Presence] in Nasopharynx by TAMMI with non-probe detection 2025-05-10 11:05:07 [facility] Not detected (missing) (missing) Result panel 6100 Human coronavirus OC43 RNA [Presence] in Nasopharynx by TAMMI with non-probe detection 2025-05-10 11:05:07 [facility] Not detected (missing) (missing) Result panel 6101 Human metapneumovirus RNA [Presence] in Nasopharynx by TAMMI with non-probe detection 2025-05-10 11:05:07 [facility] Not detected (missing) (missing) Result panel 6102 Rhinovirus+Enterovirus RNA [Presence] in Nasopharynx by TAMMI with non-probe detection 2025-05-10 11:05:07 [facility] Not detected (missing) (missing) Result panel 6103 Influenza virus A RNA [Presence] in Nasopharynx by TAMMI with non-probe detection 2025-05-10 11:05:07 [facility] Not detected (missing) (missing) Result panel 6104 Influenza virus B RNA [Presence] in Nasopharynx by TAMMI with non-probe detection 2025-05-10 11:05:07 [facility] Not detected (missing) (missing) Result panel 6105 Parainfluenza virus 1 RNA [Presence] in Nasopharynx by TAMMI with non-probe detection 2025-05-10 11:05:07 [facility] Not detected (missing) (missing) Result panel 6106 Parainfluenza virus 2 RNA [Presence] in Nasopharynx by TAMMI with non-probe detection 2025-05-10 11:05:07 [facility] Not detected (missing) (missing) Result panel 6107 Parainfluenza virus 3 RNA [Presence] in Nasopharynx by TAMMI with non-probe detection 2025-05-10 11:05:07 [facility] Not detected (missing) (missing) Result panel 6108 Parainfluenza virus 4 RNA [Presence] in Nasopharynx by TAMMI with non-probe detection 2025-05-10 11:05:07 [facility] Not detected (missing) (missing) Result panel 6109 Respiratory syncytial virus RNA [Presence] in Nasopharynx by TAMMI with non-probe detec 2025-05-10 11:05:07 [facility] Not detected (missing) (missing) Result panel 6110 Bordetella pertussis.pertussis toxin promoter region [Presence] in Nasopharynx by TAMMI 2025-05-10 11:05:07 [facility] Not detected (missing) (missing) Result panel 6111 Chlamydophila pneumoniae DNA [Presence] in Nasopharynx by TAMMI with non-probe detectio 2025-05-10 11:05:07 [facility] Not detected (missing) (missing) Result panel 6112 Mycoplasma pneumoniae DNA [Presence] in Nasopharynx by TAMMI with non-probe detection 2025-05-10 11:05:07 [facility] Not detected (missing) (missing) Result panel 6113 Lactate 2HR (Lactic Acid Rflx) 2025-05-10 11:39 [facility] 4.1 mmol/l (missing) Result panel 6114 POC Glucose 2025-05-10 11:59 [facility] 365 mg/dl (missing) Lactate 2HR (Lactic Acid Rflx) 2025-05-10 11:59 [facility] 4.1 mmol/l CRITICAL RESULT CALLED PERSON OR PLACE CONTACTED: LORENA CHAMPION WAS THE RESULT READ-BACK? YES DATE: 05/10/25 TIME: 1158 --- 05/10/25 1158 --- LACTATE 2HR RPT previously reported as: 4.1 *H mmol/L Result panel 6115 Adenovirus 2025-05-10 12:09 [facility] Not Detected (missing) (missing) B. parapertussis 2025-05-10 12:09 [facility] Not Detected (missing) (missing) Bordetella pertussis 2025-05-10 12:09 [facility] Not Detected (missing) (missing) Chlamydophila pneumoniae 2025-05-10 12:09 [facility] Not Detected (missing) (missing) Coronavirus 229E 2025-05-10 12:09 [facility] Not Detected (missing) (missing) Coronavirus HKU1 2025-05-10 12:09 [facility] Not Detected (missing) (missing) Coronavirus NL 63 2025-05-10 12:09 [facility] Not Detected (missing) (missing) Coronavirus OC43 2025-05-10 12:09 [facility] Not Detected (missing) (missing) Human Metapneumovirus 2025-05-10 12:09 [facility] Not Detected (missing) (missing) Human Rhinovirus/Enterovi bud 2025-05-10 12:09 [facility] Not Detected (missing) (missing) Influenza A 2025-05-10 12:09 [facility] Not Detected (missing) (missing) Influenza B 2025-05-10 12:09 [facility] Not Detected (missing) (missing) Mycoplasma pneumoniae 2025-05-10 12:09 [facility] Not Detected (missing) (missing) Parainfluenza Virus 1 2025-05-10 12:09 [facility] Not Detected (missing) (missing) Parainfluenza Virus 2 2025-05-10 12:09 [facility] Not Detected (missing) (missing) Parainfluenza Virus 3 2025-05-10 12:09 [facility] Not Detected (missing) (missing) Parainfluenza Virus 4 2025-05-10 12:09 [facility] Not Detected (missing) (missing) Respiratory Syncytial Virus 2025-05-10 12:09 [facility] Not Detected (missing) (missing) SARS- CoV-2 2025-05-10 12:09 [facility] Not Detected (missing) The [employer] SARS-CoV-2 test is a rapid, real-time RT-PCR [...] observations, patient history, and epidemiological information. The [employer] SARS-CoV-2 test is only for use under the Food and Drug Administrations Emergency Use Authorization. Result panel 6116 Troponin I 2025-05-10 14:04 [facility] < 0.012 ng/ml Ortho Troponin-I Recommended Upper Reference Range & Cutoff The 99th Percentile URL: 0.034 ng/mL [facility] Diagnostic Cutoff: 0.120 ng/mL Result panel 6117 Troponin I.cardiac [Mass/volume] in Serum or Plasma 2025-05-10 15:18:08 [facility] < 0.012 ng/mL (missing) (missing) Result panel 6118 Lactate [Mass/volume] in Serum or Plasma 2025-05-10 15:18:08 [facility] 1.9 mmol/L ( issing) Result panel 6119 Troponin I.cardiac [Mass/volume] in Serum or Plasma 2025-05-10 15:18:08 [facility] < 0.012 ng/mL (missing) (missing) Result panel 6120 Lactate [Mass/volume] in Serum or Plasma 2025-05-10 15:18:08 [facility] 1.9 mmol/L ( issing) Result panel 6121 Emergency department note 2025-05-10 16:18 [facility] (missing) (missing) (missing ) Result panel 6122 Troponin I.cardiac [Mass/volume] in Serum or Plasma 2025-05-10 16:18:07 [facility] < 0.012 ng/mL (missing) (missing) Result panel 6123 Lactate [Mass/volume] in Serum or Plasma 2025-05-10 16:18:07 [facility] Result panel 6124 Troponin I.cardiac [Mass/volume] in Serum or Plasma 2025-05-10 16:18:07 [facility] < 0.012 ng/mL (missing) (missing) Result panel 6125 Lactate [Mass/volume] in Serum or Plasma 2025-05-10 16:18:07 [facility] 1.9 mmol/L [facility] Result panel 6126 Troponin I.cardiac [Mass/volume] in Serum or Plasma 2025-05-10 16:18:07 [facility] < 0.012 ng/mL (missing) (missing) Result panel 6127 Lactate [Mass/volume] in Serum or Plasma 2025-05-10 16:18:07 [facility] 1.9 mmol/L ( issing) Result panel 6128 Troponin I.cardiac [Mass/volume] in Serum or Plasma 2025-05-10 16:18:07 [facility] < 0.012 ng/mL (missing) (missing) Result panel 6129 Lactate [Mass/volume] in Serum or Plasma 2025-05-10 16:18:07 [facility] 1.9 mmol/L ( issing) Result panel 6130 Troponin I.cardiac [Mass/volume] in Serum or Plasma 2025-05-10 16:18:07 [facility] < 0.012 ng/mL (missing) (missing) Result panel 6131 Lactate [Mass/volume] in Serum or Plasma 2025-05-10 16:18:07 [facility] 1.9 mmol/L ( issing) Result panel 6132 Troponin I.cardiac [Mass/volume] in Serum or Plasma 2025-05-10 16:18:07 [facility] < 0.012 ng/mL (missing) (missing) Result panel 6133 Lactate [Mass/volume] in Serum or Plasma 2025-05-10 16:18:07 [facility] 1.9 mmol/L ( issing) Result panel 6134 Troponin I.cardiac [Mass/volume] in Serum or Plasma 2025-05-10 16:18:07 [facility] < 0.012 ng/mL (missing) (missing) Result panel 6135 Lactate [Mass/volume] in Serum or Plasma 2025-05-10 16:18:07 [facility] 1.9 mmol/L [facility] Result panel 6136 Troponin I.cardiac [Mass/volume] in Serum or Plasma 2025-05-10 16:18:07 [facility] < 0.012 ng/mL (missing) (missing) Result panel 6137 Lactate [Mass/volume] in Serum or Plasma 2025-05-10 16:18:07 [facility] 1.9 mmol/L ( issing) Result panel 6138 Lactate (Lactic Acid) 2025-05-10 16:40 [facility] 1.9 mmol/l Yes/No query for Sepsis Lactate Rule Y Result panel 6139 POC Glucose 2025-05-10 16:51 [facility] 332 mg/dl (missing) Result panel 6140 Troponin I 2025-05-10 18:41 [facility] < 0.012 ng/ml Comment Add to last lab draw (from lactate if possible) Ortho Troponin-I Recommended Upper Reference Range & Cutoff The 99th Percentile URL: 0.034 ng/mL [facility] Diagnostic Cutoff: 0.120 ng/mL Result panel 6141 POC Glucose 2025-05-10 19:42 [facility] 347 mg/dl (missing) Result panel 6142 Blood Culture 2025-05-11 03:26 [facility] (missing) (mi ssing) (missing) Blood Culture 2025-05-11 03:26 [facility] NO GROW TH AFTER 24 HOURS (missing) (missing) Result panel 6143 Blood Culture 2025-05-11 03:27 [facility] (missing) (mi ssing) (missing) Blood Culture 2025-05-11 03:27 [facility] NO GROW TH AFTER 24 HOURS (missing) (missing) Result panel 6144 Magnesium [Mass/volume] in Serum or Plasma 2025-05-11 04:49:08 [facility] 2.1 mg/dL ( issing) Result panel 6145 Magnesium [Mass/volume] in Serum or Plasma 2025-05-11 04:49:08 [facility] 2.1 mg/dL ( issing) Result panel 6146 Magnesium [Mass/volume] in Serum or Plasma 2025-05-11 05:49:07 [facility] 2.1 mg/dL ( issing) Result panel 6147 Magnesium [Mass/volume] in Serum or Plasma 2025-05-11 05:49:07 [facility] 2.1 mg/dL ( issing) Result panel 6148 Magnesium [Mass/volume] in Serum or Plasma 2025-05-11 05:49:07 [facility] 2.1 mg/dL ( issing) Result panel 6149 Magnesium [Mass/volume] in Serum or Plasma 2025-05-11 05:49:07 [facility] 2.1 mg/dL ( issing) Result panel 6150 Magnesium [Mass/volume] in Serum or Plasma 2025-05-11 05:49:07 [facility] 2.1 mg/dL ( issing) Result panel 6151 Magnesium [Mass/volume] in Serum or Plasma 2025-05-11 05:49:07 [facility] 2.1 mg/dL ( issing) Result panel 6152 Magnesium [Mass/volume] in Serum or Plasma 2025-05-11 05:49:07 [facility] 2.1 mg/dL ( issing) Result panel 6153 Magnesium [Mass/volume] in Serum or Plasma 2025-05-11 05:49:07 [facility] 2.1 mg/dL ( issing) Result panel 6154 Basophils Absolute Auto 2025-05-11 06:25 [facility] 0 /ul (missing) Eosinophils Absolute Auto 2025-05-11 06:25 [facility] 0 /ul (missing) Eosinophils Percent Auto 2025-05-11 06:25 [facility] 0. 0 % (missing) Basophils Percent Auto 2025-05-11 06:25 [facility] 0.2 % (missing) Monocytes Percent Auto 2025-05-11:25 [facility] 1.6 % (missing) Hemoglobin 2025-05-11 06:25 [facility] 11.7 g/dl (missing) Red Cell Distribution Width 2025-05-11 06:25 [facility] 14.1 % (missing) Neutrophils Absolute Auto 2025-05-11 06:25 [facility] 1 4300 /ul (missing) White Blood Cell Count 2025-05-11:25 [facility] 15.6 x10 3/ul (missing) Monocytes Absolute Auto 2025-05-11 06:25 [facility] 200 /ul (missing) Platelet Count 2025-05-11 06:25 [facility] 230 x1 0 3/ul (missing) Red Blood Cell Count 2025-05-11 06:25 [facility] 3.86 x10 6/ul (missing) Mean Corpuscular Hemoglobin 2025-05-11 06:25 [facility] 30.4 pg (missing) Mean Corpuscular HGB Conc 2025-05-11 06:25 [facility] 3 3.7 % (missing) Hematocrit 2025-05-11:25 [facility] 34.8 % (missing) Lymphocytes Percent Auto 2025-05-11:25 [facility] 6. 0 % (missing) Mean Corpuscular Volume 2025-05-11 06:25 [facility] 90. 3 fl (missing) Lymphocytes Absolute Auto 2025-05-11:25 [facility] 9 00 /ul (missing) Neutrophils Percent Auto 2025-05-11:25 [facility] 92 .2 % (missing) Result panel 6155 Estimated Glomerular Filt Rate 2025-05-11 06:41 [facility] > 60 ml/min Reported eGFR is based the CKD-EPI 2021 equation that does not use a race coefficient. An eGFR below 60 mL/min/1.73m2 suggests that some kidney damage has occurred, and indicative of chronic kidney disease if persisting greater than 3 months. An eGFR less than 15 is indicative of kidney failure. Creatinine 2025-05-11:41 [facility] 0.92 mg/dl (missing) Chloride 2025-05-11:41 [facility] 105 mmol/l (missing) Sodium 2025-05-11 06:41 [facility] 134 mmol/l (missing) Magnesium 2025-05-11 06:41 [facility] 2.1 mg/dl (missing) Carbon Dioxide 2025-05-11 06:41 [facility] 23 mm ol/l (missing) Blood Urea Nitrogen 2025-05-11 06:41 [facility] 29 mg/dl (missing ) BUN Creatinine Ratio 2025-05-11 06:41 [facility] 31.5 (missing) (missing ) Glucose 2025-05-11 06:41 [facility] 367 mg/dl (missing) Potassium 2025-05-11 06:41 [facility] 4.7 mmol/l (missing) Calcium 2025-05-11 06:41 [facility] 8.9 mg/dl (missing) Result panel 6156 POC Glucose 2025-05-11 07:42 [facility] 369 mg/dl (missing) Result panel 6157 POC Glucose 2025-05-11 11:45 [facility] 366 mg/dl (missing) Result panel 6158 POC Glucose 2025-05-11 16:47 [facility] 258 mg/dl Delta: 366 on 05/11/25-1133 Result panel 6159 POC Glucose 2025-05-11 19:37 [facility] 209 mg/dl (missing) Result panel 6160 Blood Culture 2025-05-12 03:26 [facility] (missing) (mi ssing) (missing) Blood Culture 2025-05-12 03:26 [facility] NO GROW TH AFTER 48 HOURS (missing) (missing) Result panel 6161 Basophils Absolute Auto 2025-05-12 06:13 [facility] 0 /ul (missing) Eosinophils Absolute Auto 2025-05-12 06:13 [facility] 0 /ul (missing) Eosinophils Percent Auto 2025-05-12 06:13 [facility] 0. 0 % (missing) Basophils Percent Auto 2025-05-12 06:13 [facility] 0.3 % (missing) Monocytes Percent Auto 2025-05-12 06:13 [facility] 1.6 % (missing) Hemoglobin 2025-05-12 06:13 [facility] 11.6 g/dl (missing) Neutrophils Absolute Auto 2025-05-12 06:13 [facility] 1 2000 /ul (missing) White Blood Cell Count 2025-05-12 06:13 [facility] 13.1 x10 3/ul (missing) Red Cell Distribution Width 2025-05-12 06:13 [facility] 14.1 % (missing) Monocytes Absolute Auto 2025-05-12 06:13 [facility] 200 /ul (missing) Platelet Count 2025-05-12 06:13 [facility] 242 x1 0 3/ul (missing) Red Blood Cell Count 2025-05-12 06:13 [facility] 3.82 x10 6/ul (missing) Mean Corpuscular Hemoglobin 2025-05-12 06:13 [facility] 30.4 pg (missing) Mean Corpuscular HGB Conc 2025-05-12 06:13 [facility] 3 3.8 % (missing) Hematocrit 2025-05-12 06:13 [facility] 34.3 % (missing) Lymphocytes Percent Auto 2025-05-12 06:[address] [place] [address] 7. 0 % (missing) Mean Corpuscular Volume 2025-05-12 06:[address] [place] [address] 89. 9 fl (missing) Lymphocytes Absolute Auto 2025-05-12 06:[address] [place] [address] 9 00 /ul (missing) Neutrophils Percent Auto 2025-05-12 06:[address] [place] [address] 91 .1 % (missing) Result panel 6162 Estimated Glomerular Filt Rate 2025-05-12 06:26 [facility] > 60 ml/min Reported eGFR is based the CKD-EPI 2020 equation that does not use a race coefficient. An eGFR below 60 mL/min/1.73m2 suggests that some kidney damage has occurred, and indicative of chronic kidney disease if persisting greater than 3 months. An eGFR less than 15 is indicative of kidney failure. Creatinine 2025-05-12 06:26 [facility] 0.93 mg/dl (missing) Chloride 2025-05-12 06:26 [facility] 104 mmol/l (missing) Sodium 2025-05-12 06: [facility] 134 mmol/l (missing) Carbon Dioxide 2025-05-12 06: [facility] 24 mm ol/l (missing) Glucose 2025-05-12: [facility] 332 mg/dl (missing) Blood Urea Nitrogen 2025-05-12 06: [facility] 35 mg/dl (missing ) BUN Creatinine Ratio 2025-05-12 06: [facility] 37.6 (missing) (missing ) Potassium 2025-05-12 06: [facility] 4.8 mmol/l (missing) Calcium 2025-05-12 06:26 [facility] 8.9 mg/dl (missing) Result panel 6163 POC Glucose 2025-05-12 07:43 [facility] 341 mg/dl Delta: 209 on 05/11/25-1933 Result panel 6164 POC Glucose 2025-05-12 12:45 [facility] 274 mg/dl (missing) Result panel 6165 POC Glucose 2025-05-12 16:29 [facility] 311 mg/dl (missing) Result panel 6166 POC Glucose 2025-05-12 20:12 [facility] 249 mg/dl (missing) Result panel 6167 Blood Culture 2025-05-13 03:26 [facility] (missing) (mi ssing) (missing) Blood Culture 2025-05-13 03:26 [facility] NO GROW TH AFTER 72 HOURS (missing) (missing) Result panel 6168 White blood cell count 2025-05-13 04:56:08 [facility] 9 .0 X10^3/uL (missing) Result panel 6169 Red blood cell count 2025-05-13 04:56:08 [facility] 3.9 4 X10^6/uL (missing) Result panel 6170 Hemoglobin 2025-05-13 04:56:08 [facility] 12.2 g/d L (missing) Result panel 6171 Hematocrit 2025-05-13 04:56:08 [facility] 35.3 % (missing) Result panel 6172 MCV (mean corpuscular volume ) determination 2025-05-13 04:56:08 [facility] 89.4 fL (mis sing) Result panel 6173 Mean corpuscular hemoglobin (MCH) determination 2025-05-13 04:56:08 [facility] 31.0 PG (missing) Result panel 6174 Mean corpuscular hemoglobin concentration (MCHC) determination 2025-05-13 04:56:08 [facility] 34.7 % (mis sing) Result panel 6175 Red cell distribution width determination 2025-05-13 04:56:08 [facility] 14.2 % (mis sing) Result panel 6176 Platelet count 2025-05-13 04:56:08 [facility] 231 X10^3/uL (missing) Result panel 6177 Automated neutrophil % 2025-05-13 04:56:08 [facility] 8 8.7 % (missing) Result panel 6178 Automated lymphocyte % 2025-05-13 04:56:08 [facility] 8 .9 % (missing) Result panel 6179 Automated monocyte % 2025-05-13 04:56:08 [facility] 2.1 % (missing) Result panel 6180 Automated eosinophil % 2025-05-13 04:56:08 [facility] 0 .0 % (missing) Result panel 6181 Automated basophil % 2025-05-13 04:56:[facility] [facility] (missing) Result panel 6182 Absolute neutrophil count 2025-05-13 04:56:08 [facility] l 8000 /uL (missing) Result panel 6183 Absolute lymphocyte count 2025-05-13 04:56:08 [facility] l 800 /uL (missing) Result panel 6184 Automated blood monocyte count 2025-05-13 04:56:08 [facility] spital 200 /uL (missing) Result panel 6185 [facility] 2025-05-13 [facility] Result panel 6186 Automated basophil count 2025-05-13 04:56:08 [facility] 0 /uL (missing) Result panel 6187 White blood cell count 2025-05-13 04:56:08 [facility] 9 .0 X10^3/uL (missing) Result panel 6188 Red blood cell count 2025-05-13 04:56:08 [facility] 3.9 4 X10^6/uL (missing) Result panel 6189 Hemoglobin 2025-05-13 04:56:08 [facility] 12.2 g/d L (missing) Result panel 6190 Hematocrit 2025-05-13 04:56:08 [facility] 35.3 % (missing) Result panel 6191 MCV (mean corpuscular volume ) determination 2025-05-13 04:56:08 [facility] 89.4 fL (mis sing) Result panel 6192 Mean corpuscular hemoglobin (MCH) determination 2025-05-13 04:56:08 [facility] 31.0 PG (missing) Result panel 6193 Mean corpuscular hemoglobin concentration (MCHC) determination 2025-05-13 04:56:08 [facility] 34.7 % (mis sing) Result panel 6194 Red cell distribution width determination 2025-05-13 04:56:08 [facility] 14.2 % (mis sing) Result panel 6195 Platelet count 2025-05-13 04:56:08 [facility] 231 X10^3/uL (missing) Result panel 6196 Automated neutrophil % 2025-05-13 04:56:08 [facility] 8 8.7 % (missing) Result panel 6197 Sodium [Moles/volume] in Serum or Plasma 2025-05-13 04:56:08 [facility] 131 mmol/L ([facility]) Result panel 6198 Automated lymphocyte % 2025-05-13 04:56:08 [facility] 8 .9 % (missing) Result panel 6199 Automated monocyte % 2025-05-13 04:56:08 [facility] 2.1 % (missing) Result panel 6200 Automated eosinophil % 2025-05-13 04:56:08 [facility] 0 .0 % (missing) Result panel 6201 Automated basophil % 2025-05-13 04:56:08 [facility] 0.3 % (missing) Result panel 6202 Absolute neutrophil count 2025-05-13 04:56:08 [facility] l 8000 /uL (missing) Result panel 6203 Absolute lymphocyte count 2025-05-13 [facility] Result panel 6204 Automated blood monocyte count 2025-05-13 04:56:08 [facility] spital 200 /uL (missing) Result panel 6205 Automated eosinophil count 2025-05-13 [facility] Result panel 6206 Automated basophil count 2025-05-13 04:56:08 [facility] 0 /uL (missing) Result panel 6207 Sodium [Moles/volume] in Serum or Plasma 2025-05-13 04:56:08 [facility] 131 mmol/L ([facility]) Result panel 6208 Potassium [Moles/volume] in Serum or Plasma 2025-05-13 04:56:08 [facility] 4.7 mmol/L ([facility]) Result panel 6209 Potassium [Moles/volume] in Serum or Plasma 2025-05-13 04:56:08 [facility] 4.7 mmol/L ([facility]) Result panel 6210 Chloride [Moles/volume] in Serum or Plasma 2025-05-13 04:56:08 [facility] 100 mmol/L ([facility]) Result panel 6211 Carbon dioxide, total [Moles/volume] in Serum or Plasma 2025-05-13 04:56:08 [facility] 23 mmol/L ([facility]) Result panel 6212 Urea nitrogen [Mass/volume] in Serum or Plasma 2025-05-13 04:56:08 [facility] 37 mg/dL ([facility]) Result panel 6213 Creatinine [Mass/volume] in Serum or Plasma 2025-05-13 04:56:08 [facility] Result panel 6214 Glomerular filtration rate (GFR) estimation 2025-05-13 04:56:08 [facility] 57 mL/min ( missing) Result panel 6215 BUN/creatinine ratio 2025-05-13 04:56:08 [facility] 36. 3 (missing) (missing) Result panel 6216 Glucose [Mass/volume] in Serum or Plasma 2025-05-13 04:56:08 [facility] 422 mg/dL ([facility]) Result panel 6217 Calcium [Mass/volume] in Serum or Plasma 2025-05-13 04:56:08 [facility] 8.6 mg/dL ([facility]) Result panel 6218 Chloride [Moles/volume] in Serum or Plasma 2025-05-13 04:56:08 [facility] 100 mmol/L ([facility]) Result panel 6219 Carbon dioxide, total [Moles/volume] in Serum or Plasma 2025-05-13 04:56:08 [facility] 23 mmol/L ([facility]) Result panel 6220 Urea nitrogen [Mass/volume] in Serum or Plasma 2025-05-13 04:56:08 [facility] 37 mg/dL ([facility]) Result panel 6221 Creatinine [Mass/volume] in Serum or Plasma 2025-05-13 04:56:08 [facility] 1.02 mg/dL ([facility]) Result panel 6222 Glomerular filtration rate (GFR) estimation 2025-05-13 04:56:08 [facility] 57 mL/min ( missing) Result panel 6223 BUN/creatinine ratio 2025-05-13 04:56:08 [facility] 36. 3 (missing) (missing) Result panel 6224 Glucose [Mass/volume] in Serum or Plasma 2025-05-13 04:56:08 [facility] 422 [facility] Result panel 6225 Calcium [Mass/volume] in Serum or Plasma 2025-05-13 04:56:08 [facility] 8.6 mg/dL (m [facility]) Result panel 6226 White blood cell count 2025-05-13 05:56:07 [facility] 9 .0 X10^3/uL (missing) Result panel 6227 Red blood cell count 2025-05-13 05:56:07 [facility] 3.9 4 X10^6/uL (missing) Result panel 6228 Hemoglobin 2025-05-13 05:56:07 [facility] 12.2 g/d L (missing) Result panel 6229 Hematocrit 2025-05-13 05:56:07 [facility] 35.3 % (missing) Result panel 6230 MCV (mean corpuscular volume ) determination 2025-05-13 05:56:07 [facility] 89.4 fL (mis sing) Result panel 6231 Mean corpuscular hemoglobin (MCH) determination 2025-05-13 05:56:07 [facility] 31.0 PG (missing) Result panel 6232 Mean corpuscular hemoglobin concentration (MCHC) determination 2025-05-13 05:56:07 [facility] 34.7 % (mis sing) Result panel 6233 Red cell distribution width determination 2025-05-13 05:56:07 [facility] 14.2 % (mis sing) Result panel 6234 Platelet count 2025-05-13 05:56:07 [facility] 231 X10^3/uL (missing) Result panel 6235 Automated neutrophil % 2025-05-13 05:56:07 [facility] 8 8.7 % (missing) Result panel 6236 Automated lymphocyte % 2025-05-13 05:56:07 [facility] 8 .9 % (missing) Result panel 6237 Automated monocyte % 2025-05-13 05:56:07 [facility] 2.1 % (missing) Result panel 6238 Automated eosinophil % 2025-05-13 05:56:07 [facility] 0 .0 % (missing) Result panel 6239 Automated basophil % 2025-05-13 05:56:07 [facility] 0.3 % (missing) Result panel 6240 Absolute neutrophil count 2025-05-13 05:56:07 [facility] l 8000 /uL (missing) Result panel 6241 Absolute lymphocyte count 2025-05-13 05:56:07 [facility] l 800 /uL (missing) Result panel 6242 Automated blood monocyte count 2025-05-13 05:56:07 [facility] spital 200 /uL (missing) Result panel 6243 Automated eosinophil count 2025-05-13 05:56:07 [facility] 0 /uL (missing) Result panel 6244 Automated basophil count 2025-05-13 05:56:07 [facility] 0 /uL (missing) Result panel 6245 Sodium [Moles/volume] in Serum or Plasma 2025-05-13 05:56:07 [facility] 131 mmol/L ([facility]) Result panel 6246 Potassium [Moles/volume] in Serum or Plasma 2025-05-13 05:56:07 [facility] 4.7 mmol/L ([facility]) Result panel 6247 Chloride [Moles/volume] in Serum or Plasma 2025-05-13 05:56:07 [facility] 100 mmol/L ([facility]) Result panel 6248 Carbon dioxide, total [Moles/volume] in Serum or Plasma 2025-05-13 05:56:07 [facility] 23 mmol/L ([facility]) Result panel 6249 Urea nitrogen [Mass/volume] in Serum or Plasma 2025-05-13 05:56:07 [facility] 37 mg/dL ([facility]) Result panel 6250 Creatinine [Mass/volume] in Serum or Plasma 2025-05-13 05:56:07 [facility] 1.02 mg/dL ([facility]) Result panel 6251 Glomerular filtration rate (GFR) estimation 2025-05-13 05:56:07 [facility] 57 mL/min ( missing) Result panel 6252 BUN/creatinine ratio 2025-05-13 05:56:07 [facility] 36. 3 (missing) (missing) Result panel 6253 Glucose [Mass/volume] in Serum or Plasma 2025-05-13 05:56:07 [facility] 422 mg/dL ([facility]) Result panel 6254 Calcium [Mass/volume] in Serum or Plasma 2025-05-13 05:56:07 [facility] 8.6 mg/dL ([facility]) Result panel 6255 White blood cell count 2025-05-13 05:56:07 [facility] 9 .0 X10^3/uL (missing) Result panel 6256 Red blood cell count 2025-05-13 05:56:07 [facility] 3.9 4 X10^6/uL (missing) Result panel 6257 Hemoglobin 2025-05-13 05:56:07 [facility] 12.2 g/d L (missing) Result panel 6258 Hematocrit 2025-05-13 05:56:07 [facility] 35.3 % (missing) Result panel 6259 MCV (mean corpuscular volume ) determination 2025-05-13 05:56:07 [facility] 89.4 fL (mis sing) Result panel 6260 Mean corpuscular hemoglobin (MCH) determination 2025-05-13 05:56:07 [facility] 31.0 PG (missing) Result panel 6261 Mean corpuscular hemoglobin concentration (MCHC) determination 2025-05-13 05:56:07 [facility] 34.7 % (mis sing) Result panel 6262 Red cell distribution width determination 2025-05-13 05:56:07 [facility] 14.2 % (mis sing) Result panel 6263 Platelet count 2025-05-13 05:56:07 [facility] 231 X10^3/uL (missing) Result panel 6264 Automated neutrophil % 2025-05-13 05:56:07 [facility] 8 8.7 % (missing) Result panel 6265 Automated lymphocyte % 2025-05-13 05:56:07 [facility] 8 .9 % (missing) Result panel 6266 Automated monocyte % 2025-05-13 05:56:07 [facility] 2.1 % (missing) Result panel 6267 Automated eosinophil % 2025-05-13 05:56:07 [facility] 0 .0 % (missing) Result panel 6268 Automated basophil % 2025-05-13 05:56:07 [facility] 0.3 % (missing) Result panel 6269 Absolute neutrophil count 2025-05-13 05:56:07 [facility] l 8000 /uL (missing) Result panel 6270 Absolute lymphocyte count 2025-05-13 [facility] Result panel 6271 Automated blood monocyte count 2025-05-13 05:56:07 [facility] spital 200 /uL (missing) Result panel 6272 Automated eosinophil count 2025-05-13 [facility] Result panel 6273 Automated basophil count 2025-05-13 05:56:07 [facility] 0 /uL (missing) Result panel 6274 Sodium [Moles/volume] in Serum or Plasma 2025-05-13 05:56:07 [facility] 131 mmol/L ([facility]) Result panel 6275 Potassium [Moles/volume] in Serum or Plasma 2025-05-13 05:56:07 [facility] 4.7 mmol/L ([facility]) Result panel 6276 Chloride [Moles/volume] in Serum or Plasma 2025-05-13 05:56:07 [facility] 100 mmol/L ([facility]) Result panel 6277 Carbon dioxide, total [Moles/volume] in Serum or Plasma 2025-05-13 05:56:07 [facility] 23 mmol/L ([facility]) Result panel 6278 Urea nitrogen [Mass/volume] in Serum or Plasma 2025-05-13 05:56:07 [facility] 37 mg/dL ([facility]) Result panel 6279 Creatinine [Mass/volume] in Serum or Plasma 2025-05-13 05:56:07 [facility] 1.02 mg/dL ([facility]) Result panel 6280 Glomerular filtration rate (GFR) estimation 2025-05-13 05:56:07 [facility] 57 mL/min ( missing) Result panel 6281 BUN/creatinine ratio 2025-05-13 05:56:07 [facility] 36. 3 (missing) (missing) Result panel 6282 Glucose [Mass/volume] in Serum or Plasma 2025-05-13 05:56:07 [facility] 422 mg/dL ([facility]) Result panel 6283 Calcium [Mass/volume] in Serum or Plasma 2025-05-13 05:56:07 [facility] 8.6 mg/dL ([facility]) Result panel 6284 White blood cell count 2025-05-13 05:56:07 [facility] 9 .0 X10^3/uL (missing) Result panel 6285 Red blood cell count 2025-05-13 05:56:07 [facility] 3.9 4 X10^6/uL (missing) Result panel 6286 Hemoglobin 2025-05-13 05:56:07 [facility] 12.2 g/d L (missing) Result panel 6287 Hematocrit 2025-05-13 05:56:07 [facility] 35.3 % (missing) Result panel 6288 MCV (mean corpuscular volume ) determination 2025-05-13 05:56:07 [facility] 89.4 fL (mis sing) Result panel 6289 Mean corpuscular hemoglobin (MCH) determination 2025-05-13 05:56:07 [facility] 31.0 PG (missing) Result panel 6290 Mean corpuscular hemoglobin concentration (MCHC) determination 2025-05-13 05:56:07 [facility] 34.7 % (mis sing) Result panel 6291 Red cell distribution width determination 2025-05-13 05:56:07 [facility] 14.2 % (mis sing) Result panel 6292 Platelet count 2025-05-13 05:56:07 [facility] 231 X10^3/uL (missing) Result panel 6293 Automated neutrophil % 2025-05-13 05:56:07 [facility] 8 8.7 % (missing) Result panel 6294 Automated lymphocyte % 2025-05-13 05:56:07 [facility] 8 .9 % (missing) Result panel 6295 Automated monocyte % 2025-05-13 05:56:07 [facility] 2.1 % (missing) Result panel 6296 Automated eosinophil % 2025-05-13 05:56:07 [facility] 0 .0 % (missing) Result panel 6297 White blood cell count 2025-05-13 05:56:07 [facility] 9 .0 X10^3/uL (missing) Result panel 6298 Red blood cell count 2025-05-13 05:56:07 [facility] 3.9 4 X10^6/uL (missing) Result panel 6299 Hemoglobin 2025-05-13 05:56:07 [facility] 12.2 g/d L (missing) Result panel 6300 Hematocrit 2025-05-13 05:56:07 [facility] 35.3 % (missing) Result panel 6301 MCV (mean corpuscular volume ) determination 2025-05-13 05:56:07 [facility] 89.4 fL (mis sing) Result panel 6302 Mean corpuscular hemoglobin (MCH) determination 2025-05-13 05:56:07 [facility] 31.0 PG (missing) Result panel 6303 Mean corpuscular hemoglobin concentration (MCHC) determination 2025-05-13 05:56:07 [facility] 34.7 % (mis sing) Result panel 6304 Red cell distribution width determination 2025-05-13 05:56:07 [facility] 14.2 % (mis sing) Result panel 6305 Platelet count 2025-05-13 05:56:07 [facility] 231 X10^3/uL (missing) Result panel 6306 Automated basophil % 2025-05-13 05:56:07 [facility] 0.3 % (missing) Result panel 6307 Automated neutrophil % 2025-05-13 05:56:07 [facility] 8 8.7 % (missing) Result panel 6308 Automated lymphocyte % 2025-05-13 05:56:07 [facility] 8 .9 % (missing) Result panel 6309 Automated monocyte % 2025-05-13 05:56:07 [facility] 2.1 % (missing) Result panel 6310 Automated eosinophil % 2025-05-13 05:56:07 [facility] 0 .0 % (missing) Result panel 6311 Automated basophil % 2025-05-13 05:56:07 [facility] 0.3 % (missing) Result panel 6312 Absolute neutrophil count 2025-05-13 [facility] Result panel 6313 Absolute lymphocyte count 2025-05-13 [facility] /[facility] ([facility] Result panel 6314 Automated blood monocyte count 2025-05-13 05:56:07 [facility] spital 200 /uL (missing) Result panel 6315 Automated eosinophil count 2025-05-13 [facility] Result panel 6316 Automated basophil count 2025-05-13 05:56:07 [facility] 0 /uL (missing) Result panel 6317 Absolute neutrophil count 2025-05-13 05:[facility] /[facility] ([facility] Result panel 6318 Sodium [Moles/volume] in Serum or Plasma 2025-05-13 05:56:07 [facility] 131 mmol/L ([facility]) Result panel 6319 Potassium [Moles/volume] in Serum or Plasma 2025-05-13 05:56:07 [facility] 4.7 mmol/L ([facility]) Result panel 6320 Chloride [Moles/volume] in Serum or Plasma 2025-05-13 05:56:07 [facility] 100 mmol/L ([facility]) Result panel 6321 Carbon dioxide, total [Moles/volume] in Serum or Plasma 2025-05-13 05:56:07 [facility] 23 [facility] Result panel 6322 Urea nitrogen [Mass/volume] in Serum or Plasma 2025-05-13 05:56:07 [facility] 37 mg/dL ([facility]) Result panel 6323 Creatinine [Mass/volume] in Serum or Plasma 2025-05-13 05:56:07 [facility] 1.02 mg/dL ([facility]) Result panel 6324 Glomerular filtration rate (GFR) estimation 2025-05-13 05:56:07 [facility] 57 mL/min ( missing) Result panel 6325 BUN/creatinine ratio 2025-05-13 05:56:07 [facility] 36. 3 (missing) (missing) Result panel 6326 Glucose [Mass/volume] in Serum or Plasma 2025-05-13 05:56:07 [facility] 422 mg/dL ([facility]) Result panel 6327 Calcium [Mass/volume] in Serum or Plasma 2025-05-13 05:56:07 [facility] 8.6 mg/dL ([facility]) Result panel 6328 Absolute lymphocyte count 2025-05-13 05:56:07 [facility] l 800 /uL (missing) Result panel 6329 White blood cell count 2025-05-13 05:56:07 [facility] 9 .0 X10^3/uL (missing) Result panel 6330 Red blood cell count 2025-05-13 05:56:07 [facility] 3.9 4 X10^6/uL (missing) Result panel 6331 Hemoglobin 2025-05-13 05:56:07 [facility] 12.2 g/d L (missing) Result panel 6332 Hematocrit 2025-05-13 05:56:07 [facility] 35.3 % (missing) Result panel 6333 MCV (mean corpuscular volume ) determination 2025-05-13 05:56:07 [facility] 89.4 fL (mis sing) Result panel 6334 Mean corpuscular hemoglobin (MCH) determination 2025-05-13 05:56:07 [facility] 31.0 PG (missing) Result panel 6335 Mean corpuscular hemoglobin concentration (MCHC) determination 2025-05-13 05:56:07 [facility] 34.7 % (mis sing) Result panel 6336 Red cell distribution width determination 2025-05-13 05:56:07 [facility] 14.2 % (mis sing) Result panel 6337 Platelet count 2025-05-13 05:56:07 [facility] 231 X10^3/uL (missing) Result panel 6338 Automated neutrophil % 2025-05-13 05:56:07 [facility] 8 8.7 % (missing) Result panel 6339 Automated blood monocyte count 2025-05-13 05:56:07 [facility] spital 200 /uL (missing) Result panel 6340 Automated lymphocyte % 2025-05-13 05:56:07 [facility] 8 .9 % (missing) Result panel 6341 Automated monocyte % 2025-05-13 05:56:07 [facility] 2.1 % (missing) Result panel 6342 Automated eosinophil % 2025-05-13 05:56:07 [facility] 0 .0 % (missing) Result panel 6343 Automated basophil % 2025-05-13 05:56:07 [facility] 0.3 % (missing) Result panel 6344 Absolute neutrophil count 2025-05-13 [facility] Result panel 6345 Absolute lymphocyte count 2025-05-13 [facility] /[facility] ([facility] Result panel 6346 Automated blood monocyte count 2025-05-13 05:56:07 [facility] sp[facility] 200 /uL (missing) Result panel 6347 Automated eosinophil count 2025-05-13 [facility] Result panel 6348 Automated basophil count 2025-05-13 05:56:07 [facility] 0 /uL (missing) Result panel 6349 Sodium [Moles/volume] in Serum or Plasma 2025-05-13 05:56:07 [facility] 131 mmol/L ( issing) Result panel 6350 Automated eosinophil count 2025-05-13 [facility] Result panel 6351 Potassium [Moles/volume] in Serum or Plasma 2025-05-13 05:56:07 [facility] 4.7 mmol/L ( issing) Result panel 6352 Chloride [Moles/volume] in Serum or Plasma 2025-05-13 05:56:07 [facility] 100 mmol/L ( issing) Result panel 6353 Carbon dioxide, total [Moles/volume] in Serum or Plasma 2025-05-13 05:56:07 [facility] 23 mmol/L ([facility]) Result panel 6354 Urea nitrogen [Mass/volume] in Serum or Plasma 2025-05-13 05:56:07 [facility] 37 mg/dL ([facility]) Result panel 6355 Creatinine [Mass/volume] in Serum or Plasma 2025-05-13 05:56:07 [facility] 1.02 mg/dL ([facility]) Result panel 6356 Glomerular filtration rate (GFR) estimation 2025-05-13 05:56:07 [facility] 57 mL/min ( missing) Result panel 6357 BUN/creatinine ratio 2025-05-13 05:56:07 [facility] 36. 3 (missing) (missing) Result panel 6358 Glucose [Mass/volume] in Serum or Plasma 2025-05-13 05:56:07 [facility] 422 mg/dL ([facility]) Result panel 6359 Calcium [Mass/volume] in Serum or Plasma 2025-05-13 05:56:07 [facility] 8.6 mg/dL ([facility]) Result panel 6360 Automated basophil count 2025-05-13 05:56:07 [facility] 0 /uL (missing) Result panel 6361 Sodium [Moles/volume] in Serum or Plasma 2025-05-13 05:56:07 [facility] 131 mmol/L ([facility]) Result panel 6362 Potassium [Moles/volume] in Serum or Plasma 2025-05-13 05:56:07 [facility] 4.7 mmol/L ([facility]) Result panel 6363 Chloride [Moles/volume] in Serum or Plasma 2025-05-13 05:56:07 [facility] 100 mmol/L ([facility]) Result panel 6364 Carbon dioxide, total [Moles/volume] in Serum or Plasma 2025-05-13 05:56:07 [facility] 23 mmol/L ([facility]) Result panel 6365 Urea nitrogen [Mass/volume] in Serum or Plasma 2025-05-13 05:56:07 [facility] 37 mg/dL ([facility]) Result panel 6366 Creatinine [Mass/volume] in Serum or Plasma 2025-05-13 05:56:07 [facility] 1.02 mg/dL ([facility]) Result panel 6367 Glomerular filtration rate (GFR) estimation 2025-05-13 05:56:07 [facility] 57 mL/min ( missing) Result panel 6368 BUN/creatinine ratio 2025-05-13 05:56:07 [facility] 36. 3 (missing) (missing) Result panel 6369 Glucose [Mass/volume] in Serum or Plasma 2025-05-13 05:56:07 [facility] 422 mg/dL ([facility]) Result panel 6370 Calcium [Mass/volume] in Serum or Plasma 2025-05-13 05:56:07 [facility] 8.6 mg/dL ([facility]) Result panel 6371 White blood cell count 2025-05-13 05:56:07 [facility] 9 .0 X10^3/uL (missing) Result panel 6372 Red blood cell count 2025-05-13 05:56:07 [facility] 3.9 4 X10^6/uL (missing) Result panel 6373 Hemoglobin 2025-05-13 05:56:07 [facility] 12.2 g/d L (missing) Result panel 6374 Hematocrit 2025-05-13 05:56:07 [facility] 35.3 % (missing) Result panel 6375 MCV (mean corpuscular volume ) determination 2025-05-13 05:56:07 [facility] 89.4 fL (mis sing) Result panel 6376 Mean corpuscular hemoglobin (MCH) determination 2025-05-13 05:56:07 [facility] 31.0 PG (missing) Result panel 6377 Mean corpuscular hemoglobin concentration (MCHC) determination 2025-05-13 05:56:07 [facility] 34.7 % (mis sing) Result panel 6378 Red cell distribution width determination 2025-05-13 05:56:07 [facility] 14.2 % (mis sing) Result panel 6379 Platelet count 2025-05-13 05:56:07 [facility] 231 X10^3/uL (missing) Result panel 6380 Automated neutrophil % 2025-05-13 05:56:07 [facility] 8 8.7 % (missing) Result panel 6381 Automated lymphocyte % 2025-05-13 05:56:07 [facility] 8 .9 % (missing) Result panel 6382 Automated monocyte % 2025-05-13 05:56:07 [facility] 2.1 % (missing) Result panel 6383 Automated eosinophil % 2025-05-13 05:56:07 [facility] 0 .0 % (missing) Result panel 6384 Automated basophil % 2025-05-13 05:56:07 [facility] 0.3 % (missing) Result panel 6385 Absolute neutrophil count 2025-05-13 05:56:07 [facility] l 8000 /uL (missing) Result panel 6386 Absolute lymphocyte count 2025-05-13 05:56[facility]07 [facility] ([facility] Result panel 6387 Automated blood monocyte count 2025-05-13 05:56:07 [facility] spital 200 /uL (missing) Result panel 6388 Automated eosinophil count 2025-05-13 05:56[facility]07 [facility] Result panel 6389 Automated basophil count 2025-05-13 05:56:07 [facility] 0 /uL (missing) Result panel 6390 Sodium [Moles/volume] in Serum or Plasma 2025-05-13 05:56:07 [facility] 131 mmol/L ([facility]) Result panel 6391 Potassium [Moles/volume] in Serum or Plasma 2025-05-13 05:56:07 [facility] 4.7 mmol/L ([facility]) Result panel 6392 Chloride [Moles/volume] in Serum or Plasma 2025-05-13 05:56:07 [facility] 100 mmol/L ([facility]) Result panel 6393 Carbon dioxide, total [Moles/volume] in Serum or Plasma 2025-05-13 05:56:07 [facility] 23 mmol/L ([facility]) Result panel 6394 Urea nitrogen [Mass/volume] in Serum or Plasma 2025-05-13 05:56:07 [facility] 37 [facility] Result panel 6395 Creatinine [Mass/volume] in Serum or Plasma 2025-05-13 05:56:07 [facility] 1.02 mg/dL ([facility]) Result panel 6396 Glomerular filtration rate (GFR) estimation 2025-05-13 05:56:07 [facility] 57 mL/min ( missing) Result panel 6397 BUN/creatinine ratio 2025-05-13 05:56:07 [facility] 36. 3 (missing) (missing) Result panel 6398 Glucose [Mass/volume] in Serum or Plasma 2025-05-13 05:56:07 [facility] 422 mg/dL ([facility]) Result panel 6399 Calcium [Mass/volume] in Serum or Plasma 2025-05-13 05:56:07 [facility] 8.6 mg/dL ([facility]) Result panel 6400 White blood cell count 2025-05-13 05:56:07 [facility] 9 .0 X10^3/uL (missing) Result panel 6401 Red blood cell count 2025-05-13 05:56:07 [facility] 3.9 4 X10^6/uL (missing) Result panel 6402 Hemoglobin 2025-05-13 05:56:07 [facility] 12.2 g/d L (missing) Result panel 6403 Hematocrit 2025-05-13 05:56:07 [facility] 35.3 % (missing) Result panel 6404 MCV (mean corpuscular volume ) determination 2025-05-13 05:56:07 [facility] 89.4 fL (mis sing) Result panel 6405 Mean corpuscular hemoglobin (MCH) determination 2025-05-13 05:56:07 [facility] 31.0 PG (missing) Result panel 6406 Mean corpuscular hemoglobin concentration (MCHC) determination 2025-05-13 05:56:07 [facility] 34.7 % (mis sing) Result panel 6407 Red cell distribution width determination 2025-05-13 05:56:07 [facility] 14.2 % (mis sing) Result panel 6408 Platelet count 2025-05-13 05:56:07 [facility] 231 X10^3/uL (missing) Result panel 6409 Automated neutrophil % 2025-05-13 05:56:07 [facility] 8 8.7 % (missing) Result panel 6410 Automated lymphocyte % 2025-05-13 05:56:07 [facility] 8 .9 % (missing) Result panel 6411 Automated monocyte % 2025-05-13 05:56:07 [facility] 2.1 % (missing) Result panel 6412 Automated eosinophil % 2025-05-13 05:56:07 [facility] 0 .0 % (missing) Result panel 6413 Automated basophil % 2025-05-13 05:56:07 [facility] 0.3 % (missing) Result panel 6414 Absolute neutrophil count 2025-05-13 05:56[facility]07 [facility] /[facility] ([facility]) Result panel 6415 Absolute lymphocyte count 2025-05-13 05:56:07 [facility] 800 /uL (missing) Result panel 6416 Automated blood monocyte count 2025-05-13 05:56:07 [facility] spital 200 /uL (missing) Result panel 6417 Automated eosinophil count 2025-05-13 05:56[facility]07 [facility] Result panel 6418 Automated basophil count 2025-05-13 05:56:07 [facility] 0 /uL (missing) Result panel 6419 Sodium [Moles/volume] in Serum or Plasma 2025-05-13 05:56:07 [facility] 131 mmol/L ([facility]) Result panel 6420 Potassium [Moles/volume] in Serum or Plasma 2025-05-13 05:56:07 [facility] 4.7 mmol/L [facility] Result panel 6421 Chloride [Moles/volume] in Serum or Plasma 2025-05-13 05:56:07 [facility] 100 mmol/L ([facility]) Result panel 6422 Carbon dioxide, total [Moles/volume] in Serum or Plasma 2025-05-13 05:56:07 [facility] 23 [facility]L [facility] Result panel 6423 Urea nitrogen [Mass/volume] in Serum or Plasma 2025-05-13 05:56:07 [facility] 37 mg/dL [facility] Result panel 6424 Creatinine [Mass/volume] in Serum or Plasma 2025-05-13 05:56:07 [facility] 1.02 mg/dL ([facility]) Result panel 6425 Glomerular filtration rate (GFR) estimation 2025-05-13 05:56:07 [facility] 57 mL/min ( missing) Result panel 6426 BUN/creatinine ratio 2025-05-13 05:56:07 [facility] 36. 3 (missing) (missing) Result panel 6427 Glucose [Mass/volume] in Serum or Plasma 2025-05-13 05:56:07 [facility] 422 mg/dL [facility] Result panel 6428 Calcium [Mass/volume] in Serum or Plasma 2025-05-13 05:56:07 [facility] 8.6 mg/dL [facility] Result panel 6429 White blood cell count 2025-05-13 05:56:07 [facility] 9 .0 X10^3/uL (missing) Result panel 6430 Red blood cell count 2025-05-13 05:56:07 [facility] 3.9 4 X10^6/uL (missing) Result panel 6431 Hemoglobin 2025-05-13 05:56:07 [facility] 12.2 g/d L (missing) Result panel 6432 Hematocrit 2025-05-13 05:56:07 [facility] 35.3 % (missing) Result panel 6433 MCV (mean corpuscular volume ) determination 2025-05-13 05:56:07 [facility] 89.4 fL (mis sing) Result panel 6434 Mean corpuscular hemoglobin (MCH) determination 2025-05-13 05:56:07 [facility] 31.0 PG (missing) Result panel 6435 Mean corpuscular hemoglobin concentration (MCHC) determination 2025-05-13 05:56:07 [facility] 34.7 % (mis sing) Result panel 6436 Red cell distribution width determination 2025-05-13 05:56:07 [facility] 14.2 % (mis sing) Result panel 6437 Platelet count 2025-05-13 05:56:07 [facility] 231 X10^3/uL (missing) Result panel 6438 Automated neutrophil % 2025-05-13 05:56:07 [facility] 8 8.7 % (missing) Result panel 6439 Automated lymphocyte % 2025-05-13 05:56:07 [facility] 8 .9 % (missing) Result panel 6440 Automated monocyte % 2025-05-13 05:56:07 [facility] 2.1 % (missing) Result panel 6441 Automated eosinophil % 2025-05-13 05:56:07 [facility] 0 .0 % (missing) Result panel 6442 Automated basophil % 2025-05-13 05:56:07 [facility] 0.3 % (missing) Result panel 6443 Absolute neutrophil count 2025-05-13 05:56[facility]07 [facility] /[facility] ([facility] Result panel 6444 Absolute lymphocyte count 2025-05-13 05:56:07 [facility] 800 /uL (missing) Result panel 6445 Automated blood monocyte count 2025-05-13 05:56:07 [facility] spital 200 /uL (missing) Result panel 6446 Automated eosinophil count 2025-05-13 05:56:[facility] 0 /uL (missing) Result panel 6447 Automated basophil count 2025-05-13 05:56:07 [facility] 0 /uL (missing) Result panel 6448 Sodium [Moles/volume] in Serum or Plasma 2025-05-13 05:56:07 [facility] 131 mmol/L ([facility]) Result panel 6449 Potassium [Moles/volume] in Serum or Plasma 2025-05-13 05:56:07 [facility] 4.7 mmol/L ([facility]) Result panel 6450 Chloride [Moles/volume] in Serum or Plasma 2025-05-13 05:56:07 [facility] 100 mmol/L ([facility]) Result panel 6451 Carbon dioxide, total [Moles/volume] in Serum or Plasma 2025-05-13 05:56:07 [facility] 23 mmol/L ([facility]) Result panel 6452 Urea nitrogen [Mass/volume] in Serum or Plasma 2025-05-13 05:56:07 [facility] 37 mg/dL ([facility]) Result panel 6453 Creatinine [Mass/volume] in Serum or Plasma 2025-05-13 05:56:07 [facility] 1.02 mg/dL ([facility]) Result panel 6454 Glomerular filtration rate (GFR) estimation 2025-05-13 05:56:07 [facility] 57 mL/min ( missing) Result panel 6455 BUN/creatinine ratio 2025-05-13 05:56:07 [facility] 36. 3 (missing) (missing) Result panel 6456 Glucose [Mass/volume] in Serum or Plasma 2025-05-13 05:56:07 [facility] 422 mg/dL ([facility]) Result panel 6457 Calcium [Mass/volume] in Serum or Plasma 2025-05-13 05:56:07 [facility] 8.6 mg/dL ([facility]) Result panel 6458 Basophils Absolute Auto 2025-05-13 06:32 [facility] 0 /ul (missing) Eosinophils Absolute Auto 2025-05-13 06:32 [facility] 0 /ul (missing) Eosinophils Percent Auto 2025-05-13 06:32 [facility] 0. 0 % (missing) Basophils Percent Auto 2025-05-13 06:32 [facility] 0.3 % (missing) Hemoglobin 2025-05-13 06:32 [facility] 12.2 g/dl (missing) Red Cell Distribution Width 2025-05-13 :[address] [place] [address] 14.2 % (missing) Monocytes Percent Auto 2025-05-13 :[address] [place] [address] 2.1 % (missing) Monocytes Absolute Auto 2025-05-13 :[address] [place] [address] 200 /ul (missing) Platelet Count 2025-05-13 06:[address] [place] [address] 231 x1 0 3/ul (missing) Red Blood Cell Count 2025-05-13 :[address] [place] [address] 3.94 x10 6/ul (missing) Mean Corpuscular Hemoglobin 2025-05-13 06:[address] [place] [address] 31.0 pg (missing) Mean Corpuscular HGB Conc 2025-05-13 06:[address] [place] [address] 3 4.7 % (missing) Hematocrit 2025-05-13 :[address] [place] [address] 35.3 % (missing) Lymphocytes Percent Auto 2025-05-13 :[address] [place] [address] 8. 9 % (missing) Lymphocytes Absolute Auto 2025-05-13 :[address] [place] [address] 8 00 /ul (missing) Neutrophils Absolute Auto 2025-05-13 :[address] [place] [address] 8 000 /ul (missing) Neutrophils Percent Auto 2025-05-13 :[address] [place] [address] 88 .7 % (missing) Mean Corpuscular Volume 2025-05-13 :[address] [place] [address] 89. 4 fl (missing) White Blood Cell Count 2025-05-13 :[address] [place] [address] 9.0 x10 3/ul (missing) Result panel 6459 Creatinine 2025-05-13 06:[address] [place] [address] 1.02 mg/dl (missing) Chloride 2025-05-13 06:43 [facility] 100 mmol/l (missing) Sodium 2025-05-13 06:43 [facility] 131 mmol/l (missing) Carbon Dioxide 2025-05-13 06:43 [facility] 23 mm ol/l (missing) BUN Creatinine Ratio 2025-05-13 06:[address] [place] [address] 36.3 (missing) (missing ) Blood Urea Nitrogen 2025-05-13 06:[address] [place] [address] 37 mg/dl (missing) Potassium 2025-05-13 06:43 [facility] 4.7 mmol/l (missing) Glucose 2025-05-13 06:[address] [place] [address] 422 mg/dl (missing) Estimated Glomerular Filt Rate 2025-05-13 06:43 [facility] 57 ml/min Reported eGFR is based the CKD-EPI 2020 equation that does not use a race coefficient. An eGFR below 60 mL/min/1.73m2 suggests that some kidney damage has occurred, and indicative of chronic kidney disease if persisting greater than 3 months. An eGFR less than 15 is indicative of kidney failure. Calcium 2025-05-13 06:43 [facility] 8.6 mg/dl (missing) Result panel 6460 POC Glucose 2025-05-13 07:36 [facility] 494 mg/dl Delta: 249 on 05/12/25-2010 Result panel 6461 POC Glucose 2025-05-13 11:08 [facility] 468 mg/dl (missing) Result panel 6462 Nuclear medicine report 2025-05-13 11:18 [facility] (missing) (missing) (missing ) Result panel 6463 POC Glucose 2025-05-13 16:53 [facility] 273 mg/dl Delta: 468 on 05/13/25-2 Result panel 6464 Blood Culture 2025-05-14 03:26 [facility] (missing) (mi ssing) (missing) Blood Culture 2025-05-14 03:26 [facility] NO GROW TH AFTER 4 DAYS (missing) (missing) Result panel 6465 Blood Culture 2025-05-15 03:26 [facility] (missing) (mi ssing) (missing) Blood Culture 2025-05-15 03:26 [facility] NO GROW TH AFTER 5 DAYS (missing) (missing) Result panel 6466 Gross description: 2025-05-18 00:00 [facility] (missing) (missing) 30 CC, RED, HAZY Recieved in cytolyt container. Recieved 5 alcohol fixed slides in two green cap coffins. Recieved 5 stained slides in two coffins. 1 RNA vial. Expiration: Sep 04, 2026 NAHID GONZALEZ 05/18/2025 1247 Local Gross description: 2025-05-18 00:00 [facility] (missing) (missing) 30 CC, RED, HAZY Recieved in cytolyt container. Recieved 6 alcohol fixed slides in two green cap coffins. Recieved 6 stained slides in two coffins. 1 RNA vial. Expiration: Aug. NAHID GONZALEZ 05/18/2025 1244 Local Performed by: 2025-05-18 00:00 [facility] (missing) (missing) Vlad Goldberg, Retail Seasonal Specialist ([facility]) Pathologist provided ICD10: 2025-05-18 00:00 [facility] (missing) (missing) E04.2 Signed out by: 2025-05-18 00:00 [facility] (missing) (missing) Millicent Chang MD, Pathologist NPI- [id number] Source: 2025-05-18 00:00 [facility] (missing) (missing) RIGHT INFERIOR NODUL DIAGNOSIS: 2025-05-18 00:00 [facility] (missing) (missing) RIGHT INFERIOR NODULE, FINE NEEDLE [...] SIGNIFICANTLY INCREASES IN SIZE. Source: 2025-05-18 00:00 [facility] (missing) (missing) RIGHT SUPERIOR 1 DIAGNOSIS: 2025-05-18 00:00 [facility] (missing) (missing) RIGHT SUPERIOR THYROID NODULE, 1, [...] FOR FURTHER EVALUATION. Performed by: 2025-05-18 00:00 [facility] (missing) (missing) Gurdeep Hodge, Retail Seasonal Specialist ([facility]) Result panel 6467 Free T3, Triiodothyronine Free 2025-06-26 12:55 [facility] [place] 2.91 pg/ml (missing) Result panel 6468 TSH w/ Reflex to FT4 2025-06-26 13:08 [facility] 0.37 uiu/ml (missing) Free T3, Triiodothyronine Free 2025-06-26 13:08 [facility] [place] 2.91 pg/ml (missing) Result panel 6469 TSH w/ Reflex to FT4 2025-06-26 13:43 [facility] 0.37 uiu/ml (missing) Free T4, Direct Thyroxine 2025-06-26 13:43 [facility] 1 .38 ng/dl (missing) Free T3, Triiodothyronine Free 2025-06-26 13:43 [facility] 2.91 pg/ml (missing) Result panel 6470 NUCLEATED RED BLOOD CELLS AUTO 2025-07-06 04:52 [facility] 0.0 /100wbc (missing) BASOPHILS # (AUTO) 2025-07-06 04:52 [facility] 0.0 10 3/ul (missing) EOSINOPHILS # (AUTO) 2025-07-06 04:[address] [place] [address] 0.0 10 3/ul (missing) NRBC ABSOLUTE COUNT (AUTO) 2025-07-06 04:52 [facility] 0.00 x10 3/ul (missing) LYMPHOCYTES # (AUTO) 2025-07-06 04:52 [facility] 0.4 10 3/ul (missing) MONOCYTES # (AUTO) 2025-07-06 04:52 [facility] 0.7 10 3/ul (missing) BILIRUBIN,TOTAL 2025-07-06 04:52 [facility] 0.9 mg/dl As of February 2023 testing method has changed, this may include reference ranges. ALBUMIN/GLOBULIN RATIO 2025-07-06 04:52 [facility] 1.1 (missing) (missing) LACTIC ACID, VENOUS 2025-07-06 04:52 [facility] 1.5 mmol/l Y As of February 2023 testing method has changed, this may include reference ranges. CREATININE 2025-07-06 04:[address] [place] [address] 1.9 mg/dl As of February 2023 testing method has changed, this may include reference ranges. MEAN PLATELET VOLUME 2025-07-06 04:52 [facility] 10.9 fl (missing) CHLORIDE 2025-07-06 04:[address] [place] [address] 101 mmol/l As of February 2023 testing method has changed, this may include reference ranges. NEUTROPHILS # (AUTO) 2025-07-06 04:[address] [place] [address] 12.7 10 3/ul (missing) HGB - HEMOGLOBIN 2025-07-06 04:[address] [place] [address] 12.7 g/dl (missing) RED CELL DISTRIBUTION WIDTH 2025-07-06 04:52 [facility] 13.7 % (missing) WHITE BLOOD COUNT 2025-07-06 04:[address] [place] [address] 13.9 x10 3/ul (missing) SODIUM 2025-07-06 04:[address] [place] [address] 133 mmol/l (missing) ANION GAP 2025-07-06 04:[address] [place] [address] 14.0 (missing) (missing) ALT ALANINE AMINOTRANSFERASE 2025-07-06 04:[address] [place] [address] 15 iu/l As of February 2023 testing method has changed, this may include reference ranges. PLT - PLATELET COUNT 2025-07-06 04:[address] [place] [address] 170 10 3/ul (missing) CARBON DIOXIDE - CO2 2025-07-06 04:[address] [place] [address] 18 mmol/l As of February 2023 testing method has changed, this may include reference ranges. AST ASPARTATE AMINOTRANSFERASE 2025-07-06 04:[address] [place] [address] 20 iu/l As of February 2023 testing method has changed, this may include reference ranges. GFR - MDRD 2025-07-06 04:[address] [place] [address] 26 (missing) The IDMS-traceable MDRD Study Equation [...] ardization, last updated October 2011. GLUCOSE 2025-07-06 04:[address] [place] [address] 299 mg/dl As of February 2023 testing method has changed, this may include reference ranges. GLOBULIN 2025-07-06 04:[address] [place] [address] 3.0 g/dl (missing) ALBUMIN 2025-07-06 04:[address] [place] [address] 3.3 g/dl As of February 2023 testing method has changed, this may include reference ranges. MEAN CORPUSCULAR HEMOGLOBIN 2025-07-06 04:52 [facility] 30.7 pg (missing) MEAN CORPUSCULAR HGB CONC 2025-07-06 04:52 [facility] 32.8 g/dl (missing) BUN - BLOOD UREA NITROGEN 2025-07-06 04:[address] [place] [address] 33 mg/dl As of February 2023 testing method has changed, this may include reference ranges. HCT - HEMATOCRIT 2025-07-06 04:52 [facility] 38.7 % (missing) POTASSIUM 2025-07-06 04:[address] [place] [address] 4.1 mmol/l As of February 2023 testing method has changed, this may include reference ranges. RED BLOOD COUNT 2025-07-06 04:[address] [place] [address] 4.14 10 6/ul (missing) TOTAL PROTEIN 2025-07-06 04:[address] [place] [address] 6.3 g/dl As of February 2023 testing method has changed, this may include reference ranges. ALKALINE PHOSPHATASE 2025-07-06 04:[address] [place] [address] 73 iu/l As of February 2023 testing method has changed, this may include reference ranges. CALCIUM 2025-07-06 04:[address] [place] [address] 8.5 mg/dl As of February 2023 testing method has changed, this may include reference ranges. MEAN CORPUSCULAR VOLUME 2025-07-06 04:52 [facility] 93.5 fl (missing) Result panel 6471 WBC,URINE 2025-07-06 06:20 [facility] >25 /hpf (missing) GLUCOSE, URINE (UA) 2025-07-06 06:20 [facility] >=1000 mg/dl (missing) CASTS, URINE 2025-07-06:20 [facility] 0-2 Granular Casts /lpf (missing) UROBILINOGEN,URINE 2025-07-06 06:20 [facility] 0.2 (NORMAL) e.u./dl (missing) SPECIFIC GRAVITY,URINE 2025-07-06 06:20 [facility] 1.010 (missing ) (missing) KETONES,URINE (UA) 2025-07-06 06:20 [facility] 40 mg/dl (missing) RBC,URINE 2025-07-06 06:20 [facility] 6-10 /hpf (missing) PH,URINE 2025-07-06 06:20 [facility] 6.0 ph (missing) CLARITY,URINE 2025-07-06 06:20 [facility] HAZY (missing ) (missing) SQUAMOUS EPITHELIAL CELL,UR 2025-07-06 06:20 [facility] MANY [place] (missing ) (missing) BACTERIA,URINE 2025-07-06 06:20 [facility] Moderate /hpf (missing) NITRITE,URINE 2025-07-06 06:20 [facility] NEGATIVE (missing ) (missing) BILIRUBIN,URINE 2025-07-06 06:20 [facility] NEGATIVE (missing ) Bilirubin can be influenced by color interference. Please correlate positive results with clinical presentation SARS-CoV-2 -RESP PCR PANEL 2025-07-06:20 [facility] NOT DETECTED (missing ) A negative test result for this test indicates that SARS-CoV-2 RNA was not present in the specimen above the limit of detection. Testing performed on the BioFire RP2.1 Panel, a multiplexed nucleic acid repiratory panel. Negative results do not preclude infection with SARS-CoV-2 virus and should not be the sole basis of a patient management decision. In some patients repeat testing at various time points may be necessary for virus detection. False-negative results may arise from improper sample collection, degradation of viral RNA during shipping or storage, the presence of PCR inhibitors, and/or mutation in the SARS-CoV-2 virus. INFLUENZA A- RESP PCR PANEL 2025-07-06:20 [facility] NOT DETECTED (missing ) Influenza A including subtypes H1, H3, and H1-2009 not detected by the BioFire RP2.1 Panel, a multiplexed nucleic acid test intended for the simultaneous qualitative detection and differentiation of nucleic acids from multiple viral and bacterial respiratory organisms. B. PARAPERTUSSIS- RESP PCR MARLEY 2025-07-06 06:20 [facility] NOT DETECTED (missing ) Negative results for this organism do not preclude infection with this organism and may require additional laboratory testing (e.g., bacterial and viral culture, immunofluorescence, and radiography) when evaluating a patient with possible respiratory tract infection. B. PERTUSSIS- RESP PCR PANEL 2025-07-06 06:20 [facility] NOT DETECTED (missing ) Negative results for this organism do not preclude infection with this organism and may require additional laboratory testing (e.g., bacterial and viral culture, immunofluorescence, and radiography) when evaluating a patient with possible respiratory tract infection. C. PNEUMONIAE- RESP PCR PANEL 2025-07-06 06:20 [facility] NOT DETECTED (missing ) Negative results for this organism do not preclude infection with this organism and may require additional laboratory testing (e.g., bacterial and viral culture, immunofluorescence, and radiography) when evaluating a patient with possible respiratory tract infection. M. PNEUMONIAE- RESP PCR PANEL 2025-07-06 06:20 [facility] NOT DETECTED (missing ) Negative results for this organism do not preclude infection with this organism and may require additional laboratory testing (e.g., bacterial and viral culture, immunofluorescence, and radiography) when evaluating a patient with possible respiratory tract infection. CORONAVIRUS 229E-RESP PCR 2025-07-06 06:20 [facility] NOT DETECTED (missing ) Negative results in the setting ofa respiratory illness may be due to infection with pathogens not detected by this test, or lower respiratory tract infection that may not be detected by nasopharyngeal specimen. CORONAVIRUS HKU1-RESP PCR 2025-07-06 06:20 [facility] NOT DETECTED (missing ) Negative results in the setting ofa respiratory illness may be due to infection with pathogens not detected by this test, or lower respiratory tract infection that may not be detected by nasopharyngeal specimen. CORONAVIRUS [id number] PCR 2025-07-06 06:20 [facility] NOT DETECTED (missing ) Negative results in the setting ofa respiratory illness may be due to infection with pathogens not detected by this test, or lower respiratory tract infection that may not be detected by nasopharyngeal specimen. CORONAVIRUS [id number] PCR 2025-07-06 06:20 [facility] NOT DETECTED (missing ) Negative results in the setting ofa respiratory illness may be due to infection with pathogens not detected by this test, or lower respiratory tract infection that may not be detected by nasopharyngeal specimen. HUMAN METAPNEUMOVIRUS 2025-07-06 06:20 [facility] NOT DETECTED (missing ) Negative results in the setting ofa respiratory illness may be due to infection with pathogens not detected by this test, or lower respiratory tract infection that may not be detected by nasopharyngeal specimen. INFLUENZA B - RESP PCR PANEL 2025-07-06 06:20 [facility] NOT DETECTED (missing ) Negative results in the setting ofa respiratory illness may be due to infection with pathogens not detected by this test, or lower respiratory tract infection that may not be detected by nasopharyngeal specimen. PARAINFLUENZA VIRUS 1 2025-07-06 06:20 [facility] NOT DETECTED (missing ) Negative results in the setting ofa respiratory illness may be due to infection with pathogens not detected by this test, or lower respiratory tract infection that may not be detected by nasopharyngeal specimen. PARAINFLUENZA VIRUS 2 2025-07-06 06:20 [facility] NOT DETECTED (missing ) Negative results in the setting ofa respiratory illness may be due to infection with pathogens not detected by this test, or lower respiratory tract infection that may not be detected by nasopharyngeal specimen. PARAINFLUENZA VIRUS 3 2025-07-06 06:20 [facility] NOT DETECTED (missing ) Negative results in the setting ofa respiratory illness may be due to infection with pathogens not detected by this test, or lower respiratory tract infection that may not be detected by nasopharyngeal specimen. PARAINFLUENZA VIRUS 4 2025-07-06 06:20 [facility] NOT DETECTED (missing ) Negative results in the setting ofa respiratory illness may be due to infection with pathogens not detected by this test, or lower respiratory tract infection that may not be detected by nasopharyngeal specimen. RHINOVIRUS/ENTEROVI BUD 2025-07-06 06:20 [facility] NOT DETECTED (missing ) Negative results in the setting ofa respiratory illness may be due to infection with pathogens not detected by this test, or lower respiratory tract infection that may not be detected by nasopharyngeal specimen. RSV- RESP PCR PANEL 2025-07-06 06:20 [facility] NOT DETECTED (missing ) Negative results in the setting ofa respiratory illness may be due to infection with pathogens not detected by this test, or lower respiratory tract infection that may not be detected by nasopharyngeal specimen. ADENOVIRUS - RESP PCR PANEL 2025-07-06 06:20 [facility] NOT DETECTED (missing ) Y Negative results in the setting ofa respiratory illness may be due to infection with pathogens not detected by this test, or lower respiratory tract infection that may not be detected by nasopharyngeal specimen. UR CULTURE IF IND 2025-07-06 06:20 [facility] NOT INDICATED (missing ) A culture is not indicated on urine samples contaminated with greater than a few Squamous Epithelial cells/HPF. A mid-stream clean catch urine for culture is recommended. WBC CLUMPS,URINE 2025-07-06:20 [facility] PRESENT (missing ) (missing) LEUKOCYTE ESTERASE, URINE 2025-07-06:20 [facility] TRACE (missing ) (missing) OCCULT BLOOD,URINE 2025-07-06:20 [facility] TRACE (missing ) (missing) PROTEIN,URINE 2025-07-06:20 [facility] TRACE mg/dl (missing) COLOR,URINE 2025-07-06 06:20 [facility] YELLOW (missing ) URINE CATHETERIZED Result panel [id number] GLUCOSE, URINE (UA) 2025-07-06:[address] [place] [id number] >=1000 mg/dl (missing) CASTS, URINE 2025-07-06 07:[address] [place] [id number] 0-2 Granular Casts /lpf (missing) UROBILINOGEN,URI NE 2025-07-06:[address] [place] [id number] 0.2 (NORMAL) e.u./dl (missing) SPECIFIC GRAVITY,URINE 2025-07-06 07:[address] [place] [address] 1.020 (missing) (missing) WBC,URINE 2025-07-06 07:[address] [place] [id number] 11-25 /hpf (missing) KETONES,URINE (UA) 2025-07-06 :[address] [place] [id number] 15 mg/dl (missing) RBC,URINE 2025-07-06:[address] [place] [address] 6-10 /hpf (missing) PH,URINE 2025-07-06 07:[address] [place] [address] 6.0 ph (missing) URINE MICROSCOPIC INDICATED? 2025-07-06:[address] [place] [id number] INDICATED (missing) (missing) SQUAMOUS EPITHELIAL CELL,UR 2025-07-06 :[address] [place] [id number] MOD Squamous (missing) (missing) BACTERIA,URINE 2025-07-06 :[address] [place] [id number] Moderate /hpf (missing) LEUKOCYTE ESTERASE, URINE 2025-07-06 :[address] [place] [id number] NEGATIVE (missing) (missing) NITRITE,URINE 2025-07-06 :[address] [place] [id number] NEGATIVE (missing) (missing) BILIRUBIN,URINE 2025-07-06 :[address] [place] [id number] NEGATIVE (missing) Bilirubin can be influenced by color interference. Please correlate positive results with clinical presentation UR CULTURE IF IND 2025-07-06:[address] [place] [id number] NOT INDICATED (missing) A culture is not indicated on urine samples contaminated with greater than a few Squamous Epithelial cells/HPF. A mid-stream clean catch urine for culture is recommended. CLARITY,URINE 2025-07-06:[address] [place] [id number] SL. CLOUDY (missing) (missing) OCCULT BLOOD,URINE 2025-07-06:[address] [place] [id number] SMALL (missing) (missing) PROTEIN,URINE 2025-07-06:[address] [place] [address] TRACE mg/dl (missing) COLOR,URINE 2025-07-06:[address] [place] [address] YELLOW (missing) URINE CATHETERIZED Result panel [id number] GLUCOSE, WHOLE BLOOD 2025-07-06 12:29 [facility] 281 (missing) (missing) Social History date description facility 2025-04-10 00:00 Never smoked tobacco (finding) [facility] 2025-04-14 00:00 Never smoked tobacco (finding) [facility] 2025-04-15 00:00 Never smoked tobacco (finding) [facility] 2025-04-24 00:00 Never smoked tobacco (finding) [facility] 2025-04-30 00:00 Never smoked tobacco (finding) [facility] 2025-05-10 00:00 Never smoked tobacco (finding) [facility] 2025-05-15 00:00 Never smoked tobacco (finding) [facility] 2025-05-20 00:00 Never smoked tobacco (finding) [facility] 2025-05-29 00:00 Never smoked tobacco (finding) [facility] 2025-06-15 00:00 Never smoked tobacco (finding) [facility] 2025-06-22 00:00 Never smoked tobacco (finding) [facility] 2025-06-26 00:00 Never smoked tobacco (finding) [facility] Vital Signs date measurement value units 2025-04-10 [...]
[2025-07-06] MEDS ORDERED: ALBUTEROL NEB 2.5 MG/3 ML INH PRN (15:53)
[2025-07-06] MEDS: INSULIN GLARGINE-YFGN 300 UNIT/3 ML PEN SUBQ ONE (18:02)
[2025-07-06] MEDS: INSULIN LISPRO 300 UNIT/3 ML PEN SUBQ SCH (18:03)
[2025-07-06] MEDS: SODIUM CHLORIDE FLUSH 0.9% 10 ML SYRINGE IVP SCH (18:04)
[2025-07-06] MEDS: IPRATROPIUM/ALBUTEROL 3 ML NEB INH SCH (18:45)
[2025-07-06] MEDS: FORMOTEROL FUMARATE NEB 20 MCG/2 ML INH SCH (18:45)
[2025-07-06] MEDS: BUDESONIDE 0.5 MG/2 ML NEB INH SCH (18:45)
[2025-07-06] MEDS: ATORVASTATIN 40 MG TABLET PO SCH (20:21)
[2025-07-06] MEDS: ACETAMINOPHEN 325 MG TABLET PO PRN (20:21)
[2025-07-06] MEDS: cefTRIAXone 1 GM VIAL IVP ONE (20:47)
[2025-07-06] MEDS: INSULIN GLARGINE-YFGN 300 UNIT/3 ML PEN SUBQ SCH (20:51)
[2025-07-06] MEDS: HEPARIN 5,000 UNIT/ML VIAL SUBQ SCH (20:51)
[2025-07-06] MEDS ORDERED: NON FORMULARY MED (Budesonide-Glycopyr-Formoterol [Breztri Aerosphere] 160-9-4.8 mcg/actua INH SCH (21:00)
[2025-07-07 05:53] LABS: HCT - HEMATOCRIT 35.3 % (37.0-47.0); HGB - HEMOGLOBIN 11.4 g/dL (12.0-16.0); MEAN PLATELET VOLUME 11.5 fL (7.9-10.8); PLT - PLATELET COUNT 147.0 10^3/uL (130-450); RED CELL DISTRIBUTION WIDTH 13.9 % (12.0-15.0)
[2025-07-07 06:13] LABS: BUN - BLOOD UREA NITROGEN 31.0 mg/dL (6-20); CARBON DIOXIDE - CO2 21.0 mmol/L (21-32); CREATININE 1.3 mg/dL (0.6-1.3); GFR - MDRD 40.0 (>89)
[2025-07-07] MEDS: PROPRANOLOL 10 MG TABLET PO SCH (08:24)
[2025-07-07] MEDS: PRENATAL VITAMIN TABLET PO SCH (08:24)
[2025-07-07] MEDS: INSULIN LISPRO 300 UNIT/3 ML PEN SUBQ SCH ×3 (08:26→18:01)
[2025-07-07] MEDS ORDERED: cefTRIAXone 1 GM VIAL IVP SCH (09:00)
--- NOTE | 2025-07-07 13:18 | PROVIDER PROGRESS NOTE ---
Subjective Subjective Subjective: Overnight, patient had some shortness of breath. She had some wheezing as well. It is improved with breathing treatments. She still has some bodyaches, fevers and chills overnight. Current Medications Current Medications Current Medications: Current Medications Generic Name Dose Route Start Last Admin Trade Name Freq PRN Reason Stop Dose Admin Acetaminophen 650 mg 07/06/25 13:49 07/07/25 05:07 Acetaminophen 325 Mg Tablet PO 650 mg Q4HR PRN Administration Pain 1 to 4, or Fever Albuterol 2.5 mg 07/06/25 15:53 Albuterol Neb 2.5 Mg/3 Ml INH RTQ4H PRN Wheezing Albuterol/Ipratropium 3 ml 07/06/25 19:00 07/07/25 11:50 Ipratropium/Albuterol 3 Ml Neb INH 3 ml RTQID VERNELL Administration Atorvastatin Calcium 40 mg 07/06/25 21:00 07/06/25 20:21 Atorvastatin 40 Mg Tablet PO 40 mg QPM VERNELL Administration Budesonide 0.5 mg 07/06/25 19:00 07/07/25 08:41 Budesonide 0.5 Mg/2 Ml Neb INH 0.5 mg RTBID VERNELL Administration Ceftriaxone Sodium 2 gm 07/07/25 09:00 07/07/25 08:24 Ceftriaxone 2 Gm Vial IVP 2 gm DAILY VERNELL Administration Duloxetine HCl 60 mg 07/07/25 09:00 07/07/25 08:24 Duloxetine 60 Mg Capsule PO 60 mg DAILY VERNELL Administration Formoterol Fumarate 20 mcg 07/06/25 19:00 07/07/25 08:40 Formoterol Fumarate Neb 20 Mcg/2 Ml INH 20 mcg RTBID VERNELL Administration Heparin Sodium (Porcine) 5,000 unit 07/06/25 21:00 07/07/25 08:25 Heparin 5,000 Unit/Ml Vial SUBQ 5,000 unit BID VERNELL Administration Insulin Glargine-yfgn 30 unit 07/06/25 21:00 07/07/25 08:26 Insulin Glargine-Yfgn 300 Unit/3 Ml Pen SUBQ 30 unit BID VERNELL Administration Insulin Human Lispro 1 - 9 unit 07/07/25 08:00 07/07/25 12:29 Insulin Lispro 300 Unit/3 Ml Pen SUBQ 5 unit 0800,1200,1700,2100 VERNELL Administration Protocol Ondansetron HCl 4 mg 07/06/25 13:49 Ondansetron Odt 4 Mg Tablet TL Q6HR PRN Nausea / Vomiting Ondansetron HCl 4 mg 07/06/25 13:49 07/07/25 12:26 Ondansetron 4 Mg/2 Ml Vial IVP 4 mg Q6HR PRN Administration Nausea / Vomiting Multivit/Folic Acid/Iron 1 tab 07/07/25 08:00 07/07/25 08:24 Vitamin Tablet PO 1 tab DAILYWM VERNELL Administration Propranolol HCl 20 mg 07/07/25 09:00 07/07/25 08:24 Propranolol 10 Mg Tablet PO 20 mg DAILY VERNELL Administration Quetiapine Fumarate 50 mg 07/06/25 21:00 07/06/25 20:21 Quetiapine 25 Mg Tablet PO 50 mg HS VERNELL Administration Sodium Chloride 10 ml 07/06/25 13:49 Sodium Chloride Flush 0.9% 10 Ml Syringe IVP PRN PRN NEEDED PER PROVIDER ORDERS Sodium Chloride 10 ml 07/06/25 17:00 07/07/25 08:24 Sodium Chloride Flush 0.9% 10 Ml Syringe IVP 10 ml 0100,0900,1700 VERNELL Administration Objective Vital Signs/Intake & Output Reviewed Vital Signs: Yes Vital Signs: Vital Signs x48h Temp Pulse Pulse Resp BP Pulse Ox 07/07/25 11:51 92 18 07/07/25 08:43 90 20 07/07/25 07:33 97.3 F L 103 H 20 114/58 L 93 Intake & Output: Intake & Output 07/04/25 07/05/25 07/06/25 07/07/25 23:59 23:59 23:59 23:59 Intake Total 5660 / 5660 2663 / 2663 Output Total 850 / 850 3200 / 3200 Balance 4810 / 4810 -537 / -537 Weight (kg) 131.5 kg Objective General Appearance: positive No acute distress and Alert; negative Anxious Eyes Bilateral: positive Normal inspection, PERRL and EOMI ENT: positive ENT inspection nml, Pharynx nml and No signs of dehydration Neck: positive Nml inspection, Thyroid nml and No JVD Respiratory: positive Chest non-tender, Breath sounds nml and Other (Mild expiratory wheezing noted in all lung morris) Cardiovascular: positive No murmur, No gallop and Tachycardia; negative Systolic murmur Abdomen: positive Non-tender, No organomegaly, No distention and Other (bilateral flank pain, L>R); negative Guarding or Splenomegaly Back: positive Nml inspection; negative CVA tenderness (R) or CVA tenderness (L) Skin: positive Color nml, No rash, Warm and Dry Extremities: positive Non-tender, Full ROM, Nml appearance and Pedal edema (trace pitting edema ) Neurologic/Psychiatric: positive Oriented x3, Motor nml and Mood/affect nml Lab Results 07/07/25 05:11 07/07/25 05:11 Other Labs: Lab Results x24hrs 07/07/25 07/07/25 07/07/25 Range/Units 11:09 07:31 05:11 WBC 8.5 (4.8-10.8) x10^3/uL RBC 3.81 L (4.20-5.40) 10^6/uL Hgb 11.4 L (12.0-16.0) g/dL Hct 35.3 L (37.0-47.0) % MCV 92.7 (81.0-99.0) fL MCH 29.9 (27.0-31.0) pg MCHC 32.3 (32.0-36.0) g/dL RDW 13.9 (12.0-15.0) % Plt Count 147 (130-450) 10^3/uL MPV 11.5 H (7.9-10.8) fL Sodium 131 L (135-145) mmol/L Potassium 4.2 (3.5-4.5) mmol/L Chloride 102 (101-111) mmol/L Carbon Dioxide 21 (21-32) mmol/L Anion Gap 8.0 (6-13) BUN 31 H (6-20) mg/dL Creatinine 1.3 (0.6-1.3) mg/dL Estimated GFR (MDRD) 40 L (>89) Glucose 188 H (74-104) mg/dL POC Whole Bld Glucose 243 203 (70-100) mg/dL Calcium 8.3 L (8.5-10.3) mg/dL Magnesium 2.1 (1.7-2.3) mg/dL 07/06/25 07/06/25 Range/Units 20:48 16:33 WBC (4.8-10.8) x10^3/uL RBC (4.20-5.40) 10^6/uL Hgb (12.0-16.0) g/dL Hct (37.0-47.0) % MCV (81.0-99.0) fL MCH (27.0-31.0) pg MCHC (32.0-36.0) g/dL RDW (12.0-15.0) % Plt Count (130-450) 10^3/uL MPV (7.9-10.8) fL Sodium (135-145) mmol/L Potassium (3.5-4.5) mmol/L Chloride (101-111) mmol/L Carbon Dioxide (21-32) mmol/L Anion Gap (6-13) BUN (6-20) mg/dL Creatinine (0.6-1.3) mg/dL Estimated GFR (MDRD) (>89) Glucose (74-104) mg/dL POC Whole Bld Glucose 258 234 (70-100) mg/dL Calcium (8.5-10.3) mg/dL Magnesium (1.7-2.3) mg/dL Sepsis Event Note (H) Evaluation Possible source of Sepsis: positive Genitourinary Assessment/Plan Problem List (1) E coli bacteremia: (2) Sepsis: Qualifiers: Acute renal failure type: unspecified Sepsis acute organ dysfunction status: with acute organ dysfunction Sepsis type: sepsis due to unspecified organism Severe sepsis acute organ dysfunction type: acute renal failure S evere sepsis shock status: without septic shock Qualified Code(s): A41.9 - Sepsis, unspecified organism; R65.20 - Severe sepsis without septic shock; N17.9 - Acute kidney failure, unspecified (3) Acute pyelonephritis: Impression: The following assessment is for the above three diagnoses: Patient presents with tachypnea, leukocytosis, subjective rigors and chills, as well as altered mental status (confusion and lethargy). Source is urinary. UA was contaminated, but does show bacteriuria, WBCs. She also has a history of frequent urinary tract infections in the past year. Abdomen/pelvis CT shows bilateral fat stranding around kidneys, suspicious for pyelonephritis. Previous urine susceptibilities show E. coli, sensitive to Rocephin. Blood cultures within 24 hours positive for E.Coli on 07/07 (also had coagulase negative Staphylococcus but this was likely a contaminant). In the ER, she received aztreonam, Flagyl, vancomycin. Will continue IV Rocephin. Will likely need at least four days of IV Rocephin, and then will transition to oral, pending clinical progress. (4) Acute kidney injury: Impression: Likely prerenal due to decreased p.o. intake versus ATN due to sepsis. Improved overnight with gentle IVF rehydration. Trend BMP daily. CT abdomen/pelvis does not show any signs of any obstruction. Hold lisinopril at this time. (5) Insulin dependent diabetes mellitus: Impression: Continue insulin Lantus 30 units twice a day, as well as sliding scale insulin. Will schedule mealtime insulin today, 5 units Lispro with meals. Hold oral antihyperglycemics at this time. (6) Fibromyalgia: Impression: Continue duloxetine. (7) Asthma: Impression: Continue DuoNebs scheduled. Qualifiers: Asthma severity: unspecified severity Asthma persistence: unspecified Asthma complication type: unspecified Qualified Code(s): J45.909 - Unspecified asthma, uncomplicated
[2025-07-07] MEDS ORDERED: MAG HYDROX/AL HYDROX/SIMETH 30 ML UDC PO PRN (15:17)
[2025-07-07] MEDS: KETOROLAC 15 MG/ML VIAL IVP STA (16:27)
[2025-07-07] MEDS: PANTOPRAZOLE 40 MG TABLET PO SCH (16:27)
[2025-07-07] MEDS: ONDANSETRON ODT 4 MG TABLET TL PRN (16:28)
[2025-07-07] MEDS: NYSTATIN POWDER 15 GM TOP SCH (21:55)
[2025-07-08] MEDS: BENZOCAINE/MENTHOL LOZENGE MM PRN (04:59)
[2025-07-08 06:15] LABS: HCT - HEMATOCRIT 35.9 % (37.0-47.0); HGB - HEMOGLOBIN 11.3 g/dL (12.0-16.0); MEAN PLATELET VOLUME 11.6 fL (7.9-10.8); PLT - PLATELET COUNT 157.0 10^3/uL (130-450); RED CELL DISTRIBUTION WIDTH 13.7 % (12.0-15.0)
[2025-07-08 06:36] LABS: BUN - BLOOD UREA NITROGEN 31.0 mg/dL (6-20); CARBON DIOXIDE - CO2 26.0 mmol/L (21-32); CREATININE 1.2 mg/dL (0.6-1.3); GFR - MDRD 44.0 (>89)
[2025-07-08 08:56] LABS: ESTIMATED AVERAGE GLUCOSE 160 mg/dL (70-100); HEMOGLOBIN A1c% 7.2 % (4.27-6.07)
--- NOTE | 2025-07-08 09:04 | XRAY Report ---
PROCEDURE: XR Chest 1V INDICATIONS: PRICILLA TECHNIQUE: One view of the chest was acquired. COMPARISON: 07/06/2025. FINDINGS: Surgical changes and devices: None. Lungs and pleura: No pleural effusions or pneumothorax. No consolidation. Mediastinum: Mediastinal contours appear normal. Heart size is normal. Bones and chest wall: No suspicious bony lesions. Overlying soft tissues appear unremarkable. IMPRESSION: No acute cardiopulmonary process. Reviewed by: Charles Mo MD on 07/08/2025 9:01 AM [facility] Approved by: Charles Mo MD on 07/08/2025 9:01 AM [facility] Station ID: [id number]
--- NOTE | 2025-07-08 09:53 | PROVIDER PROGRESS NOTE ---
Subjective Subjective Subjective: Overnight, patient continues to have some fevers and chills. She states that the blanket is soaked. She continues to have some shortness of breath with wheezing. This is improved after her breathing treatments. Additionally, she is having some epigastric abdominal pain, which she describes as gnawing, and achy. It is partially relieved with the Protonix. Did not get much sleep last night, and so has a headache. Tylenol is ordered as needed, which is usually what she takes at home for these headaches as well. Current Medications Current Medications Current Medications: Current Medications Generic Name Dose Route Start Last Admin Trade Name Freq PRN Reason Stop Dose Admin Acetaminophen 650 mg 07/06/25 13:49 07/07/25 14:56 Acetaminophen 325 Mg Tablet PO 650 mg Q4HR PRN Administration Pain 1 to 4, or Fever Al Hydroxide/Mg Hydroxide 30 ml 07/07/25 15:17 Mag Hydrox/Al Hydrox/Simeth 30 Ml Udc PO Q4HR PRN INDIGESTION Albuterol 2.5 mg 07/06/25 15:53 Albuterol Neb 2.5 Mg/3 Ml INH RTQ4H PRN Wheezing Albuterol/Ipratropium 3 ml 07/06/25 19:00 07/08/25 07:28 Ipratropium/Albuterol 3 Ml Neb INH 3 ml RTQID VERNELL Administration Atorvastatin Calcium 40 mg 07/06/25 21:00 07/07/25 21:55 Atorvastatin 40 Mg Tablet PO 40 mg QPM VERNELL Administration Budesonide 0.5 mg 07/06/25 19:00 07/08/25 07:28 Budesonide 0.5 Mg/2 Ml Neb INH 0.5 mg RTBID VERNELL Administration Ceftriaxone Sodium 2 gm 07/07/25 09:00 07/08/25 08:02 Ceftriaxone 2 Gm Vial IVP 2 gm DAILY VERNELL Administration Duloxetine HCl 60 mg 07/07/25 09:00 07/08/25 08:02 Duloxetine 60 Mg Capsule PO 60 mg DAILY VERNELL Administration Formoterol Fumarate 20 mcg 07/06/25 19:00 07/08/25 07:28 Formoterol Fumarate Neb 20 Mcg/2 Ml INH 20 mcg RTBID VERNELL Administration Heparin Sodium (Porcine) 5,000 unit 07/06/25 21:00 07/08/25 08:02 Heparin 5,000 Unit/Ml Vial SUBQ 5,000 unit BID VERNELL Administration Insulin Glargine-yfgn 30 unit 07/06/25 21:00 07/08/25 08:05 Insulin Glargine-Yfgn 300 Unit/3 Ml Pen SUBQ 30 unit BID VERNELL Administration Insulin Human Lispro 5 unit 07/07/25 17:00 07/08/25 08:04 Insulin Lispro 300 Unit/3 Ml Pen SUBQ 5 unit TIDWM VERNELL Administration Insulin Human Lispro 2 - 10 unit 07/07/25 17:00 07/08/25 08:04 Insulin Lispro 300 Unit/3 Ml Pen SUBQ 2 unit 0800,1200,1700,2100 VERNELL Administration Protocol Nystatin 1 applic 07/07/25 21:00 07/08/25 08:03 Nystatin Powder 15 Gm TOP 1 applic BID VERNELL Administration Ondansetron HCl 4 mg 07/06/25 13:49 07/07/25 16:28 Ondansetron Odt 4 Mg Tablet TL 4 mg Q6HR PRN Administration Nausea / Vomiting Ondansetron HCl 4 mg 07/06/25 13:49 07/07/25 12:26 Ondansetron 4 Mg/2 Ml Vial IVP 4 mg Q6HR PRN Administration Nausea / Vomiting Pantoprazole Sodium 40 mg 07/07/25 16:00 07/08/25 06:13 Pantoprazole 40 Mg Tablet PO 40 mg QDAC VERNELL Administration Multivit/Folic Acid/Iron 1 tab 07/07/25 08:00 07/08/25 08:03 Vitamin Tablet PO 1 tab DAILYWM VERNELL Administration Propranolol HCl 20 mg 07/07/25 09:00 07/08/25 08:03 Propranolol 10 Mg Tablet PO 20 mg DAILY VERNELL Administration Quetiapine Fumarate 50 mg 07/06/25 21:00 07/07/25 21:55 Quetiapine 25 Mg Tablet PO 50 mg HS VERNELL Administration Sodium Chloride 10 ml 07/06/25 13:49 Sodium Chloride Flush 0.9% 10 Ml Syringe IVP PRN PRN NEEDED PER PROVIDER ORDERS Sodium Chloride 10 ml 07/06/25 17:00 07/08/25 08:05 Sodium Chloride Flush 0.9% 10 Ml Syringe IVP 10 ml 0100,0900,1700 VERNELL Administration Throat Lozenges 1 lozenge 07/08/25 04:52 07/08/25 04:59 Benzocaine/Menthol Lozenge MM 1 lozenge Q2HR PRN Administration Throat pain Objective Vital Signs/Intake & Output Reviewed Vital Signs: Yes Vital Signs: Vital Signs x48h Temp Pulse Resp 07/08/25 07:29 96 22 07/08/25 04:59 98.8 F Intake & Output: Intake & Output 07/05/25 07/06/25 07/07/25 07/08/25 23:59 23:59 23:59 23:59 Intake Total 5660 / 5660 3574 / 3574 240 / 240 Output Total 850 / 850 3550 / 3550 2600 / 2600 Balance 4810 / 4810 -0 / -2360 Weight (kg) 131.5 kg Objective General Appearance: positive No acute distress and Alert; negative Anxious Eyes Bilateral: positive Normal inspection, PERRL and EOMI ENT: positive ENT inspection nml, Pharynx nml and No signs of dehydration Neck: positive Nml inspection, Thyroid nml and No JVD Respiratory: positive Chest non-tender, Breath sounds nml and Other (Mild expiratory wheezing noted in all lung morris) Cardiovascular: positive No murmur, No gallop and Tachycardia; negative Systolic murmur Abdomen: positive Non-tender, No organomegaly, No distention and Other (bilateral flank pain, L>R); negative Guarding or Splenomegaly Back: positive Nml inspection; negative CVA tenderness (R) or CVA tenderness (L) Skin: positive Color nml, No rash, Warm and Dry Extremities: positive Non-tender, Full ROM, Nml appearance and Pedal edema (trace pitting edema ) Neurologic/Psychiatric: positive Oriented x3, Motor nml and Mood/affect nml Lab Results 07/08/25 05:27 07/08/25 05:27 Other Labs: Lab Results x24hrs 07/08/25 07/08/25 07/07/25 Range/Units 07:36 05:27 20:37 WBC 8.1 (4.8-10.8) x10^3/uL RBC 3.81 L (4.20-5.40) 10^6/uL Hgb 11.3 L (12.0-16.0) g/dL Hct 35.9 L (37.0-47.0) % MCV 94.2 (81.0-99.0) fL MCH 29.7 (27.0-31.0) pg MCHC 31.5 L (32.0-36.0) g/dL RDW 13.7 (12.0-15.0) % Plt Count 157 (130-450) 10^3/uL MPV 11.6 H (7.9-10.8) fL Sodium 136 (135-145) mmol/L Potassium 4.0 (3.5-4.5) mmol/L Chloride 104 (101-111) mmol/L Carbon Dioxide 26 (21-32) mmol/L Anion Gap 6.0 (6-13) BUN 31 H (6-20) mg/dL Creatinine 1.2 (0.6-1.3) mg/dL Estimated GFR (MDRD) 44 L (>89) Glucose 98 (74-104) mg/dL POC Whole Bld Glucose 164 113 (70-100) mg/dL Estimat Average Glucose 160 H (70-100) mg/dL Hemoglobin A1c % 7.2 H (4.27-6.07) % Calcium 8.6 (8.5-10.3) mg/dL Magnesium 2.2 (1.7-2.3) mg/dL 07/07/25 07/07/25 Range/Units 16:35 11:09 WBC (4.8-10.8) x10^3/uL RBC (4.20-5.40) 10^6/uL Hgb (12.0-16.0) g/dL Hct (37.0-47.0) % MCV (81.0-99.0) fL MCH (27.0-31.0) pg MCHC (32.0-36.0) g/dL RDW (12.0-15.0) % Plt Count (130-450) 10^3/uL MPV (7.9-10.8) fL Sodium (135-145) mmol/L Potassium (3.5-4.5) mmol/L Chloride (101-111) mmol/L Carbon Dioxide (21-32) mmol/L Anion Gap (6-13) BUN (6-20) mg/dL Creatinine (0.6-1.3) mg/dL Estimated GFR (MDRD) (>89) Glucose (74-104) mg/dL POC Whole Bld Glucose 117 243 (70-100) mg/dL Estimat Average Glucose (70-100) mg/dL Hemoglobin A1c % (4.27-6.07) % Calcium (8.5-10.3) mg/dL Magnesium (1.7-2.3) mg/dL Sepsis Event Note (H) Evaluation Possible source of Sepsis: positive Genitourinary Assessment/Plan Problem List (1) E coli bacteremia: (2) Sepsis: Qualifiers: Acute renal failure type: unspecified Sepsis acute organ dysfunction status: with acute organ dysfunction Sepsis type: sepsis due to unspecified organism Severe sepsis acute organ dysfunction type: acute renal failure S evere sepsis shock status: without septic shock Qualified Code(s): A41.9 - Sepsis, unspecified organism; R65.20 - Severe sepsis without septic shock; N17.9 - Acute kidney failure, unspecified (3) Acute pyelonephritis: Impression: The following assessment is for the above three diagnoses: Patient presented with tachypnea, leukocytosis, subjective rigors and chills, as well as altered mental status (confusion and lethargy). Source is urinary. UA was contaminated, but does show bacteriuria, WBCs. Urine culture does show E.Coli. She also has a history of frequent urinary tract infections in the past year. Abdomen/pelvis CT shows bilateral fat stranding around kidneys, suspicious for pyelonephritis. Previous urine susceptibilities show E. coli, sensitive to Rocephin. Blood cultures within 24 hours positive for E.Coli on 07/07 (also had coagulase negative Staphylococcus but this was likely a contaminant). In the ER, she received aztreonam, Flagyl, vancomycin. Will continue IV Rocephin. Will likely need at least four days of IV Rocephin, and then will transition to oral, pending clinical progress. Today is day 3 of IV antibiotics. (4) Acute kidney injury: Impression: Likely prerenal due to decreased p.o. intake versus ATN due to sepsis. Improved overnight with gentle IVF rehydration. Trend BMP daily. CT abdomen/pelvis does not show any signs of any obstruction. Hold lisinopril at this time. (5) Insulin dependent diabetes mellitus: Impression: Continue insulin Lantus 30 units twice a day, as well as sliding scale insulin. Scheduled mealtime insulin today, 5 units Lispro with meals. Hold oral antihyperglycemics at this time. (6) Fibromyalgia: Impression: Continue duloxetine. (7) Asthma: Impression: Continue DuoNebs scheduled. Qualifiers: Asthma complication type: unspecified Asthma persistence: unspecified Asthma severity: unspecified severity Qualified Code(s): J45.909 - Unspecified asthma, uncomplicated (8) Physical deconditioning: Impression: PT consulted. At baseline, patient ambulates with a walker. She has home physical therapy, but feels weaker than her baseline at this time. (9) Abdominal pain: Impression: Patient complains of abdominal pain. It is located in the epigastrium, cramping in nature. Abdomen remains soft, and she continues to pass gas. CT abdomen pelvis reviewed from admission, negative for any acute process. She did have some mild to moderate constipation. Will continue with bowel regimen, MiraLAX and senna daily. Protonix started for potential acid reflux. Maalox as needed for abdominal discomfort ordered as well. Qualifiers: Abdominal location: unspecified location Qualified Code(s): R10.9 - Unspecified abdominal pain
[2025-07-08] MEDS: SENNA 8.6 MG TABLET PO SCH (12:16)
[2025-07-08] MEDS: NYSTATIN POWDER 15 GM TOP SCH (12:23)
--- NOTE | 2025-07-08 17:24 | PT Plan of Care ---
PT Plan of Care Physical Therapy Plan of Care: Diagnosis Diagnosis sepsis Diagnosis acute pyelonephritis Referring Provider Florina Ozuna Patient Status Inpatient Chief Complaint Chief Complaint weakness, falls Onset of Chief Complaint [employer]ANT Balance/ Functional Results Sitting Balance Good Standing Balance Fair Tinetti Composite Score ( 16 Balance + Gait) Tinetti Assessment High Fall Risk Interpretation Assessment Assessment Pt is a 79yo F referred for PT eval d/t weakness and limited mobility. Admitted with sepsis, acute pyelo, KRUNAL. PMH includes recurrent UTIs, DM, peripheral neuropathy, and fibromyalgia. Pt also reports L hip pain and is planning on JENNIE. Cleared for eval by hospitalist. Upon PT eval, pt is A&Ox4 and agrees to work with PT. Supine to sit transfer with modAx1, requires increased time for all tasks d/t pain and fatigue. Vitals WNL and stable (130s/70s) though previously hypotensive and pt reports feeling fatigued and general malaise throughout session. After prolonged seated rest, STS with FWW and minAx1, able to maintain standing for BP check (BP 131/ 71) but reports feeling unsteady and weak. Short distance amb to b/s chair with shuffle steps and minAx1. Overall high fall risk per Tinetti score of 16/28 and reported fall history. Pt will benefit from continued PT in acute setting to progress upright tolerance and mobility for improved functional indep. When medically clear, PT rec dc to SNF given fall history and deconditioning. Goals Improve bed mobility to: Modified Independent Improve supine to sit to: Modified Independent Improve sit to stand to: Modified Independent Improve pivot transfer ability Modified Independent to: Improve sit to supine to: Modified Independent Improve gait ability to: Min A Assistive Device Used: Front Wheeled Walker Improve Standing Balance to: Good PT Plan of Care Frequency 1-2x/day Duration Until discharge Discharge Recommendations [facility] Other TBD Transport Needs at Discharge [facility]
[2025-07-09 06:33] LABS: HCT - HEMATOCRIT 34.3 % (37.0-47.0); HGB - HEMOGLOBIN 11.2 g/dL (12.0-16.0); MEAN PLATELET VOLUME 11.1 fL (7.9-10.8); PLT - PLATELET COUNT 174.0 10^3/uL (130-450); RED CELL DISTRIBUTION WIDTH 13.6 % (12.0-15.0)
[2025-07-09 07:00] LABS: BUN - BLOOD UREA NITROGEN 27.0 mg/dL (6-20); CARBON DIOXIDE - CO2 27.0 mmol/L (21-32); CREATININE 1.1 mg/dL (0.6-1.3); GFR - MDRD 48.0 (>89)
--- NOTE | 2025-07-09 07:45 | PROVIDER PROGRESS NOTE ---
Subjective Subjective Subjective: This morning, patient states her abdominal pain is almost completely resolved. She had another large bowel movement yesterday. She continues to pass gas. She has no nausea or vomiting. This morning, she had an episode of hypoglycemia which left her feeling weak, lethargic. She states her rigors, chills, fevers have all improved. She worked with physical therapy yesterday, understands that they recommend SNF. She has been provided with a list, and is provided her top choices to social work. Current Medications Current Medications Current Medications: Current Medications Generic Name Dose Route Start Last Admin Trade Name Freq PRN Reason Stop Dose Admin Acetaminophen 650 mg 07/06/25 13:49 07/09/25 06:54 Acetaminophen 325 Mg Tablet PO 650 mg Q4HR PRN Administration Pain 1 to 4, or Fever Al Hydroxide/Mg Hydroxide 30 ml 07/07/25 15:17 Mag Hydrox/Al Hydrox/Simeth 30 Ml Udc PO Q4HR PRN INDIGESTION Albuterol 2.5 mg 07/06/25 15:53 Albuterol Neb 2.5 Mg/3 Ml INH RTQ4H PRN Wheezing Albuterol/Ipratropium 3 ml 07/06/25 19:00 07/09/25 07:25 Ipratropium/Albuterol 3 Ml Neb INH 3 ml RTQID VERNELL Administration Atorvastatin Calcium 40 mg 07/06/25 21:00 07/08/25 21:04 Atorvastatin 40 Mg Tablet PO 40 mg QPM VERNELL Administration Budesonide 0.5 mg 07/06/25 19:00 07/09/25 07:25 Budesonide 0.5 Mg/2 Ml Neb INH 0.5 mg RTBID VERNELL Administration Ceftriaxone Sodium 2 gm 07/07/25 09:00 07/08/25 08:02 Ceftriaxone 2 Gm Vial IVP 2 gm DAILY VERNELL Administration Duloxetine HCl 60 mg 07/07/25 09:00 07/08/25 08:02 Duloxetine 60 Mg Capsule PO 60 mg DAILY VERNELL Administration Formoterol Fumarate 20 mcg 07/06/25 19:00 07/09/25 07:25 Formoterol Fumarate Neb 20 Mcg/2 Ml INH 20 mcg RTBID VERNELL Administration Heparin Sodium (Porcine) 5,000 unit 07/06/25 21:00 07/08/25 21:04 Heparin 5,000 Unit/Ml Vial SUBQ 5,000 unit BID VERNELL Administration Insulin Glargine-yfgn 15 unit 07/09/25 09:00 Insulin Glargine-Yfgn 300 Unit/3 Ml Pen SUBQ BID VERNELL Insulin Human Lispro 5 unit 07/07/25 17:00 07/08/25 17:38 Insulin Lispro 300 Unit/3 Ml Pen SUBQ 5 unit TIDWM VERNELL Administration Insulin Human Lispro 2 - 10 unit 07/07/25 17:00 07/08/25 21:05 Insulin Lispro 300 Unit/3 Ml Pen SUBQ Not Given 0800,1200,1700,2100 [facility] Protocol Nystatin 1 applic 07/07/25 21:00 07/08/25 21:05 Nystatin Powder 15 Gm TOP 1 applic BID VERNELL Administration Nystatin 1 applic 07/08/25 12:00 07/08/25 22:05 Nystatin Powder 15 Gm TOP 1 applic BID VERNELL Administration Ondansetron HCl 4 mg 07/06/25 13:49 07/07/25 16:28 Ondansetron Odt 4 Mg Tablet TL 4 mg Q6HR PRN Administration Nausea / Vomiting Ondansetron HCl 4 mg 07/06/25 13:49 07/07/25 12:26 Ondansetron 4 Mg/2 Ml Vial IVP 4 mg Q6HR PRN Administration Nausea / Vomiting Pantoprazole Sodium 40 mg 07/07/25 16:00 07/09/25 06:54 Pantoprazole 40 Mg Tablet PO 40 mg QDAC VERNELL Administration Polyethylene Glycol 17 gm 07/08/25 12:00 07/08/25 12:16 Polyethylene Glycol 3350 17 Gm Packet PO Not Given DAILY [facility] Multivit/Folic Acid/Iron 1 tab 07/07/25 08:00 07/08/25 08:03 Vitamin Tablet PO 1 tab DAILYWM VERNELL Administration Propranolol HCl 20 mg 07/07/25 09:00 07/08/25 08:03 Propranolol 10 Mg Tablet PO 20 mg DAILY VERNELL Administration Quetiapine Fumarate 50 mg 07/06/25 21:00 07/08/25 21:04 Quetiapine 25 Mg Tablet PO 50 mg HS VERNELL Administration Senna 8.6 mg 07/08/25 12:00 07/08/25 12:16 Senna 8.6 Mg Tablet PO Not Given DAILY VERNELL Sodium Chloride 10 ml 07/06/25 13:49 Sodium Chloride Flush 0.9% 10 Ml Syringe IVP PRN PRN NEEDED PER PROVIDER ORDERS Sodium Chloride 10 ml 07/06/25 17:00 07/09/25 03:28 Sodium Chloride Flush 0.9% 10 Ml Syringe IVP 10 ml 0100,0900,1700 VERNELL Administration Throat Lozenges 1 lozenge 07/08/25 04:52 07/09/25 06:55 Benzocaine/Menthol Lozenge MM 1 lozenge Q2HR PRN Administration Throat pain Objective Vital Signs/Intake & Output Reviewed Vital Signs: Yes Vital Signs: Vital Signs x48h Temp Pulse Pulse Resp BP Pulse Ox 07/09/25 07:26 84 18 07/09/25 00:12 97.7 F 73 22 115/60 93 Intake & Output: Intake & Output 07/06/25 07/07/25 07/08/25 07/09/25 23:59 23:59 23:59 23:59 Intake Total 5660 / 5660 3574 / 3574 2398 / 2398 60 / 60 Output Total 850 / 850 3550 / 3550 4050 / 4050 700 / 700 Balance 4810 / 4810 -1652 / -1652 -640 / -640 Weight (kg) 131.5 kg Objective General Appearance: positive No acute distress and Alert; negative Anxious Eyes Bilateral: positive Normal inspection, PERRL and EOMI ENT: positive ENT inspection nml, Pharynx nml and No signs of dehydration Neck: positive Nml inspection, Thyroid nml and No JVD Respiratory: positive Chest non-tender, No respiratory distress and Breath sounds nml; negative Wheezes or Rales Cardiovascular: positive No murmur, No gallop and Tachycardia; negative Systolic murmur Abdomen: positive Non-tender, No organomegaly and No distention; negative Guarding or Splenomegaly Back: positive Nml inspection; negative CVA tenderness (R) or CVA tenderness (L) Skin: positive Color nml, No rash, Warm and Dry Extremities: positive Non-tender, Full ROM, Nml appearance and Pedal edema (trace pitting edema ) Neurologic/Psychiatric: positive Oriented x3, Motor nml and Mood/affect nml Lab Results 07/09/25 06:14 07/09/25 06:14 Other Labs: Lab Results x24hrs 07/09/25 07/09/2525 Range/Units 07:36 06:14 16:44 WBC 5.8 (4.8-10.8) x10^3/uL RBC 3.64 L (4.20-5.40) 10^6/uL Hgb 11.2 L (12.0-16.0) g/dL Hct 34.3 L (37.0-47.0) % MCV 94.2 (81.0-99.0) fL MCH 30.8 (27.0-31.0) pg MCHC 32.7 (32.0-36.0) g/dL RDW 13.6 (12.0-15.0) % Plt Count 174 (130-450) 10^3/uL MPV 11.1 H (7.9-10.8) fL Sodium 141 (135-145) mmol/L Potassium 3.9 (3.5-4.5) mmol/L Chloride 107 (101-111) mmol/L Carbon Dioxide 27 (21-32) mmol/L Anion Gap 7.0 (6-13) BUN 27 H (6-20) mg/dL Creatinine 1.1 (0.6-1.3) mg/dL Estimated GFR (MDRD) 48 L (>89) Glucose 55 L* (74-104) mg/dL POC Whole Bld Glucose 119 121 (70-100) mg/dL Estimat Average Glucose (70-100) mg/dL Hemoglobin A1c % (4.27-6.07) % Calcium 8.7 (8.5-10.3) mg/dL Magnesium 2.3 (1.7-2.3) mg/dL 07/08/25 07/08/25 Range/Units 11:30 05:27 WBC (4.8-10.8) x10^3/uL RBC (4.20-5.40) 10^6/uL Hgb (12.0-16.0) g/dL Hct (37.0-47.0) % MCV (81.0-99.0) fL MCH (27.0-31.0) pg MCHC (32.0-36.0) g/dL RDW (12.0-15.0) % Plt Count (130-450) 10^3/uL MPV (7.9-10.8) fL Sodium (135-145) mmol/L Potassium (3.5-4.5) mmol/L Chloride (101-111) mmol/L Carbon Dioxide (21-32) mmol/L Anion Gap (6-13) BUN (6-20) mg/dL Creatinine (0.6-1.3) mg/dL Estimated GFR (MDRD) (>89) Glucose (74-104) mg/dL POC Whole Bld Glucose 128 (70-100) mg/dL Estimat Average Glucose 160 H (70-100) mg/dL Hemoglobin A1c % 7.2 H (4.27-6.07) % Calcium (8.5-10.3) mg/dL Magnesium (1.7-2.3) mg/dL Sepsis Event Note (H) Evaluation Possible source of Sepsis: positive Genitourinary Assessment/Plan Problem List (1) E coli bacteremia: (2) Sepsis: Qualifiers: Acute renal failure type: unspecified Sepsis acute organ dysfunction status: with acute organ dysfunction Sepsis type: sepsis due to unspecified organism Severe sepsis acute organ dysfunction type: acute renal failure S evere sepsis shock status: without septic shock Qualified Code(s): A41.9 - Sepsis, unspecified organism; R65.20 - Severe sepsis without septic shock; N17.9 - Acute kidney failure, unspecified (3) Acute pyelonephritis: Impression: The following assessment is for the above three diagnoses: Patient presented with tachypnea, leukocytosis, subjective rigors and chills, as well as altered mental status (confusion and lethargy). Source is urinary. UA was contaminated, but does show bacteriuria, WBCs. Urine culture does show E.Coli. She also has a history of frequent urinary tract infections in the past year. Abdomen/pelvis CT shows bilateral fat stranding around kidneys, suspicious for pyelonephritis. Previous urine susceptibilities show E. coli, sensitive to Rocephin. Blood cultures within 24 hours positive for E.Coli on 07/07 (also had coagulase negative Staphylococcus but this was likely a contaminant). In the ER, she received aztreonam, Flagyl, vancomycin. Will continue IV Rocephin. Will likely need at least four days of IV Rocephin, and then will transition to oral, pending clinical progress. Today is day 4 of IV antibiotics. Patient will likely be medically cleared tomorrow. Will transition to oral antibiotics for discharge. Plan currently is SNF. Patient should follow-up with urology in the outpatient setting due to frequent urinary tract infections. (4) Acute kidney injury: Impression: Resolved. Likely prerenal due to decreased p.o. intake versus ATN due to sepsis. Improved with gentle IVF rehydration. Trend BMP daily. CT abdomen/pelvis does not show any signs of any obstruction. Hold lisinopril at this time. (5) Insulin dependent diabetes mellitus: Impression: Patient had a hypoglycemic episode overnight. Lantus has been decreased to 15 units twice a day, as well as sliding scale insulin. Hold mealtime insulin today. Hold oral antihyperglycemics at this time. (6) Fibromyalgia: Impression: Continue duloxetine. (7) Asthma: Impression: Continue DuoNebs scheduled. Qualifiers: Asthma complication type: unspecified Asthma persistence: unspecified Asthma severity: unspecified severity Qualified Code(s): J45.909 - Unspecified asthma, uncomplicated (8) Physical deconditioning: Impression: PT consulted. At baseline, patient ambulates with a walker. She has home physical therapy, but feels weaker than her baseline at this time. (9) Abdominal pain: Impression: Patient had abdominal pain in the last few days, now resolved. It was located in the epigastrium, cramping in nature. Abdomen remains soft, and she continues to pass gas. CT abdomen pelvis reviewed from admission, negative for any acute process. She did have some mild to moderate constipation. Will continue with bowel regimen, MiraLAX and senna daily. Protonix started for potential acid reflux. Maalox as needed for abdominal discomfort ordered as well. Qualifiers: Abdominal location: unspecified location Qualified Code(s): R10.9 - Unspecified abdominal pain
[2025-07-09] MEDS: INSULIN GLARGINE-YFGN 300 UNIT/3 ML PEN SUBQ SCH (09:06)
[2025-07-10 06:45] LABS: HCT - HEMATOCRIT 35.4 % (37.0-47.0); HGB - HEMOGLOBIN 11.3 g/dL (12.0-16.0); MEAN PLATELET VOLUME 11.1 fL (7.9-10.8); PLT - PLATELET COUNT 234.0 10^3/uL (130-450); RED CELL DISTRIBUTION WIDTH 13.5 % (12.0-15.0)
[2025-07-10 06:50] LABS: BUN - BLOOD UREA NITROGEN 22.0 mg/dL (6-20); CARBON DIOXIDE - CO2 31.0 mmol/L (21-32); CREATININE 1.1 mg/dL (0.6-1.3); GFR - MDRD 48.0 (>89)
--- NOTE | 2025-07-10 09:49 | Discharge Summary ---
"Discharge Summary Admit Date: 07/06/25 Discharge Date: 07/10/25 Discharging Provider: Dr. Florina Ozuna Primary Care Provider: Gudelia Pelayo Code Status: Attempt Resuscitation Discharge [facility] Name: [facility] DIAGNOSES Discharge Diagnoses with Status of Each Condition: E. coli bacteremia, sepsis, acute pyelonephritispatient presented with tachypnea, leukocytosis, subjective rigors and chills, as well as confusion and lethargy. Urine culture and blood cultures x 2 were positive for E. coli. She received 5 days of IV antibiotics while here, and will be transition to levofloxacin to be completed for 2 additional days. Her sepsis has resolved, she has been afebrile for over 48 hours, leukocytosis has also resolved. We discussed extensively how she should follow-up with urologist or urogynecology in the outpatient setting with her history of frequent urinary tract infections, lichen sclerosis. Demonstrated understanding. Acute kidney injurylikely ATN due to sepsis, resolved with IV fluids. Insulin-dependent diabetes mellituscontinue Lantus 15 units twice a day, as well as metformin on discharge. Fibromyalgiacontinue duloxetine. Asthmacontinue DuoNebs. Physical deconditioningplan is for SNF placement and extensive physical therapy on discharge. Abdominal painlikely due to constipation, resolved after multiple bowel movements. Continue bowel regimen with MiraLAX and senna daily. HPI History of Present Illness: Patient is a 79-year-old female with a history of recurrent UTIs, insulin- dependent diabetes mellitus, lichen sclerosus who presents with fatigue, lethargy, fevers and chills. Per patient, starting , she noticed that she was feeling more more fatigued. She then developed nausea. She had a few episodes of nonbilious, nonbloody emesis. She described it as phlegm. She has had a sore throat, as well as a mild cough as well. She states that she has had urinary incontinence since she was 22. She denies any dysuria. She does endorse some flank pain, left worse than right. She then had ongoing rigors, fevers, as well as chills all throughout the weekend. She lives at assisted living, and pressed her call light, and never checked up on her, advised her to call EMS. In the ER, she was hypotensive down to 84/64. With fluids, this increased to 101/47. She is saturating in 4% room air. She was tachypneic at 28, heart rate was 92, and she has been afebrile. Lab work showed a leukocytosis with a white count of 13.9. Her creatinine was elevated at 1.9. Her baseline appears to be between 0.8-1. She also had a high and gap metabolic acidosis with a gap of 14, and a bicarbonate level of 18. Her glucose level was elevated at 299. Her lactic acid was within normal limits. UA x 2 was contaminated, although they were both straight catheterizations. Did show moderate bacteria, urine WBC, glucosuria. CT abdomen/pelvis showed mild bilateral perinephric fat stranding, pyelonephritis can not be excluded. Past medical history includes insulin-dependent diabetes mellitus. She also had a recent stress test with a manager income tax, but is unsure of the results. She has asthma, peripheral neuropathy, fibromyalgia, hypertension. Medications include Seroquel, Pantoloc, metformin, lisinopril, insulin Lantus, glipizide, Jardiance, duloxetine, atorvastatin, amlodipine, as well as Breztri inhlaer twice a day. Allergies include penicillin, which resulted in anaphylaxis. Surgical history includes cholecystectomy, appendectomy, right total knee replacement, hysterectomy. She denies any alcohol, tobacco, recreational drug use. She lives in assisted living. All her children and grandchildren are on the [facility]. She lost her about 9 years ago. She grew up in [place]. She ambulates with a walker. Due to continued hypotension, infection,uncontrolled diabetes, sepsis, patient will likely require at least a 2 midnight stay, and as such will be made inpatient. CONSULTS | PROCEDURES Consultations: PT, [place] Procedures: Chest x-rayno acute dyfimfe04/19. Abdomen/pelvis CTmild bilateral perinephric fat [id number]/17. HOSPITAL COURSE Hospital Course: Patient is a 79-year-old female with a history of frequent UTIs, fibromyalgia, insulin-dependent diabetes mellitus who presented with tachypnea, leukocytosis, subjective rigors and chills, as well as confusion and lethargy. Urine culture and blood cultures x 2 were positive for E. coli. She received 5 days of IV antibiotics while here, and will be transitioned to levofloxacin to be completed for 2 additional days. Her sepsis has resolved, she has been afebrile for over 48 hours. Leukocytosis has also resolved. We discussed extensively how she should follow-up with urologist or urogynecology in the outpatient setting with her history of frequent urinary tract infections, lichen sclerosis. Demonstrated understanding. While here, she was found to be significantly deconditioned. Physical therapy worked with her and reccomended SNF on discharge. ALLERGIES Allergies Allergy/AdvReac Type Severity Reaction Status Date / Time Penicillins Allergy Anaphylaxis Verified 07/06/25 07:00 tramadol Allergy Unknown Verified 07/06/25 07:00 morphine AdvReac Unknown Verified 07/06/25 07:00 MEDICATIONS Ambulatory Orders Medication Instructions Recorded Confirmed atorvastatin 40 mg tablet 40 mg PO QPM 11/10/18 insulin glargine 100 unit/mL (3 SQ BID 11/10/18 mL) subcutaneous pen (Lantus Solostar U-100 Insulin) meloxicam 15 mg tablet 15 mg PO QPM 11/10/18 albuterol sulfate 90 mcg/actuation 1 - 2 puff inhalati on Q4HR PRN 07/29/22 07/06/25 aerosol inhaler (Ventolin HFA) Shortness Of Air/Wheezi ng #1 ea metformin 500 mg 24 hr 500 mg PO BID 07/29/2207/06 tablet,extended release (gastric retention) propranolol 10 mg tablet 20 mg PO DAILY 07/29/2206/20 amlodipine 10 mg tablet 10 mg PO DAILY 07/06/2506/20 Held on 07/10/25. Instructions: Resume on 07/24/25. Blood pressure was low to normal while here - hold until recheck at PCPs. budesonide 160 mcg-glycopyr 9 2 inh inhalation BID 07/06/25 mcg-formot 4.8 mcg/actuation HFA inhaler (Breztri Aerosphere) duloxetine 60 mg capsule,delayed 60 mg PO DAILY 07/06/25 release empagliflozin 10 mg tablet 10 mg PO DAILY 07/06/25 (Jardiance) glipizide 10 mg tablet 10 mg PO DAILY 07/06/2506/20 lisinopril 40 mg tablet 40 mg PO DAILY 07/06/2506/20 Held on 07/10/25. Instructions: Resume on 07/24/25. Hold lisinopril until recheck of blood pressure at PCP office - normal to low here. vitamins with calcium 1 tab PO DAILY 07/06/25 07/06/25 no.72-iron 27 mg-folic acid 1 mg tablet ( Vitamins Plus Low Iron) quetiapine 50 mg tablet 50 mg PO HS 07/06/25 5 levofloxacin 750 mg tablet 750 mg PO DAILY 2 days #2 t abs 07/10/25 PHYSICAL EXAM AT DISCHARGE Vital Signs: Vital Signs x48h Temp Pulse Resp BP BP Pulse Ox 07/10/25 12:13 97.3 F L 80 18 121/63 93 07/10/25 07:43 97.9 F 85 20 114/57 L 94 General Appearance: positive No acute distress and Alert; negative Anxious Eyes Bilateral: positive Normal inspection, PERRL and EOMI ENT: positive ENT inspection nml, Pharynx nml and No signs of dehydration Neck: positive Nml inspection, Thyroid nml and No JVD Respiratory: positive Chest non-tender, No respiratory distress and Breath sounds nml; negative Wheezes or Rales Cardiovascular: positive No murmur, No gallop and Tachycardia; negative Systolic murmur Abdomen: positive Non-tender, No organomegaly and No distention; negative Guarding or Splenomegaly Back: positive Nml inspection; negative CVA tenderness (R) or CVA tenderness (L) Skin: positive Color nml, No rash, Warm and Dry Extremities: positive Non-tender, Full ROM, Nml appearance and Pedal edema (trace pitting edema ) Neurologic/Psychiatric: positive Oriented x3, Motor nml and Mood/affect nml LABS 07/10/25 06:08 07/10/25 06:08 SEPSIS Current Stage of Sepsis: Resolved Possible source of Sepsis: Genitourinary FOLLOW UP Follow Up: Follow with PCP. Follow-up with urologist or your software engineer. Follow-up with therapist. TIME SPENT Time Spent in Discharge (Minutes): 35 Discharge Plan Discharge Patient Disposition: DC/Xfer Condition: Stable Prescriptions: New levofloxacin 750 mg tablet 750 mg PO DAILY 2 Days Qty: 2 0RF Continued atorvastatin 40 MG tablet 40 mg PO QPM meloxicam 15 MG tablet 15 mg PO QPM Patient Comments: TK 1 T PO ONCE D PRF HIP PAIN insulin glargine [Lantus Solostar U-100 Insulin] 100 UNIT/ML insulin pen SQ BID Rx Instructions: 32 UNITS IN THE MORNING AND 25 UNITS IN THE EVENIG SQ every evening; metformin 500 MG tablet,ER delbert.retention 24 hr 500 mg PO BID propranolol 10 MG tablet 20 mg PO DAILY albuterol sulfate [Ventolin HFA] 200 PUFFS/18 GM HFA aerosol inhaler 1 - 2 puff inhalation Q4HR PRN (Reason: Shortness Of Air/Wheezing) Qty: 1 0RF Breztri Aerosphere 160-9-4.8 mcg/actuation HFA aerosol inhaler 2 inh INHALATION BID duloxetine 60 mg capsule,delayed release(DR/EC) 60 mg PO DAILY Jardiance 10 mg tablet 10 mg PO DAILY Patient Comments: TAKE 1 TABLET BY MOUTH DAILY glipizide 10 mg tablet 10 mg PO DAILY Vitamin Plus Low Iron 27 mg iron- 1 mg tablet 1 tab PO DAILY quetiapine 50 mg tablet 50 mg PO HS Held amlodipine 10 mg tablet 10 mg PO DAILY Hold Instructions: Resume on 07/24/25. Blood pressure was low to normal while here - hold until recheck at PCPs. lisinopril 40 mg tablet 40 mg PO DAILY Hold Instructions: Resume on 07/24/25. Hold lisinopril until recheck of blood pressure at PCP office - normal to low here. Activity Restrictions: Wt Bearing as Tolerated Diet: Diabetic Print Language: Slovenian Patient Instructions: Sepsis Stand Alone Forms: SNF Discharge, PCP List Follow-up Care: GUDELIA PELAYO NP [Primary Care Provider, Nurse Practitioner] Report called to and time (if no answer, doc. time of each call attempted): Warren kapadia RN 07/10/25 at 10:45am Vitals documented within 30 minutes of discharge?: Yes"
[2025-07-10 12:13] VITALS: BP 121/63; TEMP 97.3; O2SAT 93
== END 2025-07-10 12:13 | DRG 871 ==
LOC: ED 04:10 → MS2 13:32
PROVIDERS: ADMIT Internal Medicine; ATTEND Internal Medicine
DX: R79.89 Other specified abnormal findings of blood chemistry; R06.82 Tachypnea, not elsewhere classified; I95.9 Hypotension, unspecified; Z63.4 Disappearance and death of family member; R05.1 Acute cough; Z11.52 Encounter for screening for COVID-19; R05.9 Cough, unspecified; Z79.899 Other long term (current) drug therapy; Z88.0 Allergy status to penicillin; Z79.84 Long term (current) use of oral hypoglycemic drugs; A41.51 Sepsis due to Escherichia coli [E. coli]; L90.0 Lichen sclerosus et atrophicus; E87.20 Acidosis, unspecified; E11.9 Type 2 diabetes mellitus without complications; Z96.651 Presence of right artificial knee joint; E11.42 Type 2 diabetes mellitus with diabetic polyneuropathy; N10 Acute pyelonephritis; K59.00 Constipation, unspecified; J02.9 Acute pharyngitis, unspecified; Z79.4 Long term (current) use of insulin; Z90.49 Acquired absence of other specified parts of digestive tract; A41.9 Sepsis, unspecified organism; J45.909 Unspecified asthma, uncomplicated; Z90.710 Acquired absence of both cervix and uterus; I10 Essential (primary) hypertension; M79.7 Fibromyalgia; R00.0 Tachycardia, unspecified; R65.20 Severe sepsis without septic shock; N17.9 Acute kidney failure, unspecified; N17.0 Acute kidney failure with tubular necrosis